=== PATIENT | female | born 1975 | race Caucasian/White ===

== ENCOUNTER 2021-11-01 15:31 | Emergency (ER) | payer BC, SELFPAY ==
[2021-11-01 15:37] VITALS: BP 134/83; PULSE 77; RESP 18; TEMP 36.2; O2SAT 100; BMI 28.7
[2021-11-01 18:35] LABS: Appearance Urine Cloudy (Clear); Bilirubin Urine Negative (Negative); Blood Urine 1+ (Negative); Color Urine Yellow (Yellow); Glucose Urine Negative (Negative); Ketones Urine Negative (Negative); Leukocyte Esterase Urine 1+ (Negative); Nitrite Urine Negative (Negative); Protein Urine Negative (Negative); Urobilinogen Urine 0.2 (0.2-1.0)
[2021-11-01 18:51] LABS: Bacteria Urine Few; Squamous Epithelial Cell Urine Few (None-Few)
[2021-11-01] MEDS: 0.9 % SODIUM CHLORIDE 1000 ml 1,000 ML IV (18:52)
[2021-11-01 18:59] LABS: Lactate* 1.1 mmol/L (0.5-1.9)
[2021-11-01 19:03] LABS: Basophils Absolute Auto 0.04 K/uL (0.00-0.30); Basophils Percent Auto 0.6 % (0.0-3.0); Eosinophils Absolute Auto 0.09 K/uL (0.00-0.50); Eosinophils Percent Auto 1.3 % (0.0-7.0); Hematocrit 37.9 % (33.0-51.0); Hemoglobin* 12.8 gm/dL (12.0-16.0); Immature Granulocytes Abs Auto 0.03 K/uL (0.00-0.30); Lymphocytes Absolute Auto 1.86 K/uL (0.90-2.90); Lymphocytes Percent Auto 27.8 % (20-44); Mean Corpuscular HGB Conc 34 gm/dL (32-36); Mean Corpuscular Hemoglobin 30 pg (26-34); Mean Corpuscular Volume 89 fL (80-100); Monocytes Percent Auto 8.8 % (0.0-11.0); Neutrophils Absolute Auto 4.09 K/uL (1.7-7.0); Neutrophils Percent Auto 61.1 % (42.0-72.0); Platelet Count* 277 K/uL (140-440); RDW Coefficient of Variation % 13.2 % (11.5-15.5); Red Blood Count 4.25 m/uL (4.00-5.20)
[2021-11-01 19:21] LABS: Slide Review Reflex No
[2021-11-01 19:24] LABS: Chloride* 108 mmol/L (96-114); Potassium* 3.9 mmol/L (3.6-5.1); Sodium* 138 mmol/L (135-149)
[2021-11-01 19:26] LABS: Alanine Aminotransferase* 47 U/L (4-35); Alkaline Phosphatase* 85 U/L (40-150); Aspartate Amino Transferase* 55 U/L (12-35); Bilirubin Direct* 0.4 mg/dL (0.0-0.5); Bilirubin Total* 0.8 mg/dL (0.1-1.5); Total Protein* 7.3 g/dL (6.0-8.3)
[2021-11-01 19:27] LABS: Blood Urea Nitrogen* 10 mg/dL (5-24); Carbon Dioxide* 25 mmol/L (20-32); Creatinine* 0.6 mg/dL (0.5-1.5); Est. Creatinine Clearance* 99.02; Estimated Glomerular Filt Rate 110.65
[2021-11-01 19:28] LABS: Calcium* 8.5 mg/dL (8.4-10.6); Glucose* 102 mg/dL (60-115)
[2021-11-01 19:39] LABS: C Reactive Protein* < 0.5 mg/dL (0.5-1.0)
[2021-11-01 20:33] VITALS: BP 135/78; PULSE 79; RESP 16; TEMP 36.7; O2SAT 98
[2021-11-01 20:38] VITALS: BP 135/78; PULSE 78; RESP 16; TEMP 36.7
--- NOTE | 2021-11-01 23:54 | ED.GENADULT ---
HPI - General Adult General Date Seen: 11/01/21 Chief complaint: Post Op Complication Stated complaint: Post OP Complication, Hernia Time Seen by Provider: 11/01/21 18:18 Source: patient History of Present Illness HPI narrative: Patient is 46-year-old woman who is 1 week post umbilical hernia repair with mesh. She says that she did well postoperatively, did have a lot of pain on postop day 1 and 2 and took Percocet at that time. She has since discontinued the Percocet. Returned to work 4 days ago. She has been eating and drinking fine, initially had some trouble with constipation but has been having bowel movements. She just felt kind of bloated, has had some nausea and fatigue. Does feel like she has had more abdominal pain, although she has not needed pain medications. She has not had any fevers, has not had chills. No urinary symptoms. She stayed home from work today because of fatigue and nausea. She is not sure how she is supposed to feel at this point but became concerned that she is feeling worse rather than better. Has not noted any redness or drainage around the incision. Has an appointment by phone scheduled with Dr. Gunter next week. Related Data Home Medications Medication Instructions Recorded Confirmed No Known Home Medications 11/01/21 11/01/21 Allergies Allergy/AdvReac Type Severity Reaction Status Date / Time prochlorperazine AdvReac Mild Verified 11/01/21 15:37 [From Compazine] Review of Systems Status of ROS: Reports: 10 or more systems reviewed and unremarkable except as noted in History and below [facility] Social History Smoking Status: Former smoker Do you use any of these nicotine containing products: None Second hand tobacco smoke exposure: No How often do you have a drink containing alcohol: monthly or less How many standard drinks containing alcohol do you have on a typical day: 1 or 2 How often do you have six or more drinks on one occasion: Never AUDIT-C Alcohol total score: 1 Non-prescribed substance use: denies use service: No Exam Narrative: Exam Narrative: Vital signs as noted above. In general, an alert, nontoxic woman. Head: Normocephalic, atraumatic. Eyes: Pupils are equal reactive. Conjunctivae are normal. ENT: Mucous membranes are moist. Neck: Supple without lymphadenopathy. Heart: Regular rate and rhythm. No murmur or rub. Lungs: Clear bilaterally. No increased work of breathing, crackles or wheezes. Abdomen: Umbilical incision is intact, Steri-Strips in place. No erythema or drainage. Some induration felt underneath the umbilicus and some tenderness in that area. Otherwise the abdomen is nontender. Bowel sounds are present. No rebound guarding or rigidity. Extremities: Well perfused. No edema. No calf tenderness. Pulses intact. Neurologic: Patient is alert and oriented to person and place. Speech is fluent. Face is symmetric. Moves all extremities equally. Affect: Normal. Skin: Warm and dry. Well perfused. Const: Vital Signs, click to edit/add: Vital Signs - 24 hr 11/01/21 15:37 11/01/21 20:33 11/01/21 20:38 Temperature 97.1 F L 98.0 F 98.0 F Pulse Rate 78 Pulse Rate [Right Pulse Oximeter] 77 79 Respiratory Rate 18 16 16 Blood Pressure 135/78 Blood Pressure [Ri ght Upper Arm] 134/83 135/78 Pulse Oximetry 100 98 Documenting provider has reviewed patient's vital signs: yes Course Course Hospital Course: Patient felt that she has had some difficulty keeping up with fluids over the past few days, and felt she might benefit from IV fluids, so we did establish an IV and gave her a L of normal saline. She declined the need for anything for pain or nausea at this time. A urinalysis today was unremarkable, 2-5 red cells and 2-5 white cells. No ketones. Other labs were reassuring. Her white blood cell count is 6.7 with a normal diff. Hemoglobin is 12.8. CRP is less than 0.5. Lactate is normal. Liver function show mild elevations in her transaminases but is otherwise normal. Basic metabolic panel is entirely within normal limits. Considerations for her symptoms would include possible developing infection or abscess, seroma, hematoma, small-bowel obstruction, or unrelated intra-abdominal illness such as appendicitis, colitis, diverticulitis, cholecystitis, urinary tract infection, ovarian pathology etcetera. Given normal labs and an entirely benign abdominal exam with the exception of some tenderness around her incision, I am inclined to think that her symptoms are probably postoperative in nature. Therefore, I did talk with Dr. Craven who was on-call for General surgery. I reviewed the patient's exam findings as well as her labs with her. As her labs are entirely normal, she did not feel that imaging was needed at this time. We did discuss that she has some induration and tenderness around the surgical site, and because the patient has mesh in that area Dr. Craven did recommend being conservative and starting antibiotics. I have discussed all this with the patient. We have reviewed reasons to return, for example if she would develop worsening, pain, or new symptoms such as fever, vomiting, etcetera. I did tell her that we would like her to follow up with Dr. Gunter in person in clinic rather than by phone so that she can be re-evaluated. I prescribe some Zofran for her in case she has more difficulty with nausea with the doxycycline. Consultations Consultation #1: General surgery Vital Signs Vital signs: Initial Vital Signs Temperature 97.1 F L 11/01/21 15:37 Temperature Source Temporal Artery Scan 11/01/21 15:37 Pulse Rate 77 11/01/21 15:37 Pulse Rhythm 11/01/21 15:37 Respiratory Rate 18 11/01/21 15:37 Blood Pressure 134/83 11/01/21 15:37 Blood Pressure Mean 100 11/01/21 15:37 Blood Pressure Position Sitting 11/01/21 15:37 Pulse Oximetry 100 11/01/21 15:37 Oxygen Delivery Method 11/01/21 15:37 Vital Signs Temperature 97.1 F L 11/01/21 15:37 Pulse Rate 77 11/01/21 15:37 Respiratory Rate 18 11/01/21 15:37 Blood Pressure 134/83 11/01/21 15:37 Pulse Oximetry 100 11/01/21 15:37 Temperature 98.0 F 11/01/21 20:38 Pulse Rate 78 11/01/21 20:38 Respiratory Rate 16 11/01/21 20:38 Blood Pressure 135/78 11/01/21 20:38 Pulse Oximetry 98 11/01/21 20:33 Medical Decision Making Medical Records Medical records reviewed: Yes I reviewed the patient's medical records Lab Data Lab results reviewed: Yes I reviewed the patient's lab results Labs: Lab Results 11/01/21 11/01/21 11/01/21 Range/Units 18:16 18:51 18:51 WBC 6.70 (4.50-11.00) K/uL RBC 4.25 (4.00-5.20) m/uL Hgb 12.8 (12.0-16.0) gm/dL Hct 37.9 (33.0-51.0) % MCV 89 (80-100) fL MCH 30 (26-34) pg MCHC 34 (32-36) gm/dL RDW Coeff of [place]wood 13.2 (11.5-15.5) % Plt Count 277 (140-440) K/uL Neut % (Auto) 61.1 (42.0-72.0) % Lymph % (Auto) 27.8 (20-44) % [place] % (Auto) 8.8 (0.0-11.0) % Eos % (Auto) 1.3 (0.0-7.0) % Baso % (Auto) 0.6 (0.0-3.0) % Neut # (Auto) 4.09 (1.7-7.0) K/uL Lymph # (Auto) 1.86 (0.90-2.90) K/uL [place] # (Auto) 0.60 (0.00-0.90) K/UL Eos # (Auto) 0.09 (0.00-0.50) K/uL Baso # (Auto) 0.04 (0.00-0.30) K/uL Abs Immat Gran (auto) 0.03 (0.00-0.30) K/uL Sodium (135-149) mmol/L Potassium (3.6-5.1) mmol/L Chloride (96-114) mmol/L Carbon Dioxide (20-32) mmol/L BUN (5-24) mg/dL Creatinine (0.5-1.5) mg/dL Estimated Creat Clear Glucose (60-115) mg/dL Lactate (0.5-1.9) mmol/L Calcium (8.4-10.6) mg/dL Total Bilirubin 0.8 (0.1-1.5) mg/dL Direct Bilirubin 0.4 (0.0-0.5) mg/dL AST 55 H (12-35) U/L ALT 47 H (4-35) U/L Alkaline Phosphatase 85 (40-150) U/L C-Reactive Protein < 0.5 L (0.5-1.0) mg/dL Total Protein 7.3 (6.0-8.3) g/dL Albumin 4.0 (3.3-5.0) g/dL Urine Color Yellow (Yellow) Urine Appearance Cloudy A (Clear) Urine pH 5.0 (5.0-8.5) Ur Specific [place] 1.020 (1.000-1.030) Urine Protein Negative (Negative) Urine Glucose (UA) Negative (Negative) Urine Ketones Negative (Negative) Urine Blood 1+ A (Negative) Urine Nitrite Negative (Negative) Urine Bilirubin Negative (Negative) Urine Urobilinogen 0.2 (0.2-1.0) Ur Leukocyte Esterase 1+ A (Negative) Urine RBC 2-5 A (0-2) Urine WBC 2-5 (0-5) Ur Squamous Epith Cells Few (None-Few) Urine Bacteria Few A (None) 11/01/21 11/01/21 Range/Units 18:51 18:53 WBC (4.50-11.00) K/uL RBC (4.00-5.20) m/uL Hgb (12.0-16.0) gm/dL Hct (33.0-51.0) % MCV (80-100) fL MCH (26-34) pg MCHC (32-36) gm/dL RDW Coeff of [place]wood (11.5-15.5) % Plt Count (140-440) K/uL Neut % (Auto) (42.0-72.0) % Lymph % (Auto) (20-44) % [place] % (Auto) (0.0-11.0) % Eos % (Auto) (0.0-7.0) % Baso % (Auto) (0.0-3.0) % Neut # (Auto) (1.7-7.0) K/uL Lymph # (Auto) (0.90-2.90) K/uL [place] # (Auto) (0.00-0.90) K/UL Eos # (Auto) (0.00-0.50) K/uL Baso # (Auto) (0.00-0.30) K/uL Abs Immat Gran (auto) (0.00-0.30) K/uL Sodium 138 (135-149) mmol/L Potassium 3.9 (3.6-5.1) mmol/L Chloride 108 (96-114) mmol/L Carbon Dioxide 25 (20-32) mmol/L BUN 10 (5-24) mg/dL Creatinine 0.6 (0.5-1.5) mg/dL Estimated Creat Clear 99.02 Glucose 102 (60-115) mg/dL Lactate 1.1 (0.5-1.9) mmol/L Calcium 8.5 (8.4-10.6) mg/dL Total Bilirubin (0.1-1.5) mg/dL Direct Bilirubin (0.0-0.5) mg/dL AST (12-35) U/L ALT (4-35) U/L Alkaline Phosphatase (40-150) U/L C-Reactive Protein (0.5-1.0) mg/dL Total Protein (6.0-8.3) g/dL Albumin (3.3-5.0) g/dL Urine Color (Yellow) Urine Appearance (Clear) Urine pH (5.0-8.5) Ur Specific [place] (1.000-1.030) Urine Protein (Negative) Urine Glucose (UA) (Negative) Urine Ketones (Negative) Urine Blood (Negative) Urine Nitrite (Negative) Urine Bilirubin (Negative) Urine Urobilinogen (0.2-1.0) Ur Leukocyte Esterase (Negative) Urine RBC (0-2) Urine WBC (0-5) Ur Squamous Epith Cells (None-Few) Urine Bacteria (None) Discharge Plan Discharge Clinical Impression: Post-op pain Patient Disposition: Home, Self-Care Condition: Stable Instructions: Pain Management After Surgery (DC) Additional Instructions: Antibiotic as prescribed. Ibuprofen and Tylenol as needed, Zofran if needed for nausea. Follow-up with Dr. Gunter in clinic next week in person for recheck. Return to the emergency department for worsening symptoms such as more severe pain, vomiting, fever, or other new symptoms. Prescriptions: No Action No Known Home Medications 0RF Follow Up/Referrals: Provider,Not a Local [Primary Care Provider] - Stand Alone Forms: [employer] Info Instructions
== END 2021-11-01 20:40 | disposition home or self-care (01) ==
PROVIDERS: Emergency Provider Emergency Medicine
DX: G89.18 Other acute postprocedural pain (principal); R11.0 Nausea
CPT/HCPCS: 96360; 36415; 80048; 80076; 81001; 81003; 81015; 83605; 85025; 86140; 87086; 99284; J7030

== ENCOUNTER 2022-02-08 23:36 | Outpatient (CLI) | payer BC, SELFPAY ==
--- OUTSIDE RECORDS SUMMARY | 2022-02-16 10:53 | XMS_ITS | Encounter Summary ---
:1975 Author Organization [facility] Address [address] [place] [address] Care Team Providers Name Role Phone Unavailable Primary Care Provider Unavailable Reason for Referral Outpatient (Routine) - Closed Specialty Diagnoses / Procedures Referred By Contact Refer red To Contact Video Medicine Diagnoses Dysphonia Rst [address] [address] Referral ID Status Reason Start Date Expiration Date Visits Requ ested Visits Authorized [id number] Closed 06/26/2020 06/26/2021 1 1 Scheduling Instructions Please call patient to schedule a follow up appointment in 2 weeks. Thanks TRUCTION LINEMAN Reason for Visit Outpatient (Routine) - Closed Specialty Diagnoses / Procedures Referred By Contact Refer red To Contact Video Medicine Diagnoses Dystonia R[address] [address] Referral ID Status Reason Start Date Expiration Date Visits Requ ested Visits Authorized [id number] Closed 06/23/2020 06/23/2021 1 1 Encounter Details Date Type Department Care Team Description 06/26/2020 Telemedicine Department of Brisa Siddiqi (Latoya sanchez Dx); Otorhinolaryngology in [place], [place] CCC-PENETRATION TESTER [address] [place] [address] [place] [address] [place], [place] [phone] Social History Tobacco Use Types Packs/Day Years [...] more drinks on one Never 06/26/2020 occasion? Social Isolation Answer Date Recorded In a typical week, how many times do you More than three viry es a week 06/26/2020 talk on the phone with family, friends, or neighbors? How often do you get together with friends Once a week 06/26/2020 or relatives? How often do you attend confucianist or 1 to 4 times per year 06/06 [employer] services? Do you belong to any clubs or No 06/26/2020 organizations such as confucianist groups, unions, fraternal or athletic groups, or [...] of this encounter Progress Notes Alyssa Siddiqi CCC-PENETRATION TESTER - 06/26/2020 9:30 AM CST Referring provider Plan of care: Patient will be seen for 3-5 sessions per week for six weeks with goals of improving phonatory quality for functional communication in activities of daily living. Consult/treatnent conducted via real-time audio/video technology by Alyssa Siddiqi M.S.,DAVID-PENETRATION TESTER in [facility] to patient in home for follow up . This Video Visit was performed during the COVID- emergency, when many states had issued [id number] at home orders. In-person treatment was unavailable. [...] plan; patient expressed understanding of the content. TRUCTION LINEMAN documented in this encounter Plan of Treatment Scheduled Referrals Name Type Priority Associated Diagnoses Order S chedule Video anyplace Outpatient Referral Routine Dysphonia Expect ed: visit 07/10/2020 (Approximate), Expires: 06/26/2023 documented as of this encounter Visit Diagnoses Diagnosis Dysphonia - Primary Dystonia documented in this encounter
--- OUTSIDE RECORDS SUMMARY | 2022-02-16 10:53 | XMS_ITS | Encounter Summary ---
:1975 Author Organization [place] Address [address] [place] [address] Support Name Relationship Address Phone Leanne Wu Unavailable Unavailable [phone] [place] [address] Team Providers Name Role Phone [facility] Primary Care Provider Rafaela Higuera PA-C Unavailable [phone] Encounter Details Date Type Department Care Team Description 01/04/2021 Travel Social History Tobacco Use Types Packs/Day Years Used Date Smoking Tobacco: Never Smokeless Tobacco: Never Alcohol Use Standard Drinks/Week Comments Yes 0 (1 standard drink = 0.6 oz pure alcoho l) rare Sex Assigned at Date Recorded Not on [...] documented as of this encounter Care Teams Linux Server Engineer Relationship Specialty Start Date End Date Clinic - [facility] PCP - General 09/16/18 [address] [place] [address] Rafaela Higuera PA-C Assigned PCP 12/31/20 01/06/21 [address] [place] [address] documented as of this encounter
--- OUTSIDE RECORDS SUMMARY | 2022-02-16 10:53 | XMS_ITS | Encounter Summary ---
:1975 Author Organization [place] Address [address] [facility] [place] [address] Care Team Providers Name Role Phone [facility] Primary Care Provider Rafaela Higuera PA-C Unavailable [phone] Encounter Details Date Type Department Care Team [...] documented as of this encounter Care Teams Filenet Developer Relationship Specialty Start Date End Date Clinic - [facility] PCP - General 09/16/18 [address] [place] [address] Rafaela Higuera PA-C Assigned PCP 12/31/20 01/06/21 [address] [facility] [place] [address] documented as of this encounter
--- OUTSIDE RECORDS SUMMARY | 2022-02-16 10:53 | XMS_ITS | Encounter Summary ---
:1975 Author Organization [place] Address [address] [facility] [place] [address] Care Team Providers Name Role Phone [facility] Primary Care Provider Asha Urbina PA-C Unavailable [phone] Reason for Visit Reason Comments Hernia Encounter Details Date Type Department Care Team Description 09/15/2020 Office Visit [facility] Ingrid Gillespie Fa tigue, unspecified type (Primary Dx); [facility] [place] KINDERGARTEN INSTRUCTIONAL ASSISTANT Depression, unspecified depression type; [address] [place] [address] Iron d eficiency anemia, unspecified iron deficiency anemia type; [place] [address] Umbilical hernia without obstruction and without gangrene [place], [place] [id number] [phone] Social History Tobacco Use Types Packs/Day Years [...] No follow-ups on file. Ingrid Gillespie CNP [facility] Pema is a 45 year old who [...] Ferritin 6 (L) 8 - 252 09/18/2020 [facility] ng/mL 1:21 PM CDT [facility] Specimen Anatomical Collection Method Collection Time Receive d Time (Source) Location / / Volume Laterality Blood 09/15/2020 1:47 PM 1:48 CDT PM CDT Ingrid Gillespie KINDERGARTEN INSTRUCTIONAL ASSISTANT LAB - BLOOD ORDERABLES Performing Organization Address City/State/ZIP Code Phon e Number [facility] [address] [place] [address] Vitamin D Deficiency (09/15/2020 1:47 PM CDT) athologist Signature Vitamin D 23 20 - 75 09/18/2020 [facility] Deficiency ug/L 4:50 PM CDT [facility] Comment: Season, race, dietary intake, and treatm ent affect the concentration of 77-aptvisi-Jvqbpkb D. Values may decreas e during winter [...] 1 1:48 CDT PM CDT Ingrid Gillespie LYUDMILA LAB - BLOOD ORDERABLES Performing Organization Address [facility] e Number [address] Follicle stimulating hormone (09/15/2020 1:47 PM CDT) P athologist Signature FSH 7.2 IU/L 09/18/2020 [facility] 3:17 PM CDT [facility] Comment: FSH Reference Range Female: Follicular ?2.5-10.2 ?Mid-cycle ? 3.4-33.4 ?Luteal ?1.5-9.1 ?Postmenopausal ??23.0-116.3 Specimen Anatomical Collection Method Collection Time Receive d Time (Source) Location / / Volume Laterality Blood 09/15/2020 1:47 PM 1 1:48 CDT PM CDT Ingrid Julia Beaversannemarie COREAS LAB - BLOOD ORDERABLES Performing Organization Address [facility] e Number [address] (ABNORMAL) CBC with platelets (09/15/2020 1:47 PM CDT) Analysis Performed At Patho logist Time Signature WBC 7.1 4.0 - 11.0 09/15/2020 [facility] 10e9/L 2:04 PM CDT [facility] RBC Count 4.26 3.8 - 5.2 09/15/2020 [facility] 10e12/L 2:04 PM CDT [facility] Hemoglobin 10.7 (L) 11.7 - 09/15/2020 [facility] 15.7 g/dL 2:04 PM CDT [facility] Hematocrit 33.8 (L) 35.0 - 09/15/2020 [facility] 47.0 % 2:04 PM CDT [facility] MCV 79 78 - 100 09/15/2020 [place] fl 2:04 PM CDT [facility] [place] MCH 25.1 (L) 26.5 - 09/15/2020 [facility] 33.0 pg 2:04 PM CDT [facility] MCHC 31.7 31.5 - 09/15/2020 [facility] 36.5 g/dL 2:04 PM CDT [facility] RDW 16.9 (H) 10.0 - 09/15/2020 [facility] 15.0 % 2:04 PM CDT [facility] [place] Platelet Count 269 150 - 450 09/15/2020 [place] 10e9/L 2:04 PM CDT [facility] [place] Specimen Anatomical Collection Method Collection Time Receive d Time (Source) Location / / Volume Laterality Blood 09/15/2020 1:47 PM 1 1:48 CDT PM CDT Ingrid Gillespie CNP LAB - BLOOD ORDERABLES Performing Organization Address City/[facility]/ZIP Code Phon e Number [facility] [place] [address] TSH with free T4 reflex (09/15/2020 1:47 PM CDT) athologist Signature TSH 1.28 0.40 - 4.00 09/18/2020 [facility] mU/L 3:12 PM CDT HOSPITAL Specimen Anatomical Collection Method Collection Time Receive d Time (Source) Location / / Volume Laterality Blood 09/15/2020 1:47 PM 1 1:48 CDT PM CDT Ingrid Gillespie CNP LAB - BLOOD ORDERABLES Performing Organization Address City/State/ZIP Code Phon e Number [facility] [address] [place], [place] [address] [facility] [address] [place], [place] [address] [phone] documented in this encounter Visit Diagnoses Diagnosis Fatigue, unspecified type - Primary Depression, unspecified depression type Iron deficiency anemia, unspecified iron deficiency anemia type Umbilical hernia without obstruction and without gangrene documented in this encounter Additional Health Concerns Assessment Noted Time PHQ-9 Depression Total Score: 12 09/17/2018 1:32 PM CD T documented as of this encounter Care Teams Pbx Supervisor Relationship Specialty Start Date End Date Clinic - [facility] PCP - General 09/16/18 [address] [place] [address] Asha Urbina PA-C Assigned PCP 08/13/20 09/27/20 [address] [place] [address] documented as of this encounter
--- OUTSIDE RECORDS SUMMARY | 2022-02-16 10:53 | XMS_ITS | Encounter Summary ---
:1975 Author Organization [place] Address [address] [facility] [address] Care Team Providers Name Role Phone [facility] Primary Care Provider Asha Urbina PA-C Unavailable [phone] Encounter Details Date Type Department Care Team Description 08/24/2020 [facility] [address] [place] [address] Social History Tobacco Use Types Packs/Day [...] documented as of this encounter Care Teams It Sales Consultant Relationship Specialty Start Date End Date [facility] PCP - General 09/16/18 [address] [place] [address] Asha Urbina PA-C Assigned PCP 08/13/20 09/27/20 [address] [place] [address] documented as of this encounter
--- OUTSIDE RECORDS SUMMARY | 2022-02-16 10:53 | XMS_ITS | Encounter Summary ---
:1975 Author Organization [place] Address [address] [facility] [place] [address] Care Team Providers Name Role Phone [facility] - [facility] Primary Care Provider Rafaela Higuera PA-C Unavailable [phone] Reason for Visit Reason Comments Consult Hernia Encounter Details Date Type Department Care Team Description 01/05/2021 Office Visit [facility] Luis E Mtz, Umbi lical hernia Surgery Clinic without obstruction [place] [address] and without gangrene [address] [place] [address] [phone] Social History Tobacco Use Types Packs/Day Years Used Date Smoking Tobacco: Never Smokeless Tobacco: Never Tobacco Cessation: Counseling Given: Yes Alcohol Use [...] Other Topics Concern ??? Parent/sibling w/ CABG, CA or angioplasty before 65F 55M? No Social [...] Gatherings with Friends and Family: ??? Attends Rastafarian Services: ??? Active Member of Clubs or [...] documented as of this encounter Care Teams Laborer Orchard Relationship Specialty Start Date End Date Clinic - [facility] PCP - General 09/16/18 [address] [place] [address] Rafaela Higuera PA-C Assigned PCP 12/31/20 01/06/21 [address] [address] documented as of this encounter
--- OUTSIDE RECORDS SUMMARY | 2022-02-16 10:53 | XMS_ITS | Encounter Summary ---
:1975 Author Organization [place] Address [address] [facility] [place] [address] Care Team Providers Name Role Phone [facility] Primary Care Provider Lily Rincon [...] documented as of this encounter Care Teams Deputy Head Relationship Specialty Start Date End Date Clinic - [facility] PCP - General 09/16/18 [address] [place] [address] Lily Rincon PA-C Assigned PCP 12/19/19 08/12/[address] [place] [address] [place] [address] documented as of this encounter
--- OUTSIDE RECORDS SUMMARY | 2022-02-16 10:53 | XMS_ITS | Encounter Summary ---
:1975 Author Organization [facility] Address [address] [place] [address] Care Team Providers Name Role Phone Unavailable Primary Care Provider Unavailable Reason for Referral Speech Pathology (Routine) - Closed Specialty Diagnoses / Procedures Referred By Contact Refer red To Contact Diagnoses Dystonia [facility] Procedures FOOD CRITIC Voice evaluation P.A.-C. [address] [place] [address] Referral ID Status Reason Start Date Expiration Date Visits Requ ested Visits Authorized [id number] Closed 06/23/2020 06/23/2021 1 1 ING CLEANER Reason for Visit Appointment Request (Routine) - Closed Specialty Diagnoses / Procedures Referred By Contact Refer red To Contact Otorhinolaryngology Diagnoses Laryngitis Referral ID Status Reason Start Date Expiration Date Visits Requ ested Visits Authorized [id number] Closed 06/20/2020 06/20/2021 1 1 Encounter Details Date Type Department Care Team Description 06/23/2020 Comprehensive Visit Department of Nicky Arredondo ia Otorhinolaryngology in [place], (Prim pearl Dx) [place], [place] ESME, P.A.-CXiao [address] [facility] [address] [place] [address] [place], [place] [phone] Social History Tobacco Use Types Packs/Day Years [...] or relatives? How often do you attend baptist or 1 to 4 times per year 06/06 yazidi services? Do you belong to any clubs or No 06/26/2020 organizations such as baptist groups, unions, fraternal or athletic groups, or [...] to speak. 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 My wonderful colleague Alyssa iSddiqi has agreed to see her today and [...] patient and in same day care coordination ING CLEANER documented in this encounter Plan of Treatment Not on filedocumented as of this encounter Visit Diagnoses Diagnosis Dysphonia - Primary documented in this encounter
--- OUTSIDE RECORDS SUMMARY | 2022-02-16 10:53 | XMS_ITS | Encounter Summary ---
:1975 Author Organization [place] Address [address] [facility] [place] [address] Care Team Providers Name Role Phone [facility] Primary Care Provider Asha UrbinaC Unavailable [phone] Ingrid Gillespie CNP Unavailable Rafaela Higuera-C Unavailable Ingrid Gillespie CNP Unavailable Luis E Mtz MD Unavailable Meg Vigil-C Unavailable [phone] Encounter Details Date Type Department Care Team Description 08/25/2020 Documentation Only INTERFACED REPORT Unknown, Provider Social [...] documented as of this encounter Care Teams Transplant Rn Relationship Specialty Start Date End Date Clinic - [facility] PCP - General 09/16/18 Daily [address] [place] [address] Asha Urbina Assigned PCP 08/13/20 09/27/20 JEREMY Dumont [address] [place] [address] Ingrid Gillespie CNP Assigned PCP 09/28/20 12/30/20 [address] [place], [place] [id number] Rafaela Higuera Assigned PCP 12/31/20 1 JEREMY Ugarte [address] [facility] [address] [place], [place] [address] Ingrid Gillespie CNP Assigned PCP 01/28/21 [address] [place], [place] [id number] Luis E Mtz MD Assigned Surgical Provider 01/14/[address] [place], [place] [id number] Meg Vigil, Assigned PCP 01/07/21 01/27/21 JEREMY [address] [place], [place] [id number] documented as of this encounter
--- OUTSIDE RECORDS SUMMARY | 2022-02-16 10:53 | XMS_ITS | Clinical Summary ---
:1975 Author Organization [facility] Address [address] [place] [address] Care Team Providers Name Role Phone Unavailable Primary Care Provider Unavailable Source Comments Patient records contain information from all sites at [facility]. For routine questions regarding patient records, call [phone] during business hours, M-F 8:00 AM - 5:00 PM Central Time. Record requests for emergency care only can be directed to [phone] at any time.[facility] Medications Medication Sig Dispensed Refills Start Date [...] or relatives? How often do you attend jehovah's witness or 1 to 4 times per year 06/06 cheondoism services? Do you belong to any clubs or No 06/26/2020 organizations such as jehovah's witness groups, unions, fraternal or athletic groups, or [...] Dates Phone Address Type / Group [facility] [id number] [phone] [address] [address] [address] [facility] [address] [place] [address] [phone] (Home) [place] [address]
--- OUTSIDE RECORDS SUMMARY | 2022-02-16 10:53 | XMS_ITS | Encounter Summary ---
:1975 Author Organization [place] Address [address] [facility] [place] [address] Care Team Providers Name Role Phone [facility] Primary Care Provider Ingrid Gillespie CNP Unavailable Encounter Details Date Type Department Care [...] documented as of this encounter Care Teams Harness Repairer Relationship Specialty Start Date End Date Clinic - [facility] PCP - General 09/16/18 [address] [place] [address] Ingrid Gillespie, LYUDMILA Assigned PCP 09/28/20 12/30/20 [address] [place] [address] documented as of this encounter
--- OUTSIDE RECORDS SUMMARY | 2022-02-16 10:53 | XMS_ITS | Encounter Summary ---
:1975 Author Organization [place] Address [address] [facility] [place] [address] Care Team Providers Name Role Phone [facility] [place] [facility] Primary Care Provider Asha Urbina PA-C Unavailable [phone] Encounter Details Date Type Department Care Team [...] documented as of this encounter Care Teams Occupational Therapy Department Chair Relationship Specialty Start Date End Date [facility] [place] [facility] PCP - General 09/16/18 [address] [place], [place] [phone] Asha Urbina PA-C Assigned PCP 08/13/20 09/27/20 [address] [place], [place] [id number] documented as of this encounter
--- OUTSIDE RECORDS SUMMARY | 2022-02-16 10:53 | XMS_ITS | Encounter Summary ---
:1975 Author Organization [place] Address [address] [facility] [place] [address] Care Team Providers Name Role Phone [facility] Primary Care Provider Ingrid Gillespie CNP Unavailable Luis E Mtz MD Unavailable Encounter Details Date Type Department Care Team Description 06/13/2021 Travel Social History Tobacco Use Types Packs/Day Years Used Date Smoking Tobacco: Never Smokeless Tobacco: Never Alcohol Use Standard Drinks/Week Comments Yes 0 (1 standard drink = 0.6 oz pure alcoho l) rare Sex Assigned at Date Recorded Not on file COVID-19 Exposure Response Date Recorded In the last month, have you been in contact with No / Unsure 06/13/2021 6:08 PM FLAP LINING BINDER someone who was confirmed or suspected to have Coronavirus / COVID-19? documented as of this encounter Plan of Treatment Not on filedocumented as of this encounter Visit Diagnoses Not on filedocumented in this encounter Additional Health Concerns Assessment Noted Time PHQ-9 Depression Total Score: 12 09/17/2018 1:32 PM CD T documented as of this encounter Care Teams Cub Reporter Relationship Specialty Start Date End Date [facility] PCP - General 09/16/18 [place] [address] [address] Ingrid Gillespie, LYUDMILA Assigned PCP 01/28/[address] [place] [phone] Luis E Mtz MD Assigned Surgical Provider 01/14/21 Alivia [facility] [address] [place] [address] documented as of this encounter
--- OUTSIDE RECORDS SUMMARY | 2022-02-16 10:53 | XMS_ITS | Encounter Summary ---
:1975 Author Organization [place] Address [address] [facility] [place] [address] Support Name Relationship Address Phone Leanne Wu Unavailable Unavailable [phone] [place], [facility] Team Providers Name Role Phone [facility] Primary Care Provider Ingrid Gillespie HOMEBIRTH MIDWIFE Unavailable Reason for Referral Diagnostic Imaging Ultrasound (Routine) - Closed Specialty Diagnoses / Procedures Referred By Contact Refer red To Contact Diagnoses DUB (dysfunctional uterine bleeding) Meg Vigil Procedures US Pelvic Complete with Transvaginal JEREMY Christopher [address] [place] [address] Referral ID Status Reason Start Date Expiration Date Visits Requ ested Visits Authorized [id number] Closed 12/28/2020 12/28/2021 1 1 onsultation (Routine) - Closed Specialty Diagnoses / Procedures Referred By Contact Refer red To Contact Medical Oncology Diagnoses Iron deficiency anemia due to chronic blood loss Meg Vigil Rh Ca ncer Cl cc JEREMY Christopher [address] Daily [place] [address] [address] [facility] [place] [address] Phone: Fax: Referral ID Status Reason Start Date Expiration Date Visits Requ ested Visits Authorized [id number] Closed 12/28/2020 12/28/2021 1 1 onsultation (Routine) - Closed Specialty Diagnoses / Procedures Referred By Contact Refer red To Contact Surgery Diagnoses Umbilical hernia without obstruction and without gangrene Meg Vigil Surgical Consult JEREMY Christopher [address] [facility] [address] [facility] [address] [place] [address] [place] [address] Phone: Fax: Referral ID Status Reason Start Date Expiration Date Visits Requ ested Visits Authorized [id number] Closed 12/28/2020 12/28/2021 1 1 Reason for Visit Reason Comments Fatigue Encounter Details Date Type Department Care Team Description 12/28/2020 Office Visit [facility] Meg Vigil Fatigu e, unspecified type (Primary Dx); Clinic [place] JEREMY Christopher Fever, unspecified fever cause; [facility] [address] [place] [address] a [facility] S [facility] (dysfunctional uterine bleeding); [place], [place] [address] Iron deficiency anemia due to chronic bl ood loss; [address] Umbilical hernia without obstruction and without gangrene; [phone] Lipid scr eening Social History Tobacco Use [...] since that time. Covid19 negative. Was [place] sister for wedding so considered alternative etiology including rule out lyme. Reports main residualsymptom is fatigue/achiness (about 50% better) and this could be exacerbated by chronic underlying iron deficiency anemia. Unfortunately continues to suffer with DUB despite previous trials with her BOILING OFF WINDER of OCPs and uterine ablation. Is supposed to be on iron supplementation, but admits she never takes this due to intolerance (nausea and reports makes her feel presyncopal vs gives her bad anxiety that she will have a negative reaction). Repeat labs for stability, but discussed picking up where BOILING OFF WINDER left off and will repeat pelvic US [...] week (around 01/04/2021). Meg Vigil PA-C [facility] Andrea Mcadams is a 45 year old who [...] nose or sore throat. Had COVID in Nov and received both immunizations since, but felt [...] for duration. Had uterine ablation completed 09/2019 [facility] BOILING OFF WINDER. Unfortunately, tells me this didn't work and [...] not gone back to recheck things with BOILING OFF WINDER yet. Sochx: daughter in and out of the hospital with anorexia; gets hospitalized requires feeding tube. 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 For additional lab test information, [email or web address] is an excellent reference. Please contact the clinic at with any further questions or concerns. Sincerely, Meg Vigil PA-C [facility] documented in this encounter Plan of Treatment Scheduled Orders Name Type Priority Associated Diagnoses Order S chedule US Pelvic Complete with Imaging Routine DUB (dysfunctiona l Expected: 12/28/2020 Transvaginal uterine bleeding) (Approxima te), Expires: 2021 Scheduled Referrals Name Type Priority Associated Diagnoses Order S chedule Adult General Surg Referral Routine Umbilical hernia [...] direct LDL Fasting (12/28/2020 5:52 PM CDT) P athologist Signature Cholesterol 176 <200 mg/dL 12/29/2020 [...] City/State/ZIP Code Phon e Number [facility] [place], [place] [phone] [place] [facility] [address] [place] [address] Lab (no room number, 1st floor of clinic) [facility] [place], [place] [phone] [facility] [address] [[email or web address]] [facility] [address] Lab (no room number, 1st floor of clinic) Anti Nuclear Ramone IgG by IFA with Reflex (12/28/2020 5:52 PM CDT) [facility] Method Time Signature JAVIER interpretation Negative Negative 01/01/2021 [facility] 1:53 PM CDT SPECIALTY CORE Comment: Negative: ?<1:40 Borderline Positive: ?? 1:40 - 1:80 Positive: ?>1:80 Specimen Anatomical Collection Method / Collection Time Recei romeo Time (Source) Location / Volume Laterality Blood STRUCTURE OF RIGHT Venipuncture / 12/28/2020 5:52 08/2 10/2020 5:53 UPPER LIMB / Unknown PM CDT PM CDT Unknown Meg Vigil PA-C LAB - BLOOD ORDERABLES Performing Organization Address City/[facility]/ZIP Code Phon e Number [place] [address] CORE/PROT/ENDO Core/Prot/Endo [address] [facility], Room 3-[address] [facility] SPECIALTY [facility] [place], [place] [phone] Lab [phone], [facility] [address] [facility], Room L271-5 Rheumatoid factor (12/28/2020 5:52 PM CDT) P athologist Signature Rheumatoid <7 <20 IU/mL 01/01/2021 [facility] Factor 9:24 AM CDT SPECIALTY CORE Specimen Anatomical Collection Method / Collection Time Recei romeo Time (Source) Location / Volume Laterality Blood STRUCTURE OF RIGHT Venipuncture / 12/28/2020 5:52 12/04 5:53 UPPER LIMB / Unknown PM CDT PM CDT Unknown Meg Vigil PA-C LAB - BLOOD ORDERABLES Performing Organization Address City/[facility]/ZIP Code Phon e Number [place] [address] CORE/PROT/ENDO Core/Prot/Endo [address] [facility], Room 3-580 [facility] SPECIALTY [facility] [place] [place] Lab [address], [facility] [address] [facility], Room L271-5 TSH with free T4 reflex (12/28/2020 5:52 PM CDT) P athologist Signature TSH 1.50 0.40 - 4.00 [...] City/State/ZIP Code Phon e Number [facility]AT[facility] [place], [place] [phone] [place] [facility] [address] Lab (no room number, 1st floor of clinic) [facility] [place], [place] [phone] [facility] [address] [[email or web address]] [facility] [address] Lab (no room number, 1st floor of clinic) Lyme Disease Ramone with reflex to WB Serum (12/28/2020 5:52 PM CDT) P athologist Signature Lyme Disease 0.19 <0.90 01/01/2021 [facility] Antibodies 1:32 PM CDT SPECIALTY CORE Total [...] STRUCTURE OF RIGHT Venipuncture / 12/28/2020 5:52 08/10/2020 5:53 UPPER LIMB / Unknown PM CDT PM CDT Unknown Meg Vigil PA-C LAB - BLOOD ORDERABLES Performing Organization Address City/State/ZIP Code Phon e Number [place] [address] CORE/PROT/ENDO Core/Prot/Endo 500 [facility] J Building, Room 3-580 [facility] SPECIALTY CORE [facility] [place] Lab [address], [place] [address] [facility], Room L271-5 CRP, inflammation (12/28/2020 5:52 PM CDT) Analysis Performed At Patho logist Time Signature CRP Inflammation <2.9 0.0 - 8.0 12/29/2020 [facility] Y mg/L 11:33 PM CDT Specimen Anatomical Collection Method / Collection Time Recei romeo Time (Source) Location / Volume Laterality Blood STRUCTURE OF RIGHT Venipuncture / 12/28/2020 5:52 08/10/2020 5:53 UPPER LIMB / Unknown PM CDT PM CDT Unknown Meg Vigil PA-C LAB - BLOOD ORDERABLES Performing Organization Address City/[facility] [place]on [place] [address] [phone] Lab 500 [facility] Building, Room 3-580 [place] [address], Lab [facility] 500 [facility], Room 3580 ESR: Erythrocyte sedimentation rate (12/28/2020 [...] LAB - BLOOD ORDERABLES Performing Organization Address [facility] Phon e Number RV [facility]ORY [facility] [place] [address] [phone] [facility] [address] [place] [address] S. E. Lab (no room number, 1st floor of clinic) [place] [address], [facility] [address] [place] [address] S. E. Lab (no room number, 1st [...] STRUCTURE OF RIGHT Venipuncture / 12/28/2020 5:52 08/10/2020 5:53 UPPER LIMB / Unknown PM CDT PM CDT Unknown Meg Vigil PA-C LAB - BLOOD ORDERABLES Performing Organization Address City/[facility]/ZIP [facility] Phon e Number [facility] [place], [place] [phone] [place] [facility] [address] [place] [address] Lab (no room number, 1st floor of clinic) [facility] [place], [place] [phone] [facility] [address] [[email or web address]] [facility] [address] Lab (no room number, 1st floor of clinic) (ABNORMAL) Ferritin (12/28/2020 5:52 PM CDT) P athologist Signature Ferritin 6 (L) 8 - 252 12/29/2020 [facility] ng/mL 2:36 PM CDT Specimen Anatomical Collection Method / Collection Time Recei romeo Time (Source) Location / Volume Laterality Blood STRUCTURE OF RIGHT Venipuncture / 12/28/2020 5:52 08/10/2020 5:53 UPPER LIMB / Unknown PM CDT PM CDT Unknown Meg Vigil PA-C LAB - BLOOD ORDERABLES Performing Organization Address [facility] Phon e Number [facility] [place], [place] [phone] [place] [facility] [address] [place] [address] Lab (no room number, 1st floor of clinic) [facility] [place], [place] [phone] [facility] [address] [[email or web address]] [facility] [address] Lab (no room number, 1st floor [...] City/State/ZIP Code Phon e Number [facility] [place] [address] [phone] [facility] [address] [place] [address] S. E. Lab (no room number, 1st floor of clinic) [place] [address], [phone] [facility] [address] [place] [address] S. E. Lab (no room number, 1st [...] documented as of this encounter Care Teams Magnetic Resonance Technologist Relationship Specialty Start Date End Date Clinic - [facility] PCP - General 09/16/18 [address] [place] [address] Ingrid Gillespie, HOMEBIRTH MIDWIFE Assigned PCP 09/28/20 12/30/20 [address] [place] [address] documented as of this encounter
--- OUTSIDE RECORDS SUMMARY | 2022-02-16 10:53 | XMS_ITS | Encounter Summary ---
:1975 Author Organization [place] Address [address] [facility] [place] [address] Care Team Providers Name Role Phone [facility] Primary Care Provider Ingrid Gillespie CNP Unavailable [...] documented as of this encounter Care Teams Security Systems Integrator Relationship Specialty Start Date End Date Clinic - [facility] PCP - General 09/16/18 [place] [address] [address] Ingrid Gillespie, LYUDMILA Assigned PCP 01/28/[address] [place] [address] [phone] Luis E Mtz MD Assigned Surgical Provider 01/14/21 Alivia TRIMBLE [facility] [address] [place], [place] [phone] documented as of this encounter
--- OUTSIDE RECORDS SUMMARY | 2022-02-16 10:53 | XMS_ITS | Encounter Summary ---
:1975 Author Organization [facility] Address [address] [place] [address] Care Team Providers Name Role Phone Unavailable [...] or relatives? How often do you attend anglican or 1 to 4 times per year 06/06 evangelical services? Do you belong to any clubs or No 06/26/2020 organizations such as anglican groups, unions, fraternal or athletic groups, or [...] minutes do you engage in exercise at is 20 min 06/26/2020 level? Stress Answer [...] 06/23/2020 9:15 Results for this EXAM AM HOME HEALTH SPEECH THERAPIST procedure are i n the results section. documented in this encounter Results Direct Laryngoscopy-Otorhinolaryngology Image Exam (06/23/2020 9:15 AM HOME HEALTH SPEECH THERAPIST) Specimen (Source) Anatomical Collection Method Collection Time Re ceived Time Location / / Volume Laterality 06/23/2020 9:11 AM HOME HEALTH SPEECH THERAPIST Narrative [facility] - 06/23/2020 9:44 AM HOME HEALTH SPEECH THERAPIST This order has been created and auto-finalized to support the import of images acquired without order. The clini consueol documentation to support these images can be found on the encounter corby t produced images. Provider Not In System IMG NON RAD IMAGING PROCEDUR ES Performing Organization Address City/State/ZIP Code Phon e Number I[facility] NA documented in this encounter Visit Diagnoses Not on filedocumented in this encounter
--- OUTSIDE RECORDS SUMMARY | 2022-02-16 10:53 | XMS_ITS | Clinical Summary ---
:1975 Author Organization [place] Address [address] [place] [address] Care Team Providers Name Role Phone [facility] Primary Care Provider Ingrid Gillespie CLINICAL DATA MANAGEMENT MANAGER Unavailable Luis E Mtz MD Unavailable Allergies Active Allergy Reactions Severity Noted Date Comments Prochlorperazine Medium 08/05/2013 anxiety Oseltamivir Hives 07/31/2016 Medications Medication Sig Dispensed Refills Start Date End Date Status buPROPion (WELLBUTRIN Take 1 tablet (300 90 tablet 3 1 Active XL) 300 MG 24 hr mg) by mouth every tabletIndications: morning Fatigue, unspecified type, Depression, unspecified depression type, Anxiety Active Problems Problem Noted Date Dysphonia 06/24/2020 Panic attack 12/17/2017 H/O LEEP 08/07/2016 Overview: 09/24/10: [facility] pap LEEP done, results u nknown. 07/31/16: NIL pap, Neg HR HPV result. Pl an cotest in 1 year per provider. 03/24/18 Patient is lost to pap tracking follow-up. Iron deficiency anemia, unspecified iron deficiency an emia type 09/14/2015 Nausea 03/01/2014 Bulge of lumbar disc without myelopathy 09/15/2013 Acute low back pain with disc symptoms, duration less than 6 weeks 09/08/2013 Abnormal Pap smear 10/02/2010 Overview: 09/2010 [facility], referred for colp, plans f/u with [facility] NUTRITIONALIST Ovarian cyst 09/24/2010 Menorrhagia 09/24/2010 Resolved Problems Problem Noted Date Resolved Date Anemia 07/30/2010 09/14/2015 Immunizations Name Administration Dates Next Due COVID-19,PF,Moderna 09/21/2020, 08/24/2020 TDAP Vaccine (Adacel) 12/03/2010 Family History Medical History Relation Comments Hypertension Daughter Family History Negative Father Family History Negative Mother Family History Negative Sister 2 Breast Cancer No family hx of Cancer - colorectal No family hx of Relation Status Comments Daughter Father Alive Mother Alive Sister Social History Tobacco Use Types Packs/Day Years Used Date Smoking Tobacco: Never Smokeless Tobacco: Never Tobacco Cessation: Counseling Given: Yes Alcohol Use Standard Drinks/Week Comments Yes 0 (1 standard drink = 0.6 oz pure alcoho l) rare Sex Assigned at Date Recorded Not on file Last Filed Vital Signs Vital Sign Reading [...] Mass Index 29.7 01/05/2021 9:39 AM CDT Plan of Treatment Health Maintenance Due Date Last Done Comments ADVANCE CARE PLANNING 1975 ANNUAL REVIEW OF HM ORDERS 1973 CT COLONOGRAPHY 1973 FIT-DNA (Cologuard) 1975 FIT 1975 FLEX SIG 1975 HEPATITIS B IMMUNIZATION (1 1973 of 3 - 3-dose series) MAMMO SCREENING 1975 COLONOSCOPY 08/20/1983 COLORECTAL CANCER SCREENING 08/20/1983 YEARLY PREVENTIVE VISIT 07/31/2017 07/31/2016 HPV TEST 08/01/2019 07/31/2016 PAP 08/01/2019 07/31/2016, 09/24/2010, 08/03/2010 COVID-19 Vaccine (3 - 11/16/2020 09/21/2020, Booster for Moderna series) 08/24/2020 INFLUENZA VACCINE (#1) 2022 LIPID 12/28/2025 12/28/2020 DTAP/TDAP/TD IMMUNIZATION (3 10/13/2031 10/12/2021, - Td or Tdap) 12/03/2010 HEPATITIS C SCREENING Completed 08/31/2014 HIV SCREENING Completed 03/02/2018 PHQ-9 Discontinued 09/17/2018, 08/27/2018, 08/31/2014 IPV IMMUNIZATION Aged Out No longer eligi ble based on patient's age to complete this to pic MENINGITIS IMMUNIZATION Aged Out No longe r eligible based on patient's age to complete this to pic Pneumococcal Vaccine: Aged Out No longer eligible based Pediatrics (0 to 5 Years) on pat ient's age to and At-Risk Patients (6 to compl ete this topic 64 Years) Insurance Payer Benefit Plan / Subscriber ID Effective Dates Phone Addre ss Type Group BCBS BCBS OF [place] [id number] 2016-Lester [phone] [address] [address] [place] [place] [address] (Home) [place] [id number] Alyssa Aguillon Personal/Family Self [address] (Home) [place] [phone] [place] (Work) [id number] Care Teams Hogshead Filler Relationship Specialty Start Date End Date Clinic - [facility] PCP - General 09/16/18 Daily [address] [place], [place] [phone] Ingrid Gillespie, CLINICAL DATA MANAGEMENT MANAGER Assigned PCP 01/28/21 [address] [place], [place] [phone] Luis E Mtz MD Assigned Surgical Provider 01/14/21 [address] [facility] [address] [place], [place] [address]
--- OUTSIDE RECORDS SUMMARY | 2022-02-16 10:53 | XMS_ITS | Encounter Summary ---
:1975 Author Organization [place] Address [address] [facility] [place] [address] Care Team Providers Name Role Phone [facility] Primary Care Provider Ingrid Gillespie CNP [...] documented as of this encounter Care Teams Repairer Screen Crusher Relationship Specialty Start Date End Date Clinic - [facility] PCP - General 09/16/18 [address] [place] [address] Ingrid Gillespie, LYUDMILA Assigned PCP 09/28/20 12/30/20 [address] [place] [address] documented as of this encounter
--- OUTSIDE RECORDS SUMMARY | 2022-02-16 10:53 | XMS_ITS | Encounter Summary ---
:1975 Author Organization [place] Address [address] [facility] [place] [address] Care Team Providers Name Role Phone [facility] Primary Care Provider Asha Urbina PA-C Unavailable [phone] Encounter Details Date Type Department Care Team [...] documented as of this encounter Care Teams Photo Machine Operator Relationship Specialty Start Date End Date [facility] PCP - General 09/16/18 [address] [place], [place] [phone] Asha Urbina PA-C Assigned PCP 08/13/20 09/27/20 [address] [place], [place] [phone] documented as of this encounter
--- OUTSIDE RECORDS SUMMARY | 2022-02-16 10:53 | XMS_ITS | Encounter Summary ---
:1975 Author Organization [place] Address [address] [facility] [place] [address] Care Team Providers Name Role Phone [facility] Primary Care Provider Ingrid Gillespie CNP Unavailable [...] documented as of this encounter Care Teams Radar Scientist Relationship Specialty Start Date End Date Clinic - [facility] PCP - General 09/16/18 [place] [address] [address] Ingrid Gillespie, LYUDMILA Assigned PCP 01/28/[address] [place] [address] Luis E Mtz MD Assigned Surgical Provider 01/14/21 Alivia TRIMBLE [facility] [address] [place], [place] [address] documented as of this encounter
--- OUTSIDE RECORDS SUMMARY | 2022-02-16 10:53 | XMS_ITS | Encounter Summary ---
:1975 Author Organization [place] Address [address] [facility] [place] [address] Care Team Providers Name Role Phone Clinic - [facility] Primary Care Provider Ingrid Gillespie BARBER APPRENTICE Unavailable Reason for Visit Reason Comments Arthritis Encounter Details Date Type Department Care Team Description 12/18/2020 Virtual Visit [facility] Dusty Patel Viral u pper Clinic Ryley Ugarte, respiratory tract [address] Kathie Cedeno PA-C infection ([place], [address] S Dx) Ryley [place] [address] [address] [place] [address] Social History Tobacco Use Types Packs/Day Years [...] documented as of this encounter Progress Notes Rafaela Higuera PA-C - 12/18/2020 5:30 PM CDT Pema is a 45 year old who is being evaluated via a billable telephone visit. What phone number would you like to be contacted at? [phone] [facility] Assessment and Plan: (J06.9) Viral upper respiratory tract infection (primary encounter diagnosis) Comment: febrile, was at wedding over the weekend, no focal complaints other than URI sxs Plan: Symptomatic COVID-19 Virus (Coronavirus) by PCR Also recommend she be evaluated in the clinic by pcp this week for febrile illness, discussed reasons to be seen in the ED Rafaela Patel PA-C [facility] RYLEY Mcadams is a 45 year old [...] documented as of this encounter Care Teams Certified Driver Examiner Relationship Specialty Start Date End Date Clinic - [facility] PCP - General 09/16/18 [address] [place] [address] Ingrid Gillespie, BARBER APPRENTICE Assigned PCP 09/28/20 12/30/[address] [place] [address] documented as of this encounter
--- OUTSIDE RECORDS SUMMARY | 2022-02-16 10:53 | XMS_ITS | Encounter Summary ---
:1975 Author Organization [place] Address [address] [facility] [place] [address] Care Team Providers Name Role Phone [facility] Primary Care Provider Rafaela Higuera PA-C Unavailable [phone] Reason for Referral Mental Health Outpatient (Routine) - Closed Specialty Diagnoses / Procedures Referred By Contact Refer red To Contact Diagnoses Depression, unspecified depression type Anxiety Ingrid Gillespie CNP [address] [place] [address] Referral ID Status Reason Start Date Expiration Date Visits Requ ested Visits Authorized [id number] Closed 01/04/2021 01/04/2022 1 1 Reason for Visit Reason Comments RECHECK Encounter Details Date Type Department Care Team Description 01/04/2021 Office Visit [facility] Ingrid Gillespie An xiety (Primary Dx); Clinic [place] [facility]UBBER HAND Fatigue, unspecified type; [address] [facility] [address] [facility] Depres festus, unspecified depression type [facility] [address] [place], [place] [address] [phone] Social History Tobacco Use Types Packs/Day Years [...] Sign Reading Time Taken Comments Blood Pressure 128/72 01/04/2021 5:36 PM CDT Pulse 99 01/04/2021 5:36 PM CDT Temperature 36.6 ??C (97.9 ??F) 01/04/2021 5:36 PM CDT Respiratory Rate 16 01/04/2021 5:36 PM CDT Oxygen Saturation 100% 01/04/2021 5:36 PM CDT Inhaled Oxygen Concentration - - Weight 78.7 kg (173 lb 8 oz) 01/04/2021 5:36 PM CDT Height 162.6 cm (5' 4) 01/04/2021 5:36 PM CDT Body Mass Index 29.78 01/04/2021 5:36 PM CDT documented in this encounter Progress Notes Ingrid Gillespie, LYUDMILA - 01/04/2021 5:30 PM CDT Assessment & Plan Problem List Items Addressed This Visit None Visit Diagnoses Anxiety - Primary Relevant Medications buPROPion (WELLBUTRIN XL) 300 MG 24 hr tablet Other Relevant Orders MENTAL HEALTH REFERRAL - Adult; Outpatient Treatment; Individual/Couples/Family/Group Therapy/Health Psychology; [facility] ; We will contact you to schedule the appointment or please call with any questions Fatigue, unspecified type Relevant Medications buPROPion (WELLBUTRIN XL) 300 MG 24 hr tablet Depression, unspecified depression type Relevant Medications buPROPion (WELLBUTRIN XL) 300 MG 24 hr tablet Other Relevant Orders MENTAL HEALTH REFERRAL - Adult; Outpatient Treatment; Individual/Couples/Family/Group Therapy/Health Psychology; [facility] ; We will contact you to schedule the appointment or please call with any questions Prescription drug management No LOS data to display Time spent doing chart review, history and exam, documentation and further activities per the note See Patient Instructions No follow-ups on file. Ingrid Gillespie CNP [facility] PRIOR BLESSING Mcadams is a 45 year old who presents for the following health issues HPI Follow up from a week ago . Seen by another provider for fatigue, labs ok with exception of iron and hgb levels. Discussed supplementing. Could discuss iron infusion. Can also discuss with OBGYN since heavy periods. Feels like mood is doing worse. Would like to use medication to help. No suicidal thoughts. Interested in therapy to discuss ongoing issues contributing to her anxiety. Review of Systems Constitutional, HEENT, cardiovascular, pulmonary, GI, , musculoskeletal, neuro, skin, endocrine and psych systems are negative, except as otherwise noted. Objective There were no vitals taken for this visit. There is no height or weight on file to calculate BMI. Physical Exam GENERAL: healthy, alert and no [...] no gross musculoskeletal defects noted, no edema documented in this encounter Plan of Treatment Scheduled Referrals Name Type Priority Associated Diagnoses Order S [facility] REFERRAL - Referral Routine Depression, unsp ecified Expected: 01/04/2021 Adult; Outpatient depression typ e (Approximate), Treatment; Anxiety Expires: 2021 Individual/Couples/Famil y/Group Therapy/Health Psychology; [facility] ; We will contact you to schedule the appointment or please call with any questions documented as of this encounter Visit Diagnoses Diagnosis Anxiety - Primary Anxiety state, unspecified Fatigue, unspecified type Depression, unspecified depression type documented in this encounter Additional Health Concerns Assessment Noted Time PHQ-9 Depression Total Score: 12 09/17/2018 1:32 PM CD T documented as of this encounter Care Teams Orthopedic Designer Relationship Specialty Start Date End Date Clinic - [facility] PCP - General 09/16/18 [address] [place] [address] Dusty Patel, Rafaela Ugarte PA-C Assigned PCP 12/31/20 01/06/21 [address] [place] [address] documented as of this encounter
--- OUTSIDE RECORDS SUMMARY | 2022-02-16 10:53 | XMS_ITS | Encounter Summary ---
:1975 Author Organization [place] Address [address] [facility] [place] [address] Care Team Providers Name Role Phone Clinic - [facility] Primary Care Provider Ingrid Gillespie RECONSTRUCTIVE DENTIST Unavailable Luis E Mtz MD Unavailable Reason for Visit Reason Comments Abdominal Pain Encounter Details Date Type Department Care Team Description 02/07/2021 [facility] Hernandez Schultz, dominal pain, left [facility] lower quadrant [address] [facility] [place], [place] [address] [address] [phone] [address] [place], [place] [address] (Wo rk) Social History Tobacco Use Types [...] in the amount of wet diapers/urine. Your infant or child starts to have [...] directed by your provider today. Before using ngqy-xpc-vsnqfkgnetiyoqoapw, ask your provider and make sure to [...] times daily for 5 days Scribe Disclosure: Cha Mccrary, am serving as a scribe at 5:23 [...] EXAM: CT ABDOMEN PELVIS W CONTRAST LOCATION: [facility] DATE/TIME: 02/07/2021 8:18 PM INDICATION: Left flank [...] EXAM: CT ABDOMEN PELVIS W CONTRAST LOCATION: [facility] DATE/TIME: 02/07/2021 8:18 PM INDICATION: Left flank [...] COMPLETE W TRANSVAGINAL AND DOPPLER LIMITED LOCATION: [facility] DATE/TIME: 02/07/2021 6:35 PM INDICATION: Acute onset [...] COMPLETE W TRANSVAGINAL AND DOPPLER LIMITED LOCATION: [facility] DATE/TIME: 02/07/2021 6:35 PM INDICATION: Acute onset [...] reflex to Culture (02/07/2021 6:29 PM CDT) [facility] Method Time Signature Color Urine Straw Colorless, 02/07/2021 [facility] Straw, Light 6:58 PM CDT Yellow, Yellow Appearance Urine Clear Clear 02/07/2021 [facility] Y 6:58 PM CDT Glucose Urine Negative Negative 02/07/2021 [facility] mg/dL 6:58 PM CDT Bilirubin Urine Negative Negative 02/07/2021 [facility] 6:58 PM CDT Ketones Urine Negative Negative 02/07/2021 [facility]ORATORY mg/dL 6:58 PM CDT Specific [place] 1.007 1.003 - 02/07/2021 [facility] Urine 1.035 6:58 PM CDT Blood Urine Large (A) Negative 02/07/2021 [facility]ORATORY 6:58 PM CDT pH Urine 5.0 5.0 - 7.0 02/07/2021 [facility] 6:58 PM CDT Protein Albumin Negative [...] RBC Urine 69 (H) <=2 /HPF 02/07/2021 [facility] 6:58 PM CDT WBC Urine 2 [...] CDT CATCH PROCEDURE / Unknown Unknown Narrative [facility] - 02/07/2021 6:58 PM CDT Urine Culture not indicated Hernandez Schultz MD LAB - URINE ORDERABLES Performing Organization Address City/State/ZIP Code [place] [address] Care Lab [address] Lab (1st floor, no room number) HCG qualitative Blood (02/07/2021 5:27 PM CDT) Patholo gist Method Time Signature hCG Serum Negative Negative MARGIE 02/07/2021 [facility] Qualitative 6:26 PM CDT Comment: This test is for screening purp oses. Results should be interpreted along with the clinical picture. Confirmation testing is available if warranted by ordering ONV477, HCG Quantitative . Specimen Anatomical Collection Method / Collection Time Recei romeo Time (Source) Location / Volume Laterality Blood STRUCTURE OF RIGHT Venipuncture / 02/07/2021 5:27 10/0 10/2020 5:53 UPPER LIMB / Unknown PM CDT PM CDT Unknown Hernandez Schultz MD LAB - BLOOD ORDERABLES Performing Organization Address City/[facility]/ZIP Code [place] [phone] Care Lab [address] Lab (1st floor, no room number) [...] LAB - BLOOD ORDERABLES Performing Organization Address City/[facility]/ZIP [place] [address] Care Lab [address] Lab (1st floor, no room number) [...] City/State/ZIP Code [place] [phone] Care Lab [address] Lab (1st floor, no room number) (ABNORMAL) CBC with platelets and differential (02/07/2021 3:54 PM CDT) Patholo gist Method Time Signature WBC Count 9.5 [...] City/State/ZIP Code [place] [address] Care Lab [address] Lab (1st floor, no room number) [...] Address City/State/ZIP [place] [address] Care Lab [address] Lab (1st floor, no room number) documented [...] 1739 (New Bag - Provider: Myrna Zafar, DELLA)2022 (Stopped - Provider: Syeda Bettencourt RN) Intravenous, [...] dose ketorolac (TORADOL) injection 15 mg (COMPLETED) 1908 (Given - Provider: Syeda Bettencourt, DELLA) 15 [...] Irritant. ondansetron (ZOFRAN) injection 4 mg (COMPLETED) 1744 (Given - Provider: Myrna Zafar RN) 4 mg, Intravenous, ONCE, Administer over 2-5 Minutes, On Fri02/07/21 at 1735, For 1 dose, Irritant. documented in this encounter Additional Health Concerns Assessment Noted Time PHQ-9 Depression Total Score: 12 09/17/2018 1:32 PM CD T documented as of this encounter Care Teams Communications And Signals Supervisor Relationship Specialty Start Date End Date Clinic - [facility] PCP - General 09/16/18 [place] [address] [place], [place] [phone] Ingrid Gillespie, LYUDMILA Assigned PCP 01/28/[address] [place] [phone] Luis E Mtz MD Assigned Surgical Provider 01/14/21 [place] [address] [facility] [address] [place], [place] [phone] documented as of this encounter
--- OUTSIDE RECORDS SUMMARY | 2022-02-16 10:53 | XMS_ITS | Encounter Summary ---
:1975 Author Organization [place] Address [address] [facility] [place] [address] Care Team Providers Name Role Phone [facility] Primary Care Provider Asha Urbina PA-C Unavailable [phone] Encounter Details Date Type Department Care Team Description 09/21/2020 [facility] Facundo Palacios, Vaccination [address] [place] [address] [place] [address] [phone] Social History Tobacco Use Types Packs/Day Years [...] documented as of this encounter Care Teams Community Health Agent Relationship Specialty Start Date End Date [facility] PCP - General 09/16/18 [address] [place] [address] Asha Urbina PA-C Assigned PCP 08/13/20 09/27/20 [address] [place] [address] documented as of this encounter
--- OUTSIDE RECORDS SUMMARY | 2022-02-16 10:53 | XMS_ITS | Encounter Summary ---
:1975 Author Organization [facility] Address [address] [place] [address] Care Team Providers Name Role Phone Unavailable Primary Care Provider Unavailable Reason for Referral Outpatient (Routine) - Closed Specialty Diagnoses / Procedures Referred By Contact Refer red To Contact Video Medicine Diagnoses Dystonia [facility] [address] [place] [phone] Referral ID Status Reason Start Date Expiration Date Visits Requ ested Visits Authorized [id number] Closed 06/23/2020 06/23/2021 1 1 Scheduling Instructions W/rlp ER ELECTRONIC SCALE Reason for Visit Speech Pathology (Routine) - Closed Specialty Diagnoses / Procedures Referred By Contact Refer red To Contact Diagnoses Dystonia Julia Arredondo MPAS, [facility] Procedures LOAN SERVICING OFFICER Voice evaluation P.A.-C. [address] [place] [phone] Referral ID Status Reason Start Date Expiration Date Visits Requ ested Visits Authorized [id number] Closed 06/23/2020 06/23/2021 1 1 Encounter Details Date Type Department Care Team Description 06/23/2020 Comprehensive Visit Department of Joselyn Arredondo MPAS, P.A.-CXiao [address] [place] [phone] Dystonia Otorhinolaryngology in [facility], Alyssa Maldonado CCC-LOAN SERVICING OFFICER [address] [place] [phone] [place], [place] [address] [place] [phone] Social History Tobacco Use Types Packs/Day [...] or relatives? How often do you attend faith or 1 to 4 times per year 06/06 quaker services? 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 IV. Voice care: Patient consumes 3 [...] will continue with frequent practice over the weekend and I will see her Friday for a video visit. It was my pleasure to participate in her care. PATIENT EDUCATION Ready to learn, no apparent learning barriers identified; learning preferences include listening. Diagnosis and treatment plan explained; opportunity to ask questions given; patient expressed understanding of content. DIAGNOSIS #1 Dysphonia ER ELECTRONIC SCALE documented in this encounter Plan of Treatment Scheduled Referrals Name Type Priority Associated Diagnoses Order S chedule Video anyplace Outpatient Referral Routine Dystonia Expect ed: visit 06/23/2020 (Approximate), Expires: 06/23/2023 documented as of this encounter Visit Diagnoses Diagnosis Dystonia documented in this encounter
--- OUTSIDE RECORDS SUMMARY | 2022-02-16 10:53 | XMS_ITS | Encounter Summary ---
:1975 Author Organization [facility] Address [address] [place] [address] Care Team Providers Name Role Phone Unavailable Primary Care Provider Unavailable Reason for Referral Outpatient (Routine) - Closed Specialty Diagnoses / Procedures Referred By Contact Refer red To Contact Video Medicine Diagnoses Dysphonia [facility] Ent [address] [phone] Referral ID Status Reason Start Date Expiration Date Visits Requ ested Visits Authorized [id number] Closed 08/02/2020 08/02/2021 1 1 Scheduling Instructions W/rlp on 08/23 at 10 am - patient aware o f this appointment Specialty Diagnoses / Procedures Referred By Contact Refer red To Contact [facility] [address] [phone] Referral ID Status Reason Start Date Expiration Date Visits Requ ested Visits Authorized Scheduling Instructions Please call patient to schedule Reason for Visit Appointment Request (Routine) - Closed Specialty Diagnoses / Procedures Referred By Contact Refer red To Contact Otorhinolaryngology Referral ID Status Reason Start Date Expiration Date Visits Requ ested Visits Authorized [id number] Closed 07/14/2020 07/14/2021 1 1 Encounter Details Date Type Department Care Team Description 08/02/2020 Telemedicine Department of Brisa Siddiqi (Latoya sanchez Otorhinolaryngology in Alyssa Maldonado, Dx) [place], [place] CCC-FARM MACHINERY SET UP MECHANIC [address] [place] [address] [place] [phone] [place], [place] [phone] Social History Tobacco Use Types Packs/Day Years [...] or relatives? How often do you attend mu-ism or 1 to 4 times per year 06/06 religion services? Do you belong to any clubs or No 06/26/2020 organizations such as mu-ism groups, unions, fraternal or athletic groups, or [...] of this encounter Progress Notes Alyssa Siddiqi CCC-FARM MACHINERY SET UP MECHANIC - 08/02/2020 10:00 AM CDT Referring provider Plan of care: Patient will be seen for 3-5 sessions per week for six weeks with goals of improving phonatory quality for functional communication in activities of daily living. Consult/treatnent conducted via real-time audio/video technology by Alyssa Siddiqi M.S.,DAVID-FARM MACHINERY SET UP MECHANIC in [facility] to patient in home for follow up . This Video Visit was performed during the COVID- emergency, when many states had issued tynygtt-en-pulmc/safer at home orders. In-person treatment was unavailable. [...] in conversation as judged by the patient. Continues to practice the voice therapy exercises. However, she reports she has not been doing theseas consistently. She has noted some intermittent hoarseness and will practice the exercises at thosetimes. She also notes that with increased stress she is having increased difficulty with her voice. We discussed the role of stress in voice production. She currently has some challenges in her personal life. I offered the resource of mindful meditation offered here at [facility] in have sent her the link for that. I will also order the stress/relaxation class offered through patient Education. I appreciate their assistance in the care of this patient. It was my pleasure to participate in her care. PATIENT EDUCATION Ready to learn, no apparent learning barriers were identified; learning preferences include listening. Explained diagnosis and treatment plan; patient expressed understanding of the content. documented in this encounter Plan of Treatment Scheduled Referrals Name Type Priority Associated Diagnoses Order S danika Patient Education - Outpatient Referral Routine Dysphonia E xpected: Stress - relax 08/02/2020 education visit (Approximate ), (clinic) Expires: 08/03/[address] Outpatient Referral Routine Dysphonia Expect ed: visit 08/23/2020 (Approximate), Expires: 08/03/2023 documented as of this encounter Visit Diagnoses Diagnosis Dysphonia - Primary documented in this encounter
--- OUTSIDE RECORDS SUMMARY | 2022-02-16 10:53 | XMS_ITS | Encounter Summary ---
:1975 Author Organization [place] Address [address] [facility] [address] Care Team Providers Name Role Phone [facility] Primary Care Provider Ingrid Gillespie COTTON EXPERT Unavailable Luis E Mtz MD Unavailable Encounter [...] documented as of this encounter Care Teams Co Teacher Relationship Specialty Start Date End Date Clinic - [facility] PCP - General 09/16/18 [place] [address] [place] [address] Ingrid Gillespie, LYUDMILA Assigned PCP 01/28/[address] [place] [address] Luis E Mtz MD Assigned Surgical Provider 01/14/21 Alivia [facility] [address] [place], [place] [phone] documented as of this encounter
--- OUTSIDE RECORDS SUMMARY | 2022-02-16 10:53 | XMS_ITS | Encounter Summary ---
:1975 Author Organization [place] Address [address] [facility] [place] [address] Care Team Providers Name Role Phone [facility] Primary Care Provider Ingrid Gillespie CNP Unavailable Encounter Details Date Type Department Care Team Description 12/26/2020 Travel Social History Tobacco Use Types Packs/Day Years Used Date Smoking Tobacco: Never Smokeless Tobacco: Never Alcohol Use Standard Drinks/Week Comments Yes 0 (1 standard drink = 0.6 oz pure alcoho l) rare Sex Assigned at Date Recorded Not on file COVID-19 Exposure Response Date Recorded In the last month, have you been in contact with No / Unsure 12/26/2020 4:48 PM CDT someone who was confirmed or suspected to have Coronavirus / COVID-19? documented as of this encounter Plan of Treatment Not on filedocumented as of this encounter Visit Diagnoses Not on filedocumented in this encounter Additional Health Concerns Assessment Noted Time PHQ-9 Depression Total Score: 12 09/17/2018 1:32 PM CD T documented as of this encounter Care Teams Hvac Design Engineer Relationship Specialty Start Date End Date Clinic - [facility] PCP - General 09/16/18 [address] [place] [address] Ingrid Gillespie, LYUDMILA Assigned PCP 09/28/20 12/30/20 [address] [place] [address] documented as of this encounter
--- OUTSIDE RECORDS SUMMARY | 2022-02-16 10:54 | XMS_ITS | Encounter Summary ---
:1975 Author Organization [place] Address [address] [facility] [place] [address] Care Team Providers Name Role Phone [facility] Primary Care Provider Raghu Meadows CNP Unavailable Encounter Details Date Type Department [...] documented as of this encounter Care Teams Demolition Hammer Operator Relationship Specialty Start Date End Date Clinic - [facility] PCP - General 09/16/18 [address] [place] [address] Raghu Meadows CNP Assigned PCP 09/19/19 12/18/19 [address] [place] [address] documented as of this encounter
--- OUTSIDE RECORDS SUMMARY | 2022-02-16 10:54 | XMS_ITS | Encounter Summary ---
:1975 Author Organization [place] Address [address] [facility] [place] [address] Care Team Providers Name Role Phone [facility] Primary Care Provider Irina Ricci REEL CUTTER Unavailable Encounter Details Date Type Department Care [...] documented as of this encounter Care Teams Hoop Maker Relationship Specialty Start Date End Date Clinic - [facility] PCP - General 09/16/18 [address] [place] [address] Irina Ricci, RODERICK Assigned PCP 09/20/18 01/30/19 [address] [place] [address] documented as of this encounter
--- OUTSIDE RECORDS SUMMARY | 2022-02-16 10:54 | XMS_ITS | Encounter Summary ---
:1975 Author Organization [place] Address [address] [facility] [place] [address] Care Team Providers Name Role Phone [facility] Primary Care Provider Irina Ricci ORE DRYER Unavailable Reason for Visit Reason Comments Urinary Problem Encounter Details Date Type Department Care Team Description 01/26/2019 Office Visit [facility] Dori, Acute cyst itis with hematuria (Primary Dx); Clinic Jorge Krishnamurthy CNP Dysuria; [address] Nonspecific finding on examination of ur ine; JOSELITO Patel [place], [place] Nausea; [id number] Situational depression; [phone] Overweight (BMI 25.0-29.9) (Work) Social History Tobacco [...] cooperative. Diagnostic Test Results: Labs reviewed in [facility] Results for orders placed or performed in visit on 01/26/19 (from the past 24 hour(s)) UA reflex to Microscopic and Culture Result Value Ref Range Color Urine Yellow Appearance Urine Clear Glucose Urine Negative NEG^Negative mg/dL Bilirubin Urine Negative NEG^Negative Ketones Urine Negative NEG^Negative mg/dL Specific [place] Urine <=1.005 1.003 - 1.035 Blood Urine [...] or fail to improve. Raghu Meadows CNP [facility] [place] documented in this encounter Plan of [...] Component Value Ref Test Analysis Performed At [facility] gist Range Method Time Signature Specimen Midstream Urine [...] MICRO GENERAL ORDERABL ES Performing Organization Address City/[facility] Phon e Number INFECTIOUS DISEASES [address] [place] [address] DIAGNOSTIC LABORATORY, [facility] INFECTIOUS DISEASES [address] [place] [address], A DIAGNOSTIC LABORATORY (ABNORMAL) Urine Microscopic (01/26/2019 [...] - URINE ORDERABLES Performing Organization Address City/[facility]/ZIP Code Phon e Number [facility] [place] [address] [place] [phone] (ABNORMAL) UA reflex to Microscopic and Culture (01/26/2019 8:45 AM CDT) [facility] gist Method Time Signature Color Urine Yellow 01/26/2019 [place] 8:53 AM [facility]T [facility] [place] Appearance Urine Clear 01/26/2019 [place] 8:53 AM [facility] [place] Glucose Urine Negative NEG^Negat 01/26/2019 [place] debi mg/dL 8:53 AM CDT [facility] [place] Bilirubin Urine Negative NEG^Negat 01/26/2019 [place] debi 8:53 AM CDT [facility] [place] Ketones Urine Negative NEG^Negat 01/26/2019 [place] debi mg/dL 8:53 AM CDT [facility] [place] Specific [place] <=1.005 1.003 - 01/26/2019 [place] Urine 1.035 8:53 AM [facility]T [facility] [place] Blood Urine Small (A) NEG^Negat 01/26/2019 [place] debi 8:53 AM [facility] [place] pH Urine 5.5 5.0 - 7.0 01/26/2019 [place] pH 8:53 AM [facility] [place] Protein Albumin Negative NEG^Negat 01/26/2019 [place] Urine debi mg/dL 8:53 AM CDT [facility] [place] Urobilinogen 0.2 0.2 - 1.0 01/26/2019 [place] Urine EU/dL 8:53 AM CDT [facility] [place] Nitrite Urine Negative NEG^Negat 01/26/2019 [place] debi 8:53 AM CDT [facility] [place] Leukocyte Small (A) NEG^Negat 01/26/2019 [place] Esterase Urine debi 8:53 AM CDT [facility] [place] Source Midstream 01/26/2019 [place] Urine 8:47 AM CDT [facility] [place] Specimen (Source) Anatomical Collection Method Collection Time Re ceived Time Location / / Volume Laterality Examination of 01/26/2019 8:45 01/26/2019 8:46 midstream urine AM CDT AM CDT specimen (procedure) Raghu Meadows CNP LAB - URINE ORDERABLES Performing Organization Address City/State/ZIP Code Phon e Number [facility] [address] [phone] documented in this encounter Visit Diagnoses [...] documented as of this encounter Care Teams Ballast Cleaning Machine Operator Relationship Specialty Start Date End Date Clinic - [facility] PCP - General 09/16/18 [id number] [place] [address] Irina Ricci, RODERICK Assigned PCP 09/20/18 01/30/19 [address] [place] [address] documented as of this encounter
--- OUTSIDE RECORDS SUMMARY | 2022-02-16 10:54 | XMS_ITS | Encounter Summary ---
:1975 Author Organization [place] Address [address] [facility] [place] [address] Care Team Providers Name Role Phone Clinic - [facility] Primary Care Provider Lily Rincon PA-C Unavailable Reason for Visit Reason Comments Abdominal Pain Encounter Details Date Type Department Care Team Description 08/11/2020 [facility] Matty Jorgensen PA-C Hernia of abdominal [facility] wall [address] [place], [place] [address] [facility] [id number] [place], [place] [phone] (Wo rk) Social History Tobacco Use Types [...] be sent through Care Everywhere. Hernia (Adult) (Luxembourger)documented in this encounter Medications at Time of [...] had a syncopal episode. The patient went [facility] emergency department in [place], [place] and had a CT done. She [...] a daughter who is currently hospitalized at [facility]. Physical Exam Patient Vitals for the past 24 hrs: BP Temp Temp src Pulse Resp SpO2 08/11/201999 (!) 157/94 -- -- 86 -- 97 % 08/11/20 1900 (!) 145/96 -- -- -- -- 100 % 08/11/20 1804 -- 98 ??F (36.7 ??C) Oral -- [...] bolus Interventions: 1846 Dilaudid 0.5 mg IV 184 Zofran 4 mg IV 184 NS, 1 L, IV bolus 1948 Dilaudid [...] with pain and nausea medications as above. Millen patient was safe for discharge to home. [...] EXAM: CT ABDOMEN PELVIS W CONTRAST LOCATION: [facility] DATE/TIME: 08/11/2020 9:17 PM INDICATION: Abdominal pain, [...] EXAM: CT ABDOMEN PELVIS W CONTRAST LOCATION: [facility] DATE/TIME: 08/11/2020 9:17 PM INDICATION: Abdominal pain, [...] ORDERABLES HCG qualitative (08/11/2020 6:59 PM CDT) [facility] Method Time Signature HCG Qualitative Negative NEG^Negati 08/11/2020 [place] Serum ve 8:51 PM CDT [facility] Comment: This test is for screening purposes. ??R esults should be interpreted along with the clinical picture. ??Confirmation te sting is available if warranted by ordering [id number], HCG Quantitative Pregna ncy. Specimen Anatomical Collection Method Collection Time Receive d Time (Source) Location / / Volume Laterality 08/11/2020 6:59 PM 7:14 CDT PM CDT Matty Jorgensen PA-C LAB - BLOOD ORDERABLES Performing Organization Address City/State/ZIP Code Phon e Number [facility] [address] [place], [place] [address] [facility] [address] [phone] (ABNORMAL) Lactic acid whole blood (08/11/2020 6:59 PM CDT) athologist Signature Lactic Acid 0.6 (L) 0.7 - 2.0 08/11/2020 [place] mmol/L 7:23 PM [facility] Specimen Anatomical Collection Method Collection Time Receive d Time (Source) Location / / Volume Laterality Blood 08/11/2020 6:59 PM 7:14 CDT PM CDT Matty Jorgensen PA-C LAB - BLOOD ORDERABLES Performing Organization Address [facility] [address] [place], [place] [address] [place] [address] [phone] Lipase (08/11/2020 6:59 PM CDT) athologist Signature Lipase 115 73 - 393 08/11/2020 [facility] U/L 7:38 PM [facility] Specimen Anatomical Collection Method Collection Time Receive d Time (Source) Location / / Volume Laterality Blood 08/11/2020 6:59 PM 7:14 CDT PM CDT Matty Jorgensen PA-C LAB - BLOOD ORDERABLES Performing Organization Address [facility] [address] [place], [place] [address] [place] [address] [address] [place] [address] [address] [phone] (ABNORMAL) Comprehensive metabolic panel (08/11/2020 6:59 PM CDT) athologist Signature Sodium 136 133 - 144 08/11/2020 [place] mmol/L 7:30 PM [facility] Potassium 3.7 3.4 - 5.3 08/11/2020 [place] mmol/L 7:30 PM [facility] Chloride 104 94 - 109 08/11/2020 [place] mmol/L 7:30 PM [facility] Carbon Dioxide 28 20 - 32 08/11/2020 [place] mmol/L 7:36 PM [facility] Anion Gap 4 3 - 14 08/11/2020 [place] mmol/L 7:36 PM [facility] Glucose 84 70 - 99 08/11/2020 [place] mg/dL 7:36 PM [facility] Urea Nitrogen 15 7 - 30 08/11/2020 [place] mg/dL 7:36 PM [facility] Creatinine 0.88 0.52 - 08/11/2020 [place] 1.04 mg/dL 7:36 PM [facility] GFR Estimate 78 >60 08/11/2020 [place] mL/min/{1. 7:36 PM [facility] 73_m2} HOSPITAL Comment: Non GFR Calc Starting 04/21/2018, serum creatinine ba sed estimated GFR (eGFR) will be calculated using the Chronic Kidney Dise [facility] Epidemiology Collaboration (CKD-EPI) equation. GFR Estimate If >90 >60 mL/min/{1.73_m2} 08/11/2020 7: 36 PM [facility] Comment: GFR Calc Starting 04/21/2018, serum creatinine ba sed estimated GFR (eGFR) will be calculated using the Chronic Kidney Dise [facility] Epidemiology Collaboration (CKD-EPI) equation. Calcium 9.0 8.5 - 10.1 08/11/2020 7:36 PM [facility] mg/dL [facility] Bilirubin Total 1.0 0.2 - 1.3 mg/dL 08/11/2020 7:38 PM [facility] Albumin 3.9 3.4 - 5.0 g/dL 08/11/2020 7:38 PM [facility] Protein Total 8.6 6.8 - 8.8 g/dL 08/11/2020 7:38 PM [facility] Alkaline Phosphatase 77 40 - 150 U/L 08/11/2020 7:38 PM [facility] ALT 62 (H) 0 - 50 U/L 08/11/2020 7:38 PM [facility] AST 53 (H) 0 - 45 U/L 08/11/2020 7:38 PM [facility] Specimen Anatomical Collection Method Collection Time Receive d Time (Source) Location / / Volume Laterality Blood 08/11/2020 6:59 PM 7:14 CDT PM CDT Matty Jorgensen PA-C LAB - BLOOD ORDERABLES Performing Organization Address City/State/ZIP Code Phon e Number [facility] [address] [place], [place] [address] [facility] [address] [place], [place] [address] [facility] [phone] (ABNORMAL) CBC with platelets differential (08/11/2020 6:59 PM CDT) [facility] gist Method Time Signature WBC 7.6 4.0 - 08/11/2020 [facility] 11.0 7:18 PM [facility] 10e9/L [facility] RBC Count 4.53 3.8 - 5.2 08/11/2020 [facility] 10e12/L 7:18 PM [facility] Hemoglobin 11.0 (L) 11.7 - 08/11/2020 [facility] 15.7 g/dL 7:18 PM [facility] Hematocrit 36.6 35.0 - 08/11/2020 [facility] 47.0 % 7:18 PM [facility] MCV 81 78 - 100 08/11/2020 [facility] fl 7:18 PM [facility] MCH 24.3 (L) 26.5 - 08/11/2020 [facility] 33.0 pg 7:18 PM [facility] MCHC 30.1 (L) 31.5 - 08/11/2020 [facility] 36.5 g/dL 7:18 PM [facility] RDW 15.4 (H) 10.0 - 08/11/2020 [facility] 15.0 % 7:18 PM [facility] Platelet Count 371 150 - 450 08/11/2020 [facility] 10e9/L 7:18 PM [facility] Diff Method Automated 08/11/2020 [facility] Method 7:18 PM [facility] % Neutrophils 62.5 % 08/11/2020 [facility] 7:18 PM [facility] % Lymphocytes 27.1 % 08/11/2020 [facility] 7:18 PM [facility] % Monocytes 8.2 % 08/11/2020 [facility] 7:18 PM [facility] % Eosinophils 0.9 % 08/11/2020 [place] 7:18 PM [facility] % Basophils 0.9 % 08/11/2020 [place] 7:18 PM [facility] % Immature 0.4 % 08/11/2020 [place] Granulocytes 7:18 PM [facility] Nucleated RBCs 0 0 /100 08/11/2020 [place] 7:18 PM [facility] Absolute 4.7 1.6 - 8.3 08/11/2020 [place] Neutrophil 10e9/L 7:18 PM [facility] Absolute 2.1 0.8 - 5.3 08/11/2020 [place] Lymphocytes 10e9/L 7:18 PM [facility] Absolute 0.6 0.0 - 1.3 08/11/2020 [place] Monocytes 10e9/L 7:18 PM [facility] Absolute 0.1 0.0 - 0.7 08/11/2020 [place] Eosinophils 10e9/L 7:18 PM [facility] Absolute 0.1 0.0 - 0.2 08/11/2020 [place] Basophils 10e9/L 7:18 PM [facility] Abs Immature 0.0 0 - 0.4 08/11/2020 [place] Granulocytes 10e9/L 7:18 PM [facility] Absolute 0.0 08/11/2020 [place] Nucleated RBC 7:18 PM [facility] Specimen Anatomical Collection Method Collection Time Receive d Time (Source) Location / / Volume Laterality Blood 08/11/2020 6:59 PM 7:14 CDT PM CDT Matty Jorgensen PA-C LAB - BLOOD ORDERABLES Performing Organization Address City/State/ZIP Code Phon e Number [facility] [address] [place], [place] [address] [phone] [facility] [address] [phone] (ABNORMAL) UA with Microscopic reflex to Culture (08/11/2020 6:43 PM CDT) [facility] Method Time Signature Color Urine Straw 08/11/2020 [facility] 7:03 PM [facility] Appearance Urine Clear 08/11/2020 [facility] 7:03 PM [facility] Glucose Urine Negative NEG^Negat 08/11/2020 [place] debi mg/dL 7:03 PM [facility] Bilirubin Urine Negative NEG^Negat 08/11/2020 [place] debi 7:03 PM [facility] Ketones Urine Negative NEG^Negat 08/11/2020 [place] debi mg/dL 7:03 PM [facility] Specific [place] 1.003 1.003 - 08/11/2020 [place] Urine 1.035 7:03 PM [facility] Blood Urine Negative NEG^Negat 08/11/2020 [place] debi 7:03 PM [facility] pH Urine 5.5 5.0 - 7.0 08/11/2020 [place] pH 7:03 PM [facility] Protein Albumin Negative NEG^Negat 08/11/2020 [place] Urine debi mg/dL 7:03 PM [facility] Urobilinogen Normal 0.0 - 2.0 08/11/2020 [place] mg/dL mg/dL 7:03 PM [facility] Nitrite Urine Negative NEG^Negat 08/11/2020 [place] debi 7:03 PM [facility] Leukocyte Negative NEG^Negat 08/11/2020 [place] Esterase Urine debi 7:03 PM [facility] Source Midstream 08/11/2020 [place] Urine 6:43 PM [facility] WBC Urine 2 0 - 5 08/11/2020 [facility] /HPF 7:03 PM [facility] RBC Urine 1 0 - 2 08/11/2020 [facility] /HPF 7:03 PM [facility] Squamous 2 (H) 0 - 1 08/11/2020 [facility] Epithelial /HPF /HPF 7:03 PM [facility] Specimen (Source) Anatomical Collection Method Collection Time Re ceived Time Location / / Volume Laterality Examination of 08/11/2020 6:43 08/11/2020 6:46 midstream urine PM [facility] specimen (procedure) Matty Jorgensen PA-C LAB - URINE ORDERABLES Performing Organization Address City/State/ZIP Code Phon e Number [facility] [address] [place], [place] [address] [facility] [address] [place], [place] [address] [facility] [phone] documented in this encounter Visit Diagnoses Diagnosis [...] Kennedy RN)2158 (Stopped - Provider: Eliza Alba, RN) Intravenous, 1,000 mL, ONCE, at 1,000 mL /hr, Administer over 1 Hours, Fri08/11/20 at 1825, For 1 dose iopamidol (ISOVUE-370) solution 500 mL (COMPLETED) 2120 (Given - Provider: Rosalee Sandhu - Comment: Bulk) 500 mL, Intravenous, ONCE, Fri08/11/20 at 0, For [address] scan flush [...] PRN, m oderate to severe pain, Starting Fri08/11/20 at 1821, For 3 doses, For [...] documented as of this encounter Care Teams Cargo Checker Relationship Specialty Start Date End Date Clinic - [facility] PCP - General 09/16/18 [id number] [place] [address] Lily Rincon PA-C Assigned PCP 12/19/19 08/12/[address] [place] [address] [place] [phone] documented as of this encounter
--- OUTSIDE RECORDS SUMMARY | 2022-02-16 10:54 | XMS_ITS | Encounter Summary ---
:1975 Author Organization [place] Address [address] [facility] [place] [address] Care Team Providers Name Role Phone Clinic - [facility] Primary Care Provider Raghu Meadows SMOOTH PLATER Unavailable Reason for Visit Reason Comments Fatigue Encounter Details Date Type Department Care Team Description 11/10/2019 Emergency [facility] Hernandez King Pain of left upper extremity; [facility] Emergency Dep t MD Sonny Paresthesia; [address] [facility] EMERGENCY PHYSICIANS Generalized muscle weakness [facility] [id number] [address] [facility] [phone] [place], [place] [address] (Wo rk) Social History [...] wipes. You'll find a full list of open developer operator on the EPA website: www.epa.gov/pesticide-registration/wonz-w-srxticaxufnky-zri-jmrrgik-dxgv-cov-2. Cover your mouth and nose with a mask, tissue or wash cloth to avoid spreading germs. Wash your hands and face often. Use soap and water. Caregivers in these groups are at risk for severe illness due to COVID-19: People 65 years and older People who live in a chcf or long-term care facility People with chronic [...] found in many medicines (both prescribed and gzdo-rjq-esthfvw medicines). Read all labels to be sure [...] instructions. Where can I get more information? [facility] - About COVID-19: www.[employer].org/covid19 CDC - What to Do If You're Sick: www.cdc.gov/coronavirus/2019-ncov/about/kveiy-dutd-ihlr.html CDC - Ending Home Isolation: www.cdc.gov/coronavirus/2019-ncov/hcp/yzumsmemcgn-pt-zguj-patients.html CDC - Caring for Someone: www.cdc.gov/coronavirus/2019-ncov/mz-ilq-sks-sick/htyn-ilv-uainipy.html [facility] - Interim Guidance for Hospital Discharge to Home: www.[facility].vt./diseases/coronavirus/hcp/hospdischarge.pdf [facility] clinical trials (COVID-19 research studies): clinicalaffairs.[facility]/zfs-bchapwkj-kyvbsq Below are the COVID-19 hotlines at the Psychiatric hospital ([facility]). Interpreters are available. For health questions: Call [phone] or (7 a.m. to 7 p.m.) For questions about schools and childcare: Call [phone] or (7 a.m. to 7 p.m.) For informational purposes only. Not to replace the advice of your health care provider. Clinically reviewed by the Infection Prevention Team.Copyright ?? 2019 [place] [employer]. All rights reserved. 91[employer]in[employer]ong [id number] - 10/22. documented in this encounter Medications [...] fatigue and chills. On 10/31 pt had [facility] NURSE surgery. Hx of anemia was seen here [...] as of 11/10/2019 7:26 PM Scribe Disclosure: I, Luis M Corcoran, am serving as a scribe on 11/10/2019 at 6:03 PM to personally document services performed by Hernandez King MD based on my observations and the provider's statements to me. Luis M Corcoran 11/10/2019 [facility] EMERGENCY DEPARTMENT Hernandez King MD [...] EKG 12 lead (11/10/2019 7:17 PM CDT) [facility] gist Method Time Signature Interpretation ECG Click View RADIOLOGY Image link RESULTS to view waveform and result Specimen (Source) Anatomical Collection Method Collection Time Re ceived Time Location / / Volume Laterality 11/10/2019 7:17 PM CDT Hernandez King MD ECG ORDERABLES Performing Organization Address City/State/ZIP Code Phon e Number RADIOLOGY RESULTS SARS-CoV-2 COVID-19 Virus (Coronavirus) RT-PCR Nasopharyngeal (11/10/2019 6:49 PM CDT) [facility] Method Time Signature SARS-CoV-2 Nasopharyngeal 11/10/2019 [facility] Virus 9:[address] [facility] Source [facility] SARS-CoV-2 NEGATIVE 11/10/2019 [facility] PCR Result 9:53 PM CDT [facility] Comment: SARS-CoV2 (COVID-19) RNA not de tected, presumed negative. SARS-CoV-2 PCR Testing was performed using the Xpert Xpress SARS-CoV-2 Assay on the [employer] Gene-Xpert 11/10/2019 9:53 PM [facility] Comment Instrument Systems. Addition al information about this Emergency Use Authorization (EUA) [facility] assay can be found via the Lab Guide. [facility] Comment: This test should be ordered for [...] COVID-19. This test was validated by the [facility] Infectious Diseases Diagnostic Laboratory. This laboratory i [...] City/State/ZIP Code Phon e Number [facility] [address] [place] [address] [facility] Symptomatic COVID-19 Virus (Coronavirus) by PCR (11/10/2019 6:49 PM CDT) Component Value Ref Test Analysis Performed At Patholo gist Range Method Time Signature COVID-19 Nasopharyngeal 11/10/2019 [facility] Virus PCR to 6:50 PM CDT [facility] Source COVID-19 Test received-See 11/10/2019 INFECTIOUS Virus PCR to reflex to IDDL 8:51 PM CDT DISEASES U [facility] - test SARS CoV2 DIAGNOSTIC Result (COVID-19) Virus LABORATORY RT-PCR Specimen (Source) Anatomical Collection Method Collection Time Re ceived Time Location / / Volume Laterality Specimen from 11/10/2019 6:49 11/10/2019 nasopharyngeal PM CDT 7:15 PM CDT structure (specimen) Hernandez King MD LAB - MICRO GENERAL ORDERABL ES Performing Organization Address City/[facility]/ZIP [facility] Phon e Number INFECTIOUS DISEASES [address] [place] [address] DIAGNOSTIC LABORATORY, [facility] [address], [place] [address], [facility] [phone] INFECTIOUS DISEASES [address] [place] [address], A DIAGNOSTIC LABORATORY Troponin I (11/10/2019 5:31 PM CDT) P athologist Signature Troponin I ES <0.015 0.000 - 11/10/2019 [facility] 0.045 ug/L 7:17 PM CDT [facility] Comment: The 99th percentile for upper [...] LAB - BLOOD ORDERABLES Performing Organization Address City/[facility]/ZIP Code Phon e Number [facility] [address], [place] [address] [facility] [address] [address], [place] [address] D dimer quantitative (11/10/2019 5:31 PM CDT) P athologist Signature D Dimer <0.3 0.0 - 0.50 11/10/2019 [facility] ug/ml FEU 7:[address] [facility] Comment: This D-dimer assay is intended [...] Address City/State/ZIP Code Phon e Number [place] [address] [address], [place] [address] [facility] [address], [place] [address], [facility] [phone] (ABNORMAL) Routine UA with microscopic (11/10/2019 5:31 PM CDT) Patholo gist Method Time Signature Color Urine Straw 11/10/2019 [facility] 6:07 PM [facility] Appearance Urine Clear 11/10/2019 [facility] 6:07 PM [facility] Glucose Urine Negative NEG^Negat 11/10/2019 [facility] debi mg/dL 6:07 PM [facility] Bilirubin Urine Negative NEG^Negat 11/10/2019 [facility] debi 6:07 PM [facility] Ketones Urine Negative NEG^Negat 11/10/2019 [facility] debi mg/dL 6:07 PM [facility] Specific [place] 1.006 1.003 - 11/10/2019 [facility] Urine 1.035 6:07 PM [facility] Blood Urine Negative NEG^Negat 11/10/2019 [place] debi 6:07 PM [facility] pH Urine 7.0 5.0 - 7.0 11/10/2019 [facility] pH 6:07 PM [facility] Protein Albumin Negative NEG^Negat 11/10/2019 [facility] Urine debi mg/dL 6:07 PM [facility] Urobilinogen Normal 0.0 - 2.0 11/10/2019 [facility] mg/dL mg/dL 6:07 PM [facility] Nitrite Urine Negative NEG^Negat 11/10/2019 [facility] debi 6:07 PM [facility] Leukocyte Moderate (A) NEG^Negat 11/10/2019 [facility] Esterase Urine debi 6:07 PM [facility] Source Midstream 11/10/2019 [facility] Urine 5:31 PM [facility] WBC Urine 4 0 - 5 11/10/2019 [facility] /HPF 6:07 PM [facility] RBC Urine 1 0 - 2 11/10/2019 [facility] /HPF 6:07 PM [facility] Squamous 4 (H) 0 - 1 11/10/2019 [facility] Epithelial /HPF /HPF 6:07 PM [facility] Mucous Urine Present (A) NEG^Negat 11/10/2019 [facility] debi /LPF 6:07 PM [facility] Specimen (Source) Anatomical Collection Method Collection Time Re ceived Time Location / / Volume Laterality Examination of 11/10/2019 5:31 11/10/2019 5:54 midstream urine PM [facility] specimen (procedure) Hernnadez King MD LAB - URINE ORDERABLES Performing Organization Address City/State/ZIP Code Phon e Number [place] [address] [address] [place] [address] [facility] [address] [phone] (ABNORMAL) Basic metabolic panel (11/10/2019 5:31 PM CDT) P athologist Signature Sodium 140 133 - 144 11/10/2019 [facility] mmol/L 6:10 PM [facility] Potassium 3.8 3.4 - 5.3 11/10/2019 [facility] mmol/L 6:10 PM [facility] Chloride 107 94 - 109 11/10/2019 [facility] mmol/L 6:10 PM [facility] Carbon Dioxide 28 20 - 32 11/10/2019 [place] mmol/L 6:16 PM [facility] Anion Gap 5 3 - 14 11/10/2019 [place] mmol/L 6:16 PM [facility] Glucose 86 70 - 99 11/10/2019 [place] mg/dL 6:16 PM [facility] Urea Nitrogen 8 7 - 30 11/10/2019 [place] mg/dL 6:16 PM [facility] Creatinine 0.61 0.52 - 11/10/2019 [facility] 1.04 mg/dL 6:16 PM [facility] GFR Estimate >90 >60 11/10/2019 [place] mL/min/{1. 6:16 PM [facility] 73_m2} HOSPITAL Comment: Non GFR Calc Starting 04/21/2018, serum creatinine ba sed estimated GFR (eGFR) will be calculated using the Chronic Kidney Dise [facility] Epidemiology Collaboration (CKD-EPI) equation. GFR Estimate If >90 >60 mL/min/{1.73_m2} 11/10/2019 6: 16 PM [facility] Comment: GFR Calc Starting 04/21/2018, serum creatinine ba sed estimated GFR (eGFR) will be calculated using the Chronic Kidney Dise [facility] Epidemiology Collaboration (CKD-EPI) equation. Calcium 8.4 (L) 8.5 - 10.1 mg/dL 11/10/2019 6:[address] [facility] Specimen Anatomical Collection Method Collection Time Receive d Time (Source) Location / / Volume Laterality Blood specimen 11/10/2019 5:31 PM 020 5:54 (specimen) CDT PM CDT Hernandez King MD LAB - BLOOD ORDERABLES Performing Organization Address City/State/ZIP Code Phon e Number M [facility] [address] [place] [address] [facility] [address] [place], [place] [address], [facility] [phone] [facility] [address] [place] [address], [facility]PITAL (ABNORMAL) CBC with platelets differential (11/10/2019 5:31 PM CDT) [facility] Method Time Signature WBC 6.1 4.0 - 11/10/2019 [facility] 11.0 6:03 PM [facility] 10e9/L HOSPITAL RBC Count 4.37 3.8 - 5.2 11/10/2019 [facility] 10e12/L 6:03 PM [facility] Hemoglobin 10.1 (L) 11.7 - 11/10/2019 [facility] 15.7 g/dL 6:03 PM [facility] Hematocrit 35.2 35.0 - 11/10/2019 [facility] 47.0 % 6:03 PM [facility] MCV 81 78 - 100 11/10/2019 [facility] fl 6:03 PM [facility] MCH 23.1 (L) 26.5 - 11/10/2019 [facility] 33.0 pg 6:03 PM [facility] MCHC 28.7 (L) 31.5 - 11/10/2019 [facility] 36.5 g/dL 6:03 PM [facility] RDW 15.9 (H) 10.0 - 11/10/2019 [facility] 15.0 % 6:03 PM [facility] Platelet Count 334 150 - 450 11/10/2019 [facility] 10e9/L 6:03 PM [facility] Diff Method Automated 11/10/2019 [facility] Method 6:03 PM [facility] % Neutrophils 58.7 % 11/10/2019 [facility] 6:03 PM [facility] % Lymphocytes 28.7 % 11/10/2019 [facility] 6:03 PM [facility] % Monocytes 9.9 % 11/10/2019 [facility] 6:03 PM [facility] % Eosinophils 1.3 % 11/10/2019 [facility] 6:03 PM [facility] % Basophils 1.2 % 11/10/2019 [facility] 6:03 PM [facility] % Immature 0.2 % 11/10/2019 [facility] Granulocytes 6:03 PM [facility] Nucleated RBCs 0 0 /100 11/10/2019 [facility] 6:03 PM [facility] Absolute 3.6 1.6 - 8.3 11/10/2019 [facility] Neutrophil 10e9/L 6:03 PM [facility] Absolute 1.7 0.8 - 5.3 11/10/2019 [facility] Lymphocytes 10e9/L 6:03 PM [facility] Absolute 0.6 0.0 - 1.3 11/10/2019 [facility] Monocytes 10e9/L 6:03 PM [facility] Absolute 0.1 0.0 - 0.7 11/10/2019 [facility] Eosinophils 10e9/L 6:03 PM [facility] Absolute 0.1 0.0 - 0.2 11/10/2019 [facility] Basophils 10e9/L 6:03 PM [facility] Abs Immature 0.0 0 - 0.4 11/10/2019 [facility] Granulocytes 10e9/L 6:03 PM [facility] Absolute 0.0 11/10/2019 [facility] Nucleated RBC 6:03 PM [facility] Specimen Anatomical Collection Method Collection Time Receive d Time (Source) Location / / Volume Laterality Blood specimen 11/10/2019 5:31 PM 020 5:54 (specimen) CDT PM CDT Hernandez King MD LAB - BLOOD ORDERABLES Performing Organization Address City/[facility]/ZIP [facility] Phon e Number [facility] [address] [address] [facility] [address] [phone] HCG qualitative urine (11/10/2019 5:31 PM CDT) athologist Signature HCG Qual Urine Negative NEG^Negati 11/10/2019 [facility] ve 6:03 PM [facility] Comment: This test is for screening purposes. ??R esults should be interpreted along with the clinical picture. ??Confirmation te sting is available if warranted by ordering [id number], HCG Quantitative Pregna ncy. Specimen Anatomical Collection Method Collection Time Receive d Time (Source) Location / / Volume Laterality Urine specimen 11/10/2019 5:31 PM 020 5:54 (specimen) CDT PM CDT Hernandez King MD LAB - URINE ORDERABLES Performing Organization Address City/[facility]/ZIP [facility] Phon e Number M [facility] [address] [place] [address] [facility] [address]ous[address] [phone] documented in this encounter Visit Diagnoses Diagnosis [...] 11/08/2019 11/09/2019 11/10/2019 sodium chloride 0.9% infusion 21 10 (Canceled Entry - Provider: Orders Generic Provider [...] documented as of this encounter Care Teams Telephone Sterilizer Relationship Specialty Start Date End Date Clinic - [facility] PCP - General 09/16/18 [address] [place] [address] Raghu Meadows, LYUDMILA Assigned PCP 09/19/19 12/18/19 [address] [place] [address] documented as of this encounter
--- OUTSIDE RECORDS SUMMARY | 2022-02-16 10:54 | XMS_ITS | Encounter Summary ---
:1975 Author Organization [place] Address [address] [facility] [place] [address] Care Team Providers Name Role Phone [facility] Primary Care Provider Raghu Meadows INTERIOR BLOCK WIRER Unavailable Encounter Details Date Type Department Care Team Description 10/01/2019 Hospital Pathology [facility] Josiane Puga MD Results [facility] OBGYN CONSULT [address] [place] [address] [phone] (Wo rk) Social History Tobacco Use Types [...] Procedure Name Priority Date/Time Associated Diagnosis Comme [facility] SURGICAL PATHOLOGY Routine 10/01/2019 10:44 AM Re sults for this EXAM CDT procedure are i n the results section. documented in this encounter Results Surgical pathology exam (10/01/2019 10:44 AM CDT) Component Value Ref Test Analysis Performed At [facility] Method Time Signature Copath Report Patient Name: COURTNEY LIZAMA MR#: [id number] Specimen #: [id number] Collected: 10/01/2019 Received: 10/01/2019 Reported: 10/04/2019 08:21 Ordering Phy(s): LAKISHA HALE For improved result formatting, select 'View Enhanced Report Format' under Linked Documents section. SPECIMEN(S): Endometrial polyp FINAL DIAGNOSIS: Endometrium, curettage. -Secretory endometrium. ??Fragments of endometrial polyp. ?? Negative for hyperplasia and malignancy. Electronically signed out by: Angel Neely M.D. CLINICAL HISTORY: Endometrial polyps. GROSS: The specimen is received in formalin with proper patient julia ntification labeled endometrial polyp. ??The specimen consists of pink spongy tissue fragments measuring up to 2.5 cm in aggregate. ??The specimen is entirely submitted in two cassettes. (Dictated by: Angel rubi 10/01/2019 01:44 PM) MICROSCOPIC: There is mid secretory endometrium and basalis. ??Focal endo metrial myometrial junction is present. ??Chronic endometritis or obvious stromal breakdown is not identified. ??There are features consistent with fragments of an endometrial polyp. The technical component of this testing was completed at the [facility], with the professional compo nent performed at the [facility], [address] [place] [address] ??[phone] ([phone]) CPT Codes: A: 27105-EQ5 COLLECTION SITE: Client: [facility] Location: [facility] (F) Specimen Anatomical Collection Method Collection Time Receive d Time (Source) Location / / Volume Laterality 10/01/2019 10:44 10/01/2019 AM CDT 11:30 AM CDT Lakisha Hale MD [facility] Performing Organization Address City/State/ZIP Code Phon e Number [facility] documented in this encounter Visit Diagnoses Not on filedocumented in this encounter Additional Health Concerns Assessment Noted Time PHQ-9 Depression Total Score: 12 09/17/2018 1:32 PM CD T documented as of this encounter Care Teams Loft Patternmaker Relationship Specialty Start Date End Date Clinic - [facility] PCP - General 09/16/18 [address] [place] [place] [address] Raghu Meadows, LYUDMILA Assigned PCP 09/19/19 12/18/19 [address] [place] [address] documented as of this encounter
--- OUTSIDE RECORDS SUMMARY | 2022-02-16 10:54 | XMS_ITS | Encounter Summary ---
:1975 Author Organization [place] Address [address] [facility] [place] [address] Care Team Providers Name Role Phone Clinic - [facility] Primary Care Provider Raghu Meadows CNP Unavailable Reason for Visit Reason Comments Vaginal Bleeding Encounter Details Date Type Department Care Team Description 11/02/2019 [facility] Aki Peters MD DUB ([facility] Emergency Dep t EMERGENCY PHYSICIANS uterine bleeding) [address] [place], [place] [address] [employer] [address] [place] [address] [place], [place] [address] (Wo rk) Social History Tobacco Use Types [...] dizziness or worsening pain. Follow-up with your CONSTRUCTION TRENCH DIGGER doctors today to schedule appointment/ultrasound. Take the [...] but often this is left to an CONSTRUCTION TRENCH DIGGER provider. These can cause problems if you [...] follows up with Dr. Quick as her CONSTRUCTION TRENCH DIGGER. Allergies: Compazine [Prochlorperazine] Tamiflu [Oseltamivir] Medications: wellbutrin Past Medical History: Anemia Past Surgical History: LEEP Uterine Ablation Family History: Family history reviewed. No pertinent family history. Social History: Smoking Status: Never Smoker Smokeless Tobacco: Never Used Alcohol Use: Yes Drug Use: No PCP: [facility] Review of Systems Respiratory: Negative for cough [...] medical records, nursing notes, and vitals reviewed. 719 I performed an exam of the patient as documented above. IV was inserted and blood was drawn for laboratory testing, results above. The patient provided a urine sample here in the emergency department. This was sent for laboratory testing, findings above. 829 I performed a chaperoned pelvic exam. [address] Guthrie of the CONSTRUCTION TRENCH DIGGER service regarding patient's presentation, findings, and plan [...] no signs of massive hemorrhage. Discussed with CONSTRUCTION TRENCH DIGGER with plans for outpatient ultrasound and appointment [...] daily. Skip the placebo pills. Scribe Disclosure: I, Pawan Gisela, am serving as a scribe at 7:20 AM on 11/02/2019 to document services personally performed by Garry Peters MD based on my observations and the provider's statements to me. 11/02/2019 Garry Peters MD Lindenbaum, Elan, MD 11/02/19 0929 documented in this encounter Miscellaneous Notes Result Encounter Note - Corona Kramer RN - 11/02/2019 10:02 AM CDT Final urine culture report is NEGATIVE per [facility] Result protocol. If NEGATIVE result, no change in treatment, per [facility] Result protocol. documented in this [...] AM 0 8:10 CDT AM CDT Garry Peters MD LAB - BEAKER POCT Performing Organization Address City/[facility]/ZIP Code Phon e Number FV POINT OF CARE TEST, HANDHELD METER POINT OF CARE TEST, HANDHELD METER Urine Culture (11/02/2019 7:50 AM CDT) Component Value Ref Test Analysis Performed At [facility] Range Method Time Signature Specimen Midstream [...] MICRO GENERAL ORDERABL ES Performing Organization Address City/[facility]/ZIP Code Phon e Number INFECTIOUS DISEASES [address] [place] [address] DIAGNOSTIC LABORATORY, [facility] INFECTIOUS DISEASES [address] [place] [address], [place] DIAGNOSTIC LABORATORY (ABNORMAL) UA with Microscopic (11/02/2019 7:46 AM CDT) [facility] Method Time Signature Color Urine Light Red 11/02/2019 [facility] 8:18 AM [facility] Appearance Urine Slightly 11/02/2019 [facility] Cloudy 8:18 AM [facility] Glucose Urine Negative NEG^Negat 11/02/2019 [place] debi mg/dL 8:18 AM [facility] Bilirubin Urine Negative NEG^Negat 11/02/2019 [place] debi 8:18 AM [facility] Ketones Urine Negative NEG^Negat 11/02/2019 [place] debi mg/dL 8:18 AM [facility] Specific [place] 1.005 1.003 - 11/02/2019 [facility] Urine 1.035 8:18 AM [facility] Blood Urine Large (A) NEG^Negat 11/02/2019 [facility] debi 8:18 AM [facility] pH Urine 6.0 5.0 - 7.0 11/02/2019 [place] pH 8:18 AM [facility] Protein Albumin 100 (A) NEG^Negat 11/02/2019 [facility] Urine debi mg/dL 8:18 AM [facility] Urobilinogen Normal 0.0 - 2.0 11/02/2019 [facility] mg/dL mg/dL 8:18 AM [facility] Nitrite Urine Negative NEG^Negat 11/02/2019 [place] debi 8:18 AM [facility] Leukocyte Moderate (A) NEG^Negat 11/02/2019 [facility] Esterase Urine debi 8:18 AM [facility] Source Midstream 11/02/2019 [facility] [facility] Urine 7:46 AM [facility] WBC Urine 12 (H) 0 - 5 11/02/2019 [facility] /HPF 8:18 AM [facility] RBC Urine 7 (H) 0 - 2 11/02[facility]:18 AM [facility] Bacteria Urine Few (A) NEG^Negat 11/02/2019 [place] debi /HPF 8:18 AM [facility] Squamous 3 (H) 0 - 1 11/02/2019 [facility] Epithelial /HPF /HPF 8:18 AM [facility] Mucous Urine Present (A) NEG^Negat 11/02/2019 [place] debi /LPF 8:18 AM [facility] Specimen (Source) Anatomical Collection Method Collection Time Re ceived Time Location / / Volume Laterality Examination of 11/02/2019 7:46 11/02/2019 8:03 midstream urine AM CDT AM T specimen (procedure) Garry Peters MD LAB - URINE ORDERABLES Performing Organization Address City/State/ZIP Code Phon e Number M [facility] [address] [place], [place] [address] [facility] [address] [place], [place] [address] [place] [address] INR (11/02/2019 7:46 AM CDT) P athologist Signature INR 0.96 0.86 - 1.14 11/02/2019 [place] [address] AM [facility] Specimen Anatomical Collection Method Collection Time Receive d Time (Source) Location / / Volume Laterality Blood specimen 11/02/2019 7:46 AM 020 7:59 (specimen) CDT AM T Garry Peters MD LAB - BLOOD ORDERABLES Performing Organization Address City/State/ZIP Code Phon e Number M [place] [address] [address] [place], [place] [address] [facility] [address] [place], [place] [address] [place] [address] (ABNORMAL) Basic metabolic panel (11/02/2019 7:46 AM CDT) athologist Signature Sodium 139 133 - 144 11/02/2019 [facility] mmol/L 8:15 AM [facility] Potassium 4.0 3.4 - 5.3 11/02/2019 [facility] [place] mmol/L 8:15 AM [facility] Chloride 108 94 - 109 11/02/2019 [facility] mmol/L 8:15 AM [facility] Carbon Dioxide 26 20 - 32 11/02/2019 [facility] mmol/L 8:22 AM [facility] Anion Gap 5 3 - 14 11/02/2019 [facility] mmol/L 8:22 AM [facility] Glucose 103 (H) 70 - 99 11/02/2019 [facility] mg/dL 8:22 AM [facility] Urea Nitrogen 9 7 - 30 11/02/2019 [facility] mg/dL 8:22 AM [facility] Creatinine 0.78 0.52 - 11/02/2019 [facility] 1.04 mg/dL 8:22 AM [facility] GFR Estimate >90 >60 11/02/2019 [facility] mL/min/{1. 8:22 AM [facility] 73_m2} [facility] Comment: Non GFR Calc Starting 04/21/2018, serum creatinine ba sed estimated GFR (eGFR) will be calculated using the Chronic Kidney Dise ase Epidemiology Collaboration (CKD-EPI) equation. GFR Estimate If >90 >60 mL/min/{1.73_m2} 11/02/2019 8: 22 AM [facility] Comment: GFR Calc Starting 04/21/2018, serum creatinine ba sed estimated GFR (eGFR) will be calculated using the Chronic Kidney Dise ase Epidemiology Collaboration (CKD-EPI) equation. Calcium 9.1 8.5 - 10.1 mg/dL 11/02/2019 8:22 AM [facility] Specimen Anatomical Collection Method Collection Time Receive d Time (Source) Location / / Volume Laterality Blood specimen 11/02/2019 7:46 AM 020 7:59 (specimen) CDT AM CDT Garry Peters MD LAB - BLOOD ORDERABLES Performing Organization Address City/State/ZIP Code Phon e Number M [facility] [address] [place] [address] [facility] [address] [phone] (ABNORMAL) CBC with platelets differential (11/02/2019 7:46 AM CDT) [facility] gist Method Time Signature WBC 5.6 4.0 - 11/02/2019 [facility] 11.0 8:03 AM [facility] 10e9/L HOSPITAL RBC Count 4.64 3.8 - 5.2 11/02/2019 [facility] 10e12/L 8:03 AM [facility] Hemoglobin 10.8 (L) 11.7 - 11/02/2019 [facility] 15.7 g/dL 8:03 AM [facility] Hematocrit 36.8 35.0 - 11/02/2019 [facility] 47.0 % 8:03 AM [facility] MCV 79 78 - 100 11/02/2019 [facility] fl 8:03 AM [facility] MCH 23.3 (L) 26.5 - 11/02/2019 [facility] 33.0 pg 8:03 AM [facility] MCHC 29.3 (L) 31.5 - 11/02/2019 [facility] 36.5 g/dL 8:03 AM [facility] RDW 16.3 (H) 10.0 - 11/02/2019 [facility] 15.0 % 8:03 AM [facility] Platelet Count 342 150 - 450 11/02/2019 [facility] 10e9/L 8:03 AM [facility] Diff Method Automated 11/02/2019 [facility] Method 8:03 AM [facility] % Neutrophils 69.8 % 11/02/2019 [facility] % Lymphocytes 19.8 % 11/02/2019 [facility] 8:03 AM [facility] % Monocytes 8.7 % 11/02/2019 [facility] 8:03 AM [facility] % Eosinophils 0.7 % 11/02/2019 [facility] 8:03 AM [facility] % Basophils 0.5 % 11/02/2019 [facility] 8:03 AM [facility] % Immature 0.5 % 11/02/2019 [facility] Granulocytes 8:03 AM [facility] Nucleated RBCs 0 0 /100 11/02/2019 [facility] 8:03 AM [facility] Absolute 3.9 1.6 - 8.3 11/02/2019 [facility] Neutrophil 10e9/L 8:03 AM [facility] Absolute 1.1 0.8 - 5.3 11/02/2019 [facility] Lymphocytes 10e9/L 8:03 AM [facility] Absolute 0.5 0.0 - 1.3 11/02/2019 [facility] Monocytes 10e9/L 8:03 AM [facility] Absolute 0.0 0.0 - 0.7 11/02/2019 [facility] Eosinophils 10e9/L 8:03 AM [facility] Absolute 0.0 0.0 - 0.2 11/02/2019 [facility] Basophils 10e9/L 8:03 AM [facility] Abs Immature 0.0 0 - 0.4 11/02/2019 [facility] Granulocytes 10e9/L 8:03 AM [facility] Absolute 0.0 11/02/2019 [facility] Nucleated RBC 8:03 AM [facility] Specimen Anatomical Collection Method Collection Time Receive d Time (Source) Location / / Volume Laterality Blood specimen 11/02/2019 7:46 AM 020 7:59 (specimen) CD[facility] LAB - BLOOD ORDERABLES Performing Organization Address City/State/ZIP Code Phon e Number M [facility] [address] [place], [place] [address] [phone] [place] [address] [address] [phone] documented in this encounter Visit Diagnoses Diagnosis [...] 11/01/2019 11/02/2019 0.9% sodium chloride BOLUS (COMPLETED) 0747 (New Bag - Provider: Bhumi Sam RN)0924 (Stopped - Provider: Bhumi Sam, RN) Intravenous, 1,000 mL, ONCE, at 1,000 mL /hr, Administer over 1 Hours, On Fri11/02/19 at 0729, For 1 dose acetaminophen (TYLENOL) tablet 650 mg (COMPLETED) 0901 (Given - Provider: Bhumi Sam, RN) 650 [...] documented as of this encounter Care Teams Dialysis Clinical Manager Relationship Specialty Start Date End Date Clinic - [facility] PCP - General 09/16/18 [address] [place] [address] Raghu Meadows CNP Assigned PCP 09/19/19 12/18/19 [address] [place] [address] documented as of this encounter
--- OUTSIDE RECORDS SUMMARY | 2022-02-16 10:54 | XMS_ITS | Encounter Summary ---
:1975 Author Organization [facility] Address [address] [facility] [place] [address] Care Team Providers Name Role Phone [facility] - [facility] [...] documented as of this encounter Care Teams Wad Blanking Press Adjuster Relationship Specialty Start Date End Date Clinic - [facility] PCP - General 09/16/18 [address] [place] [address] Raghu Meadows CNP Assigned PCP 09/19/19 12/18/19 [address] [place] [address] documented as of this encounter
--- OUTSIDE RECORDS SUMMARY | 2022-02-16 10:54 | XMS_ITS | Encounter Summary ---
:1975 Author Organization [place] Address [address] [facility] [place] [address] Care Team Providers Name Role Phone [facility] Primary Care Provider Irina Ricci BUSINESS DEVELOPMENT PROFESSIONAL Unavailable Encounter Details Date Type Department Care [...] documented as of this encounter Care Teams Consumer Affairs Specialist Relationship Specialty Start Date End Date [facility] PCP - General 09/16/18 [address] [place] [address] Irina Ricci, RODERICK Assigned PCP 09/20/18 01/30/19 [address] [place] [address] documented as of this encounter
--- OUTSIDE RECORDS SUMMARY | 2022-02-16 10:54 | XMS_ITS | Encounter Summary ---
:1975 Author Organization [place] Address [address] [facility] [place] [address] Care Team Providers Name Role Phone Clinic - [facility] Primary Care Provider Raghu Meadows CNP Unavailable Lily Rincon PA-C Unavailable Asha Urbina PA-C Unavailable [phone] Reason for Visit Reason Comments Covid 19 Testing Encounter Details Date Type Department Care Team Description 09/29/2019 Ambulatory - [facility] Preop testing [address] [phone] Social History Tobacco Use Types Packs/Day [...] documented as of this encounter Care Teams Special Assets Officer Relationship Specialty Start Date End Date Clinic - [facility] PCP - General 09/16/18 [address] [place] [address] Raghu Meadows CNP Assigned PCP 09/19/19 12/18/19 [address] [place] [address] Lily Rincon PA-C Assigned PCP 12/19/19 08/12/[address] [place] [address] [place] [address] Asha Urbina PA-C Assigned PCP 08/13/20 09/27/20 [address] [place] [address] documented as of this encounter
--- OUTSIDE RECORDS SUMMARY | 2022-02-16 10:54 | XMS_ITS | Encounter Summary ---
:1975 Author Organization [place] Address [address] [facility] [place] [address] Care Team Providers Name Role Phone [facility] Primary Care Provider Irina Ricci XRAY TECH Unavailable DoriRaghu carreon ADMINISTRATIVE NURSING SUPERVISOR Unavailable Irina Ricci XRAY TECH Unavailable DoriRaghu carreon ADMINISTRATIVE NURSING SUPERVISOR Unavailable Irina Ricci XRAY TECH Unavailable DoriRaghu ADMINISTRATIVE NURSING SUPERVISOR Unavailable Lily Rincon PA-C Unavailable Asha Urbina PA-C Unavailable Ingrid Gillespie ADMINISTRATIVE NURSING SUPERVISOR Unavailable Rafaela Higuera PA-C Unavailable [phone] Ingrid Gillespie ADMINISTRATIVE NURSING SUPERVISOR Unavailable Luis E Mtz MD Unavailable Meg Vigil PA-C Unavailable Reason for Visit Reason Onset Date Comments Outreach 11/26/2018 [facility] MAMMO- ATT 1 Outreach 12/04/2018 [facility] MAMMO- ATT 2 Encounter Details Date Type Department Care Team Description 11/26/2018 Telephone [place] [facility] - [facility] ([facility] MAMMO- Scheduling [facility] ATT 1); Outreach ([facility] [address] [facility] MAMMO- ATT 2) [place] [address] [address] [address] [place], [place] [phone] [address] Social History Tobacco Use Types Packs/Day Years [...] CR on 12/07/18 Message on voicemail Outreach traffic monitor specialistDeana Telephone Encounter - Jailyn Freedman - 11/26/2018 10:13 AM CDT 11/26/2018 Attempt 1 Contacted patient in regards to scheduling VIP mammogram, CR for DEC 07. Message on voicemail Patient is also due for - Comments: Outreach Raisin Separator Operator LR documented in this encounter Plan of Treatment Not on filedocumented as of this encounter Visit Diagnoses Not on filedocumented in this encounter Additional Health Concerns Infection Onset Date Last Indicated Resolved Time Rule Out COVID-19 11/10/2019 11/10/2019 11/10/2019 9:5 3 PM CDT Assessment Noted Time PHQ-9 Depression Total Score: 12 09/17/2018 1:32 PM CD T documented as of this encounter Care Teams Logistics Service Representative Relationship Specialty Start Date End Date Clinic - [facility] PCP - General 09/16/18 [place] [id number] [place] [address] Irina Ricci, RODERICK Assigned PCP 09/20/18 01/30/19 [address] [place] [address] Raghu Meadows, LYUDMILA Assigned PCP 01/31/19 02/06/[address] [place] [address] Irina Ricci, XRAY TECH Assigned PCP 02/07/19 03/06/19 [address] [place] [address] Raghu Meadows, LYUDMILA Assigned PCP 03/07/19 03/13/[address] [place] [address] Irina Ricci NP Assigned PCP 03/14/19 09/18/19 [address] [place] [address] Raghu Meadows, LYUDMILA Assigned PCP 09/19/19 12/18/[address] [place] [address] Lily Rincon PA-C Assigned PCP 12/19/19 08/12/[address] [facility] [place] [address] Asha Urbina Assigned PCP 08/13/20 09/27/20 [address] [address] [place] [address] Ingrid Gillespie, ADMINISTRATIVE NURSING SUPERVISOR Assigned PCP 09/28/20 12/30/[address] [place] [id number] Rafaela Higuera Assigned PCP 12/31/20 [address] [place], [place] [address] Ingrid Gillespie, ADMINISTRATIVE NURSING SUPERVISOR Assigned PCP 01/28/[address] [place] [address] Luis E Mtz MD Assigned Surgical Provider 01/14/[address] [place], [place] [id number] Meg Vigil, Assigned PCP 01/07/21 01/27/21 [address] [place], [place] [id number] documented as of this encounter
--- OUTSIDE RECORDS SUMMARY | 2022-02-16 10:54 | XMS_ITS | Encounter Summary ---
:1975 Author Organization [facility] Address [address] [facility] [place] [address] Support Name Relationship Address Phone Leanne Wu Unavailable Unavailable [phone] [place] [address] Team Providers Name Role Phone [facility] Primary Care Provider Lily Rincon PA-C Unavailable Reason for Referral Diagnostic Imaging XR (Routine) - Closed Specialty Diagnoses / Procedures Referred By Contact Refer red To Contact Radiology. Diagnoses Laryngeal injury, initial encounter Janes Corrigan Rh Xray Rscc Procedures XR Esophagram [address] [facility] [address] [place], [place] [phone] Fax: Referral ID Status Reason Start Date Expiration Date Visits Requ ested Visits Authorized [id number] Closed 06/19/2020 06/19/2021 1 1 NITION ASSEMBLY I LABORER Reason for Visit Diagnostic Imaging XR (Routine) - Closed Specialty Diagnoses / Procedures Referred By Contact Refer red To Contact Radiology. Diagnoses Laryngeal injury, initial encounter Janes Corrigan Rh Xray Rscc Procedures XR Esophagram [address] [facility] [address] [place], [place] [phone] Fax: Referral ID Status Reason Start Date Expiration Date Visits Requ ested Visits Authorized [id number] Closed 06/19/2020 06/19/2021 1 1 Encounter Details Date Type Department Care Team Description 06/22/2020 [facility], [facility] MD Dirk initial encounter [address] [facility] [address] [place] [address] Social History Tobacco Use Types Packs/Day Years Used Date Smoking Tobacco: Never Smokeless Tobacco: Never Alcohol Use Standard Drinks/Week Comments Yes 0 (1 standard drink = 0.6 oz pure alcoho l) rare Sex Assigned at Date Recorded Not on file COVID-19 Exposure Response Date Recorded In the last month, have you been in contact with No / Unsure 06/22/2020 10:21 AM AMMUNITION ASSEMBLY I LABORER someone who was confirmed or suspected to have Coronavirus / COVID-19? documented as of this encounter Plan of Treatment Not on filedocumented as of this encounter Procedures Procedure Name Priority Date/Time Associated Diagnosis Comme nts XR ESOPHAGRAM Routine 06/22/2020 11:00 AM Laryngeal injury, Re sults for this AMMUNITION ASSEMBLY I LABORER initial encounter procedure are in the results section . documented in this encounter Results XR Esophagram (06/22/2020 11:00 AM AMMUNITION ASSEMBLY I LABORER) Anatomical Region Laterality Modality Chest Radio Fluoroscopy Specimen (Source) Anatomical Location Collection Method / Collectio n Time Received Time / Laterality Volume Impressions 06/22/2020 11:40 AM AMMUNITION ASSEMBLY I LABORER IMPRESSION: Unremarkable double contrast esophagram. VIDAL CHENG MD Narrative 06/22/2020 11:40 AM AMMUNITION ASSEMBLY I LABORER XR ESOPHAGRAM ??06/22/2020 11:00 AM HISTORY: Laryngeal [...] (EZ PAQUE) oral Given 06/22/2020 11:02 AM AMMUNITION ASSEMBLY I LABORER 100 mLs suspension 96% 100 mL Oral, ONCE, On [place] 06/22/20 at 1130, For 1 dose barium sulfate (EZ-HD) oral suspension 98% Given 06/22 11:02 AM AMMUNITION ASSEMBLY I LABORER 100 mLs 100 mL Oral, ONCE, On [place] 06/22/20 at 1130, For 1 dose sod bicarbonate-citric acid-simethicone (EZ Given 06/22/2020 11: 02 AM AMMUNITION ASSEMBLY I LABORER 4 g GAS) 2.21-1.53-0.04 g packet 4 g 4 g, Oral, ONCE, On [place] 06/22/20 at 1130, For 1 dose documented in this encounter Additional Health Concerns Assessment Noted Time PHQ-9 Depression Total Score: 12 09/17/2018 1:32 PM CD T documented as of this encounter Care Teams Lumber Planer Relationship Specialty Start Date End Date Clinic - [place] PCP - General 09/16/18 [address] [place] [address] Lily Rincon PA-C Assigned PCP 12/19/19 08/12/[address] [place] [address] [place] [address] documented as of this encounter
--- OUTSIDE RECORDS SUMMARY | 2022-02-16 10:54 | XMS_ITS | Encounter Summary ---
:1975 Author Organization [place] Address [address] [facility] [place] [address] Care Team Providers Name Role Phone [facility] Primary Care Provider Raghu Meadows CNP [...] documented as of this encounter Care Teams Clinical Research Technician Relationship Specialty Start Date End Date Clinic - [facility] PCP - General 09/16/18 [address] [place] [address] Raghu Meadows CNP Assigned PCP 09/19/19 12/18/19 [address] [place] [address] documented as of this encounter
--- OUTSIDE RECORDS SUMMARY | 2022-02-16 10:54 | XMS_ITS | Encounter Summary ---
:1975 Author Organization [place] Address [address] [place] [address] Care Team Providers Name Role Phone Clinic - [facility] Primary Care Provider Raghu Meadows CNP Unavailable Lily Rincon PA-C Unavailable Asha UrbinaC Unavailable [phone] Encounter Details Date Type Department Care Team Description 09/30/2019 Communication - [facility] Alee Piña, [facility] DELLA [place] [address] [place] [phone] Social History Tobacco Use Types Packs/Day [...] (Other) 09/30/[address] [place] [address] This letter provides a written record that [...] letter or your Negative COVID-19 result, call [phone] between 8A to 6:30P (M-F) and 10A [...] documented as of this encounter Care Teams Junior Electrical Engineer Relationship Specialty Start Date End Date Clinic - [facility] PCP - General 09/16/18 [address] [place] [address] Raghu Meadows, LYUDMILA Assigned PCP 09/19/19 12/18/19 [address] [place] [address] Lily Rincon PA-C Assigned PCP 12/19/19 08/12/[address] [facility] [place] [address] Asha Urbina PA-C Assigned PCP 08/13/20 09/27/20 [address] [place] [address] documented as of this encounter
--- OUTSIDE RECORDS SUMMARY | 2022-02-16 10:54 | XMS_ITS | Encounter Summary ---
:1975 Author Organization [place] Address [address] [place] [address] Care Team Providers Name Role Phone [facility] Primary Care Provider Lily Rincon PA-C Unavailable Reason for Visit Reason Comments RECHECK Encounter Details Date Type Department Care Team Description 08/09/[address] [facility] Asha Urbina Umbmarilu lical pain (Primary Dx); Clinic [place] JEREMY Dumont Syncope, unspecified syncope type; [address] [address] [facility] Iron deficiency anemia, unspecified iron deficiency anemia type; [place], [place] [address] Cyst of ovary, unspecified laterality [address] [phone] Social History Tobacco Use Types Packs/Day Years [...] Recheck if not improving. Asha Urbina PA-C [facility] PRISCILLA Shah is a 44 year old who presents for the following health issues History of Present Illness She eats 0-1 servings of fruits and vegetables daily.She consumes 0 sweetened beverage(s) daily.She exercises with enough effort to increase her heart rate 10 to 19 minutes per day. She is taking medications regularly. ED/UC Followup: Facility: [place] Date of visit: August 03, 6 days [...] - 15.7 g/dL Final No records from [place] in Care Everywhere, they do not connect [...] last Friday, had a little bleeding yesterday. 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 Over the last year has had some [...] [facility] We should recheck your labs in 2 [...] a great week! Sincerely, Elisha Urbina PA-C [facility] [address] [place] [address] Clinic Result Encounter Note - Asha Urbina [...] have a great week! Sincerely, JEREMY [facility] [address] [place] [address] Clinic Addendum Note - Asha Urbina PA-C [...] Results (ABNORMAL) Ferritin (08/09/2020 9:32 AM CDT) athologist Signature Ferritin 6 (L) 8 - 252 08/09/2020 [facility] ng/mL 4:26 PM CDT [facility] Specimen Anatomical Collection Method Collection Time Receive d Time (Source) Location / / Volume Laterality Blood 08/09/2020 9:32 AM 9:33 CDT AM CDT Asha Urbina PA-C LAB - BLOOD ORDERABLE S Performing Organization Address City/State/ZIP Code Phon e Number [facility] [address] [place] [address] Transferrin (08/09/2020 9:32 AM CDT) athologist Signature Transferrin 347 210 - 360 08/09/2020 [facility] mg/dL 6:21 PM T [facility] Specimen Anatomical Collection Method Collection Time Receive d Time (Source) Location / / Volume Laterality Blood 08/09/2020 9:32 AM 9:33 CDT AM CDT Asha Urbina PA-C LAB - BLOOD ORDERABLE S Performing Organization Address City/State/ZIP Code Phon e Number [facility] [address] [place], [place] [id number] [place] [address] (ABNORMAL) Comprehensive metabolic panel (08/09/2020 9:32 AM CDT) athologist Signature Sodium 137 133 - 144 08/09/2020 [facility] mmol/L 12:49 PM [facility] Potassium 4.0 3.4 - 5.3 08/09/2020 [facility] mmol/L 12:49 PM [facility] Chloride 107 94 - 109 08/09/2020 [facility] mmol/L 12:49 PM [facility] Carbon Dioxide 27 20 - 32 08/09/2020 [place] mmol/L 1:06 PM [facility] Anion Gap 3 3 - 14 08/09/2020 [place] mmol/L 1:06 PM [facility] Glucose 104 (H) 70 - 99 08/09/2020 [place] mg/dL 1:06 PM [facility] Urea Nitrogen 10 7 - 30 08/09/2020 [place] mg/dL 1:06 PM [facility] Creatinine 0.70 0.52 - 08/09/2020 [facility] 1.04 mg/dL 1:06 PM [facility] GFR Estimate >90 >60 08/09/2020 [place] mL/min/{1. 1:06 PM [facility] 73_m2} HOSPITAL Comment: Non GFR Calc Starting 04/21/2018, serum creatinine ba sed estimated GFR (eGFR) will be calculated using the Chronic Kidney Dise ase Epidemiology Collaboration (CKD-EPI) equation. GFR Estimate If >90 >60 mL/min/{1.73_m2} 08/09/2020 1: 06 PM [facility] Comment: GFR Calc Starting 04/21/2018, serum creatinine ba sed estimated GFR (eGFR) will be calculated using the Chronic Kidney Dise ase Epidemiology Collaboration (CKD-EPI) equation. Calcium 8.9 8.5 - 10.1 mg/dL 08/09/2020 1:06 PM [facility] Bilirubin Total 0.9 0.2 - 1.3 mg/dL 08/09/2020 1:08 PM [facility] Albumin 3.7 3.4 - 5.0 g/dL 08/09/2020 1:08 PM [facility] Protein Total 8.2 6.8 - 8.8 g/dL 08/09/2020 1:08 PM [facility] Alkaline Phosphatase 71 40 - 150 U/L 08/09/2020 1:08 PM [facility] ALT 49 0 - 50 U/L 08/09/2020 1:08 PM [facility] AST 40 0 - 45 U/L 08/09/2020 1:08 PM [facility] Specimen Anatomical Collection Method Collection Time Receive d Time (Source) Location / / Volume Laterality Blood 08/09/2020 9:32 AM 9:33 CDT AM CDT Asha Urbina PA-C LAB - BLOOD ORDERABLE S Performing Organization Address City/State/ZIP Code Phon e Number [place] [address] [address] [facility] [address] [phone] (ABNORMAL) CBC with platelets differential (08/09/2020 9:32 AM CDT) athologist Signature WBC 6.3 4.0 - 11.0 08/09/2020 [place] 10e9/L 9:44 AM T [facility] RBC Count 4.30 3.8 - 5.2 08/09/2020 [place] 10e12/L 9:44 AM CDT [facility] Hemoglobin 10.4 (L) 11.7 - 15.7 08/09/2020 [place] g/dL 9:44 AM T [facility] Hematocrit 33.8 (L) 35.0 - 47.0 08/09/2020 [place] % 9:44 AM CDT [facility] MCV 79 78 - 100 fl 08/09/2020 [place] 9:44 AM CDT [facility] MCH 24.2 (L) 26.5 - 33.0 08/09/2020 [place] pg 9:44 AM CDT [facility] MCHC 30.8 (L) 31.5 - 36.5 08/09/2020 [place] g/dL 9:44 AM CDT [facility] Comment: Results confirmed by repeat sean t RDW 15.4 (H) 10.0 - 15.0 08/09/2020 9:44 [place] CLI NICS % AM CDT [place] Platelet Count 387 150 - 450 08/09/2020 9:44 [facility] 10e9/L AM CDT [place] % Neutrophils 64.9 % 08/09/2020 9:45 [place] C LINICS AM CDT [place] % Lymphocytes 27.1 % 08/09/2020 9:45 [place] C LINICS AM CDT [place] % Monocytes 6.4 % 08/09/2020 9:45 [place] [facility] NICS AM CDT [place] % Eosinophils 1.1 % 08/09/2020 9:45 [place] C LINICS AM CDT [place] % Basophils 0.5 % 08/09/2020 9:45 [place] [facility] NICS AM CDT [place] Absolute Neutrophil 4.1 1.6 - 8.3 08/09/2020 9:45 [facility] 10e9/L AM CDT [place] Absolute 1.7 0.8 - 5.3 08/09/2020 9:45 [place] [facility] CS Lymphocytes 10e9/L AM CDT [place] Absolute Monocytes 0.4 0.0 - 1.3 08/09/2020 9:45 [facility] 10e9/L AM CDT [place] Absolute 0.1 0.0 - 0.7 08/09/2020 9:45 [place] [facility] CS Eosinophils 10e9/L AM CDT [place] Absolute Basophils 0.0 0.0 - 0.2 08/09/2020 9:45 [facility] 10e9/L AM CDT [place] Diff Method Automated Method 08/09/2020 9:45 [facility] AM CDT [place] Specimen Anatomical Collection Method Collection Time Receive d Time (Source) Location / / Volume Laterality Blood 08/09/2020 9:32 AM 9:33 CDT AM CDT Asha Urbina PA-C LAB - BLOOD ORDERABLE S Performing Organization Address City/State/ZIP Code Phon e Number [facility] [address] [place] [address] documented in this encounter Visit Diagnoses Diagnosis Umbilical pain - Primary Abdominal pain, unspecified site Syncope, unspecified syncope type Iron deficiency anemia, unspecified iron deficiency anemia type Cyst of ovary, unspecified laterality documented in this encounter Additional Health Concerns Assessment Noted Time PHQ-9 Depression Total Score: 12 09/17/2018 1:32 PM CD T documented as of this encounter Care Teams Belt Conveyor Drier Relationship Specialty Start Date End Date Clinic - [facility] PCP - General 09/16/18 [address] [place] [address] Lily Rincon PA-C Assigned PCP 12/19/19 08/12/[address] [place] [address] JOSELITO BOSE [address] documented as of this encounter
--- OUTSIDE RECORDS SUMMARY | 2022-02-16 10:54 | XMS_ITS | Encounter Summary ---
:1975 Author Organization [place] Address [address] [facility] [place] [address] Care Team Providers Name Role Phone [facility] Primary Care Provider Raghu Meadows CERAMIC PLATER Unavailable Reason for Visit Reason Comments Pre-Op Exam Encounter Details Date Type Department Care Team Description 12/17/2019 Office Visit [facility] Lily Rincon, Pre- op exam (Primary Dx); Clinic [place] PA-C Breast hypertrophy; [address] Other iron deficiency anemia [address] [address] [place], [place] [address] [address] [place], [place] [phone] [address] (Work) [phone] Social History Tobacco Use Types Packs/Day Years [...] documented in this encounter Patient Instructions Patient InstructionsPhoebe Soto CMA - 12/17/2019 8:30 AM CDT Preparing [...] list of medicines, including herbal treatments and [id number] drugs ?? Whether the patient has a [...] pre-approve the surgery. (If no insurance, call [phone].) ?? Call your surgeon's clinic if there's [...] of your health care provider. Copyright ?? [id number] [facility]. All rights reserved. Clinically reviewed by Dariela Guevara MD. [employer]ART[employer] [id number] - REV 11/20. documented in this encounter Progress Notes Lily Rincon PA-C - 12/17/2019 8:30 AM CDT [facility] [address] [place] [phone] Dept: PRE-OP EVALUATION: Today's date: 12/17/2019 Alyssa Aguillon (: 1975) presents for pre-operative evaluation assessment as requested by Dr. Marquez. She requires evaluation and anesthesia risk assessment prior to undergoing surgery/procedure for treatment of breast hypertrophy. 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 Ovarian cyst 09/24/2010 Priority: Medium ??? [...] cardiovascular risks for perioperative complications such as ([place], PE, VFib and 3?? AV Block): No [...] Signature Hemoglobin 10.5 (L) 11.7 - 12/17/2019 [facility] 15.7 g/dL 9:00 AM CDT [facility] Specimen Anatomical Collection Method Collection Time Receive d Time (Source) Location / / Volume Laterality Blood specimen 12/17/2019 8:40 AM 020 8:45 (specimen) CDT AM CDT Lily Rincon PA-C LAB - BLOOD ORDERABLES Performing Organization Address City/State/ZIP Code Phon e Number [facility] [address] [place] [address] [facility] [place] documented in this encounter Visit Diagnoses Diagnosis Pre-op exam - Primary Preoperative examination, unspecified Breast hypertrophy Hypertrophy of breast Other iron deficiency anemia documented in this encounter Additional Health Concerns Assessment Noted Time PHQ-9 Depression Total Score: 12 09/17/2018 1:32 PM CD T documented as of this encounter Care Teams College Admissions Counselor Relationship Specialty Start Date End Date Clinic - [facility] PCP - General 09/16/18 [address] [place] [address] Raghu Meadows CNP Assigned PCP 09/19/19 12/18/19 [address] [place] [address] documented as of this encounter
--- OUTSIDE RECORDS SUMMARY | 2022-02-16 10:54 | XMS_ITS | Encounter Summary ---
:1975 Author Organization [place] Address [address] [place] [address] Care Team Providers Name Role Phone Clinic - [facility] Primary Care Provider Lily Rincon PA-C Unavailable Reason for Visit Reason Comments Urgent Care Dental Problem Pt was having a dental work done today pt states that she has bleach stuff in the back of her thr oat and is now burning. Encounter Details Date Type Department Care Team Description 06/14/2020 Office Visit [facility] Vega Stoddard of oral mucosa Urgent Care Ida Patel MD (Primary Dx) [address] [place] [address] [phone] Social History Tobacco Use Types Packs/Day Years Used Date Smoking Tobacco: Never Smokeless Tobacco: Never Alcohol Use Standard Drinks/Week Comments Yes 0 (1 standard drink = 0.6 oz pure alcoho l) rare Sex Assigned at Date Recorded Not on file documented as of this encounter Last Filed Vital Signs Vital Sign Reading Time Taken Comments Blood Pressure 118/80 06/14/2020 5:39 PM INSURANCE COORDINATOR Pulse 94 06/14/2020 5:39 PM INSURANCE COORDINATOR Temperature 36.8 ??C (98.2 ??F) 06/14/2020 5:39 PM INSURANCE COORDINATOR Respiratory Rate - - Oxygen Saturation 100% 06/14/2020 5:39 PM INSURANCE COORDINATOR Inhaled Oxygen Concentration - - Weight 78.5 kg (173 lb) 06/14/2020 5:39 PM INSURANCE COORDINATOR Height - - Body Mass Index 29.24 11/10/2019 4:14 PM CDT documented in this encounter Patient Instructions Patient InstructionsVega Stoddard MD - 06/14/2020 5:30 PM CST Use the magic mouthwash ( or equivalent covered by insurance ) for discomfort for the next 1-2 days If you develop any increasing pain, breathing difficulties, inability to swallow-- return right awayto be evaluated RANCE COORDINATOR documented in this encounter Progress Notes Vega Stoddard MD - 06/14/2020 5:30 PM CST Subjective: Alyssa Aguillon is a 44 year old female who presents for Chief Complaint Patient presents with ??? Urgent Care ??? Dental Problem Pt was having a dental work done today pt states that she has bleach stuff in the back of her throat and is now burning. Patient went into see her director auto for a root canal (occurred about 1 hour ago -- [facility] [place]) At one point there was use of a bleach irrigation within this root canal she was warned to inform them if this were to start burning (indicative of this seeping out of the area of irrigation) -- she at one point felt like this was starting to burn the back of her throat she had panicked as they tried She had coughed for a brief period afterwards. She compares the discomfort to an episode of strep throat. Denies breathing difficulties at this time. 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 Ovarian cyst 09/24/2010 Priority: Medium ??? Menorrhagia 09/24/2010 Priority: Medium ??? CARDIOVASCULAR SCREENING; LDL GOAL LESS THAN 160 03/04/2010 Priority: Medium Current Outpatient Medications Medication ? ? magic mouthwash suspension, diphenhydrAMINE, lidocaine, aluminum-magnesium & simethicone, (FIRST-MOUTHWASH BLM) compounding kit No current facility-administered medications for this visit. ROS: As above per HPI Objective: BP 118/80 Pulse 94 Temp 98.2 ??F (36.8 ??C) (Oral) Wt 78.5 kg (173 lb) SpO2 100% BMI 29.24kg/m?? , Body mass index is 29.24 kg/m??. Gen: NAD, appears age HEENT: EOMI, sclera anicteric, Head normocephalic, ; nares patent; moist mucous membranes, normal tonsils, normal mucosa of the posterior oropharynx without swelling/edema Neuro: no facial asymmetry Neck: trachea midline, no thyromegaly CV: Hemodynamically stable Pulm: no increased work of breathing, no stridor Extrem: no cyanosis, edema or clubbing Skin: no obvious rashes or abnormalities Psych: Euthymic, linear thoughts, normal rate of speech No results found for any visits on 06/14/20. Assessment & Plan: Alyssa Aguillon, 44 year old female who presents with: Burn of oral mucosa (with alkaline chemical/bleach) - magic mouthwash suspension, diphenhydrAMINE, lidocaine, aluminum-magnesium & simethicone, (FIRST-MOUTHWASH BLM) compounding kit Dispense: 60 mL; Refill: 0 Presume based on hx (patient was not given the active ingredient/concentration or told the specific chemical substance) that she was inflicted with a chemical burn by Sodium Hypochlorite -- this is notable as this can be high in terms of pH/basicity. At this time I do not see any obvious oral or facial swelling/ruiz/damage. Patient is able to swallow at this time. She did have a copious amount of irrigation and was given gatorade at the time of the incident. At this time she shows no breathing difficulties and is able to speak clearly. I do not feel she needs eval in the emergency room at this time but instructed her that if symptoms worsen she should be seen immediately. The total effects of this burn may not be obvious/evident yet as this canbe delayed for hours which I explained to the patient -- should things change dramatically when she is at home this evening she states her boyfriend or her kids will be there to keep an eye on her. Magic Mouthwash was provided to help reduce the amount of irritation she is experiencing. I do not see the role of using corticosteroid therapy after performing a review of available case studies online. Continue oral irrigation with water. She was counseled to also try tylenol PRN in addition. Vega Stoddard MD [facility] The use of [employer] dictation services may have been used to construct the content in this note; any grammatical or spelling errors are non- intentional. Please contact the author of this note directly if you are in need of any clarification. RANCE COORDINATOR documented in this encounter Plan of Treatment Not on filedocumented as of this encounter Visit Diagnoses Diagnosis Burn of oral mucosa - Primary documented in this encounter Additional Health Concerns Assessment Noted Time PHQ-9 Depression Total Score: 12 09/17/2018 1:32 PM CD T documented as of this encounter Care Teams Binder Chainstitch Relationship Specialty Start Date End Date Clinic - [facility] PCP - General 09/16/18 [address] [place] [address] Lily Rincon PA-C Assigned PCP 12/19/19 08/12/[address] [place] [address] DR SHEY MORRIS, JOSELITO [address] documented as of this encounter
--- OUTSIDE RECORDS SUMMARY | 2022-02-16 10:54 | XMS_ITS | Encounter Summary ---
:1975 Author Organization [place] Address [address] [facility] [place] [address] Care Team Providers Name Role Phone [facility] Primary Care Provider Lily Rincon PA-C [...] with No / Unsure 06/22/2020 10:21 AM PILE DRIVING TECHNICIAN someone who was confirmed or suspected to have Coronavirus / COVID-19? documented as of this encounter Plan of Treatment Not on filedocumented as of this encounter Visit Diagnoses Not on filedocumented in this encounter Additional Health Concerns Assessment Noted Time PHQ-9 Depression Total Score: 12 09/17/2018 1:32 PM CD T documented as of this encounter Care Teams Digital Computer Systems Analyst Relationship Specialty Start Date End Date Clinic - [facility] PCP - General 09/16/18 [address] [place] [address] Lily Rincon PA-C Assigned PCP 12/19/19 08/12/[address] [place] [address] JOSELITO BOSE [address] documented as of this encounter
--- OUTSIDE RECORDS SUMMARY | 2022-02-16 10:54 | XMS_ITS | Encounter Summary ---
:1975 Author Organization [place] Address [address] [facility] [place] [address] Care Team Providers Name Role Phone [facility] Primary [...] documented as of this encounter Care Teams Mattress Filler Relationship Specialty Start Date End Date Clinic - [facility] PCP - General 09/16/18 [address] [place] [address] Raghu Meadows, LYUDMILA Assigned PCP 09/19/19 12/18/[address] [place] [address] documented as of this encounter
--- OUTSIDE RECORDS SUMMARY | 2022-02-16 10:54 | XMS_ITS | Encounter Summary ---
:1975 Author Organization [place] Address [address] [facility] [place] [address] Care Team Providers Name Role Phone Clinic - [facility] Primary Care Provider Raghu Meadows CNP Unavailable Lily Rincon PA-C Unavailable Asha Urbina PA-C Unavailable [phone] Ingrid Gillespie RESERVATION SALES AGENT Unavailable Rafaela Higuera PA-C Unavailable Ingrid Gillespie RESERVATION SALES AGENT Unavailable Luis E Mtz MD Unavailable Meg Vigil PA-C Unavailable [phone] Encounter Details Date Type Department Care Team Description 09/28/2019 Orders Only [facility] Lakihsa Diop t esting Services - Surgical Josiane noel MD (Primary Dx) Specialties Service [facility] OBGYN Line CONSULT [address] [place] [facility] [address] [address] [place], [place] [address] (Wo rk) Social History Tobacco Use Types [...] documented as of this encounter Care Teams Patent Counsel Relationship Specialty Start Date End Date Clinic - [facility] PCP - General 09/16/18 Daily [address] [place], [place] [id number] Raghu Meadows CNP Assigned PCP 09/19/19 12/18/[address] [address] Lily Rincon PA-C Assigned PCP 12/19/19 08/12/[address] [place] [address] DR SHEY MORRIS [place] [id number] Asha Urbina Assigned PCP 08/13/20 09/27/20 JEREMY Dumont [address] [place], [place] [id number] Ingrid Gillespie, LYUDMILA Assigned PCP 09/28/20 12/30/20 [address] [place], [place] [address] Rafaela Higuera Assigned PCP 12/31/20 1 JEREMY Ugarte [address] [address] Ingrid Gillespie, RESERVATION SALES AGENT Assigned PCP 01/28/[address] [place] [address] Luis E Mtz MD Assigned Surgical Provider 01/14/21 [address] [facility] [address] [place], [place] [address] Meg Vigil, Assigned PCP 01/07/21 01/27/21 [facility] [place], [place] [address] documented as of this encounter
--- OUTSIDE RECORDS SUMMARY | 2022-02-16 10:54 | XMS_ITS | Encounter Summary ---
:1975 Author Organization [place] Address [address] [facility] [place] [address] Care Team Providers Name Role Phone [facility] Primary Care Provider Irina Ricci ROAD CONDUCTOR Unavailable Encounter Details Date Type Department Care [...] documented as of this encounter Care Teams Rope Rider Relationship Specialty Start Date End Date Clinic - [facility] PCP - General 09/16/18 [address] [place] [address] Irina Ricci, RODERICK Assigned PCP 03/14/19 09/18/19 [address] [place] [address] documented as of this encounter
--- OUTSIDE RECORDS SUMMARY | 2022-02-16 10:54 | XMS_ITS | Encounter Summary ---
:1975 Author Organization [place] Address [address] [facility] [place] [address] Care Team Providers Name Role Phone [facility] Primary Care Provider Lily Rincon PA-C [...] documented as of this encounter Care Teams Account Administrator Relationship Specialty Start Date End Date Clinic - [facility] PCP - General 09/16/18 [address] [place] [address] Lily Rincon PA-C Assigned PCP 12/19/19 08/12/[address] [place] [address] JOSELITO BOSE [address] documented as of this encounter
--- OUTSIDE RECORDS SUMMARY | 2022-02-16 10:54 | XMS_ITS | Encounter Summary ---
:1975 Author Organization [place] Address [address] [place] [address] Care Team Providers Name Role Phone [facility] - [facility] Primary Care Provider Raghu Meadows CNP Unavailable Lily Rincon PA-C Unavailable Asha UrbinaC Unavailable [phone] Encounter Details Date Type Department Care Team Description 09/29/2019 [facility] - [facility] Allie Diop MD [facility] OBGYN CONSULT [address] [place] [address] Preop testing [facility] Provider, Historical [address] [address] Social History Tobacco Use Types [...] documented as of this encounter Care Teams Assembling Machine Operator Relationship Specialty Start Date End Date Clinic - [facility] PCP - General 09/16/18 [address] [place] [address] Raghu Meadows, LYUDMILA Assigned PCP 09/19/19 12/18/19 [address] [place] [address] Lily Rincon PA-C Assigned PCP 12/19/19 08/12/[address] [place] [address] [place] [address] Asha Urbina PA-C Assigned PCP 08/13/20 09/27/20 [address] [place] [address] documented as of this encounter
--- OUTSIDE RECORDS SUMMARY | 2022-02-16 10:54 | XMS_ITS | Encounter Summary ---
:1975 Author Organization [place] Address [address] [place] [address] Care Team Providers Name Role Phone [facility] - [facility] Primary Care Provider Irina Ricci OPTICAL EFFECTS LINE UP PERSON Unavailable Encounter Details Date Type Department Care Team Description 07/05/2019 Travel Social History Tobacco Use Types Packs/Day [...] documented as of this encounter Care Teams Tool Builder Relationship Specialty Start Date End Date Clinic - [facility] PCP - General 09/16/18 [address] [place] [address] Irina Ricci, RODERICK Assigned PCP 03/14/19 09/18/19 [address] [place] [address] documented as of this encounter
--- OUTSIDE RECORDS SUMMARY | 2022-02-16 10:55 | XMS_ITS | Encounter Summary ---
:1975 Author Organization [place] Address [address] [facility] [address] Care Team Providers Name Role Phone Clinic - [facility] Primary Care Provider No Ref-Primary, Physician Primary Care Provider [phone] Isis Grace PA-C Unavailable [phone] Isis Grace PA-C Unavailable Reason for Visit Reason Onset Date Comments Appointment 02/03/2018 overdue for pap/hpv Encounter Details Date Type Department Care Team Description 02/03/2018 Telephone [facility] - Appointvish t (overdue Clinic [facility] for pap/hpv) [address] [place] [address] [facility] [address] [place], [place] [phone] [address] Social History Tobacco Use Types Packs/Day Years Used Date Smoking Tobacco: Never Smokeless Tobacco: Never Alcohol Use Standard Drinks/Week Comments Yes 0 (1 standard drink = 0.6 oz pure alcoho l) rare Sex Assigned at Date Recorded Not on file documented as of this encounter Miscellaneous Notes Telephone Encounter - Ana Wei RN - 02/03/2018 4:24 PM CDT Pt [...] on filedocumented in this encounter Care Teams Stripper Cutter Machine Relationship Specialty Start Date End Date Clinic - [facility] PCP - General 12/10/17 03/12/18 [place] [address] [place], [place] [address] No Ref-Primary, Physician PCP - General 03/13/18 09/15/18 Isis Grace PA-C PCP - Assigned PCP 08/03/17 06/06/18 [address] [place] [address] Isis Grace PA-C Assigned PCP 08/03/17 06/06/18 [address] [place] [address] documented as of this encounter
--- OUTSIDE RECORDS SUMMARY | 2022-02-16 10:55 | XMS_ITS | Encounter Summary ---
:1975 Author Organization [place] Address [address] [facility] [place] [address] Care Team Providers Name Role Phone No Ref-Primary, Physician Primary Care Provider [phone] Raghu Freed PA-C Unavailable [phone] Encounter Details Date Type Department Care [...] as of this encounter Care Teams Manager Truck Relationship Specialty Start Date End Date No Ref-Primary, Physician PCP - General 03/13/18 09/15/18 Raghu Freed PA-C Assigned PCP 06/07/18 09/19/18 [address] [place] [address] documented as of this encounter
--- OUTSIDE RECORDS SUMMARY | 2022-02-16 10:55 | XMS_ITS | Encounter Summary ---
:1975 Author Organization [place] Address [address] [facility] [place] [address] Care Team Providers Name Role Phone No Ref-Primary, Physician Primary Care Provider Isis Grace PA-C Unavailable Isis Grace PA-C Unavailable Reason for Visit Reason Comments Weight Loss Encounter Details Date Type Department Care Team Description 05/28/[address] [facility] Raghu Freed Situatio nal depression (Primary Dx); [facility] [place] [facility] [place] Overweight (BMI 25.0-29.9) [address] [place] [address] [phone] Social History Tobacco Use Types Packs/Day Years Used Date Smoking Tobacco: Never Smokeless Tobacco: Never Alcohol Use Standard Drinks/Week Comments Yes 0 (1 standard drink = 0.6 oz pure alcoho l) rare Sex Assigned at Date Recorded Not on file documented as of this encounter Last Filed Vital Signs Vital Sign Reading Time Taken Comments Blood Pressure 127/73 05/28/2018 1:42 PM [facility] Pulse 103 05/28/2018 1:42 PM [facility] Temperature 36.8 ??C (98.2 ??F) 05/28/2018 1:42 PM [facility] Respiratory Rate 18 05/28/2018 1:42 PM [facility] Oxygen Saturation - - Inhaled Oxygen Concentration - - Weight 71.7 kg (158 lb) 05/28/2018 1:42 PM [facility] Height - - Body Mass Index 27.12 04/01/2018 3:56 PM [facility] documented in this encounter Patient Instructions Patient InstructionsRaghu Freed PA-C - 05/28/2018 1:30 PM [facility] 1. wellbutrin- 150 mg XL once daily. Can help with mood and possibly weight. 2. Endocrine work. This includes simple blood tests and if work up normal. Great. If not, Clara hernandez is at our clinic and she is an director marketing analytics that we can. 3. Weight loss clinic: nutrition or this with medication management. They are in [place]. 4. Weight management assistant softball coach. I will check and see if you qualify for this. IN COMPANION documented in this encounter Progress Notes Raghu [...] with stress of sending her son to [place] for medical management. She states she works [...] night. She states she has seen a obedience trainer at her gym and has tried [...] It is felt better consultation with a through freight engineer would be beneficial for patient to [...] options as described above. Raghu Freed PA-C [facility] IN COMPANION documented in this encounter Plan of Treatment Not on filedocumented as of this encounter Visit Diagnoses Diagnosis Situational depression - Primary Overweight (BMI 25.0-29.9) Overweight documented in this encounter Care Teams Java Solutions Architect Relationship Specialty Start Date End Date No Ref-Primary, Physician PCP - General 03/13/18 09/15/18 Isis Grace PA-C PCP - Assigned PCP 08/03/17 06/06/18 [address] [place] [address] Isis Grace PA-C Assigned PCP 08/03/17 06/06/18 [address] [place] [address] documented as of this encounter
--- OUTSIDE RECORDS SUMMARY | 2022-02-16 10:55 | XMS_ITS | Encounter Summary ---
:1975 Author Organization [place] Address [address] [facility] [place] [address] Care Team Providers Name Role Phone Raghu Freed PA-C Unavailable [phone] Clinic - [facility] Primary Care Provider Encounter Details Date Type [...] documented as of this encounter Care Teams Calibration Checker Relationship Specialty Start Date End Date [facility] - [facility] PCP - General 09/16/18 [address] [place] [address] Raghu Freed PA-C Assigned PCP 06/07/18 09/19/18 [address] [place] [address] documented as of this encounter
--- OUTSIDE RECORDS SUMMARY | 2022-02-16 10:55 | XMS_ITS | Encounter Summary ---
:1975 Author Organization [place] Address [address] [place] [address] Care Team Providers Name Role Phone Raghu Freed PA-C Unavailable [phone] Clinic - [facility] Primary Care Provider Encounter Details Date [...] documented as of this encounter Care Teams Charger Tester Relationship Specialty Start Date End Date [facility] - [facility] PCP - General 09/16/18 [address] [place] [address] Raghu Freed PA-C Assigned PCP 06/07/18 09/19/18 [address] [place] [address] documented as of this encounter
--- OUTSIDE RECORDS SUMMARY | 2022-02-16 10:55 | XMS_ITS | Encounter Summary ---
:1975 Author Organization [place] Address [address] [place] [address] Care Team Providers Name Role Phone No Ref-Primary, Physician Primary Care Provider [phone] Isis Grace PA-C Unavailable [phone] Isis Grace PA-C Unavailable [phone] Reason for Visit Diagnostic Imaging XR - Closed Specialty Diagnoses / Procedures Referred By Contact Refer red To Contact Diagnoses Persistent cough for 3 weeks or longer [facility] Procedures XR Chest 2 Views MD Leanne [address] [place] [address]093 0 Referral ID Status Reason Start Date Expiration Date Visits Requ ested Visits Authorized [id number] Closed 04/01/2018 04/01/2019 1 1 Encounter Details Date Type Department Care Team Description 04/01/2018 Radiant Appointment [facility] [place] Persistent cough Clinic [facility] for 3 [place] [address] [facility] MD Leanne longer [place], [place] [address] [place] [address] [place], [place] [phone] Social History Tobacco Use Types Packs/Day [...] Persistent cough f or Results for this PC SUPPORT SPECIALIST 3 weeks or longer procedure are in the results section. documented in this encounter Results XR Chest 2 Views (04/01/2018 6:05 PM PC SUPPORT SPECIALIST) Anatomical Region Laterality Modality Chest Computed Radiography Specimen (Source) Anatomical Location Collection Method / Collectio n Time Received Time / Laterality Volume Impressions 04/01/2018 6:25 PM PC SUPPORT SPECIALIST IMPRESSION: No acute abnormality. NAGA ANGULO MD Narrative 04/01/2018 6:25 PM PC SUPPORT SPECIALIST CHEST TWO VIEW ?? 04/01/2018 6:05 PM [...] longer documented in this encounter Care Teams Director Education Relationship Specialty Start Date End Date No Ref-Primary, Physician PCP - General 03/13/18 09/15/18 Isis Grace PA-C PCP - Assigned PCP 08/03/17 06/06/18 [address] [place] [address] Isis Grace PA-C Assigned PCP 08/03/17 06/06/18 [address] [place], [place] [address] documented as of this encounter
--- OUTSIDE RECORDS SUMMARY | 2022-02-16 10:55 | XMS_ITS | Encounter Summary ---
:1975 Author Organization [place] Address [address] [facility] [place] [address] Care Team Providers Name Role Phone No Ref-Primary, Physician Primary Care Provider [phone] Isis Grace PA-C Unavailable Isis Grace PA-C Unavailable [phone] Encounter Details Date Type Department Care Team Description 05/20/2018 Travel Social History Tobacco Use Types Packs/Day [...] on filedocumented in this encounter Care Teams Nurse Ortho Relationship Specialty Start Date End Date No Ref-Primary, Physician PCP - General 03/13/18 09/15/18 Isis Grace PA-C PCP - Assigned PCP 08/03/17 06/06/18 [address] [place] [address] Isis Grace PA-C Assigned PCP 08/03/17 06/06/18 [address] [place] [address] documented as of this encounter
--- OUTSIDE RECORDS SUMMARY | 2022-02-16 10:55 | XMS_ITS | Encounter Summary ---
:1975 Author Organization [place] Address [address] [facility] [place] [address] Care Team Providers Name Role Phone No Ref-Primary, Physician Primary Care Provider [phone] Isis Grace PA-C Unavailable [phone] Isis Grace PA-C Unavailable [phone] Encounter Details Date Type Department Care Team [...] filedocumented in this encounter Care Teams Senior Java Web Application Developer Relationship Specialty Start Date End Date No Ref-Primary, Physician PCP - General 03/13/18 09/15/18 Isis Grace PA-C PCP - Assigned PCP 08/03/17 06/06/18 [address] [place] [address] Isis Grace PA-C Assigned PCP 08/03/17 06/06/18 [address] [place] [address] documented as of this encounter
--- OUTSIDE RECORDS SUMMARY | 2022-02-16 10:55 | XMS_ITS | Encounter Summary ---
:1975 Author Organization [place] Address [address] [facility] [place] [address] Care Team Providers Name Role Phone No Ref-Primary, Physician Primary Care Provider [phone] Raghu Freed PA-C Unavailable [phone] Encounter Details Date Type Department Care [...] on filedocumented in this encounter Care Teams Band Builder Relationship Specialty Start Date End Date No Ref-Primary, Physician PCP - General 03/13/18 09/15/18 Raghu Freed PA-C Assigned PCP 06/07/18 09/19/18 [address] [place] [address] documented as of this encounter
--- OUTSIDE RECORDS SUMMARY | 2022-02-16 10:55 | XMS_ITS | Encounter Summary ---
:1975 Author Organization [place] Address [address] [facility] [place] [address] Care Team Providers Name Role Phone Raghu Freed PA-C Unavailable [phone] Clinic - [facility] Primary Care Provider Reason for Visit Reason Comments Joint Pain Encounter Details Date Type Department Care Team Description 09/16/2018 Emergency [facility] Valerie Aj Sciatica of right side; [facility] Emergency Dep karoline Sullivan MD Left wrist pain; [address] [facility] EMERGENCY PHYSICIANS Generalized weakness; [place] Anemia, unspecified type [phone] [address] [place] [address] (Wo rk) Social History Tobacco Use Types [...] through Care Everywhere. Pain, Acute, Uncertain Cause (Ethiopian)BACK PAIN W/ SCIATICA (ICELANDIC)Weakness (Uncertain Cause) (Ethiopian)Anemia (Ethiopian)documented in this encounter Medications at Time of [...] she was riding in a car to [place] when she developed right leg pain, right [...] days ago while she was driving to [place] for a graduation. 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 Allergies: Compazine Tamiflu Medications: Wellbutrin Celexa Past Medical History: Abnormal pap smear Anemia Menorrhagia, premenopausal Ovarian cyst Depression Past Surgical History: Colposcopy cervix, loop electrode biopsy Family History: HTN Social History: Negative for tobacco use. Negative for alcohol use. 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 Rate 73 bpm. IN interval 144. QRS duration 86. QT/QTc 388/427. P-R-T axis 72 56 42. Normal sinus rhythm. Normal ECG. Read time: 903 Laboratory: CBC: WBC: 4.8, HGB: 8.4 (L), PLT: 312 BMP: Chloride 110 (H), o/w WNL (Creatinine: 0.68) Magnesium: 1.8 ESR: 17 TSH: 1.04 Lyme disease Regi with reflex to WB serum: pending Interventions: 08 Advil 600 mg PO Emergency Department Course: [...] transfusion or further emergent workup for this. Cer tainly could factor into her weakness although this [...] provider's statements to me. Pablito Elias 09/16/2018 [facility] EMERGENCY DEPARTMENT Valerie Aj MD 09/22/18 0400 [...] EKG 12 lead (09/16/2018 8:58 AM CDT) [facility] gist Method Time Signature Interpretation ECG [...] Disease 0.11 0.00 - 09/16/2018 [facility] 0.89 4:50 PM CDT [facility] Comment: Negative, Absence of detectable Borrelia burdorferi [...] Organization Address City/State/ZIP Code Phon e Number [facility] [address] [place], [place] [id number] [place] [address] TSH with free T4 reflex (09/16/2018 8:46 AM CDT) athologist Signature TSH 1.04 0.40 - 4.00 09/16/2018 [facility] mU/L 9:29 AM CDT HOSPITAL Specimen Anatomical Collection Method Collection Time Receive d Time (Source) Location / / Volume Laterality Blood specimen 09/16/2018 8:46 AM 019 8:57 (specimen) CDT AM CDT Valerie Aj MD LAB - BLOOD ORDERABLES Performing Organization Address City/State/ZIP Code Phon e Number [facility] [address] [id number] [facility] [address] [place], [place] [address], [facility] [phone] Erythrocyte sedimentation rate auto (09/16/2018 8:46 AM CDT) athologist Signature Sed Rate 17 0 - 20 mm/h 09/16/2018 [facility] 9:27 AM CDT HOSPITAL Specimen Anatomical Collection Method Collection Time Receive d Time (Source) Location / / Volume Laterality Blood specimen 09/16/2018 8:46 AM 019 8:57 (specimen) CDT AM CDT Valerie Aj MD LAB - BLOOD ORDERABLES Performing Organization Address City/[facility]/ZIP [facility] Phon e Number M [facility] [address] [place], [place] [address] [facility] [address] [place], [place] [address], [facility] [phone] Magnesium (09/16/2018 8:46 AM CDT) athologist Signature Magnesium 1.8 1.6 - 2.3 09/16/2018 [place] mg/dL 9:19 AM CDT [facility] Specimen Anatomical Collection Method Collection Time Receive d Time (Source) Location / / Volume Laterality Blood specimen 09/16/2018 8:46 AM 019 8:57 (specimen) CDT AM CDT Valerie Aj MD LAB - BLOOD ORDERABLES Performing Organization Address City/State/ZIP Code Phon e Number M [facility] [address] [place] [address] [facility] [address] [place] [address], [facility] [phone] (ABNORMAL) Basic metabolic panel (09/16/2018 8:46 AM CDT) athologist Signature Sodium 141 133 - 144 09/16/2018 [place] mmol/L 9:13 AM CDT [facility] Potassium 3.9 3.4 - 5.3 09/16/2018 [place] mmol/L 9:13 AM [facility] Chloride 110 (H) 94 - 109 09/16/2018 [place] mmol/L 9:13 AM [facility] Carbon Dioxide 27 20 - 32 09/16/2018 [place] mmol/L 9:19 AM [facility] Anion Gap 4 3 - 14 09/16/2018 [place] mmol/L 9:19 AM [facility] Glucose 91 70 - 99 09/16/2018 [place] mg/dL 9:19 AM [facility] Urea Nitrogen 7 7 - 30 09/16/2018 [place] mg/dL 9:19 AM [facility] Creatinine 0.68 0.52 - 09/16/2018 [place] 1.04 mg/dL 9:19 AM [facility] GFR Estimate >90 >60 09/16/2018 [place] mL/min/{1. 9:19 AM [facility] 73_m2} HOSPITAL Comment: Non GFR Calc Starting 04/21/2018, serum creatinine ba sed estimated GFR (eGFR) will be calculated using the Chronic Kidney Dise [facility] Epidemiology Collaboration (CKD-EPI) equation. GFR Estimate If >90 >60 mL/min/{1.73_m2} 09/16/2018 9: 19 AM [facility] Comment: GFR Calc Starting 04/21/2018, serum creatinine ba sed estimated GFR (eGFR) will be calculated using the Chronic Kidney Dise [facility] Epidemiology Collaboration (CKD-EPI) equation. Calcium 8.5 8.5 - 10.1 mg/dL 09/16/2018 9:[address] [facility] Specimen Anatomical Collection Method Collection Time Receive d Time (Source) Location / / Volume Laterality Blood specimen 09/16/2018 8:46 AM 019 8:57 (specimen) CDT AM CDT Valerie Aj MD LAB - BLOOD ORDERABLES Performing Organization Address City/State/ZIP Code Phon e Number [place] [phone] [place] [address] [facility] [address] [place], [place] [address] [facility] [phone] [place] [address] [place] [address], [facility] (ABNORMAL) CBC with platelets differential (09/16/2018 8:46 AM [facility]) [facility] gist Method Time Signature WBC 4.8 4.0 - 09/16/2018 [facility] 11.0 9:01 AM [facility] 10e9/L [facility] RBC Count 3.92 3.8 - 5.2 09/16/2018 [facility] 10e12/L 9:01 AM [facility] Hemoglobin 8.4 (L) 11.7 - 09/16/2018 [facility] 15.7 g/dL 9:01 AM [facility] Hematocrit 28.8 (L) 35.0 - 09/16/2018 [facility] 47.0 % 9:01 AM [facility] MCV 74 (L) 78 - 100 09/16/2018 [facility] fl 9:01 AM [facility] MCH 21.4 (L) 26.5 - 09/16/2018 [facility] 33.0 pg 9:01 AM [facility] MCHC 29.2 (L) 31.5 - 09/16/2018 [facility] 36.5 g/dL 9:01 AM [facility] RDW 17.4 (H) 10.0 - 09/16/2018 [facility] 15.0 % 9:01 AM [facility] Platelet Count 312 150 - 450 09/16/2018 [facility] 10e9/L 9:01 AM [facility] Diff Method Automated 09/16/2018 [facility] Method 9:01 AM [facility] % Neutrophils 63.4 % 09/16/2018 [facility] 9:01 AM [facility] % Lymphocytes 25.5 % 09/16/2018 [facility] 9:01 AM [facility] % Monocytes 8.8 % 09/16/2018 [facility] 9:01 AM [facility] % Eosinophils 1.3 % 09/16/2018 [facility] 9:01 AM [facility] % Basophils 0.8 % 09/16/2018 [facility] 9:01 AM [facility] % Immature 0.2 % 09/16/2018 [facility] Granulocytes 9:01 AM [facility] Nucleated RBCs 0 0 /100 09/16/2018 [facility] 9:01 AM [facility] Absolute 3.0 1.6 - 8.3 09/16/2018 [facility] Neutrophil 10e9/L 9:01 AM [facility] Absolute 1.2 0.8 - 5.3 09/16/2018 [facility] Lymphocytes 10e9/L 9:01 AM [facility] Absolute 0.4 0.0 - 1.3 09/16/2018 [facility] Monocytes 10e9/L 9:01 AM [facility] Absolute 0.1 0.0 - 0.7 09/16/2018 [facility] Eosinophils 10e9/L 9:01 AM [facility] Absolute 0.0 0.0 - 0.2 09/16/2018 [facility] Basophils 10e9/L 9:01 AM [facility] Abs Immature 0.0 0 - 0.4 09/16/2018 [facility] Granulocytes 10e9/L 9:01 AM [facility] Absolute 0.0 09/16/2018 [facility] Nucleated RBC 9:01 AM [facility] Specimen Anatomical Collection Method Collection Time Receive d Time (Source) Location / / Volume Laterality Blood specimen 09/16/2018 8:46 AM 019 8:57 (specimen) CDT AM CDT Valerie Aj MD LAB - BLOOD ORDERABLES Performing Organization Address City/State/ZIP Code Phon e Number [place] [address] [address] [phone] documented in this encounter Visit Diagnoses Diagnosis [...] documented as of this encounter Care Teams Door To Door Lead Generation Relationship Specialty Start Date End Date Clinic - [facility] PCP - General 09/16/18 [address] [place] [address] Raghu Freed PA-C Assigned PCP 06/07/18 09/19/18 [address] [place] [address] documented as of this encounter
--- OUTSIDE RECORDS SUMMARY | 2022-02-16 10:55 | XMS_ITS | Encounter Summary ---
:1975 Author Organization [place] Address [address] [facility] [place] [address] Care Team Providers Name Role Phone No Ref-Primary, Physician Primary Care Provider Isis Grace PA-C Unavailable Isis Grace PA-C Unavailable Reason for Visit Reason Comments Cough cough, fatigue X 1 week Encounter Details Date Type Department Care Team Description 03/13/2018 Office Visit [facility] Marlene Mitchell, Mtichel e bronchitis, [facility] [place] PAJie unspecified organism [id number] [place] [address] (Primary Dx) [place] [address] [phone] (Wo rk) Social History Tobacco Use Types Packs/Day Years Used Date Smoking Tobacco: Never Smokeless Tobacco: Never Alcohol Use Standard Drinks/Week Comments Yes 0 (1 standard drink = 0.6 oz pure alcoho l) rare Sex Assigned at Date Recorded Not on file documented as of this encounter Last Filed Vital Signs Vital Sign Reading Time Taken Comments Blood Pressure 136/80 03/13/2018 1:43 PM ARTS AND CRAFTS TEACHER Pulse 90 03/13/2018 1:43 PM ARTS AND CRAFTS TEACHER Temperature 36.4 ??C (97.6 ??F) 03/13/2018 1:43 PM ARTS AND CRAFTS TEACHER Respiratory Rate 14 03/13/2018 1:43 PM ARTS AND CRAFTS TEACHER Oxygen Saturation 100% 03/13/2018 1:43 PM ARTS AND CRAFTS TEACHER Inhaled Oxygen Concentration - - Weight 68 kg (150 lb) 03/13/2018 1:43 PM ARTS AND CRAFTS TEACHER Height - - Body Mass Index 25.75 [...] Throat: YES- scratchy from coughing ?? Cough: VIU-[id number]-[id number], productive of yellow sputum, productive of green [...] 1 Inhaler; Refill: [address]lene Mitchell PA-C [facility] AND CRAFTS TEACHER documented in this encounter Plan of Treatment Not on filedocumented as of this encounter Visit Diagnoses Diagnosis Acute bronchitis, unspecified organism - Primary documented in this encounter Care Teams Arcade Game Technician Relationship Specialty Start Date End Date No Ref-Primary, Physician PCP - General 03/13/18 09/15/18 Isis Grace PA-C PCP - Assigned PCP 08/03/17 06/06/18 [address] [place] [address] Isis Grace PA-C Assigned PCP 08/03/17 06/06/18 [address] [place] [address] documented as of this encounter
--- OUTSIDE RECORDS SUMMARY | 2022-02-16 10:55 | XMS_ITS | Encounter Summary ---
:1975 Author Organization [place] Address [address] [place] [place] [address] Care Team Providers Name Role Phone Raghu Freed PA-C Unavailable [phone] Clinic - [facility] Primary Care Provider Iirna Ricci TICKET CLERK Unavailable Reason for Visit Reason Comments Follow Up [facility] ER on 09/16/18 rt side s ciatica, left wrist pain and general weakness -feeling off. Encounter Details Date Type Department Care Team Description 09/17/2018 Office Visit [facility] Irina Ricci Other ir on deficiency anemia (Primary Dx); [facility] [place] RODERICK Mckeon Situational depression [address] [place] [address] [phone] Social History Tobacco Use Types Packs/Day Years Used Date Smoking Tobacco: Never Smokeless Tobacco: Never Tobacco Cessation: Counseling Given: No Alcohol Use [...] x 1 month Recheck Hgb Irina Ricci MAIL CARRIER documented in this encounter Progress Notes Irina Ricci NP - 09/17/2018 1:00 PM CDT SUBJECTIVE: Alyssa Aguillon is a 43 year old female who presents to clinic today for the following health issues: ED/UC Followup: Facility: [facility] Date of visit: 09/16/18 Reason for [...] x 1 month Recheck Hgb Irina Ricci MAIL CARRIER Irina Ricci NP [facility] documented in this encounter Nursing Notes Karis [...] Ferritin 2 (L) 8 - 252 09/18/2018 [facility] ng/mL 10:[address] [facility] Specimen Anatomical Collection Method Collection Time Receive d Time (Source) Location / / Volume Laterality Blood specimen 09/17/2018 1:28 PM 019 1:34 (specimen) CDT PM CDT Irina Ricci NP LAB - BLOOD ORDERABLES Performing Organization Address City/State/ZIP Code Phon e Number [facility] [address] [place] [address] (ABNORMAL) Iron and iron binding capacity (09/17/2018 1:28 PM CDT) Analysis Performed At Patho logist Time Signature Iron 23 (L) 35 - 180 09/18/2018 [facility] ug/dL 10:47 AM CDT [facility] Iron Binding 414 240 - 430 09/18/2018 [facility] Cap ug/dL 10:50 AM CDT [facility] Iron Saturation 6 (L) 15 - 46 % 09/18/2018 [facility] Index 10:50 AM CDT [facility] Specimen Anatomical Collection Method Collection Time Receive d Time (Source) Location / / Volume Laterality Blood specimen 09/17/2018 1:28 PM 019 1:34 (specimen) CDT PM CDT Irina Ricci TICKET CLERK LAB - BLOOD ORDERABLES Performing Organization Address City/State/ZIP Code Phon e Number [facility] [address] [place] [address] [phone] [facility] [address] [place], [place] [address] [facility] [address] [address], [place] [phone] documented in this encounter Visit Diagnoses Diagnosis Other iron deficiency anemia - Primary Situational depression documented in this encounter Additional Health Concerns Assessment Noted Time PHQ-9 Depression Total Score: 12 09/17/2018 1:32 PM CD T documented as of this encounter Care Teams Tool Grinder Operator Relationship Specialty Start Date End Date Clinic - [facility] PCP - General 09/16/18 [address] [place] [address] Raghu Freed PA-C Assigned PCP 06/07/18 09/19/18 [address] [place], [place] [id number] Irina Ricci NP Assigned PCP 09/20/18 01/30/19 [address] [place] [address] documented as of this encounter
--- OUTSIDE RECORDS SUMMARY | 2022-02-16 10:55 | XMS_ITS | Encounter Summary ---
:1975 Author Organization [place] Address [address] [facility] [place] [address] Care Team Providers Name Role Phone Clinic - [facility] Primary Care Provider Irina Ricci COCOA BEAN ROASTER Unavailable Reason for Visit Reason Comments Dizziness Tachycardia Encounter Details Date Type Department Care Team Description 11/25/2018 [facility] HaDaniel saenz Nonint ractable episodic headache, unspecified headache type; [place] Dizziness Dept [facility] [address] [place], [place] [address] [place] [address] [place], [place] [phone] (Wo rk) Social History Tobacco Use Types [...] racing and dizziness off and on since 1900 last night. Headache and nausea. ABC intact [...] Alcohol use: yes Drug use: no PCP: [facility] Marital Status: Single Review of Systems [...] -- -- 86 83 15 -- -- 11/25/18 1918 (!) 153/99 98.6 ??F (37 ??C) Temporal [...] Course ECG: ECG (19:10:36): Rate 71 bpm. DC interval 138. QRS duration 76. QT/QTc 384/417. [...] 2. Dizziness R42 Disposition: discharged to home IVickie, олег serving as a scribe at 8:07 PM on 11/25/2018 to document services personally performed by Daniel Bah MD based on my observations and the provider's statements to me. Vickie العراقي 11/25/2018 [facility] EMERGENCY DEPARTMENT Daniel Bah MD 11/26/18 0243 [...] PM 9 8:55 CDT PM CDT Daniel Bah MD LAB - BEAKER POCT Performing Organization Address City/State/ZIP Code Phon e Number [facility] POINT OF CARE TEST, HANDHELD METER POINT OF CARE TEST, HANDHELD METER Comprehensive metabolic panel (11/25/2018 8:38 PM [facility]) athologist Signature Sodium 139 133 - 144 11/25/2018 [facility] mmol/L 8:58 PM [facility] Potassium 3.5 3.4 - 5.3 11/25/2018 [facility] mmol/L 8:58 PM [facility] Chloride 107 94 - 109 11/25/2018 [facility] mmol/L 8:58 PM [facility] Carbon Dioxide 26 20 - 32 11/25/2018 [place] mmol/L 9:05 PM [facility] Anion Gap 6 3 - 14 11/25/2018 [facility] mmol/L 9:05 [facility] Glucose 81 70 - 99 11/25/2018 [facility] mg/dL 9:05 PM [facility] Urea Nitrogen 8 7 - 30 11/25/2018 [facility] mg/dL 9:05 PM [facility] Creatinine 0.64 0.52 - 11/25/2018 [facility] 1.04 mg/dL 9:05 PM [facility] GFR Estimate >90 >60 11/25/2018 [place] mL/min/{1. 9:05 PM [facility] 73_m2} HOSPITAL Comment: Non GFR Calc Starting 04/21/2018, serum creatinine ba sed estimated GFR (eGFR) will be calculated using the Chronic Kidney Dise [facility] Epidemiology Collaboration (CKD-EPI) equation. GFR Estimate If >90 >60 mL/min/{1.73_m2} 11/25/2018 9: 05 PM [facility] Comment: GFR Calc Starting 04/21/2018, serum creatinine ba sed estimated GFR (eGFR) will be calculated using the Chronic Kidney Dise [facility] Epidemiology Collaboration (CKD-EPI) equation. Calcium 9.0 8.5 - 10.1 mg/dL 11/25/2018 9:05 PM [facility] Bilirubin Total 0.6 0.2 - 1.3 mg/dL 11/25/2018 9:07 PM [facility] Albumin 3.7 3.4 - 5.0 g/dL 11/25/2018 9:07 PM [facility] Protein Total 8.0 6.8 - 8.8 g/dL 11/25/2018 9:07 PM [facility] Alkaline Phosphatase 70 40 - 150 U/L 11/25/2018 9:07 PM [facility] ALT 14 0 - 50 U/L 11/25/2018 9:07 PM [facility] AST 20 0 - 45 U/L 11/25/2018 9:07 PM [facility] Specimen Anatomical Collection Method Collection Time Receive d Time (Source) Location / / Volume Laterality Blood specimen 11/25/2018 8:38 PM 019 8:44 (specimen) CDT CDT Daniel Bah MD LAB - BLOOD ORDERABLES Performing Organization Address City/State/ZIP Code Phon e Number [place] [address] [place] [address] HOSP[facility] [address] [phone] (ABNORMAL) CBC with platelets differential (11/25/2018 8:38 PM CDT) [facility] Method Time Signature WBC 6.9 4.0 - 11/25/2018 [facility] 11.0 8:49 PM [facility] 10e9/L [facility] RBC Count 3.89 3.8 - 5.2 11/25/2018 [facility] 10e12/L 8:49 PM [facility] Hemoglobin 8.4 (L) 11.7 - 11/25/2018 [facility] 15.7 g/dL 8:49 PM [facility] Hematocrit 29.0 (L) 35.0 - 11/25/2018 [facility] 47.0 % 8:49 PM [facility] MCV 75 (L) 78 - 100 11/25/2018 [facility] fl 8:49 PM [facility] MCH 21.6 (L) 26.5 - 11/25/2018 [facility] 33.0 pg 8:49 PM [facility] MCHC 29.0 (L) 31.5 - 11/25/2018 [facility] 36.5 g/dL 8:49 PM [facility] RDW 17.0 (H) 10.0 - 11/25/2018 [facility] 15.0 % 8:49 PM [facility] Platelet Count 324 150 - 450 11/25/2018 [facility] 10e9/L 8:49 PM [facility] Diff Method Automated 11/25/2018 [facility] Method 8:49 PM [facility] % Neutrophils 63.6 % 11/25/2018 [facility] 8:49 PM [facility] % Lymphocytes 27.5 % 11/25/2018 [facility] 8:49 PM [facility] % Monocytes 7.1 % 11/25/2018 [facility] 8:49 PM [facility] % Eosinophils 0.9 % 11/25/2018 [facility] 8:49 PM [facility] % Basophils 0.6 % 11/25/2018 [facility] 8:49 PM [facility] % Immature 0.3 % 11/25/2018 [facility] Granulocytes 8:49 PM [facility] Nucleated RBCs 0 0 /100 11/25/2018 [facility] 8:49 PM [facility] Absolute 4.4 1.6 - 8.3 11/25/2018 [facility] Neutrophil 10e9/L 8:49 PM [facility] Absolute 1.9 0.8 - 5.3 11/25/2018 [facility] Lymphocytes 10e9/L 8:49 PM [facility] Absolute 0.5 0.0 - 1.3 11/25/2018 [facility] Monocytes 10e9/L 8:49 PM [facility] Absolute 0.1 0.0 - 0.7 11/25/2018 [facility] Eosinophils 10e9/L 8:49 PM [facility] Absolute 0.0 0.0 - 0.2 11/25/2018 [facility] Basophils 10e9/L 8:49 PM [facility] Abs Immature 0.0 0 - 0.4 11/25/2018 [facility] Granulocytes 10e9/L 8:49 PM [facility] Absolute 0.0 11/25/2018 [facility] Nucleated RBC 8:49 PM [facility] Specimen Anatomical Collection Method Collection Time Receive d Time (Source) Location / / Volume Laterality Blood specimen 11/25/2018 8:38 PM 019 8:44 (specimen) CDT PM CDT Daniel Bah MD LAB - BLOOD ORDERABLES Performing Organization Address City/State/ZIP Code Phon e Number [facility] [address] [place], [place] [address] [facility] [address] [place], [place] [address] [facility] [phone] EKG 12 lead (11/25/2018 7:10 PM CDT) [facility] gist Method Time Signature Interpretation ECG Click [...] 25 mg, Intravenous, ONCE, On Fri11/25/18 at 221, For 1 dose, For ordered IV doses [...] mg (COMPLETED) 2100 (Given - Provider: Skylar Andujar RN) 1 mg, Intravenous, ONCE, Fri11/25/18 at 2028, For 1 dose, This drug may cause significant respiratory depression. Monitor respiratory status and vital signs carefully for 1 hour after each dose. metoclopramide (REGLAN) injection 10 mg (COMPLETED) 2237 (Given - Provider: Carmen Valderrama RN) 10 mg, Intravenous, Administer over 2 Mi nutes, ONCE, Fri11/25/18 at 2215, For 1 dose, Avoid use if patient has full bowel obstruction or perforation. Irritant. For ordered IV doses 1-10 mg, give IV Push undiluted over 2 minutes. documented in this encounter Additional Health Concerns Assessment Noted Time PHQ-9 Depression Total Score: 12 09/17/2018 1:32 PM CD T documented as of this encounter Care Teams Optical Manager Relationship Specialty Start Date End Date Clinic - [facility] PCP - General 09/16/18 [address] [place] [address] Irina Ricci, RODERICK Assigned PCP 09/20/18 01/30/19 [address] [place] [address] documented as of this encounter
--- OUTSIDE RECORDS SUMMARY | 2022-02-16 10:55 | XMS_ITS | Encounter Summary ---
:1975 Author Organization [place] Address [address] [facility] [place] [address] Care Team Providers Name Role Phone No Ref-Primary, Physician Primary Care Provider [phone] Isis Grace PA-C Unavailable Isis Grace PA-C Unavailable [phone] Encounter Details Date Type Department Care Team [...] on filedocumented in this encounter Care Teams Sales Administration Specialist Relationship Specialty Start Date End Date No Ref-Primary, Physician PCP - General 03/13/18 09/15/18 Isis Grace PA-C PCP - Assigned PCP 08/03/17 06/06/18 [address] [place] [address] Isis Grace PA-C Assigned PCP 08/03/17 06/06/18 [address] [place] [address] documented as of this encounter
--- OUTSIDE RECORDS SUMMARY | 2022-02-16 10:55 | XMS_ITS | Encounter Summary ---
:1975 Author Organization [place] Address [address] [facility] [place] [address] Care Team Providers Name Role Phone No Ref-Primary, Physician Primary Care Provider [phone] Raghu Freed PA-C Unavailable [phone] Reason for Referral Mental Health Outpatient (Routine) - Closed Specialty Diagnoses / Procedures Referred By Contact Refer red To Contact Diagnoses [place], [place] [address] [place], [place] [address] Referral ID Status Reason Start Date Expiration Date Visits Requ ested Visits Authorized [id number] Closed 08/27/2018 08/27/2019 1 1 Scheduling Instructions Please have her see [facility] in [place] Reason for Visit Reason Comments Depression Encounter Details Date Type Department Care Team Description 08/27/2018 Office Visit [facility] Hunter Roman Depres sion, [facility] Moshe WELLS unspecified depression [address] [facility] [address] type (Primary Dx) [place] [address] [phone] Social History Tobacco Use Types Packs/Day Years [...] - Adult; Outpatient Treatment; Individual/Couples/Family/Group Therapy/Health Psychology; [facility]: [facility] ; We will contact you to schedule the ap pointment or please call with any questions See Patient Instructions Hunter Roman MD [facility] documented in this encounter Plan of Treatment Scheduled Referrals Name Type Priority Associated Diagnoses Order [facility] REFERRAL - Referral Routine Depression, unsp ecified Ordered: 08/27/2018 Adult; Outpatient depression type Treatment; Individual/Couples/Famil y/Group Therapy/Health Psychology; [facility]: [facility] ; We will contact you to schedule the appointment or please call with any questions documented as of this encounter Visit Diagnoses Diagnosis Depression, unspecified depression type - Primary documented in this encounter Additional Health Concerns Assessment Noted Time PHQ-9 Depression Total Score: 12 08/27/2018 9:51 AM CD T documented as of this encounter Care Teams Transcript Evaluator Relationship Specialty Start Date End Date No Ref-Primary, Physician PCP - General 03/13/18 09/15/18 Raghu Freed PA-C Assigned PCP 06/07/18 09/19/18 [address] [place] [address] documented as of this encounter
--- OUTSIDE RECORDS SUMMARY | 2022-02-16 10:55 | XMS_ITS | Encounter Summary ---
:1975 Author Organization [place] Address [address] [facility] [place] [address] Support Name Relationship Address Phone Leanne Wu Unavailable Unavailable [phone] [place] [address] Team Providers Name Role Phone No Ref-Primary, Physician Primary Care Provider Isis Grace PA-C Unavailable Isis Grace PA-C Unavailable Reason for Referral Diagnostic Imaging XR - Closed Specialty Diagnoses / Procedures Referred By Contact Refer red To Contact Diagnoses Persistent cough for 3 weeks or longer Tea Lennon Procedures XR Chest 2 Views MD Leanne [address] [place], [place] [address] Referral ID Status Reason Start Date Expiration Date Visits Requ ested Visits Authorized [id number] Closed 04/01/2018 04/01/2019 1 1 AL SURGEON Reason for Visit Reason Comments URI Encounter Details Date Type Department Care Team Description 04/01/2018 Office Visit [facility] Ho Lennon tent cough for 3 weeks or longer (Primary Dx); [facility] [place] Tea Perdomo, Nasal polyp [address] [address], [place] [address] [place] [address] [place], [place] [phone] [address] Social History Tobacco Use Types Packs/Day Years Used Date Smoking Tobacco: Never Smokeless Tobacco: Never Alcohol Use Standard Drinks/Week Comments Yes 0 (1 standard drink = 0.6 oz pure alcoho l) rare Sex Assigned at Date Recorded Not on file documented as of this encounter Last Filed Vital Signs Vital Sign Reading Time Taken Comments Blood Pressure 120/62 04/01/2018 3:56 PM SPINAL SURGEON Pulse 79 04/01/2018 3:56 PM SPINAL SURGEON Temperature 36.5 ??C (97.7 ??F) 04/01/2018 3:56 PM SPINAL SURGEON Respiratory Rate 18 04/01/2018 3:56 PM SPINAL SURGEON Oxygen Saturation 100% 04/01/2018 3:56 PM SPINAL SURGEON Inhaled Oxygen Concentration - - Weight 68.1 kg (150 lb 3.2 oz) 04/01/2018 3:56 PM SPINAL SURGEON Height 162.6 cm (5' 4) 04/01/2018 3:56 PM SPINAL SURGEON Body Mass Index 25.78 04/01/2018 3:56 PM SPINAL SURGEON documented in this encounter Patient Instructions Patient InstructionsTea Lennon MD - 04/01/2018 3:40 PM CST ?? Symptomatic cares, humidified air, fluids, and rest, only as discussed. ?? [id number] medications, only as discussed. ?? Trial of [...] discussed at follow-up appointment, only as appropriate. AL SURGEON documented in this encounter Progress Notes Tea Lennon MD - 04/01/2018 3:40 PM CST SUBJECTIVE: Alyssa Aguillon is a 42 year old female presenting with a chief complaint of Chief Complaint Patient presents with ??? URI She is an established patient of [facility]. Acute Illness Acute illness concerns: Persistent cough [...] fluids, and rest, only as discussed. ?? Wlsc-[id number]-gqhuecn medications, only as discussed. ?? Trial of [...] discussion of follow up. Tea Lennon MD [facility] AL SURGEON documented in this encounter Plan of Treatment Not on filedocumented as of this encounter Results XR Chest 2 Views (04/01/2018 6:05 PM SPINAL SURGEON) Anatomical Region Laterality Modality Chest Computed Radiography Specimen (Source) Anatomical Location Collection Method / Collectio n Time Received Time / Laterality Volume Impressions 04/01/2018 6:25 PM SPINAL SURGEON IMPRESSION: No acute abnormality. NAGA ANGULO MD Narrative 04/01/2018 6:25 PM SPINAL SURGEON CHEST TWO VIEW ?? 04/01/2018 6:05 PM [...] longer documented in this encounter Care Teams Clinical Studies Specialist Relationship Specialty Start Date End Date No Ref-Primary, Physician PCP - General 03/13/18 09/15/18 Isis Grace PA-C PCP - Assigned PCP 08/03/17 06/06/18 [address] [place] [address] Isis Grace PA-C Assigned PCP 08/03/17 06/06/18 [address] [place] [address] documented as of this encounter
--- OUTSIDE RECORDS SUMMARY | 2022-02-16 10:56 | XMS_ITS | Encounter Summary ---
:1975 Author Organization [place] Address [address] [facility] [place] [address] Care Team Providers Name Role Phone Susie Naidu NP Primary Care Provider Reason for Visit Reason Comments Recheck Medication Encounter Details Date Type Department Care Team Description 06/05/2017 Office Visit [facility] Cheryl Grace (Primary Dx); [facility] [place] Isis Edwards PA-C Numbness and tingling in both hands [address] [facility] [id number] [place] [id number] [phone] Social History Tobacco Use Types Packs/Day Years Used Date Smoking Tobacco: Never Smokeless Tobacco: Never Alcohol Use Standard Drinks/Week Comments Yes 0 (1 standard drink = 0.6 oz pure alcoho l) rare Sex Assigned at Date Recorded Not on file documented as of this encounter Last Filed Vital Signs Vital Sign Reading Time Taken Comments Blood Pressure 111/78 06/05/2017 8:13 AM INSIDE SALES ASSOCIATE Pulse 84 06/05/2017 8:13 AM INSIDE SALES ASSOCIATE Temperature 36.8 ??C (98.3 ??F) 06/05/2017 8:13 AM INSIDE SALES ASSOCIATE Respiratory Rate - - Oxygen Saturation 98% 06/05/2017 8:13 AM INSIDE SALES ASSOCIATE Inhaled Oxygen Concentration - - Weight 73 kg (161 lb) 06/05/2017 8:13 AM INSIDE SALES ASSOCIATE Height 162.6 cm (5' 4) 06/05/2017 8:13 AM INSIDE SALES ASSOCIATE Body Mass Index 27.64 06/05/2017 8:13 AM INSIDE SALES ASSOCIATE documented in this encounter Patient Instructions Patient InstructionsAaIsis Chacon PA-C - 06/05/2017 8:00 AM INSIDE SALES ASSOCIATE (E66.3) Overweight (primary encounter diagnosis) Comment: well try another month on phentermine 30 mg Advised to cut in 1/2 at first. -up in 2-3 months Plan: phentermine 30 MG capsule (R20.0, R20.2) Numbness and tingling in both hands Comment: Plan: ? Carpal tunnel vs MS vs DE SALES ASSOCIATE documented in this encounter Progress Notes Isis Grace PA-C - 06/05/2017 8:00 AM CST SUBJECTIVE: Alyssa Aguillon is a 41 year old female who presents to clinic today for the following health issues: Alyssa states that she has had significant weight loss on phentermine in the past. She was given this in April and not done well but states she's been under a lot of stress and was not consistent taking the medication. She would like to restart Medication Followup of phentermine ?? Taking Medication as prescribed: stopped taking it for one month ?? Side Effects: none ?? Medication Helping Symptoms: yes Also, she has additional complaints of numbness and tingling sometimes in bilateral hands x 1 month.Has been working with [employer] more this month. Currently not swollen or painful Problem list and histories reviewed & adjusted, as indicated. Additional history: as documented Current Outpatient Prescriptions Medication Sig Dispense Refill ??? phentermine 30 MG capsule Take 1 capsule (30 mg) by mouth every morning 30 capsule 1 ??? phentermine 15 MG capsule Take 1 capsule (15 mg) by mouth every morning 30 capsule 0 BP Readings from Last 3 Encounters: 06/05/17 111/78 04/23/17 118/80 03/07/17 132/75 Wt Readings from Last 3 Encounters: 06/05/17 161 lb (73 kg) 04/23/17 163 lb (73.9 kg) 03/07/17 163 lb (73.9 kg) Reviewed and updated as needed this visit by clinical staff Allergies Meds Reviewed and updated as needed this visit by Provider ROS: Constitutional, HEENT, cardiovascular, pulmonary, gi and gu systems are negative, except as otherwise noted. OBJECTIVE: BP 111/78 (BP Location: Right arm, Patient Position: Chair, Cuff Size: Adult Large) Pulse 84 Temp 98.3 ??F (36.8 ??C) (Oral) Ht 5' 4 (1.626 m) Wt 161 lb (73 kg) SpO2 98% BMI 27.64 kg/m2 Body mass index is 27.64 kg/(m^2). GENERAL APPEARANCE: healthy, alert and no distress HENT: ear canals and TM's normal and nose and mouth without ulcers or lesions RESP: lungs clear to auscultation - no rales, rhonchi or wheezes CV: regular rates and rhythm, normal S1 S2, no S3 or S4 and no murmur, click or rub LYMPHATICS: normal ant/post cervical and supraclavicular nodes MS: bilateral hands: no swelling or warm hot joints. ASSESSMENT/PLAN: 1. Overweight Agreed to refill. Advised 10 % weight loss in next 2 months . Eliminate hydrogenated fats, diary andgluten - phentermine 30 MG capsule; Take 1 capsule (30 mg) by mouth every morning Dispense: 30 capsule; Refill: 1 2. Numbness and tingling in both hands Advised follow-up if continues: normal exam today. Carpal tunnel ? Isis Grace PA-C [facility] DE SALES ASSOCIATE documented in this encounter Nursing Notes Ana Sommers CMA - 06/05/2017 8:00 AM CST Chief Complaint Patient presents with ??? Recheck Medication Initial BP 111/78 (BP Location: Right arm, Patient Position: Chair, Cuff Size: Adult Large) Pulse 84 Temp 98.3 ??F (36.8 ??C) (Oral) Ht 5' 4 (1.626 m) Wt 161 lb (73 kg) SpO2 98% BMI 27.64 kg/m2 Estimated body mass index is 27.64 kg/(m^2) as calculated from the following: Height as of this encounter: 5' 4 (1.626 m). Weight as of this encounter: 161 lb (73 kg). Medication Reconciliation: complete Health Maintenance addressed: NONE n/a DE SALES ASSOCIATE documented in this encounter Plan of Treatment Not on filedocumented as of this encounter Visit Diagnoses Diagnosis Overweight - Primary Numbness and tingling in both hands documented in this encounter Care Teams Cnc Milling Machinist Relationship Specialty Start Date End Date Susie Naidu VIDEO TAPE EDITOR PCP - General Nurse Practitioner - Family 03/18/16 documented as of this encounter
--- OUTSIDE RECORDS SUMMARY | 2022-02-16 10:56 | XMS_ITS | Encounter Summary ---
:1975 Author Organization [place] Address [address] [facility] [place] [address] Care Team Providers Name Role Phone Evangelista Susie Lonny JUNIOR ANALYST Primary Care Provider Reason for Visit Reason Onset Date Comments Medication Request 07/25/2016 Tamiflu Encounter Details Date Type Department Care Team Description 07/25/[address] [facility] Elijah, Medication Request Arnold Britt Lares MD (Tamiflu) [address] [place] [phone] (Wo rk) Social History Tobacco Use Types [...] preventative Tamiflu. T'd up. Please advise. Erica Stone, RN documented in this encounter Plan of Treatment Not on filedocumented as of this encounter Visit Diagnoses Diagnosis Exposure to the flu - Primary Contact with or exposure to other viral diseases documented in this encounter Care Teams Electronic Warfare Technician Relationship Specialty Start Date End Date Susie Naidu NP PCP - General Nurse Practitioner - Family 03/18/16 documented as of this encounter
--- OUTSIDE RECORDS SUMMARY | 2022-02-16 10:56 | XMS_ITS | Encounter Summary ---
:1975 Author Organization [place] Address [address] [place] [address] Care Team Providers Name Role Phone Susie Naidu Lonny VAUGHN Primary Care Provider Reason for Visit Reason Comments RECHECK Encounter Details Date Type Department Care Team Description 04/05/2016 Office Visit [facility] Grace Hernandez Acute sinus itis, recurrence not specified, unspecified location (Primary Dx); Charo Perdomo APRN Constipation, unspecified co nstipation type [address] [facility] [place] [phone] [address] [facility] [phone] [facility] [place] MARCOS [id number] Social History Tobacco Use Types Packs/Day Years Used Date Smoking Tobacco: Never Smokeless Tobacco: Never Alcohol Use Standard Drinks/Week Comments Yes 0 (1 standard drink = 0.6 oz pure alcoho l) rare Sex Assigned at Date Recorded Not on file documented as of this encounter Last Filed Vital Signs Vital Sign Reading Time Taken Comments Blood Pressure 114/74 04/05/2016 1:20 PM POSTAL CARRIER Pulse 76 04/05/2016 1:20 PM POSTAL CARRIER Temperature 37 ??C (98.6 ??F) 04/05/2016 1:20 PM POSTAL CARRIER Respiratory Rate 16 04/05/2016 1:20 PM POSTAL CARRIER Oxygen Saturation - - Inhaled Oxygen Concentration - - Weight 74.9 kg (165 lb 1.6 oz) 04/05/2016 1:20 PM POSTAL CARRIER Height - - Body Mass Index 26.65 03/18/2016 1:42 PM POSTAL CARRIER documented in this encounter Patient Instructions Patient InstructionsMolitor, Grace Perdomo APRN CONTINUOUS WAVE OPERATOR - 04/05/2016 1:56 PM POSTAL CARRIER 1. Doxycycline 2. Warm packs to face -2 Colace (stool softener) daily -Lots of warm water -Little bit of pear or prune juice AL CARRIER documented in this encounter Progress Notes Grace Hernandez APRN CNP - 04/05/2016 1:19 PM CST SUBJECTIVE: Alyssa Aguillon is a 40 year old female who presents to clinic today for the following health issues Seen 03/18 for sinusitis and given Augmentin,stopped due to SE of upset stomach,saw dentist and sem manager who decided its sinus versus teeth,symptoms are [...] F/u with PCP if no improvement. TONNY Vizcaino-DNP. AL CARRIER documented in this encounter Nursing Notes Monica [...] BP completed using cuff size: svetlana Burton CMA(AAKY) AL CARRIER documented in this encounter Plan of Treatment Not on filedocumented as of this encounter Visit Diagnoses Diagnosis Acute sinusitis, recurrence not specifie d, unspecified location - Primary Constipation, unspecified constipation t ype documented in this encounter Care Teams Steam Powerplant Supervisor Relationship Specialty Start Date End Date Susie Naidu, FUEL OIL CLERK PCP - General Nurse Practitioner - Family 03/18/16 documented as of this encounter
--- OUTSIDE RECORDS SUMMARY | 2022-02-16 10:56 | XMS_ITS | Encounter Summary ---
:1975 Author Organization [place] Address [address] [facility] [place] [address] Support Name Relationship Address Phone Leanne Wu Unavailable Unavailable [phone] [place] [address] Team Providers Name Role Phone Clinic - [facility] Primary Care Provider Isis Grace PA-C Unavailable [phone] Isis Grace PA-C Unavailable Reason for Visit Reason Onset Date Comments Refill Request 01/19/2018 phentermine 37.5 MG capsule Encounter Details Date Type Department Care Team Description 01/19/2018 Refill [facility] Bhumi Wild R efdelilah Request Clinic Moshe WELLS (phentermine 37.[address] capsule) [place], [place] [address] [phone] Social History Tobacco Use Types Packs/Day Years Used Date Smoking Tobacco: Never Smokeless Tobacco: Never Alcohol Use Standard Drinks/Week Comments Yes 0 (1 standard drink = 0.6 oz pure alcoho l) rare Sex Assigned at Date Recorded Not on file documented as of this encounter Miscellaneous Notes Telephone Encounter - Bree George - 01/20/2018 4:50 PM CDT Rx approved, fax to the [phone]. CM to inform patient Rx was sent over to the pharmacy. Bree George Dock Clerk Telephone Encounter - Eleonora Campo RN - [...] 11:36 AM CDT SEE 01/19/2018 ENCOUNTER Abebe Cai XRT Telephone Encounter - Debo, Yumiko J, RN - 01/19/2018 7:58 PM CDT Clinic Action Needed:Yes, please follow up with Alyssa regarding: Reason for Call: Alyssa went to [facility] in [place] to pickle maker an Rx for phentermine. See note below. [...] her refill request. Thank you. Routed to: [facility] Yumiko Edmondson RN [place] [facility] Telephone Encounter - Eleonora Campo RN - 01/19/2018 2:22 PM CDT RX monitoring program ([place]NPMP) reviewed: WARDROBE SUPERVISOR reviewed- no concerns MNPMP profile: [email or web address] 2. Weight gain - she is requesting [...] # refills: 0 Last Office Visit with [facility] primary care provider: 12/17/2017 Future Office visit: Controlled substance agreement on file: No. Processing: [facility]ax [facility] WARDROBE SUPERVISOR checked in past 3 months? No, route to DELLA Cai XRT documented in this encounter Plan of Treatment Not on filedocumented as of this encounter Visit Diagnoses Diagnosis Weight gain Abnormal weight gain documented in this encounter Care Teams Kiln Furniture Saw Tender Relationship Specialty Start Date End Date Clinic - [facility] PCP - General 12/10/17 03/12/18 [place] [id number] [place] [address] Isis Grace PA-C PCP - Assigned PCP 08/03/17 06/06/18 [address] [place] [address] Isis Grace PA-C Assigned PCP 08/03/17 06/06/18 [address] [place] [address] documented as of this encounter
--- OUTSIDE RECORDS SUMMARY | 2022-02-16 10:56 | XMS_ITS | Encounter Summary ---
:1975 Author Organization [place] Address [address] [facility] [place] [address] Care Team Providers Name Role Phone Evangelista Susie Lonny SEASONING MIXER Primary Care Provider Reason for Visit Reason Onset Date Comments Refill Request 04/04/2017 Encounter Details Date Type Department Care Team Description 04/04/2017 Refill [facility] Jocy Bowen, Refill Request [place] KARAN INFORMATION TECHNOLOGY INSTRUCTOR [address] [place] [address] [address] [place] [address] [place] [address] [phone] Social History Tobacco Use Types Packs/Day Years [...] today at 1:40 pm. Erica Stone RN TER HOP Telephone Encounter - Jocy Bowen APRN CNP - 04/04/2017 12:40 PM COUNTER HOP Needs visit to see how weight is doing. Can do a phone visit. Jocy Strong INFORMATION TECHNOLOGY INSTRUCTOR TER HOP Telephone Encounter - Teri Paniagua - 04/04/2017 11:54 AM COUNTER HOP Phntermine 15 MG capsule Last Written Prescription Date: Last Fill Quantity: 30, # refills: 0 Last Office Visit with [facility] or [facility] prescribing provider: 03/07/2017 Future Office visit: Wt Readings from Last 3 Encounters: 03/07/17 163 lb (73.9 kg) 12/10/16 156 lb (70.8 kg) 07/31/16 163 lb 9.6 oz (74.2 kg) BP Readings from Last 3 Encounters: 03/07/17 132/75 12/10/16 130/80 07/31/16 120/70 Routing refill request to provider for review/approval because: Drug not on the [facility], [facility] or [facility] refill protocol or controlled substance Carlos Arcelia Blower And Compressor Assembler 04/04/17 11:55 AM TER HOP documented in this encounter Plan of Treatment Not on filedocumented as of this encounter Visit Diagnoses Diagnosis Overweight documented in this encounter Care Teams Lapper Relationship Specialty Start Date End Date Susie Naidu NP PCP - General Nurse Practitioner - Family 03/18/16 documented as of this encounter
--- OUTSIDE RECORDS SUMMARY | 2022-02-16 10:56 | XMS_ITS | Encounter Summary ---
:1975 Author Organization [place] Address [address] [facility] [place] [address] Care Team Providers Name Role Phone Susie Naidu NP Primary Care Provider Reason for Visit Reason Onset Date Comments Formulary Issue 12/23/2016 phentermine 15 MG ca psule Encounter Details Date Type Department Care Team Description 12/23/2016 Telephone [facility] Susie Naidu NP Formulary Issue Clinic [facility] (phentermine 15 MG [address] [facility] capsule) [place], [place] [address] [address] [place] [address] [phone] (Wo rk) Social History Tobacco Use Types [...] increase physical activity and behavior changes. Abebe aCi XRT Telephone Encounter - Abebe Cai - 12/23/2016 7:39 AM CDT PA submitted thru covermymeds for phentermine 15 MG capsule [employer] at [phone], Option 5. Abebe Cai XRT documented in this encounter Plan of Treatment Not on filedocumented as of this encounter Visit Diagnoses Not on filedocumented in this encounter Care Teams Etymology Teacher Relationship Specialty Start Date End Date Susie Naidu NP PCP - General Nurse Practitioner - Family 03/18/16 documented as of this encounter
--- OUTSIDE RECORDS SUMMARY | 2022-02-16 10:56 | XMS_ITS | Encounter Summary ---
:1975 Author Organization [place] Address [address] [facility] [place] [address] Care Team Providers Name Role Phone Susie Naidu JAVA ENGINEER Primary Care Provider Reason for Visit Reason Comments Urgent Care URI Friday stomach pain, fatigue , yesterday sore throat irritated and strep exposure Encounter Details Date Type Department Care Team Description 04/23/2017 Office Visit [facility] Alyssa Ang Throat p ain (Primary Dx); Urgent Care MD Shayy [facility] [address] [address] [place] [phone] Social History Tobacco Use Types Packs/Day Years Used Date Smoking Tobacco: Never Smokeless Tobacco: Never Alcohol Use Standard Drinks/Week Comments Yes 0 (1 standard drink = 0.6 oz pure alcoho l) rare Sex Assigned at Date Recorded Not on file documented as of this encounter Last Filed Vital Signs Vital Sign Reading Time Taken Comments Blood Pressure 118/80 04/23/2017 5:26 PM MACHINE TOOL ELECTRICIAN Pulse 87 04/23/2017 5:26 PM MACHINE TOOL ELECTRICIAN Temperature 36.7 ??C (98 ??F) 04/23/2017 5:26 PM MACHINE TOOL ELECTRICIAN Respiratory Rate 16 04/23/2017 5:26 PM MACHINE TOOL ELECTRICIAN Oxygen Saturation 96% 04/23/2017 5:26 PM MACHINE TOOL ELECTRICIAN Inhaled Oxygen Concentration - - Weight 73.9 kg (163 lb) 04/23/2017 5:26 PM MACHINE TOOL ELECTRICIAN Height - - Body Mass Index 27.98 [...] than 3 days ?? New rash ?? [id number] [employer]. [address] [place] [address], [place] [address]. All rights reserved. This information is not intended as a substitute for professional medical care. Always follow your healthcare professional's instructions. This information has been modified by your health care provider with permission from the publisher. INE TOOL ELECTRICIAN documented in this encounter Progress Notes Alyssa [...] the illness to others in close contact INE TOOL ELECTRICIAN documented in this encounter Nursing Notes Concepción [...] (73.9 kg). Medication Reconciliation: complete Concepción Aj SAUSAGE COOKER INE TOOL ELECTRICIAN documented in this encounter Plan of Treatment Not on filedocumented as of this encounter Procedures Procedure Name Priority Date/Time Associated Diagnosis Comme nts BETA HEMOLYTIC Routine 04/23/2017 6:22 PM Throat pain Results for this STREP GROUP A MACHINE TOOL ELECTRICIAN procedure are in CULTURE the results section. RAPID STREP SCREEN Routine 04/23/2017 5:58 PM Throat pain Res ults for this THROAT SWAB MACHINE TOOL ELECTRICIAN procedure are i n the results section. documented in this encounter Results Beta strep group A culture (04/23/2017 6:22 PM MACHINE TOOL ELECTRICIAN) Component Value Ref Test Analysis Performed At [facility] Range Method Time Signature Specimen Throat [place] Description [facility] Culture Micro No beta 04/24/2017 [facility] hemolytic 4:26 PM MACHINE TOOL ELECTRICIAN CLINICS [facility] Group A isolated Specimen Anatomical Collection Method Collection Time Receive d Time (Source) Location / / Volume Laterality Specimen from 04/23/2017 6:22 PM 04/23/20 17 6:23 throat MACHINE TOOL ELECTRICIAN PM MACHINE TOOL ELECTRICIAN (specimen) Alyssa Ang MD LAB - MICRO GENERAL ORDERABL ES Performing Organization Address City/State/ZIP Code Phon e Number [facility] [id number] [place] [address] Strep, Rapid Screen (04/23/2017 5:58 PM MACHINE TOOL ELECTRICIAN) Component Value Ref Test Analysis Performed At [facility] Range Method Time Signature Specimen Throat [place] Description [facility] Rapid Strep A NEGATIVE: No 04/23/2017 [place] Screen Group A 6:13 PM MACHINE TOOL ELECTRICIAN [facility] streptococcal [place] antigen detected by immunoassay, await culture report. Specimen Anatomical Collection Method Collection Time Receive d Time (Source) Location / / Volume Laterality Specimen from 04/23/2017 5:58 PM 04/23/20 17 5:59 throat MACHINE TOOL ELECTRICIAN PM MACHINE TOOL ELECTRICIAN (specimen) Alyssa Ang MD LAB - MICRO GENERAL ORDERABL ES Performing Organization Address City/State/ZIP Code Phon e Number [facility] [id number] [place] [address] documented in this encounter Visit Diagnoses Diagnosis Throat pain - Primary Gastroenteritis Other and unspecified noninfectious johanny roenteritis and colitis documented in this encounter Care Teams Dye House Hand Relationship Specialty Start Date End Date Susie Naidu NP PCP - General Nurse Practitioner - Family 03/18/16 documented as of this encounter
--- OUTSIDE RECORDS SUMMARY | 2022-02-16 10:56 | XMS_ITS | Encounter Summary ---
:1975 Author Organization [place] Address [address] [facility] [place] [address] Care Team Providers Name Role Phone Susie Naidu SPEECH LANGUAGE PATHOLOGIST ASSISTANT Primary Care Provider Reason for Visit Reason Onset Date Comments Erroneous encounter-disregard 10/27/2016 Encounter Details Date Type Department Care Team Description 10/27/2016 Telephone [facility] Nurse Fallon Smith, Della Advisors RN encounter-disregard [address] [place] [phone] Social History Tobacco Use Types Packs/Day Years Used Date Smoking Tobacco: Never Smokeless Tobacco: Never Alcohol Use Standard Drinks/Week Comments Yes 0 (1 standard drink = 0.6 oz pure alcoho l) rare Sex Assigned at Date Recorded Not on file documented as of this encounter Miscellaneous Notes Telephone Encounter - Fallon Smith RN - 10/27/2016 9:14 AM CDT Error Fallon Smith RN [place] [facility] documented in this encounter Plan of Treatment Not on filedocumented as of this encounter Visit Diagnoses Diagnosis Overweight - Primary documented in this encounter Care Teams Railway Yard Assistant Relationship Specialty Start Date End Date Susie Naidu SPEECH LANGUAGE PATHOLOGIST ASSISTANT PCP - General Nurse Practitioner - Family 03/18/16 documented as of this encounter
--- OUTSIDE RECORDS SUMMARY | 2022-02-16 10:56 | XMS_ITS | Encounter Summary ---
:1975 Author Organization [place] Address [address] [facility] [place] [address] Care Team Providers Name Role Phone [facility] Primary Care Provider Reason for Visit Reason Onset Date Comments No Show 01/03/2016 Encounter Details Date Type Department Care Team Description 01/03/2016 Office Visit [facility] Elijah, NO SHOW (Primary Dx) [facility] [place] [address] [place] [phone] Social History Tobacco Use Types Packs/Day [...] Primary documented in this encounter Care Teams Immigration Investigator Relationship Specialty Start Date End Date Clinic - [facility] PCP - General 09/21/15 03/17/16 [address] [place] [address] documented as of this encounter
--- OUTSIDE RECORDS SUMMARY | 2022-02-16 10:56 | XMS_ITS | Encounter Summary ---
:1975 Author Organization [place] Address [address] [facility] [place] [address] Care Team Providers Name Role Phone Susie Naidu ENVIRONMENTAL REMEDIATION SPECIALIST Primary Care Provider Reason for Visit Reason Onset Date Comments Refill Request 08/23/2016 Phentermine 15mg tab Encounter Details Date Type Department Care Team Description 08/23/2016 Refill [facility] Susie Naidu, ENVIRONMENTAL REMEDIATION SPECIALIST Refill Request Clinic [facility] (Phentermine 15mg tab) [address] [place], [place] [address] [address] [place] [address] [phone] (Wo rk) Social History Tobacco Use Types [...] Please advise RX monitoring program ([place]NPMP) reviewed: MARKETING UNDERWRITER reviewed- no concerns Last fill: 07/31/2016, #30 MNPMP profile: [email or web address] Brigid Gonzales RN, BSN, PHN Telephone Encounter - Halina Rivas - 08/23/2016 9:56 AM CDT Phentermine 15mg tab Last Written Prescription Date: 07/31/16 Last Fill Quantity: 30, # refills: 0 Last Office Visit with [facility], P or [facility] prescribing provider: 07/31/16 documented in this encounter Plan of Treatment Not on filedocumented as of this encounter Visit Diagnoses Diagnosis Overweight documented in this encounter Care Teams Machine Printer Hose Relationship Specialty Start Date End Date Susie Naidu NP PCP - General Nurse Practitioner - Family 03/18/16 documented as of this encounter
--- OUTSIDE RECORDS SUMMARY | 2022-02-16 10:56 | XMS_ITS | Encounter Summary ---
:1975 Author Organization [place] Address [address] [facility] [place] [address] Care Team Providers Name Role Phone Susie Naidu PUBLIC IMPROVEMENT INSPECTOR Primary Care Provider Reason for Visit Reason Comments Fatigue Encounter Details Date Type Department Care Team Description 12/10/2016 Office Visit [facility] Susie Naidu, Perezu e, unspecified type (Primary Dx); [facility] PUBLIC IMPROVEMENT INSPECTOR Overweight [address] [facility] [address] [phone] [place], [place] [address] Social History Tobacco Use [...] in this encounter Progress Notes Susie Naidu, PUBLIC IMPROVEMENT INSPECTOR - 12/10/2016 2:30 PM CDT SUBJECTIVE: Alyssa Aguillon is a 41 year old female who presents to clinic today for the following health issues: Here with complaints of nausea, body aches, headaches and generalized fatigue for the past three weeks. Single mother with four children. Has some challenges with her 20 year old son who is in trouble with the law. 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 Patient states stressors are just more recent. [...] up in one month. Susie Naidu NP [facility] documented in this encounter Nursing Notes Tuan Meraz, WAREHOUSE TEAM MEMBER - 12/10/2016 2:30 PM CDT Chief Complaint [...] athologist Signature TSH 1.45 0.40 - 4.00 [facility] mU/L [facility] Specimen Anatomical Collection Method Collection Time Receive d Time (Source) Location / / Volume Laterality Blood specimen 12/10/2016 3:02 PM 017 3:07 (specimen) CDT PM CDT Susie Naidu NP LAB - BLOOD ORDERABLES Performing Organization Address City/State/ZIP Code Phon e Number [facility] [address] [place] [address] Iron and iron binding capacity (12/10/2016 3:02 PM CDT) athologist Signature Iron 71 35 - 180 [facility] ug[facility]dL [facility] Iron Binding 400 240 - 430 [facility] Cap ug/dL [facility] Iron Saturation 18 15 - 46 % [facility] Index [facility] Specimen Anatomical Collection Method Collection Time Receive d Time (Source) Location / / Volume Laterality Blood specimen 12/10/2016 3:02 PM 017 3:07 (specimen) CDT PM CDT Susie Naidu PUBLIC IMPROVEMENT INSPECTOR LAB - BLOOD ORDERABLES Performing Organization Address City/State/ZIP Code Phon e Number [facility] [address] [address] [phone] [facility] [address] [place] [address], [place] [phone] (ABNORMAL) CBC with platelets (12/10/2016 3:02 PM CDT) athologist Signature WBC 9.7 4.0 - 11.0 [place] 10e9/L [facility] RBC Count 3.88 3.8 - 5.2 [facility] 10e12/L [facility] Hemoglobin 10.3 (L) 11.7 - 15.7 [place] g/dL [facility] Comment: Reviewed: OK with previous Hematocrit 31.8 (L) 35.0 - 47.0 % [facility] MCV 82 78 - 100 fl [facility] MCH 26.5 26.5 - 33.0 pg [facility] MCHC 32.4 31.5 - 36.5 g/dL [facility] [place] RDW 14.0 10.0 - 15.0 % [facility] Platelet Count 313 150 - 450 10e9/L [facility] Specimen Anatomical Collection Method Collection Time Receive d Time (Source) Location / / Volume Laterality Blood specimen 12/10/2016 3:02 PM 017 3:07 (specimen) CDT PM CDT Susie Naidu PUBLIC IMPROVEMENT INSPECTOR LAB - BLOOD ORDERABLES Performing Organization Address City/State/ZIP Code Phon e Number [facility] [address] [place] [address] documented in this encounter Visit Diagnoses Diagnosis Fatigue, unspecified type - Primary Overweight documented in this encounter Care Teams Urgent Care Relationship Specialty Start Date End Date Susie Naidu NP PCP - General Nurse Practitioner - Family 03/18/16 documented as of this encounter
--- OUTSIDE RECORDS SUMMARY | 2022-02-16 10:56 | XMS_ITS | Encounter Summary ---
:1975 Author Organization [place] Address [address] [facility] [place] [address] Care Team Providers Name Role Phone Susie Naidu CHART CHANGER Primary Care Provider Reason for Visit Reason Comments URI Encounter Details Date Type Department Care Team Description 03/18/2016 Office Visit [facility] Susie Naidu, Acute sinusitis with [facility] CHART CHANGER symptoms > [address] [facility] (Primary Dx) [facility] [address] [phone] [place], [place] [address] Social History Tobacco Use Types Packs/Day Years Used Date Smoking Tobacco: Never Smokeless Tobacco: Never Alcohol Use Standard Drinks/Week Comments Yes 0 (1 standard drink = 0.6 oz pure alcoho l) rare Sex Assigned at Date Recorded Not on file documented as of this encounter Last Filed Vital Signs Vital Sign Reading Time Taken Comments Blood Pressure 118/66 03/18/2016 1:42 PM ELECTRIC MOTOR FITTER Pulse 78 03/18/2016 1:42 PM ELECTRIC MOTOR FITTER Temperature 36.4 ??C (97.6 ??F) 03/18/2016 1:42 PM ELECTRIC MOTOR FITTER Respiratory Rate - - Oxygen Saturation 99% 03/18/2016 1:42 PM ELECTRIC MOTOR FITTER Inhaled Oxygen Concentration - - Weight 73.5 kg (162 lb) 03/18/2016 1:42 PM ELECTRIC MOTOR FITTER Height 167.6 cm (5' 6) 03/18/2016 1:42 PM ELECTRIC MOTOR FITTER Body Mass Index 26.15 03/18/2016 1:42 PM ELECTRIC MOTOR FITTER documented in this encounter Progress Notes Susie Naidu NP - 03/18/2016 1:43 PM CST SUBJECTIVE: Alyssa Aguillon is a 40 year old female who presents to clinic today for the following health issues: Acute Illness Acute illness concerns: x 2 weeks , some dizziness Onset: see below ?? Fever: no ?? Chills/Sweats: YES ?? Headache (location?): YES ?? Sinus Pressure:YES ?? Conjunctivitis: no ?? Ear Pain: no ?? Rhinorrhea: no ?? Congestion: YES ?? Sore Throat: YES- last week but better ?? Cough: no ?? Wheeze: no ?? Decreased Appetite: no ?? Nausea: no ?? Vomiting: no ?? Diarrhea: no ?? Dysuria/Freq.: no ?? Fatigue/Achiness: YES ?? Sick/Strep Exposure: around kids Therapies Tried and outcome: excederin and ibuprofen with some relief Alyssa is here with bilateral sinus pressure and congestion for the past two weeks. Having congestion and dental pain along with an intermittent headache over the past two weeks. Slight sore throat. No history of sinus surgery. Has had issues with sinus infections. Problem list and histories reviewed & adjusted, as indicated. Additional history: none Problem list, Medication list, Allergies, and Medical/Social/Surgical histories reviewed in [facility] andupdated as appropriate. ROS: C: NEGATIVE for fever, chills, change in weight E/M: NEGATIVE for ear, mouth and throat problems R: NEGATIVE for significant cough or SOB CV: NEGATIVE for chest pain, palpitations or peripheral edema OBJECTIVE: BP 118/66 mmHg Pulse 78 Temp(Src) 97.6 ??F (36.4 ??C) (Oral) Ht 5' 6 (1.676 m) Wt 162 lb (73.483 kg) BMI 26.16 kg/m2 SpO2 99% LMP 02/26/2016 ? No Body mass index is 26.16 kg/(m^2). GENERAL: healthy, alert and no distress HENT: ear canals and TM's normal, nose and mouth without ulcers or lesions. Maxillary sinus tenderness. Swollen turbinates bilaterally. NECK: no adenopathy, no asymmetry, masses, or scars and thyroid normal to palpation RESP: lungs clear to auscultation - no rales, rhonchi or wheezes CV: regular rate and rhythm, normal S1 S2, no S3 or S4, no murmur, click or rub, no peripheral edemaand peripheral pulses strong Diagnostic Test Results: none ASSESSMENT/PLAN: 1. Acute sinusitis with symptoms > 10 days Encouraged continued use of flonase and saline spray to help with congestion. Augmentin for ten days. Encouraged use of probiotics with any antibiotic. - amoxicillin-clavulanate (AUGMENTIN) 875-125 MG per tablet; Take 1 tablet by mouth 2 times daily Dispense: 20 tablet; Refill: 0 Follow up if symptoms do not improve or worsen. Susie Naidu NP [facility] TRIC MOTOR FITTER documented in this encounter Nursing Notes Tuan Meraz CMA - 03/18/2016 1:43 PM CST Advised pap is due as of 03/18/2016.Tuan Meraz CMA Chief Complaint Patient presents with ??? URI Initial BP 118/66 mmHg Pulse 78 Temp(Src) 97.6 ??F (36.4 ??C) (Oral) Ht 5' 6 (1.676 m) Wt 162 lb (73.483 kg) BMI 26.16 kg/m2 SpO2 99% LMP 02/26/2016 ? No Estimated body mass index is 26.16 kg/(m^2) as calculated from the following: Height as of this encounter: 5' 6 (1.676 m). Weight as of this encounter: 162 lb (73.483 kg). BP completed using cuff size: regular Tuan Meraz CMA TRIC MOTOR FITTER documented in this encounter Plan of Treatment Not on filedocumented as of this encounter Visit Diagnoses Diagnosis Acute sinusitis with symptoms > 10 days - Primary Acute sinusitis, unspecified documented in this encounter Care Teams Solar Sales Representative And Assessor Relationship Specialty Start Date End Date Susie Naidu NP PCP - General Nurse Practitioner - Family 03/18/16 documented as of this encounter
--- OUTSIDE RECORDS SUMMARY | 2022-02-16 10:56 | XMS_ITS | Encounter Summary ---
:1975 Author Organization [place] Address [address] [facility] [place] [address] Care Team Providers Name Role Phone Clinic - [facility] Primary Care Provider Reason for Visit Reason Onset Date Comments Panel Management 11/24/2015 Encounter Details Date Type Department Care Team Description 11/24/2015 [facility] Raghu Freed, Panel Management [address] [id number] [phone] Social History Tobacco Use Types Packs/Day Years [...] to schedule. Questions for provider review: None Tanna Lauwagie, RMA Chart routed to Care Team . documented in this encounter Plan of Treatment Not on filedocumented as of this encounter Visit Diagnoses Not on filedocumented in this encounter Care Teams Classroom Instructor Relationship Specialty Start Date End Date Clinic - [facility] PCP - General 09/21/15 03/17/16 [address] [place] [address] documented as of this encounter
--- OUTSIDE RECORDS SUMMARY | 2022-02-16 10:56 | XMS_ITS | Encounter Summary ---
:1975 Author Organization [place] Address [address] [facility] [place] [address] Care Team Providers Name Role Phone Susie Naidu BATTERY CHARGER TESTER Primary Care Provider Reason for Visit Reason Comments Sinus Problem Encounter Details Date Type Department Care Team Description 06/12/2016 Office Visit [facility] Susie Naidu, Acute sinusitis with Clinic [place] BATTERY CHARGER TESTER symptoms > 10 days [address] [facility] (Primary Dx) [facility] [address] [phone] [place], [place] [address] Social History Tobacco Use [...] Comments Blood Pressure 110/76 06/12/2016 3:29 PM GOLF BALL MOLDER Pulse 86 06/12/2016 3:29 PM GOLF BALL MOLDER Temperature 36.6 ??C (97.8 ??F) 06/12/2016 3:29 PM GOLF BALL MOLDER Respiratory Rate 14 06/12/2016 3:29 PM GOLF BALL MOLDER Oxygen Saturation 97% 06/12/2016 3:29 PM GOLF BALL MOLDER Inhaled Oxygen Concentration - - Weight 76.9 kg (169 lb 8 oz) 06/12/2016 3:29 PM GOLF BALL MOLDER Height 167.6 cm (5' 6) 06/12/2016 3:29 PM GOLF BALL MOLDER Body Mass Index 27.36 06/12/2016 3:29 PM GOLF BALL MOLDER documented in this encounter Progress Notes Susie Naidu, BATTERY CHARGER TESTER - 06/12/2016 3:29 PM CST SUBJECTIVE: Alyssa [...] list, Allergies, and Medical/Social/Surgical histories reviewed in [facility] andupdated as appropriate. ROS: Constitutional, HEENT, [...] symptoms. - fluticasone (FLONASE) 50 MCG/ACT spray; [place] 1-2 sprays into both nostrils daily Dispense: 16 g; Refill: 3 - predniSONE (DELTASONE) 20 MG tablet; Take 2 tablets (40 mg) by mouth daily for 5 days Dispense: 10tablet; Refill: 0 If symptoms persist, will need referral to ENT. Susie Naidu NP [facility] BALL MOLDER documented in this encounter Nursing Notes Eliza [...] aware she is due for a pap BALL MOLDER documented in this encounter Plan of Treatment Not on filedocumented as of this encounter Visit Diagnoses Diagnosis Acute sinusitis with symptoms > 10 days - Primary Acute sinusitis, unspecified documented in this encounter Care Teams De Icer Finisher Relationship Specialty Start Date End Date Susie Naidu BATTERY CHARGER TESTER PCP - General Nurse Practitioner - Family 03/18/16 documented as of this encounter
--- OUTSIDE RECORDS SUMMARY | 2022-02-16 10:56 | XMS_ITS | Encounter Summary ---
:1975 Author Organization [place] Address [address] [facility] [place] [address] Care Team Providers Name Role Phone Naidu Susie Lonny VAUGHN Primary Care Provider Reason for Visit Reason Comments Medication Request Encounter Details Date Type Department Care Team Description [facility] Mara Dean APRN CNP Dx) [address] [address] [facility], [address] [place], [place] [address] [place] [address] (Wo rk) [address] [phone] Social History Tobacco Use Types Packs/Day Years [...] documented in this encounter Patient Instructions Patient InstructionsJocy Bowen APRN RADIO TESTER - 03/07/2017 9:20 AM CDT My fitness pal for calorie tracking. Exercise 3-4 days per week. Ensure plenty of water. documented in this encounter Progress Notes Jocy Bowen APRN CNP - 03/07/2017 9:20 AM CDT [...] activity to 3-4 days/week. Track calories with myDwellAwarepal. -phentermine 15 MG capsule; Take 1 capsule (15 mg) by mouth every morning Dispense: 30 capsule; Refill: 0 F/u 1 mo Jocy Bowen APRN CNP [facility] Physical Exam TRICAL SOLDERER documented in this encounter Nursing Notes Nahomy [...] Primary documented in this encounter Care Teams Connection Worker Relationship Specialty Start Date End Date Susie Naidu VIOLIN RESTORER PCP - General Nurse Practitioner - Family 03/18/16 documented as of this encounter
--- OUTSIDE RECORDS SUMMARY | 2022-02-16 10:56 | XMS_ITS | Encounter Summary ---
:1975 Author Organization [place] Address [address] [facility] [place] [address] Care Team Providers Name Role Phone Susie Naidu SOLAR ENERGY SYSTEMS ENGINEER Primary Care Provider Reason for Visit Reason Comments Physical Encounter Details Date Type Department Care Team Description 07/31/[address] [facility] Susie Naidu, Screen ing for malignant neoplasm of cervix (Primary Dx); [facility] [place] SOLAR ENERGY SYSTEMS ENGINEER Encounter for routine adult health exami [facility] without abnormal findings; [address] [facility] [address] [phone] [place], [place] [address] Social History Tobacco Use [...] this encounter Patient Instructions Patient InstructionsEliza Moran - 07/31/2016 9:26 AM CDT Preventive Health [...] encounter Progress Notes Susie Naidu NP - 07/31/2016 9:26 AM CDT SUBJECTIVE: CC: [...] 2 miles daily. Today's PHQ-2 Score: PHQ-2 (??1999 Pf[employer]) 03/18/2016 09/14/2015 Q1: Little interest or [...] LDL, TRIG, CHOLHDLRATIO, NHDL in the last 35538 hours. Reviewed orders with patient. Reviewed health [...] Preventive Guidelines Dietary Guidelines for Americans, 2009 USDA's MyPlate ASA Prophylaxis Lung CA Screening Susie Naidu NP [facility] documented in this encounter Nursing Notes Eliza [...] Component Value Ref Test Analysis Performed At [facility] Method Time Signature HPV 16 DNA Negative NEG R [facility] HPV 18 DNA Negative NEG R [facility] Other HR HPV Negative NEG R [facility] Final This patient's sample is negative for HPV DNA. [facility] Diagnosis (Note) OF [place] METHODOLOGY: ??The Adis marisol 4800 system uses automated extraction, MEDICAL simultaneous amplification of HPV (L1 region) and beta-globi nCOMMUNITY HEALTH SYSTEMS followed by ??real time detection of fluorescent [...] and its performance characteristics determined by the [facility], [place] lecular Diagnostics Laboratory. It has not been cleared or approved by the FDA. The laboratory is regulated under CLIA as qualified to perform high-complexity testing. This test is used for clinical purp oses. It should not be regarded as investigational or for research. Specimen Cervical Cells [facility] Description C17 [address] [facility] Specimen Anatomical Collection Method Collection Time Receive d Time (Source) Location / / Volume Laterality Cervical Cells 07/31/2016 9:54 AM 017 CDT 10:00 AM CDT Susie Naidu NP LAB - BLOOD ORDERABLES Performing Organization Address City/State/ZIP Code Phon e Number [facility] [address] [place] [address] [facility] Pap imaged thin layer screen with HPV - recommended age 30 - 65 years (select HPV order below) (07/31/2016 9:44 AM CDT) Component Value Ref Test Analysis Performed At Patholo gist Range Method Time Signature PAP NIL [facility] Copath Report [facility] Patient Name: COURTNEY LIZAMA MR#: [id number] Specimen #: [id number] Collected: 07/31/2016 Received: 08/01/2016 Reported: 08/05/2016 12:13 [...] MALIK Castillo (ASCP) Processed and screened at [facility] CLINICAL HISTORY: LMP: 07/26/16 Previous abnormal pap: [facility] Date of Last Pap: 09/24/10, Papanicolaou Test Limitations: ??Cervical cytology is a scre ening test with limited sensitivity; regular screening is critical for cancer prevention; Pap tests are primarily effective for the diagnosis/prevention of squamous cell carcinoma, not adenoca rcinomas or other cancers. TESTING LAB LOCATION: [address] ??[address] COLLECTION SITE: Client: ??[facility] Location: [facility] (R) Specimen (Source) Anatomical Collection Method Collection Time Re ceived Time Location / / Volume Laterality Cytologic 07/31/2016 9:44 08/01/2016 material AM CDT 10:27 AM CDT (specimen) Susie Naidu SOLAR ENERGY SYSTEMS ENGINEER LAB - OPTIME CLINICAL SPECIM EN Performing Organization Address City/State/ZIP Code Phon e Number [place] documented in this encounter Visit Diagnoses Diagnosis Screening for malignant neoplasm of cerv ix - Primary Screening for malignant neoplasm of the cervix Encounter for routine adult health exami [facility] without abnormal findings Overweight documented in this encounter Care Teams Campus Ambassador Relationship Specialty Start Date End Date Susie Naidu SOLAR ENERGY SYSTEMS ENGINEER PCP - General Nurse Practitioner - Family 03/18/16 documented as of this encounter
--- OUTSIDE RECORDS SUMMARY | 2022-02-16 10:56 | XMS_ITS | Encounter Summary ---
:1975 Author Organization [place] Address [address] [place] [address] Care Team Providers Name Role Phone Susie Naidu NP Primary Care Provider [facility] Primary Care Provider No Ref-Primary, Physician Primary Care Provider [phone] Isis Grace PA-C Unavailable [phone] Isis Grace PA-C Unavailable Encounter Details Date Type Department Care Team Description 07/31/2016 Result Follow Up [facility] Susie Rangel NP Dx: H/O [facility] [address] [place] [address] [address] [phone] [place], [place] [address] (Wo rk) Social History [...] and recommendations. 07/28/17 Cotest reminder letter sent (rl) 02/03/18 Reminder call - left msg ([facility]) 03/24/18 Patient is lost to pap tracking follow-up. FYI routed to provider. ([facility]) LE MOUNTER documented in this encounter Plan of Treatment Not on filedocumented as of this encounter Visit Diagnoses Diagnosis H/O LEEP documented in this encounter Care Teams Roller Coaster Engineer Relationship Specialty Start Date End Date Susie Naidu, POLICY CHANGE CLERKS SUPERVISOR PCP - General Nurse Practitioner - 03/18/16 12/09/17 [facility] [place], PCP - General 12/10/17 03/12/18 [facility] [id number] [place] [address] No Ref-Primary, PCP - General 03/13/18 09/15/18 Physician Sanjay, PCP - Assigned PCP 08/03/17 9 Isis Edwards PA-C [address] [place] [address] Sanjay, Assigned PCP 08/03/17 06/06/18 Isis Edwards PA-C [address] [place] [address] documented as of this encounter
--- OUTSIDE RECORDS SUMMARY | 2022-02-16 10:56 | XMS_ITS | Encounter Summary ---
:1975 Author Organization [place] Address [address] [facility] [place] [address] Care Team Providers Name Role Phone Susie Naidu ION EXCHANGE OPERATOR Primary Care Provider Reason for Visit Reason Onset Date Comments Refill Request 10/27/2016 Encounter Details Date Type Department Care Team Description 10/27/2016 Telephone [facility] Nurse Fallon Smith RN Refill Request Advisors [address] [place] [address] Social History Tobacco Use Types Packs/Day [...] Overweight documented in this encounter Care Teams Admissions Supervisor Relationship Specialty Start Date End Date Susie Naidu, ION EXCHANGE OPERATOR PCP - General Nurse Practitioner - Family 03/18/16 documented as of this encounter
--- OUTSIDE RECORDS SUMMARY | 2022-02-16 10:56 | XMS_ITS | Encounter Summary ---
:1975 Author Organization [place] Address [address] [facility] [place] [address] Care Team Providers Name Role Phone Susie Naidu NP Primary Care Provider Reason for Visit Reason Comments Recheck Medication Encounter Details Date Type Department Care Team Description 07/29/2017 Office Visit [facility] [place], Overweight [place] Isis Edwards PA-C [id number] [place] [address] [place] [id number] [place] [address] [phone] (Wo rk) Social History Tobacco Use Types [...] take : Multivitamin Probiotic: bifido or acidophilus [place] 3: 1 g/day fish oil supplement (that would contain between 200 to 800 mg of EPA+DHA, dependingon the formulation) or one to two servings per week of oily fish [22]. Vitamin D3 5,000 units daily throughout the winter Magnesium glycinate 200 - 300 mg PrivateFly: Products and podcasts documented in this encounter [...] take : Multivitamin Probiotic: bifido or acidophilus [place] 3: 1 g/day fish oil supplement (that would contain between 200 to 800 mg of EPA+DHA, dependingon the formulation) or one to two servings per week of oily fish [22]. Vitamin D3 5,000 units daily throughout the winter Magnesium glycinate 200 - 300 mg [employer]Fly: Products and podcasts Isis Grace PA-C [employer] [employer] documented in this encounter Nursing Notes Ana [...] Overweight documented in this encounter Care Teams Pipelines Supervisor Relationship Specialty Start Date End Date Susie Naidu NP PCP - General Nurse Practitioner - Family 03/18/16 documented as of this encounter
--- OUTSIDE RECORDS SUMMARY | 2022-02-16 10:56 | XMS_ITS | Encounter Summary ---
:1975 Author Organization [place] Address [address] [facility] [place] [address] Care Team Providers Name Role Phone Susie Naidu BRIMMER BLOCKER Primary Care Provider Reason for Visit Reason Onset Date Comments Refill Request 01/14/2017 phentermine 15 MG ca psule Encounter Details Date Type Department Care Team Description 01/14/2017 Refill [facility] Susie Naidu BRIMMER BLOCKER Refill Request Clinic [facility] (phentermine 15 MG [address] [facility] capsule) [place], [place] [address] [address] [place] [address] [phone] (Wo rk) Social History Tobacco Use Types Packs/Day Years Used Date Smoking Tobacco: Never Smokeless Tobacco: Never Alcohol Use Standard Drinks/Week Comments Yes 0 (1 standard drink = 0.6 oz pure alcoho l) rare Sex Assigned at Date Recorded Not on file documented as of this encounter Miscellaneous Notes Telephone Encounter - Page, Whitney Mukherjee RN - 01/14/2017 12:04 PM CDT RX monitoring program ([place]) reviewed: INSULATION INSTALLER reviewed- no concerns Pt was advised to f/u in one month per OV note of 12/10/16 but she would like fill with out doing this. Message handled by Nurse Triage with [facility] - provider name: Susie Naidu NP Per PCP with current BMI and wt pt likely does not qualify for this. When pt notified of this she states it's not even so much the wt issue it just helps me to focus better Pt advised medication is not for this issue, should only be used for wt loss. If having other mentalhealth or attention issue needs to be seen and should have further work up Pt expressed understanding and acceptance of the plan. Pt had no further questions at this time. Advised can call back to clinic at any time with concerns. [facility] profile: [email or web address] Whitney Morales RN Telephone Encounter - Bree George - 01/14/2017 10:13 AM CDT Controlled Substance Refill Request for phentermine 15 MG capsule Problem List Complete: No PROVIDER TO CONSIDER COMPLETION OF PROBLEM LIST AND OVERVIEW/CONTROLLED SUBSTANCE AGREEMENT Last Written Prescription Date: 12/10/2016 Last Fill Quantity: 30, # refills: 0 Last Office Visit with [facility] [place] care provider: 12/10/2016 Future Office visit: Controlled substance agreement on file: No. Processing: Fax Rx to [facility] pharmacy INSULATION INSTALLER checked in past 6 months? No, route to DELLA George Accounts Administrator documented in this encounter Plan of Treatment Not on filedocumented as of this encounter Visit Diagnoses Diagnosis Overweight documented in this encounter Care Teams Skin Drier Relationship Specialty Start Date End Date Susie Naidu BRIMMER BLOCKER PCP - General Nurse Practitioner - Family 03/18/16 documented as of this encounter
--- OUTSIDE RECORDS SUMMARY | 2022-02-16 10:56 | XMS_ITS | Encounter Summary ---
:1975 Author Organization [place] Address [address] [facility] [place] [address] Care Team Providers Name Role Phone Susie Naidu Lonny DRY CLEANING ATTENDANT Primary Care Provider Reason for Visit Reason Onset Date Comments No Show 03/04/2017 Encounter Details Date Type Department Care Team Description 03/04/2017 Office Visit [facility] Jocy Bowen NO SHOW (Primary Dx) Clinic [place] KARAN Dean [place] [address] [place] [address] [facility], [address] [place] [address] [place], [place] [phone] (Wo rk) [address] [phone] Social History Tobacco Use Types Packs/Day Years [...] Primary documented in this encounter Care Teams Shade Cloth Finisher Relationship Specialty Start Date End Date Susie Naidu, DRY CLEANING ATTENDANT PCP - General Nurse Practitioner - Family 03/18/16 documented as of this encounter
--- OUTSIDE RECORDS SUMMARY | 2022-02-16 10:56 | XMS_ITS | Encounter Summary ---
:1975 Author Organization [place] Address [address] [facility] [address] Care Team Providers Name Role Phone Naidu Susiecory Mukherjee NP Primary Care Provider Reason for Visit Reason Onset Date Comments Telephone 04/07/2017 med check Encounter Details Date Type Department Care Team Description 04/07/2017 Virtual Visit [facility] Jocy Bowen Overweight [place] KARAN ROUTE CLERK [address] [place] [address] [address] [place] [address] [place] [address] [phone] Social History Tobacco Use Types Packs/Day Years Used Date Smoking Tobacco: Never Smokeless Tobacco: Never Alcohol Use Standard Drinks/Week Comments Yes 0 (1 standard drink = 0.6 oz pure alcoho l) rare Sex Assigned at Date Recorded Not on file documented as of this encounter Progress Notes Jocy Bowen APRN CNP - 04/07/2017 1:40 PM CST [...] between patient and provider was 5 minutes AD RECEIVER documented in this encounter Plan of Treatment Not on filedocumented as of this encounter Visit Diagnoses Diagnosis Overweight documented in this encounter Care Teams Upstream Biomanufacturing Technician Relationship Specialty Start Date End Date Susie Naidu COCOA BEAN CLEANER PCP - General Nurse Practitioner - Family 03/18/16 documented as of this encounter
--- OUTSIDE RECORDS SUMMARY | 2022-02-16 10:56 | XMS_ITS | Encounter Summary ---
:1975 Author Organization [place] Address [address] [facility] [place] [address] Care Team Providers Name Role Phone Susie Naidu ARTIFICIAL TEETH INSPECTOR Primary Care Provider Reason for Visit Reason Onset Date Comments Panel Management 07/25/2016 Encounter Details Date Type Department Care Team Description 07/25/2016 Telephone [facility] Susie Naidu, ARTIFICIAL TEETH INSPECTOR Panel Management [facility] [address] [place] [address] [address] [phone] [facility] [place] [phone] (Wo rk) Social History Tobacco [...] made an appointment for 07/31/16. Bree George Hooker Up Telephone Encounter - Eliza Moran - 07/25/2016 [...] on filedocumented in this encounter Care Teams Dockworker Relationship Specialty Start Date End Date Susie Naidu, RODERICK PCP - General Nurse Practitioner - Family 03/18/16 documented as of this encounter
--- OUTSIDE RECORDS SUMMARY | 2022-02-16 10:56 | XMS_ITS | Encounter Summary ---
:1975 Author Organization [place] Address [address] [facility] [place] [address] Care Team Providers Name Role Phone Clinic - [facility] Primary Care Provider Isis Grace PA-C Unavailable Isis Grace PA-C Unavailable Reason for Referral Mental Health Outpatient - Closed Specialty Diagnoses / Procedures Referred By Contact Refer red To Contact [place] [address] [place] [address] Referral ID Status Reason Start Date Expiration Date Visits Requ ested Visits Authorized [id number] Closed 12/17/2017 12/17/2018 1 1 Reason for Visit Reason Comments Bloated Encounter Details Date Type Department Care Team Description 12/17/2017 Office Visit [facility] Bhumi Wild abdomen (Primary Dx); Clinic Moshe Sahni MD Weight gain; [address] [facility] [address] [address] Panic attack; [place], [place] [address] Acute pain of right knee [address] [phone] Social History Tobacco Use Types Packs/Day Years [...] - Adult; Outpatient Treatment; Individual/Couples/Family/Group Therapy/Health Psychology; [facility] [facility] ; We will contact you to schedule the ap pointment or please call with any questions 4. Acute pain of right knee - exam normal today, advised to monitor Bhumi Wild MD [facility] documented in this encounter Nursing Notes Eliza Moran - 12/17/2017 1:20 PM CDT Pt is aware she is due for pap documented in this encounter Plan of Treatment Scheduled Referrals Name Type Priority Associated Diagnoses Order S [facility] REFERRAL - Referral Routine Panic attack Ord ered: 12/17/2017 Adult; Outpatient Treatment; Individual/Couples/Family/ Group Therapy/Health Psychology; [facility] [facility] ; We will contact you to schedule the appointment or please call with any questions documented as of this encounter Visit Diagnoses Diagnosis Bloated abdomen - Primary Flatulence, eructation, and gas pain Weight gain Abnormal weight gain Panic attack Panic disorder without agoraphobia Acute pain of right knee documented in this encounter Care Teams Bone Char Puller Relationship Specialty Start Date End Date Clinic - [facility] PCP - General 12/10/17 03/12/18 [place] [address] [place] [address] Isis Grace PA-C PCP - Assigned PCP 08/03/17 06/06/18 [address] [place] [address] Isis Grace PA-C Assigned PCP 08/03/17 06/06/18 [address] [place] [address] documented as of this encounter
--- OUTSIDE RECORDS SUMMARY | 2022-02-16 10:56 | XMS_ITS | Encounter Summary ---
:1975 Author Organization [place] Address [address] [facility] [place] [address] Care Team Providers Name Role Phone Susie Naidu BRIMMING MACHINE OPERATOR Primary Care Provider Reason for Visit Reason Comments No Show Encounter Details Date Type Department Care Team Description 03/05/[address] [facility] Jocy Bowen NO SHOW (Primary Dx) Clinic [place] KARAN Dean CNP [place] [address] [facility], [address] [place], [place] [address] [place] [address] (Wo rk) [address] [phone] Social History Tobacco Use Types Packs/Day Years [...] Primary documented in this encounter Care Teams Spring Former Relationship Specialty Start Date End Date Susie Naidu BRIMMING MACHINE OPERATOR PCP - General Nurse Practitioner - Family 03/18/16 documented as of this encounter
--- OUTSIDE RECORDS SUMMARY | 2022-02-16 10:56 | XMS_ITS | Encounter Summary ---
:1975 Author Organization [place] Address [address] [facility] [place] [address] Care Team Providers Name Role Phone Evangelista Susie M CANDY CATCHER Primary Care Provider Reason for Visit Reason Onset Date Comments Panel Management 04/05/2016 Encounter Details Date Type Department Care Team Description 04/05/2016 Telephone [facility] Raghu Freed, Panel Management [place]EM[place] [address] [place] [address] [address] [id number] [phone] Social History Tobacco Use Types Packs/Day Years [...] to call back to clinic. Letter sent. CH RETAIL EXECUTIVE Telephone Encounter - Tanna Jalloh MA - [...] : Chart routed to Care Team . CH RETAIL EXECUTIVE documented in this encounter Plan of Treatment Not on filedocumented as of this encounter Visit Diagnoses Not on filedocumented in this encounter Care Teams Director Inpatient Headache Program Relationship Specialty Start Date End Date Susie Naidu NP PCP - General Nurse Practitioner - Family 03/18/16 documented as of this encounter
--- OUTSIDE RECORDS SUMMARY | 2022-02-16 10:56 | XMS_ITS | Encounter Summary ---
:1975 Author Organization [place] Address [address] [place] [address] Care Team Providers Name Role Phone Susie Naidu OBSTETRICS NURSE Primary Care Provider Reason for Visit Reason Onset Date Comments Refill Request 09/24/2016 phentermine 15 MG ca psule Encounter Details Date Type Department Care Team Description 09/24/2016 Refill [facility] Susie Naidu, OBSTETRICS NURSE Refill Request Clinic [facility] (phentermine 15 MG [address] [facility] capsule) [place], [place] [address] [address] [place] [address] [phone] (Wo rk) Social History Tobacco Use Types Packs/Day Years Used Date Smoking Tobacco: Never Smokeless Tobacco: Never Alcohol Use Standard Drinks/Week Comments Yes 0 (1 standard drink = 0.6 oz pure alcoho l) rare Sex Assigned at Date Recorded Not on file documented as of this encounter Miscellaneous Notes Telephone Encounter - Bree George - 09/24/2016 10:59 AM CDT Rx approved, fax to the Edith George Team Assistant Telephone Encounter - Teri Paniagua - 09/24/2016 10:07 AM CDT Pending Prescriptions: Disp Refills phentermine 15 MG capsule 30 cap*0 Sig: Take 1 capsule (15 mg) by mouth every morning phentermine 15 MG capsule Last Written Prescription Date: 08/23/16 Last Fill Quantity: 30, # refills: 0 Last Office Visit with [facility] prescribing provider: 07/31/2016 Future Office visit: Wt Readings from Last 3 Encounters: 07/31/16 163 lb 9.6 oz (74.2 kg) 06/12/16 169 lb 8 oz (76.9 kg) 04/05/16 165 lb 1.6 oz (74.9 kg) BP Readings from Last 3 Encounters: 07/31/16 120/70 06/12/16 110/76 04/05/16 114/74 Routing refill request to provider for review/approval because: Drug not on the [facility] or [facility] refill protocol or controlled substance Carlos Arcelia Team Assistant 09/24/16 documented in this encounter Plan of Treatment Not on filedocumented as of this encounter Visit Diagnoses Diagnosis Overweight documented in this encounter Care Teams Director Clinical Operations Relationship Specialty Start Date End Date Susie Naidu NP PCP - General Nurse Practitioner - Family 03/18/16 documented as of this encounter
--- OUTSIDE RECORDS SUMMARY | 2022-02-16 10:56 | XMS_ITS | Encounter Summary ---
:1975 Author Organization [place] Address [address] [facility] [place] [address] Care Team Providers Name Role Phone Naidu Susie Lonny PRODUCTION CORRUGATOR Primary Care Provider Reason for Visit Reason Onset Date Comments Patient Request 05/01/2017 Phenermine Encounter Details Date Type Department Care Team Description 05/01/2017 [facility] Jocy Bowen Patient Request Clinic Mara Dean APRN CNP (Phenermine) [address] [place] [address] [place], [place] [phone] (Wo rk) [address] [phone] Social History Tobacco Use Types Packs/Day Years [...] schedule a phone visit. Janelle Meraz RN E KID BUFFER Telephone Encounter - Jocy Bowen APRN CNP - 05/02/2017 3:56 PM WHITE KID BUFFER If she can't come in we can do a phone visit. Please offer phone visit for next week. Jocy Bowen CNP E KID BUFFER Telephone Encounter - Janelle Meraz RN - [...] Please review and advise. Janelle Meraz RN E KID BUFFER Telephone Encounter - Jocy Bowen APRN CNP - 05/02/2017 2:18 PM WHITE KID BUFFER Should be seen in clinic to assess weight. Please offer visit for next week. Jocy Bowen CNP E KID BUFFER Telephone Encounter - Skylar Gil RN - 05/02/2017 1:57 PM CST Pt called in to check status of below. Will route to PCP to review. She is hoping to get an answer before the weekend if possible. Thanks. Skylar Gil RN -- [facility] E KID BUFFER Telephone Encounter - Bhumi Taylor I - [...] a detailed message on this number? YES E KID BUFFER documented in this encounter Plan of Treatment Not on filedocumented as of this encounter Visit Diagnoses Not on filedocumented in this encounter Care Teams Adult Basic Education Teacher Relationship Specialty Start Date End Date Susie Naidu, PRODUCTION CORRUGATOR PCP - General Nurse Practitioner - Family 03/18/16 documented as of this encounter
--- OUTSIDE RECORDS SUMMARY | 2022-02-16 10:56 | XMS_ITS | Encounter Summary ---
:1975 Author Organization [place] Address [address] [facility] [place] [address] Care Team Providers Name Role Phone Susie Naidu SWITCH REPAIRER Primary Care Provider Reason for Visit Reason Onset Date Comments Refill Request 10/24/2016 phentermine 15 MG ca psule Encounter Details Date Type Department Care Team Description 10/24/2016 Refill [facility] Susie Naidu, SWITCH REPAIRER Refill Request Clinic [facility] (phentermine 15 MG [id number] [facility] capsule) [place], [place] [address] [address] [facility] [address] [phone] (Wo rk) Social History Tobacco Use Types [...] Last Office Visit with [facility], [facility] or [facility] prescribing provider: 07/31/16 notes said RTC 1 month soI notified her that appt might be required and if so we would call back to let her know documented in this encounter Plan of Treatment Not on filedocumented as of this encounter Visit Diagnoses Diagnosis Overweight documented in this encounter Care Teams Bottom Turner Relationship Specialty Start Date End Date Susie Naidu NP PCP - General Nurse Practitioner - Family 03/18/16 documented as of this encounter
--- OUTSIDE RECORDS SUMMARY | 2022-02-16 10:57 | XMS_ITS | Encounter Summary ---
:1975 Author Organization [place] Address [address] [facility] [place] [address] Support Name Relationship Address Phone Leanne Wu Unavailable Unavailable [phone] [place] [address] Team Providers Name Role Phone Unavailable Primary Care Provider Unavailable Reason for Referral Consultation - Closed Specialty Diagnoses / Procedures Referred By Contact Refer red To Contact Diagnoses Dizziness Other fatigue Generalized muscle weakness Isis Grace [facility] [place] [address] [employer] [address] [address] [address] [place] [address] Phone: [phone] Referral ID Status Reason Start Date Expiration Date Visits Requ ested Visits Authorized [id number] Closed 06/06/2015 06/05/2016 1 1 WASHING MACHINE OPERATOR Reason for Visit Reason Comments Fatigue Encounter Details Date Type Department Care Team Description 06/06/2015 Office Visit [facility] Damián Grace fatigue (Primary Dx); Clinic [place] Isis Edwards PA-C Other iron deficiency anemia; [address] Dizziness; [place], [place] Generalized m uscle weakness [phone] [id number] Social History Tobacco Use Types Packs/Day Years Used Date Smoking Tobacco: Never Smokeless Tobacco: Never Alcohol Use Standard Drinks/Week Comments Yes 0 (1 standard drink = 0.6 oz pure alcoho l) rare Sex Assigned at Date Recorded Not on file documented as of this encounter Last Filed Vital Signs Vital Sign Reading Time Taken Comments Blood Pressure 118/80 06/06/2015 10:39 AM SILK WASHING MACHINE OPERATOR Pulse 75 06/06/2015 10:39 AM SILK WASHING MACHINE OPERATOR Temperature 36.1 ??C (97 ??F) 06/06/2015 10:39 AM SILK WASHING MACHINE OPERATOR Respiratory Rate - - Oxygen Saturation 98% 06/06/2015 10:39 AM SILK WASHING MACHINE OPERATOR Inhaled Oxygen Concentration - - Weight 72.9 kg (160 lb 12.8 oz) 06/06/2015 10:39 AM SILK WASHING MACHINE OPERATOR Height 167.6 cm (5' 6) 06/06/2015 10:39 AM SILK WASHING MACHINE OPERATOR Body Mass Index 25.95 06/06/2015 10:39 AM SILK WASHING MACHINE OPERATOR documented in this encounter Patient Instructions Patient InstructionsAaIsis Chacon PA-C - 06/06/2015 11:23 AM SILK WASHING MACHINE OPERATOR (R53.83) Other fatigue (primary encounter diagnosis) [...] with neurology. To ED if symptoms worsen WASHING MACHINE OPERATOR documented in this encounter Progress [...] Drank red bull (energy drink) went [place] - [place] heart was racing, spinning, couldn't breath, Anxiety [...] Erythrocyte sedimentation rate auto Isis Grace PA-C [facility] Patient Instructions (R53.83) Other fatigue (primary [...] with neurology. To ED if symptoms worsen WASHING MACHINE OPERATOR documented in this encounter Nursing Notes Ana Sommers, ELEN - 06/06/2015 10:40 AM CST Chief Complaint [...] Advised pap is due Ana Sommers CMA WASHING MACHINE OPERATOR documented in this encounter Plan of Treatment Scheduled Referrals Name Type Priority Associated Diagnoses Order S chedule NEUROLOGY ADULT Referral Routine Dizziness Ordered: 06/06/2015 REFERRAL Other fatigue Generalized muscle weakness documented as of this encounter Procedures Procedure Name Priority Date/Time Associated Comments Diagnosis ERYTHROCYTE Routine 06/06/2015 11:28 Generalized muscle Resul ts for this SEDIMENTATION RATE AM SILK WASHING MACHINE OPERATOR weakness procedure are in AUTO the results section. COMPREHENSIVE Routine 06/06/2015 11:28 Other fatigue Results for this METABOLIC PANEL AM SILK WASHING MACHINE OPERATOR Dizziness procedure ar e in the results section. CK TOTAL Routine 06/06/2015 11:28 Generalized muscle Resul ts for this AM SILK WASHING MACHINE OPERATOR weakness procedure are i n the results section. CBC WITH PLATELETS & Routine 06/06/2015 10:49 Other fati li Results for this DIFFERENTIAL AM SILK WASHING MACHINE OPERATOR Other iron procedure are i n deficiency anemia the result s section. documented in this encounter Results (ABNORMAL) Erythrocyte sedimentation rate auto (06/06/2015 11:28 AM SILK WASHING MACHINE OPERATOR) P athologist Signature Sed Rate 28 (H) 0 - 20 mm/h [facility] Specimen Anatomical Collection Method Collection Time Receive d Time (Source) Location / / Volume Laterality Blood specimen 06/06/2015 11:28 6 (specimen) AM SILK WASHING MACHINE OPERATOR 11:29 AM SILK WASHING MACHINE OPERATOR Isis Grace PA-C LAB - BLOOD ORDERABLES Performing Organization Address City/State/ZIP Code Phon e Number [facility] [id number] [place] [address] CK total (06/06/2015 11:28 AM SILK WASHING MACHINE OPERATOR) P athologist Signature CK Total 49 30 - 225 [facility] U/L [facility] Specimen Anatomical Collection Method Collection Time Receive d Time (Source) Location / / Volume Laterality Blood specimen 06/06/2015 11:28 6 (specimen) AM SILK WASHING MACHINE OPERATOR 11:29 AM SILK WASHING MACHINE OPERATOR Isis Grace PA-C LAB - BLOOD ORDERABLES Performing Organization Address City/State/ZIP Code Phon e Number [facility] [address] [place] [address] Comprehensive metabolic panel (06/06/2015 11:28 AM SILK WASHING MACHINE OPERATOR) Patholo gist Method Time Signature Sodium 139 133 - 144 [place] mmol/L [facility] Potassium 4.1 3.4 - 5.3 [place] mmol/L [facility] Chloride 107 94 - 109 [place] mmol/L [facility] Carbon Dioxide 26 20 - 32 [place] mmol/L [facility] Anion Gap 6 3 - 14 [place] mmol/L [facility] Glucose 80 70 - 99 [place] mg/dL [facility] Urea Nitrogen 11 7 - 30 [place] mg/dL [facility] Creatinine 0.57 0.52 - [facility] 1.04 CLINICS mg/dL [facility] GFR Estimate >90 >60 [facility] Non GFR Calc mL/min/1. CLINICS 7m2 [facility] GFR Estimate If >90 >60 [facility] Black GFR Calc mL/min/1. CLIN ICS 7m2 [facility] Calcium 8.7 8.5 - [facility] 10.1 [facility]INICS mg/dL [facility] Bilirubin Total 0.6 0.2 - 1.3 [facility] mg/dL [facility] Albumin 3.8 3.4 - 5.0 [facility] g/dL [facility] Protein Total 8.3 6.8 - 8.8 [facility] g/dL [facility] Alkaline 59 40 - 150 [facility] Phosphatase U/L [facility] ALT 15 0 - 50 [facility] U/L [facility] AST 22 0 - 45 [facility] U/L [facility] Specimen Anatomical Collection Method Collection Time Receive d Time (Source) Location / / Volume Laterality Blood specimen 06/06/2015 11:28 6 (specimen) AM SILK WASHING MACHINE OPERATOR 11:29 AM SILK WASHING MACHINE OPERATOR Isis Grace PA-C LAB - BLOOD ORDERABLES Performing Organization Address City/State/ZIP Code Phon e Number [facility] [address] [place] [address] (ABNORMAL) CBC with platelets differential (06/06/2015 10:49 AM SILK WASHING MACHINE OPERATOR) [facility] gist Method Time Signature WBC 6.8 4.0 - [facility] 11.0 [facility] 10e9/L [place] RBC Count 4.07 3.8 - 5.2 [facility] 10e12/L [facility] Hemoglobin 10.6 (L) 11.7 - [facility] 15.7 g/dL [facility] Hematocrit 33.0 (L) 35.0 - [facility] 47.0 % [facility] MCV 81 78 - 100 [facility] MCH 26.0 (L) 26.5 - [place] 33.0 pg [facility] MCHC 32.1 31.5 - [facility] 36.5 g/dL [facility] RDW 14.8 10.0 - [place] 15.0 % [facility] Platelet Count 244 150 - 450 [place] 10e9/L [facility] Diff Method Automated [facility] % Neutrophils 66.3 % [facility] % Lymphocytes 25.8 % [facility] % Monocytes 6.9 % [facility] % Eosinophils 0.6 % [facility] % Basophils 0.4 % [facility] Absolute 4.5 1.6 - 8.3 [place] Neutrophil 10e9/L [facility] Absolute 1.8 0.8 - 5.3 [facility] Lymphocytes 10e9/L [facility] Absolute 0.5 0.0 - 1.3 [facility] Monocytes 10e9/L [facility] Absolute 0.0 0.0 - 0.7 [place] Eosinophils 10e9/L [facility] Absolute 0.0 0.0 - 0.2 [place] Basophils 10e9/L [facility] Specimen Anatomical Collection Method Collection Time Receive d Time (Source) Location / / Volume Laterality Blood specimen 06/06/2015 10:49 6 (specimen) AM SILK WASHING MACHINE OPERATOR 10:54 AM SILK WASHING MACHINE OPERATOR Isis Grace PA-C LAB - BLOOD ORDERABLES Performing Organization Address City/State/ZIP Code Phon e Number [facility] [address] [place] [address] documented in this encounter Visit Diagnoses Diagnosis Other fatigue - Primary Other iron deficiency anemia Dizziness Dizziness and giddiness Generalized muscle weakness Muscle weakness (generalized) documented in this encounter
--- OUTSIDE RECORDS SUMMARY | 2022-02-16 10:57 | XMS_ITS | Encounter Summary ---
:1975 Author Organization [place] Address [address] [facility] [place] [address] Care Team Providers Name Role Phone Unavailable Primary Care Provider Unavailable Reason for Visit Reason Comments Musculoskeletal Problem Chills, dizzy, skin itchy, l eft hand bruising. Poked self month ago with safety pin. c ould b related? Urgent Care Encounter Details Date Type Department Care Team Description 09/13/2014 Office Visit [facility] Hunter Roman, Hand j oint pain, left Urgent Care Ida ray MD (Primary Dx) [address] [address] [place] [address] [phone] Social History Tobacco Use Types Packs/Day Years [...]
--- OUTSIDE RECORDS SUMMARY | 2022-02-16 10:57 | XMS_ITS | Encounter Summary ---
:1975 Author Organization [place] Address [address] [place] [address] Care Team Providers Name Role Phone Unavailable Primary Care Provider Unavailable Encounter Details Date Type Department Care Team Description 09/13/2014 Radiant Appointment [facility] David Roman joint pain, Clinic [place] MD Hunter left [address] [address] [address] [facility] [phone] [place] [address] Social History Tobacco Use Types Packs/Day [...]
--- OUTSIDE RECORDS SUMMARY | 2022-02-16 10:57 | XMS_ITS | Encounter Summary ---
:1975 Author Organization [place] Address [address] [facility] [place] [address] Care Team Providers Name Role Phone Unavailable Primary Care Provider Unavailable Reason for Visit Reason Comments Urgent Care Cough Encounter Details Date Type Department Care Team Description 06/26/2015 Office Visit [facility] Hunter Roman, Acute pharyngitis, Urgent Care Ida ray MD unspecified etiology [address] (Primary Dx) [place] [address] [phone] Social History Tobacco Use Types Packs/Day Years Used Date Smoking Tobacco: Never Smokeless Tobacco: Never Alcohol Use Standard Drinks/Week Comments Yes 0 (1 standard drink = 0.6 oz pure alcoho l) rare Sex Assigned at Date Recorded Not on file documented as of this encounter Last Filed Vital Signs Vital Sign Reading Time Taken Comments Blood Pressure 120/80 06/26/2015 6:28 PM PRODUCTION QUALITY ANALYST Pulse 76 06/26/2015 6:28 PM PRODUCTION QUALITY ANALYST Temperature 36.8 ??C (98.2 ??F) 06/26/2015 6:28 PM PRODUCTION QUALITY ANALYST Respiratory Rate - - Oxygen Saturation 98% 06/26/2015 6:28 PM PRODUCTION QUALITY ANALYST Inhaled Oxygen Concentration - - Weight 70.3 kg (155 lb) 06/26/2015 6:28 PM PRODUCTION QUALITY ANALYST Height - - Body Mass Index 25.02 06/06/2015 10:39 AM PRODUCTION QUALITY ANALYST documented in this encounter Progress Notes Hunter [...] capsule *UA reflex to Microscopic and Culture ([facility] (except [place] and [place]) ciprofloxacin (CIPRO) 250 MG tablet Beta strep [...] for the abdominal discomfort. Hunter Roman MD [facility] UCTION QUALITY ANALYST documented in this encounter Nursing Notes Nayely Merino CMA - 06/26/2015 6:28 PM CST Please see the progress note for documentation on this office visit UCTION QUALITY ANALYST documented in this encounter Plan of Treatment Not on filedocumented as of this encounter Procedures Procedure Name Priority Date/Time Associated Diagnosis Comme nts URINE MICROSCOPIC Routine 06/26/2015 7:04 PM Acute pharyngitis , Results for this PRODUCTION QUALITY ANALYST unspecified etiology procedu re are in the results section. UA MACROSCOPIC WITH Routine 06/26/2015 7:04 PM Acute pharyngit is, Results for this REFLEX TO PRODUCTION QUALITY ANALYST unspecified etiology procedu re are in MICROSCOPIC AND the results CULTURE section. RAPID STREP SCREEN Routine 06/26/2015 6:34 PM Acute pharyngiti s, Results for this THROAT SWAB PRODUCTION QUALITY ANALYST unspecified etiology procedu re are in the results section. BETA HEMOLYTIC STREP Routine 06/26/2015 6:34 PM Acute pharyngi tis, Results for this GROUP A CULTURE PRODUCTION QUALITY ANALYST unspecified etiology proc edure are in the results section. documented in this encounter Results (ABNORMAL) Urine Microscopic (06/26/2015 7:04 PM PRODUCTION QUALITY ANALYST) athologist Signature WBC Urine O - 2 0 - 2 /HPF [facility] RBC Urine O - 2 0 - 2 /HPF [facility] Squamous Few FEW /LPF [place] Epithelial /LPF [facility] Urine [place] Bacteria Urine Few (A) NEG /HPF [facility] Specimen Anatomical Collection Method Collection Time Receive d Time (Source) Location / / Volume Laterality 06/26/2015 7:04 PM 6 7:05 PRODUCTION QUALITY ANALYST PM PRODUCTION QUALITY ANALYST Hunter Roman MD LAB - URINE ORDERABLES Performing Organization Address City/State/ZIP Code Phon e Number [facility] [address] [place] [address] (ABNORMAL) *UA reflex to Microscopic and Culture ([facility] [place] [facility] (except [place] and [place]) (06/26/2015 7:04 PM PRODUCTION QUALITY ANALYST) Patholo gist Method Time Signature Color Urine Yellow [facility] Appearance Urine Clear [facility] Glucose Urine Negative NEG mg/dL [facility] Bilirubin Urine Negative NEG [facility] Ketones Urine Negative NEG mg/dL [facility] Specific [place] 1.010 1.003 - [place] Urine 1.035 [facility] Blood Urine Trace (A) NEG [facility] pH Urine 6.0 5.0 - 7.0 [place] pH [facility] Protein Albumin Negative NEG mg/dL [place] Urine [facility] Urobilinogen 0.2 0.2 - 1.0 [place] Urine EU/dL [facility] Nitrite Urine Negative NEG [facility] Leukocyte Negative NEG [place] Esterase Urine [facility] Source Midstream [place] Urine [facility] Specimen Anatomical Collection Method Collection Time Receive d Time (Source) Location / / Volume Laterality Urine specimen 06/26/2015 7:04 PM 016 7:05 (specimen) PRODUCTION QUALITY ANALYST PM PRODUCTION QUALITY ANALYST Hunter Roman MD LAB - URINE ORDERABLES Performing Organization Address City/[facility]/ZIP Code Phon e Number [facility] [address] [address] [place] [address] Beta strep group A culture (06/26/2015 6:34 PM PRODUCTION QUALITY ANALYST) Component Value Ref Test Analysis Performed At Patholo gist Range Method Time Signature Specimen Throat [facility] Culture Micro No Beta [place] Streptococcus [facility] Micro Report FINAL 06/28/2015 [facility] Specimen Anatomical Collection Method Collection Time Receive d Time (Source) Location / / Volume Laterality Specimen from 06/26/2015 6:34 PM 06/26/19 16 6:35 throat PRODUCTION QUALITY ANALYST PM PRODUCTION QUALITY ANALYST (specimen) Hunter Roman MD LAB - MICRO GENERAL ORDERABL ES Performing Organization Address [facility]/ZIP Code Phon e Number [facility] [address] [address] [place] [address] Rapid strep screen (06/26/2015 6:34 PM PRODUCTION QUALITY ANALYST) Component Value Ref Test Analysis Performed At [facility] gist Range Method Time Signature Specimen Throat [facility] Rapid Strep A NEGATIVE: No Group A strepto coccal antigen detected by immunoassay, await [place] Screen culture report. [facility] Micro Report FINAL 06/26/2015 [facility] Specimen Anatomical Collection Method Collection Time Receive d Time (Source) Location / / Volume Laterality Specimen from 06/26/2015 6:34 PM 06/26/19 16 6:35 throat PRODUCTION QUALITY ANALYST PM PRODUCTION QUALITY ANALYST (specimen) Hunter Roman MD LAB - MICRO GENERAL ORDERABL ES Performing Organization Address City/[facility]/ZIP Code Phon e Number [facility] [address] [facility] [place] [address] documented in this encounter Visit Diagnoses Diagnosis Acute pharyngitis, unspecified etiology - Primary documented in this encounter
--- OUTSIDE RECORDS SUMMARY | 2022-02-16 10:57 | XMS_ITS | Encounter Summary ---
:1975 Author Organization [place] Address [address] [facility] [place] [address] Care Team Providers Name Role Phone [facility] Primary Care Provider Reason for Visit Reason Comments Tinnitus Encounter Details Date Type Department Care Team Description 09/15/2015 Office Visit [facility] Raghu Freed Dysfunct ion of eustachian tube, bilateral (Primary Dx); Clinic [place] JEREMY [place] Tinnitus, bilateral; [address] [facility] [address] [facility] [place] [address] [phone] Social History Tobacco Use Types Packs/Day Years [...] Follow up: see above Raghu Freed PA-C [facility] documented in this encounter Plan of Treatment Not on filedocumented as of this encounter Visit Diagnoses Diagnosis Dysfunction of Eustachian tube, bilatera l - Primary Tinnitus, bilateral Unspecified tinnitus Other iron deficiency anemia documented in this encounter Care Teams Deckhand Crab Boat Relationship Specialty Start Date End Date Clinic - [facility] PCP - General 09/21/15 03/17/16 [address] [place] [address] documented as of this encounter
--- OUTSIDE RECORDS SUMMARY | 2022-02-16 10:57 | XMS_ITS | Encounter Summary ---
:1975 Author Organization [place] Address [address] [place] [address] Care Team Providers Name Role Phone Unavailable Primary Care Provider Unavailable Encounter Details Date Type Department Care Team Description 02/23/2015 Orders Only [facility] Lyric Carrasco Iron de ficiency anemia Clinic [place] KARAN Grey TRACK HOE OPERATOR (Primary Dx) [address] [address] [phone] Social History Tobacco Use Types Packs/Day Years [...]
--- OUTSIDE RECORDS SUMMARY | 2022-02-16 10:57 | XMS_ITS | Encounter Summary ---
:1975 Author Organization [place] Address [address] [facility] [place] [address] Care Team Providers Name Role Phone Unavailable Primary Care Provider Unavailable Encounter Details Date Type Department Care Team Description 02/28/2015 Orders Only [facility] Lyric Carrasco Iron de ficiency Clinic [place] KARAN Grey MANAGER GALLERY (Primary Dx) [address] [address] [phone] Social History Tobacco Use Types Packs/Day Years [...]
--- OUTSIDE RECORDS SUMMARY | 2022-02-16 10:57 | XMS_ITS | Encounter Summary ---
:1975 Author Organization [place] Address [address] [facility] [place] [address] Care Team Providers Name Role Phone Unavailable Primary Care Provider Unavailable Reason for Visit Reason Comments Headache Nausea Encounter Details Date Type Department Care Team Description 02/21/2015 Office Visit [facility] [place] Fatigue (Primary Dx); [facility] [place] KARAN Grey CLIP ON SUNGLASSES INSPECTOR Flatulence, eructation, and gas pain; [address] [facility] [address] [facility] Acute sinusitis with symptoms > 10 [place] [address] [phone] Social History Tobacco Use Types Packs/Day Years [...] documented in this encounter Patient Instructions Patient InstructionsDanilo Lyric GreyKARAN CLIP ON SUNGLASSES INSPECTOR - 02/21/2015 3:18 PM CDT Images from [...] sinuses open and free of mucus. Try mwjx-vtz-dfdjedq sinus rinse products. ?? Use a nasal [...] for other headache conditions, like migraines. ?? [phone] [employer]. [address] [place] [address]. All rights reserved. This information is not [...] directed by your health care provider ?? [phone] [employer]. [address] [place] [address]. All rights reserved. This information is not [...] sinuses open and free of mucus. Try epoq-lwi-htxzlei sinus rinse products. ?? Use a nasal [...] for other headache conditions, like migraines. ?? [phone] [employer]. [address] [place] [address]. All rights reserved. This information is not [...] directed by your health care provider ?? [phone] [employer]. [address] [place] [address], [place] [address]. All rights reserved. This information is not intended as a substitute for professional medical care. Always follow your healthcare professional's instructions. Lyric Carrasco APRN CLIP ON SUNGLASSES INSPECTOR [facility] documented in this encounter Nursing Notes Ute [...] Sed Rate 17 0 - 20 mm/h [facility] Specimen Anatomical Collection Method Collection Time Receive d Time (Source) Location / / Volume Laterality Blood specimen 02/21/2015 3:20 PM 015 3:25 (specimen) CDT PM CDT Lyric Carrasco APRN, CNP LAB - BLOOD ORDERABLES Performing Organization Address City/[facility]/ZIP Code Phon e Number [facility] [address] [place] [address] (ABNORMAL) Iron and iron binding capacity (02/21/2015 3:20 PM CDT) athologist Signature Iron 37 35 - 180 [place] ug/dL [facility] Iron Binding 429 240 - 430 [place] Cap ug/dL [facility] Iron Saturation 9 (L) 15 - 46 % [place] Index [facility] Specimen Anatomical Collection Method Collection Time Receive d Time (Source) Location / / Volume Laterality Blood specimen 02/21/2015 3:20 PM 015 3:25 (specimen) CDT PM CDT Lyric Carrasco APRN, CNP LAB - BLOOD ORDERABLES Performing Organization Address City/[facility]/ZIP Code Phon e Number [facility] [address] [place] [address] Tissue transglutaminase ramone IgA and IgG (02/21/2015 3:20 PM CDT) [facility] gist Method Time Signature Tissue <1.0 0 - 3.9 [facility] Transglutaminase Interpretation: ??Negative U/mL [place] [facility] Antibody IgA [facility] Tissue 2.0 0 - 5.9 [facility] Transglutaminase Ramone U/mL [place] MED[place] IgG [facility] Comment: Interpretation: Negative Specimen Anatomical Collection Method Collection Time Receive d Time (Source) Location / / Volume Laterality Blood specimen 02/21/2015 3:20 PM 015 3:25 (specimen) CDT PM CDT Lyric Que [place] ELECTRICAL MAINTENANCE WORKER CLIP ON SUNGLASSES INSPECTOR LAB - BLOOD ORDERABLES Performing Organization Address City/State/ZIP Code Phon e Number [facility] [address] [place] [address] [facility] (ABNORMAL) Ferritin (02/21/2015 3:20 PM CDT) athologist Signature Ferritin 3 (L) 12 - 150 [facility] ng/mL [facility] Specimen Anatomical Collection Method Collection Time Receive d Time (Source) Location / / Volume Laterality Blood specimen 02/21/2015 3:20 PM 015 3:25 (specimen) CDT PM CDT Lyric Cartylizz Carrasco APRN CLIP ON SUNGLASSES INSPECTOR LAB - BLOOD ORDERABLES Performing Organization Address City/State/ZIP Code Phon e Number [facility] [address] [address] (ABNORMAL) CBC with platelets and differential (02/21/2015 3:20 PM CDT) athologist [facility] WBC 7.5 4.0 - 11.0 [place] 10e9/L [facility] RBC Count 4.02 3.8 - 5.2 [place] 10e12/L [facility] Hemoglobin 10.7 (L) 11.7 - 15.7 [place] g/dL [facility] Comment: Results confirmed by repeat sean t Hematocrit 32.9 (L) 35.0 - 47.0 % [facility] MCV 82 78 - 100 fl [facility] MCH 26.6 26.5 - 33.0 pg [facility] MCHC 32.5 31.5 - 36.5 g/dL [place] [facility] [place] RDW 14.1 10.0 - 15.0 % [facility] Platelet Count 299 150 - 450 10e9/L [facility] Diff Method Automated Method [place] [facility] [place] % Neutrophils 64.9 % [facility] % Lymphocytes 26.4 % [facility] % Monocytes 7.0 % [facility] % Eosinophils 1.2 % [facility] % Basophils 0.5 % [facility] Absolute Neutrophil 4.9 1.6 - 8.3 10e9/L [facility] Absolute Lymphocytes 2.0 0.8 - 5.3 10e9/L [facility] Absolute Monocytes 0.5 0.0 - 1.3 10e9/L [facility] Absolute Eosinophils 0.1 0.0 - 0.7 10e9/L [facility] Absolute Basophils 0.0 0.0 - 0.2 10e9/L [facility] Specimen Anatomical Collection Method Collection Time Receive d Time (Source) Location / / Volume Laterality Blood specimen 02/21/2015 3:20 PM 015 3:25 (specimen) CDT PM CDT Lyric Carrasco APRN CLIP ON SUNGLASSES INSPECTOR LAB - BLOOD ORDERABLES Performing Organization Address City/State/ZIP Code Phon e Number [facility] [address] [place] [address] documented in this encounter Visit Diagnoses Diagnosis Fatigue - Primary Other malaise and fatigue Flatulence, eructation, and gas pain Acute sinusitis with symptoms > 10 days Acute sinusitis, unspecified documented in this encounter
--- OUTSIDE RECORDS SUMMARY | 2022-02-16 10:57 | XMS_ITS | Encounter Summary ---
:1975 Author Organization [place] Address [address] [facility] [place] [address] Support Name Relationship Address Phone Leanne Wu Unavailable Unavailable [phone] [place] [address] Team Providers Name Role Phone [facility] Primary Care Provider Susie Naidu CROP OR GRAIN FARMWORKER Primary Care Provider [facility] Primary Care Provider No Ref-Primary, Physician Primary Care Provider Isis Graec-C Unavailable [phone] Raghu Freed-C Unavailable [phone] Raghu Freed-C Unavailable [phone] Isis Grace-C Unavailable [facility] Primary Care Provider Irina Ricci NP Unavailable Raghu Meadows CNP Unavailable Irina Ricci NP Unavailable Raghu Meadows OBSTETRICS NURSE Unavailable Irina Ricci CROP OR GRAIN FARMWORKER Unavailable Raghu Meadows OBSTETRICS NURSE Unavailable Lily Rincon PA-C Unavailable Asha Urbina PA-C Unavailable [phone] Ingrid Gillespie CNP Unavailable Rafaela HigueraC Unavailable Ingrid Gillespie OBSTETRICS NURSE Unavailable Luis E Mtz MD Unavailable Meg VigilC Unavailable Reason for Visit Reason Onset Date Comments Outreach 10/08/2014 P[facility] ATT 1 Encounter Details Date Type Department Care Team Description 10/08/2014 Telephone [facility] Ladarius Mccain Outreach (PHS ATT 1) Mara LUNA [facility], [address] [place] [address] Social History Tobacco Use [...] is due in February for pap Outreach Radioisotope Technologist Lyric Molina documented in this encounter Plan of Treatment Not on filedocumented as of this encounter Visit Diagnoses Not on filedocumented in this encounter Additional Health Concerns Infection Onset Date Last Indicated Resolved Time Rule Out COVID-19 11/10/2019 11/10/2019 11/10/2019 9:5 3 PM CDT documented as of this encounter Care Teams Seed District Sales Manager Relationship Specialty Start Date End Date Clinic - [facility]he PCP - General 09/21/1503/17 [facility] [address] [place], [place] [id number] Susie Naidu, CROP OR GRAIN FARMWORKER PCP - General Nurse Practitioner - 03/18/16 12/09/17 Family [facility] PCP - General 12/10/17 [facility] [address] [place] [address] No Ref-Primary, PCP - General 03/13/18 09/15/18 Physician Sanjay, PCP - Assigned PCP 08/03/17 9 Isis Edwards PA-C [address] [place] [address] Raghu Freed PCP - Assigned PCP 06/07/18 07/07/18 JEREMY [place] [address] [place] [address] [facility] PCP - General 09/16/18 [facility] [address] [place] [address] Raghu Freed Assigned PCP 06/07/18 09/19/18 JEREMY [place] [address] [place] [address] Sanjay, Assigned PCP 08/03/17 06/06/18 Isis Edwards PA-C [address] [place] [address] Irina Ricci, Assigned PCP 09/20/18 9 CROP OR GRAIN FARM[place] [address] Raghu Meadows, OBSTETRICS NURSE Assigned PCP 01/31/19 02/06/19 [address] [place] [address], [place] [address] Irina Ricci, Assigned PCP 02/07/19 9 CROP OR GRAIN FARMWORKER [address] [place] [address] Raghu Meadows, OBSTETRICS NURSE Assigned PCP 03/07/19 03/13/19 [address] [place] [address], [place] [address] Irina Ricci, Assigned PCP 03/14/19 0 CROP OR GRAIN FARMWORKER [address] [place] [address] Raghu Meadows, OBSTETRICS NURSE Assigned PCP 09/19/19 12/18/19 [address] [place] [address] Lily Rincon, Assigned PCP 12/19/19 08/12/20 PAYenniferC [address] [facility] [address] [place] [id number] Asha Urbina Assigned PCP 08/13/20 09/27/20 JEREMY [place] [address] [place], [place] [phone] Ingrid Gillespie, Assigned PCP 09/28/20 12/30/20 OBSTETRICS NURSE [address] [place], [place] [phone] Dusty Patel, Assigned PCP 12/31/20 01/06/21 Rafaela Ugarte PA-C [address] [facility] [place] [address] Ingrid Gillespie, Assigned PCP 01/28/21 OBSTETRICS NURSE [address] [place] [address] [id number] Luis E Mtz MD Assigned Surgical 01/14/21 [address] [facility] Provider [address] [place], [place] [id number] Meg Vigil Assigned PCP 01/07/21 01/27/21 JEREMY Christopher [address] [place] [phone] documented as of this encounter
--- OUTSIDE RECORDS SUMMARY | 2022-02-16 10:57 | XMS_ITS | Encounter Summary ---
:1975 Author Organization [place] Address [address] [facility] [place] [address] Care Team Providers Name Role Phone Unavailable Primary Care Provider Unavailable Encounter Details Date Type Department Care Team Description 12/16/2014 Office Visit [facility] Ladarius Mccain W (Primary Dx) [facility] [place] JEREMY Dugan [address] [place] [address] [facility], [address] [place] [address] [place], [place] [phone] (Wo rk) [address] [phone] Social History Tobacco Use Types Packs/Day Years [...]
--- OUTSIDE RECORDS SUMMARY | 2022-02-16 10:57 | XMS_ITS | Encounter Summary ---
:1975 Author Organization [place] Address [address] [facility] [place] [address] Care Team Providers Name Role Phone Clinic - [facility] Primary Care Provider Reason for Visit Reason Comments Abdominal Pain Pharyngitis Encounter Details Date Type Department Care Team Description 09/21/2015 Emergency [facility] John Marcano Nas al congestion; [facility] Emergency Dep t DETECTIVE NARCOTICS AND VICE SPECIAL POLICE Abdominal pain, epigastric; [address] [facility] Throat [place] [address] [address] [phone] [place], [place] [address] (Wo rk) Social History [...] documented in this encounter Discharge Instructions Discharge InstructionsJohn Marcano APRN SPECIAL POLICE - 09/21/2015 4:30 PM CDT Images from [...] Talk to your doctor before taking any yatc-drb-zmwctbv medicine that contains aspirin or an anti-inflammatory [...] by your healthcare provider Abdominal swelling ?? [phone] [employer]. [address] [place] [address]. All rights reserved. This information is not [...] salt in??1/2 cup of warm water An zlmz-evl-axdayco anesthetic gargle Use Medication for More Relief Ohcv-tgn-mdeuxag medication can reduce sore throat symptoms. Ask [...] spreading. Don???t strain your vocal cords. ?? [phone] [employer]. [address] [place] [address]. All rights reserved. This information is not [...] contain Tylenol?? (acetaminophen), including Vicodin??, Tylenol #3??, [place]??, Lortab??, and Percocet??. You should not take [...] daily for 5 days fluticasone (FLONASE) 50 [place] 1-2 sprays 16 g 3 09/1406/12/2016 MCG/ACT nasal into both nostrils sprayIndications: daily Dysfunction of Eustachian tube, bilateral, Tinnitus, bilateral loratadine (CLARITIN) 10 Take 10 mg by mouth 0 07/31/2016 MG tablet daily documented as of this encounter ED Notes John Marcano APRN SPECIAL POLICE - 09/21/2015 3:16 PM CDT History Chief [...] pain Discharge Medications: Prilosec Carafate Scribe Disclosure: Raghu Mccrary, am serving as a scribe at 3:17 PM on 09/21/2015 to document services personally performed by John Marcano APRN*, based on my observations and the provider's statements to me. 09/21/2015 [facility] EMERGENCY DEPARTMENT John Marcano APRN SPECIAL POLICE 09/21/15 1809 Debbie Millan RN - 09/21/2015 [...] dilatation. MAYRA MERCER MD John Marcano APRN SPECIAL POLICE IMG US ORDERABLES Lipase (09/21/2015 3:40 PM CDT) P athologist Signature Lipase 148 73 - 393 [facility] U/L [facility]OSPITAL Specimen Anatomical Collection Method Collection Time Receive d Time (Source) Location / / Volume Laterality Blood specimen 09/21/2015 3:40 PM 016 3:48 (specimen) CDT PM CDT John Marcano APRN SPECIAL POLICE LAB - BLOOD ORDERABLES Performing Organization Address City/State/ZIP Code Phon e Number [place] [address] [place] [address] [facility] [address] [place] [phone] Comprehensive metabolic panel (09/21/2015 3:40 PM CDT) [facility] gist Method Time Signature Sodium 137 133 - 144 [place] mmol/L [facility] Potassium 3.6 3.4 - 5.3 [place] mmol/L [facility] Chloride 107 94 - 109 [place] mmol/L [facility] Carbon Dioxide 25 20 - 32 [place] mmol/L [facility] Anion Gap 5 3 - 14 [place] mmol/L [facility] Glucose 83 70 - 99 [place] mg/dL [facility] Urea Nitrogen 10 7 - 30 [place] mg/dL [facility] Creatinine 0.65 0.52 - [place] 1.04 [facility] mg/dL HOSPITAL GFR Estimate >90 >60 [place] Non GFR Calc mL/min/1. [place] [address] [facility] GFR Estimate If >90 >60 [place] Black GFR Calc mL/min/1. [place] 7m2 [facility] Calcium 8.5 8.5 - [place] 10.1 [facility] mg/dL [facility] Bilirubin Total 0.9 0.2 - 1.3 [place] mg/dL [facility] Albumin 3.6 3.4 - 5.0 [place] g/dL [facility] Protein Total 7.7 6.8 - 8.8 [place] g/dL [facility] Alkaline 56 40 - 150 [place] Phosphatase U/L [facility] ALT 21 0 - 50 [place] [facility] AST 25 0 - 45 [place] [facility] Specimen Anatomical Collection Method Collection Time Receive d Time (Source) Location / / Volume Laterality Blood specimen 09/21/2015 3:40 PM 016 3:48 (specimen) CDT PM CDT John Marcano APRN SPECIAL POLICE LAB - BLOOD ORDERABLES Performing Organization Address City/State/ZIP Code Phon e Number [place] [address] [address] [place] [address] [facility] [address] [place], [place] [address] [place] [address] documented in this encounter Visit Diagnoses Diagnosis [...] 09/20/2015 09/21/2015 0.9% sodium chloride BOLUS (COMPLETED) 1535 (New Bag - Provider: Julia Nicole, DELLA)1635 (Stopped - Provider: Romelia Ramirez, DELLA) Intravenous, 1,000 mL, ONCE, at 2,000 mL /hr, for 30 Minutes, [place] 09/21/15 at 1530, For 1 dose ibuprofen (ADVIL,MOTRIN) tablet 600 mg (COMPLETED) 162 (Given - Provider: Romelia Ramirez, DELLA) 600 mg, Oral, ONCE, [place] 09/21/15 at 1624, For 1 dose lidocaine (XYLOCAINE) 2 % 15 mL, alum & mag hydroxide-simethicone ([place] ES/MAALOX ES) 15 mL GI Cocktail (COMPLETED) 162 (Given - Provider: Romelia Ramirez, DELLA) 30 mL, Oral, ONCE, [place] 09/21/15 at 1618, For 1 dose ondansetron (ZOFRAN) injection 4 mg (COMPLETED) 153 (Given - Provider: Julia Nicole, DELLA) 4 mg, Intravenous, ONCE, for 2 Minutes, [place] 09/21/15 at 1530, For 1 dose pantoprazole(PROTONIX) 40 mg vial (COMPLETED) 162 (Given - Provider: Romelia Ramirez RN) 40 mg, Intravenous, for 15 Minutes, ONCE, [place] 09/21/15 at 1618, F or 1 dose documented in this encounter Care Teams Sanitarian Relationship Specialty Start Date End Date Clinic - [facility] PCP - General 09/21/15 03/17/16 [address] [place] [address] documented as of this encounter
--- OUTSIDE RECORDS SUMMARY | 2022-02-16 10:57 | XMS_ITS | Encounter Summary ---
:1975 Author Organization [place] Address [address] [facility] [place] [address] Care Team Providers Name Role Phone Unavailable Primary Care Provider Unavailable Reason for Visit Reason Comments Abdominal Pain Encounter Details Date Type Department Care Team Description 09/14/[address] [facility] Bhumi Wild Viral pharyngitis (Primary Dx); Clinic Moshe Sahni MD Stomach pain; [address] [facility] [address] [facility] Other iron deficiency anemia; [place], [place] [address] Throat pain [id number] [phone] Social History Tobacco Use Types Packs/Day Years [...] NEG Ketones Urine Negative NEG mg/dL Specific [place] Urine 1.015 1.003 - 1.035 Blood Urine [...] culture Follow-up as needed Bhumi Wild MD [facility] documented in this encounter Nursing Notes Marcin Cornejo, ENTRY LEVEL PROJECT COORDINATOR - 09/14/2015 3:29 PM CDT Chief Complaint [...] Value Ref Test Analysis Performed At [facility] gist Range Method Time Signature Specimen Throat [place] Description [facility] Culture Micro No Beta [place] Streptococcus [facility] isolated [place] Micro Report FINAL 09/16/2015 [place] Status [facility] Specimen Anatomical Collection Method Collection Time Receive d Time (Source) Location / / Volume Laterality Specimen from 09/14/2015 3:56 PM 09/14/19 16 4:11 throat CDT PM CDT (specimen) Bhumi Wild MD LAB - MICRO GENERAL ORDERABL ES Performing Organization Address City/[facility]/ZIP Code Phon e Number [facility] [address] [place] [address] Strep, Rapid Screen (09/14/2015 3:56 PM CDT) Component Value Ref Test Analysis Performed At [facility] gist Range Method Time Signature Specimen Throat [place] Description [facility] Rapid Strep A NEGATIVE: No Group A strepto coccal antigen detected by immunoassay, await [place] Screen culture report. [facility] Micro Report FINAL 09/14/2015 [facility] Status [facility] Specimen Anatomical Collection Method Collection Time Receive d Time (Source) Location / / Volume Laterality Specimen from 09/14/2015 3:56 PM 09/14/19 16 4:00 throat CDT PM CDT (specimen) Bhumi Wild MD LAB - MICRO GENERAL ORDERABL ES Performing Organization Address City/[facility]/ZIP Code Phon e Number [facility] [address] [address] [facility] [place] [address] Mononucleosis screen (09/14/2015 3:54 PM CDT) [facility] Method Time Signature Mononucleosis Negative NEG [place] Screen [facility] Specimen Anatomical Collection Method Collection Time Receive d Time (Source) Location / / Volume Laterality Blood specimen 09/14/2015 3:54 PM 016 3:57 (specimen) CDT PM CDT Bhumi Wild MD LAB - BLOOD ORDERABLES Performing Organization Address City/[facility]/ZIP Code Phon e Number [facility] [address] [address] [facility] [place] [address] (ABNORMAL) CBC with platelets and differential (09/14/2015 3:54 PM CDT) P athologist Signature WBC 7.5 4.0 - 11.0 [place] 10e9/L [facility] RBC Count 3.95 3.8 - 5.2 [place] 10e12/L [facility] Hemoglobin 9.9 (L) 11.7 - 15.7 [place] g/dL [facility] Comment: Results confirmed by repeat test Reviewed: OK with previous Hematocrit 31.2 (L) 35.0 - 47.0 % [facility] MCV 79 78 - 100 fl [facility] MCH 25.1 (L) 26.5 - 33.0 pg [facility] MCHC 31.7 31.5 - 36.5 g/dL [facility] [facility] ICS [place] RDW 14.9 10.0 - 15.0 % [facility] Platelet Count 273 150 - 450 10e9/L [facility] Diff Method Automated Method [place] [facility] INICS [place] % Neutrophils 61.0 % [facility] % Lymphocytes 29.4 % [facility] % Monocytes 8.4 % [facility] % Eosinophils 0.8 % [facility] % Basophils 0.4 % [facility] Absolute Neutrophil 4.6 1.6 - 8.3 10e9/L [place] [facility] Absolute Lymphocytes 2.2 0.8 - 5.3 10e9/L [facility] Absolute Monocytes 0.6 0.0 - 1.3 10e9/L [facility] Absolute Eosinophils 0.1 0.0 - 0.7 10e9/L [facility] Absolute Basophils 0.0 0.0 - 0.2 10e9/L [facility] Specimen Anatomical Collection Method Collection Time Receive d Time (Source) Location / / Volume Laterality Blood specimen 09/14/2015 3:54 PM 016 3:57 (specimen) CDT PM CDT Bhumi Wild MD LAB - BLOOD ORDERABLES Performing Organization Address City/State/ZIP Code Phon e Number [facility] [address] [place] [address] Urine Microscopic (09/14/2015 3:20 PM CDT) P athologist Signature WBC Urine O - 2 0 - 2 /HPF [facility] RBC Urine O - 2 0 - 2 /HPF [facility] Squamous Few FEW /LPF [place] Epithelial /LPF [facility] Urine [place] Specimen Anatomical Collection Method Collection Time Receive d Time (Source) Location / / Volume Laterality 09/14/2015 3:20 PM 6 3:31 CDT PM CDT Bhumi Wild MD LAB - URINE ORDERABLES Performing Organization Address City/[facility]/ZIP Code Phon e Number [facility] [address] [place] [address] (ABNORMAL) UA reflex to Microscopic and Culture (09/14/2015 3:20 PM CDT) [facility] Method Time Signature Color Urine Yellow [facility] Appearance Urine Clear [facility] Glucose Urine Negative NEG mg/dL [facility] Bilirubin Urine Negative NEG [facility] Ketones Urine Negative NEG mg/dL [facility] Specific [place] 1.015 1.003 - [place] Urine 1.035 [facility] Blood Urine Trace (A) NEG [facility] pH Urine 6.5 5.0 - 7.0 [place] pH [facility] Protein Albumin Negative NEG mg/dL [place] Urine [facility] Urobilinogen 0.2 0.2 - 1.0 [place] Urine EU/dL [facility] Nitrite Urine Negative NEG [facility] Leukocyte Negative NEG [place] Esterase Urine [facility] Source Midstream [facility] Specimen Anatomical Collection Method Collection Time Receive d Time (Source) Location / / Volume Laterality Urine specimen 09/14/2015 3:20 PM 016 3:31 (specimen) CDT PM CDT Bhumi Wild MD LAB - URINE ORDERABLES Performing Organization Address City/[facility]/ZIP Code Phon e Number [facility] [address] [place] [address] documented in this encounter Visit Diagnoses Diagnosis Viral pharyngitis - Primary Acute pharyngitis Stomach pain Dyspepsia and other specified disorders of function of stomach Other iron deficiency anemia Throat pain documented in this encounter
--- OUTSIDE RECORDS SUMMARY | 2022-02-16 10:57 | XMS_ITS | Encounter Summary ---
:1975 Author Organization [place] Address [address] [place] [address] Care Team Providers Name Role Phone Unavailable Primary Care Provider Unavailable Reason for Visit Reason Onset Date Comments Panel Management 06/21/2015 Encounter Details Date Type Department Care Team Description 06/21/2015 Telephone [facility] Lyric Carrasco, Panel Management [place] SUPERVISOR [facility] [address] [address] [place], [place] [id number] (Wo rk) Social History Tobacco Use Types [...] back to scheduled the appointment. Bree George Account Services Manager WAINER Telephone Encounter - Bree George - 07/13/2015 11:18 AM CST LVM message asking patient to call the clinic, please inform her that she is due for a physical and pap. Bree George Account Services Manager WAINER Telephone Encounter - Skylar Ku CMA - [...] Ku CMA Chart routed to none . WAINER documented in this encounter Plan of Treatment Not on filedocumented as of this encounter Visit Diagnoses Not on filedocumented in this encounter
--- OUTSIDE RECORDS SUMMARY | 2022-02-16 10:57 | XMS_ITS | Encounter Summary ---
:1975 Author Organization [place] Address [address] [facility] [place] [address] Support Name Relationship Address Phone Leanne Wu Unavailable Unavailable [phone] [place] [address] Team Providers Name Role Phone Unavailable Primary Care Provider Unavailable Reason for Visit Reason Comments Tachycardia started around 3:30pm drank a redbull. Dizziness Nausea Encounter Details Date Type Department Care Team Description 05/05/2015 Emergency [place] Emergency Departm ent Bree Oreilly MD Tachycardia [address] [address] [place] [address] [phone] (Wo rk) Social History Tobacco Use Types Packs/Day Years Used Date Smoking Tobacco: Never Smokeless Tobacco: Never Alcohol Use Standard Drinks/Week Comments Yes 0 (1 standard drink = 0.6 oz pure alcoho l) rare Sex Assigned at Date Recorded Not on file documented as of this encounter Last Filed Vital Signs Vital Sign Reading Time Taken Comments Blood Pressure 150/75 05/05/2015 7:56 PM FRAME COVERER Pulse 106 05/05/2015 7:56 PM FRAME COVERER Temperature 37.2 ??C (98.9 ??F) 05/05/2015 7:56 PM FRAME COVERER Respiratory Rate 18 05/05/2015 7:56 PM FRAME COVERER Oxygen Saturation 99% 05/05/2015 7:56 PM FRAME COVERER Inhaled Oxygen Concentration - - Weight - - Height - - Body Mass Index - - documented in this encounter Discharge Instructions AttachmentsThe following attachments cannot be sent through Care Everywhere. SYNCOPE, CAUSES OF ([place])documented in this encounter Medications at Time of [...] face report given to Analy Beltrán RN. E COVERER Calli Keller RN - 05/05/2015 6:00 PM CST Portable xray complete. Sig other at bedside. E COVERER Calli Keller RN - 05/05/2015 5:50 PM CST MD at bedside. Exam done. E COVERER Jovana Valerio RN - 05/05/2015 5:23 PM [...] C/o headache over middle of forehead 01/12. E COVERER Calli Keller RN - 05/05/2015 5:20 PM CST MD at bedside. Spoke with pt. Bree Yanes MD - 05/05/2015 5:19 PM CST eMERGENCY [...] she couldn't breathe, she had her sister clod puller, then then went to a gas [...] had for a week. He lives in [facility], has been seen for it, has Hep C and just startedmedication for it. I suggested he be seen the ED but he declines. Bree Oreilly MD 05/06/151920 E COVERER documented in this encounter Plan of Treatment Pending Results Name Type Priority Associated Diagnoses Date/Ti me EKG CARDIAC - HIM SCAN EKG 05/05 5:32 PM FRAME COVERER documented as of this encounter Procedures Procedure Name Priority Date/Time Associated Comments Diagnosis HCG QUALITATIVE URINE STAT 05/05/2015 6:30 PM Results for this FRAME COVERER procedure are i n the results section. ROUTINE UA WITH STAT 05/05/2015 6:30 PM Result s for this MICROSCOPIC FRAME COVERER procedure are i n the results section. XR CHEST PORT 1 VIEW STAT 05/05/2015 5:59 PM R esults for this FRAME COVERER procedure are i n the results section. EKG CARDIAC - HIM SCAN 05/05/2015 5:32 PM FRAME COVERER EKG CARDIAC - HIM SCAN 05/05/2015 5:32 PM FRAME COVERER D-DIMER GH STAT 05/05/2015 5:30 PM Results f or this FRAME COVERER procedure are i n the results section. CBC WITH PLATELETS & STAT 05/05/2015 5:30 PM R esults for this DIFFERENTIAL FRAME COVERER procedure are i n the results section. TSH STAT 05/05/2015 5:30 PM Results f or this FRAME COVERER procedure are i n the results section. TROPONIN I STAT 05/05/2015 5:30 PM Results f or this FRAME COVERER procedure are i n the results section. COMPREHENSIVE STAT 05/05/2015 5:30 PM Results for this METABOLIC PANEL FRAME COVERER procedure ar e in the results section. documented in this encounter Results (ABNORMAL) UA with Microscopic (05/05/2015 6:30 PM FRAME COVERER) [facility] Method Time Signature Color Urine Light Yellow [facility] Appearance Urine Clear [facility] Glucose Urine Negative NEG mg/dL [facility] Bilirubin Urine Negative NEG [facility] Ketones Urine Negative NEG mg/dL [facility] Specific [place] 1.003 1.003 - [place] Urine 1.035 [facility] Blood Urine Negative NEG [facility] pH Urine 5.0 4.7 - 8.0 [place] pH [facility] Protein Albumin Negative NEG mg/dL [facility] Urobilinogen Normal 0.0 - 2.0 [place] mg/dL mg/dL [facility] Nitrite Urine Negative NEG [facility] Leukocyte Negative NEG [place] Esterase Urine [facility] Source Midstream [facility] WBC Urine 1 0 - 2 [facility] /HPF [facility] RBC Urine 1 0 - 2 [facility] /HPF [facility] Bacteria Urine Few (A) NEG /HPF [facility] Squamous 3 (H) 0 - 1 [facility] Epithelial /HPF /HPF [facility] Specimen Anatomical Collection Method Collection Time Receive d Time (Source) Location / / Volume Laterality Urine specimen 05/05/2015 6:30 PM 016 6:34 (specimen) FRAME COVERER PM FRAME COVERER Bree Oreilly MD LAB - URINE ORDERABLES Performing Organization Address City/State/ZIP Code Phon e Number [facility] [address] [phone] HCG qualitative urine (05/05/2015 6:30 PM FRAME COVERER) athologist Signature HCG Qual Urine Negative NEG [facility] Specimen Anatomical Collection Method Collection Time Receive d Time (Source) Location / / Volume Laterality Urine specimen 05/05/2015 6:30 PM 016 6:34 (specimen) FRAME COVERER PM FRAME COVERER Bree Oreilly MD LAB - URINE ORDERABLES Performing Organization Address City/[facility] Phon e Number M [address] [address] [phone] [phone] XR Chest Port 1 View (05/05/2015 5:59 PM FRAME COVERER) Anatomical Region Laterality Modality Chest Other Specimen (Source) Anatomical Collection Method Collection Time Re ceived Time Location / / Volume Laterality 05/05/2015 5:51 PM FRAME COVERER Narrative 05/06/2015 1:21 PM FRAME COVERER SINGLE VIEW CHEST HISTORY: ??A 39-year-old female [...] CARDIAC - HIM SCAN (05/05/2015 5:32 PM FRAME COVERER) Specimen (Source) Anatomical Collection Method Collection Time Re ceived Time Location / / Volume Laterality 05/05/2015 5:32 PM FRAME COVERER Narrative This result has an attachment that is no t available. Provider Scan ECG ORDERABLES D-Dimer (FV Range) (05/05/2015 5:30 PM FRAME COVERER) athologist Signature D-Dimer ng/mL 231 0 - 300 [place] RANGE ng/ml [facility] Specimen Anatomical Collection Method Collection Time Receive d Time (Source) Location / / Volume Laterality Blood specimen 05/05/2015 5:30 PM 016 5:36 (specimen) FRAME COVERER PM FRAME COVERER Bree Oreilly MD LAB - BLOOD ORDERABLES Performing Organization Address City/[facility]/ZIP [facility] Phon e Number [facility] [address] [address] [facility] [address] [phone] Troponin I (05/05/2015 5:30 PM FRAME COVERER) [facility] gist Method Time Signature Troponin I ES <0.015 0.000 - [place] The 99th percentile for uppe r reference range is 0.045 ug/L. ??Troponin values in 0.045 [facility] the range of 0.045 - 0.120 ug/L may be associated wit h risks of adverse ug/L [facility]ENTER clinical events. Specimen Anatomical Collection Method Collection Time Receive d Time (Source) Location / / Volume Laterality Blood specimen 05/05/2015 5:30 PM 016 5:36 (specimen) FRAME COVERER PM FRAME COVERER Bree Oreilly MD LAB - BLOOD ORDERABLES Performing Organization Address City/[facility]/ZIP [facility] Phon e Number [facility] [address] 55[facility] [phone] [facility] [address] [phone] TSH (05/05/2015 5:30 PM FRAME COVERER) P athologist Signature TSH 1.02 0.40 - 4.00 [place] RANGE mU/L [facility] Specimen Anatomical Collection Method Collection Time Receive d Time (Source) Location / / Volume Laterality Blood specimen 05/05/2015 5:30 PM 016 5:36 (specimen) FRAME COVERER PM FRAME COVERER Bree Oreilly MD LAB - BLOOD ORDERABLES Performing Organization Address City/State/ZIP Code Phon e Number [facility] [address] [facility] [address] [address] , [facility] [phone] (ABNORMAL) Comprehensive metabolic panel (05/05/2015 5:30 PM FRAME COVERER) Patholo gist Method Time Signature Sodium 140 133 - 144 [facility] mmol/L [facility] Potassium 3.5 3.4 - 5.3 [facility] mmol/L [facility] Chloride 105 94 - 109 [facility] mmol/L [facility] Carbon Dioxide 25 20 - 32 [facility] mmol/L [facility] Anion Gap 10 3 - 14 [facility] mmol/L [facility] Glucose 113 (H) 70 - 99 [facility] mg/dL [facility] Urea Nitrogen 9 7 - 30 [facility] mg/dL [facility] Creatinine 0.66 0.52 - [facility] 1.04 [facility] mg/dL [facility]ENTER GFR Estimate >90 >60 [place] Non GFR Calc mL/min/1. [facility] 7m2 [facility] GFR Estimate If >90 >60 [place] Black GFR Calc mL/min/1. [facility] 7m2 [facility] Calcium 7.6 (L) 8.5 - [facility] 10.1 [facility] mg/dL [place] Bilirubin Total 0.5 0.2 - 1.3 [facility] mg/dL [facility] Albumin 3.4 3.4 - 5.0 [facility] g/dL [facility] Protein Total 7.2 6.8 - 8.8 [facility] g/dL [facility] Alkaline 60 40 - 150 [facility] Phosphatase U/L [facility] ALT 22 0 - 50 [facility] U/L [facility] AST 23 0 - 45 [facility] U/L [facility] Specimen Anatomical Collection Method Collection Time Receive d Time (Source) Location / / Volume Laterality Blood specimen 05/05/2015 5:30 PM 016 5:36 (specimen) FRAME COVERER PM FRAME COVERER Bree Oreilly MD LAB - BLOOD ORDERABLES Performing Organization Address City/State/ZIP Code Phon e Number M [address] [facility] [address] [address] [facility] [phone] (ABNORMAL) CBC with platelets differential (05/05/2015 5:30 PM FRAME COVERER) [facility] Method Time Signature WBC 10.0 4.0 - [facility] 11.0 [place] 10e9/L [facility] RBC Count 3.68 (L) 3.8 - 5.2 [place] 10e12/L [facility] Hemoglobin 9.6 (L) 11.7 - [facility] 15.7 g/dL [facility] Hematocrit 28.8 (L) 35.0 - [facility] 47.0 % [facility] MCV 78 78 - 100 [place] fl [facility] MCH 26.1 (L) 26.5 - [facility] 33.0 pg [facility] MCHC 33.3 31.5 - [facility] 36.5 g/dL [facility] RDW 14.0 10.0 - [place] 15.0 % [facility] Platelet Count 291 150 - 450 [place] 10e9/L [facility] Diff Method Automated [facility] % Neutrophils 93.6 % [facility] % Lymphocytes 4.3 % [facility] % Monocytes 1.7 % [facility] % Eosinophils 0.2 % [facility] % Basophils 0.1 % [facility] % Immature 0.1 % [place] Granulocytes [facility] Absolute 9.4 (H) 1.6 - 8.3 [place] Neutrophil 10e9/L [facility] Absolute 0.4 (L) 0.8 - 5.3 [facility] Lymphocytes 10e9/L [facility] Absolute 0.2 0.0 - 1.3 [facility] Monocytes 10e9/L [facility] Absolute 0.0 0.0 - 0.7 [facility] Eosinophils 10e9/L [facility] Absolute 0.0 0.0 - 0.2 [facility] Basophils 10e9/L [facility] Abs Immature 0.0 0 - 0.4 [place] Granulocytes 10e9/L [facility] Specimen Anatomical Collection Method Collection Time Receive d Time (Source) Location / / Volume Laterality Blood specimen 05/05/2015 5:30 PM 016 5:36 (specimen) FRAME COVERER PM FRAME COVERER Bree Oreilly MD LAB - BLOOD ORDERABLES Performing Organization Address City/State/ZIP Code Phon e Number [facility] [address] [facility] [id number] [place] [address] documented in this encounter Visit Diagnoses Diagnosis Tachycardia Tachycardia, unspecified documented in this encounter Administered Medications Inactive Administered Medications - up to 3 most recent administrations Medication Order MAR Action Action Date Dose Rate Site 0.9% sodium chloride BOLUS New Bag 05/05/2015 5:36 PM FRAME COVERER 1,000 mLs 1000 mL/hr Intravenous, 1,000 mL, ONCE, at 1,000 mL/hr, Administer over 1 Hours, On Fri05/05/15 at 1726, For 1 dose acetaminophen (TYLENOL) tablet 650 mg Given 05/05/2015 7:31 PM FRAME COVERER 650 mg 650 mg, Oral, ONCE, On Fri05/05/15 at 1930, For 1 dose, Maximum acetaminophen dose from all sources = 75 mg/kg/day not to exceed 4 grams/day. ketorolac (TORADOL) injection 15 mg Given 05/05/2015 5:58 PM FRAME COVERER 15 mg 15 mg, Intravenous, ONCE, On Fri05/05/15 at 1752, For 1 dose LORazepam (ATIVAN) injection 1 mg Given 05/05/2015 5:59 PM FRAME COVERER 1 mg 1 mg, Intravenous, ONCE, On Fri05/05/15 at 1752, For 1 dose documented in this encounter Active and Recently Administered Medications Times are shown in FRAME COVERER. Scheduled Medication Order 05/03/2015 05/04/2015 05/05/2015 0.9% sodium chloride BOLUS (COMPLETED) [id number] (New Bag - Provider: Calli Keller, DELLA)1848 (Stopped - Provider: Jovana Valerio RN) Intravenous, 1,000 mL, ONCE, at 1,000 mL /hr, for 1 Hours, Fri05/05/15 at 1726, For 1 dose acetaminophen [...]
--- OUTSIDE RECORDS SUMMARY | 2022-02-16 10:57 | XMS_ITS | Encounter Summary ---
:1975 Author Organization [place] Address [address] [facility] [place] [address] Care Team Providers Name Role Phone Unavailable Primary Care Provider Unavailable Encounter Details Date Type Department Care Team Description 09/13/2014 Office Visit [facility] Ladarius Mccain [facility] Mara Dugan PA-C ENCOUNTER--DISREGARD [place] [address] [facility] (Primary Dx) [facility], [address] [place] [address] [place], [place] [phone] (Wo rk) [address] [phone] Social History Tobacco Use Types Packs/Day Years [...]
--- OUTSIDE RECORDS SUMMARY | 2022-02-16 10:58 | XMS_ITS | Encounter Summary ---
:1975 Author Organization [place] Address [address] [facility] [place] [address] Care Team Providers Name Role Phone Félix Arteaga MD Primary Care Provider + Reason for Referral Consultation - Closed Specialty Diagnoses / Procedures Referred By Contact Refer red To Contact Diagnoses Low back pain Bulge of lumbar disc without myelopathy Whitney Almaguer [facility] [id number] [place] [address] [place], [place] [address] [address] [place] [address] Phone: Referral ID Status Reason Start Date Expiration Date Visits Requ ested Visits Authorized [id number] Closed 09/08/2013 03/07/2014 1 1 Reason for Visit Reason Comments Results from MRI on back, would like to come up with tx plan for back pain Encounter Details Date Type Department Care Team Description 09/08/2013 Office Visit [facility] Whitney Almaguer ba ck pain (Primary Dx); Clinic GarlandWai Elizabeth MD Bulge of lumbar disc without myelopathy [address] [facility] [id number] [place] [address] [phone] Social History Tobacco Use Types Packs/Day Years [...] in this encounter Patient Instructions Patient InstructionsWhitney Almaguer MD - 09/08/2013 3:32 PM CDT Images [...] without being too hard or toosoft. ?? [phone] [facility], [address] [place] [address], [place] [address]. All rights reserved. This information is not [...] hips and knees to get closer. ?? [place] [address]. All rights reserved. This information is not [...] push yourself to a standing position. ?? [place] [address]. All rights reserved. This information is not [...] every half hour and move around. ?? [phone] [facility], [address] [place] [address], [place] [address]. All rights reserved. This information is not [...] heel walk, unable to toe walk ASSESSMENT/PLAN: (724.2) Low back pain (primary encounter diagnosis) Comment: Discussed the implications of the major injury and need for prompt orthopedic care Plan: ORTHO COORDINATOR OF GENETIC SERVICES REFERRAL, gabapentin (NEURONTIN) 300 MG capsule (722.10) Bulge of lumbar disc without myelopathy Comment: Severe pain, ordered Neurontin to give some relief without causing drowsiness Plan: ORTHO COORDINATOR OF GENETIC SERVICES REFERRAL, gabapentin (NEURONTIN) 300 MG capsule Whitney Almaguer MD [facility] documented in this encounter Nursing Notes Stalin [...] Type Priority Associated Diagnoses Date/Ti me ORTHO COORDINATOR OF GENETIC SERVICES REFERRAL Referral Routine Low felicia k pain 09/24/2013 Bulge of lumbar disc without myelopathy documented as of this encounter Visit Diagnoses Diagnosis Low back pain - Primary Lumbago Bulge of lumbar disc without myelopathy Displacement of lumbar intervertebral di sc without myelopathy documented in this encounter Care Teams Accounts Receivable Accountant Relationship Specialty Start Date End Date Félix Arteaga MD PCP - General 06/25/05 08/29/14 [facility] [address] [place] [address] [address] documented as of this encounter
--- OUTSIDE RECORDS SUMMARY | 2022-02-16 10:58 | XMS_ITS | Encounter Summary ---
:1975 Author Organization [place] Address [address] [facility] [place] [address] Care Team Providers Name Role Phone Félix Arteaga MD Primary Care Provider + Reason for Visit Reason Onset Date Comments Panel Management 06/03/2014 Pap smear Encounter Details Date Type Department Care Team Description 06/03/2014 Telephone [facility] Félix Arteaga phil Management ([facility] [place] Redd Baxter MD smear) [address] [place], [place] [address] [address] [phone] [place], [place] [address] (Wo rk) Social History [...] Phone # not in service. Letter sent. D PATTERN SETTER Telephone Encounter - Stalin Cabezas CMA - 06/03/2014 10:35 AM CST Panel Management Review Date of last visit with a [place] provider: Whitney Almaguer on 03/01/2014. Date of next visit with a [place] provider: None. Problem List Patient Active Problem [...] Physical with pap. Type of outreach: Sent [employer] message. Questions for provider review: None Please indicate office visit, lab, MTM, or nurse appt if needed. Indicate fasting or not fasting. Stalin Cabezas CMA Chart routed to Care Team . D PATTERN SETTER documented in this encounter Plan of Treatment Not on filedocumented as of this encounter Visit Diagnoses Not on filedocumented in this encounter Care Teams Acid Splicer Relationship Specialty Start Date End Date Félix Arteaga MD PCP - General 06/25/05 08/29/14 [facility] [address] [place] [address] documented as of this encounter
--- OUTSIDE RECORDS SUMMARY | 2022-02-16 10:58 | XMS_ITS | Encounter Summary ---
:1975 Author Organization [place] Address [address] [facility] [place] [address] Care Team Providers Name Role Phone Félix Arteaga MD Primary Care Provider + Reason for Visit Reason Onset Date Comments ER F/U 08/06/2013 [facility] ER on 08/05/2013 Encounter Details Date Type Department Care Team Description 08/06/2013 Telephone [facility] Félix Arteaga E R F/U ([facility] ER on [facility] Redd Baxter MD 08/05/2013) [address] [facility] [address] [address] [phone] [place], [place] [address] (Wo rk) Social [...] set up appt to see Isis at [facility] on 08/12/13. Advised should be seen in clinic as she has had multiple ER visits. Counseled pt on using clinic or for issues do not require ER visits. Whitney Dudley, RN Telephone Encounter - Whitney Dudley, RN - 08/06/2013 10:17 AM CDT ED [...] appointment made. Last seen by Isis George Gas Line Servicer documented in this encounter Plan of Treatment Not on filedocumented as of this encounter Visit Diagnoses Not on filedocumented in this encounter Care Teams Database Report Writer Relationship Specialty Start Date End Date Félix Arteaga MD PCP - General 06/25/05 08/29/14 [facility] [address] [place] [address] documented as of this encounter
--- OUTSIDE RECORDS SUMMARY | 2022-02-16 10:58 | XMS_ITS | Encounter Summary ---
:1975 Author Organization [place] Address [address] [facility] [address] Care Team Providers Name Role Phone Félix Arteaga MD Primary Care Provider + Reason for Visit Reason Comments Pharyngitis started today, sore throat, chills, fatigue Encounter Details Date Type Department Care Team Description 12/29/2013 Office Visit [facility] Penny Logan Acute phar yngitis Clinic [place] KARAN Prather CONTINUOUS DRYOUT OPERATOR (Primary Dx) [address] [address] [phone] Social History Tobacco Use Types Packs/Day Years [...] in this encounter Progress Notes Penny Logan, LYUDMILA - 12/29/2013 3:48 PM CDT SUBJECTIVE: Alyssa [...] or do not improve. Penny Logan CNP [facility] documented in this encounter Nursing Notes Aminah Leavitt CMA - 12/29/2013 3:59 PM CDT Chief [...] kg). BP completed using cuff size: large [place] Health Maintenance reviewed. Aminah Leavitt MA documented in [...] Range Method Time Signature Specimen Throat [facility] Culture Micro No Beta [facility] Streptococcus CLINICS isolated [facility] Micro Report FINAL 12/31/2013 [facility] Status [facility] Specimen Anatomical Collection Method Collection Time Receive d Time (Source) Location / / Volume Laterality Specimen from 12/29/2013 3:45 PM 12/30/19 14 4:05 throat CDT PM CDT (specimen) Penny Logan APRN, CNP LAB - MICRO GENERAL ORDER ALICIA Performing Organization Address City/[facility]/ZIP Code Phon e Number [facility] [address] [place] [address] Strep, Rapid Screen (12/29/2013 3:45 PM CDT) Component Value Ref Test Analysis Performed At [facility] gist Range Method Time Signature Specimen Throat [facility] Rapid Strep A NEGATIVE: No Group A strepto coccal antigen detected by immunoassay, await [facility] Screen culture report. [facility] Micro Report FINAL 12/29/2013 [facility] Status [facility] Specimen Anatomical Collection Method Collection Time Receive d Time (Source) Location / / Volume Laterality Specimen from 12/29/2013 3:45 PM 12/30/19 14 3:46 throat CDT PM CDT (specimen) Penny Logan APRN CONTINUOUS DRYOUT OPERATOR LAB - MICRO GENERAL ORDER ALICIA Performing Organization Address City/[facility]/ZIP Code Phon e Number [facility] [address] [place] [address] documented in this encounter Visit Diagnoses Diagnosis Acute pharyngitis - Primary documented in this encounter Care Teams Hay Buckler Relationship Specialty Start Date End Date Félix Arteaga MD PCP - General 06/25/05 08/29/14 [facility] [address] [place] [address] documented as of this encounter
--- OUTSIDE RECORDS SUMMARY | 2022-02-16 10:58 | XMS_ITS | Encounter Summary ---
:1975 Author Organization [place] Address [address] [place] [address] Care Team Providers Name Role Phone Félix Arteaga MD Primary Care Provider + Reason for Visit Reason Comments ER F/U [facility] on 2013 Encounter Details Date Type Department Care Team Description 08/20/2013 Telephone [facility] Félix Arteaga E R F/U ([facility] on [facility] Redd Baxter MD 2013) [address] [facility] [address] [address] [phone] [place], [place] [address] (Wo rk) Social History [...] by Isis at our Clinic. Bree George Cardiac Rehabilitation Program Director documented in this encounter Plan of Treatment Not on filedocumented as of this encounter Visit Diagnoses Not on filedocumented in this encounter Care Teams Inspector Final Assembly Conveyor Line Relationship Specialty Start Date End Date Félix Arteaga MD PCP - General 06/25/05 08/29/14 [facility] [address] [place] [address] [address] documented as of this encounter
--- OUTSIDE RECORDS SUMMARY | 2022-02-16 10:58 | XMS_ITS | Encounter Summary ---
:1975 Author Organization [place] Address [address] [facility] [place] [address] Care Team Providers Name Role Phone Félix Arteaga MD Primary Care Provider + Reason for Visit Reason Comments No Show Encounter Details Date Type Department Care Team Description 03/23/2014 Office Visit [facility] Marlene Mitchell N, NO S HOW (Primary Dx) Clinic [place] JEREMY [address] [place] [address] [phone] (Wo rk) Social History Tobacco Use Types Packs/Day Years Used Date Smoking Tobacco: Never Smokeless Tobacco: Never Alcohol Use Standard Drinks/Week Comments Yes 0 (1 standard drink = 0.6 oz pure alcoho l) rare Sex Assigned at Date Recorded Not on file documented as of this encounter Progress Notes Marlene Mitchell PA-C - 03/24/2014 7:57 AM CST NO SHOW EPOINT SPECIALIST documented in this encounter Plan of Treatment Not on filedocumented as of this encounter Visit Diagnoses Diagnosis NO SHOW - Primary documented in this encounter Care Teams Seam Finisher Relationship Specialty Start Date End Date Félix Arteaga MD PCP - General 06/25/05 08/29/14 [facility] [address] [place] [address] documented as of this encounter
--- OUTSIDE RECORDS SUMMARY | 2022-02-16 10:58 | XMS_ITS | Encounter Summary ---
:1975 Author Organization [place] Address [address] [facility] [place] [address] Care Team Providers Name Role Phone Félix Arteaga MD Primary Care Provider + Reason for Visit Reason Onset Date Comments Panel Management 10/28/2013 Encounter Details Date Type Department Care Team Description 10/28/2013 Telephone [facility] Félix Arteaga phil Management Clinic [place] Redd Baxter MD [address] [place] [address] [address] [phone] [place], [place] [address] (Wo rk) Social History [...] Review Date of last visit with a [place] provider: Rosina on 09/08/13. Date of next visit with a [place] provider: None. Problem List Patient Active Problem [...] on filedocumented in this encounter Care Teams Insulation Cutter And Former Relationship Specialty Start Date End Date Félix Arteaga MD PCP - General 06/25/05 08/29/14 [facility] [address] [place] [address] documented as of this encounter
--- OUTSIDE RECORDS SUMMARY | 2022-02-16 10:58 | XMS_ITS | Encounter Summary ---
:1975 Author Organization [place] Address [address] [facility] [place] [address] Care Team Providers Name Role Phone Félix Arteaga MD Primary Care Provider + Encounter Details Date Type Department Care Team Description 09/06/2013 Therapy Visit [facility] Iva Soto, PT Acute low back pain Rehabilitation [facility] with disc symptoms, [place] [address] [place] [address] DR duration less than 6 [phone] [facility] 300 weeks (Primary Dx) [address] [place] [phone] Social History Tobacco Use Types Packs/Day Years [...] Sheet for this information) Short term and parts counterman goals: (See Goal Flow Sheet for this [...] Procedure Name Priority Date/Time Associated Diagnosis Comme [facility] Z THERAPEUTIC Routine 09/08/2013 11:47 AM Acute low back corina n ACTIVITIES CDT with disc symptoms, duration less than 6 weeks documented in this encounter Visit Diagnoses Diagnosis Acute low back pain with disc symptoms, duration less than 6 weeks - Primary documented in this encounter Care Teams Hazmat Truck Driver Relationship Specialty Start Date End Date Félix Arteaga MD PCP - General 06/25/05 08/29/14 [facility] [employer] WELLNESS [address] [place] [address] documented as of this encounter
--- OUTSIDE RECORDS SUMMARY | 2022-02-16 10:58 | XMS_ITS | Encounter Summary ---
:1975 Author Organization [place] Address [address] [facility] [place] [address] Care Team Providers Name Role Phone Félix Arteaga MD Primary Care Provider + Reason for Visit Reason Comments Abdominal Pain Encounter Details Date Type Department Care Team Description 02/27/2014 Emergency [facility] Félix Buck Abd ominal pain, other specified site (Primary Dx); [facility] Emergency Dep karoline Mukherjee MD Bloating; [address] [facility] [phone] [address] [facility] [address] [place] [address] (Wo rk) Social History [...] directed by your doctor today. Before using [id number] medications, ask your doctor and make sure [...] contain Tylenol?? (acetaminophen), including Vicodin??, Tylenol #3??, [place]??, Lortab??, and Percocet??. You should not take [...] provider's statements to me. Lorin Schmidt 02/27/2014 [facility] EMERGENCY DEPARTMENT Félix Buck MD [...] Component Value Ref Test Analysis Performed At [facility] LeukoDx Range Method Time Signature Specimen Midstream Urine [facility] LAB Special Specimen [facility] Requests received in MICROBIOLOGY preservative Culture Micro No growth [facility] MICROBIOLOGY Micro Report FINAL [facility] Status 02/28/2014 MICROBIOLOGY Specimen Anatomical Collection Method Collection Time Receive d Time (Source) Location / / Volume Laterality Urine specimen URINE SPECIMEN 02/27/2014 7:30 PM 02/27 7:41 (specimen) OBTAINED BY CLEAN CDT PM CDT CATCH PROCEDURE / Unknown Félix Buck MD LAB - MICRO GENERAL ORDERABL ES Performing Organization Address City/State/ZIP Code Phon e Number [facility] [address] [place] [address] [facility] MICROBIOLOGY (ABNORMAL) UA with Microscopic (02/27/2014 7:30 PM CDT) [facility] LeukoDx Method Time Signature Color Urine Straw [facility] Appearance Urine Clear [facility] Glucose Urine Negative NEG mg/dL [facility] Bilirubin Urine Negative NEG [facility] Ketones Urine Negative NEG mg/dL [facility] Specific [place] 1.004 1.003 - [place] Urine 1.035 [facility] Blood Urine Trace (A) NEG [facility] pH Urine 6.0 5.0 - 7.0 [place] pH [facility] Protein Albumin Negative NEG mg/dL [facility] LAB Urobilinogen Normal 0.0 - 2.0 [place] mg/dL mg/dL [facility] Nitrite Urine Negative NEG [facility] Leukocyte Negative NEG [place] Esterase Urine [facility] Source Midstream [facility] LAB WBC Urine <1 0 - 2 [facility] RBC Urine 2 0 - 2 [facility] Bacteria Urine Few (A) NEG /[facility] Squamous 6 (H) 0 - 1 [place] Epithelial /HPF /[facility] Transitional Epi <1 0 - 1 [facility] Mucous Urine Present (A) NEG /LPF [facility] Specimen Anatomical Collection Method Collection Time Receive d Time (Source) Location / / Volume Laterality Urine specimen URINE SPECIMEN 02/27/2014 7:30 PM 02/27 7:40 (specimen) OBTAINED BY CLEAN CDT PM CDT CATCH PROCEDURE / Unknown Félix Buck MD LAB - URINE ORDERABLES Performing Organization Address City/State/ZIP Code Phon e Number [place] [address] [place], [place] [address] [facility] HCG QUALitative (blood) (02/27/2014 6:29 PM CDT) Patholo gist Method Time Signature HCG Qualitative Negative NEG [facility] LAB Specimen Anatomical Collection Method Collection Time Receive d Time (Source) Location / / Volume Laterality Blood specimen 02/27/2014 6:29 PM 014 6:44 (specimen) CDT PM CDT Félix Buck MD LAB - BLOOD ORDERABLES Performing Organization Address City/[facility]/ZIP [facility] Phon e Number M [facility] [address], [place] [address] [facility] Lipase (02/27/2014 6:29 PM CDT) athologist Signature Lipase 156 73 - 393 [facility] U/L [facility]OS[facility] LAB Comment: Effective 12/01/2013, the reference range for this assay has changed to reflect new instrumentation/methodology. Specimen Anatomical Collection Method Collection Time Receive d Time (Source) Location / / Volume Laterality Blood specimen 02/27/2014 6:29 PM 014 6:44 (specimen) CDT PM CDT Félix Buck MD LAB - BLOOD ORDERABLES Performing Organization Address City/State/ZIP Code Phon e Carlos Mukherjee [facility] [address] [place], [place] [address] [facility] (ABNORMAL) Comprehensive metabolic panel (02/27/2014 6:29 PM CDT) athologist Signature Sodium 138 133 - 144 [place] mmol/L [facility] Potassium 3.4 3.4 - 5.3 [place] mmol/L [facility] Chloride 108 94 - 109 [place] mmol/L [facility] Carbon Dioxide 26 20 - 32 [place] mmol/L [facility] Anion Gap 4 3 - 14 [place] mmol/L [facility] Glucose 75 70 - 99 [place] mg/dL [facility] Comment: Effective 12/01/2013, the reference range for this assay has changed to reflect new instrumentation/methodology. Urea Nitrogen 11 7 - 30 mg/dL [facility] Comment: Effective 12/01/2013, the reference range for this assay has changed to reflect new instrumentation/methodology. Creatinine 0.66 0.52 - 1.04 mg/dL [facility] LAB GFR Estimate >90 >60 mL/min/1.7m2 [facility] IDGES Non GFR Calc HOSPITAL LAB GFR Estimate If Black >90 >60 mL/min/1.7m2 F [facility] GFR Calc HOSP ITAL LAB Calcium 8.4 (L) 8.5 - 10.1 mg/dL [facility] Comment: Effective 12/01/2013, the reference range for this assay has changed to reflect new instrumentation/methodology. Bilirubin Total 0.6 0.2 - 1.3 mg/dL [facility] Albumin 3.8 (L) 3.9 - 5.1 g/dL [facility] Protein Total 7.7 6.8 - 8.8 g/dL [facility] Alkaline Phosphatase 61 40 - 150 U/L [facility] ALT 20 0 - 50 U/L [facility] AST 24 0 - 45 U/L [facility] Specimen Anatomical Collection Method Collection Time Receive d Time (Source) Location / / Volume Laterality Blood specimen 02/27/2014 6:29 PM 014 6:44 (specimen) CDT PM CDT Félix Buck MD LAB - BLOOD ORDERABLES Performing Organization Address City/State/ZIP Code Phon e Number [place] [address] [place] [address] [facility] (ABNORMAL) CBC with platelets differential (02/27/2014 6:29 PM CDT) [facility] gist Method Time Signature WBC 7.3 4.0 - [place] 11.0 [facility] 10e9/L [facility] RBC Count 3.96 3.8 - 5.2 [place] 10e12/L [facility] Hemoglobin 9.9 (L) 11.7 - [place] 15.7 g/dL [facility] Hematocrit 32.0 (L) 35.0 - [place] 47.0 % [facility] MCV 81 78 - 100 [facility] LAB MCH 25.0 (L) 26.5 - [place] 33.0 pg [facility] MCHC 30.9 (L) 31.5 - [place] 36.5 g/dL [facility] RDW 15.8 (H) 10.0 - [place] 15.0 % [facility] Platelet Count 258 150 - 450 [place] 10e9/L [facility] Diff Method Automated [facility] % Neutrophils 64.6 % [facility] % Lymphocytes 28.1 % [facility] % Monocytes 5.5 % [facility] % Eosinophils 1.2 % [facility] % Basophils 0.3 % [facility] % Immature 0.3 % [place] Granulocytes [facility] Absolute 4.7 1.6 - 8.3 [place] Neutrophil 10e9/L [facility] Absolute 2.1 0.8 - 5.3 [place] Lymphocytes [facility] Absolute 0.4 0.0 - 1.3 [place] Monocytes [facility] Absolute 0.1 0.0 - 0.7 [place] Eosinophils 10e9/L [facility] Absolute 0.0 0.0 - 0.2 [place] Basophils 10e9/[facility] Abs Immature 0.0 0 - 0.4 [place] Granulocytes [address] [place] [address] LAB Specimen Anatomical Collection Method Collection Time Receive d Time (Source) Location / / Volume Laterality Blood specimen 02/27/2014 6:29 PM 014 6:44 (specimen) CDT PM CDT Félix Buck MD LAB - BLOOD ORDERABLES Performing Organization Address City/State/ZIP Code Phon e Number M [facility] [address] [place] [address] [facility] documented in this encounter Visit [...] 1936 (New Bag - Provider: Kathy Chacon, RN)2034 (Stopped - Provider: Kathy Chacon, DELLA) Intravenous, 1,000 mL, ONCE, at 1,000 mL /hr, Administer over 1 Hours, On 02/27/14 at 1834, For 1 dose No Frequency Medication Order 02/25/2014 02/26/2014 02/27/2014 ondansetron (ZOFRAN) 2 MG/ML injection (COMPLETED) 1935 (Given - Provider: Kathy Chacon, DELLA) Starting on 02/27/14 at 1938, For 1 dose, KATHY CHACON: cabinet override documented in this encounter Care Teams Copy Coordinator Relationship Specialty Start Date End Date Félix Arteaga MD PCP - General 06/25/05 08/29/14 [facility] [address] [place] [address] documented as of this encounter
--- OUTSIDE RECORDS SUMMARY | 2022-02-16 10:58 | XMS_ITS | Encounter Summary ---
:1975 Author Organization [place] Address [address] [facility] [place] [address] Care Team Providers Name Role Phone Félix Arteaga MD Primary Care Provider + Reason for Visit Reason Onset Date Comments ER F/U 02/28/2014 patient was seem at [facility] ER on 02/27/2014 for constipation,bloatin g 6 ER vistis Encounter Details Date Type Department Care Team Description 02/28/2014 Telephone [facility] Penny Logan ER F/U (rosario penny was [facility] [place] KARAN Prather DIGITAL SALES REPRESENTATIVE seem at [facility] ER on [address] [place] [address] 02/27/2014 for [place], [place] constip ation,bloating 6 [phone] ER vistis) [phone] Social History Tobacco Use Types Packs/Day Years [...] behalf of Dr. Arteaga s office at [facility]. I am calling to follow up and [...] ??? ER F/U patient was seem at [facility] on 02/27/2014 for constipation,bloating 6 ER vistis Ingrid English/Clinical Nurse Leader documented in this encounter Plan of Treatment Not on filedocumented as of this encounter Visit Diagnoses Not on filedocumented in this encounter Care Teams Senior Courtroom Clerk Relationship Specialty Start Date End Date Félix Arteaga MD PCP - General 06/25/05 08/29/14 [facility] WELL[facility] [address] [place] [address] documented as of this encounter
--- OUTSIDE RECORDS SUMMARY | 2022-02-16 10:58 | XMS_ITS | Encounter Summary ---
:1975 Author Organization [place] Address [address] [place] [address] Care Team Providers Name Role Phone Félix Arteaga MD Primary Care Provider + Reason for Visit Reason Onset Date Comments Lab Result Notice 02/24/2014 Encounter Details Date Type Department Care Team Description 02/24/2014 Telephone [facility] Jovana Wu nn, Lab Result Notice [facility] [address] [phone] [facility] [phone] [place] [address] (Wo rk) Social History Tobacco Use Types [...] on filedocumented in this encounter Care Teams Hard Metals Engraver Hand Relationship Specialty Start Date End Date Félix Arteaga MD PCP - General 06/25/05 08/29/14 [facility] WE[facility] [address] [place] [id number] documented as of this encounter
--- OUTSIDE RECORDS SUMMARY | 2022-02-16 10:58 | XMS_ITS | Encounter Summary ---
:1975 Author Organization [place] Address [address] [facility] [address] Care Team Providers Name Role Phone Félix Arteaga MD Primary Care Provider + Reason for Visit Reason Onset Date Comments Nurse Advice Line 08/16/2014 Encounter Details Date Type Department Care Team Description 08/16/2014 Telephone [facility] Félix Arteaga Advice Line [place] [address] [place], [place] WELLNESS [address] [address] [phone] [place], [place] [address] (Wo rk) Social History [...] on filedocumented in this encounter Care Teams Twitchell Operator Relationship Specialty Start Date End Date Félxi Arteaga MD PCP - General 06/25/05 08/29/14 [facility] [address] [place] [address] documented as of this encounter
--- OUTSIDE RECORDS SUMMARY | 2022-02-16 10:58 | XMS_ITS | Encounter Summary ---
:1975 Author Organization [place] Address [address] [facility] [place] [address] Care Team Providers Name Role Phone Félix Arteaga MD Primary Care Provider + Reason for Visit Reason Onset Date Comments Nurse Advice Line 03/23/2014 Encounter Details Date Type Department Care Team Description 03/23/2014 Telephone [facility] Félix Arteaga Advice Line [place] [address] [place], [place] [address] [address] [phone] [place], [place] [address] (Wo rk) Social History [...] for throat pain Eleonora Campo RN, BSN EY SUPERVISOR documented in this encounter Plan of Treatment Not on filedocumented as of this encounter Visit Diagnoses Not on filedocumented in this encounter Care Teams Nursing Department Chairperson Relationship Specialty Start Date End Date Félix Arteaga MD PCP - General 06/25/05 08/29/14 [facility]HET[facility] WELLNESS [address] [place] [address] documented as of this encounter
--- OUTSIDE RECORDS SUMMARY | 2022-02-16 10:58 | XMS_ITS | Encounter Summary ---
:1975 Author Organization [place] Address [address] [facility] [place] [address] Care Team Providers Name Role Phone Félix Arteaga MD Primary Care Provider + Reason for Visit Reason Onset Date Comments ER F/U 07/01/2013 ER f/u 06/30/13 Stre ptococcal Pharyngitis, Abd Pain Encounter Details Date Type Department Care Team Description 07/01/2013 Telephone [facility] Félix Arteaga E R F/U (ER f/u 06/30/13 [facility] [place] Redd Baxter MD Streptococcal [address] [facility] AESTHETIC Pharyngitis, Abd Pain) [place], [place] [address] [address] [phone] [place], [place] [address] (Wo rk) Social History [...] 3rd attempt. Encounter closed. Erica Stone RN AR INSTRUCTOR Telephone Encounter - Erica Stone RN - 07/02/2013 3:59 PM CST ED / Discharge Outreach Protocol Patient Contact Attempt # 2 Was call answered? No. Left message on voicemail with information to call me back. Erica Stone RN AR INSTRUCTOR Telephone Encounter - Erica Stone RN - 07/01/2013 3:04 PM CST Also message for son and daughter (daughter not same last name) ED / Discharge Outreach Protocol Patient Contact Attempt # 1 Was call answered? No. Left message on voicemail with information to call me back. Erica Stone RN AR INSTRUCTOR Telephone Encounter - Ilene Rivas - 07/01/2013 12:05 PM CST Please call patient for ER f/u 06/30/13 Streptococcal Pharyngitis, Abd Pain. Ilene Rivas. Equity Structurer. AR INSTRUCTOR documented in this encounter Plan of Treatment Not on filedocumented as of this encounter Visit Diagnoses Not on filedocumented in this encounter Care Teams Software Database Architect Relationship Specialty Start Date End Date Félix Arteaga MD PCP - General 06/25/05 08/29/14 [facility]HET[facility] WELLNESS [address] [place] [address] documented as of this encounter
--- OUTSIDE RECORDS SUMMARY | 2022-02-16 10:58 | XMS_ITS | Encounter Summary ---
:1975 Author Organization [place] Address [address] [place] [address] Care Team Providers Name Role Phone Félix Arteaga MD Primary Care Provider + Reason for Visit Reason Comments Abdominal Pain Encounter Details Date Type Department Care Team Description 08/05/2013 Emergency [facility] Preeti Andino Ab dominal pain, right upper quadrant (Primary Dx); [facility] Other and unspecified ovarian cyst; Dept SKIN REJUVENATION Constipation [address] [facility] [place], [place] [address] [facility] [address] [facility] [phone] [place], [place] [address] (Wo rk) Social History Tobacco Use Types [...] directed by your doctor today. Before using rrpl-uiw-funwwgh medications, ask your doctor and make sure [...] or eid tissue with menstrual bleeding ?? [phone] [place] [address]. All rights reserved. This information is not intended as a substitute for professional medical care. Always follow your healthcare professional's instructions. documented in this encounter Medications at Time of Discharge Medication Sig Dispensed Refills Start Date End Date HYDROcodone-acetaminophen Take 1-2 tablets by 15 tablet 0 0 08/05/2013 09/06/2013 (NORCO) 5-325 MG per mouth every 4 hours tablet as needed for moderate to severe pain senna-docusate Take 1-2 tablets by 20 tablet 1 08/05/2013 0 09/06/2013 (MARICARMEN-COLACE) 8.6-50 MG mouth 2 times daily per tablet as needed for constipation acetaminophen (TYLENOL) Take 1-2 tablets by 0 12/29/2013 500 MG tablet mouth every 6 hours as needed. docusate sodium 100 MG Take 100 mg by 30 tablet 0 4 09/06/2013 tablet mouth daily RLY-Xwdx-ZjSsne-MgHydr-Si Take 5-10 mLs by 237 mL 1 [...] mouth daily (with breakfast). fluticasone (FLONASE) [address] [place] 1-2 sprays 1 Package 0 05/0709/06/2013 MCG/ACT [...] Lisseth Sanchez - 08/05/2013 10:26 PM CDT DC'd IV and , cath intact. RN notified. Preeti Andino MD - 08/05/2013 [...] follow-up was reviewed. The patient was prescribed [place] and Senna-Docusate. Impression & Plan Medical Decision [...] gastric distension/constipation. We will start her on [place] for pain along with Maricarmen-Colace. She may [...] provider's statements to me. Florinda Gardner 08/05/2013 [facility] EMERGENCY DEPARTMENT Preeti Andino MD 08/05/13 1287 Flavia Cunningham RN - 08/05/2013 7:18 PM [...] pelvis. MAYRA MERCER MD Preeti Andino MD G CT ORDERABLES US Abdomen Limited (08/05/2013 9:03 [...] identified. YAHIR SMART MD Preeti Andino MD [facility] [place] ORDER[place]LES HCG qualitative urine (08/05/2013 8:20 PM CDT) P athologist Signature HCG Qual Urine Negative NEG [facility] LAB Specimen Anatomical Collection Method Collection Time Receive d Time (Source) Location / / Volume Laterality Urine specimen URINE SPECIMEN 08/05/2013 8:20 PM 08/05 8:33 (specimen) OBTAINED BY CLEAN CDT PM CDT CATCH PROCEDURE / Unknown Preeti Andino MD LAB - URINE ORDERABLES Performing Organization Address City/State/ZIP Code Phon e Number M [facility] [address] [place], [place] [address] [facility] LAB (ABNORMAL) UA with Microscopic (08/05/2013 8:20 PM CDT) Patholo gist Method Time Signature Color Urine Yellow [facility] Appearance Urine Slightly [facility] Cloudy [facility] Glucose Urine Negative NEG mg/dL [facility] Bilirubin Urine Negative NEG [facility] Ketones Urine Negative NEG mg/dL [facility] Specific [place] 1.013 1.003 - [facility] Urine 1.035 [facility] Blood Urine Trace (A) NEG [facility] pH Urine 7.5 (H) 5.0 - 7.0 [facility] pH [facility] Protein Albumin Negative NEG mg/dL [facility] Urobilinogen Normal 0.0 - 2.0 [facility] mg/dL mg/dL [facility] Nitrite Urine Negative NEG [facility] Leukocyte Moderate (A) NEG [facility] Esterase Urine [facility] Source Midstream [facility] WBC Urine 3 (H) 0 - 2 [facility] RBC Urine 1 0 - 2 [facility] /[facility] Bacteria Urine Few (A) NEG /HPF [facility] Squamous 7 (H) 0 - 1 [facility] Epithelial /HPF /HPF [facility] LAB Mucous Urine Present (A) NEG /LPF [facility] Specimen Anatomical Collection Method Collection Time Receive d Time (Source) Location / / Volume Laterality Urine specimen URINE SPECIMEN 08/05/2013 8:20 PM 08/05 8:33 (specimen) OBTAINED BY CLEAN CDT PM CDT CATCH PROCEDURE / Unknown Preeti Andino MD LAB - URINE ORDERABLES Performing Organization Address City/State/ZIP Code Phon e Number M [facility] [address] [place], [place] [address] [facility] Lipase (08/05/2013 7:40 PM CDT) athologist Signature Lipase 106 20 - 250 [facility] U/L [facility] Specimen Anatomical Collection Method Collection Time Receive d Time (Source) Location / / Volume Laterality Blood specimen 08/05/2013 7:40 PM 014 7:47 (specimen) CDT PM CDT Preeti Andino MD LAB - BLOOD ORDERABLES Performing Organization Address City/State/ZIP Code Phon e Number M [facility] [address] [place], [place] [address] HOSPITAL [facility] (ABNORMAL) Comprehensive metabolic panel (08/05/2013 7:40 PM CDT) Analysis Performed At Patho logist Time Signature Sodium 141 133 - 144 [facility] mmol/L [facility] Potassium 3.7 3.4 - 5.3 [facility] mmol/L [facility] Chloride 106 94 - 109 [facility] mmol/L [facility] Carbon Dioxide 24 20 - 32 [facility] mmol/L [facility] Anion Gap 11 6 - 17 [facility] mmol/L [facility] Glucose 82 60 - 99 [facility] mg/dL [facility] Urea Nitrogen 10 5 - 24 [facility] mg/dL [facility] Creatinine 0.60 0.52 [facility] 1[facility] mg/dL [facility] GFR Estimate >90 >60 [facility] mL/min/1.[address] [place] [address] LAB GFR Estimate If >90 >60 [facility] Black mL/min/1.[address] [place] [address] LAB Calcium 8.6 8.5 - 10.4 [facility] mg/dL [facility] Bilirubin Total 0.7 0.2 - 1.3 [facility] mg/dL [facility] Albumin 3.7 (L) 3.9 - 5.1 [facility] g/dL [facility] Protein Total 7.5 6.8 - 8.8 [facility] g/dL [facility] Alkaline 58 40 - 150 [facility] Phosphatase U/L [facility] ALT 18 0 - 50 U/L [facility] AST 30 0 - 45 U/L [facility] Specimen Anatomical Collection Method Collection Time Receive d Time (Source) Location / / Volume Laterality Blood specimen 08/05/2013 7:40 PM 014 7:47 (specimen) CDT PM CDT Preeti Andino MD LAB - BLOOD ORDERABLES Performing Organization Address City/State/ZIP Code Phon e Number M [facility] [address] [place], [place] [address] H[facility]PITAL [facility] (ABNORMAL) CBC with platelets differential (08/05/2013 7:40 PM CDT) [facility] gist Method Time Signature WBC 6.4 4.0 - [facility] 11.0 [facility] [address] LAB RBC Count 3.90 3.8 - 5.2 [facility] 10e12/L [facility] Hemoglobin 10.7 (L) 11.7 - [facility] 15.7 g/dL [facility] Hematocrit 31.9 (L) 35.0 - [facility] 47.0 % [facility] MCV 82 78 - 100 [facility] fl [facility] MCH 27.4 26.5 - [facility] 33.0 pg [facility] MCHC 33.5 31.5 - [facility] 36.5 g/dL [facility] RDW 14.8 10.0 - [facility] 15.0 % [facility] Platelet Count 233 150 - [address] LAB Diff Method Automated [facility] LAB % Neutrophils 61.8 % [facility] % Lymphocytes 30.3 % [facility] % Monocytes 6.7 % [facility] % Eosinophils 0.5 % [facility] % Basophils 0.5 % [facility] % Immature 0.2 % [facility] Granulocytes [facility] Absolute 4.0 1.6 - 8.3 [facility] Neutrophil 109/[facility] Absolute 2.0 0.8 - 5.3 [facility] Lymphocytes [address] [place] [address] LAB Absolute 0.4 0.0 - 1.3 [facility] Monocytes 109[facility] Absolute 0.0 0.0 - 0.7 [facility] Eosinophils [address] [place] [address] LAB Absolute 0.0 0.0 - 0.2 [facility] Basophils [address] [place] [address] LAB Abs Immature 0.0 0 - 0.4 [facility] Granulocytes [address] [place] [address] LAB Specimen Anatomical Collection Method Collection Time Receive d Time (Source) Location / / Volume Laterality Blood specimen 08/05/2013 7:40 PM 04/03/2 014 7:47 (specimen) CDT PM CDT Preeti Andino MD LAB - BLOOD ORDERABLES Performing Organization Address City/State/ZIP Code Phon e Number M [facility] [address] [place] [address] [facility] documented in this encounter Visit [...] - Comment: bulk) 500 mL, Intravenous, ONCE, On [place] 08/05/13 at 2145, For 1 dose ketorolac (TORADOL) injection 30 mg (COMPLETED) 1936 (Given - Provider: Flavia Cunningham, RN) 30 mg, Intravenous, ONCE, On [place] 08/05/13 at 1930, For 1 dose, Do not give within 6 hours of Ibuprofen. sodium chloride 0.9 % BOLUS 1,000 mL (COMPLETED) 1936 (New Bag - Provider: Flavia Cunningham, DELLA)2101 (Stopped - Provider: Flavia Cunningham, RN) Intravenous, 1,000 mL, ONCE, at 1,000 mL /hr, Administer over 1 Hours, On [place] 08/05/13 at 1930, For 1 dose sodium chloride 0.9 % BOLUS 1,000 mL (COMPLETED) 2148 (New Bag - Provider: Faye Tate - Comment: bulk)2149 (Stopped - Provider: Faye Tate) Intravenous, 1,000 mL, ONCE, On [place] 08/05/13 at 2145, For 1 dose Continuous Medication Order 08/03/2013 08/04/2013 08/05/2013 0.9 % sodium chloride IV solution (CANCELED) 2118 (New Bag - Provider: Flavia Cunningham, DELLA)2220 (Stopped - Provider: Flavia Cunningham, RN) at 125 mL/hr, Intravenous, CONTINUOUS, A dminister after the bolus., Starting on [place] 08/05/13 [...] sea, vomiting, Administer over 2-5 Minutes, Starting on [place] 08/05/13 at 1927, For 3 doses, May repeat in 30 minutes as needed, up to 3 doses. documented in this encounter Care Teams Skull Grinder Relationship Specialty Start Date End Date Félix Arteaga MD PCP - General 06/25/05 08/29/14 [facility] AESTHETIC WELLNESS [address] [place] [address] documented as of this encounter
--- OUTSIDE RECORDS SUMMARY | 2022-02-16 10:58 | XMS_ITS | Encounter Summary ---
:1975 Author Organization [place] Address [address] [facility] [place] [address] Support Name Relationship Address Phone Leanne Conley Unavailable [phone] [place] [address] Team Providers Name Role Phone Félix Arteaga MD Primary Care Provider + Reason for Visit Reason Comments Pharyngitis Abdominal Pain Encounter Details Date Type Department Care Team Description [facility] (Primary Dx); 08/20/2013 [facility] Emergency Abdominal pain Dept [facility] [address] [place], [place] [address] [facility] [address] [facility] [phone] [place] [address] (Wo rk) Social History Tobacco [...] directed by your doctor today. Before using tski-gxl-rsuvssx medications, ask your doctor and make sure [...] tablet mouth every 6 hours as needed. ibuprofen (ADVIL,MOTRIN) Take 3 tablets by 20 tablet 0 01/07/201212/29/2013 200 MG tablet mouth every 8 hours as needed for pain. traMADol (ULTRAM) 50 MG Take 1-2 tablets 15 tablet 0 201309/06/2013 tablet (50-100 mg) by mouth every 6 hours as needed for pain docusate sodium 100 MG Take 100 mg by 30 tablet 0 4 09/06/2013 tablet mouth daily EYP-Gnyk-NfXqhy-MgHydr-Si Take 5-10 mLs by 237 mL 1 [...] mouth daily (with breakfast). fluticasone (FLONASE) 50 [place] 1-2 sprays 1 Package 0 05/0709/06/2013 MCG/ACT nasal spray into both nostrils daily. HYDROcodone-acetaminophen Take 1-2 tablets by 15 tablet 0 0 08/05/2013 09/06/2013 (NORCO) 5-325 MG per mouth every 4 hours tablet as needed for moderate to severe pain methylprednisoLONE Follow package 21 tablet 0 06/27/2013 [...] daily per tablet as needed for constipation documented as of this encounter ED Notes [...] other concerns. Allergies: Compazine Medications: Ibuprofen Tylenol [place] Colace Tramadol Medrol Dosepack Veetid Lo/Ovral Flonase [...] 3. Possible symptomatic constipation Vidal Gutierrez 2013 [facility] EMERGENCY [facility]PART[facility] I, Vidal Gutierrez, am [...] UA with microscopic (2013 11:15 PM CDT) [facility] Method Time Signature Color Urine Yellow [facility] Appearance Urine Clear [facility] Glucose Urine Negative NEG mg/dL [facility] Bilirubin Urine Negative NEG [facility] Ketones Urine Negative NEG mg/dL [facility] Specific [place] 1.012 1.003 - [place] Urine 1.035 [facility] Blood Urine Negative NEG [facility] pH Urine 6.5 5.0 - 7.0 [place] pH [facility] Protein Albumin Negative NEG mg/dL [facility] LAB Urobilinogen 2.0 0.0 - 2.0 [place] mg/dL mg/dL [facility] Nitrite Urine Negative NEG [facility] Leukocyte Negative NEG [place] Esterase Urine [facility] Source Midstream [place] Urine [facility] WBC Urine 2 0 - 2 [facility] RBC Urine 1 0 - 2 [facility] Bacteria Urine Few (A) NEG /HPF [facility] Squamous 6 (H) 0 - 1 [place] Epithelial /HPF [facility] Transitional Epi <1 0 - 1 [facility] Mucous Urine Present (A) NEG /LPF [facility] Specimen Anatomical Collection Method Collection Time Receive d Time (Source) Location / / Volume Laterality Urine specimen URINE SPECIMEN 2013 11:15 014 (specimen) OBTAINED BY CLEAN PM CDT 11:30 PM C DT CATCH PROCEDURE / Unknown Hernandez Rodriguez MD LAB - URINE ORDERABLES Performing Organization Address City/[facility]/ZIP Code Phon e Number [address] [facility] Beta strep group A culture (2013 10:35 PM CDT) Component Value Ref Test Analysis Performed At Patholo gist Range Method Time Signature Specimen Throat [facility] LAB Culture Micro No Beta [facility] Streptococcus MICROBIOLOGY isolated Micro Report FINAL 08/22/2013 [facility] Status MICROBIOLOGY Specimen Anatomical Collection Method Collection Time Receive d Time (Source) Location / / Volume Laterality 2013 10:35 2013 PM CDT 11:05 PM CDT Hernandez Rodriguez MD LAB - MICRO GENERAL ORDERABL ES Performing Organization Address City/State/ZIP Code Phon e Number [address] [address] [facility] MICROBIOLOGY Rapid strep screen (2013 10:35 PM CDT) Component Value Ref Test Analysis Performed At Patholo gist Range Method Time Signature Specimen Throat [facility] LAB Rapid Strep A NEGATIVE: No Group A strepto coccal antigen detected by immunoassay, await [place] Screen culture report. [facility] Micro Report FINAL 2013 [facility] LAB Specimen Anatomical Collection Method Collection Time Receive d Time (Source) Location / / Volume Laterality Specimen from 2013 10:35 2013 throat PM CDT 10:48 PM CDT (specimen) Vidal Ochoa MD LAB - MICRO GENERAL ORDERABL ES Performing Organization Address City/State/ZIP Code Phon e Number M [facility] [address] [place], [place] [address] [facility] documented in this encounter Visit [...] 50 mg 50 mg, Oral, ONCE, On Fri08/20/13 at 0000, For 1 dose documented in this encounter Active and Recently Administered Medications Times are shown in CDT. Scheduled Medication Order 08/18/2013 2013 08/20/2013 dexamethasone (DECADRON) tablet 10 mg (COMPLETED) 9816 (Given - Provider: Lashae Wu RN) 10 mg, Oral, ONCE, On Fri08/20/13 at 0000, For 1 dose ibuprofen (ADVIL,MOTRIN) tablet 800 mg (COMPLETED) 2308 (Given - Provider: Lashae Wu RN) 800 mg, Oral, ONCE, On [place] 08/19/13 at 2300, For 1 dose traMADol (ULTRAM) tablet 50 mg (COMPLETED) 2356 (Given - Provider: Lashae Wu RN) 50 mg, Oral, ONCE, On Fri08/20/13 at 0000, For 1 dose documented in this encounter Care Teams Siebel Administrator Relationship Specialty Start Date End Date Félix Arteaga MD PCP - General 06/25/05 08/29/14 [facility] WELL[facility] [address] [place] [address] documented as of this encounter
--- OUTSIDE RECORDS SUMMARY | 2022-02-16 10:58 | XMS_ITS | Encounter Summary ---
:1975 Author Organization [place] Address [address] [facility] [place] [address] Care Team Providers Name Role Phone Unavailable Primary Care Provider Unavailable Reason for Visit Reason Comments Gastrointestinal Problem Abdominal bloating over the last year or so Blood Draw requesting iron testing Encounter Details Date Type Department Care Team Description 08/31/2014 Office Visit [facility] Ladarius Mccain Abdomi nal pain, generalized (Primary Dx); Clinic [place] JEREMY Dugan Flatulence, eructation, and gas pain; [place] [address] [facility] Adjustment disorder with depressed mood [facility], [address] [place] [address] [place], [place] [phone] (Wo rk) [address] [phone] Social History Tobacco Use Types Packs/Day Years [...] 148 lb (67.132 kg) Labs reviewed in [facility] Problem list, Medication list, Allergies, and Medical/Social/Surgical histories reviewed in [facility] andupdated as appropriate. ROS: Constitutional, HEENT, [...] check, sooner if needed. Ladarius Mccain PA-C [facility] Physical Exam documented in this encounter Nursing [...] Value Ref Test Analysis Performed At [facility] gist Range Method Time Signature Specimen Whole Blood [facility] Description [facility] Miki No detectable IgG antibody t o Helicobacter pylori. If current infection is [facility] pylori Antibody suspected, please submit a new specimen in 4 to 6 we eks. CLINICS [facility] Micro Report FINAL [facility] Status 08/31/2014 [facility] Specimen Anatomical Collection Method Collection Time Receive d Time (Source) Location / / Volume Laterality Blood specimen 08/31/2014 10:09 5 (specimen) AM CDT 10:10 AM CDT Ladarius Mccain PA-C LAB - BLOOD ORDERABLES Performing Organization Address City/State/ZIP Code Phon e Number [place] [address] Lipase (08/31/2014 10:08 AM CDT) P athologist Signature Lipase 190 73 - 393 [facility] Specimen Anatomical Collection Method Collection Time Receive d Time (Source) Location / / Volume Laterality Blood specimen 08/31/2014 10:08 5 (specimen) AM CDT 10:09 AM CDT Ladarius Mccain PA-C LAB - BLOOD ORDERABLES Performing Organization Address City/[facility]/ZIP Code Phon e Number [facility] [address] [place] [address] [facility] Hepatitis C antibody (08/31/2014 10:08 AM CDT) Component Value Ref Test Analysis Performed At [facility] gist Range Method Time Signature Hepatitis C Nonreactive NR [facility] Antibody Assay performance character istics have not been established for [facility], [place] MEDICAL infants, and children [facility] Specimen Anatomical Collection Method Collection Time Receive d Time (Source) Location / / Volume Laterality Blood specimen 08/31/2014 10:08 5 (specimen) AM CDT 10:09 AM CDT Ladarius Mccain PA-C LAB - BLOOD ORDERABLES Performing Organization Address City/State/ZIP Code Phon e Number [facility] [address] [place] [address] [place] (ABNORMAL) Comprehensive metabolic panel (08/31/2014 10:08 AM CDT) [facility] gist Method Time Signature Sodium 139 133 - 144 [facility] mmol/L [facility] Potassium 4.0 3.4 - 5.3 [facility] mmol/L [facility] Chloride 107 94 - 109 [facility] mmol/L [facility] Carbon Dioxide 25 20 - 32 [facility] mmol/L [facility] Anion Gap 7 3 - 14 [place] mmol/L [facility] Glucose 59 (L) 70 - 99 [place] mg/dL [facility] Urea Nitrogen 10 7 - 30 [place] mg/dL [facility] Creatinine 0.66 0.52 - [place] 1.04 [facility] mg/dL [facility] GFR Estimate >90 >60 [place] Non GFR Calc mL/min/1. CLINICS 7m2 [facility] GFR Estimate If >90 >60 [place] Black GFR Calc mL/min/1. CLIN ICS 7m2 [facility] Calcium 9.0 8.5 - [place] 10.1 [facility] mg/dL [facility] Bilirubin Total 0.9 0.2 - 1.3 [place] mg/dL [facility] Albumin 3.9 3.4 - 5.0 [place] g/dL [facility] Protein Total 8.2 6.8 - 8.8 [place] g/dL [facility] Alkaline 52 40 - 150 [place] Phosphatase U/L [facility] ALT 17 0 - 50 [place] U/L [facility] AST 21 0 - 45 [place] U/L [facility] Specimen Anatomical Collection Method Collection Time Receive d Time (Source) Location / / Volume Laterality Blood specimen 08/31/2014 10:08 5 (specimen) AM CDT 10:09 AM CDT Ladarius Mccain PA-C LAB - BLOOD ORDERABLES Performing Organization Address City/State/ZIP Code Phon e Number [facility] [address] [place] [address] (ABNORMAL) CBC with platelets (08/31/2014 10:08 AM CDT) [facility] Method Time Signature WBC 6.1 4.0 - 11.0 [place] 10e9/L [facility] RBC Count 4.31 3.8 - 5.2 [place] 10e12/L [facility] Hemoglobin 11.1 (L) 11.7 - [place] 15.7 g/dL [facility] Hematocrit 35.0 35.0 - [place] 47.0 % [facility] MCV 81 78 - 100 [facility] MCH 25.8 (L) 26.5 - [place] 33.0 pg [facility] MCHC 31.7 31.5 - [place] 36.5 g/dL [facility] RDW 15.3 (H) 10.0 - [place] 15.0 % [facility] Platelet Count 301 150 - 450 [place] 10e9/L [facility] Specimen Anatomical Collection Method Collection Time Receive d Time (Source) Location / / Volume Laterality Blood specimen 08/31/2014 10:08 5 (specimen) AM CDT 10:09 AM CDT Ladarius Mccain PA-C LAB - BLOOD ORDERABLES Performing Organization Address City/State/ZIP Code Phon e Number [place] [address] documented in this encounter Visit Diagnoses Diagnosis Abdominal pain, generalized - Primary Flatulence, eructation, and gas pain Adjustment disorder with depressed mood documented in this encounter
--- OUTSIDE RECORDS SUMMARY | 2022-02-16 10:58 | XMS_ITS | Encounter Summary ---
:1975 Author Organization [place] Address [address] [facility] [place] [address] Care Team Providers Name Role Phone Félix Arteaga MD Primary Care Provider + Reason for Visit Reason Onset Date Comments Physical Therapy 09/13/2013 Patient care team ca ll by Janeth Gautam Encounter Details Date Type Department Care Team Description 09/13/2013 Telephone [facility] Julia Gautam sical Therapy Rehabilitation Services A, ATC (Pat ient care team [place] call by Janeth Gautam [address] [place] [address] ) [address] [place] [address] Social History Tobacco Use Types [...] on filedocumented in this encounter Care Teams Intelligence Director Relationship Specialty Start Date End Date Félix Arteaga MD PCP - General 06/25/05 08/29/14 [facility] [address] [place], [place] [address] documented as of this encounter
--- OUTSIDE RECORDS SUMMARY | 2022-02-16 10:58 | XMS_ITS | Encounter Summary ---
:1975 Author Organization [place] Address [address] [facility] [place] [address] Care Team Providers Name Role Phone Félix Arteaga MD Primary Care Provider + Reason for Visit Reason Comments Nausea Encounter Details Date Type Department Care Team Description 02/23/2014 Office Visit [facility] Jovana Wu Breast te nderness (Primary Dx); Clinic [place] KARAN Adler HISTOLOGY ASSISTANT Fatigue; [address] [facility] [address] Flatulence, eructation, and gas pain; [place], [place] [address] Nausea; [address] [place], [place] Abdominal pain, epigastric [phone] [address] Social History Tobacco Use Types Packs/Day [...] documented in this encounter Patient Instructions Patient Jovana Bazzi NP - 02/23/2014 11:36 AM CDT Images [...] Your doctor can tell you more. ?? [id number] Tonie Naik, [address] [place] [address], [place] [address]. All rights reserved. This information is not [...] ?? Rapid heart rate ?? Seizure ?? [id number] [place] [address]. All rights reserved. This information is not [...] 02/03 and lasted 3-4 days-maybe a little credit report checker than normal. Took HPT 2 days ago [...] 11.2 oz (66.089 kg) Labs reviewed in [facility] ROS: Constitutional, neuro, ENT, endocrine, pulmonary, cardiac, [...] NEG Ketones Urine Negative NEG mg/dL Specific [place] Urine 1.015 1.003 - 1.035 Blood Urine [...] concerns See Patient Instructions Jovana Wu NP [facility] MS SERVICE ADJUSTOR documented in this encounter Nursing Notes Tuan Meraz CMA - 02/23/2014 10:55 AM CDT Chief Complaint [...] (66.679 kg). BP completed using cuff size: svetlana Meraz CMA documented in this encounter Plan [...] Patholo gist Method Time Signature Specimen [facility] Wet Prep No clue cells seen [place] No yeast seen [facility] No Trichomonas seen [place] Micro Report FINAL [place] Status 02/23/2014 [facility] Specimen Anatomical Collection Method Collection Time Receive d Time (Source) Location / / Volume Laterality 02/23/2014 11:56 02/23/2014 AM CDT 11:58 AM CDT Jovana Wu DIRECTOR SALES HISTOLOGY ASSISTANT LAB - MICRO GENERAL ORDERAB LES Performing Organization Address City/State/ZIP Code Phon e Number [facility] [address] [place] [address] TSH with free T4 reflex (02/23/2014 11:52 AM CDT) P athologist Signature TSH 1.69 0.40 - 4.00 [facility] mU/L [place] Comment: Effective 12/01/2013, the reference range for this assay has changed to reflect new instrumentation/methodology. Specimen Anatomical Collection Method Collection Time Receive d Time (Source) Location / / Volume Laterality Blood specimen 02/23/2014 11:52 4 (specimen) AM CDT 11:57 AM CDT Jovana Wu APRN HISTOLOGY ASSISTANT LAB - BLOOD ORDERABLES Performing Organization Address City/State/ZIP Code Phon e Number [facility] [address] [place] [address] [facility] [address] [place], [place] [address] (ABNORMAL) CBC with platelets differential (02/23/2014 11:52 AM CDT) [facility] Method Time Signature WBC 6.6 4.0 - [place] 11.0 [facility] 10e9/L [place] RBC Count 3.91 3.8 - 5.2 [place] 10e12/L [facility] Hemoglobin 9.9 (L) 11.7 - [place] 15.7 g/dL [facility] Hematocrit 32.3 (L) 35.0 - [place] 47.0 % [facility] MCV 83 78 - 100 [facility] MCH 25.3 (L) 26.5 - [place] 33.0 pg [facility] MCHC 30.7 (L) 31.5 - [place] 36.5 g/dL [facility] RDW 15.5 (H) 10.0 - [place] 15.0 % [facility] Platelet Count 257 150 - 450 [place] 10e9/L [facility] Diff Method Automated [facility] % Neutrophils 65.1 % [facility] % Lymphocytes 25.5 % [facility] % Monocytes 8.3 % [facility] % Eosinophils 0.6 % [facility] % Basophils 0.5 % [facility] Absolute 4.3 1.6 - 8.3 [place] Neutrophil 10e9/L [facility] Absolute 1.7 0.8 - 5.3 [place] Lymphocytes 10e9/L [facility] Absolute 0.6 0.0 - 1.3 [place] Monocytes 10e9/L [facility] Absolute 0.0 0.0 - 0.7 [place] Eosinophils 10e9/L [facility] Absolute 0.0 0.0 - 0.2 [place] Basophils 10e9/L [facility] Specimen Anatomical Collection Method Collection Time Receive d Time (Source) Location / / Volume Laterality Blood specimen 02/23/2014 11:52 4 (specimen) AM CDT 11:57 AM CDT Jovana Wu APRN, CNP LAB - BLOOD ORDERABLES Performing Organization Address City/[facility]/ZIP Code Phon e Number [facility] [id number] [place] [address] Urine Microscopic (02/23/2014 11:14 AM CDT) P athologist Signature WBC Urine O - 2 0 - 2 /HPF [facility] RBC Urine O - 2 0 - 2 /HPF [facility] Specimen Anatomical Collection Method Collection Time Receive d Time (Source) Location / / Volume Laterality 02/23/2014 11:14 02/23/2014 AM CDT 11:15 AM CDT Jovana Wu APRN, CNP LAB - URINE ORDERABLES Performing Organization Address City/[facility]/ZIP Code Phon e Number [facility] [address] [place] [address] Beta HCG qual IFA urine (02/23/2014 11:14 AM CDT) P athologist Signature Beta HCG Qual Negative NEG [place] IFA Urine [facility] Specimen Anatomical Collection Method Collection Time Receive d Time (Source) Location / / Volume Laterality Urine specimen 02/23/2014 11:14 4 (specimen) AM CDT 11:15 AM CDT Jovana Wu APRN, CNP LAB - URINE ORDERABLES Performing Organization Address City/[facility]/ZIP Code Phon e Number [facility] [address] [place] [address] (ABNORMAL) *UA reflex to Microscopic and Culture (02/23/2014 11:14 AM CDT) Patholo gist Method Time Signature Color Urine Yellow [facility] Appearance Urine Clear [facility] Glucose Urine Negative NEG mg/dL [facility] Bilirubin Urine Negative NEG [facility] Ketones Urine Negative NEG mg/dL [facility] Specific [place] 1.015 1.003 - [place] Urine 1.035 [facility] Blood Urine Trace (A) NEG [facility] pH Urine 6.5 5.0 - 7.0 [place] pH [facility] Protein Albumin Negative NEG mg/dL [place] Urine [facility] Urobilinogen 0.2 0.2 - 1.0 [place] Urine EU/dL [facility] Nitrite Urine Negative NEG [facility] Leukocyte Small (A) NEG [place] Esterase Urine [facility] Source Midstream [place] Urine [facility] Specimen Anatomical Collection Method Collection Time Receive d Time (Source) Location / / Volume Laterality Urine specimen 02/23/2014 11:14 4 (specimen) AM CDT 11:15 AM CDT Jovana Wu APRN HISTOLOGY ASSISTANT LAB - URINE ORDERABLES Performing Organization Address City/State/ZIP Code Phon e Number [facility] [address] [place], [place] [id number] documented in this encounter Visit Diagnoses Diagnosis Breast tenderness - Primary Mastodynia Fatigue Other malaise and fatigue Flatulence, eructation, and gas pain Nausea Nausea alone Abdominal pain, epigastric documented in this encounter Care Teams Natural Resources Extension Educator Relationship Specialty Start Date End Date Félix Arteaga MD PCP - General 06/25/05 08/29/14 [facility] [address] [place] [address] documented as of this encounter
--- OUTSIDE RECORDS SUMMARY | 2022-02-16 10:58 | XMS_ITS | Encounter Summary ---
:1975 Author Organization [place] Address [address] [facility] [place] [address] Care Team Providers Name Role Phone Félix Arteaga MD Primary Care Provider + Encounter Details Date Type Department Care Team Description 09/07/2013 External Order [facility] Whitney Almaguer Results Clinic [place] MD Clara [address] [place] [id number] [phone] Social History Tobacco Use Types Packs/Day Years [...] an attachment that is no t available. Whitney Almaguer MD IMG MRI ORDERABLES documented in this encounter Visit Diagnoses Not on filedocumented in this encounter Care Teams Mineral Ore Processing Labourer Relationship Specialty Start Date End Date Félix Arteaga MD PCP - General 06/25/05 08/29/14 [facility] [address] [place] [address] documented as of this encounter
--- OUTSIDE RECORDS SUMMARY | 2022-02-16 10:58 | XMS_ITS | Encounter Summary ---
:1975 Author Organization [place] Address [address] [facility] [place] [address] Care Team Providers Name Role Phone Félix Arteaga MD Primary Care Provider + Encounter Details Date Type Department Care Team Description 08/12/2013 Office Visit [facility] Eliza Badillo NO SHOW (Primary Dx) Clinic [place] JEREMY Mooney [address] [place] [address] [facility] [address] [place] [address] Social History Tobacco Use Types Packs/Day [...] Primary documented in this encounter Care Teams Sheet Metal Mechanic Relationship Specialty Start Date End Date Félix Arteaga MD PCP - General 06/25/05 08/29/[facility] [address] [place] [address] documented as of this encounter
--- OUTSIDE RECORDS SUMMARY | 2022-02-16 10:58 | XMS_ITS | Encounter Summary ---
:1975 Author Organization [place] Address [address] [place] [address] Care Team Providers Name Role Phone Félix Arteaga MD Primary Care Provider + Reason for Visit Reason Comments Pharyngitis Abnormal Bleeding Problem Encounter Details Date Type Department Care Team Description 06/14/2014 Office Visit [facility] Dirk Arias Throat pa in (Primary Dx); Clinic Mara [place] MD Anemia [address] [address] [facility], [address] [place] [address] [place], [place] [phone] (Wo rk) [address] [phone] Social History Tobacco Use Types Packs/Day Years Used Date Smoking Tobacco: Never Smokeless Tobacco: Never Alcohol Use Standard Drinks/Week Comments Yes 0 (1 standard drink = 0.6 oz pure alcoho l) rare Sex Assigned at Date Recorded Not on file documented as of this encounter Last Filed Vital Signs Vital Sign Reading Time Taken Comments Blood Pressure 102/72 06/14/2014 1:57 PM PECAN MALLOW DIPPER Pulse 80 06/14/2014 1:57 PM PECAN MALLOW DIPPER Temperature 37.1 ??C (98.8 ??F) 06/14/2014 1:57 PM PECAN MALLOW DIPPER Respiratory Rate - - Oxygen Saturation 100% 06/14/2014 1:57 PM PECAN MALLOW DIPPER Inhaled Oxygen Concentration - - Weight 69.9 kg (154 lb) 06/14/2014 1:57 PM PECAN MALLOW DIPPER Height - - Body Mass Index 26.43 [...] platelets RTC in 1m Dirk Arias MD N MALLOW DIPPER documented in this encounter Nursing Notes Olga [...] (69.854 kg). BP completed using cuff size: regular Olga Mariee CMA N MALLOW DIPPER documented in this encounter Plan of Treatment Not on filedocumented as of this encounter Procedures Procedure Name Priority Date/Time Associated Diagnosis Comme nts RAPID STREP SCREEN Routine 06/14/2014 2:27 PM Throat Pain Res ults for this THROAT SWAB [employer]ECAN [employer]OW DIPPER procedure are i n the results section. BETA HEMOLYTIC Routine 06/14/2014 2:27 PM Throat Pain Results for this STREP GROUP A [employer] [employer] procedure are in CULTURE the results section. INFLUENZA A/B Routine 06/14/2014 2:26 PM Throat Pain Results for this ANTIGEN [employer]ECAN [employer]ALLOW DIPPER procedure are i n the results section. CBC WITH PLATELETS Routine 06/14/2014 2:20 PM Anemia Res ults for this PECAN MALLOW DIPPER procedure are i n the results section. documented in this encounter Results Beta strep group A culture (06/14/2014 2:27 PM PECAN MALLOW DIPPER) Component Value Ref Test Analysis Performed At [facility] Range Method Time Signature Specimen Throat [place] Description [facility] [place] Culture Micro No Beta [place] Streptococcus CLINICS isolated [place] Micro Report FINAL 06/16/2014 [place] Status [facility] [place] Specimen Anatomical Collection Method Collection Time Receive d Time (Source) Location / / Volume Laterality Specimen from 06/14/2014 2:27 PM 06/14/19 15 2:28 throat PECAN MALLOW DIPPER PM [facility] [employer]OW [employer]IP[facility] (specimen) Dirk Arias MD LAB - MICRO GENERAL ORDERABL ES Performing Organization Address City/[facility] Code Phon e Number [facility] [place] [address] Strep, Rapid Screen (06/14/2014 2:27 PM PECAN MALLOW DIPPER) Component Value Ref Test Analysis Performed At [facility] Range Method Time Signature Specimen Throat [place] Description [facility] Rapid Strep A NEGATIVE: No Group A strepto coccal antigen detected by immunoassay, await [facility] Screen culture report. [facility] Micro Report FINAL 06/14/2014 [facility] Status [facility] Specimen Anatomical Collection Method Collection Time Receive d Time (Source) Location / / Volume Laterality Specimen from 06/14/2014 2:27 PM 06/14/19 15 2:28 throat PECAN MALLOW DIPPER PM [facility]OW [employer]IP[facility] (specimen) Dirk Arias MD LAB - MICRO GENERAL ORDERABL ES Performing Organization Address [facility] Phon e Number [facility] [id number] [place] [phone] Influenza A/B antigen (06/14/2014 2:26 PM PECAN MALLOW DIPPER) [facility] Method Time [facility] Influenza A/B Nasal [facility] Agn Specimen [facility] [place] Influenza A Negative NEG [facility] Test results must be correlated with clinical data. If ne cessary, results CLINICS should be confirmed by a molecular assay or viral culture. [place] Influenza B Negative NEG [facility] Test results must be correlated with clinical data. If ne cessary, results CLINICS should be confirmed by a molecular assay or viral culture. [place] Specimen Anatomical Collection Method Collection Time Receive d Time (Source) Location / / Volume Laterality Swab from nasal 06/14/2014 2:26 PM 2014 2:27 sinus (specimen) PECAN MALLOW DIPPER PM PECAN MALLOW DIPPER Dirk Arias MD LAB - MICRO GENERAL ORDERABL ES Performing Organization Address [facility] Phon e Number [facility] [place] [address] (ABNORMAL) CBC with platelets (06/14/2014 2:20 PM PECAN MALLOW DIPPER) athologist Signature WBC 7.7 4.0 - 11.0 [place] 10e9/L [facility] RBC Count 3.82 3.8 - 5.2 [place] 10e12/L [facility] Hemoglobin 9.7 (L) 11.7 - 15.7 [place] g/dL [facility] Comment: Reviewed: OK with previous Hematocrit 30.9 (L) 35.0 - 47.0 % [facility] MCV 81 78 - 100 fl [facility] MCH 25.4 (L) 26.5 - 33.0 pg [facility] MCHC 31.4 (L) 31.5 - 36.5 g/dL [place] CLIN ICS [place] RDW 14.3 10.0 - 15.0 % [facility] Platelet Count 288 150 - 450 10e9/L [facility] Specimen Anatomical Collection Method Collection Time Receive d Time (Source) Location / / Volume Laterality Blood specimen 06/14/2014 2:20 PM 015 2:21 (specimen) PECAN MALLOW DIPPER PM PEC[facility] MALLOW DIPPER Dirk Arias MD LAB - BLOOD ORDERABLES Performing Organization Address City/State/ZIP Code Phon e Number [facility] [address] [place] [address] documented in this encounter Visit Diagnoses Diagnosis Throat pain - Primary Anemia Anemia, unspecified documented in this encounter Care Teams Import And Export Clerk Relationship Specialty Start Date End Date Félix Arteaga MD PCP - General 06/25/05 08/29/14 [facility] [address] [place] [address] documented as of this encounter
--- OUTSIDE RECORDS SUMMARY | 2022-02-16 10:58 | XMS_ITS | Encounter Summary ---
:1975 Author Organization [place] Address [address] [facility] [place] [address] Care Team Providers Name Role Phone Félix Arteaga MD Primary Care Provider + Reason for Visit Reason Comments Hospital F/U Encounter Details Date Type Department Care Team Description 03/01/2014 Office Visit [facility] Whitney Nicole UTI (u rinary tract infection) (Primary Dx); [place] [address] [id number] [phone] Social History Tobacco Use Types Packs/Day Years [...] documented in this encounter Patient Instructions Patient InstructionsFasWhitney lawrence, MD - 03/01/2014 4:33 PM CDT Images [...] necessary, additional treatment may be started. ?? [phone] [employer]. [address] [place] [address]. All rights reserved. This information is not intended as a substitute for professional medical care. Always follow your healthcare professional's instructions. documented in this encounter Progress Notes Whitney Nicole MD - 03/01/2014 3:31 PM CDT SUBJECTIVE: Alyssa Aguillon is a 38 year old female who presents to clinic today for the following health issues: ED/UC Followup: Facility: [facility] Date of visit: 02/27/14 Reason for visit: [...] list, Allergies, and Medical/Social/Surgical histories reviewed in [facility] andupdated as appropriate. ROS: C: NEGATIVE for [...] can order an US Whitney Nicole MD [facility] documented in this encounter Nursing Notes Valerie Garrett, AUTOMOTIVE ARTIST - 03/01/2014 3:42 PM CDT No chief [...] athologist Signature Beta HCG Qual Negative NEG [facility] Urine [facility] Specimen Anatomical Collection Method Collection Time Receive d Time (Source) Location / / Volume Laterality Urine specimen 03/01/2014 3:57 PM 014 3:58 (specimen) CDT PM CDT Whitney Nicole MD LAB - URINE ORDERABLES Performing Organization Address City/State/ZIP Code Phon e Number [facility] [address] [place], [place] [phone] documented in this encounter Visit Diagnoses Diagnosis UTI (urinary tract infection) - Primary Urinary tract infection, site not specif ied Nausea Nausea alone documented in this encounter Care Teams Masonry Installer Relationship Specialty Start Date End Date Félix Arteaga MD PCP - General 06/25/05 08/29/14 [facility] [address] [place] [id number] documented as of this encounter
--- OUTSIDE RECORDS SUMMARY | 2022-02-16 10:58 | XMS_ITS | Encounter Summary ---
:1975 Author Organization [place] Address [address] [facility] [place] [address] Care Team Providers Name Role Phone Félix Arteaga MD Primary Care Provider + Reason for Referral [facility] Physical Therapy - Closed Specialty Diagnoses / Procedures Referred By Contact Refer red To Contact Diagnoses LBP (low back pain) Eliza Bdaillo, [facility] PA-C [facility] [address] [place], [place] [address]N [facility] [address] [place] [address] [place] [address] Phone: [phone] Referral ID Status Reason Start Date Expiration Date Visits Requ ested Visits Authorized [id number] Closed 09/06/2013 03/05/2014 1 1 Reason for Visit Reason Comments Back Pain Encounter Details Date Type Department Care Team Description 09/06/2013 Office Visit [facility] Eliza Badillo Dysuria (Primary Dx); [facility] [place] JEREMY Mooney LBP (low back pain); [address] [place] [address] Microscopic hematuria [address] [address] [facility] [address] [place] [phone] Social History Tobacco Use Types [...] 141 lb (63.957 kg) Labs reviewed in [facility] Problem list, Medication list, Allergies, and Medical/Social/Surgical histories reviewed in [facility] andupdated as appropriate. Review Of Systems Skin: [...] (ABNORMAL) Urine Microscopic (09/06/2013 2:06 PM CDT) [place] Method Time Signature WBC Urine O - 2 0 - 2 [place] /HPF [facility] RBC Urine 2-5 (A) 0 - 2 [place] /HPF [facility] Squamous Moderate (A) FEW /LPF [place] Epithelial [facility] [place] /LP Urine [place] Bacteria Urine Few (A) NEG /HPF [facility] Specimen Anatomical Collection Method Collection Time Receive d Time (Source) Location / / Volume Laterality 09/06/2013 2:06 PM 4 2:09 CDT PM CDT Eliza Badillo PA-C LAB - URINE ORDERABLES Performing Organization Address City/State/ZIP Code Phon e Number [facility] [address] [place], [place] [phone] (ABNORMAL) *UA reflex to Microscopic and Culture (09/06/2013 2:06 PM CDT) [place] Method Time Signature Color Urine Yellow [facility] Appearance Urine Clear [facility] Glucose Urine Negative NEG mg/dL [facility] Bilirubin Urine Negative NEG [facility] Ketones Urine Negative NEG mg/dL [facility] Specific [place] 1.010 1.003 - [place] Urine 1.035 [facility] Blood Urine Moderate (A) NEG [facility] pH Urine 5.5 5.0 - 7.0 [place] pH [facility] Protein Albumin Negative NEG mg/dL [place] Urine [facility] Urobilinogen 0.2 0.2 - 1.0 [place] Urine EU/dL [facility] Nitrite Urine Negative NEG [facility] Leukocyte Negative NEG [place] Esterase Urine [facility] Source Midstream [place] Urine [facility] Specimen Anatomical Collection Method Collection Time Receive d Time (Source) Location / / Volume Laterality Urine specimen 09/06/2013 2:06 PM 014 2:09 (specimen) CDT PM CDT Eliza Badillo PA-C LAB - URINE ORDERABLES Performing Organization Address City/State/ZIP Code Phon e Number [facility] [address] [place] [address] documented in this encounter Visit Diagnoses Diagnosis Dysuria - Primary LBP (low back pain) Lumbago Microscopic hematuria documented in this encounter Care Teams Waffle Machine Operator Relationship Specialty Start Date End Date Félix Arteaga MD PCP - General 06/25/05 08/29/14 [facility] [address] [place] [address] documented as of this encounter
--- OUTSIDE RECORDS SUMMARY | 2022-02-16 10:59 | XMS_ITS | Encounter Summary ---
:1975 Author Organization [place] Address [address] [facility] [place] [address] Care Team Providers Name Role Phone éFlix Arteaga MD Primary Care Provider + Reason for Visit Reason Comments RECHECK Encounter Details Date Type Department Care Team Description 06/25/2013 Office Visit [facility] Sanjay, Acute pharyngitis (Primary Dx); Clinic [place] Isis Edwards PA-C Strep throat [id number] [facility] [id number] [place] [id number] [phone] Social History Tobacco Use Types Packs/Day Years Used Date Smoking Tobacco: Never Smokeless Tobacco: Never Alcohol Use Standard Drinks/Week Comments Yes 0 (1 standard drink = 0.6 oz pure alcoho l) rare Sex Assigned at Date Recorded Not on file documented as of this encounter Last Filed Vital Signs Vital Sign Reading Time Taken Comments Blood Pressure 140/90 06/25/2013 2:57 PM STUDIO [facility]OTTER Pulse 87 06/25/2013 2:57 PM [facility] Temperature 36.4 ??C (97.6 ??F) 06/25/2013 2:57 PM [facility] Respiratory Rate - - Oxygen Saturation 98% 06/25/2013 2:57 PM [facility] Inhaled Oxygen Concentration - - Weight 64 kg (141 lb) 06/25/2013 2:57 PM [facility] Height 162.6 cm (5' 4) 06/25/2013 2:57 PM [facility] Body Mass Index 24.2 06/25/2013 2:57 PM ST[facility] documented in this encounter Patient Instructions Patient InstructionsIsis Garce PA-C - 06/25/2013 3:33 PM [facility] Images from the original note were not [...] because you feel better. Acetaminophen (Tylenol??) or yvvs-mno-gagsalc anti-inflammatory medicine such as ibuprofen (Motrin??, Advil??) [...] You can also carry an alcohol-based hand dumper mold cleaner with you toclean your hands when [...] You have any symptoms that worry you IO POTTER documented in this encounter Progress Notes Isis [...] See Patient Instructions Isis Grace PA-C, [facility] Patient Instructions 462 Acute pharyngitis (primary encounter [...] because you feel better. Acetaminophen (Tylenol??) or bxmh-edi-uzzsybs anti-inflammatory medicine such as ibuprofen (Motrin??, Advil??) [...] You can also carry an alcohol-based hand dumper mold cleaner with you toclean your hands when [...] You have any symptoms that worry you IO POTTER documented in this encounter Nursing Notes 06/25/2013 2:40 PM CST >> UMESH PASTOR FriJun 25, 2013 2:58 PM Patient presents with: [...] completed using cuff size: regular Umesh Pastor SURFACER OPERATOR documented in this encounter Plan of Treatment Not on filedocumented as of this encounter Procedures Procedure Name Priority Date/Time Associated Diagnosis Comme nts RAPID STREP SCREEN Routine 06/25/2013 3:21 PM Acute pharyngiti s Results for this THROAT SWAB STUDIO [facility]OTTER procedure are i n the results section. documented in this encounter Results (ABNORMAL) Strep, Rapid Screen (06/25/2013 3:21 PM STUDIO POTTER) Component Value Ref Test Analysis Performed At [facility] Range Method Time Signature Specimen Throat [place] Description [facility] Rapid Strep A POSITIVE: Group [place] Screen A Streptococcal CLINICS antigen detected ORGAN by immunoassay. (A) Micro Report FINAL 06/25/2013 [place] Status [facility] Specimen Anatomical Collection Method Collection Time Receive d Time (Source) Location / / Volume Laterality Specimen from 06/25/2013 3:21 PM 06/25/19 14 3:22 throat STUDIO POTTER PM [facility] (specimen) Isis Grace PA-C LAB - MICRO GENERAL OR DERABLES Performing Organization Address City/State/ZIP Code Phon e Number [facility] [id number] [place] [address] documented in this encounter Visit Diagnoses Diagnosis Acute pharyngitis - Primary Strep throat Streptococcal sore throat documented in this encounter Care Teams Supervisor Paint Department Relationship Specialty Start Date End Date Félix Arteaga MD PCP - General 06/25/05 08/29/14 [facility] [address] [address] documented as of this encounter
--- OUTSIDE RECORDS SUMMARY | 2022-02-16 10:59 | XMS_ITS | Encounter Summary ---
:1975 Author Organization [place] Address [address] [facility] [place] [address] Care Team Providers Name Role Phone Félix Arteaga MD Primary Care Provider + Reason for Visit Reason Comments Other patient complaining of abd p ain Encounter Details Date Type Department Care Team Description 06/09/2013 - [facility] Jeremy Magaña MD Constipation (Primary 06/10/2013 [facility] Emergency EMERGENCY PHYSICIANS Dx) Dept [place] [address] [place], [place] [phone] Social History Tobacco Use Types Packs/Day Years Used Date Smoking Tobacco: Never Smokeless Tobacco: Never Alcohol Use Standard Drinks/Week Comments Yes 0 (1 standard drink = 0.6 oz pure alcoho l) rare Sex Assigned at Date Recorded Not on file documented as of this encounter Last Filed Vital Signs Vital Sign Reading Time Taken Comments Blood Pressure 112/75 06/10/2013 12:50 AM HAIRSPRING II INSPECTOR Pulse 80 06/09/2013 9:39 PM HAIRSPRING II INSPECTOR Temperature 36.7 ??C (98 ??F) 06/09/2013 9:39 PM HAIRSPRING II INSPECTOR Respiratory Rate 16 06/09/2013 9:39 PM HAIRSPRING II INSPECTOR Oxygen Saturation 96% 06/10/2013 12:51 AM HAIRSPRING II INSPECTOR Inhaled Oxygen Concentration - - Weight 59 kg (130 lb) 06/09/2013 9:39 PM HAIRSPRING II INSPECTOR Height 162.6 cm (5' 4) 06/09/2013 9:39 PM HAIRSPRING II INSPECTOR Body Mass Index 22.31 06/09/2013 9:39 PM HAIRSPRING II INSPECTOR documented in this encounter Discharge Instructions Discharge Jeremy Andrade MD - 06/10/2013 12:52 AM CST Home [...] grain cereal with bran (Chex, Raisin Bran, [place] Bran), oatmeal, rolled oats, granola,wheat flakes, brown [...] all kinds OTHER: Popcorn, any spices ?? [phone] Tonie Naik, [address] [place] [address], [place] [address]. All rights reserved. This information is not [...] or fainting ?? Unexpected vaginal bleeding ?? [phone] [facility], [address] [place] [address]. All rights reserved. This information is not intended as a substitute for professional medical care. Always follow your healthcare professional's instructions. SPRING II INSPECTOR documented in this encounter Medications at Time [...] tablet 0 4 09/06/2013 tablet mouth daily ibuprofen (ADVIL,MOTRIN) Take 3 tablets by 20 tablet 0 07/201212/29/2013 200 MG tablet mouth every 8 hours as needed for pain. ADO-Qiid-MpMvsu-MgHydr-Si Take 5-10 mLs by 237 mL 1 [...] mouth daily (with breakfast). fluticasone (FLONASE) 50 [place] 1-2 sprays 1 Package 0 05/0709/06/2013 MCG/ACT nasal spray into both nostrils daily. norgestrel-ethinyl Take 1 tablet by 1 Package [...] provider's statements to me. Mackenzie Harden 06/09/2013 [facility] EMERGENCY DEPARTMENT Jeremy Magaña MD 06/10/13 0324 SPRING II INSPECTOR Manjula Cole RN - 06/09/2013 9:38 PM CST Pt Alert and oriented x3. Airway, breathing and circulation intact. Pt has been having abd pain for a few weeks. Pt having problems with constipation. Having bloating and 1 diarrhea stool today SPRING II INSPECTOR documented in this encounter Miscellaneous Notes Initial Assessments - Lawrence, Non-Provider - 06/11/2013 10:34 AM CST SPRING II INSPECTOR documented in this encounter Plan of Treatment Not on filedocumented as of this encounter Procedures Procedure Name Priority Date/Time Associated Comments Diagnosis CT ABDOMEN PELVIS W STAT 06/09/2013 11:44 Resu lts for this CONTRAST PM HAIRSPRING II INSPECTOR procedure are i n the results section. CBC WITH PLATELETS & STAT 06/09/2013 10:30 Res ults for this DIFFERENTIAL PM HAIRSPRING II INSPECTOR procedure are i n the results section. LIPASE STAT 06/09/2013 10:30 Results for this PM HAIRSPRING II INSPECTOR procedure are i n the results section. COMPREHENSIVE STAT 06/09/2013 10:30 Results fo r this METABOLIC PANEL PM HAIRSPRING II INSPECTOR procedure ar e in the results section. HCG QUALITATIVE URINE STAT 06/09/2013 10:20 Re sults for this PM HAIRSPRING II INSPECTOR procedure are i n the results section. ROUTINE UA WITH STAT 06/09/2013 10:20 Results for this MICROSCOPIC PM HAIRSPRING II INSPECTOR procedure are i n the results section. RAPID STREP SCREEN STAT 06/09/2013 10:15 Resul ts for this THROAT SWAB PM HAIRSPRING II INSPECTOR procedure are i n the results section. BETA HEMOLYTIC STREP Routine 06/09/2013 10:15 Res ults for this GROUP A CULTURE PM HAIRSPRING II INSPECTOR procedure ar e in the results section. documented in this encounter Results CT Abdomen Pelvis w Contrast (06/09/2013 11:44 PM HAIRSPRING II INSPECTOR) Anatomical Region Laterality Modality Abdomen/Pelvis, SUBRAD CT BODY, UMP CT ABDOMEN PELVIS Computed Tomography Specimen (Source) Anatomical Location Collection Method / Collectio n Time Received Time / Laterality Volume Impressions 06/10/2013 9:06 AM HAIRSPRING II INSPECTOR IMPRESSION: 1. A trace amount of nonspecific free fl uid in the pelvis. 2. No other cause of acute abdominal corina n identified. Note that the appendix is not visualized. The preliminary interpretation was conve yed to the clinical service by Dr. Angulo on 06/09/2013 at 2347 hours. ARTUR MULLINS MD Narrative 06/10/2013 9:06 AM HAIRSPRING II INSPECTOR CT ABDOMEN AND PELVIS WITH CONTRAST 06/09/2013 [...] IMG CT ORDERABLES Lipase (06/09/2013 10:30 PM HAIRSPRING II INSPECTOR) P athologist Signature Lipase 112 20 - 250 [facility] LAB Specimen Anatomical Collection Method Collection Time Receive d Time (Source) Location / / Volume Laterality Blood specimen 06/09/2013 10:30 4 (specimen) PM HAIRSPRING II INSPECTOR 10:45 PM HAIRSPRING II INSPECTOR Jeremy Magaña MD LAB - BLOOD ORDERABLES Performing Organization Address City/State/ZIP Code Phon e Number M [facility] [address] [place], [place] [address] [facility] LAB (ABNORMAL) Comprehensive metabolic panel (06/09/2013 10:30 PM HAIRSPRING II INSPECTOR) Analysis Performed At Patho logist Time Signature Sodium 138 133 - 144 [place] mmol/L [facility] Potassium 3.9 3.4 - 5.3 [place] mmol/L [facility] Chloride 102 94 - 109 [place] mmol/L [facility] Carbon Dioxide 28 20 - 32 [place] mmol/L [facility] Anion Gap 7 6 - 17 [place] mmol/L [facility] Glucose 83 60 - 99 [place] mg/dL [facility] Urea Nitrogen 10 5 - 24 [place] mg/dL [facility] Creatinine 0.84 0.52 - [place] 1.04 mg/dL [facility] GFR Estimate 75 >60 [place] mL/min/[address] [place] [address] LAB GFR Estimate If >90 >60 [place] Black mL/min/1.[address] [place] [address] LAB Calcium 8.6 8.5 - 10.4 [place] mg/dL [facility] Bilirubin Total 0.9 0.2 - 1.3 [place] mg/dL [facility] Albumin 3.7 (L) 3.9 - 5.1 [place] g/dL [facility] Protein Total 7.3 6.8 - 8.8 [place] g/dL [facility] Alkaline 53 40 - 150 [place] Phosphatase U/L [facility] ALT 29 0 - 50 U/L [facility] AST 24 0 - 45 U/L [facility] LAB Specimen Anatomical Collection Method Collection Time Receive d Time (Source) Location / / Volume Laterality Blood specimen 06/09/2013 10:30 4 (specimen) PM HAIRSPRING II INSPECTOR 10:45 PM HAIRSPRING II INSPECTOR Jeremy Magaña MD LAB - BLOOD ORDERABLES Performing Organization Address City/State/ZIP Code Phon e Number M [facility] [address], [place] [address] [facility] (ABNORMAL) CBC with platelets differential (06/09/2013 10:30 PM HAIRSPRING II INSPECTOR) [facility] Time Signature WBC 6.9 4.0 - [place] 11.0 [facility] RBC Count 3.82 3.8 - 5.2 [place] 10e12/L [facility] Hemoglobin 10.2 (L) 11.7 - [place] 15.7 g/dL [facility] Hematocrit 30.8 (L) 35.0 - [place] 47.0 % [facility] MCV 81 78 - 100 [place] fl [facility] MCH 26.7 26.5 - [place] 33.0 pg [facility] MCHC 33.1 31.5 - [place] 36.5 g/dL [facility] RDW 14.3 10.0 - [place] 15.0 % [facility] Platelet Count 258 150 - [address] LAB Diff Method Automated [facility] LAB % Neutrophils 62.8 % [facility] % Lymphocytes 31.8 % [facility] % Monocytes 4.4 % [facility] % Eosinophils 0.6 % [facility] % Basophils 0.3 % [facility] % Immature 0.1 % [place] Granulocytes [facility] Absolute 4.3 1.6 - 8.3 [place] Neutrophil 109/[facility] LAB Absolute 2.2 0.8 - 5.3 [place] Lymphocytes [address] [place] [address] LAB Absolute 0.3 0.0 - 1.3 [place] Monocytes [address] [place] [address] LAB Absolute 0.0 0.0 - 0.7 [place] Eosinophils [address] LAB Absolute 0.0 0.0 - 0.2 [place] Basophils [address] [place] [address] LAB Abs Immature 0.0 0 - 0.4 [place] Granulocytes [address] [place] [address] LAB Specimen Anatomical Collection Method Collection Time Receive d Time (Source) Location / / Volume Laterality Blood specimen 06/09/2013 10:30 4 (specimen) PM HAIRSPRING II INSPECTOR 10:45 PM HAIRSPRING II INSPECTOR Jeremy Magaña MD LAB - BLOOD ORDERABLES Performing Organization Address City/State/ZIP Code Phon e Number M [facility] [address] [place], [place] [address] [facility] HCG qualitative urine (06/09/2013 10:20 PM HAIRSPRING II INSPECTOR) P athologist Signature HCG Qual Urine Negative NEG [facility] LAB Specimen Anatomical Collection Method Collection Time Receive d Time (Source) Location / / Volume Laterality Urine specimen URINE SPECIMEN 06/09/2013 10:20 014 (specimen) OBTAINED BY CLEAN PM HAIRSPRING II INSPECTOR 10:[address] CATCH PROCEDURE / Unknown Jeremy Magaña MD LAB - URINE ORDERABLES Performing Organization Address City/State/ZIP Code Phon e Number [facility] [address], [place] [address] [facility] LAB (ABNORMAL) UA with Microscopic (06/09/2013 10:20 PM HAIRSPRING II INSPECTOR) Patholo gist Method Time Signature Color Urine Yellow [facility] Appearance Urine Slightly [place] Cloudy [facility] Glucose Urine Negative NEG mg/dL [facility] Bilirubin Urine Negative NEG [facility] Ketones Urine Negative NEG mg/dL [facility] Specific [place] 1.013 1.003 - [place] Urine 1.035 [facility] Blood Urine Negative NEG [facility] pH Urine 8.0 (H) 5.0 - 7.0 [place] pH [facility] Protein Albumin Negative NEG mg/dL [facility] LAB Urobilinogen Normal 0.0 - 2.0 [place] mg/dL mg/dL [facility] Nitrite Urine Negative NEG [facility] LAB Leukocyte Negative NEG [place] Esterase Urine [facility] Source Midstream [facility] LAB WBC Urine 1 0 - 2 [place] /[facility] RBC Urine 2 0 - 2 [place] /[facility] Squamous 9 (H) 0 - 1 [place] Epithelial /HPF /HPF [facility] LAB Mucous Urine Present (A) NEG /LPF [facility] LAB Specimen Anatomical Collection Method Collection Time Receive d Time (Source) Location / / Volume Laterality Urine specimen URINE SPECIMEN 06/09/2013 10:20 014 (specimen) OBTAINED BY CLEAN PM HAIRSPRING II INSPECTOR 10:[address] CATCH PROCEDURE / Unknown Jeremy Magaña MD LAB - URINE ORDERABLES Performing Organization Address City/State/ZIP [facility] Phon e Number M [facility] [address] [place], [place] [address] [facility] Beta strep group A culture (06/09/2013 10:15 PM HAIRSPRING II INSPECTOR) Component Value Ref Test Analysis Performed At [facility] Range Method Time Signature Specimen Throat [facility] LAB Culture Micro No Beta [facility] Streptococcus MICROBIOLOGY isolated Micro Report FINAL 06/12/2013 [facility] Status MICROBIOLOGY Specimen Anatomical Collection Method Collection Time Receive d Time (Source) Location / / Volume Laterality 06/09/2013 10:15 06/09/2013 PM HAIRSPRING II INSPECTOR 10:25 PM HAIRSPRING II INSPECTOR Jeremy Magaña MD LAB - MICRO GENERAL ORDERABL ES Performing Organization Address City/State/ZIP Code Phon e Number [address] [address] [facility] LAB [facility] MICROBIOLOGY Rapid strep screen (06/09/2013 10:15 PM HAIRSPRING II INSPECTOR) Component Value Ref Test Analysis Performed At [facility] Range Method Time Signature Specimen Throat [facility] LAB Rapid Strep A NEGATIVE: No Group A strepto coccal antigen detected by immunoassay, await [place] Screen culture report. [facility] Micro Report FINAL 06/09/2013 [facility] LAB Specimen Anatomical Collection Method Collection Time Receive d Time (Source) Location / / Volume Laterality Specimen from 06/09/2013 10:15 06/09/2013 throat PM HAIRSPRING II INSPECTOR 10:25 PM HAIRSPRING II INSPECTOR (specimen) Jeremy Magaña MD LAB - MICRO GENERAL ORDERABL ES Performing Organization Address City/State/ZIP Code Phon e Number [facility] [address], [place] [address] [facility] documented in this encounter Visit Diagnoses Diagnosis Constipation - Primary Unspecified constipation documented in this encounter Administered Medications Inactive Administered Medications - up to 3 most recent administrations Medication Order MAR Action Action Date Dose Rate Site iopamidol (ISOVUE-370) 76% Given 06/09/2013 11:35 PM HAIRSPRING II INSPECTOR 58 mLs solution 500 mL 500 mL, Intravenous, ONCE, On Fri06/09/13 at 2330, For 1 dose ketorolac (TORADOL) injection 30 mg Given 06/09/2013 10:36 PM HAIRSPRING II INSPECTOR 30 mg 30 mg, Intravenous, ONCE, On Fri06/09/13 at 2230, For 1 dose, Do not give within 6 hours of Ibuprofen. lidocaine (XYLOCAINE) 2 % 15 mL, alum & mag Given 09/2013 10:36 PM HAIRSPRING II INSPECTOR 30 mLs hydroxide-simethicone (MYLANTA ES/MAALOX ES) 15 mL GI Cocktail 30 mL, Oral, ONCE, On Fri06/09/13 at 2230, For 1 dose ondansetron (ZOFRAN) injection 4 mg Given 06/09/2013 10:36 PM HAIRSPRING II INSPECTOR 4 mg 4 mg, Intravenous, EVERY 30 MIN PRN, nausea, vomiting, Administer over 2-5 Minutes, Starting on Fri06/09/13 at 2217, For 3 doses, May repeat in 30 minutes as needed, up to 3 doses. sodium chloride 0.9 % BOLUS New Bag 06/09/2013 10:36 PM HAIRSPRING II INSPECTOR 1, 000 mLs 1000 mL/hr 1,000 mL Intravenous, 1,000 mL, ONCE, at 1,000 mL/hr, Administer over 1 Hours, On Fri06/09/13 at 2230, For 1 dose sodium chloride 0.9 % BOLUS 1,000 mL New Bag 06/09/2013 11:36 PM HAIRSPRING II INSPECTOR 56 mLs Intravenous, 1,000 mL, ONCE, On Fri06/09/13 at 2330, For 1 dose documented in this encounter Active and Recently Administered Medications Times are shown in HAIRSPRING II INSPECTOR. Scheduled Medication Order 06/08/2013 06/09/2013 06/10/2013 iopamidol (ISOVUE-370) 76% solution 500 mL (COMPLETED) 2334 (Given - Provider: Matt Farooq) 500 mL, Intravenous, ONCE, On Fri06/09/13 at 2330, For 1 dose ketorolac (TORADOL) injection 30 mg (COMPLETED) 2235 (Given - Provider: Olga Angulo RN) 30 mg, Intravenous, ONCE, On Fri06/09/13 at 2230, For 1 dose, Do not give within 6 hours of Ibuprofen. lidocaine (XYLOCAINE) 2 % 15 mL, alum & mag hydroxide-simethicone (MYLANTA ES/MAALOX ES) 15 mL GI Cocktail (COMPLETED) 2235 (Give n - Provider: Olga Angulo RN) 30 mL, Oral, ONCE, On Fri06/09/13 at 2230, For 1 dose sodium chloride 0.9 % BOLUS 1,000 mL (COMPLETED) 223 (New Bag - Provider: Olga Angulo RN) 0054 (Stopped - Provider: Justin reardon, DELLA) Intravenous, 1,000 mL, ONCE, at 1,000 mL /hr, Administer over 1 Hours, On Fri06/09/13 at 2230, For 1 dose sodium chloride 0.9 % BOLUS 1,000 mL (COMPLETED) 233 (New Bag - Provider: Matt Farooq)2340 (Stopped - Provider: Matt Farooq) Intravenous, 1,000 mL, ONCE, On Fri06/09/13 at 2330, For 1 dose PRN [...] doses. documented in this encounter Care Teams Cashier Self Service Gasoline Relationship Specialty Start Date End Date Félix Arteaga MD PCP - General 06/25/05 08/29/14 [facility] [address] [place] [address] documented as of this encounter
--- OUTSIDE RECORDS SUMMARY | 2022-02-16 10:59 | XMS_ITS | Encounter Summary ---
:1975 Author Organization [place] Address [address] [place] [address] Care Team Providers Name Role Phone Félix Arteaga MD Primary Care Provider + Encounter Details Date Type Department Care Team Description 11/19/2010 Operative Report [facility] [place], (Stove Refinisher) [facility] Results [address] [facility], [address] [place], [place] [address] (Wo rk) Social History Tobacco Use Types Packs/Day Years Used Date Smoking Tobacco: Never Alcohol Use Standard Drinks/Week Comments [...] CATHLEEN#[id number] Name: COURTNEY LIZAMA MRN: [id number] Account: [id number] : 1975 Procedure Date: 11/19/2010 Document: [id number] [place] MD - 11/28/2010 1:58 PM [...] This was unsuccessful. I then placed multiple [id number]-[id number] sutures in the cervix to obtain hemostasis. [...] 11/28/2010 13:58 by L[place]ON [place] MD MT: #[id number] Name: COURTNEY LIZAMA MRN: [id number] Account: [id number] : 1975 Procedure Date: 11/19/2010 Document: [id number] documented in this encounter Plan of Treatment Not on filedocumented as of this encounter Visit Diagnoses Not on filedocumented in this encounter Care Teams Home Mortgage Disclosure Act Specialist Relationship Specialty Start Date End Date Félix Arteaga MD PCP - General 06/25/05 08/29/14 [facility] AESTHETIC WELLNESS [address] [place] [address] documented as of this encounter
--- OUTSIDE RECORDS SUMMARY | 2022-02-16 10:59 | XMS_ITS | Encounter Summary ---
:1975 Author Organization [place] Address [address] [facility] [place] [address] Care Team Providers Name Role Phone Félix Arteaga MD Primary Care Provider + Reason for Visit Reason Onset Date Comments Results 12/03/2010 low hgb Encounter Details Date Type Department Care Team Description 12/03/2010 Telephone [facility] Félix Arteaga (low hgb) [facility] [place] [address] [place], [place] WE[place]NESS [id number] [address] [phone] [place], [place] [address] (Wo rk) Social History [...] from compazine and was given Ativan. Per hudivory with Dr. Velarde : Pt to recheck [...] this plan. Thank you, Nohelia Nicole RN [facility] Message handled by Nurse Triage with James - provider name: Dr. Sorto. documented in this encounter Plan of Treatment Not on filedocumented as of this encounter Visit Diagnoses Not on filedocumented in this encounter Care Teams Head Stock Transfer Clerk Relationship Specialty Start Date End Date Félix Arteaga MD PCP - General 06/25/05 08/29/14 [facility] [address] [place] [address] documented as of this encounter
--- OUTSIDE RECORDS SUMMARY | 2022-02-16 10:59 | XMS_ITS | Encounter Summary ---
:1975 Author Organization [place] Address [address] [facility] [place] [address] Care Team Providers Name Role Phone Félix Arteaga MD Primary Care Provider + Reason for Visit Reason Comments Cough Fever Otalgia Encounter Details Date Type Department Care Team Description 05/07/2012 Emergency [facility] Matty Huffman MD Acute otitis media (Primary Dx); [facility] Emergency Dep t EMERGENCY PHYSICIANS Acute URI [address] [place], [place] [address] Write.my [phone] [place] [address] [place], [place] [address] (Wo rk) Social History Tobacco Use Types Packs/Day Years Used Date Smoking Tobacco: Never Smokeless Tobacco: Never Alcohol Use Standard Drinks/Week Comments Yes 0 (1 standard drink = 0.6 oz pure alcoho l) rare Sex Assigned at Date Recorded Not on file documented as of this encounter Last Filed Vital Signs Vital Sign Reading Time Taken Comments Blood Pressure 128/88 05/07/2012 8:23 AM STUCCO APPLICATOR Pulse - - Temperature 36.6 ??C (97.9 ??F) 05/07/2012 8:23 AM STUCCO APPLICATOR Respiratory Rate 20 05/07/2012 8:23 AM STUCCO APPLICATOR Oxygen Saturation 100% 05/07/2012 8:23 AM STUCCO APPLICATOR Inhaled Oxygen Concentration - - Weight - [...] 2 need to be seen by their continuous miner operator helper WITHIN 3 MONTHS to ensure that the [...] or if there is anythingthat worries you. CO APPLICATOR documented in this encounter Medications at Time of Discharge Medication Sig Dispensed Refills Start Date End Date amoxicillin (AMOXIL) 500 Take 1 capsule by 21 capsule 0 07/201205/14/2012 MG capsule mouth 3 times daily for 7 days. fluticasone (FLONASE) 50 [place] 1-2 sprays 1 Package 0 05/0709/06/2013 MCG/ACT nasal spray into both nostrils daily. ibuprofen (ADVIL,MOTRIN) Take 3 tablets by 20 tablet 0 07/201212/29/2013 200 MG tablet mouth every 8 hours as needed for pain. acetaminophen (TYLENOL) Take 1-2 tablets by 0 12/29/2013 500 MG tablet mouth every 6 hours as needed. ferrous gluconate Take 1 tablet by 100 tablet 5 12/07/2010 0 09/06/2013 (FERGON) 324 (38 FE) MG mouth daily (with tabletIndications: breakfast). Menorrhagia Ferrous Sulfate Dried Take by mouth 0 12/29/2013 (SLOW IRON PO) daily. documented as of this encounter ED Notes [...] otitis media. 2. Acute URI. I, Yomaira Daileyhenri, am serving as a Scribe on 05/07/2012 at 8:35 AM to personally document the services performed by Dr. Huffman based upon my observations and the provider's statements to me. Kendra Yasmine 05/07/2012 [facility] EMERGENCY DEPARTMENT Matty Huffman MD 05/07/12 1209 CO APPLICATOR Etta Odonnell RN - 05/07/2012 8:22 AM CST Taking sudafed and advil CO APPLICATOR documented in this encounter Plan of Treatment [...] Site antipyrine-benzocaine (AURODEX) Given 05/07/2012 9:16 AM STUCCO APPLICATOR 3 d rops Otic Solution 3 drop 3 drop, Right Ear, ONCE, On [place] 05/07/12 at 0900, For 1 dose ibuprofen (ADVIL,MOTRIN) tablet 600 mg Given 05/07/2012 9:15 AM STUCCO APPLICATOR 600 mg 600 mg, Oral, ONCE, On [place] 05/07/12 at 0900, For 1 dose documented in this encounter Active and Recently Administered Medications Times are shown in STUCCO APPLICATOR. Scheduled Medication Order 05/05/2012 05/06/2012 05/07/2012 antipyrine-benzocaine (AURODEX) Otic Solution 3 drop (COMPLETED) 915 (Given - Provider: Merry Smith RN) 3 drop, Right Ear, ONCE, On [place] 05/07/12 at 0900, For 1 dose ibuprofen (ADVIL,MOTRIN) tablet 600 mg (COMPLETED) 0915 (Given - Provider: Merry Smith RN) 600 mg, Oral, ONCE, On [place] 05/07/12 at 0900, For 1 dose documented in this encounter Care Teams Briquette Operator Relationship Specialty Start Date End Date Félix Arteaga MD PCP - General 06/25/05 08/29/14 [facility] [address] [place] [address] documented as of this encounter
--- OUTSIDE RECORDS SUMMARY | 2022-02-16 10:59 | XMS_ITS | Encounter Summary ---
:1975 Author Organization [place] Address [address] [facility] [place] [address] Care Team Providers Name Role Phone Félix Arteaga MD Primary Care Provider + Reason for Visit Reason Comments Abdominal Pain Encounter Details Date Type Department Care Team Description 09/21/2012 Emergency [facility] Ab[facility] [address] [facility] [phone] [facility] [phone] [place], [place] [address] (Wo rk) Social History [...] directed by your doctor today. Before using hxht-bmk-ghbfiye medications, ask your doctor and make sure [...] Date ondansetron (ZOFRAN ODT) Take 1 tablet by 10 tablet 0 09/2109/23/2012 4 MG disintegrating mouth every 8 hours tablet as needed for nausea for 3 days. oxyCODONE-acetaminophen Take 1-2 tablets by 15 tablet 0 09/23/2012 (PERCOCET) 5-325 MG per mouth every 4 hours tablet as needed for pain for 4 days. acetaminophen (TYLENOL) Take 1-2 tablets by [...] mouth daily (with breakfast). fluticasone (FLONASE) 50 [place] 1-2 sprays 1 Package 0 05/0709/06/2013 MCG/ACT [...] History Chief Complaint: Abdominal Pain HPI Alyssa L Boykin is a 37 year old female who [...] to document services personally performed by Dr. Drummond, based on my observations and the provider's statements to me. Darryl Sinclair 09/21/2012 [facility] EM[facility] Kendall Delvalle MD 09/21/12 1840 Merry Smith RN - 09/21/2012 8:18 PM [...] limits. NAGA ANGULO MD Kendall Delvalle MD IMG CT ORDERABLES (ABNORMAL) Comprehensive metabolic panel (09/21/2012 9:00 PM CDT) Analysis Performed At [facility] logis Time Signature Sodium 138 133 - 144 [place] mmol/L [facility] Potassium 3.6 3.4 - 5.3 [place] mmol/L [facility] Chloride 99 94 - 109 [place] mmol/L [facility] Carbon Dioxide 26 20 - 32 [place] mmol/L [facility] Anion Gap 13.4 6 - 17 [place] mmol/L [facility] Glucose 79 60 - 99 [place] mg/dL [facility] Urea Nitrogen 8 5 - 24 [place] mg/dL [facility] Creatinine 0.59 0.52 - [place] 1.04 mg/dL [facility] GFR Estimate >90 >60 [place] mL/min/[address] [place] [address] LAB GFR Estimate If >90 >60 [place] Black mL/min/1.[address] [place] [address] LAB Calcium 8.5 8.5 - 10.4 [place] mg/dL [facility] Bilirubin Total 1.5 (H) 0.2 - 1.3 [place] mg/dL [facility] Albumin 3.8 (L) 3.9 - 5.1 [place] g/dL [facility] Protein Total 7.5 6.8 - 8.8 [place] g/dL [facility] Alkaline 51 40 - 150 [place] Phosphatase U/L [facility] ALT 14 0 - 50 U/L [facility] AST 27 0 - 45 U/L [facility] Specimen Anatomical Collection Method Collection Time Receive d Time (Source) Location / / Volume Laterality Blood specimen 09/21/2012 9:00 PM 013 9:10 (specimen) CDT PM CDT Kendall Delvalle MD LAB - BLOOD ORDERABLES Performing Organization Address City/State/ZIP Code Phon e Number M [facility] [address], [place] [address] [facility] (ABNORMAL) CBC + differential (09/21/2012 9:00 PM CDT) [facility] gist Method Time Signature WBC 10.1 4.0 - [place] 11.0 [facility] 10e9/L [facility] RBC Count 3.88 3.8 - 5.2 [place] 10e12/L [facility] Hemoglobin 11.0 (L) 11.7 - [place] 15.7 g/dL [facility] Hematocrit 33.7 (L) 35.0 - [place] 47.0 % [facility] MCV 87 78 - 100 [place] fl [facility] MCH 28.4 26.5 - [place] 33.0 pg [facility] MCHC 32.6 31.5 - [place] 36.5 g/dL [facility] RDW 13.3 10.0 - [place] 15.0 % [facility] Platelet Count 254 150 - 450 [place] 10e9/L [facility] Diff Method Automated [place] Method [facility] % Neutrophils 82.1 (H) 40 - 75 % [facility] % Lymphocytes 10.2 (L) 20 - 48 % [facility] % Monocytes 7.1 0 - 12 % [facility] % Eosinophils 0.2 0 - 6 % [facility] % Basophils 0.2 0 - 2 % [facility] % Immature 0.2 0 - 0.4 % [place] Granulocytes [facility] Absolute 8.3 1.6 - 8.3 [place] Neutrophil 10e9/L [facility] Absolute 1.0 0.8 - 5.3 [place] Lymphocytes 10e9/L [facility] Absolute 0.7 0.0 - 1.3 [place] Monocytes 10e9/L [facility] Absolute 0.0 0.0 - 0.7 [place] Eosinophils 10e9/L [facility] Absolute 0.0 0.0 - 0.2 [place] Basophils 10e9/L [facility] Abs Immature 0.0 0 - 0.03 [place] Granulocytes 10eL [facility] Specimen Anatomical Collection Method Collection Time Receive d Time (Source) Location / / Volume Laterality Blood specimen 09/21/2012 9:00 PM 013 9:10 (specimen) CDT PM CDT Kendall Delvalle MD LAB - BLOOD ORDERABLES Performing Organization Address City/State/ZIP Code Phon e Number M [facility] [address], [place] [address] [facility] HCG qualitative urine (09/21/2012 8:35 PM CDT) P athologist Signature HCG Qual Urine Negative NEG [facility] Specimen Anatomical Collection Method Collection Time Receive d Time (Source) Location / / Volume Laterality Urine specimen 09/21/2012 8:35 PM 013 8:40 (specimen) CDT PM CDT Kendall Delvalle MD LAB - URINE ORDERABLES Performing Organization Address City/[facility]/ZIP Code Phon e Number Lonny [facility] [address] [place], [place] [address] [facility] (ABNORMAL) Routine UA with microscopic (09/21/2012 8:35 PM CDT) [facility] Method Time Signature Color Urine Yellow [facility] Appearance Urine Slightly [place] Cloudy [facility] Glucose Urine Negative NEG mg/dL [facility] Bilirubin Urine Negative NEG [facility] Ketones Urine Negative NEG mg/dL [facility] Specific [place] 1.008 1.003 - [place] Urine 1.035 [facility] Blood Urine Negative NEG [facility] pH Urine 8.0 (H) 5.0 - 7.0 [place] pH [facility] Protein Albumin Negative NEG mg/dL [facility] Urobilinogen Normal 0.0 - 2.0 [place] mg/dL mg/dL [facility] Nitrite Urine Negative NEG [facility] Leukocyte Small (A) NEG [place] Esterase [facility] Source Midstream [facility] WBC Urine 2 0 - 2 [facility] RBC Urine 1 0 - 2 [facility] Bacteria Urine Few (A) NEG /HPF [facility] Squamous 9 (H) 0 - 1 [place] Epithelial /HPF /HPF [facility] Transitional Epi <1 0 - 1 [facility] Mucous Urine Present (A) NEG /LPF [facility] Specimen Anatomical Collection Method Collection Time Receive d Time (Source) Location / / Volume Laterality Urine specimen 09/21/2012 8:35 PM 013 8:40 (specimen) CDT PM CDT Kendall Delvalle MD LAB - URINE ORDERABLES Performing Organization Address City/[facility]/ZIP [facility] Phon e Number Lonny [facility] [address], [place] [address] [facility] documented [...] 100 mL, Intravenous, ONCE, On Fri09/21/12 at 214, For 1 dose morphine (PF) injection 4 mg Given 09/21/2012 10:06 PM CDT 4 mg 4 mg, Intravenous, EVERY 15 MIN PRN, moderate to severe pain, Starting on Fri09/21/12 at 2040, For 3 doses Given 09/21/2012 8:55 PM CDT 4 mg sodium chloride 0.9 % BOLUS 1,000 mL New Bag 09/21/2012 8:56 PM CDT 1,000 mLs Intravenous, 1,000 mL, ONCE, On Fri09/21/12 at 2044, For 1 dose sodium chloride 0.9 % BOLUS 1,000 mL New Bag 09/21/2012 9:48 PM CDT 56 mLs Intravenous, 1,000 mL, ONCE, On Fri09/21/12 at 214, For 1 dose documented in this encounter Active and Recently Administered Medications Times are shown in CDT. Scheduled Medication Order 09/19/2012 09/20/2012 09/21/2012 iohexol (OMNIPAQUE) 140 mg/mL solution 25 mL (COMPLETED) 2055 (Given - Provider: Valerie Mirza RN)2114 (Due)2129 (Given - Provider: Valerie Mirza RN) 25 mL, Oral, EVERY 30 MIN, First dose on Fri09/21/12 at 2045, Fo r 2 doses ioversol (OPTIRAY 320) iv solution 68% 100 mL (COMPLETED) 2147 (Given - Provider: Yumiko Ppo - Comment: 27) 100 mL, Intravenous, ONCE, On Fri09/21/12 at 2145, For 1 dose sodium chloride 0.9 % BOLUS 1,000 mL (COMPLETED) 2055 (New Bag - Provider: Valerie Mirza RN)2157 (Stopped - Provider: Valerie Mirza RN) Intravenous, 1,000 mL, ONCE, On Fri09/21/12 at 2044, For 1 dose sodium chloride 0.9 % BOLUS 1,000 mL (COMPLETED) 2147 (New Bag - Provider: Yumiko Pop - Comment: bulk)2148 (Stopped - Provider: Yumiko Pop) Intravenous, 1,000 mL, ONCE, On Fri09/21/12 at 2144, For 1 dose PRN Medication Order 09/19/2012 09/20/2012 09/21/2012 acetaminophen (TYLENOL) tablet 1,000 mg (CANCELED) 2205 (Given - Provider: Valerie Mirza RN) 1,000 mg, Oral, EVERY 4 HOURS PRN, fever , Starting on Fri09/21/12 at 2200, Maximum acetaminophen dose from all sources = 75 mg/kg/day not to exceed 4 gram morphine (PF) injection 4 mg (CANCELED) 2054 (Given - Provider: Valerie Mirza RN)2205 (Given - Provider: Valerie Mirza RN) 4 mg, Intravenous, EVERY 15 MIN PRN, mod erate to severe pain, Starting on Fri09/21/12 at 2041, For 3 doses documented in this encounter Care Teams Occupational Health And Safety Officer Relationship Specialty Start Date End Date Félix Arteaga MD PCP - General 06/25/05 08/29/14 [facility] [address] [place] [address] documented as of this encounter
--- OUTSIDE RECORDS SUMMARY | 2022-02-16 10:59 | XMS_ITS | Encounter Summary ---
:1975 Author Organization [place] Address [address] [facility] [place] [address] Care Team Providers Name Role Phone Félix Arteaga MD Primary Care Provider + Encounter Details Date Type Department Care Team Description 11/19/[address] [facility] [place] [facility] Results [address] [facility], [address] [place], [place] [phone] (Wo rk) Social History Tobacco Use Types Packs/Day Years Used Date Smoking Tobacco: Never Alcohol Use Standard Drinks/Week Comments Yes 0 (1 standard drink = 0.6 oz pure alcoho l) rare Sex Assigned at Date Recorded Not on file documented as of this encounter Plan of Treatment Not on filedocumented as of this encounter Procedures Procedure Name Priority Date/Time Associated Diagnosis Comme [facility] SURGICAL PATHOLOGY Routine 11/19/2010 9:15 AM Res ults for this EXAM CDT procedure are i n the results section. documented in this encounter Results Surgical pathology exam (11/19/2010 9:15 AM CDT) Component Value Ref Test Analysis Performed At [facility] Range Method Time Signature Copath Report Patient Name: COURTNEY LIZAMA MR#: [id number] Specimen #: [id number] Collected: 11/19/2010 Received: 11/19/2010 Reported: 11/23/2010 08:20 [...] out dysplasia. LRV/ls 11/20/2010 TESTING LAB LOCATION: [address] ??[phone] COLLECTION SITE: Client: [facility] Location: SDS (S) Specimen Anatomical Collection Method Collection Time Receive d Time (Source) Location / / Volume Laterality 11/19/2010 9:15 AM 1 CDT 11:40 AM CDT Janes BARRIENTOS - BAN AP Performing Organization Address City/State/ZIP Code Phon e Number [place] documented in this encounter Visit Diagnoses Not on filedocumented in this encounter Care Teams Retail General Manager Relationship Specialty Start Date End Date Félix Arteaga MD PCP - General 06/25/05 08/29/14 [facility] [address] [place] [address] documented as of this encounter
--- OUTSIDE RECORDS SUMMARY | 2022-02-16 10:59 | XMS_ITS | Encounter Summary ---
:1975 Author Organization [place] Address [address] [facility] [place] [address] Care Team Providers Name Role Phone Félix Arteaga MD Primary Care Provider + Reason for Visit Reason Onset Date Comments Fatigue 09/21/2012 Gas 09/21/2012 Abdominal Pain 09/21/2012 Back Pain 09/21/2012 Encounter Details Date Type Department Care Team Description 09/21/2012 Telephone [facility] Félix Arteaga atigue; Gas; Clinic [place] Redd Baxter MD Abdominal Pain; Back [address] [facility] [place], [place] [address] [address] [phone] [place], [place] [address] (Wo rk) Social History [...] on filedocumented in this encounter Care Teams Chef Kitchen Manager Relationship Specialty Start Date End Date Félix Arteaga MD PCP - General 06/25/05 08/29/14 [facility] [address] [place] [address] documented as of this encounter
--- OUTSIDE RECORDS SUMMARY | 2022-02-16 10:59 | XMS_ITS | Encounter Summary ---
:1975 Author Organization [place] Address [address] [place] [address] Care Team Providers Name Role Phone Félix Arteaga MD Primary Care Provider + Reason for Visit Reason Comments Pharyngitis Encounter Details Date Type Department Care Team Description [facility] [address] [place], [place] [address] [employer] [phone] [place] [address] [place] [address] (Wo rk) Social History Tobacco [...] Comments Blood Pressure 121/82 06/27/2013 9:01 PM AUCTIONEER TOBACCO Pulse 80 06/27/2013 9:01 PM [employer]CTION[employer] TOBACCO Temperature 37.1 ??C (98.7 ??F) 06/27/2013 9:01 PM AUCTIONEER TOBACCO Respiratory Rate 20 06/27/2013 10:40 PM AUCTIONEER TOBACCO Oxygen Saturation 100% 06/27/2013 9:01 PM AUCTIONEER TOBACCO Inhaled Oxygen Concentration - - Weight - - Height - - Body Mass Index - - documented in this encounter Discharge Instructions Discharge InstructionsTrArcadio scanlon MD - 06/27/2013 9:58 PM CST Discharge [...] directed by your doctor today. Before using gjjq-cvo-ddkonro medications, ask your doctor and make sure [...] or if there is anythingthat worries you. IONEER TOBACCO documented in this encounter Medications at Time of Discharge Medication Sig Dispensed Refills Start Date End Date methylprednisoLONE Follow package 21 tablet 0 06/27/2013 (MEDROL DOSEPAK) 4 MG instructions tablet acetaminophen (TYLENOL) Take 1-2 tablets by 0 12/29/2013 500 MG tablet mouth every 6 hours as needed. docusate sodium 100 MG Take 100 mg by 30 tablet 0 4 09/06/2013 tablet mouth daily PCQ-Ngpk-RbAnwx-MgHydr-Si Take 5-10 mLs by 237 mL 1 [...] mouth daily (with breakfast). fluticasone (FLONASE) 50 [place] 1-2 sprays 1 Package 0 05/0709/06/2013 MCG/ACT nasal spray into both nostrils daily. ibuprofen (ADVIL,MOTRIN) Take 3 tablets by 20 tablet 0 01/0 07/201212/29/2013 200 MG tablet mouth every 8 [...] Colicky abdominal pain. ARCADIO OTTO MD MT: #[id number] Name: COURTNEY LIZAMA Account: [id number] : 1975 Visit Date: 06/27/2013 Document: [id number] cc: Félix Arteaga MD IONEER TOBACCO Janet Rush RN - 06/27/2013 10:42 PM CST Discharge instructions reviewed with patient. Patient verbalizes her understanding. DC prescriptionsalso reviewed. DC To home per order. All questions answered. IONEER TOBACCO Malissa Colby, DELLA - 06/27/2013 9:04 PM CST Pt complains of sore throat. Strep throat 3 weeks ago; finished amoxacillin then. Saw PCP on Friday with continued strep; started PCN; now having stomach aches and throat feels unchanged. In triage airway, breathing and circulation intact without need for intervention. Alert and interacting appropriately for age and situation. HOME MEDICATIONS: List in EPIC is NOT correct: no daily medications except the penicillin. IONEER TOBACCO documented in this encounter Plan of Treatment Not on filedocumented as of this encounter Visit Diagnoses Diagnosis Streptococcal pharyngitis - Primary Streptococcal sore throat Colic cramps Colic documented in this encounter Care Teams Physician Surgeon Relationship Specialty Start Date End Date Félix Arteaga MD PCP - General 06/25/05 08/29/14 [facility] [address] [place] [address] documented as of this encounter
--- OUTSIDE RECORDS SUMMARY | 2022-02-16 10:59 | XMS_ITS | Encounter Summary ---
:1975 Author Organization [place] Address [address] [facility] [place] [address] Care Team Providers Name Role Phone Félix Arteaga MD Primary Care Provider + Encounter Details Date Type Department Care Team Description 12/13/2010 Orders Only [facility] Aleksey Arshad he; Clinic [place] MD [place] corina n; Laboratory TMJ (temporomandibular joint syndrome) [address] [place] [address] Social History Tobacco Use Types [...] cified documented in this encounter Care Teams Chairman Ceo Relationship Specialty Start Date End Date Félix Arteaga MD PCP - General 06/25/05 08/29/14 [facility] [address] [place], [place] [address] documented as of this encounter
--- OUTSIDE RECORDS SUMMARY | 2022-02-16 10:59 | XMS_ITS | Encounter Summary ---
:1975 Author Organization [place] Address [address] [facility] [place] [address] Care Team Providers Name Role Phone Félix Arteaga MD Primary Care Provider + Reason for Visit Reason Comments Vaginal Bleeding Encounter Details Date Type Department Care Team Description 07/21/2012 Emergency [facility] Jae Elder Dysfukassy ional uterine bleeding (Primary Dx); [facility] Emergency MD Aj Anemia Dept EMERGENCY PHYSICIANS [address] [place], [place] [address] [place] [phone] [place] [address] [place], [place] [address] (Wo rk) Social History Tobacco Use Types [...] documented in this encounter Discharge Instructions Discharge InstructionsJae Elder MD - 07/21/2012 11:24 PM CDT Images from the original note were not included. Please make an appointment to follow up with your primary care provider or Hot Metal Charger into 1-2 weeks FOLLOW if not better. [...] month. The bleeding may be heavier or qa consultant than usual. Heavy bleeding may lead to [...] pain ?? Weakness, dizziness or fainting ?? [address] [facility], [address] [place] [address], [place] [address]. All rights reserved. This information is not intended as a substitute for professional medical care. Always follow your healthcare professional's instructions. documented in this encounter Medications at Time of Discharge Medication Sig Dispensed Refills Start Date End Date ferrous sulfate Dried 160 Take 1 tablet by 60 tablet 0 07/0309/06/2013 (50 FE) MG tablet mouth daily (with breakfast). ibuprofen (ADVIL,MOTRIN) Take 3 tablets by 20 tablet 0 07/201212/29/2013 200 MG tablet mouth every 8 hours as needed for pain. norgestrel-ethinyl Take 1 tablet by 1 Package 3 07/21/2012 09/06/2013 estradiol (LO/OVRAL, 28,) mouth daily. Take 2 0.3-30 MG-MCG per tablet tabs daily until bleeding stops and then take one tab until package is gone acetaminophen (TYLENOL) Take 1-2 tablets by 0 12/29/2013 500 MG tablet mouth every 6 hours as needed. ferrous gluconate Take 1 tablet by 100 tablet 5 12/07/2010 0 09/06/2013 (FERGON) 324 (38 FE) MG mouth daily (with tabletIndications: breakfast). Menorrhagia Ferrous Sulfate Dried Take by mouth 0 12/29/2013 (SLOW IRON PO) daily. fluticasone (FLONASE) 50 [place] 1-2 sprays 1 Package 0 05/0709/06/2013 MCG/ACT nasal spray into both nostrils daily. documented as of this encounter ED [...] on iron supplementation, and follow up with TELEPHONE INTERVIEWER. She is comfortable and agreeable with this plan. Diagnosis: 1. Dysfunctional uterine bleeding and menorrhagia. I, Vidal Lyon, am serving as a scribe on 07/21/2012 at 9:37 PM to personally document services performed by Dr. Elder based on my observations and the provider's statements to me. Vidal Lyon 07/21/2012 [facility] EMERGENCY [facility]PART[facility] Jae Elder MD 07/22/12 [...] Method Time Signature HCG Quantitative <3 IU/L [place] Serum Non- ?0 - 5 RID GES [...] Address City/State/ZIP Code Phon e Number M [place] [address] [place] [address] [facility]OSPITAL [facility] (ABNORMAL) CBC (platelets, no diff) (07/21/2012 9:25 PM CDT) Analysis Performed At Patho logist Time Signature WBC 6.0 4.0 - 11.0 [place] 10e9/L [facility] RBC Count 3.78 (L) 3.8 - 5.2 [place] 10e12/L [facility] Hemoglobin 11.3 (L) 11.7 - [facility] 15.7 g/dL [facility] Hematocrit 33.2 (L) 35.0 - [facility] 47.0 % [facility] MCV 88 78 - 100 [place] fl [facility] MCH 29.9 26.5 - [facility] 33.0 pg [facility] MCHC 34.0 31.5 - [facility] 36.5 g/dL [facility] RDW 13.8 10.0 - [place] 15.0 % [facility] Platelet Count 317 150 - 450 [place] 10e9/L [facility] Specimen Anatomical Collection Method Collection Time Receive d Time (Source) Location / / Volume Laterality Blood specimen 07/21/2012 9:25 PM 013 9:46 (specimen) CDT PM CDT Jae Elder MD LAB - BLOOD ORDERABLES Performing Organization Address City/State/ZIP Code Phon e Number M [facility] [address] [place], [place] [address] [facility] documented in this encounter [...] (COMPLETED) 2145 (New Bag - Provider: Mae [place], RN)2320 (Stopped - Provider: Lyric Carrasco, DELLA) Intravenous, 1,000 mL, ONCE, On Fri07/21/12 at 2145, For 1 dose documented in this encounter Care Teams Concrete Crusher Loader Operator Relationship Specialty Start Date End Date Félix Arteaga MD PCP - General 06/25/05 08/29/14 [facility] [address] [address] documented as of this encounter
--- OUTSIDE RECORDS SUMMARY | 2022-02-16 10:59 | XMS_ITS | Encounter Summary ---
:1975 Author Organization [place] Address [address] [facility] [place] [address] Care Team Providers Name Role Phone Félix Arteaga MD Primary Care Provider + Reason for Visit Reason Onset Date Comments ER F/U 06/10/2013 ER f/u 06/09/13 Cons tipation Encounter Details Date Type Department Care Team Description 06/10/2013 Telephone [facility] Félix Arteaga E R F/U (ER f/u Clinic [place] Redd Baxter MD 06/09/13 [address] [facility]) [place], [place] [address] [address] [phone] [place], [place] [address] (Wo rk) Social History [...] Was call answered? No. Que Mena RN NEYMAN PATTERNMAKER Telephone Encounter - Que Mena RN - 06/15/2013 1:56 PM CST ED / Discharge Outreach Protocol Patient Contact Attempt #2 Was call answered? No. Que Mena RN NEYMAN PATTERNMAKER Telephone Encounter - uQe Mena RN - 06/14/2013 1:25 PM CST ED / Discharge Outreach Protocol Patient Contact Attempt # 1 Was call answered? No. Left message on voicemail with information to call me back. Que Mena RN NEYMAN PATTERNMAKER Telephone Encounter - Ilene Rivas - 06/10/2013 3:04 PM CST Please call patient for ER f/u 06/09/13. Constipation. Ilene Rivas. Process Analyst.. NEYMAN PATTERNMAKER documented in this encounter Plan of Treatment Not on filedocumented as of this encounter Visit Diagnoses Not on filedocumented in this encounter Care Teams Road Mender Relationship Specialty Start Date End Date Félix Arteaga MD PCP - General 06/25/05 08/29/14 [facility] [address] [place] [address] documented as of this encounter
--- OUTSIDE RECORDS SUMMARY | 2022-02-16 10:59 | XMS_ITS | Encounter Summary ---
:1975 Author Organization [place] Address [address] [facility] [place] [address] Care Team Providers Name Role Phone Félix Arteaga MD Primary Care Provider + Reason for Visit Reason Comments ER F/U abd pain, dizziness, diarrhe a, Pharyngitis woke up this am with sore th roat, concerns for strep Encounter Details Date Type Department Care Team Description 09/23/2012 Office Visit [facility] Fallon Brar Phastefaniti s (Primary Dx); Clinic [place] MD Bebeto Abdominal pain; [address] [facility] Streptococcal pharyngitis; [place], [place] [facility] UTI (urinary tract infection) [id number] [facility] [phone] [place] [address] Social History Tobacco Use Types Packs/Day Years [...] documented in this encounter Patient Instructions Patient InstructionsMoFallon harrell MD - 09/23/2012 11:12 AM CDT Images [...] ?? Muffled voice ?? New rash ?? [phone] [facility], [address] [place] [address], [place] [address]. All rights reserved. This information is not [...] necessary, additional treatment may be started. ?? [phone] [facility], [address] [place] [address]. All rights reserved. This information is not [...] the past day. No known strep exposure. ED/ Followup: Facility: [facility] Date of visit: 09/21/12 Reason for [...] Medical/Social/Surgical histories reviewed in [facility] andupdated as appropriate. OBJECTIVE: BP 102/64 Pulse [...] NEG Ketones Urine Negative NEG mg/dL Specific [place] Urine 1.020 1.003 - 1.035 Blood Urine [...] visit: Pharyngitis - Rapid strep screen - ULB-Dawk-XlCrnw-MgHydr-Simeth (FIRST-MOUTHWASH BLM) SUSP; Take 5-10 mLs by mouth as needed. Abdominal pain - UA reflex to Microscopic and Culture - CBC with platelets differential Streptococcal pharyngitis - penicillin G benzathine (BICILLIN L-A) [id number] UNIT/2ML injection; Inject 2 mLs into the [...] encounter: 136 lb(61.689 kg). Fallon Brar MD [facility] documented in this encounter Nursing Notes 09/23/2012 10:00 AM CDT >> HEATHER LEARY Wed September 23, 2012 10:19 AM Patient presents [...] Signature WBC 13.1 (H) 4.0 - 11.0 [place] 10e9/L [facility] RBC Count 3.86 3.8 - 5.2 [facility] Hemoglobin 11.0 (L) 11.7 - 15.7 [place] g/dL [facility] Comment: Reviewed: OK with previous Hematocrit 33.5 (L) 35.0 - 47.0 % [facility] MCV 87 78 - 100 fl [facility] RID [facility] MCH 28.5 26.5 - 33.0 pg [facility] MCHC 32.8 31.5 - 36.5 g/dL [facility] RDW 13.5 10.0 - 15.0 % [facility] Platelet Count 217 150 - 450 10e9/L [facility] Diff Method Automated Method [facility] % Neutrophils 85.0 (H) 40 - 75 % [facility] % Lymphocytes 6.5 (L) 20 - 48 % [facility] % Monocytes 8.2 0 - 12 % [facility] % Eosinophils 0.1 0 - 6 % [facility] % Basophils 0.2 0 - 2 % [facility] Absolute Neutrophil 11.2 (H) 1.6 - 8.3 10e9/L [facility] Absolute Lymphocytes 0.9 0.8 - 5.3 10e9/L [facility] Absolute Monocytes 1.1 0.0 - 1.3 10e9/L [facility] Absolute Eosinophils 0.0 0.0 - 0.7 10e9/L [facility] Absolute Basophils 0.0 0.0 - 0.2 10e9/L [facility] Specimen Anatomical Collection Method Collection Time Receive d Time (Source) Location / / Volume Laterality Blood specimen 09/23/2012 10:25 3 (specimen) AM CDT 10:26 AM CDT Fallon Brar MD LAB - BLOOD ORDERABLES Performing Organization Address City/State/ZIP Code Phon e Number [facility] [id number] [place] [address] [facility] [address] [place] [phone] Urine culture (09/23/2012 10:24 AM CDT) Component Value Ref Test Analysis Performed At [facility] Range Method Time Signature Specimen Midstream Urine [facility] LAB Culture Micro >100,000 colonies/mL Mixed gram negative and positive f pancho [facility] Multiple species present, probable perineal contamination. MICROBIOLOGY Susceptibility testing not routinely done Micro Report FINAL 09/24/2012 [facility] Status MICROBIOLOGY Specimen Anatomical Collection Method Collection Time Receive d Time (Source) Location / / Volume Laterality Urine specimen 09/23/2012 10:24 3 (specimen) AM CDT 10:25 AM CDT Fallon Brar MD LAB - MICRO GENERAL ORDERABL ES Performing Organization Address City/[facility]/ZIP Code Phon e Number [address] [address] [facility] [id number] [place] [id number] [facility] MICROBIOLOGY (ABNORMAL) Urine Microscopic (09/23/2012 10:24 AM CDT) [facility] Method Time Signature WBC Urine O - 2 0 - 2 [place] /HPF [facility] RBC Urine 2-5 (A) 0 - 2 [place] /[facility] Squamous Many (A) FEW /LPF [place] Epithelial [facility] /[facility] Urine CLINIC LAB Bacteria Urine Moderate (A) NEG /HPF [facility] Mucous Urine Present (A) NEG /LPF [facility] Specimen Anatomical Collection Method Collection Time Receive d Time (Source) Location / / Volume Laterality 09/23/2012 10:24 09/23/2012 AM CDT 10:25 AM CDT Fallon Brar MD LAB - URINE ORDERABLES Performing Organization Address [facility]/ZIP Code Phon e Number [address] [phone] [facility] [address] [place] [phone] (ABNORMAL) UA reflex to Microscopic and Culture (09/23/2012 10:24 AM CDT) [facility] Method Time Signature Color Urine Yellow [facility] Appearance Urine Clear [facility] Glucose Urine Negative NEG mg/dL [facility] Bilirubin Urine Negative NEG [facility] Ketones Urine Negative NEG mg/dL [facility] Specific [place] 1.020 1.003 - [place] Urine 1.035 [facility] Blood Urine Moderate (A) NEG [facility] pH Urine 6.0 5.0 - 7.0 [place] pH [facility] Protein Albumin 30 (A) NEG mg/dL [place] Urine [facility] Urobilinogen 1.0 0.2 - 1.0 [place] Urine EU/dL [facility] Nitrite Urine Negative NEG [facility] Leukocyte Trace (A) NEG [place] Esterase Urine [facility] Source Midstream [place] Urine [facility] Specimen Anatomical Collection Method Collection Time Receive d Time (Source) Location / / Volume Laterality Urine specimen 09/23/2012 10:24 3 (specimen) AM CDT 10:25 AM CDT Fallon Brar MD LAB - URINE ORDERABLES Performing Organization Address [facility] Phon e Number [facility] [address] [place] [address] [facility] [address] [place] [address] (ABNORMAL) Rapid strep screen (09/23/2012 10:23 AM CDT) Component Value Ref Test Analysis Performed At [facility] gist Range Method Time Signature Specimen Throat [place] Description [facility] Rapid Strep A POSITIVE: Group [place] Screen A Streptococcal [facility] antigen detected [facility] by immunoassay. (A) Micro Report FINAL 09/23/2012 [place] Status [facility] Specimen Anatomical Collection Method Collection Time Receive d Time (Source) Location / / Volume Laterality Specimen from 09/23/2012 10:23 09/23/2012 throat AM CDT 10:25 AM CDT (specimen) Fallon Brar MD LAB - MICRO GENERAL ORDERABL ES Performing Organization Address City/[facility]/ZIP [facility] Phon e Number [facility] [address] [place] [address] [facility] [address] [place] [address] documented in this encounter Visit Diagnoses Diagnosis Pharyngitis - Primary Acute pharyngitis Abdominal pain Abdominal pain, unspecified site Streptococcal pharyngitis Streptococcal sore throat UTI (urinary tract infection) Urinary tract infection, site not specif ied documented in this encounter Care Teams Supervisor Furnace Process Relationship Specialty Start Date End Date Félix Arteaga MD PCP - General 06/25/05 08/29/14 [facility] [address] [place] [address] documented as of this encounter
--- OUTSIDE RECORDS SUMMARY | 2022-02-16 10:59 | XMS_ITS | Encounter Summary ---
:1975 Author Organization [place] Address [address] [facility] [place] [address] Care Team Providers Name Role Phone Félix Arteaga MD Primary Care Provider + Reason for Visit Reason Onset Date Comments Results 11/23/2010 Encounter Details Date Type Department Care Team Description 11/23/[address] [facility] Molly Lopez MD Results [address] [address] [place] [address] [phone] (Wo rk) Social History Tobacco Use Types [...] unspecified documented in this encounter Care Teams Driving Teacher Relationship Specialty Start Date End Date Félix Arteaga MD PCP - General 06/25/05 08/29/14 [facility] [address] [place] [address] documented as of this encounter
--- OUTSIDE RECORDS SUMMARY | 2022-02-16 10:59 | XMS_ITS | Encounter Summary ---
:1975 Author Organization [place] Address [address] [facility] [place] [address] Care Team Providers Name Role Phone Félix Arteaga MD Primary Care Provider + [facility] Primary Care Provider Susei Naidu NP Primary Care Provider [facility] Primary Care Provider No Ref-Primary, Physician Primary Care Provider [phone] Isis Grace PA-C Unavailable [phone] Isis Grace PA-C Unavailable Reason for Visit Reason Onset Date Comments ER F/U 06/28/2013 ER f/u 06/27/13 Stre ptococcal Pharyngitis, Colic Cramps Encounter Details Date Type Department Care Team Description 06/28/2013 Telephone [facility] Félix Arteaga R F/U (ER f/u 06/27/13 [facility] Redd Baxter MD Streptococcal [address] [facility] AESTHETIC Pharyngitis, Colic [place], [place] [facility] Cramps) [address] [address] [phone] [place], [place] [address] (Wo rk) Social History [...] to call me back. Erica Stone RN NESS INSTRUCTOR Telephone Encounter - Que Mena RN - 06/30/2013 1:11 PM CST ED / Discharge Outreach Protocol Patient Contact Attempt # 1 Was call answered? No. Left message on voicemail with information to call me back. Que Mena RN NESS INSTRUCTOR Telephone Encounter - Ilene Rivas - 06/28/2013 4:54 PM CST Please call patient for ER f/u 06/27/13 Streptococcal Pharyngitis, Colic Cramps. Ilene Rivas. Web Marketing Strategist. NESS INSTRUCTOR documented in this encounter Plan of Treatment Not on filedocumented as of this encounter Visit Diagnoses Not on filedocumented in this encounter Care Teams Share Holder Relationship Specialty Start Date End Date Félix Arteaga PCP - General 06/25/05 Redd Baxter MD [facility] [address] [place] [address] [facility] [place] PCP - General 09/21/1503/17 [facility] [address] [place] [address] Susie Naidu, TIMBER BUYER PCP - General Nurse Practitioner - 03/18/16 12/09/17 [facility] PCP - General 12/10/17 [facility] [id number] [place] [address] [phone] Ref-Primary, PCP - General 03/13/18 09/15/18 Physician Isis Grace PCP - Assigned PCP 08/03/17 06/06/18 J[facility] Edwards [address] [place] [address] Isis Grace Assigned PCP 08/03/17 JEREMY Edwards [address] [place], [place] [phone] documented as of this encounter
--- OUTSIDE RECORDS SUMMARY | 2022-02-16 10:59 | XMS_ITS | Encounter Summary ---
:1975 Author Organization [place] Address [address] [facility] [place] [address] Care Team Providers Name Role Phone Félix [...] Department Care Team Description 12/07/2010 Office Visit [facility] Willard Green MD Menorrhagia (Primary Dx); Clinic [place] [address] Sung Cellulitis [address] [place], [place] [address] [phone] Social History Tobacco Use Types Packs/Day Years [...] for f/u of menorrhagia as well as cmqy-[id number] scratch on the tip of the nose. She has had abnormal precancerous uterine polyps removed, followed by Dr. Bay on referral from Brennan TUTTLE. She has had hx of menorrhagia HIstories [...] or masses and bowel sounds normal SKIN: [id number] scab on tip of right lateral nose. [...] athologist Signature WBC 4.7 4.0 - 11.0 [place] 10e9/L [facility] RBC Count 3.24 (L) 3.8 - 5.2 [facility] 10[facility]12/L [facility] Hemoglobin 8.5 (L) 11.7 - 15.7 [place] g/dL [facility] Comment: Reviewed: OK with previous Results confirmed by repeat test Hematocrit 27.2 (L) 35.0 - 47.0 % [facility] MCV 84 78 - 100 fl [facility] RID [facility] MCH 26.2 (L) 26.5 - 33.0 pg [facility] MCHC 31.3 (L) 31.5 - 36.5 g/dL [facility] RDW 13.6 10.0 - 15.0 % [facility] Platelet Count 286 150 - 450 10e9/L [facility] Specimen Anatomical Collection Method Collection Time Receive d Time (Source) Location / / Volume Laterality Blood specimen 12/07/2010 10:21 1 (specimen) AM CDT 10:24 AM CDT Willard Green MD LAB - BLOOD ORDERABLES Performing Organization Address City/[facility]/ZIP Code Phon e Number [facility] [address] [place] [address] [facility] (ABNORMAL) RETICULOCYTE COUNT (12/07/2010 10:21 AM CDT) [facility] gist Method Time Signature % Retic 2.2 (H) 0.5 - 2.0 [facility] Absolute 72.5 25 - 95 [place] Retic 10e9/L [facility] Retic Method Automated [facility] Specimen Anatomical Collection Method Collection Time Receive d Time (Source) Location / / Volume Laterality Blood specimen 12/07/2010 10:21 1 (specimen) AM CDT 10:24 AM CDT Willard Green MD LAB - BLOOD ORDERABLES Performing Organization Address City/[facility]/ZIP Code Phon e Number [facility] [address] [place], [place] [address] [facility] documented in this encounter Visit Diagnoses Diagnosis Menorrhagia - Primary Excessive or frequent menstruation Cellulitis Cellulitis and abscess of unspecified si te documented in this encounter Care Teams Child And Adolescent Psychologist Relationship Specialty Start Date End Date Félix Arteaga MD PCP - General 06/25/05 08/29/14 [facility] [address] [address] documented as of this encounter
--- OUTSIDE RECORDS SUMMARY | 2022-02-16 10:59 | XMS_ITS | Encounter Summary ---
:1975 Author Organization [place] Address [address] [facility] [place] [address] Care Team Providers Name Role Phone Félix Arteaga MD Primary Care Provider + Encounter Details Date Type Department Care Team Description 12/03/2010 Orders Only [facility] Iro n deficiency anemia [place] [phone] [phone] Social History Tobacco Use Types Packs/Day [...] Signature Hemoglobin 8.3 (L) 11.7 - 15.7 [facility] g/dL [facility] Comment: Results confirmed by repeat sean t Specimen Anatomical Collection Method Collection Time Receive d Time (Source) Location / / Volume Laterality Blood specimen 12/03/2010 6:22 PM 011 6:25 (specimen) CDT PM CDT Molly Padilla MD LAB - BLOOD ORDERABLES Performing Organization Address City/State/ZIP Code Phon e Number [place] [phone] [place] [address] [facility] documented in this encounter Visit Diagnoses Diagnosis Iron deficiency anemia Iron deficiency anemia, unspecified documented in this encounter Care Teams Urinalysis Technician Relationship Specialty Start Date End Date Félix Arteaga MD PCP - General 06/25/05 08/29/14 [facility] [address] [place] [address] documented as of this encounter
--- OUTSIDE RECORDS SUMMARY | 2022-02-16 10:59 | XMS_ITS | Encounter Summary ---
:1975 Author Organization [place] Address [address] [facility] [address] Care Team Providers Name Role Phone Félix Arteaga MD Primary Care Provider + Reason for Visit Reason Comments Urinary Problem frequent urination, 'hot' fe eling, has light cramping feeling, test for bladder infection, weak feeling, had cervical cone biopsy Encounter Details Date Type Department Care Team Description 11/22/2010 Office Visit [facility] Hunter Roman Freque ncsindy of urination Clinic [place] MD and polyuria (Primary [address] [address] [facility] Dx) [place] [address] [phone] Social History Tobacco Use Types Packs/Day Years [...] 11/22/2010 9:45 AM CDT >> PENNY BARRETT [facility] Nov 22, 2010 10:03 AM Patient [...] completed using cuff size: large Penny Barrett [facility] documented in this encounter Plan of [...] athologist Signature WBC 8.2 4.0 - 11.0 [facility] RBC Count 3.31 (L) 3.8 - 5.2 [facility] 10e12/L [facility] Hemoglobin 9.1 (L) 11.7 - 15.7 [facility] g/dL [facility] Comment: Results confirmed by repeat sean t Hematocrit 27.8 (L) 35.0 - 47.0 % [facility] MCV 84 78 - 100 fl [facility] RID [facility] MCH 27.5 26.5 - 33.0 pg [facility] MCHC 32.7 31.5 - 36.5 g/dL [facility] RDW 13.6 10.0 - 15.0 % [facility] Platelet Count 220 150 - 450 10e9/L [facility] Specimen Anatomical Collection Method Collection Time Receive d Time (Source) Location / / Volume Laterality Blood specimen 11/22/2010 10:34 1 (specimen) AM CDT 10:36 AM CDT Hunter Roman MD LAB - BLOOD ORDERABLES Performing Organization Address City/State/ZIP Code Phon e Number [facility] [phone] [place] [address] [facility] (ABNORMAL) UA with Microscopic (11/22/2010 10:33 AM CDT) [facility] Method Time Signature Color Urine Yellow [facility] Appearance Urine Clear [facility] Glucose Urine Negative NEG mg/dL [facility] Bilirubin Urine Negative NEG [facility] Ketones Urine Negative NEG mg/dL [facility] Specific [place] <=1.005 1.003 - [place] Urine 1.035 [facility] pH Urine 6.0 5.0 - 7.0 [place] pH [facility] Protein Albumin Negative NEG mg/dL [place] Urine [facility] Urobilinogen 0.2 0.2 - 1.0 [place] Urine EU/dL [facility] Nitrite Urine Negative NEG [facility] Blood Urine Moderate (A) NEG [facility] Leukocyte Small (A) NEG [place] Esterase Urine [facility] Source Midstream [place] Urine [facility] WBC Urine 2-5 (A) 0 - 2 [place] /HPF [facility] RBC Urine 2-5 (A) 0 - 2 [place] /HPF [facility] Squamous Few FEW /LPF [place] Epithelial /LPF [facility] Bacteria Urine Few (A) NEG /HPF [facility] Specimen Anatomical Collection Method Collection Time Receive d Time (Source) Location / / Volume Laterality Urine specimen 11/22/2010 10:33 1 (specimen) AM CDT 10:35 AM CDT Hunter Roman MD LAB - URINE ORDERABLES Performing Organization Address City/State/ZIP Code Phon e Number [facility] [address] [place] [address] [facility] documented in this encounter Visit Diagnoses Diagnosis Frequency of urination and polyuria - Pr imary Urinary frequency documented in this encounter Care Teams Configuration Specialist Relationship Specialty Start Date End Date Félix Arteaga MD PCP - General 06/25/05 08/29/14 [facility] [address] [place] [address] documented as of this encounter
--- OUTSIDE RECORDS SUMMARY | 2022-02-16 10:59 | XMS_ITS | Encounter Summary ---
:1975 Author Organization [place] Address [address] [facility] [place] [address] Care Team Providers Name Role Phone Félix Arteaga MD Primary Care Provider + Reason for Visit Reason Comments Generalized Body Aches Pharyngitis Encounter Details Date Type Department Care Team Description 06/30/2013 Emergency [facility] Stephen Pozo Streptoc occal pharyngitis (Primary Dx); [facility] Emergency Dep karoline Ng MD Abdominal pain [address] [facility], [place] [address] 54[address] [facility] [phone] [place], [place] [address] (Wo rk) Social History [...] Comments Blood Pressure 120/85 06/30/2013 9:43 PM MUD TRUCKER Pulse - - Temperature 36.6 ??C (97.9 ??F) 06/30/2013 9:43 PM MUD TRUCKER Respiratory Rate 16 06/30/2013 9:43 PM MUD TRUCKER Oxygen Saturation 98% 06/30/2013 9:43 PM MUD TRUCKER Inhaled Oxygen Concentration - - Weight - - Height - - Body Mass Index - - documented in this encounter Discharge Instructions Discharge InstructionsStephen Lopez MD - 06/30/2013 11:31 PM MUD TRUCKER Home Back SP RU CH *ABDOMINAL PAIN, [...] Unexpected vaginal bleeding or missed period ?? [phone] [place] [address]. All rights reserved. This information is not intended as a substitute for professional medical care. Always follow your healthcare professional's instructions. TRUCKER AttachmentsThe following attachments cannot be sent through Care Everywhere. PHARYNGITIS, STREP (PRESUMED) (INDONESIAN)documented in this encounter Medications at Time of [...] tablet 8 hours as needed for nausea traMADol (ULTRAM) 50 MG Take 1-2 tablets 15 tablet 0 201308/20/2013 tablet (50-100 mg) by mouth every 6 hours as needed for pain acetaminophen (TYLENOL) Take 1-2 tablets by 0 12/29/2013 500 MG tablet mouth every 6 hours as needed. docusate sodium 100 MG Take 100 mg by 30 tablet 0 4 09/06/2013 tablet mouth daily ZFL-Hzir-UjElht-MgHydr-Si Take 5-10 mLs by 237 mL 1 [...] mouth daily (with breakfast). fluticasone (FLONASE) 50 [place] 1-2 sprays 1 Package 0 05/0709/06/2013 MCG/ACT [...] behavior is normal. Emergency Department Course Laboratory: [place]: negative CMP: Cr 0.62 (WNL) Potassium 3.3 [...] Strep pharyngitis 034.0 2. Abdominal pain 789.00 ISussy am serving as a scribe on 06/30/2013 at 9:54 PM to personally document services performed by Dr. Lopez based on my observations and the provider's statements to me. Stephen Lopez MD 07/01/132044 TRUCKER Julia Woody RN - 06/30/2013 9:44 PM [...] was seen and evaluated here on Friday. TRUCKER documented in this encounter Plan of Treatment Not on filedocumented as of this encounter Procedures Procedure Name Priority Date/Time Associated Comments Diagnosis CBC WITH PLATELETS & STAT 06/30/2013 10:43 Res ults for this DIFFERENTIAL PM MUD TRUCKER procedure are i n the results section. MONONUCLEOSIS SCREEN STAT 06/30/2013 10:43 Res ults for this PM MUD TRUCKER procedure are i n the results section. COMPREHENSIVE STAT 06/30/2013 10:43 Results fo r this METABOLIC PANEL PM MUD TRUCKER procedure ar e in the results section. documented in this encounter Results Mononucleosis screen (06/30/2013 10:43 PM MUD TRUCKER) [facility] Time Signature Mononucleosis Negative NEG [facility] LAB Specimen Anatomical Collection Method Collection Time Receive d Time (Source) Location / / Volume Laterality Blood specimen 06/30/2013 10:43 4 (specimen) PM MUD TRUCKER 10:48 PM MUD TRUCKER Stephen Lopez MD LAB - BLOOD ORDERABLES Performing Organization Address City/State/ZIP Code Phon e Number M [facility] [address] [place], [place] [address] [facility] (ABNORMAL) Comprehensive metabolic panel (06/30/2013 10:43 PM MUD TRUCKER) Analysis Performed At [facility] logist Time Signature Sodium 140 133 - 144 [place] mmol/L [facility] Potassium 3.3 (L) 3.4 - 5.3 [place] mmol/L [facility] Chloride 99 94 - 109 [place] mmol/L [facility] Carbon Dioxide 29 20 - 32 [place] mmol/L [facility] Anion Gap 12 6 - 17 [place] mmol/L [facility] Glucose 105 (H) 60 - 99 [place] mg/dL [facility] Urea Nitrogen 11 5 - 24 [place] mg/dL [facility] Creatinine 0.62 0.52 - [facility] 1.04 mg/dL [facility] GFR Estimate >90 >60 [place] mL/min/1.[address] LAB GFR Estimate If >90 >60 [place] Black mL/min/1.[address] LAB Calcium 8.7 8.5 - 10.4 [place] mg/dL [facility] Bilirubin Total 1.0 0.2 - 1.3 [place] mg/dL [facility] Albumin 3.8 (L) 3.9 - 5.1 [place] g/dL [facility] Protein Total 7.5 6.8 - 8.8 [place] g/dL [facility] Alkaline 51 40 - 150 [place] Phosphatase U/L [facility] ALT 28 0 - 50 U/L [facility] AST 25 0 - 45 U/L [facility] Specimen Anatomical Collection Method Collection Time Receive d Time (Source) Location / / Volume Laterality Blood specimen 06/30/2013 10:43 4 (specimen) PM MUD TRUCKER 10:48 PM MUD TRUCKER tSephen Lopez MD LAB - BLOOD ORDERABLES Performing Organization Address City/State/ZIP Code Phon e Number M [place] [address] [place] [address] [facility] (ABNORMAL) CBC with platelets differential (06/30/2013 10:43 PM MUD TRUCKER) [facility] gist Method Time Signature WBC 11.8 (H) 4.0 - [place] 11.0 [facility] 10e9/L [facility] RBC Count 3.80 3.8 - 5.2 [place] 10e12/L [facility] Hemoglobin 10.3 (L) 11.7 - [place] 15.7 g/dL [facility] Hematocrit 31.6 (L) 35.0 - [facility] 47.0 % [facility] MCV 83 78 - 100 [facility] MCH 27.1 26.5 - [facility] 33.0 pg [facility] MCHC 32.6 31.5 - [place] 36.5 g/dL [facility] RDW 14.4 10.0 - [facility] 15.0 % [facility] Platelet Count 291 150 - 450 [place] 10e9/L [facility] Diff Method Automated [facility] LAB % Neutrophils 76.8 % [facility] % Lymphocytes 17.3 % [facility] % Monocytes 5.3 % [facility] % Eosinophils 0.2 % [facility] % Basophils 0.2 % [facility] % Immature 0.2 % [place] Granulocytes [facility] Absolute 9.0 (H) 1.6 - 8.3 [place] Neutrophil 10e9/L [facility] Absolute 2.0 0.8 - 5.3 [place] Lymphocytes 10e9/L [facility] Absolute 0.6 0.0 - 1.3 [place] Monocytes 10e9/L [facility] Absolute 0.0 0.0 - 0.7 [place] Eosinophils 10e9/L [facility] Absolute 0.0 0.0 - 0.2 [place] Basophils 10e9/L [facility] Abs Immature 0.0 0 - 0.4 [place] Granulocytes 10e9/L [facility] Specimen Anatomical Collection Method Collection Time Receive d Time (Source) Location / / Volume Laterality Blood specimen 06/30/2013 10:43 4 (specimen) PM MUD TRUCKER 10:48 PM MUD TRUCKER Stephen Lopez MD LAB - BLOOD ORDERABLES Performing Organization Address City/State/ZIP Code Phon e Number [facility] [address] [place], [place] [address] [facility] documented in this encounter Visit Diagnoses Diagnosis Streptococcal pharyngitis - Primary Streptococcal sore throat Abdominal pain Abdominal pain, unspecified site documented in this encounter Care Teams Sports Information Director Relationship Specialty Start Date End Date Félix Arteaga MD PCP - General 06/25/05 08/29/14 [facility] [address] [place] [address] documented as of this encounter
--- OUTSIDE RECORDS SUMMARY | 2022-02-16 10:59 | XMS_ITS | Encounter Summary ---
:1975 Author Organization [place] Address [address] [place] [address] Care Team Providers Name Role Phone Félix Arteaga MD Primary Care Provider + Encounter Details Date Type Department Care Team Description 12/03/2010 Abstract M [facility] Yosi Arteaga [place] [id number] [place] [address] [address] [facility] [address] [place], [place] [id number] (Wo rk) Social History Tobacco Use Types [...] on filedocumented in this encounter Care Teams Surgical Supply Assistant Relationship Specialty Start Date End Date Félix Arteaga MD PCP - General 06/25/05 08/29/14 [facility] [address] [place] [address] documented as of this encounter
--- OUTSIDE RECORDS SUMMARY | 2022-02-16 10:59 | XMS_ITS | Encounter Summary ---
:1975 Author Organization [place] Address [address] [facility] [place] [address] Care Team Providers Name Role Phone Félix Arteaga MD Primary Care Provider + Reason for Visit Reason Comments Imm/Inj Tdap Encounter Details Date Type Department Care Team Description 12/03/2010 Allied Health/Nurse Health [facility] Imm/Inj (Tdap) Visit [address] [address] Social History Tobacco Use Types Packs/Day Years Used Date Smoking Tobacco: Never Smokeless Tobacco: Never Alcohol Use Standard Drinks/Week Comments Yes 0 (1 standard drink = 0.6 oz pure alcoho l) rare Sex Assigned at Date Recorded Not on file documented as of this encounter Nursing Notes 12/03/2010 5:45 PM CDT >> HERANNDEZ GIL Mon Dec 03, 2010 6:24 PM Patient presents with: Imm/Inj - Tdap Initial There were no vitals taken for this visit. Estimated Body mass index is 24.93 kg/(m^2) as calculated from the following: Height as of 11/22/10: 5' 3.5(1.613 m). Weight as of 11/22/10: 143 lb(64.864 kg). BP completed using cuff size NA (Not Taken) Health Maintenance Updated with Patient: Yes Tobacco Verified: Yes Payor/Verify RX Benefits/Reconcile Disp Completed if allowed: Yes Family History Updated: Yes Immunizations Up to Date: YES MNVFC does apply for the following reason: [place] [facility] [place] (MHCP) enrollee:RADHA, CARLOS, [place], or PMAP Mychart Offered: Yes Lexy Gil CMA documented in this encounter Plan of Treatment Not on filedocumented as of this encounter Visit Diagnoses Diagnosis Need for prophylactic vaccination and in oculation against other combinations of diseases - Primary documented in this encounter Care Teams Produce Team Member Relationship Specialty Start Date End Date Félix Arteaga MD PCP - General 06/25/05 08/29/14 [facility] WE[facility] [address] [place] [address] documented as of this encounter
--- OUTSIDE RECORDS SUMMARY | 2022-02-16 10:59 | XMS_ITS | Encounter Summary ---
:1975 Author Organization [place] Address [address] [facility] [place] [address] Care Team Providers Name Role Phone Félix Arteaga MD Primary Care Provider + Reason for Visit Reason Onset Date Comments Pt. Information/instruction 12/17/2010 Encounter Details Date Type Department Care Team Description 12/17/2010 Telephone [facility] Elissa Hurt MD Pt. [facility] Information/instruction [address] [address] [place] [address] (Wo rk) Social History Tobacco Use Types Packs/Day Years Used Date Smoking Tobacco: Never Smokeless Tobacco: Never Alcohol Use Standard Drinks/Week Comments Yes 0 (1 standard drink = 0.6 oz pure alcoho l) rare Sex Assigned at Date Recorded Not on file documented as of this encounter Miscellaneous Notes Telephone Encounter - Elissa Hurt MD - 12/17/2010 2:54 PM CDT OpenRoute message sent to pt Elissa Hurt MD documented in this encounter Plan of Treatment Not on filedocumented as of this encounter Visit Diagnoses Not on filedocumented in this encounter Care Teams Trauma Program Manager Relationship Specialty Start Date End Date Félix Arteaga MD PCP - General 06/25/05 08/29/14 [facility] [address] [place] [address] documented as of this encounter
--- OUTSIDE RECORDS SUMMARY | 2022-02-16 10:59 | XMS_ITS | Encounter Summary ---
:1975 Author Organization [place] Address [address] [place] [address] Care Team Providers Name Role Phone Félix Arteaga MD Primary Care Provider + Reason for Visit Reason Onset Date Comments ER F/U 05/08/2012 was seen Riley Alves R on 05/07/2012 for acute uri, and acute otitis media Encounter Details Date Type Department Care Team Description 05/08/2012 Telephone [facility] Félix Arteaga R F/U (was seen [facility] [place] Redd Baxter MD [facility] ER on [id number] [place] [address] 05/07/2012 for acute [place], [place] WELLNESS uri, and acute otitis [phone] [address] media) [phone] [place], [place] [address] (Wo rk) Social History [...] talk right now I will call back ECTIONAL CASE MANAGER Telephone Encounter - Romelia Awan - 05/08/2012 10:54 AM CST Please call patient for ED/UC/IP follow-up Romelia Awan/ELEN ECTIONAL CASE MANAGER documented in this encounter Plan of Treatment Not on filedocumented as of this encounter Visit Diagnoses Not on filedocumented in this encounter Care Teams Slab Tripper Relationship Specialty Start Date End Date Félix Arteaga MD PCP - General 06/25/05 08/29/14 [facility] [address] [place] [address] documented as of this encounter
--- OUTSIDE RECORDS SUMMARY | 2022-02-16 11:00 | XMS_ITS | Encounter Summary ---
:1975 Author Organization [place] Address [address] [facility] [place] [address] Care Team Providers Name Role Phone Félix Arteaga MD Primary Care Provider + Reason for Visit Reason Comments UTI RN protocol-UTI Encounter Details Date Type Department Care Team Description 05/30/2010 Allied Health/Nurse [facility] UTI (RN protocol-UTI) Visit Clinic [address], [address] [place] [phone] Social History Tobacco Use Types Packs/Day Years Used Date Smoking Tobacco: Never Alcohol Use Standard Drinks/Week Comments Not Asked [...] by: Nurse Triage . Janelle Meraz RN LE HOME SET UP PERSON documented in this encounter Plan of Treatment Not on filedocumented as of this encounter Procedures Procedure Name Priority Date/Time Associated Comments Diagnosis UA MACROSCOPIC WITH Routine 05/30/2010 2:04 PM Dysuria Re sults for this REFLEX TO MICRO MOBILE HOME SET UP PERSON procedure ar e in the results section. documented in this encounter Results UA macroscopic with reflex to micro (05/30/2010 2:04 PM MOBILE HOME SET UP PERSON) [facility] gist Method Time Signature Color Urine Yellow [facility] Appearance Urine Clear [facility] Glucose Urine Negative NEG mg/dL [facility] Bilirubin Urine Negative NEG [facility] Ketones Urine Negative NEG mg/dL [facility] Specific [place] 1.025 1.003 - [place] Urine 1.035 [facility] Blood Urine Negative NEG [facility] pH Urine 5.0 5.0 - 7.0 [place] pH [facility] Protein Albumin Negative NEG mg/dL [place] Urine [facility] Urobilinogen 0.2 0.2 - 1.0 [place] Urine EU/dL [facility] Nitrite Urine Negative NEG [facility] Leukocyte Negative NEG [place] Esterase Urine [facility] Source Midstream [place] Urine [facility] Specimen Anatomical Collection Method Collection Time Receive d Time (Source) Location / / Volume Laterality Urine specimen 05/30/2010 2:04 PM 011 2:05 (specimen) MOBILE HOME SET UP PERSON PM MOBILE HOME SET UP PERSON Félix Arteaga MD LAB - URINE [place] Performing Organization Address City/State/ZIP Code Phon e Number [facility] [place] [address] [facility] documented in this encounter Visit Diagnoses Diagnosis Dysuria - Primary documented in this encounter Care Teams Ager Tender Relationship Specialty Start Date End Date Félix Arteaga MD PCP - General 06/25/05 08/29/14 [facility] [address] [place] [address] documented as of this encounter
--- OUTSIDE RECORDS SUMMARY | 2022-02-16 11:00 | XMS_ITS | Encounter Summary ---
:1975 Author Organization [place] Address [address] [facility] [place] [address] Care Team Providers Name Role Phone Félix Arteaga MD Primary Care Provider + Encounter Details Date Type Department Care Team Description 10/18/2010 [facility] Pathology [facility] Results MD [place]asha [address] [place] [address] (Wo rk) Social History Tobacco [...] Name Priority Date/Time Associated Diagnosis Comme [facility] SURGICAL PATHOLOGY Routine 10/18/2010 12:00 AM Re sults for this EXAM CDT procedure are i n the results section. documented in this encounter Results Surgical pathology exam (10/18/2010 12:00 AM CDT) Component Value Ref Test Analysis Performed At [facility] Range Method Time Signature Copath Report Patient Name: COURTNEY LIZAMA MR#: [id number] Specimen #: [id number] Collected: 10/18/2010 Received: 10/18/2010 Reported: 10/19/2010 13:57 [...] 0.8 cm. Entirely submitted in two cassettes. ??[place]/mily MICROSCOPIC: A. ??There are numerous detached fragments of high grade dys plastic squamous epithelium. ??Because the fragments are detached an d underlying stroma is not present to evaluate for the presence for absen ce of invasion, they represent at least SAMY-3. ??The features woul d correlate with the previous ASC-H Pap. from Sep, 2010 ([id number]). B. ??Microscopic evaluation was performed. C. ??There is proliferative endometrium and basalis. ??A sma ll amount of endometrial-myometrial junction is present. ??Diagnostic shea yp or hyperplastic changes are not identified. ??Intermixed with t he sample are portions of endocervical tissue with fragments of detached i ntermixed high grade dysplastic squamous epithelium showing features s imilar to that seen in the ECC sample. Maíra 10-19-10 TESTING LAB LOCATION: [address] [place], [place] ??[address] COLLECTION SITE: Client: [facility] Location: SDS (R) Specimen (Source) Anatomical Collection Method Collection Time Re ceived Time Location / / Volume Laterality 10/18/2010 10/18/2010 1:18 PM CDT [place] [facility] Performing Organization Address City/State/ZIP Code Phon e Number [place] documented in this encounter Visit Diagnoses Not on filedocumented in this encounter Care Teams Ultimate Hoops Referee Relationship Specialty Start Date End Date Félix Arteaga MD PCP - General 06/25/05 08/29/14 [facility] [address] [place] [address] documented as of this encounter
--- OUTSIDE RECORDS SUMMARY | 2022-02-16 11:00 | XMS_ITS | Encounter Summary ---
:1975 Author Organization [place] Address [address] [facility] [place] [address] Care Team Providers Name Role Phone Félix Arteaga MD Primary Care Provider + Reason for Visit Reason Comments Previsit LMX1 11/07 NRK Pre-Op Exam ovarian biopsy Consult colonoscopy Encounter Details Date Type Department Care Team Description 11/14/2010 Office Visit [facility] Sean Ernst, Preop g eneral physical Clinic [place] MD exam (Primary Dx) [address] [address] [phone] Social History Tobacco Use Types Packs/Day Years [...] documented in this encounter Progress Notes Valerie Garrett - 11/14/2010 3:58 PM CDT [address] [address] PRE-OP EVALUATION: Today's date: 11/14/2010 Alyssa Aguillon (: 1975) presents for pre-operative evaluation assessment as requested by Dr. Grissom She requires evaluation and anesthesia risk assessment prior to undergoing surgery/procedure for treatment of . Proposed procedure: *cone biiopsy Date of Surgery/ Procedure: 11/19 Time of Surgery/ Procedure: 7:30am Hospital/Surgical Facility: [facility] Primary Physician:Chandler Type of Anesthesia Anticipated: General [...] ASCUS-H, referred for colp, plans f/u with [facility] PRIMARY CLINICIAN ??? Ovarian cyst [620.2S] 09/24/2010 ??? Menorrhagia [...] is provided to requesting physician. Preop Guidelines [facility] [id number] [place] [address] documented in this encounter Nursing Notes 11/14/2010 4:00 PM CDT >> VALERIE Bolaños Nov 14, 2010 4:19 PM Patient presents with: Previsit - LMX1 7/ NRK Pre-Op Exam - ovarian biopsy Consult - colonoscopy Initial BP 110/68 Pulse 82 Temp(Src) 98 ??F (36.7 ??C) (Oral) Wt 143 lb (64.864 kg) SpO2 99%BMIHIS@ BP completed using cuff size regular [facility] Arm Health Maintenance Updated with Patient:Yes Tobacco Verified: Yes Payor/Verify RX Benefits/Reconcile Disp Completed if allowed: Yes Family History Updated: Yes Immunizations Up to Date: yes Mychart Offered: Yes Valerie Garrett MA documented in this encounter Plan of [...] Signature Hemoglobin 11.1 (L) 11.7 - 15.7 [facility] g/dL [facility] Specimen Anatomical Collection Method Collection Time Receive d Time (Source) Location / / Volume Laterality Blood specimen 11/14/2010 4:46 PM 011 4:51 (specimen) CDT PM CDT Sean Ernst MD LAB - BLOOD ORDERABLES Performing Organization Address City/State/ZIP Code Phon e Number [facility] [address] [place] [address] [facility] documented in this encounter Visit Diagnoses Diagnosis Preop general physical exam - Primary Other specified pre-operative examinatio n documented in this encounter Care Teams Melt Superintendant Relationship Specialty Start Date End Date Félix Arteaga MD PCP - General 06/25/05 08/29/14 [facility] [address] [place] [address] documented as of this encounter
--- OUTSIDE RECORDS SUMMARY | 2022-02-16 11:00 | XMS_ITS | Encounter Summary ---
:1975 Author Organization [place] Address [address] [facility] [place] [address] Care Team Providers Name Role Phone Félix Arteaga MD Primary Care Provider + Encounter Details Date Type Department Care Team Description 08/09/2009 Results Only [facility] Valerie Aj, Hospital Results EMERGENCY PHYSIC [place] [address] [place] [address] (Wo rk) Social History Tobacco Use Types [...] CT SCAN ABDOMEN/PELVIS (08/09/2009 9:45 PM CDT) Anatomical Region Laterality Modality Other Specimen (Source) Anatomical Collection Method Collection Time Re ceived Time Location / / Volume Laterality 08/09/2009 9:45 PM CDT Impressions 08/09/2009 11:[address] ABDOMEN/PELVIS WITH [...] hernia. Valerie Aj MD [employer] documented in this encounter Visit Diagnoses Not on filedocumented in this encounter Care Teams Forest Landscape Ecology Professor Relationship Specialty Start Date End Date Félix Arteaga MD PCP - General 06/25/05 08/29/14 [facility] Rain WELLNESS [address] [place] [address] documented as of this encounter
--- OUTSIDE RECORDS SUMMARY | 2022-02-16 11:00 | XMS_ITS | Encounter Summary ---
:1975 Author Organization [place] Address [address] [facility] [place] [address] Care Team Providers Name Role Phone Félix Arteaga MD Primary Care Provider + Encounter Details Date Type Department Care Team Description 09/21/2008 Emergency room [facility] Results MD [place] [address] Social History Tobacco Use Types Packs/Day Years Used Date Smoking Tobacco: Never Alcohol Use Standard Drinks/Week Comments Not Asked 0 (1 standard drink = 0.6 oz pure alcoho l) Sex Assigned at Date Recorded Not on file documented as of this encounter Progress Notes Interface, Machine Tool Designer - 10/08/2008 2:13 PM CDT FINAL CHIEF [...] no medication prescribed and/or use of an idbl-yqq-vxufqkz medication in recent days. She is under [...] In addition, the patient is employed in [employer] school program, denying tobacco and problem drug use. [...] PERRY MD MT: [id number] Name: COURTNEY LIZAMA Account: [id number] : 1975 Visit Date: 09/21/2008 Document: [id number] documented in this encounter Plan of Treatment Not on filedocumented as of this encounter Visit Diagnoses Not on filedocumented in this encounter Care Teams Volunteer Services Specialist Relationship Specialty Start Date End Date Félix Arteaga MD PCP - General 06/25/05 08/29/14 [facility] [address] [place] [address] documented as of this encounter
--- OUTSIDE RECORDS SUMMARY | 2022-02-16 11:00 | XMS_ITS | Encounter Summary ---
:1975 Author Organization [place] Address [address] [facility] [place] [address] Care Team Providers Name Role Phone Félix Arteaga MD Primary Care Provider + Encounter Details Date Type Department Care Team Description 12/14/2009 Hospital Pathology [facility] Luis E Mtz [facility] Results [address] [facility] [address] [place], [place] [address] (Wo rk) Social History [...] Name Priority Date/Time Associated Diagnosis Comme nts CL AFF SURGICAL Routine 12/14/2009 12:00 AM Resul ts for this PATHOLOGY CDT procedure are i n the results section. documented in this encounter Results Hospital - SURGICAL PATHOLOGY (12/14/2009 12:00 AM CDT) Component Value Ref Test Analysis Performed At [facility] Range Method Time Signature Copath Report Patient Name: COURTNEY LIZAMA MR#: [id number] Specimen #: [id number] Collected: 12/14/2009 Received: 12/15/2009 Reported: 12/18/2009 18:03 Ordering Phy(s): LUIS E MTZ Additional Phy(s): FÉLIX ARTEAGA SPECIMEN(S): Appendix FINAL DIAGNOSIS: Appendix - Acute suppurative appendicitis. Electronically signed out by: Chon Vasquez M.D. CLINICAL HISTORY: Appendicitis. GROSS: The specimen, labeled appendix, consists of an appendix th at measures 5.5 cm in length by up to 0.9 cm in diameter which is distal . ??There is attached mesoappendix. ??There is a staple line across the p roximal margin that is about 2.2 cm and another staple line on a por tion of mesoappendix that is about 3.7 cm. ??The outer surfaces show prominent congested vessels and do not exhibit definite exudate. ??Jus t the proximal lumen shows some dilatation. ??Multiple representat debi sections are embedded in two cassettes with distal longitudinal and m ost proximal cross section in cassette #1. ??[place]/mily MICROSCOPIC: The longitudinal distal sections show suppurative appendicit is and the lumen is filled with suppurative exudate and shows ulceratio n of much of the mucosa. ??There is fibrinopurulent exudate on some outer surfaces with a mixed chronic and acute subserosal inflammation. ??Th e cross sections of the mid portions and proximal areas show the marisela e basic features with more intact mucosa and less inflammation proxi cara. [place]/mily /12-18-09 TESTING LAB LOCATION: [address] ??[id number] COLLECTION SITE: Client: [facility] Location: SDS (R) Specimen (Source) Anatomical Collection Method Collection Time Re ceived Time Location / / Volume Laterality 12/14/2009 12/15/2009 8:33 AM CDT Luis E Mtz MD LABORATORY Performing Organization Address City/State/ZIP Code Phon e Number [place] documented in this encounter Visit Diagnoses Not on filedocumented in this encounter Care Teams Centrifugal Spinner Relationship Specialty Start Date End Date Félix Arteaga MD PCP - General 06/25/05 08/29/14 [facility] [address] [place] [address] documented as of this encounter
--- OUTSIDE RECORDS SUMMARY | 2022-02-16 11:00 | XMS_ITS | Encounter Summary ---
:1975 Author Organization [place] Address [address] [facility] [place] [address] Care Team Providers Name Role Phone Félix Arteaga MD Primary Care Provider + Encounter Details Date Type Department Care Team Description 10/18/2010 Operative Report [facility] Snow Rocha (Gas Main And Line Fitter) [facility] MD Sasha Results [address] [place] [address] Social History Tobacco Use Types [...] Recurrent abdominal pain. SURGEON: Snow Buckner M.D. VICE PRESIDENT OF CONSULTING SERVICES: CHEIKH Cho ANESTHESIA: General endotracheal. PROCEDURES: 1. [...] and a Marcelo catheter was placed sterilely. [place] speculum was placed in the vagina and dilute acetic acid placed over the cervix. Colposcopy then performed for the above-noted findings. ECC performed sharply and ring forceps used to send the mucus to pathology. Lugol's solution was then placed in the upper vagina and cervix for the above-noted findings. A Biomodaer biopsy forceps was used to obtain 2 [...] case. Electronically signed on 11/01/2010 20:04 by NSOW BUCKNER MD MT: [id number] Name: COURTNEY LIZAMA Account: [id number] : 1975 Procedure Date: 10/18/2010 Document: [id number] documented in this encounter Plan of Treatment Not on filedocumented as of this encounter Visit Diagnoses Not on filedocumented in this encounter Care Teams Early Childhood Services Coordinator Relationship Specialty Start Date End Date Félix Arteaga MD PCP - General 06/25/05 08/29/14 [facility] [place] [facility] [address] [place] [address] documented as of this encounter
--- OUTSIDE RECORDS SUMMARY | 2022-02-16 11:00 | XMS_ITS | Encounter Summary ---
:1975 Author Organization [place] Address [address] [facility] [place] [address] Care Team Providers Name Role Phone Félix Arteaga MD Primary Care Provider + Reason for Visit Reason Comments URI Encounter Details Date Type Department Care Team Description 04/18/2010 Office Visit [facility] Abebe Garcia (Primary Dx); Clinic [place] JEREMY Loredo Viral syndrome [address] [facility] [id number] [place] [address] [place] [address] Social History Tobacco Use Types Packs/Day Years Used Date Smoking Tobacco: Never Alcohol Use Standard Drinks/Week Comments Not Asked 0 (1 standard drink = 0.6 oz pure alcoho l) Sex Assigned at Date Recorded Not on file documented as of this encounter Last Filed Vital Signs Vital Sign Reading Time Taken Comments Blood Pressure 108/70 04/18/2010 9:01 AM TOOL LAPPER HAND Pulse 102 04/18/2010 9:01 AM TOOL LAPPER HAND Temperature 36.7 ??C (98.1 ??F) 04/18/2010 9:01 AM TOOL [facility] Respiratory Rate 20 04/18/2010 9:01 AM TOOL [facility] Oxygen Saturation 100% 04/18/2010 9:01 AM TOOL LAPPER HAND Inhaled Oxygen Concentration - - Weight 64 kg (141 lb) 04/18/2010 9:01 AM TOOL LAPPER HAND Height - - Body Mass Index 24.59 05/22/2009 4:24 PM TOOL LAPPER HAND documented in this encounter Patient Instructions Patient InstructionsAbebe Garcia - 04/18/2010 9:22 AM CST Salt water gargles OTC pain meds as indicated Can stop antibiotics when feeling better if negative throat culture Finish antibiotics if + for strep Call or return if symptoms worsen LAPPER HAND documented in this encounter Progress Notes Abebe Garcia - 04/18/2010 9:01 AM CST SUBJECTIVE: Alyssa Aguillon is a 34 year old female presenting with a chief complaint of Upper Respiratory/ENTsymptoms: Symptoms include: nasal congestion, rhinorrhea, cold symptoms, cough , sore throat, facial pain/pressure, hoarse voice and chest congestion. Pt also pain on left side of chest, which she had about a month ago, painful to breathe in. She had this evaluated and was told it was stress related. Onset how long ago? Yesterday Course of illness is: worsening. Severity: severe Treatment measures tried: OTC meds. Predisposing factors include strep exposure. 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 She has been sick for 2 days. A lot of throat pain, chest wall pain and pnd. She also has myalgia, fever and chills. She has been admitted for strep in the past. She gargled, used Chloroseptic and Advil She missed school today. She gets about 2 sore throats per year. ROS: 5-Point Review of Systems Negative-- Except as stated above. OBJECTIVE BP 108/70 Pulse 102 Temp(Src) 98.1 ??F (36.7 ??C) (Oral) Resp 20 Wt 141 lb (63.957 kg) SpO2 100% GENERAL: Tired, uncomfortable. Alert and oriented x 3. HEENT:No pharyngeal erythema. Tonsils 2+ and cryptic. Sclera, lids and conjunctiva are normal. Nose and ears clear. Hoarse NECK: Mild adenopathy. CHEST: clear, no wheezing or rales. Normal symmetric air entry throughout both lung gould. No chestwall deformities or tenderness. HEART: S1 and S2 normal, no murmurs, clicks, gallops or rubs. Regular rate and rhythm. SKIN: Only benign skin findings. No unusual rashes or suspicious skin lesions noted. Nails appear normal. RST - negative. 24hr culture pending. ASSESSMENT/PLAN 462Y PHARYNGITIS (primary encounter diagnosis) Comment: Plan: Rapid strep screen, Beta strep group A culture, acetaminophen-codeine (TYLENOL #3) 300-30 MG per tablet 079.99B Viral syndrome Comment: LAPPER HAND documented in this encounter Plan of Treatment Not on filedocumented as of this encounter Procedures Procedure Name Priority Date/Time Associated Diagnosis Comme nts RAPID STREP SCREEN Routine 04/18/2010 9:11 AM Pharyngitis Res ults for this THROAT SWAB TOOL LAPPER HAND procedure are i n the results section. BETA HEMOLYTIC Routine 04/18/2010 9:11 AM Pharyngitis Results for this STREP GROUP A TOOL [facility]PER [facility] procedure are in CULTURE the results section. documented in this encounter Results Beta strep group A culture (04/18/2010 9:11 AM TOOL LAPPER HAND) Component Value Ref Test Analysis Performed At [facility] Method Time Signature Specimen Throat [facility] LAB Culture Micro No Beta [place] Streptococcus [facility] Micro Report FINAL 04/20/2010 [place] Status [facility] Specimen Anatomical Collection Method Collection Time Receive d Time (Source) Location / / Volume Laterality Specimen from 04/18/2010 9:11 AM 04/18/20 10 9:12 throat TOOL [facility] AM TOOL LAPPER [facility] (specimen) Abebe Garcia PA-C LAB - MICRO GENERAL ORDERAB LES Performing Organization Address City/State/ZIP Code Phon e Number [facility] [address] [place] [address] [facility] Rapid strep screen (04/18/2010 9:11 AM TOOL LAPPER HAND) Component Value Ref Test Analysis Performed At [facility] Method Time Signature Specimen Throat [place] Description [facility] Rapid Strep A NEGATIVE: No Group A strepto coccal antigen detected by immunoassay, await [place] Screen culture report. [facility] Micro Report FINAL 04/18/2010 [place] Status [facility] Specimen Anatomical Collection Method Collection Time Receive d Time (Source) Location / / Volume Laterality Specimen from 04/18/2010 9:11 AM 04/18/20 10 9:12 throat TOOL LAPPER [facility] AM TOOL [facility] (specimen) Abebe Garcia PA-C LAB - MICRO GENERAL ORDERAB LES Performing Organization Address City/State/ZIP Code Phon e Number [facility] [address] [place], [place] [address] [facility] documented in this encounter Visit Diagnoses Diagnosis Pharyngitis - Primary Acute pharyngitis Viral syndrome Unspecified viral infection, in conditio ns classified elsewhere and of unspecified site documented in this encounter Care Teams Oscillograph Technician Relationship Specialty Start Date End Date Félix Arteaga MD PCP - General 06/25/05 08/29/14 [facility] [address] [place] [address] documented as of this encounter
--- OUTSIDE RECORDS SUMMARY | 2022-02-16 11:00 | XMS_ITS | Encounter Summary ---
:1975 Author Organization [place] Address [address] [facility] [place] [address] Care Team Providers Name Role Phone Félix Arteaga MD Primary Care Provider + Reason for Visit Reason Comments URI Symptoms started on : headache,nasal congestion, chills and bodyaches. Encounter Details Date Type Department Care Team Description 12/19/2008 Office Visit [facility] Wayne Cesar MD Acute [facility] [place] [id number] [place] [address] Sinusitis (Primary Dx) [place], [place] [address] [address] [place], [place] [phone] [address] (Work) [phone] Social History Tobacco Use Types Packs/Day Years [...] Primary documented in this encounter Care Teams Patient Services Specialist Relationship Specialty Start Date End Date Félix Arteaga MD PCP - General 06/25/05 08/29/14 [facility] [address] [place] [address] documented as of this encounter
--- OUTSIDE RECORDS SUMMARY | 2022-02-16 11:00 | XMS_ITS | Encounter Summary ---
:1975 Author Organization [place] Address [address] [facility] [place] [address] Care Team Providers Name Role Phone Félix Arteaga MD Primary Care Provider + Encounter Details Date Type Department Care Team Description [facility]/14[facility]2009 [facility] Results EMERGENCY PHYSI XIOMY UREÑA [address] [place], [place] [address] (Wo rk) Social History [...] CT SCAN ABDOMEN/PELVIS (12/14/2009 6:07 PM CDT) Anatomical Region Laterality Modality Other Specimen (Source) Anatomical Collection Method Collection Time Re ceived Time Location / / Volume Laterality 12/14/2009 6:07 PM CDT Impressions 12/14/2009 9:[address] ABDOMEN/PELVIS WITH CONTRAST ?? Dec [id number] [...] mucocele. Vidal Ochoa MD SPECIAL IMAGING STUDIES documented in this encounter Visit Diagnoses Not on filedocumented in this encounter Care Teams Process Worker Relationship Specialty Start Date End Date Félix Arteaga MD PCP - General 06/25/05 08/29/14 [facility]LL[facility] [address] [place] [address] documented as of this encounter
--- OUTSIDE RECORDS SUMMARY | 2022-02-16 11:00 | XMS_ITS | Encounter Summary ---
:1975 Author Organization [place] Address [address] [facility] [place] [address] Care Team Providers Name Role Phone Félix Arteaga MD Primary Care Provider + Encounter Details Date Type Department Care Team Description 04/05/2009 Historic Results INTERFACED REPORT Lobo Barth MD [facility] [address] [facility] [address] [place], [place] [address] (Wo rk) Social History Tobacco Use Types [...] STAT 04/05/2009 1:15 PM Results for this CROP ROLLER procedure are i n the results section. ROUTINE UA WITH STAT 04/05/2009 1:15 PM Result s for this MICROSCOPIC CROP ROLLER procedure are i n the results section. documented in this encounter Results (ABNORMAL) Routine UA with microscopic (04/05/2009 1:15 PM CROP ROLLER) [facility] Method Time Signature Source Midstream [facility] Urine Color Urine Light Yellow [facility] Appearance Urine Clear [facility] Glucose Urine Negative NEG mg/dL [facility] Bilirubin Urine Negative NEG [facility] Ketones Urine Negative NEG mg/dL [facility] Specific [place] 1.009 1.003 - [facility] Urine 1.035 Blood [...] Volume Laterality 04/05/2009 1:15 PM 9 1:42 CROP ROLLER PM CROP ROLLER Dirk Barth MD LAB - URINE ORDERABLES Performing Organization Address City/State/ZIP Code Phon e Number [facility] HCG qualitative urine (04/05/2009 1:15 PM CROP ROLLER) P athologist Signature HCG Qual Urine Negative NEG [facility] Comment: This test provides a presumptive diagno sis of or non-. A confirmed diagnosis should on ly be made by a physician after all clinical and laboratory findings have b een evaluated. Specimen Anatomical Collection Method Collection Time Receive d Time (Source) Location / / Volume Laterality 04/05/2009 1:15 PM 9 1:42 CROP ROLLER PM CROP ROLLER Dirk Barth MD LAB - URINE ORDERABLES Performing Organization Address City/State/ZIP Code Phon e Number [place] documented in this encounter Visit Diagnoses Not on filedocumented in this encounter Care Teams Domestic Laundry Worker Relationship Specialty Start Date End Date Félix Arteaga MD PCP - General 06/25/05 08/29/14 [facility] [address] [place] [address] documented as of this encounter
--- OUTSIDE RECORDS SUMMARY | 2022-02-16 11:00 | XMS_ITS | Encounter Summary ---
:1975 Author Organization [place] Address [address] [facility] [place] [address] Care Team Providers Name Role Phone Félix Arteaga MD Primary Care Provider + Encounter Details Date Type Department Care Team Description 09/24/2010 Medical Correspondence [facility] Jonathan Hurt MD [address] [address] [place], [place] [id number] Social History Tobacco Use Types Packs/Day Years Used Date Smoking Tobacco: Never Alcohol Use Standard Drinks/Week Comments Yes 0 (1 standard drink = 0.6 oz pure alcoho l) rare Sex Assigned at Date Recorded Not on file documented as of this encounter Plan of Treatment Not on filedocumented as of this encounter Visit Diagnoses Not on filedocumented in this encounter Care Teams Mainspring Winder Relationship Specialty Start Date End Date Félix Arteaga MD PCP - General 06/25/05 08/29/14 [facility] [address] [place] [address] documented as of this encounter
--- OUTSIDE RECORDS SUMMARY | 2022-02-16 11:00 | XMS_ITS | Encounter Summary ---
:1975 Author Organization [place] Address [address] [facility] [address] Care Team Providers Name Role Phone Félix Arteaga MD Primary Care Provider + Encounter Details Date Type Department Care Team Description 10/18/2010 Hospital Laboratory [facility] Results MD Sasha [address] [place] [address] (Wo rk) Social History Tobacco [...] athologist Signature HCG Qual Urine Negative NEG [facility] LAB Specimen Anatomical Collection Method Collection Time Receive d Time (Source) Location / / Volume Laterality 10/18/2010 9:10 AM 1 9:15 CDT AM CDT Snow Rocha MD LAB - URINE ORDERABLES Performing Organization Address City/State/ZIP Code Phon e Number [facility] [address] [place], [place] [address] [facility] documented in this encounter Visit Diagnoses Not on filedocumented in this encounter Care Teams Irrigationist Relationship Specialty Start Date End Date Félix Arteaga MD PCP - General 06/25/05 08/29/14 [facility] [address] [place] [address] documented as of this encounter
--- OUTSIDE RECORDS SUMMARY | 2022-02-16 11:00 | XMS_ITS | Encounter Summary ---
:1975 Author Organization [place] Address [address] [facility] [place] [address] Care Team Providers Name Role Phone Félix [...] as of this encounter Progress Notes Interface, Electron Beam Photo Mask Technician - 07/20/2010 10:06 PM CDT Discharge Planning - Discharge From: [facility] - Patient Care Unit: Peds - PCU [...] on filedocumented in this encounter Care Teams Furniture Removalist'S Assistant Relationship Specialty Start Date End Date Félix Arteaga MD PCP - General 06/25/05 08/29/14 [facility] [address] [place] [address] documented as of this encounter
--- OUTSIDE RECORDS SUMMARY | 2022-02-16 11:00 | XMS_ITS | Encounter Summary ---
:1975 Author Organization [place] Address [address] [facility] [place] [address] Support Name Relationship Address Phone Leanne Conley Unavailable [phone] [place] [address] Team Providers Name Role Phone Félix Arteaga MD Primary Care Provider + Reason for Referral Referral not Required - Closed Specialty Diagnoses / Procedures Referred By Contact Refer red To Contact Diagnoses Heavy periods Anemia Farhan Badillo, OBSTETRICS & GYNECOLOGY PA-C SPEC [facility] [address] [place] [address] [facility] [address] [address] [place] [address] Referral ID Status Reason Start Date Expiration Date Visits Requ ested Visits Authorized [id number] Closed 08/03/2010 01/30/2011 1 1 eferral not Required - Closed Specialty Diagnoses / Procedures Referred By Contact Refer red To Contact Diagnoses Chest pain Farhan Badillo, [facility] PA-C [address] [place] [address] [address] [place] Phone: [phone] [place] [address] Referral ID Status Reason Start Date Expiration Date Visits Requ ested Visits Authorized [id number] Closed 07/30/2010 01/26/2011 1 1 Reason for Visit Reason Comments ER F/U heart racing-EKG was neg, so re throat-given amoxicillin, low hgb, reaction to meds-irritable Anemia Encounter Details Date Type Department Care Team Description 07/30/2010 Office Visit [facility] Farhan Badillo Anemia; [facility] [place] JEREMY Mooney Frequency of urination and polyuria; [address] [facility] CL[facility] Fatigue; [place], [place] [address] [facility] [place] in; [address] [address] [place] [address] Heavy periods [phone] [place] [address] Social History Tobacco Use Types [...] Routine Chest pain Ordere d: 07/30/2010 REFERRAL HYDROELECTRIC PLANT ELECTRICAL ENGINEER REFERRAL Referral Routine Heavy periods Ordered: 08/03/2010 [...] reflex to micro (07/30/2010 3:48 PM CDT) Pathreading hospital gist Method Time Signature Color Urine Straw [facility] Appearance Urine Clear [facility] Glucose Urine Negative NEG mg/dL [facility] Bilirubin Urine Negative NEG [facility] Ketones Urine Negative NEG mg/dL [facility] Specific [place] <=1.005 1.003 - [place] Urine 1.035 [facility] Blood Urine Negative NEG [facility] pH Urine 7.5 (H) 5.0 - 7.0 [place] pH [facility] Protein Albumin Negative NEG mg/dL [place] Urine [facility] Urobilinogen 0.2 0.2 - 1.0 [place] Urine EU/dL [facility] Nitrite Urine Negative NEG [facility] Leukocyte Negative NEG [place] Esterase Urine [facility] Source Midstream [place] Urine [facility] Specimen Anatomical Collection Method Collection Time Receive d Time (Source) Location / / Volume Laterality Urine specimen 07/30/2010 3:48 PM 011 3:51 (specimen) CDT PM CDT Farhan Badillo PA-C LAB - URINE ORDERABLES Performing Organization Address [facility] Phon e Number [address] [address] [facility] Mononucleosis screen (07/30/2010 3:47 PM CDT) Patholo gist Method Time Signature Mononucleosis Negative NEG [place] Screen [facility] Specimen Anatomical Collection Method Collection Time Receive d Time (Source) Location / / Volume Laterality Blood specimen 07/30/2010 3:47 PM 011 3:50 (specimen) CDT PM CDT Farhan Badillo PA-C LAB - BLOOD ORDERABLES Performing Organization Address [facility] Phon e Number [address] [address] [facility] (ABNORMAL) Iron and iron binding capacity (07/30/2010 3:47 PM CDT) P athologist Signature Iron 37 35 - 180 [facility] ug/dL [facility] Iron Binding 436 (H) 240 - 430 [place] Cap ug/dL [facility] Iron Saturation 9 (L) 15 - 46 % [place] Index [facility] Specimen Anatomical Collection Method Collection Time Receive d Time (Source) Location / / Volume Laterality Blood specimen 07/30/2010 3:47 PM 011 3:50 (specimen) CDT PM CDT Farhan Badillo PA-C LAB - BLOOD ORDERABLES Performing Organization Address City/[facility]/ZIP Code Phon e Number [facility] [address] [place] [address] [facility] (ABNORMAL) CBC with platelets (07/30/2010 3:47 PM CDT) Analysis Performed At Patho logist Time Signature WBC 4.8 4.0 - 11.0 [place] 10e9/L [facility] RBC Count 4.01 3.8 - 5.2 [place] 10e12/L [facility] Hemoglobin 11.2 (L) 11.7 - [place] 15.7 g/dL [facility] Hematocrit 33.7 (L) 35.0 - [place] 47.0 % [facility] MCV 84 78 - 100 [facility] MCH 27.9 26.5 - [place] 33.0 pg [facility] MCHC 33.2 31.5 - [place] 36.5 g/dL [facility] RDW 13.7 10.0 - [place] 15.0 % [facility] Platelet Count 290 150 - 450 [place] 10e9/L [facility] Specimen Anatomical Collection Method Collection Time Receive d Time (Source) Location / / Volume Laterality Blood specimen 07/30/2010 3:47 PM 011 3:50 (specimen) CDT PM CDT Farhan Badillo PA-C LAB - BLOOD ORDERABLES Performing Organization Address City/State/ZIP Code Phon e Number [facility] [id number] [place] [address] [facility] documented in this encounter Visit Diagnoses Diagnosis Anemia Anemia, unspecified Frequency of urination and polyuria Urinary frequency Fatigue Other malaise and fatigue Chest pain Chest pain, unspecified Heavy periods Excessive or frequent menstruation documented in this encounter Care Teams Creative/Art Director Relationship Specialty Start Date End Date Félix Arteaga MD PCP - General 06/25/05 08/29/14 [facility] [address] [place] [address] documented as of this encounter
--- OUTSIDE RECORDS SUMMARY | 2022-02-16 11:00 | XMS_ITS | Encounter Summary ---
:1975 Author Organization [place] Address [address] [facility] [place] [address] Care Team Providers Name Role Phone Félix Arteaga MD Primary Care Provider + Encounter Details Date Type Department Care Team Description 07/31/2010 Telephone [facility] [address] [place], [place] [phone] [facility] [phone] [place] [address] (Wo rk) Social History Tobacco Use Types Packs/Day Years Used Date Smoking Tobacco: Never Alcohol Use Standard Drinks/Week Comments Not Asked 0 (1 standard drink = 0.6 oz pure alcoho l) Sex Assigned at Date Recorded Not on file documented as of this encounter Miscellaneous Notes Telephone Encounter - Tanna Gomes - 07/31/2010 2:29 PM CDT Received phone call from [facility] stating Order for Cardiology Eval Adult Referral needs to state weather it is a stress echo or nuc. Per Eliza order is to be or stress echo. JOB signed order and refaxed to [facility] where they will fax on to Cardiology. documented in this encounter Plan of Treatment Not on filedocumented as of this encounter Visit Diagnoses Not on filedocumented in this encounter Care Teams Lead Sales Consultant Relationship Specialty Start Date End Date Félix Arteaga MD PCP - General 06/25/05 08/29/14 [facility] [address] [place] [address] documented as of this encounter
--- OUTSIDE RECORDS SUMMARY | 2022-02-16 11:00 | XMS_ITS | Encounter Summary ---
:1975 Author Organization [place] Address [address] [facility] [place] [address] Care Team Providers Name Role Phone Félix Arteaga MD Primary Care Provider + Encounter Details Date Type Department Care Team Description 09/21/2008 Historic Results INTERFACED REPORT Nnamdi Coon [place] [address] Social History Tobacco Use Types Packs/Day Years [...] with platelets differential (09/21/2008 4:08 PM CDT) [facility] Method Time Signature MCV 85 78 - [...] on filedocumented in this encounter Care Teams Aircraft Machinist Relationship Specialty Start Date End Date Félix Arteaga MD PCP - General 06/25/05 08/29/14 [facility] [address] [place] [address] documented as of this encounter
--- OUTSIDE RECORDS SUMMARY | 2022-02-16 11:00 | XMS_ITS | Encounter Summary ---
:1975 Author Organization [place] Address [address] [facility] [place] [place] [address] Care Team Providers Name Role Phone Félix Arteaga MD Primary Care Provider + Encounter Details Date Type Department Care Team Description 02/22/2009 Emergency room [facility] Results MD [place] [address] Social History Tobacco Use Types Packs/Day Years Used Date Smoking Tobacco: Never Alcohol Use Standard Drinks/Week Comments Not Asked 0 (1 standard drink = 0.6 oz pure alcoho l) Sex Assigned at Date Recorded Not on file documented as of this encounter Progress Notes Interface, Practice Nurse - 02/26/2009 3:59 PM CDT FINAL CHIEF COMPLAINT: Nausea and chilling. HISTORY OF PRESENT ILLNESS: Courtney Lizama is a 33-year-old female [facility]. She herself developed nausea and chills during her daughter's Emergency Department stay. She has not had any vomiting, and there has been no documented fever. Additionally, she has not had sore throat, cough, headache or polymyalgias. PAST MEDICAL HISTORY: Remarkable for no chronic illness. MEDICATIONS: None. ALLERGIES: None. PAST SURGICAL HISTORY: She has had remote hemorrhoidectomy as an isolated surgical procedure. PERSONAL SOCIAL HISTORY: She is from her spouse and cares for her 4 children. She denies tobacco use. 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 FAMILY HISTORY: Negative. REVIEW OF SYSTEMS: Please see present illness. Completed system review is otherwise negative. PHYSICAL EXAMINATION: VITAL SIGNS: Temperature is 97.6, pulse 94, respirations 20, blood pressure 139/82 and O2 sat is 100% on room air. GENERAL: Pleasant, cooperative woman of stated age whose speech is articulate and meaningful. HEENT: Lids and conjunctivae are clear. Ears, nose and throat examinations are negative. NECK: Trachea is midline. RESPIRATORY: There is no chest wall tenderness. LUNGS: Clear. CARDIOVASCULAR: Heart without murmur, rub or extra sound. ABDOMEN: Soft and nontender without mass or megaly. MUSCULOSKELETAL: Spine and extremity examination is negative. NEUROLOGIC: Cranial nerve, motor, sensory and cerebellar testing is symmetric, physiologic and normal. SKIN: No exanthem. EMERGENCY DEPARTMENT TREATMENT AND MEDICAL DECISION MAKING: Zofran 4 mg was administered orally andTylenol 650 mg orally with the patient's nausea improved. DISCUSSION, PLAN AND DISPOSITION: I discussed with the patient that she most likely has a viral illness and does not have features of influenza-like illness. Given her age and lack of comorbid chronicillness, she is not a candidate for Tamiflu therapy. She was given prescriptions for Zofran and Phenergan and is to follow up with Dr. Arteaga within the next 3-5 days if not improving or sooner if she has repeated vomiting or develops respiratory complaints. DISCHARGE DIAGNOSIS: Nausea and chills secondary to incipient viral illness. Electronically signed on 02/26/2009 15:58 by GUANAKITO PERRY MD MT: [id number] Name: COURTNEY LIZAMA MRN: [id number] Account: [id number] : 1975 Visit Date: 02/22/2009 Document: [id number] cc: Félix Arteaga MD documented in this encounter Plan of Treatment Not on filedocumented as of this encounter Visit Diagnoses Not on filedocumented in this encounter Care Teams Pulmonary Specialist Relationship Specialty Start Date End Date Félix Arteaga MD PCP - General 06/25/05 08/29/14 [facility] [address] [place] [address] documented as of this encounter
--- OUTSIDE RECORDS SUMMARY | 2022-02-16 11:00 | XMS_ITS | Encounter Summary ---
:1975 Author Organization [place] Address [address] [facility] [address] Care Team Providers Name Role Phone Félix Arteaga MD Primary Care Provider + Encounter Details Date Type Department Care Team Description 12/14/2009 Operative Report [facility] Luis E Mtz, (Stars Specialist) [facility] Results [address] [facility] [address] [place] [address] (Wo rk) Social History Tobacco Use Types Packs/Day Years Used Date Smoking Tobacco: Never Alcohol Use Standard Drinks/Week Comments Not Asked 0 (1 standard drink = 0.6 oz pure alcoho l) Sex Assigned at Date Recorded Not on file documented as of this encounter Progress Notes BibiLuisLuis E - 12/19/2009 12:11 PM CDT FINAL PREOPERATIVE DIAGNOSIS: Acute versus chronic appendicitis. POSTOPERATIVE DIAGNOSIS: Acute versus chronic appendicitis. PROCEDURE: Laparoscopic appendectomy. SURGEON: Luis E Mtz MD ANESTHESIA: General. ESTIMATED BLOOD LOSS: Less than 10 cc INDICATIONS FOR OPERATION: Courtney Lizama is a 34-year-old woman who has been experiencing episodic abdominal pain for some time. She developed a sore throat a couple of weeks ago and approximately 2days ago developed some diarrhea as well as abdominal pain. This worsened and was most prominent in the right lower quadrant. She presented to the emergency room where she was found to have a prominentfluid filled appendix. Scan done back in August revealed a fluid filled appendix, but at that time the appendix was smaller and has now increased to a maximum diameter of [address] measurement. Given the patient's right lower quadrant pain and abnormal appearing appendix in addition to the change in the last several months, laparoscopic appendectomy was recommended. The procedure along with its risks and complications was discussed with the patient and she agreed to proceed. DETAILS OF THE OPERATION: After informed consent, the patient was taken to the operating room whereshe underwent satisfactory induction of general anesthesia. The patient was sterilely prepped and draped and a supraumbilical skin incision was made. Dissection was carried down to the fascia, which was then opened using electrocautery. Sutures were placed in the fascial edges and the Karoline trocar was then introduced and fixed in place using stay sutures. Pneumoperitoneum was achieved using CO2 insufflation and two 5 mm lower midline ports were placed. The cecum was identified and followed down to the appendix, which was obviously enlarged and slightly erythematous but without a large degree of inflammation. It was, however, a bit thickened. A window was made in the mesentery and Endo- SANDRA staplerwas fired across the base of the appendix taking just a small rim of the cecum. A vascular load was then used to come across the mesoappendix and the appendix was then placed in an Endocatch bag and brought out through the supraumbilical incision. The surgical field was inspected and there was excellen t hemostasis. Both ovaries were visualized and appeared normal. The small and large bowel that was visible appeared normal. The gallbladder appeared normal. Liver appeared normal. The abdomen was irrigated out using normal saline. The trocar sites were infiltrated with 0.5% Marcaine for postoperative pain control and the trocars were removed under direct visualization. The supraumbilical fascia was closed using interrupted 0 Vicryl sutures. Skin incisions were then closed using 4-0 subcuticular Vicryl followed by Steri-Strips. The patient tolerated the procedure well and was transferred to the recovery room in satisfactory condition. Sponge and needle counts were correct at the close of the case. FINDINGS: Appendix with slight erythema and slight enlargement and prepped thickening suggesting early or mild chronic appendicitis. No other abnormalities were noted. Electronically signed on 12/19/2009 12:11 by LUIS E MTZ MD MT: [id number] Name: COURTNEY LIZAMA MRN: [id number] Account: [id number] : 1975 Procedure Date: 12/14/2009 Document: [id number] cc: Félix Arteaga MD documented in this encounter Plan of Treatment Not on filedocumented as of this encounter Visit Diagnoses Not on filedocumented in this encounter Care Teams Health Assistant Relationship Specialty Start Date End Date Félix Arteaga MD PCP - General 06/25/05 08/29/14 [facility] [address] [place] [address] documented as of this encounter
--- OUTSIDE RECORDS SUMMARY | 2022-02-16 11:00 | XMS_ITS | Encounter Summary ---
:1975 Author Organization [place] Address [address] [facility] [place] [address] Care Team Providers Name Role Phone Félix Arteaga MD Primary Care Provider + Reason for Visit Reason Comments Pharyngitis Symptoms started last night: sore throat, passed out, skin feels like it is on fire, weak. Encounter Details Date Type Department Care Team Description 05/22/2009 Office Visit [facility] Wayne Cesar MD Pharyngitis (Primary Clinic [place] [address] Dx) [address] [place], [place] [address] [address] [place], [place] [phone] [address] (Work) [phone] Social History Tobacco Use Types Packs/Day Years Used Date Smoking Tobacco: Never Alcohol Use Standard Drinks/Week Comments Not Asked 0 (1 standard drink = 0.6 oz pure alcoho l) Sex Assigned at Date Recorded Not on file documented as of this encounter Last Filed Vital Signs Vital Sign Reading Time Taken Comments Blood Pressure 100/60 05/22/2009 4:24 PM CRITICAL CARE CLINICAL NURSE SPECIALIST Pulse 96 05/22/2009 4:24 PM CRITICAL CARE CLINICAL NURSE SPECIALIST Temperature 36.8 ??C (98.2 ??F) 05/22/2009 4:24 PM CRITICAL CARE CLINICAL NURSE SPECIALIST Respiratory Rate - - Oxygen Saturation - - Inhaled Oxygen Concentration - - Weight 64.7 kg (142 lb 11.2 oz) 05/22/2009 4:24 PM CRITICAL CARE CLINICAL NURSE SPECIALIST Height 161.3 cm (5' 3.5) 05/22/2009 4:24 PM CRITICAL CARE CLINICAL NURSE SPECIALIST Body Mass Index 24.88 05/22/2009 4:24 PM CRITICAL CARE CLINICAL NURSE SPECIALIST documented in this encounter Progress Notes Wayne [...] worsen or fail to improve as anticipated. ICAL CARE CLINICAL NURSE SPECIALIST documented in this encounter Nursing Notes 05/22/2009 [...] Pharyngitis Resu lts for this ANTIGEN (RAPID) CRITICAL CARE CLINICAL NURSE SPECIALIST procedure ar e in the results section. HCL BETA STREP Routine 05/22/2009 4:40 PM Pharyngitis Results for this CONFIRM CRITICAL CARE CLINICAL NURSE SPECIALIST procedure are i n the results section. documented in this encounter Results BETA STREP CONFIRM (05/22/2009 4:40 PM CRITICAL CARE CLINICAL NURSE SPECIALIST) Component Value Ref Test Analysis Performed At [facility] Range Method Time Signature Specimen Throat [facility] Culture Micro No Beta [place] Streptococcus [facility] Report status FINAL 05/24/2009 [facility] Specimen Anatomical Collection Method Collection Time Receive d Time (Source) Location / / Volume Laterality 05/22/2009 4:40 PM 0 4:41 CRITICAL CARE CLINICAL NURSE SPECIALIST PM CRITICAL CARE CLINICAL NURSE SPECIALIST Wayne Cesar MD LABORATORY Performing Organization Address City/[facility]/ZIP Code Phon e Number [facility] [address] [place] [address] [facility] STREP GROUP A ANTIGEN (RAPID) (05/22/2009 4:40 PM CRITICAL CARE CLINICAL NURSE SPECIALIST) Component Value Ref Test Analysis Performed At [facility] Method Time Signature Specimen Throat [facility] Rapid Strep A NEGATIVE: No Group A strepto coccal antigen detected by immunoassay, await [place] Screen culture report. [facility] Report status FINAL 05/22/2009 [facility] Specimen Anatomical Collection Method Collection Time Receive d Time (Source) Location / / Volume Laterality 05/22/2009 4:40 PM 0 4:41 CRITICAL CARE CLINICAL NURSE SPECIALIST PM CRITICAL CARE CLINICAL NURSE SPECIALIST Wayne Cesar MD LABORATORY Performing Organization Address City/[facility]/ZIP Code Phon e Number [facility] [place] [address] [facility] documented in this encounter Visit Diagnoses Diagnosis Pharyngitis - Primary Acute pharyngitis documented in this encounter Care Teams Salt Cutter Relationship Specialty Start Date End Date Félix Arteaga MD PCP - General 06/25/05 08/29/14 [facility] [address] [place] [address] documented as of this encounter
--- OUTSIDE RECORDS SUMMARY | 2022-02-16 11:00 | XMS_ITS | Encounter Summary ---
:1975 Author Organization [place] Address [address] [facility] [place] [address] Care Team Providers Name Role Phone Félix Arteaga MD Primary Care Provider + Encounter Details Date Type Department Care Team Description 12/14/2009 Historic Results [facility] Damir Arteaga er [facility] Oxjose Baxter MD [address] [place] [address] [address] [phone] [place], [place] [address] (Wo rk) Social History [...] Results Wet prep (12/14/2009 5:00 PM CDT) [facility] Method Time Signature Specimen Vagina [facility] Description [...] MICRO GENERA L ORDERABLES Performing Organization Address City/[facility]/ZIP Code Phon e Number MISYS Chlamydia trachomatis PCR (12/14/2009 5:00 PM CDT) Component Value Ref Test Analysis Performed At Psychiatric Method Time Signature Specimen Cervix MISYS Description Chlamydia Negative for C. [facility] Trachomatis PCR trachomatis rRNA by rubber chemist mediated amplification. Comment: A negative result by rubber chemist medi ated amplification does not preclude the [...] Neisseria gonorrhoeae PCR (12/14/2009 5:00 PM CDT) [facility] [employer] Method Time Signature Specimen Cervix MISYS Descrip N Gonorrhea Negative for N. MISYS PCR gonorrhoeae rRNA by rubber chemist mediated amplification. Comment: A negative result by rubber chemist medi ated amplification does not preclude the [...] with platelets differential (12/14/2009 3:58 PM CDT) Patholo gist Method Time Signature MCV 88 78 [...] - BLOOD ORDERABLES Performing Organization Address City/[facility] Phon e Number MISYS (ABNORMAL) Routine UA with microscopic (12/14/2009 3:35 PM CDT) [facility] Method Time Signature Source Midstream [facility] Urine Color Urine Yellow [facility] Appearance Urine Clear [facility] Glucose Urine Negative NEG mg/dL [facility] Bilirubin Urine Negative NEG [facility] Ketones Urine Negative NEG mg/dL [facility] Specific [place] 1.014 1.003 - [facility] Urine 1.035 Blood [...] - URINE ORDERABLES Performing Organization Address City/[facility] Phon e Number [facility] HCG qualitative urine [...] on filedocumented in this encounter Care Teams Insurance Attorney Relationship Specialty Start Date End Date Félix Arteaga MD PCP - General 06/25/05 08/29/14 [facility] [address] [place] [address] documented as of this encounter
--- OUTSIDE RECORDS SUMMARY | 2022-02-16 11:00 | XMS_ITS | Encounter Summary ---
:1975 Author Organization [place] Address [address] [facility] [place] [address] Care Team Providers Name Role Phone Félix Arteaga MD Primary Care Provider + Encounter Details Date Type Department Care Team Description 04/05/2009 Emergency room [facility] Thiago Hadley, Hospital Results MD EMERGENCY PHYSIC [place] [address] [facility] [address] [place] [address] (Wo rk) Social History Tobacco Use Types Packs/Day Years Used Date Smoking Tobacco: Never Alcohol Use Standard Drinks/Week Comments Not Asked 0 (1 standard drink = 0.6 oz pure alcoho l) Sex Assigned at Date Recorded Not on file documented as of this encounter Progress Notes Wagner Hadley MD - 06/05/2009 5:15 PM PUBLIC DEFENDER FINAL CHIEF COMPLAINT: Low abdominal pain. HISTORY [...] [facility] She denies any abnormal vaginal [...] 06/05/2009 17:14 by WAGNER HADLEY MD MT: #[id number] Name: COURTNEY LIZAMA MRN: [id number] Account: [id number] : 1975 Visit Date: 04/05/2009 Document: [id number] IC DEFENDER documented in this encounter Plan of Treatment Not on filedocumented as of this encounter Visit Diagnoses Not on filedocumented in this encounter Care Teams Vocational Education Professional Relationship Specialty Start Date End Date Félix Arteaga MD PCP - General 06/25/05 08/29/14 [facility] [address] [place] [address] documented as of this encounter
--- OUTSIDE RECORDS SUMMARY | 2022-02-16 11:00 | XMS_ITS | Encounter Summary ---
:1975 Author Organization [place] Address [address] [facility] [place] [address] Care Team Providers Name Role Phone Félix Arteaga MD Primary Care Provider + Reason for Visit Reason Onset Date Comments Back Pain 05/30/2010 Back pain Encounter Details Date Type Department Care Team Description 05/30/2010 Telephone [facility] Félix Arteaga ack Pain (Back pain) [place] [address] [place], [place] [address] [address] [phone] [place], [place] [address] (Wo rk) Social History Tobacco Use Types Packs/Day Years Used Date Smoking Tobacco: Never Alcohol Use Standard Drinks/Week Comments Not Asked 0 (1 standard drink = 0.6 oz pure alcoho l) Sex Assigned at Date Recorded Not on file documented as of this encounter Miscellaneous Notes Telephone Encounter - Pablito Elizabeth - 05/30/2010 3:18 PM CST Pt informed.Pablito Elizabeth MA POLISHER Telephone Encounter - Pablito Elizabeth - 05/30/2010 3:05 PM CST Left Message On Machine For Patient To Call The Clinic Back. Pablito Elizabeth M.A. POLISHER Telephone Encounter - Félix Arteaga - 05/30/2010 2:51 PM CST Will fax flexeril to use as needed Félix Arteaga MD [facility] POLISHER Telephone Encounter - KtJanelle - 05/30/2010 2:38 PM CST Pt called with complaints of sudden onset of back pain x this am. 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 Janelle Meraz RN POLISHER documented in this encounter Plan of Treatment Not on filedocumented as of this encounter Visit Diagnoses Diagnosis Back pain - Primary Backache, unspecified documented in this encounter Care Teams Toolman Relationship Specialty Start Date End Date Félix Arteaga MD PCP - General 06/25/05 08/29/14 [facility] [address] [place] [address] documented as of this encounter
--- OUTSIDE RECORDS SUMMARY | 2022-02-16 11:00 | XMS_ITS | Encounter Summary ---
:1975 Author Organization [place] Address [address] [facility] [place] [address] Care Team Providers Name Role Phone Félix Arteaga MD Primary Care Provider + Encounter Details Date Type Department Care Team Description 08/09/2009 Historic Results [facility] Damir Arteaga er [facility] Oxjose Baxter MD [address] [place] [address] [address] [phone] [place], [place] [address] (Wo rk) Social History [...] Results Wet prep (08/09/2009 8:45 PM CDT) [facility] Method Time Signature Specimen Vagina MISYS Description [...] MICRO GENERA L ORDERABLES Performing Organization Address City/[facility]/ZIP Code Phon e Number MISYS Chlamydia trachomatis PCR (08/09/2009 8:45 PM CDT) Component Value Ref Test Analysis Performed At [facility] Range Method Time Signature Specimen Cervical MISYS Description Chlamydia Negative for C. MISYS Trachomatis PCR trachomatis rRNA by sales associate cashier mediated amplification. Comment: A negative result by sales associate cashier medi ated amplification does not preclude the [...] Neisseria gonorrhoeae PCR (08/09/2009 8:45 PM CDT) [facility] [employer] Method Time Signature Specimen Cervical MISYS Descrip N Gonorrhea Negative for N. MISYS PCR gonorrhoeae rRNA by sales associate cashier mediated amplification. Comment: A negative result by sales associate cashier medi ated amplification does not preclude the [...] with platelets differential (08/09/2009 8:20 PM CDT) [facility] gist Method Time Signature MCV 87 [...] - BLOOD ORDERABLES Performing Organization Address City/[facility] Phon e Number MISYS Basic metabolic panel [...] UA with microscopic (08/09/2009 7:30 PM CDT) [facility] Method Time Signature Source Midstream MISYS Urine Color Urine Yellow MISYS Appearance Urine Clear MISYS Glucose Urine Negative NEG mg/dL MISYS Bilirubin Urine Negative NEG MISYS Ketones Urine Negative NEG mg/dL MISYS Specific [place] 1.015 1.003 - MISYS Urine 1.035 Blood [...] on filedocumented in this encounter Care Teams Fire Lieutenant Relationship Specialty Start Date End Date Félix Arteaga MD PCP - General 06/25/05 08/29/14 [facility] [address] [place] [address] documented as of this encounter
--- OUTSIDE RECORDS SUMMARY | 2022-02-16 11:00 | XMS_ITS | Encounter Summary ---
:1975 Author Organization [place] Address [address] [facility] [address] Care Team Providers Name Role Phone Félix Arteaga MD Primary Care Provider + Reason for Visit Reason Comments Abnormal Bleeding Problem period for only 1 day, light bleeding, LMP was 09/14 and stopped on 09/15, pt left a u rine, also some cramping/bloating Nausea nausea, cramping, frequent u rination Encounter Details Date Type Department Care Team Description 09/24/2010 Office Visit [facility] Elissa Hurt MD Abdominal bloating (Primary Dx); Clinic [facility] Screening for malignant neop lasm of the cervix; [address] [facility] Need for prophylactic vaccination with t etanus-diphtheria (TD); [place], [place] [address] Anemia; [phone] [place] [address] Menorrhagia; [phone] Ovarian cyst; (Work) Urinary frequency; Nausea Social [...] doing scanning of abdomen and /or seeing basket assembler for this Elissa Hurt MD documented in [...] anything for contraception-if becomes ok with her [id number] tring to become Tried home upt, neg, [...] to any specific food ,no fhx of stock replenisher cancer Plan: CBC with platelets differential, HCG [...] doing scanning of abdomen and /or seeing basket assembler for this Elissa Hurt MD documented in this encounter Nursing Notes 09/24/2010 3:00 PM CDT >> JULIANNE ACOSTA Mon September 24, 2010 3:14 PM Patient [...] completed using cuff size: regular Julianne Meraz CMA JASWINDER done for last pap on 09/24/10, put in has historical.Julianne Meraz CMA documented in this encounter Plan [...] Component Value Ref Test Analysis Performed At [facility] gist Range Method Time Signature PAP ASC-H (A) COPATH Copath Report COPATH Patient Name: COURTNEY LIZAMA MR#: [id number] Specimen #: [id number] Collected: 09/24/2010 Received: 09/26/2010 Reported: 09/27/2010 16:11 [...] Angel Neely M.D. Processed and screened at [facility] CLINICAL HISTORY: LMP: 09/14/2010 Previous normal pap Date of Last Pap: 08/03/2010, Papanicolaou Test Limitations: ??Cervical cytology is a scre ening test with limited sensitivity; regular screening is critical for cancer prevention; Pap tests are primarily effective for the diagnosis/prevention of squamous cell carcinoma, not adenoca rcinomas or other cancers. TESTING LAB LOCATION: [address] ??[address] COLLECTION SITE: Client: ??[facility] Location: LVFP (R) Specimen (Source) Anatomical Collection Method Collection Time Re ceived Time Location / / Volume Laterality Cytologic 09/24/2010 4:57 09/26/2010 material PM CDT 10:50 AM CDT (specimen) Elissa Hurt MD LAB - OPTIME CLINICAL SPECIM EN Performing Organization Address City/[facility]/ZIP Code Phon e Number COPATH URINE CULTURE (09/24/2010 4:16 PM CDT) [facility] Method Time Signature Specimen Midstream [facility] Urine [facility] Culture Micro No growth [facility] Micro Report FINAL ROUND O Status 09/26/2010 [facility] LAB Specimen Anatomical Collection Method Collection Time Receive d Time (Source) Location / / Volume Laterality 09/24/2010 4:16 PM 1 4:17 CDT PM CDT Elissa Hurt MD LAB - MICRO GENERAL ORDERABL ES Performing Organization Address City/[facility]/ZIP Code Phon e Number [facility] [address] [address] [facility] (ABNORMAL) Microscopic exam urine (09/24/2010 3:37 PM CDT) athologist Signature WBC Urine O - 2 0 - 2 /HPF [facility] RBC Urine 2-5 (A) 0 - 2 /HPF [facility] Bacteria Urine Few (A) NEG /HPF [facility] Specimen Anatomical Collection Method Collection Time Receive d Time (Source) Location / / Volume Laterality 09/24/2010 3:37 PM 1 3:38 CDT PM CDT Elissa Hurt MD LAB - URINE ORDERABLES Performing Organization Address City/[facility]/ZIP Code Phon e Number [facility] [address] [place] [address] [facility] TSH with free T4 reflex (09/24/2010 3:37 PM CDT) athologist Signature TSH 0.88 0.4 - 5.0 [facility] mU/L CLINIC LAB Specimen Anatomical Collection Method Collection Time Receive d Time (Source) Location / / Volume Laterality Blood specimen 09/24/2010 3:37 PM 011 3:38 (specimen) CDT PM CDT Elissa Hurt MD LAB - BLOOD ORDERABLES Performing Organization Address City/State/ZIP Code Phon e Number [facility] [address] [place] [address] [facility] LAB (ABNORMAL) Comprehensive metabolic panel (09/24/2010 3:37 PM CDT) athologist Signature Sodium 143 133 - 144 [place]OUND [place] mmol/L [facility] Potassium 3.8 3.4 - 5.3 [place]OUND [place] mmol/L [facility] Chloride 103 94 - 109 [place] mmol/L [facility] Carbon Dioxide 27 20 - 32 [place] mmol/L [facility] Anion Gap 13 6 - 17 [place] mmol/L [facility] Glucose 104 (H) 60 - 99 [place]OUND O mg/dL [facility] Urea Nitrogen 9 5 - 24 [place]OUND O mg/dL [facility] Creatinine 0.66 0.52 - [facility] 1.04 mg/dL [facility] GFR Estimate >90 >60 [place]OUND [place] mL/min/1.7 [facility] m2 LAB GFR Estimate If >90 >60 ROUND [place] Black mL/min/1.7 [facility] m2 LAB Calcium 9.5 8.5 - 10.4 ROUND O mg/dL [facility] Bilirubin Total 1.0 0.2 - 1.3 [place]OUND O mg/dL [facility] Albumin 4.3 3.9 - 5.1 ROUND O g/dL [facility] Comment: Reference range changed on 01/04. Protein Total 8.1 6.8 - 8.8 g/dL [facility] Comment: As of 07, reference range reflects plasma specimen type. Alkaline Phosphatase 59 40 - 150 U/L [facility] ALT 11 0 - 50 U/L [facility] LAB AST 35 0 - 45 U/L [facility] LAB Specimen Anatomical Collection Method Collection Time Receive d Time (Source) Location / / Volume Laterality Blood specimen 09/24/2010 3:37 PM 011 3:38 (specimen) CDT PM CDT Elissa Hurt MD LAB - BLOOD ORDERABLES Performing Organization Address City/[facility]/ZIP Code Phon e Number [facility] [address] [place] [address] [facility] LAB HCG qualitative (09/24/2010 3:37 PM CDT) Patholo gist Method Time Signature HCG Qualitative Negative NEG ROUND O Serum [facility] Specimen Anatomical Collection Method Collection Time Receive d Time (Source) Location / / Volume Laterality Blood specimen 09/24/2010 3:37 PM 011 3:38 (specimen) CDT PM CDT Elissa Hurt MD LAB - BLOOD ORDERABLES Performing Organization Address City/[facility]/ZIP Code Phon e Number [facility] [address] [place] [address] [facility] (ABNORMAL) CBC with platelets differential (09/24/2010 3:37 PM CDT) P athologist Signature WBC 6.3 4.0 - 11.0 [place] 10e9/L [facility] RBC Count 4.03 3.8 - 5.2 [facility] 10e12/L [facility] Hemoglobin 11.1 (L) 11.7 - 15.7 [place] g/dL [facility] Comment: Reviewed: OK with previous Hematocrit 33.4 (L) 35.0 - 47.0 % [facility] MCV 83 78 - 100 fl [facility] RID [facility] MCH 27.5 26.5 - 33.0 pg [facility] MCHC 33.2 31.5 - 36.5 g/dL [facility] RDW 13.5 10.0 - 15.0 % [facility] R [facility] Platelet Count 268 150 - 450 10e9/L [facility] Diff Method Automated Method [facility] % Neutrophils 64.8 40 - 75 % [facility] % Lymphocytes 27.1 20 - 48 % [facility] % Monocytes 7.3 0 - 12 % [facility] % Eosinophils 0.5 0 - 6 % [facility] % Basophils 0.3 0 - 2 % [facility] Absolute Neutrophil 4.1 1.6 - 8.3 10e9/L [facility] Absolute Lymphocytes 1.7 0.8 - 5.3 10e9/L [facility] Absolute Monocytes 0.5 0.0 - 1.3 10e9/L [facility] Absolute Eosinophils 0.0 0.0 - 0.7 10e9/L [facility] Absolute Basophils 0.0 0.0 - 0.2 10e9/L [facility] Specimen Anatomical Collection Method Collection Time Receive d Time (Source) Location / / Volume Laterality Blood specimen 09/24/2010 3:37 PM 011 3:38 (specimen) CDT PM CDT Elissa Hurt MD LAB - BLOOD ORDERABLES Performing Organization Address City/State/ZIP Code Phon e Number [facility] [id number] [place] [address] [facility] (ABNORMAL) UA macroscopic with reflex to micro (09/24/2010 3:37 PM CDT) [facility] gist Method Time Signature Color Urine Yellow [facility] Appearance Urine Clear [facility] Glucose Urine Negative NEG mg/dL [facility] Bilirubin Urine Negative NEG [facility] Ketones Urine Negative NEG mg/dL [facility] Specific [place] 1.020 1.003 - ROUND O Urine 1.035 [facility] Blood Urine Trace (A) NEG [facility] pH Urine 6.5 5.0 - 7.0 [place] pH [facility] Protein Albumin Negative NEG mg/dL [place] Urine [facility] Urobilinogen 0.2 0.2 - 1.0 [place] Urine EU/dL [facility] Nitrite Urine Negative NEG [facility] Leukocyte Negative NEG [place] Esterase Urine [facility] Source Midstream [place] Urine [facility] Specimen Anatomical Collection Method Collection Time Receive d Time (Source) Location / / Volume Laterality Urine specimen 09/24/2010 3:37 PM 011 3:38 (specimen) CDT PM CDT Elissa Hurt MD LAB - URINE ORDERABLES Performing Organization Address City/State/ZIP Code Phon e Number [facility] [address] [place] [address] [facility] PAP imaged thin layer screen (08/03/2010) [...] alone documented in this encounter Care Teams Restaurant Associate Relationship Specialty Start Date End Date Félix Arteaga MD PCP - General 06/25/05 08/29/14 [facility] [address] [place] [address] documented as of this encounter
--- OUTSIDE RECORDS SUMMARY | 2022-02-16 11:00 | XMS_ITS | Encounter Summary ---
:1975 Author Organization [place] Address [address] [facility] [place] [address] Care Team Providers Name Role Phone Félix Arteaga MD Primary Care Provider + Encounter Details Date Type Department Care Team Description 12/14/2009 Emergency room [facility] Lonny Little MD Hospital [facility] [address] [place], [place] [address] (Wo rk) Social History Tobacco Use Types Packs/Day Years Used Date Smoking Tobacco: Never Alcohol Use Standard Drinks/Week Comments Not Asked 0 (1 standard drink = 0.6 oz pure alcoho l) Sex Assigned at Date Recorded Not on file documented as of this encounter Progress Notes Vidal Little P - 12/28/2009 4:56 PM CDT FINAL CHIEF [...] CATHLEEN#[id number] Name: COURTNEY LIZAMA MRN: [id number] Account: [id number] : 1975 Visit Date: 12/14/2009 Document: [id number] documented in this encounter Plan of Treatment Not on filedocumented as of this encounter Visit Diagnoses Not on filedocumented in this encounter Care Teams Office Coordinator Relationship Specialty Start Date End Date Félix Arteaga MD PCP - General 06/25/05 08/29/14 [facility] [address] [facility] [place] [address] documented as of this encounter
--- OUTSIDE RECORDS SUMMARY | 2022-02-16 11:00 | XMS_ITS | Encounter Summary ---
:1975 Author Organization [place] Address [address] [facility] [place] [address] Care Team Providers Name Role Phone Félix Arteaga MD Primary Care Provider + Encounter Details Date Type Department Care Team Description 08/09/2009 Emergency room [facility] Valerie Palomares, Hospital Results MD EMERGENCY PHYSIC [place] [address] [place] [address] (Wo rk) Social History Tobacco Use Types [...] going home and returning if things worsen andheberte noted that she would prefer to go home and if things worsen, she will return. I did recommend that she follow up with a manager test if her symptoms continue in a mild [...] PALOMARES MD MT: [id number] Name: COURTNEY LIZAMA MRN: [id number] Account: [id number] : 1975 Visit Date: 08/09/2009 Document: [id number] documented in this encounter Plan of Treatment Not on filedocumented as of this encounter Visit Diagnoses Not on filedocumented in this encounter Care Teams Tow Driver Relationship Specialty Start Date End Date Félix Arteaga MD PCP - General 06/25/05 08/29/14 [facility] WELL[facility] [address] [place] [address] documented as of this encounter
--- OUTSIDE RECORDS SUMMARY | 2022-02-16 11:00 | XMS_ITS | Encounter Summary ---
:1975 Author Organization [place] Address [address] [facility] [place] [address] Care Team Providers Name Role Phone Félix Arteaga MD Primary Care Provider + Encounter Details Date Type Department Care Team Description 11/19/2010 Hospital Laboratory [facility] [place], [facility] Results [address] [facility], [address] [place], [place] [address] (Wo rk) Social History Tobacco Use Types [...] At Patho logist Time Signature ABO O [facility] RH(D) Pos [facility] Antibody Neg [facility] Screen [facility] Specimen 11/22/2010 [facility] Specimen Anatomical Collection Method Collection Time Receive d Time (Source) Location / / Volume Laterality 11/19/2010 2:50 PM 1 3:01 CDT PM CDT [place] MD LAB - BLOOD BANK TEST ORDER Performing Organization Address City/State/ZIP Code Phon e Number [facility] [address], [place] [address] [phone] [facility] Partial thromboplastin time (11/19/2010 2:50 PM CDT) P athologist Signature PTT 32 22 - 37 sec [facility] LAB Specimen Anatomical Collection Method Collection Time Receive d Time (Source) Location / / Volume Laterality 11/19/2010 2:50 PM 1 3:01 CDT PM CDT [place] MD LAB - BLOOD ORDERABLES Performing Organization Address City/State/ZIP Code Phon e Number [facility] [address], [place] [address] [phone] [facility] INR (11/19/2010 2:50 PM CDT) P athologist Signature INR 1.10 0.86 - 1.14 [facility] LAB Specimen Anatomical Collection Method Collection Time Receive d Time (Source) Location / / Volume Laterality 11/19/2010 2:50 PM 1 3:01 CDT PM CDT [place] MD LAB - BLOOD ORDERABLES Performing Organization Address City/State/ZIP Code Phon e Number [facility] [address] [place] [address] [phone] [facility] (ABNORMAL) Hemoglobin (11/19/2010 2:50 PM CDT) athologist Signature Hemoglobin 9.6 (L) 11.7 - 15.7 CORA g/dL [facility] LAB Specimen Anatomical Collection Method Collection Time Receive d Time (Source) Location / / Volume Laterality 11/19/2010 2:50 PM 1 3:01 CDT PM CDT [place] MD LAB - BLOOD ORDERABLES Performing Organization Address City/State/ZIP Code Phon e Number [facility] [address] [place] [address] [facility] (ABNORMAL) Hemoglobin (11/19/2010 1:00 PM CDT) athologist Signature Hemoglobin 9.8 (L) 11.7 - 15.7 [facility] g/dL [facility] LAB Specimen Anatomical Collection Method Collection Time Receive d Time (Source) Location / / Volume Laterality 11/19/2010 1:00 PM 1 1:07 CDT PM CDT [place] MD LAB - BLOOD ORDERABLES Performing Organization Address City/State/ZIP Code Phon e Number [facility] [address] [place] [address] [facility] HCG qualitative urine (11/19/2010 6:45 AM CDT) [facility] Method Time Signature HCG Qual Negative NEG [facility] Urine Performed at Point of Care [facility] LAB Specimen Anatomical Collection Method Collection Time Receive d Time (Source) Location / / Volume Laterality 11/19/2010 6:45 AM 1 8:29 CDT AM CDT [place] MD LAB - URINE ORDERABLES Performing Organization Address City/State/ZIP Code Phon e Number [facility] [address] [place] [address] [facility] documented in this encounter Visit Diagnoses Not on filedocumented in this encounter Care Teams Mobile Application Engineer Relationship Specialty Start Date End Date Félix Arteaga MD PCP - General 06/25/05 08/29/14 [facility] [address] [place] [address] documented as of this encounter
--- OUTSIDE RECORDS SUMMARY | 2022-02-16 11:01 | XMS_ITS | Encounter Summary ---
:1975 Author Organization [place] Address [address] [facility] [place] [address] Care Team Providers Name Role Phone Félix Arteaga MD Primary Care Provider + Reason for Visit Reason Comments URI uri symptoms x1 day, c/o sin us pain/pressure Encounter Details Date Type Department Care Team Description 06/25/2005 Office Visit [facility] Félix Arteaga CUTE SINUSITIS [facility] [place] Redd Baxter MD (Primary Dx) [address] [place], [place] [address] [address] [phone] [place], [place] [address] (Wo rk) Social History Tobacco Use Types Packs/Day Years Used Date Smoking Tobacco: Never Alcohol Use Standard Drinks/Week Comments Not Asked 0 (1 standard drink = 0.6 oz pure alcoho l) Sex Assigned at Date Recorded Not on file documented as of this encounter Last Filed Vital Signs Vital Sign Reading Time Taken Comments Blood Pressure 130/82 06/25/2005 10:00 AM CARE SPECIALIST Pulse 80 06/25/2005 10:00 AM CARE SPECIALIST Temperature 36.6 ??C (97.8 ??F) 06/25/2005 10:00 AM CARE SPECIALIST Respiratory Rate 16 06/25/2005 10:00 AM CARE SPECIALIST Oxygen Saturation - - Inhaled Oxygen [...] stress due to needing to leave for [place] for a hospice visit and her child [...] to face, in addition. Félix Arteaga MD [facility] SPECIALIST documented in this encounter Nursing Notes 06/25/2005 [...] BP completed using cuff size regular Romelia Awan/ELEN documented in this encounter Plan of Treatment Not on filedocumented as of this encounter Visit Diagnoses Diagnosis Acute sinusitis, unspecified - Primary documented in this encounter Care Teams Premium Representative Relationship Specialty Start Date End Date Félix Arteaga MD PCP - General 06/25/05 08/29/14 [facility] [place] [address] [place] [address] documented as of this encounter
--- OUTSIDE RECORDS SUMMARY | 2022-02-16 11:01 | XMS_ITS | Encounter Summary ---
:1975 Author Organization [place] Address [address] [facility] [address] Care Team Providers Name Role Phone Félix Arteaga MD Primary Care Provider + Encounter Details Date Type Department Care Team Description 07/04/2006 Historic Results [facility] Damir Arteaga [facility] [place] [address] [facility] [address] [address] [phone] [place], [place] [address] (Wo rk) Social History [...] 07/04/2006 6:45 AM Results f or this TEAROOM HOST/HOSTESS procedure are i n the results section . documented in this encounter Results (ABNORMAL) Hemoglobin (07/04/2006 6:45 AM TEAROOM HOST/HOSTESS) P athologist Signature Hemoglobin 11.3 (L) 11.7 - 15.7 MISYS g/dL Specimen Anatomical Collection Method Collection Time Receive d Time (Source) Location / / Volume Laterality 07/04/2006 6:45 AM 7 2:45 TEAROOM HOST/HOSTESS AM TEAROOM HOST/HOSTESS Félix Arteaga MD LAB - BLOOD ORDERA BLES Performing Organization Address City/State/ZIP Code Phon e Number MISYS documented in this encounter Visit Diagnoses Not on filedocumented in this encounter Care Teams Director Of Intercollegiate Athletics Relationship Specialty Start Date End Date Félix Arteaga MD PCP - General 06/25/05 08/29/14 [facility] [address] [place] [address] documented as of this encounter
--- OUTSIDE RECORDS SUMMARY | 2022-02-16 11:01 | XMS_ITS | Encounter Summary ---
:1975 Author Organization [place] Address [address] [facility] [place] [address] Care Team Providers Name Role Phone Félix Arteaga MD Primary Care Provider + Encounter Details Date Type Department Care Team Description 07/02/2006 Historic Results [facility] Damir Arteaga [facility] [address] [place], [place] [address] [address] [phone] [place], [place] [address] (Wo rk) Social History [...] 07/02/2006 12:30 Results for this MICROSCOPIC PM FROG CATCHER procedure are i n the results section. HEMOGRAM DIFFERENTIAL STAT 07/02/2006 12:10 Re sults for this AND PLATELET PM FROG CATCHER procedure are i n the results section. HEPATIC FUNCTION Routine 07/02/2006 12:10 Results for this PANEL PM FROG CATCHER procedure are i n the results section. BASIC METABOLIC PANEL STAT 07/02/2006 12:10 Re sults for this PM FROG CATCHER procedure are i n the results section. GLUCOSE BY METER Routine 07/02/2006 11:35 Results for this AM FROG CATCHER procedure are i n the results section. documented in this encounter Results (ABNORMAL) Routine UA with microscopic (07/02/2006 12:30 PM FROG CATCHER) Component Value Ref Test Analysis Performed At Patholo gist Range Method Time Signature Source Catheterized MISYS Urine Color Urine Yellow MISYS Appearance Urine Clear MISYS Glucose Urine Negative NEG MISYS mg/dL Bilirubin Urine Negative NEG MISYS Ketones Urine Negative NEG MISYS mg/dL Specific [place] 1.019 1.003 - MISYS Urine 1.035 Blood [...] / Volume Laterality 07/02/2006 12:30 07/02/2006 PM FROG CATCHER 11:59 AM FROG CATCHER Loc King MD LAB - URINE ORDERABLES Performing Organization Address City/State/ZIP Code Phon e Number MISYS (ABNORMAL) Hemogram differential and platelet (07/02/2006 12:10 PM FROG CATCHER) P athologist Signature MCV 86 78 - [...] Absolute Lymphocytes 0.8 0.8 - 5.3 10e9/L HI SYS Absolute Monocytes 0.4 0.0 - 1.3 10e9/L MISY S Absolute Metamyelocytes 0.2 10e9/L MISYS Platelet Estimate Normal MISYS Diff Method Manual Differential MISYS RBC Morphology Consistent with reported results MISYS Specimen Anatomical Collection Method Collection Time Receive d Time (Source) Location / / Volume Laterality 07/02/2006 12:10 07/02/2006 PM FROG CATCHER 11:59 AM FROG CATCHER Loc King MD LAB - BLOOD ORDERABLES Performing Organization Address City/State/[facility] Code Phon e Number MISYS (ABNORMAL) Basic metabolic panel (07/02/2006 12:10 PM FROG CATCHER) Analysis Performed At Patho logist Time Signature [...] / Volume Laterality 07/02/2006 12:10 07/02/2006 PM FROG CATCHER 11:59 AM FROG CATCHER Loc King MD LAB - BLOOD ORDERABLES Performing Organization Address City/State/ZIP Code Phon e Number MISYS (ABNORMAL) Hepatic panel (07/02/2006 12:10 PM FROG CATCHER) [facility] Method Time Signature AST 54 (H) [...] Volume Laterality 07/02/2006 12:10 07/02/2006 1:40 PM FROG CATCHER PM FROG CATCHER Loc King MD LAB - BLOOD ORDERABLES Performing Organization Address City/State/ZIP Code Phon e Number MISYS (ABNORMAL) Glucose by meter (07/02/2006 11:35 AM FROG CATCHER) P athologist Signature Glucose 129 (H) 60 - 110 MISYS mg/dL Comment: RN/MD NOTIFIED Specimen Anatomical Collection Method Collection Time Receive d Time (Source) Location / / Volume Laterality 07/02/2006 11:35 07/03/2006 AM FROG CATCHER 10:38 AM FROG CATCHER Félix Arteaga MD LAB - BEAKER POCT Performing Organization Address City/State/ZIP Code Phon e Number MISYS documented in this encounter Visit Diagnoses Not on filedocumented in this encounter Care Teams Director Script Relationship Specialty Start Date End Date Féilx Arteaga MD PCP - General 06/25/05 08/29/14 [facility] [place] [address] [place] [address] documented as of this encounter
--- OUTSIDE RECORDS SUMMARY | 2022-02-16 11:01 | XMS_ITS | Encounter Summary ---
:1975 Author Organization [place] Address [address] [facility] [place] [address] Care Team Providers Name Role Phone Félix Arteaga MD Primary Care Provider + Encounter Details Date Type Department Care Team Description 11/22/2006 Orders Only [facility] Hunter Roman PERS H X UTI (Primary [facility] [place] Dx) [address] [place] [id number] [phone] Social History Tobacco Use Types Packs/Day Years [...] Primary documented in this encounter Care Teams Nurse Researcher Relationship Specialty Start Date End Date Félix Arteaga MD PCP - General 06/25/05 08/29/14 [facility] [address] [place] [address] documented as of this encounter
--- OUTSIDE RECORDS SUMMARY | 2022-02-16 11:01 | XMS_ITS | Encounter Summary ---
:1975 Author Organization [place] Address [address] [facility] [place] [address] Care Team Providers Name Role Phone Félix Arteaga MD Primary Care Provider + Encounter Details Date Type Department Care Team Description 07/02/2006 Emergency room Woodrow King MD [facility] [address] [place] [address] (Wo rk) Social History Tobacco Use Types Packs/Day Years Used Date Smoking Tobacco: Never Alcohol Use Standard Drinks/Week Comments Not Asked 0 (1 standard drink = 0.6 oz pure alcoho l) Sex Assigned at Date Recorded Not on file documented as of this encounter Progress Notes Interface, School Community Relations Coordinator - 08/22/2006 9:24 AM CDT FINAL CHIEF COMPLAINT: Stomach hurts. HISTORY OF PRESENT ILLNESS: his 30-year-old woman comes in by herself, complaining of abdominal discomfort that has been going on for about 8 hours prior to arrival. She was complaining of some dizziness and fatigue. The dizziness she clarifies to me, feels like she is going to pass out. 2 weeks ago, she had a baby is born at 38 weeks, delivered early because of hypertension this is her 7th , 7th , complicated with heavy bleeding and she been on magnesium for about 4 days, after that she felt okay she location some cramps, felt weak, pain in the stomach has just begun. Last night shestarted having cramps again. Two days ago, she had lot of blood from her vagina, this has slowed down since then. She rates her pain an 8/10, She also says she has felt afebrile. She has also vomited 5times. No diarrhea. She says in terms of weak feeling, she does not feel like she is really recovered from childbirth. Furthermore, this morning she had a syncopal episode and has noticed a strong order in her urine. MEDICATIONS: She is currently only on Tylenol, Motrin does not have any allergies. ALLERGIES: As above. FAMILY HISTORY: Noncontributory. No known bleeding disorders. PAST MEDICAL HISTORY: Remarkable for ovarian cyst, 7 vaginal deliveries, recent history LEEP and a vaginal cyst, otherwise as above. SOCIAL HISTORY: Stable. She is with 7 children. REVIEW OF SYSTEMS: Discussed above for pertinent things. All other systems are negative. PHYSICAL EXAMINATION: VITAL SIGNS: Blood pressure is 92/51, pulse 78, respiratory rate 24, temperature 95.6 and sats 99%.Recheck vital signs show blood pressure 111/63, heart rate 75 and temperature 90. GENERAL: She is seen standing at the edge of the bed, shaking and quivering, needing 2 people to hold her up. She lookspale and is in a moderate amount of distress. HEENT: Her pupils are equal and react to light. Extraocular movements are full and intact. Nose, mouth and oropharynx are unremarkable. Slightly dry mucosa. No sores. There is slight pallor or scleral. Rest of HEENT normal. there is no sinus tenderness. NECK, SPINE AND BACK: Normal. CHEST: Rise equal. LUNGS: Sounds are clear. HEART: Sounds normal S1 and S2. No murmurs, rubs or gallops. Pulses symmetric and strong. ABDOMEN: Soft. Tender throughout initially. On repeat examinations, there is some mild tenderness in the suprapubic region. There is no mass or organomegaly. Fundus appears to be small and uterus seems nontenderand contracted. Bowel sounds are present. There is no mass or organomegaly. GENITOURINARY AND RECTAL: Not examined. EXTREMITIES: Extremities x4 normal. NEUROLOGIC: Nonfocal. SKIN, PSYCHIATRIC, AND LYMPH: Normal. Rest of physical exam is really all unremarkable. NEUROLOGIC: Includes normal, symmetric cranial nerves. She has symmetric sensation in extremities. Toes are downgoing. EMERGENCY DEPARTMENT DIAGNOSTICS: White count 20.7, hemoglobin 15.7, hematocrit is 46.1, MCV is 86 and platelets 444. I think this represents hemoconcentration as clinically I would suspect her hemoglobin to be lower than this number. She does have 92% neutrophils, 4% lymphocytes, 1% metamyelocytes. Basic metabolic panel shows sodium 145 and anion gap 20, creatinine 1.82. Her bicarb and chloride arenormal. Calcium is 10.6. Hepatic panel shows an AST 54, total bilirubin 1.1, alkaline phosphatase 166. Urinalysis shows trace amount of blood, 100 protein, 3 red cells, 1 white cell, few bacteria and some squamous epithelial cells. Chest x-ray looks unremarkable to me, and a VQ scan shows no evidence for PE. EKG is a normal sinus rhythm. EMERGENCY DEPARTMENT COURSE: A 30-year-old woman who presents with a syncopal episode at home, bleeding and clots 2 days ago with no vaginal bleeding now. She is a week and I think at risk for PE. With her abdominal pain and reported chills and fevers, I would wonder about endometritis, although I think it is unlikely given her vaginal delivery, which sounds uncomplicated, reviewing Dr. Solis's note. She has had a similar sensation of abdominal cramping with some retained products; however, her bleeding stopped now, and I think this is unlikely to be the issue today. As above, I thinkher leukocytosis reflects more hemoconcentration as clinically, I suspect her hemoglobin to be low. Therefore, my suspicion is still low for infection even though her white count is elevated. With the VQ scan being normal, I think this makes a blood clot less likely to be the cause of her syncope. I suspect instead actually that she is just dehydrated. She has not been eating a lot at home. She has had increased stool production and urinary frequency and may have fallen behind volume candelario. This, I think, would explain her elevated creatinine and lab values. She was given almost 3 liters here in the department and still feels kind of weak and shaky, although she does feel better. Her blood pressures have come up. I did a VQ scan because of the elevated creatinine and my concern about giving her any dye. I think the safest thing for her given her presentation, lab abnormalities and clinical constellation is for an admission. We can continue to hydrate her, repeat labs to make sure these are improving. She develops a headache with hydration. I do not find any evidence at this point for SIADH, and with her low blood pressure, consider different adrenal problems, but does not sound like she has any significant hypotension with her delivery. She was actual ly preeclamptic, and so I think at this point, what we can do is just admit her, continued IV hydrate her and recheck labs and see how she does. I spoke with Dr. Solis, who is on-call, about the OB implications, and at this point, my feeling is that endometritis, retained for placenta is o unlikely. Her belly pain improves with hydration, and I suspect this is related again more to dehydration. Dr. Arteaga accepts the patient. She is admitted in a stable condition. Her headache responds to Reglan and Benadryl, and I wonder if this may be kind of a migraine type headache. It may also fit with dehydration. I also gave her some Toradol prior to getting her creatinine back and ordered 2 litersfor her to be given over one hour each and then she receives an additional portion of a liter of fluids over her remaining time in the ED. The patient is comfortable with the plan. She is stable at thetime of admission. EMERGENCY DEPARTMENT DISPOSITION: Admission to floor. Though she had a syncopal episode, I do not think represents a cardiac abnormality. I do not think she has cardiac monitoring. EMERGENCY DEPARTMENT FINAL IMPRESSION: 1. Syncope. 2. Weakness and dehydration. 3. Leukocytosis and hemoconcentration. 4. . 5. Headache, suspect migraine type. 6. Elevated anion gap and creatinine, suspect related to dehydration. ADDENDUM to #[id number]: T: 08/04/2006 08:48 Document: [id number]: [id number] Electronically signed on 08/22/2006 09:23 by WOODROW KING MD MT: [id number] Name: COURTNEY LIZAMA Account: [id number] : 1975 Visit Date: 07/02/2006 Document: [id number] cc: Kendra Plata MD documented in this encounter Plan of Treatment Not on filedocumented as of this encounter Visit Diagnoses Not on filedocumented in this encounter Care Teams Job Lithographer Relationship Specialty Start Date End Date Félix Arteaga MD PCP - General 06/25/05 08/29/14 [facility] [address] [place] [address] documented as of this encounter
--- OUTSIDE RECORDS SUMMARY | 2022-02-16 11:01 | XMS_ITS | Encounter Summary ---
:1975 Author Organization [place] Address [address] [place] [address] Care Team Providers Name Role Phone Félix Arteaga MD Primary Care Provider + Encounter Details Date Type Department Care Team Description 05/14/2005 Historic Results INTERFACED REPORT Negrita Renee MD [facility] OBGYN CONSULTS [address] [place] [address] (Wo rk) Social History Tobacco Use Types Packs/Day Years Used Date Smoking Tobacco: Never Alcohol Use Standard Drinks/Week Comments Not Asked 0 (1 standard drink = 0.6 oz pure alcoho l) Sex Assigned at Date Recorded Not on file documented as of this encounter Plan of Treatment Not on filedocumented as of this encounter Procedures Procedure Name Priority Date/Time Associated Comments Diagnosis HEMOGLOBIN STAT 05/14/2005 9:42 AM Results f or this FILAMENT SHAPER procedure are i n the results section. ABO/RH TYPE AND STAT 05/14/2005 9:42 AM Result s for this SCREEN FILAMENT SHAPER procedure are i n the results section. documented in this encounter Results Hemoglobin (05/14/2005 9:42 AM FILAMENT SHAPER) P athologist Signature Hemoglobin 12.0 11.7 - 15.7 MISYS g/dL Specimen Anatomical Collection Method Collection Time Receive d Time (Source) Location / / Volume Laterality 05/14/2005 9:42 AM 6 9:17 FILAMENT SHAPER AM FILAMENT SHAPER Shanel Renee MD LAB - BLOOD ORDERABLES Performing Organization Address City/State/[facility] Code Phon e Number MISYS ABO/Rh type and screen (05/14/2005 9:42 AM FILAMENT SHAPER) Analysis Performed At Patho logist Time Signature ABO O MISYS RH(D) Pos MISYS Antibody Neg MISYS Screen Specimen 05/17/2005 MISYS Expires Specimen Anatomical Collection Method Collection Time Receive d Time (Source) Location / / Volume Laterality 05/14/2005 9:42 AM 6 9:17 FILAMENT SHAPER AM FILAMENT SHAPER Shanel Renee MD LAB - BLOOD BANK TEST ORDER Performing Organization Address City/[facility] Phon e Number MISYS documented in this encounter Visit Diagnoses Not on filedocumented in this encounter Care Teams Candy Mixer Relationship Specialty Start Date End Date Félix Arteaga MD PCP - General 06/25/05 08/29/14 [facility] [address] [place] [address] documented as of this encounter
--- OUTSIDE RECORDS SUMMARY | 2022-02-16 11:01 | XMS_ITS | Encounter Summary ---
:1975 Author Organization [place] Address [address] [facility] [place] [address] Care Team Providers Name Role Phone Félix Arteaga MD Primary Care Provider + Encounter Details Date Type Department Care Team Description 11/11/2007 Historic Results INTERFACED REPORT Johnny Graf MD [facility] [address] [place], [place] [phone] (Wo rk) Social History Tobacco Use Types [...] with platelets differential (11/11/2007 1:15 PM CDT) [facility] Method Time Signature MCV 91 78 - [...] UA with microscopic (11/11/2007 1:10 PM CDT) [facility] gist Method Time Signature Source Midstream MISYS Urine Color Urine Yellow MISYS Appearance Urine Clear MISYS Glucose Urine Negative NEG mg/dL MISYS Bilirubin Urine Negative NEG MISYS Ketones Urine Negative NEG mg/dL MISYS Specific [place] 1.019 1.003 - MISYS Urine 1.035 Blood [...] on filedocumented in this encounter Care Teams Layer Out Plate Glass Relationship Specialty Start Date End Date Félix Arteaga MD PCP - General 06/25/05 08/29/14 [facility] [address] [place] [address] documented as of this encounter
--- OUTSIDE RECORDS SUMMARY | 2022-02-16 11:01 | XMS_ITS | Encounter Summary ---
:1975 Author Organization [place] Address [address] [facility] [place] [address] Care Team Providers Name Role Phone Félix Arteaga MD Primary Care Provider + Encounter Details Date Type Department Care Team Description 06/21/2006 Historic Results [facility] Estelle Solis MD [facility] CONSULT [address] [facility] [address] [place], [place] [phone] (Wo rk) Social History Tobacco Use [...] 06/21/2006 6:52 AM Results f or this ADVISOR CONSULTANT procedure are i n the results section . documented in this encounter Results (ABNORMAL) Hemoglobin (06/21/2006 6:52 AM ADVISOR CONSULTANT) P athologist Signature Hemoglobin 10.0 (L) 11.7 - 15.7 MISYS g/dL Specimen Anatomical Collection Method Collection Time Receive d Time (Source) Location / / Volume Laterality 06/21/2006 6:52 AM 7 7:00 ADVISOR CONSULTANT PM ADVISOR CONSULTANT Kendra Solis MD LAB - BLOOD ORDERABLES Performing Organization Address City/State/ZIP Code Phon e Number MISYS documented in this encounter Visit Diagnoses Not on filedocumented in this encounter Care Teams Manager Renewable Energy Relationship Specialty Start Date End Date Félix Arteaga MD PCP - General 06/25/05 08/29/14 [facility] [address] [place] [address] documented as of this encounter
--- OUTSIDE RECORDS SUMMARY | 2022-02-16 11:01 | XMS_ITS | Encounter Summary ---
:1975 Author Organization [place] Address [address] [facility] [address] Care Team Providers Name Role Phone Félix [...] 06/16/2006 3:40 PM Results f or this WATER MAIN INSPECTOR procedure are i n the results section. UREA NITROGEN (BUN) STAT 06/16/2006 3:40 PM Re sults for this WATER MAIN INSPECTOR procedure are i n the results section. PLATELET COUNT STAT 06/16/2006 3:40 PM Results for this WATER MAIN INSPECTOR procedure are i n the results section. CREATININE Routine 06/16/2006 3:40 PM Results f or this WATER MAIN INSPECTOR procedure are i n the results section. CK TOTAL STAT 06/16/2006 3:40 PM Results f or this WATER MAIN INSPECTOR procedure are i n the results section. AST STAT 06/16/2006 3:40 PM Results f or this WATER MAIN INSPECTOR procedure are i n the results section. ALT STAT 06/16/2006 3:40 PM Results f or this WATER MAIN INSPECTOR procedure are i n the results section. ROUTINE UA WITH Routine 06/16/2006 2:55 PM Result s for this MICROSCOPIC WATER MAIN INSPECTOR procedure are i n the results section. documented in this encounter Results AST (06/16/2006 3:40 PM WATER MAIN INSPECTOR) P athologist Signature AST 31 0 - 45 U/L [facility] Specimen Anatomical Collection Method Collection Time Receive d Time (Source) Location / / Volume Laterality 06/16/2006 3:40 PM 7 3:13 WATER MAIN INSPECTOR PM WATER MAIN INSPECTOR Tea Mckenna MD LAB - BLOOD ORDERABLES Performing Organization Address City/State/ZIP Code Phon e Number [facility] ALT (06/16/2006 3:40 PM WATER MAIN INSPECTOR) P athologist Signature ALT 26 0 - 50 U/L [facility] Specimen Anatomical Collection Method Collection Time Receive d Time (Source) Location / / Volume Laterality 06/16/2006 3:40 PM 7 3:13 WATER MAIN INSPECTOR PM WATER MAIN INSPECTOR Tea Mckenna MD LAB - BLOOD ORDERABLES Performing Organization Address City/[facility] Code Phon e Number MIS[facility] Uric acid (06/16/2006 3:40 PM WATER MAIN INSPECTOR) athologist Signature Uric Acid 5.8 2.5 - 6.2 [facility] mg/dL Specimen Anatomical Collection Method Collection Time Receive d Time (Source) Location / / Volume Laterality 06/16/2006 3:40 PM 7 3:13 WATER MAIN INSPECTOR PM WATER MAIN INSPECTOR Tea Mckenna MD LAB - BLOOD ORDERABLES Performing Organization Address [facility] Code Phon e Number [facility] Platelet count (06/16/2006 3:40 PM WATER MAIN INSPECTOR) P athologist Signature Platelet Count 183 150 - 450 [facility] 10e9/L Specimen Anatomical Collection Method Collection Time Receive d Time (Source) Location / / Volume Laterality 06/16/2006 3:40 PM 7 3:13 WATER MAIN INSPECTOR PM WATER MAIN INSPECTOR Tea Mckenna MD LAB - BLOOD ORDERABLES Performing Organization Address City/State/ZIP Code Phon e Number [place] CK total (06/16/2006 3:40 PM WATER MAIN INSPECTOR) P athologist Signature CK Total 108 32 - 200 U/L [facility] Specimen Anatomical Collection Method Collection Time Receive d Time (Source) Location / / Volume Laterality 06/16/2006 3:40 PM 7 3:13 WATER MAIN INSPECTOR PM WATER MAIN INSPECTOR Tea Mckenna MD LAB - BLOOD ORDERABLES Performing Organization Address City/State/ZIP Code Phon e Number [facility] Urea nitrogen (06/16/2006 3:40 PM WATER MAIN INSPECTOR) athologist Signature Urea Nitrogen 6 5 - 24 [facility] mg/dL Specimen Anatomical Collection Method Collection Time Receive d Time (Source) Location / / Volume Laterality 06/16/2006 3:40 PM 7 3:13 WATER MAIN INSPECTOR PM WATER MAIN INSPECTOR Tea Mckenna MD LAB - BLOOD ORDERABLES Performing Organization Address City/State/ZIP Code Phon e Number [facility] (ABNORMAL) Creatinine (06/16/2006 3:40 PM WATER MAIN INSPECTOR) [facility] Signature Creatinine 0.54 (L) 0.60 - MIS[facility] 1.30 mg/dL GFR Estimate >90 >60 [facility] mL/min/1.7 m2 GFR Estimate If >90 >60 [facility]IS[facility] Black mL/min/1.7 m2 Specimen Anatomical Collection Method Collection Time Receive d Time (Source) Location / / Volume Laterality 06/16/2006 3:40 PM 7 4:20 WATER MAIN INSPECTOR PM WATER MAIN INSPECTOR Tea Mckenna MD LAB - BLOOD ORDERABLES Performing Organization Address City/[facility]/ZIP Code Phon e Number MIS[facility] (ABNORMAL) Routine UA with microscopic (06/16/2006 2:55 PM WATER MAIN INSPECTOR) [facility] gist Method Time Signature Source Midstream MIS[facility] Urine Color Urine Yellow [facility] Appearance Urine Clear [facility] Glucose Urine Negative NEG mg/dL M[facility] Bilirubin Urine Negative NEG [facility]IS[facility] Ketones Urine Negative NEG mg/dL [facility] Specific [place] 1.006 1.003 - MIS[facility] Urine 1.035 Blood [...] Volume Laterality 06/16/2006 2:55 PM 7 3:09 WATER MAIN INSPECTOR PM WATER MAIN INSPECTOR Tea Mckenna MD LAB - URINE ORDERABLES Performing Organization Address City/State/ZIP Code Phon e Number MIS[facility] documented in this encounter Visit Diagnoses Not on filedocumented in this encounter Care Teams Reinforced Ironworker Relationship Specialty Start Date End Date Félix Arteaga MD PCP - General 06/25/05 08/29/14 [facility] [address] [place] [address] documented as of this encounter
--- OUTSIDE RECORDS SUMMARY | 2022-02-16 11:01 | XMS_ITS | Encounter Summary ---
:1975 Author Organization [place] Address [address] [place] [address] Care Team Providers Name Role Phone Félix Arteaga MD Primary Care Provider + Encounter Details Date Type Department Care Team Description 08/28/2005 Operative Report Breana Caruso (Sports Doctor) MD Jovani [facility] SHUCKER CONSULT [address] [place] [address] (Wo rk) Social History [...] RANGEL MD MT: [id number] Name: COURTNEY HANSEN Account: [id number] : 1975 Procedure Date: 08/28/2005 Document: [id number] documented in this encounter Plan of Treatment Not on filedocumented as of this encounter Visit Diagnoses Not on filedocumented in this encounter Care Teams Wheel Fitter Relationship Specialty Start Date End Date Félix Arteaga MD PCP - General 06/25/05 08/29/14 [facility] [address] [place] [address] documented as of this encounter
--- OUTSIDE RECORDS SUMMARY | 2022-02-16 11:01 | XMS_ITS | Encounter Summary ---
:1975 Author Organization [place] Address [address] [place] [address] Care Team Providers Name Role Phone Félix Arteaga MD Primary Care Provider + Reason for Visit Reason Comments Urinary Problem urinary symptoms x2 days, c/ o urine frequency Encounter Details Date Type Department Care Team Description 01/21/2007 Office Visit [facility] Félix Arteaga RIN TRACT INFECTION NOS (Primary Dx); [facility] [place] Redd Baxter MD [place] [address] [place], [place] [address] [address] [phone] [place], [place] [address] (Wo rk) Social History Tobacco Use Types Packs/Day Years Used Date Smoking Tobacco: Never Alcohol Use Standard Drinks/Week Comments Not Asked 0 (1 standard drink = 0.6 oz pure alcoho l) Sex Assigned at Date Recorded Not on file documented as of this encounter Last Filed Vital Signs Vital Sign Reading Time Taken Comments Blood Pressure 120/82 01/21/2007 11:00 AM CDT Pulse 80 01/21/2007 11:00 AM CDT Temperature 36.7 ??C (98 ??F) 01/21/2007 11:00 AM CDT Respiratory Rate 16 01/21/2007 11:00 AM CDT Oxygen Saturation - - Inhaled Oxygen Concentration - - Weight 69.4 kg (153 lb) 01/21/2007 11:00 AM CDT Height - - Body Mass Index 26.68 07/11/2006 1:45 PM WASTE EXAMINER documented in this encounter Progress Notes Félix Arteaga - 01/21/2007 11:16 AM CDT SUBJECTIVE: Alyssa Aguillon is a 31 year old female who complains of urinary frequency, urgency and dysuria x 3 days, without flank pain, fever, chills, or abnormal vaginal discharge or bleeding. Shetook 3 pills of amoxicillin she had at home. OBJECTIVE: BP 120/82 Pulse 80 Temp (Src) 98 (Oral) Resp 16 Wt 153 lbs (69.4kg) LMP Appears well, in no apparent distress. Vital signs are normal. The abdomen is soft without tenderness, guarding, mass, rebound or organomegaly. No CVA tenderness or inguinal adenopathy noted. LABS: Office Visit on 01/21/2007 Component Date Value Range Status ??? COLOR 01/21/2007 Yellow - Final ??? APPEARANCE 01/21/2007 Clear - Final ??? GLUCOSE (URINE) (mg/dL) 01/21/2007 Negative NEG- Final ??? BILI (URINE) 01/21/2007 Negative NEG- Final ??? KETONE (URINE) (mg/dL) 01/21/2007 Negative NEG- Final ??? SPECIFIC GRAVITY 01/21/2007 1.015 1.003-1.035 Final ??? BLOOD (URINE) 01/21/2007 Negative NEG- Final ??? pH, Urine (pH) 01/21/2007 5.5 5.0-7.0 Final ??? Protein, Albumin (mg/dL) 01/21/2007 Negative NEG- Final ??? UROBILINOGEN (EU/dL) 01/21/2007 0.2 0.2-1.0 Final ??? NITRITE 01/21/2007 Negative NEG- Final ??? Leuk Esterase 01/21/2007 Negative NEG- Final ??? Source 01/21/2007 Midstream Urine - Final ASSESSMENT: UTI uncomplicated without evidence of pyelonephritis PLAN: Treatment per orders - also push fluids, may use Pyridium OTC prn. Call or return to clinic prn if these symptoms worsen or fail to improve as anticipated. Féilx Arteaga MD [facility] documented in this encounter Nursing Notes 01/21/2007 11:00 AM CDT >> ROMELIA AWAN 01/21/2007 10:51 am Patient presents with: Urinary Problem - urinary symptoms x2 days, c/o urine frequency Initial BP 120/82 Pulse 80 Temp (Src) 98 (Oral) Resp 16 Wt 153 lbs (69.4kg) LMP PostpartumEstimated Body mass index is 26.67 kg/(m^2) as calculated from: Height of 5' 3.5 (1.613 m) as of 07/11/06 Weight of 153 lbs (69.400 kg) as of this encounter. BP completed using cuff size large Romelia Awan/INSTALLATION ENGINEER documented in this encounter Plan of Treatment Not on filedocumented as of this encounter Procedures Procedure Name Priority Date/Time Associated Diagnosis Comme nts HCL UA MICRO IF Routine 01/21/2007 10:45 AM Dysuria Resul ts for this POSITIVE CDT procedure are i n the results section. documented in this encounter Results UA MICRO IF POSITIVE (01/21/2007 10:45 AM CDT) [facility] gist Method Time Signature Color Urine Yellow [facility] Appearance Urine Clear [facility] Glucose Urine Negative NEG mg/dL [facility] Bilirubin Urine Negative NEG [facility] Ketones Urine Negative NEG mg/dL [facility] Specific [place] 1.015 1.003 - [place] Urine 1.035 [facility] Blood Urine Negative NEG [facility] pH Urine 5.5 5.0 - 7.0 [place] pH [facility] Protein Albumin Negative NEG mg/dL [facility] Urobilinogen 0.2 0.2 - 1.0 [place] Urine EU/dL [facility] Nitrite Urine Negative NEG [facility] Leukocyte Negative NEG [place] Esterase Urine [facility] Source Midstream [place] Urine [facility] Specimen Anatomical Collection Method Collection Time Receive d Time (Source) Location / / Volume Laterality 01/21/2007 10:45 01/21/2007 AM CDT 10:48 AM CDT Félix Arteaga MD LABORATORY Performing Organization Address City/State/ZIP Code Phon e Number [facility] [address] [place] [address] [facility] documented in this encounter Visit Diagnoses Diagnosis Urinary tract infection, site not specif ied - Primary Dysuria documented in this encounter Care Teams Explosives Handler Relationship Specialty Start Date End Date Félix Arteaga MD PCP - General 06/25/05 08/29/14 [facility] [address] [address] documented as of this encounter
--- OUTSIDE RECORDS SUMMARY | 2022-02-16 11:01 | XMS_ITS | Encounter Summary ---
:1975 Author Organization [place] Address [address] [facility] [address] Care Team Providers Name Role Phone Félix [...] as of this encounter Progress Notes Interface, Customer Service Cashier - 07/23/2010 7:27 PM CDT Patient Status Patient Status Physical status - Stable (s/s of potential complications absent or manageable) Psychosocial status - Stable Discharge Planning Patient Care Unit - [facility] Phone Number - [phone] Discharge To - Home Method of discharge - Ambulatory Transportation - Private Follow Up Care Primary physician name - Chandler When to see physician - 1-2 weeks Signatures Kathia Stroud (RN) Author: - Patient Status, Discharge Planning, Follow Up Care Entered: - Patient Status, Discharge Planning, Follow Up Care documented in this encounter Plan of Treatment Not on filedocumented as of this encounter Visit Diagnoses Not on filedocumented in this encounter Care Teams Pediatric Neurologist Relationship Specialty Start Date End Date Félix Arteaga MD PCP - General 06/25/05 08/29/14 [facility] [address] [address] documented as of this encounter
--- OUTSIDE RECORDS SUMMARY | 2022-02-16 11:01 | XMS_ITS | Encounter Summary ---
:1975 Author Organization [place] Address [address] [place] [address] Care Team Providers Name Role Phone Félix Arteaga MD Primary Care Provider + Encounter Details Date Type Department Care Team Description 05/16/2005 Historic Results INTERFACED REPORT Negrita Renee MD [facility] CONSULTS [address] [place] [address] (Wo rk) Social History Tobacco Use Types [...] 05/16/2005 6:30 AM Results f or this RAW STOCK MACHINE FEEDER procedure are i n the results section . documented in this encounter Results (ABNORMAL) Hemoglobin (05/16/2005 6:30 AM RAW STOCK MACHINE FEEDER) P athologist Signature Hemoglobin 10.7 (L) 11.7 - 15.7 [facility] g/dL Specimen (Source) Anatomical Collection Method Collection Time Re ceived Time Location / / Volume Laterality 05/16/2005 6:30 AM 6 RAW STOCK MACHINE FEEDER Shanel Renee MD LAB - BLOOD ORDERABLES Performing Organization Address City/State/ZIP Code Phon e Number [facility] documented in this encounter Visit Diagnoses Not on filedocumented in this encounter Care Teams Ending Machine Operator Relationship Specialty Start Date End Date Félix Arteaga MD PCP - General 06/25/05 08/29/14 [facility] [address] [facility] [address] documented as of this encounter
--- OUTSIDE RECORDS SUMMARY | 2022-02-16 11:01 | XMS_ITS | Encounter Summary ---
:1975 Author Organization [place] Address [address] [facility] [place] [address] Care Team Providers Name Role Phone Félix Arteaga MD Primary Care Provider + Encounter Details Date Type Department Care Team Description 07/03/2006 Results Only [facility] Results MD Vega [facility] [address] [facility] [address] [place], [place] [address] (Wo rk) Social History [...] Procedures Procedure Name Priority Date/Time Associated Diagnosis [facility] RT DUPLEX Routine 07/03/2006 10:41 PM Results for this EXTREM VENOUS,UNI QUILLER HAND procedure are in OR LTD the results section. documented in this encounter Results RT DUPLEX EXTREM VENOUS,UNI OR LTD (07/03/2006 10:41 PM QUILLER HAND) Anatomical Region Laterality Modality Other Specimen (Source) Anatomical Collection Method Collection Time Re ceived Time Location / / Volume Laterality 07/03/2006 10:41 PM QUILLER HAND Impressions 07/03/2006 10:56 PM QUILLER HAND EXAM: ??Right lower extremity venous ult rasound HISTORY: Right leg pain. FINDINGS: The right leg ??venous ultraso und is negative ??for DVT. ??The veins do ??augment and compress normaly. ??No ??thrombus is seen. IMPRESSION: 1. ?? Negative for Deep Venous Thrombosi s. Rohith August MD [facility] documented in this encounter Visit Diagnoses Not on filedocumented in this encounter Care Teams Auto Electrician Relationship Specialty Start Date End Date Félix Arteaga MD PCP - General 06/25/05 08/29/14 [facility] [address] [place] [address] documented as of this encounter
--- OUTSIDE RECORDS SUMMARY | 2022-02-16 11:01 | XMS_ITS | Encounter Summary ---
:1975 Author Organization [place] Address [facility] [facility] [place] [address] Care Team Providers Name Role Phone Félix Arteaga MD Primary Care Provider + Encounter Details Date Type Department Care Team Description 08/28/2005 Historic Results INTERFACED REPORT Ekaterina Caruso MD [facility] DRY WALL INSTALLATIONS MECHANIC CONSULT [address] [place] [address] (Wo rk) Social History [...] AM 6 8:08 CDT AM CDT Breana Rangel MD LAB - URINE ORDERABLES Performing Organization Address City/State/ZIP Code Phon e Number [facility] Histopathology (08/28/2005 12:00 AM CDT) Component Value Ref Test Analysis Performed At [facility] Range Method Time Signature Copath Report CASE: [id number] ^ COPATH Patient Name: COURTNEY HANSEN MR#: [id number] Specimen #: [id number] Collected: 08/28/2005 Received: 08/28/2005 Reported: 08/29/2005 15:36 [...] type cyst. SML/sg DT/08-29-05 TESTING LAB LOCATION: [address] ??[address] COLLECTION SITE: Client: [facility] Location: SDS (R) Specimen (Source) Anatomical Collection Method Collection Time Re ceived Time Location / / Volume Laterality 08/28/2005 08/29/2005 3:37 PM CDT Breana Rangel MD LAB - COPATH SPECIAL DIAG O RDERABLES Performing Organization Address City/State/ZIP Code Phon e Number [facility] documented in this encounter Visit Diagnoses Not on filedocumented in this encounter Care Teams Vp Compliance Relationship Specialty Start Date End Date Félix Arteaga MD PCP - General 06/25/05 08/29/14 [facility] [address] [address] documented as of this encounter
--- OUTSIDE RECORDS SUMMARY | 2022-02-16 11:01 | XMS_ITS | Encounter Summary ---
:1975 Author Organization [place] Address [address] [facility] [place] [address] Care Team Providers Name Role Phone Félix Arteaga MD Primary Care Provider + Encounter Details Date Type Department Care Team Description 07/02/2006 Historic Results INTERFACED REPORT Interface, Marquez cisneros MD Social History Tobacco Use Types Packs/Day Years Used Date Smoking Tobacco: Never Alcohol Use Standard Drinks/Week Comments Not Asked 0 (1 standard drink = 0.6 oz pure alcoho l) Sex Assigned at Date Recorded Not on file documented as of this encounter Plan of Treatment Not on filedocumented as of this encounter Procedures Procedure Name Priority Date/Time Associated Diagnosis Comme nts EKG 12 LEAD Routine 07/02/2006 12:14 PM Results for this COMMERCIAL FLOOR COVERING INSTALLER procedure are i n the results section . documented in this encounter Results EKG 12 LEAD (07/02/2006 12:14 PM COMMERCIAL FLOOR COVERING INSTALLER) Component Value Ref Range Test Analysis Performed Pathologis t Method Time At Signature Ventricular Rate 70 BPM RADIOLOGY RESULTS Atrial Rate 70 BPM RADIOLOGY RESULTS TX Interval 140 ms RADIOLOGY RESULTS QRS Duration 86 ms RADIOLOGY RESULTS QT 384 ms RADIOLOGY RESULTS QTc 414 ms RADIOLOGY RESULTS P [place] 57 degrees RADIOLOGY RESULTS R AXIS 69 degrees RADIOLOGY RESULTS T [place] 53 degrees RADIOLOGY RESULTS Interpretation AGE AND GENDER SPECIFIC ECG ANALYSIS RADIOLOGY ECG Sinus rhythm RESULTS Normal ECG Unconfirmed report - interpretation of this ECG is compute r generated - see medical record for final interpretation Specimen Anatomical Collection Method Collection Time Receive d Time (Source) Location / / Volume Laterality 07/02/2006 12:14 07/03/2006 PM COMMERCIAL FLOOR COVERING INSTALLER 10:10 AM COMMERCIAL FLOOR COVERING INSTALLER Transcripton Interface ECG ORDERABLES Performing Organization Address City/State/ZIP Code Phon e Number RADIOLOGY RESULTS documented in this encounter Visit Diagnoses Not on filedocumented in this encounter Care Teams Mophead Sewer Relationship Specialty Start Date End Date Félix Arteaga MD PCP - General 06/25/05 08/29/14 [facility] [address] [place] [address] documented as of this encounter
--- OUTSIDE RECORDS SUMMARY | 2022-02-16 11:01 | XMS_ITS | Encounter Summary ---
:1975 Author Organization [place] Address [address] [facility] [place] [address] Care Team Providers Name Role Phone Félix Arteaga MD Primary Care Provider + Reason for Visit Reason Comments UTI frequency- not going alot, c onstipated, had a baby 3 weeks ago- has had sx since Encounter Details Date Type Department Care Team Description 07/11/2006 Office Visit [facility] Meg Solorio TR ACT INFECTION NOS (Primary Dx); [facility] [place] MD Julia [employer]NSPEC CON[employer]IPATION [address] [place], [place] CLINIC [address] [place] [address] [place] [address] Social History Tobacco Use Types Packs/Day Years Used Date Smoking Tobacco: Never Alcohol Use Standard Drinks/Week Comments Not Asked 0 (1 standard drink = 0.6 oz pure alcoho l) Sex Assigned at Date Recorded Not on file documented as of this encounter Last Filed Vital Signs Vital Sign Reading Time Taken Comments Blood Pressure 126/86 07/11/2006 1:45 PM RN TEACHER Pulse - - Temperature - - Respiratory Rate - - Oxygen Saturation - - Inhaled Oxygen Concentration - - Weight 72.1 kg (159 lb) 07/11/2006 1:45 PM RN TEACHER Height 161.3 cm (5' 3.5) 07/11/2006 1:45 PM RN TEACHER Body Mass Index 27.72 07/11/2006 1:45 PM RN TEACHER documented in this encounter Progress Notes Meg [...] Tract Infec tion Results for this (MISYS) RN TEACHER Nos procedure are i n the results section. HCL UA MICRO IF Routine 07/11/2006 2:27 PM Urin Tract Infectio n Results for this POSITIVE RN TEACHER Nos procedure are i n the results section. CL AFF MICRO Routine 07/11/2006 2:27 PM Urin Tract Infection R esults for this EXAM-URINE RN TEACHER Nos procedure are i n the results section. documented in this encounter Results (ABNORMAL) MICRO EXAM-URINE (07/11/2006 2:27 PM RN TEACHER) [facility] Method Time Signature WBC Urine >100 (A) 0 - 2 [place] /HPF [facility] RBC Urine 50-100 (A) 0 - 2 [facility] /HPF [facility] Squamous EPI Few FEW /LPF [facility] Bacteria Urine Moderate (A) NEG /HPF [facility] Specimen Anatomical Collection Method Collection Time Receive d Time (Source) Location / / Volume Laterality 07/11/2006 2:27 PM 7 2:29 RN TEACHER PM RN TEACHER Meg Solorio MD LABORATORY Performing Organization Address City/State/ZIP Code Phon e Number [address] [address] [facility] CULTURE, URINE (MISYS) (07/11/2006 2:27 PM RN TEACHER) [facility] Method Time Signature Specimen Midstream Urine [place] Description [facility] Culture Micro >100,000 [place] colonies/mL [facility] coli Report status FINAL [id number] [facility] Specimen Anatomical Collection Method Collection Time Receive d Time (Source) Location / / Volume Laterality 07/11/2006 2:27 PM 7 2:29 RN TEACHER PM RN TEACHER Organism Antibiotic Method Susceptibility >100,000 colonies/ml Amoxicillin/Clav [...] MD LABORATORY Performing Organization Address City/State/ZIP Code [facility] e Number M [address] [place] [address] [phone] [facility] (ABNORMAL) UA MICRO IF POSITIVE (07/11/2006 2:27 PM RN TEACHER) [facility] Method Time Signature Color Urine Yellow [facility] Appearance Urine Cloudy [facility] Glucose Urine Negative NEG mg/dL [facility] Bilirubin Urine Negative NEG [facility] Ketones Urine Negative NEG mg/dL [facility] Specific [place] 1.025 1.003 - [place] Urine 1.035 [facility] Blood Urine Large (A) NEG [facility] pH Urine 5.5 5.0 - 7.0 [place] pH [facility] Protein Albumin 100 (A) NEG mg/dL [place] Urine [facility] Urobilinogen 0.2 0.2 - 1.0 [place] Urine EU/dL [facility] Nitrite Urine Positive (A) NEG [facility] Leukocyte Moderate (A) NEG [place] Esterase Urine [facility] Source Midstream [place] Urine [facility] Specimen Anatomical Collection Method Collection Time Receive d Time (Source) Location / / Volume Laterality 07/11/2006 2:27 PM 7 2:29 RN TEACHER PM RN TEACHER Meg Solorio MD LABORATORY Performing Organization Address City/State/[facility] Code Phon e Number [facility] [address] [place] [address] [facility] documented in this encounter Visit Diagnoses Diagnosis Urinary tract infection, site not specif ied - Primary Unspecified constipation documented in this encounter Care Teams Radio Station Operator Relationship Specialty Start Date End Date Félix Arteaga MD PCP - General 06/25/05 08/29/14 [facility] [address] [place] [address] [place] [address] documented as of this encounter
--- OUTSIDE RECORDS SUMMARY | 2022-02-16 11:01 | XMS_ITS | Encounter Summary ---
:1975 Author Organization [place] Address [address] [place] [address] Care Team Providers Name Role Phone Unavailable Primary Care Provider Unavailable Encounter Details Date Type Department Care Team Description 05/14/2005 Delivery Summary Petra Denis MD (Textile Colorist Dyer) [facility] [address] [place], [place] [address] (Wo rk) Social History Tobacco Use Types Packs/Day Years Used Date Smoking Tobacco: Never Alcohol Use Standard Drinks/Week Comments Not Asked 0 (1 standard drink = 0.6 oz pure alcoho l) Sex Assigned at Date Recorded Not on file documented as of this encounter Progress Notes Petra Denis - 05/14/2005 11:59 PM GRADUATE INTERNSHIP PRELIMINARY PATIENT IDENTIFICATION: Courtney Hansen is a [...] x3 and this was followed by Pitocin perprotocol. She received an epidural for labor analgesia [...] and weight was 8pounds 0 ounces. The was a vigorous female. THIRD STAGE: The placenta delivered spontaneously and intact with gentle cord traction by me at 0130 a.m. Uterine tone was excellent. An intravenous Pitocin was administered. The perineum was inspected and there were no lacerations. condition is satisfactory for both mother and infant. PETRA DENIS MD TAZ: COOPER Name: COURTNEY HANSEN Account: [id number] : 1975 Delivery Date: 05/14/2005 Document: [id number] [employer] documented in this encounter Plan of Treatment Not on filedocumented as of this encounter Visit Diagnoses Not on filedocumented in this encounter
--- OUTSIDE RECORDS SUMMARY | 2022-02-16 11:01 | XMS_ITS | Encounter Summary ---
:1975 Author Organization [place] Address [address] [facility] [place] [address] Care Team Providers Name Role Phone Félix Arteaga MD Primary Care Provider + Encounter Details Date Type Department Care Team Description 06/19/2006 [facility] MD Sasha [address] [address] [place] [phone] (Wo rk) Social History Tobacco Use Types [...] 5:00 PM Result s for this MICROSCOPIC ADJUNCT PROFESSOR procedure are i n the results section. HEMOGRAM AND PLATELET STAT 06/19/2006 3:25 PM Results for this ADJUNCT PROFESSOR procedure are i n the results section. URIC ACID STAT 06/19/2006 3:25 PM Results f or this ADJUNCT PROFESSOR procedure are i n the results section. UREA NITROGEN (BUN) STAT 06/19/2006 3:25 PM Re sults for this ADJUNCT PROFESSOR procedure are i n the results section. CREATININE STAT 06/19/2006 3:25 PM Results f or this ADJUNCT PROFESSOR procedure are i n the results section. AST STAT 06/19/2006 3:25 PM Results f or this ADJUNCT PROFESSOR procedure are i n the results section. ALT STAT 06/19/2006 3:25 PM Results f or this ADJUNCT PROFESSOR procedure are i n the results section. documented in this encounter Results (ABNORMAL) Routine UA with microscopic (06/19/2006 5:00 PM ADJUNCT PROFESSOR) [facility] Method Time Signature Source Midstream MISYS Urine Color Urine Yellow MISYS Appearance Urine Slightly MISYS Cloudy Glucose Urine Negative NEG mg/dL MISYS Bilirubin Urine Negative NEG [facility]IS[facility] Ketones Urine Negative NEG mg/dL MIS[facility] Specific [place] 1.014 1.003 - MISYS Urine 1.035 Blood [...] Volume Laterality 06/19/2006 5:00 PM 7 5:13 ADJUNCT PROFESSOR PM ADJUNCT PROFESSOR Snow Rocha MD LAB - URINE ORDERABLES Performing Organization Address City/State/ZIP Code Phon e Number [place]IS[place] ALT (06/19/2006 3:25 PM ADJUNCT PROFESSOR) athologist Signature ALT 26 0 - 50 U/L [place]IS[place] Specimen Anatomical Collection Method Collection Time Receive d Time (Source) Location / / Volume Laterality 06/19/2006 3:25 PM 7 3:04 ADJUNCT PROFESSOR PM ADJUNCT PROFESSOR Snow Rocha MD LAB - BLOOD ORDERABLES Performing Organization Address City/State/ZIP Code Phon e Number [place] AST (06/19/2006 3:25 PM ADJUNCT PROFESSOR) athologist Signature AST 35 0 - 45 U/L MIS[facility] Specimen Anatomical Collection Method Collection Time Receive d Time (Source) Location / / Volume Laterality 06/19/2006 3:25 PM 7 3:04 ADJUNCT PROFESSOR PM ADJUNCT PROFESSOR Snow Rocha MD LAB - BLOOD ORDERABLES Performing Organization Address City/State/ZIP Code Phon e Number [place] (ABNORMAL) Uric acid (06/19/2006 3:25 PM ADJUNCT PROFESSOR) athologist Signature Uric Acid 6.6 (H) 2.5 - 6.2 [place] mg/dL Specimen Anatomical Collection Method Collection Time Receive d Time (Source) Location / / Volume Laterality 06/19/2006 3:25 PM 7 3:04 ADJUNCT PROFESSOR PM ADJUNCT PROFESSOR Snow Rocha MD LAB - BLOOD ORDERABLES Performing Organization Address City/State/ZIP Code Phon e Number [place] Creatinine (06/19/2006 3:25 PM ADJUNCT PROFESSOR) athologist Signature Creatinine 0.62 0.60 - [place]IS[place] 1.30 mg/dL GFR Estimate >90 >60 MIS[place] mL/min/1.7 m2 GFR Estimate If >90 >60 MISYS Black mL/min/1.7 m2 Specimen Anatomical Collection Method Collection Time Receive d Time (Source) Location / / Volume Laterality 06/19/2006 3:25 PM 7 3:04 ADJUNCT PROFESSOR PM ADJUNCT PROFESSOR Snow Rocha MD LAB - BLOOD ORDERABLES Performing Organization Address City/State/ZIP Code Phon e Number [place] (ABNORMAL) Hemogram and platelet (06/19/2006 3:25 PM ADJUNCT PROFESSOR) Analysis Performed At [facility] logist Time Signature MCV 89 78 - [...] Volume Laterality 06/19/2006 3:25 PM 7 3:04 ADJUNCT PROFESSOR PM ADJUNCT PROFESSOR Snow Rocha MD LAB - BLOOD ORDERABLES Performing Organization Address City/[facility] Code Phon e Number MISYS Urea nitrogen (06/19/2006 3:25 PM ADJUNCT PROFESSOR) P athologist Signature Urea Nitrogen 7 5 - 24 MISYS mg/dL Specimen Anatomical Collection Method Collection Time Receive d Time (Source) Location / / Volume Laterality 06/19/2006 3:25 PM 7 3:04 ADJUNCT PROFESSOR PM ADJUNCT PROFESSOR Snow Rocha MD LAB - BLOOD ORDERABLES Performing Organization Address City/[facility]/ZIP Code Phon e Number MISYS documented in this encounter Visit Diagnoses Not on filedocumented in this encounter Care Teams Fitness And Wellness Director Relationship Specialty Start Date End Date Félix Arteaga MD PCP - General 06/25/05 08/29/14 [facility] [address] [place] [address] documented as of this encounter
--- OUTSIDE RECORDS SUMMARY | 2022-02-16 11:01 | XMS_ITS | Encounter Summary ---
:1975 Author Organization [place] Address [address] [facility] [place] [address] Care Team Providers Name Role Phone Félix Arteaga MD Primary Care Provider + Encounter Details Date Type Department Care Team Description 07/02/2006 Results [facility] Loc King MD Hospital Results EMERGENCY PHYSI XIOMY PA [address] [place], [place] [address] (Wo rk) Social History Tobacco Use Types [...] 3:16 PM Resu lts for this SCAN SUGAR CONTROLLER procedure are i n the results section. HC CHEST TWO VIEWS, Routine 07/02/2006 1:35 PM Re sults for this FRONT/LAT SUGAR CONTROLLER procedure are i n the results section. documented in this encounter Results LUNG PERFUSION IMAGING (07/02/2006 3:16 PM SUGAR CONTROLLER) Anatomical Region Laterality Modality Other Specimen (Source) Anatomical Collection Method Collection Time Re ceived Time Location / / Volume Laterality 07/02/2006 3:16 PM SUGAR CONTROLLER Impressions 07/02/2006 3:19 PM SUGAR CONTROLLER EXAM: ??NM LUNG PERFUSION SCAN HISTORY: ??syncope, ??Eval for PE, TECHNIQUE: 3 mCi Tc MAA. FINDINGS: Negative. No evidence for PE. Loc King MD SPECIAL IMAGING STUDIES CHEST X-RAY 2 VW (07/02/2006 1:35 PM SUGAR CONTROLLER) Anatomical Region Laterality Modality Other Specimen (Source) Anatomical Collection Method Collection Time Re ceived Time Location / / Volume Laterality 07/02/2006 1:35 PM SUGAR CONTROLLER Impressions 07/02/2006 2:28 PM SUGAR CONTROLLER EXAM: ??CHEST TWO VIEW* HISTORY: ??Chest Pain, ?? FINDINGS: Negative. Loc King MD GENERAL IMAGING documented in this encounter Visit Diagnoses Not on filedocumented in this encounter Care Teams Appointment Specialist Relationship Specialty Start Date End Date Félix Arteaga MD PCP - General 06/25/05 08/29/[address] [address] [place] [address] documented as of this encounter
--- OUTSIDE RECORDS SUMMARY | 2022-02-16 11:01 | XMS_ITS | Encounter Summary ---
:1975 Author Organization [place] Address [address] [facility] [place] [address] Care Team Providers Name Role Phone Félix Arteaga MD Primary Care Provider + Encounter Details Date Type Department Care Team Description 11/11/2007 Emergency room [facility] Maximino Graf, Hospital Results MD EMERGENCY PHYSIC [place] [address] [facility] [address] [place] [address] (Wo rk) Social History Tobacco Use Types Packs/Day Years Used Date Smoking Tobacco: Never Alcohol Use Standard Drinks/Week Comments Not Asked 0 (1 standard drink = 0.6 oz pure alcoho l) Sex Assigned at Date Recorded Not on file documented as of this encounter Progress Notes Maximino Graf - 11/15/2007 12:01 AM CDT FINAL CHIEF [...] GRAF MD MT: [id number] Name: COURTNEY LIZAMA Account: [id number] : 1975 Visit Date: 11/11/2007 Document: [id number] cc: Félix Arteaga MD documented in this encounter Plan of Treatment Not on filedocumented as of this encounter Visit Diagnoses Not on filedocumented in this encounter Care Teams Card Folder Relationship Specialty Start Date End Date Félix Arteaga MD PCP - General 06/25/05 08/29/14 [facility] [address] [place] [address] documented as of this encounter
--- OUTSIDE RECORDS SUMMARY | 2022-02-16 11:01 | XMS_ITS | Encounter Summary ---
:1975 Author Organization [place] Address [address] [facility] [place] [address] Care Team Providers Name Role Phone Félix Arteaga MD Primary Care Provider + Encounter Details Date Type Department Care Team Description 06/20/2006 Historic Results [facility] Estelle Solis MD [facility] CONSULT [address] [facility] [address] [place] [address] (Wo rk) Social History [...] 06/20/2006 3:50 PM Results f or this PHOTO BOOTH OPERATOR procedure are i n the results section . documented in this encounter Results (ABNORMAL) Magnesium (06/20/2006 3:50 PM PHOTO BOOTH OPERATOR) athologist Signature Magnesium 4.1 (HH) 1.6 - 2.3 MISYS mg/dL Comment: Critical Value called to and read back shantel [place]) ON [id number] @ 1633 BY RS Specimen Anatomical Collection Method Collection Time Receive d Time (Source) Location / / Volume Laterality 06/20/2006 3:50 PM 7 4:00 PHOTO BOOTH OPERATOR PM PHOTO BOOTH OPERATOR Kendra Solis MD LAB - BLOOD ORDERABLES Performing Organization Address City/State/ZIP Code Phon e Number MISYS documented in this encounter Visit Diagnoses Not on filedocumented in this encounter Care Teams Manager Of Network Relationship Specialty Start Date End Date Félix Arteaga MD PCP - General 06/25/05 08/29/14 [facility] [address] [place] [address] documented as of this encounter
--- OUTSIDE RECORDS SUMMARY | 2022-02-16 11:01 | XMS_ITS | Encounter Summary ---
:1975 Author Organization [place] Address [address] [facility] [place] [address] Care Team Providers Name Role Phone Félix [...] as of this encounter Progress Notes Interface, Bag Liner - 07/23/2010 7:31 PM CDT General Information General Information <R> How to be addressed - Pema <R> Emergency Medical Technician Basic Needed - No Patient Contact Information <R> salesperson flowers to notify: - Earl Romeoley <R> Phone 1: - [phone] Cell Phone: - [phone] Advance Directive Advanced Health Care Directive Information <R> Do you have a Advance Health Care Directive? - No Can patient name a Surrogate Decision Maker? (Not legally binding) - Yes Surrogate Name: - Hernandez Aguillon Surrogate Home Phone Number: - [phone] <R> Would you like to receive information [...] Values/Beliefs/Spiritual Care <R> Would you like pastoral care/clergy/sports health club membership advisors notified? - Does not wish to have anyone contacted Mutuality/Individual Preferences Mutuality/Preferences <R> What information would help us give you more personalized care? - none <R> What if any limitations on visitors, TV or phone calls would you like - Enrique Mae (RN) Author: - General Information, Advance Directive, [...] on filedocumented in this encounter Care Teams Feeder Loader Relationship Specialty Start Date End Date Félix Arteaga MD PCP - General 06/25/05 08/29/14 [facility] [address] [place] [address] documented as of this encounter
--- OUTSIDE RECORDS SUMMARY | 2022-02-16 11:01 | XMS_ITS | Encounter Summary ---
:1975 Author Organization [place] Address [address] [facility] [place] [facility] [place] [address] Care Team Providers Name Role Phone Félix Arteaga MD Primary Care Provider + Reason for Referral Specialty Diagnoses / Procedures Referred By Contact Refer red To Contact Félix Arteaga MD [facility] [address] [place] [address] Referral ID Status Reason Start Date Expiration Date Visits Requ ested Visits Authorized Encounter Details Date Type Department Care Team Description 11/02/2007 Orders Only [facility] Félix Arteaga IAGNOSIS NOT YET [facility] [place] Redd Baxter MD DEFINED (Primary Dx) [address] [place], [place] WELLNESS [address] [address] [phone] [place], [place] [address] (Wo rk) Social History [...] Primary documented in this encounter Care Teams Eating Disorder Specialist Relationship Specialty Start Date End Date Félix Arteaga MD PCP - General 06/25/05 08/29/14 [facility] [address] [place] [address] documented as of this encounter
--- OUTSIDE RECORDS SUMMARY | 2022-02-16 11:01 | XMS_ITS | Encounter Summary ---
:1975 Author Organization [place] Address [address] [facility] [place] [address] Care Team Providers Name Role Phone Félix Arteaga MD Primary Care Provider + Encounter Details Date Type Department Care Team Description 07/02/2006 Discharge Summary [facility] Willard Green MD (Manufacturing Maintenance Manager) [address] [place] [address] [phone] (Wo rk) Social History Tobacco Use Types Packs/Day Years Used Date Smoking Tobacco: Never Alcohol Use Standard Drinks/Week Comments Not Asked 0 (1 standard drink = 0.6 oz pure alcoho l) Sex Assigned at Date Recorded Not on file documented as of this encounter Progress Notes Willard Green - 07/07/2006 9:46 AM FIRST COAT OPERATOR FINAL HOSPITAL COURSE: Patient is a 30-year-old [...] None. The patient is educated to take pdzd-ddh-vvsriuo maximum strength Pepto-Bismol 5-10 cc q.h. x4 [...] GREEN MD MT: EM#[id number] Name: COURTNEY LIZAMA MRN: [id number] Account: [id number] : 1975 Admit Date: Discharge Date: 07/04/2006 Document: [id number] T COAT OPERATOR documented in this encounter Plan of Treatment Not on filedocumented as of this encounter Visit Diagnoses Not on filedocumented in this encounter Care Teams Concrete Products Dispatcher Relationship Specialty Start Date End Date Félix Arteaga MD PCP - General 06/25/05 08/29/14 [facility] [address] [place] [address] documented as of this encounter
--- OUTSIDE RECORDS SUMMARY | 2022-02-16 11:01 | XMS_ITS | Encounter Summary ---
:1975 Author Organization [place] Address [address] [facility] [place] [address] Care Team Providers Name Role Phone Félix Arteaga MD Primary Care Provider + Encounter Details Date Type Department Care Team Description 06/20/2006 Delivery Summary [facility] Jared Solis ([facility]) [facility] CONS[facility] [address] [phone] Social History Tobacco Use Types Packs/Day Years Used Date Smoking Tobacco: Never Alcohol Use Standard Drinks/Week Comments Not Asked 0 (1 standard drink = 0.6 oz pure alcoho l) Sex Assigned at Date Recorded Not on file documented as of this encounter Progress Notes Jared Solis - 07/11/2006 8:54 AM NETWORK PROGRAMMER FINAL This patient is a 30-year-old G7, [...] pushed twice and delivered a viable male infant from the OA position at 14:47. Apgars [...] CATHLEEN#[id number] Name: COURTNEY LIZAMA MRN: [id number] Account: [id number] : 1975 Delivery Date: 06/20/2006 Document: [id number] ORK PROGRAMMER documented in this encounter Plan of Treatment Not on filedocumented as of this encounter Visit Diagnoses Not on filedocumented in this encounter Care Teams Geophysical Data Technician Relationship Specialty Start Date End Date Félix Arteaga MD PCP - General 06/25/05 08/29/14 [facility] [address] [place] [address] documented as of this encounter
--- OUTSIDE RECORDS SUMMARY | 2022-02-16 11:01 | XMS_ITS | Encounter Summary ---
:1975 Author Organization [place] Address [address] [place] [address] Care Team Providers Name Role Phone Félix Arteaga MD Primary Care Provider + Reason for Visit Reason Comments Pharyngitis st x 1 day, Encounter Details Date Type Department Care Team Description 03/18/2006 Office Visit [facility] Félix Arteaga CUTLong URI NOS (Primary Dx); Clinic [place] Redd Baxter MD ACUTE PHARYNGITIS [address] [place], [place] [address] [address] [phone] [place], [place] [address] (Wo rk) Social History Tobacco Use Types Packs/Day Years Used Date Smoking Tobacco: Never Alcohol Use Standard Drinks/Week Comments Not Asked 0 (1 standard drink = 0.6 oz pure alcoho l) Sex Assigned at Date Recorded Not on file documented as of this encounter Last Filed Vital Signs Vital Sign Reading Time Taken Comments Blood Pressure 112/60 03/18/2006 2:00 PM DRY YARD WORKER Pulse - - Temperature 36.8 ??C (98.2 ??F) 03/18/2006 2:00 PM DRY YARD WORKER Respiratory Rate - - Oxygen Saturation - - Inhaled Oxygen Concentration - - Weight 78 kg (172 lb) 03/18/2006 2:00 PM DRY YARD WORKER Height 163.8 cm (5' 4.5) 03/18/2006 2:00 PM DRY YARD WORKER Body Mass Index 29.07 03/18/2006 2:00 PM DRY YARD WORKER documented in this encounter Progress Notes Damir Arteagaer - 03/18/2006 2:26 PM CST SUBJECTIVE: Alyssa [...] relieve her nasal congestion and post-nasal drainage. CONNER HernandezS/ Félix Arteaga MD [facility] YARD WORKER documented in this encounter Nursing Notes 03/18/2006 2:00 PM CST >> BRITTNI MINISTERIO 03/18/2006 2:17 pm Patient presents with: Pharyngitis [...] Acute Pharyngitis Re sults for this CONFIRM DRY YARD WORKER procedure are i n the results section. HCL STREP GROUP A Routine 03/18/2006 2:17 PM Acute Pharyngitis Results for this AG (RAPID) DRY YARD WORKER procedure are i n the results section. documented in this encounter Results BETA STREP CONFIRM (03/18/2006 2:17 PM DRY YARD WORKER) Component Value Ref Test Analysis Performed At [facility] [employer] Range Method Time Signature Specimen Throat [facility] LAB Culture Micro No Beta [place] Streptococcus [facility] LAB Report status FINAL [id number] [facility] LAB Specimen Anatomical Collection Method Collection Time Receive d Time (Source) Location / / Volume Laterality 03/18/2006 2:17 PM 6 2:22 DRY YARD WORKER PM DRY YARD WORKER Félix Arteaga MD LABORATORY Performing Organization Address City/State/ZIP Code Phon e Number [facility] [address] [place] [address] [facility] LAB STREP GROUP A AG (RAPID) (03/18/2006 2:17 PM DRY YARD WORKER) Component Value Ref Test Analysis Performed At [facility] gist Range Method Time Signature Specimen Throat [facility] Rapid Strep A NEGATIVE: No Group A strepto coccal antigen detected by immunoassay, await [place] Screen culture report. [facility] LAB Report status FINAL [id number] [facility] Specimen Anatomical Collection Method Collection Time Receive d Time (Source) Location / / Volume Laterality 03/18/2006 2:17 PM 6 2:22 DRY YARD WORKER PM DRY YARD WORKER Félix Arteaga MD LABORATORY Performing Organization Address City/State/[facility] Code Phon e Number [facility] [address] [place] [address] [facility] documented in this encounter Visit Diagnoses Diagnosis Acute upper respiratory infections of un specified site - Primary Acute pharyngitis documented in this encounter Care Teams Speech Correction Assistant Relationship Specialty Start Date End Date Félix Arteaga MD PCP - General 06/25/05 08/29/14 [facility] [place] [address] [place] [address] documented as of this encounter
--- OUTSIDE RECORDS SUMMARY | 2022-02-16 11:01 | XMS_ITS | Encounter Summary ---
:1975 Author Organization [place] Address [address] [facility] [place] [address] Care Team Providers Name Role Phone Félix Arteaga MD Primary Care Provider + Encounter Details Date Type Department Care Team Description 12/24/2005 Historic Results [facility] Rohith Plata MD [address] 1 31 [address] [place] [address] [phone] (Wo rk) Social History Tobacco Use Types [...] Associated Diagnosis Comme nts FIRST TRIMESTER Routine 12/24/2005 3:28 PM Result s for this SCREEN BIOCHEM CDT procedure are in MARKERS the results section. documented in this encounter Results First trimester scrn chrom 7 18 (12/24/2005 3:28 PM CDT) P athologist Signature First Trimester (Note) [facility] Screen Biochem Markers Comment: Patient Information: Name ?:COURTNEY LIZAMA Client ID ? :[id number] Date of ?? :[birth year] ??(Age at ED C:30) Mat. Weight ? :140 Ethinicity ?:White Prev Child Hx ?? :None Report Date ? :12/27/05 Mult Preg. ?:No NT (mm) ? :1.0 CRL ??(mm) ? :57.4 U/S Date ?:12/24/05 GA @ U/S ?:12w1d(CRL) Draw Date ? :12/24/05 GA @ Draw ? :12w1d RESULT: Free Beta hCG (MOM) ?:0.89 ? Percentiles:50 DARY-A (MOM) ? :1.06 ? Percentiles:50 Nuchal Transl. (Delta) :-0.47 RISK TABLE DOWN SYNDROME - ?1st Trimester Cut-off ?:1 i n 302 ?Before Screening ? :1 in 452 ?After Screening ?: 1 in 9,021 ?RESULTS ? :With in Range TRISOMY 18/13 - ?1st Trimester Cut-off ?:1 i n 150 ?Before Screening ? :1 in 801 ?After Screening ?: 1 in >10,000 ?RESULTS ?:Within Range Maternal serum AFP screening (and/or angelica gnostic testing) for open neural tube defects indicated on or abou t 01/20/06. Signed Out: Stephen Copeland, PhD., Lab June patino CAUTION: These results do not eliminate the possibility that this may be associated with d efects (including Down Syndrome, Trisomy 18 and Trisomy 13) or other complications. Down syndrome and Trisomy 18/13 screening is investigational. Assayed at: [facility] ? [place], [place] ??[address] Specimen Anatomical Collection Method Collection Time Receive d Time (Source) Location / / Volume Laterality 12/24/2005 3:28 PM 6 3:13 CDT PM CDT Rohith Plata MD LAB - BLOOD ORDERABLES Performing Organization Address City/State/ZIP Code Phon e Number [facility] documented in this encounter Visit Diagnoses Not on filedocumented in this encounter Care Teams System Administration Manager Relationship Specialty Start Date End Date Félix Arteaga MD PCP - General 06/25/05 08/29/14 [facility] [place] [address] [place] [address] documented as of this encounter
--- OUTSIDE RECORDS SUMMARY | 2022-02-16 11:01 | XMS_ITS | Encounter Summary ---
:1975 Author Organization [place] Address [address] [place] [address] Care Team Providers Name Role Phone Félix Arteaga MD Primary Care Provider + Encounter Details Date Type Department Care Team Description 07/02/2006 Admission [facility] [place] Félix Arteaga (Data Warehouse Consultant) [facility] [place] [address] [facility] [address] [address] [phone] [place], [place] [address] (Wo rk) Social History Tobacco Use Types Packs/Day Years Used Date Smoking Tobacco: Never Alcohol Use Standard Drinks/Week Comments Not Asked 0 (1 standard drink = 0.6 oz pure alcoho l) Sex Assigned at Date Recorded Not on file documented as of this encounter Progress Notes Félix Arteaga - 07/07/2006 8:51 PM TELECOMMUNICATION OPERATOR FINAL CHIEF COMPLAINT: Dizziness. HISTORY OF [...] CATHLEEN#[id number] Name: COURTNEY LIZAMA MRN: [id number] Account: [id number] : 1975 Admitted: [id number] Document: [id number] COMMUNICATION OPERATOR documented in this encounter Plan of Treatment Not on filedocumented as of this encounter Visit Diagnoses Not on filedocumented in this encounter Care Teams Car Sales Consultant Relationship Specialty Start Date End Date Félix Arteaga MD PCP - General 06/25/05 08/29/14 [facility] [address] [place] [address] documented as of this encounter
--- OUTSIDE RECORDS SUMMARY | 2022-02-16 11:01 | XMS_ITS | Encounter Summary ---
:1975 Author Organization [place] Address [address] [facility] [address] Care Team Providers Name Role Phone Félix Arteaga MD Primary Care Provider + Encounter Details Date Type Department Care Team Description 07/03/2006 Historic Results [facility] Damir Arteaga [facility] [place] [address] [facility] [address] [address] [phone] [place], [place] [address] (Wo rk) Social History [...] 6:45 AM Results f or this PLATELET CREPING MACHINE OPERATOR procedure are i n the results section. BASIC METABOLIC Routine 07/03/2006 6:45 AM Result s for this PANEL CREPING MACHINE OPERATOR procedure are i n the results section. documented in this encounter Results (ABNORMAL) Hemogram and platelet (07/03/2006 6:45 AM CREPING MACHINE OPERATOR) P athologist Signature MCV 88 78 - [...] Volume Laterality 07/03/2006 6:45 AM 7 8:19 CREPING MACHINE OPERATOR PM CREPING MACHINE OPERATOR Félix Arteaga MD LAB - BLOOD ORDERA BLES Performing Organization Address City/State/ZIP Code Phon e Number [facility] (ABNORMAL) Basic metabolic panel (07/03/2006 6:45 AM CREPING MACHINE OPERATOR) P athologist Signature Sodium 143 133 - [...] Volume Laterality 07/03/2006 6:45 AM 7 8:19 CREPING MACHINE OPERATOR PM CREPING MACHINE OPERATOR Félix Arteaga MD LAB - BLOOD ORDERA [place] Performing Organization Address City/State/ZIP Code Phon e Number [facility] documented in this encounter Visit Diagnoses Not on filedocumented in this encounter Care Teams Corporate Tutor Relationship Specialty Start Date End Date Félix Arteaga MD PCP - General 06/25/05 08/29/14 [facility] [place] [address] [place] [address] documented as of this encounter
--- OUTSIDE RECORDS SUMMARY | 2022-02-16 11:01 | XMS_ITS | Encounter Summary ---
:1975 Author Organization [place] Address [address] [facility] [place] [address] Care Team Providers Name Role Phone Félix Arteaga MD Primary Care Provider + Reason for Visit Reason Comments URI uri symptoms x1 week, c/o ST , [place], fatigue Encounter Details Date Type Department Care Team Description 04/16/2006 Office Visit [facility] Félix Arteaga CUTLong SINUSITIS NOS (Primary Dx); Clinic [place] Redd Baxter MD ACUTE PHARYNGITIS [address] [place], [place] [address] [address] [phone] [place], [place] [address] (Wo rk) Social History Tobacco Use Types Packs/Day Years Used Date Smoking Tobacco: Never Alcohol Use Standard Drinks/Week Comments Not Asked 0 (1 standard drink = 0.6 oz pure alcoho l) Sex Assigned at Date Recorded Not on file documented as of this encounter Last Filed Vital Signs Vital Sign Reading Time Taken Comments Blood Pressure 120/74 04/16/2006 10:30 AM ROTO ROOTER OPERATOR Pulse 80 04/16/2006 10:30 AM ROTO ROOTER OPERATOR Temperature 36.5 ??C (97.7 ??F) 04/16/2006 10:30 AM ROTO ROOTER OPERATOR Respiratory Rate 16 04/16/2006 10:30 AM ROTO ROOTER OPERATOR Oxygen Saturation - - Inhaled Oxygen Concentration - - Weight 78.9 kg (174 lb) 04/16/2006 10:30 AM ROTO ROOTER OPERATOR Height - - Body Mass Index 29.41 03/18/2006 2:00 PM ROTO ROOTER OPERATOR documented in this encounter Progress Notes Félix [...] clinic if not improving Félix Arteaga MD [facility] ROOTER OPERATOR documented in this encounter Nursing Notes 04/16/2006 10:30 AM CST >> ROMELIA AWAN 04/16/2006 10:31 am Patient presents with: URI [...] Acute Pharyngitis R esults for this CONFIRM ROTO ROOTER OPERATOR procedure are i n the results section. HCL STREP GROUP A Routine 04/16/2006 10:42 AM Acute Pharyngiti s Results for this AG (RAPID) ROTO ROOTER OPERATOR procedure are i n the results section. documented in this encounter Results BETA STREP CONFIRM (04/16/2006 10:42 AM ROTO ROOTER OPERATOR) Component Value Ref Test Analysis Performed At [facility] gist Range Method Time Signature Specimen Throat [facility] LAB Culture Micro No Beta [place] Streptococcus [facility] LAB Report status FINAL [id number] [facility] Specimen Anatomical Collection Method Collection Time Receive d Time (Source) Location / / Volume Laterality 04/16/2006 10:42 04/16/2006 AM ROTO ROOTER OPERATOR 10:45 AM ROTO ROOTER OPERATOR Félix Arteaga MD LABORATORY Performing Organization Address City/State/ZIP Code Phon e Number [facility] [phone] [place] [phone] [facility] LAB STREP GROUP A AG (RAPID) (04/16/2006 10:42 AM ROTO ROOTER OPERATOR) Component Value Ref Test Analysis Performed At [facility] gist Range Method Time Signature Specimen Throat [facility] LAB Rapid Strep A NEGATIVE: No Group A strepto coccal antigen detected by immunoassay, await [place] Screen culture report. [facility] LAB Report status FINAL [id number] [facility] Specimen Anatomical Collection Method Collection Time Receive d Time (Source) Location / / Volume Laterality 04/16/2006 10:42 04/16/2006 AM ROTO ROOTER OPERATOR 10:45 AM ROTO ROOTER OPERATOR Félix Arteaga MD LABORATORY Performing Organization Address City/State/ZIP Code Phon e Number [facility] [address] [place] [address] [facility] documented in this encounter Visit Diagnoses Diagnosis Acute sinusitis, unspecified - Primary Acute pharyngitis documented in this encounter Care Teams Photograph Developer Relationship Specialty Start Date End Date Félix Arteaga MD PCP - General 06/25/05 08/29/14 [facility] [address] [address] documented as of this encounter
--- OUTSIDE RECORDS SUMMARY | 2022-02-16 11:02 | XMS_ITS ---
[...] *Notes: thrombosed external hemorrhoid 08/11/2020 , Transvaginal [id number] a [address] [facility] [address] [place] [address] (Work Place) Notes: 10/01/2019: *Procedure Name: Hy steroscopy - D & C 12/13/2019: *Procedure Name: *OTHER DYNAMICS AX CONSULTANT Surgery Results Lab Results None recorded. Past Encounters None recorded. Social History Tobacco Smoking Status Former Smoker [...]
--- OUTSIDE RECORDS SUMMARY | 2022-02-16 11:02 | XMS_ITS | Encounter Summary ---
:1975 Author Organization [place] Address [address] [facility] [place] [address] Care Team Providers Name Role Phone Félix Arteaga MD Primary Care Provider + Encounter Details Date Type Department Care Team Description 11/13/2004 Historic Results INTERFACED REPORT Harriet Elizondo XXX NO INFO FOUN D XXX [address] [place], [place] [address] (Wo rk) Social History Tobacco Use Types Packs/Day Years Used Date Smoking Tobacco: Never Assessed Sex Assigned at Date Recorded [...] Trisomy 18 screening is investigational. Assayed at: [facility] [employer] ? [place], [place] ??[id number] Specimen Anatomical Collection Method Collection Time Receive d Time (Source) Location / / Volume Laterality 11/13/2004 10:20 11/13/2004 AM CDT 10:16 AM CDT Rachael [facility] LAB - BLOOD ORDERABLES Performing Organization Address City/State/ZIP Code Phon e Number [facility] documented in this encounter Visit Diagnoses Not on filedocumented in this encounter Care Teams Tail Dogger Relationship Specialty Start Date End Date Félix Arteaga MD PCP - General 06/25/05 08/29/14 [facility] [address] [place] [address] documented as of this encounter
--- OUTSIDE RECORDS SUMMARY | 2022-02-16 11:02 | XMS_ITS | Encounter Summary ---
:1975 Author Organization [place] Address [address] [facility] [place] [address] Care Team Providers Name Role Phone Unavailable Primary Care Provider Unavailable Reason for Visit Reason Comments URI sinus congestion and 2 days EDC 05/18/2005 Encounter Details Date Type Department Care Team Description 01/01/2005 Office Visit [facility] Stephen Vlila AC ECTOR URI NOS Clinic Thi Carreno MD (Primary Dx) [address] [place], [place] SERVICE [address] [address] [facility] [phone] [address] [place], [place] [address] (Wo rk) Social History Tobacco [...] Notes 01/01/2005 9:15 AM CDT >> QUE SILVEIRA 01/01/2005 9:21 am Alyssa Craven presents for sinus congestion/URI x 2 days - 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 Initial BP 102/72 Pulse 96 Temp (Src) 98.1 (Oral) Resp 12 Ht 5' 4.5 (1.64m) Wt 161 lbs (73.0kg) LMP OB (05/18/05) Body Mass Index is 27.22 kg/(m^2).. BP completed using cuff size: large, right arm Que Silveira LPN documented in this encounter Plan of [...] gist Range Method Time Signature Specimen Throat [place] Description [facility] LAB Culture Micro No Beta [place] Streptococcus [facility] LAB Report status FINAL [id number] [facility] Specimen Anatomical Collection Method Collection Time Receive d Time (Source) Location / / Volume Laterality 01/01/2005 9:25 AM 5 9:30 CDT AM CDT Stephen Villa MD LABORATORY Performing Organization Address [facility] Phon e Number [facility] [phone] [place] [address] [facility] LAB STREP GROUP A AG (RAPID) (01/01/2005 9:25 AM CDT) Component Value Ref Test Analysis Performed At [facility] gist Range Method Time Signature Specimen Throat [facility] LAB Rapid Strep A NEGATIVE: No Group A strepto coccal antigen detected by immunoassay, await [place] Screen culture report. [facility] LAB Report status FINAL [id number] [facility] Specimen Anatomical Collection Method Collection Time Receive d Time (Source) Location / / Volume Laterality 01/01/2005 9:25 AM 5 9:30 CDT AM CDT Stephen Villa MD LABORATORY Performing Organization Address [facility] Phon e Number [facility] [phone] [place] [address] [facility] documented in this encounter Visit Diagnoses Diagnosis Acute upper respiratory infections of un specified site - Primary documented in this encounter
--- OUTSIDE RECORDS SUMMARY | 2022-02-16 11:02 | XMS_ITS | Encounter Summary ---
:1975 Author Organization [place] Address [address] [place] [address] Care Team Providers Name Role Phone Félix Arteaga MD Primary Care Provider + Encounter Details Date Type Department Care Team Description 11/13/2004 Historic [facility] INTERFACED REPORT Kristine Forbes ret, [address] [address] Social History Tobacco Use Types Packs/Day Years Used Date Smoking Tobacco: Never Assessed Sex Assigned at Date Recorded Not on file documented as of this encounter Progress Notes Asha Forbes GC - 04/10/2011 2:21 AM FULL DECATOR OPERATOR November 28, 2004 Rachael Elizondo, N.P. Re: Alyssa Craven MR [id number] 1975 Dear Ms. Elizondo: This letter will summarize my discussion that took place with your patient, Alyssa Craven, on November 13, 2004. All couples face [...] partner have any further questions or concerns ([phone]). I wish them all the best in the future. Sincerely, Tatiana Forbes M.S., C.G.C. Genetic Counselor [place]/[id number] ASHA FORBES CGC 191:1 MT: ?? Document: [id number] CC: ASHA FORBES CGC Alyssa Craven, DECATOR OPERATOR documented in this encounter Plan of Treatment Not on filedocumented as of this encounter Visit Diagnoses Not on filedocumented in this encounter Care Teams [employer] Relationship Specialty Start Date End Date Félix Arteaga MD PCP - General 06/25/05 08/29/14 [facility] [address] [place] [address] documented as of this encounter
--- OUTSIDE RECORDS SUMMARY | 2022-02-16 11:02 | XMS_ITS | Clinical Summary ---
:1975 Author Organization [employer] [facility] [place] [address] Care Team Providers Name Role Phone Pcp, No Primary Care Provider Unavailable Allergies Active Allergy Reactions Severity Noted Date Comments Prochlorperazine *Unknown 01/16/2021 Oseltamivir Hives 07/31/2016 Medications No known medications Active Problems Problem Noted Date History of cervical dysplasia 10/12/2021 H/O LEEP 08/07/2016 Overview: Formatting of this note might be differe nt from the original. 09/24/10: [facility] pap LEEP done, results u nknown. 07/31/16: NIL pap, Neg HR HPV result. Pl an cotest in 1 year per provider. 03/24/18 Patient is lost to pap tracking follow-up. Iron deficiency anemia 09/14/2015 Bulge of lumbar disc without myelopathy 09/15/2013 Menorrhagia 09/24/2010 Immunizations Name Administration Dates Next Due Tdap 10/12/2021, 12/03/2010 Family History Medical History Relation Name Comments Anesthesia Malignant Hyperthermia No Family History Anesthesia Problem No Family History Social History Tobacco Use Types Packs/Day Years Used Date Never Smoker Smokeless Tobacco: Never Used Tobacco Cessation: Counseling Given: Yes Alcohol Use Standard Drinks/Week Comments Not Currently 0 (1 standard drink = 0.6 oz pure alcoho l) Sex Assigned at Date Recorded Not on file Obstetrics History Last Filed Vital Signs Vital Sign Reading Time Taken Comments Blood Pressure 128/90 10/12/2021 2:51 PM CDT Pulse 80 10/12/2021 2:51 PM CDT Temperature 36.7 ??C (98.1 ??F) 10/12/2021 2:51 PM CDT Respiratory Rate - - Oxygen Saturation 100% 10/12/2021 2:51 PM CDT Inhaled Oxygen Concentration - - Weight 80.6 kg (177 lb 9.6 oz) 10/12/2021 2:51 PM CDT Height 162.1 cm (5' 3.82) 10/12/2021 2:51 PM CDT Body Mass Index 30.66 10/12/2021 2:51 PM CDT Plan of Treatment Health Maintenance Due Date Last Done Comments Hepatitis C screening for age 18-79 08/20/1991 Pap test for age 21-65 1994 Colonoscopy through age 75 2018 Lipids for age 45-75 2018 Mammogram for age 45-75 2018 COVID-19 vaccine series (3 - Booster 11/16/2020 09/21/2020, 08/24/2020 for Moderna series) Influenza for age 9-49 01/03/2022 Depression screening for age 12+ 07/31/2022 07/31/2021, BMI (ht and wt on same day) for age 0610/12/2022 10/12/2021, 08/14/2021, 18+ 07/30/2021 Tetanus booster 10/13/2031 10/12/2021, 12/03/2010 Tdap Completed 10/12/2021, 12/03/2010 Results Not on filefrom Last 3 Months Insurance Payer Benefit Plan / Subscriber ID Effective Dates Phone Addre ss Type Group [employer] [id number] 2021-[address]se [id number] ONLY ATTN: BILLING JOSELITO HOOD [id number] [employer] BLUE CROSS OF [id number] 11/02/2018-[facility] t [id number] [place] [address] (Home) JOSELITO TOURE [id number] Care Teams Binding Folder Machine Relationship Specialty Start Date End Date Pcp, No PCP - General 07/30/21 .
== END 2022-02-08 23:37 | disposition home or self-care (01) ==
LOC: AMB 02-16 10:51
PROVIDERS: Visit Provider Internal Medicine
DX: R07.89 Other chest pain (principal); R06.02 Shortness of breath
CPT/HCPCS: A0425; A0427

== ENCOUNTER 2022-02-09 00:10 | Emergency (ER) | payer BC, SELFPAY ==
[2022-02-09 00:15] VITALS: BP 149/89; PULSE 79; RESP 14; TEMP 36.3; O2SAT 100; BMI 27.5
--- NOTE | 2022-02-09 00:36 | CRLHL7_ITS ---
For Patients: As a result of the Century Cures Act, medical imaging exams and procedure reports are released immediately into your electronic medical record. You may view this report before your referring provider. If you have questions, please contact your health care provider. INDICATION: Shortness of breath/cough. TECHNIQUE: Chest 1 views. COMPARISON: February 14, 2021. FINDINGS: Cardiovascular and mediastinum: Heart size and vasculature are normal in caliber and appearance. Lungs and pleural spaces: Lungs are clear. No sign of infiltrate or mass. No sign of pleural effusion. No pneumothorax. Bones and soft tissues: No significant findings. IMPRESSION: No acute findings and no significant changes from the prior exam. Dictated by Roque Dangelo MD @ 02/09/2022 12:58:42 AM (Electronically Signed)
--- NOTE | 2022-02-09 00:41 | ED_ITS ---
HPI - General Adult General Chief complaint: Chest Pain Stated complaint: Chest Pain Time Seen by Provider: 02/09/22 00:19 History of Present Illness HPI narrative: Pt awoke approximately 4 hours ago with a strange sensation in her throat. She became extremely anxious about this and subsequently developed face and lip tingling as well as chest pain. Pt became very concerned that she had COVID and called for an ambulance. She also noted some SOB and mild cough. No fever or chills. Most symptoms have resolved. Pt is noted to have an oxygen saturation of 100% on room air upon arrival and normal slnus rhythm with no ST or T wave changes on EKG. Pt is not really sure what happened but states that this type of thing has not happened in the past. No treatments taken at home. The chest pain was anterior chest approx 4/10. Related Data Home Medications Medication Instructions Recorded Confirmed No Known Home Medications 11/01/21 11/01/21 Allergies Allergy/AdvReac Type Severity Reaction Status Date / Time prochlorperazine AdvReac Mild Verified 11/01/21 15:37 [From Compazine] Review of Systems Status of ROS: Reports: 10 or more systems reviewed and unremarkable except as noted in History and below PFSH PFS Social History Smoking Status: Former smoker Do you use any of these nicotine containing products: None Second hand tobacco smoke exposure: No How often do you have a drink containing alcohol: monthly or less How many standard drinks containing alcohol do you have on a typical day: 1 or 2 How often do you have six or more drinks on one occasion: Never AUDIT-C Alcohol total score: 1 Non-prescribed substance use: denies use service: No Exam Narrative: Exam Narrative: EXAM GENERAL: Patient appears comfortable and well. Anxious. EYES: No scleral icterus. ENT: Tympanic membranes and oropharynx normal. THYROID: no thyroid nodules or thyromegaly. LYMPH: No supraclavicular or cervical lymphadenopathy. SKIN: Visible skin seen during exam normal or with benign process only. EXT: No dependent lower extremity pedal edema. HEART: Regular rate and rhythm with no murmurs, rubs, or gallops. LUNGS: Clear to auscultation bilaterally with no crackles or wheezes. ABD: Soft, non tender, non distended. PSYCH: Good eye contact, speech is not pressured. Const: Vital Signs, click to edit/add: Vital Signs - 24 hr 02/09/22 00:15 02/09/22 00:45 02/09/22 01:34 Temperature 97.4 F L 98.0 F Pulse Rate [Pulse Oximeter] 79 79 Respiratory Rate 14 16 Blood Pressure [Ri ght Upper Arm] 149/89 H 135/79 Pulse Oximetry 100 100 100 Oxygen Delivery Me thod Room Air Room Air Course Course Hospital Course: EKG reviewed. CXR, Troponin, D Dimer, CBC, BMP ordered. Reevaluation(s) Reevaluation #1: Pt feeling better labs and x rays are reassuring. Time: 01:50 Vital Signs Vital signs: Initial Vital Signs Temperature 97.4 F L 02/09/22 00:15 Temperature Source Temporal Artery Scan 02/09/22 00:15 Pulse Rate 79 02/09/22 00:15 Respiratory Rate 14 02/09/22 00:15 Blood Pressure 149/89 H 02/09/22 00:15 Blood Pressure Mean 109 02/09/22 00:15 Blood Pressure Position Sitting 02/09/22 00:15 Pulse Oximetry 100 02/09/22 00:15 Oxygen Delivery Method 02/09/22 00:15 Vital Signs Temperature 97.4 F L 02/09/22 00:15 Pulse Rate 79 02/09/22 00:15 Respiratory Rate 14 02/09/22 00:15 Blood Pressure 149/89 H 02/09/22 00:15 Pulse Oximetry 100 02/09/22 00:15 Oxygen Delivery Method 02/09/22 00:15 Temperature 98.0 F 02/09/22 01:34 Pulse Rate 79 02/09/22 01:34 Respiratory Rate 16 02/09/22 01:34 Blood Pressure 135/79 02/09/22 01:34 Pulse Oximetry 100 02/09/22 01:34 Oxygen Delivery Method 02/09/22 01:34 Medical Decision Making MDM Narrative Medical decision making narrative: Pt presents with chest pain and shortness of breath. Negative covid, chest x ray, ekg, troponin, d dimer, electrolytes and cbc. Pt feeling better requests pain medication. Given single Bradley and discharged home. Differential Diagnosis Differential Diagnosis: ACS, PE, COVID, Pneumonia, Pneumothorax, Bronchitis Angina Lab Data Labs: Lab Results 02/09/22 02/09/22 02/09/22 Range/Units 00:30 00:30 00:30 WBC 7.38 (4.50-11.00) K/uL RBC 4.16 (4.00-5.20) m/uL Hgb 12.6 (12.0-16.0) gm/dL Hct 36.5 (33.0-51.0) % MCV 88 (80-100) fL MCH 30 (26-34) pg MCHC 35 (32-36) gm/dL RDW Coeff of [place]wood 13.3 (11.5-15.5) % Plt Count 270 (140-440) K/uL Neut % (Auto) 64.6 (42.0-72.0) % Lymph % (Auto) 24.8 (20-44) % [place] % (Auto) 8.0 (0.0-11.0) % Eos % (Auto) 1.4 (0.0-7.0) % Baso % (Auto) 0.4 (0.0-3.0) % Neut # (Auto) 4.77 (1.7-7.0) K/uL Lymph # (Auto) 1.83 (0.90-2.90) K/uL [place] # (Auto) 0.60 (0.00-0.90) K/UL Eos # (Auto) 0.10 (0.00-0.50) K/uL Baso # (Auto) 0.03 (0.00-0.30) K/uL Abs Immat Gran (auto) 0.06 (0.00-0.30) K/uL D-Dimer Quant (PE/DVT) < 0.27 (0.00-0.50) ug/ml Sodium 139 (135-149) mmol/L Potassium 3.7 (3.6-5.1) mmol/L Chloride 107 (96-114) mmol/L Carbon Dioxide 22 (20-32) mmol/L BUN 11 (5-24) mg/dL Creatinine 0.6 (0.5-1.5) mg/dL Estimated Creat Clear 99.02 Estimated GFR 111 ml/min Glucose 134 H (60-115) mg/dL Calcium 8.9 (8.4-10.6) mg/dL Troponin I < 0.01 L (0.01-0.04) ng/mL SARS-CoV-2 (PCR) (Negative) 02/09/22 Range/Units 00:30 WBC (4.50-11.00) K/uL RBC (4.00-5.20) m/uL Hgb (12.0-16.0) gm/dL Hct (33.0-51.0) % MCV (80-100) fL MCH (26-34) pg MCHC (32-36) gm/dL RDW Coeff of [place]wood (11.5-15.5) % Plt Count (140-440) K/uL Neut % (Auto) (42.0-72.0) % Lymph % (Auto) (20-44) % [place] % (Auto) (0.0-11.0) % Eos % (Auto) (0.0-7.0) % Baso % (Auto) (0.0-3.0) % Neut # (Auto) (1.7-7.0) K/uL Lymph # (Auto) (0.90-2.90) K/uL [place] # (Auto) (0.00-0.90) K/UL Eos # (Auto) (0.00-0.50) K/uL Baso # (Auto) (0.00-0.30) K/uL Abs Immat Gran (auto) (0.00-0.30) K/uL D-Dimer Quant (PE/DVT) (0.00-0.50) ug/ml Sodium (135-149) mmol/L Potassium (3.6-5.1) mmol/L Chloride (96-114) mmol/L Carbon Dioxide (20-32) mmol/L BUN (5-24) mg/dL Creatinine (0.5-1.5) mg/dL Estimated Creat Clear Estimated GFR ml/min Glucose (60-115) mg/dL Calcium (8.4-10.6) mg/dL Troponin I (0.01-0.04) ng/mL SARS-CoV-2 (PCR) Negative SARS-CoV-2 (Negative) Discharge Plan Discharge Clinical Impression: Chest pain Condition: Stable Instructions: Chest Pain (ED) Additional Instructions: Tylenol Motrin Rest Fluids Follow up with your doctor as needed Activity Level: Activity as Tolerated Discharge Diet: Regular Prescriptions: No Action No Known Home Medications Follow Up/Referrals: Provider,Not a Local [Primary Care Provider] - Stand Alone Forms: [employer] Info Instructions
[2022-02-09 00:45] VITALS: O2SAT 100
[2022-02-09 00:46] LABS: Basophils Absolute Auto 0.03 K/uL (0.00-0.30); Basophils Percent Auto 0.4 % (0.0-3.0); Eosinophils Percent Auto 1.4 % (0.0-7.0); Hematocrit 36.5 % (33.0-51.0); Hemoglobin* 12.6 gm/dL (12.0-16.0); Immature Granulocytes Abs Auto 0.06 K/uL (0.00-0.30); Lymphocytes Absolute Auto 1.83 K/uL (0.90-2.90); Lymphocytes Percent Auto 24.8 % (20-44); Mean Corpuscular HGB Conc 35 gm/dL (32-36); Mean Corpuscular Hemoglobin 30 pg (26-34); Mean Corpuscular Volume 88 fL (80-100); Neutrophils Absolute Auto 4.77 K/uL (1.7-7.0); Neutrophils Percent Auto 64.6 % (42.0-72.0); Platelet Count* 270 K/uL (140-440); RDW Coefficient of Variation % 13.3 % (11.5-15.5); Red Blood Count 4.16 m/uL (4.00-5.20); White Blood Count* 7.38 K/uL (4.50-11.00)
[2022-02-09 00:51] LABS: Slide Review Reflex No
--- OUTSIDE RECORDS SUMMARY | 2022-02-09 00:57 | XMS_ITS | Clinical Summary ---
:1975 Author Organization [facility] Address [address] [place] [address] Care Team Providers Name Role Phone Unavailable Primary Care Provider Unavailable Source Comments Patient records contain information from all sites at [facility]. For routine questions regarding patient records, call [phone] during business hours, M-F 8:00 AM - 5:00 PM Central Time. Record requests for emergency care only can be directed to [phone] at any time.[facility] Medications Medication Sig Dispensed Refills Start Date End Date Status ketorolac (TORADOL) 10 Take 10 mg by 0 06/15/2020 Active mg tablet mouth 3 (three) times a day as needed. lidocaine 2 % mouth RINSE WITH 1 0 06/16/2020 Active solution TABLESPOOON NEEDED FOR DISCOMFORT methylPREDNISolone TAKE BY MOUTH 0 06/16/2020 Active (MEDROL DOSEPAK) 4 mg DIRECTED ON tablet INSIDE OF PACKAGE Active Problems Problem Noted Date Dysphonia 06/24/2020 Social History Tobacco Use Types Packs/Day Years Used Date Smoking Tobacco: Never Assessed Alcohol Habits Answer Date Recorded How often do you have a drink containing alcohol? Monthly or less 06/26/2020 How many drinks containing alcohol do you have on a 1 or 2 06/26/2020 typical day when you are drinking? How often do you have six or more drinks on one Never 06/26/2020 occasion? Comment: Not asked Social Isolation Answer Date Recorded In a typical week, how many times do you More than three viry es a week 06/26/2020 talk on the phone with family, friends, or neighbors? How often do you get together with friends Once a week 06/26/2020 or relatives? How often do you attend congregational or 1 to 4 times per year 06/06 protestant services? Do you belong to any clubs or No 06/26/2020 organizations such as congregational groups, unions, fraternal or athletic groups, or school groups? How often do you attend meetings of the Never 06/26/2020 clubs or organizations you belong to? Are you now , , , 06/26/2020 , never or living with a partner? Physical Activity Answer Date Recorded On average, how many days per week do you engage in moderate to 2 days 06/26/2020 strenuous exercise (like walking fast, running, jogging, dancing, swimming, biking, or other activities that cause a light or heavy sweat)? On average, how many minutes do you engage in exercise at th is 20 min 06/26/2020 level? Stress Answer Date Recorded Do you feel stress - tense, restless, nervous, or Only a lit tle 06/26/2020 anxious, or unable to sleep at night because your mind is troubled all the time - these days? Financial Resource Strain Answer Date Recorded How hard is it for you to pay for the very basics like Not v vik hard 06/26/2020 food, housing, medical care, and heating? Food Insecurity Answer Date Recorded Within the past 12 months, you worried that your food Someti mes true 06/26/2020 would run out before you got money to buy more. Within the past 12 months, the food you bought just Never tr ue 06/26/2020 didn't last and you didn't have money to get more. Transportation Needs Answer Date Recorded In the past 12 months, has lack of transportation kept you f rom No 06/26/2020 medical appointments or from getting medications? In the past 12 months, has lack of transportation kept you f rom No 06/26/2020 meetings, work, or getting things needed for daily living? Education Answer Date Recorded What is the highest level of school you have completed or 12 th grade 06/26/2020 the highest degree you have received? Sex Assigned at Date Recorded Not on file Plan of Treatment Health Maintenance Due Date Last Done Comments CT Colonography 1975 Cervical Cancer Screening 1975 Cologuard 1975 Colonoscopy 1975 Colorectal Cancer Screening 1975 FIT 1975 HIV Screening 1975 Hepatitis B Vaccines (1 of 1975 3 - 3-dose series) Hepatitis C Screening 1975 Lipid (Cholesterol) 1975 Screening Mammogram 1975 COVID-19 Vaccine (3 - 11/16/2020 09/21/2020, 08/24/2020 Booster for Moderna series) Depression Screening 05/05/2021 (Annual PHQ-2) Influenza Vaccine (#1) 2022 Fasting Glucose for 08/12/2023 08/11/2020, 08/09/2020, Diabetes Screening 11/10/2019, Additional history exists DTaP,Tdap,and Td Vaccines 10/13/2031 10/12/2021, 12/03/2010 (3 - Td or Tdap) Pneumococcal vaccine (0-64 Aged Out No lo nger eligible years) based on patient 's age to complete this topic Insurance Payer Benefit Plan Subscriber ID Effective Dates Phone Address Type / Group [facility] [id number] 2020[address] [phone] [address] [address] [address] [facility] [address] [place] [address] (Home) [place] [id number]
--- OUTSIDE RECORDS SUMMARY | 2022-02-09 00:57 | XMS_ITS | Encounter Summary ---
:1975 Author Organization [facility] Address [address] [place] [address] Care Team Providers Name Role Phone Unavailable Primary Care Provider Unavailable Reason for Referral Outpatient (Routine) - Closed Specialty Diagnoses / Procedures Referred By Contact Refer red To Contact Video Medicine Diagnoses Dysphonia Rst [address] [phone] Referral ID Status Reason Start Date Expiration Date Visits Requ ested Visits Authorized [id number] Closed 06/26/2020 06/26/2021 1 1 Scheduling Instructions Please call patient to schedule a follow up appointment in 2 weeks. Thanks RONMENTAL SAFETY SPECIALIST Reason for Visit Outpatient (Routine) - Closed Specialty Diagnoses / Procedures Referred By Contact Refer red To Contact Video Medicine Diagnoses Dystonia [address] [phone] Referral ID Status Reason Start Date Expiration Date Visits Requ ested Visits Authorized [id number] Closed 06/23/2020 06/23/2021 1 1 Encounter Details Date Type Department Care Team Description 06/26/2020 Telemedicine Department of Brisa Siddiqi (Latoya sanchez Dx); Otorhinolaryngology in [place], [place] CCC-CHUCKING MACHINE SET UP OPERATOR [address] [place] [address] [place] [phone] [place], [place] [phone] Social History Tobacco Use Types Packs/Day Years [...] or relatives? How often do you attend episcopal or 1 to 4 times per year 06/06 yarsani services? Do you belong to any clubs or No 06/26/2020 organizations such as episcopal groups, unions, fraternal or athletic groups, or [...] Assigned at Date Recorded Not on file documented as of this encounter Progress Notes Alyssa Siddiqi CCC-CHUCKING MACHINE SET UP OPERATOR - 06/26/2020 9:30 AM CST Referring provider Plan of care: Patient will be seen for 3-5 sessions per week for six weeks with goals of improving phonatory quality for functional communication in activities of daily living. Consult/treatnent conducted via real-time audio/video technology by Alyssa Siddiqi M.S.,DAVID-CHUCKING MACHINE SET UP OPERATOR in [facility] to patient in home for follow up . This Video Visit was performed during the COVID- emergency, when many states had issued ongrfen-by-ossrr/safer at home orders. In-person treatment was unavailable. To maintain medically necessary rehabilitation progress/goals, telemedicine was used as a necessary method of treatment. Telemedicine provided equivalent interaction. Patient denied limitations in telemedicine interaction Chief complaint/purpose of visit: Voice therapy Impression/Report/Plan Ms. Aguillon returns today for ongoing skilled intervention. Goals of therapy are as follows: 1. Patient will demonstrate mastery of various voice therapy techniques as judged by the clinician. 2. Patient will improve phonatory quality to 90 percent of normal at the phrase level on 75% of trials as judged by the patient. 3. Patient will improve phonatory quality to 90 percent of normal at the sentence level on 75% of trials as judged by the patient. 4. Patient will improve phonatory quality to 90 percent of normal in conversation as judged by the patient. She reports good adherence to home practice program over the weekend. She perceptually sounds very good today. We discussed vocal demands at work. 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 I encouraged her to continue with frequent practice of voice therapy techniques. She will contact me tomorrow after her full work day and we will adjust as necessary. It was my pleasure to participate in her care. PATIENT EDUCATION Ready to learn, no apparent learning barriers were identified; learning preferences include listening. Explained diagnosis and treatment plan; patient expressed understanding of the content. RONMENTAL SAFETY SPECIALIST documented in this encounter Plan of Treatment Scheduled Referrals Name Type Priority Associated Diagnoses Order S chedule Video anyplace Outpatient Referral Routine Dysphonia Expect ed: visit 07/10/2020 (Approximate), Expires: 06/26/2023 documented as of this encounter Visit Diagnoses Diagnosis Dysphonia - Primary Dystonia documented in this encounter
--- OUTSIDE RECORDS SUMMARY | 2022-02-09 00:57 | XMS_ITS | Encounter Summary ---
:1975 Author Organization [facility] Address [address] [place] [address] Care Team Providers Name Role Phone Unavailable Primary Care Provider Unavailable Encounter Details Date Type Department Care Team Description 06/23/2020 Ancillary Procedure Department of Otorhinolaryngology Social History Tobacco Use Types Packs/Day Years [...] or relatives? How often do you attend tenriism or 1 to 4 times per year 06/06 buddhist services? Do you belong to any clubs or No 06/26/2020 organizations such as tenriism groups, unions, fraternal or athletic groups, or [...] minutes do you engage in exercise at [facility] 20 min 06/26/2020 level? Stress Answer Date [...] or getting things needed for daily living? Sex Assigned at Date Recorded Not on file documented as of this encounter Plan of Treatment Not on filedocumented as of this encounter Procedures Procedure Name Priority Date/Time Associated Comments Diagnosis OTORHINOLARYNGOLOGY IMAGE Routine 06/23/2020 9:15 Results for this EXAM AM EVENT PLANNING INTERN procedure are i n the results section. documented in this encounter Results Direct Laryngoscopy-Otorhinolaryngology Image Exam (06/23/2020 9:15 AM EVENT PLANNING INTERN) Specimen (Source) Anatomical Collection Method Collection Time Re ceived Time Location / / Volume Laterality 06/23/2020 9:11 AM EVENT PLANNING INTERN Narrative [facility] - 06/23/2020 9:44 AM EVENT PLANNING INTERN This order has been created and auto-finalized to support the import of images acquired without order. The clini consuelo documentation to support these images can be found on the encounter corby t produced images. Provider Not In System IMG NON RAD IMAGING PROCEDUR ES Performing Organization Address City/State/ZIP Code Phon e Number [facility] NA documented in this encounter Visit Diagnoses Not on filedocumented in this encounter
--- OUTSIDE RECORDS SUMMARY | 2022-02-09 00:57 | XMS_ITS | Encounter Summary ---
:1975 Author Organization [facility] Address [address] [place] [address] Care Team Providers Name Role Phone Unavailable Primary Care Provider Unavailable Reason for Referral Outpatient (Routine) - Closed Specialty Diagnoses / Procedures Referred By Contact Refer red To Contact Video Medicine Diagnoses Dystonia Rst Ent [facility] [address] [place] [phone] Referral ID Status Reason Start Date Expiration Date Visits Requ ested Visits Authorized [id number] Closed 06/23/2020 06/23/2021 1 1 Scheduling Instructions W/rlp UNTING ADMINISTRATIVE ASSISTANT Reason for Visit Speech Pathology (Routine) - Closed Specialty Diagnoses / Procedures Referred By Contact Refer red To Contact Diagnoses Dystonia Julia Arredondo MPAS, [facility] Procedures INSURANCE UNDERWRITER SALES Voice evaluation P.A.-C. [address] [place] [phone] Referral ID Status Reason Start Date Expiration Date Visits Requ ested Visits Authorized [id number] Closed 06/23/2020 06/23/2021 1 1 Encounter Details Date Type Department Care Team Description 06/23/2020 Comprehensive Visit Department of Joselyn Arredondo MPAS, P.A.-CXiao [address] [place] [phone] Dystonia Otorhinolaryngology in [facility], Alyssa Maldonado CCC-INSURANCE UNDERWRITER SALES [address] [place] [phone] [place], [place] [address] [place] [phone] Social History Tobacco Use Types Packs/Day Years [...] or relatives? How often do you attend synagogue or 1 to 4 times per year 06/06 sikh services? Do you belong to any clubs or No 06/26/2020 organizations such as synagogue groups, unions, fraternal or athletic groups, or [...] on file documented as of this encounter Consult Notes Alyssa Siddiqi, DAVID-INSURANCE UNDERWRITER SALES - 06/23/2020 2:00 PM CST CHIEF COMPLAINT/ PURPOSE OF VISIT No chief complaint on file. HISTORY OF PRESENT ILLNESS Alyssa Aguillon is a pleasant 44 y.o. year old woman seen earlier today by my colleague, Michelle Sanchez. Please refer to her excellent note for full details. Breifly, she had sudden onset ofaphonia following a root canal when she swallowed a substance. She woke the next day and had loss the voice completely. This has persisted. She describes her voice difficulty as ???I feel like I can not make any sounds since the accident. I feel trapped.?? PHYSICAL EXAMINATION I. Phonation: Phonatory quality during connected speech is aphonic. II. Patient Self-Assessment: Patient rates the voice today as5 percent of normal. Patient rates concern about voice as 7/7, andd effort when speaking as 7/7, both on a scale where 7 equals most extremeconcern or extreme effort. Patient has difficulty with her voice immediately upon speaking. Total score on the Voice Handicap Index-10 (VHI-10) is 36/40. III. 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 IV. Voice care: Patient consumes 3 glasses of water per day and 0 caffeinated beverages per day. Social History Tobacco Use ??? Smoking status: Not on file Substance Use Topics ??? Alcohol use: Not on file ??? Drug use: Not on file V. Diagnostic therapy: Through a variety of techniques including circum laryngeal manipulation in semi occluded vocal tract activities with straw phonation water resistance we were able to reestablish normal phonatory quality. I kept her in the clinic and had her practice these techniques every 5 minutes over approximately a 1 hour time span. At the end of this time her voice was even more clear and she was able to establish carry over. 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 She is stimulable for improved sound in by the end of our time today a she had normal phonatory quality. I emphasized the importance of not with spurring over the weekend. She will continue with frequent practice over the and I will see her Friday for a video visit. It was my pleasure to participate in her care. PATIENT EDUCATION Ready to learn, no apparent learning barriers identified; learning preferences include listening. Diagnosis and treatment plan explained; opportunity to ask questions given; patient expressed understanding of content. DIAGNOSIS #1 Dysphonia UNTING ADMINISTRATIVE ASSISTANT documented in this encounter Plan of Treatment Scheduled Referrals Name Type Priority Associated Diagnoses Order S chedule Video anyplace Outpatient Referral Routine Dystonia Expect ed: visit 06/23/2020 (Approximate), Expires: 06/23/2023 documented as of this encounter Visit Diagnoses Diagnosis Dystonia documented in this encounter
--- OUTSIDE RECORDS SUMMARY | 2022-02-09 00:58 | XMS_ITS | Encounter Summary ---
:1975 Author Organization [facility] Address [address] [facility] [place] [address] Care Team Providers Name Role Phone [facility] Primary Care Provider Asha Urbina PA-C Unavailable [phone] Encounter Details Date Type Department Care Team Description 09/15/2020 Travel Social History Tobacco Use Types Packs/Day Years Used Date Never Smoker Smokeless Tobacco: Never Used Alcohol Use Standard Drinks/Week Comments Yes 0 (1 standard drink = 0.6 oz pure alcoho l) rare Alcohol Habits Answer Date Recorded How often do you have a drink containing alcohol? Not asked How many drinks containing alcohol do you have on a typical Not asked day when you are drinking? How often do you have six or more drinks on one occasion? No t asked Comment: rare 09/24/2010 Sex Assigned at Date Recorded Not on file COVID-19 Exposure Response Date Recorded In the last month, have you been in contact with No / Unsure 09/15/2020 1:05 PM CDT someone who was confirmed or suspected to have Coronavirus / COVID-19? documented as of this encounter Plan of Treatment Not on filedocumented as of this encounter Visit Diagnoses Not on filedocumented in this encounter Additional Health Concerns Assessment Noted Time PHQ-9 Depression Total Score: 12 09/17/2018 1:32 PM CD T documented as of this encounter Care Teams Parts Control Clerk Relationship Specialty Start Date End Date Clinic - [facility] PCP - General 09/16/18 [id number] [address] Asha Urbina PA-C Assigned PCP 08/13/20 09/27/20 [id number] [place] [address] documented as of this encounter
--- OUTSIDE RECORDS SUMMARY | 2022-02-09 00:58 | XMS_ITS | Encounter Summary ---
:1975 Author Organization [facility] Address [address] [place] [address] Care Team Providers Name Role Phone Clinic - [facility] Primary Care Provider Lily Rincon PA-C Unavailable Reason for Visit Reason Comments Abdominal Pain Encounter Details Date Type Department Care Team Description 08/11/[address] [facility] Matty Jorgensen PA-C Hernia of abdominal [facility] wall [address] [place], [place] [address] [place] [place] [address] [place], [place] [id number] (Wo rk) Social History Tobacco Use Types Packs/Day Years [...] been in contact with No / Unsure 08/11/2020 5:59 PM CDT someone who was confirmed or suspected to have Coronavirus / COVID-19? documented as of this encounter Last Filed Vital Signs Vital Sign Reading Time Taken Comments Blood Pressure 127/71 08/11/2020 10:06 PM CDT Pulse 81 08/11/2020 10:06 PM CDT Temperature 36.7 ??C (98 ??F) 08/11/2020 6:04 PM CDT Respiratory Rate 16 08/11/2020 10:06 PM CDT Oxygen Saturation 99% 08/11/2020 10:06 PM CDT Inhaled Oxygen Concentration - - Weight - - Height - - Body Mass Index - - documented in this encounter Discharge Instructions AttachmentsThe following attachments cannot be sent through Care Everywhere. Hernia (Adult) (Wallisian)documented in this encounter Medications at Time of Discharge Medication Sig Dispensed Refills Start Date End Date ferrous sulfate (SLO-FE) Take 1 tablet (142 30 tablet 1 12/202012/28/2020 142 (45 Fe) MG CR mg) by mouth daily tabletIndications: Iron deficiency anemia, unspecified iron deficiency anemia type ondansetron (ZOFRAN ODT) Take 1 tablet (4 mg) 10 tablet 0 0 08/11/2020 09/15/2020 4 MG ODT tab by mouth every 8 hours as needed for nausea oxyCODONE (ROXICODONE) 5 Take 1 tablet (5 mg) 12 tablet 0 0 08/11/2020 09/15/2020 MG tablet by mouth every 6 hours as needed for pain documented as of this encounter ED Notes Aly Figueroa RN - 08/11/2020 6:00 PM CDT A&O x4, ABCs intact. Pt presents with abdominal pain and nausea. Pt reports that she was seen ather OB and she has a hernia that is not able to be pushed back in. Pt reports that her OB told her to come to ED for pain control. Matty Jorgensen PA-C - 08/11/2020 5:58 PM CDT History Chief Complaint: Abdominal Pain HPI Alyssa Aguillon is a 44 year old female with history of ovarian cyst, anemia and menorrhagia who presents with abdominal pain and nausea. The patient reports that last week she suddenly began having severe lower abdominal/pelvic pain. She then stood up and had a syncopal episode. The patient went [facility] emergency department in [place], [place] and had a CT done. She was told that her CT revealed a ruptured ovarian cyst. She was given oxycodone and was discharged with instructions to follow up. The patient reports that 4 days ago she noticed she had a small bump on her abdomen and abdominal pain. This pain is mostly in her central abdomen, but will radiate to her sides at times. The patient was then seen by her family PA on 08/09/2020 where it was noted that she had a small umbilical hernia and she was started on ferrous sulfate for anemia that was revealed on laboratory work. She also notes having a decreased appetite due to nausea and dizziness. She was seen by her OB physician earlier today, who attempted to reduce the hernia, but she was referred to the emergency department for pain control. The patient notes that she had some chills on her way to the emergency department and that she had a small amount of blood in her stool a few days ago, but none since. She otherwise denies any fevers,vomiting, diarrhea, vaginal bleeding or urinary symptoms. Review of Systems Constitutional: Positive for appetite change. Negative for fever. Gastrointestinal: Positive for abdominal pain, blood in stool and nausea. Negative for diarrhea and vomiting. Genitourinary: Negative. Negative for vaginal bleeding. Neurological: Positive for dizziness and syncope. All other systems reviewed and are negative. Allergies: Compazine [Prochlorperazine] Tamiflu [Oseltamivir] Medications: Ferrous sulfate Past Medical History: Abnormal Pap smear Anemia Menorrhagia Streptococcal sore throat Dysphonia Panic attack Ovarian cyst hemorroids Past Surgical History: Appendectomy LEEP Family History: The patient denies past family history. Social History: The patient presents to the emergency department alone. She states she had a daughter who is currently hospitalized at [facility]. Physical Exam Patient Vitals for the past 24 hrs: BP Temp Temp src Pulse Resp SpO2 08/11/201999 (!) 157/94 -- -- 86 -- 97 % 08/11/20 1900 (!) 145/96 -- -- -- -- 100 % 08/11/201803 -- 98 ??F (36.7 ??C) Oral -- -- -- 08/11/20 180 (!) 152/97 -- -- 79 18 99 % Physical Exam Constitutional: Pleasant. Cooperative. Eyes: Pupils equally round and reactive HENT: Head is normal in appearance. Oropharynx is normal with moist mucus membranes. Cardiovascular: Regular rate and rhythm and without murmurs. Respiratory: Normal respiratory effort, lungs are clear bilaterally. GI: TTP near umbilicus in region of mass just superior to umbilicus. Otherwise non-tender, soft, non-distended. No guarding, rebound, or rigidity. Musculoskeletal: No asymmetry of the lower extremities, no tenderness to palpation. Skin: Normal, without rash. Neurologic: Cranial nerves grossly intact, normal cognition, no focal deficits. Alert and oriented x3. Psychiatric: Normal affect. Nursing notes and vital signs reviewed. Emergency Department Course Imaging: CT Abdomen Pelvis W Contrast 1. Small fat-containing periumbilical hernia. Just superior to the hernia there is a 1.3 cm soft tissue nodule with mild surrounding soft tissue infiltration. This does not appear to connect with the peritoneal cavity and it is unclear whether this is a small complex cyst. 2. Urinary bladder is distended. 3. Fatty liver. 4. Previous appendectomy. Reading per radiology. Laboratory: CBC: WBC 7.6, HGB 11.0 (L), PLT 371 CMP: ALT 62 (H), AST 53 (H) o/w WNL (Creatinine 0.88) Lactic acid (result time 1922) 0.6 (L) Lipase: 115 HCG Qualitative Urine: Negative UA with microscopic: Squamous Epithelial 2 (H) o/w WNL Emergency Department Course: Reviewed: I reviewed nursing notes, vitals, past medical history and care everywhere Assessments: 1819 I obtained history and examined the patient as noted above. 1944 I rechecked the patient and explained findings. 1954 I rechecked and updated the patient. I attempted to reduce the hernia, but the patient did not tolerate the reduction. I will order imaging. 2155 NS, 1 L, IV bolus Interventions: 1846 Dilaudid 0.5 mg IV 1846 Zofran 4 mg IV 1847 NS, 1 L, IV bolus 1948 Dilaudid 0.5 mg IV 2201 Dilaudid 0.5 mg IV Disposition: The patient was discharged to home. Impression & Plan Medical Decision Making: Alyssa Aguillon is a 44 year old female who presents to the ED for evaluation of abdominal pain. See HPI as above for additional details. Vitals and physical exam as above. Differential is broad and included pancreatitis, GERD, gallbladder pathology, PUD, SBO, perforated viscus, hernia, diverticulitis, pathology, UTI, among others. On my initial exam, palpable mass noted in the area of pain concerning for hernia. I attempted twice to reduce hernia without success. In this setting, CT obtained as above, notable for small fat-containing periumbilical hernia. Suspect this is etiology of patient'binh. Will treat with pain and nausea medications as above. [place] patient was safe for discharge to home. Referral provided for general surgery should pain and mass persist. Discussed reasons to return.All questions answered. Patient discharged to home in stable condition. Diagnosis: ICD-10-CM 1. Hernia of abdominal wall K43.9 fat containing Discharge Medications: New Prescriptions ONDANSETRON (ZOFRAN ODT) 4 MG ODT TAB Take 1 tablet (4 mg) by mouth every 8 hours as needed for nausea OXYCODONE (ROXICODONE) 5 MG TABLET Take 1 tablet (5 mg) by mouth every 6 hours as needed for pain Scribe Disclosure: Julio César Mccrary, am serving as a scribe at 6:06 PM on 08/11/2020 to document services personally performed by Matty Jorgensen PA-C based on my observations and the provider's statements to me. This record was created at least in part using electronic voice recognition software, so please excuse any typographical errors. Matty Jorgensen PA-C 08/12/20 0152 documented in this encounter Plan of Treatment Not on filedocumented as of this encounter Procedures Procedure Name Priority Date/Time Associated Comments Diagnosis CT ABDOMEN PELVIS W STAT 08/11/2020 9:31 PM Re sults for this CONTRAST CDT procedure are i n the results section. CBC WITH PLATELETS & STAT 08/11/2020 6:59 PM R esults for this DIFFERENTIAL CDT procedure are i n the results section. LIPASE STAT 08/11/2020 6:59 PM Results f or this CDT procedure are i n the results section. LACTIC ACID WHOLE STAT 08/11/2020 6:59 PM Resu lts for this BLOOD CDT procedure are i n the results section. HCG QUALITATIVE Routine 08/11/2020 6:59 PM Result s for this CDT procedure are i n the results section. COMPREHENSIVE STAT 08/11/2020 6:59 PM Results for this METABOLIC PANEL CDT procedure ar e in the results section. ROUTINE UA WITH STAT 08/11/2020 6:43 PM Result s for this MICROSCOPIC REFLEX TO CDT proced ure are in CULTURE the results section. documented in this encounter Results CT Abdomen Pelvis w Contrast (08/11/2020 9:31 PM CDT) Anatomical Region Laterality Modality Abdomen/Pelvis, SUBRAD CT BODY, UMP CT ABDOMEN PELVIS, Computed Tomography RAD CT Specimen (Source) Anatomical Collection Method Collection Time Re ceived Time Location / / Volume Laterality 08/11/2020 9:17 PM CDT Impressions 08/11/2020 9:51 PM CDT IMPRESSION: 1. ??Small fat-containing periumbilical hernia. Just superior to the hernia there is a 1.3 cm soft tissue nodule with mild surrounding soft tissue infiltration. This does not appear to connect with the peritoneal cavity and it is unclear whet her this is a small complex cyst. 2. ??Urinary bladder is distended. 3. ??Fatty liver. 4. ??Previous appendectomy. ?? Narrative 08/11/2020 9:51 PM CDT EXAM: CT ABDOMEN PELVIS W CONTRAST LOCATION: [facility] DATE/TIME: 08/11/2020 9:17 PM INDICATION: Abdominal pain, hernia suspe cted. COMPARISON: None. TECHNIQUE: CT scan of the abdomen and pe lvis was performed following injection of IV contrast. Multiplanar reformats were obtained. Dose reduction techniques were used. CONTRAST: ??86 mL Isovue-370. FINDINGS: LOWER CHEST: Atelectasis. HEPATOBILIARY: Fatty liver. PANCREAS: Normal. SPLEEN: Normal. ADRENAL GLANDS: Normal. KIDNEYS/BLADDER: Normal. BOWEL: Appendectomy. There is a small fa t-containing periumbilical hernia. Just cephalad to the hernia within the subcutaneous tissues there is a 1.3 cm soft tissue nodule with mild surrounding soft tis mercedes infiltration. This could be further evaluated with ultrasound. LYMPH NODES: Normal. VASCULATURE: Unremarkable. PELVIC ORGANS: Urinary bladder is disten ded. MUSCULOSKELETAL: Normal. Procedure Note Abraham Monroe MD - 08/11/2020Formattin g of this note might be different from the original. EXAM: CT ABDOMEN PELVIS W CONTRAST LOCATION: [facility] DATE/TIME: 08/11/2020 9:17 PM INDICATION: Abdominal pain, hernia suspe cted. COMPARISON: None. TECHNIQUE: CT scan of the abdomen and pe lvis was performed following injection of IV contrast. Multiplanar reformats were obtained. Dose reduction techniques were used. CONTRAST: 86 mL Isovue-370. FINDINGS: LOWER CHEST: Atelectasis. HEPATOBILIARY: Fatty liver. PANCREAS: Normal. SPLEEN: Normal. ADRENAL GLANDS: Normal. KIDNEYS/BLADDER: Normal. BOWEL: Appendectomy. There is a small fa t-containing periumbilical hernia. Just cephalad to the hernia within the subcutaneous tissues there is a 1.3 cm soft tissue nodule with mild surrounding soft tissue infiltration. This could be further evaluated with ultrasound. LYMPH NODES: Normal. VASCULATURE: Unremarkable. PELVIC ORGANS: Urinary bladder is disten ded. MUSCULOSKELETAL: Normal. IMPRESSION: 1. Small fat-containing periumbilical he rnia. Just superior to the hernia there is a 1.3 cm soft tissue nodule with mild surrounding soft tissue infiltration. This does not appear to connect with the peritoneal cavity and it is unclear whether this is a small complex cyst. 2. Urinary bladder is distended. 3. Fatty liver. 4. Previous appendectomy. Matty Jorgensen PA-C IMG CT ORDERABLES HCG qualitative (08/11/2020 6:59 PM CDT) [facility] Method Time Signature HCG Qualitative Negative NEG^Negati 08/11/2020 [place] Serum ve 8:51 PM CDT [facility] Comment: This test is for screening purposes. ??R esults should be interpreted along with the clinical picture. ??Confirmation te sting is available if warranted by ordering [id number], HCG Quantitative Pregna ncy. Specimen Anatomical Collection Method Collection Time Receive d Time (Source) Location / / Volume Laterality 08/11/2020 6:59 PM 7:14 CDT PM CDT Matty Jorgensen PA-C LAB - BLOOD ORDERABLES Performing Organization Address City/State/ZIP Code Phon e Number [facility] [address] [place], [place] [address] [facility] [address] [place], [place] [address], [facility] [phone] (ABNORMAL) Lactic acid whole blood (08/11/2020 6:59 PM CDT) athologist Signature Lactic Acid 0.6 (L) 0.7 - 2.0 08/11/2020 [place] mmol/L 7:23 PM CDT [facility] Specimen Anatomical Collection Method Collection Time Receive d Time (Source) Location / / Volume Laterality Blood 08/11/2020 6:59 PM 7:14 CDT PM CDT Matty UREÑA-C LAB - BLOOD ORDERABLES Performing Organization Address City/[facility]/ZIP [facility] [address] [place], [place] [address] [place] [address] [address] [place], [place] [address], [facility] [phone] Lipase (08/11/2020 6:59 PM CDT) athologist [facility] Lipase 115 73 - 393 08/11/2020 [facility] U/L 7:38 PM [facility] Specimen Anatomical Collection Method Collection Time Receive d Time (Source) Location / / Volume Laterality Blood 08/11/2020 6:59 PM 7:14 CDT PM CDT Matty UREÑA-C LAB - BLOOD ORDERABLES Performing Organization Address City/[facility]/ZIP [facility] [place] Phon Carlos [facility] [address] [place], [place] [address] [facility] [address] [place], [place] [address], [facility] [phone] (ABNORMAL) Comprehensive metabolic panel (08/11/2020 6:59 PM CDT) athologist Signature Sodium 136 133 - 144 08/11/2020 [place] mmol/L 7:30 PM T [facility] Potassium 3.7 3.4 - 5.3 08/11/2020 [place] mmol/L 7:30 PM [facility] Chloride 104 94 - 109 08/11/2020 [facility] mmol/L 7:30 PM [facility] Carbon Dioxide 28 20 - 32 08/11/2020 [facility] mmol/L 7:36 PM [facility] Anion Gap 4 3 - 14 08/11/2020 [facility] mmol/L 7:36 PM [facility] Glucose 84 70 - 99 08/11/2020 [facility] mg/dL 7:36 PM [facility] Urea Nitrogen 15 7 - 30 08/11/2020 [facility] mg/dL 7:36 PM [facility] Creatinine 0.88 0.52 - 08/11/2020 [facility] 1.04 mg/dL 7:36 PM [facility] GFR Estimate 78 >60 08/11/2020 [place] mL/min/{1. 7:36 PM [facility] 73_m2} HOSPITAL Comment: Non GFR Calc Starting 04/21/2018, serum creatinine ba sed estimated GFR (eGFR) will be calculated using the Chronic Kidney Dise [facility] Epidemiology Collaboration (CKD-EPI) equation. GFR Estimate If >90 >60 mL/min/{1.73_m2} 08/11/2020 7: 36 PM [facility] Comment: GFR Calc Starting 04/21/2018, serum creatinine ba sed estimated GFR (eGFR) will be calculated using the Chronic Kidney Dise [facility] Epidemiology Collaboration (CKD-EPI) equation. Calcium 9.0 8.5 - 10.1 08/11/2020 7:36 PM [facility] IDGES mg/dL [facility] Bilirubin Total 1.0 0.2 - 1.3 mg/dL 08/11/2020 7:38 PM [facility] Albumin 3.9 3.4 - 5.0 g/dL 08/11/2020 7:38 PM [facility] Protein Total 8.6 6.8 - 8.8 g/dL 08/11/2020 7:38 PM [facility] Alkaline Phosphatase 77 40 - 150 U/L 08/11/2020 7:38 PM [facility] ALT 62 (H) 0 - 50 U/L 08/11/2020 7:38 PM [place] R IDGES [facility] AST 53 (H) 0 - 45 U/L 08/11/2020 7:38 PM [facility] [facility] Specimen Anatomical Collection Method Collection Time Receive d Time (Source) Location / / Volume Laterality Blood 08/11/2020 6:59 PM 7:14 CDT PM CDT Matty Jorgensen PA-C LAB - BLOOD ORDERABLES Performing Organization Address City/State/ZIP Code Phon e Number [place] [address] [place], [place] [address] [facility] [address] [phone] (ABNORMAL) CBC with platelets differential (08/11/2020 6:59 PM CDT) [facility] Method Time Signature WBC 7.6 4.0 - 08/11/2020 [facility] 11.0 7:18 PM [facility] 10e9/L [facility] RBC Count 4.53 3.8 - 5.2 08/11/2020 [facility] 10e12/L 7:18 PM [facility] Hemoglobin 11.0 (L) 11.7 - 08/11/2020 [facility] 15.7 g/dL 7:18 PM [facility] Hematocrit 36.6 35.0 - 08/11/2020 [facility] 47.0 % 7:18 PM [facility] MCV 81 78 - 100 08/11/2020 [facility] fl 7:18 PM [facility] MCH 24.3 (L) 26.5 - 08/11/2020 [facility] 33.0 pg 7:18 PM [facility] MCHC 30.1 (L) 31.5 - 08/11/2020 [facility] 36.5 g/dL 7:18 PM [facility] RDW 15.4 (H) 10.0 - 08/11/2020 [facility] 15.0 % 7:18 PM [facility] Platelet Count 371 150 - 450 08/11/2020 [facility] 10e9/L 7:18 PM [facility] Diff Method Automated 08/11/2020 [facility] Method 7:18 PM [facility] % Neutrophils 62.5 % 08/11/2020 [facility] 7:18 PM [facility] % Lymphocytes 27.1 % 08/11/2020 [facility] 7:18 PM [facility] % Monocytes 8.2 % 08/11/2020 [facility] 7:18 PM [facility] % Eosinophils 0.9 % 08/11/2020 [facility] 7:18 PM [facility] % Basophils 0.9 % 08/11/2020 [facility] 7:18 PM [facility] % Immature 0.4 % 08/11/2020 [place] Granulocytes 7:18 PM [facility] Nucleated RBCs 0 0 /100 08/11/2020 [facility] 7:18 PM [facility] Absolute 4.7 1.6 - 8.3 08/11/2020 [place] Neutrophil 10e9/L 7:18 PM [facility] Absolute 2.1 0.8 - 5.3 08/11/2020 [place] Lymphocytes 10e9/L 7:18 PM [facility] Absolute 0.6 0.0 - 1.3 08/11/2020 [place] Monocytes 10e9/L 7:18 PM [facility] Absolute 0.1 0.0 - 0.7 08/11/2020 [facility] Eosinophils 10e9/L 7:18 PM [facility] Absolute 0.1 0.0 - 0.2 08/11/2020 [place] Basophils 10e9/L 7:18 PM [facility] Abs Immature 0.0 0 - 0.4 08/11/2020 [place] Granulocytes 10e9/L 7:18 PM [facility] Absolute 0.0 08/11/2020 [place] Nucleated RBC 7:18 PM [facility] Specimen Anatomical Collection Method Collection Time Receive d Time (Source) Location / / Volume Laterality Blood 08/11/2020 6:59 PM 7:14 CDT PM T Matty Jorgensen PA-C LAB - BLOOD ORDERABLES Performing Organization Address City/State/ZIP Code Phon e Number [facility] [address] [place] [address] [facility] [address] [phone] (ABNORMAL) UA with Microscopic reflex to Culture (08/11/2020 6:43 PM [facility] Method Time Signature Color Urine Straw 08/11/2020 [facility] 7:03 PM [facility] Appearance Urine Clear 08/11/2020 [facility] 7:03 PM [facility] Glucose Urine Negative NEG^Negat 08/11/2020 [facility] debi mg/dL 7:03 PM [facility] Bilirubin Urine Negative NEG^Negat 08/11/2020 [facility] debi 7:03 PM [facility] Ketones Urine Negative NEG^Negat 08/11/2020 [facility] debi mg/dL 7:03 PM [facility] Specific Erin 1.003 1.003 - 08/11/2020 [facility] Urine 1.035 7:03 PM [facility] Blood Urine Negative NEG^Negat 08/11/2020 [facility] debi 7:03 PM [facility] pH Urine 5.5 5.0 - 7.0 08/11/2020 [facility] pH 7:03 PM [facility] Protein Albumin Negative NEG^Negat 08/11/2020 [facility] Urine debi mg/dL 7:03 PM [facility] Urobilinogen Normal 0.0 - 2.0 08/11/2020 [facility] mg/dL mg/dL 7:03 PM [facility] Nitrite Urine Negative NEG^Negat 08/11/2020 [facility] debi 7:03 PM [facility] Leukocyte Negative NEG^Negat 08/11/2020 [facility] Esterase Urine debi 7:03 PM [facility] Source Midstream 08/11/2020 [facility] Urine 6:43 PM [facility] WBC Urine 2 0 - 5 08/11/2020 [facility] /HPF 7:03 PM [facility] RBC Urine 1 0 - 2 08/11/2020 [facility] /HPF 7:03 PM [facility] Squamous 2 (H) 0 - 1 08/11/2020 [facility] Epithelial /HPF /HPF 7:03 PM [facility] Specimen (Source) Anatomical Collection Method Collection Time Re ceived Time Location / / Volume Laterality Examination of 08/11/2020 6:43 08/11/2020 6:46 midstream urine PM CDT PM CDT specimen (procedure) Matty Jorgensen PA-C LAB - URINE ORDERABLES Performing Organization Address City/State/ZIP Code Phon e Number [facility] [address] [place], [place] [address] [facility] [address] [place], [place] [address] [place] [address] documented in this encounter Visit Diagnoses Diagnosis Hernia of abdominal wall Ventral hernia, unspecified, without men tion of obstruction or gangrene documented in this encounter Administered Medications Inactive Administered Medications - up to 3 most recent administrations Medication Order MAR Action Action Date Dose Rate Site 0.9% sodium chloride BOLUS New Bag 08/11/2020 6:48 PM CDT 1,000 mLs 1000 mL/hr Intravenous, 1,000 mL, ONCE, at 1,000 mL/hr, Administer over 1 Hours, On Fri08/11/20 at 1825, For 1 dose HYDROmorphone (PF) (DILAUDID) injection 0.5 Given 01/2021 10:02 PM CDT 0.5 mg mg 0.5 mg, Intravenous, EVERY 15 MIN PRN, moderate to severe pain, Starting on Fri08/11/20 at 1821, For 3 doses, For ordered IV doses 0.1-4 mg give IV Push undiluted. Administer each 2mg over 2-5 minutes. Given 08/11/2020 7:49 PM CDT 0.5 mg Given 08/11/2020 6:47 PM CDT 0.5 mg iopamidol (ISOVUE-370) solution 500 mL Given 08/11/2020 9:21 PM CDT 86 mLs 500 mL, Intravenous, ONCE, On Fri08/11/20 at 2120, For 1 dose ondansetron (ZOFRAN) injection 4 mg Given 08/11/2020 6:47 PM CDT 4 mg 4 mg, Intravenous, EVERY 30 MIN PRN, nausea, vomiting, Administer over 2-5 Minutes, Starting on Fri08/11/20 at 1821, For 3 doses, May repeat in 30 minutes as needed, up to 3 doses. Irritant. For ordered IV doses 0.1-4 mg, give IV Push undiluted over 2-[address] scan flush Given 08/11/2020 9:22 PM CDT 62 mLs Intravenous, 100 mL, ONCE, On Fri08/11/20 at 2120, For 1 dose sodium chloride 0.9% infusion at 125 mL/hr, Intravenous, CONTINUOUS, A dminister after the bolus., Starting on Fri08/11/20 at 1925, Until 08/12/20 at 0022 documented in this encounter Active and Recently Administered Medications Times are shown in CDT. Scheduled Medication Order 08/09/2020 08/10/2020 08/11/2020 0.9% sodium chloride BOLUS (COMPLETED) 1847 (New Bag - Provider: Lise Kennedy RN)[id number] (Stopped - Provider: Eliza Alba, DELLA) Intravenous, 1,000 mL, ONCE, at 1,000 mL /hr, Administer over 1 Hours, Fri08/11/20 at 1825, For 1 dose iopamidol (ISOVUE-370) solution 500 mL (COMPLETED) 2120 (Given - Provider: Rosalee Sandhu - Comment: Bulk) 500 mL, Intravenous, ONCE, Fri08/11/20 at 2120, For [address] scan flush (COMPLETED) 2121 (Given - Provider: Rosalee Sandhu) Intravenous, 100 mL, ONCE, Fri08/11/20 at 2120, For 1 dose Continuous Medication Order 08/09/2020 08/10/2020 08/11/2020 sodium chloride 0.9% infusion 19 25 (Canceled Entry - Provider: Orders Generic Provider - Comment: Automatically canceled at discontinue of medication order) at 125 mL/hr, Intravenous, CONTINUOUS, A dminister after the bolus., Starting Fri08/11/20 at 1925, Until 08/12/20 at 0022 PRN Medication Order 08/09/2020 08/10/2020 08/11/2020 HYDROmorphone (PF) (DILAUDID) injection 0.5 mg (COMPLETED) 1846 (Given - Provider: Lise Kennedy RN)1948 (Given - Provider: Janes Dowell RN)2201 (Given - Provider: Eliza Alba, DELLA) 0.5 mg, Intravenous, EVERY 15 MIN PRN, m oderate to severe pain, Starting 08/11/20 at 1821, For 3 doses, For ordered IV doses 0.1-4 mg give IV Push undiluted. Administer each 2mg over 2-5 minutes. ondansetron (ZOFRAN) injection 4 mg 1847 (Given - Provider: Lise Kennedy RN) 4 mg, Intravenous, EVERY 30 MIN PRN, sheryl sea, vomiting, Administer over 2-5 Minutes, Starting 08/11/20 at 1821, For 3 doses, May repeat in 30 minutes as needed, up to 3 doses. Irritant. For ordered IV doses 0.1-4 mg, give IV Push undiluted over 2-5 minutes. documented in this encounter Additional Health Concerns Assessment Noted Time PHQ-9 Depression Total Score: 12 09/17/2018 1:32 PM CD T documented as of this encounter Care Teams Legal Researcher Relationship Specialty Start Date End Date Clinic - [facility] PCP - General 09/16/18 [address] [address] [facility] [place] [address] Lily Rincon PA-C Assigned PCP 12/19/19 08/12/[address] [place] [address] JOSELITO BOSE [id number] documented as of this encounter
--- OUTSIDE RECORDS SUMMARY | 2022-02-09 00:58 | XMS_ITS | Encounter Summary ---
:1975 Author Organization [place] Address [address] [place] [address] Care Team Providers Name Role Phone [facility] [[email or web address]] Primary Care Provider Asha Urbina PA-C Unavailable [phone] Reason for Visit Reason Comments Hernia Encounter Details Date Type Department Care Team Description 09/15/2020 Office Visit [facility] Ingrid Gillespie, Aden tigue, unspecified type (Primary Dx); [facility] CONTENT COORDINATOR Depression, unspecified depression type; [address] [place] [address] Iron d eficiency anemia, unspecified iron deficiency anemia type; [facility] Umbilical hernia without obstruction and without gangrene [place], [place] [phone] Social History Tobacco Use Types Packs/Day Years [...] Sign Reading Time Taken Comments Blood Pressure 124/80 09/15/2020 1:14 PM CDT Pulse 86 09/15/2020 1:14 PM CDT Temperature 36.3 ??C (97.4 ??F) 09/15/2020 1:14 PM CDT Respiratory Rate 16 09/15/2020 1:14 PM CDT Oxygen Saturation 100% 09/15/2020 1:14 PM CDT Inhaled Oxygen Concentration - - Weight 78.9 kg (174 lb) 09/15/2020 1:14 PM CDT Height - - Body Mass Index 29.41 08/09/2020 9:07 AM CDT documented in this encounter Progress Notes Ingrid Gillespie CNP - 09/15/2020 1:10 PM CDT Assessment & Plan Problem List Items Addressed This Visit Hematologic Iron deficiency anemia, unspecified iron deficiency anemia type Other Visit Diagnoses Fatigue, unspecified type - Primary Relevant Medications buPROPion (WELLBUTRIN XL) 150 MG 24 hr tablet buPROPion (WELLBUTRIN XL) 300 MG 24 hr tablet Other Relevant Orders TSH with free T4 reflex (Completed) CBC with platelets (Completed) Follicle stimulating hormone (Completed) Vitamin D Deficiency (Completed) Ferritin (Completed) Depression, unspecified depression type Relevant Medications buPROPion (WELLBUTRIN XL) 150 MG 24 hr tablet buPROPion (WELLBUTRIN XL) 300 MG 24 hr tablet Umbilical hernia without obstruction and without gangrene Start iron and vitamin d supplement. Start Wellbutrin and follow up 4 weeks. Other labs normal. For hernia, surgical consultation when desired. Review of the result(s) of each unique test - labs Ordering of each unique test Prescription drug management I spent a total of 28 minutes on the day of the visit. Time spent doing chart review, history and exam, documentation and further activities per the note Regular exercise See Patient Instructions No follow-ups on file. Ingrid Gillespie CNP [facility] Pema is a 45 year old who presents for the following health issues HPI Follow up hernia- still having some pain not sure if it is from the hernia Legs hurt at night Dizziness at times going from sitting to standing. Fatigue- no energy past 7-gained weight and just not feeling well. Some mood change. A couple weeks, worse. Falls alseep very easily at night very tired by time done with work. Review of Systems Constitutional, HEENT, cardiovascular, pulmonary, GI, , musculoskeletal, neuro, skin, endocrine and psych systems are negative, except as otherwise noted. Objective BP 124/80 Pulse 86 Temp 97.4 ??F (36.3 ??C) (Tympanic) Resp 16 Wt 78.9 kg (174 lb) SpO2 100% BMI 29.41 kg/m?? Body mass index is 29.41 kg/m??. Physical Exam GENERAL: healthy, alert and no distress NECK: no adenopathy, no asymmetry, masses, or scars and thyroid normal to palpation RESP: lungs clear to auscultation - no rales, rhonchi or wheezes CV: regular rate and rhythm, normal S1 S2, no S3 or S4, no murmur, click or rub, no peripheral edemaand peripheral pulses strong ABDOMEN: soft, nontender, no hepatosplenomegaly, umbilical hernia present, slightly tender and bowelsounds normal MS: no gross musculoskeletal defects noted, no edema Results for orders placed or performed in visit on 09/15/20 TSH with free T4 reflex Status: None Result Value Ref Range TSH 1.28 0.40 - 4.00 mU/L CBC with platelets Status: Abnormal Result Value Ref Range WBC 7.1 4.0 - 11.0 10e9/L RBC Count 4.26 3.8 - 5.2 10e12/L Hemoglobin 10.7 (L) 11.7 - 15.7 g/dL Hematocrit 33.8 (L) 35.0 - 47.0 % MCV 79 78 - 100 fl MCH 25.1 (L) 26.5 - 33.0 pg MCHC 31.7 31.5 - 36.5 g/dL RDW 16.9 (H) 10.0 - 15.0 % Platelet Count 269 150 - 450 10e9/L Follicle stimulating hormone Status: None Result Value Ref Range FSH 7.2 IU/L Vitamin D Deficiency Status: None Result Value Ref Range Vitamin D Deficiency screening 23 20 - 75 ug/L Ferritin Status: Abnormal Result Value Ref Range Ferritin 6 (L) 8 - 252 ng/mL documented in this encounter Plan of Treatment Not on filedocumented as of this encounter Procedures Procedure Name Priority Date/Time Associated Diagnosis Comme nts VITAMIN D DEFICIENCY Routine 09/15/2020 1:47 PM Fatigue, unspe cified Results for this SCREENING CDT type procedure are i n the results section. TSH WITH FREE T4 Routine 09/15/2020 1:47 PM Fatigue, unspecifi ed Results for this REFLEX CDT type procedure are i n the results section. FOLLICLE STIMULATING Routine 09/15/2020 1:47 PM Fatigue, unspe cified Results for this HORMONE CDT type procedure are i n the results section. FERRITIN Routine 09/15/2020 1:47 PM Fatigue, unspecified R esults for this CDT type procedure are i n the results section. CBC WITH PLATELETS Routine 09/15/2020 1:47 PM Fatigue, unspeci fied Results for this CDT type procedure are i n the results section. documented in this encounter Results (ABNORMAL) Ferritin (09/15/2020 1:47 PM CDT) athologist Signature Ferritin 6 (L) 8 - 252 09/18/2020 [facility] ng/mL 1:[address] [facility] Specimen Anatomical Collection Method Collection Time Receive d Time (Source) Location / / Volume Laterality Blood 09/15/2020 1:47 PM 1:48 CDT PM CDT Ingrid Gillespie CNP LAB - BLOOD ORDERABLES Performing Organization Address City/State/ZIP Code Phon e Number [facility] [address] [place] [address] Vitamin D Deficiency (09/15/2020 1:47 PM CDT) athologist Signature Vitamin D 23 20 - 75 09/18/2020 [facility] ug/L 4:50 PM CDT [facility] Comment: Season, race, dietary intake, and treatm ent affect the concentration of 35-ebvbwpv-Rryvvhe D. Values may decreas e during winter months and increase during summer months. Values 20-29 ug/L may indicate Vitamin D insufficiency and values <20 ug/L may indicate Vitamin D deficiency. Vitamin D determination is routinely per formed by an immunoassay specific for 25 hydroxyvitamin D3. ??If an individual is on vitamin D2 (ergocalciferol) supplementation, please specify 25 [place] vi tamin D2 and D3 level determination by LCMSMS test VITD23. Specimen Anatomical Collection Method Collection Time Receive d Time (Source) Location / / Volume Laterality Blood 09/15/2020 1:47 PM 1 1:48 CDT PM CDT Ingrid Gillespie CNP LAB - BLOOD ORDERABLES Performing Organization Address [facility] Phon e Number [facility] [address] Follicle stimulating hormone (09/15/2020 1:47 PM CDT) P athologist Signature FSH 7.2 IU/L 09/18/2020 [facility] 3:17 PM CDT [facility] Comment: FSH Reference Range Female: Follicular ?2.5-10.2 ?Mid-cycle ? 3.4-33.4 ?Luteal ?1.5-9.1 ?Postmenopausal ??23.0-116.3 Specimen Anatomical Collection Method Collection Time Receive d Time (Source) Location / / Volume Laterality Blood 09/15/2020 1:47 PM 1 1:48 CDT PM CDT Ingrid Gillespie CNP LAB - BLOOD ORDERABLES Performing Organization Address [facility] Phon e Number [facility] [address] (ABNORMAL) CBC with platelets (09/15/2020 1:47 PM CDT) Analysis Performed At Patho logist Time Signature WBC 7.1 4.0 - 11.0 09/15/2020 [facility] 10e9/L 2:04 PM CDT [facility] RBC Count 4.26 3.8 - 5.2 09/15/2020 [facility] 10e12/L 2:04 PM CDT [facility] Hemoglobin 10.7 (L) 11.7 - 09/15/2020 [facility] 15.7 g/dL 2:04 PM CDT [facility] [place] Hematocrit 33.8 (L) 35.0 - 09/15/2020 [facility] 47.0 % 2:04 PM CDT [facility] [place] [facility] MCV 79 78 - 100 09/15/2020 [facility] fl 2:04 PM CDT [facility] [place] MCH 25.1 (L) 26.5 - 09/15/2020 [facility] 33.0 pg 2:04 PM CDT [facility] [place] MCHC 31.7 31.5 - 09/15/2020 [facility] 36.5 g/dL 2:04 PM CDT [facility] [place] RDW 16.9 (H) 10.0 - 09/15/2020 [facility] 15.0 % 2:04 PM CDT [facility] [place] Platelet Count 269 150 - 450 09/15/2020 [facility] 10e9/L 2:04 PM CDT [facility] [place] Specimen Anatomical Collection Method Collection Time Receive d Time (Source) Location / / Volume Laterality Blood 09/15/2020 1:47 PM 1 1:48 CDT PM CDT Ingrid Gillespie CNP LAB - BLOOD ORDERABLES Performing Organization Address City/State/ZIP Code Phon e Number [facility] [place] [address] TSH with free T4 reflex (09/15/2020 1:47 PM CDT) P athologist Signature TSH 1.28 0.40 - 4.00 09/18/2020 [facility] mU/L 3:12 PM CDT HOSPITAL Specimen Anatomical Collection Method Collection Time Receive d Time (Source) Location / / Volume Laterality Blood 09/15/2020 1:47 PM 1 1:48 CDT PM CDT Ingrid Gillespie CNP LAB - BLOOD ORDERABLES Performing Organization Address City/[facility]/ZIP Code Phon e Number [facility] [address] [place], [place] [address] [facility] [address] [place] [address] [facility] [phone] documented in this encounter Visit Diagnoses Diagnosis Fatigue, unspecified type - Primary Depression, unspecified depression type Iron deficiency anemia, unspecified iron deficiency anemia type Umbilical hernia without obstruction and without gangrene documented in this encounter Additional Health Concerns Assessment Noted Time PHQ-9 Depression Total Score: 12 09/17/2018 1:32 PM CD T documented as of this encounter Care Teams Glove Turner Relationship Specialty Start Date End Date Clinic - [facility] [[email or web address] PCP - General 09/16/18 [address] [place] [address] Asha Urbina PA-C Assigned PCP 08/13/20 09/27/20 [address] [place] [address] documented as of this encounter
--- OUTSIDE RECORDS SUMMARY | 2022-02-09 00:58 | XMS_ITS | Encounter Summary ---
:1975 Author Organization [place] Address [address] [facility] [place] [address] Care Team Providers Name Role Phone [facility] Primary Care Provider Lily Rincon PA-C Unavailable Encounter Details Date Type Department Care Team Description 08/09/2020 Travel Social History Tobacco Use Types Packs/Day [...] been in contact with No / Unsure 08/09/2020 8:52 AM CDT someone who was confirmed or suspected to have Coronavirus / COVID-19? documented as of this encounter Plan of Treatment Not on filedocumented as of this encounter Visit Diagnoses Not on filedocumented in this encounter Additional Health Concerns Assessment Noted Time PHQ-9 Depression Total Score: 12 09/17/2018 1:32 PM CD T documented as of this encounter Care Teams Revenue Audit Clerk Relationship Specialty Start Date End Date Clinic - [facility] PCP - General 09/16/18 [address] [place] [address] Lily Rincon PA-C Assigned PCP 12/19/19 08/12/[address] [place] [address] [place] [address] documented as of this encounter
--- OUTSIDE RECORDS SUMMARY | 2022-02-09 00:58 | XMS_ITS | Encounter Summary ---
:1975 Author Organization [place] Address [address] [facility] [place] [address] Care Team Providers Name Role Phone [facility] Primary Care Provider Ingrid Gillespie NURSING HOME SOCIAL WORKER Unavailable Encounter Details Date Type Department Care Team Description 12/28/2020 Travel Social History Tobacco Use Types Packs/Day [...] been in contact with No / Unsure 12/28/2020 4:29 PM CDT someone who was confirmed or suspected to have Coronavirus / COVID-19? documented as of this encounter Plan of Treatment Not on filedocumented as of this encounter Visit Diagnoses Not on filedocumented in this encounter Additional Health Concerns Assessment Noted Time PHQ-9 Depression Total Score: 12 09/17/2018 1:32 PM CD T documented as of this encounter Care Teams Welder Apprentice Relationship Specialty Start Date End Date Clinic - [facility] PCP - General 09/16/18 [address] [place] [address] Ingrid Gillespie, NURSING HOME SOCIAL WORKER Assigned PCP 09/28/20 12/30/20 [address] [place] [address] documented as of this encounter
--- OUTSIDE RECORDS SUMMARY | 2022-02-09 00:58 | XMS_ITS | Encounter Summary ---
:1975 Author Organization [place] Address [address] [place] [address] Care Team Providers Name Role Phone [facility] Primary Care Provider Asha Urbina PA-C Unavailable [phone] Encounter Details Date Type Department Care Team Description 08/24/2020 [facility] [address] [place] [address] Social History Tobacco Use Types Packs/Day Years [...] documented as of this encounter Care Teams Lithographed Plate Inspector Relationship Specialty Start Date End Date Clinic - [facility] PCP - General 09/16/18 [address] [place] [address] Asha Urbina PA-C Assigned PCP 08/13/20 09/27/20 [address] [place] [address] documented as of this encounter
--- OUTSIDE RECORDS SUMMARY | 2022-02-09 00:58 | XMS_ITS | Encounter Summary ---
:1975 Author Organization [place] Address [address] [facility] [place] [address] Care Team Providers Name Role Phone [facility] Primary Care Provider Ingrid Gillespie PRODUCE CLERK Unavailable Encounter Details Date Type Department Care Team Description 12/18/2020 Travel Social History Tobacco Use Types Packs/Day [...] been in contact with No / Unsure 12/18/2020 3:56 PM CDT someone who was confirmed or suspected to have Coronavirus / COVID-19? documented as of this encounter Plan of Treatment Not on filedocumented as of this encounter Visit Diagnoses Not on filedocumented in this encounter Additional Health Concerns Assessment Noted Time PHQ-9 Depression Total Score: 12 09/17/2018 1:32 PM CD T documented as of this encounter Care Teams Supervisor Wall Mirror Department Relationship Specialty Start Date End Date Clinic - [facility] PCP - General 09/16/18 [address] [place] [address] Ingrid Gillespie, PRODUCE CLERK Assigned PCP 09/28/20 12/30/20 [address] [place] [address] documented as of this encounter
--- OUTSIDE RECORDS SUMMARY | 2022-02-09 00:58 | XMS_ITS | Encounter Summary ---
:1975 Author Organization [facility] Address [address] [place] [address] Care Team Providers Name Role Phone Unavailable Primary Care Provider Unavailable Reason for Referral Speech Pathology (Routine) - Closed Specialty Diagnoses / Procedures Referred By Contact Refer red To Contact Diagnoses Dystonia [facility] Procedures SUPERVISOR ESTIMATOR [employer] DRAFTER Voice evaluation P.A.-C. [address] [place] [address] Referral ID Status Reason Start Date Expiration Date Visits Requ ested Visits Authorized [id number] Closed 06/23/2020 06/23/2021 1 1 ONER Reason for Visit Appointment Request (Routine) - Closed Specialty Diagnoses / Procedures Referred By Contact Refer red To Contact Otorhinolaryngology Diagnoses Laryngitis Referral ID Status Reason Start Date Expiration Date Visits Requ ested Visits Authorized [id number] Closed 06/20/2020 06/20/2021 1 1 Encounter Details Date Type Department Care Team Description 06/23/2020 Comprehensive Visit Department of Nicky Arredondo ia Otorhinolaryngology in [place], (Prim pearl Dx) [place], [place] [facility], P.A[facility]CX[facility] [address] [facility] [address] [place] [address] [place], [place] [phone] Social History Tobacco Use Types Packs/Day Years [...] or relatives? How often do you attend orthodoxy or 1 to 4 times per year 06/06 amish services? Do you belong to any clubs or No 06/26/2020 organizations such as orthodoxy groups, unions, fraternal or athletic groups, or [...] documented as of this encounter Consult Notes Julia Christy P.A.-C. - 06/23/2020 8:45 AM CST CHIEF COMPLAINT / REASON FOR VISIT Dysphonia HISTORY OF PRESENT ILLNESS Ms. Alyssa Aguillon is a 44 y.o. female who presents for evaluation of hoarseness. She reports that on June 14 she went to her dentist for a root canal. At one point during the procedure, she had a mouth full of some solution/chemical in her mouth and they indicated she needed to spit it out, but before she could do that it went down her throat and she swallowed it. She reports it burned her throat as it went down and her throat burned so badly she had tears in her eyes. She also reports shewas feeling anxious because they had told her she shouldn't swallow the solution and she reports they said it was like bleach. She rinsed her throat with water and drank some water but the burning pain persisted and she went to urgent care who prescribed her Magic Mouthwash which she wasn't ever able to get. She shares that the urgent care provider indicated she should have someone at home to watchher overnight in case her airway became swollen and that at this point she was very anxious about the pain and this whole situation. The day after the procedure she reports she woke up and had no voiceand that it hurt to try to speak. 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 On Jun 15, the day of the procedure, she was taking a bath and felt she couldn't catch her breath and ended up calling 911 and going by ambulance to the ED where she was assess, given a steroid and pain medicine and discharged same day. She reports she was seen by an ENT closer to home but didn't get a clear answer as to what is going on and is hear to better understand. She is taking Toradol for pain and has been taking an oral steroid but not consistently. She reports a burning/stinging pain at a 4/10 in her throat and that her voice is very weak. She finds she can say some letter sounds and hum but cannot project a single word. Denies a history of acid reflux, issues like this in the past, dysphagia, odynophagia, hemoptysis. She denies aspiration symptoms. She doesn't use any steroid inhalers and has never surgery on her head or neck in the past. Never smoker. Occasional alcohol use. Stays busy with pet dog and cats and 7 wonderful children. 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 Breathy dysphonia. Voice is a whisper. Face: House Brackman I/ bilaterally Head: Normocephalic, atraumatic Ears: Normal formed pinna. External auditory canals are clear and patent bilaterally. Tympanic membranes intact, non-erythematous, and non-bulging. Nose: Normally formed external nose. By anterior rhinoscopy, nasal mucosa is pink and moist without masses lesions. Oral cavity: Good mouth opening. Dentition is good. Tongue is freely mobile without fasciculations or atrophy. Soft palate rises equally bilaterally. Upon inspection and palpation, there are no masses or lesions noted of the buccal mucosa, floor of mouth, oral tongue. Neck: Neck is supple, no nodularity or lymphadenopathy noted. Anterior cervical musculature feels tense. Neuro: Cranial nerves 2-12 are grossly intact Pulm: Nonlabored breathing Other: After obtaining verbal consent and applying topical anesthesia, flexible fiberoptic nasolaryngoscopy was performed and demonstrated in tact mucosa with no concerning masses or lesions of the nasopharynx, oropharynx, hypopharynx, supraglottis or glottis. Bilateral true vocal cords are symmetric and mobile when she hums or clears her throat. Incomplete glottic closure with normal phonation. Full excursion with a strong inhalation. Some mild intraarytenoid edema is noted. No ulceration or remarkable erythema. DIAGNOSTICS REVIEWED none IMPRESSION/REPORT/PLAN #1 Dysphonia Ms. Alyssa Aguillon is a wonderfully pleasant 44 y.o. female who had a traumatic experience at thedentist on June 14 during root canal where she swallowed an unknown substance that was explained to her to be a very irritating substance, something like bleach. Since then she has essentially been aphonic, and her voice only being a whisper. She is swallowing normally and breathing comfortably for the most part. She also endorses significant anxiety surrounding this event and the subsequent loss of voice. She has not had a problem like this in the past. Her physical examination demonstrates aweak, breathy voice, that of a whisper only. She is able to hum when asked to do so and clear her throat. She denies aspiration symptoms. On flexible nasal laryngoscopy today, I am able to see full adduction and abduction of the vocal cords when throat clearing or humming and taking a deep breath. When asked to speak in plain words, there is a wide glottic gap and evident muscular straining. There isno evidence of concerning mass or lesion or obvious ulceration or erythema to indicate mucositis or something of the like. 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 I think she would benefit from visiting with 1 of our speech language pathologists. My wonderful colleague Alyssa Siddiqi has agreed to see her today and the patient was having hear this. Am hopeful that she will be able to get back tonormal phonation. I recommended she reach out if she continues to have difficulties or has any questions or concerns. It was a pleasure to visit with her today. Julia Christy P.A.-C. Encounter time: 60 minutes was spent with the patient and in same day care coordination ONER documented in this encounter Plan of Treatment Not on filedocumented as of this encounter Visit Diagnoses Diagnosis Dysphonia - Primary documented in this encounter
--- OUTSIDE RECORDS SUMMARY | 2022-02-09 00:58 | XMS_ITS | Encounter Summary ---
:1975 Author Organization [facility] Address [address] [place] [address] Support Name Relationship Address Phone Leanne Wu Unavailable Unavailable [phone] [place], [facility] Team Providers Name Role Phone [facility] Primary Care Provider Ingrid Gillespie KEY PERSON Unavailable Reason for Referral Diagnostic Imaging Ultrasound (Routine) - Closed Specialty Diagnoses / Procedures Referred By Contact Refer red To Contact Diagnoses DUB (dysfunctional uterine bleeding) Meg Vigil Procedures US Pelvic Complete with Transvaginal JEREMY Christopher [address] [place] [address] Referral ID Status Reason Start Date Expiration Date Visits Requ ested Visits Authorized [id number] Closed 12/28/2020 12/28/2021 1 1 onsultation (Routine) - Closed Specialty Diagnoses / Procedures Referred By Contact Refer red To Contact Medical Oncology Diagnoses Iron deficiency anemia due to chronic blood loss Meg Vigil Rh Ca ncer Cl Rscc JEREMY Christopher [address] Daily [place] [address] [facility] [address] [place] [address] [facility] [place] [address] Phone: Fax: Referral ID Status Reason Start Date Expiration Date Visits Requ ested Visits Authorized [id number] Closed 12/28/2020 12/28/2021 1 1 onsultation (Routine) - Closed Specialty Diagnoses / Procedures Referred By Contact Refer red To Contact Surgery Diagnoses Umbilical hernia without obstruction and without gangrene Meg Vigil Surgical Consult JEREMY Christopher [address] [facility] [address] [facility] [address] [place] [address] [place] [address] Phone: Fax: Referral ID Status Reason Start Date Expiration Date Visits Requ ested Visits Authorized [id number] Closed 12/28/2020 12/28/2021 1 1 Reason for Visit Reason Comments Fatigue Encounter Details Date Type Department Care Team Description 12/28/2020 Office Visit [facility] Meg Vigil Fatigu e, unspecified type (Primary Dx); Clinic [place] JEREMY Christopher Fever, unspecified fever cause; [address] [facility] [address] [facility] [address] [facility] DUB (dysfunctional uterine bleeding); [place] [address] Iron deficiency anemia due to chronic bl ood loss; [id number] Umbilical hernia without obstruction and without gangrene; [phone] Lipid scr eening Social History Tobacco Use Types Packs/Day Years [...] Sign Reading Time Taken Comments Blood Pressure 134/72 12/28/2020 4:41 PM CDT Pulse 94 12/28/2020 4:41 PM CDT Temperature 36.2 ??C (97.1 ??F) 12/28/2020 4:41 PM CDT Respiratory Rate 16 12/28/2020 4:41 PM CDT Oxygen Saturation 100% 12/28/2020 4:41 PM CDT Inhaled Oxygen Concentration - - Weight 78.5 kg (173 lb) 12/28/2020 4:41 PM CDT Height 163.8 cm (5' 4.5) 12/28/2020 4:41 PM CDT Body Mass Index 29.24 12/28/2020 4:41 PM CDT documented in this encounter Progress Notes Meg Vigil PA-C - 12/28/2020 4:30 PM CDT Assessment & Plan Fatigue, unspecified type Fever, unspecified fever cause Body aches 45 yo female presents with 1.5 week hx of body aches/chills/fatigue with fever at onset for a coupleof days and minimal respiratory sx. DDx includes viral process which seems most likely at this pointespecially since sx waning/improving since that time. Covid19 negative. Was up arley though visiting sister for wedding so considered alternative etiology including rule out lyme. Reports main residualsymptom is fatigue/achiness (about 50% better) and this could be exacerbated by chronic underlying iron deficiency anemia. Unfortunately continues to suffer with DUB despite previous trials with her [employer] of OCPs and uterine ablation. Is supposed to be on iron supplementation, but admits she never takes this due to intolerance (nausea and reports makes her feel presyncopal vs gives her bad anxiety that she will have a negative reaction). Repeat labs for stability, but discussed picking up where [employer] left off and will repeat pelvic US to ensure no major changes. Advised to check back in on long-term solution and in the meantime will refer to hematology to see if she's a candidate for iron infusion. F/u pending labs in 1 week. - CBC with platelets; Future - Ferritin; Future - Comprehensive metabolic panel (BMP + Alb, Alk Phos, ALT, AST, Total. Bili, TP); Future - ESR: Erythrocyte sedimentation rate; Future - CRP, inflammation; Future - Lyme Disease Ramone with reflex to WB Serum; Future - TSH with free T4 reflex; Future - Rheumatoid factor; Future - Anti Nuclear Ramone IgG by IFA with Reflex; Future - CBC with platelets - Ferritin - Comprehensive metabolic panel (BMP + Alb, Alk Phos, ALT, AST, Total. Bili, TP) - ESR: Erythrocyte sedimentation rate - CRP, inflammation - Lyme Disease Ramone with reflex to WB Serum - TSH with free T4 reflex - Rheumatoid factor - Anti Nuclear Ramone IgG by IFA with Reflex DUB (dysfunctional uterine bleeding) See notes above - US Pelvic Complete with Transvaginal; Future Iron deficiency anemia due to chronic blood loss See notes above - CBC with platelets; Future - Ferritin; Future - Oncology/Hematology Adult Referral; Future - CBC with platelets - Ferritin Umbilical hernia without obstruction and without gangrene Noted incidentally on exam as also mentioned some bloating. Unclear if this would be contributing vsrelated to her DUB and hx of fibroids. Will refer to gen surg for consult as well. - Adult General Surg Referral; Future Lipid screening - Lipid panel reflex to direct LDL Fasting; Future - Lipid panel reflex to direct LDL Fasting Return in about 1 week (around 01/04/2021). Meg Vigil PA-C [facility] Mcadams is a 45 year old who presents for the following health issues: HPI Concern - Fatigue and body aches, tested negative for covid Onset: x 1 1/2 weeks, 12/18 Description: body aches, fatigue, dizziness. Last week had [place], chills, fever 102 for a couple of days and came on all of a sudden at work with achiness all over, worsening fatigue - felt like she couldbarely keep her eyes open. Over the weekend things seemed to improve fever resolved and achiness haswaned estimates about 50% better. One episode of diarrhea, since resolved. A little scratchy throat,but nothng major. No vomiting or chronic diarrnea. No loss of taste or smell. No rash. No redness, warmth or swelling of joints. No known tick bite - [place] weekend preceding this though so not sure. Reports week preceding this had a tickle of a cough, but no runny nose or sore throat. Had COVID in Mar and received both immunizations since, but felt reminiscent of what she had when she had COVID so had testing completed anyway which was normal. Intensity: moderate Progression of Symptoms: same Accompanying Signs & Symptoms: fatigue, body aches Previous history of similar problem: yes Precipitating factors: Worsened by: no Alleviating factors: Improved by: sleep Therapies tried and outcome: tylenol PMHx significant for iron deficiency anemia which has been attributed to chronic blood loss from menses/DUB. Monthly periods lasting 4-5 days. Super tampon changing hourly for duration. Had uterine ablation completed 09/2019 [facility]. Unfortunately, tells me this didn't work and bleeding is thesame. Tried OCPs before this which wasn't successful either. Is supposed to be taking iron, but reports she doesn't take it due to intolerance causing nausea and makes her feel pre-syncopal vs related to anxiety as admits significant concern that it will make her feel bad so doesn't ever take it for that reason. Has not gone back to recheck things with [employer] yet. Sochx: daughter in and out of the hospital with anorexia; gets hospitalized requires feeding tube. 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 buPROPion (WELLBUTRIN XL) 300 MG 24 hr tablet ??? ferrous sulfate (SLO-FE) 142 (45 Fe) MG CR tablet No current facility-administered medications for this visit. Allergies Allergen Reactions ??? Compazine [Prochlorperazine] anxiety ??? Tamiflu [Oseltamivir] Hives Review of Systems Constitutional, HEENT, cardiovascular, pulmonary, gi and gu, psych, neuro, endocrine systems are negative, except as otherwise noted. Objective BP 134/72 Pulse 94 Temp 97.1 ??F (36.2 ??C) (Tympanic) Resp 16 Ht 1.638 m (5' 4.5) Wt 78.5 kg (173 lb) LMP 12/04/2020 SpO2 100% BMI 29.24 kg/m?? Body mass index is 29.24 kg/m??. Physical Exam GENERAL: healthy, alert and no distress EYES: Eyes grossly normal to inspection, PERRL and conjunctivae and sclerae normal HENT: ear canals and TM's normal, nose and mouth without ulcers or lesions NECK: no adenopathy, no asymmetry, masses, or scars and thyroid normal to palpation RESP: lungs clear to auscultation - no rales, rhonchi or wheezes CV: regular rates and rhythm and no murmur, click or rub ABDOMEN: soft, nontender excluding over small umbilical hernia- this is easily reduced though with gentle palpation, no hepatosplenomegaly, no masses and bowel sounds normal MS: no gross musculoskeletal defects noted, no edema NEURO: Normal strength and tone, mentation intact and speech normal PSYCH: mentation appears normal, affect normal/bright, but appears anxious at times throughout visit. Reviewed previous labs showing chronic iron deficiency anemia documented in this encounter Miscellaneous Notes Result Encounter Note - Meg Vigil PA-C - 12/28/2020 4:30 PM CDT Dear Pmea, Your recent test results are noted below: -All of your labs are normal excluding your hemoglobin and iron levels continue to be low. As previously discussed you may have had a viral process that exacerbated your underlying chronic fatigue. I would recommend following up with hematology for consideration to iron transfusion since you're unableto tolerate oral iron. Additionally, follow-up for your pelvic ultrasound then your [employer] to see what the next plan will be for helping to control the bleeding/minimize ongoing anemia from it. For additional lab test information, [email or web address] is an excellent reference. Please contact the clinic at with any further questions or concerns. Sincerely, Meg Vigil PA-C [facility] documented in this encounter Plan of Treatment Scheduled Orders Name Type Priority Associated Diagnoses Order S chedule US Pelvic Complete with Imaging Routine DUB (dysfunctiona l Expected: 12/28/2020 Transvaginal uterine bleeding) (Approxima te), Expires: 2021 Scheduled Referrals Name Type Priority Associated Diagnoses Order S danika Adult General Surg Referral Routine Umbilical hernia witho ut Expected: 12/28/2020 Referral obstruction and without (Mason roximate), gangrene Expires: 2021 Oncology/Hematology Referral Routine Iron deficiency anemi a Expected: 12/28/2020 Adult Referral due to chronic blood (Appr oximate), loss Expires: 2021 documented as of this encounter Procedures Procedure Name Priority Date/Time Associated Comments Diagnosis ANTI NUCLEAR RAMONE IGG Routine 12/28/2020 5:52 PM Fever, unspeci fied Results for this BY IFA WITH REFLEX CDT fever cause procedure are in Body aches the results Fatigue, section. unspecified type LYME DISEASE TOTAL ABS Routine 12/28/2020 5:52 PM Fever, unspe cified Results for this BLD WITH REFLEX TO CDT fever cause procedure are in CONFIRM CLIA Body aches the results Fatigue, section. unspecified type TSH WITH FREE T4 Routine 12/28/2020 5:52 PM Fever, unspecified Results for this REFLEX CDT fever cause procedure are in Body aches the results Fatigue, section. unspecified type RHEUMATOID FACTOR Routine 12/28/2020 5:52 PM Fever, unspecifie d Results for this CDT fever cause procedure are in Body aches the results Fatigue, section. unspecified type LIPID REFLEX TO DIRECT Routine 12/28/2020 5:52 PM Lipid screen ing Results for this LDL PANEL CDT procedure are i n the results section. FERRITIN Routine 12/28/2020 5:52 PM Fever, unspecified Res ults for this CDT fever cause procedure are in Body aches the results Fatigue, section. unspecified type Iron deficiency anemia due to chronic blood loss ERYTHROCYTE Routine 12/28/2020 5:52 PM Fever, unspecified Res ults for this SEDIMENTATION RATE CDT fever cause procedure are in AUTO Body aches the results Fatigue, section. unspecified type CRP INFLAMMATION Routine 12/28/2020 5:52 PM Fever, unspecified Results for this CDT fever cause procedure are in Body aches the results Fatigue, section. unspecified type COMPREHENSIVE Routine 12/28/2020 5:52 PM Fever, unspecified Re sults for this METABOLIC PANEL CDT fever cause procedure are in Body aches the results Fatigue, section. unspecified type CBC WITH PLATELETS Routine 12/28/2020 5:52 PM Fever, unspecifi ed Results for this CDT fever cause procedure are in Body aches the results Fatigue, section. unspecified type Iron deficiency anemia due to chronic blood loss documented in this encounter Results (ABNORMAL) Lipid panel reflex to direct LDL Fasting (12/28/2020 5:52 PM CDT) athologist Signature Cholesterol 176 <200 mg/dL 12/29/2020 [facility] 2:33 PM CDT Comment: Age 0-19 years Desirable: <170 mg/dL Borderline high: ??170-199 mg/dl High: ?>199 mg/dl Age 20 years and older Desirable: <200 mg/dL Triglycerides 140 <150 mg/dL 12/29/2020 2:33 PM CDT [facility] Comment: 0-9 years: Normal: ?Less than 75 mg/dL Borderline high: ??75-99 mg/dL High: ? Greater than or equal to 100 mg/dL 0-19 years: Normal: ?Less than 90 mg/dL Borderline high: ??90-129 mg/dL High: ? Greater than or equal to 130 mg/dL 20 years and older: Normal: ?Less than 150 mg/dL Borderline high: ??150-199 mg/dL High: ? 200-499 mg/dL Very high: ?? Greater than or equal to 5 00 mg/dL Direct Measure HDL 40 (L) >=50 mg/dL 12/29/2020 2:33 PM C DT [facility] Comment: 0-19 years: ? Greater than or equal to 45 mg/dL Low: Less than 40 mg/dL Borderline low: 40-44 mg/dL 20 years and older: Female: Greater than or equal to 50 mg/d L Male: ?? Greater than or equal to 40 mg/ dL LDL Cholesterol 108 (H) <=100 mg/dL 12/29/2020 2:33 PM CDT [facility] Calculated Comment: Age 0-19 years: Desirable: 0-110 mg/dL Borderline high: 110-129 mg/dL High: >= 130 mg/dL Age 20 years and older: Desirable: <100mg/dL Above desirable: 100-129 mg/dL Borderline high: 130-159 mg/dL High: 160-189 mg/dL Very high: >= 190 mg/dL Non HDL Cholesterol 136 (H) <130 mg/dL 12/29/2020 2:33 PM CDT [facility] Comment: 0-19 years: Desirable: ? Less than 120 mg/ dL Borderline high: ?? 120-144 mg/dL High: ? Greater th an or equal to 145 mg/dL 20 years and older: Desirable: ? 130 mg/dL Above Desirable: 130-159 mg/dL Borderline high: ?? 160-189 mg/dL High: ? 190-219 mg/dL Very high: ?? Greater than or equal to 2 20 mg/dL Patient Fasting > 8hrs? No 12/29/2020 2:33 PM CDT [facility] Specimen Anatomical Collection Method / Collection Time Recei romeo Time (Source) Location / Volume Laterality Blood STRUCTURE OF RIGHT Venipuncture / 12/28/2020 5:52 12/04 5:53 UPPER LIMB / Unknown PM CDT PM CDT Unknown Meg Vigil PA-C LAB - BLOOD ORDERABLES Performing Organization Address City/State/ZIP Code Phon e Number [facility] [place], [place] [phone] [place] [facility] [facility] [address] Lab (no room number, 1st floor of clinic) [facility] [place], [place] [phone] [facility] [phone], [facility] [place] [facility] [address] Lab (no room number, 1st floor of clinic) Anti Nuclear Ramone IgG by IFA with Reflex (12/28/2020 5:52 PM CDT) Patholo gist Method Time Signature JAVIER interpretation Negative Negative [facility] PM CDT SPECIALTY CORE Comment: Negative: ?<1:40 Borderline Positive: ?? 1:40 - 1:80 Positive: ?>1:80 Specimen Anatomical Collection Method / Collection Time Recei romeo Time (Source) Location / Volume Laterality Blood STRUCTURE OF RIGHT Venipuncture / 12/28/2020 5:52 /2 10/2020 5:53 UPPER LIMB / Unknown PM CDT PM CDT Unknown Meg Vigil PA-C LAB - BLOOD ORDERABLES Performing Organization Address City/[facility]/ZIP Code Phon [place] [address] CORE/PROT/ENDO Core/Prot/Endo [address] [facility], Room [address] [place] Lab [address], [facility] [address] [facility], Room L271-5 Rheumatoid factor (12/28/2020 5:52 PM CDT) P athologist Signature Rheumatoid <7 <20 IU/mL 01/01/2021 [facility] Factor 9:24 AM CDT SPECIALTY CORE Specimen Anatomical Collection Method / Collection Time Recei romeo Time (Source) Location / Volume Laterality Blood STRUCTURE OF RIGHT Venipuncture / 12/28/2020 5:52 12/04 5:53 UPPER LIMB / Unknown PM CDT PM CDT Unknown Meg Vigil PA-C LAB - BLOOD ORDERABLES Performing Organization Address City/State/ZIP Code Phon [place] [address] CORE/PROT/ENDO Core/Prot/Endo 500 [facility] [address] Building, Room 3[address]580 [facility] [place] [address], [facility] [address] [facility], Room L271-5 TSH with free T4 reflex (12/28/2020 5:52 PM CDT) athologist Signature TSH 1.50 0.40 - 4.00 12/29/2020 [facility] mU/L 2:41 PM CDT Specimen Anatomical Collection Method / Collection Time Recei romeo Time (Source) Location / Volume Laterality Blood STRUCTURE OF RIGHT Venipuncture / 12/28/2020 5:52 08/2 10/2020 5:53 UPPER LIMB / Unknown PM CDT PM CDT Unknown Meg Vigil PA-C LAB - BLOOD ORDERABLES Performing Organization Address City/State/ZIP Code Phon e Number [facility] [place], [place] [phone] [facility] [phone] [place] [address] Lab (no room number, 1st floor of clinic) [facility] [place], [place] [phone] [facility] [facility] [address] Lab (no room number, 1st floor of clinic) Lyme Disease Ramone with reflex to WB Serum (12/28/2020 5:52 PM CDT) athologist Signature Lyme Disease 0.19 <0.90 01/01/2021 [facility] Antibodies 1:32 PM CDT SPECIALTY CORE Total Comment: Negative, Absence of detectable Borrelia burdorferi antibodies. A negative result does not exclude the possibility of Borrelia burgdorferi infection. If early Lyme disease is suspected, a second samp le should be collected and tested 2 to 4 weeks later. Specimen Anatomical Collection Method / Collection Time Recei romeo Time (Source) Location / Volume Laterality Blood STRUCTURE OF RIGHT Venipuncture / 12/28/2020 5:52 08/2 10/2020 5:53 UPPER LIMB / Unknown PM CDT PM CDT Unknown Meg Vigil PA-C LAB - BLOOD ORDERABLES Performing Organization Address City/State/ZIP Code Phon [place] [address] CORE/PROT/ENDO Core/Prot/Endo [address] [facility] [address] Building, Room 3[address]580 [facility] Specialty [place] Lab [address], [facility] 420 [facility], Room L271-5 CRP, inflammation (12/28/2020 5:52 PM CDT) Analysis Performed At Patho logist Time Signature CRP Inflammation <2.9 0.0 - 8.0 12/29/2020 [facility] Y mg/L 11:33 PM CDT Specimen Anatomical Collection Method / Collection Time Recei romeo Time (Source) Location / Volume Laterality Blood STRUCTURE OF RIGHT Venipuncture / 12/28/2020 5:52 08/2 10/2020 5:53 UPPER LIMB / Unknown PM CDT PM CDT Unknown Meg Vigil PA-C LAB - BLOOD ORDERABLES Performing Organization Address City/State/ZIP Code Phon e [place] [address] Lab [address] [facility], Room 3[address]580 [place] [address], Lab [facility] [address] [facility], Room 3580 ESR: Erythrocyte sedimentation rate (12/28/2020 5:52 PM CDT) Patholo gist Method Time Signature Erythrocyte 13 0 - 20 12/28/2020 [facility] Sedimentation Rate mm/hr 6:02 PM CDT Specimen Anatomical Collection Method / Collection Time Recei romeo Time (Source) Location / Volume Laterality Blood STRUCTURE OF RIGHT Venipuncture / 12/28/2020 5:52 08/2 10/2020 5:53 UPPER LIMB / Unknown PM CDT PM CDT Unknown Meg Vigil PA-C LAB - BLOOD ORDERABLES Performing Organization Address City/State/ZIP Code Phon e Number [facility] [place] [address] [phone] [facility] [address] [place] [address] S. E. Lab (no room number, 1st floor of clinic) [place] [address], [phone] [facility] [address] [place] [address] S. E. Lab (no room number, 1st floor of clinic) Comprehensive metabolic panel (BMP + Alb, Alk Phos, ALT, AST, Total. Bili, TP) (12/28/2020 5:52 PM CDT) P athologist Signature Sodium 136 133 - 144 12/29/2020 [facility] mmol/L 2:32 PM CDT Potassium 4.1 3.4 - 5.3 12/29/2020 [facility] mmol/L 2:32 PM CDT Chloride 104 94 - 109 12/29/2020 [facility] mmol/L 2:32 PM CDT Carbon Dioxide 23 20 - 32 12/29/2020 [facility] (CO2) mmol/L 2:32 PM CDT Anion Gap 9 3 - 14 12/29/2020 [facility] mmol/L 2:32 PM CDT Urea Nitrogen 11 7 - 30 12/29/2020 [facility] mg/dL 2:32 PM CDT Creatinine 0.66 0.52 - 12/29/2020 [facility] 1.04 mg/dL 2:32 PM CDT Calcium 8.9 8.5 - 10.1 12/29/2020 [facility] mg/dL 2:32 PM CDT Glucose 85 70 - 99 12/29/2020 [facility] mg/dL 2:32 PM CDT Alkaline 75 40 - 150 12/29/2020 [facility] Phosphatase U/L 2:32 PM CDT AST 38 0 - 45 U/L 12/29/2020 [facility] 2:32 PM CDT ALT 46 0 - 50 U/L 12/29/2020 [facility] 2:32 PM CDT Protein Total 7.8 6.8 - 8.8 12/29/2020 [facility] g/dL 2:32 PM CDT Albumin 3.4 3.4 - 5.0 12/29/2020 [facility] g/dL 2:32 PM CDT Bilirubin Total 0.7 0.2 - 1.3 12/29/2020 [facility] mg/dL 2:32 PM CDT GFR Estimate >90 >60 12/29/2020 [facility] mL/min/1.7 2:32 PM CDT 3m2 Comment: As of November 12, 2020, eGFR is ca lculated by the CKD-EPI creatinine equation, without race adjustment. eGFR can be inf luenced by muscle mass, exercise, and diet. The reported eGFR is an estimation only and is only applicable if the renal function is stable. Specimen Anatomical Collection Method / Collection Time Recei romeo Time (Source) Location / Volume Laterality Blood STRUCTURE OF RIGHT Venipuncture / 12/28/2020 5:52 12/04 5:53 UPPER LIMB / Unknown PM CDT PM CDT Unknown eMg Vigil PA-C LAB - BLOOD ORDERABLES Performing Organization Address [facility] Phon e Number [facility] [place], [place] [phone] [facility] [phone] [place] [address] Lab (no room number, 1st floor of clinic) [facility] [place], [place] [phone] [place] [phone] [address] Lab (no room number, 1st floor of clinic) (ABNORMAL) Ferritin (12/28/2020 5:52 PM CDT) P athologist Signature Ferritin 6 (L) 8 - 252 12/29/2020 [facility] ng/mL 2:36 PM CDT Specimen Anatomical Collection Method / Collection Time Recei romeo Time (Source) Location / Volume Laterality Blood STRUCTURE OF RIGHT Venipuncture / 12/28/2020 5:52 12/04 5:53 UPPER LIMB / Unknown PM CDT PM CDT Unknown Meg Vigil PA-C LAB - BLOOD ORDERABLES Performing Organization Address [facility] Phon e Number [facility] [place], [place] [phone] [facility] [phone] [place] [address] Lab (no room number, 1st floor of clinic) [facility] [place], [place] [phone] [facility] [phone], [facility] [address] Lab (no room number, 1st floor of clinic) (ABNORMAL) CBC with platelets (12/28/2020 5:52 PM CDT) Patholo gist Method Time Signature WBC Count 7.5 4.0 - 11.0 12/28/2020 [facility] 10e3/uL 6:02 PM CDT RBC Count 4.20 3.80 - 12/28/2020 [facility] 5.20 6:02 PM CDT 10e6/uL Hemoglobin 10.7 (L) 11.7 - 12/28/2020 [facility] 15.7 g/dL 6:02 PM CDT Hematocrit 33.4 (L) 35.0 - 12/28/2020 [facility] 47.0 % 6:02 PM CDT MCV 80 78 - 100 12/28/2020 [facility] fL 6:02 PM CDT MCH 25.5 (L) 26.5 - 12/28/2020 [facility] 33.0 pg 6:02 PM CDT MCHC 32.0 31.5 - 12/28/2020 [facility] 36.5 g/dL 6:02 PM CDT RDW 14.3 10.0 - 12/28/2020 [facility] 15.0 % 6:02 PM CDT Platelet Count 294 150 - 450 12/28/2020 [facility] 10e3/uL 6:02 PM CDT Specimen Anatomical Collection Method / Collection Time Recei romeo Time (Source) Location / Volume Laterality Blood STRUCTURE OF RIGHT Venipuncture / 12/28/2020 5:52 08/2 10/2020 5:53 UPPER LIMB / Unknown PM CDT PM CDT Unknown Meg Vigil PA-C LAB - BLOOD ORDERABLES Performing Organization Address City/State/ZIP Code [place] [address] [facility] [address] [place] [address] [facility]. Lab (no room number, 1st floor of clinic) [place] [address], [facility] [address] [place] [address] S[facility] Lab (no room number, 1st floor of clinic) documented in this encounter Visit Diagnoses Diagnosis Fatigue, unspecified type - Primary Fever, unspecified fever cause Body aches Generalized pain DUB (dysfunctional uterine bleeding) Other disorder of menstruation and other abnormal bleeding from female genital tract Iron deficiency anemia due to chronic bl ood loss Iron deficiency anemia secondary to bloo d loss (chronic) Umbilical hernia without obstruction and without gangrene Lipid screening Screening for lipoid disorders documented in this encounter Additional Health Concerns Assessment Noted Time PHQ-9 Depression Total Score: 12 09/17/2018 1:32 PM CD T documented as of this encounter Care Teams Production Machine Shop Supervisor Relationship Specialty Start Date End Date Clinic - [facility] PCP - General 09/16/18 [address] [place] [address] Ingrid Gillespie, KEY PERSON Assigned PCP 09/28/20 12/30/20 [address] [place] [address] documented as of this encounter
--- OUTSIDE RECORDS SUMMARY | 2022-02-09 00:58 | XMS_ITS | Encounter Summary ---
:1975 Author Organization [place] Address [address] [facility] [place] [address] Care Team Providers Name Role Phone [facility] Primary Care Provider Rafaela Higuera PA-C Unavailable [phone] Encounter Details Date Type Department Care Team Description 01/04/2021 Travel Social History Tobacco Use Types Packs/Day [...] been in contact with No / Unsure 01/04/2021 5:29 PM CDT someone who was confirmed or suspected to have Coronavirus / COVID-19? documented as of this encounter Plan of Treatment Not on filedocumented as of this encounter Visit Diagnoses Not on filedocumented in this encounter Additional Health Concerns Assessment Noted Time PHQ-9 Depression Total Score: 12 09/17/2018 1:32 PM CD T documented as of this encounter Care Teams Flower Planter Relationship Specialty Start Date End Date Clinic - [facility] PCP - General 09/16/18 [address] [place] [address] Rafaela Higuera PA-C Assigned PCP 12/31/20 01/06/21 [address] [place] [id number] documented as of this encounter
--- OUTSIDE RECORDS SUMMARY | 2022-02-09 00:58 | XMS_ITS | Encounter Summary ---
:1975 Author Organization [place] Address [address] [facility] [place] [address] Care Team Providers Name Role Phone [facility] Primary Care Provider Ingrid Gillespie OXYHYDROGEN WELDER Unavailable Luis E Mtz MD Unavailable Encounter Details Date Type Department Care Team Description 02/07/2021 Documentation Only INTERFACED REPORT Unknown, Provider Social History Tobacco Use Types Packs/Day Years [...] been in contact with No / Unsure 02/07/2021 3:52 PM CDT someone who was confirmed or suspected to have Coronavirus / COVID-19? documented as of this encounter Plan of Treatment Not on filedocumented as of this encounter Visit Diagnoses Not on filedocumented in this encounter Additional Health Concerns Assessment Noted Time PHQ-9 Depression Total Score: 12 09/17/2018 1:32 PM CD T documented as of this encounter Care Teams Breeder Service Technician Relationship Specialty Start Date End Date Clinic - [facility] PCP - General 09/16/18 [place] [address] [place] [address] Ingrid Gillespie, LYUDMILA Assigned PCP 01/28/21 [address] [place], [place] [address] Luis E Mtz MD Assigned Surgical Provider 01/14/21 Alivia E ATILIO [facility] [address] [place], [place] [id number] documented as of this encounter
--- OUTSIDE RECORDS SUMMARY | 2022-02-09 00:58 | XMS_ITS | Encounter Summary ---
:1975 Author Organization [place] Address [address] [place] [address] Care Team Providers Name Role Phone [facility] Primary Care Provider Ingrid Gillespie CERTIFIED PESTICIDE APPLICATOR Unavailable Luis E Mtz MD Unavailable Encounter Details Date Type Department Care Team Description 02/07/2021 Travel Social History Tobacco Use Types Packs/Day [...] documented as of this encounter Care Teams Ribbon Hand Relationship Specialty Start Date End Date Clinic - [facility] PCP - General 09/16/18 [place] [address] [place] [address] Ingrid Gillespie, LYUDMILA Assigned PCP 01/28/21 [address] [place], [place] [address] Luis E Mtz MD Assigned Surgical Provider 01/14/21 Alivia [facility] [address] [place], [place] [address] documented as of this encounter
--- OUTSIDE RECORDS SUMMARY | 2022-02-09 00:58 | XMS_ITS | Encounter Summary ---
:1975 Author Organization [place] Address [address] [facility] [place] [address] Care Team Providers Name Role Phone [facility] - [facility] Primary Care Provider Ingrid Gillespie PATROL POLICE SERGEANT Unavailable Reason for Visit Reason Comments Arthritis Encounter Details Date Type Department Care Team Description 12/18/2020 Virtual Visit [facility] Dusty Patel, Viral u pper Clinic Ryley Ugarte, respiratory tract [address] Kathie Michaele PA-C infection ([place], [address]x) [place] [phone] [address] [place] [place] [id number] Social History Tobacco Use Types Packs/Day Years [...] / COVID-19? documented as of this encounter Progress Notes CannRafaela Castro PA-C - 12/18/2020 5:30 PM CDT Pema is a 45 year old who is being evaluated via a billable telephone visit. What phone number would you like to be contacted at? [phone] How would you like to obtain your AVS? MyChart Assessment & Plan Assessment and Plan: (J06.9) Viral upper respiratory tract infection (primary encounter diagnosis) Comment: febrile, was at wedding over the weekend, no focal complaints other than URI sxs Plan: Symptomatic COVID-19 Virus (Coronavirus) by PCR Also recommend she be evaluated in the clinic by pcp this week for febrile illness, discussed reasons to be seen in the ED Rafaela Patel PA-C [facility] RYLEY Mcadams is a 45 year old who presents for the following health issues Onset today--exhaustion Has pain all over, joints hurt and feels generally very achy Reports chills and temperature of 102 orally this afternoon She has had URI sxs since last week--congestion, cough Kids with same Covid tests negative Fully vaccinated for Covid and had it last year [place] She had some nausea but no vomiting this am She has had a mild sore throat She denies nausea/vomiting, headache, shortness of breath, abdominal pain, dysuria She denies tick bites HPI 5:33 Review of Systems See above Objective Vitals: No vitals were obtained today due to virtual visit. Physical Exam no physical exam Phone call duration: 7 minutes documented in this encounter Plan of Treatment Not on filedocumented as of this encounter Visit Diagnoses Diagnosis Viral upper respiratory tract infection - Primary Acute upper respiratory infections of un specified site documented in this encounter Additional Health Concerns Assessment Noted Time PHQ-9 Depression Total Score: 12 09/17/2018 1:32 PM CD T documented as of this encounter Care Teams Torpedo Worker Relationship Specialty Start Date End Date Clinic - [facility] PCP - General 09/16/18 [address] [place] [address] Ingrid Gillespie, PATROL POLICE SERGEANT Assigned PCP 09/28/20 12/30/20 [facility] [place] [address] documented as of this encounter
--- OUTSIDE RECORDS SUMMARY | 2022-02-09 00:58 | XMS_ITS | Encounter Summary ---
:1975 Author Organization [place] Address [address] [facility] [place] [address] Care Team Providers Name Role Phone [facility] Primary Care Provider Rafaela Higuera PA-C Unavailable Encounter Details Date Type Department Care Team Description 01/05/2021 Travel Social History Tobacco Use Types Packs/Day [...] been in contact with No / Unsure 01/05/2021 9:36 AM CDT someone who was confirmed or suspected to have Coronavirus / COVID-19? documented as of this encounter Plan of Treatment Not on filedocumented as of this encounter Visit Diagnoses Not on filedocumented in this encounter Additional Health Concerns Assessment Noted Time PHQ-9 Depression Total Score: 12 09/17/2018 1:32 PM CD T documented as of this encounter Care Teams Soil Science Teacher Relationship Specialty Start Date End Date Clinic - [facility] PCP - General 09/16/18 [address] [place] [address] Rafaela Higuera PA-C Assigned PCP 12/31/20 01/06/21 [address] [place] [address] documented as of this encounter
--- OUTSIDE RECORDS SUMMARY | 2022-02-09 00:58 | XMS_ITS | Encounter Summary ---
:1975 Author Organization [place] Address [address] [facility] [place] [address] Care Team Providers Name Role Phone [facility] Primary Care Provider Lily Rincon PA-C Unavailable Encounter Details Date Type Department Care Team Description 06/22/2020 Travel Social History Tobacco Use Types Packs/Day [...] been in contact with No / Unsure 06/22/2020 10:21 AM CHIEF SALES OFFICER someone who was confirmed or suspected to have Coronavirus / COVID-19? documented as of this encounter Plan of Treatment Not on filedocumented as of this encounter Visit Diagnoses Not on filedocumented in this encounter Additional Health Concerns Assessment Noted Time PHQ-9 Depression Total Score: 12 09/17/2018 1:32 PM CD T documented as of this encounter Care Teams Adult Family Home Program Manager Relationship Specialty Start Date End Date Clinic - [facility] PCP - General 09/16/18 [address] [place] [address] Lily Rincon PA-C Assigned PCP 12/19/19 08/12/[address] [place] [address] [place] [address] documented as of this encounter
--- OUTSIDE RECORDS SUMMARY | 2022-02-09 00:58 | XMS_ITS | Encounter Summary ---
:1975 Author Organization [place] Address [address] [place] [address] Care Team Providers Name Role Phone [facility] - [facility] Primary Care Provider Lily Rincon PA-C Unavailable Reason for Visit Reason Comments RECHECK Encounter Details Date Type Department Care Team Description 08/09/2020 Office Visit [facility] Asha Urbina lical pain (Primary Dx); Clinic [place] JEREMY Dumont Syncope, unspecified syncope type; [address] [address] Iron deficiency anemia, unspecified iron deficiency anemia type; [place], [place] [address] Cyst of ovary, unspecified laterality [id number] [phone] Social History Tobacco Use Types Packs/Day Years [...] Sign Reading Time Taken Comments Blood Pressure - - Pulse - - Temperature 36.8 ??C (98.3 ??F) 08/09/2020 9:07 AM CDT Respiratory Rate 18 08/09/2020 9:07 AM CDT Oxygen Saturation 98% 08/09/2020 9:07 AM CDT Inhaled Oxygen Concentration - - Weight 78.8 kg (173 lb 12.8 oz) 08/09/2020 9:07 AM CDT Height 163.8 cm (5' 4.5) 08/09/2020 9:07 AM CDT Body Mass Index 29.37 08/09/2020 9:07 AM CDT documented in this encounter Progress Notes Asha Urbina PA-C - 08/09/2020 9:00 AM CDT Assessment & Plan Umbilical pain Pt has had an appendectomy. She had an ovarian cyst rupture shown on CT scan in the ED, discussed this is likely referred pain from that and should gradually improve. She also has a small umbilical hernia present but is reducible. Discussed using heat, tylenol and ibuprofen. - CBC with platelets differential - Comprehensive metabolic panel Syncope, unspecified syncope type Likely due to anemia based on pt reported labs from ED visit and history of heavy periods. Will check metabolic panel to make sure everything is normal. - Comprehensive metabolic panel Iron deficiency anemia, unspecified iron deficiency anemia type See above. Based on results will likely start slow release iron. If not improving, may need iron infusion as has not tolerated regular oral iron in the past. Had ablation to help with heavy periods which did not help, may consider mirena or OCPs to try and decreased the heaviness of her periods. - Transferrin - Ferritin Cyst of ovary, unspecified laterality Shown as ruptured on CT in ED 6 days ago, discussed pain should improve. BMI: Estimated body mass index is 29.37 kg/m?? as calculated from the following: Height as of this encounter: 1.638 m (5' 4.5). Weight as of this encounter: 78.8 kg (173 lb 12.8 oz). Weight management plan: Discussed healthy diet and exercise guidelines Return in about 2 weeks (around 08/23/2020) for Recheck if not improving. Asha Urbina PA-C [facility] Andrea Shah is a 44 year old who presents for the following health issues History of Present Illness She eats 0-1 servings of fruits and vegetables daily.She consumes 0 sweetened beverage(s) daily.She exercises with enough effort to increase her heart rate 10 to 19 minutes per day. She is taking medications regularly. ED/ Followup: Facility: [place] Date of visit: August 03, 6 days ago Reason for visit: blacking out / Intense pain in stomach / sore above the belly button Current Status: still tired, iron has been low Additional complaints: None HPI additional notes: Alyssa presents today with Chief Complaint Patient presents with ??? RECHECK Hemoglobin Date Value Ref Range Status 08/09/2020 10.4 (L) 11.7 - 15.7 g/dL Final 12/17/2019 10.5 (L) 11.7 - 15.7 g/dL Final No records from [facility] in Care Everywhere, they do not connect properly. Feeling weak, stood up after going to the bathroom and fell, feeling lightheaded, was able to get some water. Did an MRI and said had ovarian cyst that ruptured. Has a history of iron deficiency. Feeling really tired. Feels like balance is off. Pain above belly button. Hemoglobin was 8. Period started last Friday, had a little bleeding yesterday. 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 Over the last year has had some weight gain and bloating. Wt Readings from Last 5 Encounters: 08/09/20 78.8 kg (173 lb 12.8 oz) 06/14/20 78.5 kg (173 lb) 12/17/19 73 kg (161 lb) 11/10/19 69.9 kg (154 lb) 01/26/19 70.4 kg (155 lb 4.8 oz) Tried iron supplements in the past and has caused worsening stomach pain. Thinks the slow release iron may have been better. Review of Systems Constitutional, HEENT, cardiovascular, pulmonary, gi and gu systems are negative, except as otherwise noted. Objective Temp 98.3 ??F (36.8 ??C) (Oral) Resp 18 Ht 1.638 m (5' 4.5) Wt 78.8 kg (173 lb 12.8 oz) LMP08/01/2020 SpO2 98% BMI 29.37 kg/m?? Body mass index is 29.37 kg/m??. Physical Exam Physical Exam GENERAL: healthy, alert, in no acute distress EYES: Grossly normal to inspection, EOMI, PERRL HENT: Mucous mebranes moist. NECK: Non-tender, no adenopathy. RESP: lungs clear to auscultation - no rales, no rhonchi, no wheezes CV: regular rate and rhythm, normal S1 S2. No peripheral edema. ABDOMEN: soft, nontender, no hepatosplenomegaly or masses. Normal bowel sounds in all four quadrants. SKIN: no suspicious lesions, no rashes PSYCH: Alert and oriented times 3; Able to articulate logical thoughts. Affect is normal. Results for orders placed or performed in visit on 08/09/20 CBC with platelets differential Status: Abnormal Result Value Ref Range WBC 6.3 4.0 - 11.0 10e9/L RBC Count 4.30 3.8 - 5.2 10e12/L Hemoglobin 10.4 (L) 11.7 - 15.7 g/dL Hematocrit 33.8 (L) 35.0 - 47.0 % MCV 79 78 - 100 fl MCH 24.2 (L) 26.5 - 33.0 pg MCHC 30.8 (L) 31.5 - 36.5 g/dL RDW 15.4 (H) 10.0 - 15.0 % Platelet Count 387 150 - 450 10e9/L % Neutrophils 64.9 % % Lymphocytes 27.1 % % Monocytes 6.4 % % Eosinophils 1.1 % % Basophils 0.5 % Absolute Neutrophil 4.1 1.6 - 8.3 10e9/L Absolute Lymphocytes 1.7 0.8 - 5.3 10e9/L Absolute Monocytes 0.4 0.0 - 1.3 10e9/L Absolute Eosinophils 0.1 0.0 - 0.7 10e9/L Absolute Basophils 0.0 0.0 - 0.2 10e9/L Diff Method Automated Method documented in this encounter Miscellaneous Notes Result Encounter Note - Asha Urbina PA-C - 08/09/2020 9:00 AM CDT Juan Mcadams, I just wanted to let you know that your lab results have been reviewed and are attached. - Your hemoglobin and iron are low which is likely the cause of your dizziness. - Your Blood Count Results show normal White Blood Cell count (no sign of infection), LOW Hemoglobin(anemia), and normal Platelets (affects clotting). - Your iron levels are low. I would like you to start an iron supplement [facility] We should recheck your labs in 2 months. and - This should be taken with water or juice catalina empty stomach; may be administered with food to prevent irritation; however, not with cereals, dietary fiber, tea, coffee, eggs, or milk as they may decrease absorption. Taking daily vitamin C will also help increase absorption. It can also cause constipation and make your stools appear dark in color. Please let me know if you have any questions and have a great week! Sincerely, Elisha Urbina PA-C [facility] [address] [id number] Clinic Result Encounter Note - Asha Urbina PA-C - 08/09/2020 9:00 AM CDT Juan Mcadams, I just wanted to let you know that your lab results have been reviewed and are attached. I forgot to mention that the iron I sent over is slow release and usually causes less stomach problems but if you can't tolerate it, let me know. Please let me know if you have any questions and have a great week! Sincerely, JEREMY [facility] [address] [place] [address] Clinic Addendum Note - Asha Urbina PA-C - 08/09/2020 9:00 AM CDT Addended by: ASHA URBINA on: 08/10/2020 11:34 AM Modules accepted: Orders Addendum Note - Asha Urbina PA-C - 08/09/2020 9:00 AM CDT Addended by: ASHA URBINA on: 08/10/2020 11:36 AM Modules accepted: Orders documented in this encounter Plan of Treatment Not on filedocumented as of this encounter Procedures Procedure Name Priority Date/Time Associated Comments Diagnosis CBC WITH PLATELETS & STAT 08/09/2020 9:32 AM Umbilical pain Results for this DIFFERENTIAL CDT procedure are i n the results section. TRANSFERRIN Routine 08/09/2020 9:32 AM Iron deficiency Result s for this CDT anemia, unspecified procedur e are in iron deficiency the results anemia type section. FERRITIN Routine 08/09/2020 9:32 AM Iron deficiency Result s for this CDT anemia, unspecified procedur e are in iron deficiency the results anemia type section. COMPREHENSIVE Routine 08/09/2020 9:32 AM Umbilical corina n Results for this METABOLIC PANEL CDT Syncope, procedure ar e in unspecified syncope the resu lts type section. documented in this encounter Results (ABNORMAL) Ferritin (08/09/2020 9:32 AM CDT) P athologist Signature Ferritin 6 (L) 8 - 252 08/09/2020 [facility] ng/mL 4:26 PM CDT [facility] Specimen Anatomical Collection Method Collection Time Receive d Time (Source) Location / / Volume Laterality Blood 08/09/2020 9:32 AM 9:33 CDT AM CDT Asha Urbina PA-C LAB - BLOOD ORDERABLE S Performing Organization Address City/State/ZIP Code Phon e Number [facility] [address] [place] [address] Transferrin (08/09/2020 9:32 AM CDT) athologist Signature Transferrin 347 210 - 360 08/09/2020 [facility] mg/dL 6:21 PM CDT [facility] Specimen Anatomical Collection Method Collection Time Receive d Time (Source) Location / / Volume Laterality Blood 08/09/2020 9:32 AM 9:33 CDT AM CDT Asha Urbina PA-C LAB - BLOOD ORDERABLE S Performing Organization Address City/State/ZIP Code Phon e Number [facility] [address] [place] [address] [facility] (ABNORMAL) Comprehensive metabolic panel (08/09/2020 9:32 AM CDT) athologist Signature Sodium 137 133 - 144 08/09/2020 [place] mmol/L 12:49 PM [facility] Potassium 4.0 3.4 - 5.3 08/09/2020 [place] mmol/L 12:49 PM [facility] Chloride 107 94 - 109 08/09/2020 [place] mmol/L 12:49 PM [facility] Carbon Dioxide 27 20 - 32 08/09/2020 [place] mmol/L 1:06 PM [facility] Anion Gap 3 3 - 14 08/09/2020 [place] mmol/L 1:06 PM [facility] Glucose 104 (H) 70 - 99 08/09/2020 [place] mg/dL 1:06 PM [facility] Urea Nitrogen 10 7 - 30 08/09/2020 [place] mg/dL 1:06 PM [facility] Creatinine 0.70 0.52 - 08/09/2020 [facility] 1.04 mg/dL 1:06 PM [facility] GFR Estimate >90 >60 08/09/2020 [place] mL/min/{1. 1:06 PM [facility] 73_m2} [facility] Comment: Non GFR Calc Starting 04/21/2018, serum creatinine ba sed estimated GFR (eGFR) will be calculated using the Chronic Kidney Dise ase Epidemiology Collaboration (CKD-EPI) equation. GFR Estimate If >90 >60 mL/min/{1.73_m2} 08/09/2020 1: 06 PM [facility] Comment: GFR Calc Starting 04/21/2018, serum creatinine ba sed estimated GFR (eGFR) will be calculated using the Chronic Kidney Dise ase Epidemiology Collaboration (CKD-EPI) equation. Calcium 8.9 8.5 - 10.1 mg/dL 08/09/2020 1:06 PM [facility] Bilirubin Total 0.9 0.2 - 1.3 mg/dL 08/09/2020 1:08 PM [facility] Albumin 3.7 3.4 - 5.0 g/dL 08/09/2020 1:[address] [facility] Protein Total 8.2 6.8 - 8.8 g/dL 08/09/2020 1:08 PM [facility] Alkaline Phosphatase 71 40 - 150 U/L 08/09/2020 1:08 PM [facility] ALT 49 0 - 50 U/L 08/09/2020 1:08 PM [facility] AST 40 0 - 45 U/L 08/09/2020 1:08 PM [facility] Specimen Anatomical Collection Method Collection Time Receive d Time (Source) Location / / Volume Laterality Blood 08/09/2020 9:32 AM 9:33 CDT AM CDT Asha Urbina PA-C LAB - BLOOD ORDERABLE S Performing Organization Address City/State/ZIP Code Phon e Number [place] [address] [address] [place], [place] [address] [place] [address] [phone] (ABNORMAL) CBC with platelets differential (08/09/2020 9:32 AM CDT) athologist Signature WBC 6.3 4.0 - 11.0 08/09/2020 [place] 10e9/L 9:44 AM CDT [facility] RBC Count 4.30 3.8 - 5.2 08/09/2020 [place] 10e12/L 9:44 AM CDT [facility] Hemoglobin 10.4 (L) 11.7 - 15.7 08/09/2020 [place] g/dL 9:44 AM CDT [facility] Hematocrit 33.8 (L) 35.0 - 47.0 08/09/2020 [place] % 9:44 AM CDT [facility] MCV 79 78 - 100 fl 08/09/2020 [place] 9:44 AM CDT [facility] MCH 24.2 (L) 26.5 - 33.0 08/09/2020 [place] pg 9:44 AM CDT [facility] MCHC 30.8 (L) 31.5 - 36.5 08/09/2020 [place] g/dL 9:44 AM CDT [facility] Comment: Results confirmed by repeat sean t RDW 15.4 (H) 10.0 - 15.0 08/09/2020 9:44 [place] CLI NICS % AM CDT [place] Platelet Count 387 150 - 450 08/09/2020 9:44 [place] [facility] 10e9/L AM CDT [place] % Neutrophils 64.9 % 08/09/2020 9:45 [place] C LINICS AM T [place] % Lymphocytes 27.1 % 08/09/2020 9:45 [place] C LINICS AM CDT [place] % Monocytes 6.4 % 08/09/2020 9:45 [place] CLI NICS AM T [place] % Eosinophils 1.1 % 08/09/2020 9:45 [place] C LINICS AM CDT [place] % Basophils 0.5 % 08/09/2020 9:45 [place] [facility] NICS AM CDT [place] Absolute Neutrophil 4.1 1.6 - 8.3 08/09/2020 9:45 [facility] 10e9/L AM CDT [place] Absolute 1.7 0.8 - 5.3 08/09/2020 9:45 [place] [facility]I CS Lymphocytes 10e9/L AM CDT [place] Absolute Monocytes 0.4 0.0 - 1.3 08/09/2020 9:45 [facility] CLINICS 10e9/L AM CDT [place] Absolute 0.1 0.0 - 0.7 08/09/2020 9:45 [place] [facility] CS Eosinophils 10e9/L AM CDT [place] Absolute Basophils 0.0 0.0 - 0.2 08/09/2020 9:45 [facility] 10e9/L AM CDT [place] Diff Method Automated Method 08/09/2020 9:45 [facility] AM CDT [place] Specimen Anatomical Collection Method Collection Time Receive d Time (Source) Location / / Volume Laterality Blood 08/09/2020 9:32 AM 9:33 CDT AM CDT Asha Urbina PA-C LAB - BLOOD ORDERABLE S Performing Organization Address City/State/ZIP Code Phon e Number [facility] [address] [place] [address] documented in this encounter Visit Diagnoses Diagnosis Umbilical pain - Primary Abdominal pain, unspecified site Syncope, unspecified syncope type Iron deficiency anemia, unspecified iron deficiency anemia type Cyst of ovary, unspecified laterality documented in this encounter Additional Health Concerns Assessment Noted Time PHQ-9 Depression Total Score: 12 09/17/2018 1:32 PM CD T documented as of this encounter Care Teams Over Short And Damage Clerk Relationship Specialty Start Date End Date Clinic - [facility] PCP - General 09/16/18 [address] [place] [address] Lily Rincon PA-C Assigned PCP 12/19/19 08/12/[address] [place] [address] [place] BO[place] [address] documented as of this encounter
--- OUTSIDE RECORDS SUMMARY | 2022-02-09 00:58 | XMS_ITS | Encounter Summary ---
:1975 Author Organization [place] Address [address] [facility] [place] [address] Care Team Providers Name Role Phone [facility] - [facility] Primary Care Provider Asha Urbina PA-C Unavailable [phone] Encounter Details Date Type Department Care Team Description 09/14/2020 Travel Social History Tobacco Use Types Packs/Day [...] been in contact with No / Unsure 09/14/2020 6:03 PM CDT someone who was confirmed or suspected to have Coronavirus / COVID-19? documented as of this encounter Plan of Treatment Not on filedocumented as of this encounter Visit Diagnoses Not on filedocumented in this encounter Additional Health Concerns Assessment Noted Time PHQ-9 Depression Total Score: 12 09/17/2018 1:32 PM CD T documented as of this encounter Care Teams Glass Mold Repairer Relationship Specialty Start Date End Date Clinic - [facility] PCP - General 09/16/18 [address] [place] [address] Asha Urbina PA-C Assigned PCP 08/13/20 09/27/20 [address] [place] [address] documented as of this encounter
--- OUTSIDE RECORDS SUMMARY | 2022-02-09 00:58 | XMS_ITS | Encounter Summary ---
:1975 Author Organization [place] Address [address] [facility] [place] [address] Care Team Providers Name Role Phone Clinic - [facility] Primary Care Provider Rafaela Higuera PA-C Unavailable [phone] Reason for Visit Reason Comments Consult Hernia Encounter Details Date Type Department Care Team Description 01/05/2021 Office Visit [facility] Luis E Mtz F, Umbi lical hernia Surgery Clinic without obstruction [place] [address] and without gangrene [address] [place] [address] [phone] Social History Tobacco Use Types Packs/Day Years Used Date Never Smoker Smokeless Tobacco: Never Used Tobacco Cessation: Counseling Given: Yes Alcohol Use Standard Drinks/Week Comments Yes 0 [...] Sign Reading Time Taken Comments Blood Pressure 118/78 01/05/2021 9:39 AM CDT Pulse 77 01/05/2021 9:39 AM CDT Temperature - - Respiratory Rate 16 01/05/2021 9:39 AM CDT Oxygen Saturation 100% 01/05/2021 9:39 AM CDT Inhaled Oxygen Concentration - - Weight 78.5 kg (173 lb) 01/05/2021 9:39 AM CDT Height 162.6 cm (5' 4) 01/05/2021 9:39 AM CDT Body Mass Index 29.7 01/05/2021 9:39 AM CDT documented in this encounter Progress Notes Luis E Mtz MD - 01/05/2021 9:30 AM CDT HPI: Alyssa is a 45 year old female who presents for evaluation of periumbilical bulging, pain and bloating. The patient's primary complaint is bloating. She does notice a bit of a bulge by her umbilicus which sometimes causes some mild discomfort. Mostly, she notices some diffuse discomfort in the central abdomen when she bumps the area. The patient had a CT scan done in August which showed a small hernia and also a small nodule just above that. This is close to the area where she had some fat grafting tissue taken by a plastic surgeon. Past Medical History: has a past medical history of Abnormal Pap smear (8 yrs ago, 09/2010), Anemia, Menorrhagia, premenopausal (2010), and Streptococcal sore throat. Past Surgical History: Past Surgical History: Procedure Laterality Date ??? APPENDECTOMY ??? COLPOSCOPY CERVIX, LOOP ELECTRODE BIOPSY, COMBINED years ago, 8 years ago LEEP Social History: Social History Socioeconomic History ??? Marital status: Single Spouse name: Not on file ??? Number of children: Not on file ??? Years of education: Not on file ??? Highest education level: Not on file Occupational History ??? Not on file Tobacco Use ??? Smoking status: Never Smoker ??? Smokeless tobacco: Never Used Substance and Sexual Activity ??? Alcohol use: Yes Comment: rare ??? Drug use: No ??? Sexual activity: Yes Partners: Male Comment: using nothing for contraception Other Topics Concern ??? Parent/sibling w/ CABG, MD or angioplasty before 65F 55M? No Social History Narrative ??? Not on file Social Determinants of Health Financial Resource Strain: ??? Difficulty of Paying Living Expenses: Food Insecurity: ??? Worried About Running Out of Food in the Last Year: ??? Ran Out of Food in the Last Year: Transportation Needs: ??? Lack of Transportation (Medical): ??? Lack of Transportation (Non-Medical): Physical Activity: ??? Days of Exercise per Week: ??? Minutes of Exercise per Session: Stress: ??? Feeling of Stress : Social Connections: ??? Frequency of Communication with Friends and Family: ??? Frequency of Social Gatherings with Friends and Family: ??? Attends Voodoo Services: ??? Active Member of Clubs or Organizations: ??? Attends Club or Organization Meetings: ??? Marital Status: Intimate Partner Violence: ??? Fear of Current or Ex-Partner: ??? Emotionally Abused: ??? Physically Abused: ??? Sexually Abused: Family History: Family History Problem Relation Age of Onset ??? Family History Negative Mother ??? Family History Negative Father ??? Family History Negative Sister 2 ??? Hypertension Daughter ??? Breast Cancer No family hx of ??? Cancer - colorectal No family hx of ROS: The 10 point review of systems is negative other than noted in the HPI and above. PE: General- Well-developed, well-nourished, patient able to get up on table without difficulty. HEENT- Normocephalic and atraumatic. Pupils equal and round. Mucous membranes moist. Sclera are nonicteric. Neck- No lymphadenopathy or masses Respirations- are regular and non labored Abdomen is abdomen is soft without significant tenderness, masses, organomegaly or guarding Hernia-there is a periumbilical bulge which is reducible. This is consistent with an umbilical hernia, though it may have an incisional component. Just above this, is an area of slight prominence whichcould be the nodule seen on CT scan in August. It could also conceivably represent a small incisionalhernia. Assessment/Plan: Umbilical hernia, possible incisional hernia. We discussed hernia repair with mesh,along with its risks and complications, in detail. The patient does have a significant diastasis, and she has considered having that repaired. She is thinking about talking to a plastic surgeon about an abdominal plasty, which could conceivably also involve repairing her hernia. At this point, she is thinking she will discuss that with the plastic surgeon and see if those 2 procedures could be combined reasonably. If she would like to schedule repair of her hernia, which would also involve evaluating the area just above it, I be happy to do that for her. She may simply call us to schedule that. Total of 30 minutes was spent today in chart review, patient examination and discussion, and documentation. Luis E Mtz MD Please route or send letter to: Referring Provider documented in this encounter Plan of Treatment Not on filedocumented as of this encounter Visit Diagnoses Diagnosis Umbilical hernia without obstruction and without gangrene - Primary documented in this encounter Additional Health Concerns Assessment Noted Time PHQ-9 Depression Total Score: 12 09/17/2018 1:32 PM CD T documented as of this encounter Care Teams Phd Intern Relationship Specialty Start Date End Date Clinic - [facility] PCP - General 09/16/18 [address] [place] [address] Rafaela Higuera PA-C Assigned PCP 12/31/20 01/06/21 [address] [place] [address] documented as of this encounter
--- OUTSIDE RECORDS SUMMARY | 2022-02-09 00:58 | XMS_ITS | Encounter Summary ---
:1975 Author Organization [place] Address [address] [facility] [place] [address] Care Team Providers Name Role Phone [facility] - [facility] Primary Care Provider Lily Rincon PA-C Unavailable Encounter Details Date Type Department Care Team Description 08/11/2020 Travel Social History Tobacco Use Types Packs/Day [...] documented as of this encounter Care Teams Gate Cutter Relationship Specialty Start Date End Date Clinic - [facility] PCP - General 09/16/18 [address] [place] [address] Lily Rincon PA-C Assigned PCP 12/19/19 08/12/[address] [place] [address] [place] [address] documented as of this encounter
--- OUTSIDE RECORDS SUMMARY | 2022-02-09 00:58 | XMS_ITS | Encounter Summary ---
:1975 Author Organization [place] Address [address] [place] [address] Care Team Providers Name Role Phone Clinic - [facility] Primary Care Provider Asha Urbina PA-C Unavailable [phone] Encounter Details Date Type Department Care Team Description 09/21/2020 [facility] Facundo Palacios Vaccination [address] [address] [place] [address] [phone] Social History Tobacco Use Types Packs/Day Years [...] documented as of this encounter Care Teams Meat Loiner Relationship Specialty Start Date End Date Clinic - [facility] PCP - General 09/16/18 [id number] [place] [address] Asha Urbina PA-C Assigned PCP 08/13/20 09/27/20 [id number] [place] [address] documented as of this encounter
--- OUTSIDE RECORDS SUMMARY | 2022-02-09 00:58 | XMS_ITS | Encounter Summary ---
:1975 Author Organization [place] Address [address] [facility] [place] [address] Care Team Providers Name Role Phone [facility] Primary Care Provider Ingrid Gillespie CHANNEL REBUILDER Unavailable Luis E Mtz MD Unavailable Encounter Details Date Type Department Care Team Description 10/30/2021 Travel Social History Tobacco Use Types Packs/Day [...] Exposure Response Date Recorded In the last 10 days, have you been in contact with No / Unsu re 10/30/2021 10:35 PM CDT someone who was confirmed or suspected to have Coronavirus/COVID-19? documented as of this encounter Plan of Treatment Not on filedocumented as of this encounter Visit Diagnoses Not on filedocumented in this encounter Additional Health Concerns Assessment Noted Time PHQ-9 Depression Total Score: 12 09/17/2018 1:32 PM CD T documented as of this encounter Care Teams Plasma Center Technician Relationship Specialty Start Date End Date Clinic - [facility] PCP - General 09/16/18 [facility] [address] [place] [address] Ingrid Gillespie, LYUDMILA Assigned PCP 01/28/21 [address] [place], [place] [id number] Luis E Mtz MD Assigned Surgical Provider 01/14/21 Alivia E [facility] [address] [place], [place] [id number] documented as of this encounter
--- OUTSIDE RECORDS SUMMARY | 2022-02-09 00:58 | XMS_ITS | Encounter Summary ---
:1975 Author Organization [facility] Address [address] [place] [address] Care Team Providers Name Role Phone Clinic - [facility] Primary Care Provider Ingrid Gillespie SALES REPRESENTATIVE PUBLICATIONS Unavailable Luis E Mtz MD Unavailable Reason for Visit Reason Comments Abdominal Pain Encounter Details Date Type Department Care Team Description 02/07/2021 [facility] Hernandez Schultz, dominal pain, left [facility] lower quadrant [address] [facility] [place], [place] [phone] [id number] [phone] [address] [place] [address] (Wo rk) Social History Tobacco Use Types [...] Sign Reading Time Taken Comments Blood Pressure 142/88 02/07/2021 9:50 PM CDT Pulse 70 02/07/2021 6:30 PM CDT Temperature 36.7 ??C (98 ??F) 02/07/2021 5:48 PM CDT Respiratory Rate 18 02/07/2021 3:53 PM CDT Oxygen Saturation 98% 02/07/2021 7:40 PM CDT Inhaled Oxygen Concentration - - Weight - - Height - - Body Mass Index - - documented in this encounter Discharge Instructions Discharge InstructionsHernandez Schultz MD - 02/07/2021 9:51 PM CDT Please monitor symptoms closely You may use tylenol / ibuprofen for pain Try bentyl as discussed Follow-up with your primary care provider in 2 days for re-check. Return to the ER in the meantime with worsening pain, vomiting, bloody stool, or any other concerns. Discharge Instructions Abdominal Pain Abdominal pain (belly pain) can be caused by many things. Your evaluation today does not show the exact cause for your pain. Your provider today has decided that it is unlikely your pain is due to a life threatening problem, or a problem requiring surgery or hospital admission. Sometimes those problems cannot be found right away, so it is very important that you follow up as directed. Sometimes only the changes which occur over time allow the cause of your pain to be found. Generally, every Emergency Department visit should have a follow-up clinic visit with either a primary or a specialty clinic/provider. Please follow-up as instructed by your emergency provider today. With abdominal pain, we often recommend very close follow-up, such as the following day. ADULTS: Return to the Emergency Department right away if: You get an oral temperature above 102oF or as directed by your provider. You have blood in your stools. This may be bright red or appear as black, tarry stools. You keep vomiting (throwing up) or cannot drink liquids. You see blood when you vomit. You cannot have a bowel movement or you cannot pass gas. Your stomach gets bloated or bigger. Your skin or the whites of your eyes look yellow. You faint. You have bloody, frequent or painful urination (peeing). You have new symptoms or anything that worries you. CHILDREN: Return to the Emergency Department right away if your child has any of the above-listed symptoms or the following: Pushes your hand away or screams/cries when his/her belly is touched. You notice your child is very fussy or weak. Your child is very tired and is too tired to eat or drink. Your child is dehydrated. Signs of dehydration can be: Significant change in the amount of wet diapers/urine. Your or child starts to have dry mouth and lips, or no saliva (spit) or tears. WOMEN: Return to the Emergency Department right away if you have any of the above-listed symptoms or the following: You have bleeding, leaking fluid or passing tissue from the vagina. You have worse pain or cramping, or pain in your shoulder or back. You have vomiting that will not stop. You have a temperature of 100oF or more. Your baby is not moving as much as usual. You faint. You get a bad headache with or without eye problems and abdominal pain. You have a seizure. You have unusual discharge from your vagina and abdominal pain. Abdominal pain is pretty common during . Your pain may or may not be related to your . You should follow-up closely with your OB provider so they can evaluate you and your baby. Untilyou follow-up with your regular provider, do the following: Avoid sex and do not put anything in your vagina. Drink clear fluids. Only take medications approved by your provider. MORE INFORMATION: Appendicitis: A possible cause of abdominal pain in any person who still has their appendix is acuteappendicitis. Appendicitis is often hard to diagnose. Testing does not always rule out early appendicitis or other causes of abdominal pain. Close follow-up with your provider and re-evaluations may beneeded to figure out the reason for your abdominal pain. Follow-up: It is very important that you make an appointment with your clinic and go to the appointment. If you do not follow-up with your primary provider, it may result in missing an important development which could result in permanent injury or disability and/or lasting pain. If there is any problem keeping your appointment, call your provider or return to the Emergency Department. Medications: Take your medications as directed by your provider today. Before using ddzr-ver-jrirgpibcjaeejpshg, ask your provider and make sure to take the medications as directed. If you have any questions about medications, ask your provider. Diet: Resume your normal diet as much as possible, but do not eat fried, fatty or spicy foods while you have pain. Do not drink alcohol or have caffeine. Do not smoke tobacco. Probiotics: If you have been given an antibiotic, you may want to also take a probiotic pill or eat yogurt with live cultures. Probiotics have good bacteria to help your intestines stay healthy. Studies have shown that probiotics help prevent diarrhea (loose stools) and other intestine problems (including C. diff infection) when you take antibiotics. You can buy these without a prescription in the pharmacy section of the store. If you were given a prescription for medicine here today, be sure to read all of the information (including the package insert) that comes with your prescription. This will include important information about the medicine, its side effects, and any warnings that you need to know about. The pharmacist who fills the prescription can provide more information and answer questions you may have about the medicine. If you have questions or concerns that the pharmacist cannot address, please call or return to the Emergency Department. Remember that you can always come back to the Emergency Department if you are not able to see your regular provider in the amount of time listed above, if you get any new symptoms, or if there is anything that worries you. documented in this encounter Medications at Time of Discharge Medication Sig Dispensed Refills Start Date End Date buPROPion (WELLBUTRIN XL) Take 1 tablet (300 90 tablet 3 300 MG 24 hr mg) by mouth every tabletIndications: morning Fatigue, unspecified type, Depression, unspecified depression type, Anxiety dicyclomine (BENTYL) 20 Take 1 tablet (20 10 tablet 0 02/0702/12/2021 MG tablet mg) by mouth 2 times daily for 5 days documented as of this encounter ED Notes Cain Cox RN - 02/07/2021 3:52 PM CDT Abdominal pain, diarrhea. Pain started on the left side and now radiates across stomach. Nausea. SOBr/t pain Hernandez Schultz MD - 02/07/2021 3:49 PM CDT History Chief Complaint: Abdominal Pain HPI Alyssa Aguillon is a 45 year old female who presents with a sudden left abdominal pain that started at 3:45p today. Earlier today, the patient awoke noting nausea, abdominal discomfort and diarrhea. Pain improved though as patient was at work, the pain came back and was more severe. Pain was in the L LQ, though did radiate towards the right as well. The pain was intense that it made her cry. It worsens while walking but gets better when she lays down. Along with this she has been feeling nauseous. She had serenity these symptoms before about a year ago, though it subsided on it's own. She took an Advil today for the pain. Review of Systems Gastrointestinal: Positive for abdominal pain, diarrhea and nausea. All other systems reviewed and are negative. Allergies: Compazine [Prochlorperazine] Tamiflu [Oseltamivir] Medications: Wellbutrin Past Medical History: Anemia Menorrhagia Dysphonia Panic attacks Ovarian cysts Past Surgical History: Appendectomy Colposcopy Social History: The patient presents alone. Physical Exam Patient Vitals for the past 24 hrs: BP Temp Temp src Pulse Resp SpO2 02/07/21 1915 129/80 -- -- -- -- 97 % 02/07/21 1900 134/82 -- -- -- -- -- 02/07/21 1830 (!) 146/89 -- -- 70 -- 100 % 02/07/21 1800 130/87 -- -- 72 -- 99 % 02/07/21 1748 -- 98 ??F (36.7 ??C) Oral -- -- -- 02/07/21 1553 (!) 154/90 -- -- 85 18 100 % 02/07/21 1551 -- (!) 95.2 ??F (35.1 ??C) Temporal -- -- -- Physical Exam General: Well-nourished Speaking in full sentences Eyes: Conjunctiva without injection or scleral icterus ENT: Moist mucous membranes Nares patent Pinnae normal Neck: Full ROM No stiffness appreciated Resp: Lungs CTAB No crackles, wheezing or audible rubs Good air movement CV: Normal rate, regular rhythm S1 and S2 present No murmur, gallop or rub GI: BS present Abdomen soft without distention Tenderness to palpation to LLQ No focal RLQ pain No guarding or rebound tenderness Skin: Warm, dry, well perfused No rashes or open wounds on exposed skin MSK: Moves all extremities No focal deformities or swelling Neuro: Alert Answers questions appropriately Moves all extremities equally Gait stable Psych: Normal affect, normal mood Emergency Department Course Imaging: CT Abdomen Pelvis w Contrast: 1. ??No CT evidence for diverticulitis. No urinary calculi or hydronephrosis. 2. ??Small fat-containing periumbilical hernia. The small subcutaneous cyst seen cephalad to the umbilicus on the prior exam is no longer present. 3. ??Previous appendectomy. 4. ??Retroverted uterus. US Pelvis Cmplt w Transvag and Doppler LmtPel Duplex Limited: 1. ??Trace nonspecific free fluid otherwise normal. Reading per radiology. Laboratory: CBC: WBC 9.5, HGB 11.0 (L), PLT 337 BMP: Glucose: 111 (H) o/w WNL (Creatinine 0.62) Hepatic panel: AST: 47 (H) Lipase: 142 HCG qualitative blood: neg UA with microscopic: Blood: large (A), bacteria: few (A), RBC: 69 (H), Squamous epithelial's: 2 (H) o/w WNL Emergency Department Course: Reviewed: I reviewed nursing notes, vitals, past medical history and care everywhere Assessments: 1716 I obtained history and examined the patient as noted above. 1917 I rechecked the patient and explained findings. 2143 I repeated the patient's abdominal exam. Interventions: 1740 NaCl Bolus 1,000 mL IV 174 Zofran 4 mg IV 1907 Toradol 15 mg IV Disposition: The patient was discharged to home. Impression & Plan Medical Decision Making: Alyssa Aguillon is a very pleasant 45-year-old female presenting to the emergency department for evaluation of abdominal pain. VS on presentation reveal elevated BP though otherwise are unremarkable. History, exam, and ED course as outlined above. A broad differential was considered, including though was not limited to, ovarian cyst, ovarian torsion, TOA, ectopic , diverticulitis, ureteral colic, colitis, gastroenteritis, zoster, among others. Work-up as outlined above included advanced imaging and laboratory studies. Precise etiology for patient's pain not entirely clear at this time. Possibly this could be related to cramping in the setting of gastrointestinal illness given her associated nausea, and loose stools earlier today. Given the location of her pain as well as acute worsening earlier this afternoon, pelvic ultrasound performed. No evidence of ovarian cyst, or impaired blood flow was noted. In the absence of cyst, mass, or other lead point, I feel ovarian torsion to be very unlikely. test is negative arguing against ectopic . Reassessment, patient did worsen for which we elected to proceed with CT imaging of the abdomen/pelvis. No evidence of diverticulitis, urinary calculi, or obstruction. She does have an incidentally noted small fat-containing periumbi lical hernia, which I do not feel is contributing to the patient's symptoms, and no evidence of incarceration or obstruction. Patient is s/p appendectomy. We discussed her laboratory studies revealing trivially elevated AST at 47, though unremarkable metabolic function and CBC (stable anemia). UA demonstrates hematuria, though patient currently on menses, likely accounting for this. Results and clinical impression discussed with patient and mother present at bedside. Repeat abdominal exam soft without peritoneal findings. Discussed results of above studies and above differential. Given reassuring exam and above work-up, with reasonable clinical certainty I feel she is appropriatefor discharge and close outpatient monitoring/follow-up. We discussed supportive cares including anti-inflammatory medications as well as a trial of Bentyl. She does note intermittent abdominal bloating. She is to follow-up with primary care provider in 2 to 3 days for recheck or return to ER if she develops severe pain, vomiting, bloody stool, or any other concerns. All questions answered prior to discharge. Diagnosis: ICD-10-CM 1. Abdominal pain, left lower quadrant R10.32 Discharge Medications: New Prescriptions DICYCLOMINE (BENTYL) 20 MG TABLET Take 1 tablet (20 mg) by mouth 2 times daily for 5 days Scribe Disclosure: Hermann Cha Carrington, am serving as a scribe at 5:23 PM on 02/07/2021 to document services personally performed by Hernandez Schultz MD based on my observations and the provider's statements to me. Hernandez Schultz MD 02/08/21 1342 documented in this encounter Plan of Treatment Not on filedocumented as of this encounter Procedures Procedure Name Priority Date/Time Associated Comments Diagnosis CT ABDOMEN PELVIS W STAT 02/07/2021 8:31 PM Re sults for this CONTRAST CDT procedure are i n the results section. US PELVIS COMPLETE W STAT 02/07/2021 6:58 PM R esults for this TRANSVAGINAL AND CDT procedure a re in DOPPLER LIMITED the results section. ROUTINE UA WITH STAT 02/07/2021 6:29 PM Result s for this MICROSCOPIC REFLEX TO CDT proced ure are in CULTURE the results section. HCG QUALITATIVE STAT 02/07/2021 5:27 PM Result s for this CDT procedure are i n the results section. CBC WITH PLATELETS STAT 02/07/2021 3:54 PM Res ults for this AND DIFFERENTIAL CDT procedure a re in the results section. CBC WITH PLATELETS & STAT 02/07/2021 3:54 PM R esults for this DIFFERENTIAL CDT procedure are i n the results section. LIPASE STAT 02/07/2021 3:54 PM Results f or this CDT procedure are i n the results section. HEPATIC FUNCTION STAT 02/07/2021 3:54 PM Resul ts for this PANEL CDT procedure are i n the results section. BASIC METABOLIC PANEL STAT 02/07/2021 3:54 PM Results for this CDT procedure are i n the results section. documented in this encounter Results CT Abdomen Pelvis w Contrast (02/07/2021 8:31 PM CDT) Anatomical Region Laterality Modality Abdomen/Pelvis, SUBRAD CT BODY, UMP CT ABDOMEN PELVIS, Computed Tomography RAD CT Specimen (Source) Anatomical Collection Method Collection Time Re ceived Time Location / / Volume Laterality 02/07/2021 8:18 PM CDT Impressions 02/07/2021 8:58 PM CDT IMPRESSION: 1. ??No CT evidence for diverticulitis. No urinary calculi or hydronephrosis. 2. ??Small fat-containing periumbilical hernia. The small subcutaneous cyst seen cephalad to the umbilicus on the prior exam is no longer present. 3. ??Previous appendectomy. 4. ??Retroverted uterus. Narrative 02/07/2021 8:58 PM CDT EXAM: CT ABDOMEN PELVIS W CONTRAST LOCATION: [facility] DATE/TIME: 02/07/2021 8:18 PM INDICATION: Left flank pain. COMPARISON: 08/11/2020. TECHNIQUE: CT scan of the abdomen and pe lvis was performed following injection of IV contrast. Multiplanar reformats were obtained. Dose reduction techniques were used. CONTRAST: 86 mL Isovue-370. FINDINGS: LOWER CHEST: Normal. HEPATOBILIARY: Fatty liver. PANCREAS: Normal. SPLEEN: Normal. ADRENAL GLANDS: Normal. KIDNEYS/BLADDER: Normal. BOWEL: Previous appendectomy. LYMPH NODES: Normal. VASCULATURE: Unremarkable. PELVIC ORGANS: Retroverted uterus. MUSCULOSKELETAL: Small fat-containing pe riumbilical hernia. Procedure Note Abraham Monroe MD - 02/07/2021Formattin g of this note might be different from the original. EXAM: CT ABDOMEN PELVIS W CONTRAST LOCATION: [facility] DATE/TIME: 02/07/2021 8:18 PM INDICATION: Left flank pain. COMPARISON: 08/11/2020. TECHNIQUE: CT scan of the abdomen and pe lvis was performed following injection of IV contrast. Multiplanar reformats were obtained. Dose reduction techniques were used. CONTRAST: 86 mL Isovue-370. FINDINGS: LOWER CHEST: Normal. HEPATOBILIARY: Fatty liver. PANCREAS: Normal. SPLEEN: Normal. ADRENAL GLANDS: Normal. KIDNEYS/BLADDER: Normal. BOWEL: Previous appendectomy. LYMPH NODES: Normal. VASCULATURE: Unremarkable. PELVIC ORGANS: Retroverted uterus. MUSCULOSKELETAL: Small fat-containing pe riumbilical hernia. IMPRESSION: 1. No CT evidence for diverticulitis. No urinary calculi or hydronephrosis. 2. Small fat-containing periumbilical he rnia. The small subcutaneous cyst seen cephalad to the umbilicus on the prior exam is no longer present. 3. Previous appendectomy. 4. Retroverted uterus. Hernandez Schultz MD IMG CT ORDERABLES US Pelvis Cmplt w Transvag & Doppler LmtPel Duplex Limited (02/07/2021 6:58 PM CDT) Anatomical Region Laterality Modality Abdomen/Pelvis Ultrasound Specimen (Source) Anatomical Collection Method Collection Time Re ceived Time Location / / Volume Laterality 02/07/2021 6:35 PM CDT Impressions 02/07/2021 7:02 PM CDT IMPRESSION: ?? 1. ??Trace nonspecific free fluid otherw ise normal. Narrative 02/07/2021 7:02 PM CDT EXAM: US PELVIS COMPLETE W TRANSVAGINAL AND DOPPLER LIMITED LOCATION: [facility] DATE/TIME: 02/07/2021 6:35 PM INDICATION: Acute onset LLQ pain COMPARISON: CT 08/11/2020 TECHNIQUE: Transabdominal scans were per formed. Endovaginal ultrasound was performed to better visualize the adnexa. Color flow with spectral Doppler and waveform analysis performed. FINDINGS: UTERUS: 8.8 x 5.9 x 7.3 cm. Normal in si ze and position with no masses. ENDOMETRIUM: 8 mm. Normal smooth endomet rium. RIGHT OVARY: 2.2 x 2.8 x 1.5 cm. Normal with arterial and color duplex flow identified. LEFT OVARY: 1.5 x 1.7 x 1.7 cm. Normal w ith arterial and color duplex flow identified. Trace free fluid. Procedure Note Abebe Daly MD - 02/07/2021F ormatting of this note might be different from the original. EXAM: US PELVIS COMPLETE W TRANSVAGINAL AND DOPPLER LIMITED LOCATION: [facility] DATE/TIME: 02/07/2021 6:35 PM INDICATION: Acute onset LLQ pain COMPARISON: CT 08/11/2020 TECHNIQUE: Transabdominal scans were per formed. Endovaginal ultrasound was performed to better visualize the adnexa. Color flow with spectral Doppler and waveform analysis performed. FINDINGS: UTERUS: 8.8 x 5.9 x 7.3 cm. Normal in si ze and position with no masses. ENDOMETRIUM: 8 mm. Normal smooth endomet rium. RIGHT OVARY: 2.2 x 2.8 x 1.5 cm. Normal with arterial and color duplex flow identified. LEFT OVARY: 1.5 x 1.7 x 1.7 cm. Normal w ith arterial and color duplex flow identified. Trace free fluid. IMPRESSION: 1. Trace nonspecific free fluid otherwis e normal. Hernandez Schultz MD IMG US ORDERABLES (ABNORMAL) UA with Microscopic reflex to Culture (02/07/2021 6:29 PM CDT) [facility] Method Time Signature Color Urine Straw Colorless, 02/07/2021 LABORATORY Straw, Light 6:58 PM CDT Yellow, Yellow Appearance Urine Clear Clear 02/07/2021 [facility] LABORATOR Y 6:58 PM CDT Glucose Urine Negative Negative 02/07/2021 LABORATORY mg/dL 6:58 PM CDT Bilirubin Urine Negative Negative 02/07/2021 LABORATORY 6:58 PM CDT Ketones Urine Negative Negative 02/07/2021 LABORATORY mg/dL 6:58 PM CDT Specific Wilmar 1.007 1.003 - 02/07/2021 LABORATOR Y Urine 1.035 6:58 PM CDT Blood Urine Large (A) Negative 02/07/2021 LABORATORY 6:58 PM CDT pH Urine 5.0 5.0 - 7.0 02/07/2021 LABORATORY 6:58 PM CDT Protein Albumin Negative Negative 02/07/2021 LABORATORY Urine mg/dL 6:58 PM CDT Urobilinogen Normal Normal, 2.0 02/07/2021 LABORATORY Urine mg/dL 6:58 PM CDT Nitrite Urine Negative Negative 02/07/2021 LABORATORY 6:58 PM CDT Leukocyte Negative Negative 02/07/2021 LABORATORY Esterase Urine 6:58 PM CDT Bacteria Urine Few (A) None Seen 02/07/2021 LABORATORY /HPF 6:58 PM CDT RBC Urine 69 (H) <=2 /HPF 02/07/2021 LABORATORY 6:58 PM CDT WBC Urine 2 <=5 /HPF 02/07/2021 LABORATORY 6:58 PM CDT Squamous 2 (H) <=1 /HPF 02/07/2021 LABORATORY Epithelials 6:58 PM CDT Urine Specimen Anatomical Collection Method Collection Time Receive d Time (Source) Location / / Volume Laterality Urine URINE SPECIMEN Non-blood 02/07/2021 6:29 PM 021 6:34 OBTAINED BY CLEAN Collection / CDT PM CDT CATCH PROCEDURE / Unknown Unknown Narrative LABORATORY - 02/07/2021 6:58 PM CDT Urine Culture not indicated Hernandez Schultz MD LAB - URINE ORDERABLES Performing Organization Address City/State/ZIP Code Phon [place] [address] Care [facility] [address] Lab (1st floor, no room number) HCG qualitative Blood (02/07/2021 5:27 PM CDT) Patholo gist Method Time Signature hCG Serum Negative Negative MARGIE 02/07/2021 [facility] LABORATORY Qualitative 6:26 PM CDT Comment: This test is for screening purp oses. Results should be interpreted along with the clinical picture. Confirmation testing is available if warranted by ordering [id number], HCG Quantitative . Specimen Anatomical Collection Method / Collection Time Recei romeo Time (Source) Location / Volume Laterality Blood STRUCTURE OF RIGHT Venipuncture / 02/07/2021 5:27 10/0 10/2020 5:53 UPPER LIMB / Unknown PM CDT PM CDT Unknown Hernandez Schultz MD LAB - BLOOD ORDERABLES Performing Organization Address City/[facility]/ZIP Code Phon [place] [address] Care Lab [address] Lab (1st floor, no room number) Lipase (02/07/2021 3:54 PM CDT) P athologist Signature Lipase 142 73 - 393 U/L 02/07/2021 [facility] LABORATORY 6:14 PM CDT Specimen Anatomical Collection Method / Collection Time Recei romeo Time (Source) Location / Volume Laterality Blood STRUCTURE OF RIGHT Venipuncture / 02/07/2021 3:54 10/0 10/2020 4:01 UPPER LIMB / Unknown PM CDT PM CDT Unknown Hernandez Schultz MD LAB - BLOOD ORDERABLES Performing Organization Address City/State/ZIP Code Phon [place] [address] Care Lab [address] Lab (1st floor, no room number) (ABNORMAL) Hepatic panel (02/07/2021 3:54 PM CDT) Analysis Performed At Patho logist Time Signature Bilirubin Total 0.9 0.2 - 1.3 02/07/2021 [facility] LABORATORY mg/dL 6:14 PM CDT Bilirubin Direct 0.2 0.0 - 0.2 02/07/2021 [facility] LABORATOR Y mg/dL 6:14 PM CDT Protein Total 8.4 6.8 - 8.8 02/07/2021 [facility] LAB[facility] g/dL 6:14 PM CDT Albumin 3.8 3.4 - 5.0 02/07/2021 [facility] LABORAT[facility] g/dL 6:14 PM CDT Alkaline 71 40 - 150 02/07/2021 [facility]AT[facility] Phosphatase U/L 6:14 PM CDT AST 47 (H) 0 - 45 U/L 02/07/2021 [facility] LABORAT[facility] 6:14 PM CDT ALT 47 0 - 50 U/L 02/07/2021 [facility] LABORAT[facility] 6:14 PM CDT Specimen Anatomical Collection Method / Collection Time Recei romeo Time (Source) Location / Volume Laterality Blood STRUCTURE OF RIGHT Venipuncture / 02/07/2021 3:54 10/10/2020 4:01 UPPER LIMB / Unknown PM CDT PM CDT Unknown Hernandez Schultz MD LAB - BLOOD ORDERABLES Performing Organization Address City/State/ZIP Code Phon e Number [place] [address] Care Lab [address] Lab (1st floor, no room number) (ABNORMAL) CBC with platelets and differential (02/07/2021 3:54 PM CDT) [facility] gist Method Time Signature WBC Count 9.5 4.0 - 02/07/2021 [facility] LABORATORY 11.0 4:04 PM CDT 10e3/uL RBC Count 4.21 3.80 - 02/07/2021 [facility] LABORATORY 5.20 4:04 PM CDT 10e6/uL Hemoglobin 11.0 (L) 11.7 - 02/07/2021 [facility]OR[facility] 15.7 g/dL 4:04 PM CDT Hematocrit 35.6 35.0 - 02/07/2021 [facility] LAB[facility] 47.0 % 4:04 PM CDT MCV 85 78 - 100 02/07/2021 [facility]ORAT[facility] fL 4:04 PM CDT MCH 26.1 (L) 26.5 - 02/07/2021 [facility] LABORATORY 33.0 pg 4:04 PM CDT MCHC 30.9 (L) 31.5 - 02/07/2021 [facility] LABORATORY 36.5 g/dL 4:04 PM CDT RDW 15.0 10.0 - 02/07/2021 [facility] 15.0 % 4:04 PM CDT Platelet Count 337 150 - 450 02/07/2021 [facility] 10e3/uL 4:04 PM CDT % Neutrophils 63 % 02/07/2021 [facility] 4:04 PM CDT % Lymphocytes 28 % 02/07/2021 [facility] 4:04 PM CDT % Monocytes 7 % 02/07/2021 [facility] 4:04 PM CDT % Eosinophils 1 % 02/07/2021 [facility] 4:04 PM CDT % Basophils 1 % 02/07/2021 [facility] 4:04 PM CDT % Immature 0 % 02/07/2021 [facility] Granulocytes 4:04 PM CDT NRBCs per 100 0 <1 /100 02/07/2021 [facility] WBC 4:04 PM CDT Absolute 6.0 1.6 - 8.3 02/07/2021 [facility] Neutrophils 10e3/uL 4:04 PM CDT Absolute 2.7 0.8 - 5.3 02/07/2021 [facility] Lymphocytes 10e3/uL 4:04 PM CDT Absolute 0.6 0.0 - 1.3 02/07/2021 [facility] Monocytes 10e3/uL 4:04 PM CDT Absolute 0.1 0.0 - 0.7 02/07/2021 [facility] Eosinophils 10e3/uL 4:04 PM CDT Absolute 0.1 0.0 - 0.2 02/07/2021 [facility] Basophils 10e3/uL 4:04 PM CDT Absolute 0.0 <=0.0 02/07/2021 [facility] Immature 10e3/uL 4:04 PM CDT Granulocytes Absolute NRBCs 0.0 10e3/uL 02/07/2021 [facility] 4:04 PM CDT Specimen Anatomical Collection Method / Collection Time Recei romeo Time (Source) Location / Volume Laterality Blood STRUCTURE OF RIGHT Venipuncture / 02/07/2021 3:54 10/0 10/2020 4:01 UPPER LIMB / Unknown PM CDT PM CDT Unknown Hernandez Schultz MD LAB - BLOOD ORDERABLES Performing Organization Address City/State/ZIP Code Phon e Number [place] [address] [facility] [address] Lab (1st floor, no room number) (ABNORMAL) Basic metabolic panel (BMP) (02/07/2021 3:54 PM CDT) Analysis Performed At Patho logist Time Signature Sodium 138 133 - 144 02/07/2021 [facility] mmol/L 4:22 PM CDT Potassium 3.5 3.4 - 5.3 02/07/2021 [facility] mmol/L 4:22 PM CDT Chloride 105 94 - 109 02/07/2021 [facility] mmol/L 4:22 PM CDT Carbon Dioxide 24 20 - 32 02/07/2021 [facility] (CO2) mmol/L 4:22 PM CDT Anion Gap 9 3 - 14 02/07/2021 [facility] mmol/L 4:22 PM CDT Urea Nitrogen 15 7 - 30 02/07/2021 [facility] mg/dL 4:22 PM CDT Creatinine 0.62 0.52 - 02/07/2021 [facility] 1.04 mg/dL 4:22 PM CDT Calcium 8.6 8.5 - 10.1 02/07/2021 [facility] mg/dL 4:22 PM CDT Glucose 111 (H) 70 - 99 02/07/2021 [facility] mg/dL 4:22 PM CDT GFR Estimate >90 >60 02/07/2021 [facility] mL/min/1.7 4:22 PM CDT 3m2 Comment: As of November [...] Laterality Blood STRUCTURE OF RIGHT Venipuncture / 02/07/2021 3:54 10/10/2020 4:01 UPPER LIMB / Unknown PM CDT PM CDT Unknown Hernandez Schultz MD LAB - BLOOD ORDERABLES Performing Organization Address City/State/ZIP Code Phon e Number [place] [address] [facility] [address] Lab (1st floor, no room number) documented in this encounter Visit Diagnoses Diagnosis Abdominal pain, left lower quadrant documented in this encounter Administered Medications Inactive Administered Medications - up to 3 most recent administrations Medication Order MAR Action Action Date Dose Rate Site 0.9% sodium chloride BOLUS New Bag 02/07/2021 5:40 PM CDT 1,000 mLs 1000 mL/hr Intravenous, 1,000 mL, ONCE, at 1,000 mL/hr, Administer over 1 Hours, On Fri02/07/21 at 1735, For [address] Flush 100mL Saline Given 02/07/2021 8:20 PM CDT 62 mLs Intravenous, 100 mL, ONCE, On Fri02/07/21 at 2020, For 1 dose, This entry is for use by Radiology to intermittently used as a flush in patients receiving a CT scan. iopamidol (ISOVUE-370) solution 500 mL Given 02/07/2021 8:20 PM CDT 86 mLs 500 mL, Intravenous, ONCE, On Fri02/07/21 at 2020, For 1 dose ketorolac (TORADOL) injection 15 mg Given 02/07/2021 7:08 PM CDT 15 mg 15 mg, Intravenous, ONCE, On Fri02/07/21 at 1735, For 1 dose, Can cause pain on injection. If ordered intravenously (IV) : administer through a running maintenance fluid over 1 minute followed by a flush. If patient complains of pain on injection, may dilute 15-30 mg in 5 mL and push over 1 to 2 minutes. ondansetron (ZOFRAN) injection 4 mg Given 02/07/2021 5:44 PM CDT 4 mg 4 mg, Intravenous, ONCE, Administer over 2-5 Minutes, On Fri02/07/21 at 1735, For 1 dose, Irritant. documented in this encounter Active and Recently Administered Medications Times are shown in CDT. Scheduled Medication Order 02/05/2021 02/06/2021 02/07/2021 0.9% sodium chloride BOLUS (COMPLETED) 1739 (New Bag - Provider: Myrna Zafar, RN)2022 (Stopped - Provider: Syeda Bettencourt RN) Intravenous, 1,000 mL, ONCE, at 1,000 mL /hr, Administer over 1 Hours, On Fri02/07/21 at 1735, For [address] Flush 100mL Saline (COMPLETED) 2019 (Given - Provider: Susan Dickson) Intravenous, 100 mL, ONCE, On Fri at 2019, For 1 dose, This entry is for use by Radiology to intermittently used as a flush in patients receiving a CT scan. iopamidol (ISOVUE-370) solution 500 mL (COMPLETED) 2019 (Given - Provider: Susan Dickson) 500 mL, Intravenous, ONCE, On Fri02/07/21 at 2019, For 1 dose ketorolac (TORADOL) injection 15 mg (COMPLETED) 1907 (Given - Provider: Syeda Bettencourt, DELLA) 15 mg, Intravenous, ONCE, On Fri02/07/21 at 1735, For 1 dose, Can cause pain on injection. If ordered intravenously (IV) : administer through a running maintenance fluid over 1 minute followed by a flus h. If patient complains of pain on injec tion, may dilute 15-30 mg in 5 mL and push over 1 to 2 minutes. morphine (PF) injection 4 mg 192 0 (Canceled Entry - Provider: Orders Generic Provider - Comment: Automatically canceled at discontinue of medication order) 4 mg, Intravenous, ONCE, Administer over 4-5 Minutes, On Fri02/07/21 at 1920, For 1 dose ondansetron (ZOFRAN) injection 4 mg 1555 (Canceled Entry - Provider: Orders Generic Provider - Comment: Automatically canceled at discontinue of medication order) 4 mg, Intravenous, ONCE, Administer over 2-5 Minutes, On Fri02/07/21 at 1555, For 1 dose, Irritant. ondansetron (ZOFRAN) injection 4 mg (COMPLETED) 1743 (Given - Provider: Myrna Zafar, DELLA) 4 mg, Intravenous, ONCE, Administer over 2-5 Minutes, On Fri02/07/21 at 1735, For 1 dose, Irritant. documented in this encounter Additional Health Concerns Assessment Noted Time PHQ-9 Depression Total Score: 12 09/17/2018 1:32 PM CD T documented as of this encounter Care Teams Unit Secy Relationship Specialty Start Date End Date Clinic - [facility] PCP - General 09/16/18 [facility] [id number] [address] Ingrid Gillespie, LYUDMILA Assigned PCP 01/28/21 [address] [place], [place] [id number] Luis E Mtz MD Assigned Surgical Provider 01/14/21 Alivia E [facility]IL[facility] [address] [place] [address] documented as of this encounter
--- OUTSIDE RECORDS SUMMARY | 2022-02-09 00:59 | XMS_ITS | Encounter Summary ---
:1975 Author Organization [place] Address [address] [place] [address] Care Team Providers Name Role Phone Clinic - [facility] Primary Care Provider Irina Ricci VENDOR MANAGEMENT CONSULTANT Unavailable Reason for Visit Reason Comments Dizziness Tachycardia Encounter Details Date Type Department Care Team Description 11/25/2018 [facility] HaapapDaniel dumont Nonint ractable episodic headache, unspecified headache type; [facility] [address] [place], [place] [address] [facility] [address] [place] [address] [phone] (Wo rk) Social History Tobacco Use Types [...] on file documented as of this encounter Last Filed Vital Signs Vital Sign Reading Time Taken Comments Blood Pressure 120/68 11/25/2018 10:45 PM CDT Pulse 67 11/25/2018 10:45 PM CDT Temperature 37 ??C (98.6 ??F) 11/25/2018 7:18 PM CDT Respiratory Rate 19 11/25/2018 10:45 PM CDT Oxygen Saturation 98% 11/25/2018 10:45 PM CDT Inhaled Oxygen Concentration - - Weight 68 kg (150 lb) 11/25/2018 7:18 PM CDT Height - - Body Mass Index 25.75 09/17/2018 1:11 PM CDT documented in this encounter Discharge Instructions Discharge InstructionsDaniel Bah MD - 11/25/2018 11:30 PM CDT Discharge Instructions Headache You were seen today for a headache. Headaches may be caused by many different things such as muscle tension, sinus inflammation, anxiety and stress, having too little sleep, too much alcohol, some medical conditions or injury. You may have a migraine, which is caused by changes in the blood vessels inyour head. At this time your provider does not find that your headache is a sign of anything dangerous or life-threatening. However, sometimes the signs of serious illness do not show up right away. Generally, every Emergency Department visit should have a follow-up clinic visit with either a primary or a specialty clinic/provider. Please follow-up as instructed by your emergency provider today. Return to the Emergency Department if: You get a new fever of 100.4??F or higher. Your headache gets much worse. You get a stiff neck with your headache. You get a new headache that is significantly different or worse than headaches you have had before. You are vomiting (throwing up) and cannot keep food or water down. You have blurry or double vision or other problems with your eyes. You have a new weakness on one side of your body. You have difficulty with balance which is new. You or your family thinks you are confused. You have a seizure. What can I do to help myself? Pain medications - You may take a pain medication such as Tylenol?? (acetaminophen), Advil??, Motrin?? (ibuprofen) or Aleve?? (naproxen). Take a pain reliever as soon as you notice symptoms. Starting medications as soon as you start to have symptoms may lessen the amount of pain you have. Relaxing in a quiet, dark room may help. Get enough sleep and eat meals regularly. You may need to watch for certain foods or other things which may trigger your headaches. Keeping a journal of your headaches and possible triggers may help you and your primary provider to identify things which you should avoid which may be causing your headaches. If you were given a prescription for [...] if there is anything that worries you. Discharge Instructions Dizziness (Lightheaded) Today you were seen for dizziness. Dizziness can be caused by many things and it can be very difficult to determine the cause of dizziness. At this time, your provider has found no signs that your dizziness is due to a serious or life- threatening condition. However, sometimes there is a serious problem that does not show up right away, and it is important for you to follow up with your regular provider as instructed. Generally, every Emergency Department visit should have a follow-up clinic visit with either a primary or a specialty clinic/provider. Please follow-up as instructed by your emergency provider today. Return to the Emergency Department if: You pass out (fainting or falling out), especially during exercise. You develop chest pain, chest pressure or difficulty breathing. Your feel an irregular heartbeat. You have excessive vaginal bleeding, or blood in your stool or vomit (throw up). You have a high fever. Your symptoms get worse or more frequent. If when you begin to feel dizzy or lightheaded, it is important to sit down or lay down immediately to prevent injury from falling. If you were given a prescription for [...] Date buPROPion (WELLBUTRIN XL) Take 1 tablet (150 90 tablet 1 01/26/2019 150 MG 24 hr mg) by mouth every tabletIndications: morning Situational depression, Overweight (BMI 25.0-29.9) documented as of this encounter ED Notes Carmen Valderrama RN - 11/25/2018 11:40 PM CDT AVS reviewed. Delia Her RN - 11/25/2018 7:17 PM CDT Patient states she has felt her heart racing and dizziness off and on since 0 last night. Headache and nausea. ABC intact alert and no distress. Daniel Bah MD - 11/25/2018 7:00 PM CDT History Chief Complaint: Dizziness and Tachycardia HPI Alyssa Aguillon is a 43 year old female with a history of anemia and menorrhagia, who presents with intermittent palpitations and dizziness for the past 24 hours, prompting her to visit the ED. To note, the patient was diagnosed with iron deficiency anemia in September 2018 and has tried taking iron pillssince then.The patient reports feeling fatigued and weak since getting home from work last night. Inaddition to her palpitations, she endorses nausea, chest tightness, shortness of breath, intermittent hand numbness, heaviness in her legs while walking, and headache. She denies a prior history of headaches. She also reports that she is not having palpitations while in the ED. In addition, she is currently on her second day of her menses and reports intense cramping 1 day ago, but denies heavier than usual bleeding. She reports that her current constellation of symptoms feelsimilar to previous menstrual cycles that have been worse in the last several months. She denies fever, cough, or rhinorrhea. She denies being around anyone sick recently. Allergies: Compazine Tamiflu Medications: Wellbutrin Past Medical History: Abnormal pap smear Anemia Menorrhagia, premenopausal Ovarian cyst Depression Panic attack Past Surgical History: Colonoscopy Family History: HTN Social History: Smoking status: none Alcohol use: yes Drug use: no PCP: [facility] Marital Status: Single Review of Systems Constitutional: Negative for fever. HENT: Negative for rhinorrhea. Respiratory: Positive for shortness of breath. Negative for cough. Cardiovascular: Positive for palpitations. Positive for chest tightness. Gastrointestinal: Positive for nausea. Neurological: Positive for dizziness, numbness (tingling) and headaches. Psychiatric/Behavioral: The patient is nervous/anxious. All other systems reviewed and are negative. Physical Exam Patient Vitals for the past 24 hrs: BP Temp Temp src Pulse Heart Rate Resp SpO2 Weight 11/25/18 2245 120/68 -- -- 67 74 19 98 % -- 11/25/18 2230 119/65 -- -- 80 86 20 98 % -- 11/25/18 2215 119/69 -- -- 83 92 12 98 % -- 11/25/18 2200 (!) 130/93 -- -- 77 83 22 99 % -- 11/25/18 2145 124/70 -- -- 77 90 18 99 % -- 11/25/18 2130 132/75 -- -- 83 86 11 99 % -- 11/25/18 2115 119/75 -- -- 81 80 19 97 % -- 11/25/18 2100 133/76 -- -- 75 80 13 100 % -- 11/25/182039 -- -- -- -- 83 14 100 % -- 11/25/182011 137/86 -- -- 86 83 15 -- -- 11/25/181917 (!) 153/99 98.6 ??F (37 ??C) Temporal 86 -- 20 100 % 68 kg (150 lb) Physical Exam Nursing note and vitals reviewed. Constitutional: Cooperative. HENT: Mouth/Throat: Moist mucous membranes. Eyes: EOMI, nonicteric sclera Cardiovascular: Normal rate, regular rhythm, no murmurs, rubs, or gallops Pulmonary/Chest: Effort normal and breath sounds normal. No respiratory distress. No wheezes. No rales. Abdominal: Soft. Nontender, nondistended, no guarding or rigidity. BS present. Musculoskeletal: Normal range of motion. Neurological: Alert. Moves all extremities spontaneously. No facial droop. No dysarthria/aphasia. 5/5 BUE and BLE strength. PERRL Skin: Skin is warm and dry. No rash noted. Psychiatric: anxious mood and affect. Emergency Department Course ECG: ECG (19:10:36): Rate 71 bpm. MI interval 138. QRS duration 76. QT/QTc 384/417. P-R-T axes 64 53 32. Normal sinus rhythm. Normal ECG. Interpreted at 1913 by Daniel Bah MD. Laboratory: ISTAT HCG Quant: <5.0 CBC: WBC 6.9, HGB 8.4 (L), PLT 324 CMP: WNL (Creatinine 0.64) Interventions: 2055: NS 1L IV Bolus 2055: Toradol 15 mg IV 2100: Ativan 1 mg IV 2234: Benadryl 25 mg IV 2236: Reglan 10 mg IV Emergency Department Course: 2006: Nursing notes and vitals reviewed. I performed an exam of the patient as documented above. IV inserted. Medicine administered as documented above. Blood drawn. This was sent to the lab for further testing, results above. 2234: I rechecked the patient and discussed the results of her workup thus far. She rates her headache as 5/10. Findings and plan explained to the Patient. Patient discharged home with instructions regarding supportive care, medications, and reasons to return. The importance of close follow-up was reviewed. I personally reviewed the laboratory results with the Patient and answered all related questions prior to discharge. Impression & Plan Medical Decision Making: Pt presents with multiple complaints. Pt reports these complaints are recurrent surrounding her menses monthly over the last several months. Her workup and exam is unremarkable today apart from known anemia and notable anxiety on exam. Pt is quite concerned about her anemia tonight, believing it's responsible for her symptoms. Discussed use of iron tabs which pt states she won't be taking due to sideeffects. Also discussed that anemia is unlikely contributing to her symptoms tonight given her hemoglobin has been the same for the last 2 months and she is only symptomatic during her menses. She is improved after medications here. I doubt headache/dizziness is due to intracranial process at this time. May be due to mild hypovolemia 2/2 menstruation. Workup is reassuring. Recommended that she rest for next several days and schedule follow-up with her pcp/obgyn to discuss how she can reduce her symptoms. She's symptomatically improved at time of discharge. All questions answered and she and her mother are in agreement with the plan. Diagnosis: ICD-10-CM 1. Nonintractable episodic headache, unspecified headache type R51 2. Dizziness R42 Disposition: discharged to home Vickie Mccrary, am serving as a scribe at 8:07 PM on 11/25/2018 to document services personally performed by Daniel Bah MD based on my observations and the provider's statements to me. Vickie العراقي 11/25/2018 [facility] EMERGENCY DEPARTMENT Daniel Bah MD 11/26/18 0243 documented in this encounter Plan of Treatment Not on filedocumented as of this encounter Procedures Procedure Name Priority Date/Time Associated Comments Diagnosis ISTAT HCG QUANTITATIVE Routine 11/25/2018 8:42 PM Results for this POCT CDT procedure are in the results section. CBC WITH PLATELETS & STAT 11/25/2018 8:38 PM R esults for this DIFFERENTIAL CDT procedure are i n the results section. COMPREHENSIVE STAT 11/25/2018 8:38 PM Results for this METABOLIC PANEL CDT procedure ar e in the results section. EKG 12-LEAD, TRACING STAT 11/25/2018 7:10 PM R esults for this ONLY CDT procedure are i n the results section. documented in this encounter Results ISTAT HCG Quantitative POCT (11/25/2018 8:42 PM CDT) P athologist Signature HCG Quantitative <5.0 <5.0 IU/L 11/25/2018 POINT [facility] CAR E Serum 8:55 PM CDT TEST, HANDHELD METER Specimen Anatomical Collection Method Collection Time Receive d Time (Source) Location / / Volume Laterality 11/25/2018 8:42 PM 9 8:55 CDT PM CDT Daniel [facility] POCT Performing Organization Address City/State/ZIP Code Phon e Number [facility] POINT OF CARE TEST, HANDHELD METER POINT OF CARE TEST, HANDHELD METER Comprehensive metabolic panel (11/25/2018 8:38 PM CDT) athologist Signature Sodium 139 133 - 144 11/25/2018 [facility] mmol/L 8:58 PM [facility] Potassium 3.5 3.4 - 5.3 11/25/2018 [facility] mmol/L 8:58 PM [facility] Chloride 107 94 - 109 11/25/2018 [facility] mmol/L 8:58 PM [facility] Carbon Dioxide 26 20 - 32 11/25/2018 [facility] mmol/L 9:05 PM [facility] Anion Gap 6 3 - 14 11/25/2018 [facility] mmol/L 9:05 PM [facility] Glucose 81 70 - 99 11/25/2018 [place] mg/dL 9:05 PM [facility] Urea Nitrogen 8 7 - 30 11/25/2018 [facility] mg/dL 9:05 PM [facility] Creatinine 0.64 0.52 - 11/25/2018 [facility] 1.04 mg/dL 9:05 PM [facility] GFR Estimate >90 >60 11/25/2018 [place] mL/min/{1. 9:05 PM [facility] 73_m2} [facility] Comment: Non GFR Calc Starting 04/21/2018, serum creatinine ba sed estimated GFR (eGFR) will be calculated using the Chronic Kidney Dise [facility] Epidemiology Collaboration (CKD-EPI) equation. GFR Estimate If >90 >60 mL/min/{1.73_m2} 11/25/2018 9: 05 PM [facility] Comment: GFR Calc Starting 04/21/2018, serum creatinine ba sed estimated GFR (eGFR) will be calculated using the Chronic Kidney Dise [facility] Epidemiology Collaboration (CKD-EPI) equation. Calcium 9.0 8.5 - 10.1 mg/dL 11/25/2018 9:05 PM [facility] Bilirubin Total 0.6 0.2 - 1.3 mg/dL 11/25/2018 9:[address] [facility] Albumin 3.7 3.4 - 5.0 g/dL 11/25/2018 9:[address] [facility] Protein Total 8.0 6.8 - 8.8 g/dL 11/25/2018 9:07 PM [facility] Alkaline Phosphatase 70 40 - 150 U/L 11/25/2018 9:[address] [facility] ALT 14 0 - 50 U/L 11/25/2018 9:07 PM [facility] AST 20 0 - 45 U/L 11/25/2018 9:07 PM [facility] Specimen Anatomical Collection Method Collection Time Receive d Time (Source) Location / / Volume Laterality Blood specimen 11/25/2018 8:38 PM 019 8:44 (specimen) CDT [facility] Daniel Bah MD LAB - BLOOD ORDERABLES Performing Organization Address City/State/ZIP Code Phon e Number [place] [address] [address] HOSPITAL [facility] [address] [phone] (ABNORMAL) CBC with platelets differential (11/25/2018 8:38 PM CDT) [facility] Method Time Signature WBC 6.9 4.0 - 11/25/2018 [facility] 11.0 8:49 PM [facility] 10e9/L HOSPITAL RBC Count 3.89 3.8 - 5.2 11/25/2018 [facility] 10e12/L 8:49 PM [facility] Hemoglobin 8.4 (L) 11.7 - 11/25/2018 [facility] 15.7 g/dL 8:49 PM [facility] Hematocrit 29.0 (L) 35.0 - 11/25/2018 [facility] 47.0 % 8:49 PM [facility] MCV 75 (L) 78 - 100 11/25/2018 [facility] fl 8:49 PM [facility] MCH 21.6 (L) 26.5 - 11/25/2018 [facility] 33.0 pg 8:49 PM [facility] MCHC 29.0 (L) 31.5 - 11/25/2018 [facility] 36.5 g/dL 8:49 PM [facility] RDW 17.0 (H) 10.0 - 11/25/2018 [facility] 15.0 % 8:49 PM [facility] Platelet Count 324 150 - 450 11/25/2018 [facility] 10e9/L 8:49 PM [facility] Diff Method Automated 11/25/2018 [facility] Method 8:49 PM [facility] % Neutrophils 63.6 % 11/25/2018 [facility] 8:49 PM [facility] % Lymphocytes 27.5 % 11/25/2018 [facility] 8:49 PM [facility] % Monocytes 7.1 % 11/25/2018 [facility] 8:49 PM [facility] % Eosinophils 0.9 % 11/25/2018 [facility] 8:49 PM [facility] % Basophils 0.6 % 11/25/2018 [facility] 8:49 PM [facility] % Immature 0.3 % 11/25/2018 [facility] Granulocytes 8:49 PM [facility] Nucleated RBCs 0 0 /100 11/25/2018 [facility] 8:49 PM [facility] Absolute 4.4 1.6 - 8.3 11/25/2018 [facility] Neutrophil 10e9/L 8:49 PM [facility] Absolute 1.9 0.8 - 5.3 11/25/2018 [facility] Lymphocytes 10e9/L 8:49 PM [facility] Absolute 0.5 0.0 - 1.3 11/25/2018 [facility] Monocytes 10e9/L 8:49 PM [facility] Absolute 0.1 0.0 - 0.7 11/25/2018 [facility] Eosinophils 10e9/L 8:49 PM [facility] Absolute 0.0 0.0 - 0.2 11/25/2018 [facility] Basophils 10e9/L 8:49 PM [facility] Abs Immature 0.0 0 - 0.4 11/25/2018 [facility] Granulocytes 10e9/L 8:49 PM [facility] Absolute 0.0 11/25/2018 [facility] Nucleated RBC 8:49 PM CDT [facility] Specimen Anatomical Collection Method Collection Time Receive d Time (Source) Location / / Volume Laterality Blood specimen 11/25/2018 8:38 PM 019 8:44 (specimen) CDT PM CDT Daniel Bah MD LAB - BLOOD ORDERABLES Performing Organization Address City/State/ZIP Code Phon e Number [place] [address] [address] [place], [place] [address] [facility] [address] [place], [place] [address] [phone] EKG 12 lead (11/25/2018 7:10 PM CDT) [facility] Method Time Signature Interpretation ECG Click View RADIOLOGY Image link RESULTS to view waveform and result Specimen (Source) Anatomical Collection Method Collection Time Re ceived Time Location / / Volume Laterality 11/25/2018 7:10 PM CDT Daniel Bah MD ECG ORDERABLES Performing Organization Address City/State/ZIP Code Phon e Number RADIOLOGY RESULTS documented in this encounter Visit Diagnoses Diagnosis Nonintractable episodic headache, unspec ified headache type Dizziness Dizziness and giddiness documented in this encounter Administered Medications Inactive Administered Medications - up to 3 most recent administrations Medication Order MAR Action Action Date Dose Rate Site 0.9% sodium chloride BOLUS New Bag 11/25/2018 8:56 PM CDT 1,000 mLs 2000 mL/hr Intravenous, 1,000 mL, ONCE, at 2,000 mL/hr, Administer over 30 Minutes, On Fri11/25/18 at 2028, For 1 dose diphenhydrAMINE (BENADRYL) injection 25 mg Given 11/25/2018 10:35 PM CDT 25 mg 25 mg, Intravenous, ONCE, On Fri11/25/18 at 2214, For 1 dose, For ordered IV doses 1-50 mg, give IV Push undiluted. Give each 25mg over a minimum of 1 minute. Extend in non-emergency ketorolac (TORADOL) injection 15 mg Given 11/25/2018 8:56 PM CDT 15 mg 15 mg, Intravenous, ONCE, On Fri11/25/18 at 2028, For 1 dose, Can cause pain on injection. If ordered intravenously (IV) : administer through a running maintenance fluid over 1 minute followed by a flush. If patient complains of pain on injection, may dilute 15-30 mg in 5 mL and push over 1 to 2 minutes. LORazepam (ATIVAN) injection 1 mg Given 11/25/2018 9:01 PM CDT 1 mg 1 mg, Intravenous, ONCE, On Fri11/25/18 at 2028, For 1 dose, This drug may cause significant respiratory depression. Monitor respiratory status and vital signs carefully for 1 hour after each dose. metoclopramide (REGLAN) injection 10 mg Given 11/25/2018 10:37 PM CDT 10 mg 10 mg, Intravenous, Administer over 2 Minutes, ONCE, On Fri11/25/18 at 2214, For 1 dose, Avoid use if patient has full bowel obstruction or perforation. Irritant. For ordered IV doses 1-10 mg, give IV Push undiluted over 2 minutes. documented in this encounter Active and Recently Administered Medications Times are shown in CDT. Scheduled Medication Order 11/23/2018 11/24/2018 11/25/2018 0.9% sodium chloride BOLUS (COMPLETED) 2055 (New Bag - Provider: Skylar Andujar RN)2154 (Stopped - Provider: Carmen Valderrama RN) Intravenous, 1,000 mL, ONCE, at 2,000 mL /hr, Administer over 30 Minutes, Fri11/25/18 at 2028, For 1 dose diphenhydrAMINE (BENADRYL) injection 25 mg (COMPLETED) 2234 (Given - Provider: Carmen Valderrama RN) 25 mg, Intravenous, ONCE, Fri11/25/18 at 2214, For 1 dose, For ordered IV doses 1-50 mg, give IV Push undiluted. Give each 25mg over a minimum of 1 minute. Extend in non-emergency ketorolac (TORADOL) injection 15 mg (COMPLETED) 2055 (Given - Provider: Skylar Andujar RN) 15 mg, Intravenous, ONCE, Fri11/25/18 at 2028, For 1 dose, Can cause pain on injection. If ordered intravenously (IV) : administer through a running maintenance fluid over 1 minute followed by a flush. If patient complains of pain on injectio n, may dilute 15-30 mg in 5 mL and push over 1 to 2 minutes. LORazepam (ATIVAN) injection 1 mg (COMPLETED) 2100 (Given - Provider: Skylar Andujar, DELLA) 1 mg, Intravenous, ONCE, Fri11/25/18 at 2028, For 1 dose, This drug may cause significant respiratory depression. Monitor respiratory status and vital signs carefully for 1 hour after each dose. metoclopramide (REGLAN) injection 10 mg (COMPLETED) 2236 (Given - Provider: Camren Valderrama, DELLA) 10 mg, Intravenous, Administer over 2 Mi nutes, ONCE, Fri11/25/18 at 2214, For 1 dose, Avoid use if patient has full bowel obstruction or perforation. Irritant. For ordered IV doses 1-10 mg, give IV Push undiluted over 2 minutes. documented in this encounter Additional Health Concerns Assessment Noted Time PHQ-9 Depression Total Score: 12 09/17/2018 1:32 PM CD T documented as of this encounter Care Teams Painter Supervisor Relationship Specialty Start Date End Date Clinic - [facility] PCP - General 09/16/18 [id number] [place] [address] Irina Ricci, RODERICK Assigned PCP 09/20/18 01/30/19 [address] [place], [place] [id number] documented as of this encounter
--- OUTSIDE RECORDS SUMMARY | 2022-02-09 00:59 | XMS_ITS | Encounter Summary ---
:1975 Author Organization [place] Address [address] [place] [address] Care Team Providers Name Role Phone [facility] - [facility] Primary Care Provider Irina Ricci COMPUTER FORENSICS TECHNICIAN Unavailable Reason for Visit Reason Comments Urinary Problem Encounter Details Date Type Department Care Team Description 01/26/2019 Office Visit [facility] Dori, Acute cyst itis with hematuria (Primary Dx); Clinic Jorge Krishnamurthy CNP Dysuria; [address] Nonspecific finding on examination of ur ine; [place], [place] Nausea; [id number] Situational depression; [phone] Overweight (BMI 25.0-29.9) (Work) Social History Tobacco Use Types Packs/Day Years [...] Sign Reading Time Taken Comments Blood Pressure 123/74 01/26/2019 9:01 AM CDT Pulse 75 01/26/2019 9:01 AM CDT Temperature 36.2 ??C (97.1 ??F) 01/26/2019 9:01 AM CDT Respiratory Rate 18 01/26/2019 9:01 AM CDT Oxygen Saturation 100% 01/26/2019 9:01 AM CDT Inhaled Oxygen Concentration - - Weight 70.4 kg (155 lb 4.8 oz) 01/26/2019 9:01 AM CDT Height 162.6 cm (5' 4) 01/26/2019 9:01 AM CDT Body Mass Index 26.66 01/26/2019 9:01 AM CDT documented in this encounter Patient Instructions Patient InstructionsDeRaghu bell CNP - 01/26/2019 8:40 AM CDT Cephalexin (keflex) 1 capsule twice a day for 7 days Ondansetron (zofran) 1 tablet every 4 hours as needed for nausea. Push fluids Plenty of rest Tylenol and ibuprofen for pain Wellbutrin as prescribed documented in this encounter Progress Notes Raghu Meadows CNP - 01/26/2019 8:40 AM CDT Subjective Alyssa Aguillon is a 43 year old female who presents to clinic today for the following health issues: HPI URINARY TRACT SYMPTOMS ?? Duration: This morning ?? Description Had a hard time starting to urinate ?? Intensity: moderate ?? Accompanying signs and symptoms: Fever/chills: YES- chills Flank pain no Nausea and vomiting: YES- nausea Vaginal symptoms: none Abdominal/Pelvic Pain: YES - abdominal pain ?? History History of frequent UTI's: YES History of kidney stones: no Sexually Active: YES Possibility of : No ?? Precipitating or alleviating factors: None ?? Therapies tried and outcome: none PROBLEMS TO ADD ON: Patient also states she is almost out of her Wellbutrin. She is experiencing no side effects. Seems to be working good for her. no thoughts of suicide or self harm. Has been on it since May of 2018. Reviewed and updated as needed this visit by Provider Tobacco Allergies Meds Problems Med Hx Surg Hx Fam Hx Objective BP 123/74 Pulse 75 Temp 97.1 ??F (36.2 ??C) (Tympanic) Resp 18 Ht 1.626 m (5' 4) Wt 70.4 kg (155 lb 4.8 oz) SpO2 100% BMI 26.66 kg/m?? Body mass index is 26.66 kg/m??. Physical Exam Vitals signs and nursing note reviewed. Constitutional: Appearance: Normal appearance. Cardiovascular: Rate and Rhythm: Normal rate and regular rhythm. Heart sounds: Normal heart sounds. Pulmonary: Effort: Pulmonary effort is normal. Breath sounds: Normal breath sounds and air entry. Abdominal: Palpations: Abdomen is soft. Tenderness: There is generalized tenderness. There is no right CVA tenderness or left CVA tenderness. Skin: General: Skin is warm and dry. Neurological: Mental Status: She is alert and oriented to person, place, and time. Psychiatric: Mood and Affect: Mood normal. Speech: Speech normal. Behavior: Behavior normal. Behavior is cooperative. Diagnostic Test Results: Labs reviewed in [facility] Results for orders placed or performed in visit on 01/26/19 (from the past 24 hour(s)) UA reflex to Microscopic and Culture Result Value Ref Range Color Urine Yellow Appearance Urine Clear Glucose Urine Negative NEG^Negative mg/dL Bilirubin Urine Negative NEG^Negative Ketones Urine Negative NEG^Negative mg/dL Specific [place] Urine <=1.005 1.003 - 1.035 Blood Urine Small (A) NEG^Negative pH Urine 5.5 5.0 - 7.0 pH Protein Albumin Urine Negative NEG^Negative mg/dL Urobilinogen Urine 0.2 0.2 - 1.0 EU/dL Nitrite Urine Negative NEG^Negative Leukocyte Esterase Urine Small (A) NEG^Negative Source Midstream Urine Urine Microscopic Result Value Ref Range WBC Urine 25-50 (A) OTO5^0 - 5 /HPF RBC Urine O - 2 OTO2^O - 2 /HPF WBC Clumps Present (A) NEG^Negative /HPF Hyaline Casts O - 2 OTO2^O - 2 /LPF Squamous Epithelial /LPF Urine Few FEW^Few /LPF Bacteria Urine Few (A) NEG^Negative /HPF Assessment & Plan Alyssa was seen today for urinary problem. Diagnoses and all orders for this visit: Acute cystitis with hematuria - cephALEXin (KEFLEX) 500 MG capsule; Take 1 capsule (500 mg) by mouth 2 times daily for 7 days Dysuria - UA reflex to Microscopic and Culture; Future - UA reflex to Microscopic and Culture - Urine Microscopic Nonspecific finding on examination of urine - Urine Culture Aerobic Bacterial Nausea - ondansetron (ZOFRAN-ODT) 4 MG ODT tab; Take 1 tablet (4 mg) by mouth every 4 hours as needed for nausea Situational depression - buPROPion (WELLBUTRIN XL) 150 MG 24 hr tablet; Take 1 tablet (150 mg) by mouth every morning Overweight (BMI 25.0-29.9) - buPROPion (WELLBUTRIN XL) 150 MG 24 hr tablet; Take 1 tablet (150 mg) by mouth every morning Discussed with patient that UA does show an infection. Will get her started on keflex twice a day for 7 days. Will also do zofran every 4 hours as needed for nausea. At the end of the visit patient also asks about her Wellbutrin almost being out. Since it is working for her and having no side effects will refill today. Did a 90 day supply with no refill because that will be at about a year from her initial prescription so will need follow up with PCP. Additional symptomatic treatment recommendationswere discussed. Education was added to AVS. Patient was agreeable to plan and verbalized understanding. BMI: Estimated body mass index is 26.66 kg/m?? as calculated from the following: Height as of this encounter: 1.626 m (5' 4). Weight as of this encounter: 70.4 kg (155 lb 4.8 oz). Patient Instructions Cephalexin (keflex) 1 capsule twice a day for 7 days Ondansetron (zofran) 1 tablet every 4 hours as needed for nausea. Push fluids Plenty of rest Tylenol and ibuprofen for pain Wellbutrin as prescribed Return if symptoms worsen or fail to improve. Raghu Meadows CNP [facility] [place] documented in this encounter Plan of Treatment Not on filedocumented as of this encounter Procedures Procedure Name Priority Date/Time Associated Diagnosis Comme nts URINE MICROSCOPIC Routine 01/26/2019 8:45 AM Dysuria Resu lts for this CDT procedure are i n the results section. UA MACROSCOPIC WITH Routine 01/26/2019 8:45 AM Dysuria Re sults for this REFLEX TO CDT procedure are i n MICROSCOPIC AND the results CULTURE section. URINE CULTURE Routine 01/26/2019 8:45 AM Nonspecific finding R esults for this CDT on examination of procedure are in urine the results section. documented in this encounter Results Urine Culture Aerobic Bacterial (01/26/2019 8:45 AM CDT) Component Value Ref Test Analysis Performed At [facility] Range Method Time Signature Specimen Midstream Urine INFECTIOUS Description DISEASES DIAGNOSTIC LABORATORY Culture Micro <10,000 colonies/mL 01/27/2019 [facility] urogenital khalida 2:45 PM CDT DISEASES Susceptibility testing not routinely done DIAGNOSTIC LABORATORY Specimen (Source) Anatomical Collection Method Collection Time Re ceived Time Location / / Volume Laterality Examination of 01/26/2019 8:45 01/26/2019 9:00 midstream urine AM CDT AM CDT specimen (procedure) Raghu Meadows CNP LAB - MICRO GENERAL ORDERABL ES Performing Organization Address City/State/ZIP Code Phon e Number INFECTIOUS DISEASES [address] [place] [address] DIAGNOSTIC LABORATORY, [facility] INFECTIOUS DISEASES [address] [place] [address], [place] DIAGNOSTIC LABORATORY (ABNORMAL) Urine Microscopic (01/26/2019 8:45 AM CDT) Patholo gist Method Time Signature WBC Urine 25-50 (A) OTO5^0 - 01/26/2019 [facility] 5 /HPF 8:59 AM CDT [facility] [place] RBC Urine O - 2 OTO2^O - 01/26/2019 [facility] 2 /HPF 8:59 AM CDT [facility] [place] WBC Clumps Present (A) NEG^Negat 01/26/2019 [facility] debi /HPF 8:59 AM CDT [facility] [place] Hyaline Casts O - 2 OTO2^O - 01/26/2019 [facility] 2 /LPF 8:59 AM CDT [facility] [place] Squamous Few FEW^Few 01/26/2019 [facility] Epithelial /LPF /LPF 8:59 AM CDT CLINICS Urine [place] Bacteria Urine Few (A) NEG^Negat 01/26/2019 [facility] debi /HPF 8:59 AM CDT [facility] [place] Specimen Anatomical Collection Method Collection Time Receive d Time (Source) Location / / Volume Laterality 01/26/2019 8:45 AM 9 8:46 CDT AM CDT Raghu Meadows CNP LAB - URINE ORDERABLES Performing Organization Address City/State/ZIP Code Phon e Number [facility] [place] [address] [phone] (ABNORMAL) UA reflex to Microscopic and Culture (01/26/2019 8:45 AM CDT) [facility] Method Time Signature Color Urine Yellow 01/26/2019 [facility] 8:53 AM CDT [facility] [place] Appearance Urine Clear 01/26/2019 [facility] 8:53 AM CDT [facility] [place] Glucose Urine Negative NEG^Negat 01/26/2019 [facility] debi mg/dL 8:53 AM CDT [facility] [place] Bilirubin Urine Negative NEG^Negat 01/26/2019 [facility]bi 8:53 AM CDT [facility] [place] Ketones Urine Negative NEG^Negat 01/26/2019 [facility]bi mg/dL 8:53 AM CDT [facility] [place] Specific [place] <=1.005 1.003 - 01/26/2019 [facility] Urine 1.035 8:53 AM CDT [facility] [place] Blood Urine Small (A) NEG^Negat 01/26/2019 [facility]bi 8:53 AM CDT [facility] [place] pH Urine 5.5 5.0 - 7.0 01/26/2019 [facility] pH 8:53 AM CDT [facility] [place] Protein Albumin Negative NEG^Negat 01/26/2019 [facility] Urine debi mg/dL 8:53 AM CDT [facility] [place] Urobilinogen 0.2 0.2 - 1.0 01/26/2019 [facility] Urine EU/dL 8:53 AM CDT [facility] [place] Nitrite Urine Negative NEG^Negat 01/26/2019 [facility] debi 8:53 AM CDT [facility] [place] Leukocyte Small (A) NEG^Negat 01/26/2019 [facility] Esterase Urine debi 8:53 AM CDT [facility] [place] Source Midstream 01/26/2019 [facility] Urine 8:47 AM CDT [facility] [place] Specimen (Source) Anatomical Collection Method Collection Time Re ceived Time Location / / Volume Laterality Examination of 01/26/2019 8:45 01/26/2019 8:46 midstream urine AM CDT AM CDT specimen (procedure) Raghu Meadows COMMERCIAL LENDER LAB - URINE ORDERABLES Performing Organization Address City/State/ZIP Code Phon e Number [facility] [address] [place], [place] [address] documented in this encounter Visit Diagnoses Diagnosis Acute cystitis with hematuria - Primary Acute cystitis Dysuria Nonspecific finding on examination of ur ine Other nonspecific finding on examination of urine Nausea Nausea alone Situational depression Overweight (BMI 25.0-29.9) Overweight documented in this encounter Additional Health Concerns Assessment Noted Time PHQ-9 Depression Total Score: 12 09/17/2018 1:32 PM CD T documented as of this encounter Care Teams Pond Tender Relationship Specialty Start Date End Date Clinic - [facility] PCP - General 09/16/18 [address] [place] [address] Irina Ricci, RODERICK Assigned PCP 09/20/18 01/30/19 [address] [place] [address] documented as of this encounter
--- OUTSIDE RECORDS SUMMARY | 2022-02-09 00:59 | XMS_ITS | Encounter Summary ---
:1975 Author Organization [place] Address [address] [facility] [place] [address] Care Team Providers Name Role Phone [facility] Primary Care Provider Irina Ricci CPO Unavailable Encounter Details Date Type Department Care Team Description 07/07/2019 Travel Social History Tobacco Use Types Packs/Day [...] documented as of this encounter Care Teams Machine Bander And Cellophaner Relationship Specialty Start Date End Date [facility] PCP - General 09/16/18 [address] [place] [place] [address] Irina Ricci, RODERICK Assigned PCP 03/14/19 09/18/19 [address] [place] [address] documented as of this encounter
--- OUTSIDE RECORDS SUMMARY | 2022-02-09 00:59 | XMS_ITS | Encounter Summary ---
:1975 Author Organization [place] Address [address] [place] [address] Care Team Providers Name Role Phone Raghu Freed PA-C Unavailable [phone] Clinic - [facility] Primary Care Provider Encounter Details Date Type Department Care Team Description 09/17/2018 Travel Social History Tobacco Use Types Packs/Day [...] documented as of this encounter Care Teams Thread Separator Relationship Specialty Start Date End Date [facility] PCP - General 09/16/18 [address] [place] [address] Raghu Freed PA-C Assigned PCP 06/07/18 09/19/18 [address] [place] [address] documented as of this encounter
--- OUTSIDE RECORDS SUMMARY | 2022-02-09 00:59 | XMS_ITS | Encounter Summary ---
:1975 Author Organization [place] Address [address] [facility] [place] [address] Care Team Providers Name Role Phone Clinic - [facility] Primary Care Provider Raghu Meadows CNP Unavailable Lily Rincon PA-C Unavailable Asha Urbina PA-C Unavailable [phone] Reason for Visit Reason Comments Covid 19 Testing Encounter Details Date Type Department Care Team Description 09/29/2019 [facility] Preop testing [address] [phone] Social History Tobacco Use Types Packs/Day Years [...] documented as of this encounter Progress Notes Ernestine Mello - 09/29/2019 1:30 PM CDT COVID-19 PCR test completed. Patient handout For Patients Who Have Been Tested for Covid-19 (Coronavirus) was given to the patient, which includes test result notification process. Alee Piña RN - 09/29/2019 1:30 PM CDT Coronavirus (COVID-19) Notification Your result for COVID-19 is Negative Letter sent that will serve as a formal notice for your employer documented in this encounter Plan of Treatment Not on filedocumented as of this encounter Visit Diagnoses Diagnosis Preop testing Preoperative examination, unspecified documented in this encounter Additional Health Concerns Infection Onset Date Last Indicated Resolved Time Rule Out COVID-19 11/10/2019 11/10/2019 11/10/2019 9:5 3 PM CDT Assessment Noted Time PHQ-9 Depression Total Score: 12 09/17/2018 1:32 PM CD T documented as of this encounter Care Teams Sales Solutions Representative Relationship Specialty Start Date End Date Clinic - [facility] PCP - General 09/16/18 [address] [place] [address] Raghu Meadows CNP Assigned PCP 09/19/19 12/18/19 [address] [place], [place] [address] Lily Rincon PA-C Assigned PCP 12/19/19 08/12/20 [facility] [address] [facility] [id number] Asha Urbina PA-C Assigned PCP 08/13/20 09/27/20 [address] [place] [address] documented as of this encounter
--- OUTSIDE RECORDS SUMMARY | 2022-02-09 00:59 | XMS_ITS | Encounter Summary ---
:1975 Author Organization [place] Address [address] [facility] [place] [address] Care Team Providers Name Role Phone [facility] Primary Care Provider Irina Ricci ZONING TECHNICIAN Unavailable Encounter Details Date Type Department Care Team Description 01/26/2019 Travel Social History Tobacco Use Types Packs/Day [...] documented as of this encounter Care Teams Screen Tacker Relationship Specialty Start Date End Date Clinic - [facility] PCP - General 09/16/18 [address] [place] [address] Irina Ricci, RODERICK Assigned PCP 09/20/18 01/30/19 [address] [place] [address] documented as of this encounter
--- OUTSIDE RECORDS SUMMARY | 2022-02-09 00:59 | XMS_ITS | Encounter Summary ---
:1975 Author Organization [place] Address [address] [facility] [place] [address] Care Team Providers Name Role Phone [facility] Primary Care Provider Raghu Meadows WINDOWS MOBILE DEVELOPER Unavailable Encounter Details Date Type Department Care Team Description 11/02/2019 Travel Social History Tobacco Use Types Packs/Day [...] been in contact with No / Unsure 11/02/2019 7:11 AM CDT someone who was confirmed or suspected to have Coronavirus / COVID-19? documented as of this encounter Plan of Treatment Not on filedocumented as of this encounter Visit Diagnoses Not on filedocumented in this encounter Additional Health Concerns Assessment Noted Time PHQ-9 Depression Total Score: 12 09/17/2018 1:32 PM CD T documented as of this encounter Care Teams Principal Cyber Engineer Relationship Specialty Start Date End Date Clinic - [facility] PCP - General 09/16/18 [address] [place] [address] Raghu Meadows, WINDOWS MOBILE DEVELOPER Assigned PCP 09/19/19 12/18/[address] [place] [address] documented as of this encounter
--- OUTSIDE RECORDS SUMMARY | 2022-02-09 00:59 | XMS_ITS | Encounter Summary ---
:1975 Author Organization [place] Address [address] [facility] [place] [address] Care Team Providers Name Role Phone Clinic - [facility] Primary Care Provider Raghu Meadows CNP Unavailable Lily Rincon PA-C Unavailable Asha Urbina-C Unavailable [phone] Ingrid Gillespie FLUOROSCOPE OPERATOR Unavailable Rafaela Higuear PA-C Unavailable Ingrid Gillespie FLUOROSCOPE OPERATOR Unavailable Luis E Mtz MD Unavailable eMg Viigl PA-C Unavailable [phone] Encounter Details Date Type Department Care Team Description 09/28/2019 Orders Only [facility] Lakisha Diop t esting Services - Surgical Josiane noel MD (Primary Dx) Specialties Service [facility] OBGYN Line CONSULT [address] [place] [phone] [place] [address] [phone] (Wo rk) Social History Tobacco Use Types [...] this encounter Visit Diagnoses Diagnosis Preop testing - Primary Preoperative examination, unspecified documented in this encounter Additional Health Concerns Infection Onset Date Last Indicated Resolved Time Rule Out COVID-19 11/10/2019 11/10/2019 11/10/2019 9:5 3 PM CDT Assessment Noted Time PHQ-9 Depression Total Score: 12 09/17/2018 1:32 PM CD T documented as of this encounter Care Teams Manager Environmental Relationship Specialty Start Date End Date Clinic - [facility] PCP - General 09/16/18 [place] [address] [place] [address] Raghu Meadows CNP Assigned PCP 09/19/19 12/18/[address] [address] Lily Rincon PA-C Assigned PCP 12/19/19 08/12/[address] [facility] [address] [place] [id number] Asha Urbina Assigned PCP 08/13/20 09/27/20 [address] [address] [place] [address] Ingrid Gillespie, LYUDMILA Assigned PCP 09/28/20 12/30/20 [address] [place], [place] [address] Rafaela Higuera Assigned PCP 12/31/20 [address] [place], [place] [address] Ingrid Gillespie, FLUOROSCOPE OPERATOR Assigned PCP 01/28/21 [address] [place], [place] [id number] Luis E Mtz MD Assigned Surgical Provider 01/14/[address] [place], [place] [id number] Meg Vigil, Assigned PCP 01/07/21 01/27/21 [address] [place], [place] [id number] documented as of this encounter
--- OUTSIDE RECORDS SUMMARY | 2022-02-09 00:59 | XMS_ITS | Encounter Summary ---
:1975 Author Organization [facility] Address [address] [place] [address] Care Team Providers Name Role Phone Clinic - [facility] Primary Care Provider Raghu Meadows INCIDENT COORDINATOR Unavailable Reason for Visit Reason Comments Fatigue Encounter Details Date Type Department Care Team Description 11/10/2019 Emergency [facility] Hernandez King Pain of left upper extremity; [facility] Emergency Dep t MD Sonny Paresthesia; [address] [facility] EMERGENCY PHYSICIANS Generalized muscle weakness [facility] [id number] [phone] [place], [place] [address] (Wo rk) Social History Tobacco Use Types [...] been in contact with No / Unsure 11/10/2019 4:14 PM CDT someone who was confirmed or suspected to have Coronavirus / COVID-19? documented as of this encounter Last Filed Vital Signs Vital Sign Reading Time Taken Comments Blood Pressure 142/89 11/10/2019 7:29 PM CDT Pulse 76 11/10/2019 7:29 PM CDT Temperature 36.5 ??C (97.7 ??F) 11/10/2019 4:14 PM CDT Respiratory Rate 16 11/10/2019 7:33 PM CDT Oxygen Saturation 98% 11/10/2019 7:33 PM CDT Inhaled Oxygen Concentration - - Weight 69.9 kg (154 lb) 11/10/2019 4:14 PM CDT Height 163.8 cm (5' 4.5) 11/10/2019 4:14 PM CDT Body Mass Index 26.03 11/10/2019 4:14 PM CDT documented in this encounter Discharge Instructions Discharge InstructionsHernandez King MD - 11/10/2019 7:25 PM CDT Due to left arm pain we have done extensive testing including an EKG and a blood test. For the heartand these were negative. A blood test to screen you for a blood clot in the left arm and this was negative. We have done your hemoglobin and your white blood cell count which are also normal and a urine test. So far we do not have answers why you do not feel well. Please follow-up with your regular physician for further assessment. Return to the emergency room with numbness involve the face and arm or face arm and leg. If you see redness or swelling of the left arm. Or abdominal pain returns. Discharge Instructions for COVID-19 Patients You have--or may have--COVID-19. Please follow the instructions listed below. If you have a weakened immune system, discuss with your doctor any other actions you need to take. How can I protect others? If you have symptoms (fever, cough, body aches or trouble breathing): Stay home and away from others (self-isolate) until: At least 10 days have passed since your symptoms started. And??? You've had no fever--and no medicine that reduces fever--for 3 full days (72 hours). And??? Your other symptoms have resolved (gotten better). If you don't show symptoms, but testing showed that you have COVID-19: Stay home and away from others (self-isolate) until at least 10 days have passed since the date of your first positive COVID-19 test. During this time Stay in your own room, even for meals. Use your own bathroom if you can. Stay away from others in your home. No hugging, kissing or shaking hands. No visitors. Don't go to work, school or anywhere else. Clean high touch surfaces often (doorknobs, counters, handles). Use household cleaning spray or wipes. You'll find a full list of cloud developer on the EPA website: www.epa.gov/pesticide-registration/vwqz-e-ojilxbglerxxe-jic-vyreahr-eltc-cov-2. Cover your mouth and nose with a mask, tissue or wash cloth to avoid spreading germs. Wash your hands and face often. Use soap and water. Caregivers in these groups are at risk for severe illness due to COVID-19: People 65 years and older People who live in a custodial or long-term care facility People with chronic disease (lung, heart, cancer, diabetes, kidney, liver, immunologic) People who have a weakened immune system, including those who: Are in cancer treatment Take medicine that weakens the immune system, such as corticosteroids Had a bone marrow or organ transplant Have an immune deficiency Have poorly controlled HIV or AIDS Are obese (body mass index of 40 or higher) Smoke regularly Caregivers should wear gloves while washing dishes, handling laundry and cleaning bedrooms and bathrooms. Use caution when washing and drying laundry: Don't shake dirty laundry and use the warmest water setting that you can. For more tips on managing your health at home, go to www.cdc.gov/coronavirus/2019-ncov/downloads/10Things.pdf. How can I take care of myself at home? Get lots of rest. Drink extra fluids (unless a doctor has told you not to). Take Tylenol (acetaminophen) for fever or pain. If you have liver or kidney problems, ask your family doctor if it's okay to take Tylenol. Adults can take either: 650 mg (two 325 mg pills) every 4 to 6 hours, or??? 1,000 mg (two 500 mg pills) every 8 hours as needed. Note: Don't take more than 3,000 mg in one day. Acetaminophen is found in many medicines (both prescribed and atrv-mab-aqyxtsj medicines). Read all labels to be sure you don't take too much. For children, check the Tylenol bottle for the right dose. The dose is based on the child's age or weight. If you have other health problems (like cancer, heart failure, an organ transplant or severe kidney disease): Call your specialty clinic if you don't feel better in the next 2 days. Know when to call 911. Emergency warning signs include: Trouble breathing or shortness of breath Pain or pressure in the chest that doesn't go away Feeling confused like you haven't felt before, or not being able to wake up Bluish-colored lips or face Your doctor may have prescribed a blood thinner medicine. Follow their instructions. Where can I get more information? [facility] - About COVID-19: [email or web address] CDC - What to Do If You're Sick: www.cdc.gov/coronavirus/2019-ncov/about/maacg-lsij-jivb.html CDC - Ending Home Isolation: www.cdc.gov/coronavirus/2019-ncov/hcp/ukauzafswpr-xc-ackn-patients.html CDC - Caring for Someone: www.cdc.gov/coronavirus/2019-ncov/yf-rug-kxa-sick/hpom-bub-pvzahqr.html [facility] - Interim Guidance for Hospital Discharge to Home: www.health.[facility].ar.us/diseases/coronavirus/hcp/hospdischarge.pdf [facility] clinical trials (COVID-19 research studies): clinicalaffairs.[facility]/cvb-ymcjqske-mjafaq Below are the COVID-19 hotlines at the [facility] ([facility]). Interpreters are available. For health questions: Call [phone] or (7 a.m. to 7 p.m.) For questions about schools and childcare: Call [phone] or (7 a.m. to 7 p.m.) For informational purposes only. Not to replace the advice of your health care provider. Clinically reviewed by the Infection Prevention Team.Copyright ?? 2020 [employer]. All rights reserved. [employer] [id number] - 10/22. documented in this encounter Medications at Time of Discharge Medication Sig Dispensed Refills Start Date End Date buPROPion (WELLBUTRIN Take 1 tablet (150 90 tablet 0 201812/17/2019 XL) 150 MG 24 hr mg) by mouth every tabletIndications: morning Situational depression, Overweight (BMI 25.0-29.9) norethindrone-ethinyl Take 2 tablets daily 56 tablet 0 10/0512/17/2019 estradiol (ORTHO-NOVUM) until bleeding 1-35 MG-MCG tablet subsides, then take 1 tablet daily. Skip the placebo pills. ondansetron (ZOFRAN-ODT) Take 1 tablet (4 mg) 30 tablet 0 0 01/26/2019 12/17/2019 4 MG ODT tabIndications: by mouth every 4 Nausea hours as needed for nausea documented as of this encounter ED Notes Carmen Valderrama RN - 11/10/2019 4:11 PM CDT Pt presents for evaluation of fatigue and chills. 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 Hx of anemia was seen here a week ago due to vaginal bleeding. Last night had cramping, intermittent left arm numbness and dizziness. Was passing clots on Friday, denies any vaginal bleeding today. Hernandez King MD - 11/10/2019 3:57 PM CDT History Chief Complaint: Fatigue HPI Alyssa Aguillon is a 44 year old female who presents with feeling weak abdominal pain this weekendvaginal bleeding left arm pain and numbness and headache. Patient is a 44-year-old female with a history of a primary diagnosis of anemia recent and a uterineablation who was seen here at the end of October after procedure for heavy bleeding. Patient states thebleeding lasted for about a week. She has had some cramping and one point some pretty severe left lower quadrant pain. Patient is developed also pain in the left shoulder and left arm she describes numbness in her whole hand. She is had a headache. She has had no fever or chills. Patient is generally felt weak and icky. Patient presents the emergency room for further assessment. Allergies: Compazine Tamiflu Medications: Wellbutrin Past Medical History: Anemia Ovarian cyst Past Surgical History: LEEP Uterine Ablation Family History: Daughter: hypertension Social History: Denies tobacco use Rare alcohol use Denies drug use Marital Status: Single [1] Review of Systems Generally positive with complaints of headache, weakness, vaginal bleeding numbnes sand others. Physical Exam First Vitals: BP: (!) 157/104 Heart Rate: 76 Temp: 97.7 ??F (36.5 ??C) Resp: 18 Height: 163.8 cm (5' 4.5) Weight: 69.9 kg (154 lb) SpO2: 100 % Lying Orthostatic BP: 134/84 Lying Orthostatic Pulse: 74 bpm Sitting Orthostatic BP: 155/100 Sitting Orthostatic Pulse: 76 bpm Standing Orthostatic BP: 163/101 Standing Orthostatic Pulse: 73 bpm Physical Exam Vitals signs and nursing note reviewed. HENT: Head: Normocephalic. Right Ear: Tympanic membrane normal. Left Ear: Tympanic membrane normal. Nose: Nose normal. Mouth/Throat: Mouth: Mucous membranes are moist. Eyes: Pupils: Pupils are equal, round, and reactive to light. Cardiovascular: Rate and Rhythm: Normal rate. Pulses: Normal pulses. Pulmonary: Effort: Pulmonary effort is normal. Abdominal: General: Abdomen is flat. Palpations: Abdomen is soft. Skin: General: Skin is warm. Capillary Refill: Capillary refill takes less than 2 seconds. Neurological: General: No focal deficit present. Mental Status: She is alert. Psychiatric: Comments: ANXIOUS APPEARING. National Institutes of Health Stroke Scale Exam Interval: Baseline Score Level of consciousness: (0) Alert, keenly responsive LOC questions: (0) Answers both questions correctly LOC commands: (0) Performs both tasks correctly Best gaze: (0) Normal Visual: (0) No visual loss Facial palsy: (0) Normal symmetrical movements Motor arm (left): (0) No drift Motor arm (right): (0) No drift Motor leg (left): (0) No drift Motor leg (right): (0) No drift Limb ataxia: (0) Absent Sensory: (0) Normal- no sensory loss Best language: (0) Normal- no aphasia Dysarthria: (0) Normal Extinction and inattention: (0) No abnormality Total Score: 0 Emergency Department Course Laboratory: Covid-19 PCR: Pending HCG Qual: Negative CBC: WBC: 6.1, HGB: 10.1(L), PLT: 334 BMP: Glucose 86, Calcium: 8.4(L), o/w WNL (Creatinine: 0.61) UA with Microscopic: Leukocyte Esterase: Moderate, Squamous Epithelial: 4 (H), Mucous: Present, o/w WNL 1731 Troponin: <0.015 D Dimer: <0.3 Interventions: 1814 Toradol 15 mg IV 1814 NS 1000 mL IV Emergency Department Course: Nursing notes and vitals reviewed. (1800) I performed an exam of the patient as documented above. IV inserted. Medicine administered as documented above. Blood drawn. This was sent to the lab for further testing, results above. 1928 I rechecked the patient and discussed the results of her workup thus far. Findings and plan explained to the Patient. Patient discharged home with instructions regarding supportive care, medications, and reasons to return. The importance of close follow-up was reviewed. I personally reviewed the laboratory results with the Patient and answered all related questions prior to discharge. Impression & Plan Medical Decision Making: Pt presents with a multiplicity of vague sypmtoms including numbness and weakness and headache and parestesias, and feeling icky. Pt is well appearing, no clinical sypmtoms to suggest meningitis or encoephalitis, neurologic exam is normal. Pt describes vage paresthesias to fingers, suspect anxiety. Lab work performed and negative. Pt hemoglobin stable, no signs of major anemia. Recommend follow up with obgyn for reassessment and re assessment of generally positvie review of systems, without clinicalfindings including normal neurologic exam, and normal lab work. Diagnosis: ICD-10-CM 1. Pain of left upper extremity M79.602 2. Paresthesia R20.2 3. Generalized muscle weakness M62.81 Disposition: discharged to home Discharge Medications: Discharge Medication List as of 11/10/2019 7:26 PM Scribe Disclosure: Luis M Mccrary, am serving as a scribe on 11/10/2019 at 6:03 PM to personally document services performed by Hernandez King MD based on my observations and the provider's statements to me. Luis M Jairon-Eneh 11/10/2019 [facility] EMERGENCY DEPARTMENT Hernandez King MD 11/18/19 1342 documented in this encounter Miscellaneous Notes Result Encounter Note - Nohelia Avalos, RN - 11/10/2019 7:34 PM CDT Coronavirus (COVID-19) Notification Your result for COVID-19 is Negative Letter sent that will serve as a formal notice for your employer documented in this encounter Plan of Treatment Not on filedocumented as of this encounter Procedures Procedure Name Priority Date/Time Associated Comments Diagnosis EKG 12-LEAD, TRACING STAT 11/10/2019 7:17 PM R esults for this ONLY CDT procedure are i n the results section. SARS-COV-2 (COVID-19) Routine 11/10/2019 6:49 PM Pain of left upper Results for this VIRUS RT-PCR CDT extremity procedure are i n the results section. COVID-19 VIRUS STAT 11/10/2019 6:49 PM Pain of left upper R esults for this (CORONAVIRUS) BY PCR CDT extremity procedu re are in the results section. HCG QUALITATIVE URINE STAT 11/10/2019 5:31 PM Results for this CDT procedure are i n the results section. CBC WITH PLATELETS & STAT 11/10/2019 5:31 PM R esults for this DIFFERENTIAL CDT procedure are i n the results section. TROPONIN I Routine 11/10/2019 5:31 PM Results f or this CDT procedure are i n the results section. ROUTINE UA WITH STAT 11/10/2019 5:31 PM Result s for this MICROSCOPIC CDT procedure are i n the results section. D DIMER QUANTITATIVE Routine 11/10/2019 5:31 PM R esults for this CDT procedure are i n the results section. BASIC METABOLIC PANEL STAT 11/10/2019 5:31 PM Results for this CDT procedure are i n the results section. documented in this encounter Results EKG 12 lead (11/10/2019 7:17 PM CDT) [facility] Method Time Signature Interpretation ECG Click View RADIOLOGY Image link RESULTS to view waveform and result Specimen (Source) Anatomical Collection Method Collection Time Re ceived Time Location / / Volume Laterality 11/10/2019 7:17 PM CDT Hernandez King MD ECG ORDERABLES Performing Organization Address City/State/ZIP Code Phon e Number RADIOLOGY RESULTS SARS-CoV-2 COVID-19 Virus (Coronavirus) RT-PCR Nasopharyngeal (11/10/2019 6:49 PM CDT) [facility] Method Time Signature SARS-CoV-2 Nasopharyngeal 11/10/2019 [facility] Virus 9:53 PM CDT [facility] Source CAMPUS SARS-CoV-2 NEGATIVE 11/10/2019 [facility] PCR Result 9:53 PM CDT [facility] Comment: SARS-CoV2 (COVID-19) RNA not de tected, presumed negative. SARS-CoV-2 PCR Testing was performed using the Xpert Xpress SARS-CoV-2 Assay on the [employer] 11/10/2019 9:53 PM [facility] [employer]. Addition al information about this Emergency Use Authorization (EUA) [facility] assay can be found via the Lab Guide. [place] Comment: This test should be ordered for the dete ction of SARS-CoV-2 in individuals who meet SARS-CoV-2 clinical and/or epidemi ological criteria. Test performance is unknown in asymptomatic patients. This test is for in vitro diagnostic use under the FDA EUA for laboratories certified under CLIA to perform high com plexity testing. This test has not been FDA cleared or approved. A negative result does not rule out the presence of PCR inhibitors in the specimen or target RNA in concentration below the limit of detection for the assay. The possibility of a false negati ve should be considered if the patient's recent exposure or clinical pr esentation suggests COVID-19. This test was validated by the [facility] Infectious Diseases Diagnostic Laboratory. This laboratory i s certified under the Clinical Laboratory Improvement Amendments of 198 8 (CLIA-88) as qualified to perform high complexity laboratory testing. Specimen (Source) Anatomical Collection Method Collection Time Re ceived Time Location / / Volume Laterality Specimen from 11/10/2019 6:49 11/10/2019 nasopharyngeal PM CDT 7:15 PM CDT structure (specimen) Hernandez King MD LAB - MICRO GENERAL ORDERABL ES Performing Organization Address City/State/ZIP Code Phon e Number [address] [address] [facility] Symptomatic COVID-19 Virus (Coronavirus) by PCR (11/10/2019 6:49 PM CDT) Component Value Ref Test Analysis Performed At Patholo gist Range Method Time Signature COVID-19 Nasopharyngeal 11/10/2019 [place] Virus PCR to 6:50 PM CDT [facility] Source COVID-19 Test received-See 11/10/2019 INFECTIOUS Virus PCR to reflex to IDDL 8:51 PM CDT [facility] - test SARS CoV2 DIAGNOSTIC Result (COVID-19) Virus LABORATORY RT-PCR Specimen (Source) Anatomical Collection Method Collection Time Re ceived Time Location / / Volume Laterality Specimen from 11/10/2019 6:49 11/10/2019 nasopharyngeal PM CDT 7:15 PM CDT structure (specimen) Hernandez King MD LAB - MICRO GENERAL ORDERABL ES Performing Organization Address City/[facility]/ZIP Code Phon e Number INFECTIOUS DISEASES [address] [place] [address] DIAGNOSTIC LABORATORY, [facility] [address] [phone] INFECTIOUS DISEASES [address] [place] [address], A DIAGNOSTIC LABORATORY Troponin I (11/10/2019 5:31 PM CDT) P athologist Signature Troponin I ES <0.015 0.000 - 11/10/2019 [place] 0.045 ug/L 7:17 PM T [facility] Comment: The 99th percentile for upper reference range is 0.045 ug/L. ??Troponin values in the range of 0.045 - 0.120 ug/L may b e associated with risks of adverse clinical events. Specimen Anatomical Collection Method Collection Time Receive d Time (Source) Location / / Volume Laterality 11/10/2019 5:31 PM 0 5:54 CDT PM CDT Valerie Aj MD LAB - BLOOD ORDERABLES Performing Organization Address City/State/ZIP Code Phon e Number [facility] [address] [place], [place] [address] [facility] [address] [place], [place] [address] [address] [address] D dimer quantitative (11/10/2019 5:31 PM CDT) athologist Signature D Dimer <0.3 0.0 - 0.50 11/10/2019 [facility] 2001 ug/ml FEU 7:09 PM CDT HOSPITAL Comment: This D-dimer assay is intended for use i n conjunction with a clinical pretest probability assessment model to exclude pulmonary embolism (PE) and deep venous thrombosis (DVT) in outpatients s uspected of PE or DVT. The cut-off value is 0.5 ug/mL FEU. Specimen Anatomical Collection Method Collection Time Receive d Time (Source) Location / / Volume Laterality 11/10/2019 5:31 PM 0 5:54 CDT PM CDT Valerie Aj MD LAB - BLOOD ORDERABLES Performing Organization Address City/State/ZIP Code Phon e Number [facility] [address] [place], [place] [address] [facility] [address] [place], [place] [address] [address] (ABNORMAL) Routine UA with microscopic (11/10/2019 5:31 PM CDT) Patholo gist Method Time Signature Color Urine Straw 11/10/2019 [place] 6:07 PM [facility] Appearance Urine Clear 11/10/2019 [place] 6:07 PM [facility] Glucose Urine Negative NEG^Negat 11/10/2019 [place] debi mg/dL 6:07 PM [facility] Bilirubin Urine Negative NEG^Negat 11/10/2019 [place] debi 6:07 PM [facility] Ketones Urine Negative NEG^Negat 11/10/2019 [place] debi mg/dL 6:07 PM [facility] Specific [place] 1.006 1.003 - 11/10/2019 [place] Urine 1.035 6:07 PM [facility] Blood Urine Negative NEG^Negat 11/10/2019 [place] debi 6:07 PM [facility] pH Urine 7.0 5.0 - 7.0 11/10/2019 [place] pH 6:07 PM [facility] Protein Albumin Negative NEG^Negat 11/10/2019 [place] Urine debi mg/dL 6:07 PM [facility] Urobilinogen Normal 0.0 - 2.0 11/10/2019 [facility] mg/dL mg/dL 6:07 PM [facility] Nitrite Urine Negative NEG^Negat 11/10/2019 [place] debi 6:07 PM [facility] Leukocyte Moderate (A) NEG^Negat 11/10/2019 [facility] Esterase Urine debi 6:07 PM [facility] Source Midstream 11/10/2019 [place] Urine 5:31 PM [facility] WBC Urine 4 0 - 5 11/10/2019 [facility] /HPF 6:07 PM [facility] RBC Urine 1 0 - 2 11/10/2019 [facility] /HPF 6:07 PM [facility] Squamous 4 (H) 0 - 1 11/10/2019 [facility] Epithelial /HPF /HPF 6:07 PM [facility] Mucous Urine Present (A) NEG^Negat 11/10/2019 [place] debi /LPF 6:07 PM [facility] Specimen (Source) Anatomical Collection Method Collection Time Re ceived Time Location / / Volume Laterality Examination of 11/10/2019 5:31 11/10/2019 5:54 midstream urine PM CDT PM CDT specimen (procedure) Hernandez King MD LAB - URINE ORDERABLES Performing Organization Address City/State/ZIP Code Phon e Number [facility] [address] [place] [address] [facility] [address] [phone] (ABNORMAL) Basic metabolic panel (11/10/2019 5:31 PM CDT) P athologist Signature Sodium 140 133 - 144 11/10/2019 [place] mmol/L 6:10 PM [facility] Potassium 3.8 3.4 - 5.3 11/10/2019 [place] mmol/L 6:10 PM [facility] Chloride 107 94 - 109 11/10/2019 [place] mmol/L 6:10 PM [facility] Carbon Dioxide 28 20 - 32 11/10/2019 [place] mmol/L 6:16 PM [facility] Anion Gap 5 3 - 14 11/10/2019 [place] mmol/L 6:16 PM [facility] Glucose 86 70 - 99 11/10/2019 [place] mg/dL 6:16 PM [facility] Urea Nitrogen 8 7 - 30 11/10/2019 [place] mg/dL 6:16 PM [facility] Creatinine 0.61 0.52 - 11/10/2019 [place] 1.04 mg/dL 6:16 PM [facility] GFR Estimate >90 >60 11/10/2019 [place] mL/min/{1. 6:16 PM [facility] 73_m2} HOSPITAL Comment: Non GFR Calc Starting 04/21/2018, serum creatinine ba sed estimated GFR (eGFR) will be calculated using the [facility] Epidemiology Collaboration (CKD-EPI) equation. GFR Estimate If >90 >60 mL/min/{1.73_m2} 11/10/2019 6: 16 PM [facility] Comment: GFR Calc Starting 04/21/2018, serum creatinine ba sed estimated GFR (eGFR) will be calculated using the Chronic Kidney Dise [facility] Epidemiology Collaboration (CKD-EPI) equation. Calcium 8.4 (L) 8.5 - 10.1 mg/dL 11/10/2019 6:[address] [facility] Specimen Anatomical Collection Method Collection Time Receive d Time (Source) Location / / Volume Laterality Blood specimen 11/10/2019 5:31 PM 020 5:54 (specimen) CDT PM CDT Hernandez King MD LAB - BLOOD ORDERABLES Performing Organization Address City/State/ZIP Code Phon e Number [place] [address] [place] [address] [facility] [address] [place], [place] [address] [facility] [phone] [place] [address] [place] [address], [place] HOSPITAL (ABNORMAL) CBC with platelets differential (11/10/2019 5:31 PM [facility]) [facility] Method Time Signature WBC 6.1 4.0 - 11/10/2019 [facility] 11.0 6:03 PM [facility] 10e9/L HOSPITAL RBC Count 4.37 3.8 - 5.2 11/10/2019 [facility] 10e12/L 6:03 PM [facility] Hemoglobin 10.1 (L) 11.7 - 11/10/2019 [facility] 15.7 g/dL 6:03 [facility] Hematocrit 35.2 35.0 - 11/10/2019 [facility] 47.0 % 6:03 [facility] MCV 81 78 - 100 11/10/2019 [facility] fl 6:03 [facility] MCH 23.1 (L) 26.5 - 11/10/2019 [facility] 33.0 pg 6:03 [facility] MCHC 28.7 (L) 31.5 - 11/10/2019 [facility] 36.5 g/dL 6:03 [facility] RDW 15.9 (H) 10.0 - 11/10/2019 [facility] 15.0 % 6:03 PM [facility] Platelet Count 334 150 - 450 11/10/2019 [facility] 10e9/L 6:03 [facility] Diff Method Automated 11/10/2019 [facility] Method 6:03 PM [facility] % Neutrophils 58.7 % 11/10/2019 [facility] 6:03 PM [facility] % Lymphocytes 28.7 % 11/10/2019 [facility] 6:03 PM [facility] % Monocytes 9.9 % 11/10/2019 [facility] 6:03 PM [facility] % Eosinophils 1.3 % 11/10/2019 [facility] 6:03 PM [facility] % Basophils 1.2 % 11/10/2019 [facility] 6:03 [facility] % Immature 0.2 % 11/10/2019 [facility] Granulocytes 6:03 PM [facility] Nucleated RBCs 0 0 /100 11/10/2019 [facility] 6:03 PM [facility] Absolute 3.6 1.6 - 8.3 11/10/2019 [facility] Neutrophil 10e9/L 6:03 PM [facility] Absolute 1.7 0.8 - 5.3 11/10/2019 [facility] Lymphocytes 10e9/L 6:03 PM [facility] Absolute 0.6 0.0 - 1.3 11/10/2019 [facility] Monocytes 10e9/L 6:03 PM [facility] Absolute 0.1 0.0 - 0.7 11/10/2019 [facility] Eosinophils 10e9/L 6:03 PM [facility] Absolute 0.1 0.0 - 0.2 11/10/2019 [facility] Basophils 10e9/L 6:03 PM [facility] Abs Immature 0.0 0 - 0.4 11/10/2019 [facility] Granulocytes 10e9/L 6:03 PM [facility] Absolute 0.0 11/10/2019 [facility] Nucleated RBC 6:03 PM [facility] Specimen Anatomical Collection Method Collection Time Receive d Time (Source) Location / / Volume Laterality Blood specimen 11/10/2019 5:31 PM 020 5:54 (specimen) CDT PM CDT Hernandez King MD LAB - BLOOD ORDERABLES Performing Organization Address City/State/ZIP Code Phon e Number [place] [address] [place] [address] [phone] HCG qualitative urine (11/10/2019 5:31 PM CDT) athologist Signature HCG Qual Urine Negative NEG^Negati 11/10/2019 [facility] ve 6:03 PM [facility] Comment: This test is for screening purposes. ??R esults should be interpreted along with the clinical picture. ??Confirmation te sting is available if warranted by ordering [id number], HCG Quantitative Pregna ncy. Specimen Anatomical Collection Method Collection Time Receive d Time (Source) Location / / Volume Laterality Urine specimen 11/10/2019 5:31 PM 020 5:54 (specimen) CDT PM CDT Hernandez King MD LAB - URINE ORDERABLES Performing Organization Address City/State/ZIP Code Phon e Number M [facility] [address] [place], [place] [address] [facility] [address] [place], [place] [address], [facility] [phone] documented in this encounter Visit Diagnoses Diagnosis Pain of left upper extremity Paresthesia Disturbance of skin sensation Generalized muscle weakness Muscle weakness (generalized) documented in this encounter Administered Medications Inactive Administered Medications - up to 3 most recent administrations Medication Order MAR Action Action Date Dose Rate Site 0.9% sodium chloride BOLUS New Bag 11/10/2019 6:14 PM CDT 1,000 mLs 1000 mL/hr Intravenous, 1,000 mL, ONCE, at 1,000 mL/hr, Administer over 1 Hours, On Fri11/10/19 at 1806, For 1 dose ketorolac (TORADOL) injection 15 mg Given 11/10/2019 6:14 PM CDT 15 mg 15 mg, Intravenous, ONCE, On Fri11/10/19 at 1806, For 1 dose, Can cause pain on injection. If ordered intravenously (IV) : administer through a running maintenance fluid over 1 minute followed by a flush. If patient complains of pain on injection, may dilute 15-30 mg in 5 mL and push over 1 to 2 minutes. sodium chloride 0.9% infusion at 125 mL/hr, Intravenous, CONTINUOUS, A dminister after the bolus., Starting on Fri11/10/19 at 1906, Until Fri11/10/19 at 2135 documented in this encounter Active and Recently Administered Medications Times are shown in CDT. Scheduled Medication Order 11/08/2019 11/09/2019 11/10/2019 0.9% sodium chloride BOLUS (COMPLETED) 1813 (New Bag - Provider: Meg Sahni RN)192 (Stopped - Provider: Meg Sahni RN) Intravenous, 1,000 mL, ONCE, at 1,000 mL /hr, Administer over 1 Hours, On Fri11/10/19 at 1806, For 1 dose ketorolac (TORADOL) injection 15 mg (COMPLETED) 1813 (Given - Provider: Meg Sahni RN) 15 mg, Intravenous, ONCE, Fri11/10/19 at 1806, For 1 dose, Can cause pain on injection. If ordered intravenously (IV) : administer through a running maintenance fluid over 1 minute followed by a flush. I f patient complains of pain on injection , may dilute 15-30 mg in 5 mL and push over 1 to 2 minutes. Continuous Medication Order 11/08/2019 11/09/2019 11/10/2019 sodium chloride 0.9% infusion 19 06 (Canceled Entry - Provider: Orders Generic Provider - Comment: Automatically canceled at discontinue of medication order) at 125 mL/hr, Intravenous, CONTINUOUS, A dminister after the bolus., Starting Fri11/10/19 at 1906, Until Fri11/10/19 at 2135 documented in this encounter Additional Health Concerns Infection Onset Date Last Indicated Resolved Time Rule Out COVID-19 11/10/2019 11/10/2019 11/10/2019 9:5 3 PM CDT Assessment Noted Time PHQ-9 Depression Total Score: 12 09/17/2018 1:32 PM CD T documented as of this encounter Care Teams Biomedical Engineering Supervisor Relationship Specialty Start Date End Date Clinic - [facility] PCP - General 09/16/18 [address] [place] [address] Raghu Meadows, LYUDMILA Assigned PCP 09/19/19 12/18/19 [address] [place] [address] documented as of this encounter
--- OUTSIDE RECORDS SUMMARY | 2022-02-09 00:59 | XMS_ITS | Encounter Summary ---
:1975 Author Organization [place] Address [address] [place] [address] Care Team Providers Name Role Phone [facility] - [facility] Primary Care Provider Raghu Meadows TELEVISION AUDIO ENGINEER Unavailable Reason for Visit Reason Comments Pre-Op Exam Encounter Details Date Type Department Care Team Description 12/17/2019 Office Visit [facility] Lily Rincon, Pre- op exam (Primary Dx); [facility] PA-C Breast hypertrophy; [address] Other iron deficiency anemia [address] [place], [place] [address] [address] [place], [place] [phone] (Work) [phone] Social History Tobacco Use Types Packs/Day Years [...] been in contact with No / Unsure 12/17/2019 8:27 AM CDT someone who was confirmed or suspected to have Coronavirus / COVID-19? documented as of this encounter Last Filed Vital Signs Vital Sign Reading Time Taken Comments Blood Pressure 120/76 12/17/2019 8:40 AM CDT Pulse 80 12/17/2019 8:40 AM CDT Temperature - - Respiratory Rate 16 12/17/2019 8:40 AM CDT Oxygen Saturation 100% 12/17/2019 8:40 AM CDT Inhaled Oxygen Concentration - - Weight 73 kg (161 lb) 12/17/2019 8:40 AM CDT Height - - Body Mass Index 27.21 11/10/2019 4:14 PM CDT documented in this encounter Patient Instructions Patient InstructionsMoriahdavidPhoebe CMA - 12/17/2019 8:30 AM CDT Preparing for Your Surgery Getting started A surgery nurse will call you to review your health history and instructions. They will give you an arrival time based on your scheduled surgery time. Please be ready to share the following: ?? Your doctor's clinic name and phone number ?? Your medical, surgical and anesthesia history ?? A list of allergies and sensitivities ?? A list of medicines, including herbal treatments and [id number] drugs ?? Whether the patient has a legal guardian (ask how to send us the papers in advance) If your child is having surgery, please ask for a copy of Preparing for Your Child's Surgery. Preparing for surgery ?? Within 30 days of surgery: Have an exam at your family clinic (primary care clinic), or go to a pre-operative clinic. This exam is called a History and Physical, or H&P. ?? At your H&P exam, talk to your care team about all medicines you take. If you need to stop any medicines before surgery, ask when to start taking them again. ? We do this for your safety. Many medicines can make you bleed too much during surgery. Some changehow well surgery (anesthesia) drugs work. ?? Call your insurance company to see what it will and won't pay for. Ask if they need to pre-approve the surgery. (If no insurance, call [phone].) ?? Call your surgeon's clinic if there's any change in your health. This includes signs of a cold orflu (sore throat, runny nose, cough, rash, fever). It also includes a scrape or scratch near the surgery site. ?? If you have questions on the day of surgery, call your surgery center. Eating and drinking guidelines For your safety: Unless your surgeon tells you otherwise, follow the guidelines below. ?? Eat and drink as usual until 8 hours before surgery. After that, no food or milk. ?? Drink clear liquids until 2 hours before surgery. These are liquids you can see through, like water, Gatorade and Propel Water. You may also have black coffee and tea (no cream or milk). ?? Nothing by mouth within 2 hours of surgery. This includes gum, candy and breath mints. ?? Stop alcohol the midnight before surgery. ?? If your family clinic tells you to take medicine on the morning of surgery, it's okay to take it with a sip of water. Preventing infection ?? Shower or bathe the night before and morning of your surgery. Follow the instructions your clinicgave you. (If no instructions, use regular soap.) ?? Don't shave or clip hair near your surgery site. This can lead to skin infection. ?? Don't smoke the morning of surgery. Smoking increases the risk of infection. You may chew nicotine gum up to 2 hours before surgery. A nicotine patch is okay. ? Note: Some surgeries require you to completely quit smoking and nicotine. Check with your surgeon. ?? Your care team will make every effort to keep you safe from infection. We will: ? Clean our hands often with soap and water (or an alcohol-based hand rub). ? Clean the skin at your surgery site with a special soap that kills germs. We'll also remove hair from the site as needed. ? Wear special hair covers, masks, gowns and gloves during surgery. ? Give antibiotic medicine, if prescribed. Not all surgeries need antibiotics. What to bring on the day of surgery ?? Photo ID and insurance card ?? Copy of your health care directive, if you have one ?? Glasses and hearing aides (bring cases) ? You can't wear contacts during surgery ?? Inhaler and eye drops, if you use them (tell us about these when you arrive) ?? CPAP machine or breathing device, if you use them ?? A few personal items, if spending the night ?? If you have . . . ? A pacemaker or ICD (cardiac defibrillator): Bring the ID card. ? An implanted stimulator: Bring the remote control. ? A legal guardian: Bring a copy of the certified (court-stamped) guardianship papers. Please remove any jewelry, including body piercings. Leave jewelry and other valuables at home. If you're going home the day of surgery Important: If you don't follow the rules below, we must cancel your surgery. ?? Arrange for someone to drive you home after surgery. You may not drive, take a taxi or take public transportation by yourself (unless you'll have local anesthesia only). ?? Arrange for a responsible adult to stay with you overnight. If you don't, we may keep you in the hospital overnight, and you may need to pay the costs yourself. Questions? If you have any questions for your care team, list them here: For informational purposes only. Not to replace the advice of your health care provider. Copyright ?? 5676-1050 [facility]. All rights reserved. Clinically reviewed by Dariela Guevara MD. [employer] [id number] - REV 11/20. documented in this encounter Progress Notes Lily Rincon PA-C - 12/17/2019 8:30 AM CDT [facility] [address] [place] [phone] Dept: [phone] PRE-OP EVALUATION: Today's date: 12/17/2019 Alyssa Aguillon (: 1975) presents for pre-operative evaluation assessment as requested by Dr. Marquez. She requires evaluation and anesthesia risk assessment prior to undergoing surgery/procedure for treatment of breast hypertrophy. Proposed Surgery/ Procedure: Bilateral Mastopexy Date of Surgery/ Procedure: 12/27/2019 Time of Surgery/ Procedure: 12:30 Hospital/Surgical Facility: [facility] Primary Physician: [facility] Type of Anesthesia Anticipated: to be determined Preoperative Questionnaire: No - Have you ever had a heart attack or stroke? No - Have you ever had surgery on your heart or blood vessels, such as a stent, coronary (heart) bypass, or surgery on an artery in the head, neck, heart, or legs? No - Do you have chest pain when you are physically active? No - Do you have a history of heart failure? No - Do you currently have a cold, bronchitis, or symptoms of other respiratory (head and chest) infections? No - Do you have a cough, shortness of breath, or wheezing? No - Do you or anyone in your family have a history of blood clots? No - Do you or anyone in your family have a serious bleeding problem, such as long-lasting bleeding after surgeries or cuts? YES - Have you ever had anemia or been told to take iron pills? No - Have you had any abnormal blood loss such as black, tarry or bloody stools, or abnormal vaginalbleeding? No - Have you ever had a blood transfusion? Yes - Are you willing to have a blood transfusion if it is medically needed before, during, or afteryour surgery? No - Have you or anyone in your family ever had problems with anesthesia (sedation for surgery)? No - Do you have sleep apnea, excessive snoring, or daytime drowsiness? No - Do you have any artifical heart valves or other implanted medical devices, such as a pacemaker,defibrillator, or continuous glucose monitor? No - Do you have any artifical joints? No - Are you allergic to latex? No - Is there any chance that you may be ? Patient has a Health Care Directive or Living Will: NO HPI: HPI related to upcoming procedure: patient with bilateral breast hypertrophy, undergoing bilateral mastopexy on 12/27/2019. Presents today for pre-op exam. See problem list for active medical problems. Problems all longstanding and stable, except as noted/documented. See ROS for pertinent symptoms related to these conditions. MEDICAL HISTORY: Patient Active Problem List Diagnosis Date Noted ??? Situational depression 05/28/2018 Priority: Medium ??? Overweight (BMI 25.0-29.9) 05/28/2018 Priority: Medium ??? Panic attack 12/17/2017 Priority: Medium ??? H/O LEEP 08/07/2016 Priority: Medium 09/24/10: [facility] pap LEEP done, results unknown. 07/31/16: NIL pap, Neg HR HPV result. Plan cotest in 1 year per provider. 03/24/18 Patient is lost to pap tracking follow-up. ??? Other iron deficiency anemia 09/14/2015 Priority: Medium ??? Nausea 03/01/2014 Priority: Medium ??? Bulge of lumbar disc without myelopathy 09/15/2013 Priority: Medium ??? Low back pain 09/15/2013 Priority: Medium ??? Acute low back pain with disc symptoms, duration less than 6 weeks 09/08/2013 Priority: Medium ??? Abnormal Pap smear 10/02/2010 Priority: Medium 09/2010 [facility], referred for colp, plans f/u with [facility] INFORMATION SECURITY DIRECTOR ??? Ovarian cyst 09/24/2010 Priority: Medium ??? Menorrhagia 09/24/2010 Priority: Medium ??? CARDIOVASCULAR SCREENING; LDL GOAL LESS THAN 160 03/04/2010 Priority: Medium Past Medical History: Diagnosis Date ??? Abnormal Pap smear 8 yrs ago, 09/2010 [facility] ??? Anemia ??? Menorrhagia, premenopausal 2010 ??? Streptococcal sore throat required hospitalization 1 yr ago Past Surgical History: Procedure Laterality Date ??? COLPOSCOPY CERVIX, LOOP ELECTRODE BIOPSY, COMBINED years ago, 8 years ago LEEP No current outpatient medications on file. OTC products: None, except as noted above Allergies Allergen Reactions ??? Compazine [Prochlorperazine] ??? Tamiflu [Oseltamivir] Hives Latex Allergy: NO Social History Tobacco Use ??? Smoking status: Never Smoker ??? Smokeless tobacco: Never Used Substance Use Topics ??? Alcohol use: Yes Comment: rare History Drug Use No REVIEW OF SYSTEMS: Constitutional, neuro, ENT, endocrine, pulmonary, cardiac, gastrointestinal, genitourinary, musculoskeletal, integument and psychiatric systems are negative, except as otherwise noted. EXAM: BP 120/76 Pulse 80 Resp 16 Wt 73 kg (161 lb) SpO2 100% BMI 27.21 kg/m?? GENERAL APPEARANCE: healthy, alert and no distress EYES: EOMI, PERRL HENT: ear canals and TM's normal and nose and mouth without ulcers or lesions NECK: no adenopathy, no asymmetry, masses, or scars and thyroid normal to palpation RESP: lungs clear to auscultation - no rales, rhonchi or wheezes CV: regular rates and rhythm, normal S1 S2, no S3 or S4 and no murmur, click or rub MS: extremities normal- no gross deformities noted, no evidence of inflammation in joints, FROM in all extremities. SKIN: no suspicious lesions or rashes NEURO: Normal strength and tone, sensory exam grossly normal, mentation intact and speech normal PSYCH: mentation appears normal. and affect normal/bright LYMPHATICS: No cervical adenopathy DIAGNOSTICS: EKG: Not indicated due to non-vascular surgery and low risk of event (age <65 and without cardiacrisk factors) Labs Resulted Today: Results for orders placed or performed in visit on 12/17/19 Hemoglobin Status: Abnormal Result Value Ref Range Hemoglobin 10.5 (L) 11.7 - 15.7 g/dL Recent Labs Lab Test 11/10/19 1731 11/02/19 0746 HGB 10.1* 10.8* PLT 334 342 INR -- 0.96 NA 140 139 POTASSIUM 3.8 4.0 CR 0.61 0.78 IMPRESSION: Reason for surgery/procedure: breast hypertrophy Diagnosis/reason for consult: pre-op exam The proposed surgical procedure is considered LOW risk. REVISED CARDIAC RISK INDEX The patient has the following serious cardiovascular risks for perioperative complications such as (ID, PE, VFib and 3?? AV Block): No serious cardiac risks INTERPRETATION: 0 risks: Class I (very low risk - 0.4% complication rate) The patient has the following additional risks for perioperative complications: No identified additional risks ICD-10-CM 1. Pre-op exam Z01.818 Hemoglobin 2. Breast hypertrophy N62 3. Other iron deficiency anemia D50.8 RECOMMENDATIONS: Anemia Anemia and does not require treatment prior to surgery. Monitor Hemoglobin postoperatively. --Patient is on no chronic medications APPROVAL GIVEN to proceed with proposed procedure, without further diagnostic evaluation Signed Electronically by: Lily Rincon PA-C Copy of this evaluation report is provided to requesting physician. Daily Preop Guidelines Revised Cardiac Risk Index documented in this encounter Plan of Treatment Not on filedocumented as of this encounter Procedures Procedure Name Priority Date/Time Associated Diagnosis Comme nts HEMOGLOBIN Routine 12/17/2019 8:40 AM Pre-op exam Results f or this CDT procedure are i n the results section . documented in this encounter Results (ABNORMAL) Hemoglobin (12/17/2019 8:40 AM CDT) P athologist Signature Hemoglobin 10.5 (L) 11.7 - 12/17/2019 [facility] 15.7 g/dL 9:00 AM CDT [facility] Specimen Anatomical Collection Method Collection Time Receive d Time (Source) Location / / Volume Laterality Blood specimen 12/17/2019 8:40 AM 020 8:45 (specimen) CDT AM CDT Lily Rincon PA-C LAB - BLOOD ORDERABLES Performing Organization Address City/State/ZIP Code Phon e Number [facility] [address] [place] [address] [employer] documented in this encounter Visit Diagnoses Diagnosis Pre-op exam - Primary Preoperative examination, unspecified Breast hypertrophy Hypertrophy of breast Other iron deficiency anemia documented in this encounter Additional Health Concerns Assessment Noted Time PHQ-9 Depression Total Score: 12 09/17/2018 1:32 PM CD T documented as of this encounter Care Teams Food Safety Field Specialist Relationship Specialty Start Date End Date Clinic - [facility] PCP - General 09/16/18 [address] [place] [address] Raghu Meadows, LYUDMILA Assigned PCP 09/19/19 12/18/19 [address] [place] [address] documented as of this encounter
--- OUTSIDE RECORDS SUMMARY | 2022-02-09 00:59 | XMS_ITS | Encounter Summary ---
:1975 Author Organization [place] Address [address] [facility] [place] [address] Care Team Providers Name Role Phone [facility] Primary Care Provider Raghu Meadows HUMID SYSTEM OPERATOR Unavailable Encounter Details Date Type Department Care Team Description 12/17/2019 Travel Social History Tobacco Use Types Packs/Day [...] documented as of this encounter Care Teams Repair Cameraman Relationship Specialty Start Date End Date Clinic - [facility] PCP - General 09/16/18 [address] [place] [address] Raghu Meadows, HUMID SYSTEM OPERATOR Assigned PCP 09/19/19 12/18/[address] [place] [address] documented as of this encounter
--- OUTSIDE RECORDS SUMMARY | 2022-02-09 00:59 | XMS_ITS | Encounter Summary ---
:1975 Author Organization [facility] Address [address] [place] [address] Care Team Providers Name Role Phone Raghu Freed PA-C Unavailable [phone] Clinic - [facility] Primary Care Provider Irina Ricci SYSTEMS TEST ANALYST Unavailable Reason for Visit Reason Comments Follow Up [facility] ER on 09/16/18 rt side s ciatica, left wrist pain and general weakness -feeling off. Encounter Details Date Type Department Care Team Description 09/17/2018 Office Visit [facility] Irina Ricci Other ir on deficiency anemia (Primary Dx); Clinic [employer] RODERICK Mckeon Situational depression [address] [place] [address] [place] [address] [id number] [phone] Social History Tobacco Use Types Packs/Day Years Used Date Never Smoker Smokeless Tobacco: Never Used Tobacco Cessation: Counseling Given: No Alcohol Use Standard Drinks/Week Comments Yes 0 [...] Sign Reading Time Taken Comments Blood Pressure 98/70 09/17/2018 1:11 PM CDT Pulse 105 09/17/2018 1:11 PM CDT Temperature 36.8 ??C (98.2 ??F) 09/17/2018 1:11 PM CDT Respiratory Rate 16 09/17/2018 1:11 PM CDT Oxygen Saturation 100% 09/17/2018 1:11 PM CDT Inhaled Oxygen Concentration - - Weight 69.2 kg (152 lb 8 oz) 09/17/2018 1:11 PM CDT Height 162.6 cm (5' 4) 09/17/2018 1:11 PM CDT Body Mass Index 26.18 09/17/2018 1:11 PM CDT documented in this encounter Patient Instructions Patient InstructionsIrina Ricci NP - 09/17/2018 1:00 PM CDT OTC ferrous sulfate 325 mg 2 x daily x 1 month Recheck Hgb Irina Ricci DOWEL INSERTING MACHINE OPERATOR documented in this encounter Progress Notes Irina Ricci NP - 09/17/2018 1:00 PM CDT SUBJECTIVE: Alyssa Aguillon is a 43 year old female who presents to clinic today for the following health issues: ED/UC Followup: Facility: [facility] Date of visit: 09/16/18 Reason for visit: rt sided sciatica, left wrist pain and general weakness Current Status: still feeling the same as ER visit. Low Hgb, likely due to menorrhagia. Increased anxiety and depression due to recent stress at Home, declined serotonin specific reuptake inhibitor as did not want to gain weight. Additional history: as documented Reviewed and updated as needed this visit by clinical staff Tobacco Allergies Meds Med Hx Surg Hx Fam Hx Soc Hx Reviewed and updated as needed this visit by Provider Patient Active Problem List Diagnosis ??? CARDIOVASCULAR SCREENING; LDL GOAL LESS THAN 160 ??? Ovarian cyst ??? Menorrhagia ??? Abnormal Pap smear ??? Acute low back pain with disc symptoms, duration less than 6 weeks ??? Bulge of lumbar disc without myelopathy ??? Low back pain ??? Nausea ??? Other iron deficiency anemia ??? H/O LEEP ??? Panic attack ??? Situational depression ??? Overweight (BMI 25.0-29.9) Past Surgical History: Procedure Laterality Date ??? COLPOSCOPY CERVIX, LOOP ELECTRODE BIOPSY, COMBINED years ago, 8 years ago LEEP Social History Tobacco Use ??? Smoking status: Never Smoker ??? Smokeless tobacco: Never Used Substance Use Topics ??? Alcohol use: Yes Comment: rare Family History Problem Relation Age of Onset ??? Family History Negative Mother ??? Family History Negative Father ??? Family History Negative Sister 2 ??? Hypertension Daughter ??? Breast Cancer No family hx of ??? Cancer - colorectal No family hx of Current Outpatient Medications Medication Sig Dispense Refill ??? buPROPion (WELLBUTRIN XL) 150 MG 24 hr tablet Take 1 tablet (150 mg) by mouth every morning 90 tablet 1 BP Readings from Last 3 Encounters: 09/17/18 98/70 09/16/18 107/77 08/27/18 (!) 134/92 Wt Readings from Last 3 Encounters: 09/17/18 69.2 kg (152 lb 8 oz) 09/16/18 68 kg (150 lb) 08/27/18 68.9 kg (152 lb) ROS: CONSTITUTIONAL: NEGATIVE for fever, chills, change in weight ENT/MOUTH: NEGATIVE for ear, mouth and throat problems RESP: NEGATIVE for significant cough or SOB CV: NEGATIVE for chest pain, palpitations or peripheral edema GI: NEGATIVE for nausea, abdominal pain, heartburn, or change in bowel habits NEURO: NEGATIVE for paresthesias HEME/ALLERGY/IMMUNE: NEGATIVE for bleeding disorder, night sweats and weight loss PSYCHIATRIC: POSITIVE foranxiety, depressed mood and marital problems ROS otherwise negative OBJECTIVE: BP 98/70 (BP Location: Right arm, Patient Position: Sitting, Cuff Size: Adult Regular) Pulse 105 Temp 98.2 ??F (36.8 ??C) (Oral) Resp 16 Ht 1.626 m (5' 4) Wt 69.2 kg (152 lb 8 oz) LMP 09/09/2018 (Exact Date) SpO2 100% BMI 26.18 kg/m?? Body mass index is 26.18 kg/m??. GENERAL: alert PSYCH: mentation appears normal, tearful and anxious ASSESSMENT/PLAN: ICD-10-CM 1. Other iron deficiency anemia D50.8 Iron and iron binding capacity Ferritin 2. Situational depression F43.21 Patient Instructions OTC ferrous sulfate 325 mg 2 x daily x 1 month Recheck Hgb Irina Ricci DOWEL INSERTING MACHINE OPERATOR Irina Ricci, [facility] documented in this encounter Nursing Notes Karis Bhandari MA - 09/17/2018 1:00 PM CDT [facility] ER on 09/16/18 rt side sciatica, left wrist pain and general weakness - feeling off. documented in this encounter Plan of Treatment Not on filedocumented as of this encounter Procedures Procedure Name Priority Date/Time Associated Diagnosis Comme nts IRON AND IRON Routine 09/17/2018 1:28 PM Other iron Results for this BINDING CAPACITY CDT deficiency anemia proced ure are in the results section. FERRITIN Routine 09/17/2018 1:28 PM Other iron Results f or this CDT deficiency anemia procedure are in the results section. documented in this encounter Results (ABNORMAL) Ferritin (09/17/2018 1:28 PM CDT) P athologist Signature Ferritin 2 (L) 8 - 252 09/18/2018 [facility] ng/mL 10:51 AM CDT [facility] Specimen Anatomical Collection Method Collection Time Receive d Time (Source) Location / / Volume Laterality Blood specimen 09/17/2018 1:28 PM 019 1:34 (specimen) CDT PM CDT Irina Ricci NP LAB - BLOOD ORDERABLES Performing Organization Address City/State/ZIP Code Phon e Number [facility] [address] [place] [address] (ABNORMAL) Iron and iron binding capacity (09/17/2018 1:28 PM CDT) Analysis Performed At Patho logist Time Signature Iron 23 (L) 35 - 180 09/18/2018 [facility] ug/dL 10:47 AM CDT [facility] Iron Binding 414 240 - 430 09/18/2018 [place] Cap ug/dL 10:50 AM CDT [facility] Iron Saturation 6 (L) 15 - 46 % 09/18/2018 [place] Index 10:50 AM CDT [facility] Specimen Anatomical Collection Method Collection Time Receive d Time (Source) Location / / Volume Laterality Blood specimen 09/17/2018 1:28 PM 019 1:34 (specimen) CDT PM CDT Irina Ricci NP LAB - BLOOD ORDERABLES Performing Organization Address City/State/ZIP Code Phon e Number [facility] [address] [place] [phone] [facility] [address] [place], [place] [address] [facility] [address] [place] [address], [place] [phone] documented in this encounter Visit Diagnoses Diagnosis Other iron deficiency anemia - Primary Situational depression documented in this encounter Additional Health Concerns Assessment Noted Time PHQ-9 Depression Total Score: 12 09/17/2018 1:32 PM CD T documented as of this encounter Care Teams Picture Hanger Relationship Specialty Start Date End Date Clinic - [facility] PCP - General 09/16/18 [address] [place] [address] Raghu Freed PA-C Assigned PCP 06/07/18 09/19/18 [address] [place] [address] Irina Ricci NP Assigned PCP 09/20/18 01/30/19 [address] [place] [address] documented as of this encounter
--- OUTSIDE RECORDS SUMMARY | 2022-02-09 00:59 | XMS_ITS | Encounter Summary ---
:1975 Author Organization [facility] Address [address] [facility] [place] [address] Care Team Providers Name Role Phone [facility] Primary Care Provider Raghu Meadows AUTOMATIC WASHER MECHANIC Unavailable Encounter Details Date Type Department Care Team Description 12/16/2019 Travel Social History Tobacco Use Types Packs/Day [...] been in contact with No / Unsure 12/16/2019 8:50 AM CDT someone who was confirmed or suspected to have Coronavirus / COVID-19? documented as of this encounter Plan of Treatment Not on filedocumented as of this encounter Visit Diagnoses Not on filedocumented in this encounter Additional Health Concerns Assessment Noted Time PHQ-9 Depression Total Score: 12 09/17/2018 1:32 PM CD T documented as of this encounter Care Teams Auto Body Estimator Relationship Specialty Start Date End Date Clinic - [facility] PCP - General 09/16/18 [address] [place] [address] Raghu Meadows, AUTOMATIC WASHER MECHANIC Assigned PCP 09/19/19 12/18/[address] [place] [address] documented as of this encounter
--- OUTSIDE RECORDS SUMMARY | 2022-02-09 00:59 | XMS_ITS | Encounter Summary ---
:1975 Author Organization [facility] Address [address] [facility] [place] [address] Care Team Providers Name Role Phone [facility] Primary Care Provider Irina Ricci LEVEL DESIGNER Unavailable Encounter Details Date Type Department Care Team Description 11/25/2018 Travel Social History Tobacco Use Types Packs/Day [...] documented as of this encounter Care Teams Fiscal Technician Relationship Specialty Start Date End Date Clinic - [facility] PCP - General 09/16/18 [address] [place] [address] Irina Ricci, RODERICK Assigned PCP 09/20/18 01/30/19 [address] [place] [address] documented as of this encounter
--- OUTSIDE RECORDS SUMMARY | 2022-02-09 00:59 | XMS_ITS | Encounter Summary ---
:1975 Author Organization [facility] Address [address] [place] [address] Care Team Providers Name Role Phone [facility] Primary Care Provider Irina Ricci CORRECTIONS CASEWORKER Unavailable DoriRaghu carreon NON LICENSED NUCLEAR PLANT OPERATOR Unavailable Irina Ricci CORRECTIONS CASEWORKER Unavailable DoriRaghu carreon NON LICENSED NUCLEAR PLANT OPERATOR Unavailable Irina Ricci CORRECTIONS CASEWORKER Unavailable DoriRaghu carreon NON LICENSED NUCLEAR PLANT OPERATOR Unavailable Lily Rincon PA-C Unavailable Asha Urbina PA-C Unavailable Ingrid Gillespie NON LICENSED NUCLEAR PLANT OPERATOR Unavailable Rafaela Higuera PA-C Unavailable Ingrid Gillespie NON LICENSED NUCLEAR PLANT OPERATOR Unavailable Luis E Mtz MD Unavailable Meg Vigil PA-C Unavailable Reason for Visit Reason Onset Date Comments Outreach 11/26/2018 [facility] MAMMO- ATT 1 Outreach 12/04/2018 [facility] MAMMO- ATT 2 Encounter Details Date Type Department Care Team Description 11/26/[address] [facility] ([facility] MAMMO- Scheduling [facility] ATT 1); Outreach (VIP [address] [employer] [facility] MAMMO- ATT 2) [place] [address] [address] [phone] [place], [place] [phone] Social History Tobacco Use Types Packs/Day Years [...] on file documented as of this encounter Miscellaneous Notes Telephone Encounter - Sweetie Horne - 12/04/2018 6:15 PM CDT 12/04/2018 Attempt 2 Contacted patient in regards to scheduling VIP mammogram screening at [facility] on 12/07/18 Message on voicemail Outreach surgical schedulerDeana Telephone Encounter - Jailyn Freedman - 11/26/2018 10:13 AM CDT 11/26/2018 Attempt 1 Contacted patient in regards to scheduling VIP mammogram, [facility] for DEC 07. Message on [employer] Patient is also due for - Comments: Outreach Truck Shop Supervisor LR documented in this encounter Plan of Treatment Not on filedocumented as of this encounter Visit Diagnoses Not on filedocumented in this encounter Additional Health Concerns Infection Onset Date Last Indicated Resolved Time Rule Out COVID-19 11/10/2019 11/10/2019 11/10/2019 9:5 3 PM CDT Assessment Noted Time PHQ-9 Depression Total Score: 12 09/17/2018 1:32 PM CD T documented as of this encounter Care Teams Parachute Rigger Relationship Specialty Start Date End Date Clinic - [facility] PCP - General 09/16/18 [facility] [address] [place] [address] Irina Ricci, RODERICK Assigned PCP 09/20/18 01/30/19 [address] [place] [address] Raghu Meadows CNP Assigned PCP 01/31/19 02/06/[address] [place] [address] Irina Ricci NP Assigned PCP 02/07/19 03/06/19 [address] [place] [address] Raghu Meadows CNP Assigned PCP 03/07/19 03/13/[address] [place] [address] Irina Ricci NP Assigned PCP 03/14/19 09/18/19 [address] [place] [address] Raghu Meadows CNP Assigned PCP 09/19/19 12/18/[address] [place] [address] Lily Rincon PA-C Assigned PCP 12/19/19 08/12/20 [address] [facility] [address] [id number] Asha Urbina Assigned PCP 08/13/20 09/27/20 [address] [address] [place], [place] [phone] Ingrid Gillespie, NON LICENSED NUCLEAR PLANT OPERATOR Assigned PCP 09/28/20 12/30/[address] [place] [address] [phone] Rafaela Higuera Assigned PCP 12/31/20 9 [address] [place], [place] [phone] Ingrid Gillespie, NON LICENSED NUCLEAR PLANT OPERATOR Assigned PCP 01/28/[address] [place] [address] [phone] Luis E Mtz MD Assigned Surgical Provider 01/14/21 [address] [facility] [address] [place], [place] [phone] Meg Vigil, Assigned PCP 01/07/21 01/27/21 [address] [address] [place], [place] [phone] documented as of this encounter
--- OUTSIDE RECORDS SUMMARY | 2022-02-09 00:59 | XMS_ITS | Encounter Summary ---
:1975 Author Organization [facility] Address [address] [facility] [place] [address] Care Team Providers Name Role Phone [facility] Primary Care Provider Raghu Meadows NURSES SUPERVISOR Unavailable Encounter Details Date Type Department Care Team Description 11/10/2019 Travel Social History Tobacco Use Types Packs/Day [...] documented as of this encounter Care Teams Marketing Analyst Relationship Specialty Start Date End Date Clinic - [facility] PCP - General 09/16/18 [address] [place] [address] Raghu Meadows, LYUDMILA Assigned PCP 09/19/19 12/18/[address] [place] [address] documented as of this encounter
--- OUTSIDE RECORDS SUMMARY | 2022-02-09 00:59 | XMS_ITS | Encounter Summary ---
:1975 Author Organization [facility] Address [address] [facility] [place] [address] Support Name Relationship Address Phone Leanne Wu Unavailable Unavailable [phone] [place] [address], [facility] Team Providers Name Role Phone [facility] Primary Care Provider Lily Rincon PA-C Unavailable Reason for Referral Diagnostic Imaging XR (Routine) - Closed Specialty Diagnoses / Procedures Referred By Contact Refer red To Contact Radiology. Diagnoses Laryngeal injury, initial encounter Janes Corrigan Rh Xray Rscc Procedures XR Esophagram [address] [facility] [address] [place], [place] [phone] Fax: Referral ID Status Reason Start Date Expiration Date Visits Requ ested Visits Authorized [id number] Closed 06/19/2020 06/19/2021 1 1 CENTER ASSISTANT Reason for Visit Diagnostic Imaging XR (Routine) - Closed Specialty Diagnoses / Procedures Referred By Contact Refer red To Contact Radiology. Diagnoses Laryngeal injury, initial encounter Janes Corrigan Rh Xray Rscc Procedures XR Esophagram [address] [facility] [address] [place], [place] [phone] Fax: Referral ID Status Reason Start Date Expiration Date Visits Requ ested Visits Authorized [id number] Closed 06/19/2020 06/19/2021 1 1 Encounter Details Date Type Department Care Team Description 06/22/2020 [facility] MD Dirk initial encounter [address] [facility] [address] [place] [id number] Social History Tobacco Use Types Packs/Day Years [...] with No / Unsure 06/22/2020 10:21 AM CALL CENTER ASSISTANT someone who was confirmed or suspected to have Coronavirus / COVID-19? documented as of this encounter Plan of Treatment Not on filedocumented as of this encounter Procedures Procedure Name Priority Date/Time Associated Diagnosis Comme nts XR ESOPHAGRAM Routine 06/22/2020 11:00 AM Laryngeal injury, Re sults for this CALL CENTER ASSISTANT initial encounter procedure are in the results section . documented in this encounter Results XR Esophagram (06/22/2020 11:00 AM CALL CENTER ASSISTANT) Anatomical Region Laterality Modality Chest Radio Fluoroscopy Specimen (Source) Anatomical Location Collection Method / Collectio n Time Received Time / Laterality Volume Impressions 06/22/2020 11:40 AM CALL CENTER ASSISTANT IMPRESSION: Unremarkable double contrast esophagram. VIDAL CHENG MD Narrative 06/22/2020 11:40 AM CALL CENTER ASSISTANT XR ESOPHAGRAM ??06/22/2020 11:00 AM HISTORY: Laryngeal injury. Dysphagia. Ho arseness. COMPARISON: None. TECHNIQUE: Double contrast technique was used. 2.4 minutes of fluoroscopy time was utilized. A total o f 8 spot images and 1 cine clip were obtained. FINDINGS: Esophagus is normal in its consuelo iber, course and mucosal pattern. No esophageal ulcerations. No s trictures or obstructing lesions are evident. No significant esop hageal dysmotility is appreciated. There is no esophageal hiat al hernia. No gastroesophageal reflux was observed during the exam. Procedure Note Vidal Cheng MD - 06/22/2020Forma tting of this note might be different from the original. XR ESOPHAGRAM 06/22/2020 11:00 AM HISTORY: Laryngeal injury. Dysphagia. Ho arseness. COMPARISON: None. TECHNIQUE: Double contrast technique was used. 2.4 minutes of fluoroscopy time was utilized. A total o f 8 spot images and 1 cine clip were obtained. FINDINGS: Esophagus is normal in its consuelo iber, course and mucosal pattern. No esophageal ulcerations. No s trictures or obstructing lesions are evident. No significant esop hageal dysmotility is appreciated. There is no esophageal hiat al hernia. No gastroesophageal reflux was observed during the exam. IMPRESSION: Unremarkable double contrast esophagram. VIDAL CHENG MD Janes Corrigan MD IMG DIAGNOSTIC IMAGING ORDER ALICIA documented in this encounter Visit Diagnoses Diagnosis Laryngeal injury, initial encounter documented in this encounter Administered Medications Inactive Administered Medications - up to 3 most recent administrations Medication Order MAR Action Action Date Dose Rate Site barium sulfate (EZ PAQUE) oral Given 06/22/2020 11:02 AM CALL CENTER ASSISTANT 100 mLs suspension 96% 100 mL Oral, ONCE, On [place] 06/22/20 at 1130, For 1 dose barium sulfate (EZ-HD) oral suspension 98% Given 06/22 11:02 AM CALL CENTER ASSISTANT 100 mLs 100 mL Oral, ONCE, On [place] 06/22/20 at 1130, For 1 dose sod bicarbonate-citric acid-simethicone (EZ Given 06/22/2020 11: 02 AM CALL CENTER ASSISTANT 4 g GAS) 2.21-1.53-0.04 g packet 4 g 4 g, Oral, ONCE, On [place] 06/22/20 at 1130, For 1 dose documented in this encounter Additional Health Concerns Assessment Noted Time PHQ-9 Depression Total Score: 12 09/17/2018 1:32 PM CD T documented as of this encounter Care Teams Assisted Living Care Manager Relationship Specialty Start Date End Date Clinic - [facility] PCP - General 09/16/18 [address] [place] [address] Lily Rincon PA-C Assigned PCP 12/19/19 08/12/[address] [place] [address] [address] [id number] documented as of this encounter
--- OUTSIDE RECORDS SUMMARY | 2022-02-09 00:59 | XMS_ITS | Encounter Summary ---
:1975 Author Organization [place] Address [address] [place] [address] Care Team Providers Name Role Phone Clinic - [facility] Primary Care Provider Raghu Meadows CNP Unavailable Lily Rincon PA-C Unavailable Asha Urbina PA-C Unavailable Encounter Details Date Type Department Care Team Description 09/29/2019 [facility] Allie Diop MD [facility] OBGYN CONSULT [address] [place] [address] Preop testing [facility] Provider, Historical [facility] [address] Social History Tobacco Use Types Packs/Day Years [...] documented as of this encounter Care Teams Spring Layer Relationship Specialty Start Date End Date Clinic - [facility] PCP - General 09/16/18 [address] [place] [address] Raghu Meadows CNP Assigned PCP 09/19/19 12/18/19 [address] [place] [address] Lily Rincon PA-C Assigned PCP 12/19/19 08/12/20 [address] [facility] [address] Asha Urbina PA-C Assigned PCP 08/13/20 09/27/20 [address] [place] [address] documented as of this encounter
--- OUTSIDE RECORDS SUMMARY | 2022-02-09 00:59 | XMS_ITS | Encounter Summary ---
:1975 Author Organization [facility] Address [address] [place] [address] Care Team Providers Name Role Phone Raghu Freed PA-C Unavailable [phone] Clinic - [facility] Primary Care Provider Reason for Visit Reason Comments Joint Pain Encounter Details Date Type Department Care Team Description 09/16/2018 Emergency [facility] Valerie Aj Sciatica of right side; [facility] Emergency Dep karoline Sullivan MD Left wrist pain; [address] [facility] Generalized weakness; [place] Anemia, unspecified type [id number] [address] [facility] [address] [address] (Wo rk) Social History Tobacco Use Types [...] Sign Reading Time Taken Comments Blood Pressure 107/77 09/16/2018 10:00 AM CDT Pulse 65 09/16/2018 10:00 AM CDT Temperature 36.5 ??C (97.7 ??F) 09/16/2018 7:55 AM CDT Respiratory Rate 16 09/16/2018 10:28 AM CDT Oxygen Saturation 98% 09/16/2018 10:28 AM CDT Inhaled Oxygen Concentration - - Weight 68 kg (150 lb) 09/16/2018 7:55 AM CDT Height 162.6 cm (5' 4) 09/16/2018 7:55 AM CDT Body Mass Index 25.75 09/16/2018 7:55 AM CDT documented in this encounter Discharge Instructions AttachmentsThe following attachments cannot be sent through Care Everywhere. Pain, Acute, Uncertain Cause (Norwegian)BACK PAIN W/ SCIATICA (URDU)Weakness (Uncertain Cause) (Norwegian)Anemia (Norwegian)documented in this encounter Medications at Time of Discharge Medication Sig Dispensed Refills Start Date End Date buPROPion (WELLBUTRIN XL) Take 1 tablet (150 90 tablet 1 01/26/2019 150 MG 24 hr mg) by mouth every tabletIndications: morning Situational depression, Overweight (BMI 25.0-29.9) citalopram (CELEXA) 10 MG Take 1 tablet (10 30 tablet 3 09/17/2018 tabletIndications: mg) by mouth daily Depression, unspecified depression type documented as of this encounter ED Notes Meg Sahni RN - 09/16/2018 10:28 AM CDT Pt instructed to follow up with her PCP and return to ED if symptoms change, worsen. Pt verbalizes understanding. Zenobia Floyd - 09/16/2018 7:56 AM CDT Patient presents with joint pain, chills and fatigue. Patient states she was riding in a car to [place] when she developed right leg pain, right foot pain and left hand pain. Patient states she has now developed the shakes and more fatigue. No SOB. ABCDS intact, alert and oriented x 4. Valerie Aj MD - 09/16/2018 7:49 AM CDT History Chief Complaint: Joint Pain HPI Alyssa Aguillon is a 43 year old female who presents to the ED for evaluation of joint pain. The patient states that she developed a shooting pain from her right buttock down to the bottom of her right foot four days ago while she was driving to [place] for a graduation. Last night, she reports some difficulty holding a cup in addition to left wrist pain. This morning, she felt off at work, complaining that she felt cold, light headed, and exhausted so she left work early and presented to the ED. She notes that she has heavy menstrual periods and is just getting over her most recent menstrual period which could be contributing to her light headedness. She otherwise denies any back injuries/tra lashawn/surgeries, joint swelling, fevers, myalgias, chest pain, shortness of breath, palpitations, abdominal pain, or numbness. She also denies any tick exposure and has not been in any woody areas. She also denies any personal or family history of rheumatoid arthritis. 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 Allergies: Compazine Tamiflu Medications: Wellbutrin Celexa Past Medical History: Abnormal pap smear Anemia Menorrhagia, premenopausal Ovarian cyst Depression Past Surgical History: Colposcopy cervix, loop electrode biopsy Family History: HTN Social History: Negative for tobacco use. Negative for alcohol use. 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 Respiratory: Negative for shortness of breath. Cardiovascular: Negative for chest pain and palpitations. Gastrointestinal: Negative for abdominal pain. Musculoskeletal: Positive for arthralgias. Negative for joint swelling and myalgias. Neurological: Negative for numbness. All other systems reviewed and are negative. Physical Exam First Vitals: BP: (!) 164/110 Pulse: 65 Heart Rate: 87 Temp: 97.7 ??F (36.5 ??C) Resp: 18 Height: 162.6 cm (5' 4) Weight: 68 kg (150 lb) SpO2: 100 % Physical Exam General: Adult female sitting upright Eyes: PERRL, Conjunctive within normal limits ENT: Moist mucous membranes, oropharynx clear. CV: Normal S1S2, no murmur, rub or gallop. Regular rate and rhythm Resp: Clear to auscultation bilaterally, no wheezes, rales or rhonchi. Normal respiratory effort. GI: Abdomen is soft, nontender and nondistended. No palpable masses. No rebound or guarding. MSK: No edema. Back nontender. No palpable joint effusions or tenderness. Normal active range of motion. Skin: Warm and dry. No rashes or lesions or ecchymoses on visible skin. Neuro: Alert and oriented. Responds appropriately to all questions and commands. No focal findings appreciated. Normal muscle tone. Psych: Normal mood and affect. Pleasant. Emergency Department Course ECG: Indication: CV rule out Time: 0858 Vent. Rate 73 bpm. PA interval 144. QRS duration 86. QT/QTc 388/427. P-R-T axis 72 56 42. Normal sinus rhythm. Normal ECG. Read time: 903 Laboratory: CBC: WBC: 4.8, HGB: 8.4 (L), PLT: 312 BMP: Chloride 110 (H), o/w WNL (Creatinine: 0.68) Magnesium: 1.8 ESR: 17 TSH: 1.04 Lyme disease Regi with reflex to WB serum: pending Interventions: 0853 Advil 600 mg PO Emergency Department Course: Nursing notes and vitals reviewed. (812) I performed an exam of the patient as documented above. EKG obtained in the ED, see results above. IV inserted. Medicine administered as documented above. Blood drawn. This was sent to the lab for further testing, results above. I rechecked the patient and discussed the results of her workup thus far. Findings and plan explained to the Patient. Patient discharged home with instructions regarding supportive care, medications, and reasons to return. The importance of close follow-up was reviewed. I personally reviewed the laboratory results with the Patient and answered all related questions prior to discharge. Impression & Plan Medical Decision Making: Alyssa Aguillon is a 43 year old female with history of back pain and anemia who presents to the ED for concerns of buttock pain radiating to her right leg, as well as left wrist pain, and generalized weakness. No associated fevers. No infectious signs of symptoms on examination. She is neurovascularly intact. I feel these may be unrelated issues, however, I did screen with blood tests and inflammatory markers in the case of underlying rheumatologic condition. Her ESR was normal. There is no leukocytosis. She is anemic, and more so than in the past, but I do not have a recent hemoglobin earlier than a year ago. There is no indication for emergent transfusion or further emergent workup for this. Mauricio vo could factor into her weakness although this is generalized in nature and she is ambulatory and an otherwise well appearing adult. Thyroid screening was obtained and did not show any acute abnormalities. At this time there is no acute cause for her symptoms. I suspect iron deficiency but she should discuss this further with her PCP. I did consider other etiologies including Lyme disease as we are not in tick season but this is pending and my suspicion is low. Recommended outpatient evaluationwithin 3-5 days. Return immediately to the ED with worsening. All questions answered prior to discharge. Diagnosis: ICD-10-CM 1. Sciatica of right side M54.31 2. Left wrist pain M25.532 3. Generalized weakness R53.1 4. Anemia, unspecified type D64.9 Disposition: discharged to home Scribe Disclosure: I, Pablito Elias, am serving as a scribe on 09/16/2018 at 8:13 AM to personally document services performed by Valerie Aj MD based on my observations and the provider's statements to me. Pablito Elias 09/16/2018 [facility] EMERGENCY DEPARTMENT Valerie Aj MD 09/22/18 0400 documented in this encounter Plan of Treatment Not on filedocumented as of this encounter Procedures Procedure Name Priority Date/Time Associated Comments Diagnosis EKG 12-LEAD, TRACING STAT 09/16/2018 8:58 AM R esults for this ONLY CDT procedure are i n the results section. LYME DISEASE TOTAL ABS STAT 09/16/2018 8:46 AM Sciatica of right Results for this BLD WITH REFLEX TO CDT side procedure are in CONFIRM CLIA the results section. CBC WITH PLATELETS & STAT 09/16/2018 8:46 AM R esults for this DIFFERENTIAL CDT procedure are i n the results section. TSH WITH FREE T4 STAT 09/16/2018 8:46 AM Resul ts for this REFLEX CDT procedure are i n the results section. MAGNESIUM STAT 09/16/2018 8:46 AM Results f or this CDT procedure are i n the results section. ERYTHROCYTE STAT 09/16/2018 8:46 AM Results f or this SEDIMENTATION RATE CDT procedure are in AUTO the results section. BASIC METABOLIC PANEL STAT 09/16/2018 8:46 AM Results for this CDT procedure are i n the results section. documented in this encounter Results EKG 12 lead (09/16/2018 8:58 AM CDT) [facility] gist Method Time Signature Interpretation ECG Click View RADIOLOGY Image link RESULTS to view waveform and result Specimen (Source) Anatomical Collection Method Collection Time Re ceived Time Location / / Volume Laterality 09/16/2018 8:58 AM CDT Valerie Aj MD ECG ORDERABLES Performing Organization Address City/State/ZIP Code Phon e Number RADIOLOGY RESULTS Lyme Disease Regi with reflex to WB Serum (09/16/2018 8:46 AM CDT) athologist Signature Lyme Disease 0.11 0.00 - 09/16/2018 [facility] 0.89 4:50 PM CDT [facility] Comment: Negative, Absence of detectable Borrelia burdorferi antibodies. A negative result does not exclude the possibility of Borrelia burgdorferi infection. If early Lyme disease is suspected, a secon d sample should be collected and tested 2 to 4 weeks later. Specimen Anatomical Collection Method Collection Time Receive d Time (Source) Location / / Volume Laterality Blood specimen 09/16/2018 8:46 AM 019 8:57 (specimen) CDT AM CDT Valerie Aj MD LAB - BLOOD ORDERABLES Performing Organization Address City/State/ZIP Code Phon e Number [facility] [address] [place] [address] [facility] TSH with free T4 reflex (09/16/2018 8:46 AM CDT) athologist Signature TSH 1.04 0.40 - 4.00 09/16/2018 [place] [facility] mU/L 9:29 AM CDT HOSPITAL Specimen Anatomical Collection Method Collection Time Receive d Time (Source) Location / / Volume Laterality Blood specimen 09/16/2018 8:46 AM 019 8:57 (specimen) CDT AM CDT Valerie Aj MD LAB - BLOOD ORDERABLES Performing Organization Address City/State/ZIP Code Phon e Number M [facility] [address], [place] [address] [facility] [address], [place] [address], [facility] [phone] Erythrocyte sedimentation rate auto (09/16/2018 8:46 AM CDT) athologist Signature Sed Rate 17 0 - 20 mm/h 09/16/2018 [facility] 9:27 AM CDT HOSPITAL Specimen Anatomical Collection Method Collection Time Receive d Time (Source) Location / / Volume Laterality Blood specimen 09/16/2018 8:46 AM 019 8:57 (specimen) CDT AM CDT Valerie Aj MD LAB - BLOOD ORDERABLES Performing Organization Address City/[facility]/ZIP Code Phon e Number M [facility] [address], [place] [address] [facility] [address], [place] [address], [facility] [phone] Magnesium (09/16/2018 8:46 AM CDT) athologist Signature Magnesium 1.8 1.6 - 2.3 09/16/2018 [place] mg/dL 9:[address] [facility] Specimen Anatomical Collection Method Collection Time Receive d Time (Source) Location / / Volume Laterality Blood specimen 09/16/2018 8:46 AM 019 8:57 (specimen) CDT AM CDT Valerie Aj MD LAB - BLOOD ORDERABLES Performing Organization Address City/[facility]/ZIP Code Phon e Number M [facility] [address] [address] [facility] [address] [address], [place] [phone] (ABNORMAL) Basic metabolic panel (09/16/2018 8:46 AM CDT) athologist Signature Sodium 141 133 - 144 09/16/2018 [place] mmol/L 9:13 AM [facility] Potassium 3.9 3.4 - 5.3 09/16/2018 [place] mmol/L 9:13 AM [facility] Chloride 110 (H) 94 - 109 09/16/2018 [place] mmol/L 9:13 AM [facility] Carbon Dioxide 27 20 - 32 09/16/2018 [place] mmol/L 9:19 AM [facility] Anion Gap 4 3 - 14 09/16/2018 [place] mmol/L 9:19 AM [facility] Glucose 91 70 - 99 09/16/2018 [place] mg/dL 9:19 AM [facility] Urea Nitrogen 7 7 - 30 09/16/2018 [place] mg/dL 9:19 AM [facility] Creatinine 0.68 0.52 - 09/16/2018 [place] 1.04 mg/dL 9:19 AM [facility] GFR Estimate >90 >60 09/16/2018 [place] mL/min/{1. 9:19 AM [facility] 73_m2} HOSPITAL Comment: Non GFR Calc Starting 04/21/2018, serum creatinine ba sed estimated GFR (eGFR) will be calculated using the Chronic Kidney Dise [facility] Epidemiology Collaboration (CKD-EPI) equation. GFR Estimate If >90 >60 mL/min/{1.73_m2} 09/16/2018 9: 19 AM [facility] Comment: GFR Calc Starting 04/21/2018, serum creatinine ba sed estimated GFR (eGFR) will be calculated using the Chronic Kidney Dise [facility] Epidemiology Collaboration (CKD-EPI) equation. Calcium 8.5 8.5 - 10.1 mg/dL 09/16/2018 9:19 AM [facility] Specimen Anatomical Collection Method Collection Time Receive d Time (Source) Location / / Volume Laterality Blood specimen 09/16/2018 8:46 AM 019 8:57 (specimen) CDT AM CDT Valerie Aj MD LAB - BLOOD ORDERABLES Performing Organization Address City/State/ZIP Code Phon e Number M [facility] [address], [place] [address] [facility] [address] [place], [place] [address], [facility] [phone] [place] [address] [place] [address], [facility] (ABNORMAL) CBC with platelets differential (09/16/2018 8:46 AM [facility]) [facility] gist Method Time Signature WBC 4.8 4.0 - 09/16/2018 [facility] 11.0 9:01 AM [facility] 10e9/L [facility] RBC Count 3.92 3.8 - 5.2 09/16/2018 [facility] 10e12/L 9:01 AM [facility] Hemoglobin 8.4 (L) 11.7 - 09/16/2018 [facility] 15.7 g/dL 9:01 AM [facility] Hematocrit 28.8 (L) 35.0 - 09/16/2018 [facility] 47.0 % 9:01 AM [facility] MCV 74 (L) 78 - 100 09/16/2018 [facility] fl 9:01 AM [facility] MCH 21.4 (L) 26.5 - 09/16/2018 [facility] 33.0 pg 9:01 AM [facility] MCHC 29.2 (L) 31.5 - 09/16/2018 [facility] 36.5 g/dL 9:01 AM [facility] RDW 17.4 (H) 10.0 - 09/16/2018 [facility] 15.0 % 9:01 AM [facility] Platelet Count 312 150 - 450 09/16/2018 [facility] 10e9/L 9:01 AM [facility] Diff Method Automated 09/16/2018 [facility] Method 9:01 AM [facility] % Neutrophils 63.4 % 09/16/2018 [facility] 9:01 AM [facility] % Lymphocytes 25.5 % 09/16/2018 [facility] 9:01 AM [facility] % Monocytes 8.8 % 09/16/2018 [facility] 9:01 AM [facility] % Eosinophils 1.3 % 09/16/2018 [facility] 9:01 AM [facility] % Basophils 0.8 % 09/16/2018 [place] 9:01 AM [facility] % Immature 0.2 % 09/16/2018 [place] Granulocytes 9:01 AM [facility] Nucleated RBCs 0 0 /100 09/16/2018 [place] 9:01 AM [facility] Absolute 3.0 1.6 - 8.3 09/16/2018 [place] Neutrophil 10e9/L 9:01 AM [facility] Absolute 1.2 0.8 - 5.3 09/16/2018 [place] Lymphocytes 10e9/L 9:01 AM [facility] Absolute 0.4 0.0 - 1.3 09/16/2018 [place] Monocytes 10e9/L 9:01 AM [facility] Absolute 0.1 0.0 - 0.7 09/16/2018 [place] Eosinophils 10e9/L 9:01 AM [facility] Absolute 0.0 0.0 - 0.2 09/16/2018 [place] Basophils 10e9/L 9:01 AM [facility] Abs Immature 0.0 0 - 0.4 09/16/2018 [place] Granulocytes 10e9/L 9:01 AM [facility] Absolute 0.0 09/16/2018 [place] Nucleated RBC 9:01 AM [facility] Specimen Anatomical Collection Method Collection Time Receive d Time (Source) Location / / Volume Laterality Blood specimen 09/16/2018 8:46 AM 019 8:57 (specimen) CDT AM CDT Valerie Aj MD LAB - BLOOD ORDERABLES Performing Organization Address City/State/ZIP Code Phon e Number M [place] [address] [address] [facility] [address] [phone] documented in this encounter Visit Diagnoses Diagnosis Sciatica of right side Sciatica Left wrist pain Pain in joint, forearm Generalized weakness Other malaise and fatigue Anemia, unspecified type documented in this encounter Administered Medications Inactive Administered Medications - up to 3 most recent administrations Medication Order MAR Action Action Date Dose Rate Site ibuprofen (ADVIL/MOTRIN) tablet Given 09/16/2018 8:53 AM CDT 600 mg 600 mg 600 mg, Oral, ONCE, On Fri09/16/18 at 0845, For 1 dose, With crackers lidocaine (LMX4) cream Topical, EVERY 1 HOUR PRN, pain, with VA D insertion or accessing implanted port., Starting on Fri09/16/18 at 0828, Do NOT give if patient has a history of allergy to any local anesthetic or any yazmin prod uct. Apply at least 30 minutes prior to VAD insertion or port access. In divided dos es as needed for size of site for insertion with MAX Dose: 2.5 g (?? of 5 g tube) lidocaine 1 % 0.1-1 mL 0.1-1 mL, Other, EVERY 1 HOUR PRN, mild pain with VAD insertion., Starting on Fri09/16/18 at 0828, Do NOT give if patient has a history of allergy to any local anesthetic or any yazmin product. MAX dose 1 mL subcu taneous OR intradermal in divided doses as needed for VAD insertion. sodium chloride (PF) 0.9% PF flush 3 mL 3 mL, Intracatheter, EVERY 1 MIN PRN, li ne flush, for peripheral IV flush post IV meds, Starting on Fri09/16/18 at 0828 sodium chloride (PF) 0.9% PF flush 3 mL 3 mL, Intracatheter, EVERY 8 HOURS, Firs t dose on Fri09/16/18 at 0830, And Q1H PRN, to lock peripheral IV dormant line. documented in this encounter Active and Recently Administered Medications Times are shown in CDT. Scheduled Medication Order 09/14/2018 09/15/2018 09/16/2018 ibuprofen (ADVIL/MOTRIN) tablet 600 mg (COMPLETED) 0853 (Given - Provider: Abby Sanchez RN) 600 mg, Oral, ONCE, Fri09/16/18 at 0845, For 1 dose, With cracke rs sodium chloride (PF) 0.9% PF flush 3 mL 0830 (Canceled Entry - Provider: Orders Generic Provider - Comment: Automatically canceled at discontinue of medication order) 3 mL, Intracatheter, EVERY 8 HOURS, Firs t dose on Fri09/16/18 at 0830, And Q1H PRN, to lock peripheral IV dormant line. PRN Medication Order 09/14/2018 09/15/2018 09/16/2018 lidocaine (LMX4) cream Topical, EVERY 1 HOUR PRN, pain, with VA D insertion or accessing implanted port., Starting Fri09/16/18 at 0828, Do NOT give if patient has a history of allergy to any local anesthetic or any yazmin pro duct. Apply at least 30 minutes prior to VAD insertion or port access. In divided doses as needed for size of site for insertion with MAX Dose: 2.5 g (?? of 5 g tube) lidocaine 1 % 0.1-1 mL 0.1-1 mL, Other, EVERY 1 HOUR PRN, mild pain with VAD insertion., Starting Fri09/16/18 at 0828, Do NOT give if patient has a history of allergy to any local anesthetic or any yazmin product. MAX dose 1 mL subcutaneous OR intradermal in divided doses as needed for V AD insertion. sodium chloride (PF) 0.9% PF flush 3 mL 3 mL, Intracatheter, EVERY 1 MIN PRN, li ne flush, for peripheral IV flush post IV meds, Starting Fri09/16/18 at 0828 documented in this encounter Additional Health Concerns Assessment Noted Time PHQ-9 Depression Total Score: 12 08/27/2018 9:51 AM CD T documented as of this encounter Care Teams Casing Wringer Operator Relationship Specialty Start Date End Date Clinic - [facility] PCP - General 09/16/18 [address] [place] [address] Raghu Freed PA-C Assigned PCP 06/07/18 09/19/18 [address] [facility] [address] documented as of this encounter
--- OUTSIDE RECORDS SUMMARY | 2022-02-09 00:59 | XMS_ITS | Encounter Summary ---
:1975 Author Organization [facility] Address [address] [facility] [address] Care Team Providers Name Role Phone Raghu Freed PA-C Unavailable [phone] Clinic - [facility] Primary Care Provider Encounter Details Date Type Department Care Team Description 09/16/2018 Travel Social History Tobacco Use Types Packs/Day [...] documented as of this encounter Care Teams Animal Humane Agent Supervisor Relationship Specialty Start Date End Date [facility] - [facility] PCP - General 09/16/18 [address] [place] [address] Raghu Freed PA-C Assigned PCP 06/07/18 09/19/18 [address] [place] [address] documented as of this encounter
--- OUTSIDE RECORDS SUMMARY | 2022-02-09 00:59 | XMS_ITS | Encounter Summary ---
:1975 Author Organization [facility] Address [address] [facility] [place] [address] Care Team Providers Name Role Phone Clinic - [facility] Primary Care Provider Dori Raghu LOOM STARTER Unavailable Reason for Visit Reason Comments Vaginal Bleeding Encounter Details Date Type Department Care Team Description 11/02/2019 [facility] Aki Peters MD DUB ([facility] uterine bleeding) [address] [place], [place] [address] [email or web address] [phone] [place] [address] [place], [place] [id number] (Wo rk) Social History Tobacco Use Types [...] Sign Reading Time Taken Comments Blood Pressure 126/96 11/02/2019 9:45 AM CDT Pulse 73 11/02/2019 9:45 AM CDT Temperature 36.5 ??C (97.7 ??F) 11/02/2019 7:11 AM CDT Respiratory Rate 18 11/02/2019 7:11 AM CDT Oxygen Saturation 100% 11/02/2019 9:45 AM CDT Inhaled Oxygen Concentration - - Weight - - Height - - Body Mass Index - - documented in this encounter Discharge Instructions Discharge InstructionsGarry Peters MD - 11/02/2019 9:19 AM CDT Return to the ER if you are soaking through 1 overnight pad every hour for a few hours in a row or you develop new dizziness or worsening pain. Follow-up with your DISABILITY PROGRAM NAVIGATOR doctors today to schedule appointment/ultrasound. Take the oral contraceptive as prescribed. Discharge Instructions Vaginal Bleeding You were seen today for unusual vaginal bleeding. Heavy or irregular bleeding may be caused by many different things such as hormone changes, infection, control, or cancer. At this time your provider does not find that your bleeding is a sign of anything dangerous or life-threatening, and you have not lost enough blood to be dangerous. However, sometimes the signs of serious illness do not showup right away. If you have new or worse symptoms, you may need to be seen again in the Emergency Department or by your primary provider. Generally, every Emergency Department visit should have a follow-up clinic visit with either a primary or a specialty clinic/provider. Please follow-up as instructed by your emergency provider today. Return to the Emergency Department if: You feel lightheaded or faint. Your bleeding becomes much heavier than it is now. You have severe cramping or abdominal (belly) pain. You have any new or different symptoms. Treatment: Motrin?? or Advil?? (ibuprofen) can help relieve cramps and can also decrease bleeding. You may use this according to the directions on the package. Do not use a medicine that you are allergic to, or if your provider has told you not to use it. Hormone pills or control pills are occasionally prescribed to help control the bleeding but often this is left to an DISABILITY PROGRAM NAVIGATOR provider. These can cause problems if you have a history of blood clotsor stroke, so tell your provider if you have these problems before you leave. Iron tablets may be recommended if you have anemia (low blood count.) Iron can cause constipation, so be sure to have plenty of fiber in your diet and let your provider know if you have problems. Drinking plenty of fluid is important. Be sure to drink extra water or other healthy drinks. If you were given a prescription for [...] documented as of this encounter ED Notes Bhumi Sam RN - 11/02/2019 7:47 AM CDT Heavy vaginal bleeding with cramping and some clots that started during the night. She does feel lightheaded. She had surgery one month ago ABCs intact. Patient is alert and oriented x3. Garry Peters MD - 11/02/2019 7:10 AM CDT History Chief Complaint: Vaginal bleeding HPI Alyssa Aguillon is a 44 year old female who presents with vaginal bleeding. The patient states that she had a uterine ablation surgery last month and was having mild intermittent vaginal bleeding after the surgery. She states that the vaginal bleeding was getting better until this morning when she woke up with heavy vaginal bleeding. She also reports passing large clots and has soaked 3 pads since 0400. She is also feeling light headed, urinating more frequently, and has a headache. She has some associated intermittent pelvic cramping. She denies any cough, chest pain, shortness of breath, or diarrhea. The patient is not on hormones and follows up with Dr. Quick as her DISABILITY PROGRAM NAVIGATOR. Allergies: Compazine [Prochlorperazine] Tamiflu [Oseltamivir] Medications: wellbutrin Past Medical History: Anemia Past Surgical History: LEEP Uterine Ablation Family History: Family history reviewed. No pertinent family history. Social History: Smoking Status: Never Smoker Smokeless Tobacco: Never Used Alcohol Use: Yes Drug Use: No PCP: [facility] Review of Systems Respiratory: Negative for cough and shortness of breath. Cardiovascular: Negative for chest pain. Gastrointestinal: Negative for diarrhea. Genitourinary: Positive for frequency and vaginal bleeding. Neurological: Positive for light-headedness and headaches. All other systems reviewed and are negative. Physical Exam Patient Vitals for the past 24 hrs: BP Temp Temp src Heart Rate Resp SpO2 11/02/19 0713 115/85 -- -- -- -- -- 11/02/19 0711 -- 97.7 ??F (36.5 ??C) Oral 83 18 100 % Physical Exam VS: Reviewed per above HENT: Mucous membranes moist EYES: sclera anicteric CV: Rate as noted, regular rhythm. RESP: Effort normal. Breath sounds are normal bilaterally. GI: mild symmetric pelvic ttp without rebound/guarding, not distended. Chaperoned exam: Mild blood pooling of vaginal vault. Unable to visualize cervix as no longer speculums were available for use. NEURO: Alert, moving all extremities MSK: No deformity of the extremities SKIN: Warm and dry Emergency Department Course Laboratory: Laboratory findings were communicated with the patient who voiced understanding of the findings. ISTAT HCG quantitative POCT: <5.0 CBC: WBC 5.6, HGB 10.8 (L), PLT 342, o/w WNL BMP: Glucose 103 (H), o/w WNL (Creatinine: 0.78) INR: 0.96 UA with micro: Urine Blood large (A) Protein Albumin Urine 100 (A) Leukocyte esterase urine moderate(A) Bacteria few (A) WBC/HPF 12 (H) RBC/HPF 7 (H) Squamous epithelial/HPF urine 3 (H) Mucous urine present (A) o/w wnl/negative Urine culture: pending Interventions: 07 0.9% sodium chloride BOLUS 1000 mL IV 09 Tylenol 650 mg oral Emergency Department Course: Past medical records, nursing notes, and vitals reviewed. 07 I performed an exam of the patient as documented above. IV was inserted and blood was drawn for laboratory testing, results above. The patient provided a urine sample here in the emergency department. This was sent for laboratory testing, findings above. 08 I performed a chaperoned pelvic exam. [address] Guthrie of the DISABILITY PROGRAM NAVIGATOR service regarding patient's presentation, findings, and plan of care. Patient rechecked and updated. Findings and plan explained to the Patient. Patient discharged home with instructions regarding supportive care, medications, and reasons to return. The importance of close follow-up was reviewed. Thepatient was prescribed Ortho-Novum. Impression & Plan Medical Decision Making: Alyssa Aguillon is a 44 year old female who presents to the emergency department today with vaginal bleeding, mild pelvic cramping. On arrival vital signs are within normal limits. On exam she has mild symmetric pelvic tenderness without peritoneal signs. Based on symmetric nature of symptoms and exam, I have low suspicion for occult ovarian torsion. testing is negative thus occult ectopic is not likely. Hemoglobin is stable and exam shows evidence of mild vaginal bleeding but no signs of massive hemorrhage. Discussed with DISABILITY PROGRAM NAVIGATOR with plans for outpatient ultrasound and appointment within 1 to 2 days in their clinic. Also plan to start OCP to help with bleeding. Patient agreeable with this plan. Bleeding precautions were discussed prior to discharge. Discharge Diagnosis: ICD-10-CM 1. DUB (dysfunctional uterine bleeding) N93.8 Disposition: The patient is discharged to home. Discharge Medications: New Prescriptions NORETHINDRONE-ETHINYL ESTRADIOL (ORTHO-NOVUM) 1-35 MG-MCG TABLET Take 2 tablets daily until bleeding subsides, then take 1 tablet daily. Skip the placebo pills. Scribe Disclosure: Pawan Mccrary, am serving as a scribe at 7:20 AM on 11/02/2019 to document services personally performed by Garry Peters MD based on my observations and the provider's statements to me. 11/02/2019 Garry Peters MD Lindenbaum, Elan, MD 11/02/19 0929 documented in this encounter Miscellaneous Notes Result Encounter Note - Corona Kramer RN - 11/02/2019 10:02 AM CDT Final urine culture report is NEGATIVE per [facility] ED [facility] Result protocol. If NEGATIVE result, no change in treatment, per [facility] ED [facility] Result protocol. documented in this encounter Plan of Treatment Not on filedocumented as of this encounter Procedures Procedure Name Priority Date/Time Associated Comments Diagnosis ISTAT HCG Routine 11/02/2019 7:56 AM Results f or this QUANTITATIVE CDT procedure are i n POCT the results section. URINE CULTURE STAT 11/02/2019 7:50 AM DUB (dysfunctional Re sults for this CDT uterine bleeding) procedure are in the results section. CBC WITH PLATELETS & STAT 11/02/2019 7:46 AM R esults for this DIFFERENTIAL CDT procedure are i n the results section. ROUTINE UA WITH STAT 11/02/2019 7:46 AM Result s for this MICROSCOPIC CDT procedure are i n the results section. INR STAT 11/02/2019 7:46 AM Results f or this CDT procedure are i n the results section. BASIC METABOLIC PANEL STAT 11/02/2019 7:46 AM Results for this CDT procedure are i n the results section. documented in this encounter Results ISTAT HCG Quantitative POCT (11/02/2019 7:56 AM CDT) P athologist Signature HCG Quantitative <5.0 <5.0 IU/L 11/02/2019 POINT OF CAR E Serum 8:10 AM CDT TEST, HANDHELD METER Specimen Anatomical Collection Method Collection Time Receive d Time (Source) Location / / Volume Laterality 11/02/2019 7:56 AM 0 8:10 CDT AM CDT Garry Peetrs MD LAB - BEAKER POCT Performing Organization Address City/State/ZIP Code Phon e Number FV POINT OF CARE TEST, HANDHELD METER POINT OF CARE TEST, HANDHELD METER Urine Culture (11/02/2019 7:50 AM CDT) Component Value Ref Test Analysis Performed At [facility] Range Method Time Signature Specimen Midstream Urine INFECTIOUS Description DISEASES DIAGNOSTIC LABORATORY Special Specimen received 11/02/2019 INFECTIOUS Requests in preservative 11:06 AM DISEASES CDT DIAGNOSTIC LABORATORY Culture Micro <10,000 colonies/mL 11/03/2019 INFEC TIOUS urogenital khalida 7:05 AM CDT DISEASES Susceptibility testing not routinely done DIAGNOSTIC LABORATORY Specimen (Source) Anatomical Collection Method Collection Time Re ceived Time Location / / Volume Laterality Examination of 11/02/2019 7:50 11/02/2019 8:03 midstream urine AM CDT AM CDT specimen (procedure) Garry Peters MD LAB - MICRO GENERAL ORDERABL ES Performing Organization Address City/[facility] Phon e Number INFECTIOUS DISEASES [address] [place] [address] DIAGNOSTIC LABORATORY, [facility] INFECTIOUS DISEASES [address] [place] [address], [place] DIAGNOSTIC LABORATORY (ABNORMAL) UA with Microscopic (11/02/2019 7:46 AM CDT) [facility] gist Method Time Signature Color Urine Light Red 11/02/2019 [facility] 8:18 AM [facility] Appearance Urine Slightly 11/02/2019 [facility] Cloudy 8:18 AM [facility] Glucose Urine Negative NEG^Negat 11/02/2019 [place] debi mg/dL 8:18 AM [facility] Bilirubin Urine Negative NEG^Negat 11/02/2019 [facility] debi 8:18 AM [facility] Ketones Urine Negative NEG^Negat 11/02/2019 [place] debi mg/dL 8:18 AM [facility] Specific [place] 1.005 1.003 - 11/02/2019 [place] Urine 1.035 8:18 AM [facility] Blood Urine Large (A) NEG^Negat 11/02/2019 [place] debi 8:18 AM [facility] pH Urine 6.0 5.0 - 7.0 11/02/2019 [place] pH 8:18 AM [facility] Protein Albumin 100 (A) NEG^Negat 11/02/2019 [place] Urine debi mg/dL 8:18 AM [facility] Urobilinogen Normal 0.0 - 2.0 11/02/2019 [place] mg/dL mg/dL 8:18 AM [facility] Nitrite Urine Negative NEG^Negat 11/02/2019 [place] debi 8:18 AM [facility] Leukocyte Moderate (A) NEG^Negat 11/02/2019 [place] Esterase Urine debi 8:18 AM [facility] Source Midstream 11/02/2019 [place] Urine 7:46 AM [facility] WBC Urine 12 (H) 0 - 5 11/02/2019 [facility] /HPF 8:18 AM [facility] RBC Urine 7 (H) 0 - 2 11/02/2019 [place] /HPF 8:18 AM [facility] Bacteria Urine Few (A) NEG^Negat 11/02/2019 [place] debi /HPF 8:18 AM [facility] Squamous 3 (H) 0 - 1 11/02/2019 [place] Epithelial /HPF /HPF 8:18 AM [facility] Mucous Urine Present (A) NEG^Negat 11/02/2019 [place] debi /LPF 8:18 AM [facility] Specimen (Source) Anatomical Collection Method Collection Time Re ceived Time Location / / Volume Laterality Examination of 11/02/2019 7:46 11/02/2019 8:03 midstream urine AM [facility] specimen (procedure) Garry Peters MD LAB - URINE ORDERABLES Performing Organization Address City/State/ZIP Code Phon e Number M [facility] [address] [address] [facility] [address] [phone] INR (11/02/2019 7:46 AM CDT) athologist Signature INR 0.96 0.86 - 1.14 11/02/2019 [facility] 8:11 AM [facility] Specimen Anatomical Collection Method Collection Time Receive d Time (Source) Location / / Volume Laterality Blood specimen 11/02/2019 7:46 AM 020 7:59 (specimen) CDT AM CDT Garry Peters MD LAB - BLOOD ORDERABLES Performing Organization Address City/State/ZIP Code Phon e Number M [place] [address] [address] [place], [place] [address] [facility] [address] [place], [place] [address] [phone] (ABNORMAL) Basic metabolic panel (11/02/2019 7:46 AM CDT) athologist Signature Sodium 139 133 - 144 11/02/2019 [place] mmol/L 8:15 AM [facility] Potassium 4.0 3.4 - 5.3 11/02/2019 [place] mmol/L 8:15 AM [facility] Chloride 108 94 - 109 11/02/2019 [place] mmol/L 8:15 AM [facility] Carbon Dioxide 26 20 - 32 11/02/2019 [place] mmol/L 8:22 AM [facility] Anion Gap 5 3 - 14 11/02/2019 [place] mmol/L 8:22 AM [facility] Glucose 103 (H) 70 - 99 11/02/2019 [place] mg/dL 8:22 AM [facility] Urea Nitrogen 9 7 - 30 11/02/2019 [place] mg/dL 8:22 AM [facility] Creatinine 0.78 0.52 - 11/02/2019 [facility] 1.04 mg/dL 8:22 AM [facility] GFR Estimate >90 >60 11/02/2019 [place] mL/min/{1. 8:22 AM [facility] 73_m2} [facility] Comment: Non GFR Calc Starting 04/21/2018, serum creatinine ba sed estimated GFR (eGFR) will be calculated using the Chronic Kidney Dise ase Epidemiology Collaboration (CKD-EPI) equation. GFR Estimate If >90 >60 mL/min/{1.73_m2} 11/02/2019 8: 22 AM [facility] Comment: GFR Calc Starting 04/21/2018, serum creatinine ba sed estimated GFR (eGFR) will be calculated using the Chronic Kidney Dise [facility] Epidemiology Collaboration (CKD-EPI) equation. Calcium 9.1 8.5 - 10.1 mg/dL 11/02/2019 8:22 AM [facility] Specimen Anatomical Collection Method Collection Time Receive d Time (Source) Location / / Volume Laterality Blood specimen 11/02/2019 7:46 AM 020 7:59 (specimen) CDT AM CDT Garry Peters MD LAB - BLOOD ORDERABLES Performing Organization Address City/State/ZIP Code Phon e Number [place] [address] [address] [place] [address] [facility] [address] [phone] (ABNORMAL) CBC with platelets differential (11/02/2019 7:46 AM CDT) [facility] Method Time Signature WBC 5.6 4.0 - 11/02/2019 [facility] 11.0 8:03 AM [facility] 10e9/L [facility] RBC Count 4.64 3.8 - 5.2 11/02/2019 [facility] 10e12/L 8:03 AM [facility] Hemoglobin 10.8 (L) 11.7 - 11/02/2019 [facility] 15.7 g/dL 8:03 AM [facility] Hematocrit 36.8 35.0 - 11/02/2019 [facility] 47.0 % 8:03 AM [facility] MCV 79 78 - 100 11/02/2019 [place] fl 8:03 AM [facility] MCH 23.3 (L) 26.5 - 11/02/2019 [facility] 33.0 pg 8:03 AM [facility] MCHC 29.3 (L) 31.5 - 11/02/2019 [facility] 36.5 g/dL 8:03 AM [facility] RDW 16.3 (H) 10.0 - 11/02/2019 [facility] 15.0 % 8:03 AM [facility] Platelet Count 342 150 - 450 11/02/2019 [facility] 10e9/L 8:03 AM [facility] Diff Method Automated 11/02/2019 [facility] Method 8:03 AM [facility] % Neutrophils 69.8 % 11/02/2019 [facility] 8:03 AM [facility] % Lymphocytes 19.8 % 11/02/2019 [facility] 8:03 AM [facility] % Monocytes 8.7 % 11/02/2019 [facility] 8:03 AM [facility] % Eosinophils 0.7 % 11/02/2019 [facility] 8:03 AM [facility] % Basophils 0.5 % 11/02/2019 [facility] 8:03 AM [facility] % Immature 0.5 % 11/02/2019 [facility] Granulocytes 8:03 AM [facility] Nucleated RBCs 0 0 /100 11/02/2019 [facility] 8:03 AM [facility] Absolute 3.9 1.6 - 8.3 11/02/2019 [facility] Neutrophil 10e9/L 8:03 AM [facility] Absolute 1.1 0.8 - 5.3 11/02/2019 [facility] Lymphocytes 10e9/L 8:03 AM [facility] Absolute 0.5 0.0 - 1.3 11/02/2019 [facility] Monocytes 10e9/L 8:03 AM [facility] Absolute 0.0 0.0 - 0.7 11/02/2019 [facility] Eosinophils 10e9/L 8:03 AM [facility] Absolute 0.0 0.0 - 0.2 11/02/2019 [facility] Basophils 10e9/L 8:03 AM [facility] Abs Immature 0.0 0 - 0.4 11/02/2019 [facility] Granulocytes 10e9/L 8:03 AM [facility] Absolute 0.0 11/02/2019 [facility] Nucleated RBC 8:03 AM [facility] Specimen Anatomical Collection Method Collection Time Receive d Time (Source) Location / / Volume Laterality Blood specimen 11/02/2019 7:46 AM 020 7:59 (specimen) CDT [facility] MD LAB - BLOOD ORDERABLES Performing Organization Address City/State/ZIP Code Phon e Number M [facility] [address], [place] [address] [facility] [address] [place], [place] [address] [facility] [phone] documented in this encounter Visit Diagnoses Diagnosis DUB (dysfunctional uterine bleeding) Other disorder of menstruation and other abnormal bleeding from female genital tract documented in this encounter Administered Medications Inactive Administered Medications - up to 3 most recent administrations Medication Order MAR Action Action Date Dose Rate Site 0.9% sodium chloride BOLUS New Bag 11/02/2019 7:47 AM CDT 1,000 mLs 1000 mL/hr Intravenous, 1,000 mL, ONCE, at 1,000 mL/hr, Administer over 1 Hours, On Fri11/02/19 at 0729, For 1 dose acetaminophen (TYLENOL) tablet 650 mg Given 11/02/2019 9:01 AM CDT 650 mg 650 mg, Oral, ONCE, On Fri11/02/19 at 0850, For 1 dose, Maximum acetaminophen dose from all sources = 75 mg/kg/day not to exceed 4 grams/day. sodium chloride 0.9% infusion at 125 mL/hr, Intravenous, CONTINUOUS, A dminister after the bolus., Starting on Fri11/02/19 at 0829, Until Fri11/02/19 at 1203 documented in this encounter Active and Recently Administered Medications Times are shown in CDT. Scheduled Medication Order 10/31/2019 11/01/2019 11/02/2019 0.9% sodium chloride BOLUS (COMPLETED) 07 (New Bag - Provider: Bhumi Sam, DELLA)09 (Stopped - Provider: Bhumi Sam, RN) Intravenous, 1,000 mL, ONCE, at 1,000 mL /hr, Administer over 1 Hours, On Fri11/02/19 at 0729, For 1 dose acetaminophen (TYLENOL) tablet 650 mg (COMPLETED) 09 (Given - Provider: Bhumi Sam, RN) 650 mg, Oral, ONCE, Fri11/02/19 at 0850, For 1 dose, Maximum acetaminophen dose from all sources = 75 mg/kg/day not to exceed 4 grams/day. Continuous Medication Order 10/31/2019 11/01/2019 11/02/2019 sodium chloride 0.9% infusion 08 29 (Canceled Entry - Provider: Orders Generic Provider - Comment: Automatically canceled at discontinue of medication order) at 125 mL/hr, Intravenous, CONTINUOUS, A dminister after the bolus., Starting 11/02/19 at 0829, Until 11/02/19 at 1203 documented in this encounter Additional Health Concerns Assessment Noted Time PHQ-9 Depression Total Score: 12 09/17/2018 1:32 PM CD T documented as of this encounter Care Teams Heddler Tier Relationship Specialty Start Date End Date Clinic - [facility] PCP - General 09/16/18 [address] [place] [address] Raghu Meadows CNP Assigned PCP 09/19/19 12/18/19 [address] [place] [address] documented as of this encounter
--- OUTSIDE RECORDS SUMMARY | 2022-02-09 00:59 | XMS_ITS | Encounter Summary ---
:1975 Author Organization [facility] Address [address] [place] [address] Care Team Providers Name Role Phone Clinic - [facility] Primary Care Provider Raghu Meadows CNP Unavailable Lily Rincon PAYenniferC Unavailable Asha UrbinaC Unavailable Encounter Details Date Type Department Care Team Description 09/30/2019 [facility] Alee Piña, [facility] DELLA [place] [address] [place] [id number] Social History Tobacco Use Types Packs/Day Years [...] / COVID-19? documented as of this encounter Miscellaneous Notes Letter - Historical Provider - 10/19/2020 7:42 PM CDT Letter by Alee Piña RN at Author: Alee Piña RN Service: -- Author Type: -- Filed: Encounter Date: 09/30/2019 Status: (Other) 09/30/2019 Alyssa Aguillon [address] [place] [address] This letter provides a written record that you were tested for COVID-19 on 09/29/2019. Your result was negative. This means that we didnt find the virus that causes COVID-19 in your sample. A test may show negative when you do actually have the virus. This can happen when the virus is in the early stages of infection, before you feel illness symptoms. Even if you dont have symptoms, they may still appear. For safety, its very important to follow these rules. Keep yourself away from others (self-isolation): ?? Stay home. Dont go to work, school or anywhere else. ?? Stay in your own room (and use your own bathroom), if you can. ?? Stay away from others in your home. No hugging, kissing or shaking hands. No visitors. ?? Clean high touch surfaces often (doorknobs, counters, handles, etc.). Use a household cleaning spray or wipes. ?? Cover your mouth and nose with a mask, tissue or washcloth to avoid spreading germs. ?? Wash your hands and face often with soap and water. Stay in self-isolation until you meet ALL of the guidelines below: 1. You have had no fever for at least 72 hours (that is 3 full days of no fever without the use of medicine that reduces fevers), AND 2. other symptoms (such as cough, shortness of breath) have gotten better, AND 3. at least 10 days have passed since your symptoms first appeared. Going back to work Check with your employer for any guidelines to follow for going back to work. Employers: This document serves as formal notice that your employee tested negative for COVID-19, asof the testing date shown above. For questions regarding this letter or your Negative COVID-19 result, call [phone] between 8A to 6:30P (M-F) and 10A to 6:30P (weekends). documented in this encounter Plan of Treatment Not on filedocumented as of this encounter Visit Diagnoses Not on filedocumented in this encounter Additional Health Concerns Infection Onset Date Last Indicated Resolved Time Rule Out COVID-19 11/10/2019 11/10/2019 11/10/2019 9:5 3 PM CDT Assessment Noted Time PHQ-9 Depression Total Score: 12 09/17/2018 1:32 PM CD T documented as of this encounter Care Teams Terrazzo Journeyman Relationship Specialty Start Date End Date Clinic - [facility] PCP - General 09/16/18 [address] [place] [address] Raghu Meadows CNP Assigned PCP 09/19/19 12/18/19 [address] [place] [address] Lily Rincon PA-C Assigned PCP 12/19/19 08/12/[address] [place] [address] [place] [address] Asha Urbina PA-C Assigned PCP 08/13/20 09/27/20 [address] [place] [address] documented as of this encounter
--- OUTSIDE RECORDS SUMMARY | 2022-02-09 01:00 | XMS_ITS | Encounter Summary ---
:1975 Author Organization [place] Address [address] [place] [place] [address] Care Team Providers Name Role Phone No Ref-Primary, Physician Primary Care Provider [phone] Isis Grace PA-C Unavailable Isis Grace PA-C Unavailable [phone] Reason for Visit Diagnostic Imaging XR - Closed Specialty Diagnoses / Procedures Referred By Contact Refer red To Contact Diagnoses Persistent cough for 3 weeks or longer Tea Lennon Procedures XR Chest 2 Views MD Leanne [address] [place], [place] [address] Referral ID Status Reason Start Date Expiration Date Visits Requ ested Visits Authorized [id number] Closed 04/01/2018 04/01/2019 1 1 Encounter Details Date Type Department Care Team Description 04/01/2018 Radiant Appointment [facility] [place] Persistent cough Clinic [facility] for 3 weeks or [address] [facility] MD Leanne longer [place], [place] [address] [address] [place], [place] [phone] [address] Social History Tobacco Use Types Packs/Day Years [...] Priority Date/Time Associated Diagnosis Comme nts XR CHEST 2 VIEWS Routine 04/01/2018 6:05 PM Persistent cough f or Results for this MANAGER QUALITY IMPROVEMENT 3 weeks or longer procedure are in the results section. documented in this encounter Results XR Chest 2 Views (04/01/2018 6:05 PM MANAGER QUALITY IMPROVEMENT) Anatomical Region Laterality Modality Chest Computed Radiography Specimen (Source) Anatomical Location Collection Method / Collectio n Time Received Time / Laterality Volume Impressions 04/01/2018 6:25 PM MANAGER QUALITY IMPROVEMENT IMPRESSION: No acute abnormality. NAGA ANGULO MD Narrative 04/01/2018 6:25 PM MANAGER QUALITY IMPROVEMENT CHEST TWO VIEW ?? 04/01/2018 6:05 PM HISTORY: Persistent cough for 3 weeks or longer. COMPARISON: 07/02/2006. FINDINGS: The heart size is normal. The lungs are clear. No pneumothorax or pleural effusion. Procedure Note Naga Angulo MD - 04/01/2018Form atting of this note might be different from the original. CHEST TWO VIEW 04/01/2018 6:05 PM HISTORY: Persistent cough for 3 weeks or longer. COMPARISON: 07/02/2006. FINDINGS: The heart size is normal. The lungs are clear. No pneumothorax or pleural effusion. IMPRESSION: No acute abnormality. NAGA ANGULO MD Tea Lennon MD IMG DIAGNOSTIC IM AGING ORDERABLES documented in this encounter Visit Diagnoses Diagnosis Persistent cough for 3 weeks or longer documented in this encounter Care Teams Shake Packer Relationship Specialty Start Date End Date No Ref-Primary, Physician PCP - General 03/13/18 09/15/18 Isis Grace PA-C PCP - Assigned PCP 08/03/17 06/06/18 [address] [place] [address] Isis Grace PA-C Assigned PCP 08/03/17 06/06/18 [address] [place] [address] documented as of this encounter
--- OUTSIDE RECORDS SUMMARY | 2022-02-09 01:00 | XMS_ITS | Encounter Summary ---
:1975 Author Organization [place] Address [address] [facility] [place] [address] Care Team Providers Name Role Phone No Ref-Primary, Physician Primary Care Provider [phone] Raghu Freed PA-C Unavailable [phone] Encounter Details Date Type Department Care Team Description 08/26/2018 Travel Social History Tobacco Use Types Packs/Day [...] Diagnoses Not on filedocumented in this encounter Care Teams Food Service Supervisor Relationship Specialty Start Date End Date No Ref-Primary, Physician PCP - General 03/13/18 09/15/18 Raghu Freed PA-C Assigned PCP 06/07/18 09/19/18 [address] [place] [address] documented as of this encounter
--- OUTSIDE RECORDS SUMMARY | 2022-02-09 01:00 | XMS_ITS | Encounter Summary ---
:1975 Author Organization [place] Address [address] [facility] [address] Care Team Providers Name Role Phone Naidu Susie Lonny FOUR H CLUB AGENT Primary Care Provider Reason for Visit Reason Comments Urgent Care URI Friday stomach pain, fatigue , yesterday sore throat irritated and strep exposure Encounter Details Date Type Department Care Team Description 04/23/2017 Office Visit [facility] Alyssa Ang Throat p ain (Primary Dx); Urgent Care MD Shayy [id number] [place], [place] [address] [phone] Social History Tobacco Use Types Packs/Day Years [...] Sign Reading Time Taken Comments Blood Pressure 118/80 04/23/2017 5:26 PM DIRECTOR MEDICAL SCIENCE Pulse 87 04/23/2017 5:26 PM DIRECTOR MEDICAL SCIENCE Temperature 36.7 ??C (98 ??F) 04/23/2017 5:26 PM DIRECTOR MEDICAL SCIENCE Respiratory Rate 16 04/23/2017 5:26 PM DIRECTOR MEDICAL SCIENCE Oxygen Saturation 96% 04/23/2017 5:26 PM DIRECTOR MEDICAL SCIENCE Inhaled Oxygen Concentration - - Weight 73.9 kg (163 lb) 04/23/2017 5:26 PM DIRECTOR MEDICAL SCIENCE Height - - Body Mass Index 27.98 12/10/2016 2:41 PM CDT documented in this encounter Patient Instructions Patient InstructionsAlyssa Ang MD - 04/23/2017 5:53 PM CST Images from the original note were not included. * FOOD POISONING or VIRAL GASTROENTERITIS (6yr-Adult) FOOD POISONING may occur from 6 to 24 hours after eating food that has spoiled and lasts up to1-2 days. VIRAL GASTRO-ENTERITIS is commonly known as the stomach flu and may last 2-7 days. Symptoms of both illnesses may include vomiting, diarrhea, fever, abdominal cramping. Antibiotics are not effective, but simple home treatment will be helpful. HOME CARE: ?? If symptoms are severe, rest at home for the next 24 hours. ?? Avoid tobacco and alcohol. These may worsen your symptoms. ?? If medicines for diarrhea (low dose of Immodium: one tablet a day for an adult) or vomiting were prescribed, take only as directed. During the first??12 to 24??hours follow the diet below: ?? DRINKS: Sport drinks like Gatorade, soft drinks without caffeine; hong andreina, mineral water (plain or flavored), decaffeinated tea and coffee. ?? SOUPS: Clear broth, consomm?? and bouillon ?? DESSERTS: Plain gelatin (Jell-O), popsicles and fruit juice bars. During the next 24 hours you may add the following to the above: ?? Hot cereal, plain toast, bread, rolls, crackers ?? Plain noodles, rice, mashed potatoes, chicken noodle or rice soup ?? Unsweetened canned fruit (avoid pineapple), bananas ?? Limit fat intake to less than 15 grams per day by avoiding margarine, butter, oils, mayonnaise, sauces, gravies, fried foods, peanut butter, meat, poultry and fish. ?? Limit fiber; avoid raw or cooked vegetables, fresh fruits (except bananas) and bran cereals. ?? Limit caffeine and chocolate. No spices or seasonings except salt. Slowly go back to a normal diet as you feel better and your symptoms lessen. FOLLOW UP with your doctor as advised if you are not better in 2 days. If a stool (diarrhea) sample was taken, you may call in 2 days (or as directed) for the results. GET PROMPT MEDICAL ATTENTION if any of the following occur: ?? Increasing abdominal pain or constant pain in one spot ?? Continued vomiting (unable to keep liquids down) ?? Frequent diarrhea (more than 5 times a day) ?? Blood in vomit or stool (black or red color) ?? Unable to take in fluids at all ?? No urine output for 12 hours or extreme thirst ?? Weakness, dizziness, fainting ?? Drowsiness, confusion, stiff neck or seizure ?? Fever over 101.0?? F (38.3?? C) for more than 3 days ?? New rash ?? [id number] [employer]. [address] [place] [address]. All rights reserved. This information is not intended as a substitute for professional medical care. Always follow your healthcare professional's instructions. This information has been modified by your health care provider with permission from the publisher. [employer] documented in this encounter Progress Notes Alyssa Ang MD - 04/23/2017 5:10 PM CST SUBJECTIVE: Chief Complaint Patient presents with ??? Urgent Care ??? URI Friday stomach pain, fatigue, yesterday sore throat irritated and strep exposure Alyssa Aguillon is a 41 year old female whose symptoms began 4 days ago and include abdominal paingeneralized, cramping, chills, sweats and cough, sore throat. Patient denies diarrhea Symptoms are gradual onset, still present and worsening and moderate. 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 Abnormal Pap smear 8 yrs ago, 09/2010 ASCUS-H ??? Anemia ??? Menorrhagia, premenopausal 2010 ??? Streptococcal sore throat required hospitalization 1 yr ago ALLERGIES: Compazine [prochlorperazine] and Tamiflu [oseltamivir] Current Outpatient Prescriptions on File Prior to Visit: phentermine 15 MG capsule Take 1 capsule (15 mg) by mouth every morning No current facility-administered medications on file prior to visit. Social History Substance Use Topics ??? Smoking status: Never Smoker ??? Smokeless tobacco: Never Used ??? Alcohol use Yes Comment: rare Family History Problem Relation Age of Onset ??? Family History Negative Mother ??? Family History Negative Father ??? Family History Negative Sister 2 ??? Breast Cancer No family hx of ??? Cancer - colorectal No family hx of ROS: INTEGUMENTARY/SKIN: NEGATIVE for worrisome rashes, moles or lesions EYES: NEGATIVE for vision changes or irritation ENT/MOUTH: NEGATIVE for ear, mouth and throat problems RESP:NEGATIVE for significant cough or SOB OBJECTIVE: BP 118/80 Pulse 87 Temp 98 ??F (36.7 ??C) (Oral) Resp 16 Wt 163 lb (73.9 kg) SpO2 96% BMI 27.98 kg/m2 GENERAL APPEARANCE: fatigued, alert and mild distress EYES: EOMI, PERRL, conjunctiva clear HENT: ear canals and TM's normal. Nose and mouth without ulcers, erythema or lesions NECK: supple, nontender, no lymphadenopathy RESP: lungs clear to auscultation - no rales, rhonchi or wheezes CV: regular rates and rhythm, normal S1 S2, no murmur noted ABDOMEN: soft, mild, diffuse generalized tenderness, no HSM or masses and bowel sounds active Extremities: Motor, sensation intact, Normal ROM NEURO: Normal strength and tone, sensory exam grossly normal, normal speech and mentation SKIN: no suspicious lesions or rashes Results for orders placed or performed in visit on 04/23/17 Strep, Rapid Screen Result Value Ref Range Specimen Description Throat Rapid Strep A Screen NEGATIVE: No Group A streptococcal antigen detected by immunoassay, await culture report. ASSESSMENT: Throat pain - Strep, Rapid Screen - Beta strep group A culture Gastroenteritis - ondansetron (ZOFRAN ODT) 4 MG ODT tab; Take 1-2 tablets (4-8 mg) by mouth 3 times daily (before meals) Diet: small amounts clear fluids frequently,soups,juices,water,advance diet as tolerated Rest as much as possible. Patient was advised to go to the ER if there is persistent vomiting and unable to keep down liquids and/or severe weakness/ listlessness. Follow-up with PCP if not improving Advise careful hand washing to reduce the risk of passing the illness to others in close contact [employer] documented in this encounter Nursing Notes Concepción Aj MA - 04/23/2017 5:10 PM CST Chief Complaint Patient presents with ??? Urgent Care ??? URI Friday stomach pain, fatigue, yesterday sore throat irritated and strep exposure Initial BP 118/80 Pulse 87 Temp 98 ??F (36.7 ??C) (Oral) Resp 16 Wt 163 lb (73.9 kg) SpO2 96% BMI 27.98 kg/m2 Estimated body mass index is 27.98 kg/(m^2) as calculated from the following: Height as of 17: 5' 4 (1.626 m). Weight as of this encounter: 163 lb (73.9 kg). Medication Reconciliation: complete Concepción Aj MATE SHIP [employer] documented in this encounter Plan of Treatment Not on filedocumented as of this encounter Procedures Procedure Name Priority Date/Time Associated Diagnosis Comme nts BETA HEMOLYTIC Routine 04/23/2017 6:22 PM Throat pain Results for this STREP GROUP A DIRECTOR MEDICAL SCIENCE procedure are in CULTURE the results section. RAPID STREP SCREEN Routine 04/23/2017 5:58 PM Throat pain Res ults for this THROAT SWAB DIRECTOR MEDICAL SCIENCE procedure are i n the results section. documented in this encounter Results Beta strep group A culture (04/23/2017 6:22 PM DIRECTOR MEDICAL SCIENCE) Component Value Ref Test Analysis Performed At [facility] Method Time Signature Specimen Throat [facility] Culture Micro No beta 04/24/2017 [place] hemolytic 4:26 PM DIRECTOR MEDICAL SCIENCE CLINICS Streptococcus CAMILLA Group A isolated Specimen Anatomical Collection Method Collection Time Receive d Time (Source) Location / / Volume Laterality Specimen from 04/23/2017 6:22 PM 04/23/20 17 6:23 throat DIRECTOR MEDICAL SCIENCE PM DIRECTOR MEDICAL SCIENCE (specimen) Alyssa Ang MD LAB - MICRO GENERAL ORDERABL ES Performing Organization Address City/State/ZIP Code Phon e Number [facility] [id number] [facility] [place] [address] Strep, Rapid Screen (04/23/2017 5:58 PM DIRECTOR MEDICAL SCIENCE) Component Value Ref Test Analysis Performed At [facility] Range Method Time Signature Specimen Throat [facility] Rapid Strep A NEGATIVE: No 04/23/2017 [place] Screen Group A 6:13 PM DIRECTOR MEDICAL SCIENCE [facility] streptococcal CAMILLA antigen detected by immunoassay, await culture report. Specimen Anatomical Collection Method Collection Time Receive d Time (Source) Location / / Volume Laterality Specimen from 04/23/2017 5:58 PM 04/23/20 17 5:59 throat DIRECTOR MEDICAL SCIENCE PM DIRECTOR MEDICAL SCIENCE (specimen) Alyssa Ang MD LAB - MICRO GENERAL ORDERABL ES Performing Organization Address City/State/ZIP Code Phon e Number [facility] [id number] [facility] [place] [address] documented in this encounter Visit Diagnoses Diagnosis Throat pain - Primary Gastroenteritis Other and unspecified noninfectious johanny roenteritis and colitis documented in this encounter Care Teams Tar Worker Relationship Specialty Start Date End Date Susie Naidu NP PCP - General Nurse Practitioner - Family 03/18/16 documented as of this encounter
--- OUTSIDE RECORDS SUMMARY | 2022-02-09 01:00 | XMS_ITS | Encounter Summary ---
:1975 Author Organization [place] Address [address] [place] [address] Care Team Providers Name Role Phone Susie Naidu FISHER DIVING Primary Care Provider Reason for Visit Reason Onset Date Comments Refill Request 10/24/2016 phentermine 15 MG ca psule Encounter Details Date Type Department Care Team Description 10/24/2016 Refill M [facility] Susie Naidu, FISHER DIVING Refill Request Clinic [facility] (phentermine 15 MG [address] [facility] capsule) [place], [place] [address] [place] [address] [place] [address] [phone] (Wo rk) Social History Tobacco Use Types [...] this encounter Miscellaneous Notes Telephone Encounter - Etta Lozano - 10/24/2016 4:49 PM CDT phentermine 15 MG capsule Patient is down to 2 pills so pls fill and fax before the weekend Last Written Prescription Date: 09/24/16 Last Fill Quantity: 30, # refills: 0 Last Office Visit with [facility], [facility] or [facility] prescribing provider: 07/31/16 notes said RTC 1 month soI notified her that appt might be required and if so we would call back to let her know documented in this encounter Plan of Treatment Not on filedocumented as of this encounter Visit Diagnoses Diagnosis Overweight documented in this encounter Care Teams Public Health Nutritionist Relationship Specialty Start Date End Date Susie Naidu FISHER DIVING PCP - General Nurse Practitioner - Family 03/18/16 documented as of this encounter
--- OUTSIDE RECORDS SUMMARY | 2022-02-09 01:00 | XMS_ITS | Encounter Summary ---
:1975 Author Organization [place] Address [address] [facility] [place] [address] Care Team Providers Name Role Phone Clinic - [facility] Primary Care Provider No Ref-Primary, Physician Primary Care Provider [phone] Isis Grace PA-C Unavailable [phone] Isis Grace PA-C Unavailable [phone] Reason for Visit Reason Onset Date Comments Appointment 02/03/2018 overdue for pap/hpv Encounter Details Date Type Department Care Team Description 02/03/2018 Telephone [facility] - Appointmen t (overdue Clinic [facility] for pap/hpv) [address] [place] [address] [facility] [address] [place], [place] [phone] [address] Social History Tobacco Use Types Packs/Day Years [...] this encounter Miscellaneous Notes Telephone Encounter - Ana Wei, RN - 02/03/2018 4:24 PM CDT Pt is past due for, f/u pap smear/HPV test. 1 reminder letter sent previously. Left msg today for patient to call clinic to schedule. If no reply and/or appt within two weeks (02/17/18) patient will be considered lost to pap tracking f/u. JEAN MARIE RodriguezN, RN, Pap Tracking Nurse documented in this encounter Plan of Treatment Not on filedocumented as of this encounter Visit Diagnoses Not on filedocumented in this encounter Care Teams Order Expediter Relationship Specialty Start Date End Date Clinic - [facility] PCP - General 12/10/17 03/12/18 [place] [address] [place], [place] [id number] No Ref-Primary, Physician PCP - General 03/13/18 09/15/18 Isis Grace PA-C PCP - Assigned PCP 08/03/17 06/06/18 [address] [place] [address] Isis Grace PA-C Assigned PCP 08/03/17 06/06/18 [address] [place] [address] documented as of this encounter
--- OUTSIDE RECORDS SUMMARY | 2022-02-09 01:00 | XMS_ITS | Encounter Summary ---
:1975 Author Organization [place] Address [address] [facility] [place] [address] Care Team Providers Name Role Phone Susie Naidu Lonny BDR Primary Care Provider Reason for Visit Reason Onset Date Comments No Show 03/04/2017 Encounter Details Date Type Department Care Team Description 03/04/2017 Office Visit [facility] Jocy Bowen NO SHOW (Primary Dx) Clinic [place] [address] ENGINEER [address] [place] [address] [facility], [address] [place], [place] [address] [place] [address] (Wo rk) [address] [phone] Social History Tobacco Use Types Packs/Day Years [...] documented as of this encounter Progress Notes Nahomy Cordova - 03/04/2017 10:20 AM CDT HPI ROS Physical Exam Linda Pollard MA - 03/04/2017 9:40 AM CDT This patient was a no show for this scheduled appointment. documented in this encounter Plan of Treatment Not on filedocumented as of this encounter Visit Diagnoses Diagnosis NO SHOW - Primary documented in this encounter Care Teams Bisque Cleaner Relationship Specialty Start Date End Date Susie Naidu, BDR PCP - General Nurse Practitioner - Family 03/18/16 documented as of this encounter
--- OUTSIDE RECORDS SUMMARY | 2022-02-09 01:00 | XMS_ITS | Encounter Summary ---
:1975 Author Organization [place] Address [address] [facility] [place] [address] Care Team Providers Name Role Phone Clinic - [facility] Primary Care Provider Isis Grace PA-C Unavailable [phone] Isis Grace PA-C Unavailable Reason for Visit Reason Onset Date Comments Refill Request 01/19/2018 phentermine 37.5 MG capsule Encounter Details Date Type Department Care Team Description 01/19/2018 Refill M [facility] Bhumi Wild R efdelilah Request Clinic [facility] (phentermine 37.[address] capsule) [place], [place] [address] [phone] Social History Tobacco Use Types Packs/Day Years [...] this encounter Miscellaneous Notes Telephone Encounter - Bree George - 01/20/2018 4:50 PM CDT Rx approved, fax to the [phone]. lvm to inform patient Rx was sent over to the pharmacy. Bree George Graphics Programmer Telephone Encounter - Eleonora Campo RN - 01/20/2018 1:14 PM CDT Pt called back and states that she was under the impression that the discussion was for 2 months (december and January) and then she would stop. Per the OV notes it does note this as well. Please advise Eleonora Campo RN, BSN Telephone Encounter - Whitney Morales RN - 01/20/2018 1:10 PM CDT LM for call back - See notes below from July and December OV Whitney Morales RN Note from 07/29/17 - phentermine 30 MG capsule; Take 1 capsule (30 mg) by mouth every morning Dispense: 30 capsule; Refill: 1 ?? encouraged her to slowly eliminate phentermine and go it alone. Has done well with weight loss. Note from Dec 17 . Weight gain - she is requesting refills of phentermine, discussed that we typically don't use thismedication for someone just in the overweight category. She has previously been told she could have a refill on this medication, so will give her 2 months. Encouraged her to continue on with her diet and exercise. - phentermine 37.5 MG capsule; Take 1 capsule (37.5 mg) by mouth every morning Dispense: 30 capsule;Refill: 0 Telephone Encounter - Bhumi Wild MD - 01/20/2018 12:59 PM CDT Refills not appropriate [facility] Telephone Encounter - Abebe Cai - 01/20/2018 11:36 AM CDT SEE 01/19/2018 ENCOUNTER Abebe Trell XRT Telephone Encounter - Yumiko Edmondson RN - 01/19/2018 7:58 PM CDT Clinic Action Needed:Yes, please follow up with Alyssa regarding: Reason for Call: Alyssa went to [facility] in [place] to cigar packer and picker an Rx for phentermine. See note below. Although it appears that it's in the process of being ordered, nothing has been signed or faxed to pharmacy. Advised pharmacist that PCP care team will need to follow up on this tomorrow during clinic hours, unable to address at after hours from call center. Please return call to Alyssa to let he know status of her refill request. Thank you. Routed to: [facility] Yumiko Edmondson RN [facility] Telephone Encounter - Eleonora Campo RN - 01/19/2018 2:22 PM CDT RX monitoring program ([place]) reviewed: RN ENT reviewed- no concerns [place] profile: [email or web address] 2. Weight gain - she is requesting refills of phentermine, discussed that we typically don't use this medication for someone just in the overweight category. She has previously been told she could havea refill on this medication, so will give her 2 months. Encouraged her to continue on with her diet and exercise. - phentermine 37.5 MG capsule; Take 1 capsule (37.5 mg) by mouth every morning Dispense: 30 capsule;Refill: 0 Telephone Encounter - Abebe Cai - 01/19/2018 2:17 PM CDT Controlled Substance Refill Request for phentermine 37.5 MG capsule Problem List Complete: No PROVIDER TO CONSIDER COMPLETION OF PROBLEM LIST AND OVERVIEW/CONTROLLED SUBSTANCE AGREEMENT Last Written Prescription Date: 12/17/2017 Last Fill Quantity: 30 CAPSULE, # refills: 0 Last Office Visit with G primary care provider: 12/17/2017 Future Office visit: Controlled substance agreement on file: No. Processing: Fax Rx to [facility] pharmacy RN ENT checked in past 3 months? No, route to DELLA Cai XRT documented in this encounter Plan of Treatment Not on filedocumented as of this encounter Visit Diagnoses Diagnosis Weight gain Abnormal weight gain documented in this encounter Care Teams Brick Baker Relationship Specialty Start Date End Date Clinic - [facility] PCP - General 12/10/17 03/12/18 [facility] [id number] [place] [address] Isis Grace PA-C PCP - Assigned PCP 08/03/17 06/06/18 [address] [place] [address] Isis Grace PA-C Assigned PCP 08/03/17 06/06/18 [address] [place] [address] documented as of this encounter
--- OUTSIDE RECORDS SUMMARY | 2022-02-09 01:00 | XMS_ITS | Encounter Summary ---
:1975 Author Organization [place] Address [address] [facility] [place] [address] Care Team Providers Name Role Phone Clinic - [facility] Primary Care Provider Isis Grace PA-C Unavailable Isis Grace PA-C Unavailable [phone] Reason for Referral Mental Health Outpatient - Closed Specialty Diagnoses / Procedures Referred By Contact Refer red To Contact Diagn[place] [address] [place] [address] Referral ID Status Reason Start Date Expiration Date Visits Requ ested Visits Authorized [id number] Closed 12/17/2017 12/17/2018 1 1 Reason for Visit Reason Comments Bloated Encounter Details Date Type Department Care Team Description 12/17/2017 Office Visit [facility] Bhumi Wild d abdomen (Primary Dx); Clinic Moshe Sahni MD Weight gain; [address] [facility] [address] [address] Panic attack; [place], [place] [address] Acute pain of right knee [address] [phone] Social History Tobacco Use Types Packs/Day Years [...] Sign Reading Time Taken Comments Blood Pressure 110/60 12/17/2017 1:40 PM CDT Pulse 79 12/17/2017 1:40 PM CDT Temperature 36.8 ??C (98.3 ??F) 12/17/2017 1:40 PM CDT Respiratory Rate 16 12/17/2017 1:40 PM CDT Oxygen Saturation 100% 12/17/2017 1:40 PM CDT Inhaled Oxygen Concentration - - Weight 66.2 kg (145 lb 14.4 oz) 12/17/2017 1:40 PM CDT Height 162.6 cm (5' 4) 12/17/2017 1:40 PM CDT Body Mass Index 25.04 12/17/2017 1:40 PM CDT documented in this encounter Progress Notes Bhumi Wild MD - 12/17/2017 1:20 PM CDT SUBJECTIVE: Alyssa Aguillon is a 42 year old female who presents to clinic today for the following health issues: ABDOMINAL PAIN BLOATING ?? Onset: 4-5 months has worsened but on and off for a couple yrs ?? Description: Character: Fullness Location: generalized Radiation: None ?? Intensity: mild, moderate ?? Progression of Symptoms: worsening and more frequent ?? Accompanying Signs & Symptoms: Fever/Chills?: no Gas/Bloating: YES Nausea: no Vomitting: no Diarrhea?: no Constipation:YES- once in awhile but all and all has gotten better Dysuria or Hematuria: no ?? History: Trauma: no Previous similar pain: no Previous tests done: none ?? Precipitating factors: Does the pain change with: Food: YES- certain food make it worse and certain days BM: no Urination: no ?? Alleviating factors: None ?? Therapies Tried and outcome: walk ?? LMP: 12/08/2017 Having intermittent bloating for the past several years, worse over the past 4-5 months. Reports shehas been trying for weight loss over the past 4-5 months, cutting out on carbohydrates. Increasing protein, veggies, fruits. Mostly daily soft brown bowel movements but can become constipated and not pass stool for 2-3 days at a time on occasion. No report of indigestion, heartburn, belching. Hit her right lateral knee while she was cleaning her home. Has been having pain in that area ever since. Does not feel weak in the leg. After she hit her knee and on a few different occasions she feels like she has had panic attacks. She has a sense of impending doom, sensation of throat closing, shortness of breath. She wonders what she should do regarding this. Problem list and histories reviewed & adjusted, as indicated. Additional history: none Patient Active Problem List Diagnosis ??? CARDIOVASCULAR SCREENING; LDL GOAL LESS THAN 160 ??? Ovarian cyst ??? Menorrhagia ??? Abnormal Pap smear ??? Acute low back pain with disc symptoms, duration less than 6 weeks ??? Bulge of lumbar disc without myelopathy ??? Low back pain ??? Nausea ??? Other iron deficiency anemia ??? H/O LEEP ??? Panic attack Past Surgical History: Procedure Laterality Date ??? COLPOSCOPY CERVIX, LOOP ELECTRODE BIOPSY, COMBINED years ago, 8 years ago LEEP Social History Substance Use Topics ??? Smoking status: Never Smoker ??? Smokeless tobacco: Never Used ??? Alcohol use Yes Comment: rare Family History Problem Relation Age of Onset ??? Family History Negative Mother ??? Family History Negative Father ??? Family History Negative Sister 2 ??? Hypertension Daughter ??? Breast Cancer No family hx of ??? Cancer - colorectal No family hx of Reviewed and updated as needed this visit by clinical staff Tobacco Allergies Meds Med Hx Surg Hx Fam Hx Soc Hx Reviewed and updated as needed this visit by Provider ROS: Constitutional, HEENT, cardiovascular, pulmonary, gi and gu systems are negative, except as otherwise noted. OBJECTIVE: BP 110/60 (BP Location: Right arm, Patient Position: Chair, Cuff Size: Adult Regular) Pulse 79 Temp 98.3 ??F (36.8 ??C) (Oral) Resp 16 Ht 5' 4 (1.626 m) Wt 145 lb 14.4 oz (66.2 kg) LMP 12/08/2017 (Approximate) SpO2 100% ? No BMI 25.04 kg/m2 Body mass index is 25.04 kg/(m^2). GENERAL: healthy, alert and no distress RESP: lungs clear to auscultation - no rales, rhonchi or wheezes CV: regular rate and rhythm, normal S1 S2, no S3 or S4, no murmur, click or rub, no peripheral edemaand peripheral pulses strong ABDOMEN: soft, nontender, no hepatosplenomegaly, no masses and bowel sounds normal MS: normal right knee and thigh exam NEURO: Normal strength and tone, mentation intact and speech normal PSYCH: mentation appears normal, affect normal/bright Diagnostic Test Results: none ASSESSMENT/PLAN: 1. Bloated abdomen - discussed her lack of dietary fiber, encouraged Metamucil or Benefiber supplement to help with her abdominal bloating. This does not appear to be an increased acid production issue. Is still passing stools are not obstructive issue. She is not having any focal abdominal pain so less likely inflammatory bowel or genitourinary issue. 2. Weight gain - she is requesting [...] mouth every morning Dispense: 30 capsule;Refill: 0 3. Panic attack - suggested therapy consultation to investigate cognitive behavior therapy. - MENTAL HEALTH REFERRAL - Adult; Outpatient Treatment; Individual/Couples/Family/Group Therapy/Health Psychology; [facility]: [facility] ; We will contact you to schedule the ap pointment or please call with any questions 4. Acute pain of right knee - exam normal today, advised to monitor Bhumi Wild MD [facility] documented in this encounter Nursing Notes Eliza Moran - 12/17/2017 1:20 PM CDT Pt is aware she is due for pap documented in this encounter Plan of Treatment Scheduled Referrals Name Type Priority Associated Diagnoses Order [facility] MENTAL HEALTH REFERRAL - Referral Routine Panic attack Ord ered: 12/17/2017 Adult; Outpatient Treatment; Individual/Couples/Family/ Group Therapy/Health Psychology; [facility]: [facility] ; We will contact you to schedule the appointment or please call with any questions documented as of this encounter Visit Diagnoses Diagnosis Bloated abdomen - Primary Flatulence, eructation, and gas pain Weight gain Abnormal weight gain Panic attack Panic disorder without agoraphobia Acute pain of right knee documented in this encounter Care Teams International Sales Representative Relationship Specialty Start Date End Date Clinic - [facility] PCP - General 12/10/17 03/12/18 [place] [address] [place] [address] Isis Grace PA-C PCP - Assigned PCP 08/03/17 06/06/18 [address] [place] [address] Isis Grace PA-C Assigned PCP 08/03/17 06/06/18 [address] [place] [address] documented as of this encounter
--- OUTSIDE RECORDS SUMMARY | 2022-02-09 01:00 | XMS_ITS | Encounter Summary ---
:1975 Author Organization [place] Address [address] [place] [address] Care Team Providers Name Role Phone Susie Naidu VMWARE CONSULTANT Primary Care Provider Reason for Visit Reason Onset Date Comments Formulary Issue 12/23/2016 phentermine 15 MG ca psule Encounter Details Date Type Department Care Team Description 12/23/2016 Telephone [facility] Susie Naidu NP Formulary Issue [facility] (phentermine 15 MG [address] [facility] capsule) [place], [place] [address] [address] [address] [address] [phone] (Wo rk) Social History Tobacco Use Types [...] this encounter Miscellaneous Notes Telephone Encounter - Susie Naidu NP - 12/27/2016 7:55 AM CDT I am not surprised it isn't covered. No further steps needed. Telephone Encounter - Abebe Cai - 12/26/2016 3:19 PM CDT PA denied. Has not been on a weight loss regimen for at least 6 months, which would include a low calorie diet, increase physical activity and behavior changes. Abebe Cai XRT Telephone Encounter - Abebe Cai - 12/23/2016 7:39 AM CDT PA submitted thru covermymeds for phentermine 15 MG capsule [employer] at [phone], Option 5. Abebe Cai XRT documented in this encounter Plan of Treatment Not on filedocumented as of this encounter Visit Diagnoses Not on filedocumented in this encounter Care Teams Scoop Machine Operator Relationship Specialty Start Date End Date Susie Naidu NP PCP - General Nurse Practitioner - Family 03/18/16 documented as of this encounter
--- OUTSIDE RECORDS SUMMARY | 2022-02-09 01:00 | XMS_ITS | Encounter Summary ---
:1975 Author Organization [place] Address [address] [facility] [place] [address] Care Team Providers Name Role Phone Susie Naidu Lonny SOFTWARE SECURITY CONSULTANT Primary Care Provider Reason for Visit Reason Onset Date Comments Patient Request 05/01/2017 Phenermine Encounter Details Date Type Department Care Team Description 05/01/2017 [facility] Jocy Bowen Patient Request Clinic [place] KARAN Dean MANDARIN CHINESE TEACHER (Phenermine) [address] [place] [address] [address] [place] [address] [place], [place] [phone] (Wo rk) [address] [phone] Social History Tobacco Use Types Packs/Day Years [...] this encounter Miscellaneous Notes Telephone Encounter - Janelle Meraz RN - 05/06/2017 9:41 AM CST Left a detailed message on voice mail to call the clinic back and schedule a phone visit. Janelle Meraz RN F WRITER Telephone Encounter - Jocy Bowen APRN CNP - 05/02/2017 3:56 PM STAFF WRITER If she can't come in we can do a phone visit. Please offer phone visit for next week. Jocy Bowen CNP F WRITER Telephone Encounter - Janelle Meraz RN - 05/02/2017 2:32 PM CST Spoke with patient. She states that she was under the impression that she would be able to just get 1 more refill which would then put her at the 3 month milly of being on medication. She states that she will follow up with an appointment next month to assess how the 3 months of being on the medicationwent. Please review and advise. Janelle Meraz RN F WRITER Telephone Encounter - Jocy Bowen APRN CNP - 05/02/2017 2:18 PM STAFF WRITER Should be seen in clinic to assess weight. Please offer visit for next week. Jocy Bowen CNP F WRITER Telephone Encounter - Skylar Gil RN - 05/02/2017 1:57 PM CST Pt called in to check status of below. Will route to PCP to review. She is hoping to get an answer before the weekend if possible. Thanks. Skylar Gil RN -- [facility] F WRITER Telephone Encounter - Bhumi Taylor I - 05/01/2017 2:10 PM CST Reason for call: Other Patient called regarding (reason for call): Patient called requesting a refill on her Phenermine. Patient stated she wasn't sure if she needed to come in for an office visit or if she could make another telephone visit with Jocy Bowen. Please call patient to discuss. Additional comments: none Phone number to reach patient: Cell number on file: Telephone Information: Best Time: anytime Can we leave a detailed message on this number? YES F WRITER documented in this encounter Plan of Treatment Not on filedocumented as of this encounter Visit Diagnoses Not on filedocumented in this encounter Care Teams Osteopathic Neurologist Relationship Specialty Start Date End Date Susie Naidu SOFTWARE SECURITY CONSULTANT PCP - General Nurse Practitioner - Family 03/18/16 documented as of this encounter
--- OUTSIDE RECORDS SUMMARY | 2022-02-09 01:00 | XMS_ITS | Encounter Summary ---
:1975 Author Organization [place] Address [address] [facility] [place] [address] Care Team Providers Name Role Phone Susie Naidu Lonny GIS SPECIALIST Primary Care Provider Reason for Visit Reason Onset Date Comments Refill Request 04/04/2017 Encounter Details Date Type Department Care Team Description 04/04/2017 Refill [facility] Jocy Bowen, Refill Request [address] [place] [address] [place] [address] [phone] Social History Tobacco Use Types Packs/Day Years [...] this encounter Miscellaneous Notes Telephone Encounter - Erica Stone RN - 04/07/2017 11:06 AM CST Called patient and scheduled phone visit for today at 1:40 pm. Erica Stone RN ICAL RESEARCH TECHNICIAN Telephone Encounter - Jocy Bowen APRN CNP - 04/04/2017 12:40 PM CHEMICAL RESEARCH TECHNICIAN Needs visit to see how weight is doing. Can do a phone visit. Jocy Bowen CNP ICAL RESEARCH TECHNICIAN Telephone Encounter - Teri Paniagua - 04/04/2017 11:54 AM CHEMICAL RESEARCH TECHNICIAN Phntermine 15 MG capsule Last Written Prescription Date: Last Fill Quantity: 30, # refills: 0 Last Office Visit with [facility] prescribing provider: 03/07/2017 Future Office visit: Wt Readings from Last 3 Encounters: 03/07/17 163 lb (73.9 kg) 12/10/16 156 lb (70.8 kg) 07/31/16 163 lb 9.6 oz (74.2 kg) BP Readings from Last 3 Encounters: 03/07/17 132/75 12/10/16 130/80 07/31/16 120/70 Routing refill request to provider for review/approval because: Drug not on the [facility] or [facility] refill protocol or controlled substance Carlos Arcelia Terrazzo Finisher 04/04/17 11:55 AM ICAL RESEARCH TECHNICIAN documented in this encounter Plan of Treatment Not on filedocumented as of this encounter Visit Diagnoses Diagnosis Overweight documented in this encounter Care Teams Floral Designer Relationship Specialty Start Date End Date Susie Naidu NP PCP - General Nurse Practitioner - Family 03/18/16 documented as of this encounter
--- OUTSIDE RECORDS SUMMARY | 2022-02-09 01:00 | XMS_ITS | Encounter Summary ---
:1975 Author Organization [place] Address [address] [place] [address] Care Team Providers Name Role Phone Susie Naidu ELECTRONIC PARTS DESIGNER Primary Care Provider Reason for Visit Reason Comments Fatigue Encounter Details Date Type Department Care Team Description 12/10/2016 Office Visit [facility] Susie Naidu, Perezu e, unspecified type (Primary Dx); [facility] ELECTRONIC PARTS DESIGNER Overweight [address] [facility] [address] [phone] [facility] [place] [address] Social History Tobacco Use Types Packs/Day Years [...] Sign Reading Time Taken Comments Blood Pressure 130/80 12/10/2016 2:41 PM CDT Pulse 102 12/10/2016 2:41 PM CDT Temperature 36.4 ??C (97.6 ??F) 12/10/2016 2:41 PM CDT Respiratory Rate 16 12/10/2016 2:41 PM CDT Oxygen Saturation 96% 12/10/2016 2:41 PM CDT Inhaled Oxygen Concentration - - Weight 70.8 kg (156 lb) 12/10/2016 2:41 PM CDT Height 162.6 cm (5' 4) 12/10/2016 2:41 PM CDT Body Mass Index 26.78 12/10/2016 2:41 PM CDT documented in this encounter Progress Notes Susie Naidu, RODERICK - 12/10/2016 2:30 PM CDT SUBJECTIVE: Alyssa Aguillon is a 41 year old female who presents to clinic today for the following health issues: Here with complaints of nausea, body aches, headaches and generalized fatigue for the past three weeks. Single mother with four children. Has some challenges with her 20 year old son who is in trouble with the law. 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 Patient states stressors are just more recent. Eating some but appetite is less than normal. Tearful and just not feeling well. History of anemia and is wanting labs checked. Has to move out of her house unexpectedly as well. Problem list and histories reviewed & adjusted, [...] Other iron deficiency anemia ??? H/O LEEP Past Surgical History: Procedure Laterality Date ??? [...] updated as needed this visit by clinical staffTobacco Allergies Meds Med Hx Surg Hx Fam Hx Soc Hx Reviewed and updated as needed this visit by Provider ROS: Constitutional, HEENT, cardiovascular, pulmonary, gi and gu systems are negative, except as otherwise noted. OBJECTIVE: BP 130/80 (BP Location: Right arm, Patient Position: Chair, Cuff Size: Adult Regular) Pulse 102 Temp 97.6 ??F (36.4 ??C) (Oral) Resp 16 Ht 5' 4 (1.626 m) Wt 156 lb (70.8 kg) LMP 12/03/2016 SpO2 96% ? No BMI 26.78 kg/m2 Body mass index is 26.78 kg/(m^2). GENERAL: healthy, alert and no distress RESP: lungs clear to auscultation - no rales, rhonchi or wheezes CV: regular rate and rhythm, normal S1 S2, no S3 or S4, no murmur, click or rub, no peripheral edemaand peripheral pulses strong ABDOMEN: soft, nontender, no hepatosplenomegaly, no masses and bowel sounds normal PSYCH: mentation appears normal, affect normal/bright. tearful Results for orders placed or performed in visit on 12/10/16 (from the past 24 hour(s)) CBC with platelets Result Value Ref Range WBC 9.7 4.0 - 11.0 10e9/L RBC Count 3.88 3.8 - 5.2 10e12/L Hemoglobin 10.3 (L) 11.7 - 15.7 g/dL Hematocrit 31.8 (L) 35.0 - 47.0 % MCV 82 78 - 100 fl MCH 26.5 26.5 - 33.0 pg MCHC 32.4 31.5 - 36.5 g/dL RDW 14.0 10.0 - 15.0 % Platelet Count 313 150 - 450 10e9/L ASSESSMENT/PLAN: 1. Overweight Will renew phentermine to help with weight loss. - phentermine 15 MG capsule; Take 1 capsule (15 mg) by mouth every morning Dispense: 30 capsule; Refill: 0 2. Fatigue, unspecified type Will check labs to rule out anemia ad thyroid concern. Likely related to stress. - CBC with platelets - Iron and iron binding capacity - TSH Follow up in one month. Susie Naidu NP [facility] documented in this encounter Nursing Notes Tuan Meraz CMA - 12/10/2016 2:30 PM CDT Chief Complaint Patient presents with ??? Fatigue Initial BP 130/80 (BP Location: Right arm, Patient Position: Chair, Cuff Size: Adult Regular) Pulse 102 Temp 97.6 ??F (36.4 ??C) (Oral) Resp 16 Ht 5' 4 (1.626 m) Wt 156 lb (70.8 kg) LMP 12/03/2016 SpO2 96% ? No BMI 26.78 kg/m2 Estimated body mass index is 26.78 kg/(m^2)as calculated from the following: Height as of this encounter: 5' 4 (1.626 m). Weight as of this encounter: 156 lb (70.8 kg). Medication Reconciliation: rishi Meraz CMA documented in this encounter Plan of Treatment Not on filedocumented as of this encounter Procedures Procedure Name Priority Date/Time Associated Diagnosis Comme nts TSH Routine 12/10/2016 3:02 PM Fatigue, unspecified R esults for this CDT type procedure are i n the results section. IRON AND IRON Routine 12/10/2016 3:02 PM Fatigue, unspecified Results for this BINDING CAPACITY CDT type procedure a re in the results section. CBC WITH PLATELETS Routine 12/10/2016 3:02 PM Fatigue, unspeci fied Results for this CDT type procedure are i n the results section. documented in this encounter Results TSH (12/10/2016 3:02 PM CDT) athologist Signature TSH 1.45 0.40 - 4.00 [facility] mU/L [facility] Specimen Anatomical Collection Method Collection Time Receive d Time (Source) Location / / Volume Laterality Blood specimen 12/10/2016 3:02 PM 017 3:07 (specimen) CDT PM CDT Susie Naidu NP LAB - BLOOD ORDERABLES Performing Organization Address City/State/ZIP Code Phon e Number [facility] [address] [place] [address] Iron and iron binding capacity (12/10/2016 3:02 PM CDT) athologist Signature Iron 71 35 - 180 [place] ug/dL [facility] Iron Binding 400 240 - 430 [place] Cap ug/dL [facility] Iron Saturation 18 15 - 46 % [facility] Specimen Anatomical Collection Method Collection Time Receive d Time (Source) Location / / Volume Laterality Blood specimen 12/10/2016 3:02 PM 017 3:07 (specimen) CDT PM CDT Susie Naidu NP LAB - BLOOD ORDERABLES Performing Organization Address City/State/ZIP Code Phon e Number [facility] [address] [address] [facility] [address] [address], [place] [phone] (ABNORMAL) CBC with platelets (12/10/2016 3:02 PM CDT) athologist Signature WBC 9.7 4.0 - 11.0 [place] 10e9/L [facility] RBC Count 3.88 3.8 - 5.2 [place] 10e12/L [facility] Hemoglobin 10.3 (L) 11.7 - 15.7 [place] g/dL [facility] Comment: Reviewed: OK with previous Hematocrit 31.8 (L) 35.0 - 47.0 % [facility] MCV 82 78 - 100 fl [facility] MCH 26.5 26.5 - 33.0 pg [facility] MCHC 32.4 31.5 - 36.5 g/dL [place] [facility] RDW 14.0 10.0 - 15.0 % [facility] Platelet Count 313 150 - 450 10e9/L [facility] Specimen Anatomical Collection Method Collection Time Receive d Time (Source) Location / / Volume Laterality Blood specimen 12/10/2016 3:02 PM 017 3:07 (specimen) CDT PM CDT Susie Naidu NP LAB - BLOOD ORDERABLES Performing Organization Address City/State/ZIP Code Phon e Number [facility] [id number] [place] [address] documented in this encounter Visit Diagnoses Diagnosis Fatigue, unspecified type - Primary Overweight documented in this encounter Care Teams Flight Surveyor Relationship Specialty Start Date End Date Susie Naidu, ELECTRONIC PARTS DESIGNER PCP - General Nurse Practitioner - Family 03/18/16 documented as of this encounter
--- OUTSIDE RECORDS SUMMARY | 2022-02-09 01:00 | XMS_ITS | Encounter Summary ---
:1975 Author Organization [place] Address [address] [facility] [place] [address] Care Team Providers Name Role Phone Susie Naidu DEBONING TEAM LEADER Primary Care Provider Reason for Visit Reason Comments Recheck Medication Encounter Details Date Type Department Care Team Description 07/29/[address] [facility] [place], Overweight [place] Isis Edwards PA-C [phone] [place] [address] [phone] (Wo rk) Social History Tobacco Use Types [...] Sign Reading Time Taken Comments Blood Pressure 120/80 07/29/2017 9:27 AM CDT Pulse 80 07/29/2017 9:27 AM CDT Temperature 36.7 ??C (98 ??F) 07/29/2017 9:27 AM CDT Respiratory Rate - - Oxygen Saturation 99% 07/29/2017 9:27 AM CDT Inhaled Oxygen Concentration - - Weight 67.5 kg (148 lb 12.8 oz) 07/29/2017 9:27 AM CDT Height 162.6 cm (5' 4) 07/29/2017 9:27 AM CDT Body Mass Index 25.54 07/29/2017 9:27 AM CDT documented in this encounter Patient Instructions Patient InstructionsAaIsis Chacon PA-C - 07/29/2017 9:15 AM CDT (E66.3) Overweight Comment: doing very well. Has lost 13 pounds since 06/05/17 Plan: phentermine 30 MG capsule Please take : Multivitamin Probiotic: bifido or acidophilus Magnolia 3: 1 g/day fish oil supplement (that would contain between 200 to 800 mg of EPA+DHA, dependingon the formulation) or one to two servings per week of oily fish [22]. Vitamin D3 5,000 units daily throughout the winter Magnesium glycinate 200 - 300 mg [employer]: Products and podcasts documented in this encounter Progress Notes Isis Grace PA-C - 07/29/2017 9:15 AM CDT SUBJECTIVE: Alyssa Aguillon is a 41 year old female who presents to clinic today for the following health issues: Medication Followup of phentermine ?? Taking Medication as prescribed: yes ?? Side Effects: None ?? Medication Helping Symptoms: yes Has lost 13 pounds with eliminating gluton and processed foods. Goal is 140 pounds. Problem list and histories reviewed & adjusted, as indicated. Additional history: as documented Current Outpatient Prescriptions Medication Sig Dispense Refill ??? phentermine 30 MG capsule Take 1 capsule (30 mg) by mouth every morning 30 capsule 1 BP Readings from Last 3 Encounters: 07/29/17 120/80 06/05/17 111/78 04/23/17 118/80 Wt Readings from Last 3 Encounters: 07/29/17 148 lb 12.8 oz (67.5 kg) 06/05/17 161 lb (73 kg) 04/23/17 163 lb (73.9 kg) Reviewed and updated as needed this visit by clinical staff Tobacco Allergies Meds Med Hx Surg Hx Fam Hx Soc Hx Reviewed and updated as needed this visit by Provider ROS: Constitutional, HEENT, cardiovascular, pulmonary, gi and gu systems are negative, except as otherwise noted. OBJECTIVE: BP 120/80 (BP Location: Right arm, Patient Position: Chair, Cuff Size: Adult Large) Pulse 80 Temp 98 ??F (36.7 ??C) (Oral) Ht 5' 4 (1.626 m) Wt 148 lb 12.8 oz (67.5 kg) SpO2 99% BMI 25.54 kg/m2 Body mass index is 25.54 kg/(m^2). GENERAL APPEARANCE: healthy, alert and no distress RESP: lungs clear to auscultation - no rales, rhonchi or wheezes CV: regular rates and rhythm, normal S1 S2, no S3 or S4 and no murmur, click or rub LYMPHATICS: no cervical adenopathy Diagnostic test results: Diagnostic Test Results: none ASSESSMENT/PLAN: 1. Overweight - phentermine 30 MG capsule; Take 1 capsule (30 mg) by mouth every morning Dispense: 30 capsule; Refill: 1 encouraged her to slowly eliminate phentermine and go it alone. Has done well with weight loss. Patient Instructions (E66.3) Overweight Comment: doing very well. Has lost 13 pounds since 06/05/17 Plan: phentermine 30 MG capsule Please take : Multivitamin Probiotic: bifido or acidophilus Magnolia 3: 1 g/day fish oil supplement (that would contain between 200 to 800 mg of EPA+DHA, dependingon the formulation) or one to two servings per week of oily fish [22]. Vitamin D3 5,000 units daily throughout the winter Magnesium glycinate 200 - 300 mg [employer]: Products and podcasts Isis Grace PA-C [facility] documented in this encounter Nursing Notes Ana Sommers CMA - 07/29/2017 9:15 AM CDT Chief Complaint Patient presents with ??? Recheck Medication Initial BP 120/80 (BP Location: Right arm, Patient Position: Chair, Cuff Size: Adult Large) Pulse 80 Temp 98 ??F (36.7 ??C) (Oral) Ht 5' 4 (1.626 m) Wt 148 lb 12.8 oz (67.5 kg) SpO2 99% BMI 25.54 kg/m2 Estimated body mass index is 25.54 kg/(m^2) as calculated from the following: Height as of this encounter: 5' 4 (1.626 m). Weight as of this encounter: 148 lb 12.8 oz (67.5 kg). Medication Reconciliation: complete Health Maintenance addressed: Pap Smear n/a documented in this encounter Plan of Treatment Not on filedocumented as of this encounter Visit Diagnoses Diagnosis Overweight documented in this encounter Care Teams Information Security Risk Analyst Relationship Specialty Start Date End Date Susie Naidu NP PCP - General Nurse Practitioner - Family 03/18/16 documented as of this encounter
--- OUTSIDE RECORDS SUMMARY | 2022-02-09 01:00 | XMS_ITS | Encounter Summary ---
:1975 Author Organization [place] Address [address] [facility] [place] [address] Care Team Providers Name Role Phone No Ref-Primary, Physician Primary Care Provider [phone] Isis Grace PA-C Unavailable [phone] Isis Grace PA-C Unavailable [phone] Encounter Details Date Type Department Care Team Description 05/27/2018 Travel Social History Tobacco Use Types Packs/Day [...] on filedocumented in this encounter Care Teams Epic Beacon Analyst Relationship Specialty Start Date End Date No Ref-Primary, Physician PCP - General 03/13/18 09/15/18 Isis Grace PA-C PCP - Assigned PCP 08/03/17 06/06/18 [address] [place], [place] [id number] AasebIsis Gresham PA-C Assigned PCP 08/03/17 06/06/18 [address] [place] [address] documented as of this encounter
--- OUTSIDE RECORDS SUMMARY | 2022-02-09 01:00 | XMS_ITS | Encounter Summary ---
:1975 Author Organization [place] Address [address] [place] [address] Care Team Providers Name Role Phone Susie Naidu FARM EQUIPMENT OPERATOR Primary Care Provider Reason for Visit Reason Comments Physical Encounter Details Date Type Department Care Team Description 07/31/2016 Office Visit [facility] Susie Naidu, Screen ing for malignant neoplasm of cervix (Primary Dx); [facility] FARM EQUIPMENT OPERATOR Encounter for routine adult health exami nation without abnormal findings; [address] [facility] [address] [phone] [place] [address] Social History Tobacco Use Types [...] Sign Reading Time Taken Comments Blood Pressure 120/70 07/31/2016 9:24 AM CDT Pulse 92 07/31/2016 9:24 AM CDT Temperature 36.7 ??C (98 ??F) 07/31/2016 9:24 AM CDT Respiratory Rate - - Oxygen Saturation 98% 07/31/2016 9:24 AM CDT Inhaled Oxygen Concentration - - Weight 74.2 kg (163 lb 9.6 oz) 07/31/2016 9:24 AM CDT Height 162.6 cm (5' 4) 07/31/2016 9:24 AM CDT Body Mass Index 28.08 07/31/2016 9:24 AM CDT documented in this encounter Patient Instructions Patient InstructionsEliza Moran Kalpana - 07/31/2016 9:26 AM CDT Preventive Health Recommendations Female Ages 40 to 49 Yearly exam: ??? See your health care provider every year in order to 1. Review health changes. 2. Discuss preventive care. 3. Review your medicines if your doctor prescribed any. ??? Get a Pap test every three years (unless you have an abnormal result and your provider advises testing more often). ??? If you get Pap tests with HPV test, you only need to test every 5 years, unless you have an abnormal result. You do not need a Pap test if your uterus was removed (hysterectomy) and you have not had cancer. ??? You should be tested each year for STDs (sexually transmitted diseases), if you're at risk. ??? Ask your doctor if you should have a mammogram. ??? Have a colonoscopy (test for colon cancer) if someone in your family has had colon cancer or polyps before age 50. ??? Have a cholesterol test every 5 years. ??? Have a diabetes test (fasting glucose) after age 45. If you are at risk for diabetes, you shouldhave this test every 3 years. Shots: Get a flu shot each year. Get a tetanus shot every 10 years. Nutrition: ??? Eat at least 5 servings of fruits and vegetables each day. ??? Eat whole-grain bread, whole-wheat pasta and brown rice instead of white grains and rice. ??? Talk to your provider about Calcium and Vitamin D. Lifestyle ??? Exercise at least 150 minutes a week (an average of 30 minutes a day, 5 days a week). This will help you control your weight and prevent disease. ??? Limit alcohol to one drink per day. ??? No smoking. ??? Wear sunscreen to prevent skin cancer. ??? See your dentist every six months for an exam and cleaning. documented in this encounter Progress Notes Susie Naidu FARM EQUIPMENT OPERATOR - 07/31/2016 9:26 AM CDT SUBJECTIVE: CC: Courtney Lizama is an 40 year old woman who presents for preventive health visit. Healthy Habits: ?? Do you get at least three servings of calcium containing foods daily (dairy, green leafy vegetables, etc.)? yes ?? Amount of exercise or daily activities, outside of work: 3 day(s) per week ?? Problems taking medications regularly No ?? Medication side effects: No ?? Have you had an eye exam in the past two years? no ?? Do you see a dentist twice per year? yes ?? Do you have sleep apnea, excessive snoring or daytime drowsiness?no Patient is here for a complete physical exam including a pap smear. History of abnormal pap with colposcopy. Is nervous about having a pap due to previous history. Recently ill with influenza type symptoms and all four of her children have been sick. Finally starting to feel better. Active working outon the treadmill three times a week. Walks for 2 miles daily. Today's PHQ-2 Score: PHQ-2 (??1998 Pfizer) 03/18/2016 09/14/2015 Q1: Little interest or pleasure in doing things 0 0 Q2: Feeling down, depressed or hopeless 0 0 PHQ-2 Score 0 0 Abuse: Current or Past(Physical, Sexual or Emotional)- No Do you feel safe in your environment - Yes Social History Substance Use Topics ??? Smoking status: Never Smoker ??? Smokeless tobacco: Never Used ??? Alcohol use Yes Comment: rare The patient does not drink >3 drinks per day nor >7 drinks per week. No results for input(s): CHOL, HDL, LDL, TRIG, CHOLHDLRATIO, NHDL in the last 39655 hours. Reviewed orders with patient. Reviewed health maintenance and updated orders accordingly - Yes Mammo Decision Support: Mammogram not appropriate for this patient based on age. Pertinent mammograms are reviewed under the imaging tab. History of abnormal Pap smear: NO - age 30- 65 PAP every 3 years recommended Reviewed and updated as needed this visit by clinical staff Tobacco Allergies Med Hx Surg Hx Fam Hx Soc Hx Reviewed and updated as needed this visit by Provider ROS: C: NEGATIVE for fever, chills, change in weight I: NEGATIVE for worrisome rashes, moles or lesions E: NEGATIVE for vision changes or irritation ENT: NEGATIVE for ear, mouth and throat problems R: NEGATIVE for significant cough or SOB B: NEGATIVE for masses, tenderness or discharge CV: NEGATIVE for chest pain, palpitations or peripheral edema GI: NEGATIVE for nausea, abdominal pain, heartburn, or change in bowel habits : NEGATIVE for unusual urinary or vaginal symptoms. Periods are regular. M: NEGATIVE for significant arthralgias or myalgia N: NEGATIVE for weakness, dizziness or paresthesias P: NEGATIVE for changes in mood or affect OBJECTIVE: BP 120/70 (BP Location: Right arm, Patient Position: Chair, Cuff Size: Adult Regular) Pulse 92 Temp 98 ??F (36.7 ??C) (Oral) Ht 5' 4 (1.626 m) Wt 163 lb 9.6 oz (74.2 kg) LMP 07/26/2016 (Exact Date) SpO2 98% ? No BMI 28.08 kg/m2 EXAM: GENERAL: healthy, alert and no distress EYES: Eyes grossly normal to inspection, PERRL and conjunctivae and sclerae normal HENT: ear canals and TM's normal, nose and mouth without ulcers or lesions NECK: no adenopathy, no asymmetry, masses, or scars and thyroid normal to palpation RESP: lungs clear to auscultation - no rales, rhonchi or wheezes BREAST: normal without masses, tenderness or nipple discharge and no palpable axillary masses or adenopathy CV: regular rate and rhythm, normal S1 S2, no S3 or S4, no murmur, click or rub, no peripheral edemaand peripheral pulses strong ABDOMEN: soft, nontender, no hepatosplenomegaly, no masses and bowel sounds normal MS: no gross musculoskeletal defects noted, no edema SKIN: no suspicious lesions or rashes PSYCH: mentation appears normal, affect normal/bright ASSESSMENT/PLAN: 1. Encounter for routine adult health examination without abnormal findings Examination completed with order for fasting labs placed today. Will return when feeling better to have labs drawn. - Lipid panel reflex to direct LDL; Future - Glucose; Future 2. Screening for malignant neoplasm of cervix Pap collected today. - Pap imaged thin layer screen with HPV - recommended age 30 - 65 years (select HPV order below) - HPV High Risk Types DNA Cervical 3. Overweight Will start phentermine for weight loss. Encouraged healthy diet, regular exercise. Discussed potential side effects. - phentermine 15 MG capsule; Take 1 capsule (15 mg) by mouth every morning Dispense: 30 capsule; Refill: 0 COUNSELING: Reviewed preventive health counseling, as reflected in patient instructions Regular exercise Healthy diet/nutrition reports that she has never smoked. She has never used smokeless tobacco. Estimated body mass index is 28.08 kg/(m^2) as calculated from the following: Height as of this encounter: 5' 4 (1.626 m). Weight as of this encounter: 163 lb 9.6 oz (74.2 kg). Weight management plan: Discussed healthy diet and exercise guidelines and patient will follow up in1 month in clinic to re-evaluate. Counseling Resources: ATP IV Guidelines Pooled Cohorts Equation Calculator Breast Cancer Risk Calculator FRAX Risk Assessment ICSI Preventive Guidelines Dietary Guidelines for Americans, 2009 [employer] MyPlate ASA Prophylaxis Lung CA Screening Susie Naidu NP [facility] documented in this encounter Nursing Notes Eliza Moran - 07/31/2016 9:20 AM CDT Chief Complaint Patient presents with ??? Physical Initial BP 120/70 (BP Location: Right arm, Patient Position: Chair, Cuff Size: Adult Regular) Pulse 92 Temp 98 ??F (36.7 ??C) (Oral) Ht 5' 4 (1.626 m) Wt 163 lb 9.6 oz (74.2 kg) LMP 07/26/2016 (Exact Date) SpO2 98% ? No BMI 28.08 kg/m2 Estimated body mass index is 28.08 kg/(m^2) as calculated from the following: Height as of this encounter: 5' 4 (1.626 m). Weight as of this encounter: 163 lb 9.6 oz (74.2 kg). Medication Reconciliation: complete KAI Biswas documented in this encounter Plan of Treatment Not on filedocumented as of this encounter Procedures Procedure Name Priority Date/Time Associated Diagnosis Comme nts HPV HIGH RISK TYPES Routine 07/31/2016 9:54 AM Screening for R esults for this DNA CERVICAL CDT malignant neoplasm procedure are in of cervix the results section. PAP IMAGED THIN Routine 07/31/2016 9:44 AM Screening for Resul ts for this LAYER SCREEN CDT malignant neoplasm procedure are in of cervix the results section. documented in this encounter Results HPV High Risk Types DNA Cervical (07/31/2016 9:54 AM CDT) Component Value Ref Test Analysis Performed At [facility] gist Range Method Time Signature HPV 16 DNA Negative NEG [facility] HPV 18 DNA Negative NEG [facility] Other HR HPV Negative NEG [facility] Final This patient's sample is negative for HPV DNA. [facility] Diagnosis (Note) OF [place] METHODOLOGY: ??The Adis marisol 4800 system uses automated extraction, MEDICAL simultaneous amplification of HPV (L1 region) and beta-globi n, [facility] followed by ??real time detection of fluorescent labeled H PV and beta [facility] globin using specific oligonucleotide probes . The test spec ifically identifies types HPV 16 DNA and HPV 18 DNA while concurrentl y detecting the rest of the high risk types (31, 33, 35, 39, 4 5, 51, 52, 56, 58, 59, 66 or 68). COMMENTS: ??This test is not intended for use as a screening device for women under age 30 with normal cervical cytology. ??Resu lts should be correlated with cytologic and histologic findings. Close clinical followup is recommended. This test was developed and its performance characteristics determined by the [facility]. It has not been cleared or approved by the FDA. The laboratory is regulated under CLIA as qualified to perform high-complexity testing. This test is used for clinical purp oses. It should not be regarded as investigational or for research. Specimen Cervical Cells [facility] Description C17 [id number] OF [facility] Specimen Anatomical Collection Method Collection Time Receive d Time (Source) Location / / Volume Laterality Cervical Cells 07/31/2016 9:54 AM 017 CDT 10:00 AM CDT Susie Naidu NP LAB - BLOOD ORDERABLES Performing Organization Address City/State/ZIP Code Phon e Number [facility] [address] [place] [address] [facility] Pap imaged thin layer screen with HPV - recommended age 30 - 65 years (select HPV order below) (07/31/2016 9:44 AM CDT) Component Value Ref Test Analysis Performed At [facility] Range Method Time Signature PAP NIL [place] Copath Report [place] Patient Name: COURTNEY LIZAMA MR#: [id number] Specimen #: [id number] Collected: 07/31/2016 Received: 08/01/2016 Reported: 08/05/2016 12:13 Ordering Phy(s): SUSIE NAIDU For improved result formatting, select 'View Enhanced Report Format' under Linked Documents section. SPECIMEN/STAIN PROCESS: Pap imaged thin layer prep screening (Surepath, FocalPoint w ith guided screening) ? Pap-Cyto x 2, HPV ordered x 1 SOURCE: Cervical, endocervical ---- Pap imaged thin layer prep screening (Surepath, FocalPoint with guided screening) SPECIMEN ADEQUACY: Satisfactory for evaluation. -Transformation zone component absent. CYTOLOGIC INTERPRETATION: Negative for Intraepithelial Lesion or Malignancy Electronically signed out by: MALIK Castillo (ASCP) Processed and screened at [facility] CLINICAL HISTORY: LMP: 07/26/16 Previous abnormal pap: [facility] Date of Last Pap: 09/24/10, Papanicolaou Test Limitations: ??Cervical cytology is a scre ening test with limited sensitivity; regular screening is critical for cancer prevention; Pap tests are primarily effective for the diagnosis/prevention of squamous cell carcinoma, not adenoca rcinomas or other cancers. TESTING LAB LOCATION: [address] ??[address] COLLECTION SITE: Client: ??[facility] Location: [facility] (R) Specimen (Source) Anatomical Collection Method Collection Time Re ceived Time Location / / Volume Laterality Cytologic 07/31/2016 9:44 08/01/2016 material AM CDT 10:27 AM CDT (specimen) Susie Naidu NP LAB - OPTIME CLINICAL SPECIM EN Performing Organization Address City/State/ZIP Code Phon e Number [place] documented in this encounter Visit Diagnoses Diagnosis Screening for malignant neoplasm of cerv ix - Primary Screening for malignant neoplasm of the cervix Encounter for routine adult health exami nation without abnormal findings Overweight documented in this encounter Care Teams County Program Technician Relationship Specialty Start Date End Date Susie Naidu, FARM EQUIPMENT OPERATOR PCP - General Nurse Practitioner - Family 03/18/16 documented as of this encounter
--- OUTSIDE RECORDS SUMMARY | 2022-02-09 01:00 | XMS_ITS | Encounter Summary ---
:1975 Author Organization [place] Address [address] [place] [address] Care Team Providers Name Role Phone Susie Naidu MORTGAGE PROFESSIONAL Primary Care Provider Reason for Visit Reason Onset Date Comments Panel Management 07/25/2016 Encounter Details Date Type Department Care Team Description 07/25/2016 Telephone [facility] Susie Naidu, MORTGAGE PROFESSIONAL Panel Management [facility] [address] [place] [address] [address] [phone] JOSELITO CERRATO [address] (Wo rk) Social History Tobacco Use Types [...] Notes Telephone Encounter - Bree George - 07/25/2016 10:15 AM CDT Patient made an appointment for 07/31/16. Bree George Grommet Worker Telephone Encounter - Eliza Moran - 07/25/2016 10:10 AM CDT Panel Management Review Patient has the following on her problem list: None Composite cancer screening Chart review shows that this patient is due/due soon for the following Pap Smear Summary: Patient is due/failing the following: PAP Action needed: Patient needs office visit for pap. Type of outreach: Phone, left message for patient to call back. Questions for provider review: None KAI Biswas Chart routed to . documented in this encounter Plan of Treatment Not on filedocumented as of this encounter Visit Diagnoses Not on filedocumented in this encounter Care Teams Shipping Point Inspector Relationship Specialty Start Date End Date Susie Naidu NP PCP - General Nurse Practitioner - Family 03/18/16 documented as of this encounter
--- OUTSIDE RECORDS SUMMARY | 2022-02-09 01:00 | XMS_ITS | Encounter Summary ---
:1975 Author Organization [place] Address [address] [place] [address] Care Team Providers Name Role Phone Susie Naidu NP Primary Care Provider [facility] Primary Care Provider No Ref-Primary, Physician Primary Care Provider [phone] Isis Grace PA-C Unavailable [phone] Isis Grace PA-C Unavailable [phone] Encounter Details Date Type Department Care Team Description 07/31/2016 Result Follow Up [facility] Susie Rangel NP Dx: H/O [facility] [address] [place] [address] [address] [phone] [place], [place] [address] (Wo rk) Social History Tobacco [...] documented as of this encounter Progress Notes Afua Dumont, RN - 07/31/2016 11:59 PM CDT 09/24/10: [facility] pap LEEP done, results unknown. 07/31/16: NIL pap, Neg HR HPV result. Plan cotest in 1 year per provider. 08/08/16: Letter sent to the pt with the results and recommendations. 07/28/17 Cotest reminder letter sent ([facility]) 02/03/18 Reminder call - left msg ([facility]) 03/24/18 Patient is lost to pap tracking follow-up. FYI routed to provider. ([facility]) SERVICE COORDINATOR documented in this encounter Plan of Treatment Not on filedocumented as of this encounter Visit Diagnoses Diagnosis H/O LEEP documented in this encounter Care Teams Sales Branch Manager Relationship Specialty Start Date End Date Susie Naidu, WAGE ANALYST PCP - General Nurse Practitioner - 03/18/16 12/09/17 [facility] [place], PCP - General 12/10/17 03/12/18 [facility] [id number] [place] [id number] No Ref-Primary, PCP - General 03/13/18 09/15/18 Physician Sanjay, PCP - Assigned PCP 08/03/17 9 Isis Edwards PA-C [address] [place] [address] Sanjay, Assigned PCP 08/03/17 06/06/18 Isis Edwards PA-C [address] [place] [address] documented as of this encounter
--- OUTSIDE RECORDS SUMMARY | 2022-02-09 01:00 | XMS_ITS | Encounter Summary ---
:1975 Author Organization [place] Address [address] [facility] [place] [address] Care Team Providers Name Role Phone Susie Naidu Lonny COAT IRONER HAND Primary Care Provider Reason for Visit Reason Onset Date Comments Medication Request 07/25/2016 Tamiflu Encounter Details Date Type Department Care Team Description 07/25/2016 Refill [facility] Elijah, Medication Request [employer] Britt Lares MD (Tamiflu) [address] [place] [phone] (Wo rk) Social History Tobacco Use Types [...] Telephone Encounter - Erica Stone RN - 07/25/2016 1:10 PM CDT OK to send per verbal order from Dr. Nava. Alyssa castillo. Erica Stone RN Telephone Encounter - Erica Stone RN - 07/25/2016 1:00 PM CDT Mother calling and was here with daughter and she has the flu. She thought she was getting preventative Tamiflu. T'd up. Please advise. Erica Stone RN documented in this encounter Plan of Treatment Not on filedocumented as of this encounter Visit Diagnoses Diagnosis Exposure to the flu - Primary Contact with or exposure to other viral diseases documented in this encounter Care Teams Refuge Worker Relationship Specialty Start Date End Date Susie Naidu NP PCP - General Nurse Practitioner - Family 03/18/16 documented as of this encounter
--- OUTSIDE RECORDS SUMMARY | 2022-02-09 01:00 | XMS_ITS | Encounter Summary ---
:1975 Author Organization [place] Address [address] 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) [address] [address] [facility], [address] [place], [place] [address] [place] [address] (Wo rk) [address] [phone] Social History Tobacco Use Types Packs/Day Years [...] Sign Reading Time Taken Comments Blood Pressure 132/75 03/07/2017 10:13 AM CDT Pulse 86 03/07/2017 9:41 AM CDT Temperature 36.7 ??C (98.1 ??F) 03/07/2017 9:41 AM CDT Respiratory Rate 16 03/07/2017 9:41 AM CDT Oxygen Saturation - - Inhaled Oxygen Concentration - - Weight 73.9 kg (163 lb) 03/07/2017 9:41 AM CDT Height - - Body Mass Index 27.98 12/10/2016 2:41 PM CDT documented in this encounter Patient Instructions Patient InstructionsStronJocy lyons APRN CNP - 03/07/2017 9:20 AM CDT My fitness pal for calorie tracking. Exercise 3-4 days per week. Ensure plenty of water. documented in this encounter Progress Notes Jocy oBwen APRN CNP - 03/07/2017 9:20 AM CDT HPI SUBJECTIVE: Alyssa Aguillon is a 41 year old female who presents to clinic today for the following health issues: Patient would like to discuss restarting phentermine. Was on phentermine in July 2016. Lost 12 pounds the first month. Has a gym membership. Work is busy; on her feet a lot at work, but only doing 1x/week of dedicated physical activity. Work out consistsof treadmill for 2 miles. Feels like it is hard to loose weight. Notes she hasn't been as focused the past few months, but really wants to get motivated and be serious about loosing weight. Wt Readings from Last 10 Encounters: 03/07/17 163 lb (73.9 kg) 12/10/16 156 lb (70.8 kg) 07/31/16 163 lb 9.6 oz (74.2 kg) 06/12/16 169 lb 8 oz (76.9 kg) 04/05/16 165 lb 1.6 oz (74.9 kg) 03/18/16 162 lb (73.5 kg) 09/15/15 162 lb (73.5 kg) 09/14/15 162 lb (73.5 kg) 06/26/15 155 lb (70.3 kg) 06/06/15 160 lb 12.8 oz (72.9 kg) BP Readings from Last 6 Encounters: 03/07/17 132/75 12/10/16 130/80 07/31/16 120/70 06/12/16 110/76 04/05/16 114/74 03/18/16 118/66 Problem list and histories reviewed & adjusted, as indicated. Additional history: as documented Current Outpatient Prescriptions Medication Sig Dispense Refill ??? phentermine 15 MG capsule Take 1 capsule (15 mg) by mouth every morning 30 capsule 0 Allergies Allergen Reactions ??? Compazine [Prochlorperazine] ??? Tamiflu [Oseltamivir] Hives Reviewed and updated as needed this visit by clinical staff Tobacco Allergies Meds Problems Med Hx Soc Hx Reviewed and updated as needed this visit by Provider Allergies Meds Problems ROS: Constitutional, HEENT, cardiovascular, pulmonary, gi and gu systems are negative, except as otherwise noted. OBJECTIVE: BP 132/75 Pulse 86 Temp 98.1 ??F (36.7 ??C) (Oral) Resp 16 Wt 163 lb (73.9 kg) LMP 02/23/2017 (Approximate) BMI 27.98 kg/m2 Body mass index is 27.98 kg/(m^2). GENERAL: healthy, alert and no distress RESP: lungs clear to auscultation - no rales, rhonchi or wheezes CV: regular rate and rhythm, normal S1 S2, no S3 or S4, no murmur, click or rub, no peripheral edemaand peripheral pulses strong PSYCH: mentation appears normal, affect normal/bright Diagnostic Test Results: none ASSESSMENT/PLAN: 1. Overweight Discussed BMI. SE's to med reviewed. Ins may not cover. Encouraged healthy diet and increasing physical activity to 3-4 days/week. Track calories with myfitnesspal. -phentermine 15 MG capsule; Take 1 capsule (15 mg) by mouth every morning Dispense: 30 capsule; Refill: 0 F/u 1 mo Jocy Bowen APRN CNP [facility] Physical Exam ANALYSIS CLERK documented in this encounter Nursing Notes Nahomy Cordova - 03/07/2017 9:20 AM CDT Chief Complaint Patient presents with ??? Medication Request Initial BP 142/82 (BP Location: Right arm, Cuff Size: Adult Regular) Pulse 86 Temp 98.1 ??F (36.7 ??C) (Oral) Resp 16 Wt 163 lb (73.9 kg) LMP 02/23/2017 (Approximate) BMI 27.98 kg/m2 Estimated body mass index is 27.98 kg/(m^2) as calculated from the following: Height as of 12/10/16: 5' 4 (1.626 m). Weight as of this encounter: 163 lb (73.9 kg). Medication Reconciliation: complete Nahomy Cordova MA documented in this encounter Plan of Treatment Not on filedocumented as of this encounter Visit Diagnoses Diagnosis Overweight - Primary documented in this encounter Care Teams Weaving Inspector Relationship Specialty Start Date End Date Susie Naidu, TELETYPEWRITER INSTALLER PCP - General Nurse Practitioner - Family 03/18/16 documented as of this encounter
--- OUTSIDE RECORDS SUMMARY | 2022-02-09 01:00 | XMS_ITS | Encounter Summary ---
:1975 Author Organization [place] Address [address] [facility] [place] [address] Care Team Providers Name Role Phone Susie Naidu Lonny DESIZING MACHINE BACK TENDER Primary Care Provider Reason for Visit Reason Comments No Show Encounter Details Date Type Department Care Team Description 03/05/2017 Office Visit [facility] Jocy Bowen NO SHOW (Primary Dx) Clinic Mara Dean APRN CNP [place] [address] [facility], [address] [place], [place] [address] [place] [address] (Wo rk) [address] [phone] Social History Tobacco Use Types Packs/Day Years [...] documented as of this encounter Progress Notes Jocy Bowen APRN CNP - 03/05/2017 1:00 PM CDT HPI ROS Physical Exam Erroneous encounter; no show for appointment. documented in this encounter Plan of Treatment Not on filedocumented as of this encounter Visit Diagnoses Diagnosis NO SHOW - Primary documented in this encounter Care Teams Drums Teacher Relationship Specialty Start Date End Date Susie Naidu, DESIZING MACHINE BACK TENDER PCP - General Nurse Practitioner - Family 03/18/16 documented as of this encounter
--- OUTSIDE RECORDS SUMMARY | 2022-02-09 01:00 | XMS_ITS | Encounter Summary ---
:1975 Author Organization [employer] Address [address] [facility] [place] [address] Care Team Providers Name Role Phone No Ref-Primary, Physician Primary Care Provider [phone] Isis Grace PA-C Unavailable Isis Grace PA-C Unavailable [phone] Reason for Visit Reason Comments Cough cough, fatigue X 1 week Encounter Details Date Type Department Care Team Description 03/13/2018 Office Visit [facility] Marlene Mitchell, Mitchel e bronchitis, Clinic [place] PAYenniferC unspecified organism [id number] [place] [address] (Primary Dx) [place] [address] [phone] (Wo rk) Social History Tobacco Use Types [...] Sign Reading Time Taken Comments Blood Pressure 136/80 03/13/2018 1:43 PM GLASS FRAME FITTER Pulse 90 03/13/2018 1:43 PM GLASS FRAME FITTER Temperature 36.4 ??C (97.6 ??F) 03/13/2018 1:43 PM GLASS FRAME FITTER Respiratory Rate 14 03/13/2018 1:43 PM GLASS FRAME FITTER Oxygen Saturation 100% 03/13/2018 1:43 PM GLASS FRAME FITTER Inhaled Oxygen Concentration - - Weight 68 kg (150 lb) 03/13/2018 1:43 PM GLASS FRAME FITTER Height - - Body Mass Index 25.75 12/17/2017 1:40 PM CDT documented in this encounter Progress Notes Marlene Mitchell PA-C - 03/13/2018 1:45 PM CST SUBJECTIVE: Alyssa Aguillon is a 42 year old female who presents to clinic today for the following health issues: Acute Illness Acute illness concerns: cough and fatigue Onset: X 1-2 weeks ?? Fever: no ?? Chills/Sweats: YES ?? Headache (location?): YES ?? Sinus Pressure:no ?? Conjunctivitis: no ?? Ear Pain: YES: left ?? Rhinorrhea: YES ?? Congestion: YES ?? Sore Throat: YES- scratchy from coughing ?? Cough: [id number], productive of yellow sputum, productive of green sputum ?? Wheeze: no ?? Decreased Appetite: YES ?? Nausea: YES ?? Vomiting: no ?? Diarrhea: no ?? Dysuria/Freq.: no ?? Fatigue/Achiness: YES ?? Sick/Strep Exposure: YES- son is feeling sick today, has HUDSON Therapies Tried and outcome: IBU for HUDSON and Mucinex, but might have had a bad reaction to this, feltdizzy the next day Problem list and histories reviewed & adjusted, as indicated. Additional history: as documented Patient Active Problem List Diagnosis ??? CARDIOVASCULAR [...] negative, except as otherwise noted. OBJECTIVE: BP 136/80 (BP Location: Right arm, Patient Position: Chair, Cuff Size: Adult Large) Pulse 90 Temp 97.6 ??F (36.4 ??C) (Oral) Resp 14 Wt 150 lb (68 kg) SpO2 100% BMI 25.75 kg/m2 Body mass index is 25.75 kg/(m^2). GENERAL APPEARANCE: healthy, alert and no distress HENT: ear canals and TM's normal and nose and mouth without ulcers or lesions RESP: rhonchi throughout CV: regular rates and rhythm, normal S1 S2, no S3 or S4 and no murmur, click or rub ASSESSMENT/PLAN: 1. Acute bronchitis, unspecified organism Supportive cares. F/u if symptoms persist or worsen. - azithromycin (ZITHROMAX) 250 MG tablet; Two tablets first day, then one tablet daily for four days. Dispense: 6 tablet; Refill: 0 - albuterol (PROAIR HFA/PROVENTIL HFA/VENTOLIN HFA) 108 (90 Base) MCG/ACT inhaler; Inhale 2 puffs into the lungs every 6 hours as needed for shortness of breath / dyspnea or wheezing Dispense: 1 Inhaler; Refill: 0 Marlene Mitchell PA-C [facility] S FRAME FITTER documented in this encounter Plan of Treatment Not on filedocumented as of this encounter Visit Diagnoses Diagnosis Acute bronchitis, unspecified organism - Primary documented in this encounter Care Teams Electric Deicer Assembler Relationship Specialty Start Date End Date No Ref-Primary, Physician PCP - General 03/13/18 09/15/18 AasIsis Davies PA-C PCP - Assigned PCP 08/03/17 06/06/18 [address] [place] [address] Isis Grace PA-C Assigned PCP 08/03/17 06/06/18 [address] [place] [address] documented as of this encounter
--- OUTSIDE RECORDS SUMMARY | 2022-02-09 01:00 | XMS_ITS | Encounter Summary ---
:1975 Author Organization [place] Address [address] [facility] [place] [address] Care Team Providers Name Role Phone Susie Naidu BALANCING MACHINE OPERATOR Primary Care Provider Reason for Visit Reason Onset Date Comments Refill Request 10/27/2016 Encounter Details Date Type Department Care Team Description 10/27/2016 [facility] Nurse Fallon Smith RN Refill Request [facility] [address] [place] [address] Social History Tobacco Use Types Packs/Day Years [...] this encounter Miscellaneous Notes Telephone Encounter - Whitney Morales RN - 10/28/2016 7:44 AM CDT Pt RX fill for one more month and then will not need any further refills. Whitney Morales RN Telephone Encounter - Susie Naidu NP - 10/28/2016 6:58 AM CDT Patient should not be on this longer than 3-4 months and especially based on her current weight. I have refilled for this month but it is meant to be used short term only. documented in this encounter Plan of Treatment Not on filedocumented as of this encounter Visit Diagnoses Diagnosis Overweight documented in this encounter Care Teams Mechanical Design Drafter Relationship Specialty Start Date End Date Susie Naidu NP PCP - General Nurse Practitioner - Family 03/18/16 documented as of this encounter
--- OUTSIDE RECORDS SUMMARY | 2022-02-09 01:00 | XMS_ITS | Encounter Summary ---
:1975 Author Organization [place] Address [address] [facility] [place] [address] Care Team Providers Name Role Phone Susie Naidu FACILITIES OFFICER Primary Care Provider Reason for Visit Reason Onset Date Comments Panel Management 04/05/2016 Encounter Details Date Type Department Care Team Description 04/05/2016 Telephone [facility] Raghu Freed, Panel Management [address] [id number] [phone] Social History Tobacco Use Types Packs/Day Years [...] this encounter Miscellaneous Notes Telephone Encounter - Tanna Jalloh MA - 04/12/2016 10:22 AM CST Lm for patient to call back to clinic. Letter sent. ICE MUSIC THERAPIST Telephone Encounter - Tanna Jalloh MA - 04/05/2016 3:12 PM CST . Panel Management Review Patient has the following on her problem list: None Composite cancer screening Chart review shows that this patient is due/due soon for the following Pap Smear Summary: Patient is due/failing the following: PAP Action needed: Patient needs office visit for physical with pap. Type of outreach: Phone, left message for patient to call back. Questions for provider review: None KAI Miller : Chart routed to Care Team . ICE MUSIC THERAPIST documented in this encounter Plan of Treatment Not on filedocumented as of this encounter Visit Diagnoses Not on filedocumented in this encounter Care Teams Agricultural Produce Sorter Relationship Specialty Start Date End Date Susie Naidu NP PCP - General Nurse Practitioner - Family 03/18/16 documented as of this encounter
--- OUTSIDE RECORDS SUMMARY | 2022-02-09 01:00 | XMS_ITS | Encounter Summary ---
:1975 Author Organization [place] Address [address] [place] [address] Care Team Providers Name Role Phone Susie Naidu HOME VISIT FIELD CARE MANAGER Primary Care Provider Reason for Visit Reason Comments Sinus Problem Encounter Details Date Type Department Care Team Description 06/12/2016 Office Visit [facility] Susie Naidu, Acute sinusitis with Clinic [place] HOME VISIT FIELD CARE MANAGER symptoms > 10 days [address] [facility] (Primary Dx) [facility] [address] [phone] [place], [place] [address] Social History Tobacco Use Types [...] Sign Reading Time Taken Comments Blood Pressure 110/76 06/12/2016 3:29 PM FRUIT HARVESTER Pulse 86 06/12/2016 3:29 PM FRUIT HARVESTER Temperature 36.6 ??C (97.8 ??F) 06/12/2016 3:29 PM FRUIT HARVESTER Respiratory Rate 14 06/12/2016 3:29 PM FRUIT HARVESTER Oxygen Saturation 97% 06/12/2016 3:29 PM FRUIT HARVESTER Inhaled Oxygen Concentration - - Weight 76.9 kg (169 lb 8 oz) 06/12/2016 3:29 PM FRUIT HARVESTER Height 167.6 cm (5' 6) 06/12/2016 3:29 PM FRUIT HARVESTER Body Mass Index 27.36 06/12/2016 3:29 PM FRUIT HARVESTER documented in this encounter Progress Notes Susie Naidu, HOME VISIT FIELD CARE MANAGER - 06/12/2016 3:29 PM CST SUBJECTIVE: Alyssa Aguillon is a 40 year old female who presents to clinic today for the following health issues: RESPIRATORY SYMPTOMS ?? Duration: 4-5 days ?? Description nasal congestion, rhinorrhea, facial pain/pressure, cough, chills, headache and fatigue/malaise ?? Severity: moderate ?? Accompanying signs and symptoms: sneezing ?? History (predisposing factors): none ?? Precipitating or alleviating factors: None ?? Therapies tried and outcome: advil Patient is here with yet another episode of sinus congestion. Patient has been seen 3 times in the last 2 months for sinus congestion, headache, facial pain. She has been on multiple antibiotics over the course of the past year. Patient states that many the antibiotics are ineffective for her and symptoms return. Patient has been taking Advil with minimal relief. Problem list and histories reviewed & adjusted, as indicated. Additional history: none Problem list, Medication list, Allergies, and Medical/Social/Surgical histories reviewed in EPIC andupdated as appropriate. ROS: Constitutional, HEENT, cardiovascular, pulmonary, gi and gu systems are negative, except as otherwise noted. OBJECTIVE: BP 110/76 mmHg Pulse 86 Temp(Src) 97.8 ??F (36.6 ??C) (Oral) Resp 14 Ht 5' 6 (1.676 m) Wt169 lb 8 oz (76.885 kg) BMI 27.37 kg/m2 SpO2 97% LMP 06/07/2016 (Approximate) ?No Body mass index is 27.37 kg/(m^2). GENERAL: healthy, alert and no distress EYES: Eyes grossly normal to inspection, PERRL and conjunctivae and sclerae normal HENT: ear canals and TM's normal, nose and mouth without ulcers or lesions. Nasal congestion with facial pain. Headache. NECK: no adenopathy, no asymmetry, masses, or scars and thyroid normal to palpation RESP: lungs clear to auscultation - no rales, rhonchi or wheezes CV: regular rate and rhythm, normal S1 S2, no S3 or S4, no murmur, click or rub, no peripheral edemaand peripheral pulses strong ASSESSMENT/PLAN: 1. Acute sinusitis with symptoms > 10 days I have explained the patient that recurrent use of antibiotics has contributed to her resistance. We have reviewed her medical record and it shows that she has been on at least 6 different antibioticsthis year alone. I refused to give antibiotics at this visit as I am concerned about her developing C. difficile colitis. Will try prednisone 40 mg daily for 5 days along with Flonase and a decongestant to help with symptoms. - fluticasone (FLONASE) 50 MCG/ACT spray; [place] 1-2 sprays into both nostrils daily Dispense: 16 g; Refill: 3 - predniSONE (DELTASONE) 20 MG tablet; Take 2 tablets (40 mg) by mouth daily for 5 days Dispense: 10tablet; Refill: 0 If symptoms persist, will need referral to ENT. Susie Naidu NP [facility] T HARVESTER documented in this encounter Nursing Notes Eliza Moran - 06/12/2016 3:29 PM CST Chief Complaint Patient presents with ??? Sinus Problem Initial BP 110/76 mmHg Pulse 86 Temp(Src) 97.8 ??F (36.6 ??C) (Oral) Resp 14 Ht 5' 6 (1.676m) Wt 169 lb 8 oz (76.885 kg) BMI 27.37 kg/m2 SpO2 97% LMP 06/07/2016 (Approximate) ? No Estimated body mass index is 27.37 kg/(m^2) as calculated from the following: Height as of this encounter: 5' 6 (1.676 m). Weight as of this encounter: 169 lb 8 oz (76.885 kg). Medication Reconciliation: unable or not appropriate to perform KAI Biswas Pt is aware she is due for a pap T HARVESTER documented in this encounter Plan of Treatment Not on filedocumented as of this encounter Visit Diagnoses Diagnosis Acute sinusitis with symptoms > 10 days - Primary Acute sinusitis, unspecified documented in this encounter Care Teams Wet Plant Operator Relationship Specialty Start Date End Date Susie Naidu, HOME VISIT FIELD CARE MANAGER PCP - General Nurse Practitioner - Family 03/18/16 documented as of this encounter
--- OUTSIDE RECORDS SUMMARY | 2022-02-09 01:00 | XMS_ITS | Encounter Summary ---
:1975 Author Organization [place] Address [address] [facility] [place] [address] Care Team Providers Name Role Phone No Ref-Primary, Physician Primary Care Provider [phone] Isis Grace PA-C Unavailable [phone] Isis Grace PA-C Unavailable [phone] Encounter Details Date Type Department Care Team Description 05/28/2018 Travel Social History Tobacco Use Types Packs/Day [...] on filedocumented in this encounter Care Teams General Partner Relationship Specialty Start Date End Date No Ref-Primary, Physician PCP - General 03/13/18 09/15/18 Isis Grace PA-C PCP - Assigned PCP 08/03/17 06/06/18 [address] [address] [place], [place] [id number] AasebIsis Gresham PA-C Assigned PCP 08/03/17 06/06/18 [address] [place] [address] documented as of this encounter
--- OUTSIDE RECORDS SUMMARY | 2022-02-09 01:00 | XMS_ITS | Encounter Summary ---
:1975 Author Organization [place] Address [address] [facility] [place] [address] Care Team Providers Name Role Phone No Ref-Primary, Physician Primary Care Provider [phone] Raghu Freed PA-C Unavailable [phone] Encounter Details Date Type Department Care Team Description 08/27/2018 Travel Social History Tobacco Use Types Packs/Day [...] documented as of this encounter Care Teams Air Export Operations Agent Relationship Specialty Start Date End Date No Ref-Primary, Physician PCP - General 03/13/18 09/15/18 Raghu Freed PA-C Assigned PCP 06/07/18 09/19/18 [address] [place] [address] documented as of this encounter
--- OUTSIDE RECORDS SUMMARY | 2022-02-09 01:00 | XMS_ITS | Encounter Summary ---
:1975 Author Organization [facility] Address [address] [address] Support Name Relationship Address Phone Leanne Wu Unavailable Unavailable [phone] [place], [facility] Team Providers Name Role Phone No Ref-Primary, Physician Primary Care Provider Isis Grace PA-C Unavailable Isis Grace PA-C Unavailable Reason for Referral Diagnostic Imaging XR - Closed Specialty Diagnoses / Procedures Referred By Contact Refer red To Contact Diagnoses Persistent cough for 3 weeks or longer Tea Lennon Procedures XR Chest 2 Views MD Leanne [address] [place], [place] [address] Referral ID Status Reason Start Date Expiration Date Visits Requ ested Visits Authorized [id number] Closed 04/01/2018 04/01/2019 1 1 ERIES OFFICER Reason for Visit Reason Comments URI Encounter Details Date Type Department Care Team Description 04/01/2018 Office Visit [facility] Ho Lennon tent cough for 3 weeks or longer (Primary Dx); Clinic [place] Tea Perdomo Nasal polyp [address] Kristopher Padron MD [place], [place] [address] [address] [place], [place] [phone] [id number] Social History Tobacco Use Types Packs/Day Years [...] Sign Reading Time Taken Comments Blood Pressure 120/62 04/01/2018 3:56 PM FISHERIES OFFICER Pulse 79 04/01/2018 3:56 PM FISHERIES OFFICER Temperature 36.5 ??C (97.7 ??F) 04/01/2018 3:56 PM FISHERIES OFFICER Respiratory Rate 18 04/01/2018 3:56 PM FISHERIES OFFICER Oxygen Saturation 100% 04/01/2018 3:56 PM FISHERIES OFFICER Inhaled Oxygen Concentration - - Weight 68.1 kg (150 lb 3.2 oz) 04/01/2018 3:56 PM FISHERIES OFFICER Height 162.6 cm (5' 4) 04/01/2018 3:56 PM FISHERIES OFFICER Body Mass Index 25.78 04/01/2018 3:56 PM FISHERIES OFFICER documented in this encounter Patient Instructions Patient InstructionsTea Lennon MD - 04/01/2018 3:40 PM CST ?? Symptomatic cares, humidified air, fluids, and rest, only as discussed. ?? Fsqe-lso-[id number] medications, only as discussed. ?? Trial of Flonase, as prescribed. ?? Recheck in 2 weeks. ?? Follow up sooner if fever or worsening symptoms. ?? Follow up in the ER immediately if: chest pain > 5 minutes (outside of coughing), shortness ofbreath at rest, hemoptysis (coughing up blood), or other severe/emergent symptoms. ?? Further weight loss strategies to be discussed at follow-up appointment, only as appropriate. ERIES OFFICER documented in this encounter Progress Notes Tea Lennon MD - 04/01/2018 3:40 PM CST SUBJECTIVE: Alyssa Aguillon is a 42 year old female presenting with a chief complaint of Chief Complaint Patient presents with ??? URI She is an established patient of [facility]. Acute Illness Acute illness concerns: Persistent cough Onset: 5-6 weeks ?? Fever: No, but felt feverish the past 2 days. ?? Chills/Sweats: YES - The past 2 days. ?? Headache (location?): no ?? Sinus Pressure: no ?? Conjunctivitis: no ?? Ear Pain: no ?? Rhinorrhea: YES, with persistent postnasal drainage sensation. ?? Congestion: no ?? Sore Throat: no ?? GERD: no ?? Edema: no ?? Cough: YES, occasionally productive of clear sputum. ?? Wheeze: no ?? Chest pain: Left ribs hurt with coughing and sneezing. ?? Shortness of breath: Mild with going downstairs. No shortness of breath at rest. ?? Decreased Appetite: no ?? Nausea: no ?? Vomiting: no ?? Diarrhea: no ?? Dysuria/Freq.: no ?? Fatigue/Achiness: YES ?? Sick/Strep Exposure: no Therapies Tried and outcome: Z-Jim 03/13/2018, without improvement. Mucinex DM caused a racing heartand lightheadedness. Patient is uncertain if the previously prescribed Albuterol inhaler has been helpful, but she has used this 6-7 times. Additional History: Patient has a history of itchy/watery eyes, nasal congestion, and postnasal drainage during the spring versus summer months. She has not formally been diagnosed with allergies previously. Incidental Concern: Patient states that she continues to struggle with weight loss, with recent 5 pound weight gain. Patient would like to know what OTC medication she can try. She states she has triedmany OTC medications to try to lose weight in the past. Patient was previously on Phentermine, whichshcory thought was effective. Review of Systems - Patient denies risk for , with LMP ~03/04/2018. Patient Active Problem List Diagnosis Code ??? CARDIOVASCULAR SCREENING; LDL GOAL LESS THAN 160 Z13.6 ??? Ovarian cyst N83.209 ??? Menorrhagia N92.0 ??? Abnormal Pap smear ??? Acute low back pain with disc symptoms, duration less than 6 weeks M54.10 ??? Bulge of lumbar disc without myelopathy M51.26 ??? Low back pain M54.5 ??? Nausea R11.0 ??? Other iron deficiency anemia D50.8 ??? H/O LEEP Z98.890 ??? Panic attack F41.0 Past Medical History: Diagnosis Date ??? Abnormal Pap smear 8 yrs ago, 09/2010 ASCUS-H ??? Anemia ??? Menorrhagia, premenopausal 2010 ??? Streptococcal sore throat required hospitalization 1 yr ago Family History Problem Relation Age of Onset ??? Family History Negative Mother ??? Family History Negative Father ??? Family History Negative Sister 2 ??? Hypertension Daughter ??? Breast Cancer No family hx of ??? Cancer - colorectal No family hx of Current Outpatient Prescriptions Medication Sig Dispense Refill ??? albuterol (PROAIR HFA/PROVENTIL HFA/VENTOLIN HFA) 108 (90 Base) MCG/ACT inhaler Inhale 2 puffs into the lungs every 6 hours as needed for shortness of breath / dyspnea or wheezing 1 Inhaler 0 Social History Substance Use Topics ??? Smoking status: Never Smoker ??? Smokeless tobacco: Never Used ??? Alcohol use Yes Comment: rare OBJECTIVE BP 120/62 (BP Location: Right arm, Patient Position: Chair, Cuff Size: Adult Regular) Pulse 79 Temp 97.7 ??F (36.5 ??C) (Oral) Resp 18 Ht 5' 4 (1.626 m) Wt 150 lb 3.2 oz (68.1 kg) LMP 03/04/2018 (Approximate) SpO2 100% ? No BMI 25.78 kg/m2 Physical Exam GENERAL APPEARANCE: Awake, alert, and in no acute distress. PSYCHIATRIC: Pleasant affect. HEENT: Sclera anicteric. No conjunctivitis. PERRLA. Extraocular movements are intact. Bilateral TM'sand canals are within normal limits. Mild nasal congestion, with clear postnasal drainage. There is a 8-9 mm nasal polyp noted involving the left nares. Sinuses are not tender to palpation. No significant erythema in the posterior pharynx. No edema or exudates of the oral mucosa or posterior pharynx. Mucous membranes moist. NECK: Spontaneous full range of motion. No thyromegaly or mass. No lymphadenopathy. HEART: Normal S1, S2. Regular rate and rhythm. No murmurs, rubs, or gallops. LUNGS: No respiratory distress. No wheezes, rales, or rhonchi. ABDOMEN: Not distended. Soft. Not tender. No mass. EXTREMITIES: Moves 4 extremities. No edema or calf tenderness. NEUROLOGIC: Gait within normal limits. No facial droop or acute neurologic deficits. SKIN: No rash or diaphoresis, but some facial acne. Labs: No results found for this or any previous visit (from the past 24 hour(s)). Chest X-ray: Negative for acute changes, infiltrate, effusion, or pneumothorax, as reviewed by this examiner. ASSESSMENT: ICD-10-CM 1. Persistent cough for 3 weeks or longer, not responsive to previous Z-Jim treatment. Suspect postnasal drainage, but differential was considered. Doubt pneumonia, based on Chest X-ray result today. Doubt pulmonary embolus, based on overall history, as well as the absence of tachycardia or hypoxia. R05 XR Chest 2 Views fluticasone (FLONASE) 50 MCG/ACT nasal spray 2. Nasal polyp (left naris), with history of postnasal drainage. J33.9 fluticasone (FLONASE) 50 MCG/ACT nasal spray PLAN: Patient agrees with holding off on further antibiotics post risks and benefits discussion today. Patient Instructions ?? Symptomatic cares, humidified air, fluids, and rest, only as discussed. ?? [id number] medications, only as discussed. ?? Trial of Flonase, as prescribed. ?? Recheck in 2 weeks. ?? Follow up sooner if fever or worsening symptoms. ?? Follow up in the ER immediately if: chest pain > 5 minutes (outside of coughing), shortness ofbreath at rest, hemoptysis (coughing up blood), or other severe/emergent symptoms. ?? Further weight loss strategies to be discussed at follow-up appointment, only as appropriate. Discussed risks and benefits of treatment strategies, as noted in the Assessment and Plan sections. The patient was discharged ambulatory and in stable condition post discussion of follow up. Tea Lennon MD [facility] ERIES OFFICER documented in this encounter Plan of Treatment Not on filedocumented as of this encounter Results XR Chest 2 Views (04/01/2018 6:05 PM FISHERIES OFFICER) Anatomical Region Laterality Modality Chest Computed Radiography Specimen (Source) Anatomical Location Collection Method / Collectio n Time Received Time / Laterality Volume Impressions 04/01/2018 6:25 PM FISHERIES OFFICER IMPRESSION: No acute abnormality. NAGA ANGULO MD Narrative 04/01/2018 6:25 PM FISHERIES OFFICER CHEST TWO VIEW ?? 04/01/2018 6:05 PM [...] Persistent cough for 3 weeks or longer - Primary Nasal polyp Unspecified nasal polyp Persistent cough for 3 weeks or longer documented in this encounter Care Teams Rn Chemical Dependency Relationship Specialty Start Date End Date No Ref-Primary, Physician PCP - General 03/13/18 09/15/18 Isis Grace PA-C PCP - Assigned PCP 08/03/17 06/06/18 [address] [place] [address] Isis Grace PA-C Assigned PCP 08/03/17 06/06/18 [address] [place] [address] documented as of this encounter
--- OUTSIDE RECORDS SUMMARY | 2022-02-09 01:00 | XMS_ITS | Encounter Summary ---
:1975 Author Organization [facility] Address [address] [facility] [place] [address] Care Team Providers Name Role Phone No Ref-Primary, Physician Primary Care Provider [phone] Isis Grace PA-C Unavailable Isis Grace PA-C Unavailable [phone] Reason for Visit Reason Comments Weight Loss Encounter Details Date Type Department Care Team Description 05/28/2018 Office Visit [facility] Raghu Freed Situatio nal depression (Primary Dx); [facility] [place] [facility] [place] Overweight (BMI 25.0-29.9) [address] [place] [id number] [phone] Social History Tobacco Use Types Packs/Day Years [...] Sign Reading Time Taken Comments Blood Pressure 127/73 05/28/2018 1:42 PM AUTOMATED EQUIPMENT ENGINEER TECHNICIAN Pulse 103 05/28/2018 1:42 PM AUTOMATED EQUIPMENT ENGINEER TECHNICIAN Temperature 36.8 ??C (98.2 ??F) 05/28/2018 1:42 PM AUTOMATED EQUIPMENT ENGINEER TECHNICIAN Respiratory Rate 18 05/28/2018 1:42 PM AUTOMATED EQUIPMENT ENGINEER TECHNICIAN Oxygen Saturation - - Inhaled Oxygen Concentration - - Weight 71.7 kg (158 lb) 05/28/2018 1:42 PM AUTOMATED EQUIPMENT ENGINEER TECHNICIAN Height - - Body Mass Index 27.12 04/01/2018 3:56 PM AUTOMATED EQUIPMENT ENGINEER TECHNICIAN documented in this encounter Patient Instructions Patient InstructionsRaghu Freed PA-C - 05/28/2018 1:30 PM AUTOMATED EQUIPMENT ENGINEER TECHNICIAN 1. wellbutrin- 150 mg XL once daily. Can help with mood and possibly weight. 2. Endocrine work. This includes simple blood tests and if work up normal. Great. If not, Clara hernandez is at our clinic and she is an family resource management professor that we can. 3. Weight loss clinic: nutrition or this with medication management. They are in [place]. 4. Weight management motor coach supervisor. I will check and see if you qualify for this. MATED EQUIPMENT ENGINEER TECHNICIAN documented in this encounter Progress Notes Raghu Freed PA-C - 05/28/2018 1:30 PM CST SUBJECTIVE: Alyssa Aguillon is a 42 year old female who presents to clinic today for the following health issues: -discuss weight loss options, was on phentermine last year helped in the beginning, would like phentermine help again to get routine going. Patient states over the winter she gained 15 lbs after dealing with stress of sending her son to [place] for medical management. She states she works out at the gym for ~1 hours 3-5 days a week and no improvement in weight. She also watches her oral intake. Does not know the exact calorie intake however states a normal day is a granola bar in the AM and yogurt for lunch with a small portion of her children's protein at night. She states she has seen a inside sales trainer at her gym and has tried nutrition changes without good results. She state phentermine was given to her by her previous pcp and would like the same management. No history of heart disease. No side effects of this medication in the past. She admits to feeling more fatigue and not motivated since gaining weight and she does feel depressed. She feels if she can lose weight this will improve her mood. Problem list and histories reviewed & adjusted, [...] by mouth every morning 90 tablet 1 Allergies Allergen Reactions ??? Compazine [Prochlorperazine] ??? Tamiflu [Oseltamivir] Hives Recent Labs Lab Test 12/10/16 1502 09/21/15 1540 06/06/15 1128 05/05/15 1730 ALT -- 21 15 22 CR -- 0.65 0.57 0.66 GFRESTIMATED -- >90 Non GFR Calc >90 Non GFR Calc >90 Non GFR Calc GFRESTBLACK -- >90 GFR Calc >90 GFR Calc >90 GFR Calc POTASSIUM -- 3.6 4.1 3.5 TSH 1.45 -- -- 1.02 BP Readings from Last 3 Encounters: 05/28/18 127/73 04/01/18 120/62 03/13/18 136/80 Wt Readings from Last 3 Encounters: 05/28/18 71.7 kg (158 lb) 04/01/18 68.1 kg (150 lb 3.2 oz) 03/13/18 68 kg (150 lb) Reviewed and updated as needed this visit by clinical staff Tobacco Allergies Meds Problems Med Hx Surg Hx Fam Hx Soc Hx Reviewed and updated as needed this visit by Provider Tobacco Allergies Meds Problems Med Hx Surg Hx Fam Hx ROS: Constitutional, HEENT, psych, neuro, cardiovascular, pulmonary, gi and gu systems are negative, except as otherwise noted. OBJECTIVE: BP 127/73 (BP Location: Right arm, Patient Position: Chair, Cuff Size: Adult Large) Pulse 103 Temp 98.2 ??F (36.8 ??C) (Oral) Resp 18 Wt 71.7 kg (158 lb) BMI 27.12 kg/m?? Body mass index is 27.12 kg/m??. GENERAL: healthy, alert and no distress PSYCH: mentation appears normal, tearful and anxious Diagnostic Test Results: none ASSESSMENT/PLAN: (F43.21) Situational depression (primary encounter diagnosis) Comment: majority of visit was discussed on the inappropriateness of the use of phentermine based onher current weight. Patient has no commodities and her BMI is not in the obesity category. Phentermine and other weight loss medications are not recommended for patient based on these findings. It is felt better consultation with a power distribution engineer would be beneficial for patient to aid in metabolism rate improvement. We also discussed a natural decreased in rate as individuals age and how exercise alone does not always manage weight well.I did offer her a referral to consult with our weight loss clinic which patient denies. I also discussed work up for possible endocrinology etiology. This included tsh, vitamin d, a1c, and cortisol levels. However, patient denies this as well. I further discussed her likely concern is her current mood status secondary to failing to loose weight and also the stress withcaring for her son. Discussed wellbutrin may be an option for not only her mood, but also it may help her lose weight. Patient would like to attempt this. Would recommend she follow up with us in 3 months and also recommended CBT as well. Patient denies this as well. Plan: buPROPion (WELLBUTRIN XL) 150 MG 24 hr tablet -Medication use and side effects discussed with the patient. Patient is in complete understanding and agreement with plan. (E66.3) Overweight (BMI 25.0-29.9) Comment: as above Plan: buPROPion (WELLBUTRIN XL) 150 MG 24 hr tablet Follow up: as above 42 minutes. Greater than 50% of the time was spent face to face counseling regarding his conditions and treatment options as described above. Raghu Freed PA-C [facility] MATED EQUIPMENT ENGINEER TECHNICIAN documented in this encounter Plan of Treatment Not on filedocumented as of this encounter Visit Diagnoses Diagnosis Situational depression - Primary Overweight (BMI 25.0-29.9) Overweight documented in this encounter Care Teams Candle Molder Machine Relationship Specialty Start Date End Date No Ref-Primary, Physician PCP - General 03/13/18 09/15/18 Isis Grace PA-C PCP - Assigned PCP 08/03/17 06/06/18 [address] [place] [address] Isis Grace PA-C Assigned PCP 08/03/17 06/06/18 [address] [place] [address] documented as of this encounter
--- OUTSIDE RECORDS SUMMARY | 2022-02-09 01:00 | XMS_ITS | Encounter Summary ---
:1975 Author Organization [facility] Address [address] [facility] [address] Care Team Providers Name Role Phone No Ref-Primary, Physician Primary Care Provider [phone] Raghu Freed PA-C Unavailable [phone] Reason for Referral Mental Health Outpatient (Routine) - Closed Specialty Diagnoses / Procedures Referred By Contact Refer red To Contact Diagnoses [place], [place] [address] [place], [place] [address] Referral ID Status Reason Start Date Expiration Date Visits Requ ested Visits Authorized [id number] Closed 08/27/2018 08/27/2019 1 1 Scheduling Instructions Please have her see Far[facility] in [place] Reason for Visit Reason Comments Depression Encounter Details Date Type Department Care Team Description 08/27/2018 Office Visit [facility] Hunter Roman Depres sion, [facility] Moshe WELLS unspecified depression [address] [facility] [address] type (Primary Dx) [place] [address] [phone] Social History Tobacco Use Types Packs/Day Years [...] Sign Reading Time Taken Comments Blood Pressure 134/92 08/27/2018 9:25 AM CDT Pulse 73 08/27/2018 9:25 AM CDT Temperature 36.9 ??C (98.5 ??F) 08/27/2018 9:25 AM CDT Respiratory Rate 14 08/27/2018 9:25 AM CDT Oxygen Saturation - - Inhaled Oxygen Concentration - - Weight 68.9 kg (152 lb) 08/27/2018 9:25 AM CDT Height 162.6 cm (5' 4) 08/27/2018 9:25 AM CDT Body Mass Index 26.09 08/27/2018 9:25 AM CDT documented in this encounter Progress Notes Hunter Roman MD - 08/27/2018 9:15 AM CDT SUBJECTIVE: Alyssa Aguillon is a 43 year old female who presents to clinic today for the following health issues: She comes in because she has had some anxiety and depression. Discussion today in regards to suicideideation appears to be negative PHQ 9 is placed in her chart. She was previously seen this was more for weight control and she was started on Wellbutrin. Her weight has been stable she does not think it helped to lose Weight. It was thought that this might help stabilize her mood also. She comes in today she is had a quite a few life events. Partner of many years and she says up and left. Medication Followup of Wellbutrin ?? Taking Medication as prescribed: yes ?? Side Effects: None ?? Medication Helping Symptoms: Not well enough. Been taking for few months Additional history: as documented Reviewed and updated as needed this visit by clinical staff Reviewed and updated as needed this visit [...] - colorectal No family hx of ROS: Constitutional, HEENT, cardiovascular, pulmonary, GI, , musculoskeletal, neuro, skin, endocrine and psych systems are negative, except as otherwise noted. OBJECTIVE: BP (!) 134/92 (BP Location: Right arm, Patient Position: Sitting, Cuff Size: Adult Regular) Pulse 73 Temp 98.5 ??F (36.9 ??C) (Oral) Resp 14 Ht 1.626 m (5' 4) Wt 68.9 kg (152 lb) ? No BMI 26.09 kg/m?? Body mass index is 26.09 kg/m??. GENERAL: alert and moderate distress HENT: ear canals and TM's normal, nose [...] edema SKIN: no suspicious lesions or rashes NEURO: Normal strength and tone, mentation intact and speech normal BACK: no CVA tenderness, no paralumbar tenderness Diagnostic Test Results: none ASSESSMENT/PLAN: 1. Depression, unspecified depression type; Acute history of situational depression. No evidence by history and examination that she has any suicidal ideations or any plans for suicide. She is current comfortable with her surroundings and with her daughter. Would like to institute antidepressant medication and would like to follow-up with counseling. Did discuss with her if she does feel as she is losing control or has ideation of suicide or plans she is to call immediately certainly can go to the emergency room. Support was offered today. In addition she is to follow-up with her primary care who I think will be here in this clinic eitherDr. Churchill or Dr. Marinelli - citalopram (CELEXA) 10 MG tablet; Take 1 tablet (10 mg) by mouth daily Dispense: 30 tablet; Refill: 3 - MENTAL HEALTH REFERRAL - Adult; Outpatient Treatment; Individual/Couples/Family/Group Therapy/Health Psychology[place] [facility] [place] [facility] ; We will contact you to schedule the ap pointment or please call with any questions See Patient Instructions Hunter Roman MD [facility] documented in this encounter Plan of Treatment Scheduled Referrals Name Type Priority Associated Diagnoses Order S [facility] REFERRAL - Referral Routine Depression, unsp ecified Ordered: 08/27/2018 Adult; Outpatient depression type Treatment; Individual/Couples/Famil y/Group Therapy/Health Psychology; [facility] [place] [facility] ; We will contact you to schedule the appointment or please call with any questions documented as of this encounter Visit Diagnoses Diagnosis Depression, unspecified depression type - Primary documented in this encounter Additional Health Concerns Assessment Noted Time PHQ-9 Depression Total Score: 12 08/27/2018 9:51 AM CD T documented as of this encounter Care Teams Site Safety Representative Relationship Specialty Start Date End Date No Ref-Primary, Physician PCP - General 03/13/18 09/15/18 Raghu Freed PA-C Assigned PCP 06/07/18 09/19/18 [address] [place] [address] documented as of this encounter
--- OUTSIDE RECORDS SUMMARY | 2022-02-09 01:00 | XMS_ITS | Encounter Summary ---
:1975 Author Organization [facility] [place] Address [address] [facility] [place] [address] Care Team Providers Name Role Phone Naidu Susie Lonny NITROGLYCERIN NITRATOR OPERATOR BATCH Primary Care Provider Reason for Visit Reason Onset Date Comments Telephone 04/07/2017 med check Encounter Details Date Type Department Care Team Description 04/07/2017 Virtual Visit [facility] Jocy Bowen Overweight [place] APRN SQL SERVER DBA DEVELOPER [address] [place] [address] [place] [address] [phone] Social History Tobacco Use Types Packs/Day Years [...] as of this encounter Progress Notes Jocy oBwen APRN CNP - 04/07/2017 1:40 PM CST Alyssa Aguillon is a 41 year old female who is being evaluated via a telephone visit. The patient has been notified of following: This telephone visit will be conducted via a call between you and your physician/provider. We have found that certain health care needs can be provided without the need for a physical exam. This service lets us provide the care you need with a short phone conversation. If a prescription is necessary we can send it directly to your pharmacy. If lab work is needed we can place an order for that and you can then stop by our lab to have the test done at a later time. We will bill your insurance company for this service. Please check with your medical insurance if this type of visit is covered. You may be responsible for the cost of this type of visit if insurance coverage is denied. The typical cost is $30 (10min), $59 (11-20min) and $85 (21-30min). Most often these visits are shorter than 10 minutes. If during the course of the call the physician/provider feels a telephone visit is not appropriate, you will not be charged for this service. Consent has been obtained for this service by 2 care team members: yes. See the scanned image in themedical record. Alyssa Joel Aguillon complains of Telephone (med check ) I have reviewed and updated the patient's Past Medical History, Social History, Family History and Medication List. ALLERGIES Compazine [prochlorperazine] and Tamiflu [oseltamivir] KAI Biswas ([place] signature) Additional provider notes: She notes she has lost 3-4 pounds this past month. She is working out 2x/week. She tried to increase this, but has had things going on at home that kept her from working out more frequently. She is also trying work on portion control as well as increase more fruits and vegetables. No side effects to the medication. She would like to continue on the medication. Assessment/Plan: (E66.3) Overweight Comment: Seeing weight loss on phentermine. Will refill for her. Discussed short term nature of medication. Will have her follow up in 1 mos. If continuing to do well; would refill for 1 more additional month at that time. Plan: phentermine 15 MG capsule I have reviewed the note as documented above. This accurately captures the substance of my conversation with the patient, Jocy Bowen CNP Total time of call between patient and provider was 5 minutes DREN'S AIDE documented in this encounter Plan of Treatment Not on filedocumented as of this encounter Visit Diagnoses Diagnosis Overweight documented in this encounter Care Teams Living Specialist Relationship Specialty Start Date End Date Susie Naidu, NITROGLYCERIN NITRATOR OPERATOR BATCH PCP - General Nurse Practitioner - Family 03/18/16 documented as of this encounter
--- OUTSIDE RECORDS SUMMARY | 2022-02-09 01:00 | XMS_ITS | Encounter Summary ---
:1975 Author Organization [facility] Address [address] [place] [address] Care Team Providers Name Role Phone Susie Naidu OFFICE AUTOMATION CLERK Primary Care Provider Reason for Visit Reason Onset Date Comments Refill Request 08/23/2016 Phentermine 15mg tab Encounter Details Date Type Department Care Team Description 08/23/2016 Refill [facility] Susie Naidu, OFFICE AUTOMATION CLERK Refill Request Clinic [facility] (Phentermine 15mg tab) [address] [place], [place] [address] [address] [place] [address] [phone] (Wo rk) Social History Tobacco Use Types [...] this encounter Miscellaneous Notes Telephone Encounter - Yusef Castaneda - 08/23/2016 10:42 AM CDT Per Susie's request. Called patient asked how she was doing and if she wanted to keep on the same dosage. Patient states she is down to 154 lbs from 162 lbs. States she feels she has more energy and not experiencing any problems. Will stay on the 15 mg. Said she would consider going up if it stopped working. Telephone Encounter - Brigid Gonzales RN - 08/23/2016 10:02 AM CDT Routing refill request to provider for review/approval because: Drug not on the [facility] refill protocol Ok to post date script? She only has 4 tablets. Pt. Reports she has been taking daily and has not missed a dose. Thinks are working well. Please advise RX monitoring program ([facility]) reviewed: AGENCY DEVELOPMENT MANAGER reviewed- no concerns Last fill: 07/31/2016, #30 [facility] profile: [email or web address] Brigid Gonzales RN, BSN, PHN Telephone Encounter - Halina Rivas - 08/23/2016 9:56 AM CDT Phentermine 15mg tab Last Written Prescription Date: 07/31/16 Last Fill Quantity: 30, # refills: 0 Last Office Visit with [facility], [facility] or [facility] prescribing provider: 07/31/16 documented in this encounter Plan of Treatment Not on filedocumented as of this encounter Visit Diagnoses Diagnosis Overweight documented in this encounter Care Teams Web Master Relationship Specialty Start Date End Date Susie Naidu NP PCP - General Nurse Practitioner - Family 03/18/16 documented as of this encounter
--- OUTSIDE RECORDS SUMMARY | 2022-02-09 01:01 | XMS_ITS | Encounter Summary ---
:1975 Author Organization [facility] Address [address] [place] [address] Care Team Providers Name Role Phone Clinic - 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 Abdominal pain, epigastric; [address] [facility] EMERGENCY PHYSICIANS Throat pain [facility] [id number] [address] [facility] [phone] [place], [place] [address] (Wo rk) Social History [...] Sign Reading Time Taken Comments Blood Pressure 101/82 09/21/2015 4:42 PM CDT Pulse 96 09/21/2015 3:00 PM CDT Temperature 36.7 ??C (98 ??F) 09/21/2015 3:00 PM CDT Respiratory Rate 16 09/21/2015 4:42 PM CDT Oxygen Saturation 99% 09/21/2015 4:42 PM CDT Inhaled Oxygen Concentration - - Weight - - Height - - Body Mass Index - - documented in this encounter Discharge Instructions Discharge John Soni APRN BARTACKER - 09/21/2015 4:30 PM CDT Images from the original note were not included. ?? Epigastric Pain (Uncertain Cause) Epigastric pain can be a sign of disease in the upper abdomen. Common causes include: Acid reflux (stomach acid flowing up into the esophagus) Gastritis (irritation of the stomach lining) Peptic Ulcer Disease Inflammation of the pancreas Gallstone Infection in the gallbladder Pain may be dull or burning. It may spread upward to the chest or to the back. There may be other symptoms such as belching, bloating, cramps or hunger pains. There may be weight loss or poor appetite,nausea or vomiting. Since the diagnosis of your pain is not certain yet, further tests will be needed. Sometimes the doctor will treat you for the most likely condition to see if there is improvement before doing further tests. Home Care: Unless told otherwise, you may try antacids (Mylanta or Maalox) help neutralize stomach acid. This may relieve your pain. Take 1-2 tablespoons or tablets one hour after meals and at bedtime. The liquidform coats the stomach better than the chewable tablets and is preferred. If Tagamet (cimetidine), Zantac (ranitidine), or Carafate (sucralfate) has also been prescribed, allow one hour between taking this medicine and taking the antacids. Avoid foods that irritate the stomach. Follow a light diet until you are feeling better. Avoid alcohol, caffeine, and tobacco. Talk to your doctor before taking any crwp-ltm-itprwfc medicine that contains aspirin or an anti-inflammatory drug such as ibuprofen, Advil, Motrin, Naprosyn, or Aleve. Follow Up with your doctor or as advised if you do not improve over the next 48 hours. Get Prompt Medical Attention if any of the following occur: Stomach pain worsens or moves to the right lower part of the abdomen Chest pain appears, or if it worsens or spreads to the chest, back, neck, shoulder, or arm Frequent vomiting (can???t keep down liquids) Blood in the stool or vomit (red or black color) Feeling weak or dizzy, fainting, or having trouble breathing Fever of 100.4??F (38??C) or higher, or as directed by your healthcare provider Abdominal swelling ?? [id number] [employer]. [address] [place] [address]. All rights reserved. This information is not intended as a substitute for professional medical care. Always follow your healthcare professional's instructions. Self-Care for Sore Throats Sore throats occur for many reasons, such as colds, allergies, and infections caused by viruses or bacteria. In any case, your throat becomes red and sore. Your goal for self-care is to reduce your discomfort while giving your throat a chance to heal. Moisten and Soothe Your Throat Try a sip of water first thing after waking up. Keep your throat moist by drinking??6 or more glasses of clear liquids every day. Run a cool-air humidifier in your room overnight. Avoid cigarette smoke.?? Suck on throat lozenges, cough drops, hard candy, ice chips, or frozen fruit- juice bars. Use the sugar-free versions if your diet or medical condition require them. Gargle to Ease Irritation Gargling every hour or??2 can ease irritation. Try gargling with??1 of these solutions: 1/4??teaspoon of salt in??1/2 cup of warm water An rvnq-avw-xmwvnmv anesthetic gargle Use Medication for More Relief Yhgn-yyt-aghvkec medication can reduce sore throat symptoms. Ask your pharmacist if you have questions about which medication to use: Ease pain with anesthetic sprays. Aspirin or an aspirin substitute also helps. Remember, never give aspirin to anyone 18 or younger, or if you are already??taking blood thinners.?? For sore throats caused by allergies, try antihistamines to block the allergic reaction. Remember: unless a sore throat is caused by a bacterial infection, antibiotics won???t help you. Prevent Future Sore Throats Stop smoking or reduce contact with secondhand smoke. Smoke irritates the tender throat lining. Limit contact with pets and with allergy-causing substances, such as pollen and mold. When you???re around someone with a sore throat or cold, wash your hands frequently to keep viruses or bacteria from spreading. Don???t strain your vocal cords. ?? [id number] [employer]. [address] [place] [address], [place] [address]. All rights reserved. This information is not intended as a substitute for professional medical care. Always follow your healthcare professional's instructions. Discharge Instructions Upper Respiratory Infection The upper respiratory tract includes the sinuses, nasal passages, pharynx, and larynx. A URI, or upper respiratory infection, is an infection of any of the parts of the upper airway. Symptoms include runny nose, congestion, sore throat, cough, and fever. URIs are almost always caused by a virus. Antibiotics do not help with virus infections, so are not used for an ordinary URI. A URI is very contagious through coughing and nasal secretions; make sure you wash your hands often and clean surfaces after sneezing, coughing or touching them. Viruses can live on surfaces for up to 3 days. Return to the Emergency Department if: ??? Any of the symptoms you have get much worse. ??? You seem very sick, like being too weak to get up. ??? You have any new symptoms, especially serious things like chest pain. ??? You are short of breath. ??? You have a severe headache. ??? You are vomiting so much you can???t keep fluids or medicines down. ??? You have confusion or seem unusually drowsy. ??? You have a seizure or convulsion. Follow-up: ??? You should start to improve in 3 - 5 days. A cough can linger for up to six weeks, but overall you should be feeling much better. See your doctor if you have a fever for more than 3 days, or if youare not feeling better within 5 days. What can I do to help myself? Fill any prescriptions the doctor gave you and take them right away ??? If you have a fever, get plenty of rest and drink lots of fluids, especially water. Using a humidifier or saline nose spray will also help loosen secretions. ??? What clothes or blankets you have on won???t change your fever. Do what is comfortable for you. ??? Bathing or sponging in lukewarm water may help you feel better. ??? Tylenol?? (acetaminophen), Motrin?? (ibuprofen), or Advil?? (ibuprofen) help bring fever down and may help you feel more comfortable. Be sure to read and follow the package directions, and ask yourdoctor if you have questions. ??? Do not drink alcohol. ??? Decongestants may help you feel better. You may use decongestant nose sprays Afrin?? (oxymetazoline) or Mikie-Synephrine?? (phenylephrine hydrochloride) for up to 3 days, or may use a decongestant tablet like Sudafed?? (pseudoephedrine). If you were given a prescription for [...] call or return to the Emergency Department. Opioid Medication Information Pain medications are among the most commonly prescribed medicines, so we are including this information for all our patients. If you did not receive pain medication or get a prescription for pain medicine, you can ignore it. You may have been given a prescription for an opioid (narcotic) pain medicine and/or have received apain medicine while here in the Emergency Department. These medicines can make you drowsy or impaired. You must not drive, operate dangerous equipment, or engage in any other dangerous activities whiletaking these medications. If you drive while taking these medications, you could be arrested for DUI, or driving under the influence. Do not drink any alcohol while you are taking these medications. Opioid pain medications can cause addiction. If you have a history of chemical dependency of any type, you are at a higher risk of becoming addicted to pain medications. Only take these prescribed medications to treat your pain when all other options have been tried. Take it for as short a time and asfew doses as possible. Store your pain pills in a secure place, as they are frequently stolen and provide a dangerous opportunity for children or visitors in your house to start abusing these powerful medications. We will not replace any lost or stolen medicine. As soon as your pain is better, you should flush all your remaining medication. Many prescription pain medications contain Tylenol?? (acetaminophen), including Vicodin??, Tylenol #3??, Pelican??, Lortab??, and Percocet??. You should not take any extra pills of Tylenol?? if you are using these prescription medications or you can get very sick. Do not ever take more than 3000 mg of acetaminophen in any 24 hour period. All opioids tend to cause constipation. Drink plenty of water and eat foods that have a lot of fiber, such as fruits, vegetables, prune juice, apple juice and high fiber cereal. Take a laxative if you don???t move your bowels at least every other day. Miralax??, Milk of Magnesia, Colace??, or Senna?? can be used to keep you regular. Remember that you can always come back to the Emergency Department if you are not able to see your regular doctor in the amount of time listed above, if you get any new symptoms, or if there is anything that worries you. documented in this encounter Medications at Time of Discharge Medication Sig Dispensed Refills Start Date End Date omeprazole (PRILOSEC) 40 Take 1 capsule (40 30 capsule 0 10/21/2015 MG capsule mg) by mouth daily sucralfate (CARAFATE) 1 Take 10 mLs (1 g) by 200 mL 0 09/26/2015 GM/10ML suspension mouth 4 times daily for 5 days fluticasone (FLONASE) 50 [place] 1-2 sprays 16 g 3 09/1406/12/2016 MCG/ACT nasal into both nostrils sprayIndications: daily Dysfunction of Eustachian tube, bilateral, Tinnitus, bilateral loratadine (CLARITIN) 10 Take 10 mg by mouth 0 07/31/2016 MG tablet daily documented as of this encounter ED Notes John Marcano APRN CNP - 09/21/2015 3:16 PM CDT History Chief Complaint: Abdominal Pain and Pharyngitis HPI Alyssa Aguillon is a 40 year old female who presents to the emergency department today with abdominal pain and pharyngitis. That patient seen by her primary care provider on 09/14/15 for a sore throat, ear pain, tinnitus, and sinus congestion. She had a negative strep screen, negative mononucleosis sc reen, and negative culture performed. She also had a unremarkable urine analysis. Her blood work didshow anemia, but this was attributed to a poor iron diet. She was discharged with Flonase for her sinus. She has consulted with gastroenterology in the past and was advised with her primary to follow up with gastroenterology. The patient states that she has had a persistent sore throat with congestion, post nasal drip. She also had persistent epigastric and right upper quadrant pain with associated nausea. She denies feversbut she has felt chilled. She denies any vomiting, or changes or bowel habits. Her last menstrual period was at the end of August. Allergies: Compazine Medications: Claritin Flonase Past Medical History: Abnormal pap smear Menorrhagia, premenopausal Anemia Past Surgical History: LEEP Family History: History reviewed. No pertinent family history. Social History: Smoking Status: Never smoker Smokeless Tobacco: Never used Alcohol Use: Yes - rare Marital Status: Single Review of Systems Constitutional: Positive for chills. Negative for fever. HENT: Positive for congestion, postnasal drip and sore throat. Gastrointestinal: Positive for nausea and abdominal pain. Negative for vomiting, diarrhea, constipation and blood in stool. All other systems reviewed and are negative. Physical Exam First Vitals: BP: (!) 144/102 mmHg Pulse: 96 Temp: 98 ??F (36.7 ??C) Resp: 20 SpO2: 98 % Physical Exam General: Alert, No obvious discomfort, well kept Eyes: PERRL, conjunctivae pink no scleral icterus or conjunctival injection ENT: Moist mucus membranes, posterior oropharynx clear without erythema or exudates, No lymphadenopathy, Normal voice. Mild post nasal drainage. Resp: Lungs clear to auscultation bilaterally, no crackles/rubs/wheezes. Good air movement CV: Normal rate and rhythm, no murmurs/rubs/gallops GI: Abdomen soft and non-distended. Normoactive BS. Mid epigastric and right upper quadrant tenderness. No guarding or rebound, No masses. Hyperactive bowel sounds. Skin: Warm, dry. No rashes or petechiae Musculoskeletal: No peripheral edema or calf tenderness, Normal gross ROM Neuro: Alert and oriented to person/place/time, normal sensation Psychiatric: Normal affect, cooperative, good eye contact No lymphadenopathy Emergency Department Course Imaging: Radiology findings were communicated with the patient who voiced understanding of the findings. US abdomen limited: IMPRESSION: No cholelithiasis or biliary dilatation. Final reading per radiology Laboratory: Laboratory findings were communicated with the patient who voiced understanding of the findings. CMP: AWNL Creatinine 0.65 Lipase: 148 Interventions: 1535 Zofran 4 mg IV 1623 GI cocktail 15 ml PO 1623 Protonix 40 mg IV 1627 Advil 600 mg PO Emergency Department Course: Nursing notes and vitals reviewed. I performed an exam of the patient as documented above. IV was inserted and blood was drawn for laboratory testing, results above. The patient was sent for a US abdomen limited while in the emergency department, results above. I discussed the treatment plan with the patient. They expressed understanding of this plan and consented to discharge. They will be discharged home with instructions for care and follow up. In addition, the patient will return to the emergency department if their symptoms persist, worsen, if new symptoms arise or if there is any concern. All questions were answered. I personally reviewed the laboratory results with the Patient and answered all related questions prior to discharge. Impression & Plan Medical Decision Making: Alyssa Aguillon is a 40 year old female who presents to the emergency department today with nasal congestion, post nasal drainage, sore throat, and epigastric abdominal pain. She had similar symptomsone week ago and was seen by her primary care provider and had a negative strep, negative mono performed. Since that time her symptoms have persistent. Exam shows a likely viral illness. There is no indication for chololithiasis or biliary dilatation with negative ultrasound and negative laboratory studies. She has a normal lipase. This most likely represents gastritis versus ulcerative disease. Thismay also represent a viral illness. The patient is given the above medications with some relief of he r symptoms. She is placed on Carafate and Omeprazole. She is recommended to follow up with her primary care provider in 5-7 days if no improvement and soon if she becomes worse. She is advised to consume a bland diet. She should return to the ED if she develops increasing or uncontrollable pain, hightfevers, nausea or vomiting, or for any other concerns. Diagnosis: 1. (R09.81) Nasal congestion 2. (R10.13) Abdominal pain, epigastric 3. (R07.0) Throat pain Discharge Medications: Prilosec Carafate Scribe Disclosure: I, Raghu Pryordeenaemma, am serving as a scribe at 3:17 PM on 09/21/2015 to document services personally performed by John Marcano APRN*, based on my observations and the provider's statements to me. 09/21/2015 [facility] EMERGENCY DEPARTMENT John Marcano APRN BARTACKER 09/21/15 1809 Debbie Millan RN - 09/21/2015 3:03 PM CDT Patient presents with complaints of sore throat and abdominal pain that has been there for about a month. She also complains of nausea, but denies vomiting. She is alert and oriented, ABCs intact. documented in this encounter Plan of Treatment Not on filedocumented as of this encounter Procedures Procedure Name Priority Date/Time Associated Comments Diagnosis US ABDOMEN LIMITED STAT 09/21/2015 4:18 PM Res ults for this CDT procedure are i n the results section. LIPASE STAT 09/21/2015 3:40 PM Results f or this CDT procedure are i n the results section. COMPREHENSIVE STAT 09/21/2015 3:40 PM Results for this METABOLIC PANEL CDT procedure ar e in the results section. documented in this encounter Results US Abdomen Limited (09/21/2015 4:18 PM CDT) Anatomical Region Laterality Modality Abdomen/Pelvis Ultrasound Specimen (Source) Anatomical Location Collection Method / Collectio n Time Received Time / Laterality Volume Impressions 09/21/2015 4:19 PM CDT IMPRESSION: No cholelithiasis or biliary dilatation. MAYRA MERCER MD Narrative 09/21/2015 4:19 PM CDT US ABDOMEN LIMITED 09/21/2015 4:18 PM HISTORY: Pain. ??Eval Gallstones, Cholec ystitis, CBD dilatation FINDINGS: No cholelithiasis or gallbladd er wall thickening. No biliary dilatation. The liver, right kidney, and visualized portion of the pancreas appear within normal limits. Procedure Note Tani Mercer MD - 09/21/2015Formatt ing of this note might be different from the original. US ABDOMEN LIMITED 09/21/2015 4:18 PM HISTORY: Pain. Eval Gallstones, Cholecys titis, CBD dilatation FINDINGS: No cholelithiasis or gallbladd er wall thickening. No biliary dilatation. The liver, right kidney, and visualized portion of the pancreas appear within normal limits. IMPRESSION: No cholelithiasis or biliary dilatation. MAYRA MERCER MD John Marcano APRN BARTACKER IMG US ORDERABLES Lipase (09/21/2015 3:40 PM CDT) athologist Signature Lipase 148 73 - 393 [facility] U/L [facility] Specimen Anatomical Collection Method Collection Time Receive d Time (Source) Location / / Volume Laterality Blood specimen 09/21/2015 3:40 PM 016 3:48 (specimen) CDT PM CDT John Marcano APRN BARTACKER LAB - BLOOD ORDERABLES Performing Organization Address City/State/ZIP Code Phon e Number M [facility] [address] [place] [address] [facility] [address] [phone] Comprehensive metabolic panel (09/21/2015 3:40 PM CDT) [facility] gist Method Time Signature Sodium 137 133 - 144 [place] mmol/L [facility] Potassium 3.6 3.4 - 5.3 [place] mmol/L [facility] Chloride 107 94 - 109 [place] mmol/L [facility] Carbon Dioxide 25 20 - 32 [place] mmol/L [facility] Anion Gap 5 3 - 14 [place] mmol/L [facility] Glucose 83 70 - 99 [place] mg/dL [facility] Urea Nitrogen 10 7 - 30 [place] mg/dL [facility] Creatinine 0.65 0.52 - [place] 1.04 [facility] mg/dL HOSPITAL GFR Estimate >90 >60 [place] Non GFR Calc mL/min/1. [place] [id number] [facility] GFR Estimate If >90 >60 [place] Black GFR Calc mL/min/1. [place] 7m2 [facility] Calcium 8.5 8.5 - [place] 10.1 [facility] mg/dL [facility] Bilirubin Total 0.9 0.2 - 1.3 [place] mg/dL [facility] Albumin 3.6 3.4 - 5.0 [place] g/dL [facility] Protein Total 7.7 6.8 - 8.8 [place] g/dL [facility] Alkaline 56 40 - 150 [place] Phosphatase U/L [facility] ALT 21 0 - 50 [place] U/L [facility] AST 25 0 - 45 [place] U/L [facility] Specimen Anatomical Collection Method Collection Time Receive d Time (Source) Location / / Volume Laterality Blood specimen 09/21/2015 3:40 PM 016 3:48 (specimen) CDT PM CDT John Marcano APRN BARTACKER LAB - BLOOD ORDERABLES Performing Organization Address City/State/ZIP Code Phon e Number [place] [address] [place] [address] [facility] [address] [phone] documented in this encounter Visit Diagnoses Diagnosis Nasal congestion Other diseases of nasal cavity and sinus es Abdominal pain, epigastric Throat pain documented in this encounter Administered Medications Inactive Administered Medications - up to 3 most recent administrations Medication Order MAR Action Action Date Dose Rate Site 0.9% sodium chloride BOLUS New Bag 09/21/2015 3:35 PM CDT 1,000 mLs 2000 mL/hr Intravenous, 1,000 mL, ONCE, at 2,000 mL/hr, Administer over 30 Minutes, On [place] 09/21/15 at 1530, For 1 dose ibuprofen (ADVIL,MOTRIN) tablet 600 mg Given 09/21/2015 4:27 PM CDT 600 mg 600 mg, Oral, ONCE, On [place] 09/21/15 at 1624, For 1 dose lidocaine (XYLOCAINE) 2 % 15 mL, alum & mag Given 09/21/2015 4:23 PM CDT 30 mLs hydroxide-simethicone (MYLANTA ES/MAALOX ES) 15 mL GI Cocktail 30 mL, Oral, ONCE, On [place] 09/21/15 at 1618, For 1 dose ondansetron (ZOFRAN) injection 4 mg Given 09/21/2015 3:35 PM CDT 4 mg 4 mg, Intravenous, ONCE, Administer over 2-5 Minutes, On [place] 09/21/15 at 1530, For 1 dose pantoprazole(PROTONIX) 40 mg vial Given 09/21/2015 4:23 PM CDT 40 mg 40 mg, Intravenous, Administer over 15 Minutes, ONCE, On [place] 09/21/15 at 1618, For 1 dose documented in this encounter Active and Recently Administered Medications Times are shown in CDT. Scheduled Medication Order 09/19/2015 09/20/2015 09/21/2015 0.9% sodium chloride BOLUS (COMPLETED) 153 (New Bag - Provider: Julia Nicole, DELLA)1635 (Stopped - Provider: Romelia Ramirez RN) Intravenous, 1,000 mL, ONCE, at 2,000 mL /hr, for 30 Minutes, [place] 09/21/15 at 1530, For 1 dose ibuprofen (ADVIL,MOTRIN) tablet 600 mg (COMPLETED) 162 (Given - Provider: Romelia Ramirez RN) 600 mg, Oral, ONCE, [place] 09/21/15 at 1624, For 1 dose lidocaine (XYLOCAINE) 2 % 15 mL, alum & mag hydroxide-simethicone (MYLANTA ES/MAALOX ES) 15 mL GI Cocktail (COMPLETED) 162 (Given - Provider: Romelia Ramirez RN) 30 mL, Oral, ONCE, [place] 09/21/15 at 1618, For 1 dose ondansetron (ZOFRAN) injection 4 mg (COMPLETED) 153 (Given - Provider: Julia Nicole RN) 4 mg, Intravenous, ONCE, for 2 Minutes, [place] 09/21/15 at 1530, For 1 dose pantoprazole(PROTONIX) 40 mg vial (COMPLETED) 162 (Given - Provider: Romelia Ramirez RN) 40 mg, Intravenous, for 15 Minutes, ONCE, [place] 09/21/15 at 1618, F or 1 dose documented in this encounter Care Teams Field Sales Specialist Relationship Specialty Start Date End Date Clinic - [facility] PCP - General 09/21/15 03/17/16 [id number] [place] [address] documented as of this encounter
--- OUTSIDE RECORDS SUMMARY | 2022-02-09 01:01 | XMS_ITS | Encounter Summary ---
:1975 Author Organization [place] Address [address] [facility] [place] [address] Care Team Providers Name Role Phone Félix Arteaga MD Primary Care Provider + Reason for Visit Reason Comments Pharyngitis Abnormal Bleeding Problem Encounter Details Date Type Department Care Team Description 06/14/2014 Office Visit [facility] Dirk Arias Throat pa in (Primary Dx); Clinic Mara Whitfield MD Anemia [address] [address] [facility], [address] [place] [address] [place], [place] [phone] (Wo rk) [address] [phone] Social History Tobacco Use Types Packs/Day Years [...] Sign Reading Time Taken Comments Blood Pressure 102/72 06/14/2014 1:57 PM PACKAGING LINE ATTENDANT Pulse 80 06/14/2014 1:57 PM PACKAGING LINE ATTENDANT Temperature 37.1 ??C (98.8 ??F) 06/14/2014 1:57 PM PACKAGING LINE ATTENDANT Respiratory Rate - - Oxygen Saturation 100% 06/14/2014 1:57 PM PACKAGING LINE ATTENDANT Inhaled Oxygen Concentration - - Weight 69.9 kg (154 lb) 06/14/2014 1:57 PM PACKAGING LINE ATTENDANT Height - - Body Mass Index 26.43 02/27/2014 6:03 PM CDT documented in this encounter Progress Notes Dirk Arias MD - 06/14/2014 12:05 PM CST HPI SUBJECTIVE: Alyssa Aguillon is a 38 year old female who presents to clinic today for the following health issues: Sore Throat ?? Duration: this morning ( last week 2 of 4 kids Dx with strep) ?? Description (location/character/radiation): scratchy throat ?? Intensity: mild ?? Accompanying signs and symptoms: headache, fatigue, chills ?? History (similar episodes/previous evaluation): hx of strep during winter- ?? Precipitating or alleviating factors: None ?? Therapies tried and outcome: tylenol ( 1000mg) Also concerned about Menstrual cycle. Had normal cycle 05/21/14-05/25/14 and then this Friday had brown blood in underwear. Has turned into more of a regular period but was earlier than her normal dates. Sudden onset of fatigue, scratchy throat early this am. Has some chills. No fever, congestion, cough, vomiting or diarrhea. Is having notable HU[place]. Used some tylenol. Is also feeling a bit week as typically has long heavy periods. Is having a second early period currently, started two days ago. Worried about being anemic and this contributing to feeling poorly. No flu shot this year. NO regular meds. No tobacco. Review of Systems Constitutional: Positive for malaise/fatigue. Negative for fever. HENT: Positive for sore throat. Negative for congestion. Respiratory: Negative for cough and shortness of breath. Cardiovascular: Negative for palpitations. Neurological: Positive for headaches. Physical Exam Constitutional: She is well-developed, well-nourished, and in no distress. No distress. HENT: Right Ear: Tympanic membrane, external ear and ear canal normal. Left Ear: Tympanic membrane, external ear and ear canal normal. Mouth/Throat: Oropharynx is clear and moist. No oropharyngeal exudate. Eyes: Conjunctivae are normal. Cardiovascular: Normal rate, regular rhythm and normal heart sounds. Pulmonary/Chest: Effort normal and breath sounds normal. Lymphadenopathy: She has no cervical adenopathy. Skin: Skin is warm and dry. No rash noted. Nursing note and vitals reviewed. (784.1) Throat pain (primary encounter diagnosis) Comment: suspect early URI, advised sx may increase oever next several days Plan: Strep, Rapid Screen, Influenza A/B antigen, Beta strep group A culture (285.9) Anemia Comment: Fe supplement Plan: CBC with platelets RTC in 1m Dirk Arias MD AGING LINE ATTENDANT documented in this encounter Nursing Notes Olga Mariee CMA - 06/14/2014 2:04 PM CST Chief Complaint Patient presents with ??? Pharyngitis ??? Abnormal Bleeding Problem Initial BP 102/72 Pulse 80 Temp(Src) 98.8 ??F (37.1 ??C) (Oral) Wt 154 lb (69.854 kg) SpO2 100% LMP 06/12/2014 Estimated body mass index is 26.42 kg/(m^2) as calculated from the following: Height as of 14: 5' 4 (1.626 m). Weight as of this encounter: 154 lb (69.854 kg). BP completed using cuff size: svetlana Mariee CMA AGING LINE ATTENDANT documented in this encounter Plan of Treatment Not on filedocumented as of this encounter Procedures Procedure Name Priority Date/Time Associated Diagnosis Comme nts RAPID STREP SCREEN Routine 06/14/2014 2:27 PM Throat Pain Res ults for this THROAT SWAB PACKAGING LINE ATTENDANT procedure are i n the results section. BETA HEMOLYTIC Routine 06/14/2014 2:27 PM Throat Pain Results for this STREP GROUP A PACKAGING LINE ATTENDANT procedure are in CULTURE the results section. INFLUENZA A/B Routine 06/14/2014 2:26 PM Throat Pain Results for this ANTIGEN PACKAGING LINE ATTENDANT procedure are i n the results section. CBC WITH PLATELETS Routine 06/14/2014 2:20 PM Anemia Res ults for this PACKAGING LINE ATTENDANT procedure are i n the results section. documented in this encounter Results Beta strep group A culture (06/14/2014 2:27 PM PACKAGING LINE ATTENDANT) Component Value Ref Test Analysis Performed At [facility] Range Method Time Signature Specimen Throat [place] Description [facility] Culture Micro No Beta [place] Streptococcus CLINICS isolated [place] Micro Report FINAL 06/16/2014 [place] Status [facility] Specimen Anatomical Collection Method Collection Time Receive d Time (Source) Location / / Volume Laterality Specimen from 06/14/2014 2:27 PM 06/14/19 15 2:28 throat PACKAGING LINE ATTENDANT PM PACKAGING LINE ATTENDANT (specimen) Dirk Arias MD LAB - MICRO GENERAL ORDERABL ES Performing Organization Address City/[facility] Code Phon e Number [address] [address] Strep, Rapid Screen (06/14/2014 2:27 PM PACKAGING LINE ATTENDANT) Component Value Ref Test Analysis Performed At [facility] Kyp Range Method Time Signature Specimen Throat [place] Description [facility] Rapid Strep A NEGATIVE: No Group A strepto coccal antigen detected by immunoassay, await [place] Screen culture report. CLINICS [place] Micro Report FINAL 06/14/2014 [place] Status [facility] Specimen Anatomical Collection Method Collection Time Receive d Time (Source) Location / / Volume Laterality Specimen from 06/14/2014 2:27 PM 06/14/19 15 2:28 throat PACKAGING LINE ATTENDANT PM PACKAGING LINE ATTENDANT (specimen) Dirk Arias MD LAB - MICRO GENERAL ORDERABL ES Performing Organization Address [facility] Phon e Number [address] [address] Influenza A/B antigen (06/14/2014 2:26 PM PACKAGING LINE ATTENDANT) [facility] Method Time Signature Influenza A/B Nasal [place] Agn Specimen CLINICS [place] Influenza A Negative NEG [facility] Test results must be correlated with clinical data. If ne cessary, results CLINICS should be confirmed by a molecular assay or viral culture. [place] Influenza B Negative NEG [facility] Test results must be correlated with clinical data. If ne cessary, results CLINICS should be confirmed by a molecular assay or viral culture. [place] Specimen Anatomical Collection Method Collection Time Receive d Time (Source) Location / / Volume Laterality Swab from nasal 06/14/2014 2:26 PM 2014 2:27 sinus (specimen) PACKAGING LINE ATTENDANT PM PACKAGING LINE ATTENDANT Dirk Arias MD LAB - MICRO GENERAL ORDERABL ES Performing Organization Address City/[facility]/ZIP Code Phon e Number [address] [place] [address] (ABNORMAL) CBC with platelets (06/14/2014 2:20 PM PACKAGING LINE ATTENDANT) athologist Signature WBC 7.7 4.0 - 11.0 [place] 10e9/L [facility] RBC Count 3.82 3.8 - 5.2 [place] 10e12/L [facility] Hemoglobin 9.7 (L) 11.7 - 15.7 [place] g/dL [facility] Comment: Reviewed: OK with previous Hematocrit 30.9 (L) 35.0 - 47.0 % [facility] MCV 81 78 - 100 fl [facility] MCH 25.4 (L) 26.5 - 33.0 pg [facility] MCHC 31.4 (L) 31.5 - 36.5 g/dL [place] CLIN ICS [place] RDW 14.3 10.0 - 15.0 % [facility] Platelet Count 288 150 - 450 10e9/L [facility] Specimen Anatomical Collection Method Collection Time Receive d Time (Source) Location / / Volume Laterality Blood specimen 06/14/2014 2:20 PM 015 2:21 (specimen) PACKAGING LINE ATTENDANT PM PACKAGING LINE ATTENDANT Dirk Arias MD LAB - BLOOD ORDERABLES Performing Organization Address City/State/ZIP Code Phon e Number [facility] [place] [address] documented in this encounter Visit Diagnoses Diagnosis Throat pain - Primary Anemia Anemia, unspecified documented in this encounter Care Teams Hair Or Beauty Salon Manager Relationship Specialty Start Date End Date Félix Arteaga MD PCP - General 06/25/05 08/29/14 [facility] [address] [place] [address] documented as of this encounter
--- OUTSIDE RECORDS SUMMARY | 2022-02-09 01:01 | XMS_ITS | Encounter Summary ---
:1975 Author Organization [place] Address [address] 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
--- OUTSIDE RECORDS SUMMARY | 2022-02-09 01:01 | XMS_ITS | Encounter Summary ---
:1975 Author Organization [place] Address [address] [facility] [place] [address] Care Team Providers Name Role Phone Clinic - [facility] Primary Care Provider Reason for Visit Reason Onset Date Comments No Show 01/03/2016 Encounter Details Date Type Department Care Team Description 01/03/2016 Office Visit [facility] Elijah, NO SHOW (Primary Dx) Clinic [place] Britt Lares MD [address] [place] [address] [address] [place] [phone] Social History Tobacco Use Types Packs/Day Years [...] this encounter Progress Notes Nahomy Cordova - 01/03/2016 3:01 PM CDT This patient was a no show for this scheduled appointment. documented in this encounter Plan of Treatment Not on filedocumented as of this encounter Visit Diagnoses Diagnosis NO SHOW - Primary documented in this encounter Care Teams Photographic Editor Relationship Specialty Start Date End Date Clinic - [facility] PCP - General 09/21/15 03/17/16 [address] [place] [address] documented as of this encounter
--- OUTSIDE RECORDS SUMMARY | 2022-02-09 01:01 | XMS_ITS | Encounter Summary ---
:1975 Author Organization [place] Address [address] [facility] [place] [address] Care Team Providers Name Role Phone Unavailable Primary Care Provider Unavailable Reason for Visit Reason Comments Gastrointestinal Problem Abdominal bloating over the last year or so Blood Draw requesting iron testing Encounter Details Date Type Department Care Team Description 08/31/2014 Office Visit [facility] Ladarius Mccain Abdomi nal pain, generalized (Primary Dx); Clinic [place] JEREMY Dugan Flatulence, eructation, and gas pain; [place] [address] [facility] Adjustment disorder with depressed mood [facility], [address] [place] [address] [place], [place] [phone] (Wo rk) [address] [phone] Social History Tobacco Use Types Packs/Day Years [...] Sign Reading Time Taken Comments Blood Pressure 120/84 08/31/2014 9:32 AM CDT Pulse 84 08/31/2014 9:32 AM CDT Temperature 36.6 ??C (97.9 ??F) 08/31/2014 9:32 AM CDT Respiratory Rate 20 08/31/2014 9:32 AM CDT Oxygen Saturation - - Inhaled Oxygen Concentration - - Weight 70.8 kg (156 lb) 08/31/2014 9:32 AM CDT Height - - Body Mass Index 26.78 02/27/2014 6:03 PM CDT documented in this encounter Progress Notes Ladarius Mccain PA-C - 08/31/2014 9:23 AM CDT HPI SUBJECTIVE: Alyssa Aguillon is a 39 year old female who presents to clinic today for the following health issues: ABDOMINAL PAIN ?? Onset: past year ?? Description: Character: Dull ache, Fullness and Cramping Location: luisa-umbilical region Radiation: None ?? Intensity: moderate ?? Progression of Symptoms: worse constant with eating ?? Accompanying Signs & Symptoms: Fever/Chills?: no Gas/Bloating: YES Nausea: no Vomitting: no Diarrhea?: no Constipation:YES Dysuria or Hematuria: no ?? History: Trauma: no Previous similar pain: no Previous tests done: none ?? Precipitating factors: Does the pain change with: Food: YES BM: no Urination: no ?? Alleviating factors: nothing ?? Therapies Tried and outcome: pepto bismol, ?? LMP: End of July Bloating, midabdominal. Lifelong tendency to constipation. No change in diet or exercise. 15-20lb weight change in last year. Feeling quite stressed about the weight change. Also having stress in her life. Daughter graduating.Has 7 kids. Age 8-23. Significant other diagnosed in last month with hepatitis C- she is very worried about this. No pain in RUQ or back- no jaundice or urinary changed noted. Problem list and histories reviewed & adjusted, as indicated. Additional history: as documented BP Readings from Last 3 Encounters: 08/31/14 120/84 06/14/14 102/72 03/01/14 110/60 Wt Readings from Last 3 Encounters: 08/31/14 156 lb (70.761 kg) 06/14/14 154 lb (69.854 kg) 03/01/14 148 lb (67.132 kg) Labs reviewed in [facility] Problem list, Medication list, Allergies, and Medical/Social/Surgical histories reviewed in [facility] andupdated as appropriate. ROS: Constitutional, HEENT, cardiovascular, pulmonary, gi and gu systems are negative, except as otherwise noted. OBJECTIVE: BP 120/84 Pulse 84 Temp(Src) 97.9 ??F (36.6 ??C) (Oral) Resp 20 Wt 156 lb (70.761 kg) ? No Body mass index is 26.76 kg/(m^2). GENERAL: healthy, alert and no distress NECK: [...] lesions or rashes PSYCH: mentation appears normal, tearful and anxious Diagnostic Test Results: Results for orders placed in visit on 08/31/14 (from the past 24 hour(s)) H PYLORI ANTIBODY IGG Result Value Ref Range Specimen Description Whole Blood Heliobacter pylori Antibody Screen Value: No detectable IgG antibody to Helicobacter pylori. If current infection is suspected, please submit a new specimen in 4 to 6 weeks. Micro Report Status FINAL 08/31/2014 ASSESSMENT/PLAN: Problem List Items Addressed This Visit None Visit Diagnoses Abdominal pain, generalized - Primary Relevant Medications omeprazole 20mg OTC qd 1m1r priLOSEC Other Relevant Orders CBC with platelets (Completed) Comprehensive metabolic panel (Completed) Hepatitis C antibody (Completed) Lipase (Completed) H Pylori antibody IgG (Completed) Flatulence, eructation, and gas pain Relevant Orders CBC with platelets (Completed) H Pylori antibody IgG (Completed) Adjustment disorder with depressed mood Relevant Medications buPROPion (WELLBUTRIN XL) 24 hr tablet Other Relevant Orders PHQ-9 ORDER - select when completing PHQ-9 (Completed) GENERAL ANXIETY DISORDER QUESTIONNAIRE (CATHLEEN) (Completed) MEDICATIONS: Orders Placed This Encounter Medications ??? omeprazole 20 MG tablet Sig: Take 1 tablet (20 mg) by mouth daily Take 30-60 minutes before a meal. Dispense: 30 tablet Refill: 1 ??? buPROPion (WELLBUTRIN XL) 150 MG 24 hr tablet Sig: Take 1 tablet (150 mg) by mouth every morning Dispense: 30 tablet Refill: 1 FUTURE APPOINTMENTS: - Follow-up visit in one month for med check, sooner if needed. Ladarius Mccain PA-C [facility] Physical Exam documented in this encounter Nursing Notes Linda Pollard MA - 08/31/2014 9:35 AM CDT Chief Complaint Patient presents with ??? Gastrointestinal Problem Abdominal bloating over the last year or so ??? Blood Draw requesting iron testing Initial BP 120/84 Pulse 84 Temp(Src) 97.9 ??F (36.6 ??C) (Oral) Resp 20 Wt 156 lb (70.761 kg) ? No Estimated body mass index is 26.76 kg/(m^2) as calculated from the following: Height as of 14: 5' 4 (1.626 m). Weight as of this encounter: 156 lb (70.761 kg). BP completed using cuff size: regular Linda Pollard MA documented in this encounter Plan of Treatment Not on filedocumented as of this encounter Procedures Procedure Name Priority Date/Time Associated Comments Diagnosis H PYLORI ANTIBODY IGG Routine 08/31/2014 10:09 Abdominal pain, Results for this AM CDT generalized procedure are in Flatulence, the results eructation, and gas section. pain LIPASE Routine 08/31/2014 10:08 Abdominal pain, Results for this AM CDT generalized procedure are i n the results section. HEPATITIS C ANTIBODY Routine 08/31/2014 10:08 Abdominal pain, Results for this AM CDT generalized procedure are i n the results section. COMPREHENSIVE Routine 08/31/2014 10:08 Abdominal pain, Results for this METABOLIC PANEL AM CDT generalized procedure ar e in the results section. CBC WITH PLATELETS Routine 08/31/2014 10:08 Abdominal pain, Re sults for this AM CDT generalized procedure are in Flatulence, the results eructation, and gas section. pain documented in this encounter Results H Pylori antibody IgG (08/31/2014 10:09 AM CDT) Component Value Ref Test Analysis Performed At [facility] Range Method Time Signature Specimen Whole Blood [place] Description [facility] No detectable IgG antibody t o Helicobacter pylori. If current infection is [facility] pylori Antibody suspected, please submit a new specimen in 4 to 6 we eks. [facility] Micro Report FINAL [place] Status 08/31/2014 [facility] Specimen Anatomical Collection Method Collection Time Receive d Time (Source) Location / / Volume Laterality Blood specimen 08/31/2014 10:09 5 (specimen) AM CDT 10:10 AM CDT Ladarius Mccain PA-C LAB - BLOOD ORDERABLES Performing Organization Address City/State/ZIP Code Phon e Number [facility] [place] [address] Lipase (08/31/2014 10:08 AM CDT) P athologist Signature Lipase 190 73 - 393 [facility] U/[facility] Specimen Anatomical Collection Method Collection Time Receive d Time (Source) Location / / Volume Laterality Blood specimen 08/31/2014 10:08 5 (specimen) AM CDT 10:09 AM CDT Ladarius Mccain PA-C LAB - BLOOD ORDERABLES Performing Organization Address City/[facility]/ZIP Code Phon e Number [address] [address] [facility] Hepatitis C antibody (08/31/2014 10:08 AM CDT) Component Value Ref Test Analysis Performed At [facility] Range Method Time Signature Hepatitis C Nonreactive NR [facility] Antibody Assay performance character istics have not been established for newborns, ID MEDICAL infants, and children [facility] Specimen Anatomical Collection Method Collection Time Receive d Time (Source) Location / / Volume Laterality Blood specimen 08/31/2014 10:08 5 (specimen) AM CDT 10:09 AM CDT Ladarius Mccain PA-C LAB - BLOOD ORDERABLES Performing Organization Address City/[facility]/ZIP Code Phon e Number [facility] [address] [place] [address] [place] (ABNORMAL) Comprehensive metabolic panel (08/31/2014 10:08 AM CDT) [facility] Method Time Signature Sodium 139 133 - 144 [facility] mmol/L [facility] Potassium 4.0 3.4 - 5.3 [place] mmol/L [facility] Chloride 107 94 - 109 [place] mmol/L [facility] Carbon Dioxide 25 20 - 32 [place] mmol/L [facility] Anion Gap 7 3 - 14 [place] mmol/L [facility] Glucose 59 (L) 70 - 99 [place] mg/dL [facility] Urea Nitrogen 10 7 - 30 [place] mg/dL [facility] Creatinine 0.66 0.52 - [place] 1.04 [facility] mg/dL [facility] GFR Estimate >90 >60 [place] Non GFR Calc mL/min/1. CLINICS 7m2 [facility] GFR Estimate If >90 >60 [place] Black GFR Calc mL/min/1. CLIN ICS 7m2 [facility] Calcium 9.0 8.5 - [place] 10.1 [facility] mg/dL [facility] Bilirubin Total 0.9 0.2 - 1.3 [place] mg/dL [facility] Albumin 3.9 3.4 - 5.0 [place] g/dL [facility] Protein Total 8.2 6.8 - 8.8 [place] g/dL [facility] Alkaline 52 40 - 150 [place] Phosphatase U/L [facility] ALT 17 0 - 50 [place] U/L [facility] AST 21 0 - 45 [place] U/L [facility] Specimen Anatomical Collection Method Collection Time Receive d Time (Source) Location / / Volume Laterality Blood specimen 08/31/2014 10:08 5 (specimen) AM CDT 10:09 AM CDT Ladarius Mccain PA-C LAB - BLOOD ORDERABLES Performing Organization Address City/State/ZIP Code Phon e Number [facility] [address] [place] [address] (ABNORMAL) CBC with platelets (08/31/2014 10:08 AM CDT) [facility] gist Method Time Signature WBC 6.1 4.0 - 11.0 [place] 10e9/L [place] RBC Count 4.31 3.8 - 5.2 [place] 10e12/L [facility] Hemoglobin 11.1 (L) 11.7 - [place] 15.7 g/dL [facility] Hematocrit 35.0 35.0 - [place] 47.0 % [facility] MCV 81 78 - 100 [facility] MCH 25.8 (L) 26.5 - [place] 33.0 pg [place] MCHC 31.7 31.5 - [place] 36.5 g/dL [facility] RDW 15.3 (H) 10.0 - [place] 15.0 % [facility] Platelet Count 301 150 - 450 [place] 10e9/L [facility] Specimen Anatomical Collection Method Collection Time Receive d Time (Source) Location / / Volume Laterality Blood specimen 08/31/2014 10:08 5 (specimen) AM CDT 10:09 AM CDT Ladarius Mccain PA-C LAB - BLOOD ORDERABLES Performing Organization Address City/State/ZIP Code Phon e Number [facility] [place] [address] documented in this encounter Visit Diagnoses Diagnosis Abdominal pain, generalized - Primary Flatulence, eructation, and gas pain Adjustment disorder with depressed mood documented in this encounter
--- OUTSIDE RECORDS SUMMARY | 2022-02-09 01:01 | XMS_ITS | Encounter Summary ---
:1975 Author Organization [place] Address [address] [facility] [facility] [place] [address] Care Team Providers Name Role Phone Félix Arteaga MD Primary Care Provider + Reason for Visit Reason Onset Date Comments Nurse Advice Line 08/16/2014 Encounter Details Date Type Department Care Team Description 08/16/2014 Telephone [facility] Félix Arteaga Advice Line [facility] [place] [address] [facility] [id number] [address] [phone] [place], [place] [address] (Wo rk) Social History Tobacco Use Types [...] this encounter Miscellaneous Notes Telephone Encounter - Eleonora Campo RN - 08/16/2014 10:48 AM CDT Pt calling with concerns about her thumb. She got stuck with a safety pin on Friday and has some bruising and pain worse with repetive movement. No drainage, red streaking, or warmth but does have a little swelling. Advised to clean thumb well and apply antibiotic ointment with wrap, refrain from repetitious movements when able, ice it and if there are any signs of infection or wrosening pain/swelling she should be seen in clinic. Also gave her Urgent Care hours at clinic. Pt expressed understanding and acceptance of the plan. Pt had no further questions at this time. Advised can call back to clinic at any time with concerns. Eleonora Campo RN, BSN documented in this encounter Plan of Treatment Not on filedocumented as of this encounter Visit Diagnoses Not on filedocumented in this encounter Care Teams Physician Chief Of Pathology Relationship Specialty Start Date End Date Félix Arteaga MD PCP - General 06/25/05 08/29/14 [facility] [address] [place] [address] documented as of this encounter
--- OUTSIDE RECORDS SUMMARY | 2022-02-09 01:01 | XMS_ITS | Encounter Summary ---
:1975 Author Organization [place] Address [address] [facility] [place] [address] Care Team Providers Name Role Phone Unavailable Primary Care Provider Unavailable Reason for Visit Reason Comments Musculoskeletal Problem Chills, dizzy, skin itchy, l eft hand bruising. Poked self month ago with safety pin. c ould b related? Urgent Care Encounter Details Date Type Department Care Team Description 09/13/2014 Office Visit [facility] Hunter Roman, Hand j oint pain, left Urgent Care Ida ray MD (Primary Dx) [id number] [address] [facility] [place] [id number] Social History Tobacco Use Types Packs/Day Years [...] Sign Reading Time Taken Comments Blood Pressure 120/60 09/13/2014 6:14 PM CDT Pulse 82 09/13/2014 6:14 PM CDT Temperature 36.7 ??C (98 ??F) 09/13/2014 6:14 PM CDT Respiratory Rate 12 09/13/2014 6:14 PM CDT Oxygen Saturation 98% 09/13/2014 6:14 PM CDT Inhaled Oxygen Concentration - - Weight 71.9 kg (158 lb 9.6 oz) 09/13/2014 6:14 PM CDT Height 162.6 cm (5' 4) 09/13/2014 6:14 PM CDT Body Mass Index 27.22 09/13/2014 6:14 PM CDT documented in this encounter Progress Notes Hunter Roman MD - 09/13/2014 7:57 PM CDT SUBJECTIVE: Alyssa Aguillon is a 39 year old female complains of pain in the left hand. No history of injury other than she poked herself with a needle one month ago. She was doing well after the hands swelled up until yesterday. She relates this to her daughter massaging the hand and then after having swelling. No fever or chills, some bruising near the thenar, feeling some systemic symptoms such as dizziness OBJECTIVE: BP 120/60 Pulse 82 Temp(Src) 98 ??F (36.7 ??C) (Oral) Resp 12 Ht 5' 4 (1.626 m) Wt 158 lb9.6 oz (71.94 kg) BMI 27.21 kg/m2 SpO2 98% Exam; the left hand does appear to be swollen on the thenar and hyperthenar neither one of these areas is tense. There is some slight tenderness on the thenar X-rays negative ASSESSMENT: 1. Hand joint pain, left ; there is some bruising to the thenar and she does have a little bit of swelling is not tense and appears to be more of an edema then and erythema. However having said that I probably would cover her with antibiotics since she has other systemic signs . PLAN: 1. CEPHALEXIN 500 MG PO CAPS 2.METHYLPREDNISOLONE (ALBA) 4 MG PO TABS If this was worse in the morning she is encouraged to return MAKSIM documented in this encounter Nursing Notes Tamika Obrien CMA - 09/13/2014 6:17 PM CDT Chief Complaint Patient presents with ??? Musculoskeletal Problem Chills, dizzy, skin itchy, left hand bruising. Poked self month ago with safety pin. could b related? Urgent Care Initial BP 120/60 Pulse 82 Temp(Src) 98 ??F (36.7 ??C) (Oral) Resp 12 Ht 5' 4 (1.626 m) Wt 158 lb 9.6 oz (71.94 kg) BMI 27.21 kg/m2 SpO2 98% Estimated body mass index is 27.21 kg/(m^2) as calculated from the following: Height as of this encounter: 5' 4 (1.626 m). Weight as of this encounter: 158 lb 9.6 oz (71.94 kg). BP completed using cuff size: regular, rt documented in this encounter Plan of Treatment Not on filedocumented as of this encounter Results XR Hand Left G/E 3 Views (09/13/2014 6:35 PM CDT) Anatomical Region Laterality Modality Hand, Wrist Left Computed Radiography Specimen (Source) Anatomical Location Collection Method / Collectio n Time Received Time / Laterality Volume Impressions 09/13/2014 6:41 PM CDT IMPRESSION: Normal. CHAVO KEARNEY MD Narrative 09/13/2014 6:41 PM CDT XR HAND LT G/E 3 VW ?? 09/13/2014 6:35 PM HISTORY: Pain in joint, hand COMPARISON: None. Procedure Note Chavo Kearney MD - 09/13/2014Form atting of this note might be different from the original. XR HAND LT G/E 3 VW 09/13/2014 6:35 PM HISTORY: Pain in joint, hand COMPARISON: None. IMPRESSION IMPRESSION: Normal. CHAVO KEARNEY MD Hunter Roman MD IMG DIAGNOSTIC IMAGING ORDER ALICIA documented in this encounter Visit Diagnoses Diagnosis Hand joint pain, left - Primary Hand joint pain, left documented in this encounter
--- OUTSIDE RECORDS SUMMARY | 2022-02-09 01:01 | XMS_ITS | Encounter Summary ---
:1975 Author Organization [place] Address [address] [facility] [place] [address] Care Team Providers Name Role Phone [facility] Primary Care Provider Reason for Visit Reason Comments Tinnitus Encounter Details Date Type Department Care Team Description 09/15/2015 Office Visit [facility] Raghu Freed Dysfunct ion of eustachian tube, bilateral (Primary Dx); [facility] JEREMY [place] Tinnitus, bilateral; [id number] [facility] [id number] [address] [place] [id number] [phone] Social History Tobacco Use Types Packs/Day Years [...] Sign Reading Time Taken Comments Blood Pressure 118/68 09/15/2015 8:00 AM CDT Pulse 77 09/15/2015 8:00 AM CDT Temperature 36.8 ??C (98.3 ??F) 09/15/2015 8:00 AM CDT Respiratory Rate 14 09/15/2015 8:00 AM CDT Oxygen Saturation 99% 09/15/2015 8:00 AM CDT Inhaled Oxygen Concentration - - Weight 73.5 kg (162 lb) 09/15/2015 8:00 AM CDT Height 167.6 cm (5' 6) 09/15/2015 8:00 AM CDT Body Mass Index 26.15 09/15/2015 8:00 AM CDT documented in this encounter Progress Notes Raghu Freed PA-C - 09/15/2015 7:59 AM CDT SUBJECTIVE: Alyssa Aguillon is a 40 year old female who presents to clinic today for the following health issues: RESPIRATORY SYMPTOMS ?? Duration: x 1 year. Worsening over the last 2 days. ?? Description ear pain bilateral ?? Severity: moderate ?? Accompanying signs and symptoms: None at baseline. Over last 2 days has sore throat (worse in morning), mild productive cough, and nasal congestion. ?? History (predisposing factors): none ?? Precipitating or alleviating factors: None ?? Therapies tried and outcome: none Patient also has a history of iron deficient anemia for which she does not take iron for. She also takes ibuprofen often for headaches. Patient has also been seen by neurology for dizziness in the recent past and MRI was obtained, whichwas normal. CBC RESULTS: Recent Labs Lab Test 09/14/15 1554 WBC 7.5 RBC 3.95 HGB 9.9* HCT 31.2* MCV 79 MCH 25.1* MCHC 31.7 RDW 14.9 PLT 273 Problem list and histories reviewed & adjusted, as indicated. Additional history: as documented Problem list, Medication list, Allergies, and Medical/Social/Surgical histories reviewed in [facility] andupdated as appropriate. ROS: Constitutional, HEENT, cardiovascular, pulmonary, gi and gu systems are negative, except as otherwise noted. OBJECTIVE: BP 118/68 mmHg Pulse 77 Temp(Src) 98.3 ??F (36.8 ??C) (Oral) Resp 14 Ht 5' 6 (1.676 m) Wt162 lb (73.483 kg) BMI 26.16 kg/m2 SpO2 99% Body mass index is 26.16 kg/(m^2). GENERAL: healthy, alert and no distress EYES: Eyes grossly normal to inspection, PERRL and conjunctivae and sclerae normal HENT: normal cephalic/atraumatic, both ears: clear effusion, nasal mucosa edematous , oral mucous membranes moist, sinuses: not tender and oropharynx with mild erythema. NECK: no adenopathy, no asymmetry, masses, or scars and thyroid normal to palpation RESP: lungs clear to auscultation - no rales, rhonchi or wheezes CV: regular rate and rhythm, normal S1 S2, no S3 or S4, no murmur, click or rub NEURO: Normal strength and tone, sensory exam grossly normal, mentation intact, speech normal, cranial nerves 2-12 intact, gait normal including heel/toe/tandem walking, Romberg normal and rapid alternating movements normal PSYCH: mentation appears normal, affect normal/bright Diagnostic Test Results: none ASSESSMENT/PLAN: (H69.83) Dysfunction of eustachian tube, bilateral (primary encounter diagnosis) Comment: felt likely possible cause of at least worsening symptoms with exam findings and other URI symptoms. Neuro exam was normal. Will treat with flonase and recommending claritin-D over the counter. If symptoms fail to improve in 1 month or continues to worsen, may have patient see ENT. Plan: fluticasone (FLONASE) 50 MCG/ACT nasal spray -Medication use and side effects discussed with the patient. Patient is in complete understanding and agreement with plan. (H93.13) Tinnitus, bilateral Comment: See above, may be worsening by eustachian tube dysfunction. But given chronic history, I feel it is likely related to her iron deficiency. Recommending ferrous sulfate otc once daily for 6 weeks and then RTC for revaluation. Plan: fluticasone (FLONASE) 50 MCG/ACT nasal spray -Medication use and side effects discussed with the patient. Patient is in complete understanding and agreement with plan. Follow up: see above Raghu Freed PA-C [facility] documented in this encounter Plan of Treatment Not on filedocumented as of this encounter Visit Diagnoses Diagnosis Dysfunction of Eustachian tube, bilatera l - Primary Tinnitus, bilateral Unspecified tinnitus Other iron deficiency anemia documented in this encounter Care Teams Strip Picker Relationship Specialty Start Date End Date Clinic - [facility] PCP - General 09/21/15 03/17/16 [address] [place] [address] documented as of this encounter
--- OUTSIDE RECORDS SUMMARY | 2022-02-09 01:01 | XMS_ITS | Encounter Summary ---
:1975 Author Organization [place] Address [address] [facility] [place] [address] Care Team Providers Name Role Phone Susie Naidu NP Primary Care Provider Reason for Visit Reason Comments RECHECK Encounter Details Date Type Department Care Team Description 04/05/2016 Office Visit [facility] David, Grace Acute sinus itis, recurrence not specified, unspecified location (Primary Dx); Charo Perdomo APRN Constipation, unspecified co nstipation type [address] [employer] [facility] [place] [phone] [address] [facility] [phone] [facility] [place] [address] Social History Tobacco Use Types Packs/Day Years [...] Sign Reading Time Taken Comments Blood Pressure 114/74 04/05/2016 1:20 PM BUSINESS PROCESS SPECIALIST Pulse 76 04/05/2016 1:20 PM BUSINESS PROCESS SPECIALIST Temperature 37 ??C (98.6 ??F) 04/05/2016 1:20 PM BUSINESS PROCESS SPECIALIST Respiratory Rate 16 04/05/2016 1:20 PM BUSINESS PROCESS SPECIALIST Oxygen Saturation - - Inhaled Oxygen Concentration - - Weight 74.9 kg (165 lb 1.6 oz) 04/05/2016 1:20 PM BUSINESS PROCESS SPECIALIST Height - - Body Mass Index 26.65 03/18/2016 1:42 PM BUSINESS PROCESS SPECIALIST documented in this encounter Patient Instructions Patient InstructionsMoliGrace bagley APRN CNP - 04/05/2016 1:56 PM BUSINESS PROCESS SPECIALIST 1. Doxycycline 2. Warm packs to face -2 Colace (stool softener) daily -Lots of warm water -Little bit of pear or prune juice NESS PROCESS SPECIALIST documented in this encounter Progress Notes Grace Hernandez APRN CNP - 04/05/2016 1:19 PM CST SUBJECTIVE: Alyssa Aguillon is a 40 year old female who presents to clinic today for the following health issues Seen 03/18 for sinusitis and given Augmentin,stopped due to SE of upset stomach,saw dentist and veneer matcher who decided its sinus versus teeth,symptoms are worse. Also having cough, non productive. No SHORTNESS OF BREATH or wheezing. No fever. Intermittent constipation her whole life. Doesn't know what to try. Has never tried medications. No weight loss, bloody stools, abdominal pain, or change in stool pattern. ROS: const/heent/resp otherwise negative OBJECTIVE: BP 114/74 mmHg Pulse 76 Temp(Src) 98.6 ??F (37 ??C) (Tympanic) Resp 16 Wt 165 lb 1.6 oz (74.889 kg) LMP 02/26/2016 CONSTITUTIONAL: Alert, well-nourished, well-groomed, NAD RESP: Lungs CTA. No wheeze, rhonchi, rales. CV: HRRR S1 S2 No MRG. No peripheral edema HEENT: Eyes: Conjunctiva pink and moist. Ears: Ear canals unremarkable. TMs pearly eid bilaterally.Bony landmarks and light reflexes intact. No erythema. Nose: Turbinates pink and moist. Throat: OP pink and moist. No tonsillar enlargement or exudates. No postnasal drip. Neck: No lymphadenopathy or masses. Thyroid smooth, non-tender, and non-enlarged. ASSESSMENT/PLAN: (J01.90) Acute sinusitis, recurrence not specified, unspecified location (primary encounter diagnosis) Comment: Sinusitis not resolved because she only took 2 days of Augmentin. Cough likely related to postnasal drainage. Plan: doxycycline (VIBRAMYCIN) 100 MG capsule Warm packs to face QID. Increase fluids. Ibuprofen for pain. Discussed supportive cares and reasons to return. Discussed reasons to seek care urgently. (K59.00) Constipation, unspecified constipation type Comment: Chronic and intermittent. Plan: Stool softeners prn. Increase fluids. Gradually increase fiber. F/u with PCP if no improvement. TONNY Vizcaino-MINH. NESS PROCESS SPECIALIST documented in this encounter Nursing Notes Monica Burton CMA - 04/05/2016 1:25 PM CST Chief Complaint Patient presents with ??? RECHECK Initial BP 114/74 mmHg Pulse 76 Temp(Src) 98.6 ??F (37 ??C) (Tympanic) Resp 16 Wt 165 lb 1.6oz (74.889 kg) LMP 02/26/2016 Estimated body mass index is 26.66 kg/(m^2) as calculated from the following: Height as of 03/18/16: 5' 6 (1.676 m). Weight as of this encounter: 165 lb 1.6 oz (74.889 kg). BP completed using cuff size: svetlana Burton CMA(AAMA) NESS PROCESS SPECIALIST documented in this encounter Plan of Treatment Not on filedocumented as of this encounter Visit Diagnoses Diagnosis Acute sinusitis, recurrence not specifie d, unspecified location - Primary Constipation, unspecified constipation t ype documented in this encounter Care Teams Field Mechanic Relationship Specialty Start Date End Date Susie Naidu MAIL TELLER PCP - General Nurse Practitioner - Family 03/18/16 documented as of this encounter
--- OUTSIDE RECORDS SUMMARY | 2022-02-09 01:01 | XMS_ITS | Encounter Summary ---
:1975 Author Organization [place] Address [address] [facility] [place] [address] Care Team Providers Name Role Phone [facility] Primary Care Provider Reason for Visit Reason Onset Date Comments Panel Management 11/24/2015 Encounter Details Date Type Department Care Team Description 11/24/2015 Telephone [facility] Raghu Freed, Panel Management [address] [phone] Social History Tobacco Use Types Packs/Day Years [...] Telephone Encounter - Tanna Jalloh MA - 11/24/2015 2:21 PM CDT Panel Management Review Patient has the following on her problem list: None Composite cancer screening Chart review shows that this patient is due/due soon for the following Pap Smear Summary: Patient is due/failing the following: PAP Action needed: Patient needs office visit for physical with pap. Type of outreach: Phone, spoke to patient. pt declines to schedule at this time-states she does not know shedule and will call back to schedule. Questions for provider review: None KAI Miller Chart routed to Care Team . documented in this encounter Plan of Treatment Not on filedocumented as of this encounter Visit Diagnoses Not on filedocumented in this encounter Care Teams Frameman Relationship Specialty Start Date End Date [facility] - [facility] PCP - General 09/21/15 03/17/16 [address] [place] [address] documented as of this encounter
--- OUTSIDE RECORDS SUMMARY | 2022-02-09 01:01 | XMS_ITS | Encounter Summary ---
:1975 Author Organization [facility] Address [address] [facility] 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 Flatulence, eructation, and gas pain; [address] [facility] [address] [facility] Acute sinusitis with symptoms > 10 [place] [id number] [phone] Social History Tobacco Use Types Packs/Day Years [...] Reading Time Taken Comments Blood Pressure 124/80 02/21/2015 2:49 PM CDT Pulse 80 02/21/2015 2:49 PM CDT Temperature 36.9 ??C (98.4 ??F) 02/21/2015 2:49 PM CDT Respiratory Rate 14 02/21/2015 2:49 PM CDT Oxygen Saturation - - Inhaled Oxygen Concentration - - Weight 75.1 kg (165 lb 9.6 oz) 02/21/2015 2:49 PM CDT Height 167.6 cm (5' 6) 02/21/2015 2:49 PM CDT Body Mass Index 26.73 02/21/2015 2:49 PM CDT documented in this encounter Patient Instructions Patient InstructionsLyrci Carrasco Que, [facility]ES TEACHER - 02/21/2015 3:18 PM CDT Images from the original note were not included. Sinus Headaches Sinus headaches can cause a gnawing pain behind the nose and eyes. The pain most often gets worse inthe afternoon and evening. You may also run a fever. Sinus headaches are caused by colds or allergies that make the nasal passages inflamed or infected. To help prevent sinus headaches: ?? Treat colds promptly to keep mucus from backing up. ?? Avoid things that trigger sinus problems, such as pollens, dust, smoke, fumes, and strong odors. ?? Take allergy medications as directed by your doctor. To relieve the pain: ?? Keep your sinuses open and free of mucus. Try ggiw-zpe-slrvbsp sinus rinse products. ?? Use a nasal decongestant as directed to reduce the inflammation. ?? Drink fluids to keep the mucus thinner. This helps it drain more easily. You can also use a humidifier. ?? Apply hot packs to the area around your sinuses. Use a hot water bottle. ?? See your doctor if your sinus headache lasts more than two weeks. You may need medication for a sinus infection or an exam to??check for other headache conditions, like migraines. ?? [id number] [employer]. [address] [place] [address]. All rights reserved. This information is not intended as a substitute for professional medical care. Always follow your healthcare professional's instructions. Irritable Bowel Syndrome Irritable Bowel Syndrome (IBS) is a disorder of the intestines.??It is not uncommon. It is not a disease, but a group of symptoms caused by changes in the way your intestines work. The cause of IBS is not known. Symptoms of IBS include: ?? Abdominal pain, discomfort, and cramping ?? Diarrhea ?? Constipation or dry, hard stools ?? Mucous stool ?? Bloating ?? Feeling of incomplete bowel movements It usually results in one of 3 patterns of symptoms: ?? Chronic abdominal pain and constipation (spastic colitis) ?? Recurring episodes of diarrhea, with or without pain ?? Alternating diarrhea and constipation Home care No one knows exactly what??causes IBD. The goal is to control and relieve symptoms and prevent complications, so you can lead a full and active life. There is no cure for IBD, and no one treatment thatfits everyone. But you can do many things to manage your condition. Diet Your diet did not cause your IBD, but it can affect it. Unfortunately, no one diet works for everyone. You have to experiment. Below are some recommendations. Keep a food log to figure out what you aresensitive to. ?? Eat more slowly. Eat smaller amounts at a time, but more often. Remember, you can always eat more, but cannot eat less once you???ve eaten too much. ?? High-fiber foods are complicated. While they may help relieve constipation, they can make??your bloating, cramping, gas, and diarrhea worse. ?? Eat less sugar. ?? Try cutting out dairy products. Sometimes this helps. ?? Try cutting out foods that are high in fat and fatty meats. ?? You can control bloating or passing excess gas. Be careful with ???gassy?? vegetables and fruitslike beans, cabbage, broccoli, and cauliflower. ?? Be careful with carbonated beverages and fruit juices. They can make??your bloating and diarrhea worse. ?? Caffeine, alcohol, and stimulants can make symptoms worse. These include coffee, tea, sodas, energy drinks, and chocolate. Lifestyle Although stress does not cause IBD, it is a factor in flare-ups, and in the way you feel and react to your condition. ?? Look for factors that seem to worsen your symptoms. These include stress and emotions. ?? Counseling can help you handle stress. So can self-help measures like exercise, yoga, and meditation. ?? Depression can be a part of this illness. Your health care provider may prescribe antidepressant medicine. This may??help with diarrhea, constipation, and cramping, as well as with symptoms of depression. ?? Smoking doesn't cause IBD, but can make the symptoms worse. Medicines Your??health care provider??may prescribe medicines. Take them as directed. For acute flare-ups of your illness, your provider may give you prescription medicines. ?? Check with your??health care provider??before taking any medicines for diarrhea. ?? Avoid anti-inflammatory medicines like ibuprofen or naproxen. ?? Consider nutritional supplements. This is especially true if??your diarrhea is prolonged, or you aren't eating or are losing weight Follow-up care Follow up??with your??health care provider,??or as advised, if you don't start to get better over the next 2 to 3 days. If a stool sample was taken, or cultures were done, you will be told if they are positive, or if your treatment needs to be changed. You can call as directed for the results. If X-rays were taken, you will be told if there is a change in the reading, especially if it affectstreatment. Call 911 Call 911 if any of these occur: ?? Trouble breathing ?? Confusion ?? Very drowsy or trouble awakening ?? Fainting or loss of consciousness ?? Rapid heart rate When to seek medical advice Call your health care provider right away if any of these occur: ?? Abdominal pain gets worse ?? Constant abdominal pain that moves to the right-lower abdomen ?? You can't keep liquids down because of vomiting ?? Excessive diarrhea ?? Blood (red or black color) or mucus in your stool ?? Feeling very weak or dizzy, fainting, or extreme thirst ?? Fever of 100.4??F (38.0??C) or higher, or as directed by your health care provider ?? [id number] [employer]. [address] [place] [address]. All rights reserved. This information is not intended as a substitute for professional medical care. Always follow your healthcare professional's instructions. documented in this encounter Progress Notes Lyric Carrasco APRN CNP - 02/23/2015 2:42 PM CDT Quick Note: Marla Shah Your lab results came back within normal limits, with the exception of the iron level, this is causing some mild anemia. I have sent some iron replacement tabs to your pharmacy. This may make the constipation and bloating worse, you may need to take a stool softner- such as a cap of miralax every night, while taking this medication. We can recheck the level in 3 months. Please let us know if you have any questions. Thanks for coming in to the clinic. Lyric Carrasco APRN CNP Lyric Carrasco APRN CNP - 02/21/2015 2:53 PM CDT Images from the original note were not included. SUBJECTIVE: Alyssa Aguillon is a 39 year old female who presents to clinic today for the following health issues: Acute Illness Acute illness concerns: Headache and bloating. Bloating is an ongoing problem with constipation for which she has had multiple lab and imaging workups and has seen GI per her report. Onset: x 1 year ?? Fever: no patient states that she feels hot ?? Chills/Sweats: YES ?? Headache (location?): YES- Front of her head between her eyes ?? Sinus Pressure:YES ?? Conjunctivitis: no ?? Ear Pain: no ?? Rhinorrhea: YES ?? Congestion: no ?? Sore Throat: no ?? Cough: no ?? Wheeze: no ?? Decreased Appetite: no ?? Nausea: YES ?? Vomiting: no ?? Diarrhea: no ?? Dysuria/Freq.: no ?? Fatigue/Achiness: YES ?? Sick/Strep Exposure: no Therapies Tried and outcome: Tylenol, sudafed, emergan-C drink Problem list and histories reviewed & adjusted, as indicated. Additional history: as documented Patient Active Problem List Diagnosis ??? CARDIOVASCULAR SCREENING; LDL GOAL LESS THAN 160 ??? Anemia ??? Ovarian cyst ??? Menorrhagia ??? Abnormal Pap smear ??? Acute low back pain with disc symptoms, duration less than 6 weeks ??? Bulge of lumbar disc without myelopathy ??? Low back pain ??? Nausea Past Surgical History Procedure Laterality Date ??? Colposcopy cervix, loop electrode biopsy, combined years ago, 8 years ago LEEP History Substance Use Topics ??? Smoking status: Never Smoker ??? Smokeless tobacco: Never Used ??? Alcohol Use: Yes Comment: rare Family History Problem Relation Age of Onset ??? Family History Negative Mother ??? Family History Negative Father ??? Family History Negative Sister 2 ??? Breast Cancer No family hx of ??? Cancer - colorectal No family hx of ROS: Constitutional, HEENT, cardiovascular, pulmonary, gi and gu systems are negative, except as otherwise noted. OBJECTIVE: BP 124/80 mmHg Pulse 80 Temp(Src) 98.4 ??F (36.9 ??C) (Oral) Resp 14 Ht 5' 6 (1.676 m) Wt165 lb 9.6 oz (75.116 kg) BMI 26.74 kg/m2 LMP 02/02/2015 Body mass index is 26.74 kg/(m^2). GENERAL: healthy, alert and no distress EYES: Eyes grossly normal to inspection, PERRL and conjunctivae and sclerae normal HENT: normal cephalic/atraumatic, both ears: clear effusion, nasal mucosa edematous , rhinorrhea yellow, oropharynx clear, oral mucous membranes moist and sinuses: frontal tenderness on both sides NECK: no adenopathy, no asymmetry, masses, or scars and thyroid normal to palpation RESP: lungs clear to auscultation - no rales, rhonchi or wheezes CV: regular rate and rhythm, normal S1 S2, no S3 or S4, no murmur, click or rub, no peripheral edemaand peripheral pulses strong ABDOMEN: tenderness periumbilical, no organomegaly or masses and hyperactive bowel sounds, abdomen distended. No guarding or rebound tenderness. MS: no gross musculoskeletal defects noted, no edema SKIN: no suspicious lesions or rashes NEURO: Normal strength and tone, mentation intact and speech normal Diagnostic Test Results: Results for orders placed or performed in visit on 02/21/15 (from the past 24 hour(s)) CBC with platelets and differential Result Value Ref Range WBC 7.5 4.0 - 11.0 10e9/L RBC Count 4.02 3.8 - 5.2 10e12/L Hemoglobin 10.7 (L) 11.7 - 15.7 g/dL Hematocrit 32.9 (L) 35.0 - 47.0 % MCV 82 78 - 100 fl MCH 26.6 26.5 - 33.0 pg MCHC 32.5 31.5 - 36.5 g/dL RDW 14.1 10.0 - 15.0 % Platelet Count 299 150 - 450 10e9/L Diff Method Automated Method % Neutrophils 64.9 % % Lymphocytes 26.4 % % Monocytes 7.0 % % Eosinophils 1.2 % % Basophils 0.5 % Absolute Neutrophil 4.9 1.6 - 8.3 10e9/L Absolute Lymphocytes 2.0 0.8 - 5.3 10e9/L Absolute Monoctyes 0.5 0.0 - 1.3 10e9/L Absolute Eosinophils 0.1 0.0 - 0.7 10e9/L Absolute Basophils 0.0 0.0 - 0.2 10e9/L ESR: Erythrocyte sedimentation rate Result Value Ref Range Sed Rate 17 0 - 20 mm/h ASSESSMENT/PLAN: ICD-10-CM 1. Fatigue R53.83 CBC with platelets and differential Ferritin Iron and iron binding capacity 2. Flatulence, eructation, and gas pain R14.3 CBC with platelets and differential R14.1 Tissue transglutaminase ramone IgA and IgG R14.2 ESR: Erythrocyte sedimentation rate 3. Acute sinusitis with symptoms > 10 days J01.90 amoxicillin (AMOXIL) 875 MG tablet CONSULTATION/REFERRAL to Gi for unresolved issues after dietary changes. Discussed future colonoscopy also if sx continue. Instructed to keep a food diary and trial gluten free, dairy free diets and eliminate artificial sweeteners. Patient Instructions Sinus Headaches Sinus headaches can cause a gnawing pain behind the nose and eyes. The pain most often gets worse inthe afternoon and evening. You may also run a fever. Sinus headaches are caused by colds or allergies that make the nasal passages inflamed or infected. To help prevent sinus headaches: ?? Treat colds promptly to keep mucus from backing up. ?? Avoid things that trigger sinus problems, such as pollens, dust, smoke, fumes, and strong odors. ?? Take allergy medications as directed by your doctor. To relieve the pain: ?? Keep your sinuses open and free of mucus. Try [id number]-nifbnfl sinus rinse products. ?? Use a nasal decongestant as directed to reduce the inflammation. ?? Drink fluids to keep the mucus thinner. This helps it drain more easily. You can also use a humidifier. ?? Apply hot packs to the area around your sinuses. Use a hot water bottle. ?? See your doctor if your sinus headache lasts more than two weeks. You may need medication for a sinus infection or an exam to??check for other headache conditions, like migraines. ?? [id number] [employer]. [address] [place] [address], [place] [address]. All rights reserved. This information is not intended as a substitute for professional medical care. Always follow your healthcare professional's instructions. Irritable Bowel Syndrome Irritable Bowel Syndrome (IBS) is a disorder of the intestines.??It is not uncommon. It is not a disease, but a group of symptoms caused by changes in the way your intestines work. The cause of IBS is not known. Symptoms of IBS include: ?? Abdominal pain, discomfort, and cramping ?? Diarrhea ?? Constipation or dry, hard stools ?? Mucous stool ?? Bloating ?? Feeling of incomplete bowel movements It usually results in one of 3 patterns of symptoms: ?? Chronic abdominal pain and constipation (spastic colitis) ?? Recurring episodes of diarrhea, with or without pain ?? Alternating diarrhea and constipation Home care No one knows exactly what??causes IBD. The goal is to control and relieve symptoms and prevent complications, so you can lead a full and active life. There is no cure for IBD, and no one treatment thatfits everyone. But you can do many things to manage your condition. Diet Your diet did not cause your IBD, but it can affect it. Unfortunately, no one diet works for everyone. You have to experiment. Below are some recommendations. Keep a food log to figure out what you aresensitive to. ?? Eat more slowly. Eat smaller amounts at a time, but more often. Remember, you can always eat more, but cannot eat less once you???ve eaten too much. ?? High-fiber foods are complicated. While they may help relieve constipation, they can make??your bloating, cramping, gas, and diarrhea worse. ?? Eat less sugar. ?? Try cutting out dairy products. Sometimes this helps. ?? Try cutting out foods that are high in fat and fatty meats. ?? You can control bloating or passing excess gas. Be careful with ???gassy?? vegetables and fruitslike beans, cabbage, broccoli, and cauliflower. ?? Be careful with carbonated beverages and fruit juices. They can make??your bloating and diarrhea worse. ?? Caffeine, alcohol, and stimulants can make symptoms worse. These include coffee, tea, sodas, energy drinks, and chocolate. Lifestyle Although stress does not cause IBD, it is a factor in flare-ups, and in the way you feel and react to your condition. ?? Look for factors that seem to worsen your symptoms. These include stress and emotions. ?? Counseling can help you handle stress. So can self-help measures like exercise, yoga, and meditation. ?? Depression can be a part of this illness. Your health care provider may prescribe antidepressant medicine. This may??help with diarrhea, constipation, and cramping, as well as with symptoms of depression. ?? Smoking doesn't cause IBD, but can make the symptoms worse. Medicines Your??health care provider??may prescribe medicines. Take them as directed. For acute flare-ups of your illness, your provider may give you prescription medicines. ?? Check with your??health care provider??before taking any medicines for diarrhea. ?? Avoid anti-inflammatory medicines like ibuprofen or naproxen. ?? Consider nutritional supplements. This is especially true if??your diarrhea is prolonged, or you aren't eating or are losing weight Follow-up care Follow up??with your??health care provider,??or as advised, if you don't start to get better over the next 2 to 3 days. If a stool sample was taken, or cultures were done, you will be told if they are positive, or if your treatment needs to be changed. You can call as directed for the results. If X-rays were taken, you will be told if there is a change in the reading, especially if it affectstreatment. Call 911 Call 911 if any of these occur: ?? Trouble breathing ?? Confusion ?? Very drowsy or trouble awakening ?? Fainting or loss of consciousness ?? Rapid heart rate When to seek medical advice Call your health care provider right away if any of these occur: ?? Abdominal pain gets worse ?? Constant abdominal pain that moves to the right-lower abdomen ?? You can't keep liquids down because of vomiting ?? Excessive diarrhea ?? Blood (red or black color) or mucus in your stool ?? Feeling very weak or dizzy, fainting, or extreme thirst ?? Fever of 100.4??F (38.0??C) or higher, or as directed by your health care provider ?? [id number] [employer]. [address] [place] [address], [place] [address]. All rights reserved. This information is not intended as a substitute for professional medical care. Always follow your healthcare professional's instructions. Lyric Carrasco APRN CNP [facility] documented in this encounter Nursing Notes Ute Claire MA - 02/21/2015 2:53 PM CDT Chief Complaint Patient presents with ??? Headache ??? Nausea Initial BP 124/80 mmHg Pulse 80 Temp(Src) 98.4 ??F (36.9 ??C) (Oral) Resp 14 Ht 5' 6 (1.676m) Wt 165 lb 9.6 oz (75.116 kg) BMI 26.74 kg/m2 LMP 02/02/2015 Estimated body mass index is 26.74 kg/(m^2) as calculated from the following: Height as of this encounter: 5' 6 (1.676 m). Weight as of this encounter: 165 lb 9.6 oz (75.116 kg). BP completed using cuff size: regular rt arm Ute Claire MA documented in this encounter Plan of Treatment Not on filedocumented as of this encounter Procedures Procedure Name Priority Date/Time Associated Comments Diagnosis CBC WITH PLATELETS & Routine 02/21/2015 3:20 Fatigue Results for this DIFFERENTIAL PM CDT Flatulence, procedure are i n eructation, and the results gas pain section. TISSUE TRANSGLUTAMINASE Routine 02/21/2015 3:20 Flatulence, R esults for this RAMONE IGA AND IGG PM CDT eructation, and procedure are in gas pain the results section. IRON AND IRON BINDING Routine 02/21/2015 3:20 Fatigue Res ults for this CAPACITY PM CDT procedure are i n the results section. FERRITIN Routine 02/21/2015 3:20 Fatigue Results for this PM CDT procedure are i n the results section. ERYTHROCYTE Routine 02/21/2015 3:20 Flatulence, Results for this SEDIMENTATION RATE AUTO PM CDT eructation, and p rocedure are in gas pain the results section. documented in this encounter Results ESR: Erythrocyte sedimentation rate (02/21/2015 3:20 PM CDT) athologist Signature Sed Rate 17 0 - 20 mm/h [facility] Specimen Anatomical Collection Method Collection Time Receive d Time (Source) Location / / Volume Laterality Blood specimen 02/21/2015 3:20 PM 015 3:25 (specimen) CDT PM CDT Lyric Carrasco APRN, CNP LAB - BLOOD ORDERABLES Performing Organization Address City/[facility]/ZIP Code Phon e Number [facility] [id number] [place] [address] (ABNORMAL) Iron and iron binding capacity (02/21/2015 3:20 PM CDT) athologist Signature Iron 37 35 - 180 [place] ug/dL [facility] Iron Binding 429 240 - 430 [place] Cap ug/dL [facility] Iron Saturation 9 (L) 15 - 46 % [place] Index [facility] Specimen Anatomical Collection Method Collection Time Receive d Time (Source) Location / / Volume Laterality Blood specimen 02/21/2015 3:20 PM 015 3:25 (specimen) CDT PM CDT Lyric Carrasco APRN, CNP LAB - BLOOD ORDERABLES Performing Organization Address City/[facility]/ZIP Code Phon e Number [facility] [address] [place] [address] Tissue transglutaminase ramone IgA and IgG (02/21/2015 3:20 PM CDT) [facility] gist Method Time Signature Tissue <1.0 0 - 3.9 [facility] Transglutaminase Interpretation: ??Negative U/mL [place] [facility] Antibody IgA [facility] Tissue 2.0 0 - 5.9 [facility] Transglutaminase Ramone U/mL [place] [facility] IgG [facility] Comment: Interpretation: Negative Specimen Anatomical Collection Method Collection Time Receive d Time (Source) Location / / Volume Laterality Blood specimen 02/21/2015 3:20 PM 015 3:25 (specimen) CDT PM CDT Lyric Carrasco APRN [facility] CARE AND HOME HEALTH AIDES TEACHER LAB - BLOOD ORDERABLES Performing Organization Address City/State/ZIP Code Phon e Number [facility] [address] [place] [address] [facility] (ABNORMAL) Ferritin (02/21/2015 3:20 PM CDT) athologist Signature Ferritin 3 (L) 12 - 150 [facility] ng/mL [facility] Specimen Anatomical Collection Method Collection Time Receive d Time (Source) Location / / Volume Laterality Blood specimen 02/21/2015 3:20 PM 015 3:25 (specimen) CDT PM CDT Lyric Carrasco APRN HOME CARE AND HOME HEALTH AIDES TEACHER LAB - BLOOD ORDERABLES Performing Organization Address City/State/ZIP Code Phon e Number [facility] [address] [place] [address] (ABNORMAL) CBC with platelets and differential (02/21/2015 3:20 PM CDT) athologist Signature WBC 7.5 4.0 - 11.0 [place] 10e9/L [facility] RBC Count 4.02 3.8 - 5.2 [place] 10e12/L [facility] Hemoglobin 10.7 (L) 11.7 - 15.7 [place] g/dL [facility] Comment: Results confirmed by repeat sean t Hematocrit 32.9 (L) 35.0 - 47.0 % [facility] MCV 82 78 - 100 fl [facility] MCH 26.6 26.5 - 33.0 pg [facility] MCHC 32.5 31.5 - 36.5 g/dL [place] [facility] [place] RDW 14.1 10.0 - 15.0 % [facility] Platelet Count 299 150 - 450 10e9/L [facility] Diff Method Automated Method [place] [facility] [place] % Neutrophils 64.9 % [facility] % Lymphocytes 26.4 % [facility] % Monocytes 7.0 % [facility] % Eosinophils 1.2 % [facility] % Basophils 0.5 % [facility] Absolute Neutrophil 4.9 1.6 - 8.3 10e9/L [place] [place] [facility] Absolute Lymphocytes 2.0 0.8 - 5.3 10e9/L [facility] Absolute Monocytes 0.5 0.0 - 1.3 10e9/L [facility] Absolute Eosinophils 0.1 0.0 - 0.7 10e9/L [facility] Absolute Basophils 0.0 0.0 - 0.2 10e9/L [facility] Specimen Anatomical Collection Method Collection Time Receive d Time (Source) Location / / Volume Laterality Blood specimen 02/21/2015 3:20 PM 015 3:25 (specimen) CDT PM CDT Lyric Carrasco APRN HOME CARE AND HOME HEALTH AIDES TEACHER LAB - BLOOD ORDERABLES Performing Organization Address City/State/ZIP Code Phon e Number [facility] [id number] [place] [address] documented in this encounter Visit Diagnoses Diagnosis Fatigue - Primary Other malaise and fatigue Flatulence, eructation, and gas pain Acute sinusitis with symptoms > 10 days Acute sinusitis, unspecified documented in this encounter
--- OUTSIDE RECORDS SUMMARY | 2022-02-09 01:01 | XMS_ITS | Encounter Summary ---
:1975 Author Organization [place] Address [address] [facility] [place] [address] Care Team Providers Name Role Phone Unavailable Primary Care Provider Unavailable Encounter Details Date Type Department Care Team Description 09/13/2014 Radiant Appointment [facility] David Roman joint pain, [facility] [place] Hunter left [address] [place], [place] [id number] [place] [address] Social History Tobacco Use Types Packs/Day Years [...] Priority Date/Time Associated Diagnosis Comme nts XR HAND LEFT G/E 3 Routine 09/13/2014 6:35 PM Hand joint pain, Results for this VIEWS CDT left procedure are i n the results section. documented in this encounter Results XR Hand Left G/E [...] Visit Diagnoses Diagnosis Hand joint pain, left documented in this encounter
--- OUTSIDE RECORDS SUMMARY | 2022-02-09 01:01 | XMS_ITS | Encounter Summary ---
:1975 Author Organization [place] Address [address] [place] [address] Care Team Providers Name Role Phone Unavailable Primary Care Provider Unavailable Reason for Visit Reason Onset Date Comments Panel Management 06/21/2015 Encounter Details Date Type Department Care Team Description 06/21/2015 Telephone [facility] Lyric Carrasco, [facility] [address] [id number] [place] [address] [phone] (Wo rk) Social History Tobacco Use Types [...] Notes Telephone Encounter - Bree George - 07/13/2015 12:02 PM CST Gave patient the message and she will call back to scheduled the appointment. Bree George Nanny Caregiver ES ATTENDANT Telephone Encounter - Bree George - 07/13/2015 11:18 AM CST LVM message asking patient to call the clinic, please inform her that she is due for a physical and pap. Bree George Nanny Caregiver ES ATTENDANT Telephone Encounter - Skylar Ku CMA - 06/21/2015 8:13 AM CST Panel Management Review Patient has the following on her problem list: None Composite cancer screening Chart review shows that this patient is due/due soon for the following Pap Smear Summary: Patient is due/failing the following: PAP Action needed: Patient needs office visit for px. Type of outreach: Phone, left message for patient to call back. Questions for provider review: None Skylar Ku CMA Chart routed to none . ES ATTENDANT documented in this encounter Plan of Treatment Not on filedocumented as of this encounter Visit Diagnoses Not on filedocumented in this encounter
--- OUTSIDE RECORDS SUMMARY | 2022-02-09 01:01 | XMS_ITS | Encounter Summary ---
:1975 Author Organization [place] Address [address] [place] [address] Support Name Relationship Address Phone Leanne Wu Unavailable Unavailable [phone] [place] [address] Team Providers Name Role Phone [facility] Primary Care Provider Susie Naidu RESORT HOST Primary Care Provider [facility] Primary Care Provider No Ref-Primary, Physician Primary Care Provider Isis Grace-C Unavailable Raghu Freed-C Unavailable [phone] Raghu Freed-C Unavailable [phone] Isis Grace-C Unavailable [facility] Primary Care Provider Irina Ricci RESORT HOST Unavailable Raghu Meadows CNP Unavailable Irina Ricci NP Unavailable Raghu Meadows PHYSICS DEPARTMENT CHAIR Unavailable Irina Ricci NP Unavailable Raghu Meadows PHYSICS DEPARTMENT CHAIR Unavailable Lily Rincon PA-C Unavailable Asha Urbina-C Unavailable Ingrid Gillespie PHYSICS DEPARTMENT CHAIR Unavailable Rafaela Higuera PA-C Unavailable Ingrid Gillespie PHYSICS DEPARTMENT CHAIR Unavailable Luis E Mtz MD Unavailable Meg Vigil PA-C Unavailable Reason for Visit Reason Onset Date Comments Outreach 10/08/2014 [facility] ATT 1 Encounter Details Date Type Department Care Team Description 10/08/2014 Telephone [facility] Ladarius Mccain , Donny (PHS ATT 1) Mara LUNA [facility], [address] [place] [address] Social History Tobacco Use Types Packs/Day Years [...] this encounter Miscellaneous Notes Telephone Encounter - Lyric Molina - 10/08/2014 10:35 AM CDT 10/08/2014 Call Regarding Preventive Health Screening Cervical/PAP Attempt 1 Message on voicemail Comments: patient may disregard call if it's too soon - patient is due in February for pap Outreach [employer] Lyric Molina documented in this encounter Plan of Treatment Not on filedocumented as of this encounter Visit Diagnoses Not on filedocumented in this encounter Additional Health Concerns Infection Onset Date Last Indicated Resolved Time Rule Out COVID-19 11/10/2019 11/10/2019 11/10/2019 9:5 3 PM CDT documented as of this encounter Care Teams Modeling Analyst Relationship Specialty Start Date End Date [facility] PCP - General 09/21/1503/17 [facility] [address] [place] [address] Susie Naidu, RESORT HOST PCP - General Nurse Practitioner - 03/18/16 12/09/17 Family [facility] PCP - General 12/10/17 [facility] [address] [place] [address] No Ref-Primary, PCP - General 03/13/18 09/15/18 Physician Sanjay, PCP - Assigned PCP 08/03/17 9 Isis Edwards PA-C [address] [place] [address] Rahgu Freed PCP - Assigned PCP 06/07/18 07/07/18 JEREMY [place]berry [address] [place] [address] [facility] PCP - General 09/16/18 [facility] [address] [place] [address] Raghu Freed Assigned PCP 06/07/18 09/19/18 JEREMY [address] [address] [place] [address] Sanjay, Assigned PCP 08/03/17 06/06/18 Isis Edwards PA-C [address] [place] [address] Irina Ricci, Assigned PCP 09/20/18 9 RESORT HOST [address] [place] [address] Raghu Meadows, LYUDMILA Assigned PCP 01/31/19 02/06/[address] [place] [address] Irina Ricci, Assigned PCP 02/07/19 9 RESORT HOST [address] [place] [address] Raghu Meadows, PHYSICS DEPARTMENT CHAIR Assigned PCP 03/07/19 03/13/[address] [place] [address] Irina Ricci, Assigned PCP 03/14/19 0 RESORT HOST [address] [place] [address] Raghu Meadows, PHYSICS DEPARTMENT CHAIR Assigned PCP 09/19/19 12/18/[address] [place] [address] Lily Rincon, Assigned PCP 12/19/19 08/12/20 JEREMY [address] [facility] [address] [place] [id number] Asha Urbina Assigned PCP 08/13/20 09/27/20 JEREMY Dumont [address] [place], [place] [id number] Ingrid Gillespie, Assigned PCP 09/28/20 12/30/20 PHYSICS DEPARTMENT CHAIR [address] [place] [id number] Dusty Patel, Assigned PCP 12/31/20 01/06/21 Rafaela Ugarte PA-C [address] [place], [place] [address] Ingrid Gillespie, Assigned PCP 01/28/21 PHYSICS DEPARTMENT CHAIR [address] [place] [address] Luis E Mtz MD Assigned Surgical 01/14/[address] Provider [address] [place], [place] [id number] Meg Vigil Assigned PCP 01/07/21 01/27/21 JEREMY Christopher [address] [place], [place] [id number] documented as of this encounter
--- OUTSIDE RECORDS SUMMARY | 2022-02-09 01:01 | XMS_ITS | Encounter Summary ---
:1975 Author Organization [place] Address [address] [facility] [place] [address] Care Team Providers Name Role Phone Unavailable Primary Care Provider Unavailable Reason for Visit Reason Comments Abdominal Pain Encounter Details Date Type Department Care Team Description 09/14/2015 Office Visit [facility] Bhumi Wild Viral pharyngitis (Primary Dx); Clinic Moshe Sahni MD Stomach pain; [address] [facility] [address] [facility] Other iron deficiency anemia; [place], [place] [address] Throat pain [address] [phone] Social History Tobacco Use Types Packs/Day Years [...] Sign Reading Time Taken Comments Blood Pressure 115/73 09/14/2015 3:28 PM CDT Pulse 75 09/14/2015 3:28 PM CDT Temperature 37.1 ??C (98.7 ??F) 09/14/2015 3:28 PM CDT Respiratory Rate - - Oxygen Saturation - - Inhaled Oxygen Concentration - - Weight 73.5 kg (162 lb) 09/14/2015 3:28 PM CDT Height 167.6 cm (5' 6) 09/14/2015 3:28 PM CDT Body Mass Index 26.15 09/14/2015 3:28 PM CDT documented in this encounter Patient Instructions Patient InstructionsBhumi Wild MD - 09/14/2015 3:49 PM CDT Ferrous gluconate documented in this encounter Progress Notes Bhumi Wild MD - 09/14/2015 3:21 PM CDT SUBJECTIVE: Alyssa Aguillon is a 40 year old female who presents to clinic today for the following health issues: Abdominal Pain ?? Duration: started last night ?? Description (location/character/radiation): center of abdomen, ear ringing. Bit of sore throat and [place] Associated flank pain: None ?? Intensity: mild, moderate ?? Accompanying signs and symptoms: Fever/Chills: YES Gas/Bloating: YES Nausea/vomitting: YES nausea Diarrhea: YES Dysuria or Hematuria: YES frequency has increased recently ?? History (previous similar pain/trauma/previous testing): no ?? Precipitating or alleviating factors: Pain worse with eating/BM/urination: no Pain relieved by BM: YES somewhat for a bit ?? Therapies tried and outcome: IBP and rolaids ?? LMP: 3- 4 weeks ago Reports that her current abdominal symptoms are less severe than they typically are. She plans to follow up with gastroenterology for this. What is more bothersome for her is a sore throat that began yesterday associated with some headachesand possibly nausea. She has not felt febrile but does note significant fatigue. Problem list and histories reviewed & adjusted, [...] ??? Nausea ??? Other iron deficiency anemia Past Surgical History Procedure Laterality Date ??? [...] Cancer - colorectal No family hx of No current outpatient prescriptions on file. ROS: Constitutional, HEENT, cardiovascular, pulmonary, gi and gu systems are negative, except as otherwise noted. OBJECTIVE: BP 115/73 mmHg Pulse 75 Temp(Src) 98.7 ??F (37.1 ??C) (Oral) Ht 5' 6 (1.676 m) Wt 162 lb (73.483 kg) BMI 26.16 kg/m2 ? No Body mass index is 26.16 kg/(m^2). GENERAL: [...] rub, no peripheral edemaand peripheral pulses strong Diagnostic Test Results: Results for orders placed or performed in visit on 09/14/15 UA reflex to Microscopic and Culture Result Value Ref Range Color Urine Yellow Appearance Urine Clear Glucose Urine Negative NEG mg/dL Bilirubin Urine Negative NEG Ketones Urine Negative NEG mg/dL Specific [place] Urine 1.015 1.003 - 1.035 Blood Urine Trace (A) NEG pH Urine 6.5 5.0 - 7.0 pH Protein Albumin Urine Negative NEG mg/dL Urobilinogen Urine 0.2 0.2 - 1.0 EU/dL Nitrite Urine Negative NEG Leukocyte Esterase Urine Negative NEG Source Midstream Urine Urine Microscopic Result Value Ref Range WBC Urine O - 2 0 - 2 /HPF RBC Urine O - 2 0 - 2 /HPF Squamous Epithelial /LPF Urine Few FEW /LPF CBC with platelets and differential Result Value Ref Range WBC 7.5 4.0 - 11.0 10e9/L RBC Count 3.95 3.8 - 5.2 10e12/L Hemoglobin 9.9 (L) 11.7 - 15.7 g/dL Hematocrit 31.2 (L) 35.0 - 47.0 % MCV 79 78 - 100 fl MCH 25.1 (L) 26.5 - 33.0 pg MCHC 31.7 31.5 - 36.5 g/dL RDW 14.9 10.0 - 15.0 % Platelet Count 273 150 - 450 10e9/L Diff Method Automated Method % Neutrophils 61.0 % % Lymphocytes 29.4 % % Monocytes 8.4 % % Eosinophils 0.8 % % Basophils 0.4 % Absolute Neutrophil 4.6 1.6 - 8.3 10e9/L Absolute Lymphocytes 2.2 0.8 - 5.3 10e9/L Absolute Monocytes 0.6 0.0 - 1.3 10e9/L Absolute Eosinophils 0.1 0.0 - 0.7 10e9/L Absolute Basophils 0.0 0.0 - 0.2 10e9/L Mononucleosis screen Result Value Ref Range Mononucleosis Screen Negative NEG Strep, Rapid Screen Result Value Ref Range Specimen Description Throat Rapid Strep A Screen NEGATIVE: No Group A streptococcal antigen detected by immunoassay, await culture report. Micro Report Status FINAL 09/14/2015 ASSESSMENT/PLAN: 1. Viral pharyngitis: Discussed symptomatic treatment and monitoring for worsening symptoms. 2. Stomach pain: Discussed IBS as a possible etiology. Appears that she has had several abdominal CTscans in the past not identifying an etiology. She is also had several visits to clinic. She has hada consultation with gastroenterology. I encouraged follow-up with them to further address her abdominal pain. - UA reflex to Microscopic and Culture - Urine Microscopic 3. Other iron deficiency anemia: Sounds like her anemia is due to poor dietary iron intake. We'll need to investigate this more in the near future. She stopped her iron supplement due to trouble with GI upset. Suggested she try ferrous gluconate as a non-constipating option. Advised take with citrus to ensure maximal absorption. - CBC with platelets and differential 4. Throat pain - Strep, Rapid Screen - Mononucleosis screen - Beta strep group A culture Follow-up as needed Bhumi Wild MD [facility] documented in this encounter Nursing Notes Marcin Cornejo CMA - 09/14/2015 3:29 PM CDT Chief Complaint Patient presents with ??? Abdominal Pain Initial BP 115/73 mmHg Pulse 75 Temp(Src) 98.7 ??F (37.1 ??C) (Oral) Ht 5' 6 (1.676 m) Wt 162 lb (73.483 kg) BMI 26.16 kg/m2 ? No Estimated body mass index is 26.16 kg/(m^2) as calculated from the following: Height as of this encounter: 5' 6 (1.676 m). Weight as of this encounter: 162 lb (73.483 kg). BP completed using cuff size: large Health maintenance- pap due pt informed Marcin Cornejo CMA documented in this encounter Plan of Treatment Not on filedocumented as of this encounter Procedures Procedure Name Priority Date/Time Associated Comments Diagnosis RAPID STREP SCREEN Routine 09/14/2015 3:56 PM Throat pain Res ults for this THROAT SWAB CDT procedure are i n the results section. BETA HEMOLYTIC STREP Routine 09/14/2015 3:56 PM Throat pain R esults for this GROUP A CULTURE CDT procedure ar e in the results section. CBC WITH PLATELETS & Routine 09/14/2015 3:54 PM Other iron R esults for this DIFFERENTIAL CDT deficiency anemia procedure are in the results section. MONONUCLEOSIS SCREEN Routine 09/14/2015 3:54 PM Throat pain R esults for this CDT procedure are i n the results section. URINE MICROSCOPIC Routine 09/14/2015 3:20 PM Stomach pain Resu lts for this CDT procedure are i n the results section. UA MACROSCOPIC WITH Routine 09/14/2015 3:20 PM Stomach pain Re sults for this REFLEX TO MICROSCOPIC CDT proced ure are in AND CULTURE the results section. documented in this encounter Results Beta strep group A culture (09/14/2015 3:56 PM CDT) Component Value Ref Test Analysis Performed At [facility] gist Range Method Time Signature Specimen Throat [facility] [place] Culture Micro No Beta [place] Streptococcus [facility] isolated [place] Micro Report FINAL 09/16/2015 [facility] Specimen Anatomical Collection Method Collection Time Receive d Time (Source) Location / / Volume Laterality Specimen from 09/14/2015 3:56 PM 09/14/19 16 4:11 throat CDT PM CDT (specimen) Bhumi Wild MD LAB - MICRO GENERAL ORDERABL ES Performing Organization Address City/[facility]/ZIP Code Phon e Number [facility] [id number] [facility] [place] [address] Strep, Rapid Screen (09/14/2015 3:56 PM CDT) Component Value Ref Test Analysis Performed At [facility] Range Method Time Signature Specimen Throat [place] Description [facility] Rapid Strep A NEGATIVE: No Group A strepto coccal antigen detected by immunoassay, await [place] Screen culture report. [facility] Micro Report FINAL 09/14/2015 [facility] Specimen Anatomical Collection Method Collection Time Receive d Time (Source) Location / / Volume Laterality Specimen from 09/14/2015 3:56 PM 09/14/19 16 4:00 throat CDT PM CDT (specimen) Bhumi Wild MD LAB - MICRO GENERAL ORDERABL ES Performing Organization Address City/[facility]/ZIP Code Phon e Number [facility] [id number] [facility] [place] [address] Mononucleosis screen (09/14/2015 3:54 PM CDT) [facility] gist Method Time Signature Mononucleosis Negative NEG [facility] Specimen Anatomical Collection Method Collection Time Receive d Time (Source) Location / / Volume Laterality Blood specimen 09/14/2015 3:54 PM 016 3:57 (specimen) CDT PM CDT Bhumi Wild MD LAB - BLOOD ORDERABLES Performing Organization Address City/[facility]/ZIP Code Phon e Number [facility] [id number] [address] [facility] [place] [address] (ABNORMAL) CBC with platelets and differential (09/14/2015 3:54 PM CDT) P athologist Signature WBC 7.5 4.0 - 11.0 [place] 10e9/L [facility] RBC Count 3.95 3.8 - 5.2 [place] 10e12/L [facility] Hemoglobin 9.9 (L) 11.7 - 15.7 [place] g/dL [facility] Comment: Results confirmed by repeat test Reviewed: OK with previous Hematocrit 31.2 (L) 35.0 - 47.0 % [facility] MCV 79 78 - 100 fl [facility] MCH 25.1 (L) 26.5 - 33.0 pg [facility] MCHC 31.7 31.5 - 36.5 g/dL [place] [facility] [place] RDW 14.9 10.0 - 15.0 % [facility] Platelet Count 273 150 - 450 10e9/L [facility] Diff Method Automated Method [place] [facility] [place] % Neutrophils 61.0 % [facility] % Lymphocytes 29.4 % [facility] % Monocytes 8.4 % [facility] % Eosinophils 0.8 % [facility] % Basophils 0.4 % [facility] Absolute Neutrophil 4.6 1.6 - 8.3 10e9/L [place] [facility] Absolute Lymphocytes 2.2 0.8 - 5.3 10e9/L [facility] Absolute Monocytes 0.6 0.0 - 1.3 10e9/L [facility] Absolute Eosinophils 0.1 0.0 - 0.7 10e9/L [facility] Absolute Basophils 0.0 0.0 - 0.2 10e9/L [facility] Specimen Anatomical Collection Method Collection Time Receive d Time (Source) Location / / Volume Laterality Blood specimen 09/14/2015 3:54 PM 016 3:57 (specimen) CDT PM CDT Bhumi Wild MD LAB - BLOOD ORDERABLES Performing Organization Address City/State/ZIP Code Phon e Number [facility] [id number] [place] [address] Urine Microscopic (09/14/2015 3:20 PM CDT) P athologist Signature WBC Urine O - 2 0 - 2 /HPF [facility] RBC Urine O - 2 0 - 2 /HPF [facility] Squamous Few FEW /LPF [place] Epithelial /LPF CLINICS Urine [place] Specimen Anatomical Collection Method Collection Time Receive d Time (Source) Location / / Volume Laterality 09/14/2015 3:20 PM 201 6 3:31 CDT PM CDT Bhumi Wild MD LAB - URINE ORDERABLES Performing Organization Address City/[facility]/ZIP Code Phon e Number [facility] [id number] [place] [address] (ABNORMAL) UA reflex to Microscopic and Culture (09/14/2015 3:20 PM CDT) [facility] Method Time Signature Color Urine Yellow [facility] Appearance Urine Clear [facility] Glucose Urine Negative NEG mg/dL [facility] Bilirubin Urine Negative NEG [facility] Ketones Urine Negative NEG mg/dL [facility] Specific [place] 1.015 1.003 - [place] Urine 1.035 [facility] Blood Urine Trace (A) NEG [facility] pH Urine 6.5 5.0 - 7.0 [place] pH [facility] Protein Albumin Negative NEG mg/dL [place] Urine [facility] Urobilinogen 0.2 0.2 - 1.0 [place] Urine EU/dL [facility] Nitrite Urine Negative NEG [facility] Leukocyte Negative NEG [place] Esterase Urine [facility] Source Midstream [place] Urine [facility] Specimen Anatomical Collection Method Collection Time Receive d Time (Source) Location / / Volume Laterality Urine specimen 09/14/2015 3:20 PM 016 3:31 (specimen) CDT PM CDT Bhumi Wild MD LAB - URINE ORDERABLES Performing Organization Address City/State/ZIP Code Phon e Number [facility] [id number] [place] [address] documented in this encounter Visit Diagnoses Diagnosis Viral pharyngitis - Primary Acute pharyngitis Stomach pain Dyspepsia and other specified disorders of function of stomach Other iron deficiency anemia Throat pain documented in this encounter
--- OUTSIDE RECORDS SUMMARY | 2022-02-09 01:01 | XMS_ITS | Encounter Summary ---
:1975 Author Organization [place] Address [address] [facility] [place] [address] Support Name Relationship Address Phone Leanne Wu Unavailable Unavailable [phone] [place] [address] Team Providers Name Role Phone Unavailable Primary Care Provider Unavailable Reason for Visit Reason Comments Tachycardia started around 3:30pm drank a redbull. Dizziness Nausea Encounter Details Date Type Department Care Team Description 05/05/2015 Emergency [place] Emergency Departm ent Bree Oreilly MD Tachycardia [address] [place] [address] [place] [address] [phone] (Wo rk) Social History Tobacco Use Types [...] Sign Reading Time Taken Comments Blood Pressure 150/75 05/05/2015 7:56 PM [facility] Pulse 106 05/05/2015 7:56 PM [facility] Temperature 37.2 ??C (98.9 ??F) 05/05/2015 7:56 PM [facility] Respiratory Rate 18 05/05/2015 7:56 PM [facility] Oxygen Saturation 99% 05/05/2015 7:56 PM [facility] Inhaled Oxygen Concentration - - Weight - - Height - - Body Mass Index - - documented in this encounter Discharge Instructions AttachmentsThe following attachments cannot be sent through Care Everywhere. SYNCOPE, CAUSES OF (UKRAINIAN)documented in this encounter Medications at Time of Discharge Medication Sig Dispensed Refills Start Date End Date ferrous gluconate Take 1 tablet (324 60 tablet 2 02/28/2015 05/29/2015 (FERGON) 324 (38 FE) MG mg) by mouth 2 times tabletIndications: Iron daily deficiency documented as of this encounter ED Notes Calli Keller RN - 05/05/2015 7:04 PM CST Face to face report given to Analy Beltrán RN. [facility] Calli Keller RN - 05/05/2015 6:00 PM CST Portable xray complete. Sig other at bedside. [facility] Calli Keller RN - 05/05/2015 5:50 PM CST MD at bedside. Exam done. [facility] Jovana Valerio RN - 05/05/2015 5:23 PM CST Patient presents to emergency room with complaints of syncopal episode blacked out and woke up on bathroom floor, heart racing, dizziness, and shortness of breath. Pt states symptoms started around3:30pm pt states she drank a big can of redbull and then her and her sister went out to eat and symptoms started. Pt awake Ox3 dizzy nauseated. HR tachy. C/o headache over middle of forehead 01/12. [facility] Calli Keller RN - 05/05/2015 5:20 PM CST MD at bedside. Spoke with pt. [facility] Bree Oreilly MD - 05/05/2015 5:19 PM CST eMERGENCY dEPARTMENT eNCOUnter CHIEF COMPLAINT Chief Complaint Patient presents with ??? Tachycardia started around 3:30pm drank a redbull. ??? Dizziness ??? Nausea HPI Alyssa Aguillon is a 39 year old female who presents with not feeling right after drinking a redbull about an hour ago. She states she drank it after buying it at a dollar store, she was out with her sister. She started to feel like she couldn't breathe, she had her sister washing machine loader and puller, then then went to a gas station, then went to eat at a restaurant with her sister, she started to not feel right, had some trouble breathing, went into the bathroom, felt nausaeted and hot and cold, then had diarrhea. She remembers hearing her sister knock on the door and she woke up on the floor. She comes in by private vehicle with her boyfriend Julio César. She has had panic attacks in the past when going through her divorce, also when she was taking metabolife, but that has been many years. She still feels a little nauseated. . REVIEW OF SYSTEMS Cardiac: no Chest Pain, No syncope Respiratory: No cough or hemoptysis GI: No Vomiting or Diarrhea : No Dysuria or Hematuria General: No Fever or Chills All other systems reviewed and are negative. PAST MEDICAL & SURGICAL HISTORY Past Medical History Diagnosis Date ??? Streptococcal sore throat required hospitalization 1 yr ago ??? Abnormal Pap smear 8 yrs ago, 09/2010 ASCUS-H ??? Menorrhagia, premenopausal 2010 ??? Anemia Past Surgical History Procedure Laterality Date ??? Colposcopy cervix, loop electrode biopsy, combined years ago, 8 years ago LEEP CURRENT MEDICATIONS Current Outpatient Rx Name Route Sig Dispense Refill ??? ferrous gluconate (FERGON) 324 (38 FE) MG tablet Oral Take 1 tablet (324 mg) by mouth 2 times daily 60 tablet 2 ALLERGIES Allergies Allergen Reactions ??? Compazine [Prochlorperazine] SOCIAL & FAMILY HISTORY History Social History ??? Marital Status: Single Spouse Name: N/A Number of Children: N/A ??? Years of Education: N/A Social History Main Topics ??? Smoking status: Never Smoker ??? Smokeless tobacco: Never Used ??? Alcohol Use: Yes Comment: rare ??? Drug Use: No ??? Sexual Activity: Partners: Male Comment: using nothing for contraception Other Topics Concern ??? Parent/Sibling W/ Cabg, Mi Or Angioplasty Before 65f 55m? No Social History Narrative Family History Problem Relation Age of Onset ??? Family History Negative Mother ??? Family History Negative Father ??? Family History Negative Sister 2 ??? Breast Cancer No family hx of ??? Cancer - colorectal No family hx of PHYSICAL EXAM VITAL SIGNS: BP 135/65 mmHg Temp(Src) 98.4 ??F (36.9 ??C) (Oral) Resp 23 SpO2 98% Constitutional: Well developed, well nourished, no acute distress, she is talking very rapidly in complete sentences, normal mental status HENT: Atraumatic, moist mucus membranes Neck: supple, no JVD Respiratory: Lungs Clear, no retractions Cardiovascular: Slightly tachy rate, no murmurs Vascular: Radial pulses 2+ equal bilaterally GI: Soft, nontender, normal bowel sounds Musculoskeletal: No edema, no acute deformities Integument: Skin warm and dry, no petechiae Neurologic: Alert & oriented, no slurred speech Psych: Pleasant affect, no hallucinations EKG Interpreted by emergency department physician: Sinus tach at 107, otherwise normal. RADIOLOGY/PROCEDURES CXR: No acute infiltrate ED COURSE & MEDICAL DECISION MAKING Pertinent Labs & Imaging studies reviewed and interpreted. (See chart for details) See chart for details of medications given during the ED stay. FINAL IMPRESSION 1. Tachycardia Plan: All of her labs and EKG are normal. I believe this was a combination of Red Bull, anxiety and probable onset of gastroenteritis with the nausea and diarrhea. There is a viral infection in the community. Discharged to home. While preparing for discharge, her friend, Julio César, started asking about his cough, he said he's had for a week. [place], has been seen for it, has Hep C and just startedmedication for it. I suggested he be seen the ED but he declines. Bree Oreilly MD 05/06/151920 [facility] documented in this encounter Plan of Treatment Pending Results Name Type Priority Associated Diagnoses Date/Ti me EKG CARDIAC - HIM SCAN EKG 05/05 5:32 PM [facility] documented as of this encounter Procedures Procedure Name Priority Date/Time Associated Comments Diagnosis HCG QUALITATIVE URINE STAT 05/05/2015 6:30 PM Results for this [facility] procedure are i n the results section. ROUTINE UA WITH STAT 05/05/2015 6:30 PM Result s for this MICROSCOPIC [facility] procedure are i n the results section. XR CHEST PORT 1 VIEW STAT 05/05/2015 5:59 PM R esults for this [facility] procedure are i n the results section. EKG CARDIAC - HIM SCAN 05/05/2015 5:32 PM [facility] EKG CARDIAC - HIM SCAN 05/05/2015 5:32 PM [facility] D-DIMER GH STAT 05/05/2015 5:30 PM Results f or this [facility] procedure are i n the results section. CBC WITH PLATELETS & STAT 05/05/2015 5:30 PM R esults for this DIFFERENTIAL [facility] procedure are i n the results section. TSH STAT 05/05/2015 5:30 PM Results f or this [facility] procedure are i n the results section. TROPONIN I STAT 05/05/2015 5:30 PM Results f or this [facility] procedure are i n the results section. COMPREHENSIVE STAT 05/05/2015 5:30 PM Results for this METABOLIC PANEL [facility] procedure ar e in the results section. documented in this encounter Results (ABNORMAL) UA with Microscopic (05/05/2015 6:30 PM [facility]) [facility] Method Time Signature Color Urine Light Yellow [facility] Appearance Urine Clear [facility] Glucose Urine Negative NEG mg/dL [facility] Bilirubin Urine Negative NEG [facility] Ketones Urine Negative NEG mg/dL [facility] Specific [place] 1.003 1.003 - [place] Urine 1.035 [facility] Blood Urine Negative NEG [facility] pH Urine 5.0 4.7 - 8.0 [place] pH [facility] Protein Albumin Negative NEG mg/dL [facility] Urobilinogen Normal 0.0 - 2.0 [place] mg/dL mg/dL [facility] Nitrite Urine Negative NEG [facility] Leukocyte Negative NEG [place] Esterase Urine [facility] Source Midstream [place] Urine [facility] WBC Urine 1 0 - 2 [facility] /HPF [facility] RBC Urine 1 0 - 2 [facility] /HPF [facility] Bacteria Urine Few (A) NEG /HPF [facility] Squamous 3 (H) 0 - 1 [place] Epithelial /HPF /HPF [facility] Specimen Anatomical Collection Method Collection Time Receive d Time (Source) Location / / Volume Laterality Urine specimen 05/05/2015 6:30 PM 016 6:34 (specimen) [facility] PM [facility] Bree Oreilly MD LAB - URINE ORDERABLES Performing Organization Address City/[facility]/ZIP Code Phon e Number M [facility] [address] [facility] [address] [place] [address] , [facility] [phone] HCG qualitative urine (05/05/2015 6:30 PM [facility]) athologist Signature HCG Qual Urine Negative NEG [facility] Specimen Anatomical Collection Method Collection Time Receive d Time (Source) Location / / Volume Laterality Urine specimen 05/05/2015 6:30 PM 016 6:34 (specimen) [facility] PM [facility] Bree Oreilly MD LAB - URINE ORDERABLES Performing Organization Address City/[facility]/ZIP [facility] Phon e Number M [facility] [address] 55 [address] [facility] [address] [phone] XR Chest Port 1 View (05/05/2015 5:59 PM [facility]) Anatomical Region Laterality Modality Chest Other Specimen (Source) Anatomical Collection Method Collection Time Re ceived Time Location / / Volume Laterality 05/05/2015 5:51 PM [facility] Narrative 05/06/2015 1:21 PM [facility] SINGLE VIEW CHEST HISTORY: ??A 39-year-old female with tac hycardia. FINDINGS: ??A single view portable chest was obtained. ??Heart size and pulmonary vascularity are within normal limits. ??Lungs are clear. IMPRESSION: ??CLEAR CHEST. Exam Date: May 05, 2015 05:59:00 PM Author: ZAID LIM This report is final and signed Procedure Note Zaid Lim MD - 05/06/2015 SINGLE VIEW CHEST HISTORY: A 39-year-old female with tachy cardia. FINDINGS: A single view portable chest w as obtained. Heart size and pulmonary vascularity are within normal limits. Lungs are clear. IMPRESSION: CLEAR CHEST. Exam Date: May 05, 2015 05:59:00 PM Author: ZAID LIM This report is final and signed Bree Oreilly MD IMG DIAGNOSTIC IMAGING ORDER ALICIA EKG CARDIAC - HIM SCAN (05/05/2015 5:32 PM [facility]) Specimen (Source) Anatomical Collection Method Collection Time Re ceived Time Location / / Volume Laterality 05/05/2015 5:32 PM [facility] Narrative This result has an attachment that is no t available. Provider Scan ECG ORDERABLES D-Dimer (FV Range) (05/05/2015 5:30 PM [facility]) athologist Signature D-Dimer ng/mL 231 0 - 300 [place] RANGE ng/ml [facility] Specimen Anatomical Collection Method Collection Time Receive d Time (Source) Location / / Volume Laterality Blood specimen 05/05/2015 5:30 PM 016 5:36 (specimen) [facility] PM [facility] Bree Oreilly MD LAB - BLOOD ORDERABLES Performing Organization Address City/[facility]/ZIP Code Phon e Number M [place] [id number] [place] [address] Troponin I (05/05/2015 5:30 PM [facility]) [facility] gist Method Time Signature Troponin I ES <0.015 0.000 [facility] The 99th percentile for uppe r reference range is 0.045 ug/L. ??Troponin values in 0.045 [facility] the range of 0.045 - 0.120 ug/L may be associated wit h risks of adverse ug/L [facility] clinical events. Specimen Anatomical Collection Method Collection Time Receive d Time (Source) Location / / Volume Laterality Blood specimen 05/05/2015 5:30 PM 016 5:36 (specimen) [facility] PM [facility] Bree Oreilly MD LAB - BLOOD ORDERABLES Performing Organization Address City/State/ZIP Code Phon e Number M [facility] [address] 557 46 [facility] [address] [phone] TSH (05/05/2015 5:30 PM [facility]) P athologist Signature TSH 1.02 0.40 - 4.00 [place] RANGE mU/L [facility] Specimen Anatomical Collection Method Collection Time Receive d Time (Source) Location / / Volume Laterality Blood specimen 05/05/2015 5:30 PM 016 5:36 (specimen) [facility] PM [facility] Bree Oreilly MD LAB - BLOOD ORDERABLES Performing Organization Address City/State/ZIP Code Phon e Number [place] [facility] 750 [place] [address] [phone] (ABNORMAL) Comprehensive metabolic panel (05/05/2015 5:30 PM [facility]) Patholo gist Method Time Signature Sodium 140 133 - 144 [facility] mmol/L [facility] Potassium 3.5 3.4 - 5.3 [facility] mmol/L [facility] Chloride 105 94 - 109 [facility] mmol/L [facility] Carbon Dioxide 25 20 - 32 [facility] mmol/L [facility] Anion Gap 10 3 - 14 [facility] mmol/L [facility] Glucose 113 (H) 70 - 99 [facility] mg/dL [facility] Urea Nitrogen 9 7 - 30 [facility] mg/dL [facility] Creatinine 0.66 0.52 - [facility] 1.04 [facility] mg/dL [facility] GFR Estimate >90 >60 [place] Non GFR Calc mL/min/1. [facility] 7m2 [facility] GFR Estimate If >90 >60 [place] Black GFR Calc mL/min/1. RANG E [facility] 7m2 [place] Calcium 7.6 (L) 8.5 - [facility] 10.1 [facility] mg/dL [place] Bilirubin Total 0.5 0.2 - 1.3 [facility] mg/dL [facility] Albumin 3.4 3.4 - 5.0 [facility] g/dL [facility] Protein Total 7.2 6.8 - 8.8 [facility] g/dL [facility] Alkaline 60 40 - 150 [place] Phosphatase U/L [facility] ALT 22 0 - 50 [facility] U/L [facility] AST 23 0 - 45 [place] U/L [facility] Specimen Anatomical Collection Method Collection Time Receive d Time (Source) Location / / Volume Laterality Blood specimen 05/05/2015 5:30 PM 016 5:36 (specimen) [facility] PM [facility] Bree Oreilly MD LAB - BLOOD ORDERABLES Performing Organization Address City/State/ZIP Code Phon e Number M [address] [facility] [address] [address] , [facility] [phone] (ABNORMAL) CBC with platelets differential (05/05/2015 5:30 PM [facility]) [facility] Method Time Signature WBC 10.0 4.0 - [facility] 11.0 [place] 10e9[facility] RBC Count 3.68 (L) 3.8 - 5.2 [place] 10e12/L [facility] Hemoglobin 9.6 (L) 11.7 - [facility] 15.7 g/dL [facility] Hematocrit 28.8 (L) 35.0 - [facility] 47.0 % [facility] MCV 78 78 - 100 [facility] MCH 26.1 (L) 26.5 - [facility] 33.0 pg [facility] MCHC 33.3 31.5 - [place] 36.5 g/dL [facility] RDW 14.0 10.0 - [place] 15.0 % [facility] Platelet Count 291 150 - 450 [place] 10e9/L [facility] Diff Method Automated [facility] % Neutrophils 93.6 % [facility] % Lymphocytes 4.3 % [facility] % Monocytes 1.7 % [facility] % Eosinophils 0.2 % [facility] % Basophils 0.1 % [facility] % Immature 0.1 % [place] Granulocytes [facility] Absolute 9.4 (H) 1.6 - 8.3 [place] Neutrophil 10e9/L [facility] Absolute 0.4 (L) 0.8 - 5.3 [place] Lymphocytes 10e9/L [facility] Absolute 0.2 0.0 - 1.3 [place] Monocytes 10e9/L [facility] Absolute 0.0 0.0 - 0.7 [place] Eosinophils 10e9/L [facility] Absolute 0.0 0.0 - 0.2 [place] Basophils 10e9/L [facility] Abs Immature 0.0 0 - 0.4 [place] Granulocytes 10e9/L [facility] Specimen Anatomical Collection Method Collection Time Receive d Time (Source) Location / / Volume Laterality Blood specimen 05/05/2015 5:30 PM 016 5:36 (specimen) [facility] PM [facility] Bree Oreilly MD LAB - BLOOD ORDERABLES Performing Organization Address City/State/ZIP Code Phon e Number M [address] 55[facility] [phone] [facility] [id number] [place] [address] documented in this encounter Visit Diagnoses Diagnosis Tachycardia Tachycardia, unspecified documented in this encounter Administered Medications Inactive Administered Medications - up to 3 most recent administrations Medication Order MAR Action Action Date Dose Rate Site 0.9% sodium chloride BOLUS New Bag 05/05/2015 5:36 PM [facility] 1,000 mLs 1000 mL/hr Intravenous, 1,000 mL, ONCE, at 1,000 mL/hr, Administer over 1 Hours, On Fri05/05/15 at 1726, For 1 dose acetaminophen (TYLENOL) tablet 650 mg Given 05/05/2015 7:31 PM [facility] 650 mg 650 mg, Oral, ONCE, On Fri05/05/15 at 1930, For 1 dose, Maximum acetaminophen dose from all sources = 75 mg/kg/day not to exceed 4 grams/day. ketorolac (TORADOL) injection 15 mg Given 05/05/2015 5:58 PM [facility] 15 mg 15 mg, Intravenous, ONCE, On Fri05/05/15 at 1752, For 1 dose LORazepam (ATIVAN) injection 1 mg Given 05/05/2015 5:59 PM [facility] 1 mg 1 mg, Intravenous, ONCE, On Fri05/05/15 at 1752, For 1 dose documented in this encounter Active and Recently Administered Medications Times are shown in [facility]. Scheduled Medication Order 05/03/2015 05/04/2015 05/05/2015 0.9% sodium chloride BOLUS (COMPLETED) 1736 (New Bag - Provider: Calli Keller RN)1848 (Stopped - Provider: Jovana Valerio RN) Intravenous, 1,000 mL, ONCE, at 1,000 mL /hr, for 1 Hours, 05/05/15 at 1726, For 1 dose acetaminophen (TYLENOL) tablet 650 mg (COMPLETED) 1930 (Given - Provider: Bhumi Washington RN) 650 mg, Oral, ONCE, Fri05/05/15 at 1930, For 1 dose, Maximum acetaminophen dose from all sources = 75 mg/kg/day not to exceed 4 grams/day. ketorolac (TORADOL) injection 15 mg (COMPLETED) 1757 (Given - Provider: Calli Keller RN) 15 mg, Intravenous, ONCE, Fri05/05/15 at 1752, For 1 dose LORazepam (ATIVAN) injection 1 mg (COMPLETED) 1758 (Given - Provider: Calli Keller RN) 1 mg, Intravenous, ONCE, Fri05/05/15 at 1752, For 1 dose documented in this encounter
--- OUTSIDE RECORDS SUMMARY | 2022-02-09 01:01 | XMS_ITS | Encounter Summary ---
:1975 Author Organization [place] Address [address] [facility] [place] [address] Care Team Providers Name Role Phone Unavailable Primary Care Provider Unavailable Encounter Details Date Type Department Care Team Description 09/13/2014 Office Visit [facility] Ladarius Mccain [facility] [place] JEREMY Dugan ENCOUNTER--DISREGARD [place] [address] [facility] [address] (Primary Dx) [address], [address] [place] [address] [place], [place] [phone] (Wo rk) [address] [phone] Social History Tobacco Use Types Packs/Day Years [...] documented as of this encounter Progress Notes Ladarius Mccain PA-C - 09/13/2014 12:16 PM CDT This encounter was opened in error. Please disregard. documented in this encounter Plan of Treatment Not on filedocumented as of this encounter Visit Diagnoses Diagnosis ERRONEOUS ENCOUNTER--DISREGARD - Primary documented in this encounter
--- OUTSIDE RECORDS SUMMARY | 2022-02-09 01:01 | XMS_ITS | Encounter Summary ---
:1975 Author Organization [place] Address [address] [facility] [address] Care Team Providers Name Role Phone Unavailable Primary Care Provider Unavailable Encounter Details Date Type Department Care Team Description 02/28/2015 Orders Only [employer] Danilo Lyric Iron de ficiency [facility] KARAN Grey [employer]ER (Primary Dx) [address] [address] [phone] Social History Tobacco Use Types Packs/Day Years [...] this encounter Visit Diagnoses Diagnosis Iron deficiency - Primary Other disorders of iron metabolism documented in this encounter
--- OUTSIDE RECORDS SUMMARY | 2022-02-09 01:01 | XMS_ITS | Encounter Summary ---
:1975 Author Organization [place] Address [address] [facility] [place] [address] Care Team Providers Name Role Phone Unavailable Primary Care Provider Unavailable Reason for Visit Reason Comments Urgent Care Cough Encounter Details Date Type Department Care Team Description 06/26/2015 Office Visit [facility] Hunter Roman, Acute pharyngitis, Urgent Care Ida ray MD unspecified etiology [id number] [address] [facility] (Primary Dx) [place] [address] [phone] Social History Tobacco Use Types Packs/Day Years [...] Reading Time Taken Comments Blood Pressure 120/80 06/26/2015 6:28 PM ALLERGIST Pulse 76 06/26/2015 6:28 PM ALLERGIST Temperature 36.8 ??C (98.2 ??F) 06/26/2015 6:28 PM ALLERGIST Respiratory Rate - - Oxygen Saturation 98% 06/26/2015 6:28 PM ALLERGIST Inhaled Oxygen Concentration - - Weight 70.3 kg (155 lb) 06/26/2015 6:28 PM ALLERGIST Height - - Body Mass Index 25.02 06/06/2015 10:39 AM ALLERGIST documented in this encounter Progress Notes Hunter Roman MD - 06/26/2015 6:31 PM CST SUBJECTIVE: Alyssa Aguillon is a 39 year old female who presents to clinic today for the following health issues: Patient is here for a cough, ST and stomach pain. 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 In addition has had some frequency of urination. She denies that she has any pain with her urinary BP 120/80 mmHg Pulse 76 Temp(Src) 98.2 ??F (36.8 ??C) (Oral) Wt 155 lb (70.308 kg) SpO2 98% Questioned patient about current smoking habits. Pt. has never smoked. Problem list and histories reviewed & adjusted, as indicated. Additional history: Patient Active Problem List Diagnosis ??? CARDIOVASCULAR [...] except as otherwise noted. OBJECTIVE: BP 120/80 mmHg Pulse 76 Temp(Src) 98.2 ??F (36.8 ??C) (Oral) Wt 155 lb (70.308 kg) SpO2 98% LMP 06/19/2015 Body mass index is 25.03 kg/(m^2). GENERAL: alert and mild distress HENT: ear canals and TM's normal, nasal mucosa edematous , oral mucous membranes moist and uvula elongated NECK: bilateral anterior cervical adenopathy, no asymmetry, masses, or scars and [...] no gross musculoskeletal defects noted, no edema Diagnostic Test Results: Strep screen - Negative Urine; 0-2 RBCs 0-2 WBCs ASSESSMENT/PLAN: ICD-10-CM 1. Acute pharyngitis, unspecified etiology J02.9 Rapid strep screen ondansetron (ZOFRAN) 4 MG tablet omeprazole (PRILOSEC) 40 MG capsule *UA reflex to Microscopic and Culture ([facility] and [facility] (except [place] and [place]) ciprofloxacin (CIPRO) 250 MG tablet Beta strep group A culture Urine Microscopic DISCONTINUED: MAGIC MOUTHWASH, ENTER INGREDIENTS IN COMMENTS, 39-year-old female with symptoms of upper respiratory infection. In addition she has some abdominal discomfort more in the epigastrium. I suspect this is probably from postnasal drip into her stomach. She's had no nausea and vomiting she's had no diarrhea she's had no blood in her stool. Examination of her abdomen did not show any evidence of masses. Strep screen was negative She was complaining of some symptoms suggestive of UTI but only had 0-2 RBCs and 0-2 WBCs in her urine. Did give her 3 days of an antibiotic for Cipro for symptomatic treatment of her dysuria. In additionwe'll treat her symptomatically for the abdominal discomfort. Hunter Roman MD [facility] RGIST documented in this encounter Nursing Notes Nayely Merino CMA - 06/26/2015 6:28 PM CST Please see the progress note for documentation on this office visit RGIST documented in this encounter Plan of Treatment Not on filedocumented as of this encounter Procedures Procedure Name Priority Date/Time Associated Diagnosis Comme nts URINE MICROSCOPIC Routine 06/26/2015 7:04 PM Acute pharyngitis , Results for this ALLERGIST unspecified etiology procedu re are in the results section. UA MACROSCOPIC WITH Routine 06/26/2015 7:04 PM Acute pharyngit is, Results for this REFLEX TO ALLERGIST unspecified etiology procedu re are in MICROSCOPIC AND the results CULTURE section. RAPID STREP SCREEN Routine 06/26/2015 6:34 PM Acute pharyngiti s, Results for this THROAT SWAB ALLERGIST unspecified etiology procedu re are in the results section. BETA HEMOLYTIC STREP Routine 06/26/2015 6:34 PM Acute pharyngi tis, Results for this GROUP A CULTURE ALLERGIST unspecified etiology proc edure are in the results section. documented in this encounter Results (ABNORMAL) Urine Microscopic (06/26/2015 7:04 PM ALLERGIST) athologist Signature WBC Urine O - 2 0 - 2 /HPF [facility] RBC Urine O - 2 0 - 2 /HPF [facility] Squamous Few FEW /LPF [place] Epithelial /LPF [facility] Urine BROADUS Bacteria Urine Few (A) NEG /HPF [facility] Specimen Anatomical Collection Method Collection Time Receive d Time (Source) Location / / Volume Laterality 06/26/2015 7:04 PM 6 7:05 ALLERGIST PM ALLERGIST Hunter Roman MD LAB - URINE ORDERABLES Performing Organization Address City/State/ZIP Code Phon e Number [facility] [address] [place] [address] (ABNORMAL) *UA reflex to Microscopic and Culture ([facility] and [facility] (except [place] and [place]) (06/26/2015 7:04 PM ALLERGIST) Patholo gist Method Time Signature Color Urine Yellow [facility] Appearance Urine Clear [facility] Glucose Urine Negative NEG mg/dL [facility] Bilirubin Urine Negative NEG [facility] Ketones Urine Negative NEG mg/dL [facility] Specific [place] 1.010 1.003 - [place] Urine 1.035 [facility] Blood Urine Trace (A) NEG [facility] pH Urine 6.0 5.0 - 7.0 [place] pH [facility] Protein Albumin Negative NEG mg/dL [place] Urine [facility] Urobilinogen 0.2 0.2 - 1.0 [place] Urine EU/dL [facility] Nitrite Urine Negative NEG [facility] Leukocyte Negative NEG [place] Esterase Urine [facility] Source Midstream [place] Urine [facility] Specimen Anatomical Collection Method Collection Time Receive d Time (Source) Location / / Volume Laterality Urine specimen 06/26/2015 7:04 PM 016 7:05 (specimen) ALLERGIST PM ALLERGIST Hunter Roman MD LAB - URINE ORDERABLES Performing Organization Address City/[facility]/ZIP Code Phon e Number [facility] [address] [facility] [place] [address] Beta strep group A culture (06/26/2015 6:34 PM ALLERGIST) Component Value Ref Test Analysis Performed At [facility] gist Range Method Time Signature Specimen Throat [facility] Culture Micro No Beta [place] Streptococcus [facility] Micro Report FINAL 06/28/2015 [facility] Specimen Anatomical Collection Method Collection Time Receive d Time (Source) Location / / Volume Laterality Specimen from 06/26/2015 6:34 PM 06/26/19 16 6:35 throat ALLERGIST PM ALLERGIST (specimen) Hunter Roman MD LAB - MICRO GENERAL ORDERABL ES Performing Organization Address City/[facility]/ZIP Code Phon e Number [facility] [address] [facility] [place] [address] Rapid strep screen (06/26/2015 6:34 PM ALLERGIST) Component Value Ref Test Analysis Performed At [facility] gist Range Method Time Signature Specimen Throat [facility] Rapid Strep A NEGATIVE: No Group A strepto coccal antigen detected by immunoassay, await [place] Screen culture report. [facility] Micro Report FINAL 06/26/2015 [facility] Specimen Anatomical Collection Method Collection Time Receive d Time (Source) Location / / Volume Laterality Specimen from 06/26/2015 6:34 PM 06/26/19 16 6:35 throat ALLERGIST PM ALLERGIST (specimen) Hunter Roman MD LAB - MICRO GENERAL ORDERABL ES Performing Organization Address City/[facility]/ZIP Code Phon e Number [facility] [address] [facility] [place] [address] documented in this encounter Visit Diagnoses Diagnosis Acute pharyngitis, unspecified etiology - Primary documented in this encounter
--- OUTSIDE RECORDS SUMMARY | 2022-02-09 01:01 | XMS_ITS | Encounter Summary ---
:1975 Author Organization [place] Address [address] [place] [address] Care Team Providers Name Role Phone Unavailable Primary Care Provider Unavailable Encounter Details Date Type Department Care Team Description 12/16/2014 Office Visit [facility] Ladarius Mccain (Primary Dx) Clinic [place] JEREMY Dugan [address] [address] [address] [facility], [address] [place] [address] [place], [place] [phone] (Wo rk) [address] [phone] Social History Tobacco Use Types Packs/Day Years [...] encounter Progress Notes Ladarius Mccain PA-C - 12/16/2014 11:13 AM CDT Patient no-showed today's appointment. documented in this encounter Plan of Treatment Not on filedocumented as of this encounter Visit Diagnoses Diagnosis NO SHOW - Primary documented in this encounter
--- OUTSIDE RECORDS SUMMARY | 2022-02-09 01:01 | XMS_ITS | Encounter Summary ---
:1975 Author Organization [place] Address [address] [facility] [place] [address] Support Name Relationship Address Phone Leanne Wu Unavailable Unavailable [phone] [place] [address] Providers Name Role Phone Unavailable Primary Care Provider Unavailable Reason for Referral Consultation - Closed Specialty Diagnoses / Procedures Referred By Contact Refer red To Contact Diagnoses Dizziness Other fatigue Generalized muscle weakness Isis Grace [facility] [place] [address] [address] [address] [place] [address] Phone: [phone] Referral ID Status Reason Start Date Expiration Date Visits Requ ested Visits Authorized [id number] Closed 06/06/2015 06/05/2016 1 1 ETIC PROSPECTING OPERATOR Reason for Visit Reason Comments Fatigue Encounter Details Date Type Department Care Team Description 06/06/2015 [facility] [place] Isis Edwards PA-C Other iron deficiency anemia; [address] Dizziness; [place], [place] Generalized m uscle weakness [phone] [id number] Social History Tobacco Use Types Packs/Day Years [...] Reading Time Taken Comments Blood Pressure 118/80 06/06/2015 10:39 AM MAGNETIC PROSPECTING OPERATOR Pulse 75 06/06/2015 10:39 AM MAGNETIC PROSPECTING OPERATOR Temperature 36.1 ??C (97 ??F) 06/06/2015 10:39 AM MAGNETIC PROSPECTING OPERATOR Respiratory Rate - - Oxygen Saturation 98% 06/06/2015 10:39 AM MAGNETIC PROSPECTING OPERATOR Inhaled Oxygen Concentration - - Weight 72.9 kg (160 lb 12.8 oz) 06/06/2015 10:39 AM MAGNETIC PROSPECTING OPERATOR Height 167.6 cm (5' 6) 06/06/2015 10:39 AM MAGNETIC PROSPECTING OPERATOR Body Mass Index 25.95 06/06/2015 10:39 AM MAGNETIC PROSPECTING OPERATOR documented in this encounter Patient Instructions Patient InstructionsAaseIsis Salinas PA-C - 06/06/2015 11:23 AM MAGNETIC PROSPECTING OPERATOR (R53.83) Other fatigue (primary encounter diagnosis) Comment: Plan: CBC with platelets differential, Comprehensive metabolic panel, NEUROLOGY ADULT REFERRAL (D50.8) Other iron deficiency anemia Comment: Plan: CBC with platelets differential (R42) Dizziness Comment: Plan: Comprehensive metabolic panel, NEUROLOGY ADULT REFERRAL, CANCELED: NEUROLOGY ADULT REFERRAL (M62.81) Generalized muscle weakness Comment: Plan: NEUROLOGY ADULT REFERRAL ?? Etiology. Will get labs and follow-up with neurology. To ED if symptoms worsen ETIC PROSPECTING OPERATOR documented in this encounter Progress Notes Isis Grace PA-C - 06/06/2015 10:30 AM CST SUBJECTIVE: Alyssa Aguillon is a 39 year old female who presents to clinic today for the following health issues: Dizziness ?? Onset: 4 days ?? Description: Do you feel faint: no but Has headache Does it feel like the surroundings (bed, room) are moving: YES Unsteady/off balance: YES Have you passed out or fallen: no ?? Intensity: severe ?? Progression of Symptoms: intermittent ?? Accompanying Signs & Symptoms: Heart palpitations: no Nausea, vomiting: no Weakness in arms or legs: no Fatigue: YES Vision or speech changes: YES- blurry vision sometimes Ringing in ears (Tinnitus): no Hearing Loss: maybe ?? History: Head trauma/concussion hx: no Previous similar symptoms: YES - a few years Recent bleeding history: YES- 2 years ago had trouble for the bleeding To stop from surgery ?? Precipitating factors: Worse with activity or head movement: YES Any new medications (BP?): no Alcohol/drug abuse/withdrawal: no ?? Alleviating factors: Does staying in a fixed position give relief: Not really ?? Therapies Tried and outcome: Drank red bull (energy drink) went to agency er after the holidays - [place] heart was racing, spinning, couldn't breath, Anxiety attack Problem list and histories reviewed & adjusted, as indicated. Additional history: as documented Current Outpatient Prescriptions Medication Sig Dispense Refill ??? IBUPROFEN PO ??? meclizine (ANTIVERT) 25 MG tablet Take 1 tablet (25 mg) by mouth every 6 hours as needed for dizziness 30 tablet 1 ??? ondansetron (ZOFRAN) 4 MG tablet Take 1 tablet (4 mg) by mouth every 8 hours as needed for nausea 12 tablet 0 ??? omeprazole (PRILOSEC) 40 MG capsule Take 1 capsule (40 mg) by mouth daily Take 30-60 minutes before a meal. 15 capsule 1 ??? ciprofloxacin (CIPRO) 250 MG tablet Take 1 tablet (250 mg) by mouth 2 times daily 6 tablet 0 BP Readings from Last 3 Encounters: 06/26/15 120/80 06/06/15 118/80 05/05/15 150/75 Wt Readings from Last 3 Encounters: 06/26/15 155 lb (70.308 kg) 06/06/15 160 lb 12.8 oz (72.938 kg) 02/21/15 165 lb 9.6 oz (75.116 kg) ROS: Constitutional, HEENT, cardiovascular, pulmonary, gi and gu systems are negative, except as otherwise noted. OBJECTIVE: BP 118/80 mmHg Pulse 75 Temp(Src) 97 ??F (36.1 ??C) (Oral) Ht 5' 6 (1.676 m) Wt 160 lb 12.8oz (72.938 kg) BMI 25.97 kg/m2 SpO2 98% Body mass index is 25.97 kg/(m^2). GENERAL APPEARANCE: healthy, alert and no distress EYES: Eyes grossly normal to inspection, PERRL and conjunctivae and sclerae normal HENT: ear canals and TM's normal and nose and mouth without ulcers or lesions RESP: lungs clear to auscultation - no rales, rhonchi or wheezes CV: regular rates and rhythm, normal S1 S2, no S3 or S4 and no murmur, click or rub LYMPHATICS: normal ant/post cervical and supraclavicular nodes ABDOMEN: soft, nontender, without hepatosplenomegaly or masses and bowel sounds normal MS: extremities normal- no gross deformities noted SKIN: no suspicious lesions or rashes NEURO: Normal strength and tone, mentation intact, speech normal and cranial nerves 2-12 intact ASSESSMENT/PLAN: 1. Other fatigue - CBC with platelets differential - Comprehensive metabolic panel - NEUROLOGY ADULT REFERRAL 2. Other iron deficiency anemia - CBC with platelets differential 3. Dizziness - Comprehensive metabolic panel - NEUROLOGY ADULT REFERRAL - meclizine (ANTIVERT) 25 MG tablet; Take 1 tablet (25 mg) by mouth every 6 hours as needed for dizziness Dispense: 30 tablet; Refill: 1 4. Generalized muscle weakness - NEUROLOGY ADULT REFERRAL - CK total - Erythrocyte sedimentation rate auto Isis Grace PA-C [facility] Patient Instructions (R53.83) Other fatigue (primary encounter diagnosis) Comment: Plan: CBC with platelets differential, Comprehensive metabolic panel, NEUROLOGY ADULT REFERRAL (D50.8) Other iron deficiency anemia Comment: Plan: CBC with platelets differential (R42) Dizziness Comment: Plan: Comprehensive metabolic panel, NEUROLOGY ADULT REFERRAL, CANCELED: NEUROLOGY ADULT REFERRAL (M62.81) Generalized muscle weakness Comment: Plan: NEUROLOGY ADULT REFERRAL ?? Etiology. Will get labs and follow-up with neurology. To ED if symptoms worsen ETIC PROSPECTING OPERATOR documented in this encounter Nursing Notes Ana Sommers CMA - 06/06/2015 10:40 AM CST Chief Complaint Patient presents with ??? Fatigue Initial BP 118/80 mmHg Pulse 75 Temp(Src) 97 ??F (36.1 ??C) (Oral) Ht 5' 6 (1.676 m) Wt 160lb 12.8 oz (72.938 kg) BMI 25.97 kg/m2 SpO2 98% Estimated body mass index is 25.97 kg/(m^2) as calculated from the following: Height as of this encounter: 5' 6 (1.676 m). Weight as of this encounter: 160 lb 12.8 oz (72.938 kg). BP completed using cuff size: large Ana Sommers CMA Health maintenance Pt. Advised pap is due Ana Sommers CMA ETIC PROSPECTING OPERATOR documented in this encounter Plan of Treatment Scheduled Referrals Name Type Priority Associated Diagnoses Order S [facility] NEUROLOGY ADULT Referral Routine Dizziness Ordered: 06/06/2015 REFERRAL Other fatigue Generalized muscle weakness documented as of this encounter Procedures Procedure Name Priority Date/Time Associated Comments Diagnosis ERYTHROCYTE Routine 06/06/2015 11:28 Generalized muscle Resul ts for this SEDIMENTATION RATE AM MAGNETIC PROSPECTING OPERATOR weakness procedure are in AUTO the results section. COMPREHENSIVE Routine 06/06/2015 11:28 Other fatigue Results for this METABOLIC PANEL AM MAGNETIC PROSPECTING OPERATOR Dizziness procedure ar e in the results section. CK TOTAL Routine 06/06/2015 11:28 Generalized muscle Resul ts for this AM MAGNETIC PROSPECTING OPERATOR weakness procedure are i n the results section. CBC WITH PLATELETS & Routine 06/06/2015 10:49 Other fati li Results for this DIFFERENTIAL AM MAGNETIC PROSPECTING OPERATOR Other iron procedure are i n deficiency anemia the result s section. documented in this encounter Results (ABNORMAL) Erythrocyte sedimentation rate auto (06/06/2015 11:28 AM MAGNETIC PROSPECTING OPERATOR) P athologist Signature Sed Rate 28 (H) 0 - 20 mm/h [facility] Specimen Anatomical Collection Method Collection Time Receive d Time (Source) Location / / Volume Laterality Blood specimen 06/06/2015 11:28 6 (specimen) AM MAGNETIC PROSPECTING OPERATOR 11:29 AM MAGNETIC PROSPECTING OPERATOR Isis Grace PA-C LAB - BLOOD ORDERABLES Performing Organization Address City/State/ZIP Code Phon e Number [facility] [address] [place] [address] CK total (06/06/2015 11:28 AM MAGNETIC PROSPECTING OPERATOR) P athologist Signature CK Total 49 30 - 225 [facility] U/L [facility] Specimen Anatomical Collection Method Collection Time Receive d Time (Source) Location / / Volume Laterality Blood specimen 06/06/2015 11:28 6 (specimen) AM MAGNETIC PROSPECTING OPERATOR 11:29 AM MAGNETIC PROSPECTING OPERATOR Isis Grace PA-C LAB - BLOOD ORDERABLES Performing Organization Address City/State/ZIP Code Phon e Number [facility] [address] [place] [address] Comprehensive metabolic panel (06/06/2015 11:28 AM MAGNETIC PROSPECTING OPERATOR) Patholo gist Method Time Signature Sodium 139 133 - 144 [place] mmol/L [facility] Potassium 4.1 3.4 - 5.3 [place] mmol/L [facility] Chloride 107 94 - 109 [place] mmol/L [facility] Carbon Dioxide 26 20 - 32 [place] mmol/L [facility] Anion Gap 6 3 - 14 [place] mmol/L [facility] Glucose 80 70 - 99 [place] mg/dL [facility] Urea Nitrogen 11 7 - 30 [place] mg/dL [facility] Creatinine 0.57 0.52 - [place] 1.04 CLINICS mg/dL [facility] GFR Estimate >90 >60 [place] Non GFR Calc mL/min/1. CLINICS 7m2 [facility] GFR Estimate If >90 >60 [place] Black GFR Calc mL/min/1. CLIN ICS 7m2 [facility] Calcium 8.7 8.5 - [facility] 10.1 [facility] mg/dL [facility] Bilirubin Total 0.6 0.2 - 1.3 [place] mg/dL [facility] Albumin 3.8 3.4 - 5.0 [place] g/dL [facility] Protein Total 8.3 6.8 - 8.8 [place] g/dL [facility] Alkaline 59 40 - 150 [place] Phosphatase U/L [facility] ALT 15 0 - 50 [place] U/L [facility] AST 22 0 - 45 [place] U/L [facility] Specimen Anatomical Collection Method Collection Time Receive d Time (Source) Location / / Volume Laterality Blood specimen 06/06/2015 11:28 6 (specimen) AM MAGNETIC PROSPECTING OPERATOR 11:29 AM MAGNETIC PROSPECTING OPERATOR Isis Grace PA-C LAB - BLOOD ORDERABLES Performing Organization Address City/State/ZIP Code Phon e Number [facility] [address] [place] [address] (ABNORMAL) CBC with platelets differential (06/06/2015 10:49 AM MAGNETIC PROSPECTING OPERATOR) [facility] gist Method Time Signature WBC 6.8 4.0 - [place] 11.0 [facility] 10e9/L [place] RBC Count 4.07 3.8 - 5.2 [place] 10e12/L [facility] Hemoglobin 10.6 (L) 11.7 - [place] 15.7 g/dL [facility] Hematocrit 33.0 (L) 35.0 - [place] 47.0 % [facility] MCV 81 78 - 100 [facility] MCH 26.0 (L) 26.5 - [place] 33.0 pg [facility] MCHC 32.1 31.5 - [place] 36.5 g/dL [facility] RDW 14.8 10.0 - [place] 15.0 % [facility] Platelet Count 244 150 - 450 [place] 10e9/L [facility] Diff Method Automated [place] Method [facility] % Neutrophils 66.3 % [facility] % Lymphocytes 25.8 % [facility] % Monocytes 6.9 % [facility] % Eosinophils 0.6 % [facility] % Basophils 0.4 % [facility] Absolute 4.5 1.6 - 8.3 [place] Neutrophil 10e9/L [facility] Absolute 1.8 0.8 - 5.3 [place] Lymphocytes 10e9/L [facility] Absolute 0.5 0.0 - 1.3 [place] Monocytes 10e9/L [facility] Absolute 0.0 0.0 - 0.7 [place] Eosinophils 10e9/L [facility] Absolute 0.0 0.0 - 0.2 [place] Basophils 10e9/L [facility] Specimen Anatomical Collection Method Collection Time Receive d Time (Source) Location / / Volume Laterality Blood specimen 06/06/2015 10:49 6 (specimen) AM MAGNETIC PROSPECTING OPERATOR 10:54 AM MAGNETIC PROSPECTING OPERATOR Isis Grace PA-C LAB - BLOOD ORDERABLES Performing Organization Address City/State/ZIP Code Phon e Number [facility] [address] [place] [address] documented in this encounter Visit Diagnoses Diagnosis Other fatigue - Primary Other iron deficiency anemia Dizziness Dizziness and giddiness Generalized muscle weakness Muscle weakness (generalized) documented in this encounter
[2022-02-09 01:02] LABS: Chloride* 107 mmol/L (96-114); Potassium* 3.7 mmol/L (3.6-5.1); Sodium* 139 mmol/L (135-149)
--- OUTSIDE RECORDS SUMMARY | 2022-02-09 01:02 | XMS_ITS | Encounter Summary ---
:1975 Author Organization [facility] Address [address] [place] [address] Care Team Providers Name Role Phone Félix Arteaga MD Primary Care Provider + Reason for Visit Reason Comments Generalized Body Aches Pharyngitis Encounter Details Date Type Department Care Team Description 06/30/2013 Emergency [facility] Stephen Lopez Streptoc occal pharyngitis (Primary Dx); [facility] Emergency Dep karoline Ng MD Abdominal pain [address] [facility] [place], [place] [id number] [address] [facility] [phone] [place], [place] [address] (Wo rk) Social History [...] Sign Reading Time Taken Comments Blood Pressure 120/85 06/30/2013 9:43 PM COMM[facility]ITY [facility] PROGRAM REPRESENTATIVE Pulse - - Temperature 36.6 ??C (97.9 ??F) 06/30/2013 9:43 PM COMMUNITY HEALTH PROGRAM REPRESENTATIVE Respiratory Rate 16 06/30/2013 9:43 PM COMMUNITY HEALTH PROGRAM REPRESENTATIVE Oxygen Saturation 98% 06/30/2013 9:43 PM COMMUNITY HE[facility] PROGRAM REPRESENTATIVE Inhaled Oxygen Concentration - - Weight - - Height - - Body Mass Index - - documented in this encounter Discharge Instructions Discharge InstructionsStStephen henao MD - 06/30/2013 11:31 PM COMMUNITY HEALTH PROGRAM REPRESENTATIVE Home Back SP RU CH *ABDOMINAL PAIN, UNCERTAIN CAUSE (Female) Based on your visit today, the exact cause of your abdominal (stomach) pain is not certain. Your condition does not seem serious now; however, the signs of a serious problem may take more time to appear. Therefore, it is important for you to watch for any new symptoms or worsening of your condition. HOME CARE: ?? Rest until your next exam. No strenuous activities. ?? Eat a diet low in fiber (called a low-residue diet). Foods allowed include refined breads, white rice, fruit and vegetable juices without pulp, tender meats. These foods will pass more easily through the intestine. ?? Avoid fried or fatty foods, dairy, alcohol and spicy foods until your symptoms go away. FOLLOW UP with your doctor or this facility as instructed, or if your pain does not begin to improvein the next 24 hours. GET PROMPT MEDICAL ATTENTION if any of the following occur: ?? Pain gets worse or moves to the right lower abdomen ?? New or worsening vomiting or diarrhea ?? Swelling of the abdomen ?? Unable to pass stool for more than three days ?? New fever over 101?? F (38.3??C), or rising fever ?? Blood in vomit or bowel movements (dark red or black color) ?? Jaundice (yellow color of eyes and skin) ?? Weakness, dizziness or fainting ?? Chest, arm, back, neck or jaw pain ?? Unexpected vaginal bleeding or missed period ?? [id number] [facility], [address] [place] [address], [place] [address]. All rights reserved. This information is not intended as a substitute for professional medical care. Always follow your healthcare professional's instructions. [facility] PROGRAM REPRESENTATIVE AttachmentsThe following attachments cannot be sent through Care Everywhere. PHARYNGITIS, STREP (PRESUMED) (UGANDAN)documented in this encounter Medications at Time of Discharge Medication Sig Dispensed Refills Start Date End Date clindamycin (CLEOCIN) 300 Take 1 capsule (300 40 capsule 0 0 06/30/2013 07/10/2013 MG capsule mg) by mouth 4 times daily for 10 days ondansetron (ZOFRAN ODT) Take 1 tablet (4 10 tablet 0 06/3007/03/2013 4 MG disintegrating mg) by mouth every tablet 8 hours as needed for nausea acetaminophen (TYLENOL) Take 1-2 tablets by 0 12/29/2013 500 MG tablet mouth every 6 hours as needed. docusate sodium 100 MG Take 100 mg by 30 tablet 0 4 09/06/2013 tablet mouth daily MHX-Jrhu-QrOopj-MgHydr-Si Take 5-10 mLs by 237 mL 1 09/0309/06/2013 meth (FIRST-MOUTHWASH mouth as needed. BLM) SUSPIndications: Pharyngitis ferrous gluconate Take 1 tablet by 100 tablet 5 12/07/2010 0 09/06/2013 (FERGON) 324 (38 FE) MG mouth daily (with tabletIndications: breakfast). Menorrhagia Ferrous Sulfate Dried Take by mouth 0 12/29/2013 (SLOW IRON PO) daily. ferrous sulfate Dried 160 Take 1 tablet by 60 tablet 0 07/0309/06/2013 (50 FE) MG tablet mouth daily (with breakfast). fluticasone (FLONASE) 50 [place] 1-2 sprays 1 Package 0 05/0709/06/2013 MCG/ACT nasal spray into both nostrils daily. ibuprofen (ADVIL,MOTRIN) Take 3 tablets by 20 tablet 0 07/201212/29/2013 200 MG tablet mouth every 8 hours as needed for pain. methylprednisoLONE Follow package 21 tablet 0 06/27/2013 (MEDROL DOSEPAK) 4 MG instructions tablet norgestrel-ethinyl Take 1 tablet by 1 Package 3 07/21/2012 09/06/2013 estradiol (LO/OVRAL, 28,) mouth daily. Take 2 0.3-30 MG-MCG per tablet tabs daily until bleeding stops and then take one tab until package is gone penicillin V potassium Take 1 tablet (500 20 tablet 0 06/2509/06/2013 (VEETID) 500 MG mg) by mouth 2 tabletIndications: Acute times daily pharyngitis, Strep throat traMADol (ULTRAM) 50 MG Take 1-2 tablets 15 tablet 0 201308/20/2013 tablet (50-100 mg) by mouth every 6 hours as needed for pain documented as of this encounter ED Notes Stephen Lopez MD - 06/30/2013 9:54 PM CST History Chief Complaint: Sore Throat HPI Alyssa Aguillon is a 37 year old female with a history of streptococcal pharyngitis who presents with a sore throat. The patient states she went into clinic one month ago, tested positive for strep, and was placed on amoxicillin with no relief of her symptoms. She then reports going into clinic on 06/25, tested positive for strep again, and placed on penicillin with no relief. The patient also reports being put on steroids recently with no relief. She denies vomiting, diarrhea, or fever. The patient notes it is still difficult to swallow but she is able to. She also complains of intermittent abdominal cramping. The patient voices no other complaints at this time. Allergies: NKDA Medications: Medrol dosepak Veetid Flonase Ibuprofen Tylenol Past Medical History: Strep pharyngitis Ovarian cyst Anemia Past Surgical History: Colposcopy Family History: Non contributory. Social History: Marital status: single Tobacco use: negative Alcohol use: rarely Patient presents to the ED with her sons. Review of Systems Constitutional: Negative for fever. HENT: Positive for sore throat and trouble swallowing. Gastrointestinal: Positive for abdominal pain. Negative for vomiting and diarrhea. All other systems reviewed and are negative. Physical Exam First Vitals: BP: 120/85 mmHg Heart Rate: 87 Temp: 97.9 ??F (36.6 ??C) Resp: 16 SpO2: 98 % Physical Exam Nursing note and vitals reviewed. Constitutional: No distress. HENT: Mild tonsillar erythema. No exudates, uvula midline. Oropharynx moist Neck: Normal range of motion. Cardiovascular: Normal rate, regular rhythm, normal heart sounds and intact distal pulses. Pulmonary/Chest: Effort normal and breath sounds normal. No respiratory distress. She has no wheezes. She has no rales. Abdominal: Soft. There is no tenderness. Musculoskeletal: Normal range of motion. She exhibits no edema and no tenderness. Lymphadenopathy: She has no cervical adenopathy. Neurological: She is alert. She has normal strength. Skin: Skin is warm and dry. No rash noted. Psychiatric: Her behavior is normal. Emergency Department Course Laboratory: [place]: negative CMP: Cr 0.62 (WNL) Potassium 3.3 (low) Glucose 105 (high) Albumin 3.8 (low) Rest WNL CBC: WBC 11.8 (high) HGB 10.3 (low) PLT 291 (WNL) Rest WNL ED Course: The patient was roomed. The patient's medical charts were reviewed and I examined the patient. Findings and plan explained to the Patient. Patient discharged home, status improved, with instructions regarding supportive care, medications, and reasons to return as well as the importance of close follow-up was reviewed. Discharge prescriptions: Tramadol, Clindamycin, and Zofran. Impression & Plan Medical Decision Making: This is a 37 year old female who had recent diagnosis of strep pharyngitis. She was on a course of amoxicillin and then followed that with penicillin. She has had continued sore throat and intermittentabdominal cramping. She was seen several days ago and started on steroids which have not improved her symptoms. Her mono test was negative. Her work up was otherwise negative. She had no evidence of peritonsillar or retropharyngeal abscess. We elected to treat with Clindamycin. She was given a prescription for Clindamycin to take as directed. She should take Tramadol and Zofran as needed. She is to return to the ED for worsening symptoms and follow up with her doctor next week. Diagnosis: 1. Strep pharyngitis 034.0 2. Abdominal pain 789.00 Sussy Mccrary am serving as a scribe on 06/30/2013 at 9:54 PM to personally document services performed by Dr. Lopez based on my observations and the provider's statements to me. Stephen Lopez MD 07/01/132044 [facility] REPRESENTATIVE Julia Woody RN - 06/30/2013 9:44 PM CST Pt reports being ill for one month. States it started with strep throat, has been treated with Amoxicillin and Penicillin without improvement in symptoms. Was also put on prednisone recently with no improvement in symptoms. Pt denies vomiting though has occasional nausea and abdominal cramping that comes and goes. Of note, pt was seen and evaluated here on Friday. [facility] PROGRAM REPRESENTATIVE documented in this encounter Plan of Treatment Not on filedocumented as of this encounter Procedures Procedure Name Priority Date/Time Associated Comments Diagnosis CBC WITH PLATELETS & STAT 06/30/2013 10:43 Res ults for this DIFFERENTIAL PM COMMUNITY HEALTH PROGRAM REPRESENTATIVE procedure are i n the results section. MONONUCLEOSIS SCREEN STAT 06/30/2013 10:43 Res ults for this PM COMM[facility]ITY [facility] PROGRAM REPRESENTATIVE procedure are i n the results section. COMPREHENSIVE STAT 06/30/2013 10:43 Results fo r this METABOLIC PANEL PM COMMUNITY HEALTH PROGRAM REPRESENTATIVE procedure ar e in the results section. documented in this encounter Results Mononucleosis screen (06/30/2013 10:43 PM COMMUNITY HEALTH PROGRAM REPRESENTATIVE) Patholo gist Method Time Signature Mononucleosis Negative NEG [facility] LAB Specimen Anatomical Collection Method Collection Time Receive d Time (Source) Location / / Volume Laterality Blood specimen 06/30/2013 10:43 4 (specimen) PM [facility] PROGRAM REPRESENTATIVE 10:48 PM COMMUNITY HE[facility] PROGRAM REPRESENTATIVE Stephen Lopez MD LAB - BLOOD ORDERABLES Performing Organization Address City/State/ZIP Code Phon e Number [place] [address] [place], [place] [address] [facility] (ABNORMAL) Comprehensive metabolic panel (06/30/2013 10:43 PM COMMUNITY HEALTH PROGRAM REPRESENTATIVE) Analysis Performed At Patho logist Time Signature Sodium 140 133 - 144 [place] mmol/L [facility] Potassium 3.3 (L) 3.4 - 5.3 [place] mmol/L [facility] Chloride 99 94 - 109 [place] mmol/L [facility] Carbon Dioxide 29 20 - 32 [place] mmol/L [facility] Anion Gap 12 6 - 17 [place] mmol/L [facility] Glucose 105 (H) 60 - 99 [place] mg/dL [facility] Urea Nitrogen 11 5 - 24 [place] mg/dL [facility] Creatinine 0.62 0.52 - [place] 1.04 mg/dL [facility] GFR Estimate >90 >60 [place] mL/min/1.[address] LAB GFR Estimate If >90 >60 [place] Black mL/min/1.[address] LAB Calcium 8.7 8.5 - 10.4 [place] mg/dL [facility] Bilirubin Total 1.0 0.2 - 1.3 [place] mg/dL [facility] Albumin 3.8 (L) 3.9 - 5.1 [place] g/dL [facility] Protein Total 7.5 6.8 - 8.8 [place] g/dL [facility] Alkaline 51 40 - 150 [place] Phosphatase U/L [facility] ALT 28 0 - 50 U/L [facility] AST 25 0 - 45 U/L [facility] Specimen Anatomical Collection Method Collection Time Receive d Time (Source) Location / / Volume Laterality Blood specimen 06/30/2013 10:43 4 (specimen) PM [facility] PROGRAM REPRESENTATIVE 10:48 PM COMMUNITY HEALTH PROGRAM REPRESENTATIVE Stephen Lopez MD LAB - BLOOD ORDERABLES Performing Organization Address City/State/ZIP Code Phon e Number [place] [address] [place], [place] [address] [facility] (ABNORMAL) CBC with platelets differential (06/30/2013 10:43 PM COMMUNITY HEALTH PROGRAM REPRESENTATIVE) [facility] gist Method Time Signature WBC 11.8 (H) 4.0 - [place] 11.0 [facility] 10e9/L [facility] RBC Count 3.80 3.8 - 5.2 [place] 10e12/L [facility] Hemoglobin 10.3 (L) 11.7 - [facility] 15.7 g/dL [facility] Hematocrit 31.6 (L) 35.0 - [facility] 47.0 % [facility] MCV 83 78 - 100 [place] fl [facility] MCH 27.1 26.5 - [facility] 33.0 pg [facility] MCHC 32.6 31.5 - [place] 36.5 g/dL [facility] RDW 14.4 10.0 - [facility] 15.0 % [facility] Platelet Count 291 150 - 450 [place] 10e9/L [facility] Diff Method Automated [facility] LAB % Neutrophils 76.8 % [facility] % Lymphocytes 17.3 % [facility] % Monocytes 5.3 % [facility] % Eosinophils 0.2 % [facility] % Basophils 0.2 % [facility] % Immature 0.2 % [place] Granulocytes [facility] Absolute 9.0 (H) 1.6 - 8.3 [place] Neutrophil 10e9/L [facility] Absolute 2.0 0.8 - 5.3 [place] Lymphocytes 10e9/L [facility] Absolute 0.6 0.0 - 1.3 [place] Monocytes 10e9/L [facility] Absolute 0.0 0.0 - 0.7 [place] Eosinophils 10e9/L [facility] Absolute 0.0 0.0 - 0.2 [place] Basophils 10e9[facility] Abs Immature 0.0 0 - 0.4 [place] Granulocytes e/[facility] LAB Specimen Anatomical Collection Method Collection Time Receive d Time (Source) Location / / Volume Laterality Blood specimen 06/30/2013 10:43 4 (specimen) PM [facility] PROGRAM REPRESENTATIVE 10:48 PM [facility] PROGRAM REPRESENTATIVE Stephen Lopez MD LAB - BLOOD ORDERABLES Performing Organization Address City/State/ZIP Code Phon e Number M [facility] [address] [place], [place] [address] [facility] documented in this encounter Visit Diagnoses Diagnosis Streptococcal pharyngitis - Primary Streptococcal sore throat Abdominal pain Abdominal pain, unspecified site documented in this encounter Care Teams Rn Critical Care Relationship Specialty Start Date End Date Félix Arteaga MD PCP - General 06/25/05 08/29/14 [facility] [address] [address] documented as of this encounter
--- OUTSIDE RECORDS SUMMARY | 2022-02-09 01:02 | XMS_ITS | Encounter Summary ---
:1975 Author Organization [facility] Address [address] [place] [address] Care Team Providers Name Role Phone Félix Arteaga MD Primary Care Provider + Reason for Visit Reason Comments Nausea Encounter Details Date Type Department Care Team Description 02/23/2014 Office Visit [facility] Bryce Jovana Breast te nderness (Primary Dx); Clinic [place] KARAN Adler TELEVISION DIRECTOR Fatigue; [address] [facility] [address] Flatulence, eructation, and gas pain; [place], [place] [address] Nausea; [id number] [place], [place] Abdominal pain, epigastric [phone] [id number] Social History Tobacco Use Types Packs/Day Years [...] Sign Reading Time Taken Comments Blood Pressure 118/66 02/23/2014 10:51 AM CDT Pulse 80 02/23/2014 10:51 AM CDT Temperature 37 ??C (98.6 ??F) 02/23/2014 10:51 AM CDT Respiratory Rate 16 02/23/2014 10:51 AM CDT Oxygen Saturation 100% 02/23/2014 10:51 AM CDT Inhaled Oxygen Concentration - - Weight 66.7 kg (147 lb) 02/23/2014 10:51 AM CDT Height 162.6 cm (5' 4) 02/23/2014 10:51 AM CDT Body Mass Index 25.23 02/23/2014 10:51 AM CDT documented in this encounter Patient Instructions Patient InstructionsJovana Wu NP - 02/23/2014 11:36 AM CDT Images from the original note were not included. Anemia Anemia is a condition that occurs when your body does not have enough healthy red blood cells (RBCs). Your RBCs are the parts of your blood that carry oxygen throughout your body. A protein called hemoglobin allows your RBCs to absorb and release oxygen. Without enough RBCs or hemoglobin, your body doesn???t get enough oxygen. Symptoms of anemia may then occur. Symptoms of Anemia Some people with anemia have no symptoms. But most people have symptoms that range from mild to severe. These can include: ?? Tiredness (fatigue) ?? Weakness ?? Pale skin ?? Shortness of breath ?? Dizziness or fainting ?? Rapid heartbeat ?? Trouble doing normal amounts of activity ?? Jaundice (yellowing of your eyes, skin, or mouth; dark urine) Causes of Anemia Anemia can occur when your body: ?? Loses too much blood ?? Does not make enough RBCs ?? Destroys your RBCs at a faster rate than it can replace them ?? Does not make a normal amount of hemoglobin in your RBCs These problems can occur for many reasons, including: ?? A condition that you are born with (congenital or inherited). This includes sickle cell disease or thalassemia. ?? Heavy bleeding for any reason, including injury, surgery, childbirth, or even heavy menstrual periods. ?? Being low in certain nutrients, such as iron, folate, or vitamin B12. This may be due to poor diet. Also, a condition like celiac disease or Crohn???s disease can cause poor absorption of these nutrients ?? Certain chronic conditions like diabetes, arthritis, or kidney disease. ?? Certain chronic infections like tuberculosis or HIV. ?? Exposure to certain medications, such as those used for chemotherapy. There are different types of anemia. Your doctor can tell you more about the type of anemia you haveand what may have caused it. Diagnosing Anemia To diagnose anemia, your doctor gives you blood tests. These can include: ?? Complete blood cell count (CBC). This test measures the amounts of the different types of blood cells. ?? Blood smear. This test checks the size and shape of your blood cells. To perform the test, your doctor views a drop of your blood under a microscope. Your doctor uses a stain to make the blood cellseasier to see. ?? Iron studies. These tests measure the amount of iron in your blood. Your body needs iron to make hemoglobin in your RBCs. ?? Vitamin B12 and folate studies. These tests check for some of the components that help give RBCs a normal size and shape. ?? Reticulocyte count. This test measures the amount of new RBCs that your bone marrow makes. ?? Hemoglobin electrophoresis. This test checks for problems with your hemoglobin in RBCs. Treating Anemia Treatment for anemia is based on the type of anemia, its cause, and the severity of your symptoms. Treatments may include: ?? Diet changes. This involves increasing the amount of certain nutrients in your diet, such as iron, vitamin B12, or folate. Your doctor may also prescribe nutrient supplements. ?? Medications. Certain medications treat the cause of your anemia. Others help build new RBCs or relieve symptoms. If a medication is the cause of your anemia, your may need to stop or change it. ?? Blood transfusions. Replacing some of your blood can increase the number of healthy RBCs in your body. ?? Surgery. In some cases, your doctor can do surgery to treat the underlying cause of anemia. If you need surgery, your doctor will explain the procedure and outline the risks and benefits for you. Long-term Concerns If you have a certain type of anemia, you can expect a full recovery after treatment. If you have other types of anemia (especially a type you're born with), you will need to manage it for life. Your doctor can tell you more. ?? [id number] Tonie Naik, [address] [place] [address], [place] [address]. All rights reserved. This information is not intended as a substitute for professional medical care. Always follow your healthcare professional's instructions. Try a fiber supplement daily, work on good health habits and self care, we can recehck the urine andpregnancy when you come in for your pap and physical. We will talk about the results at that time unless anything comes back we need to act on sooner *Abdominal Pain, Unknown Cause (Female) The exact cause of your abdominal (stomach) pain is not certain. This does not mean that this is something to worry about, or the right tests were not done. Everyone likes to know the exact cause of the problem, but sometimes with abdominal pain, there is no clear-cut cause, and this could be a good thing. The good news is that your symptoms can be treated, and you will feel better. Your condition does not seem serious now; however, sometimes the signs of a serious problem may takemore time to appear. For this reason, it is important for you to watch for any new symptoms, problems, or worsening of your condition. Over the next few days, the abdominal pain may come and go, or be continuous. Other common symptoms can include nausea and vomiting. Sometimes it can be difficult to tell if you feel nauseous, you may just feel bad and not associate that feeling with nausea. Constipation, diarrhea, and a fever may go along with the pain. The pain may continue even if treated correctly over the following days. Depending on how things go,sometimes the cause can become clear and may require further or different treatment. Additional evaluations, medications, or tests may be needed. Home care Your health care provider may prescribe medications for pain, symptoms, or an infection. Follow the health care provider's instructions for taking these medications. General care ?? Rest until your next exam. No strenuous activities. ?? Try to find positions that ease discomfort. A small pillow placed on the abdomen may help relievepain. ?? Something warm on your abdomen (such as a heating pad) may help, but be careful not to burn yourself. Diet ?? Do not force yourself to eat, especially if having cramps, vomiting, or diarrhea. ?? Water is important so you do not get dehydrated. Soup may also be good. Sports drinks may also help, especially if they are not too acidic. Make sure you don't drink sugary drinks as this can make things worse. Take liquids in small amounts. Do not guzzle them. ?? Caffeine sometimes makes the pain and cramping worse. ?? Avoid dairy products if you have vomiting or diarrhea. ?? Don't eat large amounts at a time. Wait a few minutes between bites. ?? Eat a diet low in fiber (called a low-residue diet). Foods allowed include refined breads, white rice, fruit and vegetable juices without pulp, tender meats. These foods will pass more easily through the intestine. ?? Avoid fried or fatty foods, dairy, alcohol and spicy foods until your symptoms go away. Follow-up care Follow up with your health care provider as instructed, or if your pain does not begin to improve inthe next 24 hours. When to seek medical care Seek prompt medical care if any of the following occur: ?? [...] of eyes and skin) ?? Weakness, dizziness ?? Chest, arm, back, neck or jaw pain ?? Unexpected vaginal bleeding or missed period Call 911 Call emergency services if any of the following occur: ?? Trouble breathing ?? Confusion ?? Fainting or loss of consciousness ?? Rapid heart rate ?? Seizure ?? [phone], [place] [address]. All rights reserved. This information is not intended as a substitute for professional medical care. Always follow your healthcare professional's instructions. documented in this encounter Progress Notes Jovana Wu NP - 02/23/2014 10:52 AM CDT SUBJECTIVE: Alyssa Aguillon is a 38 year old female who presents to clinic today for the following health issues: Illness or hormonal? Nausea and bloating, tiredness ?? Duration: x 2 weeks ?? Description fatigue/malaise, nausea and tender breasts, been feeling hot/cold, bloated, some gas ?? Severity: moderate ?? Accompanying signs and symptoms: see above ?? History (predisposing factors): Mom had early menopause at age 32 and she is not sure of the reason, sisters are older than her and have not had yet, had anemia last tested in August and could not tolerate the Iron so hasn't been taking any. Last TSH was 3 years ago and wnl, abnormal pap in 2010 [facility] and thinks she had colposcopy at another ObGyn ? ?? Precipitating or alleviating factors: None, no new stress or mood changes ?? 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 Took HPT 2 days ago and was negative Ovarian cyst was removed years ago-not sure which type of cyst Is due for her health maintenance exam with pap, so pt prefers to wait until then to do the pap and will get records from her other ObGyn Problem list and histories reviewed & adjusted, as indicated. Additional history: as documented Patient Active Problem List Diagnosis ??? CARDIOVASCULAR SCREENING; LDL GOAL LESS THAN 160 ??? Anemia ??? Ovarian cyst ??? Menorrhagia ??? Abnormal Pap smear ??? Acute low back pain with disc symptoms, duration less than 6 weeks ??? Bulge of lumbar disc without myelopathy ??? Low back pain Past Surgical History Procedure Laterality Date ??? [...] Family History Negative Sister 2 ??? Breast CA No family hx of ??? Colon CA No family hx of No current outpatient prescriptions on file. BP Readings from Last 3 Encounters: 02/23/14 118/66 12/29/13 118/64 09/08/13 106/62 Wt Readings from Last 3 Encounters: 02/23/14 147 lb (66.679 kg) 12/29/13 139 lb (63.05 kg) 09/08/13 145 lb 11.2 oz (66.089 kg) Labs reviewed in EPIC ROS: Constitutional, neuro, ENT, endocrine, pulmonary, cardiac, gastrointestinal, genitourinary, musculoskeletal, integument and psychiatric systems are negative, except as otherwise noted. OBJECTIVE: BP 118/66 Pulse 80 Temp(Src) 98.6 ??F (37 ??C) (Oral) Resp 16 Ht 5' 4 (1.626 m) Wt 147 lb(66.679 kg) BMI 25.22 kg/m2 SpO2 100% LMP 02/03/2014 Body mass index is 25.22 kg/(m^2). GENERAL APPEARANCE: healthy, alert and no distress EYES: Eyes grossly normal to inspection and conjunctivae and sclerae normal HENT: nose and mouth without ulcers or lesions, oral mucous membranes moist and oropharynx clear NECK: no adenopathy RESP: lungs clear to auscultation - no rales, rhonchi or wheezes CV: regular rates and rhythm, normal S1 S2, no S3 or S4 and no murmur, click or rub ABDOMEN: soft, generalized mild tenderness, without hepatosplenomegaly or masses and bowel sounds normal, no McBurney or rebound tenderness, negative Drew's (female): no cva tenderness, pelvic exam deferred to health maintenance exam SKIN: no suspicious lesions or rashes NEURO: Normal strength and tone, sensory exam grossly normal, mentation intact and speech normal PSYCH: affect normal/bright and anxious Diagnostic test results: Results for orders placed in visit on 02/23/14 (from the past 24 hour(s)) UA MACROSCOPIC WITH REFLEX TO MICROSCOPIC AND CULTURE Result Value Range Color Urine Yellow Appearance Urine Clear Glucose Urine Negative NEG mg/dL Bilirubin Urine Negative NEG Ketones Urine Negative NEG mg/dL Specific [place] Urine 1.015 1.003 - 1.035 Blood Urine Trace (*) NEG pH Urine 6.5 5.0 - 7.0 pH Protein Albumin Urine Negative NEG mg/dL Urobilinogen Urine 0.2 0.2 - 1.0 EU/dL Nitrite Urine Negative NEG Leukocyte Esterase Urine Small (*) NEG Source Midstream Urine BETA HCG QUAL IFA URINE Result Value Range Beta HCG Qual IFA Urine Negative NEG URINE MICROSCOPIC Result Value Range WBC Urine O - 2 0 - 2 /HPF RBC Urine O - 2 0 - 2 /HPF ASSESSMENT/PLAN: ICD-9-CM 1. Breast tenderness 611.71 Beta HCG qual IFA urine Urine Microscopic CANCELED: HCG qualitative 2. Fatigue 780.79 Beta HCG qual IFA urine CBC with platelets differential TSH with free T4 reflex CANCELED: HCG qualitative 3. Flatulence, eructation, and gas pain 787.3 *UA reflex to Microscopic and Culture Wet prep 4. Nausea 787.02 *UA reflex to Microscopic and Culture Beta HCG qual IFA urine Wet prep CANCELED: HCG qualitative 5. Abdominal pain, epigastric 789.06 Many differentials for her list of symptoms today including nausea, fatigue, breast tenderness, and bloating with abdominal pain. Pt appears mildly anxious but denies issues with stress, anxiety or depression. ua with trace of leuko and heme but micro was normal, wet prep negative, and hcg negative today. Discussed it may be too early to test for since LMP was 02/03, early menopause in her mother so may be possibility, on my list of differentials is malignancy and I recommended she have herpap and pelvic exam soon. Pt will bring in ObGyn records from her other clinic, if no pap or colpo since her last in 2010 that was abnormal, she does need rebecca with her pelvic exam. Pt wishes to defer this until her physical-recommended she get back in within 1-2 weeks if possible, and will recheck urine at that time. Slightly difficult historian regarding past testing, could not remember scans or procedures, she did have a number of CT, pelvic ultrasounds, and ovarian mass removed in 2010. No red flags on exam today, if continues Return to Clinic for further work-up and would consider repeating pelvic ultrasound, stool testing, and/or GI referral Follow up with Provider - as above, Return to Clinic sooner if any new fevers, signs or symptoms or concerns See Patient Instructions Jovana Wu NP [facility] GRINDER MACHINE documented in this encounter Nursing Notes Tuan Meraz, ENGRAVER COPPERPLATE - 02/23/2014 10:55 AM CDT Chief Complaint Patient presents with ??? Nausea Initial BP 118/66 Pulse 80 Temp(Src) 98.6 ??F (37 ??C) (Oral) Ht 5' 4 (1.626 m) Wt 147 lb (66.679 kg) BMI 25.22 kg/m2 SpO2 100% LMP 02/03/2014 Estimated body mass index is 25.22 kg/(m^2)as calculated from the following: Height as of this encounter: 5' 4 (1.626 m). Weight as of this encounter: 147 lb (66.679 kg). BP completed using cuff size: regular Tuan Meraz CMA documented in this encounter Plan of Treatment Not on filedocumented as of this encounter Procedures Procedure Name Priority Date/Time Associated Comments Diagnosis WET PREPARATION Routine 02/23/2014 11:56 Flatulence, Results for this AM CDT Eructation, And Gas procedur e are in Pain the results Nausea section. CBC WITH PLATELETS & Routine 02/23/2014 11:52 Fatigue Res ults for this DIFFERENTIAL AM CDT procedure are i n the results section. TSH WITH FREE T4 Routine 02/23/2014 11:52 Fatigue Results for this REFLEX AM CDT procedure are i n the results section. URINE MICROSCOPIC Routine 02/23/2014 11:14 Breast tenderness R esults for this AM CDT procedure are i n the results section. UA MACROSCOPIC WITH Routine 02/23/2014 11:14 Flatulence, Resu lts for this REFLEX TO MICROSCOPIC AM CDT Eructation, And Gas procedure are in AND CULTURE Pain the results Nausea section. BETA HCG QUALITATIVE Routine 02/23/2014 11:14 Breast ten derness Results for this IFA URINE AM CDT Fatigue procedure are in Nausea the results section. documented in this encounter Results Wet prep (02/23/2014 11:56 AM CDT) Patholo gist Method Time Signature Specimen Vagina [place] Description [facility] Wet Prep No clue cells seen [place] No yeast seen [facility] No Trichomonas seen [place] Micro Report FINAL [place] Status 02/23/2014 [facility] Specimen Anatomical Collection Method Collection Time Receive d Time (Source) Location / / Volume Laterality 02/23/2014 11:56 02/23/2014 AM CDT 11:58 AM CDT Jovana Wu APRN TELEVISION DIRECTOR LAB - MICRO GENERAL ORDERAB LES Performing Organization Address City/State/ZIP Code Phon e Number [facility] [id number] [place] [address] TSH with free T4 reflex (02/23/2014 11:52 AM CDT) P athologist Signature TSH 1.69 0.40 - 4.00 [facility] mU/L [facility] Comment: Effective 12/01/2013, the reference range for this assay has changed to reflect new instrumentation/methodology. Specimen Anatomical Collection Method Collection Time Receive d Time (Source) Location / / Volume Laterality Blood specimen 02/23/2014 11:52 4 (specimen) AM CDT 11:57 AM CDT Jovana Wu APRN TELEVISION DIRECTOR LAB - BLOOD ORDERABLES Performing Organization Address City/State/ZIP Code Phon e Number [facility] [address] [place] [address] [facility] [address] [place], [place] [address] (ABNORMAL) CBC with platelets differential (02/23/2014 11:52 AM CDT) [facility] Method Time Signature WBC 6.6 4.0 - [place] 11.0 [facility] 10e9/L [place] RBC Count 3.91 3.8 - 5.2 [place] 10e12/L [facility] Hemoglobin 9.9 (L) 11.7 - [place] 15.7 g/dL [facility] Hematocrit 32.3 (L) 35.0 - [place] 47.0 % [facility] MCV 83 78 - 100 [facility] MCH 25.3 (L) 26.5 - [place] 33.0 pg [facility] MCHC 30.7 (L) 31.5 - [place] 36.5 g/dL [facility] RDW 15.5 (H) 10.0 - [place] 15.0 % [facility] Platelet Count 257 150 - 450 [place] 10e9/L [facility] Diff Method Automated [facility] % Neutrophils 65.1 % [facility] % Lymphocytes 25.5 % [facility] % Monocytes 8.3 % [facility] % Eosinophils 0.6 % [facility] % Basophils 0.5 % [facility] Absolute 4.3 1.6 - 8.3 [place] Neutrophil 10e9/L [facility] Absolute 1.7 0.8 - 5.3 [place] Lymphocytes 10e9/L [facility] Absolute 0.6 0.0 - 1.3 [place] Monocytes 10e9/L [facility] Absolute 0.0 0.0 - 0.7 [place] Eosinophils 10e9/L [facility] Absolute 0.0 0.0 - 0.2 [place] Basophils 10e9/L [facility] Specimen Anatomical Collection Method Collection Time Receive d Time (Source) Location / / Volume Laterality Blood specimen 02/23/2014 11:52 4 (specimen) AM CDT 11:57 AM CDT Jovana Wu APRN, CNP LAB - BLOOD ORDERABLES Performing Organization Address City/[facility]/ZIP Code Phon e Number [facility] [address] [place] [address] Urine Microscopic (02/23/2014 11:14 AM CDT) P athologist Signature WBC Urine O - 2 0 - 2 /HPF [facility] RBC Urine O - 2 0 - 2 /HPF [facility] Specimen Anatomical Collection Method Collection Time Receive d Time (Source) Location / / Volume Laterality 02/23/2014 11:14 02/23/2014 AM CDT 11:15 AM CDT Jovana Wu APRN, CNP LAB - URINE ORDERABLES Performing Organization Address City/[facility]/ZIP Code Phon e Number [facility] [address] [place] [address] Beta HCG qual IFA urine (02/23/2014 11:14 AM CDT) P athologist Signature Beta HCG Qual Negative NEG [place] IFA Urine [facility] Specimen Anatomical Collection Method Collection Time Receive d Time (Source) Location / / Volume Laterality Urine specimen 02/23/2014 11:14 4 (specimen) AM CDT 11:15 AM CDT Jovana Wu APRN, CNP LAB - URINE ORDERABLES Performing Organization Address City/[facility]/ZIP Code Phon e Number [facility] [address] [place] [address] (ABNORMAL) *UA reflex to Microscopic and Culture (02/23/2014 11:14 AM CDT) Patholo gist Method Time Signature Color Urine Yellow [facility] Appearance Urine Clear [facility] Glucose Urine Negative NEG mg/dL [facility] Bilirubin Urine Negative NEG [facility] Ketones Urine Negative NEG mg/dL [facility] Specific [place] 1.015 1.003 - [place] Urine 1.035 [facility] Blood Urine Trace (A) NEG [facility] pH Urine 6.5 5.0 - 7.0 [place] pH [facility] Protein Albumin Negative NEG mg/dL [place] Urine [facility] Urobilinogen 0.2 0.2 - 1.0 [place] Urine EU/dL [facility] Nitrite Urine Negative NEG [facility] Leukocyte Small (A) NEG [place] Esterase Urine [facility] Source Midstream [place] Urine [facility] Specimen Anatomical Collection Method Collection Time Receive d Time (Source) Location / / Volume Laterality Urine specimen 02/23/2014 11:14 4 (specimen) AM CDT 11:15 AM CDT Jovana Wu APRN TELEVISION DIRECTOR LAB - URINE ORDERABLES Performing Organization Address City/State/ZIP Code Phon e Number [facility] [id number] [place] [address] documented in this encounter Visit Diagnoses Diagnosis Breast tenderness - Primary Mastodynia Fatigue Other malaise and fatigue Flatulence, eructation, and gas pain Nausea Nausea alone Abdominal pain, epigastric documented in this encounter Care Teams Layer Out Plate Glass Relationship Specialty Start Date End Date Félix Arteaga MD PCP - General 06/25/05 08/29/14 [facility] AESTHETIC WELLNESS [address] [place] [address] documented as of this encounter
--- OUTSIDE RECORDS SUMMARY | 2022-02-09 01:02 | XMS_ITS | Encounter Summary ---
:1975 Author Organization [place] Address [address] [facility] [place] [address] Care Team Providers Name Role Phone Félix Arteaga MD Primary Care Provider + Reason for Visit Reason Comments No Show Encounter Details Date Type Department Care Team Description 03/23/2014 Office Visit [facility] Marlene Mitchell N, NO S HOW (Primary Dx) [facility] [facility] [address] [place] [id number] [phone] (Wo rk) Social History Tobacco Use Types [...] documented as of this encounter Progress Notes Marlene Mitchell PA-C - 03/24/2014 7:57 AM CST NO SHOW ULAR KNIFE MACHINE CUTTER documented in this encounter Plan of Treatment Not on filedocumented as of this encounter Visit Diagnoses Diagnosis NO SHOW - Primary documented in this encounter Care Teams Fabric Pattern Grader Relationship Specialty Start Date End Date Félix Arteaga MD PCP - General 06/25/05 08/29/14 [facility] AESTHETIC WELLNESS [address] [place] [address] documented as of this encounter
--- OUTSIDE RECORDS SUMMARY | 2022-02-09 01:02 | XMS_ITS | Encounter Summary ---
:1975 Author Organization [place] Address [address] [place] [address] Care Team Providers Name Role Phone Félix Arteaga MD Primary Care Provider + Reason for Visit Reason Onset Date Comments Physical Therapy 09/13/2013 Patient care team ca ll by Janeth Gautam Encounter Details Date Type Department Care Team Description 09/13/[address] [facility] (Pat ient care team [place] call by Janeth Gautam [address] [place] [address] ) [address] [place] [address] Social History Tobacco Use Types Packs/Day Years [...] on filedocumented in this encounter Care Teams Java Web User Interface Developer Relationship Specialty Start Date End Date Félix Arteaga MD PCP - General 06/25/05 08/29/14 [facility] [address] [place] [address] documented as of this encounter
--- OUTSIDE RECORDS SUMMARY | 2022-02-09 01:02 | XMS_ITS | Encounter Summary ---
:1975 Author Organization [place] Address [address] [facility] [place] [address] Care Team Providers Name Role Phone Félix Arteaga MD Primary Care Provider + Reason for Referral JORDIN Physical Therapy - Closed Specialty Diagnoses / Procedures Referred By Contact Refer red To Contact Diagnoses LBP (low back pain) Eliza Badillo, [facility] PA-C [facility] [address] [place], [place] [address]N [facility] [address] [place] [address] [place] [address] Phone: [phone] Referral ID Status Reason Start Date Expiration Date Visits Requ ested Visits Authorized [id number] Closed 09/06/2013 03/05/2014 1 1 Reason for Visit Reason Comments Back Pain Encounter Details Date Type Department Care Team Description 09/06/2013 Office Visit [facility] Eliza Badilol Dysuria (Primary Dx); Clinic Mina JEREMY Mooney LBP (low back pain); [id number] [facility] Microscopic hematuria [address] [facility] [address] [facility] [address] [place] [address] Social History Tobacco Use Types Packs/Day Years [...] Sign Reading Time Taken Comments Blood Pressure 122/76 09/06/2013 1:59 PM CDT Pulse 86 09/06/2013 1:59 PM CDT Temperature 36.3 ??C (97.3 ??F) 09/06/2013 1:59 PM CDT Respiratory Rate 18 09/06/2013 1:59 PM CDT Oxygen Saturation - - Inhaled Oxygen Concentration - - Weight 64.9 kg (143 lb) 09/06/2013 1:59 PM CDT Height - - Body Mass Index 24.55 08/05/2013 7:12 PM CDT documented in this encounter Progress Notes Eliza Badillo PA-C - 09/06/2013 1:49 PM CDT SUBJECTIVE: Alyssa Aguillon is a 38 year old female who presents to clinic today for the following health issues: Back Pain ?? Duration: this am Specific cause: while bending over ?? Description (location/character/radiation): low back pain radiates around rt side ?? Intensity: severe ?? Accompanying signs and symptoms (weakness/fever/urinary symptoms): feeling chilled, weakness-difficult to bend over ?? History (similar episodes/surgery/injury): back paiin about 4 years ago ?? Precipitating or alleviating factors: bloating feeling ?? Therapies tried and outcome: None Problem list and histories reviewed & adjusted, as indicated. Additional history: as documented Patient Active Problem List Diagnosis ??? CARDIOVASCULAR SCREENING; LDL GOAL LESS THAN 160 ??? Anemia ??? Ovarian cyst ??? Menorrhagia ??? Abnormal Pap smear Past Surgical History Procedure Laterality Date ??? [...] ??? Colon CA No family hx of Current Outpatient Prescriptions Medication Sig Dispense Refill ??? oxyCODONE-acetaminophen (PERCOCET) 5-325 MG per tablet Take 1-2 tablets by mouth every 6 hours as needed for moderate to severe pain 28 tablet 0 ??? cyclobenzaprine (FLEXERIL) 10 MG tablet Take 0.5-1 tablets (5-10 mg) by mouth 3 times daily as needed for muscle spasms 30 tablet 1 ??? ibuprofen (ADVIL,MOTRIN) 200 MG tablet Take 3 tablets by mouth every 8 hours as needed for pain.20 tablet 0 ??? Ferrous Sulfate Dried (SLOW IRON PO) Take by mouth daily. ??? acetaminophen (TYLENOL) 500 MG tablet Take 1-2 tablets by mouth every 6 hours as needed. Allergies Allergen Reactions ??? Compazine (Prochlorperazine) BP Readings from Last 3 Encounters: 09/06/13 122/76 08/19/13 119/47 08/05/13 116/78 Wt Readings from Last 3 Encounters: 09/06/13 143 lb (64.864 kg) 08/05/13 122 lb (55.339 kg) 06/25/13 141 lb (63.957 kg) Labs reviewed in [facility] Problem list, Medication list, Allergies, and Medical/Social/Surgical histories reviewed in [facility] andupdated as appropriate. Review Of Systems Skin: negative Eyes: negative Ears/Nose/Throat: negative Respiratory: No shortness of breath, dyspnea on exertion, cough, or hemoptysis Cardiovascular: negative Gastrointestinal: negative Genitourinary: dysuria Musculoskeletal: lbp Neurologic: negative Psychiatric: negative Hematologic/Lymphatic/Immunologic: negative Endocrine: negative Exam: Constitutional: healthy, alert and moderate distress : Deferred Musculoskeletal: extremities normal- no gross deformities noted, gait antalgic, limited flexion/extention lumbar due to pain, intact LE strength and normal muscle tone Skin: no suspicious lesions or rashes Neurologic: slow from arising from chair. Gait cautious/antalgic. Able to toe/heel walk Psychiatric: intermittently tearful I/P: 1. Dysuria/microscopic hematuria - no UTI, pt expecting period this week, pt to repeat UA with lab only in a couple of weeks to confirm urine clears, discussed possible kidney stone and pt to push fluids 2. LBP - referral to PT today, pt to start pain med, 800mg TID of ibuprofen, use Flexeril prn - if not better after 4 sessions, f/u or go to ER if worsening documented in this encounter Nursing Notes Tanna Gomes MA - 09/06/2013 1:59 PM CDT BP completed using cuff size regular-RA documented in this encounter Plan of Treatment Scheduled Referrals Name Type Priority Associated Diagnoses Order S chedule JORDIN PT, HAND, AND Referral Routine LBP (low back pain) Ord ered: 09/06/2013 CHIROPRACTIC REFERRAL documented as of this encounter Procedures Procedure Name Priority Date/Time Associated Comments Diagnosis URINE MICROSCOPIC Routine 09/06/2013 2:06 PM Dysuria Resu lts for this CDT procedure are i n the results section. UA MACROSCOPIC WITH STAT 09/06/2013 2:06 PM Dysuria Re sults for this REFLEX TO MICROSCOPIC CDT proced ure are in AND CULTURE the results section. documented in this encounter Results (ABNORMAL) Urine Microscopic (09/06/2013 2:06 PM CDT) [facility] gist Method Time Signature WBC Urine O - 2 0 - 2 [facility] /HPF [facility] RBC Urine 2-5 (A) 0 - 2 [facility] /HPF [facility] Squamous Moderate (A) FEW /LPF [place] Epithelial [facility] Bacteria Urine Few (A) NEG /HPF [facility] Specimen Anatomical Collection Method Collection Time Receive d Time (Source) Location / / Volume Laterality 09/06/2013 2:06 PM 4 2:09 CDT PM CDT Eliza Badillo PA-C LAB - URINE ORDERABLES Performing Organization Address City/State/ZIP Code Phon e Number [facility] [address] [place] [address] (ABNORMAL) *UA reflex to Microscopic and Culture (09/06/2013 2:06 PM CDT) [facility] Method Time Signature Color Urine Yellow [facility] Appearance Urine Clear [facility] Glucose Urine Negative NEG mg/dL [facility] Bilirubin Urine Negative NEG [facility] Ketones Urine Negative NEG mg/dL [facility] Specific [place] 1.010 1.003 - [place] Urine 1.035 [facility] Blood Urine Moderate (A) NEG [facility] pH Urine 5.5 5.0 - 7.0 [place] pH [facility] Protein Albumin Negative NEG mg/dL [place] Urine [facility] Urobilinogen 0.2 0.2 - 1.0 [place] Urine EU/dL [facility] Nitrite Urine Negative NEG [facility] Leukocyte Negative NEG [place] Esterase Urine [facility] Source Midstream [place] Urine [facility] Specimen Anatomical Collection Method Collection Time Receive d Time (Source) Location / / Volume Laterality Urine specimen 09/06/2013 2:06 PM 014 2:09 (specimen) CDT PM CDT Eliza Badillo PA-C LAB - URINE ORDERABLES Performing Organization Address City/State/ZIP Code Phon e Number [facility] [address] [place] [address] documented in this encounter Visit Diagnoses Diagnosis Dysuria - Primary LBP (low back pain) Lumbago Microscopic hematuria documented in this encounter Care Teams Senior Materials Planner Relationship Specialty Start Date End Date Félix Arteaga MD PCP - General 06/25/05 08/29/14 [facility] [address] [place] [address] documented as of this encounter
--- OUTSIDE RECORDS SUMMARY | 2022-02-09 01:02 | XMS_ITS | Encounter Summary ---
:1975 Author Organization [place] Address [address] [place] [address] Care Team Providers Name Role Phone Félix Arteaga MD Primary Care Provider + Reason for Visit Reason Onset Date Comments Lab Result Notice 02/24/2014 Encounter Details Date Type Department Care Team Description 02/24/2014 Telephone [facility] Jovana Wu nn, Lab Result Notice [facility] [address] [phone] [address] [place], [place] [address] (Wo rk) Social History Tobacco Use Types [...] this encounter Miscellaneous Notes Telephone Encounter - Jovana Wu NP - 02/24/2014 4:38 PM CDT Will My chart pt documented in this encounter Plan of Treatment Not on filedocumented as of this encounter Visit Diagnoses Not on filedocumented in this encounter Care Teams Senior Ui Developer Relationship Specialty Start Date End Date Félix Arteaga MD PCP - General 06/25/05 08/29/14 [facility] [address] [place] [address] documented as of this encounter
--- OUTSIDE RECORDS SUMMARY | 2022-02-09 01:02 | XMS_ITS | Encounter Summary ---
:1975 Author Organization [place] Address [address] [facility] [place] [address] Care Team Providers Name Role Phone Félix Arteaga MD Primary Care Provider + Reason for Visit Reason Onset Date Comments ER F/U 08/06/2013 [facility] ER on 08/05/2013 Encounter Details Date Type Department Care Team Description 08/06/2013 Telephone [facility] Félix Arteaga E R F/U ([facility] ER on [facility] Redd Baxter MD 08/05/2013) [address] [facility] [address] [address] [phone] [place], [place] [address] (Wo rk) Social History [...] encounter Miscellaneous Notes Telephone Encounter - Whitney Dudley RN - 08/09/2013 3:44 PM CDT ED / Discharge Outreach Protocol Patient Contact Pt is doing better did set up appt to see Isis at [facility] on 08/12/13. Advised should be seen in clinic as she has had multiple ER visits. Counseled pt on using clinic or UC for issues do not require ER visits. Whitney Dudley, RN Telephone Encounter - Whitney Dudley RN - 08/06/2013 10:17 AM CDT ED / Discharge Outreach Protocol Patient Contact Attempt # 1 Was call answered? No. Left message on voicemail with information to call me back. Whitney Dudley, RN Telephone Encounter - Bree George - 08/06/2013 9:31 AM CDT [facility] ER on 08/05/2013 ovarian cyst, abdominal pain, right upper quadrant, constipation No future appointment made. Last seen by Isis George Large Engine Assembler documented in this encounter Plan of Treatment Not on filedocumented as of this encounter Visit Diagnoses Not on filedocumented in this encounter Care Teams Anodic Operator Relationship Specialty Start Date End Date Félix Arteaga MD PCP - General 06/25/05 08/29/14 [facility] [address] [place] [address] documented as of this encounter
--- OUTSIDE RECORDS SUMMARY | 2022-02-09 01:02 | XMS_ITS | Encounter Summary ---
:1975 Author Organization [place] Address [address] [place] [address] Care Team Providers Name Role Phone Félix Arteaga MD Primary Care Provider + Reason for Visit Reason Comments ER F/U [facility] on 2013 Encounter Details Date Type Department Care Team Description 08/20/2013 Telephone [facility] Félix Arteaga E R F/U ([facility] Redd Baxter MD 2013) [address] [facility] [address] [address] [phone] [place], [place] [address] (Wo rk) Social History [...] Notes Telephone Encounter - Bree George - 08/20/2013 9:09 AM CDT [facility] on 2013 for acute pharyngitis, abdominal pain No future appointment scheduled. Last seen by Isis at our Clinic. Bree George Rails Developer documented in this encounter Plan of Treatment Not on filedocumented as of this encounter Visit Diagnoses Not on filedocumented in this encounter Care Teams Embossing Unit Operator Relationship Specialty Start Date End Date Félix Arteaga MD PCP - General 06/25/05 08/29/14 [facility] [address] [place] [address] documented as of this encounter
--- OUTSIDE RECORDS SUMMARY | 2022-02-09 01:02 | XMS_ITS | Encounter Summary ---
:1975 Author Organization [place] Address [address] [place] [address] Care Team Providers Name Role Phone Félix Arteaga MD Primary Care Provider + Reason for Visit Reason Onset Date Comments Nurse Advice Line 03/23/2014 Encounter Details Date Type Department Care Team Description 03/23/2014 Telephone [facility] Félix Arteaga Advice Line 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 She can use a neti pot-saline nasal wash several times a day for congestion and cepacol drops for throat pain Eleonora Campo RN, BSN ION PATTERNMAKER documented in this encounter Plan of Treatment Not on filedocumented as of this encounter Visit Diagnoses Not on filedocumented in this encounter Care Teams Acidity Tester Relationship Specialty Start Date End Date Félix Arteaga MD PCP - General 06/25/05 08/29/14 [facility] [address] [place] [address] documented as of this encounter
--- OUTSIDE RECORDS SUMMARY | 2022-02-09 01:02 | XMS_ITS | Encounter Summary ---
:1975 Author Organization [place] Address [address] [place] [address] Care Team Providers Name Role Phone Félix Arteaga MD Primary Care Provider + Reason for Visit Reason Onset Date Comments ER F/U 07/01/2013 ER f/u 06/30/13 Stre ptococcal Pharyngitis, Abd Pain Encounter Details Date Type Department Care Team Description 07/01/2013 Telephone [facility] Félix Arteaga E R F/U (ER f/u 06/30/13 [facility] Redd Baxter MD Streptococcal [address] [facility] Pharyngitis, Abd Pain) [place], [place] WELL[place] [address] [address] [phone] [place], [place] [address] (Wo rk) Social History [...] Telephone Encounter - Erica Stone RN - 07/05/2013 4:49 PM CST ED / Discharge Outreach Protocol Patient Contact Attempt # 3 Was call answered? No. 3rd attempt. Encounter closed. Erica Stone RN [facility] Telephone Encounter - Erica Stone RN - 07/02/2013 3:59 PM CST ED / Discharge Outreach Protocol Patient Contact Attempt # 2 Was call answered? No. Left message on voicemail with information to call me back. Erica Stone RN [facility] Telephone Encounter - Erica Stone RN - 07/01/2013 3:04 PM CST Also message for son and daughter (daughter not same last name) ED / Discharge Outreach Protocol Patient Contact Attempt # 1 Was call answered? No. Left message on voicemail with information to call me back. Erica Stone RN [facility] Telephone Encounter - Ilene Rivas - 07/01/2013 12:05 PM CST Please call patient for ER f/u 06/30/13 Streptococcal Pharyngitis, Abd Pain. Ilene Rivas. Guide Escort. [facility] documented in this encounter Plan of Treatment Not on filedocumented as of this encounter Visit Diagnoses Not on filedocumented in this encounter Care Teams Call Center Dispatcher Relationship Specialty Start Date End Date Félix Arteaga MD PCP - General 06/25/05 08/29/14 [facility] [address] [place] [address] documented as of this encounter
--- OUTSIDE RECORDS SUMMARY | 2022-02-09 01:02 | XMS_ITS | Encounter Summary ---
:1975 Author Organization [place] Address [address] [facility] [place] [address] Care Team Providers Name Role Phone Félix Arteaga MD Primary Care Provider + Reason for Visit Reason Onset Date Comments Panel Management 06/03/2014 Pap smear Encounter Details Date Type Department Care Team Description 06/03/[address] [facility] Félix Arteaga phil Management ([facility] Redd Baxter MD smear) [id number] [place] [address] [place] [address] [address] [phone] [place], [place] [address] (Wo rk) Social History [...] Telephone Encounter - Tanna Jalloh MA - 06/10/2014 12:00 PM CST Phone # not in service. Letter sent. RVISOR MOTOR VEHICLE ASSEMBLY Telephone Encounter - Stalin Cabezas CMA - 06/03/2014 10:35 AM CST Panel Management Review Date of last visit with a [place] provider: Whitney Almaguer on 03/01/2014. Date of next visit with a [facility] provider: None. Problem List Patient Active Problem List Diagnosis ??? CARDIOVASCULAR SCREENING; LDL GOAL LESS THAN 160 ??? Anemia ??? Ovarian cyst ??? Menorrhagia ??? Abnormal Pap smear ??? Acute low back pain with disc symptoms, duration less than 6 weeks ??? Bulge of lumbar disc without myelopathy ??? Low back pain ??? Nausea Health Maintenance List Health Maintenance Topic Date Due ??? INFLUENZA VACCINE (SYSTEM ASSIGNED) 01/03/2015 ??? PAP Q1 YR NO INB MSG 02/23/2015 ??? TETANUS Q10 YR 12/03/2020 For diabetic patients with hyperlipidemia, only choose diabetes. Patient has the following on her problem list: NONE Composite cancer screening Chart review shows that this patient is due/due soon for the following Pap Smear PAP [facility] 09/24/2010 Past Surgical History Procedure Laterality Date ??? Colposcopy cervix, loop electrode biopsy, combined years ago, 8 years ago LEEP Is hysterectomy listed in surgical history? No Is mastectomy listed in surgical history? No Tobacco History History Smoking status ??? Never Smoker Smokeless tobacco ??? Never Used Summary: Patient is due/failing the following: PAP Action needed: Patient needs office visit for Physical with pap. Type of outreach: Sent [employer] message. Questions for provider review: None Please indicate office visit, lab, MTM, or nurse appt if needed. Indicate fasting or not fasting. Stalin Cabezas CMA Chart routed to Care Team . RVISOR MOTOR VEHICLE ASSEMBLY documented in this encounter Plan of Treatment Not on filedocumented as of this encounter Visit Diagnoses Not on filedocumented in this encounter Care Teams City Weighmaster Relationship Specialty Start Date End Date Félix Arteaga MD PCP - General 06/25/05 08/29/14 [facility] [address] [place] [address] documented as of this encounter
--- OUTSIDE RECORDS SUMMARY | 2022-02-09 01:02 | XMS_ITS | Encounter Summary ---
:1975 Author Organization [place] Address [address] [facility] [place] [address] Care Team Providers Name Role Phone Félix Arteaga MD Primary Care Provider + Reason for Visit Reason Comments Pharyngitis started today, sore throat, chills, fatigue Encounter Details Date Type Department Care Team Description 12/29/2013 Office Visit [facility] Penny Logan Acute phar yngitis [facility] [place] KARAN Prather PLASTIC TUBING INSULATION SUPERVISOR (Primary Dx) [address] [id number] [phone] Social History Tobacco Use Types Packs/Day Years [...] Sign Reading Time Taken Comments Blood Pressure 118/64 12/29/2013 3:53 PM CDT Pulse 86 12/29/2013 3:53 PM CDT Temperature 36.8 ??C (98.3 ??F) 12/29/2013 3:53 PM CDT Respiratory Rate 14 12/29/2013 3:53 PM CDT Oxygen Saturation 99% 12/29/2013 3:53 PM CDT Inhaled Oxygen Concentration - - Weight 63 kg (139 lb) 12/29/2013 3:53 PM CDT Height 162.6 cm (5' 4) 12/29/2013 3:53 PM CDT Body Mass Index 23.86 12/29/2013 3:53 PM CDT documented in this encounter Progress Notes Penny Logan, PLASTIC TUBING INSULATION SUPERVISOR - 12/29/2013 3:48 PM CDT SUBJECTIVE: Alyssa Aguillon is a 38 year old female who presents to clinic today for the following health issues: Pharyngitis ?? Duration: started today ?? Description (location/character/radiation): sore throat ?? Accompanying signs and symptoms: chills, fatigue ?? History (similar episodes/previous evaluation): daughter has sore throat ?? Sore throat, headache and fatigue since this morning. ?? Last winter had numerous episodes of pharyngitis. Problem list and histories reviewed & adjusted, [...] of No current outpatient prescriptions on file. Allergies Allergen Reactions ??? Compazine [Prochlorperazine] ROS: C: NEGATIVE for fever, chills, change in weight E/M: NEGATIVE for ear, mouth problems. See HPI R: NEGATIVE for cough or SOB CV: NEGATIVE for chest pain, palpitations or peripheral edema GI: Negative for nausea or vomiting. OBJECTIVE: BP 118/64 Pulse 86 Temp(Src) 98.3 ??F (36.8 ??C) (Oral) Resp 14 Ht 5' 4 (1.626 m) Wt 139 lb (63.05 kg) BMI 23.85 kg/m2 SpO2 99% Body mass index is 23.85 kg/(m^2). GENERAL: healthy, alert, well nourished, well hydrated, no distress HENT: ear canals- normal; TMs- normal; Nose- normal; Mouth- no ulcers, no lesions. Posterior pharynxwith erythema, no exudate NECK: no tenderness, no adenopathy, no asymmetry, no masses, no stiffness; thyroid- normal to palpation RESP: lungs clear to auscultation - no rales, no rhonchi, no wheezes CV: regular rates and rhythm, normal S1 S2, no S3 or S4 and no murmur, no click or rub ASSESSMENT/PLAN: Alyssa was seen today for pharyngitis. Diagnoses and associated orders for this visit: Acute pharyngitis: Rapid strep negative. - Strep, Rapid Screen - Beta strep group A culture - dexamethasone (DECADRON) 4 MG tablet; Take 1 tablet (4 mg) by mouth daily Follow up with Provider - as needed if symptoms worsen or do not improve. Penny Logan CNP [facility] documented in this encounter Nursing Aminah Hay CMA - 12/29/2013 3:59 PM CDT Chief Complaint Patient presents with ??? Pharyngitis started today, sore throat, chills, fatigue Initial BP 118/64 Pulse 86 Temp(Src) 98.3 ??F (36.8 ??C) (Oral) Resp 14 Ht 5' 4 (1.626 m) Wt 139 lb (63.05 kg) BMI 23.85 kg/m2 SpO2 99% Estimated body mass index is 23.85 kg/(m^2) as calculated from the following: Height as of this encounter: 5' 4 (1.626 m). Weight as of this encounter: 139 lb (63.05 kg). BP completed using cuff size: large [facility] Maintenance reviewed. Aminah Leavitt MA documented in this encounter Plan of Treatment Not on filedocumented as of this encounter Procedures Procedure Name Priority Date/Time Associated Diagnosis Comme nts RAPID STREP SCREEN Routine 12/29/2013 3:45 PM Acute Pharyngiti s Results for this THROAT SWAB CDT procedure are i n the results section. BETA HEMOLYTIC Routine 12/29/2013 3:45 PM Acute Pharyngitis Re sults for this STREP GROUP A CDT procedure are in CULTURE the results section. documented in this encounter Results Beta strep group A culture (12/29/2013 3:45 PM CDT) Component Value Ref Test Analysis Performed At [facility] gist Range Method Time Signature Specimen Throat [facility] Culture Micro No Beta BUTNER Streptococcus [facility] Micro Report FINAL 12/31/2013 [facility] Specimen Anatomical Collection Method Collection Time Receive d Time (Source) Location / / Volume Laterality Specimen from 12/29/2013 3:45 PM 12/30/19 14 4:05 throat CDT PM CDT (specimen) Penny Logan APRN PLASTIC TUBING INSULATION SUPERVISOR LAB - MICRO GENERAL ORDER ALICIA Performing Organization Address City/[facility]/ZIP Code Phon e Number [facility] [id number] [place] [address] Strep, Rapid Screen (12/29/2013 3:45 PM CDT) Component Value Ref Test Analysis Performed At [facility] gist Range Method Time Signature Specimen Throat [facility] Rapid Strep A NEGATIVE: No Group A strepto coccal antigen detected by immunoassay, await [facility]NER Screen culture report. [facility] Micro Report FINAL 12/29/2013 [facility] Specimen Anatomical Collection Method Collection Time Receive d Time (Source) Location / / Volume Laterality Specimen from 12/29/2013 3:45 PM 12/30/19 14 3:46 throat CDT PM CDT (specimen) Penny Logan APRN PLASTIC TUBING INSULATION SUPERVISOR LAB - MICRO GENERAL ORDER ALICIA Performing Organization Address City/[facility]/ZIP Code Phon e Number [facility] [id number] [place] [address] documented in this encounter Visit Diagnoses Diagnosis Acute pharyngitis - Primary documented in this encounter Care Teams Dragline Oiler Relationship Specialty Start Date End Date Félix Arteaga MD PCP - General 06/25/05 [facility]/29/[facility] [address] [place] [facility] [place] [address] documented as of this encounter
--- OUTSIDE RECORDS SUMMARY | 2022-02-09 01:02 | XMS_ITS | Encounter Summary ---
:1975 Author Organization [place] Address [address] [facility] [place] [address] Care Team Providers Name Role Phone Félix Arteaga MD Primary Care Provider + Reason for Referral Consultation - Closed Specialty Diagnoses / Procedures Referred By Contact Refer red To Contact Diagnoses Low back pain Bulge of lumbar disc without myelopathy Whitney Almaguer [facility] [id number] [place] [address] [place], [place] [address] [address] [place] [address] Phone: Referral ID Status Reason Start Date Expiration Date Visits Requ ested Visits Authorized [id number] Closed 09/08/2013 03/07/2014 1 1 Reason for Visit Reason Comments Results from MRI on back, would like to come up with tx plan for back pain Encounter Details Date Type Department Care Team Description 09/08/2013 Office Visit [facility] Whitney Almaguer ba ck pain (Primary Dx); [facility] [place] MD Bulge of lumbar disc without myelopathy [address] [facility] [id number] [place] [phone] Social History Tobacco Use Types Packs/Day Years [...] Sign Reading Time Taken Comments Blood Pressure 106/62 09/08/2013 2:56 PM CDT Pulse 76 09/08/2013 2:56 PM CDT Temperature 36.7 ??C (98 ??F) 09/08/2013 2:56 PM CDT Respiratory Rate 16 09/08/2013 2:56 PM CDT Oxygen Saturation 99% 09/08/2013 2:56 PM CDT Inhaled Oxygen Concentration - - Weight 66.1 kg (145 lb 11.2 oz) 09/08/2013 2:56 PM CDT Height 162.6 cm (5' 4) 09/08/2013 2:56 PM CDT Body Mass Index 25.01 09/08/2013 2:56 PM CDT documented in this encounter Patient Instructions Patient InstructionsFasnacWhitney long MD - 09/08/2013 3:32 PM CDT Images from the original note were not included. Back Safety: Basics of Good Posture Good posture protects you from injury. It also increases your comfort. Aim for good posture throughout the day. Check Your Posture The human body works best when it is properly aligned. To improve your standing posture, follow these steps: ?? Take a moment to close your eyes and feel your body. Then breathe deeply and relax your shoulders, hips, and knees. ?? Now, from the very top of your head, lift up just a bit. Think of a line linking your ears, shoulders, hips, and ankles. Adjust your body to follow the line. You may need to relax your hips and tuckyour buttocks under a bit. ?? Next, take a look at yourself in a mirror. Is one ear, shoulder, or hip higher than the other? They should be level. Check How You Sit When you sit properly, pressure on your back is reduced. Try these steps: ?? Sit so that the curve of your lower back fits easily against the chair. Keep your gaze level. ?? Support your feet. They should be flat on the floor or on a footrest. Your knees should be level with your hips. ?? Adjust the chair height as needed. Sit so your forearms are level with the work surface. Proper Posture Helps When your back is aligned, it???s more likely to stay safe throughout the day. ?? Standing in place. Rest one foot on a stool or low box to ease pressure on your lower back. Switch feet often. If you can, adjust the height of your work surface so your neck and shoulders aren???t under strain. ?? Driving. Sit close enough to the steering wheel to keep your knees slightly bent. For comfort, your knees should be level with your hips or just a bit lower. Sit as straight as you can. The curve ofyour lower back should be fully supported. ?? Walking. Stand tall and walk with your head up. Let your arms swing while you walk. This helps relax muscles. Wear shoes that fit and support your feet. If you will be standing or walking for a longtime, don???t wear high heels. ?? Sitting and sleeping. Choose your furniture with care. Make sure it???s not causing or increasingyour back pain. Chairs should allow for comfortable, correct sitting posture. Use pillows for added support if needed. Your bed should support your back???s natural curves without being too hard or toosoft. ?? [id number], [place] [address]. All rights reserved. This information is not intended as a substitute for professional medical care. Always follow your healthcare professional's instructions. Back Safety: Bending Bending can strain or even injure your back. Follow the tips below to move safely and protect your back as you perform everyday activities. Always face the object you're bending in front of. Bending Over ?? Keep your feet shoulder-width apart. ?? Move your whole body as one unit. ?? Bend at your hips and knees, not at your waist. ?? Flatten your stomach and tighten your leg muscles. ?? To keep your spine straight, let your buttocks move out behind you. Don???t try to tuck them under. ?? If you need to, place one hand on a sturdy object for support. Bend at your hips and knees instead of at your waist. Bending to the Floor ?? Lower yourself to one knee. If you can, rest one hand on a sturdy object to help lower yourself. ?? Rest one arm on your raised knee. ?? Don???t bend at the waist. ?? Do not hunch your back or neck to reach to the floor. Instead, bend more at your hips and knees to get closer. ?? [facility], [address] [place] [address]. All rights reserved. This information is not intended as a substitute for professional medical care. Always follow your healthcare professional's instructions. Back Safety: Getting Into and Out of Bed Safety Tip: After you stand up, wait a moment before walking to be sure you???re not dizzy. Good posture protects your back when you sit, stand, and walk. It is also important while getting into and out of bed. Follow the steps below to get out of bed. Reverse them to get into bed. Roll Onto Your Side 1. Roll Onto Your Side ?? Keep your knees together. ?? Flatten your stomach muscles to keep your back from arching. ?? Put your hands on the bed in front of you. Raise Your Body 2. Raise Your Body ?? Push your upper body off the bed as you swing your legs to the floor. ?? Keeping your back straight, move your whole body as one unit. Don???t bend or twist at the waist. ?? Let the weight of your legs help you move. Stand Up 3. Stand Up ?? Lean forward from your hip and roll onto the balls of your feet. ?? Flatten your stomach muscles to keep your back from arching. ?? Using your arm and leg muscles, push yourself to a standing position. ?? [facility], [address] [place] [address]. All rights reserved. This information is not intended as a substitute for professional medical care. Always follow your healthcare professional's instructions. Back Safety: Sitting Sitting can strain your back if you don???t do it right. Learn the right moves to protect your back. Sitting Down Follow these steps to sit down. Reverse them to get back up. ?? Make sure the chair is behind you. ?? Place one foot slightly behind the other. ?? Tighten your stomach muscles. Bend forward from the hips, keeping your back straight. ?? Hold the armrests or sides of the seat for support. ?? Bend your knees. Use your leg muscles to lower yourself onto the seat. ?? Scoot back in the seat until you are comfortable. Sitting Safely ?? Keep your feet flat. Don???t cross your legs. ?? A low footrest (no higher than 8 inches) may help. ?? A support behind your lower back or between your shoulder blades can help make you more comfortable. ?? When sitting for long periods, change your position from time to time. Also, get up every half hour and move around. ?? [phone] [facility], [address] [place] [address]. All rights reserved. This information is not intended as a substitute for professional medical care. Always follow your healthcare professional's instructions. documented in this encounter Progress Notes Whitney Almaguer MD - 09/08/2013 2:59 PM CDT SUBJECTIVE: Alyssa Aguillon is a 38 year old female who presents to clinic today for the following health issues: Discuss MRI results, and come up with treatment plan for back pain Reviewed results from [facility] and noted multi-level lumbar disc injury. Please see scanned record Unable to take the Percocet as ordered because she has small children Problem list and histories reviewed & adjusted, as indicated. Additional history: as documented Patient Active Problem List Diagnosis ??? CARDIOVASCULAR SCREENING; LDL GOAL LESS THAN 160 ??? Anemia ??? Ovarian cyst ??? Menorrhagia ??? Abnormal Pap smear ??? Acute low back pain with disc symptoms, duration less than 6 weeks Past Surgical History Procedure Laterality Date ??? [...] Outpatient Prescriptions Medication Sig Dispense Refill ??? gabapentin (NEURONTIN) 300 MG capsule Take 1 capsule (300 mg) by mouth 3 times daily 270 capsule1 ??? oxyCODONE-acetaminophen (PERCOCET) 5-325 MG per tablet [...] by mouth every 6 hours as needed. ROS: C: NEGATIVE for fever or chills R: NEGATIVE for significant cough or SOB CV: NEGATIVE for chest pain, palpitations or peripheral edema MUSCULOSKELETAL: NEGATIVE for edema and joint warmth OBJECTIVE: BP 106/62 Pulse 76 Temp(Src) 98 ??F (36.7 ??C) (Oral) Resp 16 Ht 5' 4 (1.626 m) Wt 145 lb11.2 oz (66.089 kg) BMI 25 kg/m2 SpO2 99% LMP 08/14/2013 Body mass index is 25 kg/(m^2). GENERAL: alert, well nourished, well hydrated, in severe distress NECK: no tenderness, no adenopathy, no asymmetry, no masses, no stiffness; thyroid- normal to palpation MS: extremities- no gross deformities noted, no edema Lumber/Thoracic Spine Exam: Tender: lumbar spinous processes, left para lumbar muscles, right para lumbar muscles Non-tender: left parathoracic muscles, right parathoracic muscles Range of Motion: left lateral lumbar bending decreased, painful, right lateral lumbar bending decreased, painful, left lateral lumbar rotation decreased, painful, right lateral lumbar rotation decreased, painful Strength: unable to heel walk, unable to toe walk ASSESSMENT/PLAN: (194.2) Low back pain (primary encounter diagnosis) Comment: Discussed the implications of the major injury and need for prompt orthopedic care Plan: ORTHO SANIPRACTIC PHYSICIAN REFERRAL, gabapentin (NEURONTIN) 300 MG capsule (722.10) Bulge of lumbar disc without myelopathy Comment: Severe pain, ordered Neurontin to give some relief without causing drowsiness Plan: ORTHO SANIPRACTIC PHYSICIAN REFERRAL, gabapentin (NEURONTIN) 300 MG capsule Whitney Almaguer MD [facility] documented in this encounter Nursing Notes Stalin Cabezas CMA - 09/08/2013 2:58 PM CDT Chief Complaint Patient presents with ??? Results from MRI on back, would like to come up with tx plan for back pain Initial BP 106/62 Pulse 76 Temp(Src) 98 ??F (36.7 ??C) (Oral) Resp 16 Ht 5' 4 (1.626 m) Wt 145 lb 11.2 oz (66.089 kg) BMI 25 kg/m2 SpO2 99% LMP 08/14/2013 Estimated body mass index is 25 kg/(m^2) as calculated from the following: Height as of this encounter: 5' 4 (1.626 m). Weight as of this encounter: 145 lb 11.2 oz (66.089 kg). BP completed using cuff size regular Right Arm Health Maintenance reviewed - Yes: (pt is aware of her HM) Tobacco Verified: Yes Family History Updated: Yes MyChart Offered: Yes-active Immunizations Up to Date: Yes Stalin Cabezas CMA documented in this encounter Plan of Treatment Pending Results Name Type Priority Associated Diagnoses Date/Ti me ORTHO SANIPRACTIC PHYSICIAN REFERRAL Referral Routine Low felicia k pain 09/24/2013 Bulge of lumbar disc without myelopathy documented as of this encounter Visit Diagnoses Diagnosis Low back pain - Primary Lumbago Bulge of lumbar disc without myelopathy Displacement of lumbar intervertebral di sc without myelopathy documented in this encounter Care Teams Operational Risk Manager Relationship Specialty Start Date End Date Félix Arteaga MD PCP - General 06/25/05 08/29/14 [facility] [employer] [facility] [address] [place] [address] documented as of this encounter
--- OUTSIDE RECORDS SUMMARY | 2022-02-09 01:02 | XMS_ITS | Encounter Summary ---
:1975 Author Organization [place] Address [address] [facility] [place] [address] Care Team Providers Name Role Phone Félix Arteaga MD Primary Care Provider + Encounter Details Date Type Department Care Team Description 09/07/2013 External Order [facility] Whitney Almaguer Results Clinic [place] MD Clara [address] [place] [id number] [phone] Social History Tobacco Use Types Packs/Day Years [...] Name Priority Date/Time Associated Diagnosis Comme nts MRI IMAGING - HIM SCAN Routine 09/07/2013 documented in this encounter Results MRI Imaging - HIM Scan (09/07/2013) Anatomical Region Laterality Modality Other Narrative This result has an attachment that is no t available. Wihtney Almaguer MD IMG MRI ORDERABLES documented in this encounter Visit Diagnoses Not on filedocumented in this encounter Care Teams Exercise Instructor Relationship Specialty Start Date End Date Félix Arteaga MD PCP - General 06/25/05 08/29/14 [facility] [address] [place] [address] documented as of this encounter
--- OUTSIDE RECORDS SUMMARY | 2022-02-09 01:02 | XMS_ITS | Encounter Summary ---
:1975 Author Organization [facility] Address [address] [facility] [place] [address] Care Team Providers Name Role Phone Félix Arteaga MD Primary Care Provider + Reason for Visit Reason Onset Date Comments Panel Management 10/28/2013 Encounter Details Date Type Department Care Team Description 10/28/2013 Telephone [facility] Félix Arteaga phil Management [facility] Redd Baxter MD [address] [place] [phone] [address] [phone] [place], [place] [address] (Wo rk) Social History [...] this encounter Miscellaneous Notes Telephone Encounter - Teresa Castro CMA - 10/28/2013 4:25 PM CDT Panel Management Review Date of last visit with a [facility] provider: Rosina on 09/08/13. Date of next visit with a [facility] provider: None. Problem List Patient Active Problem List Diagnosis ??? CARDIOVASCULAR SCREENING; LDL GOAL LESS THAN 160 ??? Anemia ??? Ovarian cyst ??? Menorrhagia ??? Abnormal Pap smear ??? Acute low back pain with disc symptoms, duration less than 6 weeks ??? Bulge of lumbar disc without myelopathy ??? Low back pain Health Maintenance List Health Maintenance Topic Date Due ??? PAP Q1 YR NO INB MSG 09/25/2011 ??? INFLUENZA VACCINE (SYSTEM ASSIGNED) 02/02/2014 ??? TETANUS Q10 YR 12/03/2020 For diabetic patients with hyperlipidemia, only choose diabetes. Patient has the following on her problem list: Composite cancer screening Chart review shows that [...] office visit for pap. Type of outreach: Sent letter. Questions for provider review: None Please indicate office visit, lab, MTM, or nurse appt if needed. Indicate fasting or not fasting. Teresa Castro CMA documented in this encounter Plan of Treatment Not on filedocumented as of this encounter Visit Diagnoses Not on filedocumented in this encounter Care Teams Cellophane Tester Relationship Specialty Start Date End Date Félix Arteaga MD PCP - General 06/25/05 08/29/14 [facility] [address] [place] [address] documented as of this encounter
--- OUTSIDE RECORDS SUMMARY | 2022-02-09 01:02 | XMS_ITS | Encounter Summary ---
:1975 Author Organization [place] Address [address] [place] [address] Care Team Providers Name Role Phone Félix Arteaga MD Primary Care Provider + Reason for Visit Reason Comments Pharyngitis Abdominal Pain Encounter Details Date Type Department Care Team Description 2013 - [facility] Hernandez Rodriguez Acut e pharyngitis (Primary Dx); 08/20/2013 [facility] [address] [place], [place] [address] [facility] [id number] [facility] [address] [place] [address] (Wo rk) Social History Tobacco Use Types [...] Sign Reading Time Taken Comments Blood Pressure 119/47 2013 11:45 PM CDT Pulse 78 2013 10:26 PM CDT Temperature 36.4 ??C (97.6 ??F) 2013 10:26 PM CDT Respiratory Rate 16 2013 10:26 PM CDT Oxygen Saturation 99% 2013 11:48 PM CDT Inhaled Oxygen Concentration - - Weight - - Height - - Body Mass Index - - documented in this encounter Discharge Instructions Discharge InstructionsHernandez Rodriguez MD - 08/20/2013 12:03 AM CDT Discharge Instructions Sore Throat You were seen today for a sore throat. Most sore throats are caused by a virus. Antibiotics do not help with viral infections, but you can fight off the virus on your own. In this case, your sore throat would be treated with medications for your pain and fever. Strep throat is a kind of sore throat caused by Group A streptococcus bacteria. This type of sore throat is treated with antibiotics. If you had a rapid test done today for strep throat and it did not show infection, we always do a culture. If the culture shows you have strep throat, we will call you and get you a prescription for antibiotics. Return to the Emergency Department if: ??? If you have difficulty breathing ??? If you are drooling because you are unable to swallow ??? You become dehydrated due to difficulty drinking. Signs of dehydration include weakness, dry mouth, and urinating less than 3 times per day ??? If you develop swelling of the neck or tongue ??? If you develop a high fever with either headache or stiff neck Treatment: ??? Pain relief -- Non-prescription pain medications, such as acetaminophen (Tylenol??) or ibuprofen(Motrin??, Advil??) are usually recommended for pain. Do not use a medicine that you are allergic to, or if your doctor has told you not to use it. If you have been given a narcotic (such as codeine, hydrocodone, or oxycodone) do not drive for four hours after you have taken it. If the narcotic contains acetaminophen (Tylenol??), do not take other acetaminophen (Tylenol??) with it. All narcotics willcause constipation, so eat a high fiber diet. ??? If you have been placed on antibiotics, watch for signs of allergic reaction. These include rash, lip swelling, difficulty breathing, wheezing, and dizziness. If you develop any of these symptoms, stop the antibiotic immediately and go to an emergency room or urgent care for evaluation. Remember that you can always come back to the Emergency Department if you are not able to see your regular doctor in the amount of time listed above, if you get any new symptoms, or if there is anything that worries you. Discharge Instructions Abdominal Pain Abdominal pain can be caused by many things. Your evaluation today does not show the exact cause foryour pain. Your doctor today has decided that it is unlikely your pain is due to a life threatening problem, or a problem requiring surgery or hospital admission. Sometimes those problems cannot be found right away, so it is very important that you follow up as directed. Sometimes only the changes which occur over time allow the cause of your pain to be found. Return to the Emergency Department for a recheck in 8-12 hours if your pain continues. If your pain gets worse, changes in location, or feels different, return to the Emergency Department right away. ADULTS: Return to the Emergency Department right away if: ??? You get an oral temperature above 102oF or as directed by your doctor. ??? You have blood in your stools (bright red or black, tarry stools). ??? You keep throwing up or can???t drink liquids. ??? You see blood when you throw up. ??? You can???t have a bowel movement or you can???t pass gas. ??? Your stomach gets bloated or bigger. ??? Your skin or the whites of your eyes look yellow. ??? You faint. ??? You have bloody, frequent or painful urination. ??? You have new symptoms or anything that worries you. CHILDREN: Return to the Emergency Department right away if your child has any of the above-listed symptoms or the following: ??? Pushes your hand away or screams/cries when his/her belly is touched. ??? You notice your child is very fussy or weak. ??? Your child is very tired and is too tired to eat or drink. ??? Your child is dehydrated. Signs of dehydration can be: o Your has had no wet diapers in 4-5 hours. o Your older child has not passed urine in 6-8 hours. o Your infant or child starts to have dry mouth and lips, or no saliva or tears. WOMEN: Return to the Emergency Department right away if you have any of the above-listed symptoms or the following: ??? You have bleeding, leaking fluid or passing tissue from the vagina ??? You have worse pain or cramping, or pain in your shoulder or back. ??? You have vomiting that will not stop. ??? You have painful or bloody urination. ??? You have a temperature of 100oF or more. ??? Your baby is not moving as much as usual. ??? You faint. ??? You get a bad headache with or without eye problems and abdominal pain. ??? You have a convulsion or seizure. ??? You have unusual discharge from your vagina and abdominal pain. Abdominal pain is pretty common during . Your pain may or may not be related to your . You should follow-up closely with your OB doctor so they can evaluate you and your baby. Until you follow-up with your regular doctor, do the following: ??? Avoid sex and do not put anything in your vagina. ??? Drink clear fluids. ??? Only take medications approved by your doctor. MORE INFORMATION: Appendicitis: A possible cause of abdominal pain in any person who still has their appendix is acuteappendicitis. Appendicitis is often hard to diagnose. Testing does not always rule out early appendicitis or other causes of abdominal pain. Close follow-up with your doctor and re-evaluations may be needed to figure out the reason for your abdominal pain. Follow-up: It is very important that you make an appointment with your clinic and go to the appointment. If you do not follow-up with your primary doctor, it may result in missing an important development which could result in permanent injury or disability and/or lasting pain. If there is any problemkeeping your appointment, call your doctor or return to the Emergency Department. Medications: Take your medications as directed by your doctor today. Before using [id number] medications, ask your doctor and make sure to take the medications as directed. If you have any questions about medications, ask your doctor. Diet: Resume your normal diet as much as possible, but do not eat fried, fatty or spicy foods while you have pain. Do not drink alcohol or have caffeine. Do not smoke tobacco. Remember that you can always come back to the Emergency Department if you are not able to see your normal doctor in the amount of time listed above, if you get any new symptoms, or if there is anythingthat worries you. documented in this encounter Medications at Time of Discharge Medication Sig Dispensed Refills Start Date End Date acetaminophen (TYLENOL) Take 1-2 tablets by 0 12/29/2013 500 MG tablet mouth every 6 hours as needed. docusate sodium 100 MG Take 100 mg by 30 tablet 0 4 09/06/2013 tablet mouth daily QTE-Eprz-XdSetd-MgHydr-Si Take 5-10 mLs by 237 mL 1 [...] mouth daily (with breakfast). fluticasone (FLONASE) 50 [employer] 1-2 sprays 1 Package 0 05/0709/06/2013 MCG/ACT nasal spray into both nostrils daily. HYDROcodone-acetaminophen Take 1-2 tablets by 15 tablet 0 0 08/05/2013 09/06/2013 (NORCO) 5-325 MG per mouth every 4 hours tablet as needed for moderate to severe pain ibuprofen (ADVIL,MOTRIN) Take 3 tablets by 20 tablet 0 /07/201212/29/2013 200 MG tablet mouth every 8 hours [...] tabletIndications: Acute times daily pharyngitis, Strep throat senna-docusate Take 1-2 tablets by 20 tablet 1 08/05/2013 0 09/06/2013 (EDI-COLACE) 8.6-50 MG mouth 2 times daily per tablet as needed for constipation traMADol (ULTRAM) 50 MG Take 1-2 tablets 15 tablet 0 201309/06/2013 tablet (50-100 mg) by mouth every 6 hours as needed for pain documented as of this encounter ED Notes Hernandez Rodriguez MD - 2013 10:36 PM CDT History Chief Complaint: Pharyngitis; and Abdominal Pain HPI Alyssa Aguillon is a 38 year old female with a history of recurrent strep pharyngitis and constipation who presents with pharyngitis and abdominal pain. She was seen here for similar symptoms at which time she was diagnosed with an ovarian cyst and constipated. The patient states that she has been experiencing intermittent abdominal pain around her umbilicus. She rates her pain as 5/10 in severity.She could not walk or stand secondary to pain at its worst. The pain lasted for about 1 hour. She had ache since that time. This prompted her to report to the ED today for evaluation. Here the patient describes her pain as a cramping discomfort. She additionally notes a sore throat that she rates as 9/ 10 in severity. The patient has had strep throat 4 times this year. She took Sudafed with some relief earlier. The patient mentions that she has had difficulty swallowing secondary to pain. She notes that she experienced one episode of diarrhea as well. The patient denies any fevers, chills, nausea, v omiting, melena, hematochezia, urinary symptoms or any other concerns. Allergies: Compazine Medications: Ibuprofen Tylenol [place] Colace Tramadol Medrol Dosepack Veetid Lo/Ovral Flonase Ferrous Sulfate Past Medical History: Streptococcal sore throat Menorrhagia Anemia Ovarian Cysts Past Surgical History: Colposcopy Appendicitis Family History: History reviewed. No pertinent family history. 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 HENT: Positive for sore throat. Gastrointestinal: Positive for abdominal pain and diarrhea. Negative for nausea, vomiting and blood in stool. Genitourinary: Negative for dysuria, urgency, hematuria and flank pain. All other systems reviewed and are negative. Physical Exam First Vitals: BP: 141/97 mmHg Pulse: 78 Heart Rate: 78 Temp: 97.6 ??F (36.4 ??C) Resp: 16 SpO2: 99 % Physical Exam General: Patient is cooperative, mild apparent distress. HENT: Oropharynx shows moist oral mucosa with no exudate; mild erythema posterior pharynx. Eyes: Conjunctivae normal and EOM are normal. Right eye exhibits no discharge. Left eye exhibits no discharge. Neck: Normal range of motion. Neck supple. Cardiovascular: Normal rate, regular rhythm and normal heart sounds. Pulmonary/Chest: Effort normal and breath sounds normal. No respiratory distress. Patient has no wheezes. Abdominal: Soft. Patient exhibits no distension and no mass. There is no tenderness, including periumbilical region, where pain was earlier. There is no guarding. No hernia. Musculoskeletal: Normal range of motion. Patient exhibits no edema and no tenderness. Neurological: Patient is alert and oriented. Coordination normal. Skin: Skin is warm and dry. No rash noted. Psychiatric: Patient has a normal mood and affect. Patient's behavior is normal. Judgment and thought content normal. Emergency Department Course Imaging: XR Abdomen: Non obstructive gas pattern. Moderate stool. Read per Dr. Rodriguez Laboratory: Rapid Strep: Negative Beta Strep group A culture: Pending UA: Few Bacteria, Squamous Epithelial 6 (H), Mucous Present o/w Negative Interventions: Ibuprofen 800 mg PO Tramadol 50 mg PO Decadron 10 mg PO Emergency Department Course: 22:43- Nursing notes and vitals reviewed. I performed an exam of the patient as documented above. IV inserted and blood drawn. The patient was placed on continuous cardiac monitoring and pulse oximetry. The patient was sent for a x-ray of the abdomen while in the emergency department, findings above. The above interventions were administered with noted improvement in the patient's condition on re-check. Findings and plan explained to the Patient and significant other. Patient discharged home with instructions regarding supportive care, medications, and reasons to return. The importance of close follow-up was reviewed. The patient was prescribed Tramadol. Impression & Plan Medical Decision Making: Afebrile 38 y.o. Female with a current chief complaint of sore throat. Onset was earlier today, after an episode of periumbilical abdominal pain; that was intense, cramp-like in quality, but has improved since the hour episode early this evening. She reynaga had no fever, vomiting, diarrhea, or urinary symptoms. She has been seen on a couple of occasions earlier this year for abdominal pain, and had negative CT abdomen/pelvis twice, the latter demonstrated apparent constipation. She notes that she has been having some ongoing constipation. Her examination is unremarkable, including a normal posterior pharynx, and benign abdominal examination. Testing is limited to a negative rapid strep, negative UA, and x-ray abdomen demonstrated no sign of obstruction, and moderate stool. Suspicion for a serious bacterial infection or significant intra-abdominal inflammatory process is low; no repeat CT imaging is felt necessary; this was explained to her and she is comfortable with symptomatic treatment and early follow-up. She was medicated with ibuprofen, decadron, and ultram here. I've prescribed small supplyof ultram, recommend otc ibuprofen and laxative, and f/u clinic if no resolving. I suspect she has aviral pharyngitis, and her resolved abdominal pain to be symptomatic constipation. Abdominal pain d/c instructions, with precautions, were provided. Diagnosis: 1. Acute pharyngitis 2. Abdominal pain, resolved 3. Possible symptomatic constipation Vidal Gutierrez 2013 [facility] EMERGENCY [facility]PART[facility] I, Vidal Gutierrez, am serving as a scribe at 10:43 PM on 2013 to document services personally performed by Dr. Rodriguez, based on my observations and the provider's statements to me. Hernandez Rodriguez MD 08/20/13 0334 Yoly Harrington RN - 2013 10:30 PM CDT Patient states she has been having intermittent abdominal pain, today had cramping and discomfort around umbilicus. Pain currently at a 5/10, denies n/v or fever. Also c/o throat pain that began today,pain currently a 9/10. Has had strep 4 times this year. Took sudafed with some relief per patient. documented in this encounter Plan of Treatment Not on filedocumented as of this encounter Procedures Procedure Name Priority Date/Time Associated Diagnosis Comme nts XR ABDOMEN 2 VIEWS STAT 2013 11:40 Resul ts for this PM CDT procedure are i n the results section. ROUTINE UA WITH STAT 2013 11:15 Results for this MICROSCOPIC PM CDT procedure are i n the results section. RAPID STREP SCREEN STAT 2013 10:35 Resul ts for this THROAT SWAB PM CDT procedure are i n the results section. BETA HEMOLYTIC STREP Routine 2013 10:35 Acute pharyngiti s Results for this GROUP A CULTURE PM CDT procedure ar e in the results section. documented in this encounter Results XR Abdomen 2 Views (2013 11:40 PM CDT) Anatomical Region Laterality Modality Abdomen/Pelvis Computed Radiography Specimen (Source) Anatomical Location Collection Method / Collectio n Time Received Time / Laterality Volume Impressions 08/20/2013 7:03 AM CDT IMPRESSION: Negative. WOODROW MEAD MD Narrative 08/20/2013 7:03 AM CDT XR ABDOMEN 2 VW 08/20/2013 7:02 AM HISTORY: abdominal pain, ? constipation, ? Procedure Note Woodrow Mead MD - 08/20/2013Formatt ing of this note might be different from the original. XR ABDOMEN 2 VW 08/20/2013 7:02 AM HISTORY: abdominal pain, ? constipation, IMPRESSION IMPRESSION: Negative. WOODROW MEAD MD Hernandez Rodriguez MD IMG DIAGNOSTIC IMAGING ORDER ALICIA (ABNORMAL) Routine UA with microscopic (2013 11:15 PM CDT) [facility] Method Time Signature Color Urine Yellow [facility] Appearance Urine Clear [facility] Glucose Urine Negative NEG mg/dL [facility] Bilirubin Urine Negative NEG [facility] Ketones Urine Negative NEG mg/dL [facility] Specific [place] 1.012 1.003 - [place] Urine 1.035 [facility] Blood Urine Negative NEG [facility] pH Urine 6.5 5.0 - 7.0 [place] pH [facility] Protein Albumin Negative NEG mg/dL [facility] Urobilinogen 2.0 0.0 - 2.0 [place] mg/dL mg/dL [facility] Nitrite Urine Negative NEG [facility] Leukocyte Negative NEG [place] Esterase Urine [facility] Source Midstream [place] Urine [facility] WBC Urine 2 0 - 2 [facility] RBC Urine 1 0 - 2 [facility] Bacteria Urine Few (A) NEG /HPF [facility] Squamous 6 (H) 0 - 1 [place] Epithelial /HPF /[facility] Transitional Epi <1 0 - 1 [facility] Mucous Urine Present (A) NEG /LPF [facility] Specimen Anatomical Collection Method Collection Time Receive d Time (Source) Location / / Volume Laterality Urine specimen URINE SPECIMEN 2013 11:15 014 (specimen) OBTAINED BY CLEAN PM CDT 11:30 PM C DT CATCH PROCEDURE / Unknown Hernandez Rodriguez MD LAB - URINE ORDERABLES Performing Organization Address City/State/ZIP Code Phon e Number [place] [id number] [facility] Beta strep group A culture (2013 10:35 PM CDT) Component Value Ref Test Analysis Performed At [facility] Range Method Time Signature Specimen Throat [facility] Culture Micro No Beta [facility] Streptococcus MICROBIOLOGY isolated Micro Report FINAL 08/22/2013 [facility] Status MICROBIOLOGY Specimen Anatomical Collection Method Collection Time Receive d Time (Source) Location / / Volume Laterality 2013 10:35 2013 PM CDT 11:05 PM CDT Hernandez Rodriguez MD LAB - MICRO GENERAL ORDERABL ES Performing Organization Address City/State/ZIP Code Phon e Number [address] [address] [facility] MICROBIOLOGY Rapid strep screen (2013 10:35 PM CDT) Component Value Ref Test Analysis Performed At Patholo gist Range Method Time Signature Specimen Throat [facility] Rapid Strep A NEGATIVE: No Group A strepto coccal antigen detected by immunoassay, await [place] Screen culture report. [facility] Micro Report FINAL 2013 [facility] Specimen Anatomical Collection Method Collection Time Receive d Time (Source) Location / / Volume Laterality Specimen from 2013 10:35 2013 throat PM CDT 10:48 PM CDT (specimen) Vidal Ochoa MD LAB - MICRO GENERAL ORDERABL ES Performing Organization Address City/State/ZIP Code Phon e Number M [facility] [address] [place], [place] [address] [facility] documented in this encounter Visit Diagnoses Diagnosis Acute pharyngitis - Primary Abdominal pain Abdominal pain, unspecified site documented in this encounter Administered Medications Inactive Administered Medications - up to 3 most recent administrations Medication Order MAR Action Action Date Dose Rate Site dexamethasone (DECADRON) tablet 10 Given 2013 11:56 PM CDT 10 mg mg 10 mg, Oral, ONCE, On Fri08/20/13 at 0000, For 1 dose ibuprofen (ADVIL,MOTRIN) tablet 800 mg Given 2013 11:08 PM CDT 800 mg 800 mg, Oral, ONCE, On [place] 08/19/13 at 2300, For 1 dose traMADol (ULTRAM) tablet 50 mg Given 2013 11:56 PM CDT 50 mg 50 mg, Oral, ONCE, On 08/20/13 at 0000, For 1 dose documented in this encounter Active and Recently Administered Medications Times are shown in CDT. 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
--- OUTSIDE RECORDS SUMMARY | 2022-02-09 01:02 | XMS_ITS | Encounter Summary ---
:1975 Author Organization [place] Address [address] [place] [address] Care Team Providers Name Role Phone Félix Arteaga MD Primary Care Provider + Reason for Visit Reason Comments Abdominal Pain Encounter Details Date Type Department Care Team Description [facility]2014 [facility], other specified site (Primary Dx); [facility] Emergency Dep karoline Mukherjee MD Bloating; [address] [facility] EMERGENCY PHYSICIANS [facility] [phone] [address] [address] [place] [address] (Wo rk) Social History Tobacco Use Types [...] Sign Reading Time Taken Comments Blood Pressure 138/89 02/27/2014 8:47 PM CDT Pulse 80 02/27/2014 8:47 PM CDT Temperature 36.7 ??C (98.1 ??F) 02/27/2014 6:03 PM CDT Respiratory Rate 16 02/27/2014 8:47 PM CDT Oxygen Saturation 99% 02/27/2014 8:47 PM CDT Inhaled Oxygen Concentration - - Weight 66.7 kg (147 lb) 02/27/2014 6:03 PM CDT Height 162.6 cm (5' 4) 02/27/2014 6:03 PM CDT Body Mass Index 25.23 02/27/2014 6:03 PM CDT documented in this encounter Discharge Instructions Discharge InstructionsFélix Buck MD - 02/27/2014 8:20 PM CDT Discharge Instructions Abdominal Pain Abdominal pain can [...] passed urine in 6-8 hours. o Your or child starts to have dry mouth and lips, or no saliva or tears. WOMEN: Return to the Emergency Department right away if you have any of the above-listed symptoms or the following: ??? You have bleeding, leaking fluid or passing tissue from the vagina. ??? You have worse pain or cramping, [...] directed by your doctor today. Before using auym-rda-jrlvtka medications, ask your doctor and make sure [...] have shown that probiotics help prevent diarrhea and other intestine problems (including C. diff [...] contain Tylenol?? (acetaminophen), including Vicodin??, Tylenol #3??, [place]??, Lortab??, and Percocet??. You should not take [...] Sig Dispensed Refills Start Date End Date ondansetron (ZOFRAN ODT) 4 Take 1 tablet (4 10 tablet 0 03/02/2014 MG disintegrating tablet mg) by mouth every 8 hours as needed for nausea docusate sodium 100 MG Take 100 mg by 20 tablet 0 4 08/31/2014 tablet mouth daily hyoscyamine Take 1 tablet (125 12 tablet 0 02/27/201408/31 (ANASPAZ,LEVSIN) 0.125 MG mcg) by mouth every tablet 6 hours as needed for cramping documented as of this encounter ED Notes Félix Buck MD - 02/27/2014 6:25 PM CDT History Chief Complaint: Nausea HPI Alyssa Aguillon is a 38 year old female who presents with nausea. The patient states that for the past three weeks she has been nauseated all throughout the day. She explains that these symptoms started about 2 days after her last period which was fairly normal for her. She notes that she then developed tender breasts and a week ago she began to feel bloated. She notes that she has slight abdominalpain but the main concern she has is that she feels bloated like she is 9 months . She denies any constipation that is abnormal for her. She notes feeling more fatigued than usual and has been urinating more frequently. She sometimes has moments when she feels flushed and then chilled. She denies any fevers or dysuria. Of note, the patient was seen on the for similar symptoms. Allergies: Compazine Medications: The patient is currently on no regular medications. Past Medical History: Menorrhagia Anemia Past Surgical History: Colposcopy cervix Family / Social History: No past pertinent family history. Marital Status: Single Social History: Negative for tobacco use. Positive for rare alcohol use. Review of Systems Constitutional: Positive for chills and fatigue. Negative for fever. Gastrointestinal: Positive for nausea and abdominal pain. Negative for constipation. Positive for feeling bloated. Genitourinary: Positive for frequency. Negative for dysuria. All other systems reviewed and are negative. Physical Exam First Vitals: BP: 160/105 mmHg Pulse: 81 Temp: 98.1 ??F (36.7 ??C) Resp: 18 Height: 162.6 cm (5' 4) Weight: 66.679 kg (147 lb) SpO2: 99 % Physical Exam General: The patient is alert, in no respiratory distress. HENT: Mucous membranes moist. Cardiovascular: Regular rate and rhythm. Good pulses in all four extremities. Normal capillary refill and skin turgor. Respiratory: Lungs are clear. No nasal flaring. No retractions. No wheezing, no crackles. Gastrointestinal: Abdomen soft. No guarding, no rebound. No palpable hernias. Mild fullness of abdomen. Nausea with palpation. No fluid wave. Musculoskeletal: No gross deformity. Skin: No rashes or petechiae. Neurologic: The patient is alert and oriented x3. GCS 15. No testable cranial nerve deficit. Followscommands with clear and appropriate speech. Gives appropriate answers. Good strength in all extremities. No gross neurologic deficit. Gross sensation intact. Pupils are round and reactive. No meningismus. Lymphatic: No cervical adenopathy. No lower extremity swelling. Psychiatric: The patient is non-tearful. Emergency Department Course Imaging: Radiographic findings were communicated with the patient who voiced understanding of the findings. US abdomen complete: Negative abdominal ultrasound. Per radiology preliminary report. Laboratory: UA with microscopic: urine blood trace (A), bacteria few (A), squamous epithelial 6 (H), mucous urine present (A), o/w negative Urine culture: Pending HCG qualitative: Negative CBC: WBC 7.3, HGB 9.9 (L), PLT 258, o/w WNL CMP: calcium 8.4 (L), albumin 3.8 (L), o/w WNL (Creat 0.66) Lipase: 156 Interventions: Zofran 4 mg IV x2 NS 1L IV Emergency Department Course: Nursing notes and vitals reviewed. I performed an exam of the patient as documented above. IV inserted and blood drawn. This was sent for laboratory testing, findings above. Urine sample was obtained and sent for testing, results above. The patient was sent for a US abdomen while in the emergency department, findings above. 8:15 PM: I reassessed and discussed results with the patient at this time. I personally reviewed the laboratory results with the Patient and answered all related questions prior to discharge. Findings and plan explained to the Patient. Patient discharged home with instructions regarding supportive care, medications, and reasons to return. The importance of close follow-up was reviewed. The patient was prescribed Hyoscyamine and docusate sodium. Impression & Plan Medical Decision Making: The patient reports that she did have a period earlier this month that was shorter than usual. I wasoriginally suspicious for , though she had a negative test because she complainedof breast tenderness, nausea, and some symptoms that could be related to early . Her blood test however was negative. Hormonal problems such as early ovarian failure could be a causeas well but her main symptom was bloating of her abdomen. With the patient???s history of constipation, I did feel that an intestinal problem could be a culprit behind this. I ran studies here, including an ultrasound that was reassuring. There are no signs of a gallbladder problem. Her labs are otherwise reassuring with stable, lower red blood cell count. She does not have a UTI and I started the patient on medication Hyoscyamine and she will follow up with her primary care doctor for further outpatient work up. I discussed seeing GI to evaluate for chronic intestinal issues and I started her on Colace. She was discharged in good condition, aware that further outpatient work up was needed. I do not think that there is currently a surgical condition. Diagnosis: 1. (789.09) Abdominal pain, other specified site (primary encounter diagnosis). 2. (787.3) Bloating. 3. (564.00) Constipation. I, Lorin Schmidt, am serving as a scribe on 02/27/2014 at 6:25 PM to personally document services performed by Dr. Buck based on my observations and the provider's statements to me. Lorin Schmidt 02/27/2014 [facility] EMERGENCY DEPARTMENT Félix Buck MD 02/28/14 0000 Anita Bullock RN - 02/27/2014 6:08 PM CDT Pt c/o 3 week hx of abdominal pain, nausea, tender breasts. C/o feeling fatigued, has been chilled since yesterday. Was seen at clinic last week, negative test and negative UA. documented in this encounter Plan of Treatment Not on filedocumented as of this encounter Procedures Procedure Name Priority Date/Time Associated Comments Diagnosis US ABDOMEN COMPLETE STAT 02/27/2014 7:32 PM Re sults for this CDT procedure are i n the results section. ROUTINE UA WITH STAT 02/27/2014 7:30 PM Result s for this MICROSCOPIC CDT procedure are i n the results section. URINE CULTURE Routine 02/27/2014 7:30 PM Abdominal Pain, Resul ts for this CDT Other Specified procedure ar e in Site the results section. CBC WITH PLATELETS & STAT 02/27/2014 6:29 PM R esults for this DIFFERENTIAL CDT procedure are i n the results section. LIPASE STAT 02/27/2014 6:29 PM Results f or this CDT procedure are i n the results section. HCG QUALITATIVE STAT 02/27/2014 6:29 PM Result s for this CDT procedure are i n the results section. COMPREHENSIVE STAT 02/27/2014 6:29 PM Results for this METABOLIC PANEL CDT procedure ar e in the results section. documented in this encounter Results US Abdomen Complete (02/27/2014 7:32 PM CDT) Anatomical Region Laterality Modality Abdomen/Pelvis Ultrasound Specimen (Source) Anatomical Location Collection Method / Collectio n Time Received Time / Laterality Volume Impressions 02/27/2014 8:20 PM CDT IMPRESSION: ??Negative abdominal ultrasound. DONNA SZYMANSKI MD Narrative 02/27/2014 8:20 PM CDT ULTRASOUND ABDOMEN COMPLETE 02/27/2014 7:32 PM HISTORY: Abdominal pain. COMPARISON: None. FINDINGS: ??Liver is normal in echogenic ity without focal solid lesions. ? Gallbladder is contracted but otherwise unremarkable without cholelithiasis. ?Extrahep atic bile duct is normal in diameter. Pancreas is normal where visua lized. Spleen is normal. Kidneys are normal in size. There is no hydronephrosis. Visualized abdominal aorta and IVC are nonaneurysma l. Procedure Note Donna Szymanski MD - 02/27/2014Fo rmatting of this note might be different from the original. ULTRASOUND ABDOMEN COMPLETE 02/27/2014 7 :32 PM HISTORY: Abdominal pain. COMPARISON: None. FINDINGS: Liver is normal in echogenicit y without focal solid lesions. Gallbladder is contracted but o therwise unremarkable without cholelithiasis. Extrahepatic jose ramon e duct is normal in diameter. Pancreas is normal where visua lized. Spleen is normal. Kidneys are normal in size. There is no hydronephrosis. Visualized abdominal aorta and IVC are nonaneurysma l. IMPRESSION IMPRESSION: Negative abdominal ultrasoun d. DONNA SZYMANSKI MD Félix Buck MD IMG US ORDERABLES Urine culture (02/27/2014 7:30 PM CDT) Component Value Ref Test Analysis Performed At [facility] Range Method Time Signature Specimen Midstream Urine [facility] LAB Special Specimen [facility] Requests received in MICROBIOLOGY preservative Culture Micro No growth [facility] MICROBIOLOGY Micro Report FINAL [facility] Status 02/28/2014 MICROBIOLOGY Specimen Anatomical Collection Method Collection Time Receive d Time (Source) Location / / Volume Laterality Urine specimen URINE SPECIMEN 02/27/2014 7:30 PM 02/27 7:41 (specimen) OBTAINED BY CLEAN CDT PM CDT CATCH PROCEDURE / Unknown Félix Buck MD LAB - MICRO GENERAL ORDERABL ES Performing Organization Address City/State/ZIP Code Phon e Number [facility] [address] [place] [address] [facility] MICROBIOLOGY (ABNORMAL) UA with Microscopic (02/27/2014 7:30 PM CDT) [facility] Method Time Signature Color Urine Straw [facility] Appearance Urine Clear [facility] Glucose Urine Negative NEG mg/dL [facility] Bilirubin Urine Negative NEG [facility] Ketones Urine Negative NEG mg/dL [facility] Specific [place] 1.004 1.003 - [place] Urine 1.035 [facility] Blood Urine Trace (A) NEG [facility] pH Urine 6.0 5.0 - 7.0 [place] pH [facility] Protein Albumin Negative NEG mg/dL [place] Urine [facility] Urobilinogen Normal 0.0 - 2.0 [place] mg/dL mg/dL [facility] Nitrite Urine Negative NEG [facility] Leukocyte Negative NEG [place] Esterase Urine [facility] Source Midstream [place] Urine [facility] WBC Urine <1 0 - 2 [place] /[facility] RBC Urine 2 0 - 2 [place] LAB Bacteria Urine Few (A) NEG /HPF [facility] Squamous 6 (H) 0 - 1 [place] Epithelial /HPF /HPF [facility] LAB Transitional Epi <1 0 - 1 [facility] Mucous Urine Present (A) NEG /LPF [facility] Specimen Anatomical Collection Method Collection Time Receive d Time (Source) Location / / Volume Laterality Urine specimen URINE SPECIMEN 02/27/2014 7:30 PM 02/27 7:40 (specimen) OBTAINED BY CLEAN CDT PM CDT CATCH PROCEDURE / Unknown Félix Buck MD LAB - URINE ORDERABLES Performing Organization Address City/State/ZIP Code Phon e Number [facility] [address], [place] [address] [facility] HCG QUALitative (blood) (02/27/2014 6:29 PM CDT) [facility] Method Time Signature HCG Qualitative Negative NEG [place] Serum [facility] Specimen Anatomical Collection Method Collection Time Receive d Time (Source) Location / / Volume Laterality Blood specimen 02/27/2014 6:29 PM 10/26/2 014 6:44 (specimen) CDT PM CDT Félix Buck MD LAB - BLOOD ORDERABLES Performing Organization Address [facility]/[address], [place] [phone] [place] [address] LAB Lipase (02/27/2014 6:29 PM CDT) athologist Signature Lipase 156 73 - 393 [facility] LAB Comment: Effective 12/01/2013, the reference range for this assay has changed to reflect new instrumentation/methodology. Specimen Anatomical Collection Method Collection Time Receive d Time (Source) Location / / Volume Laterality Blood specimen 02/27/2014 6:29 PM 014 6:44 (specimen) CDT PM CDT Félix Buck MD LAB - BLOOD ORDERABLES Performing Organization Address [facility]/[address] [phone] [place] [address] LAB (ABNORMAL) Comprehensive metabolic panel (02/27/2014 6:29 PM CDT) athologist Signature Sodium 138 133 - 144 [place] mmol/L [facility] Potassium 3.4 3.4 - 5.3 [place] mmol/L [facility] Chloride 108 94 - 109 [place] mmol/L [facility] Carbon Dioxide 26 20 - 32 [place] mmol/L [facility] Anion Gap 4 3 - 14 [place] mmol/L [facility] Glucose 75 70 - 99 [place] mg/dL [facility] Comment: Effective 12/01/2013, the reference range for this assay has changed to reflect new instrumentation/methodology. Urea Nitrogen 11 7 - 30 mg/dL [facility] LAB Comment: Effective 12/01/2013, the reference range for this assay has changed to reflect new instrumentation/methodology. Creatinine 0.66 0.52 - 1.04 mg/dL [place] [facility] GFR Estimate >90 >60 mL/min/1.7m2 [place] R IDGES Non GFR Calc HOSPITAL LAB GFR Estimate If Black >90 >60 mL/min/1.7m2 F [facility] GFR Calc HOSP ITAL LAB Calcium 8.4 (L) 8.5 - 10.1 mg/dL [facility] Comment: Effective 12/01/2013, the reference range for this assay has changed to reflect new instrumentation/methodology. Bilirubin Total 0.6 0.2 - 1.3 mg/dL [facility] LAB Albumin 3.8 (L) 3.9 - 5.1 g/dL [facility] Protein Total 7.7 6.8 - 8.8 g/dL [facility] LAB Alkaline Phosphatase 61 40 - 150 U/L [facility] LAB ALT 20 0 - 50 U/L [facility] AST 24 0 - 45 U/L [facility] LAB Specimen Anatomical Collection Method Collection Time Receive d Time (Source) Location / / Volume Laterality Blood specimen 02/27/2014 6:29 PM 014 6:44 (specimen) CDT PM CDT Félix Buck MD LAB - BLOOD ORDERABLES Performing Organization Address City/State/ZIP Code Phon e Number [facility] [address] [address] [facility] LAB (ABNORMAL) CBC with platelets differential (02/27/2014 6:29 PM CDT) [facility] gist Method Time Signature WBC 7.3 4.0 - [place] 11.0 [facility] 10e9/L [facility] LAB RBC Count 3.96 3.8 - 5.2 [place] 10e12/L [facility] LAB Hemoglobin 9.9 (L) 11.7 - [place] 15.7 g/dL [facility] LAB Hematocrit 32.0 (L) 35.0 - [place] 47.0 % [facility] MCV 81 78 - 100 [facility] LAB MCH 25.0 (L) 26.5 - [place] 33.0 pg [facility] LAB MCHC 30.9 (L) 31.5 - [place] 36.5 g/dL [facility] LAB RDW 15.8 (H) 10.0 - [place] 15.0 % [facility] Platelet Count 258 150 - [address] LAB Diff Method Automated [facility] LAB % Neutrophils 64.6 % [facility] % Lymphocytes 28.1 % [facility] % Monocytes 5.5 % [facility] % Eosinophils 1.2 % [facility] % Basophils 0.3 % [facility] % Immature 0.3 % [place] Granulocytes [facility] Absolute 4.7 1.6 - 8.3 [place] [facility]il [facility] Absolute 2.1 0.8 - 5.3 [place] Lymphocytes [address] LAB Absolute 0.4 0.0 - 1.[address] [place] Monocytes [address] LAB Absolute 0.1 0.0 - 0.7 [place] Eosinophils [address] [place] [address] LAB Absolute 0.0 0.0 - 0.2 [place] Basophils [address] [place] [address] LAB Abs Immature 0.0 0 - 0.4 [place] Granulocytes [address] [place] [address] LAB Specimen Anatomical Collection Method Collection Time Receive d Time (Source) Location / / Volume Laterality Blood specimen 02/27/2014 6:29 PM 014 6:44 (specimen) CDT PM CDT Félix Buck MD LAB - BLOOD ORDERABLES Performing Organization Address City/State/ZIP Code Phon e Number [facility] [address], [place] [address] [facility] documented in this encounter Visit Diagnoses Diagnosis Abdominal pain, other specified site - P rimary Bloating Flatulence, eructation, and gas pain Constipation Unspecified constipation documented in this encounter Administered Medications Inactive Administered Medications - up to 3 most recent administrations Medication Order MAR Action Action Date Dose Rate Site ondansetron (ZOFRAN) 2 MG/ML Given 02/27/2014 7:36 PM CDT 4 mg injection Starting on 02/27/14 at 1938, For 1 dose, KATHY CHACON: cabinet override ondansetron (ZOFRAN) injection 4 mg Given 02/27/2014 6:27 PM CDT 4 mg 4 mg, Intravenous, ONCE, Administer over 2-5 Minutes, On 02/27/14 at 1825, For 1 dose sodium chloride 0.9 % BOLUS New Bag 02/27/2014 7:37 PM CDT 1,000 m Ls 1000 mL/hr 1,000 mL Intravenous, 1,000 mL, ONCE, at 1,000 mL/hr, Administer over 1 Hours, On 02/27/14 at 1834, For 1 dose documented in this encounter Active and Recently Administered Medications Times are shown in CDT. Scheduled Medication Order 02/25/2014 02/26/2014 02/27/2014 ondansetron (ZOFRAN) injection 4 mg (COMPLETED) 1826 (Given - Provider: Josiane Conde) 4 mg, Intravenous, ONCE, Administer over 2-5 Minutes, On 02/27/14 at 1825, For 1 dose sodium chloride 0.9 % BOLUS 1,000 mL (COMPLETED) 1936 (New Bag - Provider: Kathy Chacon, DELLA)2034 (Stopped - Provider: Kathy Chacon, RN) Intravenous, 1,000 mL, ONCE, at 1,000 mL /hr, Administer over 1 Hours, On 02/27/14 at 1834, For 1 dose No Frequency Medication Order 02/25/2014 02/26/2014 02/27/2014 ondansetron (ZOFRAN) 2 MG/ML injection (COMPLETED) 1935 (Given - Provider: Kathy Chacon, DELLA) Starting on 02/27/14 at 1938, For 1 dose, KATHY CHACON: cabinet override documented in this encounter Care Teams Hand Rigger Relationship Specialty Start Date End Date Félix Arteaga MD PCP - General 06/25/05 08/29/14 [facility] [address] [place] [address] documented as of this encounter
--- OUTSIDE RECORDS SUMMARY | 2022-02-09 01:02 | XMS_ITS | Encounter Summary ---
:1975 Author Organization Edgar Address [address] [place] [address] Care Team Providers Name Role Phone Félix Arteaga MD Primary Care Provider + Reason for Visit Reason Comments Abdominal Pain Encounter Details Date Type Department Care Team Description 08/05/2013 Emergency [facility] Preeti nAdino Ab dominal pain, right upper quadrant (Primary Dx); [facility] Other and unspecified ovarian cyst; Dept SKIN REJUVENATION Constipation [address] [facility] [place], [place] [address] [address] [id number] [facility] [phone] [place], [place] [address] (Wo rk) Social History Tobacco Use Types [...] Sign Reading Time Taken Comments Blood Pressure 116/78 08/05/2013 10:10 PM CDT Pulse - - Temperature 36.9 ??C (98.5 ??F) 08/05/2013 7:12 PM CDT Respiratory Rate 20 08/05/2013 7:12 PM CDT Oxygen Saturation 100% 08/05/2013 10:10 PM CDT Inhaled Oxygen Concentration - - Weight 55.3 kg (122 lb) 08/05/2013 7:12 PM CDT Height 162.6 cm (5' 4) 08/05/2013 7:12 PM CDT Body Mass Index 20.94 08/05/2013 7:12 PM CDT documented in this encounter Discharge Instructions Discharge InstructionsPreeti Andino MD - 08/05/2013 10:16 PM CDT Discharge Instructions Abdominal Pain Abdominal [...] 102oF or as directed by your doctor. You have blood in your stools (bright red or black, tarry stools). You keep throwing up or can???t drink liquids. You see blood when you throw up. You can???t have a bowel movement or you can???t pass gas. Your stomach gets bloated or bigger. Your skin or the whites of your eyes look yellow. You faint. You have bloody, frequent or painful urination. You have new symptoms or anything that [...] fluid or passing tissue from the vagina You have worse pain or cramping, or pain in your shoulder or back. You have vomiting that will not stop. You have painful or bloody urination. You have a temperature of 100oF or more. Your baby is not moving as much as usual. You faint. You get a bad headache with or without eye problems and abdominal pain. You have a convulsion or seizure. You have unusual discharge from your vagina and abdominal pain. Abdominal pain is pretty common during . Your pain may or may not be related to your . You should follow-up closely with your OB doctor so they can evaluate you and your baby. Until you follow-up with your regular doctor, do the following: Avoid sex and do not put anything in your vagina. Drink clear fluids. Only take medications approved by your doctor. [...] directed by your doctor today. Before using dnon-rek-ziaxdow medications, ask your doctor and make sure [...] or if there is anythingthat worries you. Home Back SP fr pl RU CH Ovarian Cyst The ovary is a small organ located on each side of the uterus. During each menstrual cycle a tiny egg sac forms in the ovary. If the egg is released but does not occur, this sac usually dissolves. Sometimes, the sac may fill with fluid. It then enlarges into a painful cyst. Usually the cyst will rupture or shrink on its own. In either case, the pain gradually goes away over the next 1-3 days. If the cyst does not shrink or rupture, it may cause continued pain. Home Care: ?? Rest in bed and avoid heavy exertion until you are feeling better. ?? Heat to the lower abdomen usually helps (heating pad or hot packs -- a small towel soaked in hot water). ?? You may use acetaminophen (Tylenol) or ibuprofen (Motrin, Advil) to control pain, unless another pain medicine was prescribed. [NOTE: If you have chronic liver or kidney disease or ever had a stomach ulcer or GI bleeding, talk with your doctor before using these medicines.] Follow Up: See your doctor within the next 2-3 days if your pain doesn???t improve. Otherwise, follow up with your doctor after your next period or as directed by our staff. Get Prompt Medical Attention if any of the following occur: ?? Pain worsens or fails to respond to the above measures ?? Fever of 100.4??F (38??C) or higher, or as directed by your healthcare provider ?? Heavy vaginal bleeding (soaking one pad an hour for three hours) ?? You feel weak or dizzy ?? Fainting ?? Passage of a pink or eid tissue with menstrual bleeding ?? [phone] [facility], [address] [place] [address]. All rights reserved. This information is not intended as a substitute for professional medical care. Always follow your healthcare professional's instructions. documented in this encounter Medications at Time of Discharge Medication Sig Dispensed Refills Start Date End Date acetaminophen (TYLENOL) Take 1-2 tablets by 0 12/29/2013 500 MG tablet mouth every 6 hours as needed. docusate sodium 100 MG Take 100 mg by 30 tablet 0 4 09/06/2013 tablet mouth daily KRQ-Qqqf-JnAlby-MgHydr-Si Take 5-10 mLs by 237 mL 1 [...] mouth daily (with breakfast). fluticasone (FLONASE) 50 [place] 1-2 sprays 1 Package 0 05/0709/06/2013 MCG/ACT nasal spray into both nostrils daily. HYDROcodone-acetaminophen Take 1-2 tablets by 15 tablet 0 0 08/05/2013 09/06/2013 (NORCO) 5-325 MG per mouth every 4 hours tablet as needed for moderate to severe pain ibuprofen (ADVIL,MOTRIN) Take 3 tablets by 20 tablet 0 01/07/201212/29/2013 200 MG tablet mouth every 8 hours [...] by 20 tablet 1 08/05/2013 0 09/06/2013 (MARICARMEN-COLACE) 8.6-50 MG mouth 2 times daily per tablet as needed for constipation traMADol (ULTRAM) 50 MG Take 1-2 tablets 15 tablet 0 201308/20/2013 tablet (50-100 mg) by mouth every 6 hours as needed for pain documented as of this encounter ED Notes Lisseth Sanchez - 08/05/2013 10:26 PM CDT BRANDIE'bonifacio IV and yassine KOHLI. RN notified. Preeti Andino MD - 08/05/2013 7:20 PM CDT History Chief Complaint: Abdominal Pain HPI Alyssa Aguillon is a 37 year old female with history of ovarian cyst, menorrhagia, and previous abnormal pap smear who presents to the ED for evaluation of abdominal pain. According to the patient, she has been experiencing persistent abdominal pain for the last two days. She describes the pain as amoderate to severe sharp pain in the right upper quadrant that worsens with touching the area. She has had associated chills, nausea, and general malaise. She states that she experienced similar pain one month ago which lasted for one week and resolved with intervention or evaluation by her primary care physician. She did not take any medication at home for symptoms prior to presentation. Her last normal bowel movement was this morning. The patient denies any fevers, chills, vomiting, or radiation of pain. She has not had any vaginal, urinary, or bowel symptoms. She reports no recent trauma, changein diet or medication. Allergies: Compazine (Prochlorperazine) Medications: Acetaminophen Ferrous Sulfate Past Medical History: Ovarian cyst Abnormal Pap smear Menorrhagia, premenopausal Anemia Past Surgical History: Appendectomy Colposcopy cervix, loop electrode biopsy, combined (LEEP) (2005) Family History: The patient has no relevant family history. Social History: Patient denies tobacco use. She uses alcohol, rarely. Marital Status: Single [1] Review of Systems Constitutional: Positive for chills. Negative for fever. Gastrointestinal: Positive for nausea and abdominal pain. Negative for vomiting, diarrhea, constipation and blood in stool. Genitourinary: Negative. All other systems reviewed and are negative. Physical Exam First Vitals: BP: 132/88 mmHg Heart Rate: 85 Temp: 98.5 ??F (36.9 ??C) Resp: 20 Height: 162.6 cm (5' 4) Weight: 55.339 kg (122 lb) SpO2: 100 % Physical Exam Constitutional: The patient is oriented to person, place, and time. Alert and cooperative. HENT: Right Ear: External ear normal. Left Ear: External ear normal. Nose: Nose normal. Mouth/Throat: Uvula is midline, oropharynx is clear and moist and mucous membranes are normal. No posterior oropharyngeal edema or erythema. Eyes: Conjunctivae, EOM and lids are normal. Pupils are equal, round, and reactive to light. Neck: Trachea normal. Normal range of motion. Neck supple. Cardiovascular: Normal rate, regular rhythm, normal heart sounds, and intact distal pulses. Pulmonary/Chest: Effort normal and breath sounds equal bilaterally. No crackles or wheezing. Abdominal: Soft. Bowel sounds are normal. Right upper quadrant tenderness with guarding. No rebound. Musculoskeletal: Normal range of motion. No extremity tenderness or edema. Mild right flank pain. Lymphadenopathy: No cervical adenopathy. Neurological: Alert and oriented. Normal strength. No cranial nerve deficit or sensory deficit. Skin: Skin is dry. No rash noted. Psychiatric: Normal mood and affect. Emergency Department Course Imaging: Radiographic findings were communicated with the patient who voiced understanding of the findings. US Abdomen Limited: Negative, no gallstones are identified per radiology. CT Abdomen Pelvis with Contrast: 1. Probable collapsing 2 cm right ovarian cyst. Mild to moderate peritoneal fluid is noted within the cul-de-sac which may be physiologic. 2. Prominent fecal debris in the colon. Gastric distention with fluid and debris is also noted. However, no evidence of bowel obstruction or free peritoneal air. No other CT evidence of an acute inflammatory process in the abdomen or pelvis per radiology. Laboratory: CBC: HGB 10.7, HCT 31.9 (L), o/w WNL (WBC 6.4, PLT 233) CMP: Albumin 3.7 (L), o/w WNL (Creat 0.60) HCG qualitative: Negative Lipase: 106 (wnl) UA: Trace blood (A), pH 7.5 (H), Moderate Leukocyte Esterase (A), WBC/HPF 3 (H), Few Bacteria (A), Squamous Epithelial/HPF 7 (H), Mucous Present (A), o/w WNL ED Interventions: Sodium Chloride, 0.9% 1.0 L IV Bolus x2 Ondansetron 4 mg IV Injection Ketorolac, 30 mg IV injection Morphine, 4 mg, IV injection x2 Emergency Department Course: Nursing notes and vitals reviewed. 19:25 I performed an exam of the patient as documented above. A peripheral IV was established. 21:00 Patient was feeling improved. Now has increased pain after ultrasound. 21:50 Pain improved. Discussed results 22:15 Rechecked patient. She is feeling improved. Findings and plan explained to the Patient. Patient discharged home with instructions regarding supportive care, medications, and reasons to return. The importance of close follow-up was reviewed. The patient was prescribed [place] and Senna-Docusate. Impression & Plan Medical Decision Making: This is a 37 year old female who presents with right upper abdominal pain that has been present overthe last two days. She did have similar pain several weeks ago that resolved on its own. On exam, she does have right upper quadrant tenderness. Due to the upper abdominal pain, initially an ultrasoundwas done which showed no evidence of gallstones or abnormality. Blood work was negative. Due to the continued pain, a CT was done which did show a collapsing right ovarian cyst with mild to moderate fluid then some prominent fecal debris within the colon and gastric distension without any evidence of obstruction. The pain improved with interventions in the ED. The fluid from the cysts could be causing her discomfort or it could be related to the gastric distension/constipation. We will start her on [place] for pain along with Maricarmen-Colace. She may also use Miralax. She should follow up with her doctoron Friday if not improving, and return with any increasing pain, vomiting, or fever. There is no evidence of cholecystitis, diverticulitis, or bowel obstruction. Diagnosis: 1. Abdominal pain, right upper quadrant (789.01) 2. Other and unspecified ovarian cyst (620.2) 3. Constipation (564.00) IFlorinda, am serving as a scribe at 7:25 PM on 08/05/2013 to document services personally performed by Dr. Andino based on my observations and the provider's statements to me. Florinda Gardner 08/05/2013 [facility] Preeti Andino MD 08/05/13 [id number] Flavia Cunningham RN - 08/05/2013 7:18 PM CDT ABCs intact. A&Ox4. Abdominal pain in RUQ that started yesterday. Pt reports having similar painone month ago. Not previously seen by provider for this pain. documented in this encounter Miscellaneous Notes Initial Assessments - Lawrence, Non-Provider - 08/06/2013 8:51 AM CDT documented in this encounter Plan of Treatment Not on filedocumented as of this encounter Procedures Procedure Name Priority Date/Time Associated Comments Diagnosis CT ABDOMEN PELVIS W STAT 08/05/2013 9:53 PM Re sults for this CONTRAST CDT procedure are i n the results section. US ABDOMEN LIMITED STAT 08/05/2013 9:03 PM Res ults for this CDT procedure are i n the results section. HCG QUALITATIVE URINE STAT 08/05/2013 8:20 PM Results for this CDT procedure are i n the results section. ROUTINE UA WITH STAT 08/05/2013 8:20 PM Result s for this MICROSCOPIC CDT procedure are i n the results section. CBC WITH PLATELETS & STAT 08/05/2013 7:40 PM R esults for this DIFFERENTIAL CDT procedure are i n the results section. LIPASE STAT 08/05/2013 7:40 PM Results f or this CDT procedure are i n the results section. COMPREHENSIVE STAT 08/05/2013 7:40 PM Results for this METABOLIC PANEL CDT procedure ar e in the results section. documented in this encounter Results CT Abdomen Pelvis w Contrast (08/05/2013 9:53 PM CDT) Anatomical Region Laterality Modality Abdomen/Pelvis, SUBRAD CT BODY, UMP CT ABDOMEN PELVIS Computed Tomography Specimen (Source) Anatomical Location Collection Method / Collectio n Time Received Time / Laterality Volume Impressions 08/05/2013 10:56 PM CDT IMPRESSION: 1. Probable collapsing 2 cm right ovaria n cyst. Mild to moderate peritoneal fluid is noted within the cul -de-sac which may be physiologic. 2. Prominent fecal debris in the colon. Gastric distention with fluid and debris is also noted. However, no ev idence of bowel obstruction or free peritoneal air. No other CT evidenc e of an acute inflammatory process in the abdomen or pelvis. MAYRA MERCER MD Narrative 08/05/2013 10:[address] ABDOMEN AND PELVIS WITH CONTRAST ?08/05/2013 ?9:53 PM HISTORY: Right upper pain. CONTRAST DOSE: ??59 mL Isovue-370. FINDINGS: ??The stomach is markedly dist ended with fluid and debris. A several millimeter calcification is note d within the prieto hepatis, unchanged from 06/09/2013. The liver and g allbladder appear within normal limits. The spleen, kidneys, adre nal glands, and pancreas appear within normal limits. Prominent f ecal debris is noted within the colon. Sutures in the right lower qu adrant may be related to previous appendectomy. These were presen t on 06/09/2013 as well. No evidence of bowel obstruction. Within th e pelvis, there is mild to moderate free peritoneal fluid within th e cul-de-sac. The uterus appears to be retroverted. 2.0 cm right adnexal cyst likely represents a collapsing right ovarian cyst. Pelvic contents otherwise appear within normal limits. Procedure Note Tani Mercer MD - 08/05/2013Formatt ing of this note might be different from the original. CT ABDOMEN AND PELVIS WITH CONTRAST 2013 9:53 PM HISTORY: Right upper pain. CONTRAST DOSE: 59 mL Isovue-370. FINDINGS: The stomach is markedly disten ded with fluid and debris. A several millimeter calcification is note d within the prieto hepatis, unchanged from 06/09/2013. The liver and g allbladder appear within normal limits. The spleen, kidneys, adre nal glands, and pancreas appear within normal limits. Prominent f ecal debris is noted within the colon. Sutures in the right lower qu adrant may be related to previous appendectomy. These were presen t on 06/09/2013 as well. No evidence of bowel obstruction. Within th e pelvis, there is mild to moderate free peritoneal fluid within th e cul-de-sac. The uterus appears to be retroverted. 2.0 cm right adnexal cyst likely represents a collapsing right ovarian cyst. Pelvic contents otherwise appear within normal limits. IMPRESSION IMPRESSION: 1. Probable collapsing 2 cm right ovaria n cyst. Mild to moderate peritoneal fluid is noted within the cul -de-sac which may be physiologic. 2. Prominent fecal debris in the colon. Gastric distention with fluid and debris is also noted. However, no ev idence of bowel obstruction or free peritoneal air. No other CT evidenc e of an acute inflammatory process in the abdomen or pelvis. MAYRA MERCER MD Preeti Andino MD IMG CT ORDERABLES US Abdomen Limited (08/05/2013 9:03 PM CDT) Anatomical Region Laterality Modality Abdomen/Pelvis Ultrasound Specimen (Source) Anatomical Location Collection Method / Collectio n Time Received Time / Laterality Volume Impressions 08/05/2013 9:51 PM CDT IMPRESSION: ??Negative, no gallstones are identified. YAHIR SMART MD Narrative 08/05/2013 9:51 PM CDT US ABDOMEN LIMITED ??08/05/2013 9:03 PM HISTORY: ??RUQ pain, COMPARISON: None. FINDINGS: Gallbladder: The gallbladder is contract ed. It is otherwise normal with no cholelithiasis, no wall thickeni ng, and no focal tenderness. Bile ducts: ??CHD is normal diameter. ?? No intrahepatic biliary dilatation. Liver: ??Normal. Pancreas: ??Normal. Right kidney: ??Normal. ? Procedure Note Greg Smart MD - 08/05/2013For matting of this note might be different from the original. US ABDOMEN LIMITED 08/05/2013 9:03 PM HISTORY: RUQ pain, COMPARISON: None. FINDINGS: Gallbladder: The gallbladder is contract ed. It is otherwise normal with no cholelithiasis, no wall thickeni ng, and no focal tenderness. Bile ducts: CHD is normal diameter. No i ntrahepatic biliary dilatation. Liver: Normal. Pancreas: Normal. Right kidney: Normal. IMPRESSION IMPRESSION: Negative, no gallstones are identified. YAHIR SMART MD Preeti Andino MD IM US ORDERABLES HCG qualitative urine (08/05/2013 8:20 PM CDT) P athologist Signature HCG Qual Urine Negative NEG [facility] Specimen Anatomical Collection Method Collection Time Receive d Time (Source) Location / / Volume Laterality Urine specimen URINE SPECIMEN 08/05/2013 8:20 PM 08/05 8:33 (specimen) OBTAINED BY CLEAN CDT PM CDT CATCH PROCEDURE / Unknown Preeti Andino MD LAB - URINE ORDERABLES Performing Organization Address City/State/ZIP Code Phon e Number [place] [facility] [address] [place], [place] [address] [facility] (ABNORMAL) UA with Microscopic (08/05/2013 8:20 PM CDT) [facility] Method Time Signature Color Urine Yellow [facility] Appearance Urine Slightly [place] Cloudy [facility] Glucose Urine Negative NEG mg/dL [facility] Bilirubin Urine Negative NEG [facility] Ketones Urine Negative NEG mg/dL [facility] Specific [place] 1.013 1.003 - [place] Urine 1.035 [facility] Blood Urine Trace (A) NEG [facility] pH Urine 7.5 (H) 5.0 - 7.0 [place] pH [facility] Protein Albumin Negative NEG mg/dL [facility] Urobilinogen Normal 0.0 - 2.0 [place] mg/dL mg/dL [facility] Nitrite Urine Negative NEG [facility] Leukocyte Moderate (A) NEG [place] Esterase Urine [facility] Source Midstream [facility] WBC Urine 3 (H) 0 - [address] [facility] RBC Urine 1 0 - 2 [facility] Bacteria Urine Few (A) NEG /HPF [facility] Squamous 7 (H) 0 - 1 [place] Epithelial /HPF /HPF [facility] Mucous Urine Present (A) NEG /LPF [facility] Specimen Anatomical Collection Method Collection Time Receive d Time (Source) Location / / Volume Laterality Urine specimen URINE SPECIMEN 08/05/2013 8:20 PM 08/05 8:33 (specimen) OBTAINED BY CLEAN CDT PM CDT CATCH PROCEDURE / Unknown Preeti Andino MD LAB - URINE ORDERABLES Performing Organization Address City/[facility] Phon e Number [place] [facility] [address], [place] [address] [facility] Lipase (08/05/2013 7:40 PM CDT) P athologist Signature Lipase 106 20 - 250 [facility] U/L [facility] Specimen Anatomical Collection Method Collection Time Receive d Time (Source) Location / / Volume Laterality Blood specimen 08/05/2013 7:40 PM 014 7:47 (specimen) CDT PM CDT Preeti Andino MD LAB - BLOOD ORDERABLES Performing Organization Address City/State/ZIP Code Phon e Number M [facility] [address] [place] [id number] [facility] (ABNORMAL) Comprehensive metabolic panel (08/05/2013 7:40 PM CDT) Analysis Performed At Patho logist Time Signature Sodium 141 133 - 144 [place] mmol/L [facility] Potassium 3.7 3.4 - 5.3 [place] mmol/L [facility] Chloride 106 94 - 109 [place] mmol/L [facility] Carbon Dioxide 24 20 - 32 [place] mmol/L [facility] Anion Gap 11 6 - 17 [place] mmol/L [facility] Glucose 82 60 - 99 [place] mg/dL [facility] Urea Nitrogen 10 5 - 24 [place] mg/dL [facility] Creatinine 0.60 0.52 - [facility] 1.04 mg/dL [facility] GFR Estimate >90 >60 [place] mL/min/1.[address] LAB GFR Estimate If >90 >60 [place] Black mL/min/1.[address] LAB Calcium 8.6 8.5 - 10.4 [place] mg/dL [facility] Bilirubin Total 0.7 0.2 - 1.3 [place] mg/dL [facility] Albumin 3.7 (L) 3.9 - 5.1 [place] g/dL [facility] Protein Total 7.5 6.8 - 8.8 [place] g/dL [facility] Alkaline 58 40 - 150 [place] Phosphatase U/L [facility] ALT 18 0 - 50 U/L [facility] AST 30 0 - 45 U/L [facility] Specimen Anatomical Collection Method Collection Time Receive d Time (Source) Location / / Volume Laterality Blood specimen 08/05/2013 7:40 PM 014 7:47 (specimen) CDT PM CDT Preeti Andino MD LAB - BLOOD ORDERABLES Performing Organization Address City/State/ZIP Code Phon e Number M [facility] [address] [place], [place] [address] [facility] (ABNORMAL) CBC with platelets differential (08/05/2013 7:40 PM CDT) [facility] gist Method Time Signature WBC 6.4 4.0 - [place] 11.0 [facility] 10e9/L [facility] RBC Count 3.90 3.8 - 5.2 [place] 10e12/L [facility] Hemoglobin 10.7 (L) 11.7 - [place] 15.7 g/dL [facility] Hematocrit 31.9 (L) 35.0 - [place] 47.0 % [facility] MCV 82 78 - 100 [place] fl [facility] MCH 27.4 26.5 - [place] 33.0 pg [facility] MCHC 33.5 31.5 - [place] 36.5 g/dL [facility] RDW 14.8 10.0 - [place] 15.0 % [facility] Platelet Count 233 150 - [address] LAB Diff Method Automated [facility] % Neutrophils 61.8 % [facility] % Lymphocytes 30.3 % [facility] % Monocytes 6.7 % [facility] % Eosinophils 0.5 % [facility] % Basophils 0.5 % [facility] % Immature 0.2 % [place] Granulocytes [facility] Absolute 4.0 1.6 - 8.3 [place] Neutrophil 10e9/L [facility] Absolute 2.0 0.8 - 5.3 [place] Lymphocytes 10e9/L [facility] Absolute 0.4 0.0 - 1.3 [place] Monocytes 10e9/L [facility] Absolute 0.0 0.0 - 0.7 [place] Eosinophils 10e9/L [facility] Absolute 0.0 0.0 - 0.2 [place] Basophils 10e9/L [facility] Abs Immature 0.0 0 - 0.4 [place] Granulocytes 10e9/L [facility] Specimen Anatomical Collection Method Collection Time Receive d Time (Source) Location / / Volume Laterality Blood specimen 08/05/2013 7:40 PM 014 7:47 (specimen) CDT PM CDT Preeti Andino MD LAB - BLOOD ORDERABLES Performing Organization Address City/State/ZIP Code Phon e Number M [facility] [address] [place], [place] [address] [facility] documented in this encounter Visit Diagnoses Diagnosis Abdominal pain, right upper quadrant - P rimary Other and unspecified ovarian cyst Constipation Unspecified constipation documented in this encounter Administered Medications Inactive Administered Medications - up to 3 most recent administrations Medication Order MAR Action Action Date Dose Rate Site 0.9 % sodium chloride IV New Bag 08/05/2013 9:19 PM CDT 1,000 mLs 125 mL/hr solution at 125 mL/hr, Intravenous, CONTINUOUS, Administer after the bolus., Starting on [place] 08/05/13 at 1930, Until Fri08/06/13 at 0032 iopamidol (ISOVUE-370) 76% solution 500 mL Given 08/05/2013 9:49 PM CDT 59 mLs 500 mL, Intravenous, ONCE, On [place] 08/05/13 at 2145, For 1 dose ketorolac (TORADOL) injection 30 mg Given 08/05/2013 7:37 PM CDT 30 mg 30 mg, Intravenous, ONCE, On [place] 08/05/13 at 1930, For 1 dose, Do not give within 6 hours of Ibuprofen. morphine (PF) injection 4 mg Given 08/05/2013 9:56 PM CDT 4 mg 4 mg, Intravenous, EVERY 15 MIN PRN, moderate to severe pain, severe pain, breakthrough pain, Starting on [place] 08/05/13 at 2102, For 3 doses Given 08/05/2013 9:17 PM CDT 4 mg ondansetron (ZOFRAN) injection 4 mg Given 08/05/2013 10:02 PM CDT 4 mg 4 mg, Intravenous, EVERY 30 MIN PRN, nausea, vomiting, Administer over 2-5 Minutes, Starting on [place] 08/05/13 at 1927, For 3 doses, May repeat in 30 minutes as needed, up to 3 doses. Given 08/05/2013 7:37 PM CDT 4 mg sodium chloride 0.9 % BOLUS New Bag 08/05/2013 7:37 PM CDT 1,000 m Ls 1000 mL/hr 1,000 mL Intravenous, 1,000 mL, ONCE, at 1,000 mL/hr, Administer over 1 Hours, On [place] 08/05/13 at 1930, For 1 dose sodium chloride 0.9 % BOLUS 1,000 mL New Bag 08/05/2013 9:49 PM CDT 45 mLs Intravenous, 1,000 mL, ONCE, On [place] 08/05/13 at 2145, For 1 dose documented in this encounter Active and Recently Administered Medications Times are shown in CDT. Scheduled Medication Order 08/03/2013 08/04/2013 08/05/2013 iopamidol (ISOVUE-370) 76% solution 500 mL (COMPLETED) 2148 (Given - Provider: Faye Tate - Comment: bulk) 500 mL, Intravenous, ONCE, [place] 08/05/13 at 2145, For 1 dose ketorolac (TORADOL) injection 30 mg (COMPLETED) 1936 (Given - Provider: Flavia Cunningham, RN) 30 mg, Intravenous, ONCE, [place] 08/05/13 at 1930, For 1 dose, Do not give within 6 hours of Ibuprofen. sodium chloride 0.9 % BOLUS 1,000 mL (COMPLETED) 1936 (New Bag - Provider: Flavia Cunningham, RN)2101 (Stopped - Provider: Flavia Cunningham, RN) Intravenous, 1,000 mL, ONCE, at 1,000 mL /hr, for 1 Hours, [place] 08/05/13 at 1930, For 1 dose sodium chloride 0.9 % BOLUS 1,000 mL (COMPLETED) 2148 (New Bag - Provider: Faye Tate - Comment: bulk)2149 (Stopped - Provider: Faye Tate) Intravenous, 1,000 mL, ONCE, [place] 08/05/13 at 2145, For 1 dose Continuous Medication Order 08/03/2013 08/04/2013 08/05/2013 0.9 % sodium chloride IV solution (CANCELED) 2118 (New Bag - Provider: Flavia Cunningham, DELLA)2220 (Stopped - Provider: Flavia Cunningham, RN) at 125 mL/hr, Intravenous, CONTINUOUS, A dminister after the bolus., Starting [place] 08/05/13 at 1930, Until Fri08/06/13 at 0032 PRN Medication Order 08/03/2013 08/04/2013 08/05/2013 morphine (PF) injection 4 mg (CANCELED) 2116 (Given - Provider: Flavia Cunningham, RN)2155 (Given - Provider: Flavia Cunningham, RN) 4 mg, Intravenous, EVERY 15 MIN PRN, mod erate to severe pain, severe pain, breakthrough pain, Starting [place] 08/05/13 at 2102, For 3 doses ondansetron (ZOFRAN) injection 4 mg (CANCELED) 1936 (Given - Provider: Flavia Cunningham, DELLA)2201 (Given - Provider: Alicia Oviedo RN) 4 mg, Intravenous, EVERY 30 MIN PRN, sheryl sea, vomiting, for 2 Minutes, Starting [place] 08/05/13 at 1927, For 3 doses, May repeat in 30 minutes as needed, up to 3 doses. documented in this encounter Care Teams Expansion Envelope Maker Hand Relationship Specialty Start Date End Date Félix Arteaga MD PCP - General 06/25/05 08/29/14 [facility] [address] [place] [address] documented as of this encounter
--- OUTSIDE RECORDS SUMMARY | 2022-02-09 01:02 | XMS_ITS | Encounter Summary ---
:1975 Author Organization [place] Address [address] [place] [address] Care Team Providers Name Role Phone Félix Arteaga MD Primary Care Provider + Reason for Visit Reason Onset Date Comments ER F/U 02/28/2014 patient was seem at [facility] ER on 02/27/2014 for constipation,bloatin g 6 ER vistis Encounter Details Date Type Department Care Team Description 02/28/2014 Telephone [facility] ER F/U (rosario penny was [facility] [place] KARAN Prather RAIL CREW MEMBER seem at [facility] ER on [address] [place] [address] 02/27/2014 for [place], [place] constip ation,bloating 6 [phone] ER vistis) [phone] Social History Tobacco Use Types Packs/Day Years [...] Telephone Encounter - Whitney Morales RN - 03/01/2014 1:09 PM CDT ED/Discharge Protocol Hi, my name is Whitney Morales, a registered nurse, and I am calling on behalf of Dr. Arteaga s office at [facility]. I am calling to follow up and see how things are going for you after your recent visit. I see that you were in the (ER/UC/IP) on 02/27/14. How are you doing now that you are home? still having nausea, fatigue and constipation. She has not filled any of the prescriptions yet. Is patient experiencing symptoms that may require a hospital visit? No Discharge Instructions Let's review your discharge instructions. What is/are the follow-up recommendations? Pt. Response: yes - appt with Whitney Almaguer today Were you instructed to make a follow-up appointment? Pt. Response: Yes. Has appointment been made? Yes When you see the provider, I would recommend that you bring your discharge instructions with you. Medications How many new medications are you on since your hospitalization/ED visit? 0-1 How many of your current medicines changed (dose, timing, name, etc.) while you were in the hospital/ED visit? 0-1 Do you have questions about your medications? No Were you newly diagnosed with heart failure, COPD, diabetes or did you have a heart attack? No For patients on insulin: Did you start on insulin in the hospital or did you have your insulin dosechanged? No Medication reconciliation completed? Yes Was MTM referral placed (*Make sure to put transitions as reason for referral)? No Call Summary Do you have any questions or concerns about your condition or care plan at the moment? No Triage nurse advice given: Pt advised to be seen. Patient was in ER 6 in the past year (assess appropriateness of ER visits.) If you have questions or things don't continue to improve, we encourage you contact us through the main clinic number, . Even if the clinic is not open, triage nurses are available 25/11 to help you. We would like you to know that our clinic has extended hours (provide information). We also have urgent care (provide details on closest location and hours/contact info) Thank you for your time and take care! Whitney Morales RN Telephone Encounter - Ingrid English - 02/28/2014 2:02 PM CDT Chief Complaint Patient presents with ??? ER F/U patient was seem at [facility] on 02/27/2014 for constipation,bloating 6 ER vistis Ingrid English/Spray Gun Sizer documented in this encounter Plan of Treatment Not on filedocumented as of this encounter Visit Diagnoses Not on filedocumented in this encounter Care Teams Wool Buyer Relationship Specialty Start Date End Date Félix Arteaga MD PCP - General 06/25/05 08/29/14 [facility] [address] [place] [address] documented as of this encounter
--- OUTSIDE RECORDS SUMMARY | 2022-02-09 01:02 | XMS_ITS | Encounter Summary ---
:1975 Author Organization [place] Address [address] [place] [address] Care Team Providers Name Role Phone Félix Arteaga MD Primary Care Provider + Reason for Visit Reason Comments Hospital F/U Encounter Details Date Type Department Care Team Description 03/01/2014 Office Visit [facility] Whitney Nicole UTI (u rinary tract infection) (Primary Dx); [facility] [place] MD [place] [address] [id number] [phone] Social History Tobacco Use Types Packs/Day Years [...] Reading Time Taken Comments Blood Pressure 110/60 03/01/2014 3:35 PM CDT Pulse 88 03/01/2014 3:35 PM CDT Temperature 36.7 ??C (98.1 ??F) 03/01/2014 3:35 PM CDT Respiratory Rate 12 03/01/2014 3:35 PM CDT Oxygen Saturation - - Inhaled Oxygen Concentration - - Weight 67.1 kg (148 lb) 03/01/2014 3:35 PM CDT Height - - Body Mass Index 25.4 02/27/2014 6:03 PM CDT documented in this encounter Patient Instructions Patient InstructionsWhitney Nicole MD - 03/01/2014 4:33 PM CDT Images from the original note were not included. Urinary Tract Infections in Women Urinary tract infections (UTIs) are most often caused by bacteria (germs). These bacteria enter the urinary tract. The bacteria may come from outside the body. Or they may travel from the skin outside the rectum or vagina into the urethra. Female anatomy makes it easier for bacteria from the bowel to enter a woman???s urinary tract, which is the most common source of UTI. This means women develop UTIs more often than men. Pain in or around the urinary tract is a common UTI symptom. But the only way to know for sure if you have a UTI for the doctor to test your urine. The two tests that may be done are the urinalysis and urine culture. Three Types of UTIs ?? Cystitis: A bladder infection (cystitis) is the most common UTI in women. You may have urgent or frequent urination. You may also have pain, burning when you urinate, and bloody urine. ?? Urethritis: This is an inflamed urethra, which is the tube that carries urine from the bladder tooutside the body. You may have lower stomach or back pain. You may also have urgent or frequent urination. ?? Pyelonephritis: This is a kidney infection. If not treated, it can be serious and damage your kidneys. In severe cases, you may be hospitalized. You may have a fever and upper back pain. Medications to Treat a UTI Most UTIs are treated with antibiotics. These kill the bacteria. The length of time you need to takethem depends on the type of infection. It may be as short as 3 days. If you have repeated UTIs, a low-dose antibiotic may be needed for several months. Take antibiotics exactly as directed. Don???t stop taking them until all of the medication is gone. If you stop taking the antibiotic too soon, the infection may not go away, and you may develop a resistance to the antibiotic. This can make it much harder to treat. Lifestyle Changes to Treat and Prevent UTIs The lifestyle changes below will help get rid of your UTI. They may also help prevent future UTIs. ?? Drink plenty of fluids. This includes water, juice, or other caffeine-free drinks. Fluids help flush bacteria out of your body. ?? Empty your bladder. Always empty your bladder when you feel the urge to urinate. And always urinate before going to sleep. Urine that stays in your bladder can lead to infection. Try to urinate before and after sex as well. ?? Practice good personal hygiene. Wipe yourself from front to back after using the toilet. This helps keep bacteria from getting into the urethra. ?? Use condoms during sex. These help prevent UTIs caused by sexually transmitted bacteria. Also, avoid using spermicides during sex. These can increase the risk of UTIs. Choose other forms of control instead. For women who tend to get UTIs after sex, a low-dose of a preventive antibiotic may beused. Be sure to discuss this option with your health care provider. ?? Follow up with your health care provider as directed. He or she may test to make sure the infection has cleared. If necessary, additional treatment may be started. ?? [id number] [employer]. [address] [place] [address], [place] [address]. All rights reserved. This information is not intended as a substitute for professional medical care. Always follow your healthcare professional's instructions. documented in this encounter Progress Notes Whitney Nicole MD - 03/01/2014 3:31 PM CDT SUBJECTIVE: Alyssa Aguillon is a 38 year old female who presents to clinic today for the following health issues: ED/UC Followup: Facility: [facility] Date of visit: 02/27/14 Reason for visit: Abdominal pain, bloating, constipation, nausea Current Status: some spotting on toilet paper, not due for period till March 09 around there, regular period, Nausea, fatigue, breast tenderness, bloated Problem list and histories reviewed & adjusted, as indicated. Additional history: She feels exactly the same way she did when she was with her 8 year old Problem list, Medication list, Allergies, and Medical/Social/Surgical histories [facility] andupdated as appropriate. ROS: C: NEGATIVE for fever, chills, change in weight E/M: NEGATIVE for ear, mouth and throat problems R: NEGATIVE for significant cough or SOB CV: NEGATIVE for chest pain, palpitations or peripheral edema GI: NEGATIVE for hematochezia and melena : negative for hematuria and retention OBJECTIVE: BP 110/60 Pulse 88 Temp(Src) 98.1 ??F (36.7 ??C) (Oral) Resp 12 Wt 148 lb (67.132 kg) LMP 02/03/2014 Body mass index is 25.39 kg/(m^2). GENERAL:uncomfortable, alert, moderate distress HENT: Mouth- no ulcers, no lesions, moist ucosa NECK: no tenderness, no adenopathy, RESP: lungs clear to auscultation CV: regular rates and rhythm ABDOMEN: soft, no mildly tender in the lower half, no hepatosplenomegaly, no masses, normal bowel sounds Diagnostic Test Results: test is negative today ASSESSMENT/PLAN: Alyssa was seen today for hospital f/u. Diagnoses and associated orders for this visit: UTI (urinary tract infection) - cephALEXin (KEFLEX) 500 MG capsule; Take 1 capsule (500 mg) by mouth 4 times daily for 7 days Nausea - Beta HCG qual IFA urine - doxylamine (UNISOM) 25 MG TABS; Take 1 tablet (25 mg) by mouth At Bedtime - pyridOXINE (VITAMIN B-6) 25 MG tablet; Take 1 tablet (25 mg) by mouth daily Discussed: There is the possibility of considering all her symptoms. The hormone levels might not be high enough to give a positive test yet Spotting could be implantation bleeding. It stops after implantation is complete Has bacteria and blood in the urine so I would treat for a UTI. May take zofran, Doxylamine and Vit B6 for nausea I would like her to recheck the test when she misses her period then I can order an US Whitney Nicole MD [facility] documented in this encounter Nursing Notes Valerie Garrett, BROOM MAKER - 03/01/2014 3:42 PM CDT No chief complaint on file. Initial BP 110/60 Pulse 88 Temp(Src) 98.1 ??F (36.7 ??C) (Oral) Resp 12 Wt 148 lb (67.132 kg) LMP 02/03/2014MIHIS@ BP completed using cuff size large rt Arm Health Maintenance Updated with Patient:Yes Tobacco Verified: Yes Payor/Verify RX Benefits/Reconcile Disp Completed if allowed: Yes Family History Updated: Yes Immunizations Up to Date: yes Mychart Offered: Yes Valerie Garrett MA documented in this encounter Miscellaneous Notes Addendum Note - Whitney Nicole MD - 03/01/2014 4:57 PM CDT Addended by: WHITNEY NICOLE on: 03/01/2014 04:57 PM Modules accepted: Orders, Medications documented in this encounter Plan of Treatment Not on filedocumented as of this encounter Procedures Procedure Name Priority Date/Time Associated Comments Diagnosis BETA HCG QUALITATIVE Routine 03/01/2014 3:57 PM Nausea R esults for this IFA URINE CDT procedure are i n the results section. documented in this encounter Results Beta HCG qual IFA urine (03/01/2014 3:57 PM CDT) P athologist Signature Beta HCG Qual Negative [facility]G [facility] Urine [facility] Specimen Anatomical Collection Method Collection Time Receive d Time (Source) Location / / Volume Laterality Urine specimen 03/01/2014 3:57 PM 014 3:58 (specimen) CDT PM CDT Whitney Nicole MD LAB - URINE ORDERABLES Performing Organization Address City/State/ZIP Code Phon e Number [facility] [address] [place], [place] [phone] documented in this encounter Visit Diagnoses Diagnosis UTI (urinary tract infection) - Primary Urinary tract infection, site not specif ied Nausea Nausea alone documented in this encounter Care Teams Cork Sorter Relationship Specialty Start Date End Date ChandlerFélix martinez MD PCP - General 06/25/05 08/29/14 [facility] [address] [place] [address] documented as of this encounter
--- OUTSIDE RECORDS SUMMARY | 2022-02-09 01:02 | XMS_ITS | Encounter Summary ---
:1975 Author Organization [place] Address [address] [place] [address] Care Team Providers Name Role Phone Félix Arteaga MD Primary Care Provider + Encounter Details Date Type Department Care Team Description 08/12/2013 Office Visit [facility] Eliza Badillo NO SHOW (Primary Dx) Clinic [place] JEREMY Mooney [address] [place] [phone] [facility] [address] [place] [id number] Social History Tobacco Use Types Packs/Day [...] documented as of this encounter Progress Notes Eliza Badillo PA-C - 08/12/2013 3:33 PM CDT NO SHOW documented in this encounter Plan of Treatment Not on filedocumented as of this encounter Visit Diagnoses Diagnosis NO SHOW - Primary documented in this encounter Care Teams [place] Tower Loader Relationship Specialty Start Date End Date Félix Arteaga MD PCP - General 06/25/05 08/29/14 [facility] [address] [place] [address] documented as of this encounter
--- OUTSIDE RECORDS SUMMARY | 2022-02-09 01:02 | XMS_ITS | Encounter Summary ---
:1975 Author Organization [place] Address [address] [place] [address] Care Team Providers Name Role Phone Félix Arteaga MD Primary Care Provider + Encounter Details Date Type Department Care Team Description 09/06/2013 Therapy Visit [facility] Iva Soto, PT Acute low back pain [facility] [place] with disc symptoms, [place] [phone] [place] [address] DR duration less than 6 [phone] [facility] 300 weeks (Primary Dx) [address] [place] [phone] Social History Tobacco Use Types Packs/Day Years [...] documented as of this encounter Progress Notes Iva Soto, PT - 09/06/2013 9:23 PM CDT Images from the original note were not included. Subjective: Alyssa Aguillon is a 38 year old female with a lumbar condition. This is a new condition September 06, 2013. Patient reports she awoke this morning with R sided back pain (for no apparent reason) which significantly worsened over the day. Reports no radiation below her back but some into the front of her right hip. Reports her pain is constant and rate it as a 10/10. WORSE: Bending, sitting, standing, walking. BETTER: when still or lying down. Previous history of one other episode which improved in a short period of time with pain meds. Pain (back) with urination, but reports normal bowel and bladder, and no other red flags. . Objective: System Physical Exam [place] Lumbar Evaluation Test Movements: SGIS R: During: increases After: no worse Mechanical Response: IncROM Repeat SGIS R: During: increases After: no worse Mechanical Response: IncROM Static Tests: Lying Prone in Extension: with 2 pillows + ice; Musculoskeletal: Back: Legs: ROS Assessment/Plan: Patient is a 38 year old female with lumbar complaints. Patient has the following significant findings with corresponding treatment plan. Diagnosis 1: Acute back pain Pain - hot/cold therapy, self management, education, directional preference exercise and home program Decreased ROM/flexibility - manual therapy and therapeutic exercise Impaired gait - gait training Decreased function - therapeutic activities Previous and current functional limitations: (See Goal Flow Sheet for this information) Short term and care home goals: (See Goal Flow Sheet for this information) Communication ability: Patient appears to be able to clearly communicate and understand verbal and written communication and follow directions correctly. Treatment Explanation - The following has been discussed with the patient: RX ordered/plan of care Anticipated outcomes Possible risks and side effects This patient would benefit from PT intervention to resume normal activities. Rehab potential is good. Frequency: 1 X week, once daily Duration: for 6 weeks Discharge Plan: Achieve all LTG. Independent in home treatment program. Reach maximal therapeutic benefit. Please refer to the daily flowsheet for treatment today, total treatment time and time spent performing 1:1 timed codes. documented in this encounter Plan of Treatment Not on filedocumented as of this encounter Procedures Procedure Name Priority Date/Time Associated Diagnosis Comme [facility] THERAPEUTIC Routine 09/08/2013 11:47 AM Acute low back corina n ACTIVITIES CDT with disc symptoms, duration less than 6 weeks documented in this encounter Visit Diagnoses Diagnosis Acute low back pain with disc symptoms, duration less than 6 weeks - Primary documented in this encounter Care Teams Respiratory Assistant Relationship Specialty Start Date End Date Félix Arteaga MD PCP - General 06/25/05 08/29/14 [facility] [address] [place] [address] documented as of this encounter
--- OUTSIDE RECORDS SUMMARY | 2022-02-09 01:03 | XMS_ITS | Encounter Summary ---
:1975 Author Organization [place] Address [address] [place] [place] [address] Care Team Providers Name Role Phone Félix Arteaga MD Primary Care Provider + Reason for Visit Reason Onset Date Comments Results 12/03/2010 low hgb Encounter Details Date Type Department Care Team Description 12/03/2010 Telephone [facility] Félix Arteaga (low hgb) [facility] Redd Baxter MD [address] [place] [address] [facility] [phone] [address] [phone] [place], [place] [address] (Wo rk) Social History [...] this encounter Miscellaneous Notes Telephone Encounter - Nohelia Nicole RN - 12/03/2010 7:18 PM CDT Pt presents in clinic for a lab only appointment. Hemoglobin Date Value Range Status 12/03/2010 8.3* 11.7-15.7 (g/dL) Final Results confirmed by repeat test 11/22/2010 9.1* 11.7-15.7 (g/dL) Final Results confirmed by repeat test ] Pt states she passed a blood clot this weekend and has had intermittent light bleeding ever since the surgery, but is unsure if it is now the beginning of her period. Pt has not yet f/u with surgeon. Pt was told to take iron supplement prior to surgery, but did not tolerate them. Pt states they made her nauseated, then was given compazine, then had to go to ER d/t side effects from compazine and was given Ativan. Per james with Dr. Velarde : Pt to recheck hgb in 1 week and eat iron rich foods until then. Pt to also f.u with surgeon tomorrow. Pt to go to ER or f/u with clinic if bleeding increases or abdominal pain begins. Lab only appointment made for next Friday. Pt given a list of iron rich foods. Pt agrees with and verbalizes understanding of this plan. Thank you, Nohelia Nicole RN [facility] Message handled by Nurse Triage with James - provider name: Dr. Sorto. documented in this encounter Plan of Treatment Not on filedocumented as of this encounter Visit Diagnoses Not on filedocumented in this encounter Care Teams Sound Recordist Relationship Specialty Start Date End Date Félix Arteaga MD PCP - General 06/25/05 08/29/14 [facility] [address] [place] [address] documented as of this encounter
--- OUTSIDE RECORDS SUMMARY | 2022-02-09 01:03 | XMS_ITS | Encounter Summary ---
:1975 Author Organization [place] Address [address] [place] [address] Care Team Providers Name Role Phone Félix Arteaga MD Primary Care Provider + Encounter Details Date Type Department Care Team Description 11/19/2010 Hospital Pathology [facility] [place] , [facility] Results [address], [address] [place], [place] [address] (Wo rk) Social History Tobacco Use Types Packs/Day Years Used Date Never Smoker Alcohol Use Standard Drinks/Week Comments Yes 0 [...] Name Priority Date/Time Associated Diagnosis Comme nts SURGICAL PATHOLOGY Routine 11/19/2010 9:15 AM Res ults for this EXAM CDT procedure are i n the results section. documented in this encounter Results Surgical pathology exam (11/19/2010 9:15 AM CDT) Component Value Ref Test Analysis Performed At [facility] Range Method Time Signature Copath Report Patient Name: COURTNEY LIZAMA COPATH MR#: [id number] Specimen #: [id number] Collected: 11/19/2010 Received: 11/19/2010 Reported: 11/23/2010 08:20 Ordering Phy(s): [place] SPECIMEN(S): A: Anterior cervix B: Posterior cervix FINAL DIAGNOSIS: A. ??Anterior cervix, cone biopsy - Severe dysplasia / SAMY 3 ??involving the entire ??9-12 and 12- to 3 o'clock quadrants with glandu lar extension. ??All margins are negative for dysplasia. B. ??Posterior cervix, cone biopsy - Immature squamous metap lasia. Negative for dysplasia or malignancy. Electronically signed out by: Clara Howard MD CLINICAL HISTORY: CIN3 and ECC. GROSS: A. ??The specimen is labeled anterior cervix. ??The specim en consists of a pink rubbery C-shaped strip of cervical tissue (3.1 x 1.7 x 1.2 cm). The inner portion of the C is inked blue and the specimen is serially sectioned and entirely submitted. ??The specimen is sequenti ally submitted from the 9 to 12 to 3 o'clock positions on 4 casse ttes. B. ??The specimen consists of a pink rubbery strip of cervic al tissue (2.1 x 1.5 x 1.1 cm). ??The endocervical canal is inked blue . ??The remaining tissue is inked black. ??The specimen is entirely sequentially submitted from the 3 to 6 to 9 o'clock position, in 4 casset sean. ??SI TRS/lc MICROSCOPIC: A. ??Sections through A2 ??CIN3 / Severe dysplasia arising i n a background of squamous metaplasia with glandular extension.. ??Blocks A 3 and A4 also show SAMY 3/severe dysplasia. All margins are negative for dy splasia. B. ??Sections through B1 and B3 show squamous metaplasia at the transformation zone with immaturity.. Immunostains including p 16 and Ki-67 are done to rule out possible dysplasia, and show that p16 is negative and Ki- 67 shows basal ??and focal parabasal staini ng, ruling out dysplasia. LRV/ls 11/20/2010 TESTING LAB LOCATION: [address] ??[id number] COLLECTION SITE: Client: [facility] Location: SDS (S) Specimen Anatomical Collection Method Collection Time Receive d Time (Source) Location / / Volume Laterality 11/19/2010 9:15 AM 1 CDT 11:40 AM CDT Janes BARRIENTOS - BAN Performing Organization Address City/State/ZIP Code Phon e Number [place] documented in this encounter Visit Diagnoses Not on filedocumented in this encounter Care Teams Editor Trade Journal Relationship Specialty Start Date End Date Félix Arteaga MD PCP - General 06/25/05 08/29/14 [facility] [address] [place] [address] documented as of this encounter
--- OUTSIDE RECORDS SUMMARY | 2022-02-09 01:03 | XMS_ITS | Encounter Summary ---
:1975 Author Organization [place] Address [address] [place] [address] Care Team Providers Name Role Phone Félix Arteaga MD Primary Care Provider + Encounter Details Date Type Department Care Team Description 12/13/2010 Orders Only [facility] Aleksey Arshad Headac he; Clinic [place] MD [place] corina n; Laboratory TMJ (temporomandibular joint syndrome) [address] [place] [address] Social History Tobacco Use Types [...] as of this encounter Visit Diagnoses Diagnosis Headache(784.0) Headache Neck pain Cervicalgia TMJ (temporomandibular joint syndrome) Temporomandibular joint disorders, unspe cified documented in this encounter Care Teams Business Intelligence Consultant Relationship Specialty Start Date End Date Félix Arteaga MD PCP - General 06/25/05 08/29/14 [facility] [address] [place] [address] documented as of this encounter
--- OUTSIDE RECORDS SUMMARY | 2022-02-09 01:03 | XMS_ITS | Encounter Summary ---
:1975 Author Organization [place] Address [address] [place] [address] Care Team Providers Name Role Phone Félix Arteaga MD Primary Care Provider + Reason for Visit Reason Comments RECHECK Encounter Details Date Type Department Care Team Description 06/25/2013 Office Visit [facility] Sanjay, Acute pharyngitis (Primary Dx); Clinic [place] Isis Edwards PA-C Strep throat [address] [facility] [address] [place] [address] [phone] Social History Tobacco Use Types Packs/Day Years [...] Sign Reading Time Taken Comments Blood Pressure 140/90 06/25/2013 2:57 PM LAUNDRY OPERATOR FINISHING Pulse 87 06/25/2013 2:57 PM LAUNDRY OPERATOR FINISHING Temperature 36.4 ??C (97.6 ??F) 06/25/2013 2:57 PM LAUNDRY OPERATOR FINISHING Respiratory Rate - - Oxygen Saturation 98% 06/25/2013 2:57 PM LAUNDRY OPERATOR FINISHING Inhaled Oxygen Concentration - - Weight 64 kg (141 lb) 06/25/2013 2:57 PM LAUNDRY OPERATOR FINISHING Height 162.6 cm (5' 4) 06/25/2013 2:57 PM LAUNDRY OPERATOR FINISHING Body Mass Index 24.2 06/25/2013 2:57 PM LAUNDRY OPERATOR FINISHING documented in this encounter Patient Instructions Patient InstructionsIsis Grace PA-C - 06/25/2013 3:33 PM LAUNDRY OPERATOR FINISHING Images from the original note were not included. 462 Acute pharyngitis (primary encounter diagnosis) Comment: Plan: Strep, Rapid Screen, penicillin V potassium (VEETID) 500 MG tablet 034.0 Strep throat Comment: Plan: penicillin V potassium (VEETID) 500 MG tablet The patient is advised to push fluids, rest, gargle warm salt water, use vaporizer or mist needed ,use acetaminophen, ibuprofen as needed and Return office visit if symptoms persist or worsen. Pharyngitis Strep (Strep Throat) Adult Information About Your Condition: Description Sore throat is a common symptom that ranges in severity from just a sense of scratchiness to severe pain. Pharyngitis is the medical term for sore throat. Strep throat is an inflamed (red and swollen) throat caused by infection with a kind of bacteria called group A Streptococci. With treatment, the fever and sore throat pain are usually gone within 24 hours. After taking antibiotics for 24 hours you are no longer contagious. It is important to treat strep throat to prevent some rare but serious complications such as rheumatic fever (a disease that affects the heart) or glomerulonephritis (a disease that affects the kidneys). Symptoms The symptoms of a strep infection may include one or more of the following: sore, red throat painful swallowing fever chills headaches muscle aches and pains tired feeling swollen, tender lymph nodes (glands) in the neck loss of appetite Causes Strep throat is caused by infection with bacteria called Group A Streptococci. Strep infections are very contagious. They are usually passed directly from person to person. Strep throat is most common in school-age children, who then often pass it to the rest of the family. It most often occurs from March through August, but it can happen any time of year. What You Should Do At Home (Follow-up Care) It is important to get plenty of rest when you are not feeling well so that your body may focus its energy on getting you healthy. If you smoke, stop. If someone else in your household smokes ask them to smoke outside. If you were given a prescription for antibiotics, be sure to get it filled right away. Follow the directions exactly. Take the medicine until it is completely gone. Do not stop taking it just because you feel better. Acetaminophen (Tylenol??) or kbob-wtw-deafnau anti-inflammatory medicine such as ibuprofen (Motrin??, Advil??) or naproxen (Aleve??, Naprosyn??) may help decrease fever and pain. You should not take ibuprofen or naproxen if you have a history of bleeding in your stomach. As long as your healthcare provider has not told you differently, drink plenty of liquids. An average adult should drink at least 6 to 10 eight-ounce glasses of liquids that do not contain alcohol (including beer or wine), such as water, juice, or weak tea each day. One way to tell if you are drinkingenough liquid is to look at the color of your urine (pee). It should be very light yellow. If eating hurts your throat, don't force yourself to eat solid food. When you are able to eat more foods, choose healthy food to give you strength and to help fight the infection. If the air in your home is dry, a cool-mist humidifier can moisten the air and help make breathing easier. Be sure to clean your humidifier often so that bacteria and mold can???t grow. You can also try running hot water in the shower or bathtub to steam up the bathroom. Sit in there for 10 to 15 minutes if you are coughing hard or having trouble breathing. Gargle with salt water. Stir 1/2 teaspoon salt in an 8-ounce glass of warm water to make your own salt water gargle. Suck on lozenges or hard candy. Don't talk a lot. Rest your voice. Avoid close contact with other people until you have been taking the antibiotic for 24 to 48 hours so they will not be exposed to the strep bacteria. Cover your nose and mouth with a tissue when coughing or sneezing and then throw it away in the nearest waste receptacle. Wash your hands often with warm water and soap for at least 15 seconds before you touch food, dishes, glasses, silverware, or cloth napkins. You can also carry an alcohol-based hand drain cleaner with you toclean your hands when soap and water aren???t available. Wash your hands after you cough. Please keep all medicines out of the reach of children. What You Can Do To Stay Healthy Be careful not to let your nose or mouth touch public telephones or drinking fountains. Use paper cups and paper towels in bathrooms instead of shared drinking cups and hand towels. Do not share food and eating utensils with others. Stay away from people known to be sick. Care Alerts Call 911 if: You have trouble breathing or swallowing. Your feel like your throat or tongue are swelling. Call Your Healthcare Provider Right Away Or Return To The Emergency Department If: You are coughing up yellow or greenish phlegm (mucus.) You have a severe headache that does not get better with acetaminophen or ibuprofen. You start to have a very stiff neck and have pain when you bend your head forward. You have a fever higher than 101.5?? F (38.6?? C) orally that does not go down after taking acetaminophen or ibuprofen. You have any symptoms that worry you DRY OPERATOR FINISHING documented in this encounter Progress Notes Isis Grace PA-C - 06/25/2013 2:58 PM CST Images from the original note were not included. SUBJECTIVE: Alyssa Aguillon is a 37 year old female who presents to clinic today for the following health issues: Dx with strep throat 2 wks ago and still has a sore throat. Was put on amoxicillin and still has sore throat Problem list and histories reviewed & adjusted, as indicated. Additional history: as documented BP Readings from Last 3 Encounters: 06/30/13 120/85 06/27/13 121/82 06/25/13 140/90 Wt Readings from Last 3 Encounters: 06/25/13 141 lb (63.957 kg) 06/09/13 130 lb (58.968 kg) 09/23/12 136 lb (61.689 kg) ROS: Constitutional, HEENT, cardiovascular, pulmonary, gi and gu systems are negative, except as otherwise noted. OBJECTIVE: BP 140/90 Pulse 87 Temp 97.6 ??F (36.4 ??C) (Oral) Ht 5' 4 (1.626 m) Wt 141 lb (63.957 kg) BMI 24.19 kg/m2 SpO2 98% LMP 05/18/2013 Body mass index is 24.19 kg/(m^2). GENERAL APPEARANCE: healthy, alert and mild distress HENT: ear canals and TM's normal and nose without ulcers or lesions and posterior pharynx erythematous RESP: lungs clear to auscultation - no rales, rhonchi or wheezes CV: regular rates and rhythm, normal S1 S2, no S3 or S4 and no murmur, click or rub ABDOMEN: soft, nontender, without hepatosplenomegaly or masses and bowel sounds normal Diagnostic test results: Strep screen - Positive ASSESSMENT/PLAN: 462 Acute pharyngitis (primary encounter diagnosis) Comment: Plan: Strep, Rapid Screen, penicillin V potassium (VEETID) 500 MG tablet 034.0 Strep throat Comment: Plan: penicillin V potassium (VEETID) 500 MG tablet See Patient Instructions Isis Grace PA-C, [facility] Patient Instructions 462 Acute pharyngitis (primary encounter diagnosis) Comment: Plan: Strep, Rapid Screen, penicillin V potassium (VEETID) 500 MG tablet 034.0 Strep throat Comment: Plan: penicillin V potassium (VEETID) 500 MG tablet The patient is advised to push fluids, rest, gargle warm salt water, use vaporizer or mist needed ,use acetaminophen, ibuprofen as needed and Return office visit if symptoms persist or worsen. Pharyngitis Strep (Strep Throat) Adult Information About Your Condition: Description Sore throat is a common symptom that ranges in severity from just a sense of scratchiness to severe pain. Pharyngitis is the medical term for sore throat. Strep throat is an inflamed (red and swollen) throat caused by infection with a kind of bacteria called group A Streptococci. With treatment, the fever and sore throat pain are usually gone within 24 hours. After taking antibiotics for 24 hours you are no longer contagious. It is important to treat strep throat to prevent some rare but serious complications such as rheumatic fever (a disease that affects the heart) or glomerulonephritis (a disease that affects the kidneys). Symptoms The symptoms of a strep infection may include one or more of the following: sore, red throat painful swallowing fever chills headaches muscle aches and pains tired feeling swollen, tender lymph nodes (glands) in the neck loss of appetite Causes Strep throat is caused by infection with bacteria called Group A Streptococci. Strep infections are very contagious. They are usually passed directly from person to person. Strep throat is most common in school-age children, who then often pass it to the rest of the family. It most often occurs from March through August, but it can happen any time of year. What You Should Do At Home (Follow-up Care) It is important to get plenty of rest when you are not feeling well so that your body may focus its energy on getting you healthy. If you smoke, stop. If someone else in your household smokes ask them to smoke outside. If you were given a prescription for antibiotics, be sure to get it filled right away. Follow the directions exactly. Take the medicine until it is completely gone. Do not stop taking it just because you feel better. Acetaminophen (Tylenol??) or eymv-qqi-bqqbgwi anti-inflammatory medicine such as ibuprofen (Motrin??, Advil??) or naproxen (Aleve??, Naprosyn??) may help decrease fever and pain. You should not take ibuprofen or naproxen if you have a history of bleeding in your stomach. As long as your healthcare provider has not told you differently, drink plenty of liquids. An average adult should drink at least 6 to 10 eight-ounce glasses of liquids that do not contain alcohol (including beer or wine), such as water, juice, or weak tea each day. One way to tell if you are drinkingenough liquid is to look at the color of your urine (pee). It should be very light yellow. If eating hurts your throat, don't force yourself to eat solid food. When you are able to eat more foods, choose healthy food to give you strength and to help fight the infection. If the air in your home is dry, a cool-mist humidifier can moisten the air and help make breathing easier. Be sure to clean your humidifier often so that bacteria and mold can???t grow. You can also try running hot water in the shower or bathtub to steam up the bathroom. Sit in there for 10 to 15 minutes if you are coughing hard or having trouble breathing. Gargle with salt water. Stir 1/2 teaspoon salt in an 8-ounce glass of warm water to make your own salt water gargle. Suck on lozenges or hard candy. Don't talk a lot. Rest your voice. Avoid close contact with other people until you have been taking the antibiotic for 24 to 48 hours so they will not be exposed to the strep bacteria. Cover your nose and mouth with a tissue when coughing or sneezing and then throw it away in the nearest waste receptacle. Wash your hands often with warm water and soap for at least 15 seconds before you touch food, dishes, glasses, silverware, or cloth napkins. You can also carry an alcohol-based hand drain cleaner with you toclean your hands when soap and water aren???t available. Wash your hands after you cough. Please keep all medicines out of the reach of children. What You Can Do To Stay Healthy Be careful not to let your nose or mouth touch public telephones or drinking fountains. Use paper cups and paper towels in bathrooms instead of shared drinking cups and hand towels. Do not share food and eating utensils with others. Stay away from people known to be sick. Care Alerts Call 911 if: You have trouble breathing or swallowing. Your feel like your throat or tongue are swelling. Call Your Healthcare Provider Right Away Or Return To The Emergency Department If: You are coughing up yellow or greenish phlegm (mucus.) You have a severe headache that does not get better with acetaminophen or ibuprofen. You start to have a very stiff neck and have pain when you bend your head forward. You have a fever higher than 101.5?? F (38.6?? C) orally that does not go down after taking acetaminophen or ibuprofen. You have any symptoms that worry you DRY OPERATOR FINISHING documented in this encounter Nursing Notes 06/25/2013 2:40 PM CST >> UMESH PASTOR Fri Jun 25, 2013 2:58 PM Patient presents with: RECHECK Initial BP 140/90 Pulse 87 Temp 97.6 ??F (36.4 ??C) (Oral) Ht 5' 4 (1.626 m) Wt 141 lb (63.957 kg) BMI 24.19 kg/m2 SpO2 98% LMP 05/18/2013 Estimated Body mass index is 24.19 kg/(m^2) as calculated from the following: Height as of this encounter: 5' 4(1.626 m). Weight as of this encounter: 141 lb(63.957 kg). BP completed using cuff size: regular Umesh Pastor SMOKE TESTER documented in this encounter Plan of Treatment Not on filedocumented as of this encounter Procedures Procedure Name Priority Date/Time Associated Diagnosis Comme nts RAPID STREP SCREEN Routine 06/25/2013 3:21 PM Acute pharyngiti s Results for this THROAT SWAB LAUNDRY OPERATOR FINISHING procedure are i n the results section. documented in this encounter Results (ABNORMAL) Strep, Rapid Screen (06/25/2013 3:21 PM LAUNDRY OPERATOR FINISHING) Component Value Ref Test Analysis Performed At [facility] Range Method Time Signature Specimen Throat WOOD Description [facility] Rapid Strep A POSITIVE: Group WOOD Screen A Streptococcal CLINICS antigen detected [place] by immunoassay. (A) Micro Report FINAL 06/25/2013 WOOD Status [facility] Specimen Anatomical Collection Method Collection Time Receive d Time (Source) Location / / Volume Laterality Specimen from 06/25/2013 3:21 PM 06/25/19 14 3:22 throat LAUNDRY OPERATOR FINISHING PM LAUNDRY OPERATOR FINISHING (specimen) Isis Grace PA-C LAB - MICRO GENERAL OR DERABLES Performing Organization Address City/State/ZIP Code Phon e Number [facility] [id number] [place] [address] documented in this encounter Visit Diagnoses Diagnosis Acute pharyngitis - Primary Strep throat Streptococcal sore throat documented in this encounter Care Teams Tab Machine Operator Relationship Specialty Start Date End Date Félix Arteaga MD PCP - General 06/25/05 08/29/14 [facility] [address] [place] [address] documented as of this encounter
--- OUTSIDE RECORDS SUMMARY | 2022-02-09 01:03 | XMS_ITS | Encounter Summary ---
:1975 Author Organization [place] Address [address] [place] [address] Care Team Providers Name Role Phone Félix Arteaga MD Primary Care Provider + Reason for Visit Reason Comments Cough Fever Otalgia Encounter Details Date Type Department Care Team Description 05/07/2012 Emergency [facility] Matty Huffman MD Acute otitis media (Primary Dx); [facility] Emergency Dep t [facility] Acute URI [address] [place], [place] [address] [place] [id number] [place] [address] [place], [place] [address] (Wo rk) Social History Tobacco Use Types [...] Sign Reading Time Taken Comments Blood Pressure 128/88 05/07/2012 8:23 AM POWDER NIPPER Pulse - - Temperature 36.6 ??C (97.9 ??F) 05/07/2012 8:23 AM POWDER NIPPER Respiratory Rate 20 05/07/2012 8:23 AM POWDER NIPPER Oxygen Saturation 100% 05/07/2012 8:23 AM POWDER NIPPER Inhaled Oxygen Concentration - - Weight - - Height - - Body Mass Index - - documented in this encounter Discharge Instructions Discharge InstructionsMatty Huffman MD - 05/07/2012 8:48 AM CST Discharge Instructions Otitis Media You or your child have an ear infection known as acute otitis media, or middle ear infection (otitis= ear, media = middle). These infections often develop after a virus infection, such as a cold. The cold causes swelling around the pressure-equalizing tube of the ear, which allows fluid to build up in the space behind the eardrum (the middle ear). This fluid build-up can trap bacteria and viruses and increase pressure on the eardrum causing pain. Return to the Emergency Department if: You or your child are not better within 24-48 hours Your child becomes very fussy or weak Your child is showing signs of dehydration, such as less than 3 wet diapers per day Your symptoms get worse, or if you develop a severe headache, stiff neck, or new symptoms You have signs of allergic reaction to medicine. These include rash, lip swelling, difficulty breathing, wheezing, and dizziness. Ear Infection Symptoms: Symptoms of an ear infection can include ear aching or pain and temporary hearing loss. These symptoms often come on suddenly. Ear Infection Symptoms (Infants / Young Children): Fever (temperature greater than 100.4??F or 38??C) Pulling on the ear Fussiness Decreased activity Lack of appetite or difficulty eating Vomiting or diarrhea Treatment: The best treatment depends on your age, history of previous infections, and any underlying medical problems. Antibiotics are not given to every patient with an ear infection because studies show that many people with ear infections will improve without using antibiotics. Because antibiotics can have side effects such as diarrhea and stomach upset and can also cause severe allergic reactions, doctors are trying to avoid using antibiotics if it is safe for the patient to do so. In these cases, a prescriptionfor antibiotics may be given to be filled in 24 -48 hours if symptoms are getting worse or not improving. If the symptoms are improving, the antibiotic does not need to be taken. Remember, antibiotics do not treat pain. Pain medications. You may take a pain medication such as, acetaminophen (Tylenol??), ibuprofen (Advil??, Nuprin ??) or naproxen (Aleve??). If you have been given a narcotic (such as codeine, hydrocodone, or oxycodone), do not drive for four hours after you have taken it. If the narcotic contains acetaminophen (Tylenol), do not take Tylenol with it. All narcotics will cause constipation, so eat a high fiber diet. Pain treatment options also include ear drops such as Auralgan, which contains a topical numbing medicine. Do not take a medication if you have a known allergy to that medication. Complications: Tympanic membrane rupture -- One possible complication of an ear infection is rupture of the tympanic membrane, or ear drum. This happens because of pressure on the tympanic membrane from the infectedfluid. When the tympanic membrane ruptures, you may have pus or blood drain from the ear. It does not hurt when the membrane ruptures, and many people actually feel better because pressure is released.Fortunately, the tympanic membrane usually heals quickly after rupturing, within hours to days. You should keep water out of the ear until you re-check with your doctor to be sure the ear drum has healed. Mastoiditis - Rarely, the area behind the ear can become infected, this area is called the mastoid.If you notice redness and swelling behind your ear, see your physician or return to the emergency department immediately. Hearing loss -- The fluid that collects behind the eardrum (called an effusion) can persist for weeks to months after the pain of an ear infection resolves. An effusion causes trouble hearing, which is usually temporary. If the fluid persists, however, it can interfere with the process of learning tospeak. For this reason, children under 2 need to be seen by their software engineer kernel WITHIN 3 MONTHS to ensure that the fluid has been reabsorbed. Remember that you can always come back to the Emergency Department if you are not able to see your regular doctor in the amount of time listed above, if you get any new symptoms, or if there is anything that worries you. Discharge Instructions Upper Respiratory Infection The upper [...] days. Return to the Emergency Department if: Any of the symptoms you have get much worse You seem very sick, like being too weak to get up You have any new symptoms, especially serious things like chest pain You are short of breath You have a severe headache You are vomiting so much you can???t keep fluids or medicines down You have confusion or seem unusually drowsy You have a seizure or convulsion Follow-up: You should start to improve in 3 - 5 days. A cough can linger for up to six weeks, but overall you should be feeling much better. See your doctor if you have a fever for more than 3 days, or if you arenot feeling better within 5 days. What can I do to help myself? Fill any prescriptions the doctor gave you and take them right away If you have a fever, get plenty of rest and drink lots of fluids, especially water. Using a humidifier or saline nose spray will also help loosen secretions. What clothes or blankets you have on won???t change your fever. Do what is comfortable for you. Bathing or sponging in lukewarm water may help you feel better. Acetaminophen (Tylenol or generic) or ibuprofen (Motrin, Advil, or generic) help bring fever down and may help you feel more comfortable. Be sure to read and follow the package directions, and ask your doctor if you have questions. Do not drink alcohol. Decongestants may help you feel better. You may use decongestant nose sprays (like Afrin, Mikie-Synephrine) for up to 3 days, or may use a decongestant tablet like pseudoephedrine (Sudafed). Remember that you can always come back to the Emergency Department if you are not able to see your normal doctor in the amount of time listed above, if you get any new symptoms, or if there is anythingthat worries you. ER NIPPER documented in this encounter Medications at Time of Discharge Medication Sig Dispensed Refills Start Date End Date amoxicillin (AMOXIL) 500 Take 1 capsule by 21 capsule 0 07/201205/14/2012 MG capsule mouth 3 times daily for 7 days. acetaminophen (TYLENOL) Take 1-2 tablets by 0 12/29/2013 500 MG tablet mouth every 6 hours as needed. ferrous gluconate Take 1 tablet by 100 tablet 5 12/07/2010 0 09/06/2013 (FERGON) 324 (38 FE) MG mouth daily (with tabletIndications: breakfast). Menorrhagia Ferrous Sulfate Dried Take by mouth 0 12/29/2013 (SLOW IRON PO) daily. fluticasone (FLONASE) 50 [place] 1-2 sprays 1 Package 0 05/0709/06/2013 MCG/ACT nasal spray into both nostrils daily. ibuprofen (ADVIL,MOTRIN) Take 3 tablets by 20 tablet 0 07/201212/29/2013 200 MG tablet mouth every 8 hours as needed for pain. documented as of this encounter ED Notes Matty Huffman MD - 05/07/2012 8:33 AM CST History Chief Complaint: Cough, Fever, and Ear Pain HPI Alyssa Aguillon is a 36 year old female who presents with cough, fever and ear pain. The patient states for the past week she has had fever up to 102 at its highest with cough, fatigue, headache and cough. She explains today she woke up with left sided ear pain despite taking Sudafed and Advil. The patient's children were sick with fevers prior to her getting sick. She denies sore throat, shortnessof breath, chest pain, abdominal pain, constipation, diarrhea, nausea, vomiting, rash, back pain, dysuria, difficulty urinating, dizziness or lightheadedness. The patient did not get a flu shot this year. Allergies: No Known Allergies Medications: Ferrous Sulfate Sudafed Advil Tylenol Ferogon Past Medical History: Ovarian Cyst Menorrhagia-premenopausal Anemia Past Surgical History: Combined colposcopy cervix and loop electrode biopsy- LEEP- 8 years ago Family History: No family history of breast or colon cancer Marital Status: Single Social History: Patient has no history of tobacco use and drinks alcohol sparingly. Review of Systems Constitutional: Positive for fever and fatigue. HENT: Positive for ear pain. Negative for sore throat. Respiratory: Positive for cough. Negative for shortness of breath. Cardiovascular: Negative for chest pain. Gastrointestinal: Negative for nausea, vomiting, abdominal pain, diarrhea and constipation. Genitourinary: Negative for dysuria and difficulty urinating. Musculoskeletal: Negative for back pain. Skin: Negative for rash. Neurological: Positive for headaches. Negative for dizziness and light-headedness. All other systems reviewed and are negative. Physical Exam First Vitals: BP: 128/88 mmHg Heart Rate: 92 Temp: 97.9 ??F (36.6 ??C) Resp: 20 SpO2: 100 % Physical Exam Constitutional: She is oriented to person, place, and time. She appears well- developed. No distress. Well appearing. HENT: Head: Normocephalic. Mouth/Throat: Oropharynx is clear and moist. Right TM clear. Left TM dull, bulging, mildly erythematous. No oropharyngeal erythema. Eyes: EOM are normal. Pupils are equal, round, and reactive to light. Neck: Neck supple. Cardiovascular: Normal rate, regular rhythm and normal heart sounds. Exam reveals no gallop and no friction rub. No murmur heard. Pulmonary/Chest: Effort normal and breath sounds normal. No respiratory distress. She has no wheezes. She has no rales. Abdominal: Soft. She exhibits no distension. There is no tenderness. There is no rebound and no guarding. Musculoskeletal: Normal range of motion. Neurological: She is alert and oriented to person, place, and time. Moves all 4 extremities spontaneously Skin: No rash noted. No pallor. Emergency Department Course Interventions: Antipyrine-benzocaine 3 drops right ear Ibuprofen 600 mg oral Emergency Department Course: I examined the patient and discussed a plan of care. The patient reported feeling improved after the above interventions. Rechecked the patient, findings and plan explained to the patient. Patient discharged home, status improved, with instructions regarding supportive care, medications, and reasons to return as well as the importance of close follow-up was reviewed. Impression & Plan Medical Decision Making: Alyssa Aguillon is a 36 year old female who presents with cough, fever and left sided ear pain that has been going on for more than 1 week. She does have what appears to be a left otitis media. I believe this is most likely secondary to her viral illness with possible superimposed bacterial infection versus viral. She is otherwise well appearing with no signs concerning for pneumonia. I believe sheis safe for discharge. She is given a dose of Auralgan here and will be discharge with a course of Amoxicillin as well as Motrin and Flonase for sinus congestion. She is told to return with worsening or new symptoms or concerns. Disposition: home and follow up with PMD. Diagnosis: 1. Acute otitis media. 2. Acute URI. I, Yomaira Bronw, am serving as a Scribe on 05/07/2012 at 8:35 AM to personally document the services performed by Dr. Huffman based upon my observations and the provider's statements to me. Kendra Underwood 05/07/2012 [facility] EMERGENCY DEPARTMENT Matty Huffman MD 05/07/12 1209 ER NIPPER Etta Odonnell RN - 05/07/2012 8:22 AM CST Taking sudafed and advil ER NIPPER documented in this encounter Plan of Treatment Not on filedocumented as of this encounter Visit Diagnoses Diagnosis Acute otitis media - Primary Unspecified otitis media Acute URI Acute upper respiratory infections of un specified site documented in this encounter Administered Medications Inactive Administered Medications - up to 3 most recent administrations Medication Order MAR Action Action Date Dose Rate Site antipyrine-benzocaine (AURODEX) Given 05/07/2012 9:16 AM POWDER NIPPER 3 d rops Otic Solution 3 drop 3 drop, Right Ear, ONCE, On [place] 05/07/12 at 0900, For 1 dose ibuprofen (ADVIL,MOTRIN) tablet 600 mg Given 05/07/2012 9:15 AM POWDER NIPPER 600 mg 600 mg, Oral, ONCE, On [place] 05/07/12 at 0900, For 1 dose documented in this encounter Active and Recently Administered Medications Times are shown in POWDER NIPPER. Scheduled Medication Order 05/05/2012 05/06/2012 05/07/2012 antipyrine-benzocaine (AURODEX) Otic Solution 3 drop (COMPLETED) 0916 (Given - Provider: Merry Smith, DELLA) 3 drop, Right Ear, ONCE, [place] 05/07/12 at 0900, For 1 dose ibuprofen (ADVIL,MOTRIN) tablet 600 mg (COMPLETED) 914 (Given - Provider: Merry Smith RN) 600 mg, Oral, ONCE, [place] 05/07/12 at 0900, For 1 dose documented in this encounter Care Teams Loss Control Engineer Relationship Specialty Start Date End Date Félix Arteaga MD PCP - General 06/25/05 08/29/14 [facility] [address] [place] [address] documented as of this encounter
--- OUTSIDE RECORDS SUMMARY | 2022-02-09 01:03 | XMS_ITS | Encounter Summary ---
:1975 Author Organization [place] Address [address] [place] [address] Care Team Providers Name Role Phone Félix Arteaga MD Primary Care Provider + Encounter Details Date Type Department Care Team Description 11/19/2010 Operative Report [facility] Levon Bay, (Manager Analytical) [facility] Results [address] [place] [address] (Wo rk) Social History Tobacco Use Types [...] documented as of this encounter Progress Notes Levon Bay MD - 11/28/2010 1:59 PM CDT FINAL PREOPERATIVE DIAGNOSIS: Cervical dysplasia, vaginal bleeding following conization. POSTOPERATIVE DIAGNOSIS: Cervical dysplasia, vaginal bleeding following conization. PROCEDURE: Examination under anesthesia. COMPLICATIONS: None. ANESTHESIA: General LMA. FINDINGS: Courtney Lizama had a cone biopsy earlier in the day. Because of bleeding in the recovery room and an unsuccessful attempt at vaginal packing earlier in the day, I brought her back to the operating room, put her to sleep to see if I could find the area that was bleeding. There was extensive clot formation in the cervix. There was no active bleeding. I did remove the clot to make sure there was not any bleeding underneath the clot and there was none. A bimanual and rectovaginal examination were performed and were within normal limits. I then placed a small amount of Monsel's on the tip of a 2 inch vaginal packing and placed this in the cervical conization bed. I then packed the vagina very tightly with a 2 inch vaginal packing so that the tip of the gauze where the Monsel solution was was applied to the cervix. The lap, sponge and instrument count were correct. The patient tolerated the procedure well. Electronically signed on 11/28/2010 13:59 by LEVON BAY MD MT: [id number] Name: COURTNEY LIZAMA Account: [id number] : 1975 Procedure Date: 11/19/2010 Document: [id number] Levon Bay MD - 11/28/2010 1:58 PM CDT FINAL PREOPERATIVE DIAGNOSIS: SAMY 3. POSTOPERATIVE DIAGNOSIS: SAMY 3. PROCEDURE: Cone biopsy. COMPLICATIONS INVOLVED: None. FINDINGS: The cervix appeared grossly normal. Courtney Lizama had a positive endocervical curetting showing severe dysplasia in the office. Preoperative colposcopy was satisfactory and did not show anylesion on the exocervix. Bimanual examination under anesthesia was significant for a second-degree ut erine prolapse. The patient had had 7 children and there was a great deal of redundant vaginal tissue. The bimanual examination revealed a palpably normal cervix and bilaterally normal parametria. I did have difficulty obtaining hemostasis following this despite placing multiple sutures and despite myusual rollerball technique. For this reason, I did place a vaginal packing following the conization. PROCEDURE: The patient was taken to the operating room and placed into the supine position. After adequate general endotracheal anesthesia was administered, she was carefully placed into the semi-dorsal lithotomy position and was prepped and draped in the usual sterile fashion. I then observed the cervix colposcopically. The above findings were again noted. I then placed a single-tooth tenaculum on the anterior lip of the cervix. I then placed stay sutures at 3 and 9 o'clock with 2-0 Vicryl suture. With a #15 blade scalpel, I then circumferentially excised a fairly large conization. I took the depth of the cut down to approximately 2 cm. I then began using a rollerball technique with a Bovie on 100 hatfield on the coag to obtain hemostasis. This was unsuccessful. I then placed multiple [id number] sutures in the cervix to obtain hemostasis. This was indeed the case. I then observed the cervix for several minutes to ensure adequate hemostasis, and this was indeed the case. Because I had difficulty obtaining hemostasis, I decided to pack the vagina with 1 inch plain vaginal packing. The lap, sponge and instrument count were correct. The patient tolerated the procedure well. There were no complications. She was then awakened, extubated and taken to the postanesthesia recovery room in stable condition. Electronically signed on 11/28/2010 13:58 by LEVON BAY MD MT: [id number] Name: COURTNEY LIZAMA MRN: [id number] Account: [id number] : 1975 Procedure Date: 11/19/2010 Document: [id number] documented in this encounter Plan of Treatment Not on filedocumented as of this encounter Visit Diagnoses Not on filedocumented in this encounter Care Teams Trial Examiner Relationship Specialty Start Date End Date Félix Arteaga MD PCP - General 06/25/05 08/29/14 [facility] [address] [place] [address] documented as of this encounter
--- OUTSIDE RECORDS SUMMARY | 2022-02-09 01:03 | XMS_ITS | Encounter Summary ---
:1975 Author Organization [facility] Address [address] [place] [address] Care Team Providers Name Role Phone Félix Arteaga MD Primary Care Provider + Reason for Visit Reason Comments Abdominal Pain Encounter Details Date Type Department Care Team Description 09/21/2012 Emergency [facility] Kendall Delvalle D iarrhea (Primary Dx); [facility] Emergency Dep t Abdominal pain [address] [facility] [id number] [address] [facility] [phone] [place], [place] [address] (Wo rk) Social History [...] Sign Reading Time Taken Comments Blood Pressure 110/70 09/21/2012 10:45 PM CDT Pulse 109 09/21/2012 8:16 PM CDT Temperature 37.2 ??C (99 ??F) 09/21/2012 8:16 PM CDT Respiratory Rate 20 09/21/2012 8:16 PM CDT Oxygen Saturation 93% 09/21/2012 10:45 PM CDT Inhaled Oxygen Concentration - - Weight 62.1 kg (137 lb) 09/21/2012 8:16 PM CDT Height 162.6 cm (5' 4) 09/21/2012 8:16 PM CDT Body Mass Index 23.52 09/21/2012 8:16 PM CDT documented in this encounter Discharge Instructions Discharge InstructionsKendall Delvalle MD - 09/21/2012 10:55 PM CDT Discharge Instructions Abdominal Pain Abdominal [...] Signs of dehydration can be: o Your infant has had no wet diapers in 4-5 [...] directed by your doctor today. Before using roix-afk-bgibrbh medications, ask your doctor and make sure [...] or if there is anythingthat worries you. Discharge Instructions Diarrhea You have been seen today for diarrhea. This is usually caused by a virus, but some bacteria, parasites, medicines or other medical conditions can cause similar symptoms. At this time your doctor does not find that your vomiting and diarrhea is a sign of anything dangerous or life-threatening. However,sometimes the signs of serious illness do not show up right away. If you have new or worse symptoms,you may need to be seen again in the emergency department or by your primary doctor. Remember that serious problems like appendicitis can look like gastroenteritis at first. Return to the Emergency Department if: You keep throwing up and you are not able to keep liquids down. You feel you are getting dehydrated, such as being very thirsty, not urinating at least every 8-12 hours, or feeling faint or lightheaded. You develop a new fever, or your fever continues for more than 2 days. You have belly pain that seems worse than cramps, is in one spot, or is getting worse over time. You have blood in your vomit or in your diarrhea. You feel very weak You are not starting to improve within 24 hours of your visit here What can I do to help myself? The most important thing to do is to drink clear liquids. If you have been vomiting a lot, it is best to have only small, frequent sips of liquids. Drinking too much at once may cause more vomiting. If you are vomiting often, you must replace minerals, sodium and potassium lost with your illness. Pedi alyte?? and sports drinks can help you replace these minerals. You can also drink clear liquids suchas water, weak tea, apple juice, and 7-up. Avoid acid liquids (orange), caffeine (coffee) or alcohol. Do not drink milk until you no longer have diarrhea. After liquids are staying down, you may start eating mild foods. Soda crackers, toast, plain noodles, gelatin, applesauce and bananas are good first choices. Avoid foods that have acid, are spicy, fatty or fibrous (such as meats, coarse grains, vegetables). You may start eating these foods again in about 3 days when you are better. Sometimes treatment includes prescription medicine to prevent nausea and vomiting and to prevent diarrhea. If your doctor prescribes these for you, take them as directed. Nonprescription medicine is available for the treatment of diarrhea and can be very effective. If you use it, make sure you use the dose recommended on the package. Avoid Lomotil. Check with your healthcare provider before you use any medicine for diarrhea. Don???t take ibuprofen, or other nonsteroidal anti-inflammatory medicines without checking with your healthcare provider. Remember that you can always come back [...] mouth daily (with breakfast). fluticasone (FLONASE) 50 Printer 1-2 sprays 1 Package 0 05/0709/06/2013 MCG/ACT nasal spray into both nostrils daily. ibuprofen (ADVIL,MOTRIN) Take 3 tablets by 20 tablet 0 /07/201212/29/2013 200 MG tablet mouth every 8 hours as needed for pain. norgestrel-ethinyl Take 1 tablet by 1 Package 3 07/21/2012 09/06/2013 estradiol (LO/OVRAL, 28,) mouth daily. Take 2 0.3-30 MG-MCG per tablet tabs daily until bleeding stops and then take one tab until package is gone ondansetron (ZOFRAN ODT) Take 1 tablet by 10 tablet 0 09/2109/23/2012 4 MG disintegrating mouth every 8 hours tablet as needed for nausea for 3 days. oxyCODONE-acetaminophen Take 1-2 tablets by 15 tablet 0 09/23/2012 (PERCOCET) 5-325 MG per mouth every 4 hours tablet as needed for pain for 4 days. documented as of this encounter ED Notes Kendall Delvalle MD - 09/21/2012 8:32 PM CDT History Chief Complaint: Abdominal Pain HPI Alyssa Aguillon is a 37 year old female who presents with abdominal pain. The patient developed abdominal pain on 09/19/12, two days ago. She then developed diarrhea the next day on 09/20/12. She has not vomited or had diarrhea today. She currently is nauseated and has pain in her lower back that wraps around her right abdomen. She believes that she has a subjective fever that started today. She alsoreported body aches and lightheaded throughout the day. She denies hematuria, dysuria, vaginal discharge or bleeding. She also denies blood in emesis or stool. The patient has no further medical concerns at this time. Allergies: No Known Allergies Medications: Ferrous sulfate Lo/ovral Flonase Advil Tylenol Past Medical History: Streptococcal sore throat Abnormal pap smear Menorrhagia Ovarian cyst Anemia Past Surgical History: Colposcopy cervix Family / Social History: History reviewed. No pertinent family history. Marital Status: Single [1] Never smoker Rare alcohol use Review of Systems Gastrointestinal: Positive for nausea, abdominal pain and diarrhea (no diarrhea today). Negative forvomiting and blood in stool. Genitourinary: Negative for dysuria, hematuria, vaginal bleeding and vaginal discharge. Neurological: Positive for light-headedness. All other systems reviewed and are negative. Physical Exam First Vitals: BP: 131/91 mmHg Pulse: 109 Temp: 99 ??F (37.2 ??C) Resp: 20 Height: 162.6 cm (5' 4) Weight: 62.143 kg (137 lb) SpO2: 100 % Physical Exam Constitutional: Alert, attentive; moderate pain distress HENT: Nose: Nose normal. Mouth/Throat: Oropharynx is clear and moist and mucous membranes are normal. Eyes: EOM are normal. Pupils are equal, round, and reactive to light. CV: regular rate and rhythm; no murmurs, rubs or gallups Chest: Effort normal and breath sounds normal. GI: suprapubic and RLQ tenderness with deep palpation, no guarding, rebound or distension. MSK: Normal range of motion. Neurological: Alert, attentive Skin: Skin is warm and dry. Emergency Department Course Imaging: CT abdomen: 1. No bowel obstruction or inflammation. 2. The urinary bladder is very distended but otherwise appears normal. 3. Small amount of free pelvic fluid, within normal limits, per radiology. Laboratory: CBC: neutrophils 82.1 (high), lymphocytes 10.2 (low), HGB 11.0 (low) o/w WNL (WBC 10.1, PLT 254) CMP: bilirubin total 1.5 (high), albumin 3.8 (low) o/w WNL (creatinine 0.59) UA: pH 8.0 (high), leukocyte esterase small (abnormal), bacteria few (abnormal), squamous epithelial9 (high), mucous urine present (abnormal) HCG: negative Interventions: Tylenol 1000 mg PO Morphine 4 mg IV injection x2 NS 1 L IV bolus x2 Emergency Department Course: I reviewed the patient's old medical records and performed a thorough exam of the patient. The patient was sent for a CT abdomen with contrast while in the emergency department, findings above. IV inserted and blood drawn. Rechecked the patient, findings and plan explained to the patient. Patient discharged home, status improved, with instructions regarding supportive care, medications, and reasons to return as well as the importance of close follow-up was reviewed. Impression & Plan Medical Decision Making: This is a 37 year old female who presents for evaluation of abdominal or lower back cramping and diarrhea. She describes three days of this as well as myalgias and subjective fevers. She denies hematochezia. The differential diagnosis includes acute diarrhea illness, colitis, diverticulitis, c. diff colitis, among others. Given her persistent symptoms beyond what she has previously experienced beyondfood poisoning diarrhea, a CT scan was performed this is unremarkable. She is not and her urine sample is unremarkable as well. On recheck she was feeling better on fluids and with supportive measures, I discussed at length the unclear nature of her symptoms and the need to follow up with herPMD in 2-3 days. Her abdominal pain has resolved this time, she has no recent antibiotic use. I willprescribe Percocet and Zofran for supportive measures and advise her to return immediately for reoccurrence, worsening symptoms, fever or vomiting. Diagnosis: 1. Diarrhea 2. Abdominal pain NOS I, Darryl Knight, am serving as a scribe at 8:32 PM on 09/21/2012 to document services personally performed by Dr. Drummnod, based on my observations and the provider's statements to me. Darryl Sinclair 09/21/2012 [facility] EMERGENCY DEPARTMENT Kendall Delvalle MD 09/21/12 [id number] Merry Smith RN - 09/21/2012 8:18 PM CDT Abdominal pain that started on Friday, diarrhea on Friday. Pain is wrapping from her lower back onthe right to abdomen. Patient is feeling bloated. ABC's intact. documented in this encounter Miscellaneous Notes Initial Assessments - Abstract, Provider - 09/22/2012 7:32 PM CDT documented in this encounter Plan of Treatment Not on filedocumented as of this encounter Procedures Procedure Name Priority Date/Time Associated Comments Diagnosis CT ABDOMEN PELVIS W STAT 09/21/2012 9:52 PM Re sults for this CONTRAST CDT procedure are i n the results section. CBC WITH PLATELETS & STAT 09/21/2012 9:00 PM R esults for this DIFFERENTIAL CDT procedure are i n the results section. COMPREHENSIVE STAT 09/21/2012 9:00 PM Results for this METABOLIC PANEL CDT procedure ar e in the results section. HCG QUALITATIVE URINE STAT 09/21/2012 8:35 PM Results for this CDT procedure are i n the results section. ROUTINE UA WITH STAT 09/21/2012 8:35 PM Result s for this MICROSCOPIC CDT procedure are i n the results section. documented in this encounter Results CT Abdomen Pelvis w Contrast (09/21/2012 9:52 PM CDT) Anatomical Region Laterality Modality Abdomen/Pelvis, SUBRAD CT BODY, UMP CT ABDOMEN PELVIS Computed Tomography Specimen (Source) Anatomical Collection Method Collection Time Re ceived Time Location / / Volume Laterality 09/21/2012 9:52 PM CDT Impressions 09/21/2012 10:30 PM CDT IMPRESSION: 1. No bowel obstruction or inflammation. 2. The urinary bladder is very distended but otherwise appears normal. 3. Small amount of free pelvic fluid, wi thin normal limits. NAGA ANGULO MD Narrative 09/21/2012 10:[address] ABDOMEN AND PELVIS WITH CONTRAST ? 9:52 PM HISTORY: Low abdominal pain and diarrhea . TECHNIQUE: ??CT abdomen and pelvis with oral and intravenous contrast. 77 mL Isovue-320. COMPARISON: ??12/14/2009. FINDINGS: Abdomen: ??The lung bases are unremarkab le. The liver, spleen, gallbladder, pancreas, adrenal glands an d kidneys are normal in appearance. There is no abdominal or pel claudio lymph node enlargement. Pelvis: The uterus is retroverted. No ad nexal mass. There is a small amount of free fluid in the pelvis. Wale l appears normal without obstruction or inflammation. No free int raperitoneal gas. Small periumbilical hernia containing fat. The urinary bladder is very distended but otherwise appears normal. Procedure Note Naga Angulo MD - 09/21/2012Form atting of this note might be different from the original. CT ABDOMEN AND PELVIS WITH CONTRAST 09/21 9:52 PM HISTORY: Low abdominal pain and diarrhea . TECHNIQUE: CT abdomen and pelvis with or al and intravenous contrast. 77 mL Isovue-320. COMPARISON: 12/14/2009. FINDINGS: Abdomen: The lung bases are unremarkable . The liver, spleen, gallbladder, pancreas, adrenal glands an d kidneys are normal in appearance. There is no abdominal or pel claudio lymph node enlargement. Pelvis: The uterus is retroverted. No ad nexal mass. There is a small amount of free fluid in the pelvis. Wale l appears normal without obstruction or inflammation. No free int raperitoneal gas. Small periumbilical hernia containing fat. The urinary bladder is very distended but otherwise appears normal. IMPRESSION IMPRESSION: 1. No bowel obstruction or inflammation. 2. The urinary bladder is very distended but otherwise appears normal. 3. Small amount of free pelvic fluid, wi thin normal limits. NAGA ANGULO MD Kendall Delvalle MD IM CT ORDERABLES (ABNORMAL) Comprehensive metabolic panel (09/21/2012 9:00 PM CDT) Analysis Performed At Patho logist Time Signature Sodium 138 133 - 144 [place] mmol/L [facility] Potassium 3.6 3.4 - 5.3 [place] mmol/L [facility] Chloride 99 94 - 109 [place] mmol/L [facility] Carbon Dioxide 26 20 - 32 [place] mmol/L [facility] Anion Gap 13.4 6 - 17 [place] mmol/L [facility] Glucose 79 60 - 99 [place] mg/dL [facility] Urea Nitrogen 8 5 - 24 [place] mg/dL [facility] Creatinine 0.59 0.52 - [facility]/dL [facility] GFR Estimate >90 >60 [place] mL/min/[address] [place] [address] LAB GFR Estimate If >90 >60 [place] Black mL/min/1.[address] [place] [address] LAB Calcium 8.5 8.5 - 10.4 [place] mg/dL [facility] Bilirubin Total 1.5 (H) 0.2 - 1.3 [place] mg/dL [facility] Albumin 3.8 (L) 3.9 - 5.1 [place] g/dL [facility] Protein Total 7.5 6.8 - 8.8 [place] g/dL [facility] Alkaline 51 40 - 150 [place] Phosphatase U/L [facility] ALT 14 0 - 50 U/L [facility] AST 27 0 - 45 U/L [facility] Specimen Anatomical Collection Method Collection Time Receive d Time (Source) Location / / Volume Laterality Blood specimen 09/21/2012 9:00 PM 013 9:10 (specimen) CDT PM CDT Kendall Delvalle MD LAB - BLOOD ORDERABLES Performing Organization Address City/State/ZIP Code Phon e Number [facility] [address], [place] [address] [facility] (ABNORMAL) CBC + differential (09/21/2012 9:00 PM CDT) Patholo gist Method Time Signature WBC 10.1 4.0 - [place] 11.0 [facility] 10e9/L [facility] RBC Count 3.88 3.8 - 5.2 [place] 10e12/L [facility] Hemoglobin 11.0 (L) 11.7 - [place] 15.7 g/dL [facility] Hematocrit 33.7 (L) 35.0 - [place] 47.0 % [facility] MCV 87 78 - 100 [place] fl [facility] MCH 28.4 26.5 - [place] 33.0 pg [facility] MCHC 32.6 31.5 - [place] 36.5 g/dL [facility] RDW 13.3 10.0 - [place] 15.0 % [facility] Platelet Count 254 150 - 450 [place] 10e9[facility] Diff Method Automated [facility] % Neutrophils 82.1 (H) 40 - 75 % [facility] % Lymphocytes 10.2 (L) 20 - 48 % [facility] % Monocytes 7.1 0 - 12 % [facility] % Eosinophils 0.2 0 - 6 % [facility] % Basophils 0.2 0 - 2 % [facility] % Immature 0.2 0 - 0.4 % [place] Granulocytes [facility] Absolute 8.3 1.6 - 8.3 [place] Neutrophil 10e9/L [facility] Absolute 1.0 0.8 - 5.3 [place] Lymphocytes 10e9/[facility] Absolute 0.7 0.0 - 1.3 [place] Monocytes 10e9/[facility] Absolute 0.0 0.0 - 0.7 [place] Eosinophils 10e9/L [facility] Absolute 0.0 0.0 - 0.2 [place] Basophils 10e9/L [facility] Abs Immature 0.0 0 - 0.03 [place] Granulocytes 10e9/L [facility] Specimen Anatomical Collection Method Collection Time Receive d Time (Source) Location / / Volume Laterality Blood specimen 09/21/2012 9:00 PM 013 9:10 (specimen) CDT PM CDT Kendall Delvlale MD LAB - BLOOD ORDERABLES Performing Organization Address City/State/ZIP Code Phon e Number [facility] [address], [place] [address] [facility] HCG qualitative urine (09/21/2012 8:35 PM CDT) P athologist Signature HCG Qual Urine Negative NEG [facility] Specimen Anatomical Collection Method Collection Time Receive d Time (Source) Location / / Volume Laterality Urine specimen 09/21/2012 8:35 PM 013 8:40 (specimen) CDT PM CDT Kendall Delvalle MD LAB - URINE ORDERABLES Performing Organization Address City/State/ZIP Code Phon e Number [facility] [address] [place], [place] [address] [facility] (ABNORMAL) Routine UA with microscopic (09/21/2012 8:35 PM CDT) Patholo gist Method Time Signature Color Urine Yellow [facility] Appearance Urine Slightly [place] Cloudy [facility] Glucose Urine Negative NEG mg/dL [facility] Bilirubin Urine Negative NEG [facility] Ketones Urine Negative NEG mg/dL [facility] Specific [place] 1.008 1.003 - [place] Urine 1.035 [facility] Blood Urine Negative NEG [facility] pH Urine 8.0 (H) 5.0 - 7.0 [place] pH [facility] Protein Albumin Negative NEG mg/dL [facility] Urobilinogen Normal 0.0 - 2.0 [place] mg/dL mg/dL [facility] Nitrite Urine Negative NEG [facility] Leukocyte Small (A) NEG [place] Esterase [facility] Source Midstream [facility] WBC Urine 2 0 - 2 [place] /[facility] RBC Urine 1 0 - 2 [facility] Bacteria Urine Few (A) NEG /HPF [facility] Squamous 9 (H) 0 - 1 [place] Epithelial /HPF /HPF [facility] Transitional Epi <1 0 - 1 [facility] Mucous Urine Present (A) NEG /LPF [facility] Specimen Anatomical Collection Method Collection Time Receive d Time (Source) Location / / Volume Laterality Urine specimen 09/21/2012 8:35 PM 013 8:40 (specimen) CDT PM CDT Kendall Delvalle MD LAB - URINE ORDERABLES Performing Organization Address City/State/ZIP Code Phon e Number [facility] [address] [place], [place] [address] [facility] documented in this encounter Visit Diagnoses Diagnosis Diarrhea - Primary Abdominal pain Abdominal pain, unspecified site documented in this encounter Administered Medications Inactive Administered Medications - up to 3 most recent administrations Medication Order MAR Action Action Date Dose Rate Site acetaminophen (TYLENOL) tablet Given 09/21/2012 10:06 PM CDT 1,0 00 mg 1,000 mg 1,000 mg, Oral, EVERY 4 HOURS PRN, fever, Starting on Fri09/21/12 at 2200, Maximum acetaminophen dose from all sources = 75 mg/kg/day not to exceed 4 gram iohexol (OMNIPAQUE) 140 mg/mL solution 2 5 mL Given 09/21/2012 9:30 PM CDT 25 mLs 25 mL, Oral, EVERY 30 MIN, First dose on Fri09/21/12 at 2044, For 2 doses Given 09/21/2012 8:56 PM CDT 25 mLs ioversol (OPTIRAY 320) iv solution 68% 1 00 mL Given 09/21/2012 9:48 PM CDT 77 mLs 100 mL, Intravenous, ONCE, On Fri09/21/12 at 2145, For 1 dose morphine (PF) injection 4 mg Given 09/21/2012 10:06 PM CDT 4 mg 4 mg, Intravenous, EVERY 15 MIN PRN, moderate to severe pain, Starting on Fri09/21/12 at 2040, For 3 doses Given 09/21/2012 8:55 PM CDT 4 mg sodium chloride 0.9 % BOLUS 1,000 mL New Bag 09/21/2012 8:56 PM CDT 1,000 mLs Intravenous, 1,000 mL, ONCE, On Fri09/21/12 at 204, For 1 dose sodium chloride 0.9 % BOLUS 1,000 mL New Bag 09/21/2012 9:48 PM CDT 56 mLs Intravenous, 1,000 mL, ONCE, On Fri09/21/12 at 2145, For 1 dose documented in this encounter Active and Recently Administered Medications Times are shown in CDT. Scheduled Medication Order 09/19/2012 09/20/2012 09/21/2012 iohexol (OMNIPAQUE) 140 mg/mL solution 25 mL (COMPLETED) 2055 (Given - Provider: Valerie Mirza RN)2114 (Due)2129 (Given - Provider: Valerie Mirza RN) 25 mL, Oral, EVERY 30 MIN, First dose on 09/21/12 at 2045, Fo r 2 doses ioversol (OPTIRAY 320) iv solution 68% 100 mL (COMPLETED) 2147 (Given - Provider: Yumiko Pop - Comment: 27) 100 mL, Intravenous, ONCE, Fri09/21/12 at 214, For 1 dose sodium chloride 0.9 % BOLUS 1,000 mL (COMPLETED) 2055 (New Bag - Provider: Valerie Mirza RN)2157 (Stopped - Provider: Valerie Mirza RN) Intravenous, 1,000 mL, ONCE, Fri09/21/12 at 2044, For 1 dose sodium chloride 0.9 % BOLUS 1,000 mL (COMPLETED) 2147 (New Bag - Provider: Yumiko Pop - Comment: bulk)2148 (Stopped - Provider: Yumiko Pop) Intravenous, 1,000 mL, ONCE, Fri09/21/12 at 2144, For 1 dose PRN Medication Order 09/19/2012 09/20/2012 09/21/2012 acetaminophen (TYLENOL) tablet 1,000 mg (CANCELED) 2205 (Given - Provider: Valerie Mirza RN) 1,000 mg, Oral, EVERY 4 HOURS PRN, fever , Starting Fri09/21/12 at 2200, Maximum acetaminophen dose from all sources = 75 mg/kg/day not to exceed 4 gram morphine (PF) injection 4 mg (CANCELED) 2054 (Given - Provider: Valerie Mirza RN)2205 (Given - Provider: Valerie Mirza RN) 4 mg, Intravenous, EVERY 15 MIN PRN, mod erate to severe pain, Starting Fri09/21/12 at 2040, For 3 doses documented in this encounter Care Teams [employer] Interleafer Relationship Specialty Start Date End Date Félix Arteaga MD PCP - General 06/25/05 08/29/14 [facility] [address] [place] [address] documented as of this encounter
--- OUTSIDE RECORDS SUMMARY | 2022-02-09 01:03 | XMS_ITS | Encounter Summary ---
:1975 Author Organization [place] Address [address] [place] [address] Care Team Providers Name Role Phone Félix Arteaga MD Primary Care Provider + Encounter Details Date Type Department Care Team Description 11/19/2010 Hospital Laboratory [facility] [place], [facility] Results [address], [address] [place], [place] [id number] (Wo rk) Social History Tobacco Use Types [...] Procedure Name Priority Date/Time Associated Comments Diagnosis INR Routine 11/19/2010 2:50 PM Results f or this CDT procedure are i n the results section. PARTIAL THROMBOPLASTIN Routine 11/19/2010 2:50 PM Results for this TIME CDT procedure are i n the results section. HEMOGLOBIN Routine 11/19/2010 2:50 PM Results f or this CDT procedure are i n the results section. ABO/RH TYPE AND SCREEN Routine 11/19/2010 2:50 PM Results for this CDT procedure are i n the results section. HEMOGLOBIN Routine 11/19/2010 1:00 PM Results f or this CDT procedure are i n the results section. HCG QUALITATIVE URINE Routine 11/19/2010 6:45 AM Results for this CDT procedure are i n the results section. documented in this encounter Results ABO/Rh type and screen (11/19/2010 2:50 PM CDT) Analysis Performed At Patho logist Time Signature ABO O [facility] RH(D) Pos [facility] Antibody Neg [place] Screen [facility] Specimen 11/22/2010 [place] Expires [facility] Specimen Anatomical Collection Method Collection Time Receive d Time (Source) Location / / Volume Laterality 11/19/2010 2:50 PM 1 3:01 CDT PM CDT Janes Bay MD LAB - BLOOD BANK TEST ORDER Performing Organization Address [facility]/ZIP [facility] Phon e Number [facility] [address] [phone] [facility] Partial thromboplastin time (11/19/2010 2:50 PM CDT) P athologist Signature PTT 32 22 - [address] [facility] Specimen Anatomical Collection Method Collection Time Receive d Time (Source) Location / / Volume Laterality 11/19/2010 2:50 PM 1 3:01 CDT PM CDT Janes Bay MD LAB - BLOOD ORDERABLES Performing Organization Address City/[facility]/ZIP Code Phon e Number [facility] [address] [phone] [facility] INR (11/19/2010 2:50 PM CDT) P athologist Signature INR 1.10 0.86 - 1.14 [facility] Specimen Anatomical Collection Method Collection Time Receive d Time (Source) Location / / Volume Laterality 11/19/2010 2:50 PM 1 3:01 CDT PM CDT Janes Bay MD LAB - BLOOD ORDERABLES Performing Organization Address City/[facility]/ZIP Code Phon e Number [facility] [address] [place] [address] [facility] (ABNORMAL) Hemoglobin (11/19/2010 2:50 PM CDT) P athologist Signature Hemoglobin 9.6 (L) 11.7 - 15.7 [place] g/dL [facility] Specimen Anatomical Collection Method Collection Time Receive d Time (Source) Location / / Volume Laterality 11/19/2010 2:50 PM 1 3:01 CDT PM CDT Janes Bay MD LAB - BLOOD ORDERABLES Performing Organization Address City/State/ZIP Code Phon e Number [facility] [address] [phone] [facility] (ABNORMAL) Hemoglobin (11/19/2010 1:00 PM CDT) athologist Signature Hemoglobin 9.8 (L) 11.7 - 15.7 [place] g/dL [facility] Specimen Anatomical Collection Method Collection Time Receive d Time (Source) Location / / Volume Laterality 11/19/2010 1:00 PM 1 1:07 CDT PM CDT Janes Bay MD LAB - BLOOD ORDERABLES Performing Organization Address City/State/ZIP Code Phon e Number [facility] [address] [phone] [facility] HCG qualitative urine (11/19/2010 6:45 AM CDT) [facility] gist Method Time Signature HCG Qual Negative NEG [place] Urine Performed at Point of Care [facility] Specimen Anatomical Collection Method Collection Time Receive d Time (Source) Location / / Volume Laterality 11/19/2010 6:45 AM 1 8:29 CDT AM CDT Janes Bay MD LAB - URINE ORDERABLES Performing Organization Address City/State/ZIP Code Phon e Number [facility] [address] [phone] [facility] documented in this encounter Visit Diagnoses Not on filedocumented in this encounter Care Teams Bingo Cashier Relationship Specialty Start Date End Date Félix Arteaga MD PCP - General 06/25/05 08/29/14 [facility] [address] [place] [address] documented as of this encounter
--- OUTSIDE RECORDS SUMMARY | 2022-02-09 01:03 | XMS_ITS | Encounter Summary ---
:1975 Author Organization [place] Address [address] [place] [address] Care Team Providers Name Role Phone Félix Arteaga MD Primary Care Provider + Reason for Visit Reason Comments Lesion on nose - scabbing up. Right eye is a little swollen and painful, hudson x 1 week Pt also experiencing really bad chills, even on these really hot days. Anemia weak and dizzy. Pt was suppo sed to have iron levels checked on Friday - wondering if she can do it t leslie as long as she is here? Encounter Details Date Type Department Care Team Description 12/07/2010 Office Visit [facility] Willard Green MD Menorrhagia (Primary Dx); Clinic [place] [address] [address] [place] [address] [place], [place] [address] [phone] Social History Tobacco Use Types Packs/Day Years [...] Sign Reading Time Taken Comments Blood Pressure 132/77 12/07/2010 9:34 AM CDT Pulse 79 12/07/2010 9:34 AM CDT Temperature 36.3 ??C (97.3 ??F) 12/07/2010 9:34 AM CDT Respiratory Rate 14 12/07/2010 9:34 AM CDT Oxygen Saturation - - Inhaled Oxygen Concentration - - Weight 65.3 kg (144 lb) 12/07/2010 9:34 AM CDT Height 161.3 cm (5' 3.5) 12/07/2010 9:34 AM CDT Body Mass Index 25.11 12/07/2010 9:34 AM CDT documented in this encounter Progress Notes Willard Green MD - 12/07/2010 11:07 AM CDT SUBJECTIVE: Alyssa Aguillon 35 year old female presents for f/u of menorrhagia as well as [id number] scratch on the tip of the nose. She has had abnormal precancerous uterine polyps removed, followed by Dr. Bay on referral from [facility]. She has had hx of menorrhagia HIstories Updated through 12-07-2010: Past Medical History Diagnosis Date ??? Streptococcal sore throat required hospitalization 1 yr ago ??? Abnormal Pap smear 8 yrs ago, 09/2010 [facility] Past Surgical History Procedure Date ??? Colposcopy cervix, loop electrode biopsy, combined years ago, 8 years ago LEEP Family History Problem Relation Age of Onset ??? Family History Negative Mother ??? Family History Negative Father ??? Family History Negative Sister 2 ??? Breast CA No family hx of ??? Colon CA No family hx of @OB@ History Social History ??? Marital Status: Single Spouse Name: N/A Number of Children: N/A ??? Years of Education: N/A Occupational History ??? Not on file. Social History Main Topics ??? Smoking status: Never Smoker ??? Smokeless tobacco: Never Used ??? Alcohol Use: Yes rare ??? Drug Use: No ??? Sexually Active: Yes -- Male partner(s) using nothing for contraception Other Topics Concern ??? Not on file Social History Narrative ??? No narrative on file Current outpatient prescriptions Medication Sig ??? Ferrous Sulfate Dried (SLOW IRON PO) Take by mouth daily. ??? acetaminophen (TYLENOL) 500 MG tablet Take 1-2 tablets by mouth every 6 hours as needed. ??? ferrous gluconate (FERGON) 324 (38 FE) MG tablet Take 1 tablet by mouth daily (with breakfast). ??? cephALEXin (KEFLEX) 500 MG capsule Take 1 capsule by mouth 2 times daily for 10 days. Allergies as of 12/07/2010 ??? (No Known Allergies) ROS: C: NEGATIVE for fever, chills, change in weight,I: NEGATIVE for worrisome rashes, moles or lesions,E/M: NEGATIVE for ear, mouth and throat problems,R: NEGATIVE for significant cough or SOB,CV: NEGATIVEfor chest pain, palpitations or peripheral edema,GI: NEGATIVE for nausea, abdominal pain, heartburn,or change in bowel habits,: NEGATIVE for frequency, dysuria, or hematuria OBJECTIVE/EXAM: GENERAL APPEARANCE: healthy, alert and no distress NECK: no adenopathy, no asymmetry, masses, or scars and thyroid normal to palpation RESP: lungs clear to auscultation - no rales, rhonchi or wheezes CV: regular rates and rhythm, normal S1 S2, no S3 or S4 and no murmur, click or rub ABDOMEN: soft, nontender, without hepatosplenomegaly or masses and bowel sounds normal SKIN: [id number] scab on tip of right lateral nose. MIld induration and swelling noted ASSESSMENT/PLAN: 1- Menorrhagia, intolerant to OTC SLo-Fe. After d/w pt regarding risks and benefits as well as possible side effects, drug interactions and adverse reactions, pt accepts prescription for fe-gluconate Check CBC and retic count today. SHe is quite fatigued and gets HUDSON and dizziness, likely from her anemia. If further symptomatic, would consider advocated in 2 unit transfusion, though I do not think she is there yet 2- Cellulittis of the nose. After d/w pt regarding risks and benefits as well as possible side effects, drug interactions and adverse reactions, pt accepts prescription for keflex per hs orders. documented in this encounter Nursing Notes 12/07/2010 9:15 AM CDT >> TERESA CASTRO FriDec 07, 2010 9:37 AM Patient presents with: Lesion - on nose - scabbing up. Right eye is a little swollen and painful, hudson x 1 week Pt also experiencing really bad chills, even on these really hot days. Anemia - weak and dizzy. Pt was supposed to have iron levels checked on Friday - wondering if she can do it today as long as she is here? Initial BP 132/77 Pulse 79 Temp(Src) 97.3 ??F (36.3 ??C) (Oral) Resp 14 Ht 5' 3.5 (1.613 m) Wt 144 lb (65.318 kg) BMI 25.11 kg/m2 Estimated Body mass index is 25.11 kg/(m^2) as calculated from the following: Height as of this encounter: 5' 3.5(1.613 m). Weight as of this encounter: 144 lb(65.318 kg).. BP completed using cuff size regular HEALTH MAINTENANCE REVIEWED. Teresa Castro CMA documented in this encounter Plan of Treatment Not on filedocumented as of this encounter Procedures Procedure Name Priority Date/Time Associated Diagnosis Comme nts RETICULOCYTE COUNT Routine 12/07/2010 10:21 AM Menorrhagia Re sults for this CDT procedure are i n the results section. CBC WITH PLATELETS Routine 12/07/2010 10:21 AM Menorrhagia Re sults for this CDT procedure are i n the results section. documented in this encounter Results (ABNORMAL) CBC WITH PLATELETS (12/07/2010 10:21 AM CDT) athologist Signature [facility] 4.7 4.0 - 11.0 [facility] RBC Count 3.24 (L) 3.8 - 5.2 [facility] 10[facility]L [facility] Hemoglobin 8.5 (L) 11.7 - 15.7 [place] [facility] g/dL [facility] Comment: Reviewed: OK with previous Results confirmed by repeat test Hematocrit 27.2 (L) 35.0 - 47.0 % [facility] MCV 84 78 - 100 fl [facility] MCH 26.2 (L) 26.5 - 33.0 pg [facility] MCHC 31.3 (L) 31.5 - 36.5 g/dL [facility] RDW 13.6 10.0 - 15.0 % [facility] Platelet Count 286 150 - 450 10e9/L [facility] Specimen Anatomical Collection Method Collection Time Receive d Time (Source) Location / / Volume Laterality Blood specimen 12/07/2010 10:21 1 (specimen) AM CDT 10:24 AM CDT Willard Green MD LAB - BLOOD ORDERABLES Performing Organization Address City/[facility]/ZIP Code Phon e Number [facility] [phone] [place] [phone] [facility] (ABNORMAL) RETICULOCYTE COUNT (12/07/2010 10:21 AM CDT) [facility] gist Method Time Signature % Retic 2.2 (H) 0.5 - 2.0 [facility] Absolute 72.5 25 - 95 [place] Retic 10e9/L [facility] Retic Method Automated [facility] Specimen Anatomical Collection Method Collection Time Receive d Time (Source) Location / / Volume Laterality Blood specimen 12/07/2010 10:21 1 (specimen) AM CDT 10:24 AM CDT Willard Green MD LAB - BLOOD ORDERABLES Performing Organization Address City/[facility]/ZIP Code Phon e Number [facility] [address], [place] [address] [facility] documented in this encounter Visit Diagnoses Diagnosis Menorrhagia - Primary Excessive or frequent menstruation Cellulitis Cellulitis and abscess of unspecified si te documented in this encounter Care Teams Neon Molder Relationship Specialty Start Date End Date Félix Arteaga MD PCP - General 06/25/05 08/29/14 [facility] [address] [place] [address] documented as of this encounter
--- OUTSIDE RECORDS SUMMARY | 2022-02-09 01:03 | XMS_ITS | Encounter Summary ---
:1975 Author Organization [place] Address [address] [place] [address] Care Team Providers Name Role Phone Félix Arteaga MD Primary Care Provider + Reason for Visit Reason Comments ER F/U abd pain, dizziness, diarrhe a, Pharyngitis woke up this am with sore th roat, concerns for strep Encounter Details Date Type Department Care Team Description 09/23/2012 Office Visit [facility] Fallon Brar Pharyngiti s (Primary Dx); Clinic GhentWai Tate MD Abdominal pain; [address] [facility] Streptococcal pharyngitis; [place], [place] [facility] UTI (urinary tract infection) [id number] [facility] [phone] [place], [place] [id number] Social History Tobacco Use Types Packs/Day Years [...] Sign Reading Time Taken Comments Blood Pressure 102/64 09/23/2012 10:13 AM CDT Pulse 87 09/23/2012 10:13 AM CDT Temperature 36.8 ??C (98.3 ??F) 09/23/2012 10:13 AM CDT Respiratory Rate 18 09/23/2012 10:13 AM CDT Oxygen Saturation - - Inhaled Oxygen Concentration - - Weight 61.7 kg (136 lb) 09/23/2012 10:13 AM CDT Height - - Body Mass Index 23.34 09/21/2012 8:16 PM CDT documented in this encounter Patient Instructions Patient InstructionsMoon, Fallon Tate MD - 09/23/2012 11:12 AM CDT Images from the original note were not included. Home Back AA SP fr pl RU CH PHARYNGITIS: STREP [Confirmed] Your test for strep throat was positive. Strep throat is a contagious illness. It is spread by coughing, kissing or by touching others after touching your mouth or nose. Symptoms include throat pain which is worse with swallowing, aching all over, headache and fever. You will be treated with an antibiotic which should make you start to feel better within 1-2 days. HOME CARE: ?? Rest at home and drink plenty of fluids to avoid dehydration. ?? No school or work for the first two days on antibiotics. You will not be contagious after this time and if you are feeling better, you can return to school or work. ?? Take your antibiotics for a full 10 days, even if you feel better after the first few days of treatment. This is very important to prevent heart or kidney disease that can result as a complication of untreated strep throat infection. ?? Children: Use acetaminophen (Tylenol) for fever, fussiness or discomfort. In infants over six months of age, you may use ibuprofen (Children's Motrin) instead of Tylenol. [NOTE: If your child has chronic liver or kidney disease or ever had a stomach ulcer or GI bleeding, talk with your doctor before using these medicines.] (Aspirin should never be used in anyone under 18 years of age who is ill with a fever. It may cause severe liver damage.)Adults: You may use acetaminophen (Tylenol) or ibuprofen (Motrin, Advil) to control pain or fever, unless another medicine was prescribed for this. [NOTE: If you have chronic liver or kidney disease or ever had a stomach ulcer or GI bleeding, talk with yourdoctor before using these medicines.] ?? Throat lozenges or sprays (Chloraseptic and others) will reduce pain. Gargling with warm salt water will also reduce throat pain. Dissolve 1/2 teaspoon of salt in 1 glass of warm water. This is especially useful just before meals. FOLLOW UP with your doctor or as directed by our staff if you are not improving over the next week. GET PROMPT MEDICAL ATTENTION if any of the following occur: ?? Fever of 100.4??F (38??C) oral or higher, not better with fever medication ?? New or worsening ear pain, sinus pain or headache ?? Painful lumps in the back of your neck ?? Unable to swallow liquids or open your mouth wide due to throat pain ?? Trouble breathing or noisy breathing ?? Muffled voice ?? New rash ?? [phone] [facility], [address] [place] [address]. All rights reserved. This information is not intended as a substitute for professional medical care. Always follow your healthcare professional's instructions.Home Back SP PO Urinary Tract Infections in Women Urinary tract [...] necessary, additional treatment may be started. ?? [phone] [facility], [address] [place] [address], [place] [id number]. All rights reserved. This information is not intended as a substitute for professional medical care. Always follow your healthcare professional's instructions. documented in this encounter Progress Notes Fallon Brar MD - 09/23/2012 10:12 AM CDT SUBJECTIVE: Alyssa Aguillon is a 37 year old female who presents to clinic today for the following health issues: 1. ED follow up for abdominal pain: States she is still having abdominal pain. Lower abdomen withoutVomiting. Has had some diarrhea that has persisted. She mentions that she had urinary incontinence when she was being driven home from the ED. She feelsthis may have been related to the morphine that she got in the ED. 2. Sore throat: Has had sore throat for the past day. No known strep exposure. ED/UC Followup: Facility: [facility] Date of visit: 09/21/12 Reason for visit: diarrhea, abd pain Current Status: still having black out and dizziness, no improvement from last Sat Problem list and histories reviewed & adjusted, as indicated. Additional history: as documented ROS: C: NEGATIVE for fever, chills, change in weight I: NEGATIVE for worrisome rashes, moles or lesions E: NEGATIVE for vision changes or irritation E/M: NEGATIVE for ear, mouth POSITIVE for sore throat problems R: NEGATIVE for significant cough or SOB CV: NEGATIVE for chest pain, palpitations or peripheral edema GI: POSITIVE for abdominal pain and diarrhea that has persisted since the ED visit. female: POSITIVE for frequency of urination. M: NEGATIVE for significant arthralgias or myalgia N: NEGATIVE for weakness, dizziness or paresthesias E: NEGATIVE for temperature intolerance, skin/hair changes H: NEGATIVE for bleeding problems P: NEGATIVE for changes in mood or affect Problem list, Medication list, Allergies, and Medical/Social/Surgical histories reviewed in [facility] andupdated as appropriate. OBJECTIVE: BP 102/64 Pulse 87 Temp 98.3 ??F (36.8 ??C) (Oral) Resp 18 Wt 136 lb (61.689 kg) There is noheight on file to calculate BMI. GENERAL: healthy, alert and no distress NECK: no tenderness, no adenopathy, no asymmetry, no masses, no stiffness; thyroid- normal to palpation RESP: lungs clear to auscultation - no rales, no rhonchi, no wheezes CV: regular rates and rhythm, normal S1 S2, no S3 or S4 and no murmur, no click or rub - ABDOMEN: tender lower abdomen, suprapubic region, without guarding or peritoneal signs. MS: extremities- no gross deformities noted, no edema PSYCH: Alert and oriented times 3; coherent speech, normal rate and volume, able to articulate logical thoughts, able to abstract reason, no tangential thoughts, no hallucinations or delusions. Affect is flat but she is pleasant and responds well to questions. Diagnostic test results: Results for orders placed in visit on 09/23/12 (from the past 24 hour(s)) RAPID STREP SCREEN Component Value Range Specimen Description Throat Rapid Strep A Screen (*) Value: POSITIVE: Group A Streptococcal antigen detected by immunoassay. Micro Report Status FINAL 09/23/2012 UA MACROSCOPIC WITH REFLEX TO MICROSCOPIC AND CULTURE Component Value Range Color Urine Yellow Appearance Urine Clear Glucose Urine Negative NEG mg/dL Bilirubin Urine Negative NEG Ketones Urine Negative NEG mg/dL Specific [place] Urine 1.020 1.003 - 1.035 Blood Urine Moderate (*) NEG pH Urine 6.0 5.0 - 7.0 pH Protein Albumin Urine 30 (*) NEG mg/dL Urobilinogen Urine 1.0 0.2 - 1.0 EU/dL Nitrite Urine Negative NEG Leukocyte Esterase Urine Trace (*) NEG Source Midstream Urine URINE MICROSCOPIC Component Value Range WBC Urine O - 2 0 - 2 /HPF RBC Urine 2-5 (*) 0 - 2 /HPF Squamous Epithelial /LPF Urine Many (*) FEW /LPF Bacteria Urine Moderate (*) NEG /HPF Mucous Urine Present (*) NEG /LPF CBC WITH PLATELETS DIFFERENTIAL Component Value Range WBC 13.1 (*) 4.0 - 11.0 10e9/L RBC Count 3.86 3.8 - 5.2 10e12/L Hemoglobin 11.0 (*) 11.7 - 15.7 g/dL Hematocrit 33.5 (*) 35.0 - 47.0 % MCV 87 78 - 100 fl MCH 28.5 26.5 - 33.0 pg MCHC 32.8 31.5 - 36.5 g/dL RDW 13.5 10.0 - 15.0 % Platelet Count 217 150 - 450 10e9/L Diff Method Automated Method % Neutrophils 85.0 (*) 40 - 75 % % Lymphocytes 6.5 (*) 20 - 48 % % Monocytes 8.2 0 - 12 % % Eosinophils 0.1 0 - 6 % % Basophils 0.2 0 - 2 % Absolute Neutrophil 11.2 (*) 1.6 - 8.3 10e9/L Absolute Lymphocytes 0.9 0.8 - 5.3 10e9/L Absolute Monoctyes 1.1 0.0 - 1.3 10e9/L Absolute Eosinophils 0.0 0.0 - 0.7 10e9/L Absolute Basophils 0.0 0.0 - 0.2 10e9/L ASSESSMENT/PLAN: Alyssa was seen today for er f/u and pharyngitis. Diagnoses and associated orders for this visit: Pharyngitis - Rapid strep screen - AGK-Pmki-EcBkbu-MgHydr-Simeth (FIRST-MOUTHWASH BLM) SUSP; Take 5-10 mLs by mouth as needed. Abdominal pain - UA reflex to Microscopic and Culture - CBC with platelets differential Streptococcal pharyngitis - penicillin G benzathine (BICILLIN L-A) [id number] UNIT/2ML injection; Inject 2 mLs into the muscle once for 1 dose. Uti (urinary tract infection) - ciprofloxacin (CIPRO) 500 MG tablet; Take 1 tablet by mouth 2 times daily for 7 days. - Urine culture Other Orders - Urine Microscopic Bicillin LA for strep pharyngitis was well tolerated. She should also get on and finish cipro for UTI. Her WBC count is now elevated to 13 and there is more of a shift, UA has increased leukocyte esterase and therefore will treat with a broad-spectrum antibiotic. Rest, get plenty of fluids. reports that she has never smoked. She has never used smokeless tobacco. Estimated Body mass index is 23.34 kg/(m^2) as calculated from the following: Height as of 09/21/12: 5' 4(1.626 m). Weight as of this encounter: 136 lb(61.689 kg). Fallon Brar MD [facility] documented in this encounter Nursing Notes 09/23/2012 10:00 AM CDT >> HEATHER LEARY [facility] September 23, 2012 10:19 AM Patient presents with: ER F/U - abd pain, dizziness, diarrhea, Pharyngitis - woke up this am with sore throat, concerns for strep Initial BP 102/64 Pulse 87 Temp 98.3 ??F (36.8 ??C) (Oral) Resp 18 Wt 136 lb (61.689 kg) Estimated Body mass index is 23.34 kg/(m^2) as calculated from the following: Height as of 09/21/12: 5' 4(1.626 m). Weight as of this encounter: 136 lb(61.689 kg).. BP completed using cuff size regular-RA documented in this encounter Plan of Treatment Not on filedocumented as of this encounter Procedures Procedure Name Priority Date/Time Associated Diagnosis Comme nts CBC WITH PLATELETS & Routine 09/23/2012 10:25 Abdominal Pain R esults for this DIFFERENTIAL AM CDT procedure are i n the results section. URINE MICROSCOPIC Routine 09/23/2012 10:24 Result s for this AM CDT procedure are i n the results section. UA MACROSCOPIC WITH Routine 09/23/2012 10:24 Abdominal Pain Re sults for this REFLEX TO MICROSCOPIC AM CDT proced ure are in AND CULTURE the results section. URINE CULTURE Routine 09/23/2012 10:24 UTI (urinary tract Resu lts for this AM CDT infection) procedure are i n the results section. RAPID STREP SCREEN STAT 09/23/2012 10:23 Pharyngitis Resul ts for this THROAT SWAB AM CDT procedure are i n the results section. documented in this encounter Results (ABNORMAL) CBC with platelets differential (09/23/2012 10:25 AM CDT) P athologist Signature WBC 13.1 (H) 4.0 - 11.0 [place] 10e9/L [facility] RBC Count 3.86 3.8 - 5.2 [place] 10e12/L [facility] Hemoglobin 11.0 (L) 11.7 - 15.7 [place] g/dL [facility] Comment: Reviewed: OK with previous Hematocrit 33.5 (L) 35.0 - 47.0 % [facility] MCV 87 78 - 100 fl [facility] RID [facility] MCH 28.5 26.5 - 33.0 pg [facility] MCHC 32.8 31.5 - 36.5 g/dL [facility] RDW 13.5 10.0 - 15.0 % [facility] Platelet Count 217 150 - 450 10e9/L [facility] Diff Method Automated Method [facility] % Neutrophils 85.0 (H) 40 - 75 % [facility] % Lymphocytes 6.5 (L) 20 - 48 % [facility] % Monocytes 8.2 0 - 12 % [facility] % Eosinophils 0.1 0 - 6 % [facility] % Basophils 0.2 0 - 2 % [facility] Absolute Neutrophil 11.2 (H) 1.6 - 8.3 10e9/L [facility] Absolute Lymphocytes 0.9 0.8 - 5.3 10e9/L [facility] Absolute Monocytes 1.1 0.0 - 1.3 10e9/L [facility] Absolute Eosinophils 0.0 0.0 - 0.7 10e9/L [facility] Absolute Basophils 0.0 0.0 - 0.2 10e9/L [facility] Specimen Anatomical Collection Method Collection Time Receive d Time (Source) Location / / Volume Laterality Blood specimen 09/23/2012 10:25 3 (specimen) AM CDT 10:26 AM CDT Fallon Brar MD LAB - BLOOD ORDERABLES Performing Organization Address City/State/ZIP Code Phon e Number [facility] [address] [place] [address] [facility] [address] [place] [address] Urine culture (09/23/2012 10:24 AM CDT) Component Value Ref Test Analysis Performed At [facility] Range Method Time Signature Specimen Midstream Urine [facility] Culture Micro >100,000 colonies/mL Mixed gram negative and positive f pancho [facility] Multiple species present, probable perineal contamination. MICROBIOLOGY Susceptibility testing not routinely done Micro Report FINAL 09/24/2012 [facility] Status MICROBIOLOGY Specimen Anatomical Collection Method Collection Time Receive d Time (Source) Location / / Volume Laterality Urine specimen 09/23/2012 10:24 3 (specimen) AM CDT 10:25 AM CDT Fallon Brar MD LAB - MICRO GENERAL ORDERABL ES Performing Organization Address City/[facility]/ZIP Code Phon e Number [facility] [address] [place] [address] [facility] [id number] [place] [phone] [facility] MICROBIOLOGY (ABNORMAL) Urine Microscopic (09/23/2012 10:24 AM CDT) [facility] Method Time Signature WBC Urine O - 2 0 - 2 [place] /HPF [facility] RBC Urine 2-5 (A) 0 - 2 [place] /[facility] Squamous Many (A) FEW /LPF [place] Epithelial [facility] /LPF Urine CLINIC LAB Bacteria Urine Moderate (A) NEG /HPF [facility] Mucous Urine Present (A) NEG /LPF [facility] Specimen Anatomical Collection Method Collection Time Receive d Time (Source) Location / / Volume Laterality 09/23/2012 10:24 09/23/2012 AM CDT 10:25 AM CDT Fallon Brar MD LAB - URINE ORDERABLES Performing Organization Address City/[facility]/ZIP Code Phon e Number [address] [address] [facility] [address] [place] [phone] (ABNORMAL) UA reflex to Microscopic and Culture (09/23/2012 10:24 AM CDT) [facility] Method Time Signature Color Urine Yellow [facility] Appearance Urine Clear [facility] Glucose Urine Negative NEG mg/dL [facility] Bilirubin Urine Negative NEG [facility] Ketones Urine Negative NEG mg/dL [facility] Specific [place] 1.020 1.003 - [place] Urine 1.035 [facility] Blood Urine Moderate (A) NEG [facility] pH Urine 6.0 5.0 - 7.0 [place] pH [facility] Protein Albumin 30 (A) NEG mg/dL [place] Urine [facility] Urobilinogen 1.0 0.2 - 1.0 [place] Urine EU/dL [facility] Nitrite Urine Negative NEG [facility] Leukocyte Trace (A) NEG [place] Esterase Urine [facility] Source Midstream [place] Urine [facility] Specimen Anatomical Collection Method Collection Time Receive d Time (Source) Location / / Volume Laterality Urine specimen 09/23/2012 10:24 3 (specimen) AM CDT 10:25 AM CDT Fallon Brar MD LAB - URINE ORDERABLES Performing Organization Address City/[facility] Phon e Number [facility] [id number] [place] [phone] [facility] [address] [place] [phone] (ABNORMAL) Rapid strep screen (09/23/2012 10:23 AM CDT) Component Value Ref Test Analysis Performed At Patholo gist Range Method Time Signature Specimen Throat [place] Description [facility] Rapid Strep A POSITIVE: Group [place] Screen A Streptococcal [facility] antigen detected [facility] by immunoassay. (A) Micro Report FINAL 09/23/2012 [place] Status [facility] Specimen Anatomical Collection Method Collection Time Receive d Time (Source) Location / / Volume Laterality Specimen from 09/23/2012 10:23 09/23/2012 throat AM CDT 10:25 AM CDT (specimen) Fallon Brar MD LAB - MICRO GENERAL ORDERABL ES Performing Organization Address [facility]/ZIP [facility] Phon e Number [facility] [id number] [place] [address] [facility] [address] [place] [address] [phone] documented in this encounter Visit Diagnoses Diagnosis Pharyngitis - Primary Acute pharyngitis Abdominal pain Abdominal pain, unspecified site Streptococcal pharyngitis Streptococcal sore throat UTI (urinary tract infection) Urinary tract infection, site not specif ied documented in this encounter Care Teams Salesperson [employer] Relationship Specialty Start Date End Date Félix Arteaga MD PCP - General 06/25/05 08/29/14 [facility] [address] [place] [address] documented as of this encounter
--- OUTSIDE RECORDS SUMMARY | 2022-02-09 01:03 | XMS_ITS | Encounter Summary ---
:1975 Author Organization [place] Address [address] [place] [address] Care Team Providers Name Role Phone Félix Arteaga MD Primary Care Provider + [facility] Primary Care Provider Susie Naidu THIRD RAIL INSTALLER Primary Care Provider [facility] Primary Care Provider No Ref-Primary, Physician Primary Care Provider [phone] Isis Grace PA-C Unavailable Isis Grace PA-C Unavailable [phone] Reason for Visit Reason Onset Date Comments ER F/U 06/28/2013 ER f/u 06/27/13 Stre ptococcal Pharyngitis, Colic Cramps Encounter Details Date Type Department Care Team Description 06/28/2013 Telephone [facility] Félix Arteaga R F/U (ER f/u 06/27/13 [facility] Redd Baxter MD Streptococcal [facility] AESTHETIC Pharyngitis, Colic [place], [place] [facility] Cramps) [phone] [address] [phone] [place], [place] [address] (Wo rk) Social History [...] Encounter - Erica Stone RN - 07/01/2013 3:03 PM CST Also message for son and daughter (daughter not same last name) ED / Discharge Outreach Protocol Patient Contact Attempt # 2 Was call answered? No. Left message on voicemail with information to call me back. Erica Stone RN UGATOR HELPER Telephone Encounter - Que Mena RN - 06/30/2013 1:11 PM CST ED / Discharge Outreach Protocol Patient Contact Attempt # 1 Was call answered? No. Left message on voicemail with information to call me back. Que Mena RN UGATOR HELPER Telephone Encounter - Ilene Rivas - 06/28/2013 4:54 PM CST Please call patient for ER f/u 06/27/13 Streptococcal Pharyngitis, Colic Cramps. Ilene Rivas. Battery Charger. UGATOR HELPER documented in this encounter Plan of Treatment Not on filedocumented as of this encounter Visit Diagnoses Not on filedocumented in this encounter Care Teams Senior Production Planner Relationship Specialty Start Date End Date Félix Arteaga PCP - General 06/25/05 Redd Baxter MD [facility] [address] [facility] [place] [address] Clinic - [facility] PCP - General 09/21/1503/17 [facility] [address] [place] [address] Susie Naidu, THIRD RAIL INSTALLER PCP - General Nurse Practitioner - 03/18/16 12/09/17 Family [facility] - [facility] PCP - General 12/10/17 [facility] [address] [place] [address] No Ref-Primary, PCP - General 03/13/18 09/15/18 Physician Isis Grace PCP - Assigned PCP 08/03/17 06/06/18 JEREMY Edwards [address] [place] [address] Isis Grace Assigned PCP 08/03/17 JEREMY Edwards [address] [place] [address] documented as of this encounter
--- OUTSIDE RECORDS SUMMARY | 2022-02-09 01:03 | XMS_ITS | Encounter Summary ---
:1975 Author Organization [place] Address [address] [place] [address] Care Team Providers Name Role Phone Félix Arteaga MD Primary Care Provider + Reason for Visit Reason Comments Vaginal Bleeding Encounter Details Date Type Department Care Team Description 07/21/2012 Emergency [facility] Jae Elder Dysfunckaroline ional uterine bleeding (Primary Dx); [facility] Emergency MD Aj Anemia Dept [facility] [address] [place], [place] [address] [address] [phone] [place] [address] [place] [address] (Wo rk) Social History Tobacco [...] Sign Reading Time Taken Comments Blood Pressure 123/87 07/21/2012 11:05 PM CDT Pulse 101 07/21/2012 9:14 PM CDT Temperature 37.4 ??C (99.4 ??F) 07/21/2012 9:14 PM CDT Respiratory Rate 20 07/21/2012 9:14 PM CDT Oxygen Saturation 100% 07/21/2012 11:05 PM CDT Inhaled Oxygen Concentration - - Weight 59.9 kg (132 lb) 07/21/2012 9:14 PM CDT Height 162.6 cm (5' 4) 07/21/2012 9:14 PM CDT Body Mass Index 22.66 07/21/2012 9:14 PM CDT documented in this encounter Discharge Instructions Discharge Jae Maxwell MD - 07/21/2012 11:24 PM CDT Images from the original note were not included. Please make an appointment to follow up with your primary care provider or Grease Maker into 1-2 weeks FOLLOW if not better. Return to ER immediately if you develop: worsening bleeding or lightheadedness, Fever > 101, persistent nausea or vomiting OR you have any other concerns about your health. Take control as prescribed, 2 tabs until bleeding stops and then 1 tablet daily Resume your iron supplement Home Back SP RU CH IRREGULAR VAGINAL BLEEDING This is a condition in which bleeding occurs at unexpected times of the month. The bleeding may be heavier or clearance rep than usual. Heavy bleeding may lead to anemia. If severe enough, anemia may cause you to look pale and feel weak or fatigued. You might have shortness of breath even with little exertion. The female hormones produced in your body every month may be out of balance. This imbalance leads tobleeding. Causes could include an ovarian cyst, emotional stress, pelvic infection. Failure to ovulate during your last cycle may also cause this problem. HOME CARE: ?? If bleeding is heavy, rest and avoid heavy exertion. ?? You may use acetaminophen (Tylenol) or ibuprofen (Motrin, Advil) to control pain, unless another pain medicine was prescribed. [NOTE: If you have chronic liver or kidney disease or ever had a stomach ulcer or GI bleeding, talk with your doctor before using these medicines.] ?? Iron supplements may be prescribed for anemia. It takes about 4-6 weeks for the iron to correct the anemia. Take the medicine as directed. See your doctor for a repeat blood test after you finish the iron treatment. ?? If hormones were prescribed to control your bleeding, take them exactly as directed. If you were prescribed a medicine called Provera (medroxyprogesterone), the bleeding should stop while you are taking it. Another period will start a few days after you finish the medicine. FOLLOW UP with your doctor, or as advised, within the next 1-2 days if heavy bleeding continues. Otherwise, follow up within the next 1-2 weeks. GET PROMPT MEDICAL ATTENTION if any of the following occur: ?? Bleeding becomes heavy (soaking one pad an hour for three hours) ?? Fever of 100.4??F (38??C) or higher, or as directed by your healthcare provider ?? Increase in abdominal pain ?? Weakness, dizziness or fainting ?? [id number] [facility], [address] [place] [address]. All rights reserved. This information is not [...] mouth daily (with breakfast). fluticasone (FLONASE) 50 [place] 1-2 sprays 1 Package 0 05/0709/06/2013 MCG/ACT [...] take one tab until package is gone documented as of this encounter ED Notes Jae Elder MD - 07/21/2012 9:35 PM CDT History Chief Complaint: Vaginal Bleeding HPI Alyssa Aguillon is a 36 year old female with a history of menorrhagia who presents with vaginal bleeding. The patient states she began her normal menstrual period three days ago with some spotting, and the bleeding has increased. She says today her bleeding increased significantly compared to normalto the point that she was soaking a tampon every 15 minutes. The patient reports she noticed some clots when she changed her tampons, as well. She indicates this went on for several hours, and she began to feel weak, so she decided to be evaluated. Currently, she feels weak and lightheaded with a heada vel. She notes she has had no abdominal cramping today like she normally does with menstrual bleeding. The patient denies changes in bowel or bladder habits or any other complaints. Allergies: NKDA Medications: Ibuprofen Flonase Tylenol Fergon Past Medical History: Streptococcal sore throat Abnormal Pap smear Menorrhagia, premenopausal Past Surgical History: Colposcopy cervix, loop electrode biopsy Family / Social History: No past pertinent family history. Marital Status: Single [1] Social History: Negative for tobacco use. The patient rarely uses alcohol. Review of Systems Gastrointestinal: Negative for abdominal pain and diarrhea. Genitourinary: Positive for vaginal bleeding. Negative for dysuria and frequency. Neurological: Positive for weakness, light-headedness and headaches. All other systems reviewed and are negative. Physical Exam First Vitals: BP: 176/99 mmHg Pulse: 101 Temp: 99.4 ??F (37.4 ??C) Resp: 20 Height: 162.6 cm (5' 4) Weight: 59.875 kg (132 lb) SpO2: 100 % Physical Exam Nursing note and vitals reviewed. Constitutional: Non-toxic appearance. HENT: Right Ear: External ear normal. Left Ear: External ear normal. Nose: Nose normal. Mouth/Throat: Oropharynx is clear and moist and mucous membranes are normal. Eyes: Conjunctivae and lids are normal. Neck: Neck supple. No tracheal deviation present. Cardiovascular: Regular rhythm and intact distal pulses. Pulmonary/Chest: Breath sounds normal. No respiratory distress. Abdominal: Soft. There is no tenderness. There is no rebound and no guarding. Mild suprapubic abdominal pain. Genitourinary: Pelvic: Small amount of blood, otherwise normal. Musculoskeletal: No peripheral edema Neurological: MAEE, no gross focal motor or sensory deficit Skin: Skin is warm and dry. She is not diaphoretic. Psychiatric: She has a normal mood and affect. Emergency Department Course Imaging: US pelvis: normal pelvis per radiology. Laboratory: CBC: HGB 11.3 (L), WBC 6.0, PLT 317, o/w WNL HCG: <3 Interventions: NS 1 L IV Emergency Department Course: The patient was examined here in the Emergency Department by myself, findings above. I discussed the plan of treatment with the patient and she is agreeable to this. IV inserted and blood drawn. The patient was placed on continuous cardiac monitoring and pulse oximetry. The patient was sent for a pelvis US while in the emergency department, findings above. Rechecked the patient, findings and plan explained to the patient. Patient discharged home, status improved, with instructions regarding supportive care, medications, and reasons to return as well as the importance of close follow-up was reviewed. Impression & Plan Medical Decision Makin36 year old female here with vaginal bleeding. She does have some postural lightheadedness and dizziness with a history of menorrhagia and anemia. We will do a CBC, IV fluids, pelvic exam, pelvic ultrasound, and test. She is mildly tachycardic and vitally stable. Only a small amount of bleeding seen on pelvic examination. Negative test. Hemoglobin of 11.3, which is improved since her last in [facility] was in the mid 8???s. Ultrasound showed no acute findings. Will discharge her home with control pills to stabilize the endometrium, start her back on iron supplementation, and follow up with MATERIAL LOADER. She is comfortable and agreeable with this plan. Diagnosis: 1. Dysfunctional uterine bleeding and menorrhagia. I, Vidal Lyon, am serving as a scribe on 07/21/2012 at 9:37 PM to personally document services performed by Dr. Elder based on my observations and the provider's statements to me. Vidal Lyon 07/21/2012 [facility] EMERGENCY DEPARTMENT Jae Elder MD 07/22/12 0049 Manjula Cole RN - 07/21/2012 9:13 PM CDT Pt Alert and oriented x3. Airway, breathing and circulation intact. Pt vaginal bleeding friday Andstarted having heavy bleeding tonight. documented in this encounter Plan of Treatment Not on filedocumented as of this encounter Procedures Procedure Name Priority Date/Time Associated Comments Diagnosis US PELVIC STAT 07/21/2012 10:49 Results for this TRANSABDOMINAL AND PM CDT procedure are in TRANSVAGINAL the results section. HCG QUANTITATIVE STAT 07/21/2012 9:25 PM Resul ts for this CDT procedure are i n the results section. CBC WITH PLATELETS STAT 07/21/2012 9:25 PM Res ults for this CDT procedure are i n the results section. documented in this encounter Results US Pel W/Trans* (07/21/2012 10:49 PM CDT) Anatomical Region Laterality Modality Abdomen/Pelvis Other Specimen (Source) Anatomical Collection Method Collection Time Re ceived Time Location / / Volume Laterality 07/21/2012 10:49 PM CDT Impressions 07/22/2012 10:17 AM CDT IMPRESSION: Normal pelvis. NAGA ANGULO MD Narrative 07/22/2012 10:17 AM CDT PELVIC ULTRASOUND WITH TRANS ?? 3 ??10:49 PM HISTORY: Menorrhagia. COMPARISON: None. FINDINGS: Transabdominal and transvagina l imaging was performed. Transvaginal imaging was performed to be tter visualize the endometrium and adnexa. The uterus is no rmal in size and position measuring 9.4 x 5.9 x 5.8 cm. The endome trium is normal in thickness at 0.6 cm. There is a probable tiny endo metrial calcification of no significance. There is a small nabothian cysts in the cervix. The ovaries are normal in size and appearanc e bilaterally. No adnexal mass. No free pelvic fluid. Procedure Note Naga Angulo MD - 07/22/2012Form atting of this note might be different from the original. PELVIC ULTRASOUND WITH TRANS 07/21/2012 1 0:49 PM HISTORY: Menorrhagia. COMPARISON: None. FINDINGS: Transabdominal and transvagina l imaging was performed. Transvaginal imaging was performed to be tter visualize the endometrium and adnexa. The uterus is no rmal in size and position measuring 9.4 x 5.9 x 5.8 cm. The endome trium is normal in thickness at 0.6 cm. There is a probable tiny endo metrial calcification of no significance. There is a small nabothian cysts in the cervix. The ovaries are normal in size and appearanc e bilaterally. No adnexal mass. No free pelvic fluid. IMPRESSION IMPRESSION: Normal pelvis. NAGA ANGULO MD Jae Elder MD IMG US ORDERABLES HCG QUANTitative (blood) (07/21/2012 9:25 PM CDT) Patholo gist Method Time Signature HCG Quantitative <3 IU/L [place] Serum Non- ?0 - 5 RID GES , weeks from LMP: HOS PITAL LAB ??1 - 10 weeks ? 64 - 151,000 IU/L 11 - 15 weeks 11,800 - 152,000 IU/L 16 - 22 weeks ??9,380 - 61,400 IU/L 23 - 40 weeks ??1,740 - 98,600 IU/L Specimen Anatomical Collection Method Collection Time Receive d Time (Source) Location / / Volume Laterality Blood specimen 07/21/2012 9:25 PM 013 9:46 (specimen) CDT PM CDT Jae Elder MD LAB - BLOOD ORDERABLES Performing Organization Address City/State/ZIP Code Phon e Number [place] [address] H[facility] (ABNORMAL) CBC (platelets, no diff) (07/21/2012 9:25 PM CDT) Analysis Performed At [facility] logist Time Signature WBC 6.0 4.0 - 11.0 [place] 10e9/L [facility] RBC Count 3.78 (L) 3.8 - 5.2 [place] 10e12/L [facility] Hemoglobin 11.3 (L) 11.7 - [place] 15.7 g/dL [facility] Hematocrit 33.2 (L) 35.0 - [place] 47.0 % [facility] MCV 88 78 - 100 [place] fl [facility] MCH 29.9 26.5 - [place] 33.0 pg [facility] MCHC 34.0 31.5 - [place] 36.5 g/dL [facility] RDW 13.8 10.0 - [place] 15.0 % [facility] Platelet Count 317 150 - 450 [place] 10e9/L [facility] Specimen Anatomical Collection Method Collection Time Receive d Time (Source) Location / / Volume Laterality Blood specimen 07/21/2012 9:25 PM 013 9:46 (specimen) CDT PM CDT Jae Elder MD LAB - BLOOD ORDERABLES Performing Organization Address City/State/ZIP Code Phon e Number [facility] [address] [place], [place] [address] [facility] documented in this encounter Visit Diagnoses Diagnosis Dysfunctional uterine bleeding - Primary Other disorder of menstruation and other abnormal bleeding from female genital tract Anemia Anemia, unspecified documented in this encounter Administered Medications Inactive Administered Medications - up to 3 most recent administrations Medication Order MAR Action Action Date Dose Rate Site sodium chloride 0.9 % BOLUS New Bag 07/21/2012 9:45 PM CDT 1,000 m Ls 999 mL/hr 1,000 mL Intravenous, 1,000 mL, ONCE, On Fri07/21/12 at 2145, For 1 dose documented in this encounter Active and Recently Administered Medications Times are shown in CDT. Scheduled Medication Order 07/19/2012 07/20/2012 07/21/2012 sodium chloride 0.9 % BOLUS 1,000 mL (COMPLETED) 2145 (New Bag - Provider: Mae Randolph RN)2320 (Stopped - Provider: Lyric Carrasco, DELLA) Intravenous, 1,000 mL, ONCE, On e 07/21/12 at 2145, For 1 dose documented in this encounter Care Teams Tension Worker Relationship Specialty Start Date End Date Félix Arteaga MD PCP - General 06/25/05 08/29/14 [facility] [address] [place] [address] documented as of this encounter
--- OUTSIDE RECORDS SUMMARY | 2022-02-09 01:03 | XMS_ITS | Encounter Summary ---
:1975 Author Organization [place] Address [address] [place] [address] Care Team Providers Name Role Phone Félix Arteaga MD Primary Care Provider + Reason for Visit Reason Onset Date Comments ER F/U 05/08/2012 was seen Riley Alves R on 05/07/2012 for acute uri, and acute otitis media Encounter Details Date Type Department Care Team Description 05/08/2012 Telephone [facility] Félix Arteaga R F/U (was seen [facility] [place] [address] [facility] 05/07/2012 for acute [place], [place] WELLNESS uri, and acute otitis [id number] [address] media) [phone] [place], [place] [address] (Wo rk) Social History [...] this encounter Miscellaneous Notes Telephone Encounter - Maylin Metcalf - 05/14/2012 11:03 AM CST ED / Discharge Outreach Protocol Patient Contact Attempt # 1 Was call answered? Yes. May I please speak with <patient name> Is patient available? Yes Ican't talk right now I will call back TRE PROFESSOR Telephone Encounter - Romelia Awan - 05/08/2012 10:54 AM CST Please call patient for ED/UC/IP follow-up Romelia Awan/ELEN TRE PROFESSOR documented in this encounter Plan of Treatment Not on filedocumented as of this encounter Visit Diagnoses Not on filedocumented in this encounter Care Teams Warehouse Sorter Relationship Specialty Start Date End Date Félix Arteaga MD PCP - General 06/25/05 08/29/14 [facility] [address] [place] [address] documented as of this encounter
--- OUTSIDE RECORDS SUMMARY | 2022-02-09 01:03 | XMS_ITS | Encounter Summary ---
:1975 Author Organization [place] Address [address] [place] [address] Care Team Providers Name Role Phone Félix Arteaga MD Primary Care Provider + Encounter Details Date Type Department Care Team Description 12/03/2010 Orders Only [facility] Iro n deficiency anemia [facility] [id number] [place] [phone] Social History Tobacco Use Types Packs/Day Years [...] Date/Time Associated Diagnosis Comme nts HEMOGLOBIN Routine 12/03/2010 6:22 PM Iron deficiency Result s for this CDT anemia procedure are i n the results section . documented in this encounter Results (ABNORMAL) Hemoglobin (12/03/2010 6:22 PM CDT) P athologist Signature Hemoglobin 8.3 (L) 11.7 - 15.7 [place] g/dL [facility] Comment: Results confirmed by repeat sean t Specimen Anatomical Collection Method Collection Time Receive d Time (Source) Location / / Volume Laterality Blood specimen 12/03/2010 6:22 PM 08/01/2 011 6:25 (specimen) CDT PM CDT Molly Padilla MD LAB - BLOOD ORDERABLES Performing Organization Address City/State/ZIP Code Phon e Number [facility] [address] [place] [address] [facility] documented in this encounter Visit Diagnoses Diagnosis Iron deficiency anemia Iron deficiency anemia, unspecified documented in this encounter Care Teams Wing Scorer Relationship Specialty Start Date End Date Félix Arteaga MD PCP - General 06/25/05 08/29/14 [facility] [address] [address] documented as of this encounter
--- OUTSIDE RECORDS SUMMARY | 2022-02-09 01:03 | XMS_ITS | Encounter Summary ---
:1975 Author Organization [place] Address [address] [facility] [place] [address] Care Team Providers Name Role Phone Félix Arteaga MD Primary Care Provider + Reason for Visit Reason Onset Date Comments Results 11/23/2010 Encounter Details Date Type Department Care Team Description 11/23/2010 Telephone [facility] Molly Lopez MD Results [place] [phone] [place] [address] [phone] (Wo rk) Social History Tobacco Use Types [...] this encounter Miscellaneous Notes Telephone Encounter - Molly Padilla - 11/23/2010 5:54 PM CDT Pt called regarding abnormal low HB results. Pt very concerned , that her HB is dropping. Pt has cone biopsy, few days ago, had uncontrolled bleeding during procedure, later bleeding was controlled. Ptis not bleeding now. Pt was told to have HB checked . HB checked yesterday shows 9.1 , dropped from 9.6 on 11/19/2010. Recommend to take iron supplements , pt has tablets at home. Pt can take 1 tab every Other day , if not tolerating well . Can take MV daily. Pt feels tired, no dizziness . Check HB on Friday or Friday , future labs placed. Lab only appt. If symptoms worsen, recommend follow up in urgent care or ER. Carrie Padilla M.D documented in this encounter Plan of Treatment Not on filedocumented as of this encounter Visit Diagnoses Diagnosis Iron deficiency anemia - Primary Iron deficiency anemia, unspecified documented in this encounter Care Teams Zipper Trimmer Relationship Specialty Start Date End Date Félix Arteaga MD PCP - General 06/25/05 08/29/14 [facility] [address] [place] [address] documented as of this encounter
--- OUTSIDE RECORDS SUMMARY | 2022-02-09 01:03 | XMS_ITS | Encounter Summary ---
:1975 Author Organization [facility] Address [address] [place] [address] Care Team Providers Name Role Phone Félix Arteaga MD Primary Care Provider + Reason for Visit Reason Comments Other patient complaining of abd p ain Encounter Details Date Type Department Care Team Description 06/09/2013 - Emergency [facility] Jeremy Magaña MD Constipation (Primary 06/10/2013 [facility] Emergency [facility] Dx) Dept [place] [address] [place], [place] [id number] [phone] Social History Tobacco Use Types Packs/Day Years [...] Sign Reading Time Taken Comments Blood Pressure 112/75 06/10/2013 12:50 AM NURSING PROGRAM DIRECTOR Pulse 80 06/09/2013 9:39 PM NURSING PROGRAM DIRECTOR Temperature 36.7 ??C (98 ??F) 06/09/2013 9:39 PM NURSING PROGRAM DIRECTOR Respiratory Rate 16 06/09/2013 9:39 PM NURSING PROGRAM DIRECTOR Oxygen Saturation 96% 06/10/2013 12:51 AM NURSING PROGRAM DIRECTOR Inhaled Oxygen Concentration - - Weight 59 kg (130 lb) 06/09/2013 9:39 PM NURSING PROGRAM DIRECTOR Height 162.6 cm (5' 4) 06/09/2013 9:39 PM NURSING PROGRAM DIRECTOR Body Mass Index 22.31 06/09/2013 9:39 PM NURSING PROGRAM DIRECTOR documented in this encounter Discharge Instructions Discharge InstructionsJeremy Magaña MD - 06/10/2013 12:52 AM CST Home Back SP High Fiber Diet Fiber is present in all fruits, vegetables, cereals and grains. Fiber passes through the body undigested. A high fiber diet helps food move through the intestinal tract. The added bulk is helpful in preventing constipation. In people with diverticulosis it serves to clean out the pouches along the colon wall while preventing new ones from forming. A high fiber diet also reduces the risk of colon cancer, decreases blood cholesterol and prevents high blood sugar in people with diabetes. The foods listed below are high in fiber and should be included in your diet. If you are not used tohigh fiber foods, start with 1 or 2 foods from this list. Every 3-4 days add a new one to your diet until you are eating 4 high fiber foods per day. This should give you 20-35 Gm of fiber/day. It is also important to drink a lot of water when you are on this diet (6-8 glasses a day). Water causes the fiber to swell and increases the benefit. Foods High In Dietary Fiber: BREADS: Made with 100% whole wheat flour; sandy, wheat or rye crackers; tortillas, bran muffins CEREALS: Whole grain cereal with bran (Chex, Raisin Bran, [place] Bran), oatmeal, rolled oats, granola,wheat flakes, brown rice NUTS: Any nuts FRUITS: All fresh fruits along with edible skins, (bananas, citrus fruit, mangoes, pears, prunes, raisins, apples, pineapple, apricot, melon, jams and marmalades), fruit juices (especially prune juice) VEGETABLES: All types, preferably raw or lightly cooked: especially, celery, eggplant, potatoes,spinach, broccoli, brussel sprouts, winter squash, carrots, cauliflower, soybeans, lentils, fresh and dried beans of all kinds OTHER: Popcorn, any spices ?? [id number] Tonie Naik, [address] [place] [address], [place] [address]. All rights reserved. This information is not intended as a substitute for professional medical care. Always follow your healthcare professional's instructions. Home Back SP fr pl RU CH Constipation (Adult) Constipation is bowel movements that are less frequent than usual. Stools often become very hard anddifficult to pass. This may lead to abdominal pain and bloating. It may also cause painful bowel movements. Constipation may be due to a diet that???s low in fiber. Some medications, especially pain medications, can also cause it. Constipation may be treated with enemas, suppositories, laxatives or stool softeners. Your doctor will advise you which will work best for you. Follow the advice below to help avoid this problem in the future. Home Care Medication: Take any medicines as directed. Some laxatives are safe only for occasional use. Others can be taken on a regular basis. Talk to your doctor or pharmacist if you have questions. General Care: ?? Prescription pain medications can cause constipation. If you are prescribed pain medications, askthe doctor whether you should also take a stool softener. ?? A diet high in fiber with plenty of fluids helps to maintain regular, soft bowel movements. The following foods are good sources of dietary fiber: ?? Cereals and breads: Whole grain cereal with bran, oatmeal, rolled oats, whole grain breads ?? Fruits: All fruits (fresh and dried), raisins, prunes, apricots, berries, figs ?? Vegetables: Any fresh vegetables, especially peas, broccoli, brussels sprouts, winter squash, green beans, cauliflower, chan beans, carrots ?? Other: Popcorn, brown rice Drink plenty of water when you increase the amount of fiber you eat. Follow Up with your doctor or return to this facility if symptoms do not improve in the next few days. You mayrequire further tests or a referral to a specialist. Get Prompt Medical Attention if any of the following occur: ?? Fever over 100.4??F (38??C) ?? Failure to resume normal bowel movements ?? Increasing abdominal or back pain ?? Nausea or vomiting ?? Abdominal swelling ?? Blood in the stool ?? Weakness, dizziness or fainting ?? Unexpected vaginal bleeding ?? [id number] [facility], [address] [place] [address], [place] [address]. All rights reserved. This information is not intended as a substitute for professional medical care. Always follow your healthcare professional's instructions. ING PROGRAM DIRECTOR documented in this encounter Medications at Time of Discharge Medication Sig Dispensed Refills Start Date End Date ondansetron (ZOFRAN ODT) Take 1 tablet (4 10 tablet 0 06/1006/13/2013 4 MG disintegrating mg) by mouth every tablet 8 hours as needed for nausea acetaminophen (TYLENOL) Take 1-2 tablets by 0 12/29/2013 500 MG tablet mouth every 6 hours as needed. docusate sodium 100 MG Take 100 mg by 30 tablet 0 4 09/06/2013 tablet mouth daily BVD-Bhoj-KlZyqq-MgHydr-Si Take 5-10 mLs by 237 mL 1 [...] mouth daily (with breakfast). fluticasone (FLONASE) 50 [place] 1-2 sprays 1 Package 0 05/0709/06/2013 MCG/ACT [...] documented as of this encounter ED Notes Jeremy Magaña MD - 06/09/2013 9:45 PM CST History Chief Complaint: Abdominal pain HPI Alyssa Aguillon is a 37 year old female status post appendectomy who presents with abdominal pain.The patient states about a week and a half ago she developed some abdominal pain and urinary symptoms, and was diagnosed with a urinary tract infection and placed on an antibiotic. About 5 days ago, the day she finished her antibiotic she developed abdominal pain and alternating constipation and diarrhea, although she notes she has not had a bowel movement in several days. Patient reports nausea and abdominal bloating. She also complains of a sore throat. Due to the persistence of her symptoms, patient decided to present to the ED for further evaluation. The patient denies any fever, chills, nausea, vomiting, vaginal bleeding or discharge, or continued urinary symptoms. Allergies: No Known Drug Allergies Medications: Ibuprofen Acetaminophen Ferrous sulfate Ferrous gluconate Norgestrel-ethinyl estradiol Flonase Past Medical History: Menorrhagia Ovarian cyst Chronic constipation Past Surgical History: LEEP Appendectomy Family History: History reviewed. No pertinent family history. Social History: The patient presents to the emergency department with family. She denies a history of tobacco use. She reports current, but rare, alcohol use. PCP: Félix Arteaga Review of Systems Constitutional: Negative for fever and chills. Gastrointestinal: Positive for nausea, abdominal pain, diarrhea and constipation. Neurological: Negative for headaches. All other systems reviewed and are negative. Physical Exam First Vitals: BP: 125/99 mmHg Pulse: 80 Temp: 98 ??F (36.7 ??C) Resp: 16 Height: 162.6 cm (5' 4) Weight: 58.968 kg (130 lb) SpO2: 100 % Physical Exam Constitutional: She appears well-developed and well-nourished. HENT: Right Ear: External ear normal. Left Ear: External ear normal. Mouth/Throat: Oropharynx is clear and moist. No oropharyngeal exudate. Eyes: Conjunctivae normal are normal. Pupils are equal, round, and reactive to light. No scleral icterus. Neck: Normal range of motion. Neck supple. Cardiovascular: Normal rate, regular rhythm, normal heart sounds and intact distal pulses. Exam reveals no gallop and no friction rub. No murmur heard. Pulmonary/Chest: Effort normal and breath sounds normal. No respiratory distress. She has no wheezes. She has no rales. Abdominal: Soft. Bowel sounds are normal. She exhibits no distension and no mass. There is no rebound. Diffuse epigastric discomfort Musculoskeletal: Normal range of motion. She exhibits no edema. Lymphadenopathy: She has no cervical adenopathy. Neurological: She is alert. Speech normal. No focal weakness Skin: Skin is warm and dry. No rash noted. Psychiatric: She has a normal mood and affect. Emergency Department Course Imaging: CT abdomen pelvis: No bowel obstruction or inflammation. Small amount of free pelvic fluid. Contracted gallbladder. No acute abnormality. Reading per radiology. Radiographic findings were communicated with the patient who voiced understanding of the findings. Laboratory: CBC: WBC 6.9, HGB 10.2 (L), PLT 258 CMP: Creatinine: 0.84, albumin 3.7 (L), o/w WNL Lipase: 112 Rapid strep screen: negative Beta strep group A culture: pending UA: pH 8.0 (H), mucous present, squamous epithelial 9, o/w WNL HCG qual: negative Interventions: Zofran 4 mg IV GI cocktail Toradol 30 mg IV Normal Saline 1L IV x2 Emergency Department Course: The patient arrived in triage where vitals were measured and recorded. The patient was then escortedback to the emergency department. The patient's medical records were reviewed. Nursing notes and vitals reviewed. I performed an exam of the patient as documented above. The patient is in agreement with my plan of care. Peripheral IV was placed. Blood was drawn and sent to the laboratory for further tests, resultsseen above. 12:15 AM Recheck. The patient has had no nausea or vomiting. 12:[address] scan obtained. Results as above. Findings discussed with the patient. Findings and plan explained to the patient. Patient discharged home, status improved, with instructions regarding supportive care, medications, and reasons to return as well as the importance of close follow-up was reviewed. Discharge Medications: Zofran 4 mg ODT Docusate sodium 100 mg tablet Impression & Plan Medical Decision Makin37 year old female who presents with generalized abdominal discomfort and possible constipation. Patient is not ill appearing on exam. She has discomfort mainly in the mid epigastric area, although shehas no other areas of tenderness although she describes a diffuse discomfort. She did have some throat pain so we tested her for strep as her daughter was positive. Urine was checked, no signs of infection. Electrolytes and LFT's were normal, she has a baseline anemia that is unchanged. CT was undertaken, shows no sings of obstruction, inflammation. I suspect her discomfort is likely from constipation. We discussed multiple things she could do at home including improving hydration, improving her diet to include more fiber. She was prescribed Colace and Zofran. We discussed we would not give her narcotics for this type of pain as narcotics will cause more constipation. She is to push fluids and rest, she received Zofran, Toradol, and GI cocktail here. She is driving herself home therefore we cannot give her narcotics through the IV. She is comfortable with the plan, she will do Metamucil on a daily basis and any over the counter stool softener as well as prune juice. Otherwise patient is discharged in good condition for follow up in two days with her regular physician, Dr. Arteaga. She is to return if she has worsening or persistent pain, nausea, vomiting, fever, or other concerns. Diagnosis: Constipation (564.00) I, Mary Kay Mccain, am serving as a scribe at 10:05 PM on 06/09/2013 to document services personally performed by Dr. Magaña, based on my observations and the provider's statements to me. Mackenzie Harden 06/09/2013 [facility] EMERGENCY DEPARTMENT Jeremy Magaña MD 06/10/13 0324 ING PROGRAM DIRECTOR Manjula Cole RN - 06/09/2013 9:38 PM CST Pt Alert and oriented x3. Airway, breathing and circulation intact. Pt has been having abd pain for a few weeks. Pt having problems with constipation. Having bloating and 1 diarrhea stool today ING PROGRAM DIRECTOR documented in this encounter Miscellaneous Notes Initial Assessments - Scan, Non-Provider - 06/11/2013 10:34 AM CST ING PROGRAM DIRECTOR documented in this encounter Plan of Treatment Not on filedocumented as of this encounter Procedures Procedure Name Priority Date/Time Associated Comments Diagnosis CT ABDOMEN PELVIS W STAT 06/09/2013 11:44 Resu lts for this CONTRAST PM NURSING PROGRAM DIRECTOR procedure are i n the results section. CBC WITH PLATELETS & STAT 06/09/2013 10:30 Res ults for this DIFFERENTIAL PM NURSING PROGRAM DIRECTOR procedure are i n the results section. LIPASE STAT 06/09/2013 10:30 Results for this PM NURSING PROGRAM DIRECTOR procedure are i n the results section. COMPREHENSIVE STAT 06/09/2013 10:30 Results fo r this METABOLIC PANEL PM NURSING PROGRAM DIRECTOR procedure ar e in the results section. HCG QUALITATIVE URINE STAT 06/09/2013 10:20 Re sults for this PM NURSING PROGRAM DIRECTOR procedure are i n the results section. ROUTINE UA WITH STAT 06/09/2013 10:20 Results for this MICROSCOPIC PM NURSING PROGRAM DIRECTOR procedure are i n the results section. RAPID STREP SCREEN STAT 06/09/2013 10:15 Resul ts for this THROAT SWAB PM NURSING PROGRAM DIRECTOR procedure are i n the results section. BETA HEMOLYTIC STREP Routine 06/09/2013 10:15 Res ults for this GROUP A CULTURE PM NURSING PROGRAM DIRECTOR procedure ar e in the results section. documented in this encounter Results CT Abdomen Pelvis w Contrast (06/09/2013 11:44 PM NURSING PROGRAM DIRECTOR) Anatomical Region Laterality Modality Abdomen/Pelvis, SUBRAD CT BODY, UMP CT ABDOMEN PELVIS Computed Tomography Specimen (Source) Anatomical Location Collection Method / Collectio n Time Received Time / Laterality Volume Impressions 06/10/2013 9:06 AM NURSING PROGRAM DIRECTOR IMPRESSION: 1. A trace amount of nonspecific free fl uid in the pelvis. 2. No other cause of acute abdominal corina n identified. Note that the appendix is not visualized. The preliminary interpretation was conve yed to the clinical service by Dr. Angulo on 06/09/2013 at 2347 hours. ARTUR MULLINS MD Narrative 06/10/2013 9:[address] ABDOMEN AND PELVIS WITH CONTRAST 06/09/2013 11:44 PM HISTORY: Abdominal pain. COMPARISON: 09/21/2012 TECHNIQUE: Following the uneventful admi nistration of 50 mL Isovue-370 intravenous contrast and oral water, hel ical sections were acquired from the top of the diaphragm through th e pubic symphysis. Coronal reconstructions were generated. FINDINGS: Abdomen: The liver, spleen, pancreas, ad renal glands and kidneys are unremarkable. The gallbladder is contrac bong. Small hiatal hernia. No enlarged lymph nodes or free fluid in th e upper abdomen. Scan through the lower chest is unremark able. Pelvis: The small and large bowel are no rmal in caliber. The appendix is not visualized. No bowel wall thicken ing, pneumatosis or free intraperitoneal gas. The uterus is prese nt. A trace amount of free fluid in the pelvis. No enlarged lymph n odes in the pelvis. Procedure Note Artur Mullins MD - 06/10/2013Fo rmatting of this note might be different from the original. CT ABDOMEN AND PELVIS WITH CONTRAST 2013 11:44 PM HISTORY: Abdominal pain. COMPARISON: 09/21/2012 TECHNIQUE: Following the uneventful admi nistration of 50 mL Isovue-370 intravenous contrast and oral water, hel ical sections were acquired from the top of the diaphragm through th e pubic symphysis. Coronal reconstructions were generated. FINDINGS: Abdomen: The liver, spleen, pancreas, ad renal glands and kidneys are unremarkable. The gallbladder is contrac bong. Small hiatal hernia. No enlarged lymph nodes or free fluid in th e upper abdomen. Scan through the lower chest is unremark able. Pelvis: The small and large bowel are no rmal in caliber. The appendix is not visualized. No bowel wall thicken ing, pneumatosis or free intraperitoneal gas. The uterus is prese nt. A trace amount of free fluid in the pelvis. No enlarged lymph n odes in the pelvis. IMPRESSION IMPRESSION: 1. A trace amount of nonspecific free fl uid in the pelvis. 2. No other cause of acute abdominal corina n identified. Note that the appendix is not visualized. The preliminary interpretation was conve yed to the clinical service by Dr. Angulo on 06/09/2013 at 2347 hours. ARTUR MULLINS MD Jeremy Magaña MD IMG CT ORDERABLES Lipase (06/09/2013 10:30 PM NURSING PROGRAM DIRECTOR) P athologist Signature Lipase 112 20 - 250 [facility] [place] 2[place] U/L HOSPITAL LAB Specimen Anatomical Collection Method Collection Time Receive d Time (Source) Location / / Volume Laterality Blood specimen 06/09/2013 10:30 4 (specimen) PM NURSING PROGRAM DIRECTOR 10:45 PM NURSING PROGRAM DIRECTOR Jeremy Magaña MD LAB - BLOOD ORDERABLES Performing Organization Address City/[facility]/ZIP Code Phon e Carlos Mukherjee [facility] [address], [place] [address] [facility] LAB (ABNORMAL) Comprehensive metabolic panel (06/09/2013 10:30 PM NURSING PROGRAM DIRECTOR) Analysis Performed At Patho logist Time Signature Sodium 138 133 - 144 [place] mmol/L [facility] LAB Potassium 3.9 3.4 - 5.3 [place] mmol/L [facility] Chloride 102 94 - 109 [place] mmol/L [facility] Carbon Dioxide 28 20 - 32 [place] mmol/L [facility] Anion Gap 7 6 - 17 [place] mmol/L [facility] Glucose 83 60 - 99 [place] mg/dL [facility] Urea Nitrogen 10 5 - 24 [place] mg/dL [facility] Creatinine 0.84 0.52 - [facility] 1.04 mg/dL [facility] GFR Estimate 75 >60 [place] mL/min/1.[address] LAB GFR Estimate If >90 >60 [place] Black mL/min/[address] [place] [address] LAB Calcium 8.6 8.5 - 10.4 [place] mg/dL [facility] LAB Bilirubin Total 0.9 0.2 - 1.3 [place] mg/dL [facility] LAB Albumin 3.7 (L) 3.9 - 5.1 [place] g/dL [facility] Protein Total 7.3 6.8 - 8.8 [place] g/dL [facility] LAB Alkaline 53 40 - 150 [place] Phosphatase U/L [facility] LAB ALT 29 0 - 50 U/L [facility] LAB AST 24 0 - 45 U/L [facility] LAB Specimen Anatomical Collection Method Collection Time Receive d Time (Source) Location / / Volume Laterality Blood specimen 06/09/2013 10:30 4 (specimen) PM NURSING PROGRAM DIRECTOR 10:45 PM NURSING PROGRAM DIRECTOR Jeremy Magaña MD LAB - BLOOD ORDERABLES Performing Organization Address City/[facility]/ZIP [facility] [place] cory Mukherjee [facility] [address], [place] [address] [facility] LAB (ABNORMAL) CBC with platelets differential (06/09/2013 10:30 PM NURSING PROGRAM DIRECTOR) [facility] gist Method Time Signature WBC 6.9 4.0 - [place] 11.[address] LAB RBC Count 3.82 3.8 - 5.2 [place] 10e12/L [facility] LAB Hemoglobin 10.2 (L) 11.7 - [place] 15.7 g/dL [facility] LAB Hematocrit 30.8 (L) 35.0 - [place] 47.0 % [facility] LAB MCV 81 78 - 100 [place] fl [facility] MCH 26.7 26.5 - [place] 33.0 pg [facility] LAB MCHC 33.1 31.5 - [place] 36.5 g/dL [facility] LAB RDW 14.3 10.0 - [place] 15.0 % [facility] LAB Platelet Count 258 150 - [address] LAB Diff Method Automated [facility] LAB % Neutrophils 62.8 % [facility] LAB % Lymphocytes 31.8 % [facility] LAB % Monocytes 4.4 % [facility] LAB % Eosinophils 0.6 % [facility] LAB % Basophils 0.3 % [facility] LAB % Immature 0.1 % [place] Granulocytes [facility] LAB Absolute 4.3 1.6 - 8.3 [place] Neutrophil [facility] LAB Absolute 2.2 0.8 - 5.3 [place] Lymphocytes [address] LAB Absolute 0.3 0.0 - 1.3 [place] Monocytes [address] LAB Absolute 0.0 0.0 - 0.7 [place] Eosinophils [address] [place] [address] LAB Absolute 0.0 0.0 - 0.[address] [place] Basophils [address] [place] [address] LAB Abs Immature 0.0 0 - 0.4 [place] Granulocytes [address] [place] [address] LAB Specimen Anatomical Collection Method Collection Time Receive d Time (Source) Location / / Volume Laterality Blood specimen 06/09/2013 10:30 4 (specimen) PM NURSING PROGRAM DIRECTOR 10:45 PM NURSING PROGRAM DIRECTOR Jeremy Magaña MD LAB - BLOOD ORDERABLES Performing Organization Address City/State/ZIP Code Phon e Number [place] [address], [place] [address] [facility] LAB HCG qualitative urine (06/09/2013 10:20 PM NURSING PROGRAM DIRECTOR) P athologist Signature HCG Qual Urine Negative NEG [facility] LAB Specimen Anatomical Collection Method Collection Time Receive d Time (Source) Location / / Volume Laterality Urine specimen URINE SPECIMEN 06/09/2013 10:20 014 (specimen) OBTAINED BY CLEAN PM NURSING PROGRAM DIRECTOR 10:[address] CATCH PROCEDURE / Unknown Jeremy Magaña MD LAB - URINE ORDERABLES Performing Organization Address City/[facility]/ZIP Code Phon e Carlos Mukherjee [place] [address], [place] [address] [facility] LAB (ABNORMAL) UA with Microscopic (06/09/2013 10:20 PM NURSING PROGRAM DIRECTOR) Patholo gist Method Time Signature Color Urine Yellow [facility] LAB Appearance Urine Slightly [place] Cloudy [facility] LAB Glucose Urine Negative NEG mg/dL [facility] LAB Bilirubin Urine Negative NEG [facility] LAB Ketones Urine Negative NEG mg/dL [facility] LAB Specific [place] 1.013 1.003 - [place] Urine 1.035 [facility] LAB Blood Urine Negative NEG [facility] LAB pH Urine 8.0 (H) 5.0 - 7.0 [place] pH [facility] LAB Protein Albumin Negative NEG mg/dL [facility] LAB Urobilinogen Normal 0.0 - 2.0 [place] mg/dL mg/dL [facility] LAB Nitrite Urine Negative NEG [facility] LAB Leukocyte Negative NEG [place] Esterase Urine [facility] LAB Source Midstream [facility] LAB WBC Urine 1 0 - 2 [facility] LAB RBC Urine 2 0 - 2 [facility] LAB Squamous 9 (H) 0 - 1 [place] Epithelial /HPF /HPF [facility] LAB Mucous Urine Present (A) NEG /LPF [facility] LAB Specimen Anatomical Collection Method Collection Time Receive d Time (Source) Location / / Volume Laterality Urine specimen URINE SPECIMEN 06/09/2013 10:20 014 (specimen) OBTAINED BY CLEAN PM NURSING PROGRAM DIRECTOR 10:[address] CATCH PROCEDURE / Unknown Jeremy Magaña MD LAB - URINE ORDERABLES Performing Organization Address City/State/ZIP Code Phon e Number M [facility] [address], [place] [address] [facility] LAB Beta strep group A culture (06/09/2013 10:15 PM NURSING PROGRAM DIRECTOR) Component Value Ref Test Analysis Performed At Patholo gist Range Method Time Signature Specimen Throat [facility] LAB Culture Micro No Beta [facility] Streptococcus MICROBIOLOGY isolated Micro Report FINAL 06/12/2013 [facility] Status MICROBIOLOGY Specimen Anatomical Collection Method Collection Time Receive d Time (Source) Location / / Volume Laterality 06/09/2013 10:15 06/09/2013 PM NURSING PROGRAM DIRECTOR 10:25 PM NURSING PROGRAM DIRECTOR Jeremy Magaña MD LAB - MICRO GENERAL ORDERABL ES Performing Organization Address City/[facility]/ZIP Code Phon e Number [address] [address] [facility] MICROBIOLOGY Rapid strep screen (06/09/2013 10:15 PM NURSING PROGRAM DIRECTOR) Component Value Ref Test Analysis Performed At [facility] gist Range Method Time Signature Specimen Throat [facility] LAB Rapid Strep A NEGATIVE: No Group A strepto coccal antigen detected by immunoassay, await PARRISH Screen culture report. [facility] Micro Report FINAL 06/09/2013 [facility] LAB Specimen Anatomical Collection Method Collection Time Receive d Time (Source) Location / / Volume Laterality Specimen from 06/09/2013 10:15 06/09/2013 throat PM NURSING PROGRAM DIRECTOR 10:25 PM NURSING PROGRAM DIRECTOR (specimen) Jeremy Magaña MD LAB - MICRO GENERAL ORDERABL ES Performing Organization Address City/[facility]/ZIP Code Phon e Number M [facility] [address], [place] [address] [facility] documented in this encounter Visit Diagnoses Diagnosis Constipation - Primary Unspecified constipation documented in this encounter Administered Medications Inactive Administered Medications - up to 3 most recent administrations Medication Order MAR Action Action Date Dose Rate Site iopamidol (ISOVUE-370) 76% Given 06/09/2013 11:35 PM NURSING PROGRAM DIRECTOR 58 mLs solution 500 mL 500 mL, Intravenous, ONCE, On Fri06/09/13 at 2330, For 1 dose ketorolac (TORADOL) injection 30 mg Given 06/09/2013 10:36 PM NURSING PROGRAM DIRECTOR 30 mg 30 mg, Intravenous, ONCE, On Fri06/09/13 at 2230, For 1 dose, Do not give within 6 hours of Ibuprofen. lidocaine (XYLOCAINE) 2 % 15 mL, alum & mag Given 09/2013 10:36 PM NURSING PROGRAM DIRECTOR 30 mLs hydroxide-simethicone (MYLANTA ES/MAALOX ES) 15 mL GI Cocktail 30 mL, Oral, ONCE, On Fri06/09/13 at 2230, For 1 dose ondansetron (ZOFRAN) injection 4 mg Given 06/09/2013 10:36 PM NURSING PROGRAM DIRECTOR 4 mg 4 mg, Intravenous, EVERY 30 MIN PRN, nausea, vomiting, Administer over 2-5 Minutes, Starting on Fri06/09/13 at 2217, For 3 doses, May repeat in 30 minutes as needed, up to 3 doses. sodium chloride 0.9 % BOLUS New Bag 06/09/2013 10:36 PM NURSING PROGRAM DIRECTOR 1, 000 mLs 1000 mL/hr 1,000 mL Intravenous, 1,000 mL, ONCE, at 1,000 mL/hr, Administer over 1 Hours, On Fri06/09/13 at 2230, For 1 dose sodium chloride 0.9 % BOLUS 1,000 mL New Bag 06/09/2013 11:36 PM NURSING PROGRAM DIRECTOR 56 mLs Intravenous, 1,000 mL, ONCE, On Fri06/09/13 at 2330, For 1 dose documented in this encounter Active and Recently Administered Medications Times are shown in NURSING PROGRAM DIRECTOR. Scheduled Medication Order 06/08/2013 06/09/2013 06/10/2013 iopamidol (ISOVUE-370) 76% solution 500 mL (COMPLETED) 2334 (Given - Provider: Matt Farooq) 500 mL, Intravenous, ONCE, Fri06/09/13 at 2330, For 1 dose ketorolac (TORADOL) injection 30 mg (COMPLETED) 223 (Given - Provider: Olga Angulo RN) 30 mg, Intravenous, ONCE, Fri06/09/13 at 2230, For 1 dose, Do not give within 6 hours of Ibuprofen. lidocaine (XYLOCAINE) 2 % 15 mL, alum & mag hydroxide-simethicone (MYLANTA ES/MAALOX ES) 15 mL GI Cocktail (COMPLETED) 2235 (Give n - Provider: Olga Angulo RN) 30 mL, Oral, ONCE, Fri06/09/13 at 2230, For 1 dose sodium chloride 0.9 % BOLUS 1,000 mL (COMPLETED) 223 (New Bag - Provider: Olga Angulo RN) 0054 (Stopped - Provider: Justin reardon RN) Intravenous, 1,000 mL, ONCE, at 1,000 mL /hr, Administer over 1 Hours, On Fri06/09/13 at 2230, For 1 dose sodium chloride 0.9 % BOLUS 1,000 mL (COMPLETED) 233 (New Bag - Provider: Matt Farooq)2340 (Stopped - Provider: Matt Farooq) Intravenous, 1,000 mL, ONCE, Fri06/09/13 at 2330, For 1 dose PRN Medication Order 06/08/2013 06/09/2013 06/10/2013 ondansetron (ZOFRAN) injection 4 mg (CANCELED) 2235 (Given - Provider: Olga Angulo RN) 4 mg, Intravenous, EVERY 30 MIN PRN, sheryl sea, vomiting, for 2 Minutes, Starting Fri06/09/13 at 2217, For 3 doses, May repeat in 30 minutes as needed, up to 3 doses. documented in this encounter Care Teams Web Design Instructor Relationship Specialty Start Date End Date Félix Arteaga MD PCP - General 06/25/05 08/29/14 [facility] [address] [address] documented as of this encounter
--- OUTSIDE RECORDS SUMMARY | 2022-02-09 01:03 | XMS_ITS | Encounter Summary ---
:1975 Author Organization [place] Address [address] [facility] [place] [address] Care Team Providers Name Role Phone Félix Arteaga MD Primary Care Provider + Reason for Visit Reason Comments Urinary Problem frequent urination, 'hot' fe eling, has light cramping feeling, test for bladder infection, weak feeling, had cervical cone biopsy Encounter Details Date Type Department Care Team Description 11/22/2010 Office Visit [facility] Hunter Roman Freque ncy of urination Clinic [place] MD and polyuria (Primary [address] [address] [facility]) [place] [address] [phone] Social History Tobacco Use Types Packs/Day Years [...] Sign Reading Time Taken Comments Blood Pressure 108/68 11/22/2010 9:59 AM CDT Pulse 84 11/22/2010 9:59 AM CDT Temperature 36.4 ??C (97.6 ??F) 11/22/2010 9:59 AM CDT Respiratory Rate 16 11/22/2010 9:59 AM CDT Oxygen Saturation 100% 11/22/2010 9:59 AM CDT Inhaled Oxygen Concentration - - Weight 64.9 kg (143 lb) 11/22/2010 9:59 AM CDT Height 161.3 cm (5' 3.5) 11/22/2010 9:59 AM CDT Body Mass Index 24.93 11/22/2010 9:59 AM CDT documented in this encounter Progress Notes Hunter Roman MD - 11/22/2010 11:14 AM CDT Hg Next week SUBJECTIVE: Alyssa Aguillon, a 35 year old female scheduled an appointment to discuss the following issues: FREQUENCY OF URINATION AND POLYURIA; she does have a little bit of a complicated historynext she is concerned that his urinary tract infection at this particular time. She's been hospitalized after having some bleeding from surgical procedure. I do have that her hemoglobin had dropped approximately a gram. I suspect from her bleeding from theprocedure. She is currently not on any iron Medical, social, surgical, and family histories reviewed. ROS: CONSTITUTIONAL:As mentioned above and fatigue E: NEGATIVE for vision changes R: NEGATIVE for significant cough or SOB CV: NEGATIVE for chest pain, palpitations GI: NEGATIVE for nausea, abdominal pain, heartburn, or change in bowel habits female: as mentioned above please see the clinic charts M: NEGATIVE for significant arthralgias or myalgia N: NEGATIVE for weakness, dizziness or paresthesias or headache OBJECTIVE: BP 108/68 Pulse 84 Temp(Src) 97.6 ??F (36.4 ??C) (Oral) Resp 16 Ht 5' 3.5 (1.613 m) Wt 143 lb (64.864 kg) BMI 24.93 kg/m2 SpO2 100% EXAM: GENERAL APPEARANCE: alert EYES: EOMI, PERRL HENT: ear canals and TM's normal and nose and mouth without ulcers or lesions RESP: lungs clear to auscultation - no rales, rhonchi or wheezes CV: regular rates and rhythm, normal S1 S2, no S3 or S4 and no murmur, click or rub - ABDOMEN: soft, nontender, no HSM or masses and bowel sounds normal MS: extremities normal- no gross deformities noted, no evidence of inflammation in joints, FROM in all extremities. NEURO: Normal strength and tone, sensory exam grossly normal, mentation intact and speech normal PSYCH: mentation appears normal and affect normal/bright ASSESSMENT/PLAN: 788.41W Frequency of urination and polyuria (primary encounter diagnosis) Comment: Plan: UA with Microscopic, CBC with platelets, ciprofloxacin (CIPRO) 250 MG tablet, ciprofloxacin (CIPRO) 250 MG tablet I did discuss with her that her hemoglobin continues to be down we will check it again within the week. If it is down at that point I would suspect she still has some bleeding and may need a transfusion may need a reevaluation regarding the previousprocedure. A review of systems and questioning did not reveal any symptoms that would be suggestive of a bleeding problem documented in this encounter Nursing Notes 11/22/2010 9:45 AM CDT >> PENNY BARRETT [facility] Nov 22, 2010 10:03 AM Patient presents with: Urinary Problem - frequent urination, 'hot' feeling, has light cramping feeling, test for bladder infection, weak feeling, had cervical cone biopsy Initial BP 108/68 Pulse 84 Temp(Src) 97.6 ??F (36.4 ??C) (Oral) Resp 16 Ht 5' 3.5 (1.613 m) Wt 143 lb (64.864 kg) BMI 24.93 kg/m2 SpO2 100% Estimated Body mass index is 24.93 kg/(m^2) ascalculated from the following: Height as of this encounter: 5' 3.5(1.613 m). Weight as of this encounter: 143 lb(64.864 kg).. BP completed using cuff size: large Penny Barrett [facility] documented in this encounter Plan of Treatment Not on filedocumented as of this encounter Procedures Procedure Name Priority Date/Time Associated Comments Diagnosis CBC WITH PLATELETS Routine 11/22/2010 10:34 AM Frequency of Re sults for this CDT urination and procedure are in polyuria the results section. UA WITH MICROSCOPIC Routine 11/22/2010 10:33 AM Frequency of R esults for this CDT urination and procedure are in polyuria the results section. documented in this encounter Results (ABNORMAL) CBC with platelets (11/22/2010 10:34 AM CDT) P athologist Signature WBC 8.2 4.0 - 11.0 [facility] RBC Count 3.31 (L) 3.8 - 5.2 [facility] 10e12/L [facility] Hemoglobin 9.1 (L) 11.7 - 15.7 [facility] g/dL [facility] Comment: Results confirmed by repeat sean t Hematocrit 27.8 (L) 35.0 - 47.0 % [facility] MCV 84 78 - 100 fl [facility] RID [facility] MCH 27.5 26.5 - 33.0 pg [facility] MCHC 32.7 31.5 - 36.5 g/dL [facility] RDW 13.6 10.0 - 15.0 % [facility] IDGE [facility] Platelet Count 220 150 - 450 10e9/L [facility] Specimen Anatomical Collection Method Collection Time Receive d Time (Source) Location / / Volume Laterality Blood specimen 11/22/2010 10:34 1 (specimen) AM CDT 10:36 AM CDT Hunter Roman MD LAB - BLOOD ORDERABLES Performing Organization Address City/State/ZIP Code Phon e Number [facility] [id number] [place] [id number] [facility] (ABNORMAL) UA with Microscopic (11/22/2010 10:33 AM CDT) Patholo gist Method Time Signature Color Urine Yellow [facility] Appearance Urine Clear [facility] Glucose Urine Negative NEG mg/dL [facility] Bilirubin Urine Negative NEG [facility] Ketones Urine Negative NEG mg/dL [facility] Specific Reading <=1.005 1.003 - [place] Urine 1.035 [facility] pH Urine 6.0 5.0 - 7.0 [place] pH [facility] Protein Albumin Negative NEG mg/dL [place] Urine [facility] Urobilinogen 0.2 0.2 - 1.0 [place] Urine EU/dL [facility] Nitrite Urine Negative NEG [facility] Blood Urine Moderate (A) NEG [facility] Leukocyte Small (A) NEG [place] Esterase Urine [facility] Source Midstream [place] Urine [facility] WBC Urine 2-5 (A) 0 - 2 [place] /HPF [facility] RBC Urine 2-5 (A) 0 - 2 [place] /HPF [facility] Squamous Few FEW /LPF [place] Epithelial /LPF [facility] Bacteria Urine Few (A) NEG /HPF [facility] Specimen Anatomical Collection Method Collection Time Receive d Time (Source) Location / / Volume Laterality Urine specimen 11/22/2010 10:33 1 (specimen) AM CDT 10:35 AM CDT Hunter Roman MD LAB - URINE ORDERABLES Performing Organization Address City/State/ZIP Code Phon e Number [facility] [id number] [place] [id number] [facility] documented in this encounter Visit Diagnoses Diagnosis Frequency of urination and polyuria - Pr imary Urinary frequency documented in this encounter Care Teams Procurement Clerk Relationship Specialty Start Date End Date Félix Arteaga MD PCP - General 06/25/05 08/29/14 [facility] [address] [place] [address] documented as of this encounter
--- OUTSIDE RECORDS SUMMARY | 2022-02-09 01:03 | XMS_ITS | Encounter Summary ---
:1975 Author Organization [place] Address [address] [place] [address] Care Team Providers Name Role Phone Félix Arteaga MD Primary Care Provider + Encounter Details Date Type Department Care Team Description 12/03/2010 Abstract [facility] [place]osi [place] [address] [place], [place] [address] [facility] [address] [place] [address] (Wo rk) Social History Tobacco Use Types [...] Sign Reading Time Taken Comments Blood Pressure 129/86 12/03/2010 7:13 PM CDT Pulse 76 12/03/2010 7:13 PM CDT Temperature - - Respiratory Rate 20 12/03/2010 7:13 PM CDT Oxygen Saturation 100% 12/03/2010 7:13 PM CDT Inhaled Oxygen Concentration - - Weight - - Height - - Body Mass Index - - documented in this encounter Plan of Treatment Not on filedocumented as of this encounter Visit Diagnoses Not on filedocumented in this encounter Care Teams Tungsten Refiner Relationship Specialty Start Date End Date Félix Arteaga MD PCP - General 06/25/05 08/29/14 [facility] [address] [place] [address] documented as of this encounter
--- OUTSIDE RECORDS SUMMARY | 2022-02-09 01:03 | XMS_ITS | Encounter Summary ---
:1975 Author Organization [place] Address [address] [place] [address] Care Team Providers Name Role Phone Félix Arteaga MD Primary Care Provider + Reason for Visit Reason Onset Date Comments ER F/U 06/10/2013 ER f/u 06/09/13 Cons tipation Encounter Details Date Type Department Care Team Description 06/10/2013 Telephone [facility] Félix Arteaga E R F/U (ER f/u Clinic [facility] Redd Baxter MD 06/09/13 [id number] [facility]) [place], [place] WELLNESS [address] [address] [phone] [place], [place] [address] (Wo rk) Social History [...] this encounter Miscellaneous Notes Telephone Encounter - Que Mena RN - 06/16/2013 1:12 PM CST ED / Discharge Outreach Protocol Patient Contact Attempt # 3 Was call answered? No. Que Mena RN PHONE STERILIZER Telephone Encounter - Que Mena RN - 06/15/2013 1:56 PM CST ED / Discharge Outreach Protocol Patient Contact Attempt #2 Was call answered? No. Que Mena RN PHONE STERILIZER Telephone Encounter - Que Mena RN - 06/14/2013 1:25 PM CST ED / Discharge Outreach Protocol Patient Contact Attempt # 1 Was call answered? No. Left message on voicemail with information to call me back. Que Mena RN PHONE STERILIZER Telephone Encounter - Ilene Rivas - 06/10/2013 3:04 PM CST Please call patient for ER f/u 06/09/13. Constipation. Ilene Rivas. Geotechnical Engineering Technician.. PHONE STERILIZER documented in this encounter Plan of Treatment Not on filedocumented as of this encounter Visit Diagnoses Not on filedocumented in this encounter Care Teams Pilling Machine Operator Relationship Specialty Start Date End Date Félix Arteaga MD PCP - General 06/25/05 08/29/14 [facility] [address] [place] [address] documented as of this encounter
--- OUTSIDE RECORDS SUMMARY | 2022-02-09 01:03 | XMS_ITS | Encounter Summary ---
:1975 Author Organization [place] Address [address] [facility] [place] [address] Care Team Providers Name Role Phone Félix Arteaga MD Primary Care Provider + Reason for Visit Reason Onset Date Comments Pt. Information/instruction 12/17/2010 Encounter Details Date Type Department Care Team Description 12/17/2010 Telephone [facility] Elissa Hurt MD Pt. [facility] Information/instruction [address] [address] [place] [address] [phone] (Wo rk) Social History Tobacco Use Types [...] this encounter Miscellaneous Notes Telephone Encounter - Elissa Hurt MD - 12/17/2010 2:54 PM CDT [employer] message sent to pt Elissa Hurt MD documented in this encounter Plan of Treatment Not on filedocumented as of this encounter Visit Diagnoses Not on filedocumented in this encounter Care Teams Assembler Motor Vehicle Relationship Specialty Start Date End Date Félix Arteaga MD PCP - General 06/25/05 08/29/14 [facility] [address] [place] [address] documented as of this encounter
--- OUTSIDE RECORDS SUMMARY | 2022-02-09 01:03 | XMS_ITS | Encounter Summary ---
:1975 Author Organization [place] Address [address] [place] [address] Care Team Providers Name Role Phone Félix Arteaga MD Primary Care Provider + Reason for Visit Reason Onset Date Comments Fatigue 09/21/2012 Gas 09/21/2012 Abdominal Pain 09/21/2012 Back Pain 09/21/2012 Encounter Details Date Type Department Care Team Description 09/21/2012 Telephone [facility] Félix Arteaga; Gas; [facility] [place] Redd Baxter MD Abdominal Pain; Back [address] [facility] [place], [place] [address] [address] [phone] [place], [place] [address] (Wo rk) Social History [...] Miscellaneous Notes Telephone Encounter - Erica Stone - 09/21/2012 4:59 PM CDT Patient states on and off for last 3 weeks has been having episodes of weakness that does not feel like she can walk. Also states has bloating and diarrhea. States not a big person and stomach is very bloated. States also having back pain that is so severe she can barely walk. Advised ER for evaluation. Will have her [address] her there. Message handled by Nurse Triage Erica Stone R.N. documented in this encounter Plan of Treatment Not on filedocumented as of this encounter Visit Diagnoses Not on filedocumented in this encounter Care Teams Retail Analytics Manager Relationship Specialty Start Date End Date Félix Arteaga MD PCP - General 06/25/05 08/29/14 [facility] [address] [place] [address] documented as of this encounter
--- OUTSIDE RECORDS SUMMARY | 2022-02-09 01:03 | XMS_ITS | Encounter Summary ---
:1975 Author Organization [facility] Address [address] [place] [address] Care Team Providers Name Role Phone Félix Arteaga MD Primary Care Provider + Reason for Visit Reason Comments Pharyngitis Encounter Details Date Type Department Care Team Description 06/27/2013 Emergency [facility] [address] reptococcal pharyngitis (Primary Dx); [facility] [address] [place], [place] [address] [employer] [id number] [address] [address] [place], [place] [id number] (Wo rk) Social History Tobacco Use Types [...] Sign Reading Time Taken Comments Blood Pressure 121/82 06/27/2013 9:01 PM HEALTH DIRECTOR Pulse 80 06/27/2013 9:01 PM HEALTH DIRECTOR Temperature 37.1 ??C (98.7 ??F) 06/27/2013 9:01 PM HEALTH DIRECTOR Respiratory Rate 20 06/27/2013 10:40 PM HEALTH DIRECTOR Oxygen Saturation 100% 06/27/2013 9:01 PM HEALTH DIRECTOR Inhaled Oxygen Concentration - - Weight - - Height - - Body Mass Index - - documented in this encounter Discharge Instructions Discharge InstructionsArcadio Otto MD - 06/27/2013 9:58 PM CST Discharge Instructions Abdominal Pain Abdominal pain can [...] directed by your doctor today. Before using [id number] medications, ask your doctor and make sure [...] or if there is anythingthat worries you. TH DIRECTOR documented in this encounter Medications at Time of Discharge Medication Sig Dispensed Refills Start Date End Date acetaminophen (TYLENOL) Take 1-2 tablets by 0 12/29/2013 500 MG tablet mouth every 6 hours as needed. docusate sodium 100 MG Take 100 mg by 30 tablet 0 4 09/06/2013 tablet mouth daily BFW-Ahqg-LpQvaf-MgHydr-Si Take 5-10 mLs by 237 mL 1 [...] mouth daily (with breakfast). fluticasone (FLONASE) 50 [place] 1-2 sprays 1 Package 0 05/0709/06/2013 MCG/ACT [...] tabletIndications: Acute times daily pharyngitis, Strep throat documented as of this encounter ED Notes Arcadio Otto MD - 06/28/2013 12:41 AM CST CHIEF COMPLAINT: My strep throat is still present, and my belly is bloated. HISTORY OF PRESENT ILLNESS: The patient Courtney Lizama is a very pleasant 37-year-old woman who presents to the Emergency Room with complaints of having a sore throat for some time. The patient states that she was seen by her regular doctor approximately 3 weeks ago. She was diagnosed with Strep throat at that time. She was placed on amoxicillin and states that she did not have significant improvement while on this medication. She thought that her throat was improving to a mild degree, but then it seemed to get worse again. She went back and saw her doctor and had another Strep test that was positive. She was switched from amoxicillin to penicillin. However, she states that she continues to feel very fatigued and has intermittent discomfort in her throat. She denies any fevers with this. She denies any true difficulty swallowing or breathing. She is unclear of any sick contacts that would have given her these symptoms. The patient has a secondary concern about abdominal pain and bloating. The patient states that this seems to have been present ever since she was started on antibiotics. She describes a fullness in herleft side that comes and goes. She notes that at times it is very crampy and painful, but at other times it is completely resolved. She denies having any diarrhea with this. She was seen in our Emergency Department for this exact same issue a few weeks ago and had a CT scan and a full lab work with nosignificant results coming back other than constipation. The patient otherwise denies any other complaints at this juncture. PAST MEDICAL HISTORY: 1. Dysfunctional uterine bleeding. 2. Anemia. 3. Ovarian cysts. MEDICATIONS: 1. Penicillin course currently. 2. Iron. 3. control pills. 4. Ibuprofen. ALLERGIES: None. SOCIAL HISTORY: The patient does not smoke or drink alcohol. REVIEW OF SYSTEMS: Pertinent positives and negatives are as above. All other systems are reviewed and negative. PHYSICAL EXAMINATION: VITAL SIGNS: Blood pressure 121/82, heart rate of 80, respiratory rate of 18, temperature 98.7 temporally and satting 100% on room air. GENERAL: Ms. Lizama is a pleasant 37-year-old female resting comfortably on the bed and showing no signs of acute distress. HEENT: Pupils equal, reactive to light, extraocular movements intact. The patient has rhinorrhea. She has moist mucous membranes, normal tongue and tonsils. LYMPHATICS: No significant anterior, posterior or cervical lymphadenopathy. CARDIOVASCULAR: Regular rate and rhythm, no murmurs, gallops or rubs. RESPIRATORY: Lungs clear to auscultation bilaterally without wheezes, rales or rhonchi. GASTROINTESTINAL: Positive bowel sounds, abdomen soft, nontender, nondistended. MUSCULOSKELETAL: Full range of motion of all extremities without any difficulty. SKIN: Warm and dry without rashes. NEUROLOGIC: Nonfocal examination. PSYCHIATRIC: Normal affect. EMERGENCY DEPARTMENT COURSE AND MEDICAL DECISION MAKING: Nursing notes were reviewed and agreed with. The patient did well while in the Emergency Department. The patient presents with concerns for having a persistent sore throat with a known diagnosis of Strep throat. She states that her throat does not seem to be getting better as fast as she would expect. I explained to her that antibiotics do not greatly improve sore throats, but merely keep her from getting rheumatic fever. She asked if she could be prescribed something to help reduce the swelling in her throat, and we will place her on a Medrol Dosepak to help with this. Regarding her stomach she presents with the exact same symptoms that brought her to the Emergency Department just a short time ago; at that time she had a negative workup. She describes colic which seems to have begun after starting antibiotics. I have to wonder if she simply is having excessive gas and bloating secondary to killing off the good bacterial khalida. Her abdominal examination is otherwise unremarkable, and she is afebrile. Her pain is mostly on the left side. Certainly diverticulitis is possible, but she is awfully young for this pathology. PLAN: 1. Medrol Dosepak. 2. Considering that the patient just had a similar workup she is comfortable moving forward without lab work or a CT scan although these were offered. 3. We discussed taking probiotics and seeing how this moves forward. 4. I recommend that she needs to see her regular doctor in the near future. 5. She should return to the Emergency Department immediately and without hesitation for worsening pain, fevers, intractable vomiting, diarrhea or other emergent concerns. 6. Ms. Lizama is comfortable with this plan and seems to be a reasonable patient. DIAGNOSES: 1. Streptococcal pharyngitis. 2. Colicky abdominal pain. ARCADIO OTTO MD MT: [id number] Name: COURTNEY LIZAMA MRN: [id number] Account: [id number] : 1975 Visit Date: 06/27/2013 Document: [id number] cc: Félix Arteaga MD TH DIRECTOR Janet Rush, RN - 06/27/2013 10:42 PM CST Discharge instructions reviewed with patient. Patient verbalizes her understanding. DC prescriptionsalso reviewed. DC To home per order. All questions answered. TH DIRECTOR Malissa Colby, DELLA - 06/27/2013 9:04 PM CST Pt complains of sore throat. Strep throat 3 weeks ago; finished amoxacillin then. Saw PCP on Friday with continued strep; started PCN; now having stomach aches and throat feels unchanged. In triage airway, breathing and circulation intact without need for intervention. Alert and interacting appropriately for age and situation. HOME MEDICATIONS: List in [facility] is NOT correct: no daily medications except the penicillin. TH DIRECTOR documented in this encounter Plan of Treatment Not on filedocumented as of this encounter Visit Diagnoses Diagnosis Streptococcal pharyngitis - Primary Streptococcal sore throat Colic cramps Colic documented in this encounter Care Teams Biological Sciences Instructor Relationship Specialty Start Date End Date Félix Arteaga MD PCP - General 06/25/05 [facility]/29/[facility] [address] [place] [address] documented as of this encounter
[2022-02-09 01:04] LABS: Creatinine* 0.6 mg/dL (0.5-1.5); Est. Creatinine Clearance* 99.02; Estimated Glomerular Filt Rate 111 ml/min
--- OUTSIDE RECORDS SUMMARY | 2022-02-09 01:04 | XMS_ITS | Encounter Summary ---
:1975 Author Organization [facility] Address [address] [place] [address] Care Team Providers Name Role Phone Félix Arteaga MD Primary Care Provider + Encounter Details Date Type Department Care Team Description 08/09/2009 Historic Results [facility] Damir Arteaga [facility] Oxjose Baxter MD [address] [place] [address] [address] [phone] [place], [place] [phone] (Wo rk) Social History Tobacco Use Types Packs/Day Years Used Date Never Smoker Alcohol Use Standard Drinks/Week Comments Not Asked 0 (1 standard drink = 0.6 oz pure alcoho l) Sex Assigned at Date Recorded Not on file documented as of this encounter Plan of Treatment Not on filedocumented as of this encounter Procedures Procedure Name Priority Date/Time Associated Comments Diagnosis WET PREPARATION Routine 08/09/2009 8:45 PM Result s for this CDT procedure are i n the results section. NEISSERIA GONORRHOEAE Routine 08/09/2009 8:45 PM Results for this PCR CDT procedure are i n the results section. CHLAMYDIA TRACHOMATIS Routine 08/09/2009 8:45 PM Results for this PCR CDT procedure are i n the results section. CBC WITH PLATELETS & STAT 08/09/2009 8:20 PM R esults for this DIFFERENTIAL CDT procedure are i n the results section. BASIC METABOLIC PANEL STAT 08/09/2009 8:20 PM Results for this CDT procedure are i n the results section. HCG QUALITATIVE URINE STAT 08/09/2009 7:30 PM Results for this CDT procedure are i n the results section. ROUTINE UA WITH STAT 08/09/2009 7:30 PM Result s for this MICROSCOPIC CDT procedure are i n the results section. documented in this encounter Results Wet prep (08/09/2009 8:45 PM CDT) [facility] Method Time Signature Specimen Vagina MISYS Description Micro Report FINAL MISYS Status 08/09/2009 Wet Prep Moderate MISYS PMNs seen Comment: No yeast seen No clue cells seen No Trichomonas seen Specimen Anatomical Collection Method Collection Time Receive d Time (Source) Location / / Volume Laterality 08/09/2009 8:45 PM 0 9:11 CDT PM CDT Félix Arteaga MD LAB - MICRO GENERA L ORDERABLES Performing Organization Address City/[facility]/ZIP Code Phon e Number MISYS Chlamydia trachomatis PCR (08/09/2009 8:45 PM CDT) Component Value Ref Test Analysis Performed At [facility] Range Method Time Signature Specimen Cervical MISYS Description Chlamydia Negative for C. MISYS Trachomatis PCR trachomatis rRNA by behaviour support teacher mediated amplification. Comment: A negative result by behaviour support teacher medi ated amplification does not preclude the presence of C. trachomatis infection be cause results are dependent on proper and adequate collection, absence of inh ibitors, and sufficient rRNA to be detected. Specimen Anatomical Collection Method Collection Time Receive d Time (Source) Location / / Volume Laterality 08/09/2009 8:45 PM 0 9:11 CDT PM CDT Félix Arteaga MD LAB - MICRO GENERA L ORDERABLES Performing Organization Address City/State/ZIP Code Phon e Number MISYS Neisseria gonorrhoeae PCR (08/09/2009 8:45 PM CDT) [facility] Method Time Signature Specimen Cervical MISYS Descrip N Gonorrhea Negative for N. MISYS PCR gonorrhoeae rRNA by behaviour support teacher mediated amplification. Comment: A negative result by behaviour support teacher medi ated amplification does not preclude the presence of N. gonorrhoeae infection be cause results are dependent on proper and adequate collection, absence of inh ibitors, and sufficient rRNA to be detected. Specimen Anatomical Collection Method Collection Time Receive d Time (Source) Location / / Volume Laterality 08/09/2009 8:45 PM 0 9:11 CDT PM CDT Félix Arteaga MD LAB - MICRO GENERA L ORDERABLES Performing Organization Address City/State/ZIP Code Phon e Number MISYS (ABNORMAL) CBC with platelets differential (08/09/2009 8:20 PM CDT) [facility] gist Method Time Signature MCV 87 78 - 100 MISYS fl MCH 29.3 26.5 - MISYS 33.0 pg MCHC 33.7 31.5 - MISYS 36.5 g/dL RDW 13.4 10.0 - MISYS 15.0 % WBC 9.1 4.0 - MISYS 11.0 10e9/L RBC Count 3.93 3.8 - 5.2 MISYS 10e12/L Hemoglobin 11.5 (L) 11.7 - MISYS 15.7 g/dL Hematocrit 34.1 (L) 35.0 - MISYS 47.0 % % Neutrophils 73 40 - 75 % MISYS % Lymphocytes 22 20 - 48 % MISYS % Monocytes 5 0 - 12 % MISYS % Eosinophils 0 0 - 6 % MISYS % Basophils 0 0 - 2 % MISYS Platelet Count 230 150 - 450 MISYS 10e9/L Absolute 6.6 1.6 - 8.3 MISYS Neutrophil 10e9/L Absolute 2.0 0.8 - 5.3 MISYS Lymphocytes 10e9/L Absolute 0.5 0.0 - 1.3 MISYS Monocytes 10e9/L Absolute 0.0 0.0 - 0.7 MISYS Eosinophils 10e9/L Absolute 0.0 0.0 - 0.2 MISYS Basophils 10e9/L Platelet Normal MISYS Estimate Diff Method Manual Method MISYS RBC Morphology Consistent MISYS with reported results Specimen Anatomical Collection Method Collection Time Receive d Time (Source) Location / / Volume Laterality 08/09/2009 8:20 PM 0 8:06 CDT PM CDT Valerie Aj MD LAB - BLOOD ORDERABLES Performing Organization Address City/State/[facility] Code Phon e Number MISYS Basic metabolic panel (08/09/2009 8:20 PM CDT) athologist Signature Sodium 139 133 - 144 MISYS mmol/L Potassium 3.8 3.4 - 5.3 MISYS mmol/L Chloride 102 94 - 109 MISYS mmol/L Carbon Dioxide 28 20 - 32 MISYS mmol/L Glucose 81 60 - 99 MISYS mg/dL Urea Nitrogen 11 5 - 24 MISYS mg/dL Creatinine 0.62 0.52 - 1.04 MISYS mg/dL Comment: New IDMS-traceable calibration beginning 09/03/07 GFR Estimate >90 >60 mL/min/1.7m2 MISYS GFR Estimate If Black >90 >60 mL/min/1.7m2 M ISYS Calcium 9.1 8.5 - 10.4 mg/dL MISYS Anion Gap 8 6 - 17 mmol/L MISYS Specimen Anatomical Collection Method Collection Time Receive d Time (Source) Location / / Volume Laterality 08/09/2009 8:20 PM 0 8:06 CDT PM CDT Valerie Aj MD LAB - BLOOD ORDERABLES Performing Organization Address City/State/[facility] Phon e Number MISYS (ABNORMAL) Routine UA with microscopic (08/09/2009 7:30 PM CDT) [facility] Method Time Signature Source Midstream MISYS Urine Color Urine Yellow MISYS Appearance Urine Clear MISYS Glucose Urine Negative NEG mg/dL MISYS Bilirubin Urine Negative NEG MISYS Ketones Urine Negative NEG mg/dL MISYS Specific [place] 1.015 1.003 - MISYS Urine 1.035 Blood Urine Negative NEG MISYS pH Urine 7.0 5.0 - 7.0 MISYS pH Protein Albumin Negative NEG mg/dL MISYS Urine Urobilinogen Normal 0.0 - 2.0 MISYS mg/dL mg/dL Nitrite Urine Negative NEG MISYS Leukocyte Negative NEG MISYS Esterase Urine WBC Urine 0 0 - 2 MISYS /HPF RBC Urine 2 0 - 2 MISYS /HPF Squamous 3 (H) 0 - 1 MISYS Epithelial /HPF /HPF Urine Transitional Epi <1 0 - 1 MISYS /HPF Mucous Urine Present (A) NEG /LPF MISYS Specimen Anatomical Collection Method Collection Time Receive d Time (Source) Location / / Volume Laterality 08/09/2009 7:30 PM 0 8:06 CDT PM CDT Valerie Aj MD LAB - URINE ORDERABLES Performing Organization Address City/State/ZIP Code Phon e Number MISYS HCG qualitative urine (08/09/2009 7:30 PM CDT) P athologist Signature HCG Qual Urine Negative NEG MISYS Comment: This test provides a presumptive diagno sis of or non-. A confirmed diagnosis should on ly be made by a physician after all clinical and laboratory findings have b een evaluated. Specimen Anatomical Collection Method Collection Time Receive d Time (Source) Location / / Volume Laterality 08/09/2009 7:30 PM 0 8:06 CDT PM CDT Valerie Aj MD LAB - URINE ORDERABLES Performing Organization Address City/State/ZIP Code Phon e Number MISYS documented in this encounter Visit Diagnoses Not on filedocumented in this encounter Care Teams Breaker Up Machine Operator Relationship Specialty Start Date End Date Félix Arteaga MD PCP - General 06/25/05 08/29/14 [facility] [address] [place] [address] documented as of this encounter
--- OUTSIDE RECORDS SUMMARY | 2022-02-09 01:04 | XMS_ITS | Encounter Summary ---
:1975 Author Organization [facility] Address [address] [place] [address] Care Team Providers Name Role Phone Félix Arteaga MD Primary Care Provider + Encounter Details Date Type Department Care Team Description 10/18/2010 Operative Report [facility] Snwo Rocha (Machine Worker) [facility] MD Sasha Results [address] [place] [address] Social History Tobacco Use Types Packs/Day Years [...] documented as of this encounter Progress Notes Snow Buckner MD - 11/01/2010 8:05 PM CDT FINAL PREOPERATIVE DIAGNOSES: 1. ASC-H Pap smear at primary clinic. 2. Thickened endometrium by ultrasound which was suspicious for intracavitary defect. 3. Recurrent abdominal pain. POSTOPERATIVE DIAGNOSES: 1. ASC-H Pap smear at primary clinic. 2. Thickened endometrium by ultrasound which was suspicious for intracavitary defect. 3. Recurrent abdominal pain. SURGEON: Snow Buckner M.D. EXECUTIVE COMPENSATION ANALYST: CHEIKH Cho ANESTHESIA: General endotracheal. PROCEDURES: 1. Colposcopy with biopsies and ECC. 2. Operative hysteroscopy with polypectomy. 3. D&C. 4. Diagnostic laparoscopy. COMPLICATIONS: None apparent. ESTIMATED BLOOD LOSS: 25 cc. FINDINGS: Colposcopy of the cervix revealed a large patulous cervix that is quite anterior in the vagina and hard to visualize. There were some mild acetowhite epithelium with vessels at the 7-8 o'clock position within the prior LEEP bed. That was the only area of nonstaining with Lugol's as well. By h ysteroscopy, the patient has a thick endometrium with 2 polyps in the anterior uterine wall - grossly. By laparoscopy, the patient has a normal-appearing pelvis. The uterus is retroverted and not very mobile. She diffusely has prominent vascularity and veins of her pelvis. There were minimal filmy adhe sions around her cecum at the site of her prior appendectomy. No adhesions to the anterior abdominalwall. No adhesions in the umbilical area (where her pain has been). INDICATIONS: Ms. Courtney Lizama is a 35-year-old P 7-0-0-7 who was seen in the clinic on 09/27/2010 after Emergency Department visit for abdominal pain. There was no etiology for her abdominal pain, but a CT scan showed an enlarged uterus and a retained stool in the colon. This was followed up by ultrasound in our clinic which did show a thickened endometrial stripe of 30 mm and intracavitary defects. The patient was recommended to undergo hysteroscopy with polypectomy in the operating room. We also discussed NovaSure endometrial ablation but they are not sure they are done having children. Diane have very heavy menstrual cycles and uses both a tampon and a pad at the same time changing every 1-2 hours. She has been on iron for blood loss anemia for this problem. In the meantime, her Pap smear from her primary MD returned as ASC-H. She was recommended to have another colposcopy and elected to have this done in the operating room at the same time. She does have a history of cervical dyspla lakisha and had a LEEP in 2004 for SAMY(111). Finally, the patient was seen in the Emergency Department another time, the weekend of 10/13-10/14. Once again there was no etiology of her abdominal pain found.Her CT scan was only remarkable for the gas and stool in her colon again. Given this recurrence of her abdominal pain requiring emergency department visits, the patient was offered an exploratory laparoscopy. She was consented regarding the risks, benefits and alternatives and elected to proceed. DESCRIPTION OF PROCEDURE: The patient was taken to the operating room where she underwent general endotracheal anesthesia without difficulty. She was prepped and draped in the dorsal lithotomy positionin the usual sterile fashion and a Marcelo catheter was placed sterilely. [place] speculum was placed in the vagina and dilute acetic acid placed over the cervix. Colposcopy then performed for the above-noted findings. ECC performed sharply and ring forceps used to send the mucus to pathology. Lugol's solution was then placed in the upper vagina and cervix for the above-noted findings. A [employer] biopsy forceps was used to obtain 2 cervical biopsies which were also sent to pathology. The anterior cervi consuelo lip was grasped with a single-tooth tenaculum and the cervix was easily dilated to #7 Hegar's. Hysteroscope was then placed intrauterine for the above- noted findings. Hysteroscope removed and a sharp curetting performed of the entire uterine cavity. Endometrial curettings were sent to pathology. Hy steroscope again placed intrauterine and polyps were noted to be absent. No complications. Hysteroscope removed and the uterine manipulator was placed. Using sterile technique, attention was then turned to the abdomen where an incision was made in the umbilicus to accommodate a 10 mm port. The Karoline technique was used. The incision was carried through to the fascia. The fascia was grasped, elevated and incised carefully with a scalpel and was noted to be clear underneath. Stay sutures were placed with 0 Vicryl on each side. The peritoneum was then identified and elevated. It was palpated and felt to be clear of any tissue underneath so was enteredwith the scissors. It was free of any tissue underneath and this incision was extended laterally. The Karoline port was then placed and was stabilized with the 0 Vicryls. Laparoscope was placed to verifythe intraabdominal position. No evidence of any complications on entry. The 5 mm left lateral port was placed under direct visualization without complication. A blunt probe was used to perform careful inspection of the pelvis - uterus, tubes and bilateral ovaries all appeared normal. There was a normal- appearing ovarian cyst on the right. No evidence of any adhesions or apparent etiology for her pain. There were minimal filmy adhesions of the cecum along the staple line of the appendectomy. All instruments were then removed. Hemostasis was noted at the left lateral port on removal of that port site. All the air was desufflated from the abdomen. The 0 Vicryl stay sutures were tied togetherto close the 10 mm port. Dermabond glue was used to close the skin incisions. The patient tolerated the procedure very well. She went to the recovery room in stable condition. A Marcelo catheter was removed, as well as vaginal instruments, on completion of the case. Pneumo boots were on and activated throughout the entire procedure, she received Toradol on completion of the case. Electronically signed on 11/01/2010 20:04 by SNOW BUCKNER MD MT: [id number] Name: COURTNEY LIZAMA Account: [id number] : 1975 Procedure Date: 10/18/2010 Document: [id number] documented in this encounter Plan of Treatment Not on filedocumented as of this encounter Visit Diagnoses Not on filedocumented in this encounter Care Teams No Bake Molder Relationship Specialty Start Date End Date Félix Arteaga MD PCP - General 06/25/05 08/29/14 [facility] [address] [place] [address] documented as of this encounter
--- OUTSIDE RECORDS SUMMARY | 2022-02-09 01:04 | XMS_ITS | Encounter Summary ---
:1975 Author Organization [place] Address [address] [place] [address] Care Team Providers Name Role Phone Félix Arteaga MD Primary Care Provider + Encounter Details Date Type Department Care Team Description 09/21/2008 Emergency room [facility] Results MD Angel XXX RET[place] [address] Social History Tobacco Use Types Packs/Day Years Used Date Never Smoker Alcohol Use Standard Drinks/Week Comments Not Asked 0 (1 standard drink = 0.6 oz pure alcoho l) Sex Assigned at Date Recorded Not on file documented as of this encounter Progress Notes Interface, Starch Factory Laborer - 10/08/2008 2:13 PM CDT FINAL CHIEF COMPLAINT: Headache and flushing of the face and body. HISTORY OF PRESENT ILLNESS: Courtney Lizama is a 33-year-old female who was at work at noon when she suddenly developed a generalized headache and flushing of her face and body. She had not consumed anything unusual at lunch. She did experience short-lived epigastric pain lasting less than 1 minute, and also felt anxious with nausea and slight vertigo and near-syncope. The headache is frontal and has not been associated with fever, visual complaints, nausea or vomiting. She has no prior history of chronic recurring headaches. There has been no medication prescribed and/or use of an [id number] medication in recent days. She is under considerable stress with her spouse leaving the patient and her 4 children within the last 2 months. PAST MEDICAL HISTORY: Reveals that she has had no chronic illness for which she takes medications and no known allergies. PAST SURGICAL HISTORY: She has had no major surgeries. PERSONAL AND SOCIAL HISTORY: Please see present illness. In addition, the patient is employed in [employer], denying tobacco and problem drug use. FAMILY HISTORY: Negative. REVIEW OF SYSTEMS: Please see present illness. Completed system review is negative. PHYSICAL EXAMINATION: VITAL SIGNS: Temperature is 97.9, pulse 112, respirations 20, blood pressure 136/90 and O2 sat is 100% on room air. GENERAL: A pleasant, cooperative woman of stated age who is mildly anxious. HEENT: Exhibits a confluent erythema and facial flushing that extends to the trunk. There are there are no asymmetric craniofacial findings. Eyes, ears, nose and throat examination are negative. NECK: Trachea is midline. RESPIRATORY: There is no chest wall tenderness. LUNGS: Symmetrically clear. CARDIOVASCULAR: Heart without murmur, rub or extra sound. ABDOMEN: Soft and nontender without mass or megaly. MUSCULOSKELETAL: Spine examination revealed no abnormal findings. EXTREMITIES: Reveal large urticarial wheals. MENTAL STATUS/PSYCHIATRIC: Exam revealed an anxious mood and parallel affect. LABORATORY AND DIAGNOSTIC IMAGING: White blood count is 10,000 with a mild left shift, hemoglobin is 12.4, platelet count is 242,000. EMERGENCY DEPARTMENT TREATMENT AND MEDICAL DECISION MAKING: Intravenous access was achieved, Benadryl 25 mg, Toradol 30 mg and lorazepam 0.5 mg and cimetidine 300 mg were administered IV with the patient's headache and flushing reaction fully remitted. DISCUSSION, PLAN AND DISPOSITION: The patient's symptoms most likely reflect a vasomotor reaction with the possibility of hypersensitivity to a surreptitious antigenic source. I think clearly she has a psychosocial stress with a tension headache. I have recommended the use of simple analgesics and I have prescribed cimetidine and recommended Benadryl and/or a low nonsedating antihistamine for the next 3-5 days. She was also given lorazepam to treat short-term anxious mood related symptoms. Follow up with Dr. Arteaga should take place within the next week with the patient apprised that it may be appropriate for her to have formal counseling. DISCHARGE DIAGNOSES: 1. Tension headache. 2. Vasomotor flushing reaction and/or occult antigen induced hypersensitivity reaction. Electronically signed on 10/08/2008 14:13 by GUANAKITO PERRY MD MT: [id number] Name: COURTNEY LIZAMA MRN: [id number] Account: [id number] : 1975 Visit Date: 09/21/2008 Document: [id number] documented in this encounter Plan of Treatment Not on filedocumented as of this encounter Visit Diagnoses Not on filedocumented in this encounter Care Teams Straight Knife Cutter Machine Relationship Specialty Start Date End Date Félix Arteaga MD PCP - General 06/25/05 08/29/14 [facility] [address] [place] [address] documented as of this encounter
--- OUTSIDE RECORDS SUMMARY | 2022-02-09 01:04 | XMS_ITS | Encounter Summary ---
:1975 Author Organization [place] Address [address] [place] [address] Care Team Providers Name Role Phone Félix Arteaga MD Primary Care Provider + Encounter Details Date Type Department Care Team Description 10/18/2010 Hospital Laboratory [facility] Results MD Sasha [address] [place] [address] (Wo rk) Social History Tobacco Use Types [...] Date/Time Associated Comments Diagnosis HCG QUALITATIVE URINE Routine 10/18/2010 9:10 AM Results for this CDT procedure are i n the results section. documented in this encounter Results HCG qualitative urine (10/18/2010 9:10 AM CDT) P athologist Signature HCG Qual Urine Negative NEG [facility] Specimen Anatomical Collection Method Collection Time Receive d Time (Source) Location / / Volume Laterality 10/18/2010 9:10 AM 1 9:15 CDT AM CDT Snow Rocha MD LAB - URINE ORDERABLES Performing Organization Address City/State/ZIP Code Phon e Number M [facility] [address] [place] [address] [facility] documented in this encounter Visit Diagnoses Not on filedocumented in this encounter Care Teams Contracting Manager Relationship Specialty Start Date End Date Félix Arteaga MD PCP - General 06/25/05 08/29/14 [facility] [address] [place] [address] documented as of this encounter
--- OUTSIDE RECORDS SUMMARY | 2022-02-09 01:04 | XMS_ITS | Encounter Summary ---
:1975 Author Organization [place] Address [address] [place] [address] Care Team Providers Name Role Phone Félix Arteaga MD Primary Care Provider + Reason for Visit Reason Comments URI Symptoms started on : headache,nasal congestion, chills and bodyaches. Encounter Details Date Type Department Care Team Description 12/19/2008 Office Visit [facility] Wayne Cesar MD [facility] [place] [id number] [place] [address] Sinusitis (Primary Dx) [place], [place] [address] [address] [place], [place] [phone] (Work) [phone] Social History Tobacco Use Types Packs/Day Years Used Date Never Smoker Alcohol Use Standard Drinks/Week Comments Not Asked 0 (1 standard drink = 0.6 oz pure alcoho l) Sex Assigned at Date Recorded Not on file documented as of this encounter Last Filed Vital Signs Vital Sign Reading Time Taken Comments Blood Pressure 110/60 12/19/2008 2:22 PM CDT Pulse 84 12/19/2008 2:22 PM CDT Temperature 36.7 ??C (98.1 ??F) 12/19/2008 2:22 PM CDT Respiratory Rate - - Oxygen Saturation 98% 12/19/2008 2:22 PM CDT Inhaled Oxygen Concentration - - Weight 64.4 kg (141 lb 14.4 oz) 12/19/2008 2:22 PM CDT Height 161.3 cm (5' 3.5) 12/19/2008 2:22 PM CDT Body Mass Index 24.74 12/19/2008 2:22 PM CDT documented in this encounter Progress Notes Wayne Cesar - 12/19/2008 3:23 PM CDT SUBJECTIVE: Alyssa is a 33 year old female here with concerns about sinus infection. She states onset of SX's was 5 day(s) ago.symnptoms worsened in the last 2 days with body aches. She has had maxillary pressure. Sinus risk factors: None Recent treatment has included: Antihistamine Allergic symptoms include: negative Allergy medications: none. Review Of System: CONSTITUTIONAL:chills and fatigue INTEGUMENTARY/SKIN: NEGATIVE for worrisome rashes, moles or lesions EXAM: BP 110/60 Pulse 84 Temp (Src) 98.1 ??F (36.7 ??C) (Oral) Ht 5' 3.5 (1.613 m) Wt 141 lb 14.4oz (64.365 kg) SpO2 98% LMP GENERAL APPEARANCE: healthy, alert and no distress EYES: Eyes grossly normal to inspection, PERRL and conjunctivae and sclerae normal HENT: ear canals and TM's normal, nose and mouth without ulcers or lesions, nasal mucosa edematous without rhinorrhea, oropharynx clear and maxillary sinus tenderness bilateral NECK: no adenopathy, no asymmetry, masses, or scars and thyroid normal to palpation RESP: lungs clear to auscultation - no rales, rhonchi or wheezes CV: regular rates and rhythm, normal S1 S2, no S3 or S4 and no murmur, click or rub ASSESSMENT: 461.0 Acute Maxillary Sinusitis (primary encounter diagnosis) Comment: worsening Plan: AMOXIL 500 MG OR TABS Three times daily for 10 days. documented in this encounter Nursing Notes 12/19/2008 2:15 PM CDT >> MERCEDES WRIGHT Mon Dec 19, 2008 2:29 PM Patient presents with: URI - Symptoms started on : headache,nasal congestion, chills and bodyaches. Initial BP 110/60 Pulse 84 Temp (Src) 98.1 ??F (36.7 ??C) (Oral) Ht 5' 3.5 (1.613 m) Wt 141lb 14.4 oz (64.365 kg) SpO2 98% LMP Body mass index is 24.74 kg/(m^2). BP completed using cuff size large right arm. Mercedes Wright CMA documented in this encounter Plan of Treatment Not on filedocumented as of this encounter Visit Diagnoses Diagnosis Acute maxillary sinusitis - Primary documented in this encounter Care Teams Housing And Residence Life Director Relationship Specialty Start Date End Date Félix Arteaga MD PCP - General 06/25/05 08/29/14 [facility] [address] [place] [address] documented as of this encounter
--- OUTSIDE RECORDS SUMMARY | 2022-02-09 01:04 | XMS_ITS | Encounter Summary ---
:1975 Author Organization [place] Address [address] [place] [address] Care Team Providers Name Role Phone Félix Arteaga MD Primary Care Provider + Encounter Details Date Type Department Care Team Description 10/18/2010 Hospital Pathology [facility] Results MD Sasha [address] [place] [address] (Wo rk) Social History Tobacco [...] Procedure Name Priority Date/Time Associated Diagnosis Comme [facility] SURGICAL PATHOLOGY Routine 10/18/2010 12:00 AM Re sults for this EXAM CDT procedure are i n the results section. documented in this encounter Results Surgical pathology exam (10/18/2010 12:00 AM CDT) Component Value Ref Test Analysis Performed At [facility] Method Time Signature Copath Report Patient Name: COURTNEY LIZAMA COPATH MR#: [id number] Specimen #: [id number] Collected: 10/18/2010 Received: 10/18/2010 Reported: 10/19/2010 13:57 Ordering Phy(s): SNOW BUCKNER SPECIMEN(S): A: Endocervical curettings B: Cervical biopsy, 7-8 o'clock C: Endometrial curettings FINAL DIAGNOSIS: A. 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 ??See microscopic description. B. ??Cervix, 7:00 and 8;00, biopsies - No dysplasia identifi ed. Transition zone not identified. C. ??Endometrium, curettage - 1. ?Fragments of proliferative endometrium wi thout evidence of hyperplasia. 2. ? Intermixed fragments of high grade dysplastic squam ous epithelium (SAMY-3). Electronically signed out by: Angel Neely M.D. CLINICAL HISTORY: Menorrhagia. ??Heavy bleeding. ??ASC-H Pap. smear. ??Possibl e polyp by ultrasound. GROSS: A. ??The specimen is labeled endocervical curettings and i t consists of an aggregate of red mucoid material measuring 1 x 1 x 0.1 cm . ??Entirely submitted in one cassette. B. ??The specimen is labeled cervical biopsy at 7:00 and i t consists of two fragments of paez to reddish tissue aggregating to 0.5 x 0.5 x 0.2 cm. ??Entirely submitted in one cassette. C. ??The specimen is labeled endometrial curettings and it consists of friable fragments of red to amezquita tissue aggregating to 2 x 2 x 0.8 cm. Entirely submitted in two cassettes. ??KHANHK/mily MICROSCOPIC: A. ??There are numerous detached fragments of high grade dys plastic squamous epithelium. ??Because the fragments are detached an d underlying stroma is not present to evaluate for the presence for absen ce of invasion, they represent at least SAMY-3. ??The features woul d correlate with the previous ASC-H Pap. from Sep, 2010 ([id number]). B. ??Microscopic evaluation was performed. C. ??There is proliferative endometrium and basalis. ??A sma ll amount of endometrial-myometrial junction is present. ??Diagnostic shea yp or hyperplastic changes are not identified. ??Intermixed with t he sample are portions of endocervical tissue with fragments of detached i ntermixed high grade dysplastic squamous epithelium showing features s imilar to that seen in the ECC sample. [place]/mily 10-19-10 TESTING LAB LOCATION: [facility] [address] [place], [place] ??[address] COLLECTION SITE: Client: [facility] Location: SDS (R) Specimen (Source) Anatomical Collection Method Collection Time Re ceived Time Location / / Volume Laterality 10/18/2010 10/18/2010 1:18 PM CDT Snow BARRIENTOS - BAN AP Performing Organization Address City/State/ZIP Code Phon e Number [place] documented in this encounter Visit Diagnoses Not on filedocumented in this encounter Care Teams Polymer Tester Relationship Specialty Start Date End Date Félix Arteaga MD PCP - General 06/25/05 08/29/14 [facility] [address] [place] [address] documented as of this encounter
--- OUTSIDE RECORDS SUMMARY | 2022-02-09 01:04 | XMS_ITS | Encounter Summary ---
:1975 Author Organization [place] Address [address] [place] [address] Support Name Relationship Address Phone Leanne Conley Unavailable [phone] [place] [address], [facility] Team Providers Name Role Phone Félix Arteaga MD Primary Care Provider + Reason for Referral Referral not Required - Closed Specialty Diagnoses / Procedures Referred By Contact Refer red To Contact Diagnoses Heavy periods Anemia Farhan Badillo, OBSTETRICS & GYNECOLOGY PA-C SPEC [facility] [address] [place] [address] [facility] [place] [phone] [address] [place] [address] Referral ID Status Reason Start Date Expiration Date Visits Requ ested Visits Authorized [id number] Closed 08/03/2010 01/30/2011 1 1 eferral not Required - Closed Specialty Diagnoses / Procedures Referred By Contact Refer red To Contact Diagnoses Chest pain Farhan Badillo, [facility] PA-C [address] [place] [address] [address] [place] Phone: [phone] [place] [address] Referral ID Status Reason Start Date Expiration Date Visits Requ ested Visits Authorized [id number] Closed 07/30/2010 01/26/2011 1 1 Reason for Visit Reason Comments ER F/U heart racing-EKG was neg, so re throat-given amoxicillin, low hgb, reaction to meds-irritable Anemia Encounter Details Date Type Department Care Team Description 07/30/2010 Office Visit [facility] Dionisioer, Farhan Anemia; Clinic [place] JEREMY Mooney Frequency of urination and polyuria; [address] [facility] CLINIC Fatigue; [place], [place] [address] [facility] [place]; [phone] [address] [place] [address] Heavy periods [phone] [place] [phone] Social History Tobacco Use Types Packs/Day Years Used Date Never Smoker Alcohol Use Standard Drinks/Week Comments Not Asked 0 (1 standard drink = 0.6 oz pure alcoho l) Sex Assigned at Date Recorded Not on file documented as of this encounter Last Filed Vital Signs Vital Sign Reading Time Taken Comments Blood Pressure 120/72 07/30/2010 3:10 PM CDT Pulse 90 07/30/2010 3:10 PM CDT Temperature 36.5 ??C (97.7 ??F) 07/30/2010 3:10 PM CDT Respiratory Rate - - Oxygen Saturation 99% 07/30/2010 3:10 PM CDT Inhaled Oxygen Concentration - - Weight 64.9 kg (143 lb) 07/30/2010 3:10 PM CDT Height 161.3 cm (5' 3.5) 07/30/2010 3:10 PM CDT Body Mass Index 24.93 07/30/2010 3:10 PM CDT documented in this encounter Progress Notes Farhan Valentine - 08/03/2010 7:58 AM CDT Addended by: FARHAN RANGEL on: 08/03/2010 Modules accepted: Orders Farhan Valentine - 07/31/2010 3:09 PM CDT CC: Anemia [285.9Y] Fatigue [780.79B] Frequency of urination and polyuria [788.41W] Chest pain [786.50F] Heavy periods [626.2B] Pt presents after being seen at ER. Pt experienced chest pain and lightheadedness. Pt also had a sore throat that was treated with Amoxicillin and a pronounced HUDSON that was treated with Percocet. ST andHA are now resolved. Pt stopped all medication when she got nauseated. Pt was told that she had anemia by the ER and that her EKG was normal. Pt is worried though since she has had multiple episodes ofCP and her father's family has pronounced heart issues. Pt does admit to having very heavy periods that require a new pad and tampon every hour. Pt has not had this recently elevaluated. Exam: Constitutional: healthy, alert and no distress Head: Normocephalic. No masses, lesions, tenderness or abnormalities Neck: Neck supple. No adenopathy. Thyroid symmetric, normal size,, Carotids without bruits. ENT: ENT exam normal, no neck nodes or sinus tenderness Cardiovascular: negative, PMI normal. No lifts, heaves, or thrills. RRR. No murmurs, clicks gallops or rub Respiratory: negative, Percussion normal. Good diaphragmatic excursion. Lungs clear Gastrointestinal: Abdomen soft, non-tender. BS normal. No masses, organomegaly : Deferred Musculoskeletal: extremities normal- no gross deformities noted, gait normal and normal muscle tone Skin: no suspicious lesions or rashes Neurologic: Gait normal. Reflexes normal and symmetric. Sensation grossly WNL. Psychiatric: mentation appears normal. and affect normal/bright Hematologic/Lymphatic/Immunologic: normal ant/post cervical, axillary, supraclavicular and inguinal nodes I/P: 1. Heavy periods - pt to undergo Transvaginal/pelvic sonogram 2. Anemia - pt to continue with Iron supplement every other day, iron levels pending, Hgb stable 3. CP -pt to undergo stress test and cardiology consult 4. Frequency of urination and polyuria [788.41W] - UA wnl 5. Fatigue - pt to work on rest, nutrition and f/u as needed. documented in this encounter Nursing Notes 07/30/2010 3:15 PM CDT >> HEATHER LEARY Mon Jul 30, 2010 3:20 PM Patient presents with: ER F/U - heart racing-EKG was neg, sore throat-given amoxicillin, low hgb, reaction to meds-irritable Anemia Initial BP 120/72 Pulse 90 Temp(Src) 97.7 ??F (36.5 ??C) (Oral) Ht 5' 3.5 (1.613 m) Wt 143 lb (64.864 kg) BMI 24.93 kg/m2 SpO2 99% LMP 07/22/2010 Estimated Body mass index is 24.93 kg/(m^2) as calculated from the following: Height as of this encounter: 5' 3.5(1.613 m). Weight as of this encounter: 143 lb(64.864 kg).. BP completed using cuff size regular-RA documented in this encounter Plan of Treatment Scheduled Referrals Name Type Priority Associated Diagnoses Order S chedule CARDIOLOGY EVAL ADULT Referral Routine Chest pain Ordere d: 07/30/2010 REFERRAL [facility] REFERRAL Referral Routine Heavy periods Ordered: 08/03/2010 Anemia documented as of this encounter Procedures Procedure Name Priority Date/Time Associated Comments Diagnosis US PELVIC Routine 08/02/2010 4:21 PM Anemia Results for this TRANSABDOMINAL AND CDT Heavy periods procedur e are in TRANSVAGINAL the results section. UA MACROSCOPIC WITH Routine 07/30/2010 3:48 PM Frequency of Re sults for this REFLEX TO MICRO CDT urination and procedure a re in polyuria the results section. MONONUCLEOSIS SCREEN Routine 07/30/2010 3:47 PM Fatigue R esults for this CDT procedure are i n the results section. IRON AND IRON BINDING Routine 07/30/2010 3:47 PM Anemia Results for this CAPACITY CDT procedure are i n the results section. CBC WITH PLATELETS STAT 07/30/2010 3:47 PM Anemia Res ults for this CDT procedure are i n the results section. documented in this encounter Results US Pel W/Trans* (08/02/2010 4:21 PM CDT) Anatomical Region Laterality Modality Abdomen/Pelvis Other Specimen (Source) Anatomical Collection Method Collection Time Re ceived Time Location / / Volume Laterality 08/02/2010 4:21 PM CDT Impressions 08/03/2010 8:05 AM CDT ULTRASOUND PELVIC WITH TRANSVAGINAL IMAG ING ??Aug 02, 2010 4:21:00 PM COMPARISON: None. HISTORY: Anemia, heavy periods. FINDINGS: Transvaginal images were perfo rmed to better evaluate the patient's uterus, ovaries and endometria l stripe. No fibroids are evident. ??The uterus is normal. Endometrial stripe measures 9 mm and is normal ??for patien t's age and menstrual status. The right ovary is normal. ??The left ov pearl demonstrates a septated cyst measuring 2.2 cm in maximal dimensi on. The ovaries demonstrate normal color Doppler flow bilaterally. ? ?No adnexal masses are present. A small to moderate amount of simple praful e pelvic fluid is present. IMPRESSION: 1. Septated cyst in the left ovary, a 6- 8 week or 1-2 menstrual cycle followup to evaluate for resolution is r ecommended. 2. Small amount of clear pelvic free flu id which is nonspecific and may be physiologic. Farhan Badillo PA-C IMG US ORDERABLES (ABNORMAL) UA macroscopic with reflex to micro (07/30/2010 3:48 PM CDT) [facility] gist Method Time Signature Color Urine Straw [facility] Appearance Urine Clear [facility] Glucose Urine Negative NEG mg/dL [facility] Bilirubin Urine Negative NEG [facility] Ketones Urine Negative NEG mg/dL [facility] Specific [place] <=1.005 1.003 - [place] Urine 1.035 [facility] Blood Urine Negative NEG [facility] pH Urine 7.5 (H) 5.0 - 7.0 [place] pH [facility] Protein Albumin Negative NEG mg/dL [place] Urine [facility] Urobilinogen 0.2 0.2 - 1.0 [place] Urine EU/dL [facility] Nitrite Urine Negative NEG [facility] Leukocyte Negative NEG [place] Esterase Urine [facility] Source Midstream [place] Urine [facility] Specimen Anatomical Collection Method Collection Time Receive d Time (Source) Location / / Volume Laterality Urine specimen 07/30/2010 3:48 PM 011 3:51 (specimen) CDT PM CDT Farhan Badillo PA-C LAB - URINE ORDERABLES Performing Organization Address [facility] [address]/[facility] Phon e Number [address] [address] [facility] Mononucleosis screen (07/30/2010 3:47 PM CDT) Patholo gist Method Time Signature Mononucleosis Negative NEG [place] Screen [facility] Specimen Anatomical Collection Method Collection Time Receive d Time (Source) Location / / Volume Laterality Blood specimen 07/30/2010 3:47 PM 011 3:50 (specimen) CDT PM CDT Farhan Badillo PA-C LAB - BLOOD ORDERABLES Performing Organization Address [facility] [address]/[facility] Phon e Number [address] [address] [facility] (ABNORMAL) Iron and iron binding capacity (07/30/2010 3:47 PM CDT) P athologist Signature Iron 37 35 - 180 [place] ug/dL [facility] Iron Binding 436 (H) 240 - 430 [facility] Cap ug/dL [facility] Iron Saturation 9 (L) 15 - 46 % [place] Index [facility] Specimen Anatomical Collection Method Collection Time Receive d Time (Source) Location / / Volume Laterality Blood specimen 07/30/2010 3:47 PM 011 3:50 (specimen) CDT PM CDT Farhan Badillo PA-C LAB - BLOOD ORDERABLES Performing Organization Address City/[facility] [address]/ZIP Code Phon e Number [facility] [address] [place] [address] [facility] (ABNORMAL) CBC with platelets (07/30/2010 3:47 PM CDT) Analysis Performed At Patho logist Time Signature WBC 4.8 4.0 - 11.0 [place] 10e9/L [facility] RBC Count 4.01 3.8 - 5.2 [place] 10e12/L [facility] Hemoglobin 11.2 (L) 11.7 - [place] 15.7 g/dL [facility] Hematocrit 33.7 (L) 35.0 - [place] 47.0 % [facility] MCV 84 78 - 100 [facility] MCH 27.9 26.5 - [place] 33.0 pg [facility] MCHC 33.2 31.5 - [place] 36.5 g/dL [facility] RDW 13.7 10.0 - [place] 15.0 % [facility] Platelet Count 290 150 - 450 [place] 10e9/L [facility] Specimen Anatomical Collection Method Collection Time Receive d Time (Source) Location / / Volume Laterality Blood specimen 07/30/2010 3:47 PM 011 3:50 (specimen) CDT PM CDT Farhan Badillo PA-C LAB - BLOOD ORDERABLES Performing Organization Address City/State/ZIP Code Phon e Number [facility] [id number] [place] [address] [facility] documented in this encounter Visit Diagnoses Diagnosis Anemia Anemia, unspecified Frequency of urination and polyuria Urinary frequency Fatigue Other malaise and fatigue Chest pain Chest pain, unspecified Heavy periods Excessive or frequent menstruation documented in this encounter Care Teams Dust Sampler Relationship Specialty Start Date End Date Félix Arteaga MD PCP - General 06/25/05 08/29/14 [facility] [address] [address] documented as of this encounter
--- OUTSIDE RECORDS SUMMARY | 2022-02-09 01:04 | XMS_ITS | Encounter Summary ---
:1975 Author Organization [place] Address [address] [address] Care Team Providers Name Role Phone Félix Arteaga MD Primary Care Provider + Encounter Details Date Type Department Care Team Description 04/05/2009 Emergency room [facility] Thiago Hadley, Hospital Results MD EMERGENCY PHYSIC OKGREGORY UREÑA [address] 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 HISTORY OF PRESENT ILLNESS: Courtney Lizama is a 33-year-old female who presents to the emergency department complaining of pain and nausea for the past 2 weeks. She says she has lower abdominal cramping that comes and goes. It is about 5/10 currently, nothing seems to make it any better or worse, not associated with any obvious dysuria, but she thinks it may have burned one time when she went to [facility] today. She denies any abnormal vaginal discharge or bleeding. She does not think she is . She denies any upper abdominal pain and, again, no fevers. ALLERGIES: None. CURRENT MEDICATIONS: None. PAST MEDICAL HISTORY: Negative. SOCIAL HISTORY: Nonsmoker. FAMILY HISTORY: Noncontributory. REVIEW OF SYSTEMS: Again, the patient denies any fevers, chills, vomiting, blood in the stool, any abnormal vaginal discharge or bleeding. PHYSICAL EXAMINATION: VITAL SIGNS: Blood pressure 130/85, pulse 65, respirations 18, temperature 98.6 and oxygen saturation 100% on room air. GENERAL: This is a 33-year-old female who is pleasant to talk to. HEENT: Eyes normal. Ears, nose and throat are normal. CARDIOVASCULAR: Heart was in a regular rate and rhythm. RESPIRATORY: Breath sounds are clear. GASTROINTESTINAL: There is some mild pain with palpation in the suprapubic area to deep palpation, however, there is no obvious right lower quadrant tenderness. Bowel sounds are present. No rashes in the area of pain. It is a very benign abdominal exam. EXTREMITIES: Atraumatic. NEUROLOGIC: Nonfocal. SKIN: Warm and dry. LABORATORY AND DIAGNOSTICS: The patient's urinalysis is very dilute yet still has a lot of signs ofinfection, 30 white blood cells, small leukocyte esterase, small amount of blood. I think she has a significant bladder infection. test was negative. I will send her out on Cipro, Pyridium and a limited amount of Vicodin. She is to follow up with the family doctor in a week if symptoms persist or if she develops any back pain or fevers return. DIAGNOSES: 1. Abdominal pain. 2. Urinary tract infection. 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
--- OUTSIDE RECORDS SUMMARY | 2022-02-09 01:04 | XMS_ITS | Encounter Summary ---
:1975 Author Organization [place] Address [address] [place] [address] Care Team Providers Name Role Phone Félix Arteaga MD Primary Care Provider + Reason for Visit Reason Onset Date Comments Back Pain 05/30/2010 Back pain Encounter Details Date Type Department Care Team Description 05/30/2010 Telephone [facility] Félix Arteaga ack Pain (Back pain) [place] [id number] [place] [address] [place] [phone] [address] [phone] [place], [place] [address] (Wo rk) Social History Tobacco Use Types Packs/Day Years Used Date Never Smoker Alcohol Use Standard Drinks/Week Comments Not Asked 0 (1 standard drink = 0.6 oz pure alcoho l) Sex Assigned at Date Recorded Not on file documented as of this encounter Miscellaneous Notes Telephone Encounter - Pablito Elizabeth - 05/30/2010 3:18 PM CST Pt informed.Pablito Elizabeth MA AND SOIL SCIENTIST Telephone Encounter - Pablito Elizabeth - 05/30/2010 3:05 PM CST Left Message On Machine For Patient To Call The Clinic Back. Pablito Elizabeth M.A. AND SOIL SCIENTIST Telephone Encounter - Félix Arteaga - 05/30/2010 2:51 PM CST Will fax flexeril to use as needed Félix Arteaga MD [facility] AND SOIL SCIENTIST Telephone Encounter - Janelle Meraz - 05/30/2010 2:38 PM CST Pt called with complaints of sudden onset of back pain x this am. 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 Pain so intense it brought her to tears. Pain in lower back towards buttocks. Feels stiff and has a hard time walking and going up stairs. She does state that she did have the chills off/on last night. Not sure if it was related.She states she just doesn't feel right. Patient states she does have a history of bladder infections and has noticed some frequency with urination. Advised to check ua for bladder/kidney infection. UA NEGATVE. Pt has been taking Ibuprofen with no relief. Pt wondering if you could prescribe a muscle relaxer to help her get some relief. Pt was also advised to apply heat to area. Janelle Meraz RN AND SOIL SCIENTIST documented in this encounter Plan of Treatment Not on filedocumented as of this encounter Visit Diagnoses Diagnosis Back pain - Primary Backache, unspecified documented in this encounter Care Teams Seed Analysis Laboratory Assistant Relationship Specialty Start Date End Date Félix Arteaga MD PCP - General 06/25/05 08/29/14 [facility] [address] [place] [address] documented as of this encounter
--- OUTSIDE RECORDS SUMMARY | 2022-02-09 01:04 | XMS_ITS | Encounter Summary ---
:1975 Author Organization [place] Address [address] [facility] [place] [address] Care Team Providers Name Role Phone Félix Arteaga MD Primary Care Provider + Reason for Visit Reason Comments Pharyngitis Symptoms started last night: sore throat, passed out, skin feels like it is on fire, weak. Encounter Details Date Type Department Care Team Description 05/22/2009 Office Visit [facility] Wayne Cesar MD Pharyngitis (Primary Clinic [place] [address] Dx) [address] [place], [place] [address] [address] [place], [place] [phone] [address] (Work) [phone] Social History Tobacco Use Types Packs/Day Years Used Date Never Smoker Alcohol Use Standard Drinks/Week Comments Not Asked 0 (1 standard drink = 0.6 oz pure alcoho l) Sex Assigned at Date Recorded Not on file documented as of this encounter Last Filed Vital Signs Vital Sign Reading Time Taken Comments Blood Pressure 100/60 05/22/2009 4:24 PM YARN MAN Pulse 96 05/22/2009 4:24 PM YARN MAN Temperature 36.8 ??C (98.2 ??F) 05/22/2009 4:24 PM YARN MAN Respiratory Rate - - Oxygen Saturation - - Inhaled Oxygen Concentration - - Weight 64.7 kg (142 lb 11.2 oz) 05/22/2009 4:24 PM YARN MAN Height 161.3 cm (5' 3.5) 05/22/2009 4:24 PM YARN MAN Body Mass Index 24.88 05/22/2009 4:24 PM YARN MAN documented in this encounter Progress Notes Wayne Cesar - 05/23/2009 8:25 AM CST SUBJECTIVE: Alyssa Aguillon is a 33 year old female who complains of coryza, sore throat, chills, fatigue and dizzness, few episodes of vomiting that has stopped for 2 days. She denies a history of productive cough and shortness of breath and denies a history of asthma. Patient denies smoke cigarettes. OBJECTIVE: She appears well, vital signs are as noted by the nurse. Ears normal. Throat and pharynx normal. Neck supple. No adenopathy in the neck. Nose is congested. Sinuses non tender. The chest is clear, without wheezes or rales. Abdomen : soft, benign, no HSM> Neuro exam : A O #3, CN II to XII intact, normal strength, and sensation, cerebellar signs are negative. ASSESSMENT: Viral syndrom. PLAN: Symptomatic therapy suggested: push fluids, rest and use acetaminophen, ibuprofen as needed. Call orreturn to clinic prn if these symptoms worsen or fail to improve as anticipated. MAN documented in this encounter Nursing Notes 05/22/2009 4:15 PM CST >> MERCEDES WRIGHT Mon May 22, 2009 4:32 PM Patient presents with: Pharyngitis - Symptoms started last night: sore throat, passed out, skin feels like it is on fire, weak. Initial BP 100/60 Pulse 96 Temp (Src) 98.2 ??F (36.8 ??C) (Oral) Ht 5' 3.5 (1.613 m) Wt 142lb 11.2 oz (64.728 kg) LMP Body mass index is 24.88 kg/(m^2). BP completed using cuff size regular right arm. Mercedes Wright CMA documented in this encounter Plan of Treatment Not on filedocumented as of this encounter Procedures Procedure Name Priority Date/Time Associated Diagnosis Comme nts HCL STREP GROUP A Routine 05/22/2009 4:40 PM Pharyngitis Resu lts for this ANTIGEN (RAPID) YARN MAN procedure ar e in the results section. HCL BETA STREP Routine 05/22/2009 4:40 PM Pharyngitis Results for this CONFIRM YARN MAN procedure are i n the results section. documented in this encounter Results BETA STREP CONFIRM (05/22/2009 4:40 PM YARN MAN) Component Value Ref Test Analysis Performed At [facility] Range Method Time Signature Specimen Throat [facility] Culture Micro No Beta PERRY Streptococcus [facility] Report status FINAL 05/24/2009 [facility] Specimen Anatomical Collection Method Collection Time Receive d Time (Source) Location / / Volume Laterality 05/22/2009 4:40 PM 0 4:41 YARN MAN PM YARN MAN Wayne Cesar MD LABORATORY Performing Organization Address City/[facility]/ZIP Code Phon e Number [facility] [place] [address] [facility] STREP GROUP A ANTIGEN (RAPID) (05/22/2009 4:40 PM YARN MAN) Component Value Ref Test Analysis Performed At [facility] Method Time Signature Specimen Throat [facility] Rapid Strep A NEGATIVE: No Group A strepto coccal antigen detected by immunoassay, await PERRY Screen culture report. [facility] Report status FINAL 05/22/2009 [facility] Specimen Anatomical Collection Method Collection Time Receive d Time (Source) Location / / Volume Laterality 05/22/2009 4:40 PM 0 4:41 YARN MAN PM YARN MAN Wayne Cesar MD LABORATORY Performing Organization Address City/[facility]/ZIP Code Phon e Number [facility] [place] [address] [facility] documented in this encounter Visit Diagnoses Diagnosis Pharyngitis - Primary Acute pharyngitis documented in this encounter Care Teams Underground Electrician Relationship Specialty Start Date End Date Félix Arteaga MD PCP - General 06/25/05 08/29/14 [facility] [address] [place] [address] documented as of this encounter
--- OUTSIDE RECORDS SUMMARY | 2022-02-09 01:04 | XMS_ITS | Encounter Summary ---
:1975 Author Organization [place] Address [address] [facility] [address] Care Team Providers Name Role Phone Félix Arteaga MD Primary Care Provider + Encounter Details Date Type Department Care Team Description 12/14/2009 [facility] EMERGENCY PHYSI [address] [place], [place] [address] (Wo rk) Social History Tobacco Use Types Packs/Day Years Used Date Never Smoker Alcohol Use Standard Drinks/Week Comments Not Asked 0 (1 standard drink = 0.6 oz pure alcoho l) Sex Assigned at Date Recorded Not on file documented as of this encounter Progress Notes Vidal Little - 12/28/2009 4:56 PM CDT FINAL CHIEF COMPLAINT: Abdominal pain. HISTORY OF PRESENT ILLNESS: Courtney Lizama is 34-year-old female who comes in with new onset abdominal pain located in the suprapubic and right lower quadrant region. She has had some nausea. She hashad no vomiting. She has had 2 loose watery diarrheal stools today. She has felt a little weak, lightheaded and fatigued as well. She did take some amoxicillin this week for an upper respiratory infection. Last menstrual period was 1 week ago. REVIEW OF SYSTEMS: The patient has had significant pain in the abdomen and if she lies down and still it does not bother her if she is up and about walking, she has significant pain in the right lowerquadrant. All other systems are negative. PAST MEDICAL HISTORY: An episode of abdominal pain back in August when she underwent CT scanning at that time and had a borderline appendix at that point. MEDICATIONS: Amoxicillin, not currently taking. ALLERGIES: None. SOCIAL HISTORY: She is a steady relationship. There is no change in partner. She does not use drugs, alcohol, nor does she smoke. PAST SURGICAL HISTORY: She has had a LEEP procedure. PHYSICAL EXAMINATION: VITAL SIGNS: Temperature is 98, blood pressure 150/100, pulse 90, respiratory rate 18, oxygen saturations are normal. GENERAL: She is resting on the gurney. HEENT: Eyes are normal. ENT is normal. NECK: Normal. CHEST: Lungs are clear. CARDIOVASCULAR: Heart is in a regular rate and rhythm. ABDOMEN: Tender in the suprapubic and right lower quadrant region at McBurney's point. The upper abdomen and left lower quadrant are not terribly tender. Pelvic exam shows no cervical motion tenderness, slight amount of white discharge in the cervical os. The uterus is retroverted and nontender. There are no adnexal pain, although there is right adnexal region tenderness more so with the abdominal hand than the vaginal hand. SKIN: Without rash. LYMPH NODES: Normal. MUSCULOSKELETAL: Normal. NEUROLOGIC: Normal. PSYCHIATRIC: Normal. HOSPITAL COURSE: CT scan of the abdomen reveals probable appendicitis of a chronic nature. I reviewed this with Dr. Mtz who is recommending appendectomy. CBC shows a white count of 8.7 with a left shift. Electrolytes normal. Wet prep is normal. Chlamydial PCR testing is pending. FINAL DIAGNOSIS: Appendicitis. DISPOSITION AND PLAN: To the operating room with Dr. Mtz with 1 gram of Invanz given preop. Electronically signed on 12/28/2009 16:55 by VIDAL LITTLE MD MT: [id number] Name: COURTNEY LIZAMA MRN: [id number] Account: [id number] : 1975 Visit Date: 12/14/2009 Document: [id number] documented in this encounter Plan of Treatment Not on filedocumented as of this encounter Visit Diagnoses Not on filedocumented in this encounter Care Teams Repair Supervisor Relationship Specialty Start Date End Date Félix Arteaga MD PCP - General 06/25/05 08/29/14 [facility] [address] [place] [address] documented as of this encounter
--- OUTSIDE RECORDS SUMMARY | 2022-02-09 01:04 | XMS_ITS | Encounter Summary ---
:1975 Author Organization [place] Address [address] [facility] [address] Care Team Providers Name Role Phone Félix Arteaga MD Primary Care Provider + Encounter Details Date Type Department Care Team Description 09/24/2010 Medical Correspondence [facility] Jonathan Hurt MD [address] [phone] [place], [place] [id number] Social History Tobacco Use Types Packs/Day Years [...] on filedocumented in this encounter Care Teams Cloth Winder Machine Operator Relationship Specialty Start Date End Date Félix Arteaga MD PCP - General 06/25/05 08/29/14 [facility] [address] [place] [address] documented as of this encounter
--- OUTSIDE RECORDS SUMMARY | 2022-02-09 01:04 | XMS_ITS | Encounter Summary ---
:1975 Author Organization [place] Address [address] [place] [address] Care Team Providers Name Role Phone Félix Arteaga MD Primary Care Provider + Encounter Details Date Type Department Care Team Description 07/31/2010 Telephone [facility] [address] [place], [place] [phone] [facility] [phone] [place] [address] (Wo rk) Social History Tobacco Use Types Packs/Day Years Used Date Never Smoker Alcohol Use Standard Drinks/Week Comments Not Asked 0 (1 standard drink = 0.6 oz pure alcoho l) Sex Assigned at Date Recorded Not on file documented as of this encounter Miscellaneous Notes Telephone Encounter - Tanna Gomes - 07/31/2010 2:29 PM CDT Received phone call from [facility] stating Order for Cardiology Eval Adult Referral needs to state weather it is a stress echo or nuc. Per Eliza order is to be or stress echo. JOB signed order and refaxed to [facility] where they will fax on to Cardiology. documented in this encounter Plan of Treatment Not on filedocumented as of this encounter Visit Diagnoses Not on filedocumented in this encounter Care Teams Account Executive Key Accounts Relationship Specialty Start Date End Date Félix Arteaga MD PCP - General 06/25/05 08/29/14 [facility] [address] [place] [address] documented as of this encounter
--- OUTSIDE RECORDS SUMMARY | 2022-02-09 01:04 | XMS_ITS | Encounter Summary ---
:1975 Author Organization [place] Address [address] [place] [address] Care Team Providers Name Role Phone Félix Arteaga MD Primary Care Provider + Encounter Details Date Type Department Care Team Description 09/21/2008 Historic Results INTERFACED REPORT Nnamdi Coon MD [place] [address] Social History Tobacco Use Types Packs/Day Years [...] Comments Diagnosis CBC WITH PLATELETS & STAT 09/21/2008 4:08 PM R esults for this DIFFERENTIAL CDT procedure are i n the results section. documented in this encounter Results (ABNORMAL) CBC with platelets differential (09/21/2008 4:08 PM CDT) [facility] Method Time Signature MCV 85 78 - 100 MIS[facility] fl MCH 30.2 26.5 - MISYS 33.0 pg MCHC 35.5 31.5 - MISYS 36.5 g/dL RDW 12.8 10.0 - MISYS 15.0 % WBC 10.0 4.0 - MISYS 11.0 10e9/L RBC Count 4.11 3.8 - 5.2 MISYS 10e12/L Hemoglobin 12.4 11.7 - MISYS 15.7 g/dL Hematocrit 34.9 (L) 35.0 - MISYS 47.0 % % Neutrophils 83 (H) 40 - 75 % MISYS % Lymphocytes 11 (L) 20 - 48 % MISYS % Monocytes 6 0 - 12 % MISYS % Eosinophils 0 0 - 6 % MISYS % Basophils 0 0 - 2 % MISYS Platelet Count 242 150 - 450 MISYS 10e9/L Absolute 8.3 1.6 - 8.3 M[facility] Neutrophil 10e9/L Absolute 1.1 0.8 - 5.3 MIS[facility] Lymphocytes 10e9/L Absolute 0.6 0.0 - 1.3 [place] Monocytes 10e9/L Absolute 0.0 0.0 - 0.7 MIS[facility] Eosinophils 10e9/L Absolute 0.0 0.0 - 0.2 MIS[facility] Basophils 10e9/L Diff Method Automated MISYS Method Specimen Anatomical Collection Method Collection Time Receive d Time (Source) Location / / Volume Laterality 09/21/2008 4:08 PM 9 3:49 CDT PM CDT Clem Coon MD LAB - BLOOD ORDERABLES Performing Organization Address City/State/ZIP Code Phon e Number MISYS documented in this encounter Visit Diagnoses Not on filedocumented in this encounter Care Teams Oncology Technician Relationship Specialty Start Date End Date Félix Arteaga MD PCP - General 06/25/05 08/29/14 [facility] [address] [place] [address] documented as of this encounter
--- OUTSIDE RECORDS SUMMARY | 2022-02-09 01:04 | XMS_ITS | Encounter Summary ---
:1975 Author Organization [place] Address [address] [facility] [place] [address] Care Team Providers Name Role Phone Félix Arteaga MD Primary Care Provider + Reason for Visit Reason Comments UTI RN protocol-UTI Encounter Details Date Type Department Care Team Description 05/30/2010 Allied Health/Nurse [facility] UTI (RN protocol-UTI) Visit Clinic [address], [address] [place] [address] Social History Tobacco Use Types Packs/Day Years Used Date Never Smoker Alcohol Use Standard Drinks/Week Comments Not Asked 0 (1 standard drink = 0.6 oz pure alcoho l) Sex Assigned at Date Recorded Not on file documented as of this encounter Progress Notes Janelle Meraz - 05/30/2010 1:20 PM CST RN UTI Protocol: Ages 18 to 65 SUBJECTIVE: Alyssa Aguillon is a 34 year old female who comes into the clinic for a possible UTI. Symptoms:frequency, back pain, chills and history of bladder infections. Onset of symptoms: Today sudden onset Patient denies complicating factors including: (if yes to any of the following, schedule appt with aprovider) long duration, rigors, flank pain, temperature > 101 degrees F. and Vomiting, significant nausea or diarrhea Hematuria?: No.. LMP: unknown ?: No. (if yes, or possible, schedule appointment with provider) Sexually active? No. Patient agrees to chlamydia testing No. Vaginal discharge present?: No . Patient does qualify for nurse only appointment. Patient will wait for the results. OBJECTIVE: Wt Readings from Last 1 Encounters: 04/18/2010 141 lb (63.957 kg) LAB ORDERS: UA Micro if positive UC as indicated Wet Prep as indicated Chlamydia as indicated ALLERGIES: No Known Allergies TREATMENT: UA: 0-2 WBC = DO NOT TREAT WET PREP: No treatment for negative results PLAN: Medications ordered as indicated per treatment protocol If no abnormal labs, recommend increase fluid intake and advise patient to follow-up with provider if not resolved 2-3d or sooner if worsen Symptomatic therapy recommended: Increase fluid intake and OTC advil or tylenol prn pain Education provided. Patient verbalizes understanding of this plan and is agreeable. Encounter handled by: Nurse Triage . Janelle Meraz RN NICAL AID documented in this encounter Plan of Treatment Not on filedocumented as of this encounter Procedures Procedure Name Priority Date/Time Associated Comments Diagnosis UA MACROSCOPIC WITH Routine 05/30/2010 2:04 PM Dysuria Re sults for this REFLEX TO MICRO TECHNICAL AID procedure ar e in the results section. documented in this encounter Results UA macroscopic with reflex to micro (05/30/2010 2:04 PM TECHNICAL AID) [facility] gist Method Time Signature Color Urine Yellow [facility] Appearance Urine Clear [facility] Glucose Urine Negative NEG mg/dL [facility] Bilirubin Urine Negative NEG [facility] Ketones Urine Negative NEG mg/dL [facility] Specific Clear 1.025 1.003 - [place] Urine 1.035 [facility] Blood Urine Negative NEG [facility] pH Urine 5.0 5.0 - 7.0 [place] pH [facility] Protein Albumin Negative NEG mg/dL [facility] Urobilinogen 0.2 0.2 - 1.0 [place] Urine EU/dL [facility] Nitrite Urine Negative NEG [facility] Leukocyte Negative NEG [place] Esterase Urine [facility] Source Midstream [place] Urine [facility] Specimen Anatomical Collection Method Collection Time Receive d Time (Source) Location / / Volume Laterality Urine specimen 05/30/2010 2:04 PM 011 2:05 (specimen) TECHNICAL AID PM TECHNICAL AID Félix Arteaga MD LAB - URINE KARIS DALE Performing Organization Address City/State/ZIP Code Phon e Number [facility] [place] [address] [facility] documented in this encounter Visit Diagnoses Diagnosis Dysuria - Primary documented in this encounter Care Teams Hydrologic Modeler Relationship Specialty Start Date End Date Félix Arteaga MD PCP - General 06/25/05 08/29/14 [facility] [address] [place] [address] documented as of this encounter
--- OUTSIDE RECORDS SUMMARY | 2022-02-09 01:04 | XMS_ITS | Encounter Summary ---
:1975 Author Organization [place] Address [address] [place] [address] Care Team Providers Name Role Phone Félix Arteaga MD Primary Care Provider + Encounter Details Date Type Department Care Team Description 04/05/2009 Historic Results INTERFACED REPORT Lobo Barth MD EMERGENCY PHYSIC I[facility] [address] [place], [place] [address] (Wo rk) Social History Tobacco Use Types [...] Associated Comments Diagnosis HCG QUALITATIVE URINE STAT 04/05/2009 1:15 PM Results for this ELASTIC ATTACHER COVERSTITCH procedure are i n the results section. ROUTINE UA WITH STAT 04/05/2009 1:15 PM Result s for this MICROSCOPIC ELASTIC ATTACHER COVERSTITCH procedure are i n the results section. documented in this encounter Results (ABNORMAL) Routine UA with microscopic (04/05/2009 1:15 PM ELASTIC ATTACHER COVERSTITCH) [facility] Method Time Signature Source Midstream MISYS Urine Color Urine Light Yellow MISYS Appearance Urine Clear MIS[facility] Glucose Urine Negative NEG mg/dL MISYS Bilirubin Urine Negative NEG [facility] Ketones Urine Negative NEG mg/dL M[facility] Specific [place] 1.009 1.003 - MISYS Urine 1.035 Blood Urine Small (A) NEG [facility] pH Urine 5.0 5.0 - 7.0 [facility] pH Protein Albumin Negative NEG mg/dL M[facility] Urine Urobilinogen Normal 0.0 - 2.0 [place] mg/dL mg/dL Nitrite Urine Negative NEG [facility] Leukocyte Small (A) NEG [facility] Esterase Urine WBC Urine 30 (H) 0 - 2 [place] /HPF RBC Urine 5 (H) 0 - 2 [place] /HPF Squamous 3 (H) 0 - 1 [facility] Epithelial /HPF /HPF Urine Bacteria Urine Moderate (A) NEG /HPF [facility] Amorphous Few (A) NEG /HPF [facility] Crystals Mucous Urine Present (A) NEG /LPF [facility] Specimen Anatomical Collection Method Collection Time Receive d Time (Source) Location / / Volume Laterality 04/05/2009 1:15 PM 9 1:42 ELASTIC ATTACHER COVERSTITCH PM ELASTIC ATTACHER COVERSTITCH Dirk Barth MD LAB - URINE ORDERABLES Performing Organization Address City/State/ZIP Code Phon e Number MISYS HCG qualitative urine (04/05/2009 1:15 PM ELASTIC ATTACHER COVERSTITCH) P athologist Signature HCG Qual Urine Negative NEG MIS[facility] Comment: This test provides a presumptive diagno sis of or non-. A confirmed diagnosis should on ly be made by a physician after all clinical and laboratory findings have b een evaluated. Specimen Anatomical Collection Method Collection Time Receive d Time (Source) Location / / Volume Laterality 04/05/2009 1:15 PM 9 1:42 ELASTIC ATTACHER COVERSTITCH PM ELASTIC ATTACHER COVERSTITCH Dirk Barth MD LAB - URINE ORDERABLES Performing Organization Address City/State/ZIP Code Phon e Number MISYS documented in this encounter Visit Diagnoses Not on filedocumented in this encounter Care Teams Secretary Administrative Assistant Relationship Specialty Start Date End Date Félix Arteaga MD PCP - General 06/25/05 08/29/14 [facility] [address] [place] [address] documented as of this encounter
--- OUTSIDE RECORDS SUMMARY | 2022-02-09 01:04 | XMS_ITS | Encounter Summary ---
:1975 Author Organization [place] Address [address] [place] [address] Care Team Providers Name Role Phone Félix Arteaga MD Primary Care Provider + Encounter Details Date Type Department Care Team Description 12/14/2009 Historic Results [facility] Damir Arte[facility] er [facility] Gertrude Baxter MD [address] [place] [address] [address] [phone] [place], [place] [address] (Wo rk) Social History [...] Date/Time Associated Comments Diagnosis WET PREPARATION Routine 12/14/2009 5:00 PM Result s for this CDT procedure are i n the results section. NEISSERIA GONORRHOEAE Routine 12/14/2009 5:00 PM Results for this PCR CDT procedure are i n the results section. CHLAMYDIA TRACHOMATIS Routine 12/14/2009 5:00 PM Results for this PCR CDT procedure are i n the results section. CBC WITH PLATELETS & STAT 12/14/2009 3:58 PM R esults for this DIFFERENTIAL CDT procedure are i n the results section. BASIC METABOLIC PANEL STAT 12/14/2009 3:58 PM Results for this CDT procedure are i n the results section. HCG QUALITATIVE URINE STAT 12/14/2009 3:35 PM Results for this CDT procedure are i n the results section. ROUTINE UA WITH STAT 12/14/2009 3:35 PM Result s for this MICROSCOPIC CDT procedure are i n the results section. documented in this encounter Results Wet prep (12/14/2009 5:00 PM CDT) [facility] Method Time Signature Specimen Vagina MISYS Description Micro Report FINAL MISYS Status 12/14/2009 Wet Prep Few PMNs MISYS seen Comment: No yeast seen No Trichomonas seen No clue cells seen Specimen Anatomical Collection Method Collection Time Receive d Time (Source) Location / / Volume Laterality 12/14/2009 5:00 PM 0 5:13 CDT PM CDT Félix Arteaga MD LAB - MICRO GENERA L ORDERABLES Performing Organization Address City/[facility]/ZIP Code Phon e Number MISYS Chlamydia trachomatis PCR (12/14/2009 5:00 PM CDT) Component Value Ref Test Analysis Performed At [facility] Method Time Signature Specimen Cervix MISYS Description Chlamydia Negative for C. MISYS Trachomatis PCR trachomatis rRNA by food equipment service technician mediated amplification. Comment: A negative result by food equipment service technician medi ated amplification does not preclude the presence of C. trachomatis infection be cause results are dependent on proper and adequate collection, absence of inh ibitors, and sufficient rRNA to be detected. Specimen Anatomical Collection Method Collection Time Receive d Time (Source) Location / / Volume Laterality 12/14/2009 5:00 PM 0 5:13 CDT PM CDT Félix Arteaga MD LAB - MICRO GENERA L ORDERABLES Performing Organization Address City/State/ZIP Code Phon e Number MISYS Neisseria gonorrhoeae PCR (12/14/2009 5:00 PM CDT) [facility] Method Time Signature Specimen Cervix MISYS Descrip N Gonorrhea Negative for N. MISYS PCR gonorrhoeae rRNA by food equipment service technician mediated amplification. Comment: A negative result by food equipment service technician medi ated amplification does not preclude the presence of N. gonorrhoeae infection be cause results are dependent on proper and adequate collection, absence of inh ibitors, and sufficient rRNA to be detected. Specimen Anatomical Collection Method Collection Time Receive d Time (Source) Location / / Volume Laterality 12/14/2009 5:00 PM 0 5:13 CDT PM CDT Félix Arteaga MD LAB - MICRO GENERA L ORDERABLES Performing Organization Address City/State/ZIP Code Phon e Number MISYS (ABNORMAL) CBC with platelets differential (12/14/2009 3:58 PM CDT) [facility] gist Method Time Signature MCV 88 78 - 100 MIS[place] fl MCH 31.0 26.5 - MIS[place] 33.0 pg MCHC 35.4 31.5 - MIS[place] 36.5 g/dL RDW 13.8 10.0 - MISYS 15.0 % WBC 8.7 4.0 - MIS[place] 11.0 10e9/L RBC Count 3.74 (L) 3.8 - 5.2 MIS[place] 10e12/L Hemoglobin 11.6 (L) 11.7 - MIS[place] 15.7 g/dL Hematocrit 32.8 (L) 35.0 - MISYS 47.0 % % Neutrophils 81 (H) 40 - 75 % MISYS % Lymphocytes 13 (L) 20 - 48 % MISYS % Monocytes 6 0 - 12 % MISYS % Eosinophils 0 0 - 6 % MISYS % Basophils 0 0 - 2 % M[facility] Platelet Count 235 150 - 450 [place] 10e9/L Absolute 6.9 1.6 - 8.3 [place] Neutrophil 10e9/L Absolute 1.2 0.8 - 5.3 [place] Lymphocytes 10e9/L Absolute 0.5 0.0 - 1.3 [place] Monocytes 10e9/L Absolute 0.0 0.0 - 0.7 [place] Eosinophils 10e9/L Absolute 0.0 0.0 - 0.2 [place] Basophils 10e9/L Diff Method Automated M[facility] Method Specimen Anatomical Collection Method Collection Time Receive d Time (Source) Location / / Volume Laterality 12/14/2009 3:58 PM 0 4:27 CDT PM CDT Vidal Ochoa MD LAB - BLOOD ORDERABLES Performing Organization Address City/State/[facility] Code Phon e Number MISYS Basic metabolic panel (12/14/2009 3:58 PM CDT) athologist Signature Sodium 138 133 - 144 [place]IS[place] mmol/L Potassium 3.5 3.4 - 5.3 [place] mmol/L Chloride 104 94 - 109 [place] mmol/L Carbon Dioxide 28 20 - 32 [place] mmol/L Glucose 71 60 - 99 [place] mg/dL Urea Nitrogen 5 5 - 24 [place] mg/dL Creatinine 0.63 0.52 - 1.04 [place] mg/dL Comment: New IDMS-traceable calibration beginning 09/03/07 GFR Estimate >90 >60 mL/min/1.7m2 MIS[facility] GFR Estimate If Black >90 >60 mL/min/1.7m2 M IS[facility] Calcium 8.7 8.5 - 10.4 mg/dL MISYS Anion Gap 6 6 - 17 mmol/L MIS[facility] Specimen Anatomical Collection Method Collection Time Receive d Time (Source) Location / / Volume Laterality 12/14/2009 3:58 PM 0 4:27 CDT PM CDT Vidal Ochoa MD LAB - BLOOD ORDERABLES Performing Organization Address [facility] Phon e Number MISYS (ABNORMAL) Routine UA with microscopic (12/14/2009 3:35 PM CDT) [facility] Method Time Signature Source Midstream MISYS Urine Color Urine Yellow MISYS Appearance Urine Clear MISYS Glucose Urine Negative NEG mg/dL MISYS Bilirubin Urine Negative NEG MIS[facility] Ketones Urine Negative NEG mg/dL MIS[facility] Specific [place] 1.014 1.003 - MISYS Urine 1.035 Blood Urine Trace (A) NEG MIS[facility] pH Urine 5.0 5.0 - 7.0 MIS[facility] pH Protein Albumin Negative NEG mg/dL MISYS Urine Urobilinogen Normal 0.0 - 2.0 [place]IS[place] mg/dL mg/dL Nitrite Urine Negative NEG M[facility] Leukocyte Negative NEG M[facility] Esterase Urine WBC Urine <1 0 - 2 MIS[facility] /HPF RBC Urine 1 0 - 2 MIS[place] /HPF Squamous 8 (H) 0 - 1 [facility]IS[facility] Epithelial /HPF /HPF Urine Bacteria Urine Few (A) NEG /HPF MIS[facility] Mucous Urine Present (A) NEG /LPF MIS[facility] Specimen Anatomical Collection Method Collection Time Receive d Time (Source) Location / / Volume Laterality 12/14/2009 3:35 PM 0 4:27 CDT PM CDT Vidal Ochoa MD LAB - URINE ORDERABLES Performing Organization Address [facility] Phon e Number MISYS HCG qualitative urine (12/14/2009 3:35 PM CDT) P athologist Signature HCG Qual Urine Negative NEG MISYS Comment: This test provides a presumptive diagno sis of or non-. A confirmed diagnosis should on ly be made by a physician after all clinical and laboratory findings have b een evaluated. Specimen Anatomical Collection Method Collection Time Receive d Time (Source) Location / / Volume Laterality 12/14/2009 3:35 PM 0 4:27 CDT PM CDT Vidal Ochoa MD LAB - URINE ORDERABLES Performing Organization Address City/State/ZIP Code Phon e Number MISYS documented in this encounter Visit Diagnoses Not on filedocumented in this encounter Care Teams Necktie Turner Relationship Specialty Start Date End Date Félix Arteaga MD PCP - General 06/25/05 08/29/14 [facility] [address] [place] [address] documented as of this encounter
--- OUTSIDE RECORDS SUMMARY | 2022-02-09 01:04 | XMS_ITS | Encounter Summary ---
:1975 Author Organization [facility] Address [address] [place] [address] Care Team Providers Name Role Phone Félix Arteaga MD Primary Care Provider + Encounter Details Date Type Department Care Team Description 12/14/2009 Results Only [facility] Lonny Fong MD Hospital Results EMERGENCY PHYSI [facility] [address] [place], [place] [address] (Wo rk) Social History [...] Name Priority Date/Time Associated Diagnosis Comme nts CT SCAN Routine 12/14/2009 6:07 PM Results f or this ABDOMEN/PELVIS CDT procedure are in the results section. documented in this encounter Results CT SCAN ABDOMEN/PELVIS (12/14/2009 6:07 PM CDT) Specimen (Source) Anatomical Collection Method Collection Time Re ceived Time Location / / Volume Laterality 12/14/2009 6:07 PM CDT Impressions RADIOLOGY RESULTS - 12/14/2009 9:[address] ABDOMEN/PELVIS WITH CONTRAST ?? Dec 032009 6:07:00 PM HISTORY: ??Mid to right abdominal pain. Diverticulitis. TECHNIQUE: ??100 ??mL nonionic iodinated contrast material IV. COMPARISON: ??08/09/2009. FINDINGS: ?? Abdomen: ??The upper abdominal organs ap pear normal. ??The stomach and small bowel as seen with this technique appear normal. ??There is no free air, free fluid or adenopathy. ?? Pelvis: ??The appendix has become slight ly more dilated than on the previous exam, now 1.1 cm thick with lisseth tral fluid containing area. However there is no adjacent strand-like density to ??suggest acute inflammation. Uterus is retroverted. The ovaries appea r normal. Bladder appears normal. No adenopathy, free air or free fluid. IMPRESSION: ??Increase in dilatation of the appendix since previous exam without adjacent inflammation. Diff erential diagnosis includes chronic appendicitis and other diseases of the appendix including Crohn's disease or early mucocele. Vidal Ochoa MD [employer] [facility]UDIES Performing Organization Address City/State/ZIP Code Phon e Number RADIOLOGY RESULTS documented in this encounter Visit Diagnoses Not on filedocumented in this encounter Care Teams Home Care Chaplain Relationship Specialty Start Date End Date Félix Arteaga MD PCP - General 06/25/05 08/29/14 [facility] [address] [place] [address] documented as of this encounter
--- OUTSIDE RECORDS SUMMARY | 2022-02-09 01:04 | XMS_ITS | Encounter Summary ---
:1975 Author Organization [facility] Address [address] [facility] [address] Care Team Providers Name Role Phone Félix Arteaga MD Primary Care Provider + Reason for Visit Reason Comments Previsit LMX1 11/07 NRK Pre-Op Exam ovarian biopsy Consult colonoscopy Encounter Details Date Type Department Care Team Description 11/14/2010 Office Visit [facility] Sean Ernst, Preop [facility] Thi Carreno MD exam (Primary Dx) [address] [id number] [phone] Social History Tobacco Use Types Packs/Day Years [...] Sign Reading Time Taken Comments Blood Pressure 110/68 11/14/2010 4:08 PM CDT Pulse 82 11/14/2010 4:08 PM CDT Temperature 36.7 ??C (98 ??F) 11/14/2010 4:08 PM CDT Respiratory Rate - - Oxygen Saturation 99% 11/14/2010 4:08 PM CDT Inhaled Oxygen Concentration - - Weight 64.9 kg (143 lb) 11/14/2010 4:08 PM CDT Height - - Body Mass Index 24.93 09/24/2010 3:10 PM CDT documented in this encounter Progress Notes Valerie Liao - 11/14/2010 3:58 PM CDT [address] [address] PRE-OP EVALUATION: Today's date: 11/14/2010 Alyssa Aguillon (: 1975) presents for pre-operative evaluation assessment as requested by Dr. Grissom She requires evaluation and anesthesia risk assessment prior to undergoing surgery/procedure for treatment of . Proposed procedure: *cone biiopsy Date of Surgery/ Procedure: 11/19 Time of Surgery/ Procedure: 7:30am Hospital/Surgical Facility: [facility] Primary Physician:Chandler Type of Anesthesia Anticipated: General History of anesthesia complications: NONE History of abnormal bleeding: NONE History of blood transfusions: NO Patient has a Health Care Directive or Living Will: NO PREOP QUESTIONNAIRE 1- NO - Do you ever have any pain or discomfort in your chest? 2- NO - Have you ever had a severe pain across the front of your chest lasting for half an hour or more? 3- NO - Do you have swelling in your feet or ankles at times? 4- NO - Are you troubled by shortness of breath when: walking on the level/ up a slight hill/ at night? 5- NO - Does your chest ever sound wheezy or whistling? 6- NO - Do you currently have a cold, bronchitis or other respiratory infection? 7- NO - Have you had a cold, bronchitis or other respiratory infection within the last 2 weeks? 8- NO - Do you usually have a cough? 9- NO - Do you sometimes get pains in the calves of your legs when you walk? 10-NO - Do you or anyone in your family have previous history of blood clots? 11-NO - Do you or does anyone in your family have serious bleeding problem such as prolonged bleeding following surgeries or cuts? 12-NO - Have you ever had problems with anemia or been told to take iron pills? 13-NO - Have you had any abnormal blood loss such as black, tarry or bloody stools, or abnormal vaginal bleeding? 14-NO - Have you or any of your relatives ever had problems with anesthesia? 15-YES - Do you snore or stop breathing at night? A bit 16-NO - Do you have any prosthetic heart valves or joints? 17-NO - Is there any chance that you may be ? HPI: none Patient Active Problem List Diagnoses Date Noted ??? Abnormal Pap smear [796.9G] 10/02/201009/2010 [facility], referred for colp, plans f/u with [facility] PRODUCTION CONTROL TECHNOLOGIST ??? Ovarian cyst [620.2S] 09/24/2010 ??? Menorrhagia [626.2A] 09/24/2010 ??? Anemia [285.9Y] 07/30/2010 ??? CARDIOVASCULAR SCREENING; LDL GOAL LESS THAN 160 [V81.2LR] 03/04/2010 Past Medical History Diagnosis Date ??? Streptococcal sore throat required hospitalization 1 yr ago ??? Abnormal Pap smear 8 yrs ago, 09/2010 [facility] Past Surgical History Procedure Date ??? Colposcopy cervix, loop electrode biopsy, combined years ago, 8 years ago LEEP Current outpatient prescriptions Medication Sig ??? ferrous sulfate 325 (65 FE) MG tablet Take 1 tablet by mouth daily (with breakfast). ??? TYLENOL OR 2 TABLETS EVERY 4 HOURS NEEDED ??? SUDAFED OR 2 TABLETS EVERY 4 TO 6 HOURS NEEDED OTC products: none No Known Allergies Latex Allergy: NO History Substance Use Topics ??? Smoking status: Never Smoker ??? Smokeless tobacco: Not on file ??? Alcohol Use: Yes rare History Drug Use No REVIEW OF SYSTEMS: C: NEGATIVE for fever, chills, change in weight E/M: NEGATIVE for ear, mouth and throat problems R: NEGATIVE for significant cough or SOB CV: NEGATIVE for chest pain, palpitations or peripheral edema EXAM: There were no vitals taken for this visit. GENERAL APPEARANCE: healthy, alert and no distress HENT: ear canals and TM's normal and nose and mouth without ulcers or lesions RESP: lungs clear to auscultation - no rales, rhonchi or wheezes CV: regular rate and rhythm, normal S1 S2, no S3 or S4 and no murmur, click or rub ABDOMEN: soft, nontender, no HSM or masses and bowel sounds normal NEURO: Normal strength and tone, sensory exam grossly normal, mentation intact and speech normal DIAGNOSTICS: Preop Testing Not indicated IMPRESSION: Reason for surgery/procedure: Cone Bx Diagnosis/reason for consult: Assess Surgical Risk The proposed surgical procedure is considered LOW risk. For above listed surgery and anesthesia: Patient is at LOW risk for surgery/procedure and perioperative/procedure complications. RECOMMENDATIONS: --Approval given to proceed with proposed procedure, without further diagnostic evaluation. Signed Electronically by: SEAN ERNST Copy of this evaluation report is provided to requesting physician. Preop Guidelines [place] [id number] documented in this encounter Nursing Notes 11/14/2010 4:00 PM CDT >> VALERIE LIAO Wed Nov 14, 2010 4:19 PM Patient presents with: Previsit - LMX1 7/ NRK Pre-Op Exam - ovarian biopsy Consult - colonoscopy Initial BP 110/68 Pulse 82 Temp(Src) 98 ??F (36.7 ??C) (Oral) Wt 143 lb (64.864 kg) SpO2 99%BMIHIS@ BP completed using cuff size regular riht Arm Health Maintenance Updated with Patient:Yes Tobacco Verified: Yes Payor/Verify RX Benefits/Reconcile Disp Completed if allowed: Yes Family History Updated: Yes Immunizations Up to Date: yes Mychart Offered: Yes Valerie Liao MA documented in this encounter Plan of Treatment Not on filedocumented as of this encounter Procedures Procedure Name Priority Date/Time Associated Diagnosis Comme nts HEMOGLOBIN Routine 11/14/2010 4:46 PM Preop general Results for this CDT physical exam procedure are in the results section . documented in this encounter Results (ABNORMAL) Hemoglobin (11/14/2010 4:46 PM CDT) P athologist Signature Hemoglobin 11.1 (L) 11.7 - 15.7 [facility] g/dL [facility] Specimen Anatomical Collection Method Collection Time Receive d Time (Source) Location / / Volume Laterality Blood specimen 11/14/2010 4:46 PM 011 4:51 (specimen) CDT PM CDT Sean Ernst MD LAB - BLOOD ORDERABLES Performing Organization Address City/State/ZIP Code Phon e Number [facility] [address] [place] [address] [facility] documented in this encounter Visit Diagnoses Diagnosis Preop general physical exam - Primary Other specified pre-operative examinatio n documented in this encounter Care Teams Stone Trimmer Relationship Specialty Start Date End Date Félix Arteaga MD PCP - General 06/25/05 08/29/14 [facility] [address] [place] [address] documented as of this encounter
--- OUTSIDE RECORDS SUMMARY | 2022-02-09 01:04 | XMS_ITS | Encounter Summary ---
:1975 Author Organization [place] Address [address] [place] [address] Care Team Providers Name Role Phone Félix Arteaga MD Primary Care Provider + Reason for Visit Reason Comments Abnormal Bleeding Problem period for only 1 day, light bleeding, LMP was 09/14 and stopped on 09/15, pt left a u rine, also some cramping/bloating Nausea nausea, cramping, frequent u rination Encounter Details Date Type Department Care Team Description 09/24/2010 Office Visit [facility] Elissa Hurt MD Abdominal bloating (Primary Dx); Clinic [facility] Screening for malignant neop lasm of the cervix; [address] [facility] Need for prophylactic vaccination with t etanus-diphtheria (TD); [place], [place] [address] Anemia; [address] [place] [address] Menorrhagia; [phone] Ovarian cyst; (Work) Urinary frequency; Nausea Social History Tobacco Use Types Packs/Day Years [...] Sign Reading Time Taken Comments Blood Pressure 118/74 09/24/2010 3:10 PM CDT Pulse 78 09/24/2010 3:10 PM CDT Temperature 36.5 ??C (97.7 ??F) 09/24/2010 3:10 PM CDT Respiratory Rate - - Oxygen Saturation 100% 09/24/2010 3:10 PM CDT Inhaled Oxygen Concentration - - Weight 65.8 kg (145 lb) 09/24/2010 3:10 PM CDT Height 161.3 cm (5' 3.5) 09/24/2010 3:10 PM CDT Body Mass Index 25.28 09/24/2010 3:10 PM CDT documented in this encounter Patient Instructions Patient InstructionsWElissa bertrand MD - 09/24/2010 4:16 PM CDT We did blood and urine testing for you today You will be contacted to do pelvic ultrasound Use macrobid for possible urine infection, while waiting for urine culture If all labs comes out negative and if still having issues, let me know, we can consider doing scanning of abdomen and /or seeing in tube conversion technician for this Elissa Hurt MD documented in this encounter Progress Notes Elissa Hurt MD - 09/24/2010 3:28 PM CDT SUBJECTIVE: this is a 35 year old female with Not feeling right for last week Very nauseated for last few days, going more often to urinate No dysuria, no vomiting, no fevers, no chills, feeling dizzy at times, pt reported lmp 2 weeks ago,very light, normally period lasting for 5-6 days with heavy bleeding, but last period, lasted for one day Still feeling abd cramping and bloating around same time Had some brown discharge on past Friday Sexually active, not using anything for contraception-if becomes ok with her [id number] tring to become Tried home upt, neg, with her prior pregnency, never home pregnency positive- wants to do blood testing for this No hx of kidney stones or gall stones Not feeling depressed or down Hx of anemia in past , due to heavy periods-no recent endometrial biopsy done Had ultrasound in past but not had follow up u/s or seen ob for this [facility] otherwise neg OBJECTIVE: Filed Vitals: 09/24/10 1510 BP: 118/74 Pulse: 78 Temp: 97.7 ??F (36.5 ??C) TempSrc: Oral Height: 5' 3.5 (1.613 m) Weight: 145 lb (65.772 kg) SpO2: 100% EXAM: Constitutional: healthy, alert and no distress Respiratory: negative, Percussion normal. Good diaphragmatic excursion. Lungs clear Neck: Neck supple. No adenopathy. Thyroid symmetric, normal size,, Carotids without bruits. Abdomen: Abdomen soft, non-tender. BS normal. 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 Plan: CBC with platelets differential, HCG qualitative, Comprehensive metabolic panel, TSH with free T4 reflex ddx considered Check above If labs neg, consider gi eval if indicated -including abd scan and gi consult V76.2 Screening for malignant neoplasm of the cervix Comment: Plan: PAP imaged thin layer screen V06.5 Need for prophylactic vaccination with tetanus-diphtheria (TD) Comment: Plan: 285.9Y Anemia Comment: Plan: US Pel W/Trans* Pt to do this 626.2A Menorrhagia Comment: Plan: US Pel W/T Pt to do this along with tsh and cbc done 620.2S Ovarian cyst Comment: Plan: US Pel W/Trans* Repeat ultrasound for follow up 788.41 Urinary frequency Comment: Plan: UA macroscopic with reflex to micro 787.02A Nausea Comment: Plan: UA macroscopic with reflex to micro, CBC with platelets differential, HCG qualitative, Comprehensive metabolic panel Ddx considered Her abd exam benign If labs neg and continued issues, do ct of abd and pelvis to make sure no kidney stones vs other etio Elissa Hurt MD Patient Instructions We did blood and urine testing for you today You will be contacted to do pelvic ultrasound Use macrobid for possible urine infection, while waiting for urine culture If all labs comes out negative and if still having issues, let me know, we can consider doing scanning of abdomen and /or seeing in tube conversion technician for this Elissa Hurt MD documented in this encounter Nursing Notes 09/24/2010 3:00 PM CDT >> JULIANNE MERAZ Mon September 24, 2010 3:14 PM Patient presents with: Abnormal Bleeding Problem - period for only 1 day, light bleeding, LMP was 09/14 and stopped on 09/15, pt left a urine, also some cramping/bloating Nausea - nausea, cramping, frequent urination Initial BP 118/74 Pulse 78 Temp(Src) 97.7 ??F (36.5 ??C) (Oral) Ht 5' 3.5 (1.613 m) Wt 145 lb (65.772 kg) BMI 25.28 kg/m2 SpO2 100% LMP 09/14/2010 Estimated Body mass index is 25.28 kg/(m^2) as calculated from the following: Height as of this encounter: 5' 3.5(1.613 m). Weight as of this encounter: 145 lb(65.772 kg).. BP completed using cuff size: regular Julianne Meraz PLANT GUARD JASWINDER done for last pap on 09/24/10, put in has historical.Julianne Meraz ELEN documented in this encounter Plan of Treatment Not on filedocumented as of this encounter Procedures Procedure Name Priority Date/Time Associated Comments Diagnosis PAP IMAGED THIN LAYER Routine 09/24/2010 4:57 PM Screening for Results for this SCREEN CDT malignant neoplasm procedure are in of the cervix the results section. URINE CULTURE Routine 09/24/2010 4:16 PM Urinary frequency Res ults for this CDT procedure are i n the results section. CBC WITH PLATELETS & Routine 09/24/2010 3:37 PM Abdomina l bloating Results for this DIFFERENTIAL CDT Nausea procedure are i n the results section. UA MACROSCOPIC WITH Routine 09/24/2010 3:37 PM Urinary f requency Results for this REFLEX TO MICRO CDT Nausea procedure ar e in the results section. TSH WITH FREE T4 Routine 09/24/2010 3:37 PM Abdominal bloating Results for this REFLEX CDT procedure are i n the results section. URINE MICROSCOPIC EXAM Routine 09/24/2010 3:37 PM Results for this CDT procedure are i n the results section. HCG QUALITATIVE Routine 09/24/2010 3:37 PM Abdominal blo ating Results for this CDT Nausea procedure are i n the results section. COMPREHENSIVE Routine 09/24/2010 3:37 PM Abdominal blo ating Results for this METABOLIC PANEL CDT Nausea procedure ar e in the results section. PAP IMAGED THIN LAYER Routine 08/03/2010 Screening for Resul ts for this SCREEN malignant neoplasm procedure are in of the cervix the results section. documented in this encounter Results (ABNORMAL) PAP imaged thin layer screen (09/24/2010 4:57 PM CDT) Component Value Ref Test Analysis Performed At [employer] Range Method Time Signature PAP ASC-H (A) COPATH Copath Report COPATH Patient Name: COURTNEY LIZAMA MR#: [id number] Specimen #: [id number] Collected: 09/24/2010 Received: 09/26/2010 Reported: 09/27/2010 16:11 Ordering Phy(s): ELISSA HURT SPECIMEN/STAIN PROCESS: Pap imaged thin layer prep screening (Surepath, FocalPoint w ith guided screening) ? Pap-Cyto x 1, Reflex HPV x 1 SOURCE: Endocervical ---- Pap imaged thin layer prep screening (Surepath, FocalPoint with guided screening) SPECIMEN ADEQUACY: Satisfactory for evaluation. -Transformation zone component absent. CYTOLOGIC INTERPRETATION: Epithelial Cell Abnormality: ??Squamous Cell: Atypical squam ous cells-cannot exclude ??high-grade squamous intraepithelial l esion. ? Organism(s): -Fungal organisms morphologically consistent with Charito sp p. Electronically signed out by: Angel Neely M.D. Processed and screened at [facility] CLINICAL HISTORY: LMP: 09/14/2010 Previous normal pap Date of Last Pap: 08/03/2010, Papanicolaou Test Limitations: ??Cervical cytology is a scre ening test with limited sensitivity; regular screening is critical for cancer prevention; Pap tests are primarily effective for the diagnosis/prevention of squamous cell carcinoma, not adenoca rcinomas or other cancers. TESTING LAB LOCATION: [facility] [address] [address] [place], [place] ??[address] COLLECTION SITE: Client: ??[facility] Location: [facility] (R) Specimen (Source) Anatomical Collection Method Collection Time Re ceived Time Location / / Volume Laterality Cytologic 09/24/2010 4:57 09/26/2010 material PM CDT 10:50 AM CDT (specimen) Elissa Hurt MD LAB - OPTIME CLINICAL SPECIM EN Performing Organization Address City/[facility]/ZIP Code Phon e Number COPATH URINE CULTURE (09/24/2010 4:16 PM CDT) [facility] Method Time Signature Specimen Midstream [facility] Urine [facility] Culture Micro No growth [facility] Micro Report FINAL STORY Status 09/26/2010 [facility] Specimen Anatomical Collection Method Collection Time Receive d Time (Source) Location / / Volume Laterality 09/24/2010 4:16 PM 1 4:17 CDT PM CDT Elissa Hurt MD LAB - MICRO GENERAL ORDERABL ES Performing Organization Address City/[facility]/ZIP Code Phon e Number M [facility] [address] [place] [address] [facility] (ABNORMAL) Microscopic exam urine (09/24/2010 3:37 PM CDT) P athologist Signature WBC Urine O - 2 0 - 2 /HPF [facility] RBC Urine 2-5 (A) 0 - 2 /HPF [facility] Bacteria Urine Few (A) NEG /HPF [facility] Specimen Anatomical Collection Method Collection Time Receive d Time (Source) Location / / Volume Laterality 09/24/2010 3:37 PM 1 3:38 CDT PM CDT Elissa Hurt MD LAB - URINE ORDERABLES Performing Organization Address City/[facility]/ZIP Code Phon e Number [facility] [address] [place] [address] [facility] TSH with free T4 reflex (09/24/2010 3:37 PM CDT) athologist Signature TSH 0.88 0.4 - 5.0 [facility] mU/L [facility] Specimen Anatomical Collection Method Collection Time Receive d Time (Source) Location / / Volume Laterality Blood specimen 09/24/2010 3:37 PM 011 3:38 (specimen) CDT PM CDT Elissa Hurt MD LAB - BLOOD ORDERABLES Performing Organization Address City/State/ZIP Code Phon e Number [facility] [address] [place] [address] [facility] (ABNORMAL) Comprehensive metabolic panel (09/24/2010 3:37 PM CDT) athologist Signature Sodium 143 133 - 144 STORY mmol/L [facility] Potassium 3.8 3.4 - 5.3 STORY mmol/L [facility] Chloride 103 94 - 109 [facility] mmol/L [facility] Carbon Dioxide 27 20 - 32 ST[facility] mmol/L [facility] Anion Gap 13 6 - 17 ST[facility] mmol/L [facility] Glucose 104 (H) 60 - 99 STORY mg/dL [facility] Urea Nitrogen 9 5 - 24 [facility] mg/dL [facility] Creatinine 0.66 0.52 - [place] 1.04 mg/dL [facility] GFR Estimate >90 >60 STORY mL/min/1.7 [facility] m2 LAB GFR Estimate If >90 >60 STORY Black mL/min/1.7 [facility] m2 LAB Calcium 9.5 8.5 - 10.4 STORY mg/dL [facility] Bilirubin Total 1.0 0.2 - 1.3 STORY mg/dL [facility] Albumin 4.3 3.9 - 5.1 ST[facility] g/dL [facility] Comment: Reference range changed on 01/04. Protein Total 8.1 6.8 - 8.8 g/dL [facility] Comment: As of 07, reference range reflects plasma specimen type. Alkaline Phosphatase 59 40 - 150 U/L [facility] ALT 11 0 - 50 U/L [facility] AST 35 0 - 45 U/L [facility] Specimen Anatomical Collection Method Collection Time Receive d Time (Source) Location / / Volume Laterality Blood specimen 09/24/2010 3:37 PM 011 3:38 (specimen) CDT PM CDT Elissa Hurt MD LAB - BLOOD ORDERABLES Performing Organization Address City/[facility] Phon e Number [facility] [address] [place] [address] [facility] HCG qualitative (09/24/2010 3:37 PM CDT) Patholo gist Method Time Signature HCG Qualitative Negative NEG STORY Serum [facility] Specimen Anatomical Collection Method Collection Time Receive d Time (Source) Location / / Volume Laterality Blood specimen 09/24/2010 3:37 PM 011 3:38 (specimen) CDT PM CDT Elissa Hurt MD LAB - BLOOD ORDERABLES Performing Organization Address [facility] Phon e Number [facility] [address] [place] [address] [facility] (ABNORMAL) CBC with platelets differential (09/24/2010 3:37 PM CDT) P athologist Signature WBC 6.3 4.0 - 11.0 [facility] 10e9/L [facility] RBC Count 4.03 3.8 - 5.2 [facility] 10[facility]12[facility] Hemoglobin 11.1 (L) 11.7 - 15.7 [facility] g/dL [facility] Comment: Reviewed: OK with previous Hematocrit 33.4 (L) 35.0 - 47.0 % [facility] MCV 83 78 - 100 fl [facility] MCH 27.5 26.5 - 33.0 pg [facility] MCHC 33.2 31.5 - 36.5 g/dL [facility] RDW 13.5 10.0 - 15.0 % [facility] Platelet Count 268 150 - 450 10e9/L [facility] Diff Method Automated Method [facility] % Neutrophils 64.8 40 - 75 % [facility] % Lymphocytes 27.1 20 - 48 % [facility] % Monocytes 7.3 0 - 12 % [facility] % Eosinophils 0.5 0 - 6 % [facility] % Basophils 0.3 0 - 2 % [facility] Absolute Neutrophil 4.1 1.6 - 8.3 10e9/L [facility] Absolute Lymphocytes 1.7 0.8 - 5.3 10e9/L [facility] Absolute Monocytes 0.5 0.0 - 1.3 10e9/L [facility] Absolute Eosinophils 0.0 0.0 - 0.7 10e9/L [facility] Absolute Basophils 0.0 0.0 - 0.2 10e9/L [facility] Specimen Anatomical Collection Method Collection Time Receive d Time (Source) Location / / Volume Laterality Blood specimen 09/24/2010 3:37 PM 011 3:38 (specimen) CDT PM CDT Elissa Hurt MD LAB - BLOOD ORDERABLES Performing Organization Address City/State/ZIP Code Phon e Number [facility] [id number] [place] [phone] [facility] (ABNORMAL) UA macroscopic with reflex to micro (09/24/2010 3:37 PM CDT) [facility] Method Time Signature Color Urine Yellow [facility] Appearance Urine Clear [facility] Glucose Urine Negative NEG mg/dL [facility] Bilirubin Urine Negative NEG [facility] Ketones Urine Negative NEG mg/dL [facility] Specific [place] 1.020 1.003 - STORY Urine 1.035 [facility] Blood Urine Trace (A) NEG [facility] pH Urine 6.5 5.0 - 7.0 STORY pH [facility] Protein Albumin Negative NEG mg/dL STORY Urine [facility] Urobilinogen 0.2 0.2 - 1.0 STORY Urine EU/dL [facility] Nitrite Urine Negative NEG [facility] Leukocyte Negative NEG STORY Esterase Urine [facility] Source Midstream STORY Urine [facility] Specimen Anatomical Collection Method Collection Time Receive d Time (Source) Location / / Volume Laterality Urine specimen 09/24/2010 3:37 PM 011 3:38 (specimen) CDT PM CDT Elissa Hurt MD LAB - URINE ORDERABLES Performing Organization Address City/[facility]/ZIP Code Phon e Number [facility] [id number] [place] [address] [facility] PAP imaged thin layer screen (08/03/2010) P athologist Signature PAP Date 08/03/10 MISYS PAP NIL MISYS Specimen (Source) Anatomical Location Collection Method Collection Time Received Time / Laterality / Volume Cytologic material 08/03/2010 (specimen) Elissa Hurt MD LAB - OPTIME CLINICAL SPECIM EN Performing Organization Address City/[facility]/ZIP Code Phon e Number MISYS documented in this encounter Visit Diagnoses Diagnosis Abdominal bloating - Primary Flatulence, eructation, and gas pain Screening for malignant neoplasm of the cervix Need for prophylactic vaccination with t etanus-diphtheria (Td) Anemia Anemia, unspecified Menorrhagia Excessive or frequent menstruation Ovarian cyst Other and unspecified ovarian cyst Urinary frequency Nausea Nausea alone documented in this encounter Care Teams Party Planner Relationship Specialty Start Date End Date Félix Arteaga MD PCP - General 06/25/05 08/29/14 [facility] [address] [place] [address] documented as of this encounter
--- OUTSIDE RECORDS SUMMARY | 2022-02-09 01:04 | XMS_ITS | Encounter Summary ---
:1975 Author Organization [place] Address [address] 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 Drink plenty of fluids. - Activity No heavy lifting greater than 15 lbs Instructions: No driving while taking Percocet - Report temp if 100.5 degrees F greater than: - Symptoms/Problems to 1. Pain not controlled with oral pain look for at home- medications. call the physician 2. Redness, drainage or bleeding at incision about: site. 3. Fever greater than 101.0 or 100.5 x 2. 4. If no bowel movement in 3 days or constipation, try Milk of Magnesia, Fleets enema or another over the counter remedy. 5. Any questions or concerns Follow Up Care - Physician/clinician Dr. Mtz name: - - When to see 2-3 weeks physician/clinician: Phyllis Melendez (RN)[Signed 10:00] Authored: Discharge Planning, Discharge Information, Medications and Prescriptions, Special Care Needs and Instructions, Follow Up Care documented in this encounter Plan of Treatment Not on filedocumented as of this encounter Visit Diagnoses Not on filedocumented in this encounter Care Teams Industrial Plant Custodian Relationship Specialty Start Date End Date Félix Arteaga MD PCP - General 06/25/05 08/29/14 [facility] [address] [place] [address] documented as of this encounter
--- OUTSIDE RECORDS SUMMARY | 2022-02-09 01:04 | XMS_ITS | Encounter Summary ---
:1975 Author Organization [place] Address [address] [place] [address] Care Team Providers Name Role Phone Félix Arteaga MD Primary Care Provider + Encounter Details Date Type Department Care Team Description 08/09/2009 Results Only [facility] Valerie Aj, Hospital Results MD EM[facility]Y [facility]YS[facility] [address] [place] [address] (Wo rk) Social History Tobacco Use Types [...] Associated Diagnosis Comme nts CT SCAN Routine 08/09/2009 9:45 PM Results f or this ABDOMEN/PELVIS CDT procedure are in the results section. documented in this encounter Results CT SCAN ABDOMEN/PELVIS (08/09/2009 9:45 PM CDT) Specimen (Source) Anatomical Collection Method Collection Time Re ceived Time Location / / Volume Laterality 08/09/2009 9:45 PM CDT Impressions RADIOLOGY RESULTS - 08/09/2009 11:[address] ABDOMEN/PELVIS WITH CONTRAST ?? Aug 9:45:00 PM HISTORY: Abdominal pain in the periumbil ical region. TECHNIQUE: ??CT abdomen and pelvis with 100 mL Optiray 350 IV. COMPARISON: None. FINDINGS: The liver, gallbladder, adrena ls, spleen, pancreas, and kidneys show no acute abnormalities. Nor mal caliber of the abdominal aorta. No free air. No evidence for uzma l obstruction. Moderate stool within the colon. Stool distending the r ectosigmoid colon. No adenopathy by size criteria. Small hiata l hernia. Tiny central hepatic calcification at the prieto hepatis of un certain significance. There is a tubular structure medial to t he cecum on image 50 series 2 measuring 8 mm in thickness. This possib ly represents the appendix. This structure does not contain internal bubbles of gas as is typically seen in a noninflamed appendix . However, no convincing surrounding inflammatory change is seen about this structure. There is a small amount of free fluid in the pelvis. There may be a corpus luteum that appears partially inv oluted at the right ovary measuring 1.8 cm on image 60 series 2. IMPRESSION: 1. Questionable finding of a mildly dist ended appendix measuring 8 mm at the right lower quadrant, image 50 se steve 2. No striking surrounding inflammatory change adjacent to this structure. The findings cannot completely exclude early presentation of acute appendicitis, and close clinical followu p is warranted. If symptoms continue, a repeat scan may be obtained to evaluate for any progression. 2. No other acute abnormality. 3. Small hiatal hernia. Valerie Aj MD [employer] Performing Organization Address City/State/ZIP Code Phon e Number RADIOLOGY RESULTS documented in this encounter Visit Diagnoses Not on filedocumented in this encounter Care Teams Rn Hedis Relationship Specialty Start Date End Date Félix Arteaga MD PCP - General 06/25/05 08/29/14 [facility] [employer] [facility] [address] [place] [address] documented as of this encounter
--- OUTSIDE RECORDS SUMMARY | 2022-02-09 01:04 | XMS_ITS | Encounter Summary ---
:1975 Author Organization [facility] Address [address] [place] [address] Care Team Providers Name Role Phone Félix Arteaga MD Primary Care Provider + Reason for Referral Specialty Diagnoses / Procedures Referred By Contact Refer red To Contact Félix Arteaga MD [facility] [address] [place] [address] Referral ID Status Reason Start Date Expiration Date Visits Requ ested Visits Authorized Encounter Details Date Type Department Care Team Description 11/02/2007 Orders Only [facility] Félix Arteaga IAGNOSIS NOT YET Clinic [place] Redd Baxter MD DEFINED (Primary Dx) [address] [place], [place] [address] [address] [phone] [place], [place] [address] (Wo rk) Social History [...] Procedure Name Priority Date/Time Associated Diagnosis Comme kemal [facility] REFERRAL Routine 11/02/2007 DIAGNOSIS NOT YET DEFINED documented in this encounter Results CONSULT TO PSYCHOLOGY (11/02/2007) Narrative This result has an attachment that is no t available. Félix Arteaga MD REFERRAL documented in this encounter Visit Diagnoses Diagnosis DIAGNOSIS NOT YET DEFINED - Primary documented in this encounter Care Teams Lacing Operator Relationship Specialty Start Date End Date Félix Arteaga MD PCP - General 06/25/05 08/29/14 [facility] [address] [place] [address] documented as of this encounter
--- OUTSIDE RECORDS SUMMARY | 2022-02-09 01:04 | XMS_ITS | Encounter Summary ---
:1975 Author Organization [place] Address [address] [place] [address] Care Team Providers Name Role Phone Félix Arteaga MD Primary Care Provider + Encounter Details Date Type Department Care Team Description 08/09/2009 Emergency room [facility] Valerie Palomares, Hospital Results MD EMERGENCY PHYSIC [facility] [address] [place] [address] (Wo rk) Social History Tobacco Use Types Packs/Day Years Used Date Never Smoker Alcohol Use Standard Drinks/Week Comments Not Asked 0 (1 standard drink = 0.6 oz pure alcoho l) Sex Assigned at Date Recorded Not on file documented as of this encounter Progress Notes Valerie Palomares - 08/12/2009 10:48 AM CDT FINAL CHIEF COMPLAINT: Mid abdominal discomfort into right and left lower quadrants on and off for 2 months. Some intermittent nausea today. HISTORY OF PRESENT ILLNESS: Courtney Lizama is a 33-year-old female who presents to the emergency room with the above stated concerns. Per her report, she has had mid abdominal pain on and off for the last couple of months. She notes she was seen in April for similar issues and was diagnosed with a urinary tract infection at that time. She did not have any imaging of her abdomen. She has not seen a doctor in followup because she does not have insurance right now. She notes it is a crampy typepain and seems like period cramps but it is not when she is having period. She notes she has irregular periods but did have her last menstrual period in July. She currently denies any nausea, althoughnotes that earlier in the day she did have some. She denies any vomiting. She notes she feels distended and bloated. She denies any vaginal bleeding or vaginal discharge. She denies any diarrhea. She has been having normal bowel movements. They do not seem to change her symptoms. She says the pain is not associated with any other symptoms like sweating or palpitations. She notes there is nothing specifically that brings it on, but it does sometimes seem worse when she stands for long periods or moves around too much. She had her last menstrual period in first or second week in July. It was normal for her. She has not had any abdominal surgeries. MEDICATIONS: None. ALLERGIES: No known drug allergies. PAST MEDICAL HISTORY: The patient is a G7, P7. She is status post cervical cyst surgery as was a hemorrhoidectomy. She is otherwise healthy. FAMILY HISTORY: Mother with hypertension. She is not sure of her father's medical history. There isno history of early cancers. REVIEW OF SYSTEMS: As noted in history present illness. All other systems are reviewed and negative. PHYSICAL EXAMINATION: VITAL SIGNS: Blood pressure is 143/101, pulse 84, respiratory rate 20, temperature 97 temporally, oxygen saturation 100% on room air. GENERAL: Reveals an uncomfortable appearing female lying flat on astretcher. EYES: Pupils are equally round, react to light. Conjunctivae are normal. ENT: Moist mucous membranes. Oropharynx is clear. CARDIOVASCULAR: Normal S1, S2. Regular rate and rhythm. RESPIRATORY: Clear to auscultation bilaterally. GASTROINTESTINAL: Abdomen is soft and nondistended. There is tenderness diffusely in the mid abdomen as well as slightly in the right lower quadrant and left lower quadrant. There is no suprapubic tenderness. There is no rebound or guarding. There are no palpable masses. There is no upper quadrant abdominal pain or abdominal tenderness. MUSCULOSKELETAL: Moves extremities normally. Is ambulatory without difficulty. SKIN: Warm and dry. No rashes, lesions, or ecchymoses. NEUROLOGIC: Alert and oriented x3. No focal neurologic findings. Responds appropriately to all questioning and commands. PSYCHIATRIC: A pleasant woman. Cooperative. Normal affect. GENITOURINARY: A pelvic exam is performed with a female nurse at the bedside. Speculum exam showed somewhat irregular cervical surface but a closed os. There is some whitish discharge in small amountsbut no obvious purulence. The vagina was within normal limits. Bimanual examination does not show any adnexal tenderness or masses. There is no cervical motion tenderness. LABORATORY AND DIAGNOSTICS: Urinalysis shows 3 squamous epithelial cells but no other abnormalities. Urine is negative. CBC with differential shows mildly decreased hemoglobin at 11.5 and mildly decreased hematocrit at 34, but no other abnormalities. Basic metabolic panel is unremarkable. Medhat prep shows moderate PMNs, no yeast cells, no clue cells and no Trichomonas. Chlamydia and gonorrhea PCRs are pending. CT of abdomen and pelvis with contrast showed questionable findings of a mildlydistended appendix measuring 8 mm at right lower quadrant with no streaking surrounding inflammatorychange adjacent to the structure. The radiologist noted that they could not completely exclude early presentation of acute appendicitis and recommended close clinical followup. There are no other acuteabnormalities. There was a small hiatal hernia. EMERGENCY DEPARTMENT COURSE: Courtney Lizama is a 33-year-old female who presents to the emergency room with mid and lower abdominal pain that has been going on for months. When she presented to the emergency room, her vital signs were significant for mild hypertension but no tachycardia and no fever. She was mildly uncomfortable. An IV was placed and she was given 1 liter of normal saline through the IV. After it was noted that she is not , she was given Toradol 30 mg IV for pain. She did not require anything here in the department for nausea. Genitourinary exam was unremarkable for any adnexal tenderness and I have low suspicion for ovarian or reproductive pathology. The patient did have some mild tenderness on the right lower quadrant on abdominal exam as well as the mid abdomen, so despite the chronicity of the pain I did do a CT of the abdomen and pelvis to look for appendicitis. On the CT, the appendix was mildly dilated but there are no surrounding inflammatory changes. It is not clearly appendicitis. The patient on reassessment continued to look well with no fever, normal vital signs and only mild discomfort. She did not have any vomiting here in the department. I did talk with the patient about observation in the hospital versus going home and returning if things worsen andshe noted that she would prefer to go home and if things worsen, she will return. I did recommend that she follow up with a recycling program manager if her symptoms continue in a mild manner as they have been over the past few months as well as her primary care doctor. She unfortunately is in between insurance at this point but is awaiting reestablishment of insurance and is already applied recently. I do f eel she is reliable. She is here with her family and her 5 children. I have no doubt that she will return if things worsen. On discharge, her vital signs were within normal limits with no fever. The other differential diagnosis I would be considering would be irritable bowel syndrome and less likely inflammatory bowel condition. It is difficult to establish whether or not there is acute on chronic process here, if there is something chronic that needs further evaluation by a GI specialist. At any rate, she is discharged currently in improved condition home with appropriate return precautions. PLAN OF INTERIM CARE AND FOLLOWUP: The patient is told to follow up with her doctor and/or gastroenterology in 2-3 days with continued mild symptoms. She is told to return to the emergency room if pain increases or if she has persistent vomiting or if she develops a fever. She is told to rest, drink plenty fluids, and eat a regular diet. She is told to take ibuprofen 600 mg every 6 hours and Percocet as needed for more severe pain. She was also given Reglan as needed for nausea. DIAGNOSES: 1. Lower abdominal pain. 2. Mildly distended appendix without other signs of appendicitis. 3. Nausea. Electronically signed on 08/12/2009 10:48 by VALERIE PALOMARES MD MT: [id number] Name: COURTNEY LIZAMA Account: [id number] : 1975 Visit Date: 08/09/2009 Document: [id number] documented in this encounter Plan of Treatment Not on filedocumented as of this encounter Visit Diagnoses Not on filedocumented in this encounter Care Teams Operations Technician Relationship Specialty Start Date End Date Félix Arteaga MD PCP - General 06/25/05 08/29/14 [facility] [address] [facility] [place] [address] documented as of this encounter
--- OUTSIDE RECORDS SUMMARY | 2022-02-09 01:04 | XMS_ITS | Encounter Summary ---
:1975 Author Organization [place] Address [address] [place] [address] Care Team Providers Name Role Phone Félix Arteaga MD Primary Care Provider + Encounter Details Date Type Department Care Team Description 11/11/[address] [facility] Maximino Graf, Hospital Results EMERGENCY PHYSIC [facility] [address] [place], [place] [address] (Wo rk) Social History Tobacco Use Types Packs/Day Years Used Date Never Smoker Alcohol Use Standard Drinks/Week Comments Not Asked 0 (1 standard drink = 0.6 oz pure alcoho l) Sex Assigned at Date Recorded Not on file documented as of this encounter Progress Notes Homar Maximino - 11/15/2007 12:01 AM CDT FINAL CHIEF COMPLAINT: Courtney Lizama is feeling dizzy, lightheaded, slightly diaphoretic yesterday, a twinge under her left breast today, hurts to move, it comes off and on and no shortness of breath withit. It feels like a gas pain. She has had no allergies. She has had some chills, she states, but no fever. Low back pain but she gets that a lot according to her. She has had slight nausea but no vomiting and no diarrhea. ALLERGIES: None. MEDICATIONS: None. PAST MEDICAL HISTORY: Hypertension with . SOCIAL HISTORY: She does use alcohol. FAMILY HISTORY: Negative. REVIEW OF SYSTEMS: Ten-point review of systems is all negative except as noted history of present illness for not feeling well and dizziness. PHYSICAL EXAMINATION: VITAL SIGNS: Blood pressure 132/102 in the right arm, 128/90 in the left arm, pulse 96, respiratoryrate is 16, temperature is 98.3 and pulse oximetry is not noted. GENERAL: This is an alert and cooperative woman complaining of some mild lightheadedness and a little bit of twinge under the left breast at times. 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 SKIN: Warm and dry, not diaphoretic. HEENT: Head is normocephalic. Eyes, pupils are equal, regular and react to light and accommodation.Mouth and throat normal. NECK: Supple, no JVD is noted. No carotid bruits or thrills are found. On the neck, she has got no sign of any enlarged thyroid. LUNGS: Clear to auscultation. No rales, rhonchi, no friction rubs or wheezing. HEART: Regular sinus rhythm, no murmurs. ABDOMEN: Soft, nontender to palpation, no guarding or rebound, no palpable masses. NEUROLOGIC: Alert and oriented x3. Good CMS in all extremities. Good remote and recent memory. No pedal edema is noted. LABORATORY DATA: The basic metabolic battery is normal. CBC normal. Urine is negative. Urine is negative. EMERGENCY DEPARTMENT COURSE: IV normal saline 1000 cc an hour. She is feeling a little bit better at this time. DISCHARGE PLAN: Home and rest. Phenergan 25 mg p.r.n. nausea q.4h. See her physician in 2-3 days ifnot better. DISCHARGE VITALS: Blood pressure 119/72, pulse 76, respiratory rate is 16, and O2 sats 99% on room air. DIAGNOSIS: Dizziness. PLAN: See her physician in 2-3 days if not better. CONDITION: Stable. Electronically signed on 11/15/2007 00:01 by MAXIMINO GRAF MD MT: [id number] Name: COURTNEY LIZAMA MRN: [id number] Account: [id number] : 1975 Visit Date: 11/11/2007 Document: [id number] cc: Félix Arteaga MD documented in this encounter Plan of Treatment Not on filedocumented as of this encounter Visit Diagnoses Not on filedocumented in this encounter Care Teams Quartz Orientator Relationship Specialty Start Date End Date Félix Arteaga MD PCP - General 06/25/05 08/29/14 [facility] [address] [place] [address] documented as of this encounter
--- OUTSIDE RECORDS SUMMARY | 2022-02-09 01:04 | XMS_ITS | Encounter Summary ---
:1975 Author Organization [facility] Address [address] [place] [address] Care Team Providers Name Role Phone Félix Arteaga MD Primary Care Provider + Encounter Details Date Type Department Care Team Description 11/11/2007 Historic Results INTERFACED REPORT Johnny Graf MD EMERGENCY PHYSIC [facility] [address] [place], [place] [address] (Wo rk) Social History Tobacco Use Types [...] Comments Diagnosis CBC WITH PLATELETS & STAT 11/11/2007 1:15 PM R esults for this DIFFERENTIAL CDT procedure are i n the results section. BASIC METABOLIC PANEL STAT 11/11/2007 1:15 PM Results for this CDT procedure are i n the results section. HCG QUALITATIVE URINE STAT 11/11/2007 1:10 PM Results for this CDT procedure are i n the results section. ROUTINE UA WITH STAT 11/11/2007 1:10 PM Result s for this MICROSCOPIC CDT procedure are i n the results section. documented in this encounter Results CBC with platelets differential (11/11/2007 1:15 PM CDT) [facility] Method Time Signature MCV 91 78 - 100 [facility] fl MCH 31.7 26.5 - MISYS 33.0 pg MCHC 35.0 31.5 - MISYS 36.5 g/dL RDW 12.9 10.0 - MIS[facility] 15.0 % WBC 7.1 4.0 - MISYS 11.0 10e9/L RBC Count 4.35 3.8 - 5.2 MISYS 10e12/L Hemoglobin 13.8 11.7 - MISYS 15.7 g/dL Hematocrit 39.4 35.0 - MISYS 47.0 % % Neutrophils 63 40 - 75 % MISYS % Lymphocytes 31 20 - 48 % MISYS % Monocytes 6 0 - 12 % MISYS % Eosinophils 0 0 - 6 % MISYS % Basophils 0 0 - 2 % M[facility] Platelet Count 202 150 - 450 [facility] 10e9/L Absolute 4.4 1.6 - 8.3 M[facility] Neutrophil 10e9/L Absolute 2.2 0.8 - 5.3 M[facility] Lymphocytes 10e9/L Absolute 0.4 0.0 - 1.3 [facility] Monocytes 10e9/L Absolute 0.0 0.0 - 0.7 [facility] Eosinophils 10e9/L Absolute 0.0 0.0 - 0.2 [facility] Basophils 10e9/L Diff Method Automated [facility] Method Specimen Anatomical Collection Method Collection Time Receive d Time (Source) Location / / Volume Laterality 11/11/2007 1:15 PM 8 1:04 CDT PM CDT River Graf MD LAB - BLOOD ORDERABLES Performing Organization Address City/State/ZIP Code Phon e Number MISYS Basic metabolic panel (11/11/2007 1:15 PM CDT) P athologist Signature Sodium 143 133 - 144 [facility] mmol/L Potassium 4.4 3.4 - 5.3 [facility] mmol/L Chloride 107 94 - 109 [facility] mmol/L Carbon Dioxide 26 20 - 32 [facility] mmol/L Glucose 81 60 - 99 [facility] mg/dL Urea Nitrogen 9 5 - 24 [facility] mg/dL Creatinine 0.56 0.52 - 1.04 [facility] mg/dL Comment: New IDMS-traceable calibration beginning 09/03/07 GFR Estimate >90 >60 mL/min/1.7m2 [facility] GFR Estimate If Black >90 >60 mL/min/1.7m2 M [facility] Calcium 9.0 8.5 - 10.4 mg/dL [facility] Anion Gap 9 6 - 17 mmol/L [facility] Specimen Anatomical Collection Method Collection Time Receive d Time (Source) Location / / Volume Laterality 11/11/2007 1:15 PM 8 1:04 CDT PM CDT River Graf MD LAB - BLOOD ORDERABLES Performing Organization Address City/State/ZIP Code Phon e Number MISYS (ABNORMAL) Routine UA with microscopic (11/11/2007 1:10 PM CDT) [facility] Method Time Signature Source Midstream [facility] Urine Color Urine Yellow [facility] Appearance Urine Clear [facility] Glucose Urine Negative NEG mg/dL [facility] Bilirubin Urine Negative NEG [facility] Ketones Urine Negative NEG mg/dL [facility] Specific [place] 1.019 1.003 - MISYS Urine 1.035 Blood Urine Negative NEG [facility] pH Urine 5.5 5.0 - 7.0 [facility] pH Protein Albumin Negative NEG mg/dL M[facility] Urine Urobilinogen Normal 0.0 - 2.0 [facility] mg/dL mg/dL Nitrite Urine Negative NEG [facility] Leukocyte Negative NEG [facility] Esterase Urine WBC Urine 1 0 - 2 [facility] /HPF RBC Urine 1 0 - 2 [facility] /HPF Squamous 1 0 - 1 [facility] Epithelial /HPF /HPF Urine Mucous Urine Present (A) NEG /LPF [facility] Specimen Anatomical Collection Method Collection Time Receive d Time (Source) Location / / Volume Laterality 11/11/2007 1:10 PM 8 1:04 CDT PM CDT River Graf MD LAB - URINE ORDERABLES Performing Organization Address City/[facility]/ZIP [facility] Phon e Number MISYS HCG qualitative urine (11/11/2007 1:10 PM CDT) P athologist Signature HCG Qual Urine Negative NEG [facility] Specimen Anatomical Collection Method Collection Time Receive d Time (Source) Location / / Volume Laterality 11/11/2007 1:10 PM 8 1:04 CDT PM CDT River Graf MD LAB - URINE ORDERABLES Performing Organization Address City/State/ZIP Code Phon e Number MISYS documented in this encounter Visit Diagnoses Not on filedocumented in this encounter Care Teams Hedis Abstractor Relationship Specialty Start Date End Date Félix Arteaga MD PCP - General 06/25/05 08/29/14 [facility] [address] [place] [address] documented as of this encounter
[2022-02-09 01:05] LABS: Blood Urea Nitrogen* 11 mg/dL (5-24); Calcium* 8.9 mg/dL (8.4-10.6); Carbon Dioxide* 22 mmol/L (20-32); Glucose* 134 mg/dL (60-115)
--- OUTSIDE RECORDS SUMMARY | 2022-02-09 01:05 | XMS_ITS | Encounter Summary ---
:1975 Author Organization [place] Address [address] [place] [address] Care Team Providers Name Role Phone Félix Arteaga MD Primary Care Provider + Encounter Details Date Type Department Care Team Description 07/02/2006 Discharge Summary [facility] Willard Green MD (Accounts Receivable Accountant) [address] [place] [address] [phone] (Wo rk) Social History Tobacco Use Types Packs/Day Years Used Date Never Smoker Alcohol Use Standard Drinks/Week Comments Not Asked 0 (1 standard drink = 0.6 oz pure alcoho l) Sex Assigned at Date Recorded Not on file documented as of this encounter Progress Notes Willard Green - 07/07/2006 9:46 AM REHABILITATION CENTER MANAGER FINAL HOSPITAL COURSE: Patient is a 30-year-old female roughly 2 weeks admitted for acute viral gastroenteritis with subsequent dehydration with near syncopal symptoms related to that condition. She was admitted and sent to the medical surgical floor. IV fluid hydration was given to the patient. The patient was successfully fluid resuscitated. She still continued to have loose stool but by hospital day #2 had equal input and outputs and by hospital day #3 had greater input than output. With the patient continuing to show hemodynamic stability, she was discharged to home. ADMISSION DIAGNOSES: 1. Acute viral gastroenteritis. 2. Dehydration secondary to gastroenteritis. 3. state. DISCHARGE DIAGNOSES: 1. Acute viral gastroenteritis. 2. Dehydration secondary to gastroenteritis. 3. state. DISCHARGE MEDICATIONS: None. The patient is educated to take [id number] maximum strength Pepto-Bismol 5-10 cc q.h. x4 done at bedtime tonight and in the morning of 07/05/2006. She may advance diet as tolerated but taking care to avoid dairy over the next week. She is recommended to seek good hydration, especially with fluids that may contain salt. Patient to follow up with her primary provider, Dr. Félix Arteaga in 1-2 weeks. Electronically signed on 07/07/2006 09:45 by WILLARD GREEN MD MT: [id number] Name: COURTNEY LIZAMA Account: [id number] : 1975 Admit Date: Discharge Date: 07/04/2006 Document: [id number] BILITATION CENTER MANAGER documented in this encounter Plan of Treatment Not on filedocumented as of this encounter Visit Diagnoses Not on filedocumented in this encounter Care Teams Patient Appointment Coordinator Relationship Specialty Start Date End Date Félix Arteaga MD PCP - General 06/25/05 08/29/14 [facility] [address] [place] [address] documented as of this encounter
--- OUTSIDE RECORDS SUMMARY | 2022-02-09 01:05 | XMS_ITS | Encounter Summary ---
:1975 Author Organization [place] Address [address] [facility] [place] [address] Care Team Providers Name Role Phone Unavailable Primary Care Provider Unavailable Reason for Visit Reason Comments URI sinus congestion and 2 days EDC 05/18/2005 Encounter Details Date Type Department Care Team Description [facility] Thi Carreno MD (Primary Dx) [address] [place], [place] SERVICE [address] [address] [facility] [phone] [address] [place], [place] [address] (Wo rk) Social History Tobacco Use Types Packs/Day Years Used Date Never Smoker Alcohol Use Standard Drinks/Week Comments Not Asked 0 (1 standard drink = 0.6 oz pure alcoho l) Sex Assigned at Date Recorded Not on file documented as of this encounter Last Filed Vital Signs Vital Sign Reading Time Taken Comments Blood Pressure 102/72 01/01/2005 9:15 AM CDT Pulse 96 01/01/2005 9:15 AM CDT Temperature 36.7 ??C (98.1 ??F) 01/01/2005 9:15 AM CDT Respiratory Rate 12 01/01/2005 9:15 AM CDT Oxygen Saturation - - Inhaled Oxygen Concentration - - Weight 73 kg (161 lb) 01/01/2005 9:15 AM CDT Height 163.8 cm (5' 4.5) 01/01/2005 9:15 AM CDT Body Mass Index 27.21 01/01/2005 9:15 AM CDT documented in this encounter Progress Notes Stephen Villa - 01/01/2005 9:56 AM CDT SUBJECTIVE: Alyssa is a 29 year old female presenting with copious nasal discharge, cough nonproductive, nasal discharge clear, sore throat and laryngitis. Onset of symptoms was 2 days ago. Course of illness is worsening. Treatment measures tried include fluids and OTC meds. Predisposing factors include None. Previous Medical History: STREP SORE THROAT Comment: required hospitalization 1 yr ago Active Medications as of 01/01/2005: TYLENOL OR, 2 TABLETS EVERY 4 HOURS NEEDED, Disp: , Rfl: SUDAFED OR, 2 TABLETS EVERY 4 TO 6 HOURS NEEDED, Disp: , Rfl: OBJECTIVE: General appearance: alert and no apparent distress Skin color is pink Hydration status appears adequate with normal skin turgor and moist mucous membranes. HEENT: Conjunctiva are not injected without discharge. Left TM is air/fluid interface. Right TM is air/fluid interface. Nasal mucosa is normal. Oropharyngeal exam is erythematous. Neck is supple with shotty nodes CARDIAC:NORMAL - regular rate and rhythm without murmur. RESP: Normal - CTA without rales, rhonchi, or wheezing. ASSESSMENT: Nasopharyngitis PLAN: Cool mist vaporizer, OTC cough suppressant/expectorant, OTC decongestant/antihistamine and Rx: zithromax Follow up only if unimproved. 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 Initial BP 102/72 Pulse 96 Temp (Src) 98.1 (Oral) Resp 12 Ht 5' 4.5 (1.64m) Wt 161 lbs (73.0kg) LMP OB (05/18/05) Body Mass Index is 27.22 kg/(m^2).. BP completed using cuff size: large, right arm Que Starr LPN documented in this encounter Plan of Treatment Not on filedocumented as of this encounter Procedures Procedure Name Priority Date/Time Associated Diagnosis Comme nts HCL BETA STREP Routine 01/01/2005 9:25 AM Acute Uri Nos Result s for this CONFIRM CDT procedure are i n the results section. HCL STREP GROUP A Routine 01/01/2005 9:25 AM Acute Uri Nos Res ults for this AG (RAPID) CDT procedure are i n the results section. documented in this encounter Results BETA STREP CONFIRM (01/01/2005 9:25 AM CDT) Component Value Ref Test Analysis Performed At Patholo gist Range Method Time Signature Specimen Throat [place] Description [facility] Culture Micro No Beta [place] Streptococcus [facility] Report status FINAL [id number] [facility] Specimen Anatomical Collection Method Collection Time Receive d Time (Source) Location / / Volume Laterality 01/01/2005 9:25 AM 5 9:30 CDT AM CDT Stephen Villa MD LABORATORY Performing Organization Address [facility] Phon e Number [facility] [id number] [place] [id number] [facility] STREP GROUP A AG (RAPID) (01/01/2005 9:25 AM CDT) Component Value Ref Test Analysis Performed At [facility] gist Range Method Time Signature Specimen Throat [facility] Rapid Strep A NEGATIVE: No Group A strepto coccal antigen detected by immunoassay, await [place] Screen culture report. [facility] Report status FINAL [id number] [facility] Specimen Anatomical Collection Method Collection Time Receive d Time (Source) Location / / Volume Laterality 01/01/2005 9:25 AM 5 9:30 CDT AM CDT Stephen Villa MD LABORATORY Performing Organization Address City/[facility] Phon e Number [facility] [address] [place] [address] [facility] documented in this encounter Visit Diagnoses Diagnosis Acute upper respiratory infections of un specified site - Primary documented in this encounter
--- OUTSIDE RECORDS SUMMARY | 2022-02-09 01:05 | XMS_ITS | Encounter Summary ---
:1975 Author Organization [place] Address [address] [place] [address] Care Team Providers Name Role Phone Félix Arteaga MD Primary Care Provider + Reason for Visit Reason Comments UTI frequency- not going alot, c onstipated, had a baby 3 weeks ago- has had sx since Encounter Details Date Type Department Care Team Description 07/11/2006 Office Visit [facility] Meg Solorio TR ACT INFECTION NOS (Primary Dx); Clinic Martin MD Julia [employer]NSPEC CONSTIPATION [address] [place], [place] CLINIC [address] [address] [phone] [place] [address] Social History Tobacco Use Types Packs/Day Years Used Date Never Smoker Alcohol Use Standard Drinks/Week Comments Not Asked 0 (1 standard drink = 0.6 oz pure alcoho l) Sex Assigned at Date Recorded Not on file documented as of this encounter Last Filed Vital Signs Vital Sign Reading Time Taken Comments Blood Pressure 126/86 07/11/2006 1:45 PM VIDEO EDITING INTERN Pulse - - Temperature - - Respiratory Rate - - Oxygen Saturation - - Inhaled Oxygen Concentration - - Weight 72.1 kg (159 lb) 07/11/2006 1:45 PM VIDEO EDITING INTERN Height 161.3 cm (5' 3.5) 07/11/2006 1:45 PM VIDEO EDITING INTERN Body Mass Index 27.72 07/11/2006 1:45 PM VIDEO EDITING INTERN documented in this encounter Progress Notes Meg Solorio - 07/11/2006 2:37 PM CST SUBJECTIVE: Alyssa Aguillon is a 30 year old female who had a baby three weeks ago and then ended up getting dehydrated and needed to be in the hospital. She had a vaginal delivery and was induced two weeks early for hypertension and was Magnesium. She had a lot of cramping after she had the baby and then several episodes of diarrhea. She took Pepto-Bismol and then got constipated. She currently feels like she needs to urinate and has pressure afterward. Only a small amount comesout. No dysuria, but cramping afterward. She has also been constipated and hasn't tried anything yet. She is bottle feeding. OBJECTIVE: BP 126/86 Ht 5' 3.5 (1.61m) Wt 159 lbs (72.1kg) LMP patient awake, alert, oriented appropriately. In no acute distress. appears stated age The abdomen is soft without tenderness, guarding, mass, rebound or organomegaly. Bowel sounds are normal. No CVA tenderness. UA significant for packed WBCs and moderate amounts of bacteria. 25-50 RBCs also seen on micro exam. ASSESSMENT: 599.0 URIN TRACT INFECTION NOS (primary encounter diagnosis) Note: having some hesitancy Plan: UA MICRO IF POSITIVE, CULTURE, URINE (MISYS), MICRO EXAM-URINE, CIPRO 500 MG OR TABS Treat with Cipro for a week given how bad this UTI was 564.00 UNSPEC CONSTIPATION Note: post- state Plan: SENOKOT S 8.6-50 MG OR TABS Will use some Senokot-S to help with constipation documented in this encounter Nursing Notes 07/11/2006 1:45 PM CST >> LINETTE ABDI 07/11/2006 2:10 pm Alyssa Aguillon presents for: UTI - frequency- not going alot, constipated, had a baby 3 weeks ago- has had sx since. Initial BP 126/86 Ht 5' 3.5 (1.61m) Wt 159 lbs (72.1kg) LMP Body mass index is 27.72 kg/(m^2). BP completed using cuff size: regular Linette Abdi CMA documented in this encounter Plan of Treatment Not on filedocumented as of this encounter Procedures Procedure Name Priority Date/Time Associated Diagnosis Comme nts HCL CULTURE, URINE Routine 07/11/2006 2:27 PM Urin Tract Infec tion Results for this (MISYS) VIDEO EDITING INTERN Nos procedure are i n the results section. HCL UA MICRO IF Routine 07/11/2006 2:27 PM Urin Tract Infectio n Results for this POSITIVE VIDEO EDITING INTERN Nos procedure are i n the results section. CL AFF MICRO Routine 07/11/2006 2:27 PM Urin Tract Infection R esults for this EXAM-URINE VIDEO EDITING INTERN Nos procedure are i n the results section. documented in this encounter Results (ABNORMAL) MICRO EXAM-URINE (07/11/2006 2:27 PM VIDEO EDITING INTERN) [facility] Method Time Signature WBC Urine >100 (A) 0 - 2 [facility] RBC Urine 50-100 (A) 0 - 2 [facility] Squamous EPI Few FEW /LPF [facility] Bacteria Urine Moderate (A) NEG /HPF [facility] Specimen Anatomical Collection Method Collection Time Receive d Time (Source) Location / / Volume Laterality 07/11/2006 2:27 PM 7 2:29 VIDEO EDITING INTERN PM VIDEO EDITING INTERN Meg Solorio MD LABORATORY Performing Organization Address City/State/ZIP Code Phon e Number [facility] [id number] [place] [address] [phone] [facility] CULTURE, URINE (MISYS) (07/11/2006 2:27 PM VIDEO EDITING INTERN) [facility] Method Time Signature Specimen Midstream Urine [facility] Culture Micro >100,000 [place] colonies/mL [facility] coli Report status FINAL [id number] [facility] Specimen Anatomical Collection Method Collection Time Receive d Time (Source) Location / / Volume Laterality 07/11/2006 2:27 PM 7 2:29 VIDEO EDITING INTERN PM VIDEO EDITING INTERN Organism Antibiotic Method Susceptibility >100,000 colonies/ml Amoxicillin/Clav <=2 Suscep tible escherichia coli (rachel) >100,000 colonies/ml Ampicillin <=2 Suscept ible escherichia coli (rachel) >100,000 colonies/ml Cefazolin <=4 Suscept ible escherichia coli (rachel) >100,000 colonies/ml Ceftriaxone <=1 Suscept ible escherichia coli (rachel) >100,000 colonies/ml Cefuroxime Axetil 4 Suscept ible escherichia coli (rachel) >100,000 colonies/ml Ciprofloxacin <=0.25 Susc eptible escherichia coli (rachel) >100,000 colonies/ml Gentamicin <=1 Suscept ible escherichia coli (rachel) >100,000 colonies/ml Levofloxacin <=0.25 Susc eptible escherichia coli (rachel) >100,000 colonies/ml Nitrofurantoin <=16 Suscep tible escherichia coli (rachel) >100,000 colonies/ml Ticarcillin <=8 Suscept ible escherichia coli (rachel) >100,000 colonies/ml Ticarcillin/Clav <=8 Suscep tible escherichia coli (rachel) >100,000 colonies/ml Tobramycin <=1 Suscept ible escherichia coli (rachel) >100,000 colonies/ml Trimethoprim/Sulfamethoxazole <=1/19 Susceptible escherichia coli (rachel) Meg Solorio MD LABORATORY Performing Organization Address City/State/ZIP Code Phon e Number [place] [id number] [address] [address] [facility] (ABNORMAL) UA MICRO IF POSITIVE (07/11/2006 2:27 PM VIDEO EDITING INTERN) [facility] Method Time Signature Color Urine Yellow [facility] Appearance Urine Cloudy [facility] Glucose Urine Negative NEG mg/dL [facility] Bilirubin Urine Negative NEG [facility] Ketones Urine Negative NEG mg/dL [facility] Specific [place] 1.025 1.003 - [place] Urine 1.035 [facility] Blood Urine Large (A) NEG [facility] pH Urine 5.5 5.0 - 7.0 [place] pH [facility] Protein Albumin 100 (A) NEG mg/dL [place] Urine [facility] Urobilinogen 0.2 0.2 - 1.0 [place] Urine EU/dL [facility] Nitrite Urine Positive (A) NEG [facility] Leukocyte Moderate (A) NEG [place] Esterase Urine [facility] Source Midstream [place] Urine [facility] Specimen Anatomical Collection Method Collection Time Receive d Time (Source) Location / / Volume Laterality 07/11/2006 2:27 PM 7 2:29 VIDEO EDITING INTERN PM VIDEO EDITING INTERN Meg Solorio MD LABORATORY Performing Organization Address City/State/[facility] Code Phon e Number [facility] [address] [place] [address] [facility] documented in this encounter Visit Diagnoses Diagnosis Urinary tract infection, site not specif ied - Primary Unspecified constipation documented in this encounter Care Teams Neonatal Icu Coordinator Relationship Specialty Start Date End Date Félix Arteaga MD PCP - General 06/25/05 08/29/14 [facility] [address] [place] [address] documented as of this encounter
--- OUTSIDE RECORDS SUMMARY | 2022-02-09 01:05 | XMS_ITS | Encounter Summary ---
:1975 Author Organization [place] Address [address] [place] [address] Care Team Providers Name Role Phone Félix Arteaga MD Primary Care Provider + Encounter Details Date Type Department Care Team Description 06/20/2006 Historic Results [facility] Estelle Solis MD [facility] ED-[place] CONSULT [address] [facility] [address] [place] [address] (Wo rk) Social History Tobacco Use Types Packs/Day Years Used Date Never Smoker Alcohol Use Standard Drinks/Week Comments Not Asked 0 (1 standard drink = 0.6 oz pure alcoho l) Sex Assigned at Date Recorded Not on file documented as of this encounter Plan of Treatment Not on filedocumented as of this encounter Procedures Procedure Name Priority Date/Time Associated Diagnosis Comme nts MAGNESIUM Timed 06/20/2006 3:50 PM Results f or this ENERGY INFRASTRUCTURE ENGINEER procedure are i n the results section . documented in this encounter Results (ABNORMAL) Magnesium (06/20/2006 3:50 PM ENERGY INFRASTRUCTURE ENGINEER) athologist Signature Magnesium 4.1 (HH) 1.6 - 2.3 MIS[place] mg/dL Comment: Critical Value called to and read back shantel [place]) ON [id number] @ 1633 BY Specimen Anatomical Collection Method Collection Time Receive d Time (Source) Location / / Volume Laterality 06/20/2006 3:50 PM 7 4:00 ENERGY INFRASTRUCTURE ENGINEER PM ENERGY INFRASTRUCTURE ENGINEER Kendra Solis MD LAB - BLOOD ORDERABLES Performing Organization Address City/State/ZIP Code Phon e Number [place] documented in this encounter Visit Diagnoses Not on filedocumented in this encounter Care Teams Plasterer Spot Relationship Specialty Start Date End Date Félix Arteaga MD PCP - General 06/25/05 08/29/14 [facility] [address] [place] [address] documented as of this encounter
--- OUTSIDE RECORDS SUMMARY | 2022-02-09 01:05 | XMS_ITS | Encounter Summary ---
:1975 Author Organization [place] Address [address] [place] [address] Care Team Providers Name Role Phone Félix Arteaga MD Primary Care Provider + Encounter Details Date Type Department Care Team Description 11/13/2004 Historic Results INTERFACED REPORT Harriet Elizondo XXX NO INFO FOUN D XXX [address] [place], [place] [address] (Wo rk) Social History Tobacco Use Types Packs/Day Years Used Date Never Assessed Sex Assigned at Date Recorded Not on file documented as of this encounter Plan of Treatment Not on filedocumented as of this encounter Procedures Procedure Name Priority Date/Time Associated Diagnosis Comme nts FIRST TRIMESTER Routine 11/13/2004 10:20 AM Resul ts for this SCREEN BIOCHEM CDT procedure are in MARKERS the results section. documented in this encounter Results First trimester scrn chrom 7 18 (11/13/2004 10:20 AM CDT) P athologist Signature First Trimester (Note) MISYS Screen Biochem Markers Comment: Patient Information: Name ?:COURTNEY HANSEN Date of ?? :[birth year] ?(Age at EDC:29) Mat. Weight ? :152 Ethinicity ?:Not Given Prev Child Hx ?? :None Report Date ? :11/15/04 Mult Preg. ?:No NT (mm) ? :1.5 CRL ??(MM) ? :77.0 U/S Date ?:11/13/04 GA @ U/S ?:13w3d(CRL) Draw Date ? :11/13/04 GA @ Draw ? :13w3d RESULT: Free Beta hCG (MOM) ?:2.30 ? Percentiles:95 PAAP-A (MOM) ? :1.48 ? Percentiles:70 Nuchal Transl. (Delta) :-0.27 RISK TABLE DOWN SYNDROME - ?1st Trimester Cut-off ?:1 i n 262 ?Before Screening ? :1 in 550 ?After Screening ?: 1 in 2,547 ?RESULTS ?:WITHIN RANGE TRISOMY 18 - ?1st Trimester Cut-off ?:1 i n 150 ?Before Screening ? :1 in 1,399 ?After Screening ?: 1 in >10,000 ?RESULTS ?:WITHIN RANGE Signed Out: Stephen Copeland, PhD., Lab Di carey CAUTION: These results do not eliminate the possibility that this may be associated with d efects (including Down Syndrome and Trisomy 18) or other compli cations. Down syndrome and Trisomy 18 screening is investigational. Assayed at: [employer], [address] ? [place], [place] ??[address] Specimen Anatomical Collection Method Collection Time Receive d Time (Source) Location / / Volume Laterality 11/13/2004 10:20 11/13/2004 AM CDT 10:16 AM CDT Rachael Elizondo LAB - BLOOD ORDERABLES Performing Organization Address City/State/ZIP Code Phon e Number [place] documented in this encounter Visit Diagnoses Not on filedocumented in this encounter Care Teams Duplex Trimmer Relationship Specialty Start Date End Date Félix Arteaga MD PCP - General 06/25/05 08/29/14 [facility] [address] [place] [address] documented as of this encounter
--- OUTSIDE RECORDS SUMMARY | 2022-02-09 01:05 | XMS_ITS | Encounter Summary ---
:1975 Author Organization [place] Address [address] [place] [address] Care Team Providers Name Role Phone Félix Arteaga MD Primary Care Provider + Encounter Details Date Type Department Care Team Description 07/02/2006 Historic Notes INTERFACED REPORT Interface, Transcript on, Social History Tobacco Use Types Packs/Day Years Used Date Never Smoker Alcohol Use Standard Drinks/Week Comments Not Asked 0 (1 standard drink = 0.6 oz pure alcoho l) Sex Assigned at Date Recorded Not on file documented as of this encounter Progress Notes Interface, Sales Training Coordinator - 07/23/2010 7:31 PM CDT General Information General Information <R> How to be addressed - Pema <R> Developmental Electronics Assembler Needed - No Patient Contact Information <R> automotive parts counterperson to notify: - Earl Aguillon <R> Phone 1: - [phone] Cell Phone: - [phone] Advance Directive Advanced Health Care Directive Information <R> Do you have a Advance Health Care Directive? - No Can patient name a Surrogate Decision Maker? (Not legally binding) - Yes Surrogate Name: - Hernandez Aguillon Surrogate Home Phone Number: - [phone] <R> Would you like to receive information about Advanced Directives? - Yes. AD booklet given Valuables Valuables Valuables - Yes Type of Valuables - Ring(s); Shirt; Pants Disposition of Valuables - purse sent home with Health and Illness History Health and Illness History <R> Reason for admission/chief complaint as stated by patient - dehydration and syncope Expected length of hospitalization - Unsure Previous reaction to anesthesia Previous reaction to anesthesia - No Prosthetic Implants Prosthetic Implants - None Vascular Access Device Does the patient have a VAD (Vascular Access Device)? - No Allergies Allergy - No Known Allergies; Active General Medication Information General Medication Information Medications brought to hospital - None Substance Use Tobacco Use <R> Tobacco Use - None Caffeine Use <R> Caffeine Use - Yes Caffeine Type - Pop/soda Caffeine Amount - 5 cans a day Alcohol Use <R> History of Alcohol Use - No Street/Recreational Drug Use <R> History of Street/Recreational Drug Use - No Transfusion History Transfusion History Previous blood transfusion - No Review of Systems Cardiac Cardiac Problems - No Pulmonary Pulmonary Problems - No Peripheral Vascular Peripheral Vascular Problems - No Neuro-Muscular Neuro Muscular Problems - No ENT ENT Problems - No GI GI Problems - No Bowel Pattern Date of last bowel movement - Date of last BM, 07/02/06 Bowel Program Bowel Program - No Problems - No Bladder Program Bladder Program - No Skin Skin Problems - No Immune <R> Immune Problems - No <R> Immunizations Current - Immunizations current Endocrine <R> Endocrine Problems - No Mental Health <R> Mental Health Problems - No Cognitive Perceptual General Pain Information Preferred Pain Scale - Numerical 0-10 Expression of Pain - Verbalization Chronic Pain History of Chronic Pain - No Sensory Deficits/Cognition <R> Alterations in Sensation - No <R> Vision Problems - No <R> Hearing Problems - No <R> Use of Sensory Assistive Devices - No <R> Reading Problems - No <R> Communication Problems - No <R> Changes in thought Process/Behavior - No Activity-Exercise/Self Care Functional Screen <R> Ambulation - 0 - Independent with ambulation <R> Transferring - 0 - Independent with transfers <R> Toileting - 0- Independent with toileting <R> Bathing - 0- Independent with bathing <R> Dressing - 0- Independent with dressing <R> Eating - 0- Independent with eating <R> Swallowing - no problems <R> Fall history within last six months - No history of falls <R> Which of the above functional risks had a recent onset or change? - None Home Equipment Equipment Used at Home - No Nutrition/Metabolic Diet Information Diet - General diet Describe appetite - Good Nutrition Risk Screen <R> Nutrition Risk Screen - No identified problem Perception of nutritional health - Good Sleep/Relaxation Sleep Pattern <R> Problems Sleeping - No Role Relationships Abuse Risk Screen <R> QUESTION TO PATIENT: Are you now or have you ever been in a relationship where you have been abused physically, emotionally or sexually? - No <R> NURSE OBSERVATION: Is there reasonable cause to believe the patient has been abused, assaulted, is self abusive, neglected or exploited? - No Coping-Stress Tolerance Coping-Stress <R> Have you had a recent major change/significant loss/stressor in your life - No Values/Beliefs/Spiritual Care Values/Beliefs/Spiritual Care <R> Would you like pastoral care/clergy/agronomy advisor notified? - Does not wish to have anyone contacted Mutuality/Individual Preferences Mutuality/Preferences <R> What information would help us give you more personalized care? - none <R> What if any limitations on visitors, TV or phone calls would you like - None Enrique Rojas (RN) Author: - General Information, Advance Directive, Valuables, Health and Illness History, Allergies,General Medication Information, Substance Use, Transfusion History, Review of Systems, Cognitive Perceptual, Activity-Exercise/Self Care, Nutrition/Metabolic, Sleep/Relaxation, Role Relationships, Coping-Stress Tolerance, Values/Beliefs/Spiritual Care, Mutuality/Individual Preferences Entered: - General Information, Advance Directive, Valuables, Health and Illness History, Allergies, General Medication Information, Substance Use, Transfusion History, Review of Systems, Cognitive Perceptual, Activity- Exercise/Self Care, Nutrition/Metabolic, Sleep/Relaxation, Role Relationships, Coping-Stress Tolerance, Values/Beliefs/Spiritual Care, Mutuality/Individual Preferences documented in this encounter Plan of Treatment Not on filedocumented as of this encounter Visit Diagnoses Not on filedocumented in this encounter Care Teams Hourly Shift Manager Relationship Specialty Start Date End Date Félix Arteaga MD PCP - General 06/25/05 08/29/14 [facility] [address] [place] [address] documented as of this encounter
--- OUTSIDE RECORDS SUMMARY | 2022-02-09 01:05 | XMS_ITS | Encounter Summary ---
:1975 Author Organization [place] Address [address] [place] [address] Care Team Providers Name Role Phone Félix Arteaga MD Primary Care Provider + Reason for Visit Reason Comments Pharyngitis st x 1 day, Encounter Details Date Type Department Care Team Description 03/18/2006 Office Visit [facility] Félix Arteaga CUTLong URI NOS (Primary Dx); [facility] [place] Redd Baxter MD ACUTE PHARYNGITIS [address] [place], [place] [address] [address] [phone] [place], [place] [address] (Wo rk) Social History Tobacco Use Types Packs/Day Years Used Date Never Smoker Alcohol Use Standard Drinks/Week Comments Not Asked 0 (1 standard drink = 0.6 oz pure alcoho l) Sex Assigned at Date Recorded Not on file documented as of this encounter Last Filed Vital Signs Vital Sign Reading Time Taken Comments Blood Pressure 112/60 03/18/2006 2:00 PM DISPLAY DESIGNER OUTSIDE Pulse - - Temperature 36.8 ??C (98.2 ??F) 03/18/2006 2:00 PM DISPLAY DESIGNER OUTSIDE Respiratory Rate - - Oxygen Saturation - - Inhaled Oxygen Concentration - - Weight 78 kg (172 lb) 03/18/2006 2:00 PM DISPLAY DESIGNER OUTSIDE Height 163.8 cm (5' 4.5) 03/18/2006 2:00 PM DISPLAY DESIGNER OUTSIDE Body Mass Index 29.07 03/18/2006 2:00 PM DISPLAY DESIGNER OUTSIDE documented in this encounter Progress Notes Félix Arteaga - 03/18/2006 2:26 PM CST SUBJECTIVE: Alyssa Aguillon is a 30 year old female who is here today with CC:Sore Throat, hoarseness and symptoms of no fever, chills and headache. Serious symptoms include none applicable. Onset of symptoms was 1 day ago. Course of illness is worsening.none applicable exposures. Treatment measures tried include tylenol. She has not tried any other treatment because she is . Past Medical History Diagnosis Date ??? STREP SORE THROAT required hospitalization 1 yr ago Current outpatient prescriptions Medication Sig ??? TYLENOL OR 2 TABLETS EVERY 4 HOURS NEEDED ??? SUDAFED OR 2 TABLETS EVERY 4 TO 6 HOURS NEEDED No Known Allergies. ROS: Remainder of ROS negative except as mentioned in HPI. OBJECTIVE: BP 112/60 Temp (Src) 98.2 (Oral) Ht 5' 4.5 (1.64m) Wt 172 lbs (78.0kg) LMP OB (05/18/05) GENERAL: healthy, alert, no distress and cooperative EYES:Lids and Conjunctival normal EAR: CANAL and Left TM is normal: no effusions, no erythema, and normal landmarks, CANAL and Right TM is normal: no effusions, no erythema, and normal landmarks. NOSE: clear rhinorrhea, mucosal erythema and mucosal edema OROPHARYNX:mild erythema, no tonsillar hypertrophy, no exudates present and post nasal drainage. NECK: normal, supple and small, benign anterior cervical nodes bilaterally LUNGS:normal HEART :regular rate and rhythm and no murmurs, clicks, or gallops STREP GROUP A AG (RAPID): negative. ASSESSMENT / PLAN: 465.9 ACUTE URI NOS (primary encounter diagnosis) Note: sore throat and hoarseness for one day Plan: Patient may continue using Tylenol as needed for pain, and should use OTC decongestant such asSudafed for nasal congestion relief. This should reduce her post-nasal drainage and should help reduce her sore throat symptoms. 462 ACUTE PHARYNGITIS Note: secondary to post-nasal drainage Plan: MAGIC MOUTHWASH (1% lidocaine, benadryl, and carafate 1:1:1) - as directed for sore throat symptom relief. Should also use OTC decongestant to help relieve her nasal congestion and post-nasal drainage. GRACE Hernandez/ Félix Arteaga MD [facility] LAY DESIGNER OUTSIDE documented in this encounter Nursing Notes 03/18/2006 2:00 PM CST >> MINISTERIO PERRY 03/18/2006 2:17 pm Patient presents with: Pharyngitis - st x 1 day, Intial BP 112/60 Temp (Src) 98.2 (Oral) Ht 5' 4.5 (1.64m) Wt 172 lbs (78.0kg) LMP OB (05/18/05) Body mass index is 29.08 kg/(m^2).. BP completed using cuff size large Ministerio Perry RN documented in this encounter Plan of Treatment Not on filedocumented as of this encounter Procedures Procedure Name Priority Date/Time Associated Diagnosis Comme nts HCL BETA STREP Routine 03/18/2006 2:17 PM Acute Pharyngitis Re sults for this CONFIRM DISPLAY DESIGNER OUTSIDE procedure are i n the results section. HCL STREP GROUP A Routine 03/18/2006 2:17 PM Acute Pharyngitis Results for this AG (RAPID) DISPLAY DESIGNER OUTSIDE procedure are i n the results section. documented in this encounter Results BETA STREP CONFIRM (03/18/2006 2:17 PM DISPLAY DESIGNER OUTSIDE) Component Value Ref Test Analysis Performed At [facility] [employer] Range Method Time Signature Specimen Throat [facility] Culture Micro No Beta [place] Streptococcus [facility] LAB Report status FINAL [id number] [facility] Specimen Anatomical Collection Method Collection Time Receive d Time (Source) Location / / Volume Laterality 03/18/2006 2:17 PM 6 2:22 DISPLAY DESIGNER OUTSIDE PM DISPLAY DESIGNER OUTSIDE Félix Arteaga MD LABORATORY Performing Organization Address City/State/ZIP Code Phon e Number [facility] [address] [place] [address] [facility] STREP GROUP A AG (RAPID) (03/18/2006 2:17 PM DISPLAY DESIGNER OUTSIDE) Component Value Ref Test Analysis Performed At [facility] [employer] Range Method Time Signature Specimen Throat [place] Description [facility] Rapid Strep A NEGATIVE: No Group A strepto coccal antigen detected by immunoassay, await [place] Screen culture report. [facility] Report status FINAL [id number] [facility] Specimen Anatomical Collection Method Collection Time Receive d Time (Source) Location / / Volume Laterality 03/18/2006 2:17 PM 6 2:22 DISPLAY DESIGNER OUTSIDE PM DISPLAY DESIGNER OUTSIDE Félix Arteaga MD LABORATORY Performing Organization Address City/State/ZIP Code Phon e Number [facility] [address] [place] [address] [facility] documented in this encounter Visit Diagnoses Diagnosis Acute upper respiratory infections of un specified site - Primary Acute pharyngitis documented in this encounter Care Teams Ct Scan Technologist Relationship Specialty Start Date End Date Félix Arteaga MD PCP - General 06/25/05 08/29/14 [facility] [address] [place] [address] documented as of this encounter
--- OUTSIDE RECORDS SUMMARY | 2022-02-09 01:05 | XMS_ITS | Encounter Summary ---
:1975 Author Organization [place] Address [address] [facility] [place] [address] Care Team Providers Name Role Phone Félix Arteaga MD Primary Care Provider + Encounter Details Date Type Department Care Team Description 11/13/2004 Historic Administrative Assistant Office Manager INTERFACED REPORT Kristine Forbes ret, [address] [place], [place] [address] Social History Tobacco Use Types Packs/Day Years Used Date Never Assessed Sex Assigned at Date Recorded Not on file documented as of this encounter Progress Notes Asha Forbes GC - 04/10/2011 2:21 AM SEAFOOD PACKER November 28, 2004 Rachael Elizondo, N.P. Re: Alyssa Craven MR [id number] 1975 Dear Ms. Elizondo: This letter will summarize my discussion that took place with your patient, Alyssa Craevn, on November 13, 2004. All couples face the risk of about 3 percent to 5 percent of having a baby with a defect or other significant condition. As you know, there is no way available to test for every possible medical or developmental condition during a . However, Alyssa came to our clinic because she was interested in pursuing first trimester screening. We talked about that the first trimester screen is a test that allows us to obtain more information about the risk of Down syndrome and trisomy 18 in her . During our session, we briefly reviewed the concepts of genes, chromosomes, and the mistake in division that results in chromosome abnormalities. We talked about one of the most common chromosome abnormalities is Down syndrome, where there are three copies of chromosome #21. We reviewed that children with Down syndrome have a characteristic facial appearance, mental retardation of varying degrees, a 40 percent chance for heart defect, and can have other health concerns. We also talked about that trisomy 18 is a condition in which a baby has inherited and extra chromosome #18. We talked about that babies with trisomy 18 often have many physical and developmental concerns, and often before or shortly after . We talked about that both of these chromosome conditions are generally not hereditary; they are usually caused by chance. However, the likelihood of these chromosome problems does increase with a woman's age. We then went on to talk about first trimester screening. We talked about that the first part of this test involves the measurement of fluid at the back of the baby's neck (called nuchal translucency). We talked about that babies who have an increased nuchal translucency are thought to be at increased risk for having a chromosome problem. In addition, increased nuchal translucency has been associated with an increased risk for heart defects and other rare genetic conditions. We talked about that the second part of the first trimester screen involves the measurement of two different chemicals within the maternal blood stream (DARY-A and HCG). We talked about that the first trimester screen then combines a woman's age, the nuchal translucency measurement, and the level of these two chemicals, to provide a risk estimate for the chance of Down syndrome and trisomy 18 in her . Reviewed that this test is a screening test, which means it cannot definitively tell us for sure whether or not a baby has one of these problems. However, some people find the additional information about the chance of these conditions helpful when trying to make decisions about what type of testing might be appropriate during her . The first trimester screen does not screen for neural tube defects, such as spina bifida. We talked about that if individuals are interested in pursuing more information about the chance of a neural tube defect in the , they could consider pursuing measurement of AFP levels in the maternal blood stream at around 15 to 18 weeks of . We also briefly talked about the options that would be available should Alyssa's first trimester screening come back at increased risk. We talked about that typically level II ultrasound is offered between 18 and 20 weeks of , at which time it is usually possible to visualize many of the baby's organs, in addition to the placenta and umbilical cord. Chromosome abnormalities cannot be definitively diagnosed with ultrasound; however, sometimes soft signs can be seen on ultrasound that make us more suspicious of a chromosome abnormality. Approximately 50 percent to 60 percent of babies with Down syndrome have unusual findings on level II ultrasound, while the vast majority of babies with trisomy 18 (approximately 80 percent or so) will have something unusual on a level II ultrasound. In addition, we talked about that some individuals at increased risk for Down syndrome or trisomy 18 in the first trimester screen may consider pursuing amniocentesis. We talked about that amniocentesis is a way of diagnosing these types of chromosome abnormalities prenatally, with an accuracy of approximately 99.4 percent. However, there is a 0.5 percent risk of miscarriage associated with amniocentesis. Following this discussion, Alyssa decided to proceed with first trimester screening. Please see the perinatologist's report for more details regarding her ultrasound examination. After this ultrasound, the patient had her blood drawn to complete the first trimester screen. As you know, Alyssa's first trimester screening came back in the normal range, thereby predicting that this is at a low risk for Down syndrome or trisomy 18. A copy of these test results have been previously faxed to your office. On review of Alyssa's family history, Alyssa's partner reports that he is color blind. He also reports other individuals affected in the family with color blindness including his father, some paternal uncles and his maternal grandfather. We talked about this pattern of inheritance is not the typical pattern seen for most types of color blindness. We talked about that this history would be important to keep in mind as his children are growing and developing. Alyssa's partner also reports a history of a maternal cousin with mental retardation. Alyssa reports a history of a heart defect in one of her sister's children. She also reports a history of bees apraxia in one of her sons and a history of autism and ADD in another one of her sons. She also reports a history of heart defects on her father's side of the family including a father's sibling and a paternal cousin. We talked about that the risk of congenital heart defects and the risk for learning disabilities and autism are thought to have some genetic components, but at this time these exact genetic components are not well known in most cases. Both Alyssa and her partner are of ancestry. We briefly talked about that cystic fibrosis is a genetic condition that occurs with increased frequency in individuals of ancestry. Cystic fibrosis is a life-shortening disease in which mucous secretions are too thick, which causes lung and digestive concerns. It affects approximately 1 in 2500 babies of northern ancestry. Cystic fibrosis is a type of genetic condition in which both parents must generally be a carrier in order for the child to be at increased risk. There is carrier testing available for individuals who want to find out more about the chance that they may be a carrier of cystic fibrosis. On review of Alyssa's history, she reports taking an occasional Tylenol during this for headaches. She also reports a history of a LEEP done in the early part of this year because of cervical dysplasia. She reports no problems with her previous except for a history of toxemia at the end of one of her pregnancies. Thank you for the opportunity to meet with Alyssa. Please do not hesitate to contact me if you or Alyssa or her partner have any further questions or concerns ([phone]). I wish them all the best in the future. Sincerely, Tatiana Forbes M.S., C.G.C. Genetic Counselor [place]/[id number] ASHA FORBES CGC 191:1 MT: ?? Document: [id number] CC: ASHA FORBES CGC Alyssa Craven, OOD PACKER documented in this encounter Plan of Treatment Not on filedocumented as of this encounter Visit Diagnoses Not on filedocumented in this encounter Care Teams Engine Oiler Relationship Specialty Start Date End Date Félix Arteaga MD PCP - General 06/25/05 08/29/14 [facility] [address] [place] [address] documented as of this encounter
--- OUTSIDE RECORDS SUMMARY | 2022-02-09 01:05 | XMS_ITS | Encounter Summary ---
:1975 Author Organization [place] Address [address] [place] [address] Care Team Providers Name Role Phone Unavailable Primary Care Provider Unavailable Encounter Details Date Type Department Care Team Description 05/14/2005 Delivery Summary Petra Denis MD (Annual Greenhouse Manager) [facility] [address] [place], [place] [address] (Wo rk) Social History Tobacco Use Types Packs/Day Years Used Date Never Smoker Alcohol Use Standard Drinks/Week Comments Not Asked 0 (1 standard drink = 0.6 oz pure alcoho l) Sex Assigned at Date Recorded Not on file documented as of this encounter Progress Notes Petra Denis - 05/14/2005 11:59 PM CLIENT SERVICES ANALYST PRELIMINARY PATIENT IDENTIFICATION: Courtney Hansen is a 29-year-old 6 para 5-0-0-5 female admitted toLabor and Delivery at 39 + 3 weeks' gestational age for elective induction of labor due to history of grand multiparity and fast labors. Her last labor was in the middle of the night unattended by a physician. The plan was for prostaglandin suppositories during the day to facilitate a daytime delivery. The patient's has otherwise been complicated by a need for repeat colposcopy at 20 weeks due to a history of a on a LEEP performed in 07/2004. The colposcopy impression was normal. FIRST STAGE: The patient was admitted to Labor and delivery in the morning of 05/14/2004. Her cervixwas 1 thick and -3. She received prostaglandin suppositories x3 and this was followed by Pitocin cayetanorotocol. She received an epidural for labor analgesia and had good relief of her pain at approximately 1710 hours. Pitocin was initiated at 1915 hours with a maximum rate of 8 milliunits. When the patient was into active labor around 2145 hours, she was 4 cm dilated and 70% effaced. She had a gush ofblood, which was spontaneous rupture of membranes. At that time, Pitocin was discontinued and scalp electrode and intrauterine pressure catheter were placed by the RN to better assess labor. The patient then progressed to complete dilatation at 0110 a.m. SECOND STAGE: The patient went on to precipitously deliver at 0127 hours, attended by the RN. The time of delivery was 0127 hours, Apgars were 8 and 9 at 1 and 5 minutes of life and weight was 8pounds 0 ounces. The infant was a vigorous female. THIRD STAGE: The placenta delivered spontaneously and intact with gentle cord traction by me at 0130 a.m. Uterine tone was excellent. An intravenous Pitocin was administered. The perineum was inspected and there were no lacerations. condition is satisfactory for both mother and . PETRA DENIS MD MT: [place] Name: COURTNEY HANSEN MRN: [id number] Account: [id number] : 1975 Delivery Date: 05/14/2005 Document: [id number] NT SERVICES ANALYST documented in this encounter Plan of Treatment Not on filedocumented as of this encounter Visit Diagnoses Not on filedocumented in this encounter
--- OUTSIDE RECORDS SUMMARY | 2022-02-09 01:05 | XMS_ITS | Encounter Summary ---
:1975 Author Organization [place] Address [address] [facility] [place] [address] Care Team Providers Name Role Phone Félix Arteaga MD Primary Care Provider + Reason for Visit Reason Comments URI uri symptoms x1 day, c/o sin us pain/pressure Encounter Details Date Type Department Care Team Description 06/25/2005 Office Visit [facility] Félix Arteaga CUTE SINUSITIS NOS Clinic [place] Red[facility] Baxter MD (Primary Dx) [address] [place], [place] [address] [address] [phone] [place], [place] [address] (Wo rk) Social History Tobacco Use Types Packs/Day Years Used Date Never Smoker Alcohol Use Standard Drinks/Week Comments Not Asked 0 (1 standard drink = 0.6 oz pure alcoho l) Sex Assigned at Date Recorded Not on file documented as of this encounter Last Filed Vital Signs Vital Sign Reading Time Taken Comments Blood Pressure 130/82 06/25/2005 10:00 AM STONEHAND Pulse 80 06/25/2005 10:00 AM STONEHAND Temperature 36.6 ??C (97.8 ??F) 06/25/2005 10:00 AM STONEHAND Respiratory Rate 16 06/25/2005 10:00 AM STONEHAND Oxygen Saturation - - Inhaled Oxygen Concentration - - Weight - - Height - - Body Mass Index - - documented in this encounter Progress Notes Félix Arteaga - 06/25/2005 10:24 AM CST SUBJECTIVE: Alyssa Craven is a 29 year old female who is here today with: CC:Sore Throat, Cough, Cold and headache and symptoms of no fever and no chills. Serious symptoms include none applicable. Onset of symptoms was 2 days ago. Course of illness is same. No applicable exposures. Treatment measures tried include fluids, OTC meds and rest. She has been under much stress due to needing to leave for [place] for a hospice visit and her child being sick for the last week. All Medications, Allergies and Histories reviewed and current as of todays visit. OBJECTIVE: BP 130/82 Pulse 80 Temp (Src) 97.8 (Oral) Resp 16 LMP OB (05/18/05) GENERAL: healthy, alert, no distress and cooperative HEAD: maxillary and frontal sinus tenderness EYES:Lids and Conjunctival normal EAR: CANAL and Left TM is normal: no effusions, no erythema, and normal landmarks, CANAL and Right TM is normal: no effusions, no erythema, and normal landmarks. NOSE: clear rhinorrhea, mucosal erythema and mucosal edema OROPHARYNX:mild erythema, no tonsillar hypertrophy and post nasal drainage. NECK: normal, supple and no adenopathy LUNGS:normal HEART :regular rate and rhythm and no murmurs, clicks, or gallops ASSESSMENT/PLAN: 461.9 ACUTE SINUSITIS NOS (primary encounter diagnosis) Plan: ZITHROMAX Z-ALBA 250 MG OR CAPS as directed and Sudafed q 12hours and saline nasal spray Q4 hours for congestion. May use tylenol/motrin prn, steam and warm paks to face, in addition. Félix Arteaga MD [facility] EHAND documented in this encounter Nursing Notes 06/25/2005 10:00 AM CST >> ROMELIA AWAN 06/25/2005 10:22 am Patient presents with: URI - uri symptoms x1 day, c/o sinus pain/pressure Initial BP 130/82 Pulse 80 Temp (Src) 97.8 (Oral) Resp 16 LMP OB (05/18/05) Estimated Body mass index is 27.22 kg/(m^2) as calculated from: Height of 5' 4.5 (1.638 m) as of 01/01/05 Weight of 161 lbs (73.029 kg) as of 01/01/05. BP completed using cuff size regular Romelia Aawn/ELEN documented in this encounter Plan of Treatment Not on filedocumented as of this encounter Visit Diagnoses Diagnosis Acute sinusitis, unspecified - Primary documented in this encounter Care Teams Coal Briquette Machine Operator Relationship Specialty Start Date End Date Félix Arteaga MD PCP - General 06/25/05 08/29/14 [facility] [address] [place] [address] documented as of this encounter
--- OUTSIDE RECORDS SUMMARY | 2022-02-09 01:05 | XMS_ITS | Encounter Summary ---
:1975 Author Organization [place] Address [address] [place] [address] Care Team Providers Name Role Phone Félix Arteaga MD Primary Care Provider + Encounter Details Date Type Department Care Team Description 06/21/2006 Historic Results [facility] Estelle Solis MD [facility] [place] CONSULT [address] [facility] [address] [place] [address] (Wo rk) Social History [...] Date/Time Associated Diagnosis Comme nts HEMOGLOBIN Routine 06/21/2006 6:52 AM Results f or this EMBALMER/FUNERAL DIRECTOR procedure are i n the results section . documented in this encounter Results (ABNORMAL) Hemoglobin (06/21/2006 6:52 AM EMBALMER/FUNERAL DIRECTOR) P athologist Signature Hemoglobin 10.0 (L) 11.7 - 15.7 MISYS g/dL Specimen Anatomical Collection Method Collection Time Receive d Time (Source) Location / / Volume Laterality 06/21/2006 6:52 AM 7 7:00 EMBALMER/FUNERAL DIRECTOR PM EMBALMER/FUNERAL DIRECTOR Kendra Solis MD LAB - BLOOD ORDERABLES Performing Organization Address City/State/ZIP Code Phon e Number [place] documented in this encounter Visit Diagnoses Not on filedocumented in this encounter Care Teams Staff Services Manager Relationship Specialty Start Date End Date Félix Arteaga MD PCP - General 06/25/05 08/29/14 [facility] [address] [place] [address] documented as of this encounter
--- OUTSIDE RECORDS SUMMARY | 2022-02-09 01:05 | XMS_ITS | Encounter Summary ---
:1975 Author Organization [facility] Address [address] [place] [address] Care Team Providers Name Role Phone Félix Arteaga MD Primary Care Provider + Encounter Details Date Type Department Care Team Description 07/02/2006 Admission [facility] Félix Arteaga (Machine Molder Squeeze) [facility] [place] [address] [facility] [address] [address] [phone] [place] [address] [place], [place] [address] (Wo rk) Social History Tobacco Use Types Packs/Day Years Used Date Never Smoker Alcohol Use Standard Drinks/Week Comments Not Asked 0 (1 standard drink = 0.6 oz pure alcoho l) Sex Assigned at Date Recorded Not on file documented as of this encounter Progress Notes Félix Arteaga - 07/07/2006 8:51 PM ROSS FURNACE OPERATOR FINAL CHIEF COMPLAINT: Dizziness. HISTORY OF PRESENT ILLNESS: Ms. Lizama is a 30-year-old female who is status post vaginal deliveryon 06/20/06 after having induced vaginal delivery for preeclampsia. The patient was placed on magnesium for her pre-eclampsia. She was discharged after her vaginal delivery within 2 days. But since 4 a.m. this morning, patient had 6 episodes of vomiting and 10 episodes of diarrhea. She has had a decreased appetite and decreased fluid intake since her vaginal delivery. She has had some vaginal bleedingon and off with the worst 2 days ago, but has become better. Today she felt weak, dizzy and she had a syncopal event before she was revised by her . She has felt dyspneic as well. She denies fevers but has chills. She has been having some abdominal cramping, diffusely. The patient is currently not breast feeding. She denies any accidents, trauma or head injuries. The patient has had no episodes of seizure activity. The patient was brought to the Emergency Department by her where she received 3 l of IV fluids. She had a workup which included evaluation for PE which was negative. She was found to have severe dehydration and an elevated white blood cell count, which was believed to be due to her vomiting and dehydration. PAST MEDICAL HISTORY: Seven vaginal deliveries with the most recent, 06/20/06. PAST SURGICAL HISTORY: History of LEEP. She had a vaginal cyst removed in 2005. MEDICATIONS: Zantac as needed. ALLERGIES: No known drug allergies. 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 She has 7 children. She is . FAMILY HISTORY: Noncontributory. REVIEW OF SYSTEMS: GENERAL: Patient has had no fevers, but she has had chills. She has had nausea and vomiting. CARDIOVASCULAR: Patient denies any chest pain. No history of hypertension or murmurs. She has felt dyspneic. RESPIRATORY: Patient has had no cough. No history of asthma. She does not smoke. GASTROINTESTINAL: Patient has had some diarrhea and vomiting today. She also complains of abdominal cramping. GENITOURINARY: Patient denies any UTI symptoms. HEMATOLOGIC: No easy bleeding or bruising, though she is currently having vaginal bleeding after her delivery. SKIN: Normal skin lesions. ENDOCRINE: No history of diabetes or thyroid condition. MUSCULOSKELETAL: No arthralgias or myalgias. NEUROLOGIC: Patient had a syncopal episode today, but no history of seizures. PSYCH: Patient has had no depression or anxiety. The rest of Review of systems is negative. OBJECTIVE: GENERAL: The patient is alert and oriented, appears to be in no distress. She is laying in bed comfortably. VITAL SIGNS: Temperature 97.7, pulse 72, respirations 18, blood pressure 116/70. O2 saturations 96% on room air. HEENT: Head is normocephalic. Pupils equal, round and reactive to light. Extraocular muscles are intact. Nose was without nasal drainage. Pharynx was clear, but dry mucous membranes. No erythema. NECK: Supple. Full range of motion. No adenopathy. CHEST: Clear to auscultation bilaterally without wheezes, rhonchi or rales. CARDIOVASCULAR: Regularrate and rhythm. Normal S1, S2. ABDOMEN: Soft with mild diffuse cramping. No masses palpable. No rebounding, no guarding. EXTREMITIES: No cyanosis or edema. Capillary refill about 2 seconds. Pulses are equal throughout. NEUROLOGIC: No focal deficits. Patient moves all extremities. She feels dizzy when moving from laying to sitting position. SKIN: Without any abnormal lesions. LABORATORY DATA: Hemoglobin 15.7, hematocrit 46.1, platelets 444, white blood cell count 20.7, granulocytes 93%, leukocytes 4%, monocytes 2%. Chest x-ray was negative. V/Q scan was negative for PE. Urinalysis was negative. Sodium 145, potassium 3.7, chloride 102, bicarbonate 23, BUN 19, creatinine 1.82, glucose 106, calcium 10.6, ALT 38, AST 54, alkaline phosphatase 166. ASSESSMENT: Ms. Courtney Lizama is a 30-year-old female who is status post vaginal delivery from 2 weeks ago, who presents with acute gastroenteritis with episodes of vomiting and diarrhea. The patient presents dehydrated with fatigue and syncope. She is found to have an elevated white blood cell count, which most likely is marginalization due to vomiting and dehydration. PLAN: Admit the patient for IV rehydration. Will re-assess white blood cell count after fluid hydration. There is no obvious source of infection. The patient will be given medication for nausea and diarrhea, as needed. She will be given pain medications for abdominal cramping, if needed. Expect a 1- to 2 day- hospital stay once the patient is rehydrated, most likely patient can go home. Electronically signed on 07/07/2006 20:51 by FÉLIX ARTEAGA MD MT: [id number] Name: COURTNEY LIZAMA MRN: [id number] Account: [id number] : 1975 Admitted: [id number] Document: [id number] FURNACE OPERATOR documented in this encounter Plan of Treatment Not on filedocumented as of this encounter Visit Diagnoses Not on filedocumented in this encounter Care Teams Plate Mounter Relationship Specialty Start Date End Date Félix Arteaga MD PCP - General 06/25/05 08/29/14 [facility] [address] [place] [id number] documented as of this encounter
--- OUTSIDE RECORDS SUMMARY | 2022-02-09 01:05 | XMS_ITS | Encounter Summary ---
:1975 Author Organization [facility] Address [address] [place] [address] Care Team Providers Name Role Phone Félix Arteaga MD Primary Care Provider + Encounter Details Date Type Department Care Team Description 07/03/2006 Historic Results [facility] Damir Arteaga [facility] [place] [address] [place], [place] [address] [address] [phone] [place] [address] [place], [place] [address] (Wo rk) Social History [...] Name Priority Date/Time Associated Diagnosis Comme nts HEMOGRAM AND Routine 07/03/2006 6:45 AM Results f or this PLATELET BARREL PLANER procedure are i n the results section. BASIC METABOLIC Routine 07/03/2006 6:45 AM Result s for this PANEL BARREL PLANER procedure are i n the results section. documented in this encounter Results (ABNORMAL) Hemogram and platelet (07/03/2006 6:45 AM BARREL PLANER) P athologist Signature MCV 88 78 - 100 fl [facility] MCH 29.7 26.5 - 33.0 [facility] pg MCHC 33.9 32.0 - 36.0 [facility] g/dL RDW 12.3 10.0 - 15.0 [facility] % WBC 5.5 4.0 - 11.0 [facility] 10e9/L RBC Count 3.69 (L) 3.8 - 5.2 [facility] 10e12/L Hemoglobin 11.0 (L) 11.7 - 15.7 [facility] g/dL Comment: Results confirmed by repeat sean t Hematocrit 32.4 (L) 35.0 - 47.0 % [facility] Platelet Count 296 150 - 450 10e9/L [facility] Specimen Anatomical Collection Method Collection Time Receive d Time (Source) Location / / Volume Laterality 07/03/2006 6:45 AM 7 8:19 BARREL PLANER PM BARREL PLANER Félix Arteaga MD LAB - BLOOD ORDERA BLES Performing Organization Address City/State/ZIP Code Phon e Number [facility] (ABNORMAL) Basic metabolic panel (07/03/2006 6:45 AM BARREL PLANER) P athologist Signature Sodium 143 133 - 144 [facility] mmol/L Potassium 3.8 3.4 - 5.3 [facility] mmol/L Chloride 113 (H) 94 - 109 [facility] mmol/L Comment: Reviewed, acceptable Carbon Dioxide 22 20 - 32 mmol/L [facility] Glucose 82 60 - 110 mg/dL [facility] Urea Nitrogen 15 5 - 24 mg/dL [facility] Creatinine 0.89 0.60 - 1.30 mg/dL [facility] GFR Estimate 78 >60 mL/min/1.7m2 [facility] GFR Estimate If Black >90 >60 mL/min/1.7m2 [facility] Calcium 7.8 (L) 8.5 - 10.4 mg/dL [facility] Comment: Reviewed, acceptable Anion Gap 8 6 - 17 mmol/L [facility] Specimen Anatomical Collection Method Collection Time Receive d Time (Source) Location / / Volume Laterality 07/03/2006 6:45 AM 7 8:19 BARREL PLANER PM BARREL PLANER Félix Arteaga MD LAB - BLOOD ORDERA BLES Performing Organization Address City/State/ZIP Code Phon e Number [facility] documented in this encounter Visit Diagnoses Not on filedocumented in this encounter Care Teams Assistant Tennis Coach Relationship Specialty Start Date End Date Félix Arteaga MD PCP - General 06/25/05 08/29/14 [facility] [address] [place] [address] documented as of this encounter
--- OUTSIDE RECORDS SUMMARY | 2022-02-09 01:05 | XMS_ITS | Encounter Summary ---
:1975 Author Organization [place] Address [address] [place] [address] Care Team Providers Name Role Phone Félix Arteaga MD Primary Care Provider + Encounter Details Date Type Department Care Team Description 07/02/2006 Results Only [facility] Loc King MD Hospital Results EMERGENCY PHYSI XIOMY UREÑA [address] [place], [place] [address] (Wo rk) Social History Tobacco Use Types Packs/Day Years Used Date Never Smoker Alcohol Use Standard Drinks/Week Comments Not Asked 0 (1 standard drink = 0.6 oz pure alcoho l) Sex Assigned at Date Recorded Not on file documented as of this encounter Plan of Treatment Not on filedocumented as of this encounter Procedures Procedure Name Priority Date/Time Associated Diagnosis Comme nts HC LUNG PERFUSION Routine 07/02/2006 3:16 PM Resu lts for this SCAN SQL SERVER DBA procedure are i n the results section. HC CHEST TWO VIEWS, Routine 07/02/2006 1:35 PM Re sults for this FRONT/LAT SQL SERVER DBA procedure are i n the results section. documented in this encounter Results LUNG PERFUSION IMAGING (07/02/2006 3:16 PM SQL SERVER DBA) Specimen (Source) Anatomical Collection Method Collection Time Re ceived Time Location / / Volume Laterality 07/02/2006 3:16 PM SQL SERVER DBA Impressions RADIOLOGY RESULTS - 07/02/2006 3:[address] EXAM: ??NM LUNG PERFUSION SCAN HISTORY: ??syncope, ??Eval for PE, TECHNIQUE: 3 mCi Tc MAA. FINDINGS: Negative. No evidence for PE. Loc King MD SPECIAL IMAGING STUDIES Performing Organization Address City/State/ZIP Code Phon e Number RADIOLOGY RESULTS CHEST X-RAY 2 VW (07/02/2006 1:35 PM SQL SERVER DBA) Specimen (Source) Anatomical Collection Method Collection Time Re ceived Time Location / / Volume Laterality 07/02/2006 1:35 PM SQL SERVER DBA Impressions RADIOLOGY RESULTS - 07/02/2006 2:[address] EXAM: ??CHEST TWO VIEW* HISTORY: ??Chest Pain, ?? FINDINGS: Negative. Loc King MD GENERAL IMAGING Performing Organization Address City/[facility] Phon e Number RADIOLOGY RESULTS documented in this encounter Visit Diagnoses Not on filedocumented in this encounter Care Teams Yield Engineer Relationship Specialty Start Date End Date Félix Arteaga MD PCP - General 06/25/05 08/29/14 [facility] [address] [place] [address] documented as of this encounter
--- OUTSIDE RECORDS SUMMARY | 2022-02-09 01:05 | XMS_ITS | Encounter Summary ---
:1975 Author Organization [place] Address [address] [place] [address] Care Team Providers Name Role Phone Félix Arteaga MD Primary Care Provider + Reason for Visit Reason Comments URI uri symptoms x1 week, c/o ST , HUDSON, fatigue Encounter Details Date Type Department Care Team Description 04/16/2006 Office Visit [facility] Félix Arteaga CUTE SINUSITIS NOS (Primary Dx); Clinic [place] Redd Baxter MD ACUTE PHARYNGITIS [address] [place], [place] [address] [address] [phone] [place], [place] [address] (Wo rk) Social History Tobacco Use Types Packs/Day Years Used Date Never Smoker Alcohol Use Standard Drinks/Week Comments Not Asked 0 (1 standard drink = 0.6 oz pure alcoho l) Sex Assigned at Date Recorded Not on file documented as of this encounter Last Filed Vital Signs Vital Sign Reading Time Taken Comments Blood Pressure 120/74 04/16/2006 10:30 AM BALL ASSEMBLER Pulse 80 04/16/2006 10:30 AM BALL ASSEMBLER Temperature 36.5 ??C (97.7 ??F) 04/16/2006 10:30 AM BALL ASSEMBLER Respiratory Rate 16 04/16/2006 10:30 AM BALL ASSEMBLER Oxygen Saturation - - Inhaled Oxygen Concentration - - Weight 78.9 kg (174 lb) 04/16/2006 10:30 AM BALL ASSEMBLER Height - - Body Mass Index 29.41 03/18/2006 2:00 PM BALL ASSEMBLER documented in this encounter Progress Notes Félix Arteaga - 04/16/2006 10:53 AM CST SUBJECTIVE: Alyssa Aguillon is a 30 year old female here with concerns about sinus infection. She is 28 weeks . She states onset of symptoms were 1 week(s) ago. She has had maxillary pressure. Course of illness is worsening. Severity moderate Current and Associated symptoms: nasal congestion, rhinorrhea, cough , sore throat, facial pain/pressure and post-nasal drainage Predisposing factors include recent illness and recent sick contacts. Recent treatment has included:Decongestants and OTC meds Past Medical History Diagnosis Date ??? STREP SORE THROAT required hospitalization 1 yr ago History Substance Use Topics ??? Tobacco Use: Never ??? Alcohol Use: Not on file ROS: Review of systems negative except as stated above. OBJECTIVE: BP 120/74 Pulse 80 Temp (Src) 97.7 (Oral) Resp 16 Wt 174 lbs (78.9kg) LMP OB (05/18/05) GENERAL APPEARANCE: healthy, alert and no distress EYES: EOMI, PERRL, conjunctiva clear HENT: TM's normal bilaterally, nasal turbinates erythematous, swollen, oral mucous membranes moist, no erythema noted and maxillary sinus tenderness NECK: supple, nontender, no lymphadenopathy RESP: lungs clear to auscultation - no rales, rhonchi or wheezes CV: regular rates and rhythm, normal S1 S2, no murmer noted SKIN: no suspicious lesions or rashes STREP GROUP A AG (RAPID): negative ASSESSMENT: Sinusitis PLAN: See orders- Sudafed q 12hours and saline nasal spray Q4 hours for congestion. May use tylenol prn, steam and warm paks to face, in addition. Follow up with clinic if not improving Félix Arteaga MD [facility] ASSEMBLER documented in this encounter Nursing Notes 04/16/2006 10:30 AM CST >> ROMELIA MCPHERSON 04/16/2006 10:31 am Patient presents with: URI - uri symptoms x1 week, c/o ST, HUDSON, fatigue Initial BP 120/74 Pulse 80 Temp (Src) 97.7 (Oral) Resp 16 Wt 174 lbs (78.9kg) LMP OB (05/18/05) Estimated Body mass index is 29.42 kg/(m^2) as calculated from: Height of 5' 4.5 (1.638 m) as of 03/18/06 Weight of 174 lbs (78.926 kg) as of this encounter. BP completed using cuff size regular Romelia Emperatriz/ELEN documented in this encounter Plan of Treatment Not on filedocumented as of this encounter Procedures Procedure Name Priority Date/Time Associated Diagnosis Comme nts HCL BETA STREP Routine 04/16/2006 10:42 AM Acute Pharyngitis R esults for this CONFIRM BALL ASSEMBLER procedure are i n the results section. HCL STREP GROUP A Routine 04/16/2006 10:42 AM Acute Pharyngiti s Results for this AG (RAPID) BALL ASSEMBLER procedure are i n the results section. documented in this encounter Results BETA STREP CONFIRM (04/16/2006 10:42 AM BALL ASSEMBLER) Component Value Ref Test Analysis Performed At [facility] gist Range Method Time Signature Specimen Throat [facility] Culture Micro No Beta [place] Streptococcus [facility] Report status FINAL [id number] [facility] Specimen Anatomical Collection Method Collection Time Receive d Time (Source) Location / / Volume Laterality 04/16/2006 10:42 04/16/2006 AM BALL ASSEMBLER 10:45 AM BALL ASSEMBLER Félix Arteaga MD LABORATORY Performing Organization Address City/State/ZIP Code Phon e Number [facility] [id number] [place] [address] [facility] STREP GROUP A AG (RAPID) (04/16/2006 10:42 AM BALL ASSEMBLER) Component Value Ref Test Analysis Performed At [facility] gist Range Method Time Signature Specimen Throat [facility] Rapid Strep A NEGATIVE: No Group A strepto coccal antigen detected by immunoassay, await [place] Screen culture report. [facility] LAB Report status FINAL [id number] [facility] Specimen Anatomical Collection Method Collection Time Receive d Time (Source) Location / / Volume Laterality 04/16/2006 10:42 04/16/2006 AM BALL ASSEMBLER 10:45 AM BALL ASSEMBLER Félix Arteaga MD LABORATORY Performing Organization Address City/State/ZIP Code Phon e Number [facility] [address] [place] [address] [facility] documented in this encounter Visit Diagnoses Diagnosis Acute sinusitis, unspecified - Primary Acute pharyngitis documented in this encounter Care Teams Yard Supervisor Cotton Gin Relationship Specialty Start Date End Date Félix Arteaga MD PCP - General 06/25/05 08/29/14 [facility] [address] [address] documented as of this encounter
--- OUTSIDE RECORDS SUMMARY | 2022-02-09 01:05 | XMS_ITS | Encounter Summary ---
:1975 Author Organization [place] Address [address] [place] [address] Care Team Providers Name Role Phone Félix Arteaga MD Primary Care Provider + Encounter Details Date Type Department Care Team Description 07/03/2006 Results Only [facility] Results MD [place] [facility] [address] [facility] [address] [place], [place] [address] (Wo rk) Social History Tobacco Use Types Packs/Day Years Used Date Never Smoker Alcohol Use Standard Drinks/Week Comments Not Asked 0 (1 standard drink = 0.6 oz pure alcoho l) Sex Assigned at Date Recorded Not on file documented as of this encounter Plan of Treatment Not on filedocumented as of this encounter Procedures Procedure Name Priority Date/Time Associated Diagnosis Comme [facility] RT DUPLEX Routine 07/03/2006 10:41 PM Results for this EXTREM VENOUS,UNI DRAWSTRING KNOTTER procedure are in OR LTD the results section. documented in this encounter Results RT DUPLEX EXTREM VENOUS,UNI OR LTD (07/03/2006 10:41 PM DRAWSTRING KNOTTER) Specimen (Source) Anatomical Collection Method Collection Time Re ceived Time Location / / Volume Laterality 07/03/2006 10:41 PM DRAWSTRING KNOTTER Impressions RADIOLOGY RESULTS - 07/03/2006 10:56 PM DRAWSTRING KNOTTER EXAM: ??Right lower extremity venous ult rasound HISTORY: Right leg pain. FINDINGS: The right leg ??venous ultraso und is negative ??for DVT. ??The veins do ??augment and compress normaly. ??No ??thrombus is seen. IMPRESSION: 1. ?? Negative for Deep Venous Thrombosi s. Rohith August MD SPECIAL IMAGING STUDIES Performing Organization Address City/State/ZIP Code Phon e Number RADIOLOGY RESULTS documented in this encounter Visit Diagnoses Not on filedocumented in this encounter Care Teams Financial Institution Treasurer Relationship Specialty Start Date End Date Félix Arteaga MD PCP - General 06/25/05 08/29/14 [facility] [address] [place] [address] documented as of this encounter
--- OUTSIDE RECORDS SUMMARY | 2022-02-09 01:05 | XMS_ITS | Encounter Summary ---
:1975 Author Organization [place] Address [address] [facility] [place] [address] Care Team Providers Name Role Phone Félix Arteaga MD Primary Care Provider + Encounter Details Date Type Department Care Team Description 08/28/2005 Operative Report Breana Caruso (All Round Logger) MD [place] [place] FINANCIAL COUNSELOR CONSULT [address] [place] [address] (Wo rk) Social History Tobacco Use Types Packs/Day Years Used Date Never Smoker Alcohol Use Standard Drinks/Week Comments Not Asked 0 (1 standard drink = 0.6 oz pure alcoho l) Sex Assigned at Date Recorded Not on file documented as of this encounter Progress Notes Breana Caruso - 08/28/2005 11:21 AM CDT PRELIMINARY PREOPERATIVE DIAGNOSIS: Anterior vaginal wall cyst. POSTOPERATIVE DIAGNOSIS: Anterior vaginal wall cyst. PROCEDURE: Removal of left vaginal wall cyst. SURGEON: Breana Rangel MD ANESTHESIA: General. INDICATIONS FOR SURGERY: A 29-year-old female para 6-0-0-6 with a last menstrual period three weeksago and status post vaginal delivery on 05/14/2005, was found to have a vaginal wall cyst during her and noted again at her examination. The patient states that she has noted some di scomfort during intercourse and is requesting removal of the cyst. 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 The surgical procedure was fully discussed with the patient and the risk of anesthesia, surgery, and postoperative care were all discussed fully with the patient, including risk of infection, bleeding, the possibility of recurrent cyst formation. She understood all of the above well and has given consent to proceed with the operation. OPERATIVE PROCEDURE: The patient was taken to the operating room and after general anesthesia, she was placed in the dorsal lithotomy position. She was prepped and draped in the usual fashion. Examination under anesthesia was performed. A 3 cm smooth-wall cystic structure was noted again, originatingfrom the 1 o'clock position of the vaginal wall, slightly to the left of the urethral meatus. A Marcelo catheter was placed to identified the urethra at all times, and the cyst did not appear to involve the urethra. The vaginal mucosa was incised and the cyst was immediately identified. It was very thin-walled andfilled with clear fluid. Using a Kitner and careful dissection, the cyst was removed. The base of the cyst was ligated with 2-0 Vicryl tie. The vaginal wall defect was closed with interrupted 3-0 Vicryl suture and the vaginal mucosa closed with 3-0 Vicryl suture. Hemostasis was obtained. There were no complications. The estimated blood loss was less than 20 ml. Throughout the procedure, clear yellow urine was obtained through the Marcelo catheter. The Marcelo catheter was removed. The patient was awakened from general anesthesia. Sponge and needle count were reported as correct x2. Therewere no complications. The patient went to recovery room in stable condition. BREANA RANGEL MD MT: [id number] Name: COURTNEY HANSEN MRN: [id number] Account: [id number] : 1975 Procedure Date: 08/28/2005 Document: [id number] documented in this encounter Plan of Treatment Not on filedocumented as of this encounter Visit Diagnoses Not on filedocumented in this encounter Care Teams Automotive Internet Sales Consultant Relationship Specialty Start Date End Date Félix Arteaga MD PCP - General 06/25/05 08/29/14 [facility] [employer] [facility] [address] [place] [address] documented as of this encounter
--- OUTSIDE RECORDS SUMMARY | 2022-02-09 01:05 | XMS_ITS | Encounter Summary ---
:1975 Author Organization [place] Address [address] [facility] [place] [address] Care Team Providers Name Role Phone Félix Arteaga MD Primary Care Provider + Encounter Details Date Type Department Care Team Description 06/20/2006 Delivery Summary [facility] Jared Solis, ([facility]) [facility] OBGYN CONSULT [address] [phone] Social History Tobacco Use Types Packs/Day Years Used Date Never Smoker Alcohol Use Standard Drinks/Week Comments Not Asked 0 (1 standard drink = 0.6 oz pure alcoho l) Sex Assigned at Date Recorded Not on file documented as of this encounter Progress Notes Jared Solis - 07/11/2006 8:54 AM BRACELET MAKER NOVELTY FINAL This patient is a 30-year-old G7, P6-0-0-6 at 38 weeks gestation who was admitted to labor and delivery on 06/19/06 for induction of labor secondary to preeclampsia. This patient's blood pressure has been slowly increasing the last couple of weeks of her and in clinic on the day of admissionwas 148/98. At that time she was also found to have 3+ proteinuria. Labs were performed and were within normal limits with the exception of the proteinuria. This patient's was complicated by: 1. High grade squamous intraepithelial pap smear in 12/08. 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 She will require follow up . 2. Elevated blood pressures the last few weeks of . 3. Grand multiparity. 4. Close spacing with last delivery in May of 2005. FIRST STAGE: The patient again was admitted to labor and delivery on 06/19/06 with a diagnosis of preeclampsia for induction of labor. Her cervix was unfavorable and she was given Cervidil for cervicalripening. On the morning of 06/20/06 the patient's cervix was checked and found to be 2 cm/50%/-2-3. A rtificial rupture of membranes was performed using a scalp electrode at that time with clear fluid. The patient then was started on Pitocin. heart tones were reassuring throughout the first stageof labor. In addition, the patient was started on Magnesium sulfate 4 gram load followed by 2 grams an hour for seizure prophylaxis given the diagnosis of preeclampsia. The patient was given an epidural for pain control. Her maximum Pitocin rate was 8 milliunits a minute. She did progress to completely dilated at 14:45. SECOND STAGE: Preparations were made for delivery and the patient did begin the second stage of labor. She pushed twice and delivered a viable male from the OA position at 14:47. Apgars were 9 at 1 minute and 9 at 5 minutes. Baby weighed 6 pounds 10 ounces. Placenta was then delivered spontaneously intact with a three-vessel cord at 14:52. Examination of the perineum revealed no lacerations. There were no complications during delivery. Estimated blood loss was 300 cc. Mother and baby are stable in the labor suite following delivery. Electronically signed on 07/11/2006 08:53 by JARED SOLIS MD MT: [id number] Name: COURTNEY LIZAMA MRN: [id number] Account: [id number] : 1975 Delivery Date: 06/20/2006 Document: [id number] ELET MAKER NOVELTY documented in this encounter Plan of Treatment Not on filedocumented as of this encounter Visit Diagnoses Not on filedocumented in this encounter Care Teams Teachers Aide Relationship Specialty Start Date End Date Félix Arteaga MD PCP - General 06/25/05 08/29/14 [facility] [address] [place] [place] [address] documented as of this encounter
--- OUTSIDE RECORDS SUMMARY | 2022-02-09 01:05 | XMS_ITS | Encounter Summary ---
:1975 Author Organization [place] Address [address] [place] [address] Care Team Providers Name Role Phone Félix Arteaga MD Primary Care Provider + Encounter Details Date Type Department Care Team Description 07/02/[address] [facility] Damir Arteaga [facility] [place] [address] [place], [place] [address] [address] [phone] [place], [place] [address] (Wo rk) Social History [...] Procedure Name Priority Date/Time Associated Comments Diagnosis ROUTINE UA WITH STAT 07/02/2006 12:30 Results for this MICROSCOPIC PM [facility] procedure are i n the results section. HEMOGRAM DIFFERENTIAL STAT 07/02/2006 12:10 Re sults for this AND PLATELET PM [facility] procedure are i n the results section. HEPATIC FUNCTION Routine 07/02/2006 12:10 Results for this PANEL PM [facility] procedure are i n the results section. BASIC METABOLIC PANEL STAT 07/02/2006 12:10 Re sults for this PM [facility] procedure are i n the results section. GLUCOSE BY METER Routine 07/02/2006 11:35 Results for this AM [facility] procedure are i n the results section. documented in this encounter Results (ABNORMAL) Routine UA with microscopic (07/02/2006 12:30 PM [facility]) Component Value Ref Test [facility] Method Time Signature Source Catheterized MISYS Urine Color Urine Yellow MISYS Appearance Urine Clear MISYS Glucose Urine Negative NEG MISYS mg/dL Bilirubin Urine Negative NEG MISYS Ketones Urine Negative NEG MISYS mg/dL Specific [place] 1.019 1.003 - MISYS Urine 1.035 Blood Urine Trace (A) NEG MISYS pH Urine 5.5 5.0 - MISYS 7.0 pH Protein Albumin 100 (A) NEG MISYS Urine mg/dL Urobilinogen Normal 0.0 - MISYS mg/dL 2.0 mg/dL Nitrite Urine Negative NEG MISYS Leukocyte Negative NEG MISYS Esterase Urine WBC Urine 1 0 - 2 MISYS /HPF RBC Urine 3 (H) 0 - 2 MISYS /HPF Squamous 1 0 - 1 MISYS Epithelial /HPF /HPF Urine Bacteria Urine Few (A) NEG /HPF MISYS Mucous Urine Present (A) NEG /LPF MISYS Specimen Anatomical Collection Method Collection Time Receive d Time (Source) Location / / Volume Laterality 07/02/2006 12:30 07/02/2006 PM [facility] 11:59 AM [facility] Loc King MD LAB - URINE ORDERABLES Performing Organization Address City/State/ZIP Code Phon e Number MISYS (ABNORMAL) Hemogram differential and platelet (07/02/2006 12:10 PM [facility]) P athologist Signature MCV 86 78 - 100 MISYS fl MCH 29.1 26.5 - MISYS 33.0 pg MCHC 34.1 32.0 - MISYS 36.0 g/dL RDW 12.5 10.0 - MISYS 15.0 % WBC 20.7 (H) 4.0 - 11.0 MISYS 10e9/L RBC Count 5.39 (H) 3.8 - 5.2 MISYS 10e12/L Hemoglobin 15.7 11.7 - MISYS 15.7 g/dL Hematocrit 46.1 35.0 - MISYS 47.0 % % Neutrophils 93 (H) 40 - 75 % MISYS Comment: Increased Bands % Lymphocytes 4 (L) 20 - 48 % MISYS % Monocytes 2 0 - 12 % MISYS % Metamyelocytes 1 (H) 0 % MISYS Platelet Count 444 150 - 450 10e9/L MISYS Absolute Neutrophil 19.3 (H) 1.6 - 8.3 10e9/L MIS YS Absolute Lymphocytes 0.8 0.8 - 5.3 10e9/L [place] SYS Absolute Monocytes 0.4 0.0 - 1.3 10e9/L MISY S Absolute Metamyelocytes 0.2 10e9/L MISYS Platelet Estimate Normal MISYS Diff Method Manual Differential MISYS RBC Morphology Consistent with reported results MISYS Specimen Anatomical Collection Method Collection Time Receive d Time (Source) Location / / Volume Laterality 07/02/2006 12:10 07/02/2006 PM [facility] 11:59 AM [facility] Loc iKng MD LAB - BLOOD ORDERABLES Performing Organization Address City/[facility] Code Phon e Number MISYS (ABNORMAL) Basic metabolic panel (07/02/2006 12:10 PM [facility]) Analysis Performed At Patho logist Time Signature Sodium 145 (H) 133 - 144 MISYS mmol/L Potassium 3.7 3.4 - 5.3 MISYS mmol/L Chloride 102 94 - 109 MISYS mmol/L Carbon Dioxide 23 20 - 32 MISYS mmol/L Glucose 106 60 - 110 MISYS mg/dL Urea Nitrogen 19 5 - 24 MISYS mg/dL Creatinine 1.82 (H) 0.60 - MISYS 1.30 mg/dL GFR Estimate 34 (L) >60 MISYS mL/min/1.7 m2 GFR Estimate If 41 (L) >60 MISYS Black mL/min/1.7 m2 Calcium 10.6 (H) 8.5 - 10.4 MISYS mg/dL Anion Gap 20 (H) 6 - 17 MISYS mmol/L Specimen Anatomical Collection Method Collection Time Receive d Time (Source) Location / / Volume Laterality 07/02/2006 12:10 07/02/2006 PM [facility] 11:59 AM [facility] Loc King MD LAB - BLOOD ORDERABLES Performing Organization Address City/State/ZIP Code Phon e Number MISYS (ABNORMAL) Hepatic panel (07/02/2006 12:10 PM [facility]) [facility] gist Method Time Signature AST 54 (H) 0 - 45 U/L MISYS Protein Total 10.8 (H) 6.0 - 8.2 MISYS g/dL Albumin 4.9 (H) 3.3 - 4.6 MISYS g/dL ALT 38 0 - 50 U/L MISYS Alkaline 166 (H) 40 - 150 MISYS Phosphatase U/L Bilirubin 0.0 0.0 - 0.3 MISYS Conjugated mg/dL Bilirubin Delta 0.0 0.0 - 0.4 MISYS mg/dL Bilirubin Total 1.1 0.2 - 1.3 MISYS mg/dL Specimen Anatomical Collection Method Collection Time Receive d Time (Source) Location / / Volume Laterality 07/02/2006 12:10 07/02/2006 1:40 PM [facility] PM [facility] Loc King MD LAB - BLOOD ORDERABLES Performing Organization Address City/State/ZIP Code Phon e Number MISYS (ABNORMAL) Glucose by meter (07/02/2006 11:35 AM [facility]) P athologist Signature Glucose 129 (H) 60 - 110 MISYS mg/dL Comment: RN/MD NOTIFIED Specimen Anatomical Collection Method Collection Time Receive d Time (Source) Location / / Volume Laterality 07/02/2006 11:35 07/03/2006 AM [facility] 10:38 AM [facility] Félix Arteaga MD LAB - BEAKER POCT Performing Organization Address City/State/ZIP Code Phon e Number MISYS documented in this encounter Visit Diagnoses Not on filedocumented in this encounter Care Teams End Trimmer Relationship Specialty Start Date End Date Félix Arteaga MD PCP - General 06/25/05 08/29/14 [facility] [address] [place] [address] documented as of this encounter
--- OUTSIDE RECORDS SUMMARY | 2022-02-09 01:05 | XMS_ITS | Encounter Summary ---
:1975 Author Organization [place] Address [address] [facility] [place] [address] Care Team Providers Name Role Phone Félix Arteaga MD Primary Care Provider + Encounter Details Date Type Department Care Team Description 11/22/2006 Orders Only [facility] Roman PERS H X UTI ([facility]) [address] [place] [phone] [phone] Social History Tobacco Use Types Packs/Day Years Used Date Never Smoker Alcohol Use Standard Drinks/Week Comments Not Asked 0 (1 standard drink = 0.6 oz pure alcoho l) Sex Assigned at Date Recorded Not on file documented as of this encounter Plan of Treatment Not on filedocumented as of this encounter Visit Diagnoses Diagnosis Personal history of urinary (tract) infe ction - Primary documented in this encounter Care Teams Merchandiser Retail Representative Relationship Specialty Start Date End Date Félix Arteaga MD PCP - General 06/25/05 08/29/14 [facility] [address] [place] [address] documented as of this encounter
--- OUTSIDE RECORDS SUMMARY | 2022-02-09 01:05 | XMS_ITS | Encounter Summary ---
:1975 Author Organization [place] Address [address] [place] [address] Care Team Providers Name Role Phone Félix Arteaga MD Primary Care Provider + Encounter Details Date Type Department Care Team Description 06/16/2006 Historic Results INTERFACED REPORT Tea Mckenna MD Social History Tobacco Use Types Packs/Day Years Used Date Never Smoker Alcohol Use Standard Drinks/Week Comments Not Asked 0 (1 standard drink = 0.6 oz pure alcoho l) Sex Assigned at Date Recorded Not on file documented as of this encounter Plan of Treatment Not on filedocumented as of this encounter Procedures Procedure Name Priority Date/Time Associated Comments Diagnosis URIC ACID STAT 06/16/2006 3:40 PM Results f or this SEXTON HELPER procedure are i n the results section. UREA NITROGEN (BUN) STAT 06/16/2006 3:40 PM Re sults for this SEXTON HELPER procedure are i n the results section. PLATELET COUNT STAT 06/16/2006 3:40 PM Results for this SEXTON HELPER procedure are i n the results section. CREATININE Routine 06/16/2006 3:40 PM Results f or this SEXTON HELPER procedure are i n the results section. CK TOTAL STAT 06/16/2006 3:40 PM Results f or this SEXTON HELPER procedure are i n the results section. AST STAT 06/16/2006 3:40 PM Results f or this SEXTON HELPER procedure are i n the results section. ALT STAT 06/16/2006 3:40 PM Results f or this SEXTON HELPER procedure are i n the results section. ROUTINE UA WITH Routine 06/16/2006 2:55 PM Result s for this MICROSCOPIC SEXTON HELPER procedure are i n the results section. documented in this encounter Results AST (06/16/2006 3:40 PM SEXTON HELPER) P athologist Signature AST 31 0 - 45 U/L MISYS Specimen Anatomical Collection Method Collection Time Receive d Time (Source) Location / / Volume Laterality 06/16/2006 3:40 PM 7 3:13 SEXTON HELPER PM SEXTON HELPER Tea Mckenna MD LAB - BLOOD ORDERABLES Performing Organization Address City/[facility]/ZIP Code Phon e Number MISYS ALT (06/16/2006 3:40 PM SEXTON HELPER) P athologist Signature ALT 26 0 - 50 U/L MISYS Specimen Anatomical Collection Method Collection Time Receive d Time (Source) Location / / Volume Laterality 06/16/2006 3:40 PM 7 3:13 SEXTON HELPER PM SEXTON HELPER Tea Mckenna MD LAB - BLOOD ORDERABLES Performing Organization Address [facility] Phon e Number MISYS Uric acid (06/16/2006 3:40 PM SEXTON HELPER) athologist Signature Uric Acid 5.8 2.5 - 6.2 MISYS mg/dL Specimen Anatomical Collection Method Collection Time Receive d Time (Source) Location / / Volume Laterality 06/16/2006 3:40 PM 7 3:13 SEXTON HELPER PM SEXTON HELPER Tea Mckenna MD LAB - BLOOD ORDERABLES Performing Organization Address City/[facility] Code Phon e Number MISYS Platelet count (06/16/2006 3:40 PM SEXTON HELPER) P athologist Signature Platelet Count 183 150 - 450 MISYS 10e9/L Specimen Anatomical Collection Method Collection Time Receive d Time (Source) Location / / Volume Laterality 06/16/2006 3:40 PM 7 3:13 SEXTON HELPER PM SEXTON HELPER Tea Mckenna MD LAB - BLOOD ORDERABLES Performing Organization Address City/[facility]/ZIP Code Phon e Number MISYS CK total (06/16/2006 3:40 PM SEXTON HELPER) P athologist Signature CK Total 108 32 - 200 U/L MISYS Specimen Anatomical Collection Method Collection Time Receive d Time (Source) Location / / Volume Laterality 06/16/2006 3:40 PM 7 3:13 SEXTON HELPER PM SEXTON HELPER Tea Mckenna MD LAB - BLOOD ORDERABLES Performing Organization Address City/State/ZIP Code Phon e Number MISYS Urea nitrogen (06/16/2006 3:40 PM SEXTON HELPER) athologist Signature Urea Nitrogen 6 5 - 24 MISYS mg/dL Specimen Anatomical Collection Method Collection Time Receive d Time (Source) Location / / Volume Laterality 06/16/2006 3:40 PM 7 3:13 SEXTON HELPER PM SEXTON HELPER Tea Mckenna MD LAB - BLOOD ORDERABLES Performing Organization Address City/State/ZIP Code Phon e Number MISYS (ABNORMAL) Creatinine (06/16/2006 3:40 PM SEXTON HELPER) Analysis Performed At [facility] logist Time Signature Creatinine 0.54 (L) 0.60 - MISYS 1.30 mg/dL GFR Estimate >90 >60 MISYS mL/min/1.7 m2 GFR Estimate If >90 >60 MISYS Black mL/min/1.7 m2 Specimen Anatomical Collection Method Collection Time Receive d Time (Source) Location / / Volume Laterality 06/16/2006 3:40 PM 7 4:20 SEXTON HELPER PM SEXTON HELPER Tea Mckenna MD LAB - BLOOD ORDERABLES Performing Organization Address City/[facility]/ZIP Code Phon e Number MISYS (ABNORMAL) Routine UA with microscopic (06/16/2006 2:55 PM SEXTON HELPER) [facility] gist Method Time Signature Source Midstream MISYS Urine Color Urine Yellow MISYS Appearance Urine Clear MISYS Glucose Urine Negative NEG mg/dL MISYS Bilirubin Urine Negative NEG MISYS Ketones Urine Negative NEG mg/dL MISYS Specific [place] 1.006 1.003 - MISYS Urine 1.035 Blood Urine Negative NEG MISYS pH Urine 6.0 5.0 - 7.0 MISYS pH Protein Albumin 10 (A) NEG mg/dL MISYS Urine Urobilinogen Normal 0.0 - 2.0 MISYS mg/dL mg/dL Nitrite Urine Negative NEG MISYS Leukocyte Negative NEG MISYS Esterase Urine WBC Urine 1 0 - 2 MISYS /HPF RBC Urine 0 0 - 2 MISYS /HPF Squamous 4 (H) 0 - 1 MISYS Epithelial /HPF /HPF Urine Transitional Epi <1 0 - 1 MISYS /HPF Mucous Urine Present (A) NEG /LPF MISYS Specimen Anatomical Collection Method Collection Time Receive d Time (Source) Location / / Volume Laterality 06/16/2006 2:55 PM 7 3:09 SEXTON HELPER PM SEXTON HELPER Tea Mckenna MD LAB - URINE ORDERABLES Performing Organization Address City/State/ZIP Code Phon e Number MISYS documented in this encounter Visit Diagnoses Not on filedocumented in this encounter Care Teams Winch Driver Relationship Specialty Start Date End Date Félix Arteaga MD PCP - General 06/25/05 08/29/14 [facility] [address] [place] [address] documented as of this encounter
--- OUTSIDE RECORDS SUMMARY | 2022-02-09 01:05 | XMS_ITS | Encounter Summary ---
:1975 Author Organization [place] Address [address] [place] [address] Care Team Providers Name Role Phone Félix Arteaga MD Primary Care Provider + Encounter Details Date Type Department Care Team Description 07/04/2006 Historic Results [facility] Damir Arteaga [facility] [place] [address] [place], [place] [address] [address] [phone] [place], [place] [address] (Wo rk) Social History [...] Date/Time Associated Diagnosis Comme nts HEMOGLOBIN Routine 07/04/2006 6:45 AM Results f or this PIN ATTACHER procedure are i n the results section . documented in this encounter Results (ABNORMAL) Hemoglobin (07/04/2006 6:45 AM PIN ATTACHER) P athologist Signature Hemoglobin 11.3 (L) 11.7 - 15.7 MISYS g/dL Specimen Anatomical Collection Method Collection Time Receive d Time (Source) Location / / Volume Laterality 07/04/2006 6:45 AM 7 2:45 PIN ATTACHER AM PIN ATTACHER Félix Arteaga MD LAB - BLOOD ORDERA BLES Performing Organization Address City/State/ZIP Code Phon e Number MISYS documented in this encounter Visit Diagnoses Not on filedocumented in this encounter Care Teams Internet Sales Associate Relationship Specialty Start Date End Date Félix Arteaga MD PCP - General 06/25/05 08/29/14 [facility] [address] [place] [address] documented as of this encounter
--- OUTSIDE RECORDS SUMMARY | 2022-02-09 01:05 | XMS_ITS | Encounter Summary ---
:1975 Author Organization [place] Address [address] [place] [address] Care Team Providers Name Role Phone Félix Arteaga MD Primary Care Provider + Encounter Details Date Type Department Care Team Description 05/16/2005 Historic Results INTERFACED REPORT Negrita Renee MD [facility] OBGYN CONSULTS [address] [place], [place] [address] (Wo rk) Social History Tobacco Use Types [...] Date/Time Associated Diagnosis Comme nts HEMOGLOBIN Routine 05/16/2005 6:30 AM Results f or this TRAUMA PROGRAM MANAGER procedure are i n the results section . documented in this encounter Results (ABNORMAL) Hemoglobin (05/16/2005 6:30 AM TRAUMA PROGRAM MANAGER) P athologist Signature Hemoglobin 10.7 (L) 11.7 - 15.7 MISYS g/dL Specimen (Source) Anatomical Collection Method Collection Time Re ceived Time Location / / Volume Laterality 05/16/2005 6:30 AM 6 TRAUMA PROGRAM MANAGER Shanel Renee MD LAB - BLOOD ORDERABLES Performing Organization Address City/State/ZIP Code Phon e Number MISYS documented in this encounter Visit Diagnoses Not on filedocumented in this encounter Care Teams Inspector Final Assembly Mechanical Relationship Specialty Start Date End Date Félix Arteaga MD PCP - General 06/25/05 08/29/14 [facility] [address] [place] [address] documented as of this encounter
--- OUTSIDE RECORDS SUMMARY | 2022-02-09 01:05 | XMS_ITS | Encounter Summary ---
:1975 Author Organization [place] Address [address] [place] [address] Care Team Providers Name Role Phone Félix Arteaga MD Primary Care Provider + Encounter Details Date Type Department Care Team Description 06/19/2006 Historic Results [place] [facility] MD Sasha [address] [address] [place] [address] [phone] (Wo rk) Social History Tobacco Use Types [...] Date/Time Associated Comments Diagnosis ROUTINE UA WITH Routine 06/19/2006 5:00 PM Result s for this MICROSCOPIC POURING CRANE OPERATOR procedure are i n the results section. HEMOGRAM AND PLATELET STAT 06/19/2006 3:25 PM Results for this POURING CRANE OPERATOR procedure are i n the results section. URIC ACID STAT 06/19/2006 3:25 PM Results f or this POURING CRANE OPERATOR procedure are i n the results section. UREA NITROGEN (BUN) STAT 06/19/2006 3:25 PM Re sults for this POURING CRANE OPERATOR procedure are i n the results section. CREATININE STAT 06/19/2006 3:25 PM Results f or this POURING CRANE OPERATOR procedure are i n the results section. AST STAT 06/19/2006 3:25 PM Results f or this POURING CRANE OPERATOR procedure are i n the results section. ALT STAT 06/19/2006 3:25 PM Results f or this POURING CRANE OPERATOR procedure are i n the results section. documented in this encounter Results (ABNORMAL) Routine UA with microscopic (06/19/2006 5:00 PM POURING CRANE OPERATOR) [facility] Method Time Signature Source Midstream MISYS Urine Color Urine Yellow MISYS Appearance Urine Slightly MISYS Cloudy Glucose Urine Negative NEG mg/dL MISYS Bilirubin Urine Negative NEG MISYS Ketones Urine Negative NEG mg/dL MISYS Specific [place] 1.014 1.003 - MISYS Urine 1.035 Blood Urine Negative NEG MISYS pH Urine 6.5 5.0 - 7.0 MISYS pH Protein Albumin 100 (A) NEG mg/dL MISYS Urine Urobilinogen 2.0 0.0 - 2.0 MISYS mg/dL mg/dL Nitrite Urine Negative NEG MIS[facility] Leukocyte Small (A) NEG MIS[facility] Esterase Urine WBC Urine 6 (H) 0 - 2 MISYS /HPF RBC Urine 2 0 - 2 MISYS /HPF Squamous 14 (H) 0 - 1 MIS[facility] Epithelial /HPF /HPF Urine Transitional Epi <1 0 - 1 MISYS /HPF Mucous Urine Present (A) NEG /LPF MISYS Specimen Anatomical Collection Method Collection Time Receive d Time (Source) Location / / Volume Laterality 06/19/2006 5:00 PM 7 5:13 POURING CRANE OPERATOR PM POURING CRANE OPERATOR Snow Rocha MD LAB - URINE ORDERABLES Performing Organization Address City/State/ZIP Code Phon e Number MISYS ALT (06/19/2006 3:25 PM POURING CRANE OPERATOR) athologist Signature ALT 26 0 - 50 U/L MISYS Specimen Anatomical Collection Method Collection Time Receive d Time (Source) Location / / Volume Laterality 06/19/2006 3:25 PM 7 3:04 POURING CRANE OPERATOR PM POURING CRANE OPERATOR Snow Rocha MD LAB - BLOOD ORDERABLES Performing Organization Address City/State/ZIP Code Phon e Number MISYS AST (06/19/2006 3:25 PM POURING CRANE OPERATOR) athologist Signature AST 35 0 - 45 U/L MISYS Specimen Anatomical Collection Method Collection Time Receive d Time (Source) Location / / Volume Laterality 06/19/2006 3:25 PM 7 3:04 POURING CRANE OPERATOR PM POURING CRANE OPERATOR Snow Rocha MD LAB - BLOOD ORDERABLES Performing Organization Address City/State/ZIP Code Phon e Number MISYS (ABNORMAL) Uric acid (06/19/2006 3:25 PM POURING CRANE OPERATOR) athologist Signature Uric Acid 6.6 (H) 2.5 - 6.2 MISYS mg/dL Specimen Anatomical Collection Method Collection Time Receive d Time (Source) Location / / Volume Laterality 06/19/2006 3:25 PM 7 3:04 POURING CRANE OPERATOR PM POURING CRANE OPERATOR Snow Rocha MD LAB - BLOOD ORDERABLES Performing Organization Address City/State/ZIP Code Phon e Number MISYS Creatinine (06/19/2006 3:25 PM POURING CRANE OPERATOR) athologist Signature Creatinine 0.62 0.60 - MISYS 1.30 mg/dL GFR Estimate >90 >60 MISYS mL/min/1.7 m2 GFR Estimate If >90 >60 MISYS Black mL/min/1.7 m2 Specimen Anatomical Collection Method Collection Time Receive d Time (Source) Location / / Volume Laterality 06/19/2006 3:25 PM 7 3:04 POURING CRANE OPERATOR PM POURING CRANE OPERATOR Snow Rocha MD LAB - BLOOD ORDERABLES Performing Organization Address City/State/ZIP Code Phon e Number MISYS (ABNORMAL) Hemogram and platelet (06/19/2006 3:25 PM POURING CRANE OPERATOR) Analysis Performed At [facility] logist Time Signature MCV 89 78 - 100 MISYS fl MCH 29.9 26.5 - MISYS 33.0 pg MCHC 33.7 32.0 - MISYS 36.0 g/dL RDW 12.4 10.0 - MISYS 15.0 % WBC 7.9 4.0 - 11.0 MISYS 10e9/L RBC Count 3.43 (L) 3.8 - 5.2 MISYS 10e12/L Hemoglobin 10.3 (L) 11.7 - MISYS 15.7 g/dL Hematocrit 30.4 (L) 35.0 - MISYS 47.0 % Platelet Count 174 150 - 450 MISYS 10e9/L Specimen Anatomical Collection Method Collection Time Receive d Time (Source) Location / / Volume Laterality 06/19/2006 3:25 PM 7 3:04 POURING CRANE OPERATOR PM POURING CRANE OPERATOR Snow Rocha MD LAB - BLOOD ORDERABLES Performing Organization Address City/[facility]/ZIP Code Phon e Number MISYS Urea nitrogen (06/19/2006 3:25 PM POURING CRANE OPERATOR) P athologist Signature Urea Nitrogen 7 5 - 24 MISYS mg/dL Specimen Anatomical Collection Method Collection Time Receive d Time (Source) Location / / Volume Laterality 06/19/2006 3:25 PM 7 3:04 POURING CRANE OPERATOR PM POURING CRANE OPERATOR Snow Rocha MD LAB - BLOOD ORDERABLES Performing Organization Address City/State/ZIP Code Phon e Number MISYS documented in this encounter Visit Diagnoses Not on filedocumented in this encounter Care Teams [employer] Pilot Relationship Specialty Start Date End Date Félix Arteaga MD PCP - General 06/25/05 08/29/14 [facility] [address] [place] [address] documented as of this encounter
--- OUTSIDE RECORDS SUMMARY | 2022-02-09 01:05 | XMS_ITS | Encounter Summary ---
:1975 Author Organization [place] Address [address] [place] [address] Care Team Providers Name Role Phone Félix Arteaga MD Primary Care Provider + Encounter Details Date Type Department Care Team Description 08/28/2005 Historic Results INTERFACED REPORT Ekaterina Caruso MD [facility] R DEVELOPER CONSULT [address] [place] [address] (Wo rk) Social History [...] Associated Comments Diagnosis HCG QUALITATIVE URINE Routine 08/28/2005 8:00 AM Results for this CDT procedure are i n the results section. HISTOPATHOLOGY Routine 08/28/2005 12:00 Results f or this AM CDT procedure are i n the results section. documented in this encounter Results HCG qualitative urine (08/28/2005 8:00 AM CDT) P athologist Signature HCG Qual Urine Negative NEG MISYS Specimen Anatomical Collection Method Collection Time Receive d Time (Source) Location / / Volume Laterality 08/28/2005 8:00 AM 6 8:08 CDT AM CDT Breana Rnagel MD LAB - URINE ORDERABLES Performing Organization Address City/State/ZIP Code Phon e Number MISYS Histopathology (08/28/2005 12:00 AM CDT) Component Value Ref Test Analysis Performed At [facility] gist Range Method Time Signature Copath Report CASE: [id number] ^ COPATH Patient Name: COURTNEY HANSEN MR#: [id number] Specimen #: [id number] Collected: 08/28/2005 Received: 08/28/2005 Reported: 08/29/2005 15:36 Ordering Phy(s): BREANA RANGEL SPECIMEN(S): Vaginal wall cyst FINAL DIAGNOSIS: Vagina, excisional biopsy - Benign epithelial cyst. Electronically signed out by: Danis Wan M.D. CLINICAL HISTORY: Vaginal cyst. GROSS: The specimen, labeled vagina cyst wall, consists of a 1.5 x 1 x 0.5cm piece of red-amezquita fibromembranous tissue is completely embedd ed in one cassette. ??SML/kd MICROSCOPIC: The specimen is moderately thick fibromuscular cyst wall wit h a lining comprised of cuboidal non-ciliated cells without evidence of squamous metaplasia, consistent with mesonephric type cyst. SML/sg DT/08-29-05 TESTING LAB LOCATION: [address] ??[phone] COLLECTION SITE: Client: [facility] Location: SDS (R) Specimen (Source) Anatomical Collection Method Collection Time Re ceived Time Location / / Volume Laterality 08/28/2005 08/29/2005 3:37 PM CDT Breana Rangel MD LAB - COPATH SPECIAL DIAG O RDERABLES Performing Organization Address City/State/ZIP Code Phon e Number COPATH documented in this encounter Visit Diagnoses Not on filedocumented in this encounter Care Teams Senior Embedded Software Engineer Relationship Specialty Start Date End Date Félix Arteaga MD PCP - General 06/25/05 08/29/14 [facility] [address] [place] [address] documented as of this encounter
--- OUTSIDE RECORDS SUMMARY | 2022-02-09 01:05 | XMS_ITS | Encounter Summary ---
:1975 Author Organization [place] Address [address] [place] [address] Care Team Providers Name Role Phone Félix Arteaga MD Primary Care Provider + Encounter Details Date Type Department Care Team Description 07/04/2006 Historic Notes INTERFACED REPORT Interface, Transcript onMD Social History Tobacco Use Types Packs/Day Years Used Date Never Smoker Alcohol Use Standard Drinks/Week Comments Not Asked 0 (1 standard drink = 0.6 oz pure alcoho l) Sex Assigned at Date Recorded Not on file documented as of this encounter Progress Notes Interface, Chair Trimmer - 07/23/2010 7:27 PM CDT Patient Status Patient Status Physical status - Stable (s/s of potential complications absent or manageable) Psychosocial status - Stable Discharge Planning Patient Care Unit - [facility] U Phone Number - [phone] Discharge To - Home Method of discharge - Ambulatory Transportation - Private Follow Up Care Primary physician name - Chandler When to see physician - 1-2 weeks Kathia Pearce (RN) Author: - Patient Status, Discharge Planning, Follow Up Care Entered: - Patient Status, Discharge Planning, Follow Up Care documented in this encounter Plan of Treatment Not on filedocumented as of this encounter Visit Diagnoses Not on filedocumented in this encounter Care Teams Component Design Engineer Relationship Specialty Start Date End Date Félix Arteaga MD PCP - General 06/25/05 08/29/14 [facility] [address] [place] [address] documented as of this encounter
--- OUTSIDE RECORDS SUMMARY | 2022-02-09 01:06 | XMS_ITS ---
:1975 Author Care Team Providers Name Role Phone Kendra Solis Primary Care Provider Unavailable Allergies Code Code System Name Reaction Severity Status Onset [id number] RxNorm Compazine ? ? Active ? Medications Name Status Start Date Stop Date ? ? amoxicillin 500 mg tablet Active ? Not av ailable TAKE 1 TABLET BY MOUTH THREE TIMES DAILY UNTIL GONE amoxicillin 875 mg tablet Active ? Not av ailable TAKE 1 TABLET BY MOUTH TWICE DAILY UNTIL GONE amoxicillin 875 mg-potassium clavulanate 125 mg tablet Active ? Not available TAKE 1 TABLET BY MOUTH TWICE DAILY cephalexin 500 mg capsule Active ? Not av ailable TAKE 1 CAPSULE BY MOUTH EVERY 8 HOURS UNTIL GONE hydrocodone 5 mg-acetaminophen 325 mg tablet Active ? Not available ketorolac 10 mg tablet Active ? Not avail able TAKE 1 TABLET BY MOUTH THREE TIMES DAILY NEEDED Lidocaine Viscous 2 % mucosal solution Active ? Not available RINSE WITH 1 TABLESPOOON NEEDED FOR DISCOMFORT methylprednisolone 4 mg tablets in a dose pack Active ? Not available TAKE BY MOUTH DIRECTED ON INSIDE OF PACKAGE Microgestin 1.5/30 (21) 1.5 mg-30 mcg tablet Active ? Not available TAKE 1 TABLET BY MOUTH ONCE DAILY CONTINUOUSLY ondansetron 4 mg disintegrating tablet Active ? Not available DISSOLVE 1 TABLET IN MOUTH EVERY 8 HOURS NEEDED oxycodone 5 mg tablet Active ? Not availa ble Problems Name Status Onset Date Source ? Menstruation Finding Active 09/27/2010 History Radiology Result Abnormal Active 09/27/2010 Histor y History of Dysplasia of Cervix Active ? H istory Procedures Date Name Performed by ? 11/20/2010 Cervical Electroconization Information n ot available Notes: *Surgery Date: 11/20 *Notes: Dr. Bay, SAMY III negative margins, paps wnl since ? Appendectomy Information not avai lable Notes: *Surgery Date: 12/12 ? Endometrial Biopsy Information not avai lable Notes: *Surgery Date: 08/23 *Notes: Scant distrupted fragments of endometrium with breakdown, negative for hyperplasia and malignancy ? Laparoscopy Information not avai lable Notes: *Surgery Date: 10/03 10/13 *Notes: Colpo with bx's, Operative HSC with polypectomy, D&C, DX Laparoscopy for ASC-H on pap, Thickened end ? Loop Electrosurgical Excision Procedure Information not available Notes: *Surgery Date: 07/10/04 *Notes: C IN II-III, endo margin HGSIL ([place] ? Colposcopy of Cervix Information not jorge luis ilable Notes: *Notes: *1-05 SAMY I II *10-18-10 (done in OR at [facility]) SAMY III in ECC and endometrial curettings -Dr Baez ? Hemorrhoidectomy Information not avai lable Notes: *Surgery Date: 08/24/97 *Notes: thrombosed external hemorrhoid 08/11/2020 , Transvaginal [id number] a [address] [place] [address] 1 00 JOSELITO Ordoñez [phone] (Work Place) Notes: 10/01/2019: *Procedure Name: Hy steroscopy - D & C 12/13/2019: *Procedure Name: *OTHER POURER BULL LADLE Surgery Results Lab Results None recorded. Past Encounters 08/11/2020 Anemia; Abdominal Pain; Umbilical Hernia ; Menorrhagia Wyatt Tovar DO: [address] [place] [address], [facility] [address], [place] [address], Ph. 08/11/2020 Pain in Pelvis Lyric Hernandez MD: [address], [facility] [address], [place] [address], Ph. Social History Tobacco Smoking Status Former Smoker Notes: Tobacco *Status: Former *Note: 03/01/2014 - Vaccine List None recorded. Plan of Care Reminders Provider Appointments None recorded. ? ? Lab None recorded. ? ? Referral None recorded. ? ? Procedures None recorded. ? ? Surgeries None recorded. ? ? Imaging None recorded. ? ? Vitals 08/11/2020 11:15AM G_OFFICE VISIT Height Weight BMI Blood Pressure 5 ft 3.96 in 170.8 lbs 29.4 kg/m2 134/84 mm[Hg] 09/22/2019 Height Weight BMI Blood Pressure 5 ft 3.96 in 163 lbs 27.98 kg/m2 124/78 mm[Hg] 08/25/2019 Height Weight BMI Blood Pressure 5 ft 3.96 in 165.5 lbs 28.41 kg/m2 122/68 mm[Hg] 08/24/2019 Height Weight BMI Blood Pressure 5 ft 3.96 in 166.5 lbs 28.58 kg/m2 104/68 mm[Hg] 09/22/2014 Height Weight BMI Blood Pressure 5 ft 3.96 in 154 lbs 26.43 kg/m2 132/82 mm[Hg] 03/02/2014 Height Blood Pressure 5 ft 3.96 in 128/84 mm[Hg] 10/11/2010 Height Weight BMI Blood Pressure 5 ft 3.96 in 142 lbs 24.37 kg/m2 114/62 mm[Hg] 09/27/2010 Height Weight BMI Blood Pressure 5 ft 3.96 in 142 lbs 24.37 kg/m2 122/74 mm[Hg]
[2022-02-09 01:19] LABS: Troponin I* < 0.01 ng/mL (0.01-0.04)
[2022-02-09 01:23] LABS: D Dimer Quantitative* < 0.27 ug/ml (0.00-0.50); SARS PCR* Negative SARS-CoV-2 (Negative)
[2022-02-09 01:34] VITALS: BP 135/79; PULSE 79; RESP 16; TEMP 36.7; O2SAT 100
[2022-02-09] MEDS: HYDROCODONE-ACETAMIN 5-325 MG 1 TAB PO (01:52)
[2022-02-09 01:58] VITALS: BP 135/79; PULSE 79; RESP 16; TEMP 36.7
== END 2022-02-09 01:58 | disposition home or self-care (01) ==
PROVIDERS: Emergency Provider Internal Medicine
DX: R07.9 Chest pain, unspecified (principal)
CPT/HCPCS: 36415; 71045; 80048; 84484; 85025; 85379; 87635; 93005; 94761; 99283; 99284; 99285; A9270